=== PATIENT | female | born 1955 | race Caucasian/White ===

== ENCOUNTER 2016-05-13 16:03 | Inpatient (IN) | payer OTHER ==
[~2016-05-13] VITALS: Ht 160 cm; Wt 108.1 kg
[~2016-05-13 16:03] MED LIST: BUPR150CR PO; CARV25TA PO; CLIN1CAP6 PO; CYMB30CA PO; FURO1TAB62 PO; GETGO ROLLING W1 MI1; HUMALOG SQ; LACTCHW3 CHEW; LANTUS2P SQ; LEVO-154 PO; LIOT5TAB3 PO; LOSA100T PO; NAPR250T57 PO; OXYC1TAB63 PO
[2016-05-13 16:05] VITALS: BP 168/78; PULSE 75; RESP 20; TEMP 97.8; O2SAT 99
--- NOTE | 2016-05-13 16:17 | PD ---
HPI Chief Complaint: Skin Problem Time Seen by Provider: 16:17 Travel History International Travel<30 days: No Contact w/Intl Traveler<30days: No Traveled to known affect area: No History of Present Illness HPI 60-year-old female with history of hypothyroidism, hypertension, ejection fraction of 30-35% following a reaction to CT contrast, diabetes, PAD, chronic I lateral lower extremity wounds, presents to the emergency department today for evaluation of severe bilateral lower extremity pain, worsening wounds, and cellulitis. Patient states she cannot get her pain under control. She states she has been taking Lortab as prescribed as well as NSAIDs "by the handful." Patient saw her primary care provider today Dr. Murillo who sent her to the emergency department. Patient was recently hospitalized and discharged April 25 for similar complaint. Patient reports no fever or chills. States that the right lower extremity began having weeping and yellow crusting today. She states the erythema is worsening in the left lower extremity. Patient states her blood glucoses been controlled. She fell at her discharge instructions that she was supposed to. She denies any other symptoms at this time. PFSH Past Medical History Hx Anticoagulant Therapy: No Cancer: No Cardiovascular Problems: Yes (Low EF) Diabetes: Yes Genitourinary: No Hiatal Hernia: Yes Hypertension: Yes Musculoskeletal: No Neurologic: No Psychiatric: No Reproductive: No Respiratory: No Integumentary: Yes (Chronic wounds to LE's) Immunizations Current: Yes Thyroid Disease: Yes (Hypo-) Menopausal: Yes : 2 Para: 2 Past Surgical History Abdominal Surgery: Yes (Umb. hernia repair w/ mesh) Cholecystectomy: Yes Gynecologic Surgery: Yes ((L) oophorectomy ) Social History Alcohol Use: No Tobacco Use: No Substance Use: No Allergies-Medications (Allergen,Severity, Reaction): Coded Allergies: Contrast Media (Verified Allergy, Severe, Flash pulmonary edema , 05/13/16 ) PEANUTS (Verified Allergy, Severe, rash, 05/13/16) Reported Meds & Prescriptions Reported Meds & Active Scripts Active Naprosyn (Naproxen) 250 Mg Tab 250 Mg PO BID Lactinex (Lactobacillus Acidophilus) 1 Chew 1 Tab CHEW TID Clindamycin (Clindamycin HCl) 300 Mg Cap 450 Mg PO Q6H Oxycodone-Acetaminophen 5-325 mg Tab 1 Tab PO Q4H PRN Reported Levothyroxine (Levothyroxine Sodium) 175 Mcg Tab 175 Mcg PO DAILY Liothyronine (Liothyronine Sodium) 5 Mcg Tab 5 Mcg PO DAILY Lasix (Furosemide) 20 Mg Tab 20 Mg PO DAILY Losartan (Losartan Potassium) 100 Mg Tab 100 Mg PO DAILY Cymbalta DR (Duloxetine HCl) 30 Mg Capdr 30 Mg PO BID Wellbutrin SR 12 HR (Bupropion HCl) 150 Mg Tab 150 Mg PO Q12HR Carvedilol 25 Mg Tab 25 Mg PO BID Humalog Inj (Insulin Human Lispro) 1,000 Unit/10 Ml Vial 5-25 Units SQ DIRECTED Max dose at bedtime:( )units; sugars < 70,(0)units; sugars 150-199,(5)units; sugars 200-249,(10)units; sugars 250-299,(15)units; sugars 300-349,(20)units; sugars more than 349,(25)units. Lantus Inj (Insulin Glargine) 1,000 Unit/10 Ml Vial 22 Units SQ BID Review of Systems Except as stated in HPI: all other systems reviewed are Neg Physical Exam Narrative GENERAL: Well-nourished female patient, tearful, sitting up in bed, but in no acute distress SKIN: Warm and dry. Erythema bilateral lower extremity distal to the knee. There are multiple scattered/confluent ulcerative lesions bilateral lower extremities. There is some necrotic appearing tissue within the wounds, primarily in the left distal lower extremity. There is a wound on the distal left second toe this also appears to be necrotic in nature. Distal pulses are palpable. HEAD: Atraumatic. Normocephalic. EYES: Pupils equal and round. No scleral icterus. No injection or drainage. ENT: No nasal bleeding or discharge. Mucous membranes pink and moist. NECK: Trachea midline. No JVD. CARDIOVASCULAR: Regular rate and rhythm. No murmur appreciated. RESPIRATORY: No accessory muscle use. Clear to auscultation. Breath sounds equal bilaterally. GASTROINTESTINAL: Abdomen soft, non-tender, nondistended. Hepatic and splenic margins not palpable. MUSCULOSKELETAL: No obvious deformities. No clubbing. No cyanosis. No edema. NEUROLOGICAL: Awake and alert. No obvious cranial nerve deficits. Motor grossly within normal limits. Normal speech. PSYCHIATRIC: Appropriate mood and affect; insight and judgment normal. Data Data Last Documented VS Vital Signs Date Time Temp Pulse Resp B/P Pulse Ox O2 Delivery O2 Flow Rate FiO2 05/13/16 18:00 76 18 150/81 99 Room Air 05/13/16 16:05 97.8 Orders Hydromorphone Pf Inj (Dilaudid Pf Inj) (05/13/16 16:45) Electrocardiogram (05/13/16 16:32) Complete Blood Count With Diff (05/13/16 16:32) Comprehensive Metabolic Panel (05/13/16 16:32) Act Partial Throm Time (Ptt) (05/13/16 16:32) Lactic Acid Sepsis Protocol (05/13/16 16:32) Phosphorus (Po4) (05/13/16 16:32) Urinalysis - C+S If Indicated (05/13/16 16:32) Blood Culture (05/13/16 16:32) Chest, Single Ap (05/13/16 16:32) Blood Glucose (05/13/16 16:32) Ecg Monitoring (05/13/16 16:32) Iv Access Insert/Monitor (05/13/16 16:32) Oximetry (05/13/16 16:32) Oxygen Administration (05/13/16 16:32) Vancomycin Inj (Vancomycin Inj) (05/13/16 16:32) Piperacil-Tazo 3.375 Gm Premix (Zosyn 3. (05/13/16 16:45) Labs Laboratory Tests Test 05/13/16 16:41 White Blood Count 12.8 TH/MM3 Red Blood Count 4.06 MIL/MM3 Hemoglobin 11.0 GM/DL Hematocrit 32.8 % Mean Corpuscular Volume 80.7 FL Mean Corpuscular Hemoglobin 27.0 PG Mean Corpuscular Hemoglobin 33.5 % Concent Red Cell Distribution Width 13.9 % Platelet Count 390 TH/MM3 Mean Platelet Volume 7.3 FL Neutrophils (%) (Auto) 74.6 % Lymphocytes (%) (Auto) 14.6 % Monocytes (%) (Auto) 8.0 % Eosinophils (%) (Auto) 2.2 % Basophils (%) (Auto) 0.6 % Neutrophils # (Auto) 9.6 TH/MM3 Lymphocytes # (Auto) 1.9 TH/MM3 Monocytes # (Auto) 1.0 TH/MM3 Eosinophils # (Auto) 0.3 TH/MM3 Basophils # (Auto) 0.1 TH/MM3 CBC Comment DIFF FINAL Differential Comment Activated Partial 37.8 SEC Thromboplast Time Sodium Level 129 MEQ/L Potassium Level 4.2 MEQ/L Chloride Level 99 MEQ/L Carbon Dioxide Level 18.7 MEQ/L Anion Gap 11 MEQ/L Blood Urea Nitrogen 70 MG/DL Creatinine 4.50 MG/DL Estimat Glomerular Filtration 10 ML/MIN Rate Random Glucose 134 MG/DL Lactic Acid Level 1.0 mmol/L Calcium Level 8.7 MG/DL Phosphorus Level 5.7 MG/DL Total Bilirubin 0.5 MG/DL Aspartate Amino Transf 14 U/L (AST/SGOT) Alanine Aminotransferase 16 U/L (ALT/SGPT) Alkaline Phosphatase 122 U/L Total Protein 8.2 GM/DL Albumin 3.2 GM/DL [facility] Medical Decision Making Medical Screen Exam Complete: Yes Emergency Medical Condition: Yes Medical Record Reviewed: Yes Differential Diagnosis Recurrent cellulitis versus wounds versus failed outpatient treatment versus sepsis versus elective right abnormality versus PAD Narrative Course 60-year-old female presents to emergency department for evaluation. Patient does have bilateral lower extremity erythema, chronic ulcers distal to the knee. Pain is uncontrolled. CBC is with mild leukocytosis 12.8, mild anemia hemoglobin 11. CMP is a hyponatremia 129. BUN is 70 with a creatinine of 4.5 this is triple since the patient's most recent admission. Lactic acid is 1. Urine has not been collected. Vital signs remained stable. A call has been placed to the [facility] hospitalist for admission. Diagnosis Primary Impression: Cellulitis and abscess of lower extremity Additional Impressions: DM (diabetes mellitus), type 2, uncontrolled, periph vascular complic Diabetic foot ulcer Qualified Code: E11.621 - Diabetic ulcer of both feet associated with type 2 diabetes mellitus Acute kidney failure, unspecified Admitting Information Admitting Physician Requests: Admit Condition: Stable CristóbalLucrecia CAMPOVERDE May 13, 2016 16:17
[2016-05-13] MEDS ORDERED: VANCOMYCIN INJ 1,000 MG in SODIUM CHLOR 0.9% 250 ML INJ 250 ML IV STA (16:32)
[2016-05-13 16:40] VITALS: RESP 18; O2SAT 99
[2016-05-13] MEDS ORDERED: PIPERACIL-TAZO 3.375 GM PREMIX 50 ML IV ONE (16:45)
[2016-05-13] MEDS ORDERED: HYDROmorphone HCL PF 1 MG/ML VIAL IV PUSH ONE (16:45)
[2016-05-13 17:09] LABS: AUTOMATED NEUTROPHIL # 9.6 TH/MM3 (1.8-7.7); BASOPHIL # 0.1 TH/MM3 (0-0.2); BASOPHIL % 0.6 % (0.0-2.0); EOSINOPHIL # 0.3 TH/MM3 (0-0.4); EOSINOPHIL % 2.2 % (0.0-4.0); HEMATOCRIT 32.8 % (35.0-46.0); HEMO FLAGS DIFF FINAL; LYMPH % 14.6 % (9.0-44.0); LYMPHOCYTE # 1.9 TH/MM3 (1.0-4.8); MEAN CELL VOLUME 80.7 FL (80.0-100.0); MEAN CORPUSCULAR HGB CONC 33.5 % (32.0-36.0); NEUT % 74.6 % (16.0-70.0); PLATELET COUNT 390 TH/MM3 (150-450); RED BLOOD COUNT 4.06 MIL/MM3 (4.00-5.30); RED CELL DISTRIBUTION WIDTH 13.9 % (11.6-17.2); WHITE BLOOD COUNT 12.8 TH/MM3 (4.0-11.0)
[2016-05-13 17:19] LABS: APTT (PATIENT) 37.8 SEC (24.3-30.1)
[2016-05-13 17:25] LABS: ANION GAP 11 MEQ/L (5-15); AST (GOT) 14 U/L (15-37); BICARBONATE 18.7 MEQ/L (21.0-32.0); BLOOD UREA NITROGEN 70 MG/DL (7-18); CHLORIDE 99 MEQ/L (98-107); GLOMERULAR FILTRATION RATE 10 ML/MIN (>89); POTASSIUM 4.2 MEQ/L (3.5-5.1); SODIUM (NA) 129 MEQ/L (136-145)
[2016-05-13 17:29] LABS: ALKALINE PHOSPHATASE 122 U/L (45-117); ALT (GPT) 16 U/L (10-53); TOTAL BILIRUBIN ADULT 0.5 MG/DL (0.2-1.0)
[2016-05-13 18:00] VITALS: BP 150/81; PULSE 76; RESP 18; O2SAT 99
--- NOTE | 2016-05-13 18:01 | RADRPT ---
EXAM DATE/TIME: 05/13/2016 17:23 [facility] COMPARISON: CHEST SINGLE AP, November 15, 2014, 5:56. INDICATIONS : Fever and pain MEDICAL HISTORY : Hypothyroidism. Hypertension. Hernia. SURGICAL HISTORY : Cholecystectomy. Umbilical hernia repair. Left oophorectomy. ENCOUNTER: Initial ACUITY: 1 day PAIN SCORE: 10/10 LOCATION: Bilateral chest FINDINGS: A single view of the chest demonstrates the lungs to be symmetrically aerated without evidence of mas s, infiltrate or effusion. The cardiomediastinal contours are unremarkable. Osseous structures are intact. CONCLUSION: No acute disease. Shamar Banuelos MD on May 13, 2016 at 17:58 Board Certified Radiologist. This report was verified electronically.
[2016-05-13] MEDS ORDERED: MAGNESIUM HYDROXIDE SUSP 30 ML CUP PO PRN (18:45)
[2016-05-13] MEDS ORDERED: ONDANSETRON HCL 4 MG/2 ML VIAL IVP PRN (18:45)
[2016-05-13] MEDS ORDERED: NALOXONE HCL 0.4 MG/ML AMP IV PRN (18:45)
[2016-05-13] MEDS ORDERED: PIPERACIL-TAZO 3.375 GM PREMIX 50 ML IV SCH (18:45)
[2016-05-13] MEDS ORDERED: SENNOSIDES 8.6 MG TAB PO PRN (18:45)
[2016-05-13] MEDS ORDERED: BISACODYL 10 MG SUPP PR PRN (18:45)
[2016-05-13] MEDS ORDERED: Vancomycin Consult Pharmacy 1 EA OTHER SCH (18:45)
[2016-05-13] MEDS ORDERED: DEXTROSE 50% IN WATER 50 ML VIAL(D50) IV PUSH PRN (19:00)
[2016-05-13] MEDS ORDERED: GLUCAGON 1 MG/ML VIAL OTHER PRN (19:00)
[2016-05-13 19:05] VITALS: BP 130/71; PULSE 75; RESP 18; O2SAT 98
[2016-05-13] MEDS: HYDROmorphone HCL PF 1 MG/ML VIAL IV PUSH PRN ×2 (19:42→23:43)
[2016-05-13] MEDS ORDERED: VANCOMYCIN 1,000 MG/NS 250 ML IV ONE ×2 (20:00)
[2016-05-13] MEDS: SODIUM CHLORIDE 0.9% FLUSH 5 ML FLUSH FLUSH SCH (20:11)
[2016-05-13] MEDS: HEPARIN SODIUM - SQ 10,000 UNITS/ML VIAL SQ SCH (20:34)
[2016-05-13] MEDS: CARVEDILOL 12.5 MG TAB PO SCH (20:34)
[2016-05-13] MEDS: INSULIN ASPART SUPPLEMENTAL SCALE SQ SCH (20:34)
[2016-05-13] MEDS: buPROPion HCL 150 MG SUSTAINED RELEASE TAB PO SCH (20:52)
--- NOTE | 2016-05-13 22:38 | HHI.HP ---
[facility] Adan Murillo MD Admission Diagnosis BLE cellulitis; diabetic ulcers; ARF Diagnoses: Chief Complaint: Left lower leg swelling, pain Travel History International Travel<30 Days: No Contact w/Intl Traveler <30 Da: No Traveled to Known Affected Are: No History of Present Illness History from patient, ER notes, and review of medical records. Patient reported that she came to the hospital because her left lower extremity has been getting worse with swelling, weeping discharge with foul smelling discharge. She stated that she has had treatments as outpatient and nothing was really improving and therefore finally her doctor had suggested her to come to hospital as well. She states her symptoms started a week before Thanksgiving when she was bit by some insight in that left lower extremity. She initially tried to take care of the wound that resulted from this bite by putting some towels at home and doing self dressing. However this got worse and therefore about 10 days later, she presented to [facility] emergency room. She was admitted at that time to our hospital and was treated with IV antibiotics. She states that she was given vancomycin and Zosyn at that time. She was then discharged on clindamycin. She reports she was also seen by wound care nurse during that hospitalization and she has had Unna boots placed bilateral lower extremity. However the pain from this Unna boots was quite severe on the left side that it was actually removed within 24 hours. Her right Unna boot was there for a few days although there was minimal symptoms on the right at that time. She reports that after this 24 hours of treatment with Unna boot on her left lower extremity, she did not really receive any follow-up wound care. As an outpatient, she was also given Bactrim by her primary doctor. She reports that no matter which antibiotic she was on, the symptoms of the wounds were not really improving. Now that discharge has become more foul- smelling and she is worried that it might be staph infection. The pain from these ulcers are also quite excruciating that she is not eating or drinking well at home. She reports she has been dehydrated because of these. However denies nausea or vomiting. It's mainly sensation of burning and pain from the skin rather than joint pains. She states she was on Narco at home and this was not working at all. Therefore she took multiple doses of Advil/ibuprofen/aspirin on top of Narco to control her pain. She states she usually would be sitting up at night and rocking herself crying because of these severe pains. Her renal function is noted to be acutely worsens today. She denies recent contrast administrations. She states that her last contrast study was about a year ago and at that time she actually went into flash pulmonary edema because of contrast. Since then she never had any workup that required contrast studies. Patient reports she believes she has peripheral arterial disease. She has remote history of smoking. However quit about 15 years ago. She has not been seen by infectious disease doctor or vascular surgeon for these wounds. She was receiving home health care visit appointment in the past 2 weeks. However it was mainly wet-to-dry dressing. Review of Systems Constitutional: COMPLAINS OF: Fatigue, DENIES: Fever, Weight gain, Weight loss , Chills, Dizziness Respiratory: DENIES: Apneas, Cough, Snoring, Wheezing, Hemoptysis, Sputum production, Shortness of breath Cardiovascular: COMPLAINS OF: Lower Extremity Edema, DENIES: Chest pain, Palpitations, Syncope, PND Gastrointestinal: DENIES: Black stools, Bloody stools, Constipation, Diarrhea, Nausea, Vomiting, Difficulty Swallowing Genitourinary: DENIES: Urinary frequency, Urinary incontinence, Urgency, Hematuria, Dysuria, Nocturia Musculoskeletal: DENIES: Joint pain, Muscle aches, Stiffness Integumentary: COMPLAINS OF: Abnormal pigmentation Hematologic/lymphatic: COMPLAINS OF: Bruising Neurologic: DENIES: Abnormal gait Past Family Social History Past Medical History Hypertension Diabetes Cardiomyopathysustained after contrast-induced flash pulmonary edema- latest EF was 30% in March 2016. Obesity Hypothyroidism History of dermoid cyststatus post left oophorectomy 25 years ago Past Surgical History Left oophorectomy for dermoid cyst removal Cholecystectomy Hernia repair Reported Medications Patient's med list on EMRreviewed Allergies: Coded Allergies: Contrast Media (Verified Allergy, Severe, Flash pulmonary edema , 05/13/16 ) PEANUTS (Verified Allergy, Severe, rash, 05/13/16) Social History Denies smoking/alcohol abuse/drug abuse. Physical Exam Vital Signs Vital Signs Date Time Temp Pulse Resp B/P Pulse Ox O2 Delivery O2 Flow Rate FiO2 05/13/16 19:05 75 18 130/71 98 Room Air 05/13/16 18:00 76 18 150/81 99 Room Air 05/13/16 17:14 18 05/13/16 16:40 18 99 Room Air 05/13/16 16:40 99 Room Air 05/13/16 16:24 81 18 05/13/16 16:05 97.8 75 20 168/78 99 Room Air Physical Exam GENERAL: This is a well-nourished, well-developed patient, in no apparent distress. SKIN: Left lower extremity with venous stasis ulcers, weeping wound with foul- smelling discharge, some necrotic spots. HEAD: Atraumatic. Normocephalic. No temporal or scalp tenderness. EYES: No scleral icterus. No injection or drainage. ENT: Nose without bleeding, purulent drainage or septal hematoma. Airway patent. NECK: Trachea midline. No JVD CARDIOVASCULAR: Regular rate and rhythm without murmurs, gallops, or rubs. RESPIRATORY: Clear to auscultation. Breath sounds equal bilaterally. No wheezes , rales, or rhonchi. GASTROINTESTINAL: Abdomen soft, non-tender, nondistended No guarding. MUSCULOSKELETAL: Extremities without clubbing, cyanosis, or edema. . No calf tenderness. NEUROLOGICAL: Awake and alert. Motor and sensory grossly within normal limits. Normal speech. Laboratory Laboratory Tests Test 05/13/16 16:41 White Blood Count 12.8 Red Blood Count 4.06 Hemoglobin 11.0 Hematocrit 32.8 Mean Corpuscular Volume 80.7 Mean Corpuscular Hemoglobin 27.0 Mean Corpuscular Hemoglobin 33.5 Concent Red Cell Distribution Width 13.9 Platelet Count 390 Mean Platelet Volume 7.3 Neutrophils (%) (Auto) 74.6 Lymphocytes (%) (Auto) 14.6 Monocytes (%) (Auto) 8.0 Eosinophils (%) (Auto) 2.2 Basophils (%) (Auto) 0.6 Neutrophils # (Auto) 9.6 Lymphocytes # (Auto) 1.9 Monocytes # (Auto) 1.0 Eosinophils # (Auto) 0.3 Basophils # (Auto) 0.1 CBC Comment DIFF FINAL Differential Comment Activated Partial 37.8 Thromboplast Time Sodium Level 129 Potassium Level 4.2 Chloride Level 99 Carbon Dioxide Level 18.7 Anion Gap 11 Blood Urea Nitrogen 70 Creatinine 4.50 Estimat Glomerular Filtration 10 Rate Random Glucose 134 Lactic Acid Level 1.0 Calcium Level 8.7 Phosphorus Level 5.7 Total Bilirubin 0.5 Aspartate Amino Transf 14 (AST/SGOT) Alanine Aminotransferase 16 (ALT/SGPT) Alkaline Phosphatase 122 Total Protein 8.2 Albumin 3.2 Date/Time Procedure Status Source Growth 05/13/16 16:41 Aerobic Blood Culture Received Blood Peripheral Pending 05/13/16 16:41 Anaerobic Blood Culture Received Blood Peripheral Pending Result Diagram: 05/13/16 1641 05/13/16 1641 Imaging Last 24 hours Impressions Chest X-Ray 05/13/16 1632 Signed Impressions: Service Date/Time: Friday, May 13, 2016 17:23 - CONCLUSION: No acute disease. Shamar Banuelos MD Assessment and Plan Problem List: (1) Cellulitis and abscess of lower extremity ICD Code: L02.419 Status: Acute (2) Acute kidney failure, unspecified ICD Code: N17.9 Status: Acute Assessment and Plan Impression: LLE non healing venous stasis ulcers with cellulitis/ soft tissue infection Acute renal failure is likely due to dehydration. However possibility of NSAID- induced as well as patient was taking quite a bit of it to control her pain. Leukocytosis with left shift Mild hyponatremia Plan: Patient was given vancomycin, and Zosyn in ER. Was switched to linezolid 600 mg IV every 12 hours due to renal failure. Continue Zosyn per creatinine clearance. Will follow blood culture results. Infectious disease consult for guidance with antibiotic choice and duration. Podiatry/wound care consult. Likely this patient will need treatment with Unna boot for longer duration and as outpatient wound care therapy closely. Vascular surgery consult Pain control. Patient has history of significant cardiomyopathy. Therefore we'll be cautious with IV hydration. Hydrate patient orally for now for her renal failure. Nephrology has been consulted as well. Watch for fluid overload. Hold losartan/ lasix for now Resume rest of her home medications. DVT prophylaxis with heparin. GI prophylaxis on pantoprazole. Discussed Condition With Patient, her nurse. Physician Certification 2 Midnight Certification Type: Admission for Inpatient Services Order for Inpatient Services The services are ordered in accordance with Medicare regulations or non- Medicare payer requirements, as applicable. In the case of services not specified as inpatient-only, they are appropriately provided as inpatient services in accordance with the 2-midnight benchmark. Estimated LOS (days): 3 days is the estimated time the patient will need to remain in the hospital, assuming treatment plan goals are met and no additional complications. Post-Hospital Plan: Home Valery Ang MD May 13, 2016 22:38
[2016-05-13 23:00] VITALS: BP 128/58; PULSE 70; RESP 16; TEMP 98.7; O2SAT 97
[2016-05-14] MEDS: PIPERACIL-TAZO 2.25 GM PREMIX 50 ML IV SCH ×2 (00:41→10:03)
[2016-05-14] MEDS: oxyCODONE/ACETAMINOPHEN 10 MG/325 MG TAB PO PRN ×5 (01:43→22:29)
[2016-05-14 04:00] VITALS: BP_SYST 122; BP_SYST 123; BP_DIAS 57; BP_DIAS 65; PULSE 70; PULSE 79; RESP 16; RESP 20; TEMP 97.7; TEMP 98.8; O2SAT 96; O2SAT 99
[2016-05-14] MEDS: HYDROmorphone HCL PF 1 MG/ML VIAL IV PUSH PRN ×4 (04:00→18:09)
[2016-05-14] MEDS: LEVOTHYROXINE SODIUM 100 MCG TAB PO SCH (05:52)
[2016-05-14] MEDS: LEVOTHYROXINE SODIUM 75 MCG TAB PO SCH (05:52)
[2016-05-14] MEDS: INSULIN ASPART SUPPLEMENTAL SCALE SQ SCH ×4 (06:17→22:30)
[2016-05-14 08:00] VITALS: BP 120/58; PULSE 77; RESP 20; TEMP 97.9; O2SAT 96
[2016-05-14 08:16] LABS: AUTOMATED NEUTROPHIL # 6.9 TH/MM3 (1.8-7.7); BASOPHIL % 0.3 % (0.0-2.0); EOSINOPHIL # 0.3 TH/MM3 (0-0.4); EOSINOPHIL % 3.7 % (0.0-4.0); HEMATOCRIT 34.2 % (35.0-46.0); HEMO FLAGS DIFF FINAL; LYMPH % 11.2 % (9.0-44.0); MEAN CELL VOLUME 80.8 FL (80.0-100.0); MEAN CORPUSCULAR HEMOGLOBIN 26.9 PG (27.0-34.0); MEAN CORPUSCULAR HGB CONC 33.4 % (32.0-36.0); MONO % 6.3 % (0.0-8.0); NEUT % 78.5 % (16.0-70.0); PLATELET COUNT 366 TH/MM3 (150-450); RED BLOOD COUNT 4.23 MIL/MM3 (4.00-5.30); WHITE BLOOD COUNT 8.8 TH/MM3 (4.0-11.0)
[2016-05-14 08:17] LABS: ALT (GPT) 16 U/L (10-53); ANION GAP 11 MEQ/L (5-15); BICARBONATE 19.1 MEQ/L (21.0-32.0); BLOOD UREA NITROGEN 66 MG/DL (7-18); CHLORIDE 102 MEQ/L (98-107); GLOMERULAR FILTRATION RATE 12 ML/MIN (>89); POTASSIUM 4.5 MEQ/L (3.5-5.1); SODIUM (NA) 132 MEQ/L (136-145)
[2016-05-14 08:20] LABS: ALKALINE PHOSPHATASE 111 U/L (45-117); AST (GOT) 11 U/L (15-37); TOTAL BILIRUBIN ADULT 0.4 MG/DL (0.2-1.0); VANCOMYCIN TROUGH 22.4 MCG/ML (5.0-10.0)
[2016-05-14] MEDS ORDERED: NON-FORMULARY DRUG (Levothyroxine 175 MCG) PO SCH (09:00)
[2016-05-14] MEDS: LINEZOLID 600 MG PREMIX 300 ML IV SCH ×2 (10:02→22:29)
[2016-05-14] MEDS: HEPARIN SODIUM - SQ 10,000 UNITS/ML VIAL SQ SCH ×2 (10:03→22:30)
[2016-05-14] MEDS: CARVEDILOL 12.5 MG TAB PO SCH ×2 (10:03→22:29)
[2016-05-14] MEDS: LACTOBACILLUS ACIDOPHILUS TAB PO SCH ×3 (10:03→16:10)
[2016-05-14] MEDS: buPROPion HCL 150 MG SUSTAINED RELEASE TAB PO SCH ×2 (10:03→22:29)
[2016-05-14] MEDS: LIOTHYRONINE SODIUM 5 MCG TAB PO SCH (10:03)
[2016-05-14] MEDS: SODIUM CHLORIDE 0.9% FLUSH 5 ML FLUSH FLUSH SCH ×2 (10:04→22:30)
--- NOTE | 2016-05-14 11:04 | PD.CONS ---
History of Present Illness Service Infectious Disease Consult Requested By Dr Yunier Ang Reason for Consult Evaluate patient with BLE cellulitis, failed outpatient treatment Primary Care Physician Adan Murillo MD Diagnoses: History of Present Illness Patient seen and examined. Records reviewed. Patient is a 60-year-old female, admitted to the hospital for further evaluation of severe lower extremity swelling with extensive ulcers, with significant amount of drainage. Patient was recently hospitalized around [facility] with cellulitis and draining wounds in both legs. She was treated for cellulitis, and stasis ulcers. Apparently an Unna boot was tried but it was not tolerated so it was removed. She was discharge on April 25, and according to the patient there was no specific wound care orders done as an outpatient. She had home health nurses coming to her house but it was not regular. She continued to have the same problem with pain and swelling and draining wound, and about 4 days prior to admission she started noticing a smell from her care physician, and she was given Bactrim which offered some improvement but it started draining again profusely, and she was having significant amount of pain. She presented to the hospital for further evaluation and treatment. Patient denies any fever or chills or sweats. She has not had any respiratory complain as far as congestion cough or sore throat. Or any diarrhea or urinary complaints. Patient has been seeing a computer technical support specialist for an ulcer that she developed on her second and third toes on the left foot. Since admission she has not been febrile. Her initial WBC count was 12,000. She is complaining of severe pain in her lower extremity. Patient states that she does not tolerate leg elevation very well because of the severe pain. Patient also has known peripheral vascular disease, and she had an arteriogram done and this was in 2014 and she was found to have several lesions. However during that time she had a severe reaction to the contrast media and she went into pulmonary edema. An patient has been postponing any further evaluation or intervention done to treat her peripheral vascular disease. It was felt that she would be better off getting a surgical revascularization procedure rather than procedure done by an interventional radiologist. Infectious disease consultation has been requested on this admission for antibiotic recommendation on this patient with cellulitis and stasis ulcers. Review of Systems Constitutional: COMPLAINS OF: Chills, DENIES: Fever, Night Sweats Eyes: DENIES: Eye pain Ears, nose, mouth, throat: DENIES: Nasal discharge, Oral lesions, Throat pain, Ear Pain, Odynophagia Respiratory: COMPLAINS OF: Shortness of breath, DENIES: Cough Cardiovascular: COMPLAINS OF: Lower Extremity Edema, DENIES: Chest pain, Palpitations, Syncope Gastrointestinal: DENIES: Abdominal pain, Diarrhea, Nausea, Vomiting, Difficulty Swallowing Genitourinary: DENIES: Urinary frequency, Dysuria Musculoskeletal: COMPLAINS OF: Muscle aches, Joint Swelling Integumentary: COMPLAINS OF: Rash Immunologic/allergic: DENIES: Urticaria Neurologic: DENIES: Headache Psychiatric: COMPLAINS OF: Depression Past Family Social History Allergies: Coded Allergies: Contrast Media (Verified Allergy, Severe, Flash pulmonary edema , 05/13/16 ) PEANUTS (Verified Allergy, Severe, rash, 05/13/16) Past Medical History PVD - has CTA last year and has lesions that could be corrected Hypertension Diabetes Cardiomyopathysustained after contrast-induced flash pulmonary edema- latest EF was 30% in March 2016. Obesity Hypothyroidism History of dermoid cyststatus post left oophorectomy 25 years ago Past Surgical History Left oophorectomy for dermoid cyst removal Cholecystectomy Hernia repair Active Ordered Medications Dulcolax Wellbutrin Coreg Heparin Dilaudid Insulin Lactinex Synthroid Zyvox Cytomel MOM Zofran Percocet Zosyn Senokot Vanco IV x 1 dose 05/13 Social History Denies smoking Denies alcohol abuse Denies illicit drug use Physical Exam Vital Signs Vital Signs Date Time Temp Pulse Resp B/P Pulse Ox O2 Delivery O2 Flow Rate FiO2 05/14/16 08:00 97.9 77 20 120/58 96 05/14/16 04:00 97.7 70 16 123/57 99 05/13/16 23:00 98.7 70 16 128/58 97 05/13/16 19:05 75 18 130/71 98 Room Air 05/13/16 18:00 76 18 150/81 99 Room Air 05/13/16 17:14 18 05/13/16 16:40 18 99 Room Air 05/13/16 16:40 99 Room Air 05/13/16 16:24 81 18 05/13/16 16:05 97.8 75 20 168/78 99 Room Air Physical Exam GENERAL: This is a well-nourished, well-developed female, awake and alert, up in chair, very emotional, not in respiratory distress. SKIN: Cool and dry. No generalized rash or ecchymosis. HEAD: Atraumatic. Normocephalic. No temporal or scalp tenderness. EYES: Melstone conjunctivae, no petechia or hemorrhage. Pupils equal round and reactive. Extraocular motions intact. No scleral icterus. No injection or drainage. ENT: Nose without bleeding, or purulent drainage. Moist oral mucosa. No oral thrush. Throat without erythema, or exudate. Uvula midline. Airway patent. NECK: Trachea midline. No JVD or lymphadenopathy. Supple, nontender, no meningeal signs. CARDIOVASCULAR: Regular rate and rhythm. No rubs. Soft heart sounds, soft murmur at base of the heart RESPIRATORY: Clear to auscultation. Breath sounds equal bilaterally. No wheezes , rales, or rhonchi. GASTROINTESTINAL: Abdomen soft, non-tender, nondistended. No guarding. MUSCULOSKELETAL: Extremities without clubbing. Has some light ourplish color of toes on R foot. Has edema BLE. Has many small ulcers in her L leg with slough. In her LLE - has extensive stasis ulcers around whole leg in distal 2/3 of leg with necrotic tissue and yellow green slough cyanosis. Has significant clear serous drainage form all her wounds with smell. , No joint tenderness, effusion, or edema noted. No calf tenderness. Negative Homans sign bilaterally. Has ulcer in L foot 2nd and 3rd toes with necrotic tissue NEUROLOGICAL: Awake and alert. Cranial nerves II through XII intact. Motor and sensory grossly within normal limits. PSYCH: Very emotional, tearful, cooperative LINE: Peripheral IV with no evidence of infection Laboratory Laboratory Tests Test 05/13/16 05/14/16 16:41 07:20 White Blood Count 12.8 8.8 Red Blood Count 4.06 4.23 Hemoglobin 11.0 11.4 Hematocrit 32.8 34.2 Mean Corpuscular Volume 80.7 80.8 Mean Corpuscular Hemoglobin 27.0 26.9 Mean Corpuscular Hemoglobin 33.5 33.4 Concent Red Cell Distribution Width 13.9 14.0 Platelet Count 390 366 Mean Platelet Volume 7.3 7.2 Neutrophils (%) (Auto) 74.6 78.5 Lymphocytes (%) (Auto) 14.6 11.2 Monocytes (%) (Auto) 8.0 6.3 Eosinophils (%) (Auto) 2.2 3.7 Basophils (%) (Auto) 0.6 0.3 Neutrophils # (Auto) 9.6 6.9 Lymphocytes # (Auto) 1.9 1.0 Monocytes # (Auto) 1.0 0.6 Eosinophils # (Auto) 0.3 0.3 Basophils # (Auto) 0.1 0.0 CBC Comment DIFF FINAL DIFF FINAL Differential Comment Activated Partial 37.8 Thromboplast Time Sodium Level 129 132 Potassium Level 4.2 4.5 Chloride Level 99 102 Carbon Dioxide Level 18.7 19.1 Anion Gap 11 11 Blood Urea Nitrogen 70 66 Creatinine 4.50 3.75 Estimat Glomerular Filtration 10 12 Rate Random Glucose 134 190 Lactic Acid Level 1.0 Calcium Level 8.7 8.9 Phosphorus Level 5.7 Total Bilirubin 0.5 0.4 Aspartate Amino Transf 14 11 (AST/SGOT) Alanine Aminotransferase 16 16 (ALT/SGPT) Alkaline Phosphatase 122 111 Total Protein 8.2 7.9 Albumin 3.2 2.9 Vancomycin Level Trough 22.4 Date/Time Procedure Status Source Growth 05/13/16 16:41 Aerobic Blood Culture Received Blood Peripheral Pending 05/13/16 16:41 Anaerobic Blood Culture Received Blood Peripheral Pending Result Diagram: 05/14/16 0720 05/14/16 0720 Imaging RADIOLOGY STUDIES/FILMS REVIEWED Chest X-Ray 05/13/16 1632 Signed Impressions: Service Date/Time: Friday, May 13, 2016 17:23 - CONCLUSION: No acute disease. Shamar Banuelos MD Assessment and Plan Assessment and Plan IMPRESSION BLE cellulitis with stasis ulcers severe on the LLE - can have PSAE as offending pathiogen in addition to the usual GPC pathogens Has known PVD Cardiomyopathy Severe allergy to contrast media RECOMMENDATION Will use Cefepime Continue Zyvox for GPC coverage Add Flagyl Needs wound care consult to assist with her wounds and close follow-up whenn she gets D/C Needs debridement of the wound, the aggressive wound care Vascular surgery has been consulted for her known PVD that has not been treated Leg elevation and some form of edema control Monitor progress Will determine course of Abx depending on her progress and results or work-up as well as if any surgical intervention is done I will follow along with you Thank you for this consultation Discussed Condition With Explained plan to the patient Davida Quispe MD May 14, 2016 11:04
[2016-05-14 12:00] VITALS: BP 123/58; PULSE 73; RESP 20; TEMP 97.8; O2SAT 98
[2016-05-14] MEDS: SODIUM BICARBONATE 650 MG TAB PO SCH ×2 (12:02→22:30)
[2016-05-14] MEDS: CEFEPIME INJ 2,000 MG in SODIUM CHLORIDE 0.9% INJ 100 ML IV SCH (13:58)
--- NOTE | 2016-05-14 14:57 | HHI.PR ---
Subjective Remarks Patient seen today around noon. She reports that bilateral lower extremity pain continues very severe. She denies any chest pain, shortness of breath, lightheadedness dizziness. She did have some nausea previously when taking her medications on an empty stomach, however this has improved. Objective Vital Signs Date Time Temp Pulse Resp B/P Pulse Ox O2 Delivery O2 Flow Rate FiO2 05/14/16 12:00 97.8 73 20 123/58 98 05/14/16 08:00 97.9 77 20 120/58 96 05/14/16 04:00 97.7 70 16 123/57 99 05/13/16 23:00 98.7 70 16 128/58 97 05/13/16 19:05 75 18 130/71 98 Room Air 05/13/16 18:00 76 18 150/81 99 Room Air 05/13/16 17:14 18 05/13/16 16:40 18 99 Room Air 05/13/16 16:40 99 Room Air 05/13/16 16:24 81 18 05/13/16 16:05 97.8 75 20 168/78 99 Room Air I/O 05/13/16 05/13/16 05/13/16 05/14/16 05/14/16 05/14/16 06:59 14:59 22:59 06:59 14:59 22:59 Intake Total 720 ml 376 ml Balance 720 ml 376 ml Intake Oral 720 ml IV Total 376 ml # Voids 2 Result Diagram: 05/14/16 0720 05/14/16 0720 Objective Remarks GENERAL: Patient sitting up in recliner. Appears in pain. Alert and oriented 3. SKIN: Warm and dry. HEAD: Normocephalic. EYES: No scleral icterus. No injection or drainage. NECK: Supple, trachea midline. No JVD or lymphadenopathy. CARDIOVASCULAR: Regular rate and rhythm without murmurs, gallops, or rubs. RESPIRATORY: Breath sounds equal bilaterally. No accessory muscle use. GASTROINTESTINAL: Abdomen soft, non-tender, nondistended. MUSCULOSKELETAL: No cyanosis, or edema. BACK: Nontender without obvious deformity. No CVA tenderness. A/P Assessment and Plan //Bilateral nonhealing venous stasis ulcers. Left worse than right. //Bilateral lower extremity cellulitis. Acute on chronic. //Severe bilateral lower extremity pain. Acute on chronic. //Leukocytosis with left shift. Acute. Resolved . -Failure of outpatient treatment. -Podiatry, vascular surgery, infectious diseases consulted. -Continue pain control. -Increase Dilaudid. Continue antibiotics as per infectious disease. Appreciate assistance. //Acute kidney injury. Retina and 4.5 on admission. Most recent baseline 1.15 on April 24. -Likely secondary to NSAIDs in conjunction with losartan. Patient says she was taking "handfuls" of NSAIDs. -Continue to hold losartan, Lasix. Avoid nephrotoxins Nephrology following. Appreciate assistance. -Due to history of CHF with ejection fraction 30%, as well as bilateral lower extremity edema, hydrate orally -05/14. Creatinine appears to be improving. Urinalysis pending. Continue to monitor. //History of cardiomyopathy. Ejection fraction 30%. -Watch fluid status closely. -Continue Coreg -Hold Lasix due to kidney injury. //Diabetes. is on long-acting insulin at home. We will hold this due to kidney failure. -Glucose currently controlled on sliding scale alone. Continue to monitor. //Hyponatremia. 128 on admission. Improving. Continue sodium bicarbonate. Likely secondary to kidney failure. -Appreciate nephrology assistance. //Hypothyroidism. Continue Synthroid. //Prophylaxis. Subcutaneous heparin Discharge Planning Physical therapy consulted. Pending workup bypass surgery, infectious disease, podiatry. Appreciate case management assistance. Jeffrey Chappell MD May 14, 2016 14:57
--- NOTE | 2016-05-14 15:01 | PD.CONS ---
HPI Service Nephrology Consult Requested By Reason for Consult Acute renal failure Primary Care Physician Adan Murillo MD History of Present Illness This is a 60 y/o female who was previously admitted for cellulitis of lower extremities. She was discharged home with oral antibiotics and home health care. Apparently the wounds became worse, thus she sought medical care. PMH of obesity, DM II, hypothyroidism, PVD, and depression. She also has cardiomyopathy with an EF 30% due to allergic reaction with flash pulmonary edema related to IV contrast administration during last hospitalization. She was having CT angio of her legs to evaluate severity of vascular disease. While home, the pain was so severe it caused nausea with decreased oral intake for days. She was taking large doses of Motrin, Aleve, and new prescription of naproxen several times throughout the day. On exam she is awake and appears in pain. She has very severe ulcerated lesions with dry crusted malodorous areas over most of her lower legs, left worse than right. She also has her 2nd and 3rd toe on left side with ulcers. Apparently this started only a few weeks to one month ago, began with a "bug bite". Her creatinine was normal on 04/23 at 0.91. Measured 4.5 upon arrival, has improved to 3.75 with IVF. She is a full code. We were consulted for management. (Yulisa Vega) Review of Systems Constitutional: COMPLAINS OF: Fatigue, DENIES: Fever Cardiovascular: COMPLAINS OF: Dyspnea on Exertion, Lower Extremity Edema Gastrointestinal: COMPLAINS OF: Nausea Musculoskeletal: COMPLAINS OF: Muscle aches Integumentary: COMPLAINS OF: Abnormal pigmentation (Yulisa Vega) Past Family Social History Allergies: Coded Allergies: Contrast Media (Verified Allergy, Severe, Flash pulmonary edema , 05/13/16 ) PEANUTS (Verified Allergy, Severe, rash, 05/13/16) Past Medical History PVD - has CTA last year and has lesions that could be corrected Hypertension Diabetes Cardiomyopathysustained after contrast-induced flash pulmonary edema- latest EF was 30% in March 2016. Obesity Hypothyroidism History of dermoid cyststatus post left oophorectomy 25 years ago Past Surgical History Left oophorectomy for dermoid cyst removal Cholecystectomy Hernia repair Reported Medications Naprosyn (Naproxen) 250 Mg Tab 250 Mg PO BID Lactinex (Lactobacillus Acidophilus) 1 Chew 1 Tab CHEW TID Clindamycin (Clindamycin HCl) 300 Mg Cap 450 Mg PO Q6H Oxycodone-Acetaminophen 5-325 mg Tab 1 Tab PO Q4H PRN Levothyroxine (Levothyroxine Sodium) 175 Mcg Tab 175 Mcg PO DAILY Liothyronine (Liothyronine Sodium) 5 Mcg Tab 5 Mcg PO DAILY Lasix (Furosemide) 20 Mg Tab 20 Mg PO DAILY Losartan (Losartan Potassium) 100 Mg Tab 100 Mg PO DAILY Cymbalta DR (Duloxetine HCl) 30 Mg Capdr 30 Mg PO BID Wellbutrin SR 12 HR (Bupropion HCl) 150 Mg Tab 150 Mg PO Q12HR Carvedilol 25 Mg Tab 25 Mg PO BID Humalog Inj (Insulin Human Lispro) 1,000 Unit/10 Ml Vial 5-25 Units SQ DIRECTED Max dose at bedtime:( )units; sugars < 70,(0)units; sugars 150-199,(5)units; sugars 200-249,(10)units; sugars 250-299,(15)units; sugars 300-349,(20)units; sugars more than 349,(25)units. Lantus Inj (Insulin Glargine) 1,000 Unit/10 Ml Vial 22 Units SQ BID Active Ordered Medications Current Medications Medications (Trade) Dose Ordered Sig/Virgilio Route Start Time Stop Time Status Last Admin (NS Flush) 2 ml UNSCH PRN FLUSH 05/13/16 18:45 (NS Flush) 2 ml BID FLUSH 05/13/16 21:00 05/14/16 10:04 (Zofran Inj) 4 mg Q6H PRN IVP 05/13/16 18:45 (Dulcolax Supp) 10 mg DAILY PRN OR 05/13/16 18:45 (Milk Of Magnesia Liq) 30 ml Q12H PRN PO 05/13/16 18:45 (Senokot) 17.2 mg Q12H PRN PO 05/13/16 18:45 (Heparin Inj) 5,000 units Q12H SQ 05/13/16 20:00 05/14/16 10:03 (Narcan Inj) 0.4 mg UNSCH PRN IV 05/13/16 18:45 (Wellbutrin Sr) 150 mg Q12HR PO 05/13/16 21:00 05/14/16 10:03 (Coreg) 25 mg BID PO 05/13/16 21:00 05/14/16 10:03 (D50w (Vial) Inj) 25 ml UNSCH PRN IV PUSH 05/13/16 19:00 (Glucagon Inj) 1 mg UNSCH PRN OTHER 05/13/16 19:00 (Synthroid) 75 mcg DAILY@06 PO 05/14/16 06:00 05/14/16 05:52 (Synthroid) 100 mcg DAILY@06 PO 05/14/16 06:00 05/14/16 05:52 Hydromorphone HCl 1 mg 1 mg Q4H PRN IV PUSH 05/13/16 19:30 05/14/16 13:59 (Zyvox 600 Mg Premix) 300 ml @ 300 mls/hr Q12H IV 05/14/16 09:00 05/14/16 10:02 (Cytomel) 5 mcg DAILY PO 05/14/16 09:00 05/14/16 10:03 (Lactinex) 1 tab TID PO 05/14/16 09:00 05/14/16 12:02 (Percocet 10-325 Mg) 1 tab Q4H PRN PO 05/13/16 23:15 05/14/16 12:02 Sodium Bicarbonate 650 mg 650 mg Q12HR PO 05/14/16 10:30 05/16/16 23:15 05/14/16 12:02 (Maxipime Inj/NS Inj) 100 ml @ 200 mls/hr Q24H IV 05/14/16 12:00 05/14/16 13:58 Family History No hx of renal disorders Social History former smoker NO ETOH or drug use , lives with 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[place] [employer] Independent full code (Yulisa Vega) Physical Exam Vital Signs Vital Signs Date Time Temp Pulse Resp B/P Pulse Ox O2 Delivery O2 Flow Rate FiO2 05/14/16 12:00 97.8 73 20 123/58 98 05/14/16 08:00 97.9 77 20 120/58 96 05/14/16 04:00 97.7 70 16 123/57 99 05/13/16 23:00 98.7 70 16 128/58 97 05/13/16 19:05 75 18 130/71 98 Room Air 12/20/16 18:00 76 18 150/81 99 Room Air 05/13/16 17:14 18 05/13/16 16:40 18 99 Room Air 05/13/16 16:40 99 Room Air 05/13/16 16:24 81 18 05/13/16 16:05 97.8 75 20 168/78 99 Room Air Physical Exam Middle aged obese female, awake/alert but appears in pain CV: S1/S2, regular rate, II/ systolic murmur Lungs: clear in all ellis Abd: obese, soft, non tender Ext: trace edema non pitting Skin: ulcerated lesions over most of lower extremities, left worse than right; left 2nd and 3rd digit also edematous with draining lesions cap refill 2 sec Laboratory Laboratory Tests Test 05/13/16 05/14/16 16:41 07:20 White Blood Count 12.8 8.8 Red Blood Count 4.06 4.23 Hemoglobin 11.0 11.4 Hematocrit 32.8 34.2 Mean Corpuscular Volume 80.7 80.8 Mean Corpuscular Hemoglobin 27.0 26.9 Mean Corpuscular Hemoglobin 33.5 33.4 Concent Red Cell Distribution Width 13.9 14.0 Platelet Count 390 366 Mean Platelet Volume 7.3 7.2 Neutrophils (%) (Auto) 74.6 78.5 Lymphocytes (%) (Auto) 14.6 11.2 Monocytes (%) (Auto) 8.0 6.3 Eosinophils (%) (Auto) 2.2 3.7 Basophils (%) (Auto) 0.6 0.3 Neutrophils # (Auto) 9.6 6.9 Lymphocytes # (Auto) 1.9 1.0 Monocytes # (Auto) 1.0 0.6 Eosinophils # (Auto) 0.3 0.3 Basophils # (Auto) 0.1 0.0 CBC Comment DIFF FINAL DIFF FINAL Differential Comment Activated Partial 37.8 Thromboplast Time Sodium Level 129 132 Potassium Level 4.2 4.5 Chloride Level 99 102 Carbon Dioxide Level 18.7 19.1 Anion Gap 11 11 Blood Urea Nitrogen 70 66 Creatinine 4.50 3.75 Estimat Glomerular Filtration 10 12 Rate Random Glucose 134 190 Lactic Acid Level 1.0 Calcium Level 8.7 8.9 Phosphorus Level 5.7 Total Bilirubin 0.5 0.4 Aspartate Amino Transf 14 11 (AST/SGOT) Alanine Aminotransferase 16 16 (ALT/SGPT) Alkaline Phosphatase 122 111 Total Protein 8.2 7.9 Albumin 3.2 2.9 Vancomycin Level Trough 22.4 Date/Time Procedure Status Source Growth 05/13/16 16:41 Aerobic Blood Culture - Preliminary Resulted Blood Peripheral NO GROWTH IN 1 DAY 05/13/16 16:41 Anaerobic Blood Culture - Preliminary Resulted Blood Peripheral NO GROWTH IN 1 DAY (Yulisa Vega) Result Diagram: 05/14/16 0720 05/14/16 0720 Imaging Last 72 hours Impressions Chest X-Ray 05/13/16 1632 Signed Impressions: Service Date/Time: Friday, May 13, 2016 17:23 - CONCLUSION: No acute disease. Shamar Banuelos MD (Yulisa Vega) Assessment and Plan Problem List: (1) Acute kidney failure, unspecified Plan: In a patient with normal renal function at baseline by history, JAYLAN likely due to dehydration and overuse of NSAIDs she is off all NSAIDS at this time K acceptable slight metabolic acidosis, will begin oral bicarbonate she is on IVF, I will continue cautiously as hx of CHF, but renal function has improved some with the fluids follow labs daily I will obtain renal US obtain UA for analysis, monitor output obtain urine electrolytes maintain BP < 140/80 avoid nephrotoxins and renally dose medications when appropriate phosphorus elevated, I have started Renvela tid with meals (2) DM type 2, uncontrolled, with neuropathy Plan: She was taken off metformin last admission now on sliding scale insulin, titrate insulin therapy as needed obtain A1c (3) Cellulitis and abscess of lower extremity Plan: ID following and managing antibiotics was on Vancomycin and Zosyn, changed to cefepime and Linezolid monitor clinically wound care and vascular have been consulted to assist as well prn pain control, I will add Neurontin (4) PVD (peripheral vascular disease) Plan: severe per previous admission notes, multiple areas that are not able to be corrected (Yulisa Vega) Assessment and Plan patient was seen and examined. She has very extensive wounds on her lower extremities, worse on the left leg. She says that they started after bug bites. Record reviewed. JAYLAN could be due to use of NSAIDs along with intravascular volume depletion. Avoid NSAIDs. Avoid any other nephrotoxic agents. Cautious hydration. GFR appears to have improved slightly. (eBny Graves MD) Yulisa Vega [facility] May 14, 2016 15:01 Beny Graves MD May 14, 2016 17:46
--- NOTE | 2016-05-14 15:23 | RADRPT ---
EXAM DATE/TIME: 05/14/2016 14:30 [facility] COMPARISON: US KIDNEY/RENAL/BLADDER, April 19, 2016, 15:19. INDICATIONS : Left lower extremity swelling. MEDICAL HISTORY : Hypothyroidism. Hypertension. Hernia, hiatal. Diabetes. Rubella. Anxiety. SURGICAL HISTORY : Cholecystectomy. Umbilical hernia repair. Left oophorectomy. ENCOUNTER: Subsequent ACUITY: 2 months PAIN SCORE: 10/10 LOCATION: Left leg. TECHNIQUE: Venous ultrasound of the leg was performed from the inguinal ligament to the proximal calf. Real-mookie e, color Doppler and spectral tracing, compression and augmentation techniques were used. FINDINGS: There is normal compressibility of the deep venous system from the inguinal region to the proximal ca lf. No echogenic clot is seen in the lumen of the common femoral, femoral, popliteal, and posterior tibial veins. There is a normal response of the venous system to proximal and distal augmentation an d respiration. CONCLUSION: 1. No DVT identified. 2. No abscess seen in the subcutaneous soft tissues Jose Rogers MD on May 14, 2016 at 15:21 Board Certified Radiologist. This report was verified electronically.
[2016-05-14 16:00] VITALS: BP 117/65; PULSE 76; RESP 20; TEMP 98.2; O2SAT 97
[2016-05-14] MEDS ORDERED: oxyCODONE/ACETAMINOPHEN 7.5 MG/325 MG TAB PO PRN (16:15)
--- NOTE | 2016-05-14 16:22 | MB ---
cc: KENTRELL SOLORIO DO DATE OF CONSULTATION: 05/14/2016 TYPE OF CONSULTATION Vascular surgery. REASON FOR CONSULTATION Bilateral lower extremity ulcers. PRIMARY CARE PHYSICIAN Kentrell Murillo MD ADMITTING PHYSICIAN Jeffrey Chappell MD HISTORY OF PRESENT ILLNESS This is a 60-year-old female who had been complaining of lower extremity leg swelling of her bilateral lower extremities. She has had weeping wounds that have progressed since over the past 4-6 weeks. It should be noted that the patient had left greater than right lower extremity wounds that started after some insect bites that she also describes on her abdominal wall as well. The patient was sent to the emergency department in [place] and was started on IV antibiotics after she was admitted to the hospital. The patient has a history of having a CAT scan with contrast last year when she went to a flash pulmonary edema. She denies any shortness of breath or chest pain or weight loss. She denies any history of ID or stroke but she does note a history of diabetes mellitus. REVIEW OF SYSTEMS Her review of systems is otherwise negative except for what is noted in the HPI. PAST MEDICAL HISTORY 1. Hypertension. 2. Diabetes. 3. Cardiomyopathy sustained after contrast induced flash pulmonary edema. 4. Obesity. 5. Hypothyroidism. 6. History of dermoid cyst status post left oophorectomy 25 years ago. PAST SURGICAL HISTORY 1. Left oophorectomy. 2. Cholecystectomy. 3. Hernia repair. MEDICATION Reported medications noted in the EMR. ALLERGIES PEANUTS AND CONTRAST MEDIA. SOCIAL HISTORY Denies smoking, alcohol abuse or drug abuse. PHYSICAL EXAMINATION VITAL SIGNS: Her blood pressures is in the 120s over 50s. Heart rate is in the 70s and regular. Her T-max is 98.7 and she is saturating at 98% on room air. NEUROLOGIC: She is alert and oriented x3. CARDIOVASCULAR: She has no murmurs, rubs or gallop. She has palpable radial pulses bilaterally. She has triphasic left PT signals and biphasic right dorsalis pedis and posterior tibial artery signals. She has palpable femoral pulses bilaterally. PULMONARY: From a pulmonary standpoint, she is clear to auscultation bilaterally. She has no wheezing, rales or rhonchi. ABDOMEN: Her abdomen is soft, protuberant, nondistended. SKIN: Her bilateral lower extremities, she has second and third toe what appears to be bluish discoloration. She has stocking distribution wounds in her bilateral lower extremities that are weeping with denuded skin. It is not malodorous. She has 2+ edema in her bilateral lower extremities from the knees down. LABORATORY DATA White blood cell count 8.8. Her creatinine is 3.75 on admission, on 05/13 it was 4.5. ASSESSMENT This is a 60-year-old female with a history of bilateral lower extremity wounds. She also has a history of morbid obesity and diabetes mellitus with wounds that have been present for approximately 1 month. The patient noted that she had difficulty in having somebody to come out and do wound care over the past 7 to 10 days as the wounds on her legs appear neglected. The patient was started on Zosyn and given Linezolid from infectious disease for her wounds. I would continue IV antibiotics. We have ordered a venous duplex to rule out DVT, although she had one done in late March that was negative for this. She has had a history of contrast reaction that was severe in the past and has a creatinine at this point that is elevated that would preclude her from having any type of contrast study. It should be noted that I have ordered noninvasive arterial segmental pressures of her lower extremities to give us better indicator of what her arterial supply is. Will followup on her venous and arterial examinations and at this point she should just have her wound care continued. DO ADRIANNA Keller/MARY ANN /3:04 PM /3:30 PM
[2016-05-14 16:30] LABS: HEMOGLOBIN A1b 2.2 %; HEMOGLOBIN Ao 80.9 %; HEMOGLOBIN LA1C 2.9 %; HEMOGLOBIN P3 6.3 %
--- NOTE | 2016-05-14 16:47 | RADRPT ---
EXAM DATE/TIME: 05/14/2016 15:20 [facility] COMPARISON: US LEG LEFT VENOUS DOPPLER, May 14, 2016, 14:30. INDICATIONS : Increased BUN/Creatinine. MEDICAL HISTORY : Hypertension. Hypothyroidism. Dyspnea. Hiatal hernia. Diabetes. SURGICAL HISTORY : Cholecystectomy. Umbilical hernia repair. Left oophorectomy. ENCOUNTER: Subsequent ACUITY: 1 day PAIN SCORE: 0/10 LOCATION: Bilateral flank MEASUREMENTS: RIGHT KIDNEY: 10.7 x 4.7 x 5.0 cm LEFT KIDNEY: 10.3 x 6.5 x 4.6 cm FINDINGS: RIGHT KIDNEY: The echotexture of the renal cortex is heterogeneous. The echotexture is somewhat increased. There is no hydronephrosis. The cortex appears of adequate thickness. No masses seen. LEFT KIDNEY: There is heterogeneous, increased echotexture. No masses seen. There is no hydronephrosis. BLADDER: Within normal limits given the degree of distension. CONCLUSION: 1. Increased echogenicity of the kidneys suggesting underlying medical renal disease. No findings to indicate renal obstruction. Jose Rogers MD on May 14, 2016 at 16:44 Board Certified Radiologist. This report was verified electronically.
[2016-05-14 17:33] VITALS: PULSE 80
[2016-05-14] MEDS: SILVER SULFADIAZINE 1% CR 400 GM JAR TOPICAL SCH (19:38)
[2016-05-14 20:00] VITALS: BP 153/70; PULSE 73; PULSE 75; RESP 20; TEMP 97.2; O2SAT 99
--- NOTE | 2016-05-14 20:18 | MB ---
cc: TARI JACINTO DATE OF CONSULTATION: 05/14/2016 CHIEF COMPLAINT Bilateral lower extremity wounds and cellulitis. HISTORY OF PRESENT ILLNESS Ms. Lemos is a 60-year-old female patient who was admitted to the hospital for bilateral lower extremity extensive ulcerations and cellulitis. She was recently hospitalized in late March for a similar situation and discharged on outpatient antibiotics with home wound care. The patient followed up with Dr. Bridges but states most of the issue was that home health only came to see her once or twice during her three-week discharge. She states that the cellulitis worsened as did the pain and the wound. She states that originally the wounds were only on the left leg but are now bilateral. The patient states she saw her primary care physician who suggested she be readmitted to the hospital as her outpatient treatment has failed. On admission white count was 12 thousand. The patient complains of severe pain and states that she cannot tolerate leg elevation well due to pain but does not have pain to touch. The patient states she has an allergy to Santyl. She feels this created the lesions on the second and third digits of the left foot. She also states she has an adversion to unna boots. However, this may be due to the way they are applied and if they are left on for several days. PAST MEDICAL HISTORY 1. PVD. 2. Hypertension. 3. Diabetes. 4. Cardiomyopathy. 5. History of contrast-induced pulmonary edema. 6. Obesity. 7. Hypothyroidism. 8. History of a dermatoid cyst. PAST SURGICAL HISTORY 1. Left oophorectomy for a dermatoid cyst. 2. Cholecystectomy. 3. Hernia repair. MEDICATIONS Please see list. SOCIAL HISTORY Denies smoking, alcohol or drug abuse. She is retired and lives at home with family. ALLERGIES CONTRAST MEDIA, PEANUTS AND SANTYL. VITAL SIGNS Temperature is 97.8 with a T-max of 97.8, pulse is 73, respiratory rate is 20, blood pressure is 123/58, pulse ox 98% O2 on room air. LABORATORY DATA White count is 8.8, hemoglobin 11.4, hematocrit 34.2, platelets 366. PTT is 37.8. Sodium 132, carbon dioxide 19.1, BUN 66, creatinine 3.75. A1c pending. Blood cultures pending. IMAGING Left foot x-ray pending. Lower extremity ultrasound negative for DVT or abscess. PHYSICAL EXAMINATION On physical exam, the patient has bilateral palpable pedal pulses despite [id number] swelling of the feet and lower extremities. Cap fill time is less than 3 seconds. Gross sensation appears diminished but intact. The right lower extremity has multiple scattered fibrotic wounds less than 0.5 cm in circumference, but probably greater than 20 wounds circumferentially around the calf. The left lower extremity second and third digit on the most distal aspect shows signs of necrosis, no malodor and no deep probing. Extensive wounds on the left lower extremity the largest being on the lateral aspect approximately 12 cm x 8 cm with a necrotic fibrotic base however there are wounds circumferentially. There is periwound erythema on both lower extremities and serous drainage from both lower extremities. ASSESSMENT Mixed stage ulcerations of the lower extremity with cellulitis. PLAN 1. The patient was encouraged to elevate legs despite discomfort. Swelling in the feet appears to be impairing circulation to the digits. 2. Wound care orders placed for nursing but consult also placed for wound care nurse to help with any suggestions to diminish and maintain drainage given that the patient cannot tolerate Unna boots. We will start with Silvadene given her adversion to Santyl. 3. No surgical intervention at this time however if the patient does not seem to have a positive reaction to antibiotics she may need a wound debridement in order to decrease the bioburden. We will also await to see vascular input. We will follow daily. Thank you for this consultation. Tari PERSON/BJF /4:43 PM /7:50 PM JAY
--- NOTE | 2016-05-14 20:30 | RADRPT ---
EXAM DATE/TIME: 05/14/2016 19:35 [facility] COMPARISON: FOOT LEFT COMPLETE ([id number]), April 18, 2016, 17:15. INDICATIONS : Left foot ulcer. Swelling and sores. MEDICAL HISTORY : Hypertension. Hypothyroidism. Dyspnea. Hiatal hernia. Diabetes. SURGICAL HISTORY : Cholecystectomy. Umbilical hernia repair. Left oophorectomy. ENCOUNTER: Subsequent ACUITY: 2 days PAIN SCORE: 2/10 LOCATION: Left dorsal foot. FINDINGS: Three view examination of the left foot demonstrates no racture or dislocation. Extensive soft tissue swelling is noted over the dorsum of the foot. There is no destructive change. There is no new perio steal new bone formation. There are mild degenerative changes. The tarsal bones appear intact. The i nterphalangeal and metatarsophalangeal joints are intact. The calcaneus is intact. Bony mineralizat ion is normal. There is a small to moderate spur of the inferior calcaneus. CONCLUSION: 1. Extensive soft tissue swelling with no evidence to suggest osteomyelitis. 2. There are no radiopaque foreign bodies. Janes Danielson MD on May 14, 2016 at 20:27 Board Certified Radiologist. This report was verified electronically.
--- NOTE | 2016-05-14 21:54 | EKG ---
Date Performed: 05/13/2016 Time Performed: 17:44:16 PTAGE: 60 years EKG: Sinus rhythm OLD ANTEROSEPTAL MYOCARDIAL INFARCTION ABNORMAL ECG PREVIOUS TRACING : 11/14/2014 23.27 Since previous tracing, no significant change noted DOCTOR: Melanie Hagen Interpretating Date/Time 05/14/2016 21:53:16
[2016-05-14] MEDS: DULoxetine HCl DR 30 MG CAP PO SCH (22:29)
[2016-05-15] VITALS (8 sets, daily range): BP systolic 117–148; BP diastolic 53–65; PULSE 69–78; RESP 18–20; TEMP 97–98; O2SAT 95–100
[2016-05-15] MEDS: HYDROmorphone HCL PF 1 MG/ML VIAL IV PUSH PRN ×4 (01:30→09:38)
[2016-05-15] MEDS: oxyCODONE/ACETAMINOPHEN 10 MG/325 MG TAB PO PRN (02:55)
[2016-05-15] MEDS: LEVOTHYROXINE SODIUM 75 MCG TAB PO SCH (04:22)
[2016-05-15] MEDS: LEVOTHYROXINE SODIUM 100 MCG TAB PO SCH (04:22)
[2016-05-15] MEDS: INSULIN ASPART SUPPLEMENTAL SCALE SQ SCH ×4 (06:03→21:42)
[2016-05-15 07:31] LABS: BICARBONATE 21.9 MEQ/L (21.0-32.0); POTASSIUM 4.4 MEQ/L (3.5-5.1)
[2016-05-15] MEDS: HEPARIN SODIUM - SQ 10,000 UNITS/ML VIAL SQ SCH ×2 (08:00→21:43)
[2016-05-15] MEDS: SILVER SULFADIAZINE 1% CR 400 GM JAR TOPICAL SCH (09:00)
[2016-05-15] MEDS ORDERED: FAMOTIDINE 20 MG/2 ML VIAL ONE ×2 (09:02→11:01)
[2016-05-15] MEDS: LINEZOLID 600 MG PREMIX 300 ML IV SCH ×2 (09:27→21:41)
[2016-05-15] MEDS: SODIUM CHLORIDE 0.9% FLUSH 5 ML FLUSH FLUSH SCH ×2 (09:27→21:42)
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
[2016-05-15] MEDS ORDERED: BUPIVACAINE HCL PF 0.25% 30 ML VIAL ONE (10:42)
[2016-05-15] MEDS ORDERED: ACETAMINOPHEN 1000 MG/100 ML VIAL IV ONE (11:00)
[2016-05-15] MEDS ORDERED: DICLOFENAC SODIUM 37.5 MG/ML VIAL IV PUSH ONE (11:01)
[2016-05-15] MEDS ORDERED: DEXAMETHASONE SOD PHOS 4 MG/ML VIAL ONE (11:01)
[2016-05-15] MEDS ORDERED: MIDAZOLAM HCL 2 MG/2 ML VIAL ONE (11:01)
[2016-05-15] MEDS ORDERED: fentaNYL CITRATE 250 MCG/5 ML AMP ONE (11:01)
[2016-05-15] MEDS ORDERED: BACITRACIN TOP OINT 15 GM TUBE ONE (11:16)
[2016-05-15] MEDS ORDERED: PROPOFOL 200 MG/20 ML AMP IV ONE (12:00)
[2016-05-15] MEDS ORDERED: NEOSTIGMINE 3 MG/3 ML SYR IV ONE (12:00)
[2016-05-15] MEDS ORDERED: ONDANSETRON HCL 4 MG/2 ML VIAL IV PUSH ONE (12:00)
[2016-05-15] MEDS ORDERED: *morphine SULFATE 8 MG/ML PERIprocedure ONLY ONE (12:35)
[2016-05-15] MEDS: LACTOBACILLUS ACIDOPHILUS TAB PO SCH ×3 (13:00→18:25)
[2016-05-15] MEDS ORDERED: DO NOT ADM ANY ANTICOAGULANT DRUGS XX PRN (13:15)
[2016-05-15] MEDS: CEFEPIME INJ 2,000 MG in SODIUM CHLORIDE 0.9% INJ 100 ML IV SCH (13:59)
[2016-05-15] MEDS: SODIUM BICARBONATE 650 MG TAB PO SCH ×2 (14:00→21:42)
[2016-05-15] MEDS: buPROPion HCL 150 MG SUSTAINED RELEASE TAB PO SCH ×2 (14:00→21:42)
[2016-05-15] MEDS: LIOTHYRONINE SODIUM 5 MCG TAB PO SCH (14:00)
[2016-05-15] MEDS: CARVEDILOL 12.5 MG TAB PO SCH ×2 (14:00→21:41)
[2016-05-15] MEDS: DULoxetine HCl DR 30 MG CAP PO SCH ×2 (14:07→21:42)
[2016-05-15] MEDS: HYDROmorphone HCL PF 2 MG/ML VIAL IV PUSH PRN (21:42)
--- NOTE | 2016-05-15 22:52 | HHI.NPPN ---
Subjective Interval History patient underwent debridement today. Feels better. Pain is under better control. Review of Systems General Constitutional: Fatigue Objective Data Data 05/14/16 05/15/16 19:00 07:00 Intake Total 856 ml 780 ml Output Total 850 ml Balance 856 ml -70 ml Intake Oral 480 ml 480 ml IV Total 376 ml 300 ml Output Urine Total 850 ml # Voids 2 2 # Bowel Movements 1 0 Vital Signs Date Time Temp Pulse Resp B/P Pulse Ox O2 Delivery O2 Flow Rate FiO2 05/15/16 20:24 98.0 75 18 117/53 99 05/15/16 16:00 97.0 72 20 135/63 100 05/15/16 13:15 97.8 72 12 172/83 95 Room Air 05/15/16 13:00 75 14 176/85 97 Room Air 05/15/16 12:45 77 12 166/80 96 Room Air 05/15/16 12:45 12 05/15/16 12:30 76 18 160/83 95 Room Air 05/15/16 12:25 99 Nasal Cannula 2 05/15/16 12:15 75 16 155/76 99 Simple Mask 6 05/15/16 12:03 98.0 90 18 127/65 99 Simple Mask 6 05/15/16 08:00 98.0 74 20 148/65 98 05/15/16 08:00 72 05/15/16 00:00 97.8 69 20 136/63 100 -: 05/14/16 0720 05/15/16 0639 Physical Exam General Appearance: Well Developed Throat Throat Exam: Oral Mucosa [place] & Moist Neck Neck Exam: Neck Supple Pulmonary Resp Exam: Clear Bilaterally, Breath Sounds Equal Cardiology CV Exam: Regular, Normal Sinus Rhythm Gastrointestinal/Abdomen GI Exam: Soft, Non-Tender, Bowel Sounds Present Integumentary Skin Exam: Ulcer(s) Extremeties Extremeties Remarks legs and feet are wrapped Assessment/Plan Problem List: (1) Acute kidney failure, unspecified Plan: Renal function is slightly better today. JAYLAN likely due to use of NSAIDs. Continue supportive care. Avoid NSAIDs and other potential nephrotoxic agents. Monitor urine output and renal function. (2) DM type 2, uncontrolled, with neuropathy Plan: continue insulin coverage. Maintain blood glucose between 140 and 180. Avoid Metformin. (3) Cellulitis and abscess of lower extremity Plan: ID on the case. On Zyvox and Cefepime. The dose of Cefepime dose may have to be reduced. (4) PVD (peripheral vascular disease) Plan: patient has multiple areas of skin erosions and ulcers on her legs. Beny Graves MD May 15, 2016 22:52
--- NOTE | 2016-05-15 23:53 | HHI.PR ---
Subjective Remarks patient seen this afternoon around 6:30 PM. Underwent debridement today. Reports that pain has resolved. Denies any chest pain or shortness of breath. Objective Vital Signs Date Time Temp Pulse Resp B/P Pulse Ox O2 Delivery O2 Flow Rate FiO2 05/15/16 20:24 98.0 75 18 117/53 99 05/15/16 20:00 78 05/15/16 16:00 97.0 72 20 135/63 100 05/15/16 13:15 97.8 72 12 172/83 95 Room Air 05/15/16 13:00 75 14 176/85 97 Room Air 05/15/16 12:45 77 12 166/80 96 Room Air 05/15/16 12:45 12 05/15/16 12:30 76 18 160/83 95 Room Air 05/15/16 12:25 99 Nasal Cannula 2 05/15/16 12:15 75 16 155/76 99 Simple Mask 6 05/15/16 12:03 98.0 90 18 127/65 99 Simple Mask 6 05/15/16 08:00 98.0 74 20 148/65 98 05/15/16 08:00 72 05/15/16 00:00 97.8 69 20 136/63 100 I/O 05/14/16 05/14/16 05/14/16 05/15/16 05/15/16 05/15/16 07:00 15:00 23:00 07:00 15:00 23:00 Intake Total 480 ml 856 ml 540 ml 240 ml 980 ml 600 ml Output Total 850 ml 25 ml 200 ml Balance 480 ml 856 ml 540 ml -610 ml 955 ml 400 ml Intake Oral 480 ml 480 ml 240 ml 240 ml 480 ml 600 ml IV Total 376 ml 300 ml 0 ml 100 ml Other 400 ml Output Urine Total 850 ml 200 ml Estimated Blood Loss 25 ml # Voids 1 2 2 3 # Bowel Movements 1 0 0 0 Result Diagram: 05/14/16 0720 05/15/16 0639 Objective Remarks GENERAL: Patient sitting up in reclineras before. Appears in pain. Alert and oriented 3. SKIN: Warm and dry. HEAD: Normocephalic. EYES: No scleral icterus. No injection or drainage. NECK: Supple, trachea midline. No JVD or lymphadenopathy. CARDIOVASCULAR: Regular rate and rhythm without murmurs, gallops, or rubs. RESPIRATORY: Breath sounds equal bilaterally. No accessory muscle use. GASTROINTESTINAL: Abdomen soft, non-tender, nondistended. MUSCULOSKELETAL: No cyanosis. bilateral lower extremity venous stasis wounds are dressed, bandage. Dressing intact. BACK: Nontender without obvious deformity. No CVA tenderness. A/P Assessment and Plan //Bilateral nonhealing venous stasis ulcers. Left worse than right. //Bilateral lower extremity cellulitis. Acute on chronic. //Severe bilateral lower extremity pain. Acute on chronic. //Leukocytosis with left shift. Acute. Resolved . -Failure of outpatient treatment. -Podiatry, vascular surgery, infectious diseases consulted. -status post debridement by Dr. Colon on 05/15. -Continue pain control per surgical service. -Continue antibiotics as per infectious disease. Appreciate assistance. //Acute kidney injury. - creatinine 4.5 on admission. Most recent baseline 1.15 on April 24. -Likely secondary to NSAIDs in conjunction with losartan. Patient says she was taking "handfuls" of NSAIDs. -Continue to hold losartan, Lasix. Avoid nephrotoxins Nephrology following. Appreciate assistance. -Due to history of CHF with ejection fraction 30%, as well as bilateral lower extremity edema, hydrate orally -05/15 Creatinine continues improving. Urinalysis pending. Continue to monitor. //History of cardiomyopathy. Ejection fraction 30%. -Watch fluid status closely. -Continue Coreg -Hold Lasix due to kidney injury. //Diabetes. is on long-acting insulin at home. We will hold this due to kidney failure. -Glucose currently controlled on sliding scale alone. Continue to monitor. //Hyponatremia. 128 on admission. Stable. -Appreciate nephrology assistance. //Hypothyroidism. Continue Synthroid. //Prophylaxis. Subcutaneous heparin Discharge Planning Physical therapy consulted. Pending workup bypass surgery, infectious disease, podiatry. Appreciate case management assistance. Jeffrey Chappell MD May 15, 2016 23:53 Jeffrey Chappell MD May 15, 2016 23:53
[2016-05-16] VITALS (10 sets, daily range): BP systolic 117–145; BP diastolic 53–66; PULSE 61–75; RESP 18–22; TEMP 97.2–98.4; O2SAT 93–99
[2016-05-16] MEDS: LEVOTHYROXINE SODIUM 75 MCG TAB PO SCH (05:30)
[2016-05-16] MEDS: LEVOTHYROXINE SODIUM 100 MCG TAB PO SCH (05:30)
[2016-05-16] MEDS: INSULIN ASPART SUPPLEMENTAL SCALE SQ SCH ×4 (06:12→21:47)
[2016-05-16] MEDS: HYDROmorphone HCL PF 2 MG/ML VIAL IV PUSH PRN ×4 (06:30→21:45)
[2016-05-16 07:01] LABS: AUTOMATED NEUTROPHIL # 8.6 TH/MM3 (1.8-7.7); BASOPHIL # 0.1 TH/MM3 (0-0.2); BASOPHIL % 0.6 % (0.0-2.0); EOSINOPHIL % 0.2 % (0.0-4.0); HEMO FLAGS DIFF FINAL; LYMPH % 10.2 % (9.0-44.0); LYMPHOCYTE # 1.1 TH/MM3 (1.0-4.8); MEAN CELL VOLUME 81.7 FL (80.0-100.0); MEAN CORPUSCULAR HEMOGLOBIN 26.8 PG (27.0-34.0); MEAN CORPUSCULAR HGB CONC 32.8 % (32.0-36.0); PLATELET COUNT 365 TH/MM3 (150-450); RED BLOOD COUNT 4.04 MIL/MM3 (4.00-5.30); RED CELL DISTRIBUTION WIDTH 13.7 % (11.6-17.2); WHITE BLOOD COUNT 10.6 TH/MM3 (4.0-11.0)
[2016-05-16 07:21] LABS: POTASSIUM 4.7 MEQ/L (3.5-5.1)
[2016-05-16 07:25] LABS: BICARBONATE 19.9 MEQ/L (21.0-32.0)
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
--- NOTE | 2016-05-16 08:14 | HHI.PR ---
Addendum to Inpatient Note Addendum Reason: Additional Documentation Additional Information discussed with patient over the phone patient would like all her medical information to be released to her nephew, Rolando DAVIS, if he calls and asks. Her nephew has her PIN number as well. Nursing staff/ charge nurse informed. Valery Ang MD May 16, 2016 08:14
[2016-05-16] MEDS: oxyCODONE/ACETAMINOPHEN 7.5 MG/325 MG TAB PO PRN (08:43)
[2016-05-16] MEDS: LACTOBACILLUS ACIDOPHILUS TAB PO SCH ×3 (08:44→17:53)
[2016-05-16] MEDS: LIOTHYRONINE SODIUM 5 MCG TAB PO SCH (08:44)
[2016-05-16] MEDS: buPROPion HCL 150 MG SUSTAINED RELEASE TAB PO SCH ×2 (08:44→21:44)
[2016-05-16] MEDS: DULoxetine HCl DR 30 MG CAP PO SCH ×2 (08:44→21:44)
[2016-05-16] MEDS: CARVEDILOL 12.5 MG TAB PO SCH ×2 (08:44→21:47)
[2016-05-16] MEDS: HEPARIN SODIUM - SQ 10,000 UNITS/ML VIAL SQ SCH ×2 (08:45→21:43)
[2016-05-16] MEDS: LINEZOLID 600 MG PREMIX 300 ML IV SCH ×2 (08:50→21:43)
[2016-05-16] MEDS: SODIUM CHLORIDE 0.9% FLUSH 5 ML FLUSH FLUSH SCH ×2 (08:50→21:43)
[2016-05-16] MEDS: SILVER SULFADIAZINE 1% CR 400 GM JAR TOPICAL SCH (08:51)
[2016-05-16] MEDS: CEFEPIME INJ 2,000 MG in SODIUM CHLORIDE 0.9% INJ 100 ML IV SCH (12:25)
--- NOTE | 2016-05-16 13:51 | HHI.NPPN ---
Subjective Complaints: Obesity Renal Failure: Acute Interval History Sitting up eating lunch. Legs wrapped. Renal function better. (Yulisa Vega) Review of Systems General Constitutional: Fatigue (Yulisa Vega) Objective Data Data 05/15/16 05/16/16 18:59 06:59 Intake Total 980 ml 900 ml Output Total 25 ml 200 ml Balance 955 ml 700 ml Intake Oral 480 ml 600 ml IV Total 100 ml 300 ml Other 400 ml Output Urine Total 200 ml Estimated Blood Loss 25 ml # Voids 3 # Bowel Movements 0 0 Vital Signs Date Time Temp Pulse Resp B/P Pulse Ox O2 Delivery O2 Flow Rate FiO2 05/16/16 12:00 98.0 63 20 132/62 93 05/16/16 10:24 98 21 05/16/16 08:10 63 05/16/16 08:00 98.4 71 22 134/63 97 05/16/16 04:38 97.8 61 18 138/61 97 05/16/16 00:31 98.0 75 18 117/53 99 05/15/16 20:24 98.0 75 18 117/53 99 05/15/16 20:00 78 05/15/16 16:00 97.0 72 20 135/63 100 (Yulisa Vega) -: 05/16/16 0610 05/16/16 0610 Imaging Last 72 hours Impressions Renal Ultrasound 05/14/16 1457 Signed Impressions: Service Date/Time: Saturday, May 14, 2016 15:20 - CONCLUSION: 1. Increased echogenicity of the kidneys suggesting underlying medical renal disease. No findings to indicate renal obstruction. Jose Rogers MD Lower Extremity Ultrasound 05/14/16 0948 Signed Impressions: Service Date/Time: Saturday, May 14, 2016 14:30 - CONCLUSION: 1. No DVT identified. 2. No abscess seen in the subcutaneous soft tissues Jose Rogers MD Foot X-Ray 05/14/16 0000 Signed Impressions: Service Date/Time: Saturday, May 14, 2016 19:35 - CONCLUSION: 1. Extensive soft tissue swelling with no evidence to suggest osteomyelitis. 2. There are no radiopaque foreign bodies. Janes Danielson MD Chest X-Ray 05/13/16 1632 Signed Impressions: Service Date/Time: Friday, May 13, 2016 17:23 - CONCLUSION: No acute disease. Shamar Banuelos MD (Yulisa Vega) Physical Exam General Appearance: Well Developed, Well Nourished, Comfortable (Yulisa Vega [employer]) Eyes Eye Exam: Pupils Equal (Yulisa Vega [employer]) Throat Throat Exam: Oral Mucosa [place] & Moist (Yulisa Vega [employer]) Neck Neck Exam: Neck Supple (Yulisa Vega [employer]) Pulmonary Resp Exam: Clear Bilaterally, Breath Sounds Equal, No Distress (Yulisa Vega [employer]) Cardiology CV Exam: Regular, Normal Sinus Rhythm (Yulisa Vega [employer]) Gastrointestinal/Abdomen GI Exam: Soft, Non-Tender, Bowel Sounds Present (Yulisa Vega [employer]) Musculoskeletal MS Exam: Joints Intact, Good Strength (Yulisa Vega [employer]) Integumentary Skin Exam: Warm, Ulcer(s) Skin Remarks bilateral lower extremities wrapped (Yulisa Vega [employer]) Extremeties Extremities Exam: Trace Edema (Yulisa Vega [employer]) Neurologic Neuro Exam: Alert, Awake, Oriented, Speech Clear, Moving All Extremities ( Yulisa Vega BBailee LIP) Psychiatric Psych Exam: Appropriate Responses (Yulisa Vega) Assessment/Plan Discussed Condition With: Patient Problem List: (1) Acute kidney failure, unspecified Plan: Renal function continues to improve JAYLAN due to use of NSAIDs. potassium in normal range, acidosis should improve as renal function improves off IVF, encourage oral restriction. Continue supportive care. Avoid NSAIDs and other potential nephrotoxic agents. Monitor urine output and renal function daily (2) DM type 2, uncontrolled, with neuropathy Plan: continue insulin coverage. Maintain blood glucose between 140 and 180. Avoid Metformin. (3) Cellulitis and abscess of lower extremity Plan: ID following On Zyvox and Cefepime. monitor clinically, continue wound care (4) PVD (peripheral vascular disease) Plan: with multiple ulcers on lower extremities vascular following (Yulisa VegaP) Plan Patient was seen and examined. Her renal function continues to improve. She is feeling much better. Continue to avoid NSAIDs. (Beny Graves MD) Yulisa Vega [facility] May 16, 2016 13:51 Beny Graves MD May 16, 2016 14:28
--- NOTE | 2016-05-16 19:54 | HHI.PR ---
Subjective Remarks patient seen Today around noon. She reports that pain in bilateral legs became worse this morning after walking. Improved with Dilaudid. She denies any nausea, vomiting, chest pain, shortness of breath. Objective Vital Signs Date Time Temp Pulse Resp B/P Pulse Ox O2 Delivery O2 Flow Rate FiO2 05/16/16 17:48 98 21 05/16/16 16:00 97.6 66 22 145/66 98 05/16/16 12:00 98.0 63 20 132/62 93 05/16/16 10:24 98 21 05/16/16 08:10 63 05/16/16 08:00 98.4 71 22 134/63 97 05/16/16 04:38 97.8 61 18 138/61 97 05/16/16 00:31 98.0 75 18 117/53 99 05/15/16 20:24 98.0 75 18 117/53 99 05/15/16 20:00 78 I/O 05/15/16 05/15/16 05/15/16 05/16/16 05/16/16 05/16/16 06:59 14:59 22:59 06:59 14:59 22:59 Intake Total 240 ml 980 ml 900 ml 0 ml 1080 ml Output Total 850 ml 25 ml 200 ml 500 ml Balance -610 ml 955 ml 700 ml 0 ml 580 ml Intake Oral 240 ml 480 ml 600 ml 1080 ml IV Total 0 ml 100 ml 300 ml 0 ml Other 400 ml Output Urine Total 850 ml 200 ml 500 ml Estimated Blood Loss 25 ml # Voids 3 # Bowel Movements 0 0 0 0 Result Diagram: 05/16/1610 05/16/16 0610 Objective Remarks GENERAL: Patient sitting up in recliner. family at bedside. Appears in pain. Alert and oriented 3. SKIN: Warm and dry. HEAD: Normocephalic. EYES: No scleral icterus. No injection or drainage. NECK: Supple, trachea midline. No JVD or lymphadenopathy. CARDIOVASCULAR: Regular rate and rhythm without murmurs, gallops, or rubs. RESPIRATORY: Breath sounds equal bilaterally. No accessory muscle use. GASTROINTESTINAL: Abdomen soft, non-tender, nondistended. MUSCULOSKELETAL: No cyanosis. bilateral lower extremity venous stasis wounds are dressed, bandage. Dressing intact. BACK: Nontender without obvious deformity. No CVA tenderness. A/P Assessment and Plan //Bilateral nonhealing venous stasis ulcers. Left worse than right. //Bilateral lower extremity cellulitis. Acute on chronic. //Severe bilateral lower extremity pain. Acute on chronic. //Leukocytosis with left shift. Acute. Resolved . -Failure of outpatient treatment. - Vascular surgery evaluated. Not able to do contrast study secondary to acute kidney injury on admission -status post debridement by Dr. Colon on 05/15. -Continue pain control per surgical service. -Continue antibiotics as per infectious disease. Appreciate assistance. //Acute kidney injury. - creatinine 4.5 on admission. Most recent baseline 1.15 on April 24. -Likely secondary to NSAIDs in conjunction with losartan. Patient says she was taking "handfuls" of NSAIDs. -Continue to hold losartan, Lasix. Avoid nephrotoxins Nephrology following. Appreciate assistance. -Due to history of CHF with ejection fraction 30%, as well as bilateral lower extremity edema, hydrate orally -05/15 Creatinine continues improving. Urinalysis pending. Continue to monitor. //History of cardiomyopathy. Ejection fraction 30%. -Watch fluid status closely. -Continue Coreg -Hold Lasix due to kidney injury. //Diabetes. is on long-acting insulin at home. - Initially held this due to kidney failure. -Glucose currently controlled on sliding scale alone. Continue to monitor. - 05/16. Patient is on glargine 20 units twice daily at home. We'll start back on Levemir 15 units twice daily //Hyponatremia. 128 on admission. Stable. -Appreciate nephrology assistance. //Hypothyroidism. Continue Synthroid. //Prophylaxis. Subcutaneous heparin Discharge Planning status post debridement by podiatry on 05/15.Podiatry wants to change dressings on Thursday. - Can discharge home when cleared by podiatry, vascular surgery, infectious disease. Appreciate case management assistance. Jeffrey Chappell MD May 16, 2016 19:54
[2016-05-16] MEDS: INSULIN DETEMIR 100 UNITS/ML VIAL SQ SCH (21:47)
--- NOTE | 2016-05-16 22:06 | MP ---
cc: TARI JACINTO DATE OF SURGERY May 15, [address] Fredis Jacinto CHOKER HOOKER None PREOPERATIVE DIAGNOSIS Bilateral extensive lower extremity ulcerations. POSTOPERATIVE DIAGNOSES Bilateral extensive lower extremity ulcerations. PATHOLOGY SENT None PROCEDURES PERFORMED Bilateral lower extremity wound debridement ANESTHESIA General. HEMOSTASIS Anatomical dissection. ESTIMATED BLOOD LOSS Less than 20 mL MATERIALS USED Silvadene and Adaptic. INJECTABLES None COMPLICATIONS None INDICATIONS Ms. Lemos is a 50-year-old female patient with history of bilateral lower extremity extensive diabetic ulceration with cellulitis. She failed outpatient antibiotics on her last admission. She has not had any surgical intervention and at this time I felt that aggressive intervention was her best option of improving these wounds which were largely fibrotic and draining. The consent was signed. The procedure was explained. No guarantees were given. PROCEDURE IN DETAIL Under mild sedation, the patient was brought into the operating room placed on the operating table in a supine position. Following IV sedation, both legs were scrubbed, prepped and draped in usual aseptic manner. Attention was directed to the right lower extremity which has the lesser of the wounds encompassing only approximately 25% of the leg. There is also a lateral fifth metatarsal head wound and a plantar heel ulceration. None of the wounds probed to bone. They are all a fibrotic mix with malodor and string tissue. A 15 blade scalpel was used to remove the top layer of stringy fibrotic tissue and a versa jet was used to remove any remaining fibrotic tissue. Approximately 25-40% increasing granular tissue after debridement with the versa jet. The legs were then cleansed with sterile saline. A thin layer of Bactroban was applied to the wounds covered with sterile Adaptic, 4x4s, cast padding and a light Colby wrap. The leg was then wrapped in sterile wrapping and attention was directed to the left lower extremity which has the more severe of the wounds. This lower extremity had circumferential wounds around the entire calf and anterior tibia measuring as largest areas at 15 cm x 8 cm. Again this is all fibrotic base, stringy tissue. Scalpel was used to remove the stringy tissue and a versa jet was used to remove as much fibrotic tissue as I felt was tolerable without exposing any muscle or bone. The same___ dressings were applied as was applied to the right foot. Also of note to the left foot second and third digit with a dry necrotic tissue on the distal tips, no exposed bone. No debridement to this area at this time as they are stable and still in the process of demarcating. The patient tolerated the procedure and anesthesia well. She will recover in the PACU for a period time before being discharged back to her hospital room with written and oral postoperative instructions. Tari JARRELL /7:49 AM /9:49 PM MTDD
[2016-05-17] VITALS (7 sets, daily range): BP systolic 120–147; BP diastolic 57–92; PULSE 64–73; RESP 18–22; TEMP 97.2–98.2; O2SAT 93–98
[2016-05-17] MEDS: HYDROmorphone HCL PF 2 MG/ML VIAL IV PUSH PRN ×4 (03:23→22:50)
[2016-05-17] MEDS: LEVOTHYROXINE SODIUM 100 MCG TAB PO SCH (06:19)
[2016-05-17] MEDS: LEVOTHYROXINE SODIUM 75 MCG TAB PO SCH (06:19)
[2016-05-17] MEDS: INSULIN ASPART SUPPLEMENTAL SCALE SQ SCH ×4 (06:20→20:30)
[2016-05-17] MEDS: oxyCODONE/ACETAMINOPHEN 7.5 MG/325 MG TAB PO PRN (06:21)
[2016-05-17] MEDS: HEPARIN SODIUM - SQ 10,000 UNITS/ML VIAL SQ SCH ×2 (08:00→20:29)
[2016-05-17] MEDS: CARVEDILOL 12.5 MG TAB PO SCH ×2 (09:00→20:29)
[2016-05-17] MEDS: LACTOBACILLUS ACIDOPHILUS TAB PO SCH ×3 (09:00→18:00)
[2016-05-17] MEDS: LIOTHYRONINE SODIUM 5 MCG TAB PO SCH (09:00)
[2016-05-17] MEDS: SILVER SULFADIAZINE 1% CR 400 GM JAR TOPICAL SCH (09:00)
[2016-05-17] MEDS: DULoxetine HCl DR 30 MG CAP PO SCH ×2 (09:00→20:28)
[2016-05-17] MEDS: INSULIN DETEMIR 100 UNITS/ML VIAL SQ SCH ×2 (09:00→20:29)
[2016-05-17] MEDS: SODIUM CHLORIDE 0.9% FLUSH 5 ML FLUSH FLUSH SCH ×2 (09:00→20:44)
[2016-05-17] MEDS: buPROPion HCL 150 MG SUSTAINED RELEASE TAB PO SCH ×2 (09:00→20:29)
[2016-05-17] MEDS: LINEZOLID 600 MG PREMIX 300 ML IV SCH (09:20)
--- NOTE | 2016-05-17 09:34 | HHI.PR ---
Subjective Remarks The patient was concerned about her pain regimen. She said the Percocet did not work. Her family was at the bedside and their questions were answered. The patient that she has been sleeping well. She has been working with physical therapy. Objective Vitals Vital Signs Date Time Temp Pulse Resp B/P Pulse Ox O2 Delivery O2 Flow Rate FiO2 05/17/16 08:00 97.2 70 20 146/64 97 05/17/16 04:51 97.8 69 20 120/59 96 05/17/16 00:00 98.2 64 20 140/60 97 05/16/16 20:00 97.2 67 20 138/60 98 05/16/16 19:50 67 05/16/16 17:48 98 21 05/16/16 16:00 97.6 66 22 145/66 98 05/16/16 12:00 98.0 63 20 132/62 93 05/16/16 10:24 98 21 I/O 05/16/16 05/16/16 05/16/16 05/17/16 05/17/16 05/17/16 07:00 15:00 23:00 07:00 15:00 23:00 Intake Total 0 ml 1080 ml 242 ml Output Total 500 ml 800 ml Balance 0 ml 580 ml -558 ml Intake Oral 1080 ml 240 ml IV Total 0 ml 2 ml Output Urine Total 500 ml 800 ml # Bowel Movements 0 0 Result Diagram: 05/16/16 0610 05/16/16 0610 Imaging Last Impressions Renal Ultrasound 05/14/16 1457 Signed Impressions: Service Date/Time: Saturday, May 14, 2016 15:20 - CONCLUSION: 1. Increased echogenicity of the kidneys suggesting underlying medical renal disease. No findings to indicate renal obstruction. Jose Rogers MD Lower Extremity Ultrasound 05/14/16 0948 Signed Impressions: Service Date/Time: Saturday, May 14, 2016 14:30 - CONCLUSION: 1. No DVT identified. 2. No abscess seen in the subcutaneous soft tissues Jose Rogers MD Foot X-Ray 05/14/16 0000 Signed Impressions: Service Date/Time: Saturday, May 14, 2016 19:35 - CONCLUSION: 1. Extensive soft tissue swelling with no evidence to suggest osteomyelitis. 2. There are no radiopaque foreign bodies. Janes Danielson MD Chest X-Ray 05/13/16 5752 Signed Impressions: Service Date/Time: Friday, May 13, 2016 17:23 - CONCLUSION: No acute disease. Shamar Banuelos MD Objective Remarks GENERAL: No apparent distress, resting comfortably. SKIN: Warm and dry. HEAD: Normocephalic. EYES: No scleral icterus. No injection or drainage. NECK: Supple, trachea midline. No JVD or lymphadenopathy. CARDIOVASCULAR: Regular rate and rhythm without murmurs, gallops, or rubs. RESPIRATORY: Breath sounds equal bilaterally. No accessory muscle use. GASTROINTESTINAL: Abdomen soft, non-tender, nondistended. MUSCULOSKELETAL: No cyanosis. Bilateral lower extremity venous stasis wounds are dressed, bandaged. 1+ lower extremity edema. BACK: Nontender without obvious deformity. No CVA tenderness. NEURO: No gross deficits. PSYCH: Mood and affect appropriate. Medications and IVs Current Medications Medications (Trade) Dose Ordered Sig/Virgilio Route Start Time Stop Time Status Last Admin (NS Flush) 2 ml UNSCH PRN FLUSH 05/13/16 18:45 (NS Flush) 2 ml BID FLUSH 05/13/16 21:00 05/16/16 21:43 (Zofran Inj) 4 mg Q6H PRN IVP 05/13/16 18:45 05/15/16 08:07 (Dulcolax Supp) 10 mg DAILY PRN CO 05/13/16 18:45 (Milk Of Magnesia Liq) 30 ml Q12H PRN PO 05/13/16 18:45 (Senokot) 17.2 mg Q12H PRN PO 05/13/16 18:45 (Heparin Inj) 5,000 units Q12H SQ 05/13/16 20:00 05/17/16 08:00 (Narcan Inj) 0.4 mg UNSCH PRN IV 05/13/16 18:45 (Wellbutrin Sr) 150 mg Q12HR PO 05/13/16 21:00 05/17/16 09:00 (Coreg) 25 mg BID PO 05/13/16 21:00 05/17/16 09:00 (D50w (Vial) Inj) 25 ml UNSCH PRN IV PUSH 05/13/16 19:00 (Glucagon Inj) 1 mg UNSCH PRN OTHER 05/13/16 19:00 (Synthroid) 75 mcg DAILY@06 PO 05/14/16 06:00 05/17/16 06:19 Levothyroxine Sodium 100 mcg 100 mcg DAILY@06 PO 05/14/16 06:00 05/17/16 06:19 (Zyvox 600 Mg Premix) 300 ml @ 300 mls/hr Q12H IV 05/14/16 09:00 05/17/16 09:20 (Cytomel) 5 mcg DAILY PO 05/14/16 09:00 05/17/16 09:00 Lactobacillus Acidophilus 1 tab 1 tab TID PO 05/14/16 09:00 05/17/16 09:00 (Maxipime Inj/NS Inj) 100 ml @ 200 mls/hr Q24H IV 05/14/16 12:00 05/16/16 12:25 (Cymbalta Dr) 30 mg BID PO 05/14/16 21:00 05/17/16 09:00 (Silvadene 1% Cream (400 Gm)) 1 applic DAILY TOPICAL 05/14/16 18:00 (Dilaudid Pf Inj) 2 mg Q4H PRN IV PUSH 05/15/16 12:00 05/17/16 07:30 (Percocet 7.5-325 Mg) 2 tab Q6H PRN PO 05/15/16 12:00 05/17/16 06:21 (Levemir Inj) 15 units Q12HR SQ 05/16/16 21:00 05/17/16 09:00 A/P Problem List: (1) Cellulitis and abscess of lower extremity ICD Code: L02.419 Status: Acute (2) Acute kidney failure, unspecified ICD Code: N17.9 Status: Acute Assessment and Plan Bilateral nonhealing venous stasis ulcers/ Bilateral lower extremity cellulitis Failure of outpatient treatment. Vascular surgery evaluated. Not able to do contrast study secondary to acute kidney injury on admission. Status post debridement by Dr. Colon on 05/15. - Continue pain control with a bowel regimen. Adjusted 05/17. - Continue antibiotics as per infectious disease. - wound care per podiatry. Acute kidney injury. Creatinine 4.5 on admission. Most recent baseline 1.15 on April 24. Likely secondary to NSAIDs in conjunction with losartan. Patient says she was taking "handfuls" of NSAIDs. Appreciate nephrology consult. - Continue to hold losartan, Lasix. Avoid nephrotoxins. - follow up with nephrology. - follow BMP. Cardiomyopathy Ejection fraction 30%. Has lower extremity edema. - Watch fluid status closely. - Continue Coreg - Hold Lasix due to kidney injury. Diabetes Is on long-acting insulin at home. - Patient is on glargine 20 units twice daily at home. We'll start back on Levemir 15 units twice daily. Hyponatremia 128 on admission. Stable. - follow BMP. Prophylaxis. Subcutaneous heparin. Discharge Planning Awaiting clinical improvement. Janes Hopson DO May 17, 2016 09:34
[2016-05-17] MEDS: DOCUSATE SODIUM 100 MG CAP PO SCH ×2 (10:00→20:29)
--- NOTE | 2016-05-17 11:00 | HHI.IDPN ---
Subjective Subjective Remarks Notes reviewed No fever Had debridement of her wounds May 15 C/O severe pain BLE Podiatry notes reviewed D/W RN Not elevating BLE due to the pain Antibiotics Cefepime Zyvox Lines PIV Past Medical History PVD - has CTA last year and has lesions that could be corrected Hypertension Diabetes Cardiomyopathysustained after contrast-induced flash pulmonary edema- latest EF was 30% in March 2016. Obesity Hypothyroidism History of dermoid cyststatus post left oophorectomy 25 years ago Past Surgical History Left oophorectomy for dermoid cyst removal Cholecystectomy Hernia repair Allergies: Coded Allergies: Contrast Media (Verified Allergy, Severe, Flash pulmonary edema , 05/13/16 ) PEANUTS (Verified Allergy, Severe, rash, 05/13/16) Objective . Vital Signs Date Time Temp Pulse Resp B/P Pulse Ox O2 Delivery O2 Flow Rate FiO2 05/17/16 08:00 97.2 70 20 146/64 97 05/17/16 04:51 97.8 69 20 120/59 96 05/17/16 00:00 98.2 64 20 140/60 97 05/16/16 20:00 97.2 67 20 138/60 98 05/16/16 19:50 67 05/16/16 17:48 98 21 05/16/16 16:00 97.6 66 22 145/66 98 05/16/16 12:00 98.0 63 20 132/62 93 05/16/16 05/16/16 05/17/16 15:00 23:00 07:00 Intake Total 1080 ml 242 ml Output Total 500 ml 800 ml Balance 580 ml -558 ml Intake Oral 1080 ml 240 ml IV Total 2 ml Output Urine Total 500 ml 800 ml # Bowel Movements 0 0 . Laboratory Tests Test 05/16/16 06:10 White Blood Count 10.6 TH/MM3 Red Blood Count 4.04 MIL/MM3 Hemoglobin 10.8 GM/DL Hematocrit 33.0 % Mean Corpuscular Volume 81.7 FL Mean Corpuscular Hemoglobin 26.8 PG Mean Corpuscular Hemoglobin 32.8 % Concent Red Cell Distribution Width 13.7 % Platelet Count 365 TH/MM3 Mean Platelet Volume 7.1 FL Neutrophils (%) (Auto) 81.0 % Lymphocytes (%) (Auto) 10.2 % Monocytes (%) (Auto) 8.0 % Eosinophils (%) (Auto) 0.2 % Basophils (%) (Auto) 0.6 % Neutrophils # (Auto) 8.6 TH/MM3 Lymphocytes # (Auto) 1.1 TH/MM3 Monocytes # (Auto) 0.8 TH/MM3 Eosinophils # (Auto) 0.0 TH/MM3 Basophils # (Auto) 0.1 TH/MM3 CBC Comment DIFF FINAL Differential Comment Laboratory Tests Test 05/16/16 06:10 Sodium Level 131 MEQ/L Potassium Level 4.7 MEQ/L Chloride Level 101 MEQ/L Carbon Dioxide Level 19.9 MEQ/L Anion Gap 10 MEQ/L Blood Urea Nitrogen 52 MG/DL Creatinine 2.08 MG/DL Estimat Glomerular Filtration 24 ML/MIN Rate Random Glucose 260 MG/DL Calcium Level 9.3 MG/DL Imaging Renal Ultrasound 05/14/16 1457 Signed Impressions: Service Date/Time: Saturday, May 14, 2016 15:20 - CONCLUSION: 1. Increased echogenicity of the kidneys suggesting underlying medical renal disease. No findings to indicate renal obstruction. Jose Rogers MD Lower Extremity Ultrasound 05/14/16 0948 Signed Impressions: Service Date/Time: Saturday, May 14, 2016 14:30 - CONCLUSION: 1. No DVT identified. 2. No abscess seen in the subcutaneous soft tissues Jose Rogers MD Foot X-Ray 05/14/16 0000 Signed Impressions: Service Date/Time: Saturday, May 14, 2016 19:35 - CONCLUSION: 1. Extensive soft tissue swelling with no evidence to suggest osteomyelitis. 2. There are no radiopaque foreign bodies. Janes Danielson MD Chest X-Ray 05/13/16 1632 Signed Impressions: Service Date/Time: Friday, May 13, 2016 17:23 - CONCLUSION: No acute disease. Shamar Banuelos MD Physical Exam GENERAL: awake and alert, not in respiratory distress. SKIN: Cool and dry. No generalized rash or ecchymosis. HEENT: [place] conjunctivae, no petechia or hemorrhage. No scleral icterus. No injection or drainage. Moist oral mucosa. No oral thrush. T NECK: Supple, nontender, no meningeal signs. CARDIOVASCULAR: Regular rate and rhythm. No rubs. Soft heart sounds, soft murmur at base of the heart RESPIRATORY: Clear to auscultation. Breath sounds equal bilaterally. No wheezes , rales, or rhonchi. GASTROINTESTINAL: Abdomen soft, non-tender, nondistended. No guarding. MUSCULOSKELETAL: Extremities without clubbing. Has some light purplish color of toes on R foot. Has edema BLE. Multiple ulcers both legs with yellow green slough at the bases, the dressing removed was soaked with drainage. No redness in the R leg, has mild redness in her L leg. Has ulcers in L 2nd and 3rd toes, with green base. NEUROLOGICAL: Non-focal PSYCH: cooperative LINE: Peripheral IV with no evidence of infection Assessment & Plan Remarks IMPRESSION BLE cellulitis, much improved with stasis ulcers BLE, worse on L than R - S/P debridement Has known PVD Cardiomyopathy Severe allergy to contrast media RECOMMENDATION Will use Cefepime Stop Zyvox PO Clinda for GPC coverage Stop Flagyl Wound care per podiatry - needs follow-up in wound care center Main problem is pain control Patient not compliant with leg elevation Monitor progress Davida Quispe MD May 17, 2016 11:00
[2016-05-17 11:31] LABS: BICARBONATE 23.4 MEQ/L (21.0-32.0); POTASSIUM 5.1 MEQ/L (3.5-5.1)
[2016-05-17] MEDS: CEFEPIME INJ 2,000 MG in SODIUM CHLORIDE 0.9% INJ 100 ML IV SCH (12:00)
[2016-05-17] MEDS ORDERED: HYDROmorphone HCL PF 2 MG/ML VIAL IV PUSH PRN (12:00)
[2016-05-17] MEDS: HYDROmorphone HCL 2 MG TAB PO PRN (13:30)
--- NOTE | 2016-05-17 13:39 | HHI.NPPN ---
Subjective Complaints: Obesity Renal Failure: Acute History of Present Illness 60 y/o female who was previously admitted for cellulitis of lower extremities. She was discharged home with oral antibiotics and home health care. Apparently the wounds became worse, thus she sought medical care. PMH of obesity, DM II, hypothyroidism, PVD, and depression. She also has cardiomyopathy with an EF 30%. Additional Remarks Patient is alert, sitting on chair and complaining of pain in both the legs. Review of Systems General Constitutional: Fatigue Objective Data Data 05/16/16 05/17/16 18:59 06:59 Intake Total 1080 ml 242 ml Output Total 500 ml 800 ml Balance 580 ml -558 ml Intake Oral 1080 ml 240 ml IV Total 2 ml Output Urine Total 500 ml 800 ml # Bowel Movements 0 0 Vital Signs Date Time Temp Pulse Resp B/P Pulse Ox O2 Delivery O2 Flow Rate FiO2 05/17/16 12:00 97.6 73 20 126/57 93 05/17/16 09:00 21 05/17/16 08:00 97.2 70 20 146/64 97 05/17/16 04:51 97.8 69 20 120/59 96 05/17/16 00:00 98.2 64 20 140/60 97 05/16/16 20:00 97.2 67 20 138/60 98 05/16/16 19:50 67 05/16/16 17:48 98 21 05/16/16 16:00 97.6 66 22 145/66 98 -: 05/16/16 0610 05/17/16 1048 Physical Exam General Appearance: Comfortable Eyes Eye Exam: Pupils Equal Throat Throat Exam: Oral Mucosa [place] & Moist Neck Neck Exam: Neck Supple Pulmonary Resp Exam: Clear Bilaterally, Breath Sounds Equal, No Distress Cardiology CV Exam: Regular, Normal Sinus Rhythm Gastrointestinal/Abdomen GI Exam: Soft, Non-Tender, Bowel Sounds Present Musculoskeletal MS Exam: Joints Intact, Good Strength Integumentary Skin Exam: Warm, Ulcer(s) Extremeties Extremities Exam: Moderate Edema, Pitting Edema ([place] legs covered with dressing.) Neurologic Neuro Exam: Alert, Awake, Oriented, Speech Clear, Moving All Extremities Psychiatric Psych Exam: Appropriate Responses Assessment/Plan Discussed Condition With: Patient Problem List: (1) Acute kidney failure, unspecified Plan: Renal function continues to improve JAYLAN due to use of NSAIDs. potassium in normal range, acidosis improved. Continue supportive care. Avoid NSAIDs and other potential nephrotoxic agents. Monitor urine output and renal function daily. (2) DM type 2, uncontrolled, with neuropathy Plan: continue insulin coverage. Maintain blood glucose between 140 and 180. Avoid Metformin. (3) Cellulitis and abscess of lower extremity Plan: ID following On Zyvox and Cefepime. monitor clinically, continue wound care (4) PVD (peripheral vascular disease) Plan: with multiple ulcers on lower extremities vascular following Ellen Willingham MD May 17, 2016 13:39
[2016-05-17] MEDS: CLINDAMYCIN 150 MG CAP PO SCH ×3 (13:44→22:50)
[2016-05-17] MEDS: HYDROmorphone HCL 4 MG TAB PO PRN (20:44)
[2016-05-17] MEDS: SODIUM CHLORIDE 0.9% FLUSH 5 ML FLUSH FLUSH PRN (22:50)
[2016-05-18] VITALS (7 sets, daily range): BP systolic 122–160; BP diastolic 60–76; PULSE 70–81; RESP 16–28; TEMP 97.4–98.5; O2SAT 91–96
[2016-05-18] MEDS: HYDROmorphone HCL 4 MG TAB PO PRN ×5 (01:26→20:44)
[2016-05-18] MEDS: SODIUM CHLORIDE 0.9% FLUSH 5 ML FLUSH FLUSH PRN (02:50)
[2016-05-18] MEDS: HYDROmorphone HCL PF 2 MG/ML VIAL IV PUSH PRN ×3 (02:50→11:30)
[2016-05-18] MEDS: LEVOTHYROXINE SODIUM 100 MCG TAB PO SCH (05:26)
[2016-05-18] MEDS: LEVOTHYROXINE SODIUM 75 MCG TAB PO SCH (05:27)
[2016-05-18] MEDS: CLINDAMYCIN 150 MG CAP PO SCH ×4 (05:27→22:55)
[2016-05-18] MEDS: INSULIN ASPART SUPPLEMENTAL SCALE SQ SCH ×3 (05:54→22:44)
[2016-05-18 06:35] LABS: MAGNESIUM 2.3 MG/DL (1.5-2.5); POTASSIUM 5.2 MEQ/L (3.5-5.1)
[2016-05-18] MEDS: LACTOBACILLUS ACIDOPHILUS TAB PO SCH ×3 (08:10→17:11)
[2016-05-18] MEDS: buPROPion HCL 150 MG SUSTAINED RELEASE TAB PO SCH ×2 (08:10→22:45)
[2016-05-18] MEDS: CARVEDILOL 12.5 MG TAB PO SCH ×2 (08:10→22:46)
[2016-05-18] MEDS: LIOTHYRONINE SODIUM 5 MCG TAB PO SCH (08:10)
[2016-05-18] MEDS: DULoxetine HCl DR 30 MG CAP PO SCH ×2 (08:10→22:45)
[2016-05-18] MEDS: INSULIN DETEMIR 100 UNITS/ML VIAL SQ SCH ×2 (08:11→22:45)
[2016-05-18] MEDS: HEPARIN SODIUM - SQ 10,000 UNITS/ML VIAL SQ SCH ×2 (08:11→22:46)
[2016-05-18] MEDS: SILVER SULFADIAZINE 1% CR 400 GM JAR TOPICAL SCH (08:21)
[2016-05-18] MEDS: SODIUM CHLORIDE 0.9% FLUSH 5 ML FLUSH FLUSH SCH ×2 (08:21→22:45)
[2016-05-18] MEDS: DOCUSATE SODIUM 100 MG CAP PO SCH ×2 (08:21→21:00)
[2016-05-18] MEDS: HYDROmorphone HCL 2 MG TAB PO PRN (08:42)
[2016-05-18] MEDS: CEFEPIME INJ 2,000 MG in SODIUM CHLORIDE 0.9% INJ 100 ML IV SCH (10:48)
--- NOTE | 2016-05-18 11:53 | HHI.NPPN ---
Subjective Complaints: Obesity Renal Failure: Acute History of Present Illness 60 y/o female who was previously admitted for cellulitis of lower extremities. She was discharged home with oral antibiotics and home health care. Apparently the wounds became worse, thus she sought medical care. PMH of obesity, DM II, hypothyroidism, PVD, and depression. She also has cardiomyopathy with an EF 30%. Additional Remarks Patient is alert, sitting on chair, pain in both the legs slightly better. Review of Systems General Constitutional: Fatigue Objective Data Data 05/17/16 05/18/16 19:00 07:00 Intake Total 480 ml 600 ml Balance 480 ml 600 ml Intake Oral 480 ml 600 ml # Voids 4 2 # Bowel Movements 2 3 Vital Signs Date Time Temp Pulse Resp B/P Pulse Ox O2 Delivery O2 Flow Rate FiO2 05/18/16 08:20 14 05/18/16 08:19 14 05/18/16 08:00 97.4 71 20 144/65 92 05/18/16 04:00 98.3 70 16 134/60 93 05/18/16 00:01 98.3 70 16 139/63 95 05/17/16 22:20 97 05/17/16 20:00 98.2 68 18 147/67 97 05/17/16 20:00 68 05/17/16 16:00 98.0 67 22 139/92 98 05/17/16 12:00 97.6 73 20 126/57 93 -: 05/16/16 0610 05/18/16 0547 Physical Exam General Appearance: Comfortable Eyes Eye Exam: Pupils Equal Throat Throat Exam: Oral Mucosa [place] & Moist Neck Neck Exam: Neck Supple Pulmonary Resp Exam: Clear Bilaterally, Breath Sounds Equal, No Distress Cardiology CV Exam: Regular, Normal Sinus Rhythm Gastrointestinal/Abdomen GI Exam: Soft, Non-Tender, Bowel Sounds Present Musculoskeletal MS Exam: Joints Intact, Good Strength Integumentary Skin Exam: Warm, Ulcer(s) Extremeties Extremities Exam: Moderate Edema, Pitting Edema ([place] legs covered with dressing.) Neurologic Neuro Exam: Alert, Awake, Oriented, Speech Clear, Moving All Extremities Psychiatric Psych Exam: Appropriate Responses Assessment/Plan Discussed Condition With: Patient Problem List: (1) Acute kidney failure, unspecified Plan: Renal function continues to improve JAYLAN due to use of NSAIDs. potassium in normal range, acidosis improved. Continue supportive care. Avoid NSAIDs and other potential nephrotoxic agents. Monitor urine output and renal function daily. Check UA to see if has Proteinuria. Dr. Estrada will follow from AM. (2) DM type 2, uncontrolled, with neuropathy Plan: continue insulin coverage. Maintain blood glucose between 140 and 180. Avoid Metformin. (3) Cellulitis and abscess of lower extremity Plan: ID following On Zyvox and Cefepime. monitor clinically, continue wound care (4) PVD (peripheral vascular disease) Plan: with multiple ulcers on lower extremities vascular following Ellen Willingham MD May 18, 2016 11:53
--- NOTE | 2016-05-18 12:30 | HHI.PR ---
Subjective Remarks The pt was crying during her dressing changes. Family at the bedside and very concerned. Nursing at the bedside as well. The pt says her pain is better controlled when she's not getting dressing changes. She complains of a burning pain. Objective Vitals Vital Signs Date Time Temp Pulse Resp B/P Pulse Ox O2 Delivery O2 Flow Rate FiO2 05/18/16 08:20 14 05/18/16 08:19 14 05/18/16 08:00 97.4 71 20 144/65 92 05/18/16 04:00 98.3 70 16 134/60 93 05/18/16 00:01 98.3 70 16 139/63 95 05/17/16 22:20 97 05/17/16 20:00 98.2 68 18 147/67 97 05/17/16 20:00 68 05/17/16 16:00 98.0 67 22 139/92 98 I/O 05/17/16 05/17/16 05/17/16 05/18/16 05/18/16 05/18/16 07:00 15:00 23:00 07:00 15:00 23:00 Intake Total 480 ml 240 ml 360 ml Balance 480 ml 240 ml 360 ml Intake Oral 480 ml 240 ml 360 ml # Voids 4 2 # Bowel Movements 2 1 2 Result Diagram: 05/16/16 0610 05/18/16 0547 Imaging Last Impressions Renal Ultrasound 05/14/16 1457 Signed Impressions: Service Date/Time: Saturday, May 14, 2016 15:20 - CONCLUSION: 1. Increased echogenicity of the kidneys suggesting underlying medical renal disease. No findings to indicate renal obstruction. Jose Rogers MD Lower Extremity Ultrasound 05/14/16 0948 Signed Impressions: Service Date/Time: Saturday, May 14, 2016 14:30 - CONCLUSION: 1. No DVT identified. 2. No abscess seen in the subcutaneous soft tissues Jose Rogers MD Foot X-Ray 05/14/16 0000 Signed Impressions: Service Date/Time: Saturday, May 14, 2016 19:35 - CONCLUSION: 1. Extensive soft tissue swelling with no evidence to suggest osteomyelitis. 2. There are no radiopaque foreign bodies. Janes Danielson MD Chest X-Ray 05/13/16 1632 Signed Impressions: Service Date/Time: Friday, May 13, 2016 17:23 - CONCLUSION: No acute disease. Shamar Banuelos MD Objective Remarks GENERAL: In pain, uncomfortable. SKIN: Warm and dry. HEAD: Normocephalic. EYES: No scleral icterus. No injection or drainage. NECK: Supple, trachea midline. No JVD or lymphadenopathy. CARDIOVASCULAR: Regular rate and rhythm without murmurs, gallops, or rubs. RESPIRATORY: Breath sounds equal bilaterally. No accessory muscle use. GASTROINTESTINAL: Abdomen soft, non-tender, nondistended. MUSCULOSKELETAL: No cyanosis. Bilateral lower extremity venous stasis wounds noted. Eschar on the toes of left foot. 1+ lower extremity edema. BACK: Nontender without obvious deformity. No CVA tenderness. NEURO: No gross deficits. PSYCH: Anxious. Medications and IVs Current Medications Medications (Trade) Dose Ordered Sig/Virgilio Route Start Time Stop Time Status Last Admin (NS Flush) 2 ml UNSCH PRN FLUSH 05/13/16 18:45 05/18/16 02:50 (NS Flush) 2 ml BID FLUSH 05/13/16 21:00 05/18/16 08:21 (Zofran Inj) 4 mg Q6H PRN IVP 05/13/16 18:45 05/15/16 08:07 (Dulcolax Supp) 10 mg DAILY PRN ND 05/13/16 18:45 (Milk Of Magnesia Liq) 30 ml Q12H PRN PO 05/13/16 18:45 (Senokot) 17.2 mg Q12H PRN PO 05/13/16 18:45 (Heparin Inj) 5,000 units Q12H SQ 05/13/16 20:00 05/18/16 08:11 (Narcan Inj) 0.4 mg UNSCH PRN IV 05/13/16 18:45 (Wellbutrin Sr) 150 mg Q12HR PO 05/13/16 21:00 05/18/16 08:10 (Coreg) 25 mg BID PO 05/13/16 21:00 05/18/16 08:10 (D50w (Vial) Inj) 25 ml UNSCH PRN IV PUSH 05/13/16 19:00 (Glucagon Inj) 1 mg UNSCH PRN OTHER 05/13/16 19:00 (Synthroid) 75 mcg DAILY@06 PO 05/14/16 06:00 05/18/16 05:27 (Synthroid) 100 mcg DAILY@06 PO 05/14/16 06:00 05/18/16 05:26 (Cytomel) 5 mcg DAILY PO 05/14/16 09:00 05/18/16 08:10 Lactobacillus Acidophilus 1 tab 1 tab TID PO 05/14/16 09:00 05/18/16 08:10 (Maxipime Inj/NS Inj) 100 ml @ 200 mls/hr Q24H IV 05/14/16 12:00 05/18/16 10:48 (Cymbalta Dr) 30 mg BID PO 05/14/16 21:00 05/18/16 08:10 (Silvadene 1% Cream (400 Gm)) 1 applic DAILY TOPICAL 05/14/16 18:00 05/18/16 08:21 (Levemir Inj) 15 units Q12HR SQ 05/16/16 21:00 05/18/16 08:11 (Dilaudid) 2 mg Q4H PRN PO 05/17/16 10:00 05/18/16 08:42 (Dilaudid) 4 mg Q4H PRN PO 05/17/16 10:00 05/18/16 10:48 (Colace) 100 mg BID PO 05/17/16 10:00 05/17/16 10:00 (Cleocin) 300 mg Q6HR PO 05/17/16 12:00 05/18/16 10:47 (Dilaudid Pf Inj) 3 mg Q4H PRN IV PUSH 05/18/16 16:00 UNV (Neurontin) 300 mg TID PO 05/18/16 13:00 UNV (Dilaudid Pf Inj) 1 mg Q4H PRN IV PUSH 05/18/16 12:30 UNV A/P Problem List: (1) Cellulitis and abscess of lower extremity ICD Code: L02.419 Status: Acute (2) Acute kidney failure, unspecified ICD Code: N17.9 Status: Acute Assessment and Plan Bilateral nonhealing venous stasis ulcers/ Bilateral lower extremity cellulitis Failure of outpatient treatment. Vascular surgery evaluated. Not able to do contrast study secondary to acute kidney injury on admission. Status post debridement by Dr. Colon on 05/15. - Continue pain control with a bowel regimen. Adjusted 05/18. Neurontin added. - Continue antibiotics as per infectious disease. D/c Zyvox. - wound care per podiatry. - consult palliative care for pain control if no improvement with adjustments made 05/18. Acute kidney injury. Creatinine 4.5 on admission. Most recent baseline 1.15 on April 24. Likely secondary to NSAIDs in conjunction with losartan. Patient says she was taking "handfuls" of NSAIDs. Appreciate nephrology consult. Creatinine continues to improve. - Continue to hold losartan, Lasix. Avoid nephrotoxins. - follow up with nephrology. - follow BMP. - UA pending. Cardiomyopathy Ejection fraction 30%. Has lower extremity edema. - Watch fluid status closely. - Continue Coreg - Hold Lasix due to kidney injury. Diabetes Is on long-acting insulin at home. - Patient is on glargine 20 units twice daily at home. We'll start back on Levemir 15 units twice daily. Hyponatremia 128 on admission. Improved. - follow BMP. Prophylaxis. Subcutaneous heparin. Discharge Planning Awaiting clinical improvement. Janes Hopson DO May 18, 2016 12:30
[2016-05-18] MEDS: GABAPENTIN 300 MG CAP PO SCH ×2 (13:00→17:12)
[2016-05-18] MEDS: HYDROmorphone HCL PF 4 MG/ML VIAL IV PUSH PRN ×2 (17:00→22:49)
[2016-05-19] VITALS (9 sets, daily range): BP systolic 134–147; BP diastolic 57–72; PULSE 71–89; RESP 16–22; TEMP 98.3–99; O2SAT 92–97
[2016-05-19] MEDS: HYDROmorphone HCL 4 MG TAB PO PRN ×4 (02:12→15:17)
[2016-05-19 03:10] LABS: BACTERIA, URINE RARE /hpf; BLOOD, URINE SMALL (NEG); COMMENT (UR) CULTURE INDICATED; CULTURE IF INDICATED CULTURE INDICATED; GLUCOSE,URINE TRACE mg/dL (NEG); HYALINE CAST, URINE 6 /lpf (RARE); KETONE, URINE NEG (NEG); MUCUS URINE FEW /lpf (OCC); NITRITE,URINE NEG (NEG); PH, URINE 5.5 (5.0-8.5); SQUAMOUS EPITHELIAL CELL URINE 1 /hpf (0-5); TRANSITIONAL EPI CELLS, URINE <1 /hpf; URINE COLOR YELLOW (YELLW/STRAW)
[2016-05-19] MEDS: HYDROmorphone HCL PF 4 MG/ML VIAL IV PUSH PRN ×4 (03:54→22:01)
[2016-05-19] MEDS: LEVOTHYROXINE SODIUM 100 MCG TAB PO SCH (06:25)
[2016-05-19] MEDS: INSULIN ASPART SUPPLEMENTAL SCALE SQ SCH ×4 (06:25→20:36)
[2016-05-19] MEDS: LEVOTHYROXINE SODIUM 75 MCG TAB PO SCH (06:25)
[2016-05-19] MEDS: CLINDAMYCIN 150 MG CAP PO SCH ×4 (06:25→23:45)
[2016-05-19] MEDS: HYDROmorphone HCL PF 1 MG/ML VIAL IV PUSH PRN (08:16)
[2016-05-19] MEDS: SODIUM CHLORIDE 0.9% FLUSH 5 ML FLUSH FLUSH SCH ×2 (08:17→20:33)
[2016-05-19] MEDS: buPROPion HCL 150 MG SUSTAINED RELEASE TAB PO SCH ×2 (08:19→20:36)
[2016-05-19] MEDS: DULoxetine HCl DR 30 MG CAP PO SCH ×2 (08:19→20:34)
[2016-05-19] MEDS: CARVEDILOL 12.5 MG TAB PO SCH ×2 (08:19→20:34)
[2016-05-19] MEDS: GABAPENTIN 300 MG CAP PO SCH ×3 (08:20→17:28)
[2016-05-19] MEDS: HEPARIN SODIUM - SQ 10,000 UNITS/ML VIAL SQ SCH ×2 (08:20→20:33)
[2016-05-19] MEDS: LACTOBACILLUS ACIDOPHILUS TAB PO SCH ×3 (08:20→17:28)
[2016-05-19] MEDS: SILVER SULFADIAZINE 1% CR 400 GM JAR TOPICAL SCH (08:21)
[2016-05-19] MEDS: INSULIN DETEMIR 100 UNITS/ML VIAL SQ SCH ×2 (08:21→20:36)
[2016-05-19] MEDS: LIOTHYRONINE SODIUM 5 MCG TAB PO SCH (08:32)
[2016-05-19] MEDS: DOCUSATE SODIUM 100 MG CAP PO SCH ×2 (09:00→20:35)
[2016-05-19] MEDS: CEFEPIME INJ 2,000 MG in SODIUM CHLORIDE 0.9% INJ 100 ML IV SCH (11:08)
[2016-05-19 11:28] LABS: BICARBONATE 26.1 MEQ/L (21.0-32.0); MAGNESIUM 2.2 MG/DL (1.5-2.5); POTASSIUM 5.1 MEQ/L (3.5-5.1)
--- NOTE | 2016-05-19 15:28 | HHI.PR ---
Subjective Remarks The pt's family was at the bedside and their questions were answered. The pt said her pain was better. She said she got a little loopy on the pain medications but she said she feels a lot better. Nursing at the bedside. Objective Vitals Vital Signs Date Time Temp Pulse Resp B/P Pulse Ox O2 Delivery O2 Flow Rate FiO2 05/19/16 12:00 99.0 72 22 134/57 92 05/19/16 09:45 96 Nasal Cannula 21 05/19/16 08:24 76 05/19/16 08:00 98.5 71 20 136/64 97 05/19/16 04:00 98.5 75 16 135/72 92 05/19/16 00:00 98.5 78 18 147/65 92 05/18/16 20:00 98.3 79 28 160/76 96 05/18/16 19:51 81 05/18/16 16:00 98.3 77 20 140/71 91 I/O 05/18/16 05/18/16 05/18/16 05/19/16 05/19/16 05/19/16 06:59 14:59 22:59 06:59 14:59 22:59 Intake Total 360 ml 840 ml 362 ml 242 ml Output Total 800 ml Balance 360 ml 840 ml 362 ml -558 ml Intake Oral 360 ml 840 ml 360 ml 240 ml IV Total 2 ml 2 ml Output Urine Total 800 ml # Voids 2 3 3 # Bowel Movements 2 2 2 0 Result Diagram: 05/16/16 0610 05/19/16 0837 Imaging Last Impressions Renal Ultrasound 05/14/16 1457 Signed Impressions: Service Date/Time: Saturday, May 14, 2016 15:20 - CONCLUSION: 1. Increased echogenicity of the kidneys suggesting underlying medical renal disease. No findings to indicate renal obstruction. Jose Rogers MD Lower Extremity Ultrasound 05/14/16 0948 Signed Impressions: Service Date/Time: Saturday, May 14, 2016 14:30 - CONCLUSION: 1. No DVT identified. 2. No abscess seen in the subcutaneous soft tissues Jose Rogers MD Foot X-Ray 05/14/16 0000 Signed Impressions: Service Date/Time: Saturday, May 14, 2016 19:35 - CONCLUSION: 1. Extensive soft tissue swelling with no evidence to suggest osteomyelitis. 2. There are no radiopaque foreign bodies. Janes Danielson MD Chest X-Ray 05/13/16 4498 Signed Impressions: Service Date/Time: Friday, May 13, 2016 17:23 - CONCLUSION: No acute disease. Shamar Banuelos MD Objective Remarks GENERAL: Resting comfortably. SKIN: Warm and dry. HEAD: Normocephalic. EYES: No scleral icterus. No injection or drainage. NECK: Supple, trachea midline. No JVD or lymphadenopathy. CARDIOVASCULAR: Regular rate and rhythm without murmurs, gallops, or rubs. RESPIRATORY: Breath sounds equal bilaterally. No accessory muscle use. GASTROINTESTINAL: Abdomen soft, non-tender, nondistended. MUSCULOSKELETAL: No cyanosis. Bilateral lower extremity venous stasis wounds noted. Eschar on the toes of left foot. 1+ lower extremity edema. BACK: Nontender without obvious deformity. No CVA tenderness. NEURO: No gross deficits. PSYCH: Anxious. Medications and IVs Current Medications Medications (Trade) Dose Ordered Sig/Virgilio Route Start Time Stop Time Status Last Admin (NS Flush) 2 ml UNSCH PRN FLUSH 05/13/16 18:45 05/18/16 02:50 (NS Flush) 2 ml BID FLUSH 05/13/16 21:00 05/19/16 08:17 (Zofran Inj) 4 mg Q6H PRN IVP 05/13/16 18:45 05/15/16 08:07 (Dulcolax Supp) 10 mg DAILY PRN OR 05/13/16 18:45 (Milk Of Magnesia Liq) 30 ml Q12H PRN PO 05/13/16 18:45 (Senokot) 17.2 mg Q12H PRN PO 05/13/16 18:45 (Heparin Inj) 5,000 units Q12H SQ 05/13/16 20:00 05/19/16 08:20 (Narcan Inj) 0.4 mg UNSCH PRN IV 05/13/16 18:45 (Wellbutrin Sr) 150 mg Q12HR PO 05/13/16 21:00 05/19/16 08:19 (Coreg) 25 mg BID PO 05/13/16 21:00 05/19/16 08:19 (D50w (Vial) Inj) 25 ml UNSCH PRN IV PUSH 05/13/16 19:00 (Glucagon Inj) 1 mg UNSCH PRN OTHER 05/13/16 19:00 (Synthroid) 75 mcg DAILY@06 PO 05/14/16 06:00 05/19/16 06:25 (Synthroid) 100 mcg DAILY@06 PO 05/14/16 06:00 05/19/16 06:25 (Cytomel) 5 mcg DAILY PO 05/14/16 09:00 05/19/16 08:32 Lactobacillus Acidophilus 1 tab 1 tab TID PO 05/14/16 09:00 05/19/16 13:11 (Maxipime Inj/NS Inj) 100 ml @ 200 mls/hr Q24H IV 05/14/16 12:00 05/19/16 11:08 (Cymbalta Dr) 30 mg BID PO 05/14/16 21:00 05/19/16 08:19 (Silvadene 1% Cream (400 Gm)) 1 applic DAILY TOPICAL 05/14/16 18:00 05/19/16 08:21 (Levemir Inj) 15 units Q12HR SQ 05/16/16 21:00 05/19/16 08:21 (Dilaudid) 2 mg Q4H PRN PO 05/17/16 10:00 05/18/16 08:42 (Dilaudid) 4 mg Q4H PRN PO 05/17/16 10:00 05/19/16 15:17 (Colace) 100 mg BID PO 05/17/16 10:00 05/17/16 10:00 (Cleocin) 300 mg Q6HR PO 05/17/16 12:00 05/19/16 11:08 (Dilaudid Pf Inj) 3 mg Q4H PRN IV PUSH 05/18/16 16:00 05/19/16 13:09 (Neurontin) 300 mg TID PO 05/18/16 13:00 05/19/16 13:11 (Dilaudid Pf Inj) 1 mg Q4H PRN IV PUSH 05/18/16 12:30 05/19/16 08:16 A/P Problem List: (1) Cellulitis and abscess of lower extremity ICD Code: L02.419 Status: Acute (2) Acute kidney failure, unspecified ICD Code: N17.9 Status: Acute Assessment and Plan Bilateral nonhealing venous stasis ulcers/ Bilateral lower extremity cellulitis Failure of outpatient treatment. Vascular surgery evaluated. Not able to do contrast study secondary to acute kidney injury on admission. Status post debridement by Dr. Colon on 05/15. - Continue pain control with a bowel regimen. Adjusted 05/19. Will decrease IV Dilaudid and start MS Contin. - Continue antibiotics as per infectious disease. D/c Zyvox. - wound care per podiatry. - consult palliative care for pain control if no improvement with adjustments made 05/19. Acute kidney injury. Creatinine 4.5 on admission. Most recent baseline 1.15 on April 24. Likely secondary to NSAIDs in conjunction with losartan. Patient says she was taking "handfuls" of NSAIDs. Appreciate nephrology consult. Creatinine continues to improve. - Continue to hold losartan, Lasix. Avoid nephrotoxins. - follow up with nephrology. - follow BMP. - UA indicative on infection. On antibiotics. Cardiomyopathy Ejection fraction 30%. Has lower extremity edema. - Continue Coreg - Hold Lasix due to kidney injury. Diabetes Is on long-acting insulin at home. - Patient is on glargine 20 units twice daily at home. We'll start back on Levemir 15 units twice daily. Hyponatremia 128 on admission. Improved. - follow BMP. Prophylaxis. Subcutaneous heparin. Discharge Planning D/c to SNF when pain controlled and cleared by SUYAPA. Janes Hopson DO May 19, 2016 15:28
[2016-05-19] MEDS: MORPHINE SULFATE 15 MG CONTROLLED RELEASE TAB PO SCH (20:31)
[2016-05-20] VITALS (9 sets, daily range): BP systolic 109–158; BP diastolic 56–87; PULSE 78–104; RESP 18–20; TEMP 98–99.1; O2SAT 93–98
[2016-05-20] MEDS: HYDROmorphone HCL 4 MG TAB PO PRN ×3 (00:32→12:12)
[2016-05-20] MEDS: HYDROmorphone HCL PF 4 MG/ML VIAL IV PUSH PRN (02:04)
[2016-05-20] MEDS: LEVOTHYROXINE SODIUM 75 MCG TAB PO SCH (05:17)
[2016-05-20] MEDS: LEVOTHYROXINE SODIUM 100 MCG TAB PO SCH (05:17)
[2016-05-20] MEDS: CLINDAMYCIN 150 MG CAP PO SCH ×4 (05:17→22:36)
[2016-05-20] MEDS: INSULIN ASPART SUPPLEMENTAL SCALE SQ SCH ×4 (05:18→22:27)
[2016-05-20 06:29] LABS: HEMATOCRIT 32.6 % (35.0-46.0); MEAN CELL VOLUME 81.6 FL (80.0-100.0); MEAN CORPUSCULAR HEMOGLOBIN 26.2 PG (27.0-34.0); MEAN CORPUSCULAR HGB CONC 32.2 % (32.0-36.0); PLATELET COUNT 306 TH/MM3 (150-450); RED BLOOD COUNT 3.99 MIL/MM3 (4.00-5.30); RED CELL DISTRIBUTION WIDTH 13.8 % (11.6-17.2); REVIEW FLAG FINAL; WHITE BLOOD COUNT 15.6 TH/MM3 (4.0-11.0)
[2016-05-20 06:43] LABS: BICARBONATE 22.7 MEQ/L (21.0-32.0); MAGNESIUM 2.2 MG/DL (1.5-2.5); POTASSIUM 5.4 MEQ/L (3.5-5.1)
[2016-05-20] MEDS: DOCUSATE SODIUM 100 MG CAP PO SCH ×2 (07:28→22:28)
[2016-05-20] MEDS: DULoxetine HCl DR 30 MG CAP PO SCH ×2 (07:29→22:25)
[2016-05-20] MEDS: LACTOBACILLUS ACIDOPHILUS TAB PO SCH ×3 (07:29→17:39)
[2016-05-20] MEDS: CARVEDILOL 12.5 MG TAB PO SCH ×2 (07:29→22:23)
[2016-05-20] MEDS: MORPHINE SULFATE 15 MG CONTROLLED RELEASE TAB PO SCH (07:30)
[2016-05-20] MEDS: buPROPion HCL 150 MG SUSTAINED RELEASE TAB PO SCH ×2 (07:30→22:24)
[2016-05-20] MEDS: LIOTHYRONINE SODIUM 5 MCG TAB PO SCH (07:31)
[2016-05-20] MEDS: GABAPENTIN 300 MG CAP PO SCH ×3 (07:31→17:39)
[2016-05-20] MEDS: SODIUM CHLORIDE 0.9% FLUSH 5 ML FLUSH FLUSH SCH ×2 (07:31→22:26)
[2016-05-20] MEDS: HEPARIN SODIUM - SQ 10,000 UNITS/ML VIAL SQ SCH ×2 (07:31→22:26)
[2016-05-20] MEDS: INSULIN DETEMIR 100 UNITS/ML VIAL SQ SCH ×2 (07:32→22:24)
[2016-05-20] MEDS: SILVER SULFADIAZINE 1% CR 400 GM JAR TOPICAL SCH (07:32)
[2016-05-20] MEDS ORDERED: SODIUM POLYSTYRENE SULFONATE SUSP 15 GM/60 ML CUP PO ONE (08:15)
[2016-05-20] MEDS: HYDROmorphone HCL PF 1 MG/ML VIAL IV PUSH PRN (09:59)
[2016-05-20] MEDS: CEFEPIME INJ 2,000 MG in SODIUM CHLORIDE 0.9% INJ 100 ML IV SCH (12:13)
[2016-05-20] MEDS ORDERED: MORPHINE SULFATE 15 MG CONTROLLED RELEASE TAB PO ONE (12:15)
--- NOTE | 2016-05-20 12:23 | HHI.PR ---
Subjective Remarks The patient was working with physical therapy. She was crying a lot. She said her pain was not well-controlled all the time. She also mentioned that her right arm has limited range of motion after she injured it recently. She was requesting increased pain medication. Objective Vitals Vital Signs Date Time Temp Pulse Resp B/P Pulse Ox O2 Delivery O2 Flow Rate FiO2 05/20/16 12:00 98.3 88 20 125/87 98 05/20/16 08:12 78 05/20/16 08:00 99.1 82 18 134/69 96 05/20/16 06:57 96 21 05/20/16 05:40 98.2 80 20 140/64 94 05/20/16 00:38 98.0 104 20 114/72 93 05/19/16 20:52 98.3 77 21 138/68 96 05/19/16 20:23 89 05/19/16 16:00 98.4 80 20 141/65 97 I/O 05/19/16 05/19/16 05/19/16 05/20/16 05/20/16 05/20/16 07:00 15:00 23:00 07:00 15:00 23:00 Intake Total 242 ml 720 ml 2 ml 242 ml Output Total 800 ml 1250 ml Balance -558 ml -530 ml 2 ml 242 ml Intake Oral 240 ml 720 ml 240 ml IV Total 2 ml 2 ml 2 ml Output Urine Total 800 ml 1250 ml # Voids 2 # Bowel Movements 0 2 Result Diagram: 05/20/16 0516 05/20/16 0516 Imaging Last Impressions Renal Ultrasound 05/14/16 1457 Signed Impressions: Service Date/Time: Saturday, May 14, 2016 15:20 - CONCLUSION: 1. Increased echogenicity of the kidneys suggesting underlying medical renal disease. No findings to indicate renal obstruction. Jose Rogers MD Lower Extremity Ultrasound 05/14/16 0948 Signed Impressions: Service Date/Time: Saturday, May 14, 2016 14:30 - CONCLUSION: 1. No DVT identified. 2. No abscess seen in the subcutaneous soft tissues Jose Rogers MD Foot X-Ray 05/14/16 0000 Signed Impressions: Service Date/Time: Saturday, May 14, 2016 19:35 - CONCLUSION: 1. Extensive soft tissue swelling with no evidence to suggest osteomyelitis. 2. There are no radiopaque foreign bodies. Janes Danielson MD Chest X-Ray 05/13/16 1632 Signed Impressions: Service Date/Time: Friday, May 13, 2016 17:23 - CONCLUSION: No acute disease. Shamar Banuelos MD Objective Remarks GENERAL: Resting comfortably. SKIN: Warm and dry. HEAD: Normocephalic. EYES: No scleral icterus. No injection or drainage. NECK: Supple, trachea midline. No JVD or lymphadenopathy. CARDIOVASCULAR: Regular rate and rhythm without murmurs, gallops, or rubs. RESPIRATORY: Breath sounds equal bilaterally. No accessory muscle use. GASTROINTESTINAL: Abdomen soft, non-tender, nondistended. MUSCULOSKELETAL: Right arm with limited range of motion. No tenderness to palpation of shoulder. No cyanosis. Bilateral lower extremity venous stasis wounds noted. Eschar on the toes of left foot. 1+ lower extremity edema. BACK: Nontender without obvious deformity. No CVA tenderness. NEURO: No gross deficits. PSYCH: Anxious. Medications and IVs Current Medications Medications (Trade) Dose Ordered Sig/Virgilio Route Start Time Stop Time Status Last Admin (NS Flush) 2 ml UNSCH PRN FLUSH 05/13/16 18:45 05/18/16 02:50 (NS Flush) 2 ml BID FLUSH 05/13/16 21:00 05/20/16 07:31 (Zofran Inj) 4 mg Q6H PRN IVP 05/13/16 18:45 05/15/16 08:07 (Dulcolax Supp) 10 mg DAILY PRN [place] 05/13/16 18:45 (Milk Of Magnesia Liq) 30 ml Q12H PRN PO 05/13/16 18:45 (Senokot) 17.2 mg Q12H PRN PO 05/13/16 18:45 (Heparin Inj) 5,000 units Q12H SQ 05/13/16 20:00 05/20/16 07:31 (Narcan Inj) 0.4 mg UNSCH PRN IV 05/13/16 18:45 (Wellbutrin Sr) 150 mg Q12HR PO 05/13/16 21:00 05/20/16 07:30 (Coreg) 25 mg BID PO 05/13/16 21:00 05/20/16 07:29 (D50w (Vial) Inj) 25 ml UNSCH PRN IV PUSH 05/13/16 19:00 (Glucagon Inj) 1 mg UNSCH PRN OTHER 05/13/16 19:00 (Synthroid) 75 mcg DAILY@06 PO 05/14/16 06:00 05/20/16 05:17 (Synthroid) 100 mcg DAILY@06 PO 05/14/16 06:00 05/20/16 05:17 (Cytomel) 5 mcg DAILY PO 05/14/16 09:00 05/20/16 07:31 Lactobacillus Acidophilus 1 tab 1 tab TID PO 05/14/16 09:00 05/20/16 12:11 (Maxipime Inj/NS Inj) 100 ml @ 200 mls/hr Q24H IV 05/14/16 12:00 05/20/16 12:13 (Cymbalta Dr) 30 mg BID PO 05/14/16 21:00 05/20/16 07:29 (Silvadene 1% Cream (400 Gm)) 1 applic DAILY TOPICAL 05/14/16 18:00 05/20/16 07:32 (Levemir Inj) 15 units Q12HR SQ 05/16/16 21:00 05/20/16 07:32 (Dilaudid) 2 mg Q4H PRN PO 05/17/16 10:00 05/18/16 08:42 (Dilaudid) 4 mg Q4H PRN PO 05/17/16 10:00 05/20/16 12:12 (Colace) 100 mg BID PO 05/17/16 10:00 05/17/16 10:00 (Cleocin) 300 mg Q6HR PO 05/17/16 12:00 05/20/16 11:35 (Neurontin) 300 mg TID PO 05/18/16 13:00 05/20/16 12:11 (Dilaudid Pf Inj) 1 mg Q4H PRN IV PUSH 05/18/16 12:30 05/20/16 09:59 (Dilaudid Pf Inj) 2 mg Q4H PRN IV PUSH 05/19/16 16:00 05/20/16 02:04 (Oramorph Sr) 30 mg Q12HR PO 05/20/16 21:00 A/P Problem List: (1) Cellulitis and abscess of lower extremity ICD Code: L02.419 Status: Acute (2) Acute kidney failure, unspecified ICD Code: N17.9 Status: Acute Assessment and Plan Bilateral nonhealing venous stasis ulcers/ Bilateral lower extremity cellulitis Failure of outpatient treatment. Vascular surgery evaluated. Not able to do contrast study secondary to acute kidney injury on admission. Status post debridement by Dr. Colon on 05/15. The patient has continued severe pain . - Continue pain control with a bowel regimen. Adjusted 05/19. Will decrease IV Dilaudid and increase MS Contin. - Continue antibiotics as per infectious disease. - wound care per podiatry. - consult palliative care for pain control 05/20. Acute kidney injury. Creatinine 4.5 on admission. Most recent baseline 1.15 on April 24. Likely secondary to NSAIDs in conjunction with losartan. Patient says she was taking "handfuls" of NSAIDs. Appreciate nephrology consult. Creatinine continues to improve. - Continue to hold losartan, Lasix. Avoid nephrotoxins. - follow up with nephrology. - follow BMP. - UA indicative on infection. On antibiotics. Cardiomyopathy Ejection fraction 30%. Has lower extremity edema. - Continue Coreg - Hold Lasix due to kidney injury. Diabetes Is on long-acting insulin at home. - Patient is on glargine 20 units twice daily at home. We'll increase Levemir to 20 units twice daily 05/20. Hyponatremia 128 on admission. Improved. - follow BMP. Prophylaxis. Subcutaneous heparin. Discharge Planning D/c to SNF when pain controlled and cleared by ID. Janes Hopson DO May 20, 2016 12:23
--- NOTE | 2016-05-20 12:34 | HHI.IDPN ---
Subjective Subjective Remarks Notes reviewed Main issue with her is pain control No fever Had debridement of her wounds May 15 Not elevating BLE due to the pain Antibiotics Cefepime Clindamycin Lines PIV Past Medical History PVD - has CTA last year and has lesions that could be corrected Hypertension Diabetes Cardiomyopathysustained after contrast-induced flash pulmonary edema- latest EF was 30% in March 2016. Obesity Hypothyroidism History of dermoid cyststatus post left oophorectomy 25 years ago Past Surgical History Left oophorectomy for dermoid cyst removal Cholecystectomy Hernia repair Allergies: Coded Allergies: Contrast Media (Verified Allergy, Severe, Flash pulmonary edema , 05/13/16 ) PEANUTS (Verified Allergy, Severe, rash, 05/13/16) Objective . Vital Signs Date Time Temp Pulse Resp B/P Pulse Ox O2 Delivery O2 Flow Rate FiO2 05/20/16 12:00 98.3 88 20 125/87 98 05/20/16 08:12 78 05/20/16 08:00 99.1 82 18 134/69 96 05/20/16 06:57 96 21 05/20/16 05:40 98.2 80 20 140/64 94 05/20/16 00:38 98.0 104 20 114/72 93 05/19/16 20:52 98.3 77 21 138/68 96 05/19/16 20:23 89 05/19/16 16:00 98.4 80 20 141/65 97 05/19/16 05/19/16 05/20/16 15:00 23:00 07:00 Intake Total 720 ml 2 ml 242 ml Output Total 1250 ml Balance -530 ml 2 ml 242 ml Intake Oral 720 ml 240 ml IV Total 2 ml 2 ml Output Urine Total 1250 ml # Voids 2 # Bowel Movements 2 . Laboratory Tests Test 05/20/16 05:16 White Blood Count 15.6 TH/MM3 Red Blood Count 3.99 MIL/MM3 Hemoglobin 10.5 GM/DL Hematocrit 32.6 % Mean Corpuscular Volume 81.6 FL Mean Corpuscular Hemoglobin 26.2 PG Mean Corpuscular Hemoglobin 32.2 % Concent Red Cell Distribution Width 13.8 % Platelet Count 306 TH/MM3 Mean Platelet Volume 7.1 FL Laboratory Tests Test 05/19/16 05/20/16 08:37 05:16 Sodium Level 133 MEQ/L 134 MEQ/L Potassium Level 5.1 MEQ/L 5.4 MEQ/L Chloride Level 101 MEQ/L 103 MEQ/L Carbon Dioxide Level 26.1 MEQ/L 22.7 MEQ/L Anion Gap 6 MEQ/L 8 MEQ/L Blood Urea Nitrogen 43 MG/DL 44 MG/DL Creatinine 1.03 MG/DL 1.17 MG/DL Estimat Glomerular Filtration 54 ML/MIN 47 ML/MIN Rate Random Glucose 193 MG/DL 170 MG/DL Calcium Level 9.6 MG/DL 9.4 MG/DL Magnesium Level 2.2 MG/DL 2.2 MG/DL Microbiology Date/Time Procedure Status Source Growth 05/19/16 02:30 Urine Culture - Preliminary Resulted Urine Clean Catch Dian [facility] Renal Ultrasound 05/14/16 1457 Signed Impressions: Service Date/Time: Saturday, May 14, 2016 15:20 - CONCLUSION: 1. Increased echogenicity of the kidneys suggesting underlying medical renal disease. No findings to indicate renal obstruction. Jose Rogers MD Lower Extremity Ultrasound 05/14/16 0948 Signed Impressions: Service Date/Time: Saturday, May 14, 2016 14:30 - CONCLUSION: 1. No DVT identified. 2. No abscess seen in the subcutaneous soft tissues Jose Rogers MD Foot X-Ray 05/14/16 0000 Signed Impressions: Service Date/Time: Saturday, May 14, 2016 19:35 - CONCLUSION: 1. Extensive soft tissue swelling with no evidence to suggest osteomyelitis. 2. There are no radiopaque foreign bodies. Janes Danielson MD Chest X-Ray 05/13/16 1632 Signed Impressions: Service Date/Time: Friday, May 13, 2016 17:23 - CONCLUSION: No acute disease. Shamar Banuelos MD Physical Exam GENERAL: awake and alert, not in respiratory distress. SKIN: Cool and dry. No generalized rash or ecchymosis. HEENT: Ney conjunctivae. No scleral icterus. No injection or drainage. Moist oral mucosa. NECK: Supple, nontender, no meningeal signs. CARDIOVASCULAR: Regular rate and rhythm. No rubs. Soft heart sounds, soft murmur at base of the heart RESPIRATORY: Clear to auscultation. GASTROINTESTINAL: Abdomen soft, non-tender, nondistended. No guarding. MUSCULOSKELETAL: Extremities without clubbing. Has dressings BLE soaked with drainage. BLE edematous. NEUROLOGICAL: Non-focal PSYCH: cooperative LINE: Peripheral IV with no evidence of infection Assessment & Plan Remarks IMPRESSION BLE cellulitis, much improved with stasis ulcers BLE, worse on L than R - S/P debridement Has known PVD Cardiomyopathy Severe allergy to contrast media Low colony count Dian in urine Leukocytosis RECOMMENDATION Stop Cefepime Continue Clindamycin PO Cipro Wound care Follow CBC Main problem is pain control Patient not compliant with leg elevation Monitor progress Davida Quispe MD May 20, 2016 12:34
[2016-05-20] MEDS: CIPROFLOXACIN 500 MG TAB PO SCH ×2 (13:44→22:25)
[2016-05-20] MEDS ORDERED: LORazepam 1 MG TAB PO ONE (15:00)
[2016-05-20] MEDS: MORPHINE SULFATE 30 MG CONTROLLED RELEASE TAB PO SCH (22:29)
[2016-05-21] VITALS (7 sets, daily range): BP systolic 129–144; BP diastolic 60–72; PULSE 78–86; RESP 16–20; TEMP 97–98.4; O2SAT 92–96
[2016-05-21] MEDS: LEVOTHYROXINE SODIUM 75 MCG TAB PO SCH (05:45)
[2016-05-21] MEDS: LEVOTHYROXINE SODIUM 100 MCG TAB PO SCH (05:45)
[2016-05-21] MEDS: CLINDAMYCIN 150 MG CAP PO SCH ×4 (05:45→23:28)
[2016-05-21] MEDS: HYDROmorphone HCL 4 MG TAB PO PRN ×2 (06:18→18:40)
[2016-05-21] MEDS: INSULIN ASPART SUPPLEMENTAL SCALE SQ SCH ×4 (06:24→20:47)
[2016-05-21] MEDS: HYDROmorphone HCL PF 4 MG/ML VIAL IV PUSH PRN ×2 (07:26→15:25)
[2016-05-21 08:17] LABS: HEMATOCRIT 31.7 % (35.0-46.0); MEAN CELL VOLUME 82.2 FL (80.0-100.0); MEAN CORPUSCULAR HEMOGLOBIN 26.9 PG (27.0-34.0); MEAN CORPUSCULAR HGB CONC 32.7 % (32.0-36.0); PLATELET COUNT 293 TH/MM3 (150-450); RED BLOOD COUNT 3.86 MIL/MM3 (4.00-5.30); REVIEW FLAG FINAL
[2016-05-21] MEDS: GABAPENTIN 300 MG CAP PO SCH ×3 (08:47→18:40)
[2016-05-21] MEDS: buPROPion HCL 150 MG SUSTAINED RELEASE TAB PO SCH ×2 (08:47→20:46)
[2016-05-21] MEDS: LIOTHYRONINE SODIUM 5 MCG TAB PO SCH (08:47)
[2016-05-21] MEDS: LACTOBACILLUS ACIDOPHILUS TAB PO SCH ×3 (08:47→18:40)
[2016-05-21] MEDS: CIPROFLOXACIN 500 MG TAB PO SCH ×2 (08:48→20:46)
[2016-05-21] MEDS: HEPARIN SODIUM - SQ 10,000 UNITS/ML VIAL SQ SCH ×2 (08:48→20:46)
[2016-05-21] MEDS: SILVER SULFADIAZINE 1% CR 400 GM JAR TOPICAL SCH (08:48)
[2016-05-21] MEDS: INSULIN DETEMIR 100 UNITS/ML VIAL SQ SCH ×2 (08:48→20:46)
[2016-05-21] MEDS: CARVEDILOL 12.5 MG TAB PO SCH ×2 (08:48→20:46)
[2016-05-21] MEDS: DOCUSATE SODIUM 100 MG CAP PO SCH ×2 (08:48→20:46)
[2016-05-21] MEDS: DULoxetine HCl DR 30 MG CAP PO SCH ×2 (08:48→20:46)
[2016-05-21] MEDS: SODIUM CHLORIDE 0.9% FLUSH 5 ML FLUSH FLUSH SCH ×2 (08:48→20:46)
[2016-05-21] MEDS: MORPHINE SULFATE 30 MG CONTROLLED RELEASE TAB PO SCH (08:49)
[2016-05-21 08:51] LABS: BICARBONATE 22.1 MEQ/L (21.0-32.0); MAGNESIUM 2.1 MG/DL (1.5-2.5); POTASSIUM 4.5 MEQ/L (3.5-5.1)
--- NOTE | 2016-05-21 12:09 | PD.CONS ---
Consult Service Palliative Care Consult Requested By [facility] Primary Care Physician Adan Murillo MD Reason for Consultation a. To assist with evaluation and management of symptoms including:Pain b. To assist medical decision maker(s) with: better understanding of current medical conditions; weighing benefits/burdens of medical treatment options; making medical treatment decisions. HPI History of Present Illness 60-year-old with a past medical history of hypothyroidism, hypertension, EF of 30-35%, PAD, chronic bilateral lower extremity wounds presented to the ER on for severe bilateral lower extremity pain and worsening wounds. Per patient they all started with bug bites. Patient was recently hospitalized and discharged April 25 for similar circumstances. In the ER: * WBC is 12.8, hemoglobin is 11.0, hematocrit 32.8, platelet is 390 * Sodium is 129, potassium is 4.2, chloride 99, bicarbonate 16.7, BUN 70%, creatinine is 4.50 * AST is 14, ALT 16, alkaline phosphatase is 122, albumin 3.2 * PTT 37.8 * UA shows large amount of leukocyte esterase, negative nitrite, culture was indicated * Chest x-ray shows no acute disease * Patient was given vancomycin and Zosyn in the ER. Patient was admitted to the hospital for bilateral lower extremity erythema, chronic ulcers distal to the knees. Care was transferred to hospitalist service. 05/14/2016= patient was given IV hydration cautiously. Creatinine has gradually improved to 3.75. Nephrology was consulted due to acute renal failure. Ultram renal cell was ordered. Infectious disease was also consulted was been managing antibiotics.Vascular surgery was consulted. Venous duplex was ordered to rule out DVT. 05/14-== in the meantime patient has been complaining of pain. She stated that the Percocet has not been working. Creatinine has declined to 2.08 on . Vascular surgery evaluated. Not able to do contrast study secondary to acute kidney injury on admission. Status post debridement by Dr. Colon on 05/15. -== patient continued to have pain and palliative care was consulted to help with pain management. Prior to admission she has been taking handfuls of NSAIDs was have likely cause some renal insufficiency. Patient continued to be on antibiotics. 05/20/2016- Pt states pain not well controlled, working with physical therapy. Current pain regimen includes Oramorph 30 mg PO q12 hours in which pt refused. Pt currently also on Dilaudid 2-4 mg po q 4 hours prn pain. Dilaudid 1 iv q 4 hour prn dressing change. Dilaudid 2 mg IV q 4 hour prn breakthrough pain. Pt on Neurontin 300 mg PO TID. Pt endorses her pain is better today than the past few days. She endorses burning sensation the way down to her feet, and it hurts to even walk. Rate pain 7/10, but at other times to other physician endorses 10/10. Discussion at bedside with patient and pt's family at bedside. Her goals is to get these wound better and to get pain under control, not ready for just comfort only. Long discussion about her kidneys, her pvd, and the fine balance between pain control and side effects. Pt and family understand there is no "magic medicine. " to get pain well controll without side effects. She states if pain could be manage to level 5 or so she would be better. Explained the role of long acting pain meds. She is amenable to start Fentanyl patch, and titrate in the next few days base on need. Amenable to increase gabapentin tomorrow if pain persists. Function/Cognitive Trajectory Pt endorse pain to even walk and do some of her adls. Review of Systems Constitutional: COMPLAINS OF: Fatigue Musculoskeletal: COMPLAINS OF: Muscle aches, Decreased range of motion Neurologic: COMPLAINS OF: Poor Balance Psychiatric: COMPLAINS OF: Anxiety Past Family Social History Coded Allergies: Contrast Media (Verified Allergy, Severe, Flash pulmonary edema , 05/13/16 ) PEANUTS (Verified Allergy, Severe, rash, 05/13/16) Past Medical History Hypertension Diabetes Cardiomyopathysustained after contrast-induced flash pulmonary edema- latest EF was 30% in March 2016. Obesity Hypothyroidism History of dermoid cyststatus post left oophorectomy 25 years ago Past Surgical History Left oophorectomy for dermoid cyst removal Cholecystectomy Hernia repair Reported Medications Levothyroxine (Levothyroxine Sodium) 175 Mcg Tab 175 Mcg PO DAILY Liothyronine (Liothyronine Sodium) 5 Mcg Tab 5 Mcg PO DAILY Lasix (Furosemide) 20 Mg Tab 20 Mg PO DAILY Losartan (Losartan Potassium) 100 Mg Tab 100 Mg PO DAILY Cymbalta DR (Duloxetine HCl) 30 Mg Capdr 30 Mg PO BID Wellbutrin SR 12 HR (Bupropion HCl) 150 Mg Tab 150 Mg PO Q12HR Carvedilol 25 Mg Tab 25 Mg PO BID Humalog Inj (Insulin Human Lispro) 1,000 Unit/10 Ml Vial 5-25 Units SQ DIRECTED Max dose at bedtime:( )units; sugars < 70,(0)units; sugars 150-199,(5)units; sugars 200-249,(10)units; sugars 250-299,(15)units; sugars 300-349,(20)units; sugars more than 349,(25)units. Lantus Inj (Insulin Glargine) 1,000 Unit/10 Ml Vial 22 Units SQ BID Current Medications Medications (Trade) Dose Ordered Sig/Virgilio Route Start Time Stop Time Status Last Admin (NS Flush) 2 ml UNSCH PRN FLUSH 05/13/16 18:45 05/18/16 02:50 (NS Flush) 2 ml BID FLUSH 05/13/16 21:00 05/21/16 08:48 (Zofran Inj) 4 mg Q6H PRN IVP 05/13/16 18:45 05/15/16 08:07 (Dulcolax Supp) 10 mg DAILY PRN TN 05/13/16 18:45 (Milk Of Magnesia Liq) 30 ml Q12H PRN PO 05/13/16 18:45 (Senokot) 17.2 mg Q12H PRN PO 05/13/16 18:45 (Heparin Inj) 5,000 units Q12H SQ 05/13/16 20:00 05/21/16 08:48 (Narcan Inj) 0.4 mg UNSCH PRN IV 05/13/16 18:45 (Wellbutrin Sr) 150 mg Q12HR PO 05/13/16 21:00 05/21/16 08:47 (Coreg) 25 mg BID PO 05/13/16 21:00 05/21/16 08:48 (D50w (Vial) Inj) 25 ml UNSCH PRN IV PUSH 05/13/16 19:00 (Glucagon Inj) 1 mg UNSCH PRN OTHER 05/13/16 19:00 (Synthroid) 75 mcg DAILY@06 PO 05/14/16 06:00 05/21/16 05:45 (Synthroid) 100 mcg DAILY@06 PO 05/14/16 06:00 05/21/16 05:45 (Cytomel) 5 mcg DAILY PO 05/14/16 09:00 05/21/16 08:47 (Lactinex) 1 tab TID PO 05/14/16 09:00 05/21/16 08:47 (Cymbalta Dr) 30 mg BID PO 05/14/16 21:00 05/21/16 08:48 (Silvadene 1% Cream (400 Gm)) 1 applic DAILY TOPICAL 05/14/16 18:00 05/21/16 08:48 (Dilaudid) 2 mg Q4H PRN PO 05/17/16 10:00 05/18/16 08:42 (Dilaudid) 4 mg Q4H PRN PO 05/17/16 10:00 05/21/16 06:18 (Colace) 100 mg BID PO 05/17/16 10:00 05/21/16 08:48 (Cleocin) 300 mg Q6HR PO 05/17/16 12:00 05/21/16 05:45 (Neurontin) 300 mg TID PO 05/18/16 13:00 05/21/16 08:47 (Dilaudid Pf Inj) 1 mg Q4H PRN IV PUSH 05/18/16 12:30 05/20/16 09:59 (Dilaudid Pf Inj) 2 mg Q4H PRN IV PUSH 05/19/16 16:00 05/21/16 07:26 (Oramorph Sr) 30 mg Q12HR PO 05/20/16 21:00 (Levemir Inj) 20 units Q12HR SQ 05/20/16 21:00 05/21/16 08:48 (Cipro) 500 mg Q12HR PO 05/20/16 12:45 05/21/16 08:48 Family History Hx of DM father and mother Cancer Mother Astma Father Substance Use Tobacco:yes quit in the ' Alcohol:denies Prescription med abuse:she denies Illicits:denies Psychosocial History Spiritual/Cultural Factors Listed as Cheondoism Living Will: Never completed Health Care Surrogate: Never completed Durable Power of Internet Salesperson: Never completed Physical Exam Vital Signs Date Time Temp Pulse Resp B/P Pulse Ox O2 Delivery O2 Flow Rate FiO2 05/21/16 10:52 86 05/21/16 08:00 98.4 84 20 144/72 92 05/21/16 04:00 97.0 80 16 133/63 94 05/21/16 00:00 97.0 84 18 129/60 93 05/20/16 20:18 86 05/20/16 20:00 98.7 84 18 109/56 93 05/20/16 16:00 99.1 87 20 158/81 98 05/20/16 12:00 98.3 88 20 125/87 98 05/20/16 05/21/16 18:59 06:59 Intake Total 720 ml 680 ml Output Total 900 ml 400 ml Balance -180 ml 280 ml Intake Oral 720 ml 680 ml Output Urine Total 900 ml 400 ml # Voids 2 # Bowel Movements 1 Exam CONSTITUTIONAL/GENERAL: This is an adequately nourished patient, sitting in chair, was having lunch and did not appear too painful.. SKIN: No jaundice, rashes, or lesions. Ecchymoses on upper extremities. No wounds seen anteriorly. Skin temperature appropriate. Not diaphoretic. HEAD: Atraumatic. Normocephalic. EYES: Pupils equal and round and reactive. Extraocular motions intact. No scleral icterus. No injection or drainage. Fundi not examined. ENT: Hearing grossly normal. Nose without bleeding or purulent drainage. Throat without visible erythema, exudates, masses, or lesions. NECK: Trachea midline. Supple, nontender. No palpable thyroid enlargement or nodularity. CARDIOVASCULAR: Regular rate and rhythm without murmurs, gallops, or rubs. No JVD. Peripheral pulses symmetric. RESPIRATORY/CHEST: Symmetric, unlabored respirations. Clear to auscultation. Breath sounds equal bilaterally. No wheezes, rales, or rhonchi. GASTROINTESTINAL: Abdomen soft, non-tender, nondistended. No hepato-splenomegaly , or palpable masses. No guarding. Bowel sounds present. GENITOURINARY: Without palpable bladder distension. Mcintyre catheter in place. MUSCULOSKELETAL: Extremities dressing in place bilaterally, c/d/i. LYMPHATICS: No palpable cervical or supraclavicular adenopathy. NEUROLOGICAL: Awake and alert. Motor and sensory grossly within normal limits. Follows commands. Cognitively sharp. Moves all extremities. PSYCHIATRIC: No obvious anxiety/depression. no apparent hallucinations or other psychotic thought process. Diagnostic Tests Laboratory Laboratory Tests Test 1205/19/16 05/20/16 05/21/16 02:30 08:37 05:16 07:00 Urine Color YELLOW (YELLW/STRAW) Urine Turbidity HAZY (CLEAR) Urine pH 5.5 (5.0-8.5) Urine Specific [place] 1.015 (1.002-1.035) Urine Protein 30 mg/dL (NEG-TRACE) Urine Glucose (UA) TRACE mg/dL (NEG) Urine Ketones NEG mg/dL (NEG) Urine Occult Blood SMALL (NEG) Urine Nitrite NEG (NEG) Urine Bilirubin NEG (NEG) Urine Urobilinogen LESS THAN 2.0 MG/DL (LESS THAN 2.0) Urine Leukocyte Esterase LARGE (NEG) Urine RBC 3 /hpf (0-3) Urine WBC 32 /hpf (0-5) Urine Squamous Epithelial 1 /hpf (0-5) Cells Urine Transitional Epithelial <1 /hpf (NONE) Cells Urine Bacteria RARE /hpf (NONE) Urine Hyaline Casts 6 /lpf (RARE) Urine Mucus FEW /lpf (OCC) Urine Yeast (Budding) RARE (NONE) Microscopic Urinalysis Comment CULTURE INDICATED Sodium Level 133 MEQ/L 134 MEQ/L 133 MEQ/L (136-145) (136-145) (136-145) Potassium Level 5.1 MEQ/L 5.4 MEQ/L 4.5 MEQ/L (3.5-5.1) (3.5-5.1) (3.5-5.1) Chloride Level 101 MEQ/L 103 MEQ/L 102 MEQ/L (98-107) (98-107) (98-107) Carbon Dioxide Level 26.1 MEQ/L 22.7 MEQ/L 22.1 MEQ/L (21.0-32.0) (21.0-32.0) (21.0-32.0) Anion Gap 6 MEQ/L (5-15) 8 MEQ/L (5-15) 9 MEQ/L (5-15) Blood Urea Nitrogen 43 MG/DL (7-18) 44 MG/DL (7-18) 46 MG/DL (7-18) Creatinine 1.03 MG/DL 1.17 MG/DL 1.34 MG/DL (0.50-1.00) (0.50-1.00) (0.50-1.00) Estimat Glomerular Filtration 54 ML/MIN (>89) 47 ML/MIN (>89) 40 ML/MIN (>89) Rate Random Glucose 193 MG/DL 170 MG/DL 203 MG/DL (74-106) (74-106) (74-106) Calcium Level 9.6 MG/DL 9.4 MG/DL 8.9 MG/DL (8.5-10.1) (8.5-10.1) (8.5-10.1) Magnesium Level 2.2 MG/DL 2.2 MG/DL 2.1 MG/DL (1.5-2.5) (1.5-2.5) (1.5-2.5) White Blood Count 15.6 TH/MM3 14.0 TH/MM3 (4.0-11.0) (4.0-11.0) Red Blood Count 3.99 MIL/MM3 3.86 MIL/MM3 (4.00-5.30) (4.00-5.30) Hemoglobin 10.5 GM/DL 10.4 GM/DL (11.6-15.3) (11.6-15.3) Hematocrit 32.6 % 31.7 % (35.0-46.0) (35.0-46.0) Mean Corpuscular Volume 81.6 FL 82.2 FL (80.0-100.0) (80.0-100.0) Mean Corpuscular Hemoglobin 26.2 PG 26.9 PG (27.0-34.0) (27.0-34.0) Mean Corpuscular Hemoglobin 32.2 % 32.7 % Concent (32.0-36.0) (32.0-36.0) Red Cell Distribution Width 13.8 % 14.0 % (11.6-17.2) (11.6-17.2) Platelet Count 306 TH/MM3 293 TH/MM3 (150-450) (150-450) Mean Platelet Volume 7.1 FL 7.0 FL (7.0-11.0) (7.0-11.0) Result Diagram: 05/21/16 0700 05/21/16 0700 Microbiology Microbiology Date/Time Procedure Status Source Growth 05/19/16 02:30 Urine Culture - Final Complete Urine Clean Catch Dian Albicans Imaging Last Impressions Renal Ultrasound 05/14/16 1457 Signed Impressions: Service Date/Time: Saturday, May 14, 2016 15:20 - CONCLUSION: 1. Increased echogenicity of the kidneys suggesting underlying medical renal disease. No findings to indicate renal obstruction. Jose Rogers MD Lower Extremity Ultrasound 05/14/16 0948 Signed Impressions: Service Date/Time: Saturday, May 14, 2016 14:30 - CONCLUSION: 1. No DVT identified. 2. No abscess seen in the subcutaneous soft tissues Jose Rogers MD Foot X-Ray 05/14/16 0000 Signed Impressions: Service Date/Time: Saturday, May 14, 2016 19:35 - CONCLUSION: 1. Extensive soft tissue swelling with no evidence to suggest osteomyelitis. 2. There are no radiopaque foreign bodies. Janes Danielson MD Chest X-Ray 05/13/16 1632 Signed Impressions: Service Date/Time: Friday, May 13, 2016 17:23 - CONCLUSION: No acute disease. Shamar Banuelos MD Patient/Family Conference Present at Family Conference: pt's son and daughter Family Conference Time (mins): 45 Family Conference Location: Bedside Issues Discussed: * Palliative care role, purpose, approach * Additional medical, psychosocial, and spiritual history * Patients general health, functional status, and cognitive changes in the months leading up to the current hospitalization * Patient/family understanding of the current medical problems * Patient/family understanding of prognosis * Patients goals of care as best understood from advance directives and/or conversations and/or values * Current medical treatment options and benefits/burdens of those options * Likely scenarios comparing ongoing aggressive care with a transition to comfort measures only * Questions answered to the best of my ability * Palliative care contact information provided Assessment and Plan Disease Oriented Problem List: (1) Cellulitis and abscess of lower extremity Comment: Bilateraly non healing venous status ulcers. Failed outpatient treatment. Not able to do contrast study due to acute kindy injury. S/P debridement by podiatry. Severe pain (2) CHF (congestive heart failure) Comment: cardiomyopathy EF 30% (3) DM (diabetes mellitus), type 2, uncontrolled w/neurologic complication (4) PVD (peripheral vascular disease) (5) Allergic reaction to contrast dye Symptom Scale: (1) Pain 0-10 Scale: 7 Pertinent Non-Medical Issues Psychosocial: Spiritual: Legal: Ethical issues impacting care: Important Contacts Alfredo Lemos [phone] Prognosis 60 with cardiomyopathy and non healing ulcers 2nd to PVD. Prognosis is guarded to poor. At risk for sudden setback and decline. Likely will continue trend with multiple hospitalization. Code Status: Full Code Plan == Pain. from pvd, wounds, and neuropathy, mostly in the lower ext. Cont gabapentinm, will titrate up tomorrow. Cont dilaudid prn. given pt's renal status: fentanyl may be the better option, will start fentanyl patch 25 mcg ( explained to family will need a few days to titrate up ) Pt has been refusing Long acting Morphine (we will d/c). == anxiety- very anxious and anticipation of pain is a big part of her discomfort. Ativan 1 mg iv q 4 hour prn anxiety. == goals: aggressive. pt wants wound to get better and to continue to get treatment. They want to follow up with Dr. Garcias. Not ready to transition to comfort measures. want pain control to mostly 5-6/10 if possible == Proxy - would be the spouse == Palliative care will continue to follow. == d/w attending physician Time Spent Total Floor Time (mins): 45 Face to Face Time (mins): 68 >50% Counseling/Coord of Care: Yes Thank you for the opportunity to participate in the care of Ms. Lemos. Attestation To help prompt me to consider important information that might be impacting today's encounter and assessment, information from prior notes written by myself or my colleagues may have been "brought forward" into today's note. My signature on this note, however, is an attestation that I personally performed the exam, history, and/or decision-making noted today, and, unless otherwise indicated, the interactions with patient, family, and staff as well as the review of records all occurred today. I also attest that the listed assessment and stated plan reflect my best clinical judgment today based on the combination of historical information, prior notes, and today's exam/ interactions. When time spent is documented, it refers only to time spent today by the signer, or if indicated, combined time spent today by collaborating physician/nurse practitioner. Mariusz Reed MD May 21, 2016 12:09
[2016-05-21] MEDS: HYDROmorphone HCL 2 MG TAB PO PRN (12:46)
[2016-05-21] MEDS ORDERED: LORazepam 2 MG/ML VIAL IV PUSH PRN (15:30)
--- NOTE | 2016-05-21 15:39 | HHI.PR ---
Subjective Remarks The patient was seen along with family. Nursing was at the bedside. The patient said that her pain was an 11 out of 10 in severity. She did say she was having a better day than yesterday. She said that she was having some right shoulder pain and limited range of motion in that shoulder. Her son was worried that she was unable to text with her phone effectively. Objective Vitals Vital Signs Date Time Temp Pulse Resp B/P Pulse Ox O2 Delivery O2 Flow Rate FiO2 05/21/16 12:00 98.4 79 20 131/60 96 05/21/16 10:52 86 05/21/16 08:00 98.4 84 20 144/72 92 05/21/16 04:00 97.0 80 16 133/63 94 05/21/16 00:00 97.0 84 18 129/60 93 05/20/16 20:18 86 05/20/16 20:00 98.7 84 18 109/56 93 05/20/16 16:00 99.1 87 20 158/81 98 I/O 05/20/16 05/20/16 05/20/16 05/21/16 05/21/16 05/21/16 07:00 15:00 23:00 07:00 15:00 23:00 Intake Total 242 ml 720 ml 480 ml 200 ml Output Total 900 ml 400 ml Balance 242 ml -180 ml 480 ml -200 ml Intake Oral 240 ml 720 ml 480 ml 200 ml IV Total 2 ml Output Urine Total 900 ml 400 ml # Voids 2 # Bowel Movements 1 Result Diagram: 05/21/16 0700 05/21/16 0700 Imaging Last Impressions Renal Ultrasound 05/14/16 1457 Signed Impressions: Service Date/Time: Saturday, May 14, 2016 15:20 - CONCLUSION: 1. Increased echogenicity of the kidneys suggesting underlying medical renal disease. No findings to indicate renal obstruction. Jose Rogers MD Lower Extremity Ultrasound 05/14/16 0948 Signed Impressions: Service Date/Time: Saturday, May 14, 2016 14:30 - CONCLUSION: 1. No DVT identified. 2. No abscess seen in the subcutaneous soft tissues Jose Rogers MD Foot X-Ray 05/14/16 0000 Signed Impressions: Service Date/Time: Saturday, May 14, 2016 19:35 - CONCLUSION: 1. Extensive soft tissue swelling with no evidence to suggest osteomyelitis. 2. There are no radiopaque foreign bodies. Janes Danielson MD Chest X-Ray 05/13/16 1632 Signed Impressions: Service Date/Time: Friday, May 13, 2016 17:23 - CONCLUSION: No acute disease. Shamar Banuelos MD Objective Remarks GENERAL: Resting comfortably. SKIN: Warm and dry. HEAD: Normocephalic. EYES: No scleral icterus. No injection or drainage. NECK: Supple, trachea midline. No JVD or lymphadenopathy. CARDIOVASCULAR: Regular rate and rhythm without murmurs, gallops, or rubs. RESPIRATORY: Breath sounds equal bilaterally. No accessory muscle use. GASTROINTESTINAL: Abdomen soft, non-tender, nondistended. MUSCULOSKELETAL: Right arm with limited range of motion. No tenderness to palpation of shoulder. No cyanosis. Bilateral lower extremity venous stasis wounds noted. Eschar on the toes of left foot. 1+ lower extremity edema. BACK: Nontender without obvious deformity. No CVA tenderness. NEURO: No gross deficits. PSYCH: Anxious. Medications and IVs Current Medications Medications (Trade) Dose Ordered Sig/Virgilio Route Start Time Stop Time Status Last Admin (NS Flush) 2 ml UNSCH PRN FLUSH 05/13/16 18:45 05/18/16 02:50 (NS Flush) 2 ml BID FLUSH 05/13/16 21:00 05/21/16 08:48 (Zofran Inj) 4 mg Q6H PRN IVP 05/13/16 18:45 05/15/16 08:07 (Dulcolax Supp) 10 mg DAILY PRN [place] 05/13/16 18:45 (Milk Of Magnesia Liq) 30 ml Q12H PRN PO 05/13/16 18:45 (Senokot) 17.2 mg Q12H PRN PO 05/13/16 18:45 (Heparin Inj) 5,000 units Q12H SQ 05/13/16 20:00 05/21/16 08:48 (Narcan Inj) 0.4 mg UNSCH PRN IV 05/13/16 18:45 (Wellbutrin Sr) 150 mg Q12HR PO 05/13/16 21:00 05/21/16 08:47 (Coreg) 25 mg BID PO 05/13/16 21:00 05/21/16 08:48 (D50w (Vial) Inj) 25 ml UNSCH PRN IV PUSH 05/13/16 19:00 (Glucagon Inj) 1 mg UNSCH PRN OTHER 05/13/16 19:00 (Synthroid) 75 mcg DAILY@06 PO 05/14/16 06:00 05/21/16 05:45 (Synthroid) 100 mcg DAILY@06 PO 05/14/16 06:00 05/21/16 05:45 (Cytomel) 5 mcg DAILY PO 05/14/16 09:00 05/21/16 08:47 (Lactinex) 1 tab TID PO 05/14/16 09:00 05/21/16 12:42 (Cymbalta Dr) 30 mg BID PO 05/14/16 21:00 05/21/16 08:48 (Silvadene 1% Cream (400 Gm)) 1 applic DAILY TOPICAL 05/14/16 18:00 05/21/16 08:48 (Dilaudid) 2 mg Q4H PRN PO 05/17/16 10:00 05/21/16 12:46 (Dilaudid) 4 mg Q4H PRN PO 05/17/16 10:00 05/21/16 06:18 (Colace) 100 mg BID PO 05/17/16 10:00 05/21/16 08:48 (Cleocin) 300 mg Q6HR PO 05/17/16 12:00 05/21/16 12:42 (Neurontin) 300 mg TID PO 05/18/16 13:00 05/21/16 12:43 (Dilaudid Pf Inj) 1 mg Q4H PRN IV PUSH 05/18/16 12:30 05/20/16 09:59 (Dilaudid Pf Inj) 2 mg Q4H PRN IV PUSH 05/19/16 16:00 05/21/16 15:25 (Levemir Inj) 20 units Q12HR SQ 05/20/16 21:00 05/21/16 08:48 (Cipro) 500 mg Q12HR PO 05/20/16 12:45 05/21/16 08:48 (Duragesic 25 Mcg Patch.72 Hr) 1 patch Q3D TD 05/21/16 15:30 UNV Miscellaneous Information 1 Q3D TD 05/24/16 15:30 UNV (Ativan Inj) 1 mg Q4H PRN IV PUSH 05/21/16 15:30 UNV A/P Problem List: (1) Cellulitis and abscess of lower extremity ICD Code: L02.419 Status: Acute (2) Acute kidney failure, unspecified ICD Code: N17.9 Status: Acute Assessment and Plan Bilateral nonhealing venous stasis ulcers/ Bilateral lower extremity cellulitis Failure of outpatient treatment. Vascular surgery evaluated. Not able to do contrast study secondary to acute kidney injury on admission. Status post debridement by Dr. Colon on 05/15. Pain improved 05/21. Palliative care consult appreciated. - Continue pain control with a bowel regimen. Adjusted by palliative care 05/21. - Continue antibiotics as per infectious disease. - wound care per podiatry. Acute kidney injury. Creatinine 4.5 on admission. Most recent baseline 1.15 on April 24. Likely secondary to NSAIDs in conjunction with losartan. Patient says she was taking "handfuls" of NSAIDs. Appreciate nephrology consult. Creatinine continues to improve. - Continue to hold losartan, Lasix. Avoid nephrotoxins. - follow up with nephrology. - follow BMP. - UA indicative on infection. On antibiotics. Cardiomyopathy Ejection fraction 30%. Has lower extremity edema. - Continue Coreg - Hold Lasix due to kidney injury. Diabetes Is on long-acting insulin at home. - Patient is on glargine 20 units twice daily at home. We'll increase Levemir to 20 units twice daily. Improved glucose 05/21. Hyponatremia 128 on admission. Improved. - follow BMP. Right shoulder pain Exam unremarkable. Likely muscle strain. - continue pain control. - physical therapy. Prophylaxis. Subcutaneous heparin. Discharge Planning D/c to SNF when pain controlled and cleared by Janes Mora DO May 21, 2016 15:39
[2016-05-21] MEDS ORDERED: fentaNYL 25 MCG/HR PATCH TD SCH (16:00)
[2016-05-21] MEDS: HYDROmorphone HCL PF 1 MG/ML VIAL IV PUSH PRN (23:28)
[2016-05-22] VITALS (7 sets, daily range): BP systolic 119–164; BP diastolic 52–74; PULSE 71–84; RESP 16–20; TEMP 97.4–98.6; O2SAT 93–99
[2016-05-22] MEDS: HYDROmorphone HCL 4 MG TAB PO PRN ×3 (03:29→15:39)
[2016-05-22] MEDS: LEVOTHYROXINE SODIUM 100 MCG TAB PO SCH (05:15)
[2016-05-22] MEDS: CLINDAMYCIN 150 MG CAP PO SCH ×4 (05:15→23:13)
[2016-05-22] MEDS: HYDROmorphone HCL PF 4 MG/ML VIAL IV PUSH PRN ×2 (05:15→11:33)
[2016-05-22] MEDS: LEVOTHYROXINE SODIUM 75 MCG TAB PO SCH (05:15)
[2016-05-22] MEDS: INSULIN ASPART SUPPLEMENTAL SCALE SQ SCH ×4 (07:00→21:58)
[2016-05-22] MEDS: DULoxetine HCl DR 30 MG CAP PO SCH ×2 (08:24→21:57)
[2016-05-22] MEDS: CARVEDILOL 12.5 MG TAB PO SCH ×2 (08:24→21:57)
[2016-05-22] MEDS: LACTOBACILLUS ACIDOPHILUS TAB PO SCH ×3 (08:24→18:18)
[2016-05-22] MEDS: buPROPion HCL 150 MG SUSTAINED RELEASE TAB PO SCH ×2 (08:25→21:57)
[2016-05-22] MEDS: LIOTHYRONINE SODIUM 5 MCG TAB PO SCH (08:25)
[2016-05-22] MEDS: GABAPENTIN 300 MG CAP PO SCH (08:25)
[2016-05-22] MEDS: CIPROFLOXACIN 500 MG TAB PO SCH ×2 (08:25→21:57)
[2016-05-22] MEDS: SODIUM CHLORIDE 0.9% FLUSH 5 ML FLUSH FLUSH SCH ×2 (08:25→21:00)
[2016-05-22] MEDS: HEPARIN SODIUM - SQ 10,000 UNITS/ML VIAL SQ SCH ×2 (08:25→20:00)
[2016-05-22] MEDS: INSULIN DETEMIR 100 UNITS/ML VIAL SQ SCH ×2 (08:26→21:58)
[2016-05-22] MEDS: SILVER SULFADIAZINE 1% CR 400 GM JAR TOPICAL SCH (08:26)
[2016-05-22] MEDS: DOCUSATE SODIUM 100 MG CAP PO SCH ×2 (08:26→21:57)
[2016-05-22 09:14] LABS: HEMATOCRIT 31.8 % (35.0-46.0); MEAN CELL VOLUME 81.4 FL (80.0-100.0); MEAN CORPUSCULAR HEMOGLOBIN 26.1 PG (27.0-34.0); MEAN CORPUSCULAR HGB CONC 32.1 % (32.0-36.0); PLATELET COUNT 289 TH/MM3 (150-450); RED BLOOD COUNT 3.91 MIL/MM3 (4.00-5.30); RED CELL DISTRIBUTION WIDTH 14.1 % (11.6-17.2); REVIEW FLAG FINAL; WHITE BLOOD COUNT 13.8 TH/MM3 (4.0-11.0)
[2016-05-22 09:40] LABS: BICARBONATE 23.6 MEQ/L (21.0-32.0); MAGNESIUM 2.1 MG/DL (1.5-2.5); POTASSIUM 4.6 MEQ/L (3.5-5.1)
--- NOTE | 2016-05-22 10:56 | HHI.HCPN ---
Reason for visit a. To assist with evaluation and management of symptoms including:Pain b. To assist medical decision maker(s) with: better understanding of current medical conditions; weighing benefits/burdens of medical treatment options; making medical treatment decisions. Subjective/Interval History Pt endorses pain is well controlled, but with the prns. She stated she feels relatively good. I spoke with her about weaning off the IV dilaudid, as fentanyl build up. She states she slept well and currently not anxious. She continue endorse burning sensation of the feet, and legs. Amenable to increase Gabapentin today. Amenable to increase long acting if current rate of prn usage continues, will wait for Fentanyl to build up. Pt had bm. reviwed code status and living will , and pt state Full code, and she will think about Living will. 60-year-old with a past medical history of hypothyroidism, hypertension, EF of 30-35%, PAD, chronic bilateral lower extremity wounds presented to the ER on for severe bilateral lower extremity pain and worsening wounds. Per patient they all started with bug bites. Patient was recently hospitalized and discharged April 25 for similar circumstances. In the ER: * WBC is 12.8, hemoglobin is 11.0, hematocrit 32.8, platelet is 390 * Sodium is 129, potassium is 4.2, chloride 99, bicarbonate 16.7, BUN 70%, creatinine is 4.50 * AST is 14, ALT 16, alkaline phosphatase is 122, albumin 3.2 * PTT 37.8 * UA shows large amount of leukocyte esterase, negative nitrite, culture was indicated * Chest x-ray shows no acute disease * Patient was given vancomycin and Zosyn in the ER. Patient was admitted to the hospital for bilateral lower extremity erythema, chronic ulcers distal to the knees. Care was transferred to hospitalist service. 05/14/2016= patient was given IV hydration cautiously. Creatinine has gradually improved to 3.75. Nephrology was consulted due to acute renal failure. Ultram renal cell was ordered. Infectious disease was also consulted was been managing antibiotics.Vascular surgery was consulted. Venous duplex was ordered to rule out DVT. 05/14-== in the meantime patient has been complaining of pain. She stated that the Percocet has not been working. Creatinine has declined to 2.08 on . Vascular surgery evaluated. Not able to do contrast study secondary to acute kidney injury on admission. Status post debridement by Dr. Colon on 05/15. -== patient continued to have pain and palliative care was consulted to help with pain management. Prior to admission she has been taking handfuls of NSAIDs was have likely cause some renal insufficiency. Patient continued to be on antibiotics. 05/20/2016- Pt states pain not well controlled, working with physical therapy. Current pain regimen includes Oramorph 30 mg PO q12 hours in which pt refused. Pt currently also on Dilaudid 2-4 mg po q 4 hours prn pain. Dilaudid 1 iv q 4 hour prn dressing change. Dilaudid 2 mg IV q 4 hour prn breakthrough pain. Pt on Neurontin 300 mg PO TID. Pt endorses her pain is better today than the past few days. She endorses burning sensation the way down to her feet, and it hurts to even walk. Rate pain 7/10, but at other times to other physician endorses 10/10. Discussion at bedside with patient and pt's family at bedside. Her goals is to get these wound better and to get pain under control, not ready for just comfort only. Long discussion about her kidneys, her pvd, and the fine balance between pain control and side effects. Pt and family understand there is no "magic medicine. " to get pain well controll without side effects. She states if pain could be manage to level 5 or so she would be better. Explained the role of long acting pain meds. She is amenable to start Fentanyl patch, and titrate in the next few days base on need. Amenable to increase gabapentin tomorrow if pain persists. Family/friend interactions no family at bedside today. Advance Directives Living Will: Never completed Health Care Surrogate: Never completed Durable Power of Ski Topper: Never completed Objective Vital Signs Date Time Temp Pulse Resp B/P Pulse Ox O2 Delivery O2 Flow Rate FiO2 05/22/16 08:00 97.5 76 20 137/68 93 05/22/16 04:00 97.7 72 16 136/60 99 05/22/16 00:00 98.4 84 18 136/73 97 05/21/16 20:00 82 05/21/16 20:00 98.1 83 18 141/64 94 05/21/16 16:00 97.8 78 20 138/61 92 05/21/16 12:00 98.4 79 20 131/60 96 05/21/16 10:52 86 Intake & Output 05/22/16 05/22/16 06:59 18:59 Intake Total 720 ml Output Total 700 ml Balance 20 ml Intake Oral 720 ml Output Urine Total 700 ml Physical Exam CONSTITUTIONAL/GENERAL: This is an adequately nourished patient, sitting in chair. SKIN: No jaundice, rashes, or lesions. Ecchymoses on upper extremities. No wounds seen anteriorly. Skin temperature appropriate. Not diaphoretic. HEAD: Atraumatic. Normocephalic. EYES: Pupils equal and round and reactive. Extraocular motions intact. No scleral icterus. No injection or drainage. Fundi not examined. ENT: Hearing grossly normal. Nose without bleeding or purulent drainage. Throat without visible erythema, exudates, masses, or lesions. NECK: Trachea midline. Supple, nontender. No palpable thyroid enlargement or nodularity. CARDIOVASCULAR: Regular rate and rhythm without murmurs, gallops, or rubs. No JVD. Peripheral pulses symmetric. RESPIRATORY/CHEST: Symmetric, unlabored respirations. Clear to auscultation. Breath sounds equal bilaterally. No wheezes, rales, or rhonchi. GASTROINTESTINAL: Abdomen soft, non-tender, nondistended. No hepato-splenomegaly , or palpable masses. No guarding. Bowel sounds present. GENITOURINARY: Without palpable bladder distension. Mcintyre catheter in place. MUSCULOSKELETAL: Extremities dressing in place bilaterally, c/d/i. LYMPHATICS: No palpable cervical or supraclavicular adenopathy. NEUROLOGICAL: Awake and alert. Motor and sensory grossly within normal limits. Follows commands. Cognitively sharp. Moves all extremities. PSYCHIATRIC: No obvious anxiety/depression. no apparent hallucinations or other psychotic thought process. Diagnostic Tests Laboratory Laboratory Tests Test 05/20/16 05/21/16 05/22/16 05:16 07:00 08:40 White Blood Count 15.6 TH/MM3 14.0 TH/MM3 13.8 TH/MM3 (4.0-11.0) (4.0-11.0) (4.0-11.0) Red Blood Count 3.99 MIL/MM3 3.86 MIL/MM3 3.91 MIL/MM3 (4.00-5.30) (4.00-5.30) (4.00-5.30) Hemoglobin 10.5 GM/DL 10.4 GM/DL 10.2 GM/DL (11.6-15.3) (11.6-15.3) (11.6-15.3) Hematocrit 32.6 % 31.7 % 31.8 % (35.0-46.0) (35.0-46.0) (35.0-46.0) Mean Corpuscular Volume 81.6 FL 82.2 FL 81.4 FL (80.0-100.0) (80.0-100.0) (80.0-100.0) Mean Corpuscular Hemoglobin 26.2 PG 26.9 PG 26.1 PG (27.0-34.0) (27.0-34.0) (27.0-34.0) Mean Corpuscular Hemoglobin 32.2 % 32.7 % 32.1 % Concent (32.0-36.0) (32.0-36.0) (32.0-36.0) Red Cell Distribution Width 13.8 % 14.0 % 14.1 % (11.6-17.2) (11.6-17.2) (11.6-17.2) Platelet Count 306 TH/MM3 293 TH/MM3 289 TH/MM3 (150-450) (150-450) (150-450) Mean Platelet Volume 7.1 FL 7.0 FL 7.1 FL (7.0-11.0) (7.0-11.0) (7.0-11.0) Sodium Level 134 MEQ/L 133 MEQ/L 129 MEQ/L (136-145) (136-145) (136-145) Potassium Level 5.4 MEQ/L 4.5 MEQ/L 4.6 MEQ/L (3.5-5.1) (3.5-5.1) (3.5-5.1) Chloride Level 103 MEQ/L 102 MEQ/L 97 MEQ/L (98-107) (98-107) (98-107) Carbon Dioxide Level 22.7 MEQ/L 22.1 MEQ/L 23.6 MEQ/L (21.0-32.0) (21.0-32.0) (21.0-32.0) Anion Gap 8 MEQ/L (5-15) 9 MEQ/L (5-15) 8 MEQ/L (5-15) Blood Urea Nitrogen 44 MG/DL (7-18) 46 MG/DL (7-18) 49 MG/DL (7-18) Creatinine 1.17 MG/DL 1.34 MG/DL 1.23 MG/DL (0.50-1.00) (0.50-1.00) (0.50-1.00) Estimat Glomerular Filtration 47 ML/MIN (>89) 40 ML/MIN (>89) 44 ML/MIN (>89) Rate Random Glucose 170 MG/DL 203 MG/DL 178 MG/DL (74-106) (74-106) (74-106) Calcium Level 9.4 MG/DL 8.9 MG/DL 8.8 MG/DL (8.5-10.1) (8.5-10.1) (8.5-10.1) Magnesium Level 2.2 MG/DL 2.1 MG/DL 2.1 MG/DL (1.5-2.5) (1.5-2.5) (1.5-2.5) Result Diagram: 05/22/1640 05/22/16839 Assessment and Plan Disease Oriented Problem List: (1) Cellulitis and abscess of lower extremity Comment: Bilateraly non healing venous status ulcers. Failed outpatient treatment. Not able to do contrast study due to acute kindy injury. S/P debridement by podiatry. Severe pain (2) CHF (congestive heart failure) Comment: cardiomyopathy EF 30% (3) DM (diabetes mellitus), type 2, uncontrolled w/neurologic complication (4) PVD (peripheral vascular disease) (5) Allergic reaction to contrast dye Symptom Scale: (1) Pain 0-10 Scale: 7 Pertinent Non-Medical Issues Psychosocial: Spiritual: Legal: Ethical issues impacting care: Important Contacts Alfredo Lemos [phone] Prognosis 60 with cardiomyopathy and non healing ulcers 2nd to PVD. Prognosis is guarded to poor. At risk for sudden setback and decline. Likely will continue trend with multiple hospitalization. Code Status: Full Code Plan == Pain. from pvd, wounds, and neuropathy, mostly in the lower ext. Increase Gabapentin today. Cont dilaudid prn. If current rate of prn usage continue, will consider increase Fentanyl or scheduling oral Dilaudid. Spoke with patient, and plan is to get pt off using IV dilaudid. == anxiety- very anxious and anticipation of pain is a big part of her discomfort. Ativan 1 mg iv q 4 hour prn anxiety, Will change to PO form today. == goals: aggressive. pt wants wound to get better and to continue to get treatment. They want to follow up with Dr. Garcias. Not ready to transition to comfort measures. want pain control to mostly 5-6/10 if possible == Proxy would be her spouse. == Code: Full == Unsure about peg or Trach. She will discuss with children. == Palliative care will continue to follow. Time Spent Total Floor Time (mins): 35 Face to Face Time (mins): 20 Attestation To help prompt me to consider important information that might be impacting today's encounter and assessment, information from prior notes written by myself or my colleagues may have been "brought forward" into today's note. My signature on this note, however, is an attestation that I personally performed the exam, history, and/or decision-making noted today, and, unless otherwise indicated, the interactions with patient, family, and staff as well as the review of records all occurred today. I also attest that the listed assessment and stated plan reflect my best clinical judgment today based on the combination of historical information, prior notes, and today's exam/ interactions. When time spent is documented, it refers only to time spent today by the signer, or if indicated, combined time spent today by collaborating physician/nurse practitioner. Mariusz Reed MD May 22, 2016 10:56
[2016-05-22] MEDS: GABAPENTIN 400 MG CAP PO SCH ×2 (11:33→21:57)
--- NOTE | 2016-05-22 18:32 | HHI.PR ---
Subjective Remarks The patient said she felt a lot better. She said she had a bowel movement. She wanted to know if the certified professional midwife would be stopping by tonight. She wanted the cardiac telemetry removed. She said she almost dropped in the toilet. Her son was at the bedside and his questions were answered. Discussed with nursing. Objective Vitals Vital Signs Date Time Temp Pulse Resp B/P Pulse Ox O2 Delivery O2 Flow Rate FiO2 05/22/16 16:00 97.4 81 20 119/52 96 05/22/16 12:00 97.6 71 20 164/74 94 05/22/16 08:35 75 05/22/16 08:00 97.5 76 20 137/68 93 05/22/16 04:00 97.7 72 16 136/60 99 05/22/16 00:00 98.4 84 18 136/73 97 05/21/16 20:00 82 05/21/16 20:00 98.1 83 18 141/64 94 I/O 05/21/16 05/21/16 05/21/16 05/22/16 05/22/16 05/22/16 07:00 15:00 23:00 07:00 15:00 23:00 Intake Total 200 ml 480 ml 480 ml 240 ml Output Total 400 ml 400 ml 700 ml Balance -200 ml 80 ml 480 ml -460 ml Intake Oral 200 ml 480 ml 480 ml 240 ml Output Urine Total 400 ml 400 ml 700 ml # Bowel Movements 2 Result Diagram: 05/22/16 0840 05/22/16 0840 Imaging Last Impressions Renal Ultrasound 05/14/16 1457 Signed Impressions: Service Date/Time: Saturday, May 14, 2016 15:20 - CONCLUSION: 1. Increased echogenicity of the kidneys suggesting underlying medical renal disease. No findings to indicate renal obstruction. Jose Rogers MD Lower Extremity Ultrasound 05/14/16 0948 Signed Impressions: Service Date/Time: Saturday, May 14, 2016 14:30 - CONCLUSION: 1. No DVT identified. 2. No abscess seen in the subcutaneous soft tissues Jose Rogers MD Foot X-Ray 05/14/16 0000 Signed Impressions: Service Date/Time: Saturday, May 14, 2016 19:35 - CONCLUSION: 1. Extensive soft tissue swelling with no evidence to suggest osteomyelitis. 2. There are no radiopaque foreign bodies. Janes Danielson MD Chest X-Ray 05/13/16 1632 Signed Impressions: Service Date/Time: Friday, May 13, 2016 17:23 - CONCLUSION: No acute disease. Shamar Banuelos MD Objective Remarks GENERAL: Resting comfortably. SKIN: Warm and dry. HEAD: Normocephalic. EYES: No scleral icterus. No injection or drainage. NECK: Supple, trachea midline. No JVD or lymphadenopathy. CARDIOVASCULAR: Regular rate and rhythm without murmurs, gallops, or rubs. RESPIRATORY: Breath sounds equal bilaterally. No accessory muscle use. GASTROINTESTINAL: Abdomen soft, non-tender, nondistended. MUSCULOSKELETAL: Right arm with limited range of motion. No tenderness to palpation of shoulder. No cyanosis. Bilateral lower extremity venous stasis wounds noted. Eschar on the toes of left foot. 1+ lower extremity edema. BACK: Nontender without obvious deformity. No CVA tenderness. NEURO: No gross deficits. PSYCH: Mood and affect appropriate. Medications and IVs Current Medications Medications (Trade) Dose Ordered Sig/Virgilio Route Start Time Stop Time Status Last Admin (NS Flush) 2 ml UNSCH PRN FLUSH 05/13/16 18:45 05/18/16 02:50 (NS Flush) 2 ml BID FLUSH 05/13/16 21:00 05/22/16 08:25 (Zofran Inj) 4 mg Q6H PRN IVP 05/13/16 18:45 05/15/16 08:07 (Dulcolax Supp) 10 mg DAILY PRN [place] 05/13/16 18:45 (Milk Of Magnesia Liq) 30 ml Q12H PRN PO 05/13/16 18:45 (Senokot) 17.2 mg Q12H PRN PO 05/13/16 18:45 (Heparin Inj) 5,000 units Q12H SQ 05/13/16 20:00 05/22/16 08:25 (Narcan Inj) 0.4 mg UNSCH PRN IV 05/13/16 18:45 (Wellbutrin Sr) 150 mg Q12HR PO 05/13/16 21:00 05/22/16 08:25 (Coreg) 25 mg BID PO 05/13/16 21:00 05/22/16 08:24 (D50w (Vial) Inj) 25 ml UNSCH PRN IV PUSH 05/13/16 19:00 (Glucagon Inj) 1 mg UNSCH PRN OTHER 05/13/16 19:00 (Synthroid) 75 mcg DAILY@06 PO 05/14/16 06:00 05/22/16 05:15 (Synthroid) 100 mcg DAILY@06 PO 05/14/16 06:00 05/22/16 05:15 (Cytomel) 5 mcg DAILY PO 05/14/16 09:00 05/22/16 08:25 (Lactinex) 1 tab TID PO 05/14/16 09:00 05/22/16 18:18 (Cymbalta Dr) 30 mg BID PO 05/14/16 21:00 05/22/16 08:24 (Silvadene 1% Cream (400 Gm)) 1 applic DAILY TOPICAL 05/14/16 18:00 05/22/16 08:26 (Dilaudid) 2 mg Q4H PRN PO 05/17/16 10:00 05/21/16 12:46 (Dilaudid) 4 mg Q4H PRN PO 05/17/16 10:00 05/22/16 15:39 (Colace) 100 mg BID PO 05/17/16 10:00 05/21/16 20:46 (Cleocin) 300 mg Q6HR PO 05/17/16 12:00 05/22/16 18:18 (Dilaudid Pf Inj) 1 mg Q4H PRN IV PUSH 05/18/16 12:30 05/21/16 23:28 (Dilaudid Pf Inj) 2 mg Q4H PRN IV PUSH 05/19/16 16:00 05/22/16 11:33 (Levemir Inj) 20 units Q12HR SQ 05/20/16 21:00 05/22/16 08:26 (Cipro) 500 mg Q12HR PO 05/20/16 12:45 05/22/16 08:25 (Duragesic 25 Mcg Patch.72 Hr) 1 patch Q3D TD 05/21/16 16:00 05/21/16 18:40 Miscellaneous Information 1 Q3D TD 05/24/16 16:00 (Neurontin) 400 mg BID PO 05/22/16 11:15 05/22/16 11:33 (Ativan Inj) 1 mg Q4H PRN PO 05/22/16 11:30 A/P Problem List: (1) Cellulitis and abscess of lower extremity ICD Code: L02.419 Status: Acute (2) Acute kidney failure, unspecified ICD Code: N17.9 Status: Acute Assessment and Plan Bilateral nonhealing venous stasis ulcers/ Bilateral lower extremity cellulitis Failure of outpatient treatment. Vascular surgery evaluated. Not able to do contrast study secondary to acute kidney injury on admission. Status post debridement by Dr. Colon on 05/15. Pain improved 05/21. Palliative care consult appreciated. - Continue pain control with a bowel regimen. Adjusted by palliative care 05/22. - Continue antibiotics as per infectious disease. - wound care per podiatry. Acute kidney injury. Creatinine 4.5 on admission. Most recent baseline 1.15 on April 24. Likely secondary to NSAIDs in conjunction with losartan. Patient says she was taking "handfuls" of NSAIDs. Appreciate nephrology consult. Creatinine has stabilized. - Continue to hold losartan, Lasix. Avoid nephrotoxins. - follow up with nephrology. - follow BMP. Cardiomyopathy Ejection fraction 30%. Has lower extremity edema. - Continue Coreg - Hold Lasix due to kidney injury. Diabetes Is on long-acting insulin at home. - Patient is on glargine 20 units twice daily at home. We'll increase Levemir to 20 units twice daily. Improved glucose 05/22. Hyponatremia 128 on admission. Stable. - follow BMP. Right shoulder pain Exam unremarkable. Likely muscle strain. - continue pain control. - physical therapy. Prophylaxis. Subcutaneous heparin. Discharge Planning D/c to SNF when pain controlled and cleared by Janes Mora DO May 22, 2016 18:32
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
[2016-05-22] MEDS: HYDROmorphone HCL PF 1 MG/ML VIAL IV PUSH PRN (21:53)
[2016-05-23 00:29] VITALS: BP 156/69; PULSE 91; RESP 20; TEMP 98; O2SAT 96
[2016-05-23] MEDS: HYDROmorphone HCL PF 4 MG/ML VIAL IV PUSH PRN (02:33)
[2016-05-23 04:08] VITALS: BP 141/72; PULSE 86; RESP 20; TEMP 98.4; O2SAT 96
[2016-05-23 05:08] LABS: HEMATOCRIT 31.5 % (35.0-46.0); MEAN CELL VOLUME 81.3 FL (80.0-100.0); MEAN CORPUSCULAR HEMOGLOBIN 26.5 PG (27.0-34.0); MEAN CORPUSCULAR HGB CONC 32.6 % (32.0-36.0); PLATELET COUNT 288 TH/MM3 (150-450); RED BLOOD COUNT 3.87 MIL/MM3 (4.00-5.30); RED CELL DISTRIBUTION WIDTH 13.7 % (11.6-17.2); WHITE BLOOD COUNT 14.1 TH/MM3 (4.0-11.0)
[2016-05-23 05:10] LABS: REVIEW FLAG FINAL
[2016-05-23 05:20] LABS: BICARBONATE 22.8 MEQ/L (21.0-32.0); MAGNESIUM 2.2 MG/DL (1.5-2.5); POTASSIUM 5.2 MEQ/L (3.5-5.1)
[2016-05-23] MEDS: LEVOTHYROXINE SODIUM 100 MCG TAB PO SCH (05:32)
[2016-05-23] MEDS: LEVOTHYROXINE SODIUM 75 MCG TAB PO SCH (05:32)
[2016-05-23] MEDS: INSULIN ASPART SUPPLEMENTAL SCALE SQ SCH ×4 (05:32→20:57)
[2016-05-23] MEDS: CLINDAMYCIN 150 MG CAP PO SCH ×3 (05:32→16:46)
[2016-05-23 08:00] VITALS: BP 125/62; PULSE 81; RESP 20; TEMP 99; O2SAT 93
[2016-05-23] MEDS: HEPARIN SODIUM - SQ 10,000 UNITS/ML VIAL SQ SCH ×2 (08:55→20:57)
[2016-05-23] MEDS: CIPROFLOXACIN 500 MG TAB PO SCH ×2 (08:55→20:56)
[2016-05-23] MEDS: CARVEDILOL 12.5 MG TAB PO SCH ×2 (08:55→20:56)
[2016-05-23] MEDS: buPROPion HCL 150 MG SUSTAINED RELEASE TAB PO SCH ×2 (08:55→20:56)
[2016-05-23] MEDS: GABAPENTIN 400 MG CAP PO SCH ×2 (08:55→20:56)
[2016-05-23] MEDS: LACTOBACILLUS ACIDOPHILUS TAB PO SCH ×3 (08:55→16:46)
[2016-05-23] MEDS: LIOTHYRONINE SODIUM 5 MCG TAB PO SCH (08:55)
[2016-05-23] MEDS: INSULIN DETEMIR 100 UNITS/ML VIAL SQ SCH ×2 (08:56→20:57)
[2016-05-23] MEDS: SILVER SULFADIAZINE 1% CR 400 GM JAR TOPICAL SCH (08:56)
[2016-05-23] MEDS: DOCUSATE SODIUM 100 MG CAP PO SCH ×3 (08:56→21:00)
[2016-05-23] MEDS: HYDROmorphone HCL 4 MG TAB PO PRN ×3 (08:56→19:03)
[2016-05-23] MEDS: DULoxetine HCl DR 30 MG CAP PO SCH ×2 (08:56→20:56)
[2016-05-23] MEDS: SODIUM CHLORIDE 0.9% FLUSH 5 ML FLUSH FLUSH SCH ×2 (08:59→20:58)
--- NOTE | 2016-05-23 10:22 | HHI.HCPN ---
Reason for visit a. To assist with evaluation and management of symptoms including:Pain b. To assist medical decision maker(s) with: better understanding of current medical conditions; weighing benefits/burdens of medical treatment options; making medical treatment decisions. Subjective/Interval History Pt endorses pain was more severe tonight. Pt has had multiple doses of IV dilaudid the past 24 hours, and mutliple PO doses of dilaudid. Pt is alert today, endorse now pain is better controlled, but states that when she elevate legs, its more painful, although that is what Dr. Mejias wanted pt to do. Continue to endorse pain of the lower ext. Pt currently rate pain 3/10 but had taken a lot of prn. Pt white count more elevated. Afebrile. Pt amenable to increase fentanyl patch , and begin to wean of IV dilaudid. Increase po dilaudid. 60-year-old with a past medical history of hypothyroidism, hypertension, EF of 30-35%, PAD, chronic bilateral lower extremity wounds presented to the ER on for severe bilateral lower extremity pain and worsening wounds. Per patient they all started with bug bites. Patient was recently hospitalized and discharged April 25 for similar circumstances. In the ER: * WBC is 12.8, hemoglobin is 11.0, hematocrit 32.8, platelet is 390 * Sodium is 129, potassium is 4.2, chloride 99, bicarbonate 16.7, BUN 70%, creatinine is 4.50 * AST is 14, ALT 16, alkaline phosphatase is 122, albumin 3.2 * PTT 37.8 * UA shows large amount of leukocyte esterase, negative nitrite, culture was indicated * Chest x-ray shows no acute disease * Patient was given vancomycin and Zosyn in the ER. Patient was admitted to the hospital for bilateral lower extremity erythema, chronic ulcers distal to the knees. Care was transferred to hospitalist service. 05/14/2016= patient was given IV hydration cautiously. Creatinine has gradually improved to 3.75. Nephrology was consulted due to acute renal failure. Ultram renal cell was ordered. Infectious disease was also consulted was been managing antibiotics.Vascular surgery was consulted. Venous duplex was ordered to rule out DVT. 05/14-== in the meantime patient has been complaining of pain. She stated that the Percocet has not been working. Creatinine has declined to 2.08 on . Vascular surgery evaluated. Not able to do contrast study secondary to acute kidney injury on admission. Status post debridement by Dr. Colon on 05/15. -== patient continued to have pain and palliative care was consulted to help with pain management. Prior to admission she has been taking handfuls of NSAIDs was have likely cause some renal insufficiency. Patient continued to be on antibiotics. 05/20/2016- Pt states pain not well controlled, working with physical therapy. Current pain regimen includes Oramorph 30 mg PO q12 hours in which pt refused. Pt currently also on Dilaudid 2-4 mg po q 4 hours prn pain. Dilaudid 1 iv q 4 hour prn dressing change. Dilaudid 2 mg IV q 4 hour prn breakthrough pain. Pt on Neurontin 300 mg PO TID. Pt endorses her pain is better today than the past few days. She endorses burning sensation the way down to her feet, and it hurts to even walk. Rate pain 7/10, but at other times to other physician endorses 10/10. Discussion at bedside with patient and pt's family at bedside. Her goals is to get these wound better and to get pain under control, not ready for just comfort only. Long discussion about her kidneys, her pvd, and the fine balance between pain control and side effects. Pt and family understand there is no "magic medicine. " to get pain well controll without side effects. She states if pain could be manage to level 5 or so she would be better. Explained the role of long acting pain meds. She is amenable to start Fentanyl patch, and titrate in the next few days base on need. Amenable to increase gabapentin tomorrow if pain persists. Family/friend interactions son was at bedside. Advance Directives Living Will: Never completed Health Care Surrogate: Never completed Durable Power of Travel Registered Nurse Icu: Never completed Objective Vital Signs Date Time Temp Pulse Resp B/P Pulse Ox O2 Delivery O2 Flow Rate FiO2 05/23/16 08:00 99.0 81 20 125/62 93 05/23/16 04:08 98.4 86 20 141/72 96 05/23/16 01:00 16 05/23/16 00:29 98.0 91 20 156/69 96 05/22/16 20:48 98.6 82 18 141/65 96 05/22/16 16:00 97.4 81 20 119/52 96 05/22/16 12:00 97.6 71 20 164/74 94 Intake & Output 05/23/16 05/23/16 07:00 19:00 Intake Total 450 ml Output Total 640 ml Balance -190 ml Intake Oral 450 ml Output Urine Total 640 ml # Bowel Movements 2 Physical Exam CONSTITUTIONAL/GENERAL: This is an adequately nourished patient, sitting at bedside. SKIN: No jaundice, rashes, or lesions. Ecchymoses on upper extremities. Wounds in lower ext. Skin temperature appropriate. Not diaphoretic. HEAD: Atraumatic. Normocephalic. EYES: Pupils equal and round and reactive. Extraocular motions intact. No scleral icterus. No injection or drainage. Fundi not examined. ENT: Hearing grossly normal. Nose without bleeding or purulent drainage. Throat without visible erythema, exudates, masses, or lesions. NECK: Trachea midline. Supple, nontender. No palpable thyroid enlargement or nodularity. CARDIOVASCULAR: Regular rate and rhythm without murmurs, gallops, or rubs. No JVD. Peripheral pulses symmetric. RESPIRATORY/CHEST: Symmetric, unlabored respirations. Clear to auscultation. Breath sounds equal bilaterally. No wheezes, rales, or rhonchi. GASTROINTESTINAL: Abdomen soft, non-tender, nondistended. No hepato-splenomegaly , or palpable masses. No guarding. Bowel sounds present. GENITOURINARY: Without palpable bladder distension. Mcintyre catheter in place. MUSCULOSKELETAL: Extremities dressing in place bilaterally, c/d/i. LYMPHATICS: No palpable cervical or supraclavicular adenopathy. NEUROLOGICAL: Awake and alert. Motor and sensory grossly within normal limits. Follows commands. Cognitively sharp. Moves all extremities. PSYCHIATRIC: No obvious anxiety/depression. no apparent hallucinations or other psychotic thought process. Diagnostic Tests Laboratory Laboratory Tests Test 05/21/16 05/22/16 05/23/16 07:00 08:40 04:39 White Blood Count 14.0 TH/MM3 13.8 TH/MM3 14.1 TH/MM3 (4.0-11.0) (4.0-11.0) (4.0-11.0) Red Blood Count 3.86 MIL/MM3 3.91 MIL/MM3 3.87 MIL/MM3 (4.00-5.30) (4.00-5.30) (4.00-5.30) Hemoglobin 10.4 GM/DL 10.2 GM/DL 10.3 GM/DL (11.6-15.3) (11.6-15.3) (11.6-15.3) Hematocrit 31.7 % 31.8 % 31.5 % (35.0-46.0) (35.0-46.0) (35.0-46.0) Mean Corpuscular Volume 82.2 FL 81.4 FL 81.3 FL (80.0-100.0) (80.0-100.0) (80.0-100.0) Mean Corpuscular Hemoglobin 26.9 PG 26.1 PG 26.5 PG (27.0-34.0) (27.0-34.0) (27.0-34.0) Mean Corpuscular Hemoglobin 32.7 % 32.1 % 32.6 % Concent (32.0-36.0) (32.0-36.0) (32.0-36.0) Red Cell Distribution Width 14.0 % 14.1 % 13.7 % (11.6-17.2) (11.6-17.2) (11.6-17.2) Platelet Count 293 TH/MM3 289 TH/MM3 288 TH/MM3 (150-450) (150-450) (150-450) Mean Platelet Volume 7.0 FL 7.1 FL 6.9 FL (7.0-11.0) (7.0-11.0) (7.0-11.0) Sodium Level 133 MEQ/L 129 MEQ/L 133 MEQ/L (136-145) (136-145) (136-145) Potassium Level 4.5 MEQ/L 4.6 MEQ/L 5.2 MEQ/L (3.5-5.1) (3.5-5.1) (3.5-5.1) Chloride Level 102 MEQ/L 97 MEQ/L 101 MEQ/L (98-107) (98-107) (98-107) Carbon Dioxide Level 22.1 MEQ/L 23.6 MEQ/L 22.8 MEQ/L (21.0-32.0) (21.0-32.0) (21.0-32.0) Anion Gap 9 MEQ/L (5-15) 8 MEQ/L (5-15) 9 MEQ/L (5-15) Blood Urea Nitrogen 46 MG/DL (7-18) 49 MG/DL (7-18) 51 MG/DL (7-18) Creatinine 1.34 MG/DL 1.23 MG/DL 1.33 MG/DL (0.50-1.00) (0.50-1.00) (0.50-1.00) Estimat Glomerular Filtration 40 ML/MIN (>89) 44 ML/MIN (>89) 41 ML/MIN (>89) Rate Random Glucose 203 MG/DL 178 MG/DL 174 MG/DL (74-106) (74-106) (74-106) Calcium Level 8.9 MG/DL 8.8 MG/DL 9.5 MG/DL (8.5-10.1) (8.5-10.1) (8.5-10.1) Magnesium Level 2.1 MG/DL 2.1 MG/DL 2.2 MG/DL (1.5-2.5) (1.5-2.5) (1.5-2.5) Result Diagram: 05/23/16 0439 05/23/16 0439 Imaging Last Impressions Renal Ultrasound 05/14/16 6338 Signed Impressions: Service Date/Time: Saturday, May 14, 2016 15:20 - CONCLUSION: 1. Increased echogenicity of the kidneys suggesting underlying medical renal disease. No findings to indicate renal obstruction. Jose Rogers MD Lower Extremity Ultrasound 05/14/16 0948 Signed Impressions: Service Date/Time: Saturday, May 14, 2016 14:30 - CONCLUSION: 1. No DVT identified. 2. No abscess seen in the subcutaneous soft tissues Jose Rogers MD Foot X-Ray 05/14/16 0000 Signed Impressions: Service Date/Time: Saturday, May 14, 2016 19:35 - CONCLUSION: 1. Extensive soft tissue swelling with no evidence to suggest osteomyelitis. 2. There are no radiopaque foreign bodies. Janes Danielson MD Chest X-Ray 05/13/16 1632 Signed Impressions: Service Date/Time: Friday, May 13, 2016 17:23 - CONCLUSION: No acute disease. Shamar Banuelos MD Assessment and Plan Disease Oriented Problem List: (1) Cellulitis and abscess of lower extremity Comment: Bilateraly non healing venous status ulcers. Failed outpatient treatment. Not able to do contrast study due to acute kindy injury. S/P debridement by podiatry. Severe pain (2) CHF (congestive heart failure) Comment: cardiomyopathy EF 30% (3) DM (diabetes mellitus), type 2, uncontrolled w/neurologic complication (4) PVD (peripheral vascular disease) (5) Allergic reaction to contrast dye Symptom Scale: (1) Pain 0-10 Scale: 7 Pertinent Non-Medical Issues Psychosocial: Spiritual: Legal: Ethical issues impacting care: Important Contacts Alfredo Lemos [phone] Prognosis 60 with cardiomyopathy and non healing ulcers 2nd to PVD. Prognosis is guarded to poor. At risk for sudden setback and decline. Likely will continue trend with multiple hospitalization. Code Status: Full Code Plan == Pain. from pvd, wounds, and neuropathy, mostly in the lower ext. Mutliple prn po and dilaudid given eq to roughly 200 mg PO morphine eq. Long discussion with patient, about titration and less reliance on IV dilaudid. Amenable to increase fentanyl patch. Begin weaning of IV dilaudid. decrease IV dilaudid. Increase PO dilaudid. . == anxiety- very anxious and anticipation of pain is a big part of her discomfort. Ativan 1 mg iv q 4 hour prn anxiety. == goals: aggressive. pt wants wound to get better and to continue to get treatment. They want to follow up with Dr. Garcias. Not ready to transition to comfort measures. want pain control to mostly 5-6/10 if possible == Proxy - would be the spouse == Palliative care will continue to follow. Time Spent Total Floor Time (mins): 35 Face to Face Time (mins): 20 Attestation To help prompt me to consider important information that might be impacting today's encounter and assessment, information from prior notes written by myself or my colleagues may have been "brought forward" into today's note. My signature on this note, however, is an attestation that I personally performed the exam, history, and/or decision-making noted today, and, unless otherwise indicated, the interactions with patient, family, and staff as well as the review of records all occurred today. I also attest that the listed assessment and stated plan reflect my best clinical judgment today based on the combination of historical information, prior notes, and today's exam/ interactions. When time spent is documented, it refers only to time spent today by the signer, or if indicated, combined time spent today by collaborating physician/nurse practitioner. Mariusz Reed MD May 23, 2016 10:22
[2016-05-23] MEDS: LORazepam 2 MG/ML VIAL PO PRN ×2 (11:34→22:49)
[2016-05-23 12:00] VITALS: BP 121/60; PULSE 75; RESP 20; TEMP 97.3; O2SAT 95
[2016-05-23] MEDS ORDERED: HYDROmorphone HCL 4 MG TAB PO PRN (12:00)
--- NOTE | 2016-05-23 14:02 | PD.VS.PN ---
Subjective Subjective/Hospital Course Hx of nonhealing wounds bilateral lower extremities. Patient does not want dressings removed at this time and complains of low back pain. Legs hanging down with patient in recumbent position. Objective Vitals/I&O Date Time Temp Pulse Resp B/P Pulse Ox O2 Delivery O2 Flow Rate FiO2 05/23/16 08:00 99.0 81 20 125/62 93 05/23/16 04:08 98.4 86 20 141/72 96 05/23/16 01:00 16 05/23/16 00:29 98.0 91 20 156/69 96 05/22/16 20:48 98.6 82 18 141/65 96 05/22/16 16:00 97.4 81 20 119/52 96 Physical Exam dressings extending from the foot thru the calves. Laboratory Laboratory Tests Test 05/23/16 04:39 White Blood Count 14.1 Red Blood Count 3.87 Hemoglobin 10.3 Hematocrit 31.5 Mean Corpuscular Volume 81.3 Mean Corpuscular Hemoglobin 26.5 Mean Corpuscular Hemoglobin 32.6 Concent Red Cell Distribution Width 13.7 Platelet Count 288 Mean Platelet Volume 6.9 Sodium Level 133 Potassium Level 5.2 Chloride Level 101 Carbon Dioxide Level 22.8 Anion Gap 9 Blood Urea Nitrogen 51 Creatinine 1.33 Estimat Glomerular Filtration 41 Rate Random Glucose 174 Calcium Level 9.5 Magnesium Level 2.2 B-Type Natriuretic Peptide 131 Date/Time Procedure Status Source Growth 05/19/16 02:30 Urine Culture - Final Complete Urine Clean Catch Dian Albicans Assessment and Plan Plan 60 year old morbidly obese female hx of bilateral leg wounds. Difficult to assess based on inability to examine. Would recommend controlling leg swelling by leg elevation and possible diuresis. Patient non-compliant with leg elevation. Difficult to assess arterial status as patient has hx of flash pulmonary edema with previous exposure to contrast and was instructed never to have contrast administered again. In addition, patient with renal insufficiency. Patient could not tolerate non-invasive arterial studies as she would not be able to tolerate inflation of BP cuffs. Continue with hospice for pain management. No vascular intervention to offer at this time. Adan White DO May 23, 2016 14:02
[2016-05-23] MEDS: HYDROmorphone HCL PF 1 MG/ML VIAL IV PUSH PRN ×2 (14:47→22:20)
[2016-05-23 16:00] VITALS: BP 137/90; PULSE 89; RESP 20; TEMP 97.7; O2SAT 95
[2016-05-23] MEDS: fentaNYL 50 MCG/HR PATCH TD SCH (16:47)
[2016-05-23 20:00] VITALS: BP 133/60; PULSE 89; RESP 18; TEMP 98.1; O2SAT 92
--- NOTE | 2016-05-23 22:45 | HHI.PR ---
Subjective Remarks patient seen today around 1 PM. Sleeping, wakes up for exam. She reports she is unable to keep the leg elevated do to pain. She denies any chest pain or shortness of breath. Denies any nausea or vomiting. Objective Vital Signs Date Time Temp Pulse Resp B/P Pulse Ox O2 Delivery O2 Flow Rate FiO2 05/23/16 20:00 98.1 89 18 133/60 92 05/23/16 16:00 97.7 89 20 137/90 95 05/23/16 12:00 97.3 75 20 121/60 95 05/23/16 08:00 99.0 81 20 125/62 93 05/23/16 04:08 98.4 86 20 141/72 96 05/23/16 01:00 16 05/23/16 00:29 98.0 91 20 156/69 96 I/O 05/22/16 05/22/16 05/22/16 05/23/16 05/23/16 05/23/16 07:00 15:00 23:00 07:00 15:00 23:00 Intake Total 240 ml 960 ml 450 ml 480 ml 240 ml Output Total 700 ml 640 ml Balance -460 ml 960 ml -190 ml 480 ml 240 ml Intake Oral 240 ml 960 ml 450 ml 480 ml 240 ml Output Urine Total 700 ml 640 ml # Voids 2 2 0 # Bowel Movements 0 2 0 Result Diagram: 05/23/1643805/23/16438 Objective Remarks GENERAL: patient lying in bed with legs standing outside of bed. Sleeping, wakes up for exam.Appears in pain. Alert and oriented 3. SKIN: Warm and dry. HEAD: Normocephalic. EYES: No scleral icterus. No injection or drainage. NECK: Supple, trachea midline. No JVD or lymphadenopathy. CARDIOVASCULAR: Regular rate and rhythm without murmurs, gallops, or rubs. RESPIRATORY: Breath sounds equal bilaterally. No accessory muscle use. GASTROINTESTINAL: Abdomen soft, non-tender, nondistended. MUSCULOSKELETAL: No cyanosis. bilateral lower extremity venous stasis wounds are dressed. +2 peripheral edema. Capillary refill adequate. BACK: Nontender without obvious deformity. No CVA tenderness. A/P Assessment and Plan Bilateral nonhealing venous stasis ulcers/ Bilateral lower extremity cellulitis Failure of outpatient treatment. Vascular surgery evaluated. Not able to do contrast study secondary to acute kidney injury on admission. Status post debridement by Dr. Colon on 05/15. Pain improved 05/21. Palliative care consult appreciated. - Continue pain control with a bowel regimen. Adjusted by palliative care 05/22. - Continue antibiotics as per infectious disease. - wound care per podiatry. - 05/23. Discussed with podiatry. Main problem is bilateral lower extremity edema. BNP is not markedly elevated, however patient does have ejection fraction measured 35% earlier this year. Will order new echocardiogram. It would be helpful to order diuretics, however renal function is very poor at the moment. Continue to monitor. Followup echocardiogram. Acute kidney injury. Creatinine 4.5 on admission. Most recent baseline 1.15 on April 24. Likely secondary to NSAIDs in conjunction with losartan. Patient says she was taking "handfuls" of NSAIDs. Appreciate nephrology consult. Creatinine has stabilized. - Continue to hold losartan, Lasix. Avoid nephrotoxins. - follow up with nephrology. - Kidney function continues stable. follow BMP. Cardiomyopathy Ejection fraction 30%. Has lower extremity edema. - Continue Coreg - Hold Lasix due to kidney injury. - 05/23. Previous ejection fraction of 30-35% was following acute episode of flash pulmonary edema. Repeat echocardiogram ordered and pending. Consider cardiology consultation for assistance with management. Diabetes Is on long-acting insulin at home. - Patient is on glargine 20 units twice daily at home. - Continue Levemir 20 units twice daily. - Glucose level acceptable. Continue monitor. Hyponatremia 128 on admission. Stable. - follow BMP. Right shoulder pain Exam unremarkable. Likely muscle strain. - continue pain control. - physical therapy. Prophylaxis. Subcutaneous heparin. Discharge Planning can discharge to SNF when pain is controlled. Awaiting echocardiogram, to assess appropriateness of diuresis. - [facility] Jeffrey Chappell MD May 23, 2016 22:45
[2016-05-24] VITALS: BP 151/65; PULSE 95; RESP 17; TEMP 98.5; O2SAT 92
[2016-05-24 04:00] VITALS: BP 137/64; PULSE 90; RESP 18; TEMP 97.8; O2SAT 93
[2016-05-24] MEDS: LEVOTHYROXINE SODIUM 75 MCG TAB PO SCH (05:48)
[2016-05-24] MEDS: LEVOTHYROXINE SODIUM 100 MCG TAB PO SCH (05:48)
[2016-05-24] MEDS: CLINDAMYCIN 150 MG CAP PO SCH ×5 (05:48→23:27)
[2016-05-24] MEDS: LORazepam 2 MG/ML VIAL PO PRN (05:49)
[2016-05-24] MEDS: INSULIN ASPART SUPPLEMENTAL SCALE SQ SCH ×4 (06:06→21:00)
[2016-05-24 06:39] LABS: AUTOMATED NEUTROPHIL # 9.9 TH/MM3 (1.8-7.7); BASOPHIL # 0.1 TH/MM3 (0-0.2); BASOPHIL % 0.4 % (0.0-2.0); EOSINOPHIL # 0.2 TH/MM3 (0-0.4); EOSINOPHIL % 1.3 % (0.0-4.0); HEMATOCRIT 29.3 % (35.0-46.0); LYMPH % 9.9 % (9.0-44.0); LYMPHOCYTE # 1.3 TH/MM3 (1.0-4.8); MEAN CELL VOLUME 80.9 FL (80.0-100.0); MEAN CORPUSCULAR HEMOGLOBIN 26.8 PG (27.0-34.0); MEAN CORPUSCULAR HGB CONC 33.2 % (32.0-36.0); MONO % 9.2 % (0.0-8.0); NEUT % 79.2 % (16.0-70.0); PLATELET COUNT 256 TH/MM3 (150-450); RED BLOOD COUNT 3.62 MIL/MM3 (4.00-5.30); RED CELL DISTRIBUTION WIDTH 13.7 % (11.6-17.2); WHITE BLOOD COUNT 12.6 TH/MM3 (4.0-11.0)
[2016-05-24 07:07] LABS: BICARBONATE 22.2 MEQ/L (21.0-32.0); POTASSIUM 4.4 MEQ/L (3.5-5.1)
[2016-05-24 07:10] LABS: HEMO FLAGS AUTO DIFF
[2016-05-24] MEDS: SODIUM CHLORIDE 0.9% FLUSH 5 ML FLUSH FLUSH SCH ×2 (09:00→21:00)
[2016-05-24] MEDS: SILVER SULFADIAZINE 1% CR 400 GM JAR TOPICAL SCH (09:00)
[2016-05-24] MEDS: INSULIN DETEMIR 100 UNITS/ML VIAL SQ SCH ×2 (09:59→21:43)
[2016-05-24] MEDS: GABAPENTIN 400 MG CAP PO SCH ×2 (09:59→21:43)
[2016-05-24] MEDS: CIPROFLOXACIN 500 MG TAB PO SCH ×2 (09:59→21:43)
[2016-05-24] MEDS: HEPARIN SODIUM - SQ 10,000 UNITS/ML VIAL SQ SCH ×2 (09:59→21:44)
[2016-05-24] MEDS: LACTOBACILLUS ACIDOPHILUS TAB PO SCH ×3 (09:59→17:17)
[2016-05-24] MEDS: buPROPion HCL 150 MG SUSTAINED RELEASE TAB PO SCH ×2 (10:00→21:43)
[2016-05-24] MEDS: CARVEDILOL 12.5 MG TAB PO SCH ×2 (10:00→21:45)
[2016-05-24] MEDS: DULoxetine HCl DR 30 MG CAP PO SCH ×2 (10:00→21:42)
[2016-05-24] MEDS: LIOTHYRONINE SODIUM 5 MCG TAB PO SCH (10:00)
[2016-05-24] MEDS: DOCUSATE SODIUM 100 MG CAP PO SCH ×2 (10:00→21:00)
[2016-05-24 10:03] VITALS: BP 118/65; PULSE 89; RESP 20; TEMP 98.8; O2SAT 95
[2016-05-24 10:06] LABS: BANDS 8 % (0-6); BASOPHILS 1 % (0-2); MYELOCYTES 2 % (0-0); POLYS (SEG NEUTROPHILS) 69 % (16-70); WBC DIFF SAMPLE 100
[2016-05-24 10:07] LABS: PLATELET ESTIMATE SMEAR NORMAL (NORMAL); PLATELET MORPHOLOGY NORMAL (NORMAL); SCAN/DIFF FINAL DIFF MANUAL
[2016-05-24 12:32] VITALS: BP 107/61; PULSE 80; RESP 16; TEMP 98.5; O2SAT 96
[2016-05-24] MEDS: HYDROmorphone HCL 4 MG TAB PO PRN (13:18)
--- NOTE | 2016-05-24 15:29 | EC ---
Study Study Date:05/24/2016 STUDY CONCLUSIONS SUMMARY - Left ventricle: The cavity size was at the upper limits of normal. Wall thickness was normal. Systolic function was moderately to severely reduced by visual assessment. The estimated ejection fraction was in the range of 35% to 40%. Diffuse hypokinesis. - Mitral valve: Mild regurgitation. - Tricuspid valve: Mild regurgitation. If LV function is below 40, please consider prescribing an ACEI or ARB or document rationale for non-use. PROCEDURE DATA STUDY STATUS: Elective. Procedure: Transthoracic echocardiography. Image quality was poor. Scanning was performed from the parasternal, apical, and subcostal acoustic windows. Study completion: The patient tolerated the procedure well. Transthoracic echocardiography. M-mode, complete 2D, complete spectral Doppler, and color Doppler. Patient status: Inpatient. CARDIAC ANATOMY LEFT VENTRICLE: Not well visualized. The cavity size was at the upper limits of normal. Wall thickness was normal. Systolic function was moderately to severely reduced by visual assessment. The estimated ejection fraction was in the range of 35% to 40%. Diffuse hypokinesis. AORTIC VALVE: Trileaflet; normal thickness leaflets. Doppler: Transvalvular velocity was within the normal range. There was no stenosis. No regurgitation. AORTA: Aortic root: The aortic root was normal in size. MITRAL VALVE: Structurally normal valve. Doppler: Transvalvular velocity was within the normal range. There was no evidence for stenosis. Mild regurgitation. LEFT ATRIUM: The atrium was normal in size. RIGHT VENTRICLE: The cavity size was normal. Wall thickness was normal. PULMONIC VALVE: Doppler: Transvalvular velocity was within the normal range. There was no evidence for stenosis. No regurgitation. TRICUSPID VALVE: Structurally normal valve. Doppler: Transvalvular velocity was within the normal range. Mild regurgitation. PULMONARY ARTERY: The main pulmonary artery was normal-sized. Systolic pressure was within the normal range. RIGHT ATRIUM: The atrium was normal in size. PERICARDIUM: There was no pericardial effusion. SYSTEMIC VEINS: Inferior vena cava: The vessel was normal in size. BASIC MEASUREMENTS ADULT NORMAL Left ventricle LV internal dimension, ED, chordal level, *31.8 mm 43-52 PLAX LV internal dimension, ES, chordal level, 28.1 mm 23-38 PLAX Fractional shortening, chordal level, PLAX *12 % >29 LV posterior wall thickness, ED 11.8 mm IVS/LVPW ratio, ED 1.23 <1.3 Ventricular septum Septal thickness, ED 14.5 mm Aortic valve Leaflet separation 17 mm 15-26 Right ventricle RV internal dimension, ED, PLAX 36 mm 19-38 BASIC MEASUREMENTS ADULT NORMAL Aortic valve Leaflet separation 17 mm 15-26 Aorta Root diameter, ED 33 mm 20-37 Left atrium Anterior-posterior dimension, ES 38 mm 19-40 LA/aortic root ratio 1.15 LEGEND: Mean values are shown as u=mean value. Asterisk (*) bolanos values outside specified normal range. Prepared and signed by Jarret Oquendo [id number]
[2016-05-24] MEDS ORDERED: REMOVE OLD PATCH TD SCH (16:00)
[2016-05-24 17:13] VITALS: BP 146/66; PULSE 82; RESP 18; TEMP 99.7; O2SAT 96
[2016-05-24] MEDS: HYDROmorphone HCL PF 1 MG/ML VIAL IV PUSH PRN ×2 (17:18→23:28)
[2016-05-24] MEDS ORDERED: HYDROmorphone HCL 2 MG TAB PO PRN (17:30)
--- NOTE | 2016-05-24 18:16 | HHI.PR ---
Subjective Remarks patient seen today around noon, and again around 4 PM. Son in room. Long discussion with son regarding difficulty getting patient to be compliant with treatment. He is concerned that she sent home knowing that she should seek medical attention, but did not. He is concerned she has lack of motivation, and does not seem to listen to be on regarding health issues. He states that she sleeps in a recliner, keeps her feet down most the day at-home. Patient reports that pain continues. She is much more somnolent today, but does wake up for exam. Objective Vital Signs Date Time Temp Pulse Resp B/P Pulse Ox O2 Delivery O2 Flow Rate FiO2 05/24/16 17:13 99.7 82 18 146/66 96 05/24/16 12:32 98.5 80 16 107/61 96 05/24/16 10:03 98.8 89 20 118/65 95 05/24/16 04:00 97.8 90 18 137/64 93 05/24/16 00:00 98.5 95 17 151/65 92 05/23/16 20:00 98.1 89 18 133/60 92 I/O 05/23/16 05/23/16 05/23/16 05/24/16 05/24/16 05/24/16 06:59 14:59 22:59 06:59 14:59 22:59 Intake Total 480 ml 240 ml 100 ml 0 ml Output Total 450 ml Balance 480 ml 240 ml 100 ml -450 ml Intake Oral 480 ml 240 ml 100 ml IV Total 0 ml Output Urine Total 450 ml # Voids 2 0 1 3 # Bowel Movements 0 1 Result Diagram: 05/24/16 0502 05/24/16 0502 Imaging Last Impressions Renal Ultrasound 05/14/16 1457 Signed Impressions: Service Date/Time: Saturday, May 14, 2016 15:20 - CONCLUSION: 1. Increased echogenicity of the kidneys suggesting underlying medical renal disease. No findings to indicate renal obstruction. Jose Rogers MD Lower Extremity Ultrasound 05/14/16 0948 Signed Impressions: Service Date/Time: Saturday, May 14, 2016 14:30 - CONCLUSION: 1. No DVT identified. 2. No abscess seen in the subcutaneous soft tissues Jose Rogers MD Foot X-Ray 05/14/16 0000 Signed Impressions: Service Date/Time: Saturday, May 14, 2016 19:35 - CONCLUSION: 1. Extensive soft tissue swelling with no evidence to suggest osteomyelitis. 2. There are no radiopaque foreign bodies. Janes Danielson MD Chest X-Ray 05/13/16 1632 Signed Impressions: Service Date/Time: Friday, May 13, 2016 17:23 - CONCLUSION: No acute disease. Shamar Banuelos MD Objective Remarks GENERAL: patient lying in bed with legs on bed.Sleeping, wakes up for exam.Appears in pain. Alert and oriented 3. SKIN: Warm and dry. HEAD: Normocephalic. EYES: No scleral icterus. No injection or drainage. NECK: Supple, trachea midline. No JVD or lymphadenopathy. CARDIOVASCULAR: Regular rate and rhythm without murmurs, gallops, or rubs. RESPIRATORY: Breath sounds equal bilaterally. No accessory muscle use. GASTROINTESTINAL: Abdomen soft, non-tender, nondistended. MUSCULOSKELETAL: No cyanosis. bilateral lower extremity venous stasis wounds are dressed. +2 peripheral edema, however improved from yesterday. Right improved greater than left. Patient has been oriented such that she can dangle her left leg off. Capillary refill adequate. BACK: Nontender without obvious deformity. No CVA tenderness. A/P Assessment and Plan 05/24/16 Patient somnolent with increasing pain medications. Decreased Dilaudid by mouth dosing. Discontinue Ativan - Long discussion with son in room. Patient needs to elevate her legs she has been noncompliant with this in the past, however with her son present there is an improvement in bilateral lower extremity edema. -Echocardiogram with continued ejection fraction 30%. Consult cardiology. - Kidney function improved. Start Lasix //Bilateral nonhealing venous stasis ulcers/ Bilateral lower extremity cellulitis //Failure of outpatient treatment. Vascular surgery evaluated. Not able to do contrast study secondary to //acute kidney injury on admission. Status post debridement by Dr. Colon on 05/15. Pain improved 05/21. -Palliative care consult appreciated. - Continue pain control with a bowel regimen. Adjusted by palliative care 05/22. - Continue antibiotics as per infectious disease. - wound care per podiatry. - 05/23. Discussed with podiatry. Main problem is bilateral lower extremity edema. BNP is not markedly elevated, however patient does have ejection fraction measured 35% earlier this year. Will order new echocardiogram. It would be helpful to order diuretics, however renal function is very poor at the moment. Continue to monitor. 05/24-Echocardiogram with continued ejection fraction 30%. Consult cardiology. Start Lasix. //Pain control - Continue fentanyl patch as per palliative care. - 05/24. Someone on increased dose of narcotics. Will decrease Dilaudid by mouth. Continue monitor closely. Appreciate palliative care assistance. //Acute kidney injury. Creatinine 4.5 on admission. Most recent baseline 1.15 on April 24. Likely secondary to NSAIDs in conjunction with losartan. Patient says she was taking "handfuls" of NSAIDs. Appreciate nephrology consult. Creatinine has stabilized. - Continue to hold losartan, Lasix. Avoid nephrotoxins. - follow up with nephrology. - Kidney function continues stable. follow BMP. //Cardiomyopathy Ejection fraction 30%. Has lower extremity edema. - Continue Coreg - Hold Lasix due to kidney injury. - 05/23. Previous ejection fraction of 30-35% was following acute episode of flash pulmonary edema. Repeat echocardiogram ordered and pending. Consider cardiology consultation for assistance with management. 05/24 - Kidney function improved. Start Lasix Diabetes Is on long-acting insulin at home. - Patient is on glargine 20 units twice daily at home. - Continue Levemir 20 units twice daily. - Glucose level acceptable. Continue monitor. Hyponatremia 128 on admission. Improved. Stable. - follow BMP. Right shoulder pain Exam unremarkable. Likely muscle strain. - continue pain control. - physical therapy. Prophylaxis. Subcutaneous heparin. Discharge Planning can discharge to SNF when pain is controlled. Awaiting echocardiogram, to assess appropriateness of diuresis. - [facility] Jeffrey Chappell MD May 24, 2016 18:16
[2016-05-24 20:00] VITALS: BP 139/69; PULSE 94; RESP 18; TEMP 99; O2SAT 92
[2016-05-25 04:00] VITALS: BP 142/65; PULSE 86; RESP 18; TEMP 98.4; O2SAT 92
[2016-05-25] MEDS: LEVOTHYROXINE SODIUM 100 MCG TAB PO SCH (05:37)
[2016-05-25] MEDS: INSULIN ASPART SUPPLEMENTAL SCALE SQ SCH ×4 (05:37→21:01)
[2016-05-25] MEDS: CLINDAMYCIN 150 MG CAP PO SCH ×4 (05:37→23:50)
[2016-05-25] MEDS: LEVOTHYROXINE SODIUM 75 MCG TAB PO SCH (05:37)
[2016-05-25 07:07] LABS: BICARBONATE 23.8 MEQ/L (21.0-32.0); POTASSIUM 4.3 MEQ/L (3.5-5.1)
[2016-05-25 07:13] LABS: AUTOMATED NEUTROPHIL # 10.8 TH/MM3 (1.8-7.7); BASOPHIL # 0.1 TH/MM3 (0-0.2); BASOPHIL % 0.5 % (0.0-2.0); EOSINOPHIL # 0.1 TH/MM3 (0-0.4); EOSINOPHIL % 0.9 % (0.0-4.0); HEMATOCRIT 27.3 % (35.0-46.0); HEMO FLAGS DIFF FINAL; LYMPH % 8.1 % (9.0-44.0); LYMPHOCYTE # 1.1 TH/MM3 (1.0-4.8); MEAN CELL VOLUME 81.4 FL (80.0-100.0); MEAN CORPUSCULAR HEMOGLOBIN 26.8 PG (27.0-34.0); MEAN CORPUSCULAR HGB CONC 32.9 % (32.0-36.0); MONO % 10.4 % (0.0-8.0); NEUT % 80.1 % (16.0-70.0); PLATELET COUNT 255 TH/MM3 (150-450); RED BLOOD COUNT 3.36 MIL/MM3 (4.00-5.30); RED CELL DISTRIBUTION WIDTH 13.7 % (11.6-17.2); WHITE BLOOD COUNT 13.5 TH/MM3 (4.0-11.0)
[2016-05-25 08:00] VITALS: BP 138/63; PULSE 84; RESP 20; TEMP 99.9; O2SAT 93
[2016-05-25] MEDS ORDERED: FUROSEMIDE 40 MG TAB PO ONE (08:00)
[2016-05-25] MEDS: LIOTHYRONINE SODIUM 5 MCG TAB PO SCH (09:00)
[2016-05-25] MEDS: DOCUSATE SODIUM 100 MG CAP PO SCH ×2 (09:00→20:55)
[2016-05-25] MEDS: SODIUM CHLORIDE 0.9% FLUSH 5 ML FLUSH FLUSH SCH ×2 (09:00→20:53)
[2016-05-25] MEDS: CIPROFLOXACIN 500 MG TAB PO SCH ×2 (09:00→20:53)
[2016-05-25] MEDS: GABAPENTIN 400 MG CAP PO SCH ×2 (09:00→20:55)
[2016-05-25] MEDS: CARVEDILOL 12.5 MG TAB PO SCH ×2 (09:00→20:55)
[2016-05-25] MEDS: DULoxetine HCl DR 30 MG CAP PO SCH ×2 (09:01→20:56)
[2016-05-25] MEDS: LACTOBACILLUS ACIDOPHILUS TAB PO SCH ×3 (09:01→17:38)
[2016-05-25] MEDS: HEPARIN SODIUM - SQ 10,000 UNITS/ML VIAL SQ SCH ×2 (09:01→20:54)
[2016-05-25] MEDS: HYDROmorphone HCL PF 1 MG/ML VIAL IV PUSH PRN ×3 (09:02→18:17)
[2016-05-25] MEDS: INSULIN DETEMIR 100 UNITS/ML VIAL SQ SCH ×2 (09:02→21:01)
[2016-05-25] MEDS: buPROPion HCL 150 MG SUSTAINED RELEASE TAB PO SCH ×2 (09:02→20:57)
[2016-05-25] MEDS: SILVER SULFADIAZINE 1% CR 400 GM JAR TOPICAL SCH (09:19)
[2016-05-25 12:00] VITALS: BP 131/53; PULSE 78; RESP 22; TEMP 99.2; O2SAT 95
[2016-05-25] MEDS: HYDROmorphone HCL 4 MG TAB PO PRN ×2 (15:42→20:51)
--- NOTE | 2016-05-25 15:50 | HHI.PR ---
Subjective Remarks Patient seen this morning around 11:30 AM. More awake and alert than yesterday. Edema in bilateral lower extremities is improved. Patient reports that pain is worse. She denies any chest pain or shortness of breath. I discussed with patient, and son at bedside. She spent most of yesterday asleep. Explained that it is impossible to control her neuropathic pain with narcotics, that it will cause obtundation before she experiences a relief in pain. Patient has been able to get up to bedside commode today, which she was not able to do yesterday. Objective Vital Signs Date Time Temp Pulse Resp B/P Pulse Ox O2 Delivery O2 Flow Rate FiO2 05/25/16 12:00 99.2 78 22 131/53 95 05/25/16 08:00 99.9 84 20 138/63 93 05/25/16 04:00 98.4 86 18 142/65 92 05/24/16 20:00 99.0 94 18 139/69 92 05/24/16 17:13 99.7 82 18 146/66 96 I/O 05/24/16 05/24/16 05/24/16 05/25/16 05/25/16 05/25/16 07:00 15:00 23:00 07:00 15:00 23:00 Intake Total 100 ml 0 ml 220 ml Output Total 450 ml Balance 100 ml -450 ml 220 ml Intake Oral 100 ml 220 ml IV Total 0 ml Output Urine Total 450 ml # Voids 1 4 # Bowel Movements 1 1 Result Diagram: 05/25/16 0451 05/25/16 0451 Objective Remarks GENERAL: Patient awake, however still somnolent. More alert and talkative than yesterday. Continues to be oriented. SKIN: Warm and dry. HEAD: Normocephalic. EYES: No scleral icterus. No injection or drainage. NECK: Supple, trachea midline. No JVD or lymphadenopathy. CARDIOVASCULAR: Regular rate and rhythm without murmurs, gallops, or rubs. RESPIRATORY: Breath sounds equal bilaterally. No accessory muscle use. GASTROINTESTINAL: Abdomen soft, non-tender, nondistended. MUSCULOSKELETAL: No cyanosis. bilateral lower extremity venous stasis wounds are dressed. +2 peripheral edema, however improved from yesterday. Right improved greater than left. Patient has been oriented such that she can dangle her left leg off. Capillary refill adequate. 12/31. Wounds examined during dressing change. Edema improved. Still with ulcerations and faint erythema circumferentially around left ankle, as well as less so over right. Ischemic left second and third toes. BACK: Nontender without obvious deformity. No CVA tenderness. A/P Assessment and Plan 05/25/16 -Improved edema. Elevation seems to be working. Received Lasix this morning. Improved alertness on decreased pain medication, however patient reports worsening pain. We cannot increase narcotic pain medication anymore right now. -Appreciate cardiology assistance. Lasix and ARB ordered. //Bilateral nonhealing venous stasis ulcers/ Bilateral lower extremity cellulitis //Failure of outpatient treatment. Vascular surgery evaluated. Not able to do contrast study secondary to //acute kidney injury on admission. Status post debridement by Dr. Colon on 05/15. Pain improved 05/21. -Palliative care consult appreciated. - Continue pain control with a bowel regimen. Adjusted by palliative care 05/22. - Continue antibiotics as per infectious disease. - wound care per podiatry. - 05/23. Discussed with podiatry. Main problem is bilateral lower extremity edema. BNP is not markedly elevated, however patient does have ejection fraction measured 35% earlier this year. Will order new echocardiogram. It would be helpful to order diuretics, however renal function is very poor at the moment. Continue to monitor. 05/24-Echocardiogram with continued ejection fraction 30%. Consult cardiology. Start Lasix. 05/25- cardiology consult appreciated. Start Lasix and ARB. //Pain control - Continue fentanyl patch as per palliative care. - 05/24. Someone on increased dose of narcotics. Will decrease Dilaudid by mouth. Continue monitor closely. Appreciate palliative care assistance. -mproved alertness on decreased pain medication, however patient reports worsening pain. We cannot increase narcotic pain medication anymore right now. //Acute kidney injury. Creatinine 4.5 on admission. Most recent baseline 1.15 on April 24. Likely secondary to NSAIDs in conjunction with losartan. Patient says she was taking "handfuls" of NSAIDs. Appreciate nephrology consult. Creatinine has stabilized. - Continue to hold losartan, Lasix. Avoid nephrotoxins. - follow up with nephrology. - Kidney function continues stable. follow BMP. //Cardiomyopathy Ejection fraction 30%. Has lower extremity edema. - Continue Coreg - Hold Lasix due to kidney injury. - 05/23. Previous ejection fraction of 30-35% was following acute episode of flash pulmonary edema. Repeat echocardiogram ordered and pending. Consider cardiology consultation for assistance with management. 05/24 - Kidney function improved. Start Lasix //Diabetes -Is on long-acting insulin at home. - Patient is on glargine 20 units twice daily at home. - Continue Levemir 20 units twice daily. - Glucose level acceptable. Continue monitor. //Hyponatremia. Resolved. 128 on admission. Improved. Stable. - follow BMP. //Right shoulder pain.. Appears to have improved. Exam unremarkable. Likely muscle strain. - continue pain control. - physical therapy. Prophylaxis. Subcutaneous heparin. Discharge Planning -Still with uncontrolled pain. -Working on edema control. can discharge to SNF when pain is controlled. Jeffrey Chappell MD May 25, 2016 15:49
[2016-05-25 16:00] VITALS: BP 125/60; PULSE 82; RESP 22; TEMP 98.6; O2SAT 94
--- NOTE | 2016-05-25 18:58 | MB ---
cc: NANCY JOHNSON MD, KIM A. M.D. HORENSTEIN,REINIER Martinez MD DATE OF CONSULTATION: 05/25/2016. CHIEF COMPLAINT: History of cardiomyopathy. HISTORY OF PRESENT ILLNESS: The patient is a 60-year-old hypertensive, diabetic, hypothyroid, obese female with a history of a known cardiomyopathy. She is followed by Dr. Castellanos in our office and has declined nuclear testing to assess the etiology of her cardiomyopathy and she declines any consideration of ICD therapy. She was admitted to this institution basically because of cellulitis and infectious issues involving the lower extremities. She has actually been in the hospital about two weeks. For reasons not entirely clear, cardiology was consulted because of her cardiomyopathy, but this is a known chronic entity. When I see the patient, she is completely asymptomatic from a cardiac perspective. She denies any shortness of breath, orthopnea or paroxysmal nocturnal dyspnea. She denies any chest discomfort, tightness or pressure. She denies palpitation, syncope or pre-syncope. She states she has been compliant with her home medication. She continues to decline any consideration of invasive or noninvasive cardiovascular evaluation including cardiac catheterization and ICD therapy. She tells me that she feels perfectly well and is free of cardiovascular complaints. Her primary admission reason is because of edema and cellulitis from insect bites on the lower extremities. She does have dry gangrene of several toes of the left foot that started five weeks ago after she dropped a can of vegetables on her foot and that is being followed by wound management. Her legs are wrapped and I did not unwrap them but she states they are improving and there is a history of venous insufficiency. She however denies fever, chills, sweats or night sweats. PHYSICAL EXAMINATION: GENERAL: On general inspection, she is an alert pleasant lady lying in bed in no distress. VITAL SIGNS: Blood pressure of 130/53, pulse of 78, respirations of 22, the patient is afebrile. HEAD, EYES, EARS, NOSE, THROAT/NECK: Unremarkable for the patient's age. LUNGS: Clear. CARDIOVASCULAR: Regular rate and rhythm without murmurs, rubs, clicks or gallops. No neck vein distention. S1 and S2 are unremarkable. ABDOMEN: Abdomen obese without masses or tenderness. Bowel sounds within normal limits. GENITALIA/RECTAL: Deferred. EXTREMITIES: 2+ edema on the left and 1+ on the right. Dry gangrene of the middle toes of the left foot. Healing insect wounds bilaterally. Varicosities bilaterally. Pulses are not readily assessed because the legs are wrapped. NEUROLOGIC: Grossly intact without focal findings. LABORATORY DATA: Chest x-ray is normal. The BNP is essentially normal a5 131. Basic metabolic panel is normal. APTT is 37.8. CBC is showing a mild anemia with a hematocrit 27.3%, platelet count is normal, white blood cell count is mildly elevated. Urinalysis is showing leukocyte esterase. Urine culture shows Dian. Infectious disease is following. Blood cultures are negative x3. CARDIOLOGY STUDIES: EKG is from 05/13/2016 and is stable over the time. It is consistent with an old anteroseptal infarct. The echocardiogram however shows diffuse hypokinesis with a 35% to 40% ejection fraction and no definite cavitary dilatation. There is mild mitral regurgitation and mild tricuspid regurgitation. ASSESSMENT AND PLAN: Essentially the patient presents with a known chronic cardiomyopathy of uncertain etiology. The diffuse hypokinesis which suggests a primary cardiomyopathy but she may have peripheral vascular disease, which would make her more at risk to have coronary disease, and she is of course diabetic. Regardless, she is completely stable and her ejection fraction has improved from her previous ejection fraction in the office. She has been very stable from a cardiac perspective without evidence of any decompensation and certainly I would just continue her home medical regimen. Her son was present for the interview and she continues to refuse any consideration of further cardiac evaluation or ICD therapy and she understands the risks, benefits and alternatives. For reasons unclear to me, her losartan has been held and I really think that it should be continued along with her chronic Lasix therapy. I will reinstitute her home medication. As she not accepting of ICD therapy and her ejection fraction appears to be significantly improved with remodelling therapy, I would not hold this on a long-term basis. Dr. Johnson will be available to follow the patient up on an as-needed basis and I will have her regular sales and service agent, Dr. Castellanos, review all of the therapy on his return Thursday. As she will be seen p.r.n. on the holiday in light of her stability and the fact that her therapy is outlined please call if you have any questions, problems or issues. MD MARIOLA Hopkins/HAMILTON /2:42 PM /6:39 PM
[2016-05-25 20:00] VITALS: BP 129/61; PULSE 84; RESP 20; TEMP 99.3; O2SAT 94
[2016-05-25] MEDS: LOSARTAN 50 MG TAB PO SCH (20:56)
[2016-05-26] VITALS: BP 123/60; PULSE 76; RESP 20; TEMP 98.5; O2SAT 94
[2016-05-26] MEDS: HYDROmorphone HCL 4 MG TAB PO PRN ×5 (02:03→20:35)
[2016-05-26 04:00] VITALS: BP 123/60; PULSE 79; RESP 20; TEMP 98.3; O2SAT 97
[2016-05-26] MEDS: LEVOTHYROXINE SODIUM 75 MCG TAB PO SCH (06:04)
[2016-05-26] MEDS: INSULIN ASPART SUPPLEMENTAL SCALE SQ SCH ×4 (06:04→20:38)
[2016-05-26] MEDS: CLINDAMYCIN 150 MG CAP PO SCH ×3 (06:04→17:53)
[2016-05-26] MEDS: LEVOTHYROXINE SODIUM 100 MCG TAB PO SCH (06:04)
[2016-05-26 08:00] VITALS: BP 111/53; PULSE 69; RESP 20; TEMP 97.8; O2SAT 96
[2016-05-26 09:11] LABS: AUTOMATED NEUTROPHIL # 12.6 TH/MM3 (1.8-7.7); BASOPHIL # 0.1 TH/MM3 (0-0.2); BASOPHIL % 0.3 % (0.0-2.0); EOSINOPHIL # 0.3 TH/MM3 (0-0.4); HEMATOCRIT 26.6 % (35.0-46.0); HEMO FLAGS DIFF FINAL; LYMPH % 9.7 % (9.0-44.0); LYMPHOCYTE # 1.5 TH/MM3 (1.0-4.8); MEAN CORPUSCULAR HEMOGLOBIN 26.2 PG (27.0-34.0); MEAN CORPUSCULAR HGB CONC 32.3 % (32.0-36.0); MONO % 8.5 % (0.0-8.0); NEUT % 79.5 % (16.0-70.0); PLATELET COUNT 278 TH/MM3 (150-450); RED BLOOD COUNT 3.28 MIL/MM3 (4.00-5.30); RED CELL DISTRIBUTION WIDTH 13.8 % (11.6-17.2); WHITE BLOOD COUNT 15.8 TH/MM3 (4.0-11.0)
[2016-05-26 09:46] LABS: BICARBONATE 25.3 MEQ/L (21.0-32.0); POTASSIUM 4.5 MEQ/L (3.5-5.1)
[2016-05-26] MEDS: GABAPENTIN 400 MG CAP PO SCH (09:50)
[2016-05-26] MEDS: LOSARTAN 50 MG TAB PO SCH (09:50)
[2016-05-26] MEDS: CIPROFLOXACIN 500 MG TAB PO SCH ×2 (09:50→20:37)
[2016-05-26] MEDS: DOCUSATE SODIUM 100 MG CAP PO SCH ×2 (09:50→20:37)
[2016-05-26] MEDS: LIOTHYRONINE SODIUM 5 MCG TAB PO SCH (09:50)
[2016-05-26] MEDS: CARVEDILOL 12.5 MG TAB PO SCH ×2 (09:51→20:36)
[2016-05-26] MEDS: FUROSEMIDE 20 MG TAB PO SCH (09:52)
[2016-05-26] MEDS: DULoxetine HCl DR 30 MG CAP PO SCH ×2 (09:52→20:38)
[2016-05-26] MEDS: buPROPion HCL 150 MG SUSTAINED RELEASE TAB PO SCH ×2 (09:52→20:36)
[2016-05-26] MEDS: INSULIN DETEMIR 100 UNITS/ML VIAL SQ SCH ×2 (09:55→20:38)
[2016-05-26] MEDS: SILVER SULFADIAZINE 1% CR 400 GM JAR TOPICAL SCH (09:56)
[2016-05-26] MEDS: SODIUM CHLORIDE 0.9% FLUSH 5 ML FLUSH FLUSH SCH ×2 (09:58→20:39)
[2016-05-26] MEDS: HEPARIN SODIUM - SQ 10,000 UNITS/ML VIAL SQ SCH ×2 (09:58→20:39)
[2016-05-26] MEDS: LACTOBACILLUS ACIDOPHILUS TAB PO SCH ×3 (09:59→17:53)
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
[2016-05-26 12:00] VITALS: BP 111/54; PULSE 76; RESP 20; TEMP 98; O2SAT 96
[2016-05-26] MEDS: fentaNYL 50 MCG/HR PATCH TD SCH (13:50)
[2016-05-26] MEDS: REMOVE OLD PATCH TD SCH (13:51)
--- NOTE | 2016-05-26 15:04 | HHI.HCPN ---
Reason for visit a. To assist with evaluation and management of symptoms including:Pain b. To assist medical decision maker(s) with: better understanding of current medical conditions; weighing benefits/burdens of medical treatment options; making medical treatment decisions. Subjective/Interval History Pt currently endorses her pain is well controlled, and had just taken PO dilaudid an hour earlier. Rate pain 3/10 and buring, shooting pain down both legs. Continue to take multiple PRN dilaudid. I spoke with patient reiterated that the dilaudid is only as needed, and not scheduled. Pt stated that nurses have been giving it to her scheduled. I told pt you do not need to take it, and reiterated it is not scheduled. Pt had been too sleeping when PO dose of dilaudid was increased. Pt stated he is amenable to current regimen of pain meds. Spoke with pt, that for her that due to her reaction, we could not escalate dilaudid for btp for the time being. Likely need to rely more on gabapentin. She is amenable to that. Currently pt rate pain 3/10. She is at the at her chair. Walker is placed in front of her. 60-year-old with a past medical history of hypothyroidism, hypertension, EF of 30-35%, PAD, chronic bilateral lower extremity wounds presented to the ER on for severe bilateral lower extremity pain and worsening wounds. Per patient they all started with bug bites. Patient was recently hospitalized and discharged April 25 for similar circumstances. In the ER: * WBC is 12.8, hemoglobin is 11.0, hematocrit 32.8, platelet is 390 * Sodium is 129, potassium is 4.2, chloride 99, bicarbonate 16.7, BUN 70%, creatinine is 4.50 * AST is 14, ALT 16, alkaline phosphatase is 122, albumin 3.2 * PTT 37.8 * UA shows large amount of leukocyte esterase, negative nitrite, culture was indicated * Chest x-ray shows no acute disease * Patient was given vancomycin and Zosyn in the ER. Patient was admitted to the hospital for bilateral lower extremity erythema, chronic ulcers distal to the knees. Care was transferred to hospitalist service. 05/14/2016= patient was given IV hydration cautiously. Creatinine has gradually improved to 3.75. Nephrology was consulted due to acute renal failure. Ultram renal cell was ordered. Infectious disease was also consulted was been managing antibiotics.Vascular surgery was consulted. Venous duplex was ordered to rule out DVT. 05/14-== in the meantime patient has been complaining of pain. She stated that the Percocet has not been working. Creatinine has declined to 2.08 on . Vascular surgery evaluated. Not able to do contrast study secondary to acute kidney injury on admission. Status post debridement by Dr. Colon on 05/15. -== patient continued to have pain and palliative care was consulted to help with pain management. Prior to admission she has been taking handfuls of NSAIDs was have likely cause some renal insufficiency. Patient continued to be on antibiotics. 05/20/2016- Pt states pain not well controlled, working with physical therapy. Current pain regimen includes Oramorph 30 mg PO q12 hours in which pt refused. Pt currently also on Dilaudid 2-4 mg po q 4 hours prn pain. Dilaudid 1 iv q 4 hour prn dressing change. Dilaudid 2 mg IV q 4 hour prn breakthrough pain. Pt on Neurontin 300 mg PO TID. Pt endorses her pain is better today than the past few days. She endorses burning sensation the way down to her feet, and it hurts to even walk. Rate pain 7/10, but at other times to other physician endorses 10/10. Discussion at bedside with patient and pt's family at bedside. Her goals is to get these wound better and to get pain under control, not ready for just comfort only. Long discussion about her kidneys, her pvd, and the fine balance between pain control and side effects. Pt and family understand there is no "magic medicine. " to get pain well controll without side effects. She states if pain could be manage to level 5 or so she would be better. Explained the role of long acting pain meds. She is amenable to start Fentanyl patch, and titrate in the next few days base on need. Amenable to increase gabapentin tomorrow if pain persists. Family/friend interactions no family at bedside today. Advance Directives Living Will: Never completed Health Care Surrogate: Never completed Durable Power of Stock Crane Operator: Never completed Objective Vital Signs Date Time Temp Pulse Resp B/P Pulse Ox O2 Delivery O2 Flow Rate FiO2 05/26/16 12:00 98.0 76 20 111/54 96 05/26/16 08:15 Room Air 05/26/16 08:00 97.8 69 20 111/53 96 05/26/16 04:00 98.3 79 20 123/60 97 05/26/16 00:00 98.5 76 20 123/60 94 05/25/16 20:00 99.3 84 20 129/61 94 05/25/16 20:00 Room Air 05/25/16 16:00 98.6 82 22 125/60 94 Intake & Output 05/26/16 05/26/16 06:59 18:59 Intake Total 540 ml Balance 540 ml Intake Oral 540 ml # Voids 3 # Bowel Movements 1 Physical Exam CONSTITUTIONAL/GENERAL: This is an adequately nourished patient, sitting in chair. SKIN: No jaundice, rashes, or lesions. Ecchymoses on upper extremities. No wounds seen anteriorly. Skin temperature appropriate. Not diaphoretic. HEAD: Atraumatic. Normocephalic. EYES: Pupils equal and round and reactive. Extraocular motions intact. No scleral icterus. No injection or drainage. Fundi not examined. ENT: Hearing grossly normal. Nose without bleeding or purulent drainage. Throat without visible erythema, exudates, masses, or lesions. NECK: Trachea midline. Supple, nontender. No palpable thyroid enlargement or nodularity. CARDIOVASCULAR: Regular rate and rhythm without murmurs, gallops, or rubs. No JVD. Peripheral pulses symmetric. RESPIRATORY/CHEST: Symmetric, unlabored respirations. Clear to auscultation. Breath sounds equal bilaterally. No wheezes, rales, or rhonchi. GASTROINTESTINAL: Abdomen soft, non-tender, nondistended. No hepato-splenomegaly , or palpable masses. No guarding. Bowel sounds present. GENITOURINARY: Without palpable bladder distension. Mcintyre catheter in place. MUSCULOSKELETAL: Extremities dressing in place bilaterally, c/d/i. LYMPHATICS: No palpable cervical or supraclavicular adenopathy. NEUROLOGICAL: Awake and alert. Motor and sensory grossly within normal limits. Follows commands. Cognitively sharp. Moves all extremities. PSYCHIATRIC: No obvious anxiety/depression. no apparent hallucinations or other psychotic thought process. Diagnostic Tests Laboratory Laboratory Tests Test 05/24/16 05/25/16 05/26/16 05/26/16 05:02 04:51 08:27 08:34 White Blood Count 12.6 TH/MM3 13.5 TH/MM3 15.8 TH/MM3 (4.0-11.0) (4.0-11.0) (4.0-11.0) Red Blood Count 3.62 MIL/MM3 3.36 MIL/MM3 3.28 MIL/MM3 (4.00-5.30) (4.00-5.30) (4.00-5.30) Hemoglobin 9.7 GM/DL 9.0 GM/DL 8.6 GM/DL (11.6-15.3) (11.6-15.3) (11.6-15.3) Hematocrit 29.3 % 27.3 % 26.6 % (35.0-46.0) (35.0-46.0) (35.0-46.0) Mean Corpuscular Volume 80.9 FL 81.4 FL 81.0 FL (80.0-100.0) (80.0-100.0) (80.0-100.0) Mean Corpuscular Hemoglobin 26.8 PG 26.8 PG 26.2 PG (27.0-34.0) (27.0-34.0) (27.0-34.0) Mean Corpuscular Hemoglobin 33.2 % 32.9 % 32.3 % Concent (32.0-36.0) (32.0-36.0) (32.0-36.0) Red Cell Distribution Width 13.7 % 13.7 % 13.8 % (11.6-17.2) (11.6-17.2) (11.6-17.2) Platelet Count 256 TH/MM3 255 TH/MM3 278 TH/MM3 (150-450) (150-450) (150-450) Mean Platelet Volume 7.3 FL 7.6 FL 7.3 FL (7.0-11.0) (7.0-11.0) (7.0-11.0) Neutrophils (%) (Auto) 79.2 % 80.1 % 79.5 % (16.0-70.0) (16.0-70.0) (16.0-70.0) Lymphocytes (%) (Auto) 9.9 % 8.1 % 9.7 % (9.0-44.0) (9.0-44.0) (9.0-44.0) Monocytes (%) (Auto) 9.2 % (0.0-8.0) 10.4 % 8.5 % (0.0-8.0) (0.0-8.0) Eosinophils (%) (Auto) 1.3 % (0.0-4.0) 0.9 % (0.0-4.0) 2.0 % (0.0-4.0) Basophils (%) (Auto) 0.4 % (0.0-2.0) 0.5 % (0.0-2.0) 0.3 % (0.0-2.0) Neutrophils # (Auto) 9.9 TH/MM3 10.8 TH/MM3 12.6 TH/MM3 (1.8-7.7) (1.8-7.7) (1.8-7.7) Lymphocytes # (Auto) 1.3 TH/MM3 1.1 TH/MM3 1.5 TH/MM3 (1.0-4.8) (1.0-4.8) (1.0-4.8) Monocytes # (Auto) 1.2 TH/MM3 1.4 TH/MM3 1.4 TH/MM3 (0-0.9) (0-0.9) (0-0.9) Eosinophils # (Auto) 0.2 TH/MM3 0.1 TH/MM3 0.3 TH/MM3 (0-0.4) (0-0.4) (0-0.4) Basophils # (Auto) 0.1 TH/MM3 0.1 TH/MM3 0.1 TH/MM3 (0-0.2) (0-0.2) (0-0.2) CBC Comment AUTO DIFF DIFF FINAL DIFF FINAL Differential Total Cells 100 Counted Neutrophils % (Manual) 69 % (16-70) Band Neutrophils % 8 % (0-6) Lymphocytes % 13 % (9-44) Monocytes % 7 % (0-8) Basophils % 1 % (0-2) Neutrophils # (Manual) 10.0 TH/MM3 (1.8-7.7) Myelocytes 2 % (0-0) Differential Comment FINAL DIFF MANUAL Platelet Estimate NORMAL (NORMAL) Platelet Morphology Comment NORMAL (NORMAL) Sodium Level 133 MEQ/L 136 MEQ/L 128 MEQ/L (136-145) (136-145) (136-145) Potassium Level 4.4 MEQ/L 4.3 MEQ/L 4.5 MEQ/L (3.5-5.1) (3.5-5.1) (3.5-5.1) Chloride Level 100 MEQ/L 102 MEQ/L 94 MEQ/L (98-107) (98-107) (98-107) Carbon Dioxide Level 22.2 MEQ/L 23.8 MEQ/L 25.3 MEQ/L (21.0-32.0) (21.0-32.0) (21.0-32.0) Anion Gap 11 MEQ/L (5-15) 10 MEQ/L (5-15) 9 MEQ/L (5-15) Blood Urea Nitrogen 39 MG/DL (7-18) 25 MG/DL (7-18) 37 MG/DL (7-18) Creatinine 1.09 MG/DL 0.88 MG/DL 1.35 MG/DL (0.50-1.00) (0.50-1.00) (0.50-1.00) Estimat Glomerular Filtration 51 ML/MIN (>89) 65 ML/MIN (>89) 40 ML/MIN (>89) Rate Random Glucose 160 MG/DL 128 MG/DL 121 MG/DL (74-106) (74-106) (74-106) Calcium Level 8.9 MG/DL 8.7 MG/DL 8.5 MG/DL (8.5-10.1) (8.5-10.1) (8.5-10.1) Result Diagram: 05/26/1634 05/26/16826 Assessment and Plan Disease Oriented Problem List: (1) Cellulitis and abscess of lower extremity Comment: Bilateraly non healing venous status ulcers. Failed outpatient treatment. Not able to do contrast study due to acute kindy injury. S/P debridement by podiatry. Severe pain (2) CHF (congestive heart failure) Comment: cardiomyopathy EF 30% (3) DM (diabetes mellitus), type 2, uncontrolled w/neurologic complication (4) PVD (peripheral vascular disease) (5) Allergic reaction to contrast dye Symptom Scale: (1) Pain 0-10 Scale: 7 Pertinent Non-Medical Issues Psychosocial: Spiritual: Legal: Ethical issues impacting care: Important Contacts Alfredo Lemos [phone] Prognosis 60 with cardiomyopathy and non healing ulcers 2nd to PVD. Prognosis is guarded to poor. At risk for sudden setback and decline. Likely will continue trend with multiple hospitalization. Code Status: Full Code Plan == Pain. from pvd, wounds, and neuropathy, mostly in the lower ext. Cont gabapentin ( just increase last week thur) Pt became to lethargic, after increase in PO dilaudid. Explained to pt we cannot increase PO dilaudid anymore, and probably will have to rely more on gabapentin. Cont Fentanyl (pt have some renal insufficiency). == anxiety- very anxious and anticipation of pain is a big part of her discomfort. Ativan prn. == goals: aggressive. pt wants wound to get better and to continue to get treatment. They want to follow up with Dr. Garcias. == Proxy would be her spouse. == Code: Full == Unsure about peg or Trach. She will discuss with children. == Palliative care will continue to follow. Time Spent Total Floor Time (mins): 30 Face to Face Time (mins): 20 Attestation To help prompt me to consider important information that might be impacting today's encounter and assessment, information from prior notes written by myself or my colleagues may have been "brought forward" into today's note. My signature on this note, however, is an attestation that I personally performed the exam, history, and/or decision-making noted today, and, unless otherwise indicated, the interactions with patient, family, and staff as well as the review of records all occurred today. I also attest that the listed assessment and stated plan reflect my best clinical judgment today based on the combination of historical information, prior notes, and today's exam/ interactions. When time spent is documented, it refers only to time spent today by the signer, or if indicated, combined time spent today by collaborating physician/nurse practitioner. Mariusz Reed MD May 26, 2016 15:03
--- NOTE | 2016-05-26 15:21 | HHI.PR ---
Subjective Remarks Patient seen today around 1 PM. She says that when she woke up the pain in both legs was minimal. She denies any chest pain or shortness of breath. Denies any nausea or vomiting. She reports sharp shooting pains in her legs, initially upon elevating her legs, however this goes down eventually. She appears to have lost her fentanyl patch. Discussed with nursing. We'll replace , give when necessary meds. Discussed with patient and friend at bedside. We'll try Robaxin for cramping pain in legs Objective Vital Signs Date Time Temp Pulse Resp B/P Pulse Ox O2 Delivery O2 Flow Rate FiO2 05/26/16 12:00 98.0 76 20 111/54 96 05/26/16 08:15 Room Air 05/26/16 08:00 97.8 69 20 111/53 96 05/26/16 04:00 98.3 79 20 123/60 97 05/26/16 00:00 98.5 76 20 123/60 94 05/25/16 20:00 99.3 84 20 129/61 94 05/25/16 20:00 Room Air 05/25/16 16:00 98.6 82 22 125/60 94 I/O 05/25/16 05/25/16 05/25/16 05/26/16 05/26/16 05/26/16 07:00 15:00 23:00 07:00 15:00 23:00 Intake Total 320 ml 220 ml Balance 320 ml 220 ml Intake Oral 320 ml 220 ml # Voids 2 1 # Bowel Movements 1 0 Result Diagram: 05/26/16 0834 05/26/16 0827 Objective Remarks GENERAL: Patient awake, however still somnolent. Much more alert and talkative. Continues to be oriented. SKIN: Warm and dry. HEAD: Normocephalic. EYES: No scleral icterus. No injection or drainage. NECK: Supple, trachea midline. No JVD or lymphadenopathy. CARDIOVASCULAR: Regular rate and rhythm without murmurs, gallops, or rubs. RESPIRATORY: Breath sounds equal bilaterally. No accessory muscle use. GASTROINTESTINAL: Abdomen soft, non-tender, nondistended. MUSCULOSKELETAL: No cyanosis. bilateral lower extremity venous stasis wounds are dressed. Edema in feet appears to have worsened slightly since yesterday. Capillary refill adequate. 05/24. Wounds examined during dressing change. Still with ulcerations and faint erythema circumferentially around left ankle, as well as less so over right. Ischemic left second and third toes. BACK: Nontender without obvious deformity. No CVA tenderness. A/P Assessment and Plan ===== 05/26/16 Bilateral lower extremity edema a little worse, patient having been up today. Patient reporting cramps in her calves when she raises her legs. We'll start on Robaxin. Electrolytes appear stable. We will increase gabapentin for neuropathic pain. -Increase in creatinine 1.35 today. Also with hyponatremia. Possibly secondary to losartan. We'll recheck. Hold losartan for now. //Bilateral nonhealing venous stasis ulcers/ Bilateral lower extremity cellulitis //Failure of outpatient treatment. Vascular surgery evaluated. Not able to do contrast study secondary to //acute kidney injury on admission. Status post debridement by Dr. Colon on 05/15. Pain improved 05/21. -Palliative care consult appreciated. - Continue pain control with a bowel regimen. Adjusted by palliative care 05/22. - Continue antibiotics as per infectious disease. - wound care per podiatry. - 05/23. Discussed with podiatry. Main problem is bilateral lower extremity edema. BNP is not markedly elevated, however patient does have ejection fraction measured 35% earlier this year. Will order new echocardiogram. It would be helpful to order diuretics, however renal function is very poor at the moment. Continue to monitor. 05/24-Echocardiogram with continued ejection fraction 30%. Consult cardiology. Start Lasix. 05/25- cardiology consult appreciated. Start Lasix and ARB. //Pain control - Continue fentanyl patch as per palliative care. - 05/24. Someone on increased dose of narcotics. Will decrease Dilaudid by mouth. Continue monitor closely. Appreciate palliative care assistance. -mproved alertness on decreased pain medication, however patient reports worsening pain. We cannot increase narcotic pain medication anymore right now. //Acute kidney injury. Creatinine 4.5 on admission. Most recent baseline 1.15 on April 24. Likely secondary to NSAIDs in conjunction with losartan. Patient says she was taking "handfuls" of NSAIDs. Appreciate nephrology consult. Creatinine has stabilized. - Continue to hold losartan, Lasix. Avoid nephrotoxins. - follow up with nephrology. - Kidney function continues stable. follow BMP. 1/2-Increase in creatinine 1.35 today. Also with hyponatremia. Possibly secondary to losartan. We'll recheck. Hold losartan for now. //Cardiomyopathy Ejection fraction 30%. Has lower extremity edema. - Continue Coreg - Hold Lasix due to kidney injury. - 05/23. Previous ejection fraction of 30-35% was following acute episode of flash pulmonary edema. Repeat echocardiogram ordered and pending. Consider cardiology consultation for assistance with management. 05/24 - Kidney function improved. Start Lasix -/ -slight bump in creatinine on losartan. We'll hold losartan for now. Continue Lasix. //Diabetes -Is on long-acting insulin at home. - Patient is on glargine 20 units twice daily at home. - Continue Levemir 20 units twice daily. - Glucose level acceptable. Continue monitor. //Hyponatremia. Resolved. 128 on admission. Improved. Stable. - follow BMP. //Right shoulder pain.. Appears to have improved. Exam unremarkable. Likely muscle strain. - continue pain control. - physical therapy. Prophylaxis. Subcutaneous heparin. Discharge Planning -Still with uncontrolled pain. Continuing to adjust pain medications. Palliative care assistance appreciated. -Working on edema control. can discharge to SNF when pain is controlled. Jeffrey Chappell MD May 26, 2016 15:20
[2016-05-26 16:00] VITALS: BP 100/51; PULSE 71; RESP 12; TEMP 97.8; O2SAT 96
[2016-05-26] MEDS ORDERED: GABAPENTIN 300 MG CAP PO SCH (18:00)
[2016-05-26 18:39] LABS: BICARBONATE 25.8 MEQ/L (21.0-32.0)
[2016-05-26 20:17] VITALS: BP 106/51; PULSE 73; RESP 18; TEMP 97.6; O2SAT 93
[2016-05-26] MEDS: METHOCARBAMOL 500 MG TAB PO SCH (20:37)
[2016-05-27 00:42] VITALS: BP 102/65; PULSE 72; RESP 18; TEMP 97.9; O2SAT 96
[2016-05-27] MEDS: CLINDAMYCIN 150 MG CAP PO SCH ×5 (00:45→23:22)
[2016-05-27] MEDS: HYDROmorphone HCL 4 MG TAB PO PRN (00:46)
[2016-05-27 04:30] VITALS: BP 112/61; PULSE 69; RESP 18; TEMP 97.7; O2SAT 97
[2016-05-27] MEDS: LEVOTHYROXINE SODIUM 100 MCG TAB PO SCH (06:02)
[2016-05-27] MEDS: METHOCARBAMOL 500 MG TAB PO SCH ×3 (06:02→21:49)
[2016-05-27] MEDS: INSULIN ASPART SUPPLEMENTAL SCALE SQ SCH ×4 (06:02→21:00)
[2016-05-27] MEDS: LEVOTHYROXINE SODIUM 75 MCG TAB PO SCH (06:02)
[2016-05-27 08:00] VITALS: BP 114/53; PULSE 65; RESP 16; TEMP 97.9; O2SAT 97
[2016-05-27] MEDS: LACTOBACILLUS ACIDOPHILUS TAB PO SCH ×3 (08:35→17:17)
[2016-05-27] MEDS: HYDROmorphone HCL PF 1 MG/ML VIAL IV PUSH PRN ×2 (08:35→15:59)
[2016-05-27] MEDS: GABAPENTIN 300 MG CAP PO SCH ×2 (08:35→21:50)
[2016-05-27] MEDS: LIOTHYRONINE SODIUM 5 MCG TAB PO SCH (08:36)
[2016-05-27] MEDS: FUROSEMIDE 20 MG TAB PO SCH (08:36)
[2016-05-27] MEDS: CARVEDILOL 12.5 MG TAB PO SCH ×2 (08:36→21:49)
[2016-05-27] MEDS: INSULIN DETEMIR 100 UNITS/ML VIAL SQ SCH ×2 (08:36→21:48)
[2016-05-27] MEDS: HEPARIN SODIUM - SQ 10,000 UNITS/ML VIAL SQ SCH ×2 (08:36→21:48)
[2016-05-27] MEDS: buPROPion HCL 150 MG SUSTAINED RELEASE TAB PO SCH ×2 (08:36→21:49)
[2016-05-27] MEDS: CIPROFLOXACIN 500 MG TAB PO SCH ×2 (08:36→21:50)
[2016-05-27] MEDS: DULoxetine HCl DR 30 MG CAP PO SCH ×2 (08:36→21:50)
[2016-05-27] MEDS: DOCUSATE SODIUM 100 MG CAP PO SCH ×2 (08:36→21:00)
[2016-05-27] MEDS: SODIUM CHLORIDE 0.9% FLUSH 5 ML FLUSH FLUSH SCH ×2 (08:37→21:51)
[2016-05-27] MEDS: SILVER SULFADIAZINE 1% CR 400 GM JAR TOPICAL SCH (08:45)
[2016-05-27 08:59] LABS: BICARBONATE 24.9 MEQ/L (21.0-32.0); POTASSIUM 4.6 MEQ/L (3.5-5.1)
[2016-05-27 09:03] LABS: AUTOMATED NEUTROPHIL # 9.7 TH/MM3 (1.8-7.7); BASOPHIL # 0.1 TH/MM3 (0-0.2); BASOPHIL % 0.6 % (0.0-2.0); EOSINOPHIL # 0.3 TH/MM3 (0-0.4); EOSINOPHIL % 2.5 % (0.0-4.0); HEMATOCRIT 28.2 % (35.0-46.0); LYMPH % 11.6 % (9.0-44.0); LYMPHOCYTE # 1.5 TH/MM3 (1.0-4.8); MEAN CELL VOLUME 80.7 FL (80.0-100.0); MEAN CORPUSCULAR HEMOGLOBIN 26.5 PG (27.0-34.0); MEAN CORPUSCULAR HGB CONC 32.8 % (32.0-36.0); MONO % 8.8 % (0.0-8.0); NEUT % 76.5 % (16.0-70.0); PLATELET COUNT 352 TH/MM3 (150-450); RED BLOOD COUNT 3.49 MIL/MM3 (4.00-5.30); RED CELL DISTRIBUTION WIDTH 13.7 % (11.6-17.2); WHITE BLOOD COUNT 12.7 TH/MM3 (4.0-11.0)
[2016-05-27 09:16] LABS: HEMO FLAGS AUTO DIFF
--- NOTE | 2016-05-27 09:46 | PD.CARD.PN ---
Subjective Subjective Remarks no chest pain. No dyspnea Objective Medications Current Medications Medications (Trade) Dose Ordered Sig/Virgilio Route Start Time Stop Time Status Last Admin (NS Flush) 2 ml UNSCH PRN FLUSH 05/13/16 18:45 05/18/16 02:50 (NS Flush) 2 ml BID FLUSH 05/13/16 21:00 05/27/16 08:37 (Zofran Inj) 4 mg Q6H PRN IVP 05/13/16 18:45 05/15/16 08:07 (Dulcolax Supp) 10 mg DAILY PRN NV 05/13/16 18:45 (Milk Of Magnesia Liq) 30 ml Q12H PRN PO 05/13/16 18:45 (Senokot) 17.2 mg Q12H PRN PO 05/13/16 18:45 (Heparin Inj) 5,000 units Q12H SQ 05/13/16 20:00 05/27/16 08:36 (Narcan Inj) 0.4 mg UNSCH PRN IV 05/13/16 18:45 (Wellbutrin Sr) 150 mg Q12HR PO 05/13/16 21:00 05/27/16 08:36 (Coreg) 25 mg BID PO 05/13/16 21:00 05/27/16 08:36 (D50w (Vial) Inj) 25 ml UNSCH PRN IV PUSH 05/13/16 19:00 (Glucagon Inj) 1 mg UNSCH PRN OTHER 05/13/16 19:00 (Synthroid) 75 mcg DAILY@06 PO 05/14/16 06:00 05/27/16 06:02 (Synthroid) 100 mcg DAILY@06 PO 05/14/16 06:00 05/27/16 06:02 (Cytomel) 5 mcg DAILY PO 05/14/16 09:00 05/27/16 08:36 (Lactinex) 1 tab TID PO 05/14/16 09:00 05/27/16 08:35 (Cymbalta Dr) 30 mg BID PO 05/14/16 21:00 05/27/16 08:36 (Silvadene 1% Cream (400 Gm)) 1 applic DAILY TOPICAL 05/14/16 18:00 05/27/16 08:45 (Colace) 100 mg BID PO 05/17/16 10:00 05/27/16 08:36 (Cleocin) 300 mg Q6HR PO 05/17/16 12:00 05/27/16 06:02 (Levemir Inj) 20 units Q12HR SQ 05/20/16 21:00 05/27/16 08:36 (Cipro) 500 mg Q12HR PO 05/20/16 12:45 05/27/16 08:36 (Duragesic 50 Mcg Patch.72 Hr) 1 patch Q3D TD 05/23/16 14:00 05/26/16 13:50 Miscellaneous Information 1 Q3D TD 05/26/16 14:00 05/26/16 13:51 (Dilaudid Pf Inj) 0.2 mg Q4H PRN IV PUSH 05/24/16 16:30 05/25/16 18:17 (Dilaudid Pf Inj) 0.5 mg Q4H PRN IV PUSH 05/24/16 20:00 05/27/16 08:35 (Dilaudid) 2 mg Q4H PRN PO 05/24/16 17:30 (Dilaudid) 4 mg Q4H PRN PO 05/24/16 20:00 05/27/16 00:46 (Lasix) 20 mg DAILY PO 05/26/16 09:00 05/27/16 08:36 (Robaxin) 750 mg Q8HR PO 05/26/16 22:00 05/27/16 06:02 (Neurontin) 300 mg BID PO 05/27/16 09:00 05/27/16 08:35 Vital Signs / I&O Vital Signs Date Time Temp Pulse Resp B/P Pulse Ox O2 Delivery O2 Flow Rate FiO2 05/27/16 04:30 97.7 69 18 112/61 97 05/27/16 00:42 97.9 72 18 102/65 96 05/26/16 20:17 97.6 73 18 106/51 93 05/26/16 19:45 Room Air 05/26/16 16:00 97.8 71 12 100/51 96 05/26/16 12:00 98.0 76 20 111/54 96 I/O 05/26/16 05/26/16 05/26/16 05/27/16 05/27/16 05/27/16 06:59 14:59 22:59 06:59 14:59 22:59 Intake Total 220 ml 1050 ml 280 ml 0 ml Output Total 0 ml 0 ml Balance 220 ml 1050 ml 280 ml 0 ml Intake Oral 220 ml 1050 ml 280 ml 0 ml Output Urine Total 0 ml 0 ml # Voids 1 2 # Bowel Movements 0 1 1 0 Physical Exam Alert Morbidly obese Chest CTA CV S1S2 RRR Ext: legs edematous and wrapped in JOYCE bandages Laboratory Laboratory Tests Test 05/26/16 05/27/16 17:49 08:24 Sodium Level 131 MEQ/L 129 MEQ/L Potassium Level 5.0 MEQ/L 4.6 MEQ/L Chloride Level 96 MEQ/L 93 MEQ/L Carbon Dioxide Level 25.8 MEQ/L 24.9 MEQ/L Anion Gap 9 MEQ/L 11 MEQ/L Blood Urea Nitrogen 45 MG/DL 57 MG/DL Creatinine 2.41 MG/DL 2.68 MG/DL Estimat Glomerular Filtration 20 ML/MIN 18 ML/MIN Rate Random Glucose 139 MG/DL 133 MG/DL Calcium Level 8.4 MG/DL 8.5 MG/DL White Blood Count 12.7 TH/MM3 Red Blood Count 3.49 MIL/MM3 Hemoglobin 9.2 GM/DL Hematocrit 28.2 % Mean Corpuscular Volume 80.7 FL Mean Corpuscular Hemoglobin 26.5 PG Mean Corpuscular Hemoglobin 32.8 % Concent Red Cell Distribution Width 13.7 % Platelet Count 352 TH/MM3 Mean Platelet Volume 7.4 FL Neutrophils (%) (Auto) 76.5 % Lymphocytes (%) (Auto) 11.6 % Monocytes (%) (Auto) 8.8 % Eosinophils (%) (Auto) 2.5 % Basophils (%) (Auto) 0.6 % Neutrophils # (Auto) 9.7 TH/MM3 Lymphocytes # (Auto) 1.5 TH/MM3 Monocytes # (Auto) 1.1 TH/MM3 Eosinophils # (Auto) 0.3 TH/MM3 Basophils # (Auto) 0.1 TH/MM3 CBC Comment AUTO DIFF Assessment and Plan Problem List: (1) Cardiomyopathy Assessment and Plan: On carvedilol (2) CHF (congestive heart failure) Assessment and Plan: compensated. Lungs are clear (3) Acute kidney failure, unspecified Assessment and Plan: Looks like renal stopped following. Dr. Willingham said Dr. Estrada to F/u so reconsulted Zoltan Garcias MD May 27, 2016 09:46
[2016-05-27 10:17] LABS: BANDS 1 % (0-6); EOSINOPHILS 2 % (0-4); METAMYELOCYTES 1 % (0-1); MYELOCYTES 1 % (0-0); NEUTROPHIL # MANUAL DIFF 9.9 TH/MM3 (1.8-7.7); PLATELET ESTIMATE SMEAR NORMAL (NORMAL); PLATELET MORPHOLOGY NORMAL (NORMAL); POLYS (SEG NEUTROPHILS) 75 % (16-70); SCAN/DIFF FINAL DIFF MANUAL; WBC DIFF SAMPLE 100
[2016-05-27 12:00] VITALS: BP 122/62; PULSE 71; RESP 16; TEMP 97.6; O2SAT 96
[2016-05-27 16:00] VITALS: BP 119/60; PULSE 70; RESP 18; TEMP 97.9; O2SAT 97
--- NOTE | 2016-05-27 19:29 | HHI.PR ---
Subjective Remarks patient seen today around noon. Sitting up on edge of bed. Says that bilateral lower extremity pain is better than yesterday. She denies any chest pain or shortness of breath.denies any dysuria or difficulty urinating. She does report a several week history of right shoulder pain worse with movement, weakness of the right shoulder due to pain. Objective Vital Signs Date Time Temp Pulse Resp B/P Pulse Ox O2 Delivery O2 Flow Rate FiO2 05/27/16 16:00 97.9 70 18 119/60 97 05/27/16 12:00 97.6 71 16 122/62 96 05/27/16 11:33 Room Air 21 05/27/16 08:00 97.9 65 16 114/53 97 05/27/16 04:30 97.7 69 18 112/61 97 05/27/16 00:42 97.9 72 18 102/65 96 05/26/16 20:17 97.6 73 18 106/51 93 05/26/16 19:45 Room Air I/O 05/26/16 05/26/16 05/26/16 05/27/16 05/27/16 05/27/16 07:00 15:00 23:00 07:00 15:00 23:00 Intake Total 220 ml 1050 ml 280 ml 0 ml 240 ml Output Total 0 ml 0 ml Balance 220 ml 1050 ml 280 ml 0 ml 240 ml Intake Oral 220 ml 1050 ml 280 ml 0 ml 240 ml Output Urine Total 0 ml 0 ml # Voids 1 2 1 # Bowel Movements 0 1 1 0 0 Result Diagram: 05/27/16 0824 05/27/16 0824 Imaging Last Impressions Renal Ultrasound 05/14/16 1457 Signed Impressions: Service Date/Time: Saturday, May 14, 2016 15:20 - CONCLUSION: 1. Increased echogenicity of the kidneys suggesting underlying medical renal disease. No findings to indicate renal obstruction. Jose Rogers MD Lower Extremity Ultrasound 05/14/16 0948 Signed Impressions: Service Date/Time: Saturday, May 14, 2016 14:30 - CONCLUSION: 1. No DVT identified. 2. No abscess seen in the subcutaneous soft tissues Jose Rogers MD Foot X-Ray 05/14/16 0000 Signed Impressions: Service Date/Time: Saturday, May 14, 2016 19:35 - CONCLUSION: 1. Extensive soft tissue swelling with no evidence to suggest osteomyelitis. 2. There are no radiopaque foreign bodies. Janes Danielson MD Chest X-Ray 05/13/16 1632 Signed Impressions: Service Date/Time: Friday, May 13, 2016 17:23 - CONCLUSION: No acute disease. Shamar Banuelos MD Objective Remarks GENERAL: Patient awake,sitting up on edge of bed. alert, oriented x3.. SKIN: Warm and dry. HEAD: Normocephalic. EYES: No scleral icterus. No injection or drainage. NECK: Supple, trachea midline. No JVD or lymphadenopathy. CARDIOVASCULAR: Regular rate and rhythm without murmurs, gallops, or rubs. RESPIRATORY: Breath sounds equal bilaterally. No accessory muscle use. GASTROINTESTINAL: Abdomen soft, non-tender, nondistended. MUSCULOSKELETAL: No cyanosis. bilateral lower extremity venous stasis wounds are dressed. Edema in feet appears to have worsened slightly since yesterday. Capillary refill adequate. 05/24. Wounds examined during dressing change. Still with ulcerations and faint erythema circumferentially around left ankle, as well as less so over right. Ischemic left second and third toes. -patient with inability to lift right shoulder. No tenderness to palpation of the shoulder joint. 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 No CVA tenderness. A/P Assessment and Plan ===== 05/26/16 Bilateral lower extremity edema about the same. Stress compliance with taking legs elevated Pain improved, and if patient did not have recurrence of acute kidney injury at this time, would be considering discharge acute kidney injury. Nephrology consulted. Continue to hold ARB. Urinalysis and Labs for fractional excretion of sodium ordered. Decreased gabapentin. Right shoulder pain. Suspect rotator cuff pathology from injury prior to admission. Patient requests x-ray. X-ray pending. //Bilateral nonhealing venous stasis ulcers/ Bilateral lower extremity cellulitis //Failure of outpatient treatment. Vascular surgery evaluated. Not able to do contrast study secondary to //acute kidney injury on admission. Status post debridement by Dr. Colon on 05/15. Pain improved 05/21. -Palliative care consult appreciated. - Continue pain control with a bowel regimen. Adjusted by palliative care 05/22. - Continue antibiotics as per infectious disease. - wound care per podiatry. - 05/23. Discussed with podiatry. Main problem is bilateral lower extremity edema. BNP is not markedly elevated, however patient does have ejection fraction measured 35% earlier this year. Will order new echocardiogram. It would be helpful to order diuretics, however renal function is very poor at the moment. Continue to monitor. 05/24-Echocardiogram with continued ejection fraction 30%. Consult cardiology. Start Lasix. 05/25- cardiology consult appreciated. Start Lasix and ARB. 05/27 Holding Lasix and ARB due to acute kidney injury. //Pain control - Continue fentanyl patch as per palliative care. - 05/24. Someone on increased dose of narcotics. Will decrease Dilaudid by mouth. Continue monitor closely. Appreciate palliative care assistance. -mproved alertness on decreased pain medication, however patient reports worsening pain. We cannot increase narcotic pain medication anymore right now. = Pain continues stable. //Acute kidney injury. Creatinine 4.5 on admission. Most recent baseline 1.15 on April 24. Likely secondary to NSAIDs in conjunction with losartan. Patient says she was taking "handfuls" of NSAIDs. Appreciate nephrology consult. Creatinine has stabilized. - Continue to hold losartan, Lasix. Avoid nephrotoxins. - follow up with nephrology. - Kidney function continues stable. follow BMP. 05/26-Increase in creatinine 1.35 today. Also with hyponatremia. Possibly secondary to losartan. We'll recheck. Hold losartan. 05/27. Creatinine up to 2.68. Hold both losartan and Lasix. Urinalysis and urine electrolytes pending. Nephrology reconsult. //Cardiomyopathy Ejection fraction 30%. Has lower extremity edema. - Continue Coreg - Hold Lasix due to kidney injury. - 05/23. Previous ejection fraction of 30-35% was following acute episode of flash pulmonary edema. Repeat echocardiogram ordered and pending. Consider cardiology consultation for assistance with management. 05/24 - Kidney function improved. Start Lasix -05/26 -slight bump in creatinine on losartan. We'll hold losartan for now. Continue Lasix. 05/27. Hold both losartan and Lasix do to acute kidney injury //Diabetes -Is on long-acting insulin at home. - Patient is on glargine 20 units twice daily at home. - Continue Levemir 20 units twice daily. - Glucose level acceptable. Continue monitor. //Hyponatremia. Resolved. 128 on admission. 129 currently. Overall stable. Asymptomatic. - follow BMP. //Right shoulder pain.. Appears to have improved. Exam unremarkable. Likely muscle strain. - continue pain control. - physical therapy. - 05/27. Not improving significantly. X-ray as per patient request. Prophylaxis. Subcutaneous heparin. Discharge Planning -pain improved. Palliative care assistance appreciated. -edema control and compliance with elevation will continue to require constant reinforcement after discharge. -holding discharge secondary to acute kidney injury. -can discharge to SNF when acute kidney injury resolved Jeffrey Chappell MD May 27, 2016 19:29
[2016-05-27 20:37] VITALS: BP 107/74; PULSE 71; RESP 18; TEMP 97.7; O2SAT 96
--- NOTE | 2016-05-27 21:03 | RADRPT ---
EXAM DATE/TIME: 05/27/2016 20:33 [facility] COMPARISON: No previous studies available for comparison. INDICATIONS : Right shoulder pain after falling with limited range of motion. MEDICAL HISTORY : Hypertension. Diabetes mellitus type II. SURGICAL HISTORY : None. ENCOUNTER: Initial ACUITY: 4 - 6 days PAIN SCORE: 2/10 LOCATION: Right shoulder joint. FINDINGS: Two view examination of the right shoulder demonstrates no evidence of fracture or dislocation. The glenohumeral and acromioclavicular joints are maintained. Bony mineralization is normal. CONCLUSION: Unremarkable limited examination of the right shoulder. Alfredo Etienne MD on May 27, 2016 at 21:01 Board Certified Radiologist. This report was verified electronically.
[2016-05-28 00:31] VITALS: BP 118/70; PULSE 73; RESP 18; TEMP 98.6; O2SAT 97
[2016-05-28 04:00] VITALS: BP_SYST 58; PULSE 92; RESP 18; TEMP 98.4; O2SAT 98
[2016-05-28] MEDS: LEVOTHYROXINE SODIUM 75 MCG TAB PO SCH (06:39)
[2016-05-28] MEDS: LEVOTHYROXINE SODIUM 100 MCG TAB PO SCH (06:39)
[2016-05-28] MEDS: METHOCARBAMOL 500 MG TAB PO SCH ×3 (06:40→20:13)
[2016-05-28] MEDS: CLINDAMYCIN 150 MG CAP PO SCH ×3 (06:40→17:17)
[2016-05-28] MEDS: INSULIN ASPART SUPPLEMENTAL SCALE SQ SCH ×4 (06:41→20:44)
[2016-05-28 07:50] LABS: BACTERIA, URINE RARE /hpf; BLOOD, URINE NEG (NEG); COMMENT (UR) CULT NOT INDICATED; CULTURE IF INDICATED CULT NOT INDICATED; GLUCOSE,URINE NEG (NEG); HYALINE CAST, URINE 5 /lpf (RARE); KETONE, URINE NEG (NEG); MUCUS URINE FEW /lpf (OCC); NITRITE,URINE NEG (NEG); SQUAMOUS EPITHELIAL CELL URINE 1 /hpf (0-5); URINE COLOR YELLOW (YELLW/STRAW)
[2016-05-28] MEDS: DULoxetine HCl DR 30 MG CAP PO SCH ×2 (07:53→20:13)
[2016-05-28] MEDS: buPROPion HCL 150 MG SUSTAINED RELEASE TAB PO SCH ×2 (07:53→20:13)
[2016-05-28] MEDS: GABAPENTIN 300 MG CAP PO SCH ×2 (07:54→20:13)
[2016-05-28] MEDS: LACTOBACILLUS ACIDOPHILUS TAB PO SCH ×3 (07:54→17:18)
[2016-05-28] MEDS: CIPROFLOXACIN 500 MG TAB PO SCH ×2 (07:54→10:21)
[2016-05-28] MEDS: DOCUSATE SODIUM 100 MG CAP PO SCH ×2 (07:54→20:13)
[2016-05-28] MEDS: LIOTHYRONINE SODIUM 5 MCG TAB PO SCH (07:54)
[2016-05-28] MEDS: CARVEDILOL 12.5 MG TAB PO SCH ×2 (07:54→20:14)
[2016-05-28] MEDS: HEPARIN SODIUM - SQ 10,000 UNITS/ML VIAL SQ SCH ×2 (07:55→20:12)
[2016-05-28] MEDS: INSULIN DETEMIR 100 UNITS/ML VIAL SQ SCH ×2 (07:55→20:14)
[2016-05-28] MEDS: HYDROmorphone HCL PF 1 MG/ML VIAL IV PUSH PRN ×4 (07:55→20:06)
[2016-05-28] MEDS: SODIUM CHLORIDE 0.9% FLUSH 5 ML FLUSH FLUSH SCH ×2 (07:55→20:14)
[2016-05-28] MEDS: SILVER SULFADIAZINE 1% CR 400 GM JAR TOPICAL SCH (07:56)
[2016-05-28 08:00] VITALS: BP 111/57; PULSE 72; RESP 16; TEMP 97.9; O2SAT 96
--- NOTE | 2016-05-28 10:36 | PD.CARD.PN ---
Subjective Subjective Remarks no complaints. States she is urinating well Objective Medications Current Medications Medications (Trade) Dose Ordered Sig/Virgilio Route Start Time Stop Time Status Last Admin (NS Flush) 2 ml UNSCH PRN FLUSH 05/13/16 18:45 05/18/16 02:50 (NS Flush) 2 ml BID FLUSH 05/13/16 21:00 05/28/16 07:55 (Zofran Inj) 4 mg Q6H PRN IVP 05/13/16 18:45 05/15/16 08:07 (Dulcolax Supp) 10 mg DAILY PRN DE 05/13/16 18:45 (Milk Of Magnmandeep Liq) 30 ml Q12H PRN PO 05/13/16 18:45 (Senokot) 17.2 mg Q12H PRN PO 05/13/16 18:45 (Heparin Inj) 5,000 units Q12H SQ 05/13/16 20:00 05/28/16 07:55 (Narcan Inj) 0.4 mg UNSCH PRN IV 05/13/16 18:45 (Wellbutrin Sr) 150 mg Q12HR PO 05/13/16 21:00 05/28/16 07:53 (Coreg) 25 mg BID PO 05/13/16 21:00 05/28/16 07:54 (D50w (Vial) Inj) 25 ml UNSCH PRN IV PUSH 05/13/16 19:00 (Glucagon Inj) 1 mg UNSCH PRN OTHER 05/13/16 19:00 (Synthroid) 75 mcg DAILY@06 PO 05/14/16 06:00 05/28/16 06:39 (Synthroid) 100 mcg DAILY@06 PO 05/14/16 06:00 05/28/16 06:39 (Cytomel) 5 mcg DAILY PO 05/14/16 09:00 05/28/16 07:54 (Lactinex) 1 tab TID PO 05/14/16 09:00 05/28/16 07:54 (Cymbalta Dr) 30 mg BID PO 05/14/16 21:00 05/28/16 07:53 (Silvadene 1% Cream (400 Gm)) 1 applic DAILY TOPICAL 05/14/16 18:00 05/28/16 07:56 (Colace) 100 mg BID PO 05/17/16 10:00 1/4/17 07:54 (Cleocin) 300 mg Q6HR PO 05/17/16 12:00 05/28/16 06:40 (Levemir Inj) 20 units Q12HR SQ 05/20/16 21:00 05/28/16 07:55 (Duragesic 50 Mcg Patch.72 Hr) 1 patch Q3D TD 05/23/16 14:00 05/26/16 13:50 Miscellaneous Information 1 Q3D TD 05/26/16 14:00 05/26/16 13:51 (Dilaudid Pf Inj) 0.2 mg Q4H PRN IV PUSH 05/24/16 16:30 05/27/16 15:59 (Dilaudid Pf Inj) 0.5 mg Q4H PRN IV PUSH 05/24/16 20:00 05/28/16 07:55 (Dilaudid) 2 mg Q4H PRN PO 05/24/16 17:30 (Dilaudid) 4 mg Q4H PRN PO 05/24/16 20:00 05/27/16 00:46 (Lasix) 20 mg DAILY PO 05/26/16 09:00 Hold 05/27/16 08:36 (Robaxin) 750 mg Q8HR PO 05/26/16 22:00 05/28/16 06:40 (Neurontin) 300 mg BID PO 05/27/16 09:00 05/28/16 07:54 (Cipro) 500 mg Q18H PO 05/28/16 09:38 05/28/16 10:21 Vital Signs / I&O Vital Signs Date Time Temp Pulse Resp B/P Pulse Ox O2 Delivery O2 Flow Rate FiO2 05/28/16 09:02 Room Air 21 05/28/16 04:00 98.4 92 18 58/ 98 05/28/16 00:31 98.6 73 18 118/70 97 05/27/16 20:37 97.7 71 18 107/74 96 05/27/16 20:30 Room Air 05/27/16 16:00 97.9 70 18 119/60 97 05/27/16 12:00 97.6 71 16 122/62 96 05/27/16 11:33 Room Air 21 I/O 05/27/16 05/27/16 05/27/16 05/28/16 1/4/17 1/4/17 07:00 15:00 23:00 07:00 15:00 23:00 Intake Total 0 ml 240 ml 720 ml Output Total 0 ml Balance 0 ml 240 ml 720 ml Intake Oral 0 ml 240 ml 720 ml Output Urine Total 0 ml # Voids 1 2 # Bowel Movements 0 0 0 Physical Exam Alert Morbidly obese Chest CTA CV S1S2 RRR Ext: edema improved Laboratory Laboratory Tests Test 05/28/16 07:00 Urine Color YELLOW Urine Turbidity CLEAR Urine pH 5.0 Urine Specific [place] 1.015 Urine Protein TRACE mg/dL Urine Glucose (UA) NEG mg/dL Urine Ketones NEG mg/dL Urine Occult Blood NEG Urine Nitrite NEG Urine Bilirubin NEG Urine Urobilinogen LESS THAN 2.0 MG/DL Urine Leukocyte Esterase SMALL Urine RBC 2 /hpf Urine WBC 4 /hpf Urine Squamous Epithelial 1 /hpf Cells Urine Bacteria RARE /hpf Urine Hyaline Casts 5 /lpf Urine Mucus FEW /lpf Urine Yeast (Budding) RARE Microscopic Urinalysis Comment CULT NOT INDICATED Urine Random Creatinine 117.4 MG/DL Urine Random Sodium 13 MEQ/L Assessment and Plan Problem List: (1) Cardiomyopathy Assessment and Plan: Continue carvedilol. No plans to restart ACEI or ARB dute to ARF after losartan started (2) CHF (congestive heart failure) Assessment and Plan: lungs clear. edema improving (3) Acute kidney failure, unspecified Assessment and Plan: I'm suspicios of bilateral renal artery stenosis. Renal hasn't seen yet. Diuretic/losartan remain D/C'd Zoltan Garcias MD May 28, 2016 10:36
[2016-05-28 12:00] VITALS: BP 132/60; PULSE 73; RESP 16; TEMP 97.5; O2SAT 96
--- NOTE | 2016-05-28 12:06 | HHI.NPPN ---
Subjective Complaints: Obesity Renal Failure: Acute Interval History We were reconsulted as her creatinine has increased. She is complaining of pain to lower extremities. Review of Systems General Constitutional: Fatigue Objective Data Data 05/27/16 05/28/16 19:00 07:00 Intake Total 240 ml 720 ml Balance 240 ml 720 ml Intake Oral 240 ml 720 ml # Voids 1 2 # Bowel Movements 0 0 Vital Signs Date Time Temp Pulse Resp B/P Pulse Ox O2 Delivery O2 Flow Rate FiO2 05/28/16 09:02 Room Air 21 05/28/16 04:00 98.4 92 18 58/ 98 05/28/16 00:31 98.6 73 18 118/70 97 05/27/16 20:37 97.7 71 18 107/74 96 05/27/16 20:30 Room Air 05/27/16 16:00 97.9 70 18 119/60 97 -: 05/27/16 0824 05/27/16 0824 Physical Exam General Appearance: Comfortable Eyes Eye Exam: Pupils Equal Throat Throat Exam: Oral Mucosa [place] & Moist Neck Neck Exam: Neck Supple Pulmonary Resp Exam: Clear Bilaterally, Breath Sounds Equal, No Distress Cardiology CV Exam: Regular, Normal Sinus Rhythm Gastrointestinal/Abdomen GI Exam: Soft, Non-Tender, Bowel Sounds Present Musculoskeletal MS Exam: Joints Intact, Good Strength Integumentary Skin Exam: Warm, Ulcer(s) Skin Remarks bilateral lower extremities wrapped, necrotic toes left foot, 2nd and 3rd digits Extremeties Extremities Exam: Moderate Edema, Pitting Edema ([place] legs covered with dressing.) Neurologic Neuro Exam: Alert, Awake, Oriented, Speech Clear, Moving All Extremities Psychiatric Psych Exam: Appropriate Responses Assessment/Plan Discussed Condition With: Patient Problem List: (1) Acute kidney failure, unspecified Plan: Renal function is worse, previous JAYLAN due to NSAID use potassium in normal range, no evidence of acidosis unknown urine output, she states no changes no evidence of fluid overload Lasix and losartan have been held Avoid NSAIDs and other potential nephrotoxic agents; may consider changing antibiotic therapy as 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 encouraged oral fluid intake labs in am (2) DM type 2, uncontrolled, with neuropathy Plan: continue insulin coverage. Maintain blood glucose between 140 and 180. Avoid Metformin. (3) Cellulitis and abscess of lower extremity Plan: ID following On cipro and clindamycin monitor clinically, continue wound care, pain control (4) PVD (peripheral vascular disease) Plan: with multiple ulcers on lower extremities management per medical team Yulisa Vega May 28, 2016 12:06
[2016-05-28 14:39] LABS: AUTOMATED NEUTROPHIL # 7.5 TH/MM3 (1.8-7.7); BASOPHIL # 0.1 TH/MM3 (0-0.2); BASOPHIL % 0.6 % (0.0-2.0); EOSINOPHIL # 0.3 TH/MM3 (0-0.4); EOSINOPHIL % 2.6 % (0.0-4.0); HEMATOCRIT 28.7 % (35.0-46.0); LYMPH % 14.5 % (9.0-44.0); LYMPHOCYTE # 1.5 TH/MM3 (1.0-4.8); MEAN CELL VOLUME 80.4 FL (80.0-100.0); MEAN CORPUSCULAR HEMOGLOBIN 26.5 PG (27.0-34.0); MEAN CORPUSCULAR HGB CONC 32.9 % (32.0-36.0); MONO % 8.6 % (0.0-8.0); NEUT % 73.7 % (16.0-70.0); PLATELET COUNT 402 TH/MM3 (150-450); RED BLOOD COUNT 3.56 MIL/MM3 (4.00-5.30); RED CELL DISTRIBUTION WIDTH 13.8 % (11.6-17.2); WHITE BLOOD COUNT 10.2 TH/MM3 (4.0-11.0)
[2016-05-28 14:46] LABS: HEMO FLAGS AUTO DIFF
[2016-05-28 15:02] LABS: BICARBONATE 24.3 MEQ/L (21.0-32.0); POTASSIUM 4.6 MEQ/L (3.5-5.1)
[2016-05-28 16:00] VITALS: BP 119/57; PULSE 73; RESP 18; TEMP 97.8; O2SAT 94
[2016-05-28 16:45] LABS: BANDS 14 % (0-6); EOSINOPHILS 2 % (0-4); METAMYELOCYTES 1 % (0-1); MYELOCYTES 1 % (0-0); PLATELET ESTIMATE SMEAR NORMAL (NORMAL); PLATELET MORPHOLOGY NORMAL (NORMAL); POLYS (SEG NEUTROPHILS) 62 % (16-70); SCAN/DIFF FINAL DIFF MANUAL; TOXIC GRANULATION 1+ (NORMAL); WBC DIFF SAMPLE 100
[2016-05-28 20:00] VITALS: BP 141/72; PULSE 76; RESP 18; TEMP 97.2; O2SAT 96
--- NOTE | 2016-05-28 20:00 | HHI.NPPN ---
Subjective Complaints: Obesity Renal Failure: Acute Review of Systems General Constitutional: Fatigue Objective Data Data 05/27/16 05/28/16 18:59 06:59 Intake Total 240 ml 720 ml Balance 240 ml 720 ml Intake Oral 240 ml 720 ml # Voids 1 2 # Bowel Movements 0 0 Vital Signs Date Time Temp Pulse Resp B/P Pulse Ox O2 Delivery O2 Flow Rate FiO2 05/28/16 16:00 97.8 73 18 119/57 94 05/28/16 12:00 97.5 73 16 132/60 96 05/28/16 09:02 Room Air 21 05/28/16 08:00 97.9 72 16 111/57 96 05/28/16 04:00 98.4 92 18 58/ 98 05/28/16 00:31 98.6 73 18 118/70 97 05/27/16 20:37 97.7 71 18 107/74 96 05/27/16 20:30 Room Air -: 05/28/16 1340 05/28/16 1340 Physical Exam General Appearance: Comfortable Eyes Eye Exam: Pupils Equal Throat Throat Exam: Oral Mucosa [place] & Moist Neck Neck Exam: Neck Supple Pulmonary Resp Exam: Clear Bilaterally, Breath Sounds Equal, No Distress Cardiology CV Exam: Regular, Normal Sinus Rhythm Gastrointestinal/Abdomen GI Exam: Soft, Non-Tender, Bowel Sounds Present Musculoskeletal MS Exam: Joints Intact, Good Strength Integumentary Skin Exam: Warm, Ulcer(s) Extremeties Extremities Exam: Moderate Edema, Pitting Edema ([place] legs covered with dressing.) Extremeties Remarks legs and feet are wrapped Neurologic Neuro Exam: Alert, Awake, Oriented, Speech Clear, Moving All Extremities Psychiatric Psych Exam: Appropriate Responses Assessment/Plan Discussed Condition With: Patient Problem List: (1) Acute kidney failure, unspecified Plan: Renal function is worse, previous JAYLAN due to NSAID use potassium in normal range, no evidence of acidosis unknown urine output, she states no changes no evidence of fluid overload Lasix and losartan have been held Avoid NSAIDs and other potential nephrotoxic agents; may consider changing antibiotic therapy as 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 encouraged oral fluid intake labs in am (2) DM type 2, uncontrolled, with neuropathy Plan: continue insulin coverage. Maintain blood glucose between 140 and 180. Avoid Metformin. (3) Cellulitis and abscess of lower extremity Plan: ID following On cipro and clindamycin monitor clinically, continue wound care, pain control (4) PVD (peripheral vascular disease) Plan: with multiple ulcers on lower extremities management per medical team Plan patient was seen and examined. Renal function had previously improved. Creatinine increased on the 2nd, coinciding with initiation of Losartan 50 mg PO BID on the first along with Lasix. It is certainly possible that GFR declined due to reinitiation of ARB therapy aggressively. Renal artery stenosis is certainly possible given extensive PAD that she has. Other possible etiology is allergic interstitial nephritis. Agree with stopping ARB. Continue supportive care. Avoid nephrotoxic agents. We will continue to monitor. No immediate need for dialysis. Beny Graves MD May 28, 2016 20:00
--- NOTE | 2016-05-28 23:14 | HHI.PR ---
Subjective Remarks pt seen around noon, sitting up on edge of bed. gives several reasons why she hasn't elevated her legs today. reports pain under control. Objective Vital Signs Date Time Temp Pulse Resp B/P Pulse Ox O2 Delivery O2 Flow Rate FiO2 05/28/16 20:00 97.2 76 18 141/72 96 05/28/16 16:00 97.8 73 18 119/57 94 05/28/16 12:00 97.5 73 16 132/60 96 05/28/16 09:02 Room Air 21 05/28/16 08:00 97.9 72 16 111/57 96 05/28/16 04:00 98.4 92 18 58/ 98 05/28/16 00:31 98.6 73 18 118/70 97 I/O 05/27/16 05/27/16 05/27/16 05/28/16 05/28/16 05/28/16 07:00 15:00 23:00 07:00 15:00 23:00 Intake Total 0 ml 240 ml 720 ml 480 ml Output Total 0 ml 700 ml Balance 0 ml 240 ml 720 ml -220 ml Intake Oral 0 ml 240 ml 720 ml 480 ml Output Urine Total 0 ml 700 ml # Voids 1 2 # Bowel Movements 0 0 0 Result Diagram: 05/28/16 1340 05/28/16 1340 Objective Remarks GENERAL: Patient awake,sitting up on edge of bed. alert, oriented x3.. SKIN: Warm and dry. HEAD: Normocephalic. EYES: No scleral icterus. No injection or drainage. NECK: Supple, trachea midline. No JVD or lymphadenopathy. CARDIOVASCULAR: Regular rate and rhythm without murmurs, gallops, or rubs. RESPIRATORY: Breath sounds equal bilaterally. No accessory muscle use. GASTROINTESTINAL: Abdomen soft, non-tender, nondistended. MUSCULOSKELETAL: No cyanosis. bilateral lower extremity venous stasis wounds are dressed. Edema in feet appears to have worsened slightly since yesterday. Capillary refill adequate. wounds dressed. edema BL feet worse. -patient with inability to lift right shoulder. No tenderness to palpation of the shoulder joint. 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 No CVA tenderness. A/P Assessment and Plan ===== 05/28/16 Bilateral lower extremity edema worse. patient needs to elevate legs, but will not. encouraged to do so. JAYLAN improving. pre-renal from ARB probably. holdingARB, lasix. pain controled. edema worse Right shoulder pain. rotator cuff. xray neg. //Bilateral nonhealing venous stasis ulcers/ Bilateral lower extremity cellulitis //Failure of outpatient treatment. Vascular surgery evaluated. Not able to do contrast study secondary to //acute kidney injury on admission. Status post debridement by Dr. Colon on 05/15. Pain improved 05/21. -Palliative care consult appreciated. - Continue pain control with a bowel regimen. Adjusted by palliative care 05/22. - Continue antibiotics as per infectious disease. - wound care per podiatry. - 05/23. Discussed with podiatry. Main problem is bilateral lower extremity edema. BNP is not markedly elevated, however patient does have ejection fraction measured 35% earlier this year. Will order new echocardiogram. It would be helpful to order diuretics, however renal function is very poor at the moment. Continue to monitor. 05/24-Echocardiogram with continued ejection fraction 30%. Consult cardiology. Start Lasix. 05/25- cardiology consult appreciated. Start Lasix and ARB. 05/27 Holding Lasix and ARB due to acute kidney injury. //Pain control - Continue fentanyl patch as per palliative care. - 05/24. Someone on increased dose of narcotics. Will decrease Dilaudid by mouth. Continue monitor closely. Appreciate palliative care assistance. -mproved alertness on decreased pain medication, however patient reports worsening pain. We cannot increase narcotic pain medication anymore right now. = Pain continues stable. //Acute kidney injury. Creatinine 4.5 on admission. Most recent baseline 1.15 on April 24. Likely secondary to NSAIDs in conjunction with losartan. Patient says she was taking "handfuls" of NSAIDs. Appreciate nephrology consult. Creatinine has stabilized. - Continue to hold losartan, Lasix. Avoid nephrotoxins. - follow up with nephrology. - Kidney function continues stable. follow BMP. 05/26-Increase in creatinine 1.35 today. Also with hyponatremia. Possibly secondary to losartan. We'll recheck. Hold losartan. 05/27. Creatinine up to 2.68. Hold both losartan and Lasix. Urinalysis and urine electrolytes pending. Nephrology reconsult. //Cardiomyopathy Ejection fraction 30%. Has lower extremity edema. - Continue Coreg - Hold Lasix due to kidney injury. - 05/23. Previous ejection fraction of 30-35% was following acute episode of flash pulmonary edema. Repeat echocardiogram ordered and pending. Consider cardiology consultation for assistance with management. 05/24 - Kidney function improved. Start Lasix -/ -slight bump in creatinine on losartan. We'll hold losartan for now. Continue Lasix. 05/27. Hold both losartan and Lasix do to acute kidney injury //Diabetes -Is on long-acting insulin at home. - Patient is on glargine 20 units twice daily at home. - Continue Levemir 20 units twice daily. - Glucose level acceptable. Continue monitor. //Hyponatremia. Resolved. 128 on admission. 129 currently. Overall stable. Asymptomatic. - follow BMP. //Right shoulder pain.. Appears to have improved. Exam unremarkable. Likely muscle strain. - continue pain control. - physical therapy. - 05/27. Not improving significantly. X-ray as per patient request. Prophylaxis. Subcutaneous heparin. Discharge Planning -pain improved. Palliative care assistance appreciated. -edema control and compliance with elevation will continue to require constant reinforcement after discharge. -holding discharge secondary to acute kidney injury. -can discharge to SNF when acute kidney injury resolved Jeffrey Chappell MD May 28, 2016 23:14
[2016-05-29] VITALS: BP 133/61; PULSE 68; RESP 18; TEMP 98.1; O2SAT 95
[2016-05-29] MEDS: CIPROFLOXACIN 500 MG TAB PO SCH ×2 (00:59→04:58)
[2016-05-29] MEDS: CLINDAMYCIN 150 MG CAP PO SCH ×4 (00:59→17:01)
[2016-05-29] MEDS: HYDROmorphone HCL PF 1 MG/ML VIAL IV PUSH PRN ×4 (00:59→21:25)
[2016-05-29 04:00] VITALS: BP 130/60; PULSE 72; RESP 18; TEMP 97.7; O2SAT 97
[2016-05-29] MEDS: LEVOTHYROXINE SODIUM 100 MCG TAB PO SCH (04:58)
[2016-05-29] MEDS: METHOCARBAMOL 500 MG TAB PO SCH ×3 (04:59→21:21)
[2016-05-29] MEDS: LEVOTHYROXINE SODIUM 75 MCG TAB PO SCH (05:00)
[2016-05-29] MEDS: INSULIN ASPART SUPPLEMENTAL SCALE SQ SCH ×4 (06:12→21:00)
[2016-05-29 08:00] VITALS: BP 117/73; PULSE 75; RESP 18; TEMP 98.1; O2SAT 96
[2016-05-29] MEDS: LIOTHYRONINE SODIUM 5 MCG TAB PO SCH (08:28)
[2016-05-29] MEDS: SILVER SULFADIAZINE 1% CR 400 GM JAR TOPICAL SCH (08:29)
[2016-05-29] MEDS: INSULIN DETEMIR 100 UNITS/ML VIAL SQ SCH ×2 (08:29→21:24)
[2016-05-29] MEDS: DOCUSATE SODIUM 100 MG CAP PO SCH ×2 (08:29→21:00)
[2016-05-29] MEDS: HEPARIN SODIUM - SQ 10,000 UNITS/ML VIAL SQ SCH ×2 (08:29→21:24)
[2016-05-29] MEDS: GABAPENTIN 300 MG CAP PO SCH ×2 (08:29→21:22)
[2016-05-29] MEDS: CARVEDILOL 12.5 MG TAB PO SCH ×2 (08:29→21:20)
[2016-05-29] MEDS: SODIUM CHLORIDE 0.9% FLUSH 5 ML FLUSH FLUSH SCH ×2 (08:29→21:23)
[2016-05-29] MEDS: LACTOBACILLUS ACIDOPHILUS TAB PO SCH ×3 (08:29→17:01)
[2016-05-29] MEDS: buPROPion HCL 150 MG SUSTAINED RELEASE TAB PO SCH ×2 (08:29→21:22)
[2016-05-29] MEDS: DULoxetine HCl DR 30 MG CAP PO SCH ×2 (08:34→21:22)
[2016-05-29 08:37] LABS: AUTOMATED NEUTROPHIL # 7.3 TH/MM3 (1.8-7.7); BASOPHIL # 0.1 TH/MM3 (0-0.2); BASOPHIL % 0.5 % (0.0-2.0); EOSINOPHIL # 0.2 TH/MM3 (0-0.4); EOSINOPHIL % 2.1 % (0.0-4.0); HEMATOCRIT 27.2 % (35.0-46.0); LYMPH % 12.7 % (9.0-44.0); LYMPHOCYTE # 1.2 TH/MM3 (1.0-4.8); MEAN CELL VOLUME 79.7 FL (80.0-100.0); MEAN CORPUSCULAR HEMOGLOBIN 26.5 PG (27.0-34.0); MEAN CORPUSCULAR HGB CONC 33.2 % (32.0-36.0); MONO % 9.7 % (0.0-8.0); PLATELET COUNT 419 TH/MM3 (150-450); RED BLOOD COUNT 3.41 MIL/MM3 (4.00-5.30); RED CELL DISTRIBUTION WIDTH 14.1 % (11.6-17.2); WHITE BLOOD COUNT 9.8 TH/MM3 (4.0-11.0)
[2016-05-29 08:39] LABS: HEMO FLAGS AUTO DIFF
[2016-05-29 09:14] LABS: BICARBONATE 25.4 MEQ/L (21.0-32.0); POTASSIUM 4.6 MEQ/L (3.5-5.1)
--- NOTE | 2016-05-29 09:15 | PD.CARD.PN ---
Subjective Subjective Remarks No CP or SOB Objective Medications Current Medications Medications (Trade) Dose Ordered Sig/Virgilio Route Start Time Stop Time Status Last Admin (NS Flush) 2 ml UNSCH PRN FLUSH 05/13/16 18:45 05/18/16 02:50 (NS Flush) 2 ml BID FLUSH 05/13/16 21:00 05/29/16 08:29 (Zofran Inj) 4 mg Q6H PRN IVP 05/13/16 18:45 05/15/16 08:07 (Dulcolax Supp) 10 mg DAILY PRN FL 05/13/16 18:45 (Milk Of Magnesia Liq) 30 ml Q12H PRN PO 05/13/16 18:45 (Senokot) 17.2 mg Q12H PRN PO 05/13/16 18:45 (Heparin Inj) 5,000 units Q12H SQ 05/13/16 20:00 05/29/16 08:29 (Narcan Inj) 0.4 mg UNSCH PRN IV 05/13/16 18:45 (Wellbutrin Sr) 150 mg Q12HR PO 05/13/16 21:00 05/29/16 08:29 (Coreg) 25 mg BID PO 05/13/16 21:00 05/29/16 08:29 (D50w (Vial) Inj) 25 ml UNSCH PRN IV PUSH 05/13/16 19:00 (Glucagon Inj) 1 mg UNSCH PRN OTHER 05/13/16 19:00 (Synthroid) 75 mcg DAILY@06 PO 05/14/16 06:00 05/29/16 05:00 (Synthroid) 100 mcg DAILY@06 PO 05/14/16 06:00 05/29/16 04:58 (Cytomel) 5 mcg DAILY PO 05/14/16 09:00 05/29/16 08:28 (Lactinex) 1 tab TID PO 05/14/16 09:00 05/29/16 08:[address]) 30 mg BID PO 05/14/16 21:00 05/29/16 08:34 (Silvadene 1% Cream (400 Gm)) 1 applic DAILY TOPICAL 05/14/16 18:00 05/29/16 08:29 (Colace) 100 mg BID PO 05/17/16 10:00 05/29/16 08:29 (Cleocin) 300 mg Q6HR PO 05/17/16 12:00 05/29/16 04:58 (Levemir Inj) 20 units Q12HR SQ 05/20/16 21:00 05/29/16 08:29 (Duragesic 50 Mcg Patch.72 Hr) 1 patch Q3D TD 05/23/16 14:00 05/26/16 13:50 Miscellaneous Information 1 Q3D TD 05/26/16 14:00 05/26/16 13:51 (Dilaudid Pf Inj) 0.2 mg Q4H PRN IV PUSH 05/24/16 16:30 05/29/16 00:59 (Dilaudid Pf Inj) 0.5 mg Q4H PRN IV PUSH 05/24/16 20:00 05/29/16 08:44 (Dilaudid) 2 mg Q4H PRN PO 05/24/16 17:30 (Dilaudid) 4 mg Q4H PRN PO 05/24/16 20:00 05/27/16 00:46 (Lasix) 20 mg DAILY PO 05/26/16 09:00 Hold 05/27/16 08:36 (Robaxin) 750 mg Q8HR PO 05/26/16 22:00 05/29/16 04:59 (Neurontin) 300 mg BID PO 05/27/16 09:00 05/29/16 08:29 (Cipro) 500 mg Q18H PO 05/28/16 09:38 05/29/16 04:58 Vital Signs / I&O Vital Signs Date Time Temp Pulse Resp B/P Pulse Ox O2 Delivery O2 Flow Rate FiO2 05/29/16 08:00 98.1 75 18 117/73 96 05/29/16 04:00 97.7 72 18 130/60 97 05/29/16 00:00 98.1 68 18 133/61 95 05/28/16 20:00 97.2 76 18 141/72 96 05/28/16 20:00 Room Air 21 05/28/16 16:00 97.8 73 18 119/57 94 05/28/16 12:00 97.5 73 16 132/60 96 I/O 05/28/16 05/28/16 05/28/16 05/29/16 05/29/1605/29/17 07:00 15:00 23:00 07:00 15:00 23:00 Intake Total 480 ml 240 ml 480 ml Output Total 700 ml Balance -220 ml 240 ml 480 ml Intake Oral 480 ml 240 ml 480 ml Output Urine Total 700 ml # Voids 1 2 # Bowel Movements 1 0 Physical Exam Alert Morbidly obese Chest CTA CV S1S2 RRR Ext: LE edema/ JOYCE wrappded Laboratory Laboratory Tests Test 05/28/16 05/29/16 13:40 07:52 White Blood Count 10.2 TH/MM3 9.8 TH/MM3 Red Blood Count 3.56 MIL/MM3 3.41 MIL/MM3 Hemoglobin 9.4 GM/DL 9.0 GM/DL Hematocrit 28.7 % 27.2 % Mean Corpuscular Volume 80.4 FL 79.7 FL Mean Corpuscular Hemoglobin 26.5 PG 26.5 PG Mean Corpuscular Hemoglobin 32.9 % 33.2 % Concent Red Cell Distribution Width 13.8 % 14.1 % Platelet Count 402 TH/MM3 419 TH/MM3 Mean Platelet Volume 7.2 FL 7.0 FL Neutrophils (%) (Auto) 73.7 % 75.0 % Lymphocytes (%) (Auto) 14.5 % 12.7 % Monocytes (%) (Auto) 8.6 % 9.7 % Eosinophils (%) (Auto) 2.6 % 2.1 % Basophils (%) (Auto) 0.6 % 0.5 % Neutrophils # (Auto) 7.5 TH/MM3 7.3 TH/MM3 Lymphocytes # (Auto) 1.5 TH/MM3 1.2 TH/MM3 Monocytes # (Auto) 0.9 TH/MM3 1.0 TH/MM3 Eosinophils # (Auto) 0.3 TH/MM3 0.2 TH/MM3 Basophils # (Auto) 0.1 TH/MM3 0.1 TH/MM3 CBC Comment AUTO DIFF AUTO DIFF Differential Total Cells 100 Counted Neutrophils % (Manual) 62 % Band Neutrophils % 14 % Lymphocytes % 14 % Monocytes % 6 % Eosinophils % 2 % Neutrophils # (Manual) 8.0 TH/MM3 Metamyelocytes 1 % Myelocytes 1 % Differential Comment FINAL DIFF MANUAL Toxic Granulation 1+ Platelet Estimate NORMAL Platelet Morphology Comment NORMAL Red Cell Morphology Comment NORMAL Sodium Level 129 MEQ/L Potassium Level 4.6 MEQ/L Chloride Level 95 MEQ/L Carbon Dioxide Level 24.3 MEQ/L Anion Gap 10 MEQ/L Blood Urea Nitrogen 63 MG/DL Creatinine 1.97 MG/DL Estimat Glomerular Filtration 26 ML/MIN Rate Random Glucose 67 MG/DL Calcium Level 8.7 MG/DL Assessment and Plan Problem List: (1) Cardiomyopathy (2) CHF (congestive heart failure) Assessment and Plan: fairly stable (3) Acute kidney failure, unspecified Assessment and Plan: Off losartan. Possibly use hydralaxine/ isorbide instead Zoltan Garcias MD May 29, 2016 09:15
[2016-05-29 10:08] LABS: EOSINOPHILS 2 % (0-4); MYELOCYTES 2 % (0-0); NEUTROPHIL # MANUAL DIFF 7.9 TH/MM3 (1.8-7.7); PLATELET ESTIMATE SMEAR NORMAL (NORMAL); PLATELET MORPHOLOGY NORMAL (NORMAL); POLYS (SEG NEUTROPHILS) 79 % (16-70); SCAN/DIFF FINAL DIFF MANUAL; WBC DIFF SAMPLE 100
--- NOTE | 2016-05-29 11:52 | HHI.NPPN ---
Subjective Complaints: Obesity Renal Failure: Acute Interval History Renal function is better. She is developing dependent edema. (Yulisa Vega) Review of Systems General Constitutional: Fatigue (Yulisa Vega) Cardiovascular Cardiac: Edema (Yulisa Vega) Musculoskeletal MS: Pain/Stiffness (Yulisa Vega) Skin Skin: Skin Rash, Ulcers (Yulisa Vega) Objective Data Data 05/28/16 05/29/16 19:00 07:00 Intake Total 480 ml 720 ml Output Total 700 ml Balance -220 ml 720 ml Intake Oral 480 ml 720 ml Output Urine Total 700 ml # Voids 3 # Bowel Movements 1 Vital Signs Date Time Temp Pulse Resp B/P Pulse Ox O2 Delivery O2 Flow Rate FiO2 05/29/16 08:00 98.1 75 18 117/73 96 05/29/16 04:00 97.7 72 18 130/60 97 05/29/16 00:00 98.1 68 18 133/61 95 05/28/16 20:00 97.2 76 18 141/72 96 05/28/16 20:00 Room Air 21 05/28/16 16:00 97.8 73 18 119/57 94 05/28/16 12:00 97.5 73 16 132/60 96 (Yulisa Vega) -: 05/29/16 0752 05/29/16 0752 Imaging Last 72 hours Impressions Shoulder X-Ray 05/27/16 0000 Signed Impressions: Service Date/Time: Friday, May 27, 2016 20:33 - CONCLUSION: Unremarkable limited examination of the right shoulder. Alfredo Etienne MD (Yulisa Vega) Physical Exam General Appearance: Well Developed, Well Nourished, Comfortable (Yulisa Vega) Eyes Eye Exam: Pupils Equal (Yulisa Vega) Throat Throat Exam: Oral Mucosa [place] & Moist (Yulisa Vega) Neck Neck Exam: Neck Supple (Yulisa Vega) Pulmonary Resp Exam: Clear Bilaterally, Breath Sounds Equal, No Distress (Yulisa Vega) Cardiology CV Exam: Regular, Normal Sinus Rhythm (Yulisa Vega) Gastrointestinal/Abdomen GI Exam: Soft, Non-Tender, Bowel Sounds Present (Yulisa Vega) Musculoskeletal MS Exam: Joints Intact, Good Strength (Yulisa Vega) Integumentary Skin Exam: Warm, Ulcer(s) Skin Remarks bilateral lower extremities wrapped, necrotic toes left foot, 2nd and 3rd digits dependent rubor (Yulisa Vega) Extremeties Extremities Exam: Moderate Edema, Pitting Edema ([place] legs covered with dressing.) (Yulisa Vega) Neurologic Neuro Exam: Alert, Awake, Oriented, Speech Clear, Moving All Extremities ( Yulisa Vega) Psychiatric Psych Exam: Appropriate Responses (Yulisa Vega) Assessment/Plan Discussed Condition With: Patient Problem List: (1) Acute kidney failure, unspecified Plan: Renal function has improved JAYLAN that developed over past few days likely due to high dose ARB potassium in normal range, no evidence of acidosis adequate urine output edema returning, will resume low dose lasix, elevation encouraged Avoid NSAIDs and other potential nephrotoxic agents Monitor urine output and renal function daily. encouraged oral fluid intake , no IVF required labs in am (2) DM type 2, uncontrolled, with neuropathy Plan: continue insulin coverage. Maintain blood glucose between 140 and 180. Avoid Metformin. (3) Cellulitis and abscess of lower extremity Plan: ID following On cipro and clindamycin monitor clinically, continue wound care, pain control (4) PVD (peripheral vascular disease) Plan: with multiple ulcers on lower extremities management per medical team (Yulisa Vega) Plan patient was seen and examined. Renal function has improved. JAYLAN was likely due to high dose of Losartan. Lasix can be resumed. (Beny Graves MD) Yulisa Vega May 29, 2016 11:52 Beny Graves MD May 29, 2016 16:33
[2016-05-29 12:00] VITALS: BP 123/96; PULSE 74; RESP 18; TEMP 98; O2SAT 96
[2016-05-29] MEDS: fentaNYL 50 MCG/HR PATCH TD SCH (12:59)
[2016-05-29] MEDS: REMOVE OLD PATCH TD SCH (12:59)
--- NOTE | 2016-05-29 15:21 | HHI.PR ---
Subjective Remarks Complaining of bilateral lower leg pain and swelling. No complaint of chest pain or shortness of breath. At this point she is awaiting for her son to come in town tomorrow to discuss her discharge plans. She is unsure of the choice of her correction facility that she wants to go to but has now consented to going to a correction facility. Objective Vitals Vital Signs Date Time Temp Pulse Resp B/P Pulse Ox O2 Delivery O2 Flow Rate FiO2 05/29/16 08:00 98.1 75 18 117/73 96 05/29/16 04:00 97.7 72 18 130/60 97 05/29/16 00:00 98.1 68 18 133/61 95 05/28/16 20:00 97.2 76 18 141/72 96 05/28/16 20:00 Room Air 21 05/28/16 16:00 97.8 73 18 119/57 94 I/O 05/28/16 05/28/16 05/28/16 05/29/16 05/29/16 05/29/16 07:00 15:00 23:00 07:00 15:00 23:00 Intake Total 480 ml 240 ml 480 ml Output Total 700 ml Balance -220 ml 240 ml 480 ml Intake Oral 480 ml 240 ml 480 ml Output Urine Total 700 ml # Voids 1 2 # Bowel Movements 1 0 Result Diagram: 05/29/16 0752 05/29/16 0752 Objective Remarks GENERAL: This is a well-nourished, well-developed patient, in no apparent distress. CARDIOVASCULAR: Regular rate and rhythm RESPIRATORY: Clear to auscultation. Breath sounds equal bilaterally. No wheezes , rales, or rhonchi. GASTROINTESTINAL: Abdomen soft, non-tender, nondistended. Normal active bowel sounds MUSCULOSKELETAL: Extremities without clubbing, cyanosis, 2+ edema bilateral [place] bandage wrap lower extremity NEURO: Alert & Oriented x4 to person, place, time, situation. Moves all ext x4 A/P Problem List: (1) Cellulitis and abscess of lower extremity ICD Code: L02.419 Status: Acute (2) Acute kidney failure, unspecified ICD Code: N17.9 Status: Acute Assessment and Plan Bilateral nonhealing venous stasis ulcers/ Bilateral lower extremity cellulitis Failure of outpatient treatment. Vascular surgery evaluated. Not able to do contrast study secondary to acute kidney injury on admission. Follow-up as an outpatient and no intervention planned per vascular surgery. Status post debridement by Dr. Colon on 05/15. Pain improved 05/21. -Palliative care consult appreciated. Referral made to wound care to consider hyperbaric treatment per patient's request upon discharge. - Continue pain control with a bowel regimen. Adjusted by palliative care 05/22. - Continue antibiotics as per infectious disease. - wound care per podiatry. - 05/23. Discussed with podiatry by previous hospitalist. Main problem is bilateral lower extremity edema. BNP is not markedly elevated, however patient does have ejection fraction measured 35% earlier this year. It would be helpful to order diuretics, however renal function is very poor at the moment. Continue to monitor. 05/24-Echocardiogram with continued ejection fraction 30%. Consult cardiology, Dr. Garcias currently following and recommended consideration SSRI and hydralazine as patient cannot tolerate Lasix or ARB due to acute kidney injury. Acute kidney injurymuch better after holding diuretics and ARB Pain control - Continue fentanyl patch as per palliative care. Patient remained stable Acute kidney injury. Much improvedstopped NSAIDs. Appreciate nephrology consultation. . Creatinine has stabilized. - Continue to hold losartan, Lasix has been restarted. Avoid nephrotoxins. - follow up with nephrology. - Cardiomyopathy Ejection fraction 30%. Has lower extremity edema. - Continue Coreg, Dr. Garcias recommended isosorbide and hydralazine today Diabetes mellitus, insulin-dependent continue to monitor with sliding scale insulin coverage -Is on long-acting insulin at home. - Patient is on glargine 20 units twice daily at home. - Continue Levemir 20 units twice daily. - Glucose level acceptable. Continue monitor. //Hyponatremia. Resolved. 128 on admission. 130 currently. Overall stable. Asymptomatic. - follow BMP. //Right shoulder pain.. Appears to have improved. Exam unremarkable. Likely muscle strain. - continue pain control. - physical therapy. VTE Prophylaxis. Subcutaneous heparin. Discharge Planning Discharge planning for morning to correction facility. Patient encouraged to choose and take a correction facility after discussion with family tomorrow morning. Estefanía Salguero MD May 29, 2016 15:21
[2016-05-29 16:00] VITALS: BP 120/56; PULSE 68; RESP 18; TEMP 97.6; O2SAT 96
[2016-05-29] MEDS: ISOSORBIDE DINITRATE 5 MG TAB PO SCH (17:00)
[2016-05-29 20:00] VITALS: BP 144/65; PULSE 91; RESP 18; TEMP 98.6; O2SAT 96
[2016-05-30] VITALS: BP 136/63; PULSE 76; RESP 18; TEMP 98.2; O2SAT 95
[2016-05-30] MEDS: CLINDAMYCIN 150 MG CAP PO SCH ×4 (00:16→18:29)
[2016-05-30 04:00] VITALS: BP 135/69; PULSE 68; RESP 18; TEMP 97.4; O2SAT 98
[2016-05-30] MEDS: METHOCARBAMOL 500 MG TAB PO SCH ×3 (04:48→21:41)
[2016-05-30] MEDS: LEVOTHYROXINE SODIUM 100 MCG TAB PO SCH (04:50)
[2016-05-30] MEDS: LEVOTHYROXINE SODIUM 75 MCG TAB PO SCH (04:51)
[2016-05-30] MEDS: HYDROmorphone HCL PF 1 MG/ML VIAL IV PUSH PRN ×4 (04:51→21:44)
[2016-05-30] MEDS: INSULIN ASPART SUPPLEMENTAL SCALE SQ SCH ×4 (04:58→21:00)
[2016-05-30 07:15] LABS: BICARBONATE 25.3 MEQ/L (21.0-32.0); POTASSIUM 4.5 MEQ/L (3.5-5.1)
[2016-05-30 08:09] VITALS: BP 113/56; PULSE 67; RESP 20; TEMP 98.1; O2SAT 95
[2016-05-30] MEDS: CARVEDILOL 12.5 MG TAB PO SCH ×2 (09:04→21:39)
[2016-05-30] MEDS: ISOSORBIDE DINITRATE 5 MG TAB PO SCH ×3 (09:04→18:29)
[2016-05-30] MEDS: FUROSEMIDE 20 MG TAB PO SCH (09:04)
[2016-05-30] MEDS: DULoxetine HCl DR 30 MG CAP PO SCH ×2 (09:04→21:41)
[2016-05-30] MEDS: buPROPion HCL 150 MG SUSTAINED RELEASE TAB PO SCH ×2 (09:04→21:41)
[2016-05-30] MEDS: LIOTHYRONINE SODIUM 5 MCG TAB PO SCH (09:04)
[2016-05-30] MEDS: GABAPENTIN 300 MG CAP PO SCH ×2 (09:04→21:40)
[2016-05-30] MEDS: INSULIN DETEMIR 100 UNITS/ML VIAL SQ SCH ×2 (09:05→21:42)
[2016-05-30] MEDS: HEPARIN SODIUM - SQ 10,000 UNITS/ML VIAL SQ SCH ×2 (09:05→21:40)
[2016-05-30] MEDS: SODIUM CHLORIDE 0.9% FLUSH 5 ML FLUSH FLUSH SCH ×2 (09:05→21:43)
[2016-05-30] MEDS: SILVER SULFADIAZINE 1% CR 400 GM JAR TOPICAL SCH (09:06)
[2016-05-30] MEDS: DOCUSATE SODIUM 100 MG CAP PO SCH ×2 (09:12→21:00)
[2016-05-30] MEDS: LACTOBACILLUS ACIDOPHILUS TAB PO SCH ×3 (09:12→18:30)
--- NOTE | 2016-05-30 11:34 | HHI.NPPN ---
Subjective Complaints: Obesity Renal Failure: Acute History of Present Illness Renal function is better. Pain tolerable. Lower extremities with dependent rubor , wrapped, edematous. (Yulisa Vega) Review of Systems General Constitutional: Fatigue (Yulisa Vega) Cardiovascular Cardiac: Edema (Yulisa Vega) Musculoskeletal MS: Pain/Stiffness (Yulisa Vega) Skin Skin: Skin Rash, Ulcers (Yulisa Vega) Objective Data Data 05/29/16 05/30/16 19:00 07:00 Intake Total 480 ml 244 ml Balance 480 ml 244 ml Intake Oral 480 ml 240 ml IV Total 0 ml 4 ml # Voids 4 2 # Bowel Movements 1 Vital Signs Date Time Temp Pulse Resp B/P Pulse Ox O2 Delivery O2 Flow Rate FiO2 05/30/16 08:09 98.1 67 20 113/56 95 05/30/16 04:00 97.4 68 18 135/69 98 05/30/16 00:00 98.2 76 18 136/63 95 05/29/16 21:05 Room Air 05/29/16 20:00 98.6 91 18 144/65 96 05/29/16 16:00 97.6 68 18 120/56 96 05/29/16 12:00 98.0 74 18 123/96 96 (Yulisa Vega) -: 05/29/16 0752 05/30/16 0558 Physical Exam General Appearance: Well Developed, Well Nourished, No Acute Distress, Comfortable, Obese (Yulisa Vega) Eyes Eye Exam: Pupils Equal (Yulisa Vega) Throat Throat Exam: Oral Mucosa [place] & Moist (Yulisa Vega) Neck Neck Exam: Neck Supple (Yulisa Vega) Pulmonary Resp Exam: Clear Bilaterally, Breath Sounds Equal, No Distress (Yulisa Vega) Cardiology CV Exam: Regular, Normal Sinus Rhythm (Yulisa Vega) Gastrointestinal/Abdomen GI Exam: Soft, Non-Tender, Bowel Sounds Present (Yulisa Vega) Musculoskeletal MS Exam: Joints Intact, Good Strength (Yulisa Vega) Integumentary Skin Exam: Warm, Ulcer(s) Skin Remarks bilateral lower extremities wrapped, necrotic toes left foot, 2nd and 3rd digits dependent rubor (Yulisa Vega) Extremeties Extremities Exam: Moderate Edema, Pitting Edema ([place] legs covered with dressing.) (Yulisa Vega) Neurologic Neuro Exam: Alert, Awake, Oriented, Speech Clear, Moving All Extremities ( Yulisa Vega) Psychiatric Psych Exam: Appropriate Responses (Yulisa Vega) Assessment/Plan Discussed Condition With: Patient Assessment Summary: JAYLAN/Acute Renal Failure, Fluid/Volume Overload, Hypertension, Diabetes Mellitus Electrolyte Assessment: Hyponatremia Problem List: (1) Acute kidney failure, unspecified Plan: Renal function improved, non oliguric JAYLAN that developed over past few days likely due to Losartan, which has been stopped electrolytes unremarkable adequate urine output continue low dose lasix, elevation encouraged Avoid NSAIDs and other potential nephrotoxic agents Monitor urine output and renal function encouraged oral fluid intake , no IVF required (2) DM type 2, uncontrolled, with neuropathy Plan: monitor glucose continue insulin coverage. Maintain blood glucose between 140 and 180. Avoid Metformin. (3) Cellulitis and abscess of lower extremity Plan: ID following continues on cipro and clindamycin monitor clinically, continue wound care, pain control (4) PVD (peripheral vascular disease) Plan: with multiple ulcers on lower extremities management per medical team Plan We will sign off at this time, please reconsult us if necessary (Yulisa Vega) Plan patient was seen and examined. Renal function has improved. We will sign off at this time. (Beny Graves MD) Yulisa Vega May 30, 2016 11:34 Beny Graves MD May 30, 2016 14:36
[2016-05-30 12:35] VITALS: BP 115/56; PULSE 66; RESP 18; TEMP 97.9; O2SAT 98
[2016-05-30 16:07] VITALS: BP 142/63; PULSE 67; RESP 18; TEMP 98.1; O2SAT 95
--- NOTE | 2016-05-30 16:35 | HHI.PR ---
Subjective Remarks Doing okay. Wants to rehabilitation. Wants a referral to outpatient wound care clinic for consideration of future hyperbaric treatment. Objective Vitals Vital Signs Date Time Temp Pulse Resp B/P Pulse Ox O2 Delivery O2 Flow Rate FiO2 05/30/16 12:35 97.9 66 18 115/56 98 05/30/16 10:28 Room Air 05/30/16 08:09 98.1 67 20 113/56 95 05/30/16 04:00 97.4 68 18 135/69 98 05/30/16 00:00 98.2 76 18 136/63 95 05/29/16 21:05 Room Air 05/29/16 20:00 98.6 91 18 144/65 96 I/O 05/29/16 05/29/16 05/29/16 05/30/16 05/30/16 05/30/16 07:00 15:00 23:00 07:00 15:00 23:00 Intake Total 480 ml 480 ml 2 ml 242 ml Balance 480 ml 480 ml 2 ml 242 ml Intake Oral 480 ml 480 ml 240 ml IV Total 0 ml 2 ml 2 ml # Voids 2 4 2 # Bowel Movements 0 1 Result Diagram: 05/29/16 0752 05/30/16 0558 Objective Remarks GENERAL: This is a well-nourished, well-developed patient, in no apparent distress. CARDIOVASCULAR: Regular rate and rhythm RESPIRATORY: Clear to auscultation. Breath sounds equal bilaterally. No wheezes , rales, or rhonchi. GASTROINTESTINAL: Abdomen soft, non-tender, nondistended. Normal active bowel sounds MUSCULOSKELETAL: Extremities without clubbing, cyanosis, 2+ edema bilateral [place] bandage wrap lower extremity NEURO: Alert & Oriented x4 to person, place, time, situation. Moves all ext x4 A/P Problem List: (1) Cellulitis and abscess of lower extremity ICD Code: L02.419 Status: Acute (2) Acute kidney failure, unspecified ICD Code: N17.9 Status: Acute Assessment and Plan Bilateral nonhealing venous stasis ulcers/ Bilateral lower extremity cellulitis Failure of outpatient treatment. Vascular surgery evaluated. Not able to do contrast study secondary to acute kidney injury on admission. Follow-up as an outpatient and no intervention planned per vascular surgery. Status post debridement by Dr. Colon on 05/15. Pain improved 05/21. -Palliative care consult appreciated. Referral made to wound care to consider hyperbaric treatment per patient's request upon discharge today. - Continue pain control with a bowel regimen. Adjusted by palliative care 05/22. - Continue antibiotics as per infectious disease. - Continue wound care per podiatry. - 05/23. Discussed with podiatry by previous hospitalist. Main problem is bilateral lower extremity edema. BNP is not markedly elevated, however patient does have ejection fraction measured 35% earlier this year. It would be helpful to order diuretics, however renal function is very poor at the moment and patient didn't tolerate ARBs. Continue to monitor. 05/24-Echocardiogram with continued ejection fraction 30%. Consuledt cardiology , Dr. Garcias currently following and recommended consideration isosorbide and hydralazine as patient cannot tolerate Lasix or ARB due to acute kidney injury. Acute kidney injurymuch better after initially holding diuretics and ARB; patient renal function seems stable on low-dose diuretics after restarting. Pain control - Continue fentanyl patch as per palliative care. Patient remained stable Acute kidney injury. Much improvedstopped NSAIDs. Appreciate nephrology consultation. . Creatinine has stabilized. - Continue to hold losartan, Lasix has been restarted. Avoid nephrotoxins. - follow up with nephrology. - Cardiomyopathy Ejection fraction 30%. Has lower extremity edema. - Continue Coreg, Dr. Garcias recommended isosorbide and started low dose of this medication. Diabetes mellitus, insulin-dependent continue to monitor with sliding scale insulin coverage -Is on long-acting insulin at home. - Patient is on glargine 20 units twice daily at home. - Continue Levemir 20 units twice daily. - Glucose level acceptable. Continue monitor. Hyponatremia. Resolved. 128 on admission. 130 currently. Overall stable. Asymptomatic. - follow BMP. VTE Prophylaxis. Subcutaneous heparin. Discharge Planning Discharge planning to alf facility. Estefanía Salguero MD May 30, 2016 16:35
[2016-05-30] MEDS ORDERED: CIPR-9 PO (16:51)
[2016-05-30] MEDS ORDERED: FURO20TA PO (16:51)
[2016-05-30] MEDS ORDERED: ISOS1TAB PO (16:51)
[2016-05-30] MEDS ORDERED: LEVEMIR SQ (16:51)
[2016-05-30] MEDS ORDERED: NEUR300C PO (16:51)
[2016-05-30] MEDS ORDERED: CLIN150 PO (16:51)
[2016-05-30] MEDS ORDERED: FENT50T TD (16:54)
[2016-05-30] MEDS ORDERED: OXYC1TAB63 PO (16:54)
--- NOTE | 2016-05-30 17:05 | HHI.DS ---
Discharge Summary Admission Date May 13, 2016 at 18:35 Discharge Date: May 30, 2016 Admitting Diagnosis BLE cellulitis; diabetic ulcers; ARF (1) Cellulitis and abscess of lower extremity ICD Code: L02.419 (2) Acute kidney failure, unspecified ICD Code: N17.9 Procedures 05/15 bilateral lower extremity wound debridement Brief History - From Admission History from patient, ER notes, and review of medical records. Patient reported that she came to the hospital because her left lower extremity has been getting worse with swelling, weeping discharge with foul smelling discharge. She stated that she has had treatments as outpatient and nothing was really improving and therefore finally her doctor had suggested her to come to hospital as well. She states her symptoms started a week before Thanks when she was bit by some insight in that left lower extremity. She initially tried to take care of the wound that resulted from this bite by putting some towels at home and doing self dressing. However this got worse and therefore about 10 days later, she presented to [facility] emergency room. She was admitted at that time to our hospital and was treated with IV antibiotics. She states that she was given vancomycin and Zosyn at that time. She was then discharged on clindamycin. She reports she was also seen by wound care nurse during that hospitalization and she has had Unna boots placed bilateral lower extremity. However the pain from this Unna boots was quite severe on the left side that it was actually removed within 24 hours. Her right Unna boot was there for a few days although there was minimal symptoms on the right at that time. She reports that after this 24 hours of treatment with Unna boot on her left lower extremity, she did not really receive any follow-up wound care. As an outpatient, she was also given Bactrim by her primary doctor. She reports that no matter which antibiotic she was on, the symptoms of the wounds were not really improving. Now that discharge has become more foul- smelling and she is worried that it might be staph infection. The pain from these ulcers are also quite excruciating that she is not eating or drinking well at home. She reports she has been dehydrated because of these. However denies nausea or vomiting. It's mainly sensation of burning and pain from the skin rather than joint pains. She states she was on Narco at home and this was not working at all. Therefore she took multiple doses of Advil/ibuprofen/aspirin on top of Narco to control her pain. She states she usually would be sitting up at night and rocking herself crying because of these severe pains. Her renal function is noted to be acutely worsens today. She denies recent contrast administrations. She states that her last contrast study was about a year ago and at that time she actually went into flash pulmonary edema because of contrast. Since then she never had any workup that required contrast studies. Patient reports she believes she has peripheral arterial disease. She has remote history of smoking. However quit about 15 years ago. She has not been seen by infectious disease doctor or vascular surgeon for these wounds. She was receiving home health care visit appointment in the past 2 weeks. However it was mainly wet-to-dry dressing. CBC/BMP: 05/29/16 0752 05/30/16 0558 Significant Findings Laboratory Tests Test 05/28/16 05/28/16 05/29/16 05/30/16 07:00 13:40 07:52 05:58 Urine Leukocyte Esterase SMALL (NEG) Urine Bacteria RARE /hpf (NONE) Urine Mucus FEW /lpf (OCC) Urine Yeast (Budding) RARE (NONE) Red Blood Count 3.56 MIL/MM3 3.41 MIL/MM3 (4.00-5.30) (4.00-5.30) Hemoglobin 9.4 GM/DL 9.0 GM/DL (11.6-15.3) (11.6-15.3) Hematocrit 28.7 % 27.2 % (35.0-46.0) (35.0-46.0) Mean Corpuscular Hemoglobin 26.5 PG 26.5 PG (27.0-34.0) (27.0-34.0) Neutrophils (%) (Auto) 73.7 % 75.0 % (16.0-70.0) (16.0-70.0) Monocytes (%) (Auto) 8.6 % (0.0-8.0) 9.7 % (0.0-8.0) Band Neutrophils % 14 % (0-6) Neutrophils # (Manual) 8.0 TH/MM3 7.9 TH/MM3 (1.8-7.7) (1.8-7.7) Myelocytes 1 % (0-0) 2 % (0-0) Toxic Granulation 1+ (NORMAL) Sodium Level 129 MEQ/L 130 MEQ/L 131 MEQ/L (136-145) (136-145) (136-145) Chloride Level 95 MEQ/L 95 MEQ/L (98-107) (98-107) Blood Urea Nitrogen 63 MG/DL (7-18) 52 MG/DL (7-18) 40 MG/DL (7-18) Creatinine 1.97 MG/DL 1.22 MG/DL 1.08 MG/DL (0.50-1.00) (0.50-1.00) (0.50-1.00) Estimat Glomerular Filtration 26 ML/MIN (>89) 45 ML/MIN (>89) 51 ML/MIN (>89) Rate Random Glucose 67 MG/DL 134 MG/DL (74-106) (74-106) Mean Corpuscular Volume 79.7 FL (80.0-100.0) Monocytes # (Auto) 1.0 TH/MM3 (0-0.9) Neutrophils % (Manual) 79 % (16-70) Calcium Level 8.4 MG/DL (8.5-10.1) Albumin 2.2 GM/DL (3.4-5.0) Imaging Last Impressions Shoulder X-Ray 05/27/16 0000 Signed Impressions: Service Date/Time: Friday, May 27, 2016 20:33 - CONCLUSION: Unremarkable limited examination of the right shoulder. Alfredo Etienne MD Renal Ultrasound 05/14/16 1457 Signed Impressions: Service Date/Time: Saturday, May 14, 2016 15:20 - CONCLUSION: 1. Increased echogenicity of the kidneys suggesting underlying medical renal disease. No findings to indicate renal obstruction. Jose Rogers MD Lower Extremity Ultrasound 05/14/16 0948 Signed Impressions: Service Date/Time: Saturday, May 14, 2016 14:30 - CONCLUSION: 1. No DVT identified. 2. No abscess seen in the subcutaneous soft tissues Jose Rogers MD Foot X-Ray 05/14/16 0000 Signed Impressions: Service Date/Time: Saturday, May 14, 2016 19:35 - CONCLUSION: 1. Extensive soft tissue swelling with no evidence to suggest osteomyelitis. 2. There are no radiopaque foreign bodies. Janes Danielson MD Chest X-Ray 05/13/16 1632 Signed Impressions: Service Date/Time: Friday, May 13, 2016 17:23 - CONCLUSION: No acute disease. Shamar Banuelos MD PE at Discharge GENERAL: This is a well-nourished, well-developed patient, in no apparent distress. CARDIOVASCULAR: Regular rate and rhythm RESPIRATORY: Clear to auscultation. Breath sounds equal bilaterally. No wheezes , rales, or rhonchi. GASTROINTESTINAL: Abdomen soft, non-tender, nondistended. Normal active bowel sounds MUSCULOSKELETAL: Extremities without clubbing, cyanosis, 2+ edema bilateral Colby bandage wrap lower extremity NEURO: Alert & Oriented x4 to person, place, time, situation. Moves all ext x4 Hospital Course 61-year-old white female was admitted for bilateral lower extremity infected wounds. She was seen by the podiatry service performed a bilateral lower summary wound debridement on May 15. She was seen by infectious disease who recommended antibiotic treatment with Cipro and clindamycin. Local wound care was completed. Rehabilitation efforts with continued along with follow-up referral to wound care clinic and possible evaluation of hyperbaric treatment as an outpatient. She was seen by vascular surgery service and at this point recommend conservative treatment and no aggressive intervention due to her acute renal failure. Pain management was performed. Pt Condition on Discharge: Good Discharge Disposition: Discharge to SNF Discharge Time: <= 30 minutes Discharge Instructions DIET: Follow Instructions for: Heart Healthy Diet Activities you can perform: Regular-No Restrictions Follow up Referrals: PCP Follow-up Wound Care [facility] with [facility] New Medications: Fentanyl Patch 72 HR (Duragesic Patch 72 HR) 50 Mcg/Hr Patch 1 PATCH TD Q3D Pain Management #2 PATCH Gabapentin (Neurontin) 300 Mg Cap 300 MG PO BID neuropathy #60 CAP Oxycodone-Acetaminophen (Oxycodone-Acetaminophen) 10-325 mg Tab 1 TAB PO Q4HR PRN pain #15 Ref 0 TAB Continued Medications: Bupropion HCl ER 12 HR (Wellbutrin SR 12 HR) 150 Mg Tab 150 MG PO Q12HR Control Depression Ref 0 TAB Carvedilol (Carvedilol) 25 Mg Tab 25 MG PO BID #60 Ref [address] (Cymbalta DR) 30 Mg Capdr 30 MG PO Q12HR #30 Ref 0 CAP Furosemide (Lasix) 20 Mg Tab 20 MG PO DAILY #30 Ref 0 TAB Lactobacillus Acidophilus (Lactinex) 1 Chew 1 TAB CHEW TID Nutritional Supplement #90 Ref 0 TAB Levothyroxine (Levothyroxine) 175 Mcg Tab 175 MCG PO DAILY TAB Liothyronine (Liothyronine) 5 Mcg Tab 5 MCG PO DAILY Thyroid Supplement #30 Ref 0 TAB Oxycodone-Acetaminophen (Oxycodone-Acetaminophen) 5-325 mg Tab 1 TAB PO Q4H PRN PAIN 3-5 #10 TAB (This prescription has been renewed) Discontinued Medications: Insulin Glargine Inj (Lantus Inj) 1,000 Unit/10 Ml Vial 22 UNITS SQ BID Blood Sugar Management Ref 0 VIAL Naproxen (Naprosyn) 250 Mg Tab 250 MG PO BID Pain #60 Ref 0 TAB Estefanía Salguero MD May 30, 2016 17:05 Losartan (Losartan) 100 Mg Tab 100 MG PO DAILY Blood Pressure Management #30 Ref 0 TAB Oxycodone-Acetaminophen (Oxycodone-Acetaminophen) 5-325 mg Tab 1 TAB PO Q4H PRN PAIN 3-5 #10 TAB (This prescription has been renewed) Discontinued Medications: Clindamycin (Clindamycin) 300 Mg Cap 450 MG PO Q6H Infection #40 Ref 0 CAP Insulin Glargine Inj (Lantus Inj) 1,000 Unit/10 Ml Vial 22 UNITS SQ BID Blood Sugar Management Ref 0 VIAL Naproxen (Naprosyn) 250 Mg Tab 250 MG PO BID Pain #60 Ref 0 TAB Estefanía Salguero MD May 30, 2016 17:05
[2016-05-30] MEDS: CIPROFLOXACIN 500 MG TAB PO SCH (18:29)
[2016-05-30] MEDS ORDERED: oxyCODONE/ACETAMINOPHEN 5 MG/325 MG TAB PO PRN (18:45)
[2016-05-30] MEDS ORDERED: ACETAMINOPHEN 325 MG TAB PO PRN (19:00)
[2016-05-30 20:00] VITALS: BP 134/62; PULSE 88; RESP 20; TEMP 98; O2SAT 95
[2016-05-31] VITALS: BP 147/64; PULSE 72; RESP 19; TEMP 98; O2SAT 95
[2016-05-31] MEDS: CLINDAMYCIN 150 MG CAP PO SCH ×5 (00:13→23:42)
[2016-05-31] MEDS: HYDROmorphone HCL PF 1 MG/ML VIAL IV PUSH PRN ×5 (00:14→18:21)
[2016-05-31 04:00] VITALS: BP 127/61; PULSE 68; RESP 18; TEMP 97.8; O2SAT 98
[2016-05-31] MEDS: LEVOTHYROXINE SODIUM 75 MCG TAB PO SCH (05:00)
[2016-05-31] MEDS: METHOCARBAMOL 500 MG TAB PO SCH ×3 (05:00→20:41)
[2016-05-31] MEDS: INSULIN ASPART SUPPLEMENTAL SCALE SQ SCH ×4 (05:00→20:41)
[2016-05-31] MEDS: LEVOTHYROXINE SODIUM 100 MCG TAB PO SCH (05:00)
[2016-05-31 08:00] VITALS: BP 138/64; PULSE 71; RESP 18; TEMP 97.6; O2SAT 97
[2016-05-31] MEDS: DOCUSATE SODIUM 100 MG CAP PO SCH ×2 (09:00→20:40)
[2016-05-31] MEDS: LACTOBACILLUS ACIDOPHILUS TAB PO SCH ×3 (09:00→16:16)
[2016-05-31] MEDS: GABAPENTIN 300 MG CAP PO SCH ×2 (09:26→20:41)
[2016-05-31] MEDS: DULoxetine HCl DR 30 MG CAP PO SCH ×2 (09:26→20:41)
[2016-05-31] MEDS: buPROPion HCL 150 MG SUSTAINED RELEASE TAB PO SCH ×2 (09:26→20:41)
[2016-05-31] MEDS: SODIUM CHLORIDE 0.9% FLUSH 5 ML FLUSH FLUSH SCH ×2 (09:26→20:41)
[2016-05-31] MEDS: ISOSORBIDE DINITRATE 5 MG TAB PO SCH ×3 (09:26→16:25)
[2016-05-31] MEDS: LIOTHYRONINE SODIUM 5 MCG TAB PO SCH (09:26)
[2016-05-31] MEDS: CIPROFLOXACIN 500 MG TAB PO SCH (09:26)
[2016-05-31] MEDS: FUROSEMIDE 20 MG TAB PO SCH (09:26)
[2016-05-31] MEDS: HEPARIN SODIUM - SQ 10,000 UNITS/ML VIAL SQ SCH ×2 (09:26→20:40)
[2016-05-31] MEDS: CARVEDILOL 12.5 MG TAB PO SCH ×2 (09:26→20:41)
[2016-05-31] MEDS: SILVER SULFADIAZINE 1% CR 400 GM JAR TOPICAL SCH (09:27)
[2016-05-31] MEDS: INSULIN DETEMIR 100 UNITS/ML VIAL SQ SCH ×2 (09:27→20:42)
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
--- NOTE | 2016-05-31 11:19 | HHI.PR ---
Subjective Remarks complaining and crying of severe pain to both legs. no fever. family at the bedside. d/w the RN. Objective Vitals Vital Signs Date Time Temp Pulse Resp B/P Pulse Ox O2 Delivery O2 Flow Rate FiO2 05/31/16 08:00 97.6 71 18 138/64 97 05/31/16 04:00 97.8 68 18 127/61 98 05/31/16 00:00 98.0 72 19 147/64 95 05/30/16 21:20 Room Air 05/30/16 20:00 98.0 88 20 134/62 95 05/30/16 16:07 98.1 67 18 142/63 95 05/30/16 12:35 97.9 66 18 115/56 98 I/O 05/30/16 05/30/16 05/30/16 05/31/16 05/31/16 05/31/16 07:00 15:00 23:00 07:00 15:00 23:00 Intake Total 242 ml 360 ml 322 ml 124 ml Output Total 600 ml Balance 242 ml 360 ml 322 ml -476 ml Intake Oral 240 ml 360 ml 320 ml 120 ml IV Total 2 ml 2 ml 4 ml Output Urine Total 600 ml # Voids 2 2 1 # Bowel Movements 1 1 Result Diagram: 05/29/16 0752 05/30/16 0558 Imaging Last Impressions Shoulder X-Ray 05/27/16 0000 Signed Impressions: Service Date/Time: Friday, May 27, 2016 20:33 - CONCLUSION: Unremarkable limited examination of the right shoulder. Alfredo Etienne MD Renal Ultrasound 05/14/16 1457 Signed Impressions: Service Date/Time: Saturday, May 14, 2016 15:20 - CONCLUSION: 1. Increased echogenicity of the kidneys suggesting underlying medical renal disease. No findings to indicate renal obstruction. Jose Rogers MD Lower Extremity Ultrasound 05/14/16 0948 Signed Impressions: Service Date/Time: Saturday, May 14, 2016 14:30 - CONCLUSION: 1. No DVT identified. 2. No abscess seen in the subcutaneous soft tissues Jose Rogers MD Foot X-Ray 05/14/16 0000 Signed Impressions: Service Date/Time: Saturday, May 14, 2016 19:35 - CONCLUSION: 1. Extensive soft tissue swelling with no evidence to suggest osteomyelitis. 2. There are no radiopaque foreign bodies. Janes Danielson MD Chest X-Ray 05/13/16 1282 Signed Impressions: Service Date/Time: Friday, May 13, 2016 17:23 - CONCLUSION: No acute disease. Shamar Banuelos MD Objective Remarks GENERAL: This is a well-nourished, well-developed patient, in no apparent distress. CARDIOVASCULAR: Regular rate and regular rhythm without murmurs, gallops, or rubs. RESPIRATORY: Clear to auscultation. Breath sounds equal bilaterally. No wheezes , rales, or rhonchi. GASTROINTESTINAL: Abdomen soft, non-tender, nondistended. Normal, active bowel sounds MUSCULOSKELETAL: both legs covered with clean dressing. NEURO: Alert & Oriented x4 to person, place, time, situation. Moves all ext x4 Procedures 05/15 bilateral lower extremity wound debridement Medications and IVs Current Medications Hydromorphone HCl 1 mg 1 mg ONCE ONCE IV PUSH Last administered on 05/13/16at 16:44; Start 05/13/16 at 16:45; Stop 05/13/16 at 16:46; Status DC Vancomycin HCl 1000 mg/Sodium Chloride 250 ml @ 250 mls/hr ONCE STAT IV Last administered on 05/13/16 16:43; Start 05/13/16 at 16:32; Stop 05/13/16 at 17 :31; Status DC Piperacillin Sod/ Tazobactam Sod (Zosyn 3.375 Gm Premix) 50 ml @ 100 mls/hr ONCE ONCE IV Last administered on 05/13/16at 16:43; Start 05/13/16 at 16:45; Stop 05/13/16 at 17:14; Status DC IV Flush (NS Flush) 2 ml UNSCH PRN FLUSH FLUSH AFTER USING IV ACCESS Last administered on 05/18/16 02:50; Start 05/13/16 at 18:45 IV Flush (NS Flush) 2 ml BID FLUSH Last administered on 05/31/16 09:26; Start 05/13/16 at 21:00 Ondansetron HCl (Zofran Inj) 4 mg Q6H PRN IVP NAUSEA OR VOMITING Last administered on 05/15/16at 08:07; Start 05/13/16 at 18:45 Bisacodyl (Dulcolax Supp) 10 mg DAILY PRN NM CONSTIPATION; Start 05/13/16 at 18:45 Magnesium Hydroxide (Milk Of Magnmandeep Liq) 30 ml Q12H PRN PO CONSTIPATION; Start 05/13/16 at 18:45 Sennosides (Senokot) 17.2 mg Q12H PRN PO CONSTIPATION; Start 05/13/16 at 18:45 Heparin Sodium (Porcine) (Heparin Inj) 5,000 units Q12H SQ Last administered on 05/31/16 09:26; Start 05/13/16 at 20:00 Naloxone HCl 0.4 mg 0.4 mg UNSCH PRN IV SEE LABEL COMMENTS; Start 05/13/16 at 18:45 Piperacillin Sod/ Tazobactam Sod 50 ml @ 100 mls/hr Q8H IV ; Start 05/13/16 at 18:45; Status UNV Pharmacy Profile Note (Vancomycin Consult Pharmacy) 0 ml @ 0 mls/hr UNSCH OTHER ; Start 05/13/16 at 18:45; Stop 05/13/16 at 23:04; Status DC Bupropion HCl (Wellbutrin Sr) 150 mg Q12HR PO Last administered on 05/31/16 09: 26; Start 05/13/16 at 21:00 Carvedilol (Coreg) 25 mg BID PO Last administered on 05/31/16 09:26; Start at 21:00 Non-Formulary Medication 175 mcg DAILY PO ; Start 05/14/16 at 09:00; Status UNV Insulin Aspart (NovoLOG SUPPLEMENTAL SCALE) 1 ACHS SLIDING SCALE SQ Last administered on 05/30/16 21:00; Start 05/13/16 at 21:00 Dextrose (D50w (Vial) Inj) 25 ml UNSCH PRN IV PUSH HYPOGLYCEMIA - SEE COMMENTS ; Start 05/13/16 at 19:00 Glucagon (Glucagon Inj) 1 mg UNSCH PRN OTHER HYPOGLYCEMIA-SEE COMMENTS; Start 05/13/16 at 19:00 Levothyroxine Sodium (Synthroid) 75 mcg DAILY@06 PO Last administered on 05:00; Start 05/14/16 at 06:00 Levothyroxine Sodium 100 mcg 100 mcg DAILY@06 PO Last administered on 05/31/16 05:00; Start 05/14/16 at 06:00 Piperacillin Sod/ Tazobactam Sod 50 ml @ 100 mls/hr Q8H IV Last administered on 05/14/16at 10:03; Start 05/14/16 at 00:00; Stop 05/14/16 at 12:12; Status DC Vancomycin HCl/ Sodium Chloride (Vancomycin Inj/ NS 250 ml Inj) 250 ml @ 250 mls/hr ONCE ONCE IV Last administered on 05/13/16at 20:33; Start 05/13/16 at 20:00; Stop 05/13/16 at 20:59; Status DC Hydromorphone HCl 1 mg 1 mg Q4H PRN IV PUSH breakthrough pain Last administered on 05/14/16at 13:59; Start 05/13/16 at 19:30; Stop 05/14/16 at 14 :55; Status DC Linezolid (Zyvox 600 Mg Premix) 300 ml @ 300 mls/hr Q12H IV Last administered on 05/17/16at 09:20; Start 05/14/16 at 09:00; Stop 05/17/16 at 11:01; Status DC Liothyronine Sodium (Cytomel) 5 mcg DAILY PO Last administered on 05/31/16 09: 26; Start 05/14/16 at 09:00 Lactobacillus Acidophilus (Lactinex) 1 tab TID PO Last administered on 17:01; Start 05/14/16 at 09:00 Oxycodone/ Acetaminophen (Percocet 10-325 Mg) 1 tab Q4H PRN PO PAIN SCALE 4 TO 7 Last administered on 05/15/16at 02:55; Start 05/13/16 at 23:15; Stop at 12:03; Status DC Sodium Bicarbonate 650 mg 650 mg Q12HR PO Last administered on 05/15/16at 21:42 ; Start 05/14/16 at 10:30; Stop 05/15/16 at 22:51; Status DC Cefepime HCl/ Sodium Chloride (Maxipime Inj/NS Inj) 100 ml @ 200 mls/hr Q24H IV Last administered on 05/20/16at 12:13; Start 05/14/16 at 12:00; Stop 05/20 at 12:35; Status DC Duloxetine HCl (Cymbalta Dr) 30 mg BID PO Last administered on 05/31/16 09:26; Start 05/14/16 at 21:00 Hydromorphone HCl (Dilaudid Pf Inj) 1 mg Q2HR PRN IV PUSH breakthrough pain Last administered on 05/15/16at 09:38; Start 05/14/16 at 16:00; Stop 05/15/16 at 12:03; Status DC Oxycodone/ Acetaminophen (Percocet 7.5-325 Mg) 2 tab Q4H PRN PO PAIN SCALE 8 TO 10; Start 05/14/16 at 16:15; Stop 05/15/16 at 12:03; Status DC Silver Sulfadiazine (Silvadene 1% Cream (400 Gm)) 1 applic DAILY TOPICAL Last administered on 05/31/16 09:27; Start 05/14/16 at 18:00 Famotidine (Pepcid Inj) 20 mg STK-MED ONCE .ROUTE ; Start 05/15/16 at 09:02; Stop 05/15/16 at 09:03; Status DC Bupivacaine HCl (Marcaine Pf 0.25% Inj) 30 ml STK-MED ONCE .ROUTE ; Start 05/15 at 10:42; Stop 05/15/16 at 10:43; Status DC Acetaminophen (Ofirmev Inj) 1,000 mg STK-MED ONCE IV ; Start 05/15/16 at 11:00 ; Stop 05/15/16 at 11:01; Status DC Famotidine (Pepcid Inj) 20 mg STK-MED ONCE .ROUTE ; Start 05/15/16 at 11:01; Stop 05/15/16 at 11:02; Status DC Midazolam HCl (Versed Inj) 2 mg STK-MED ONCE .ROUTE ; Start 05/15/16 at 11:01; Stop 05/15/16 at 11:02; Status DC Fentanyl Citrate (fentaNYL INJ) 250 mcg STK-MED ONCE .ROUTE ; Start 05/15/16 at 11:01; Stop 05/15/16 at 11:02; Status DC Diclofenac Sodium (Dyloject Inj) 37.5 mg STK-MED ONCE IV PUSH ; Start 05/15/16 at 11:01; Stop 05/15/16 at 11:02; Status DC Dexamethasone Sodium Phosphate (Decadron Inj) 4 mg STK-MED ONCE .ROUTE ; Start 05/15/16 at 11:01; Stop 05/15/16 at 11:02; Status DC Bacitracin (Baciguent Oint) 15 applic STK-MED ONCE .ROUTE Last administered on 05/15/16at 11:41; Start 05/15/16 at 11:16; Stop 05/15/16 at 11:17; Status DC Hydromorphone HCl (Dilaudid Pf Inj) 2 mg Q4H PRN IV PUSH PAIN SCALE 6 TO 10 Last administered on 05/17/16at 07:30; Start 05/15/16 at 12:00; Stop 05/17/16 at 10:01; Status DC Oxycodone/ Acetaminophen (Percocet 7.5-325 Mg) 2 tab Q6H PRN PO PAIN SCALE 1 TO 5 Last administered on 05/17/16at 06:21; Start 05/15/16 at 12:00; Stop at 10:01; Status DC Morphine Sulfate (*morphine INJ PERIprocedure ONLY) 8 mg STK-MED ONCE .ROUTE Last administered on 05/15/16at 12:35; Start 05/15/16 at 12:35; Stop 05/15/16 at 12:36; Status DC Miscellaneous Information ALL NURSING DEPARTME... UNSCH PRN XX SEE LABEL COMMENTS; Start 05/15/16 at 13:15; Stop 05/16/16 at 13:14; Status DC Propofol (Diprivan 200 Mg/20 ml Inj) 200 mg STK-MED ONCE IV ; Start 05/15/16 at 12:00; Stop 05/16/16 at 08:14; Status DC Ondansetron HCl (Zofran Inj) 4 mg STK-MED ONCE IV PUSH ; Start 05/15/16 at 12: 00; Stop 05/16/16 at 08:14; Status DC Neostigmine Methylsulfate (Prostigmin Inj) 3 mg STK-MED ONCE IV ; Start at 12:00; Stop 05/16/16 at 08:14; Status DC Insulin Detemir (Levemir Inj) 15 units Q12HR SQ Last administered on at 07:32; Start 05/16/16 at 21:00; Stop 05/20/16 at 12:24; Status DC Hydromorphone HCl (Dilaudid Pf Inj) 1 mg Q4H PRN IV PUSH Breakthrough PAIN; Start 05/17/16 at 12:00; Stop 05/17/16 at 14:06; Status DC Hydromorphone HCl (Dilaudid) 2 mg Q4H PRN PO pain 1-5 Last administered on at 12:46; Start 05/17/16 at 10:00; Stop 05/23/16 at 11:48; Status DC Hydromorphone HCl (Dilaudid) 4 mg Q4H PRN PO pain 6-10 Last administered on at 08:56; Start 05/17/16 at 10:00; Stop 05/23/16 at 11:48; Status DC Docusate Sodium (Colace) 100 mg BID PO Last administered on 05/29/16 08:29; Start 05/17/16 at 10:00 Clindamycin HCl (Cleocin) 300 mg Q6HR PO Last administered on 05/31/16 05:00; Start 05/17/16 at 12:00 Hydromorphone HCl (Dilaudid Pf Inj) 2 mg Q4H PRN IV PUSH Breakthrough PAIN Last administered on 05/18/16at 11:30; Start 05/17/16 at 16:00; Stop 05/18/16 at 12:23; Status DC Hydromorphone HCl (Dilaudid Pf Inj) 3 mg Q4H PRN IV PUSH Breakthrough PAIN Last administered on 05/19/16at 13:09; Start 05/18/16 at 16:00; Stop 05/19/16 at 15:24; Status DC Gabapentin (Neurontin) 300 mg TID PO Last administered on 05/22/16at 08:25; Start 05/18/16 at 13:00; Stop 05/22/16 at 11:03; Status DC Hydromorphone HCl (Dilaudid Pf Inj) 1 mg Q4H PRN IV PUSH dressing changes Last administered on 05/22/16at 21:53; Start 05/18/16 at 12:30; Stop 05/24/16 at 16 :09; Status DC Hydromorphone HCl (Dilaudid Pf Inj) 2 mg Q4H PRN IV PUSH Breakthrough PAIN Last administered on 05/23/16at 02:33; Start 05/19/16 at 16:00; Stop 05/23/16 at 11:48; Status DC Morphine Sulfate (Oramorph Sr) 15 mg Q12HR PO Last administered on 05/20/16at 07:30; Start 05/19/16 at 21:00; Stop 05/20/16 at 12:12; Status DC Sodium Polystyrene Sulfonate (Kayexalate Liq) 15 gm ONCE ONCE PO Last administered on 05/20/16at 09:58; Start 05/20/16 at 08:15; Stop 05/20/16 at 08 :17; Status DC Morphine Sulfate (Oramorph Sr) 30 mg Q12HR PO ; Start 05/20/16 at 21:00; Stop 05/21/16 at 15:26; Status DC Morphine Sulfate (Oramorph Sr) 15 mg ONCE ONCE PO Last administered on at 13:43; Start 05/20/16 at 12:15; Stop 05/20/16 at 12:16; Status DC Insulin Detemir (Levemir Inj) 20 units Q12HR SQ Last administered on 05/31/16 09:27; Start 05/20/16 at 21:00 Ciprofloxacin (Cipro) 500 mg Q12HR PO Last administered on 05/28/16t 07:54; Start 05/20/16 at 12:45; Stop 05/28/16 at 09:39; Status DC Lorazepam (Ativan) 1 mg ONCE ONCE PO Last administered on 05/20/16at 15:06; Start 05/20/16 at 15:00; Stop 05/20/16 at 15:01; Status DC Fentanyl (Duragesic 25 Mcg Patch.72 Hr) 1 patch Q3D TD Last administered on 05/21/16at 18:40; Start 05/21/16 at 16:00; Stop 05/23/16 at 11:53; Status DC Miscellaneous Information 1 Q3D TD ; Start 05/24/16 at 16:00; Stop 05/24/16 at 16:00; Status DC Lorazepam (Ativan Inj) 1 mg Q4H PRN IV PUSH ANXIETY; Start 05/21/16 at 15:30; Stop 05/22/16 at 11:03; Status DC Gabapentin (Neurontin) 400 mg BID PO Last administered on 05/26/16 09:50; Start 05/22/16 at 11:15; Stop 05/26/16 at 15:14; Status DC Lorazepam (Ativan Inj) 1 mg Q4H PRN PO ANXIETY Last administered on 05/24/16at 05:49; Start 05/22/16 at 11:30; Stop 05/24/16 at 17:02; Status DC Fentanyl (Duragesic 50 Mcg Patch.72 Hr) 1 patch Q3D TD Last administered on 12:59; Start 05/23/16 at 14:00 Miscellaneous Information 1 Q3D TD Last administered on 05/29/16 12:59; Start 05/26/16 at 14:00 Hydromorphone HCl (Dilaudid) 4 mg Q4H PRN PO PAIN SCALE 1 TO 6; Start at 12:00; Stop 05/24/16 at 17:02; Status DC Hydromorphone HCl (Dilaudid) 6 mg Q4H PRN PO PAIN SCALE 6 TO 8 Last administered on 05/24/16at 13:18; Start 05/23/16 at 12:00; Stop 05/24/16 at 17 :02; Status DC Hydromorphone HCl (Dilaudid Pf Inj) 1 mg Q4H PRN IV PUSH PAIN SCALE 9 TO 10 Last administered on 05/23/16at 22:20; Start 05/23/16 at 12:00; Stop 05/24/16 at 16:09; Status DC Hydromorphone HCl (Dilaudid Pf Inj) 0.2 mg Q4H PRN IV PUSH dressing changes Last administered on 05/30/16 21:44; Start 05/24/16 at 16:30 Hydromorphone HCl (Dilaudid Pf Inj) 0.5 mg Q4H PRN IV PUSH PAIN SCALE 9 TO 10 Last administered on 05/31/16 09:27; Start 05/24/16 at 20:00 Hydromorphone HCl (Dilaudid) 2 mg Q4H PRN PO PAIN SCALE 1 TO 6; Start at 17:30; Stop 05/30/16 at 18:52; Status DC Hydromorphone HCl (Dilaudid) 4 mg Q4H PRN PO PAIN SCALE 7 TO 8 Last administered on 05/27/16 00:46; Start 05/24/16 at 20:00; Stop 05/30/16 at 18:52 ; Status DC Furosemide (Lasix) 40 mg ONCE ONCE PO Last administered on 05/25/16 09:00; Start 05/25/16 at 08:00; Stop 05/25/16 at 08:01; Status DC Losartan Potassium (Cozaar) 50 mg Q12HR PO Last administered on 05/26/16 09:50 ; Start 05/25/16 at 21:00; Stop 05/26/16 at 15:23; Status DC Furosemide (Lasix) 20 mg DAILY PO Last administered on 05/31/16 09:26; Start at 09:00 Gabapentin (Neurontin) 300 mg TID PO Last administered on 05/26/16 17:53; Start 05/26/16 at 18:00; Stop 05/27/16 at 08:30; Status DC Methocarbamol (Robaxin) 750 mg Q8HR PO Last administered on 05/31/16 05:00; Start 05/26/16 at 22:00 Gabapentin (Neurontin) 300 mg BID PO Last administered on 05/31/16 09:26; Start 05/27/16 at 09:00 Ciprofloxacin (Cipro) 500 mg Q18H PO Last administered on 05/31/16 09:26; Start 05/28/16 at 09:38 Isosorbide Dinitrate (Isordil) 5 mg TIDAC PO Last administered on 05/31/16 09: 26; Start 05/29/16 at 17:00 Acetaminophen (Tylenol) 650 mg Q6H PRN PO PAIN SCALE 1 TO 2; Start 05/30/16 at 19:00 Oxycodone/ Acetaminophen (Percocet 5-325 Mg) 1 tab Q6H PRN PO PAIN SCALE 3 TO 5; Start 05/30/16 at 18:45 Oxycodone/ Acetaminophen (Percocet 10-325 Mg) 1 tab Q6H PRN PO PAIN 6-8; Start 05/30/16 at 19:00 A/P Assessment and Plan A/P Bilateral nonhealing venous stasis ulcers/ Bilateral lower extremity cellulitis Failure of outpatient treatment. Vascular surgery evaluated. Not able to do contrast study secondary to acute kidney injury on admission. Follow-up as an outpatient and no intervention planned per vascular surgery. Status post debridement by Dr. Colon on 05/15. Palliative care consult appreciated. Referral made to wound care to consider hyperbaric treatment per patient's request upon discharge today. - Continue pain control with a bowel regimen. will change the dilaudid for breakthrough pain. - Continue antibiotics as per infectious disease. - Continue wound care per podiatry. - 05/23. Discussed with podiatry by previous hospitalist. Main problem is bilateral lower extremity edema. BNP is not markedly elevated, however patient does have ejection fraction measured 35% earlier this year. It would be helpful to order diuretics, however renal function is very poor at the moment and patient didn't tolerate ARBs. Continue to monitor. 05/24-Echocardiogram with continued ejection fraction 30%. Consulted cardiology , Dr. Garcias currently following and recommended consideration isosorbide and hydralazine as patient cannot tolerate Lasix or ARB due to acute kidney injury. Acute kidney injurymuch better after initially holding diuretics and ARB; patient renal function seems stable on low-dose diuretics after restarting. Pain control - continue with percocet- dilaudid for breakthrough pain. Acute kidney injury. Much improvedstopped NSAIDs. Appreciate nephrology consultation. . Creatinine has stabilized. - Continue to hold losartan, Lasix has been restarted. Avoid nephrotoxins. - follow up with nephrology. - Cardiomyopathy Ejection fraction 30%. Has lower extremity edema. - Continue Coreg, Dr. Garcias recommended isosorbide and started low dose of this medication. Diabetes mellitus, insulin-dependent continue to monitor with sliding scale insulin coverage -Is on long-acting insulin at home. - Patient is on glargine 20 units twice daily at home. - Continue Levemir 20 units twice daily. - Glucose level acceptable. Continue monitor. Hyponatremia. Resolved. Overall stable. Asymptomatic. VTE Prophylaxis. Subcutaneous heparin. Discharge Planning within the next one-two days when pain is better controlled. Conrad Clancy MD May 31, 2016 11:19
[2016-05-31 12:00] VITALS: BP 115/64; PULSE 73; RESP 18; TEMP 97.8; O2SAT 93
[2016-05-31 16:00] VITALS: BP 119/66; PULSE 72; RESP 18; TEMP 97.8; O2SAT 99
[2016-05-31] MEDS: oxyCODONE/ACETAMINOPHEN 10 MG/325 MG TAB PO PRN ×2 (16:25→23:44)
[2016-05-31 20:00] VITALS: BP 133/63; PULSE 71; RESP 17; TEMP 98.1; O2SAT 95
[2016-06-01] VITALS: BP 123/68; PULSE 67; RESP 18; TEMP 97.6; O2SAT 94
[2016-06-01 04:00] VITALS: BP 120/62; PULSE 71; RESP 18; TEMP 97.9; O2SAT 97
[2016-06-01] MEDS: LEVOTHYROXINE SODIUM 75 MCG TAB PO SCH (05:08)
[2016-06-01] MEDS: LEVOTHYROXINE SODIUM 100 MCG TAB PO SCH (05:08)
[2016-06-01] MEDS: CIPROFLOXACIN 500 MG TAB PO SCH ×2 (05:09→21:14)
[2016-06-01] MEDS: CLINDAMYCIN 150 MG CAP PO SCH ×3 (05:09→18:06)
[2016-06-01] MEDS: METHOCARBAMOL 500 MG TAB PO SCH ×3 (05:09→21:15)
[2016-06-01] MEDS: HYDROmorphone HCL PF 1 MG/ML VIAL IV PUSH PRN ×3 (05:10→23:10)
[2016-06-01] MEDS: INSULIN ASPART SUPPLEMENTAL SCALE SQ SCH ×4 (06:30→21:00)
[2016-06-01 08:00] VITALS: BP 151/65; PULSE 77; RESP 18; TEMP 97.8; O2SAT 98
[2016-06-01] MEDS: INSULIN DETEMIR 100 UNITS/ML VIAL SQ SCH ×2 (09:00→21:16)
[2016-06-01] MEDS: DULoxetine HCl DR 30 MG CAP PO SCH ×2 (09:19→21:00)
[2016-06-01] MEDS: CARVEDILOL 12.5 MG TAB PO SCH ×2 (09:19→21:14)
[2016-06-01] MEDS: LACTOBACILLUS ACIDOPHILUS TAB PO SCH ×3 (09:20→18:00)
[2016-06-01] MEDS: ISOSORBIDE DINITRATE 5 MG TAB PO SCH ×3 (09:20→18:06)
[2016-06-01] MEDS: buPROPion HCL 150 MG SUSTAINED RELEASE TAB PO SCH ×2 (09:20→21:14)
[2016-06-01] MEDS: GABAPENTIN 300 MG CAP PO SCH ×2 (09:20→21:14)
[2016-06-01] MEDS: DOCUSATE SODIUM 100 MG CAP PO SCH ×2 (09:20→21:14)
[2016-06-01] MEDS: FUROSEMIDE 20 MG TAB PO SCH (09:20)
[2016-06-01] MEDS: HEPARIN SODIUM - SQ 10,000 UNITS/ML VIAL SQ SCH ×2 (09:20→21:15)
[2016-06-01] MEDS: LIOTHYRONINE SODIUM 5 MCG TAB PO SCH (09:20)
[2016-06-01] MEDS: oxyCODONE/ACETAMINOPHEN 10 MG/325 MG TAB PO PRN ×3 (09:25→21:18)
[2016-06-01] MEDS: SODIUM CHLORIDE 0.9% FLUSH 5 ML FLUSH FLUSH SCH ×2 (09:26→21:15)
[2016-06-01 12:00] VITALS: BP 121/60; PULSE 68; RESP 18; TEMP 97.8; O2SAT 98
--- NOTE | 2016-06-01 12:44 | HHI.PR ---
Subjective Remarks looks and feels more comfortable today. pain to the legs has much improved. says that slept well last night. no other complaints. Objective Vitals Vital Signs Date Time Temp Pulse Resp B/P Pulse Ox O2 Delivery O2 Flow Rate FiO2 06/01/16 08:00 97.8 77 18 151/65 98 06/01/16 04:00 97.9 71 18 120/62 97 06/01/16 00:00 97.6 67 18 123/68 94 05/31/16 20:20 Room Air 05/31/16 20:00 98.1 71 17 133/63 95 05/31/16 16:00 97.8 72 18 119/66 99 I/O 05/31/16 05/31/16 05/31/16 06/01/16 06/01/16 06/01/16 06:59 14:59 22:59 06:59 14:59 22:59 Intake Total 124 ml 2160 ml 360 ml 240 ml Output Total 600 ml 900 ml Balance -476 ml 1260 ml 360 ml 240 ml Intake Oral 120 ml 2160 ml 360 ml 240 ml IV Total 4 ml Output Urine Total 600 ml 900 ml # Voids 0 2 # Bowel Movements 0 1 Result Diagram: 05/29/16 0752 05/30/16 0558 Imaging Last Impressions Shoulder X-Ray 05/27/16 0000 Signed Impressions: Service Date/Time: Friday, May 27, 2016 20:33 - CONCLUSION: Unremarkable limited examination of the right shoulder. Alfredo Etienne MD Renal Ultrasound 05/14/16 1457 Signed Impressions: Service Date/Time: Saturday, May 14, 2016 15:20 - CONCLUSION: 1. Increased echogenicity of the kidneys suggesting underlying medical renal disease. No findings to indicate renal obstruction. Jose Rogers MD Lower Extremity Ultrasound 05/14/16 0948 Signed Impressions: Service Date/Time: Saturday, May 14, 2016 14:30 - CONCLUSION: 1. No DVT identified. 2. No abscess seen in the subcutaneous soft tissues Jose Rogers MD Foot X-Ray 05/14/16 0000 Signed Impressions: Service Date/Time: Saturday, May 14, 2016 19:35 - CONCLUSION: 1. Extensive soft tissue swelling with no evidence to suggest osteomyelitis. 2. There are no radiopaque foreign bodies. Janes Danielson MD Chest X-Ray 05/13/16 1632 Signed Impressions: Service Date/Time: Friday, May 13, 2016 17:23 - CONCLUSION: No acute disease. Shamar Banuelos MD Objective Remarks GENERAL: This is a well-nourished, well-developed patient, in no apparent distress. CARDIOVASCULAR: Regular rate and regular rhythm without murmurs, gallops, or rubs. RESPIRATORY: Clear to auscultation. Breath sounds equal bilaterally. No wheezes , rales, or rhonchi. GASTROINTESTINAL: Abdomen soft, non-tender, nondistended. Normal, active bowel sounds MUSCULOSKELETAL: both legs covered with clean dressing. NEURO: Alert & Oriented x4 to person, place, time, situation. Moves all ext x4 Procedures 05/15 bilateral lower extremity wound debridement Medications and IVs Current Medications Hydromorphone HCl 1 mg 1 mg ONCE ONCE IV PUSH Last administered on 05/13/16 16:44; Start 05/13/16 at 16:45; Stop 05/13/16 at 16:46; Status DC Vancomycin HCl 1000 mg/Sodium Chloride 250 ml @ 250 mls/hr ONCE STAT IV Last administered on 05/13/16 16:43; Start 05/13/16 at 16:32; Stop 05/13/16 at 17 :31; Status DC Piperacillin Sod/ Tazobactam Sod (Zosyn 3.375 Gm Premix) 50 ml @ 100 mls/hr ONCE ONCE IV Last administered on 05/13/16at 16:43; Start 05/13/16 at 16:45; Stop 05/13/16 at 17:14; Status DC IV Flush (NS Flush) 2 ml UNSCH PRN FLUSH FLUSH AFTER USING IV ACCESS Last administered on 05/18/16 02:50; Start 05/13/16 at 18:45 IV Flush (NS Flush) 2 ml BID FLUSH Last administered on 06/01/16 09:26; Start 05/13/16 at 21:00 Ondansetron HCl (Zofran Inj) 4 mg Q6H PRN IVP NAUSEA OR VOMITING Last administered on 05/15/16 08:07; Start 05/13/16 at 18:45 Bisacodyl (Dulcolax Supp) 10 mg DAILY PRN NV CONSTIPATION; Start 05/13/16 at 18:45 Magnesium Hydroxide (Milk Of Magnmandeep Liq) 30 ml Q12H PRN PO CONSTIPATION; Start 05/13/16 at 18:45 Sennosides (Senokot) 17.2 mg Q12H PRN PO CONSTIPATION; Start 05/13/16 at 18:45 Heparin Sodium (Porcine) (Heparin Inj) 5,000 units Q12H SQ Last administered on 06/01/16 09:20; Start 05/13/16 at 20:00 Naloxone HCl 0.4 mg 0.4 mg UNSCH PRN IV SEE LABEL COMMENTS; Start 05/13/16 at 18:45 Piperacillin Sod/ Tazobactam Sod 50 ml @ 100 mls/hr Q8H IV ; Start 05/13/16 at 18:45; Status UNV Pharmacy Profile Note (Vancomycin Consult Pharmacy) 0 ml @ 0 mls/hr UNSCH OTHER ; Start 05/13/16 at 18:45; Stop 05/13/16 at 23:04; Status DC Bupropion HCl (Wellbutrin Sr) 150 mg Q12HR PO Last administered on 06/01/16 09: 20; Start 05/13/16 at 21:00 Carvedilol (Coreg) 25 mg BID PO Last administered on 06/01/16 09:19; Start at 21:00 Non-Formulary Medication 175 mcg DAILY PO ; Start 05/14/16 at 09:00; Status UNV Insulin Aspart (NovoLOG SUPPLEMENTAL SCALE) 1 ACHS SLIDING SCALE SQ Last administered on 05/31/16 12:27; Start 05/13/16 at 21:00 Dextrose (D50w (Vial) Inj) 25 ml UNSCH PRN IV PUSH HYPOGLYCEMIA - SEE COMMENTS ; Start 05/13/16 at 19:00 Glucagon (Glucagon Inj) 1 mg UNSCH PRN OTHER HYPOGLYCEMIA-SEE COMMENTS; Start 05/13/16 at 19:00 Levothyroxine Sodium (Synthroid) 75 mcg DAILY@06 PO Last administered on 05:08; Start 05/14/16 at 06:00 Levothyroxine Sodium 100 mcg 100 mcg DAILY@06 PO Last administered on 06/01/16 05:08; Start 05/14/16 at 06:00 Piperacillin Sod/ Tazobactam Sod 50 ml @ 100 mls/hr Q8H IV Last administered on 05/14/16at 10:03; Start 05/14/16 at 00:00; Stop 05/14/16 at 12:12; Status DC Vancomycin HCl/ Sodium Chloride (Vancomycin Inj/ NS 250 ml Inj) 250 ml @ 250 mls/hr ONCE ONCE IV Last administered on 05/13/16at 20:33; Start 05/13/16 at 20:00; Stop 05/13/16 at 20:59; Status DC Hydromorphone HCl 1 mg 1 mg Q4H PRN IV PUSH breakthrough pain Last administered on 05/14/16at 13:59; Start 05/13/16 at 19:30; Stop 05/14/16 at 14 :55; Status DC Linezolid (Zyvox 600 Mg Premix) 300 ml @ 300 mls/hr Q12H IV Last administered on 05/17/16at 09:20; Start 05/14/16 at 09:00; Stop 05/17/16 at 11:01; Status DC Liothyronine Sodium (Cytomel) 5 mcg DAILY PO Last administered on 06/01/16 09: 20; Start 05/14/16 at 09:00 Lactobacillus Acidophilus (Lactinex) 1 tab TID PO Last administered on 09:20; Start 05/14/16 at 09:00 Oxycodone/ Acetaminophen (Percocet 10-325 Mg) 1 tab Q4H PRN PO PAIN SCALE 4 TO 7 Last administered on 05/15/16at 02:55; Start 05/13/16 at 23:15; Stop at 12:03; Status DC Sodium Bicarbonate 650 mg 650 mg Q12HR PO Last administered on 05/15/16at 21:42 ; Start 05/14/16 at 10:30; Stop 05/15/16 at 22:51; Status DC Cefepime HCl/ Sodium Chloride (Maxipime Inj/NS Inj) 100 ml @ 200 mls/hr Q24H IV Last administered on 05/20/16at 12:13; Start 05/14/16 at 12:00; Stop 05/20 at 12:35; Status DC Duloxetine HCl (Cymbalta Dr) 30 mg BID PO Last administered on 06/01/16 09:19; Start 05/14/16 at 21:00 Hydromorphone HCl (Dilaudid Pf Inj) 1 mg Q2HR PRN IV PUSH breakthrough pain Last administered on 05/15/16at 09:38; Start 05/14/16 at 16:00; Stop 05/15/16 at 12:03; Status DC Oxycodone/ Acetaminophen (Percocet 7.5-325 Mg) 2 tab Q4H PRN PO PAIN SCALE 8 TO 10; Start 05/14/16 at 16:15; Stop 05/15/16 at 12:03; Status DC Silver Sulfadiazine (Silvadene 1% Cream (400 Gm)) 1 applic DAILY TOPICAL Last administered on 05/31/16 09:27; Start 05/14/16 at 18:00 Famotidine (Pepcid Inj) 20 mg STK-MED ONCE .ROUTE ; Start 05/15/16 at 09:02; Stop 05/15/16 at 09:03; Status DC Bupivacaine HCl (Marcaine Pf 0.25% Inj) 30 ml STK-MED ONCE .ROUTE ; Start 05/15 at 10:42; Stop 05/15/16 at 10:43; Status DC Acetaminophen (Ofirmev Inj) 1,000 mg STK-MED ONCE IV ; Start 05/15/16 at 11:00 ; Stop 05/15/16 at 11:01; Status DC Famotidine (Pepcid Inj) 20 mg STK-MED ONCE .ROUTE ; Start 05/15/16 at 11:01; Stop 05/15/16 at 11:02; Status DC Midazolam HCl (Versed Inj) 2 mg STK-MED ONCE .ROUTE ; Start 05/15/16 at 11:01; Stop 05/15/16 at 11:02; Status DC Fentanyl Citrate (fentaNYL INJ) 250 mcg STK-MED ONCE .ROUTE ; Start 05/15/16 at 11:01; Stop 05/15/16 at 11:02; Status DC Diclofenac Sodium (Dyloject Inj) 37.5 mg STK-MED ONCE IV PUSH ; Start 05/15/16 at 11:01; Stop 05/15/16 at 11:02; Status DC Dexamethasone Sodium Phosphate (Decadron Inj) 4 mg STK-MED ONCE .ROUTE ; Start 05/15/16 at 11:01; Stop 05/15/16 at 11:02; Status DC Bacitracin (Baciguent Oint) 15 applic STK-MED ONCE .ROUTE Last administered on 05/15/16at 11:41; Start 05/15/16 at 11:16; Stop 05/15/16 at 11:17; Status DC Hydromorphone HCl (Dilaudid Pf Inj) 2 mg Q4H PRN IV PUSH PAIN SCALE 6 TO 10 Last administered on 05/17/16at 07:30; Start 05/15/16 at 12:00; Stop 05/17/16 at 10:01; Status DC Oxycodone/ Acetaminophen (Percocet 7.5-325 Mg) 2 tab Q6H PRN PO PAIN SCALE 1 TO 5 Last administered on 05/17/16at 06:21; Start 05/15/16 at 12:00; Stop at 10:01; Status DC Morphine Sulfate (*morphine INJ PERIprocedure ONLY) 8 mg STK-MED ONCE .ROUTE Last administered on 05/15/16at 12:35; Start 05/15/16 at 12:35; Stop 05/15/16 at 12:36; Status DC Miscellaneous Information ALL NURSING DEPARTME... UNSCH PRN XX SEE LABEL COMMENTS; Start 05/15/16 at 13:15; Stop 05/16/16 at 13:14; Status DC Propofol (Diprivan 200 Mg/20 ml Inj) 200 mg STK-MED ONCE IV ; Start 05/15/16 at 12:00; Stop 05/16/16 at 08:14; Status DC Ondansetron HCl (Zofran Inj) 4 mg STK-MED ONCE IV PUSH ; Start 05/15/16 at 12: 00; Stop 05/16/16 at 08:14; Status DC Neostigmine Methylsulfate (Prostigmin Inj) 3 mg STK-MED ONCE IV ; Start at 12:00; Stop 05/16/16 at 08:14; Status DC Insulin Detemir (Levemir Inj) 15 units Q12HR SQ Last administered on at 07:32; Start 05/16/16 at 21:00; Stop 05/20/16 at 12:24; Status DC Hydromorphone HCl (Dilaudid Pf Inj) 1 mg Q4H PRN IV PUSH Breakthrough PAIN; Start 05/17/16 at 12:00; Stop 05/17/16 at 14:06; Status DC Hydromorphone HCl (Dilaudid) 2 mg Q4H PRN PO pain 1-5 Last administered on at 12:46; Start 05/17/16 at 10:00; Stop 05/23/16 at 11:48; Status DC Hydromorphone HCl (Dilaudid) 4 mg Q4H PRN PO pain 6-10 Last administered on at 08:56; Start 05/17/16 at 10:00; Stop 05/23/16 at 11:48; Status DC Docusate Sodium (Colace) 100 mg BID PO Last administered on 06/01/16 09:20; Start 05/17/16 at 10:00 Clindamycin HCl (Cleocin) 300 mg Q6HR PO Last administered on 06/01/16 05:09; Start 05/17/16 at 12:00 Hydromorphone HCl (Dilaudid Pf Inj) 2 mg Q4H PRN IV PUSH Breakthrough PAIN Last administered on 05/18/16at 11:30; Start 05/17/16 at 16:00; Stop 05/18/16 at 12:23; Status DC Hydromorphone HCl (Dilaudid Pf Inj) 3 mg Q4H PRN IV PUSH Breakthrough PAIN Last administered on 05/19/16at 13:09; Start 05/18/16 at 16:00; Stop 05/19/16 at 15:24; Status DC Gabapentin (Neurontin) 300 mg TID PO Last administered on 05/22/16at 08:25; Start 05/18/16 at 13:00; Stop 05/22/16 at 11:03; Status DC Hydromorphone HCl (Dilaudid Pf Inj) 1 mg Q4H PRN IV PUSH dressing changes Last administered on 05/22/16at 21:53; Start 05/18/16 at 12:30; Stop 05/24/16 at 16 :09; Status DC Hydromorphone HCl (Dilaudid Pf Inj) 2 mg Q4H PRN IV PUSH Breakthrough PAIN Last administered on 05/23/16at 02:33; Start 05/19/16 at 16:00; Stop 05/23/16 at 11:48; Status DC Morphine Sulfate (Oramorph Sr) 15 mg Q12HR PO Last administered on 05/20/16at 07:30; Start 05/19/16 at 21:00; Stop 05/20/16 at 12:12; Status DC Sodium Polystyrene Sulfonate (Kayexalate Liq) 15 gm ONCE ONCE PO Last administered on 05/20/16at 09:58; Start 05/20/16 at 08:15; Stop 05/20/16 at 08 :17; Status DC Morphine Sulfate (Oramorph Sr) 30 mg Q12HR PO ; Start 05/20/16 at 21:00; Stop 05/21/16 at 15:26; Status DC Morphine Sulfate (Oramorph Sr) 15 mg ONCE ONCE PO Last administered on at 13:43; Start 05/20/16 at 12:15; Stop 05/20/16 at 12:16; Status DC Insulin Detemir (Levemir Inj) 20 units Q12HR SQ Last administered on 06/01/16 09:00; Start 05/20/16 at 21:00 Ciprofloxacin (Cipro) 500 mg Q12HR PO Last administered on 05/28/16 07:54; Start 05/20/16 at 12:45; Stop 05/28/16 at 09:39; Status DC Lorazepam (Ativan) 1 mg ONCE ONCE PO Last administered on 05/20/16at 15:06; Start 05/20/16 at 15:00; Stop 05/20/16 at 15:01; Status DC Fentanyl (Duragesic 25 Mcg Patch.72 Hr) 1 patch Q3D TD Last administered on 05/21/16at 18:40; Start 05/21/16 at 16:00; Stop 05/23/16 at 11:53; Status DC Miscellaneous Information 1 Q3D TD ; Start 05/24/16 at 16:00; Stop 05/24/16 at 16:00; Status DC Lorazepam (Ativan Inj) 1 mg Q4H PRN IV PUSH ANXIETY; Start 05/21/16 at 15:30; Stop 05/22/16 at 11:03; Status DC Gabapentin (Neurontin) 400 mg BID PO Last administered on 05/26/16 09:50; Start 05/22/16 at 11:15; Stop 05/26/16 at 15:14; Status DC Lorazepam (Ativan Inj) 1 mg Q4H PRN PO ANXIETY Last administered on 05/24/16at 05:49; Start 05/22/16 at 11:30; Stop 05/24/16 at 17:02; Status DC Fentanyl (Duragesic 50 Mcg Patch.72 Hr) 1 patch Q3D TD Last administered on 12:59; Start 05/23/16 at 14:00 Miscellaneous Information 1 Q3D TD Last administered on 05/29/16 12:59; Start 05/26/16 at 14:00 Hydromorphone HCl (Dilaudid) 4 mg Q4H PRN PO PAIN SCALE 1 TO 6; Start at 12:00; Stop 05/24/16 at 17:02; Status DC Hydromorphone HCl (Dilaudid) 6 mg Q4H PRN PO PAIN SCALE 6 TO 8 Last administered on 05/24/16at 13:18; Start 05/23/16 at 12:00; Stop 05/24/16 at 17 :02; Status DC Hydromorphone HCl (Dilaudid Pf Inj) 1 mg Q4H PRN IV PUSH PAIN SCALE 9 TO 10 Last administered on 05/23/16at 22:20; Start 05/23/16 at 12:00; Stop 05/24/16 at 16:09; Status DC Hydromorphone HCl (Dilaudid Pf Inj) 0.2 mg Q4H PRN IV PUSH dressing changes Last administered on 05/30/16 21:44; Start 05/24/16 at 16:30 Hydromorphone HCl (Dilaudid Pf Inj) 0.5 mg Q4H PRN IV PUSH BREAKTHROUGH PAIN Last administered on 06/01/16 11:30; Start 05/24/16 at 20:00 Hydromorphone HCl (Dilaudid) 2 mg Q4H PRN PO PAIN SCALE 1 TO 6; Start at 17:30; Stop 05/30/16 at 18:52; Status DC Hydromorphone HCl (Dilaudid) 4 mg Q4H PRN PO PAIN SCALE 7 TO 8 Last administered on 05/27/16 00:46; Start 05/24/16 at 20:00; Stop 05/30/16 at 18:52 ; Status DC Furosemide (Lasix) 40 mg ONCE ONCE PO Last administered on 05/25/16 09:00; Start 05/25/16 at 08:00; Stop 05/25/16 at 08:01; Status DC Losartan Potassium (Cozaar) 50 mg Q12HR PO Last administered on 05/26/16 09:50 ; Start 05/25/16 at 21:00; Stop 05/26/16 at 15:23; Status DC Furosemide (Lasix) 20 mg DAILY PO Last administered on 06/01/16 09:20; Start at 09:00 Gabapentin (Neurontin) 300 mg TID PO Last administered on 05/26/16 17:53; Start 05/26/16 at 18:00; Stop 05/27/16 at 08:30; Status DC Methocarbamol (Robaxin) 750 mg Q8HR PO Last administered on 06/01/16 05:09; Start 05/26/16 at 22:00 Gabapentin (Neurontin) 300 mg BID PO Last administered on 06/01/16 09:20; Start 05/27/16 at 09:00 Ciprofloxacin (Cipro) 500 mg Q18H PO Last administered on 06/01/16 05:09; Start 05/28/16 at 09:38 Isosorbide Dinitrate (Isordil) 5 mg TIDAC PO Last administered on 06/01/16 09: 20; Start 05/29/16 at 17:00 Acetaminophen (Tylenol) 650 mg Q6H PRN PO PAIN SCALE 1 TO 2; Start 05/30/16 at 19:00 Oxycodone/ Acetaminophen (Percocet 5-325 Mg) 1 tab Q6H PRN PO PAIN SCALE 3 TO 5; Start 05/30/16 at 18:45 Oxycodone/ Acetaminophen (Percocet 10-325 Mg) 1 tab Q6H PRN PO PAIN 6-10 Last administered on 06/01/16 09:25; Start 05/30/16 at 19:00 A/P Assessment and Plan A/P Bilateral nonhealing venous stasis ulcers/ Bilateral lower extremity cellulitis Failure of outpatient treatment. Vascular surgery evaluated. Not able to do contrast study secondary to acute kidney injury on admission. Follow-up as an outpatient and no intervention planned per vascular surgery. Status post debridement by Dr. Colon on 05/15. Palliative care consult appreciated. Referral made to wound care to consider hyperbaric treatment per patient's request upon discharge today. - Continue pain control with a bowel regimen. will change the dilaudid for breakthrough pain. - Continue antibiotics as per infectious disease. - Continue wound care per podiatry. - 05/23. Discussed with podiatry by previous hospitalist. Main problem is bilateral lower extremity edema. BNP is not markedly elevated, however patient does have ejection fraction measured 35% earlier this year. It would be helpful to order diuretics, however renal function is very poor at the moment and patient didn't tolerate ARBs. Continue to monitor. 05/24-Echocardiogram with continued ejection fraction 30%. Consulted cardiology , Dr. Garcias currently following and recommended consideration isosorbide and hydralazine as patient cannot tolerate Lasix or ARB due to acute kidney injury. Acute kidney injurymuch better after initially holding diuretics and ARB; patient renal function seems stable on low-dose diuretics after restarting. Pain control - continue with percocet- dilaudid for breakthrough pain. Acute kidney injury. Much improvedstopped NSAIDs. Appreciate nephrology consultation. . Creatinine has stabilized. - Continue to hold losartan, Lasix has been restarted. Avoid nephrotoxins. - follow up with nephrology. - Cardiomyopathy Ejection fraction 30%. Has lower extremity edema. - Continue Coreg, Dr. Garcias recommended isosorbide and started low dose of this medication. Diabetes mellitus, insulin-dependent continue to monitor with sliding scale insulin coverage -Is on long-acting insulin at home. - Patient is on glargine 20 units twice daily at home. - Continue Levemir 20 units twice daily. - Glucose level acceptable. Continue monitor. Hyponatremia. Resolved. Overall stable. Asymptomatic. VTE Prophylaxis. Subcutaneous heparin. Discharge Planning possible discharge tomorrow if pain is controlled. Conrad Clancy MD Jun 01, 2016 12:43
[2016-06-01] MEDS: REMOVE OLD PATCH TD SCH (14:00)
[2016-06-01] MEDS: fentaNYL 50 MCG/HR PATCH TD SCH (14:47)
[2016-06-01 16:00] VITALS: BP 127/58; PULSE 77; RESP 18; TEMP 97.9; O2SAT 96
[2016-06-01 20:37] VITALS: BP 141/85; PULSE 76; RESP 18; TEMP 98.3; O2SAT 94
[2016-06-02 00:13] VITALS: BP 121/77; PULSE 76; RESP 16; TEMP 97.9; O2SAT 96
[2016-06-02] MEDS: oxyCODONE/ACETAMINOPHEN 10 MG/325 MG TAB PO PRN ×2 (03:34→13:00)
[2016-06-02] MEDS: LEVOTHYROXINE SODIUM 100 MCG TAB PO SCH (05:45)
[2016-06-02] MEDS: METHOCARBAMOL 500 MG TAB PO SCH ×2 (05:45→12:47)
[2016-06-02] MEDS: LEVOTHYROXINE SODIUM 75 MCG TAB PO SCH (05:46)
[2016-06-02] MEDS: INSULIN ASPART SUPPLEMENTAL SCALE SQ SCH ×2 (05:47→12:46)
[2016-06-02 05:49] VITALS: BP 152/68; PULSE 77; RESP 16; TEMP 95; O2SAT 97
[2016-06-02] MEDS: CLINDAMYCIN 150 MG CAP PO SCH ×3 (05:49→12:46)
[2016-06-02 08:07] VITALS: BP 136/60; PULSE 74; RESP 18; TEMP 97.8; O2SAT 96
[2016-06-02] MEDS: buPROPion HCL 150 MG SUSTAINED RELEASE TAB PO SCH (08:25)
[2016-06-02] MEDS: GABAPENTIN 300 MG CAP PO SCH (08:25)
[2016-06-02] MEDS: ISOSORBIDE DINITRATE 5 MG TAB PO SCH ×2 (08:25→12:47)
[2016-06-02] MEDS: LIOTHYRONINE SODIUM 5 MCG TAB PO SCH (08:25)
[2016-06-02] MEDS: FUROSEMIDE 20 MG TAB PO SCH (08:26)
[2016-06-02] MEDS: CARVEDILOL 12.5 MG TAB PO SCH (08:26)
[2016-06-02] MEDS: HEPARIN SODIUM - SQ 10,000 UNITS/ML VIAL SQ SCH (08:27)
[2016-06-02] MEDS: INSULIN DETEMIR 100 UNITS/ML VIAL SQ SCH (08:28)
[2016-06-02] MEDS: DULoxetine HCl DR 30 MG CAP PO SCH (08:38)
[2016-06-02] MEDS: SILVER SULFADIAZINE 1% CR 400 GM JAR TOPICAL SCH (08:39)
[2016-06-02] MEDS: HYDROmorphone HCL PF 1 MG/ML VIAL IV PUSH PRN (08:39)
[2016-06-02] MEDS: DOCUSATE SODIUM 100 MG CAP PO SCH (08:46)
[2016-06-02] MEDS: SODIUM CHLORIDE 0.9% FLUSH 5 ML FLUSH FLUSH SCH (08:46)
[2016-06-02] MEDS: LACTOBACILLUS ACIDOPHILUS TAB PO SCH ×2 (08:46→12:51)
--- NOTE | 2016-06-02 10:07 | HHI.PR ---
Subjective Remarks looks and feels more comfortable today. pain has much improved. no other complaints. Objective Vitals Vital Signs Date Time Temp Pulse Resp B/P Pulse Ox O2 Delivery O2 Flow Rate FiO2 06/02/16 08:07 97.8 74 18 136/60 96 06/02/16 05:49 95.0 77 16 152/68 97 06/02/16 00:13 97.9 76 16 121/77 96 06/01/16 21:10 Room Air 06/01/16 20:37 98.3 76 18 141/85 94 06/01/16 16:00 97.9 77 18 127/58 96 06/01/16 12:00 97.8 68 18 121/60 98 I/O 06/01/16 06/01/16 06/01/16 06/02/16 06/02/16 06/02/16 07:00 15:00 23:00 07:00 15:00 23:00 Intake Total 240 ml 1080 ml Output Total 1200 ml 0 ml Balance 240 ml -120 ml 0 ml Intake Oral 240 ml 1080 ml Output Urine Total 1200 ml 0 ml # Voids 2 1 1 # Bowel Movements 1 0 1 0 Result Diagram: 05/29/16 0752 05/30/16 0558 Imaging Last Impressions Shoulder X-Ray 05/27/16 0000 Signed Impressions: Service Date/Time: Friday, May 27, 2016 20:33 - CONCLUSION: Unremarkable limited examination of the right shoulder. Alfredo Etienne MD Renal Ultrasound 05/14/16 1457 Signed Impressions: Service Date/Time: Saturday, May 14, 2016 15:20 - CONCLUSION: 1. Increased echogenicity of the kidneys suggesting underlying medical renal disease. No findings to indicate renal obstruction. Jose Rogers MD Lower Extremity Ultrasound 05/14/16 0948 Signed Impressions: Service Date/Time: Saturday, May 14, 2016 14:30 - CONCLUSION: 1. No DVT identified. 2. No abscess seen in the subcutaneous soft tissues Jose Rogers MD Foot X-Ray 05/14/16 0000 Signed Impressions: Service Date/Time: Saturday, May 14, 2016 19:35 - CONCLUSION: 1. Extensive soft tissue swelling with no evidence to suggest osteomyelitis. 2. There are no radiopaque foreign bodies. Janes Danielson MD Chest X-Ray 05/13/16 0382 Signed Impressions: Service Date/Time: Friday, May 13, 2016 17:23 - CONCLUSION: No acute disease. Shamar Banuelos MD Objective Remarks GENERAL: This is a well-nourished, well-developed patient, in no apparent distress. CARDIOVASCULAR: Regular rate and regular rhythm without murmurs, gallops, or rubs. RESPIRATORY: Clear to auscultation. Breath sounds equal bilaterally. No wheezes , rales, or rhonchi. GASTROINTESTINAL: Abdomen soft, non-tender, nondistended. Normal, active bowel sounds MUSCULOSKELETAL: both legs covered with clean dressing. NEURO: Alert & Oriented x4 to person, place, time, situation. Moves all ext x4 Procedures 05/15 bilateral lower extremity wound debridement Medications and IVs Current Medications Hydromorphone HCl 1 mg 1 mg ONCE ONCE IV PUSH Last administered on 05/13/16 16:44; Start 05/13/16 at 16:45; Stop 05/13/16 at 16:46; Status DC Vancomycin HCl 1000 mg/Sodium Chloride 250 ml @ 250 mls/hr ONCE STAT IV Last administered on 05/13/16 16:43; Start 05/13/16 at 16:32; Stop 05/13/16 at 17 :31; Status DC Piperacillin Sod/ Tazobactam Sod (Zosyn 3.375 Gm Premix) 50 ml @ 100 mls/hr ONCE ONCE IV Last administered on 05/13/16 16:43; Start 05/13/16 at 16:45; Stop 05/13/16 at 17:14; Status DC IV Flush (NS Flush) 2 ml UNSCH PRN FLUSH FLUSH AFTER USING IV ACCESS Last administered on 05/18/16 02:50; Start 05/13/16 at 18:45 IV Flush (NS Flush) 2 ml BID FLUSH Last administered on 06/02/16 08:46; Start 05/13/16 at 21:00 Ondansetron HCl (Zofran Inj) 4 mg Q6H PRN IVP NAUSEA OR VOMITING Last administered on 05/15/16 08:07; Start 05/13/16 at 18:45 Bisacodyl (Dulcolax Supp) 10 mg DAILY PRN CO CONSTIPATION; Start 05/13/16 at 18:45 Magnesium Hydroxide (Milk Of Magnmandeep Liq) 30 ml Q12H PRN PO CONSTIPATION; Start 05/13/16 at 18:45 Sennosides (Senokot) 17.2 mg Q12H PRN PO CONSTIPATION; Start 05/13/16 at 18:45 Heparin Sodium (Porcine) (Heparin Inj) 5,000 units Q12H SQ Last administered on 06/02/16 08:27; Start 05/13/16 at 20:00 Naloxone HCl 0.4 mg 0.4 mg UNSCH PRN IV SEE LABEL COMMENTS; Start 05/13/16 at 18:45 Piperacillin Sod/ Tazobactam Sod 50 ml @ 100 mls/hr Q8H IV ; Start 05/13/16 at 18:45; Status UNV Pharmacy Profile Note (Vancomycin Consult Pharmacy) 0 ml @ 0 mls/hr UNSCH OTHER ; Start 05/13/16 at 18:45; Stop 05/13/16 at 23:04; Status DC Bupropion HCl (Wellbutrin Sr) 150 mg Q12HR PO Last administered on 06/02/16 08: 25; Start 05/13/16 at 21:00 Carvedilol (Coreg) 25 mg BID PO Last administered on 06/02/16 08:26; Start at 21:00 Non-Formulary Medication 175 mcg DAILY PO ; Start 05/14/16 at 09:00; Status UNV Insulin Aspart (NovoLOG SUPPLEMENTAL SCALE) 1 ACHS SLIDING SCALE SQ Last administered on 06/02/16 05:47; Start 05/13/16 at 21:00 Dextrose (D50w (Vial) Inj) 25 ml UNSCH PRN IV PUSH HYPOGLYCEMIA - SEE COMMENTS ; Start 05/13/16 at 19:00 Glucagon (Glucagon Inj) 1 mg UNSCH PRN OTHER HYPOGLYCEMIA-SEE COMMENTS; Start 05/13/16 at 19:00 Levothyroxine Sodium (Synthroid) 75 mcg DAILY@06 PO Last administered on 05:46; Start 05/14/16 at 06:00 Levothyroxine Sodium 100 mcg 100 mcg DAILY@06 PO Last administered on 06/02/16 05:45; Start 05/14/16 at 06:00 Piperacillin Sod/ Tazobactam Sod 50 ml @ 100 mls/hr Q8H IV Last administered on 05/14/16at 10:03; Start 05/14/16 at 00:00; Stop 05/14/16 at 12:12; Status DC Vancomycin HCl/ Sodium Chloride (Vancomycin Inj/ NS 250 ml Inj) 250 ml @ 250 mls/hr ONCE ONCE IV Last administered on 05/13/16at 20:33; Start 05/13/16 at 20:00; Stop 05/13/16 at 20:59; Status DC Hydromorphone HCl 1 mg 1 mg Q4H PRN IV PUSH breakthrough pain Last administered on 05/14/16at 13:59; Start 05/13/16 at 19:30; Stop 05/14/16 at 14 :55; Status DC Linezolid (Zyvox 600 Mg Premix) 300 ml @ 300 mls/hr Q12H IV Last administered on 05/17/16at 09:20; Start 05/14/16 at 09:00; Stop 05/17/16 at 11:01; Status DC Liothyronine Sodium (Cytomel) 5 mcg DAILY PO Last administered on 06/02/16 08: 25; Start 05/14/16 at 09:00 Lactobacillus Acidophilus (Lactinex) 1 tab TID PO Last administered on 09:20; Start 05/14/16 at 09:00 Oxycodone/ Acetaminophen (Percocet 10-325 Mg) 1 tab Q4H PRN PO PAIN SCALE 4 TO 7 Last administered on 05/15/16at 02:55; Start 05/13/16 at 23:15; Stop at 12:03; Status DC Sodium Bicarbonate 650 mg 650 mg Q12HR PO Last administered on 05/15/16at 21:42 ; Start 05/14/16 at 10:30; Stop 05/15/16 at 22:51; Status DC Cefepime HCl/ Sodium Chloride (Maxipime Inj/NS Inj) 100 ml @ 200 mls/hr Q24H IV Last administered on 05/20/16at 12:13; Start 05/14/16 at 12:00; Stop 05/20 at 12:35; Status DC Duloxetine HCl (Cymbalta Dr) 30 mg BID PO Last administered on 06/02/16 08:38; Start 05/14/16 at 21:00 Hydromorphone HCl (Dilaudid Pf Inj) 1 mg Q2HR PRN IV PUSH breakthrough pain Last administered on 05/15/16at 09:38; Start 05/14/16 at 16:00; Stop 05/15/16 at 12:03; Status DC Oxycodone/ Acetaminophen (Percocet 7.5-325 Mg) 2 tab Q4H PRN PO PAIN SCALE 8 TO 10; Start 05/14/16 at 16:15; Stop 05/15/16 at 12:03; Status DC Silver Sulfadiazine (Silvadene 1% Cream (400 Gm)) 1 applic DAILY TOPICAL Last administered on 06/02/16t 08:39; Start 05/14/16 at 18:00 Famotidine (Pepcid Inj) 20 mg STK-MED ONCE .ROUTE ; Start 05/15/16 at 09:02; Stop 05/15/16 at 09:03; Status DC Bupivacaine HCl (Marcaine Pf 0.25% Inj) 30 ml STK-MED ONCE .ROUTE ; Start 05/15 at 10:42; Stop 05/15/16 at 10:43; Status DC Acetaminophen (Ofirmev Inj) 1,000 mg STK-MED ONCE IV ; Start 05/15/16 at 11:00 ; Stop 05/15/16 at 11:01; Status DC Famotidine (Pepcid Inj) 20 mg STK-MED ONCE .ROUTE ; Start 05/15/16 at 11:01; Stop 05/15/16 at 11:02; Status DC Midazolam HCl (Versed Inj) 2 mg STK-MED ONCE .ROUTE ; Start 05/15/16 at 11:01; Stop 05/15/16 at 11:02; Status DC Fentanyl Citrate (fentaNYL INJ) 250 mcg STK-MED ONCE .ROUTE ; Start 05/15/16 at 11:01; Stop 05/15/16 at 11:02; Status DC Diclofenac Sodium (Dyloject Inj) 37.5 mg STK-MED ONCE IV PUSH ; Start 05/15/16 at 11:01; Stop 05/15/16 at 11:02; Status DC Dexamethasone Sodium Phosphate (Decadron Inj) 4 mg STK-MED ONCE .ROUTE ; Start 05/15/16 at 11:01; Stop 05/15/16 at 11:02; Status DC Bacitracin (Baciguent Oint) 15 applic STK-MED ONCE .ROUTE Last administered on 05/15/16at 11:41; Start 05/15/16 at 11:16; Stop 05/15/16 at 11:17; Status DC Hydromorphone HCl (Dilaudid Pf Inj) 2 mg Q4H PRN IV PUSH PAIN SCALE 6 TO 10 Last administered on 05/17/16at 07:30; Start 05/15/16 at 12:00; Stop 05/17/16 at 10:01; Status DC Oxycodone/ Acetaminophen (Percocet 7.5-325 Mg) 2 tab Q6H PRN PO PAIN SCALE 1 TO 5 Last administered on 05/17/16at 06:21; Start 05/15/16 at 12:00; Stop at 10:01; Status DC Morphine Sulfate (*morphine INJ PERIprocedure ONLY) 8 mg STK-MED ONCE .ROUTE Last administered on 05/15/16at 12:35; Start 05/15/16 at 12:35; Stop 05/15/16 at 12:36; Status DC Miscellaneous Information ALL NURSING DEPARTME... UNSCH PRN XX SEE LABEL COMMENTS; Start 05/15/16 at 13:15; Stop 05/16/16 at 13:14; Status DC Propofol (Diprivan 200 Mg/20 ml Inj) 200 mg STK-MED ONCE IV ; Start 05/15/16 at 12:00; Stop 05/16/16 at 08:14; Status DC Ondansetron HCl (Zofran Inj) 4 mg STK-MED ONCE IV PUSH ; Start 05/15/16 at 12: 00; Stop 05/16/16 at 08:14; Status DC Neostigmine Methylsulfate (Prostigmin Inj) 3 mg STK-MED ONCE IV ; Start at 12:00; Stop 05/16/16 at 08:14; Status DC Insulin Detemir (Levemir Inj) 15 units Q12HR SQ Last administered on at 07:32; Start 05/16/16 at 21:00; Stop 05/20/16 at 12:24; Status DC Hydromorphone HCl (Dilaudid Pf Inj) 1 mg Q4H PRN IV PUSH Breakthrough PAIN; Start 05/17/16 at 12:00; Stop 05/17/16 at 14:06; Status DC Hydromorphone HCl (Dilaudid) 2 mg Q4H PRN PO pain 1-5 Last administered on at 12:46; Start 05/17/16 at 10:00; Stop 05/23/16 at 11:48; Status DC Hydromorphone HCl (Dilaudid) 4 mg Q4H PRN PO pain 6-10 Last administered on at 08:56; Start 05/17/16 at 10:00; Stop 05/23/16 at 11:48; Status DC Docusate Sodium (Colace) 100 mg BID PO Last administered on 06/01/16 21:14; Start 05/17/16 at 10:00 Clindamycin HCl (Cleocin) 300 mg Q6HR PO Last administered on 06/02/16 05:49; Start 05/17/16 at 12:00 Hydromorphone HCl (Dilaudid Pf Inj) 2 mg Q4H PRN IV PUSH Breakthrough PAIN Last administered on 05/18/16at 11:30; Start 05/17/16 at 16:00; Stop 05/18/16 at 12:23; Status DC Hydromorphone HCl (Dilaudid Pf Inj) 3 mg Q4H PRN IV PUSH Breakthrough PAIN Last administered on 05/19/16at 13:09; Start 05/18/16 at 16:00; Stop 05/19/16 at 15:24; Status DC Gabapentin (Neurontin) 300 mg TID PO Last administered on 05/22/16at 08:25; Start 05/18/16 at 13:00; Stop 05/22/16 at 11:03; Status DC Hydromorphone HCl (Dilaudid Pf Inj) 1 mg Q4H PRN IV PUSH dressing changes Last administered on 05/22/16at 21:53; Start 05/18/16 at 12:30; Stop 05/24/16 at 16 :09; Status DC Hydromorphone HCl (Dilaudid Pf Inj) 2 mg Q4H PRN IV PUSH Breakthrough PAIN Last administered on 05/23/16at 02:33; Start 05/19/16 at 16:00; Stop 05/23/16 at 11:48; Status DC Morphine Sulfate (Oramorph Sr) 15 mg Q12HR PO Last administered on 05/20/16at 07:30; Start 05/19/16 at 21:00; Stop 05/20/16 at 12:12; Status DC Sodium Polystyrene Sulfonate (Kayexalate Liq) 15 gm ONCE ONCE PO Last administered on 05/20/16at 09:58; Start 05/20/16 at 08:15; Stop 05/20/16 at 08 :17; Status DC Morphine Sulfate (Oramorph Sr) 30 mg Q12HR PO ; Start 05/20/16 at 21:00; Stop 05/21/16 at 15:26; Status DC Morphine Sulfate (Oramorph Sr) 15 mg ONCE ONCE PO Last administered on at 13:43; Start 05/20/16 at 12:15; Stop 05/20/16 at 12:16; Status DC Insulin Detemir (Levemir Inj) 20 units Q12HR SQ Last administered on 06/02/16 08:28; Start 05/20/16 at 21:00 Ciprofloxacin (Cipro) 500 mg Q12HR PO Last administered on 05/28/16 07:54; Start 05/20/16 at 12:45; Stop 05/28/16 at 09:39; Status DC Lorazepam (Ativan) 1 mg ONCE ONCE PO Last administered on 05/20/16at 15:06; Start 05/20/16 at 15:00; Stop 05/20/16 at 15:01; Status DC Fentanyl (Duragesic 25 Mcg Patch.72 Hr) 1 patch Q3D TD Last administered on 05/21/16at 18:40; Start 05/21/16 at 16:00; Stop 05/23/16 at 11:53; Status DC Miscellaneous Information 1 Q3D TD ; Start 05/24/16 at 16:00; Stop 05/24/16 at 16:00; Status DC Lorazepam (Ativan Inj) 1 mg Q4H PRN IV PUSH ANXIETY; Start 05/21/16 at 15:30; Stop 05/22/16 at 11:03; Status DC Gabapentin (Neurontin) 400 mg BID PO Last administered on 05/26/16 09:50; Start 05/22/16 at 11:15; Stop 05/26/16 at 15:14; Status DC Lorazepam (Ativan Inj) 1 mg Q4H PRN PO ANXIETY Last administered on 05/24/16at 05:49; Start 05/22/16 at 11:30; Stop 05/24/16 at 17:02; Status DC Fentanyl (Duragesic 50 Mcg Patch.72 Hr) 1 patch Q3D TD Last administered on 14:47; Start 05/23/16 at 14:00 Miscellaneous Information 1 Q3D TD Last administered on 06/01/16 14:00; Start 05/26/16 at 14:00 Hydromorphone HCl (Dilaudid) 4 mg Q4H PRN PO PAIN SCALE 1 TO 6; Start at 12:00; Stop 05/24/16 at 17:02; Status DC Hydromorphone HCl (Dilaudid) 6 mg Q4H PRN PO PAIN SCALE 6 TO 8 Last administered on 05/24/16at 13:18; Start 05/23/16 at 12:00; Stop 05/24/16 at 17 :02; Status DC Hydromorphone HCl (Dilaudid Pf Inj) 1 mg Q4H PRN IV PUSH PAIN SCALE 9 TO 10 Last administered on 05/23/16at 22:20; Start 05/23/16 at 12:00; Stop 05/24/16 at 16:09; Status DC Hydromorphone HCl (Dilaudid Pf Inj) 0.2 mg Q4H PRN IV PUSH dressing changes Last administered on 05/30/16 21:44; Start 05/24/16 at 16:30 Hydromorphone HCl (Dilaudid Pf Inj) 0.5 mg Q4H PRN IV PUSH BREAKTHROUGH PAIN Last administered on 06/02/16 08:39; Start 05/24/16 at 20:00 Hydromorphone HCl (Dilaudid) 2 mg Q4H PRN PO PAIN SCALE 1 TO 6; Start at 17:30; Stop 05/30/16 at 18:52; Status DC Hydromorphone HCl (Dilaudid) 4 mg Q4H PRN PO PAIN SCALE 7 TO 8 Last administered on 05/27/16 00:46; Start 05/24/16 at 20:00; Stop 05/30/16 at 18:52 ; Status DC Furosemide (Lasix) 40 mg ONCE ONCE PO Last administered on 05/25/16 09:00; Start 05/25/16 at 08:00; Stop 05/25/16 at 08:01; Status DC Losartan Potassium (Cozaar) 50 mg Q12HR PO Last administered on 05/26/16 09:50 ; Start 05/25/16 at 21:00; Stop 05/26/16 at 15:23; Status DC Furosemide (Lasix) 20 mg DAILY PO Last administered on 06/02/16 08:26; Start at 09:00 Gabapentin (Neurontin) 300 mg TID PO Last administered on 05/26/16 17:53; Start 05/26/16 at 18:00; Stop 05/27/16 at 08:30; Status DC Methocarbamol (Robaxin) 750 mg Q8HR PO Last administered on 06/02/16 05:45; Start 05/26/16 at 22:00 Gabapentin (Neurontin) 300 mg BID PO Last administered on 06/02/16 08:25; Start 05/27/16 at 09:00 Ciprofloxacin (Cipro) 500 mg Q18H PO Last administered on 06/01/16 21:14; Start 05/28/16 at 09:38 Isosorbide Dinitrate (Isordil) 5 mg TIDAC PO Last administered on 06/02/16 08: 25; Start 05/29/16 at 17:00 Acetaminophen (Tylenol) 650 mg Q6H PRN PO PAIN SCALE 1 TO 2; Start 05/30/16 at 19:00 Oxycodone/ Acetaminophen (Percocet 5-325 Mg) 1 tab Q6H PRN PO PAIN SCALE 3 TO 5; Start 05/30/16 at 18:45 Oxycodone/ Acetaminophen (Percocet 10-325 Mg) 1 tab Q6H PRN PO PAIN 6-10 Last administered on 06/02/16 03:34; Start 05/30/16 at 19:00 A/P Assessment and Plan A/P Bilateral nonhealing venous stasis ulcers/ Bilateral lower extremity cellulitis Failure of outpatient treatment. Vascular surgery evaluated. Not able to do contrast study secondary to acute kidney injury on admission. Follow-up as an outpatient and no intervention planned per vascular surgery. Status post debridement by Dr. Colon on 05/15. Palliative care consult appreciated. Referral made to wound care to consider hyperbaric treatment per patient's request upon discharge today. - Continue pain control with a bowel regimen. will change the dilaudid for breakthrough pain. - completed the course of antibiotics- d/w . - Continue wound care per podiatry. - 05/23. Discussed with podiatry by previous hospitalist. Main problem is bilateral lower extremity edema. BNP is not markedly elevated, however patient does have ejection fraction measured 35% earlier this year. It would be helpful to order diuretics, however renal function is very poor at the moment and patient didn't tolerate ARBs. Continue to monitor. 05/24-Echocardiogram with continued ejection fraction 30%. Consulted cardiology , Dr. Garcias currently following and recommended consideration isosorbide and hydralazine as patient cannot tolerate Lasix or ARB due to acute kidney injury. Acute kidney injurymuch better after initially holding diuretics and ARB; patient renal function seems stable on low-dose diuretics after restarting. Pain control - continue with percocet- dilaudid for breakthrough pain. Acute kidney injury. Much improvedstopped NSAIDs. Appreciate nephrology consultation. . Creatinine has stabilized. - Continue to hold losartan, Lasix has been restarted. Avoid nephrotoxins. - follow up with nephrology. Cardiomyopathy Ejection fraction 30%. Has lower extremity edema. - Continue Coreg, Dr. Garcias recommended isosorbide and started low dose of this medication. Diabetes mellitus, insulin-dependent continue to monitor with sliding scale insulin coverage -Is on long-acting insulin at home. - Patient is on glargine 20 units twice daily at home. - Continue Levemir 20 units twice daily. - Glucose level acceptable. Continue monitor. Hyponatremia. Resolved. Overall stable. Asymptomatic. VTE Prophylaxis. Subcutaneous heparin. Discharge Planning dc to SNF today. f/u by pcp,vascular surgery,podiatry and cardiology. see med list. d/w the patient. time spent 35 min. Conrad Clancy MD Jun 02, 2016 10:06
--- NOTE | 2016-06-02 10:14 | HHI.DCPOC ---
Discharge Care Plan Diagnosis: (1) Ulcer of heel and midfoot Your Health Problems Are: Skin Breakdown Goals to Promote Your Health * To prevent worsening of your condition and complications * To maintain your health at the optimal level Directions to Meet Your Goals Take your medications as prescribed Follow your dietary instruction Follow activity as directed Keep your appointments as scheduled Take your immunizations and boosters as scheduled If your symptoms worsen call your PCP, if no PCP go to Urgent Care Center or Emergency Room Smoking is Dangerous to Your Health. Avoid second hand smoke Call the 24-hour hour crisis hotline for domestic abuse at Conrad Clancy MD Jun 02, 2016 10:14
--- NOTE | 2016-06-02 10:15 | HHI.DS ---
Discharge Summary Admission Date May 13, 2016 at 18:35 Discharge Date: Jun 02, 2016 Admitting Diagnosis BLE cellulitis; diabetic ulcers; ARF (1) Cellulitis and abscess of lower extremity ICD Code: L02.419 Diagnosis: Principal (2) Acute kidney failure, unspecified ICD Code: N17.9 Diagnosis: Principal Procedures 05/15 bilateral lower extremity wound debridement Brief History - From Admission History from patient, ER notes, and review of medical records. Patient reported that she came to the hospital because her left lower extremity has been getting worse with swelling, weeping discharge with foul smelling discharge. She stated that she has had treatments as outpatient and nothing was really improving and therefore finally her doctor had suggested her to come to hospital as well. She states her symptoms started a week before [place] when she was bit by some insight in that left lower extremity. She initially tried to take care of the wound that resulted from this bite by putting some towels at home and doing self dressing. However this got worse and therefore about 10 days later, she presented to [place] emergency room. She was admitted at that time to our hospital and was treated with IV antibiotics. She states that she was given vancomycin and Zosyn at that time. She was then discharged on clindamycin. She reports she was also seen by wound care nurse during that hospitalization and she has had Unna boots placed bilateral lower extremity. However the pain from this Unna boots was quite severe on the left side that it was actually removed within 24 hours. Her right Unna boot was there for a few days although there was minimal symptoms on the right at that time. She reports that after this 24 hours of treatment with Unna boot on her left lower extremity, she did not really receive any follow-up wound care. As an outpatient, she was also given Bactrim by her primary doctor. She reports that no matter which antibiotic she was on, the symptoms of the wounds were not really improving. Now that discharge has become more foul- smelling and she is worried that it might be staph infection. The pain from these ulcers are also quite excruciating that she is not eating or drinking well at home. She reports she has been dehydrated because of these. However denies nausea or vomiting. It's mainly sensation of burning and pain from the skin rather than joint pains. She states she was on Narco at home and this was not working at all. Therefore she took multiple doses of Advil/ibuprofen/aspirin on top of Narco to control her pain. She states she usually would be sitting up at night and rocking herself crying because of these severe pains. Her renal function is noted to be acutely worsens today. She denies recent contrast administrations. She states that her last contrast study was about a year ago and at that time she actually went into flash pulmonary edema because of contrast. Since then she never had any workup that required contrast studies. Patient reports she believes she has peripheral arterial disease. She has remote history of smoking. However quit about 15 years ago. She has not been seen by infectious disease doctor or vascular surgeon for these wounds. She was receiving home health care visit appointment in the past 2 weeks. However it was mainly wet-to-dry dressing. CBC/BMP: 05/29/16 0752 05/30/16 0558 Imaging Last Impressions Shoulder X-Ray 05/27/16 0000 Signed Impressions: Service Date/Time: Friday, May 27, 2016 20:33 - CONCLUSION: Unremarkable limited examination of the right shoulder. Alfredo Etienne MD Renal Ultrasound 05/14/16 1457 Signed Impressions: Service Date/Time: Saturday, May 14, 2016 15:20 - CONCLUSION: 1. Increased echogenicity of the kidneys suggesting underlying medical renal disease. No findings to indicate renal obstruction. Jose Rogers MD Lower Extremity Ultrasound 05/14/16 0948 Signed Impressions: Service Date/Time: Saturday, May 14, 2016 14:30 - CONCLUSION: 1. No DVT identified. 2. No abscess seen in the subcutaneous soft tissues Jose Rogers MD Foot X-Ray 05/14/16 0000 Signed Impressions: Service Date/Time: Saturday, May 14, 2016 19:35 - CONCLUSION: 1. Extensive soft tissue swelling with no evidence to suggest osteomyelitis. 2. There are no radiopaque foreign bodies. Janes Danielson MD Chest X-Ray 05/13/16 1632 Signed Impressions: Service Date/Time: Friday, May 13, 2016 17:23 - CONCLUSION: No acute disease. Shamar Banuelos MD PE at Discharge GENERAL: This is a well-nourished, well-developed patient, in no apparent distress. CARDIOVASCULAR: Regular rate and regular rhythm without murmurs, gallops, or rubs. RESPIRATORY: Clear to auscultation. Breath sounds equal bilaterally. No wheezes , rales, or rhonchi. GASTROINTESTINAL: Abdomen soft, non-tender, nondistended. Normal, active bowel sounds MUSCULOSKELETAL: both legs covered with clean dressing. NEURO: Alert & Oriented x4 to person, place, time, situation. Moves all ext x4 Hospital Course Bilateral nonhealing venous stasis ulcers/ Bilateral lower extremity cellulitis Failure of outpatient treatment. Vascular surgery evaluated. Not able to do contrast study secondary to acute kidney injury on admission. Follow-up as an outpatient and no intervention planned per vascular surgery. Status post debridement by Dr. Colon on 05/15. Palliative care consult appreciated. Referral made to wound care to consider hyperbaric treatment per patient's request upon discharge today. - Continue pain control with a bowel regimen. will change the dilaudid for breakthrough pain. - treated with Abx. - Continue wound care per podiatry. - 05/23. Discussed with podiatry by previous hospitalist. Main problem is bilateral lower extremity edema. BNP is not markedly elevated, however patient does have ejection fraction measured 35% earlier this year. It would be helpful to order diuretics, however renal function is very poor at the moment and patient didn't tolerate ARBs. Continue to monitor. 05/24-Echocardiogram with continued ejection fraction 30%. Consulted cardiology , Dr. Garcias currently following and recommended consideration isosorbide and hydralazine as patient cannot tolerate Lasix or ARB due to acute kidney injury. Acute kidney injurymuch better after initially holding diuretics and ARB; patient renal function seems stable on low-dose diuretics after restarting. Pain control - continue with percocet- dilaudid for breakthrough pain. Acute kidney injury. Much improvedstopped NSAIDs. Appreciate nephrology consultation. . Creatinine has stabilized. - Continue to hold losartan, Lasix has been restarted. Avoid nephrotoxins. - follow up with nephrology. Cardiomyopathy Ejection fraction 30%. Has lower extremity edema. - Continue Coreg, Dr. Garcias recommended isosorbide and started low dose of this medication. Diabetes mellitus, insulin-dependent continue to monitor with sliding scale insulin coverage -Is on long-acting insulin at home. - Patient is on glargine 20 units twice daily at home. - Continue Levemir 20 units twice daily. - Glucose level acceptable. Continue monitor. Hyponatremia. Resolved. Overall stable. Asymptomatic. VTE Prophylaxis. Subcutaneous heparin. Pt Condition on Discharge: Good Discharge Disposition: Discharge to SNF Discharge Time: > 30 minutes Discharge Instructions DIET: Follow Instructions for: Heart Healthy Diet, Diabetic Diet Activities you can perform: Regular-No Restrictions Follow up Referrals: Appointment for Follow Up with Adan White DO Cardiology PCP Follow-up Podiatry SNF/[facility]/ with [facility] New Medications: Ciprofloxacin (Cipro) 500 Mg Tab 500 MG PO Q18H Infection #5 TAB Clindamycin (Cleocin) 150 Mg Cap 300 MG PO Q6HR Infection #5 CAP Fentanyl Patch 72 HR (Duragesic Patch 72 HR) 50 Mcg/Hr Patch 1 PATCH TD Q3D Pain Management #2 PATCH Furosemide (Furosemide) 20 Mg Tab 20 MG PO DAILY decrease fluids #30 TAB Gabapentin (Neurontin) 300 Mg Cap 300 MG PO BID neuropathy #60 CAP Insulin Detemir Inj (Levemir Inj) 1,000 unit/ 10 ML Vial 20 UNITS SQ Q12HR Blood Sugar Management #1 INJECTION Isosorbide Dinitrate (Isordil Titradose) 5 Mg Tab 5 MG PO TIDAC manage CHF #30 TAB Continued Medications: Bupropion HCl ER 12 HR (Wellbutrin SR 12 HR) 150 Mg Tab 150 MG PO Q12HR Control Depression Ref 0 TAB Carvedilol (Carvedilol) 25 Mg Tab 25 MG PO BID #[address] (Cymbalta DR) 30 Mg Capdr 30 MG PO BID #30 Ref 0 CAP Furosemide (Lasix) 20 Mg Tab 20 MG PO DAILY #30 Ref 0 TAB Insulin Lispro (Human) Inj (Humalog Inj) 1,000 Unit/10 Ml Vial 5-25 UNITS SQ DIRECTED Max dose at bedtime:( )units; sugars < 70,(0)units; sugars 150-199,(5)units; sugars 200-249,(10)units; sugars 250-299,(15)units; sugars 300-349,(20)units; sugars more than 349,(25)units. Blood Sugar Management #1 Ref 0 VIAL Lactobacillus Acidophilus (Lactinex) 1 Chew 1 TAB CHEW TID Nutritional Supplement #90 Ref 0 TAB Levothyroxine (Levothyroxine) 175 Mcg Tab 175 MCG PO DAILY TAB Liothyronine (Liothyronine) 5 Mcg Tab 5 MCG PO DAILY Thyroid Supplement #30 Ref 0 TAB Oxycodone-Acetaminophen (Oxycodone-Acetaminophen) 5-325 mg Tab 1 TAB PO Q4H PRN PAIN 3-5 #10 TAB (This prescription has been renewed) Discontinued Medications: Clindamycin (Clindamycin) 300 Mg Cap 450 MG PO Q6H Infection #40 Ref 0 CAP Insulin Glargine Inj (Lantus Inj) 1,000 Unit/10 Ml Vial 22 UNITS SQ BID Blood Sugar Management Ref 0 VIAL Naproxen (Naprosyn) 250 Mg Tab 250 MG PO BID Pain #60 Ref 0 TAB Conrad Clancy MD Jun 02, 2016 10:15
[2016-06-02] MEDS ORDERED: OXYC1TAB36 PO (10:16)
[2016-06-02 12:10] VITALS: BP 139/65; PULSE 73; RESP 18; TEMP 97.9; O2SAT 94
--- NOTE | 2016-06-02 12:55 | PD.VS.PN ---
Subjective Subjective/Hospital Course Hx of nonhealing wounds bilateral lower extremities. Patient does not want dressings removed at this time. Legs hanging down, pt is sitting on the side of the bed Pt states she is going to rehab today and is unsure if she will follow-up Objective Vitals/I&O Date Time Temp Pulse Resp B/P Pulse Ox O2 Delivery O2 Flow Rate FiO2 06/02/16 12:10 97.9 73 18 139/65 94 06/02/16 11:46 Room Air 06/02/16 08:07 97.8 74 18 136/60 96 06/02/16 05:49 95.0 77 16 152/68 97 06/02/16 00:13 97.9 76 16 121/77 96 06/01/16 21:10 Room Air 06/01/16 20:37 98.3 76 18 141/85 94 06/01/16 16:00 97.9 77 18 127/58 96 06/02/16 06/02/16 06/02/16 07:00 15:00 23:00 Output Total 0 ml Balance 0 ml Physical Exam pt alert and oriented times 3 does not appear in any acute distress resp even, bilat lower extremity swelling and redness noted Assessment and Plan Plan 60 year old morbidly obese female hx of bilateral leg wounds. Difficult to assess based on inability to examine. Would recommend controlling leg swelling by leg elevation and possible diuresis. Patient non-compliant with leg elevation. Difficult to assess arterial status as patient has hx of flash pulmonary edema with previous exposure to contrast and was instructed never to have contrast administered again. In addition, patient with renal insufficiency. Patient could not tolerate non-invasive arterial studies as she would not be able to tolerate inflation of BP cuffs. Continue with hospice for pain management. No vascular intervention to offer at this time. Pt stated she is going to be D/C's today to a rehab center Pt has a follow-up appointment for outpatient clinic scheduled for JUN 27 ( Thursday) at 1045 with AMILCAR's, discussed with patient, daughter, and son. Pt appears reluctant to follow-up Nasrin Carl Jun 02, 2016 12:55
== END 2016-06-02 14:05 | DRG 300 ==
LOC: NEPA 16:03 → NEDA 18:35 → N04A 21:31 → N04B 05-24 19:44
PROVIDERS: ADMIT Internal Medicine; ATTEND Internal Medicine
PROC: 0HDMXZZ Extraction of Right Foot Skin, External Approach (ICD-10-PCS; 2016-05-15)
PROC: 0HDLXZZ Extraction of Left Lower Leg Skin, External Approach (ICD-10-PCS; principal; 2016-05-15 11:08)
DX: I87.2 Venous insufficiency (chronic) (peripheral) (principal); L97.819 Non-pressure chronic ulcer of other part of right lower leg with unspecified severity; N17.9 Acute kidney failure, unspecified; I96 Gangrene, not elsewhere classified; E87.2 Acidosis; I42.9 Cardiomyopathy, unspecified; E11.40 Type 2 diabetes mellitus with diabetic neuropathy, unspecified; L03.115 Cellulitis of right lower limb; L03.116 Cellulitis of left lower limb; L97.219 Non-pressure chronic ulcer of right calf with unspecified severity; E87.1 Hypo-osmolality and hyponatremia; L97.409 Non-pressure chronic ulcer of unspecified heel and midfoot with unspecified severity; L97.229 Non-pressure chronic ulcer of left calf with unspecified severity; E11.621 Type 2 diabetes mellitus with foot ulcer; E66.01 Morbid (severe) obesity due to excess calories; I50.9 Heart failure, unspecified; L97.529 Non-pressure chronic ulcer of other part of left foot with unspecified severity; I83.009 Varicose veins of unspecified lower extremity with ulcer of unspecified site; I08.1 Rheumatic disorders of both mitral and tricuspid valves; E11.65 Type 2 diabetes mellitus with hyperglycemia; Z79.4 Long term (current) use of insulin; E03.9 Hypothyroidism, unspecified; K44.9 Diaphragmatic hernia without obstruction or gangrene; I10 Essential (primary) hypertension; L97.519 Non-pressure chronic ulcer of other part of right foot with unspecified severity; F32.9 Major depressive disorder, single episode, unspecified; Z87.891 Personal history of nicotine dependence; E86.0 Dehydration; Z91.041 Radiographic dye allergy status; Z51.5 Encounter for palliative care; F41.9 Anxiety disorder, unspecified; E11.622 Type 2 diabetes mellitus with other skin ulcer; T39.395A Adverse effect of other nonsteroidal anti-inflammatory drugs [NSAID], initial encounter; Z86.19 Personal history of other infectious and parasitic diseases; M25.511 Pain in right shoulder
CPT/HCPCS: 71010; 73030; 73630; 76775; 76937; 80048; 80053; 80069; 80202; 81001; 82570; 82948; 83036; 83605; 83735; 83880; 84100; 84300; 85007; 85025; 85027; 85730; 87040; 87086; 93005; 93306; 93971; 96365; 96375; J0131; J0692; J1100; J1170; J1644; J1815; J2020; J2060; J2250; J2270; J2405; J2543; J2710; J3010; J3370; J7050

== ENCOUNTER 2016-06-16 13:00 | Inpatient (IN) | payer OTHER ==
[2016-06-16] VITALS (7 sets, daily range): BP systolic 127–164; BP diastolic 61–86; PULSE 72–81; RESP 15–20; TEMP 97.7–98.1; O2SAT 93–100
[~2016-06-16] VITALS: Ht 170.2 cm; Wt 110.2 kg
[~2016-06-16 13:00] MED LIST changes: -CLIN1CAP6 PO; +FENT50T TD; +FURO20TA PO; -GETGO ROLLING W1 MI1; +ISOS1TAB PO; -LANTUS2P SQ; +LEVEMIR SQ; -LOSA100T PO; -NAPR250T57 PO; +NEUR300C PO; +OXYC1TAB36 PO
[2016-06-16 13:39] LABS: AUTOMATED NEUTROPHIL # 11.2 TH/MM3 (1.8-7.7); BASOPHIL # 0.1 TH/MM3 (0-0.2); BASOPHIL % 0.8 % (0.0-2.0); EOSINOPHIL # 0.2 TH/MM3 (0-0.4); EOSINOPHIL % 1.1 % (0.0-4.0); HEMATOCRIT 25.8 % (35.0-46.0); HEMO FLAGS AUTO DIFF; LYMPH % 9.8 % (9.0-44.0); LYMPHOCYTE # 1.4 TH/MM3 (1.0-4.8); MEAN CELL VOLUME 76.8 FL (80.0-100.0); MEAN CORPUSCULAR HEMOGLOBIN 24.7 PG (27.0-34.0); MEAN CORPUSCULAR HGB CONC 32.1 % (32.0-36.0); MONO % 9.6 % (0.0-8.0); NEUT % 78.7 % (16.0-70.0); PLATELET COUNT 469 TH/MM3 (150-450); RED BLOOD COUNT 3.36 MIL/MM3 (4.00-5.30); RED CELL DISTRIBUTION WIDTH 15.5 % (11.6-17.2); WHITE BLOOD COUNT 14.2 TH/MM3 (4.0-11.0)
[2016-06-16 14:02] LABS: POTASSIUM 4.7 MEQ/L (3.5-5.1)
[2016-06-16 14:14] LABS: EOSINOPHILS 2 % (0-4); MYELOCYTES 1 % (0-0); NEUTROPHIL # MANUAL DIFF 11.4 TH/MM3 (1.8-7.7); PLATELET ESTIMATE SMEAR HIGH (NORMAL); PLATELET MORPHOLOGY NORMAL (NORMAL); POLYS (SEG NEUTROPHILS) 79 % (16-70); SCAN/DIFF FINAL DIFF MANUAL; WBC DIFF SAMPLE 100
[2016-06-16] MEDS ORDERED: VANCOMYCIN INJ 1,000 MG in SODIUM CHLOR 0.9% 250 ML INJ 250 ML IV STA (14:30)
[2016-06-16] MEDS ORDERED: PIPERACIL-TAZO 4.5 GM PREMIX 100 ML IV STA (14:30)
--- NOTE | 2016-06-16 14:41 | PD ---
HPI Chief Complaint: Altered Mental Status Time Seen by Provider: 14:29 Travel History International Travel<30 days: No Contact w/Intl Traveler<30days: No Traveled to known affect area: No History of Present Illness HPI 61-year-old female with history of diabetes, recent admission for cellulitis, currently in a residential facility, presents to the ER today sent in by facility because she has been more disoriented. In addition, it appears that she had a vascular study done showing occlusion of the arteries of her left leg. According to patient, they had talked to Dr. White about was going on. Patient is fairly agitated and confused. Modifying Factors: None Associated Signs & Symptoms: Increased disorientation, bilateral leg swelling, left leg arterial occlusion Risk Factors: Diabetic, recent leg cellulitis PFSH Past Medical History Hx Anticoagulant Therapy: No Anxiety: Yes Depression: No Heart Rhythm Problems: No Cancer: No Cardiovascular Problems: Yes (Low EF) High Cholesterol: No Chest Pain: No Congestive Heart Failure: No Diabetes: Yes Diminished Hearing: No Endocrine: Yes GERD: No Genitourinary: No Hiatal Hernia: Yes Hypertension: Yes Musculoskeletal: No Neurologic: No Psychiatric: Yes Reproductive: No Respiratory: No Integumentary: Yes (Chronic wounds to LE's) Immunizations Current: Yes Thyroid Disease: Yes (Hypo-) Ulcer: No Menopausal: Yes : 2 Para: 2 Past Surgical History Abdominal Surgery: Yes (Umb. hernia repair w/ mesh, cholicystectomy) Cholecystectomy: Yes Gynecologic Surgery: Yes ((L) oophorectomy ) Other Surgery: Yes Social History Alcohol Use: No Tobacco Use: No Substance Use: No Allergies-Medications (Allergen,Severity, Reaction): Coded Allergies: Contrast Media (Verified Allergy, Severe, Flash pulmonary edema , 06/16/16) PEANUTS (Verified Allergy, Severe, rash, 06/16/16) Reported Meds & Prescriptions Reported Meds & Active Scripts Active Oxycodone-Acetaminophen 10-325 mg Tab 1 Tab PO Q4HR PRN Duragesic Patch 72 HR (Fentanyl) 50 Mcg/Hr Patch 1 Patch TD Q3D Oxycodone-Acetaminophen 5-325 mg Tab 1 Tab PO Q4H PRN Isordil Titradose (Isosorbide Dinitrate) 5 Mg Tab 5 Mg PO TIDAC Levemir Inj (Insulin Detemir) 1,000 unit/ 10 ML Vial 20 Units SQ Q12HR Neurontin (Gabapentin) 300 Mg Cap 300 Mg PO BID Furosemide 20 Mg Tab 20 Mg PO DAILY Lactinex (Lactobacillus Acidophilus) 1 Chew 1 Tab CHEW TID Reported Levothyroxine (Levothyroxine Sodium) 175 Mcg Tab 175 Mcg PO DAILY Liothyronine (Liothyronine Sodium) 5 Mcg Tab 5 Mcg PO DAILY Lasix (Furosemide) 20 Mg Tab 20 Mg PO DAILY Cymbalta DR (Duloxetine HCl) 30 Mg Capdr 30 Mg PO BID Wellbutrin SR 12 HR (Bupropion HCl) 150 Mg Tab 150 Mg PO Q12HR Carvedilol 25 Mg Tab 25 Mg PO BID Humalog Inj (Insulin Human Lispro) 1,000 Unit/10 Ml Vial 5-25 Units SQ DIRECTED Max dose at bedtime:( )units; sugars < 70,(0)units; sugars 150-199,(5)units; sugars 200-249,(10)units; sugars 250-299,(15)units; sugars 300-349,(20)units; sugars more than 349,(25)units. Review of Systems ROS Limitations: Altered Mental Status Physical Exam Narrative GENERAL: Well-nourished, well-developed anxious elderly white female patient who is tearful and agitated on exam. SKIN: Warm and dry. HEAD: Normocephalic. EYES: No scleral icterus. No injection or drainage. NECK: Supple, trachea midline. CARDIOVASCULAR: Regular rate and rhythm without murmurs, gallops, or rubs. RESPIRATORY: Breath sounds equal bilaterally. No accessory muscle use. GASTROINTESTINAL: Abdomen soft, non-tender, nondistended. MUSCULOSKELETAL: No cyanosis. Bilateral pitting edema the legs. Notable shallow multiple small subcentimeter ulcerated regions on her left leg with dark eschar, surrounding erythema. BACK: Nontender without obvious deformity. No CVA tenderness. Data Data Last Documented VS Vital Signs Date Time Temp Pulse Resp B/P Pulse Ox O2 Delivery O2 Flow Rate FiO2 06/16/16 14:22 97 06/16/16 13:08 97.7 74 15 164/69 Orders Iv Access Insert/Monitor (06/16/16 13:14) Ecg Monitoring (06/16/16 13:14) Oxygen Administration (06/16/16 13:14) Complete Blood Count With Diff (06/16/16 13:14) Basic Metabolic Panel (Bmp) (06/16/16 13:14) Lactic Acid Sepsis Protocol (06/16/16 14:30) Urinalysis - C+S If Indicated (06/16/16 14:30) Blood Culture (06/16/16 14:30) Chest, Single Ap (06/16/16 14:30) Blood Glucose (06/16/16 14:30) Oximetry (06/16/16 14:30) Piperacil-Tazo 4.5 Gm Premix (Zosyn 4.5 (06/16/16 14:30) Vancomycin Inj (Vancomycin Inj) (06/16/16 14:30) Lorazepam Inj (Ativan Inj) (06/16/16 15:00) Sodium Chlor 0.9% 1000 Ml Inj (Ns 1000 M (06/16/16 15:00) Hydromorphone Pf Inj (Dilaudid Pf Inj) (06/16/16 15:15) Ondansetron Inj (Zofran Inj) (06/16/16 15:15) Consult Vascular Surgery (06/16/16 ) Labs Laboratory Tests Test 06/16/16 13:05 White Blood Count 14.2 TH/MM3 Red Blood Count 3.36 MIL/MM3 Hemoglobin 8.3 GM/DL Hematocrit 25.8 % Mean Corpuscular Volume 76.8 FL Mean Corpuscular Hemoglobin 24.7 PG Mean Corpuscular Hemoglobin 32.1 % Concent Red Cell Distribution Width 15.5 % Platelet Count 469 TH/MM3 Mean Platelet Volume 6.5 FL Neutrophils (%) (Auto) 78.7 % Lymphocytes (%) (Auto) 9.8 % Monocytes (%) (Auto) 9.6 % Eosinophils (%) (Auto) 1.1 % Basophils (%) (Auto) 0.8 % Neutrophils # (Auto) 11.2 TH/MM3 Lymphocytes # (Auto) 1.4 TH/MM3 Monocytes # (Auto) 1.4 TH/MM3 Eosinophils # (Auto) 0.2 TH/MM3 Basophils # (Auto) 0.1 TH/MM3 CBC Comment AUTO DIFF Differential Total Cells 100 Counted Neutrophils % (Manual) 79 % Lymphocytes % 10 % Monocytes % 8 % Eosinophils % 2 % Neutrophils # (Manual) 11.4 TH/MM3 Myelocytes 1 % Differential Comment FINAL DIFF MANUAL Platelet Estimate HIGH Platelet Morphology Comment NORMAL Sodium Level 127 MEQ/L Potassium Level 4.7 MEQ/L Chloride Level 91 MEQ/L Carbon Dioxide Level 27.0 MEQ/L Anion Gap 9 MEQ/L Blood Urea Nitrogen 36 MG/DL Creatinine 1.41 MG/DL Estimat Glomerular Filtration 38 ML/MIN Rate Random Glucose 177 MG/DL Calcium Level 8.4 MG/DL MDM Medical Decision Making Medical Screen Exam Complete: Yes Emergency Medical Condition: Yes Medical Record Reviewed: Yes Interpretation(s) Laboratory Tests Test 06/16/16 13:05 White Blood Count 14.2 TH/MM3 (4.0-11.0) Red Blood Count 3.36 MIL/MM3 (4.00-5.30) Hemoglobin 8.3 GM/DL (11.6-15.3) Hematocrit 25.8 % (35.0-46.0) Mean Corpuscular Volume 76.8 FL (80.0-100.0) Mean Corpuscular Hemoglobin 24.7 PG (27.0-34.0) Platelet Count 469 TH/MM3 (150-450) Mean Platelet Volume 6.5 FL (7.0-11.0) Neutrophils (%) (Auto) 78.7 % (16.0-70.0) Monocytes (%) (Auto) 9.6 % (0.0-8.0) Neutrophils # (Auto) 11.2 TH/MM3 (1.8-7.7) Monocytes # (Auto) 1.4 TH/MM3 (0-0.9) Neutrophils % (Manual) 79 % (16-70) Neutrophils # (Manual) 11.4 TH/MM3 (1.8-7.7) Myelocytes 1 % (0-0) Platelet Estimate HIGH (NORMAL) Sodium Level 127 MEQ/L (136-145) Chloride Level 91 MEQ/L (98-107) Blood Urea Nitrogen 36 MG/DL (7-18) Creatinine 1.41 MG/DL (0.50-1.00) Estimat Glomerular Filtration 38 ML/MIN (>89) Rate Random Glucose 177 MG/DL (74-106) Calcium Level 8.4 MG/DL (8.5-10.1) Differential Diagnosis Bilateral leg swelling, left arterial occlusion, disorientationmetabolic issues versus sepsis versus delirium Narrative Course Initial lab work shows significant leukocytosis and there is concern for worsening sepsis and left leg cellulitis. IV antibiotics were initiated in the ER. Patient has arterial ultrasounds done from residential from the that shows left leg arterial occlusions. Patient's family states that they had talked to Dr. White regarding this patient and at this point, the case was discussed with him and he states he would like the patient to be medically admitted and he will see the patient as a consultation. Case is then discussed with Dr. Larson for admission. Diagnosis Primary Impression: Cellulitis of left lower extremity Additional Impression: DM (diabetes mellitus), type 2, uncontrolled, periph vascular complic Admitting Information Admitting Physician Requests: Admit Cole Yadav MD Jun 16, 2016 14:41
[2016-06-16] MEDS ORDERED: SODIUM CHLOR 0.9% 1000 ML INJ 1,000 ML IV ONE (15:00)
[2016-06-16] MEDS ORDERED: LORazepam 2 MG/ML VIAL IV PUSH ONE (15:00)
[2016-06-16] MEDS ORDERED: HYDROmorphone HCL PF 1 MG/ML VIAL IV PUSH ONE (15:15)
[2016-06-16] MEDS ORDERED: ONDANSETRON HCL 4 MG/2 ML VIAL IV PUSH ONE (15:15)
--- NOTE | 2016-06-16 15:33 | RADRPT ---
EXAM DATE/TIME: 06/16/2016 14:53 [facility] COMPARISON: SHOULDER RIGHT LTD (2VWS), May 27, 2016, 20:33. INDICATIONS : Unhealing wounds bilateral lower extremities. MEDICAL HISTORY : Hypothyroidism. Hypertension. hernia SURGICAL HISTORY : oopherectomy hernia repain ENCOUNTER: Initial ACUITY: 1 day PAIN SCORE: 10/10 LOCATION: Bilateral lowwer extremities FINDINGS: There is mild cardiomegaly. The lungs are clear. The bony structures are grossly intact. CONCLUSION: 1. No acute cardiopulmonary findings. Jose Rogers MD on June 16, 2016 at 15:32 Board Certified Radiologist. This report was verified electronically.
[2016-06-16] MEDS ORDERED: ACETAMINOPHEN 325 MG TAB PO PRN (16:00)
[2016-06-16] MEDS ORDERED: GLUCAGON 1 MG/ML VIAL OTHER PRN (16:00)
[2016-06-16] MEDS: INSULIN ASPART SUPPLEMENTAL SCALE SQ SCH ×2 (16:00→21:35)
[2016-06-16] MEDS ORDERED: DEXTROSE 50% IN WATER 50 ML VIAL(D50) IV PUSH PRN (16:00)
[2016-06-16] MEDS ORDERED: Vancomycin Consult Pharmacy 1 EA OTHER SCH (16:00)
[2016-06-16] MEDS ORDERED: ONDANSETRON HCL 4 MG/2 ML VIAL IV PUSH PRN (16:00)
[2016-06-16] MEDS ORDERED: Custom Consult Pharmacy 1 EA OTHER SCH (16:00)
--- NOTE | 2016-06-16 16:01 | HHI.HP ---
[facility] Primary Care Physician Non-Staff Admission Diagnosis left leg cellulitis/sepsis/left leg arterial occlusion Diagnoses: (1) Cellulitis of left lower extremity Diagnosis: Principal (2) PVD (peripheral vascular disease) Diagnosis: Principal Chief Complaint: pain of both legs Travel History International Travel<30 Days: No Contact w/Intl Traveler <30 Da: No Traveled to Known Affected Are: No History of Present Illness patient is a 61 y/o female, known to me from previous admission, with history of cellulitis of legs, PVD, diabetes and cardiomyopathy presented to ER with worsening pain and erythema over both legs. she denies any fever, chills or night sweats. she says that she's supposed to see the vascular surgery as outpatient follow-up. she says that the pain got worse to the extent that she wasn't able to walk. Review of Systems Constitutional: DENIES: Fever, Weight loss, Chills, Night Sweats Eyes: DENIES: Blurred vision, Diplopia, Vision loss, Double Vision Ears, nose, mouth, throat: DENIES: Tinnitus, Vertigo, Throat pain, Epistaxis Respiratory: DENIES: Apneas, Cough, Snoring, Wheezing, Hemoptysis, Sputum production, Shortness of breath Cardiovascular: DENIES: Chest pain, Palpitations, Syncope, Dyspnea on Exertion , PND, Lower Extremity Edema, Orthopnea, Claudication Gastrointestinal: DENIES: Abdominal pain, Black stools, Bloody stools, Constipation, Diarrhea, Nausea, Vomiting, Difficulty Swallowing, Anorexia Genitourinary: DENIES: Urinary frequency, Urgency, Hematuria, Dysuria Musculoskeletal: COMPLAINS OF: Joint pain (both legs), DENIES: Muscle aches, Stiffness, Joint Swelling Integumentary: DENIES: Rash Neurologic: DENIES: Abnormal gait, Headache, Localized weakness, Paresthesias, Seizures, Speech Problems, Tremor, Poor Balance Psychiatric: DENIES: Anxiety, Confusion, Mood changes, Depression, Hallucinations, Agitation, Suicidal Ideation, Homicidal Ideation, Delusions Past Family Social History Past Medical History PVD diabetes hypertension cardiomyopathy Past Surgical History oophorectomy cholecystectomy Reported Medications Oxycodone-Acetaminophen 10-325 mg Tab 1 Tab PO Q4HR PRN Duragesic Patch 72 HR (Fentanyl) 50 Mcg/Hr Patch 1 Patch TD Q3D Oxycodone-Acetaminophen 5-325 mg Tab 1 Tab PO Q4H PRN Isordil Titradose (Isosorbide Dinitrate) 5 Mg Tab 5 Mg PO TIDAC Levemir Inj (Insulin Detemir) 1,000 unit/ 10 ML Vial 20 Units SQ Q12HR Neurontin (Gabapentin) 300 Mg Cap 300 Mg PO BID Furosemide 20 Mg Tab 20 Mg PO DAILY Lactinex (Lactobacillus Acidophilus) 1 Chew 1 Tab CHEW TID Levothyroxine (Levothyroxine Sodium) 175 Mcg Tab 175 Mcg PO DAILY Liothyronine (Liothyronine Sodium) 5 Mcg Tab 5 Mcg PO DAILY Lasix (Furosemide) 20 Mg Tab 20 Mg PO DAILY Cymbalta DR (Duloxetine HCl) 30 Mg Capdr 30 Mg PO BID Wellbutrin SR 12 HR (Bupropion HCl) 150 Mg Tab 150 Mg PO Q12HR Carvedilol 25 Mg Tab 25 Mg PO BID Humalog Inj (Insulin Human Lispro) 1,000 Unit/10 Ml Vial 5-25 Units SQ DIRECTED Max dose at bedtime:( )units; sugars < 70,(0)units; sugars 150-199,(5)units; sugars 200-249,(10)units; sugars 250-299,(15)units; sugars 300-349,(20)units; sugars more than 349,(25)units. Allergies: Coded Allergies: Contrast Media (Verified Allergy, Severe, Flash pulmonary edema , 06/16/16) PEANUTS (Verified Allergy, Severe, rash, 06/16/16) Active Ordered Medications Current Medications Piperacillin Sod/ Tazobactam Sod 100 ml @ 200 mls/hr ONCE STAT IV Last administered on 06/16/16t 14:55; Start 06/16/16 at 14:30; Stop 06/16/16 at 14:59 ; Status DC Vancomycin HCl/ Sodium Chloride (Vancomycin Inj/ NS 250 ml Inj) 250 ml @ 250 mls/hr ONCE STAT IV ; Start 06/16/16 at 14:30; Stop 06/16/16 at 15:29; Status DC Lorazepam 1 mg 1 mg ONCE ONCE IV PUSH ; Start 06/16/16 at 15:00; Stop 06/16/16 at 15:02; Status DC Sodium Chloride (NS 1000 ml Inj) 1,000 ml @ 999 mls/hr BOLUS ONCE IV Last administered on 06/16/16 15:30; Start 06/16/16 at 15:00; Stop 06/16/16 at 16:00 Hydromorphone HCl (Dilaudid Pf Inj) 1 mg ONCE ONCE IV PUSH Last administered on 06/16/16 15:31; Start 06/16/16 at 15:15; Stop 06/16/16 at 15:16; Status DC Ondansetron HCl (Zofran Inj) 4 mg ONCE ONCE IV PUSH Last administered on 15:31; Start 06/16/16 at 15:15; Stop 06/16/16 at 15:16; Status DC Dextrose (D50w (Vial) Inj) 25 ml UNSCH PRN IV PUSH HYPOGLYCEMIA-SEE COMMENTS; Start 06/16/16 at 16:00; Status UNV Glucagon (Glucagon Inj) 1 mg UNSCH PRN OTHER HYPOGLYCEMIA-SEE COMMENTS; Start 06/16/16 at 16:00; Status UNV Insulin Aspart 1 1 ACHS SLIDING SCALE SQ ; Start 06/16/16 at 16:00; Status UNV Pharmacy Profile Note 0 ml @ 0 mls/hr UNSCH OTHER ; Start 06/16/16 at 16:00; Status UNV Pharmacy Profile Note ([facility]) 0 ml @ 0 mls/hr UNSCH OTHER ; Start 06/16/16 at 16:00; Status UNV Bupropion HCl (Wellbutrin Sr) 150 mg Q12HR PO ; Start 06/16/16 at 21:00; Status UNV Carvedilol (Coreg) 25 mg BID PO ; Start 06/16/16 at 21:00; Status UNV Duloxetine HCl (Cymbalta Dr) 30 mg BID PO ; Start 06/16/16 at 21:00; Status UNV Insulin Detemir (Levemir Inj) 20 units Q12HR SQ ; Start 06/16/16 at 21:00; Status UNV Liothyronine Sodium (Cytomel) 5 mcg DAILY PO ; Start 06/17/16 at 09:00; Status UNV Non-Formulary Medication 1 tab TID CHEW NS; Start 06/16/16 at 18:00; Status UNV Non-Formulary Medication 175 mcg DAILY PO ; Start 06/17/16 at 09:00; Status UNV Miscellaneous Information 1 Q3D T-DERMAL ; Start 06/19/16 at 16:00; Status UNV Family History not relevant to this admission. Social History doesn't smoke or drink. Physical Exam Vital Signs Vital Signs Date Time Temp Pulse Resp B/P Pulse Ox O2 Delivery O2 Flow Rate FiO2 06/16/16 14:22 97 06/16/16 13:08 97.7 74 15 164/69 98 Physical Exam GENERAL: This is a well-nourished, well-developed patient, in no apparent distress. SKIN: bilateral lower extremity venous stasis ulcers along with erythema and swelling HEAD: Atraumatic. Normocephalic. No temporal or scalp tenderness. EYES: Pupils equal round and reactive. Extraocular motions intact. No scleral icterus. No injection or drainage. ENT: Nose without bleeding, purulent drainage or septal hematoma. Throat without erythema, tonsillar hypertrophy or exudate. Uvula midline. Airway patent. NECK: Trachea midline. No JVD or lymphadenopathy. Supple, nontender, no meningeal signs. CARDIOVASCULAR: Regular rate and rhythm without murmurs, gallops, or rubs. RESPIRATORY: Clear to auscultation. Breath sounds equal bilaterally. No wheezes , rales, or rhonchi. GASTROINTESTINAL: Abdomen soft, non-tender, nondistended. No hepato-splenomegaly , or palpable masses. No guarding. MUSCULOSKELETAL: edema of both legs NEUROLOGICAL: Awake and alert. Cranial nerves II through XII intact. Motor and sensory grossly within normal limits. Five out of 5 muscle strength in all muscle groups. Normal speech. Laboratory Laboratory Tests Test 06/16/16 13:05 White Blood Count 14.2 Red Blood Count 3.36 Hemoglobin 8.3 Hematocrit 25.8 Mean Corpuscular Volume 76.8 Mean Corpuscular Hemoglobin 24.7 Mean Corpuscular Hemoglobin 32.1 Concent Red Cell Distribution Width 15.5 Platelet Count 469 Mean Platelet Volume 6.5 Neutrophils (%) (Auto) 78.7 Lymphocytes (%) (Auto) 9.8 Monocytes (%) (Auto) 9.6 Eosinophils (%) (Auto) 1.1 Basophils (%) (Auto) 0.8 Neutrophils # (Auto) 11.2 Lymphocytes # (Auto) 1.4 Monocytes # (Auto) 1.4 Eosinophils # (Auto) 0.2 Basophils # (Auto) 0.1 CBC Comment AUTO DIFF Differential Total Cells 100 Counted Neutrophils % (Manual) 79 Lymphocytes % 10 Monocytes % 8 Eosinophils % 2 Neutrophils # (Manual) 11.4 Myelocytes 1 Differential Comment FINAL DIFF MANUAL Platelet Estimate HIGH Platelet Morphology Comment NORMAL Sodium Level 127 Potassium Level 4.7 Chloride Level 91 Carbon Dioxide Level 27.0 Anion Gap 9 Blood Urea Nitrogen 36 Creatinine 1.41 Estimat Glomerular Filtration 38 Rate Random Glucose 177 Calcium Level 8.4 Date/Time Procedure Status Source Growth 06/16/16 15:20 Aerobic Blood Culture Received Blood Peripheral Pending 06/16/16 15:20 Anaerobic Blood Culture Received Blood Peripheral Pending Result Diagram: 06/16/16 1305 06/16/16 1305 Imaging Last Impressions Chest X-Ray 06/16/16 1430 Signed Impressions: Service Date/Time: Thursday, June 16, 2016 14:53 - CONCLUSION: 1. No acute cardiopulmonary findings. Jose Rogers MD Assessment and Plan Assessment and Plan A/P - cellulitis of both legs with bilateral lower extremity wounds with history of PVD continue with IV antibiotics- continue pain control- will consult ID, vascular surgery and wound care -hyponatremia; seems to be chronic- asymptomatic- will monitor for now- BMP in am -anemia of chronic disease- will monitor -diabetes mellitus; resume long acting insulin- accu-check with SSI -cardiomyopathy; resume BB, nitrate and diuretic -chronic renal insufficiency; will monitor the renal function for now -hypothyroidism; resume home meds -DVT prophylaxis; pending vascular surgery evaluation Discussed Condition With ER physician and the patient. Physician Certification 2 Midnight Certification Type: Admission for Inpatient Services Order for Inpatient Services The services are ordered in accordance with Medicare regulations or non- Medicare payer requirements, as applicable. In the case of services not specified as inpatient-only, they are appropriately provided as inpatient services in accordance with the 2-midnight benchmark. Estimated LOS (days): 2 days is the estimated time the patient will need to remain in the hospital, assuming treatment plan goals are met and no additional complications. Post-Hospital Plan: Not yet determined Conrad Clancy MD Jun 16, 2016 16:01
[2016-06-16] MEDS: fentaNYL 50 MCG/HR PATCH TD SCH (17:00)
[2016-06-16] MEDS ORDERED: VIBR100C PO (17:08)
[2016-06-16] MEDS ORDERED: LOSA100T PO (17:08)
[2016-06-16] MEDS ORDERED: SODI1TAB PO (17:08)
[2016-06-16] MEDS ORDERED: LEVEMIR SQ (17:08)
[2016-06-16] MEDS ORDERED: THERTAB17 PO (17:08)
[2016-06-16] MEDS ORDERED: HUMALOG SQ ×2 (17:10→17:21)
[2016-06-16] MEDS ORDERED: ISOS5TAB PO (17:15)
[2016-06-16] MEDS ORDERED: CLON0.5T PO (17:21)
[2016-06-16] MEDS ORDERED: DAKI0.12 TOPICAL (17:26)
[2016-06-16] MEDS ORDERED: MILKSUS PO (17:30)
[2016-06-16] MEDS ORDERED: GLUCINJ IM (17:30)
[2016-06-16] MEDS ORDERED: FLEEENE3 RECTAL (17:34)
[2016-06-16] MEDS ORDERED: DULC10SU3 RECTAL (17:34)
[2016-06-16] MEDS ORDERED: CITRSOL4 PO (17:34)
--- NOTE | 2016-06-16 17:53 | PD.VS.CON ---
History of Present Illness Chief Complaint: B LE wounds Consult Requested by: ER History of Present Illness 61 yo lady with B LE wounds for months, previously admitted and treated as inpatient. No intervention other than wound care performed. Got to the point today that she was unable to walk and presented to the ER. Notes insomnia but no other systemic signs of infection. Past/Family/Social History Past Medical History DM Cardiomyopathy HTN PAD Past Surgical History oophorectomy ? 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[employer] [facility] Medications Active Scripts Oxycodone-Acetaminophen 10-325 mg Tab1 Tab PO Q4HR PRN (pain) #15 TAB Ref 0 Prov:Conrad Clancy MD 06/02/16 Fentanyl Patch 72 HR (Duragesic Patch 72 HR)50 Mcg/Hr Patch1 Patch TD Q3D #2 PATCH Prov:Estefanía Salguero MD 05/30/16 Oxycodone-Acetaminophen 5-325 mg Tab1 Tab PO Q4H PRN (PAIN 3-5) #10 TAB Prov:Estefanía Salguero MD 05/30/16 Gabapentin (Neurontin)300 Mg [id number] Mg PO BID #60 CAP Prov:Estefanía Salguero MD 05/30/16 Lactobacillus Acidophilus (Lactinex)1 Chew1 Tab CHEW TID #90 TAB Ref 0 Prov:Edouard Mckinley MD 04/23/16 Reported Medications Magnesium Citrate Liq (Citroma Liq)300 Ml Rjd391 Ml PO DAILY PRN (IF NO RESULT FROM FLEETS) #1 BOTTLE Ref 0 06/16/16 Sodium Phosphates Rectal (Fleet Enema Rectal)7-19 Gm/118 Ml Asrk825 Ml RECTAL DAILY PRN (IF NO RESULT 1 DAY AFTER SUPP) Ref 0 06/16/16 Bisacodyl Supp (Dulcolax Supp)10 Mg Supp10 Mg RECTAL DAILY PRN (IF NO BM 1 DAY AFTER MOM) #12 SUPP Ref 0 06/16/16 Glucagon (Rdna) Inj Kit (Glucagen Hypokit Inj Kit)1 Mg Kit1 Mg IM ONCE PRN (DM, IF BS <50) #1 KIT Ref 0 06/16/16 Magnesium Hydroxide Liq (Milk of Magnesia Liq)400 Mg/5 Ml Susp30 Ml PO Q24HR PRN (IF NO BM WITHIN 3 DAYS) #1 BOTTLE Ref 0 06/16/16 Sodium Hypochlorite Topical (Dakins Solution Quarter Strength Topical)0.125% Soln1 Applic TOPICAL DAILY Ref 0 06/16/16 Insulin Lispro (Human) Inj (Humalog Inj)1,000 Unit/10 Ml Vial2-10 Units SQ Q6HR PRN (ELEVATED BS) #1 VIAL Ref 0 Sugars 151-200,(2)units; sugars 201-250,(4)units; sugars 251-300,(6)units; sugars 301-350,(8)units; sugars 351-400,(10)units. Greater than 400 call MD 06/16/16 Clonazepam 0.5 Mg Tab0.5 Mg PO Q8HR PRN (ANXIETY) #90 TAB Ref 0 06/16/16 Isosorbide Dinitrate 5 Mg Tab5 Mg PO Q8HR 06/16/16 Insulin Lispro (Human) Inj (Humalog Inj)1,000 Unit/10 Ml Vial5-25 Units SQ HS # 1 VIAL Ref 0 Inject per sliding scale: sugars 0-70,(0)units; sugars 150-199,(5)units; sugars 200-249,(10)units; sugars 250-299,(15)units; sugars 300-349,(20)units; sugars more than 349,(25)units. 06/16/16 Doxycycline Hyclate (Vibramycin)100 Mg Cmm960 Mg PO BID Ref 0 06/16/16 Sodium Chloride 1 Gm Tab1 Gm PO DAILY Ref 0 06/16/16 Multiple Vitamins W/ Minerals (Thera-M)1 Tab1 Tab PO DAILY Ref 0 06/16/16 Losartan 100 Mg Zxu040 Mg PO DAILY #30 TAB Ref 0 06/16/16 Insulin Detemir Inj (Levemir Inj)1,000 unit/ 10 ML Vial20 Units SQ HS Ref 0 Do not mix with any other Insulin. 06/16/16 Levothyroxine 175 Mcg [id number] Mcg PO DAILY 04/18/16 Liothyronine 5 Mcg Tab5 Mcg PO DAILY #30 TAB Ref 0 04/18/16 Furosemide (Lasix)20 Mg Tab20 Mg PO DAILY #30 TAB Ref 0 04/18/[address] (Cymbalta DR)30 Mg Capdr30 Mg PO Q12HR #30 CAP Ref 0 04/18/16 Bupropion HCl ER 12 HR (Wellbutrin SR 12 HR)150 Mg Xmx097 Mg PO Q12HR Ref 0 04/18/16 Carvedilol 25 Mg Tab25 Mg PO BID #60 TAB Ref 0 04/18/16 Discontinued Reported Medications Insulin Lispro (Human) Inj (Humalog Inj)1,000 Unit/10 Ml Vial5-25 Units SQ DIRECTED #1 VIAL Ref 0 Max dose at bedtime:( )units; sugars < 70,(0)units; sugars 150-199,(5)units; sugars 200-249,(10)units; sugars 250-299,(15)units; sugars 300-349,(20)units; sugars more than 349,(25)units. 04/18/16 Discontinued Scripts Isosorbide Dinitrate (Isordil Titradose)5 Mg Tab5 Mg PO TIDAC #30 TAB Prov:Estefanía Salguero MD 05/30/16 Insulin Detemir Inj (Levemir Inj)1,000 unit/ 10 ML Vial20 Units SQ Q12HR #1 INJECTION Prov:Estefanía Salguero MD 05/30/16 Coded Allergies: Contrast Media (Verified Allergy, Severe, Flash pulmonary edema , 06/16/16) PEANUTS (Verified Allergy, Severe, rash, 06/16/16) Review of Systems Constitutional: DENIES: Fever, Chills, Change in appetite Respiratory: COMPLAINS OF: Shortness of breath Cardiovascular: COMPLAINS OF: Dyspnea on Exertion, Lower Extremity Edema, DENIES: Chest pain Musculoskeletal: COMPLAINS OF: Joint pain, Muscle aches, Joint Swelling Neurologic: COMPLAINS OF: Poor Balance Physical Exam Vitals/I&O Date Time Temp Pulse Resp B/P Pulse Ox O2 Delivery O2 Flow Rate FiO2 06/16/16 14:22 97 06/16/16 13:08 97.7 74 15 164/69 98 Neuro: alert, answers questions appropriately HEENT: NC/AT Neck: no JVD Heart: reg rate Lungs: unlabored Abdomen: obese, NT Vascular: limited exam due to body habitus / inability to lie flat and B LE wounds/ dressings Extremities: B LE desquamated wounds with exposed sub q tissue Laboratory Tests Test 06/16/16 06/16/16 13:05 15:10 White Blood Count 14.2 Red Blood Count 3.36 Hemoglobin 8.3 Hematocrit 25.8 Mean Corpuscular Volume 76.8 Mean Corpuscular Hemoglobin 24.7 Mean Corpuscular Hemoglobin 32.1 Concent Red Cell Distribution Width 15.5 Platelet Count 469 Mean Platelet Volume 6.5 Neutrophils (%) (Auto) 78.7 Lymphocytes (%) (Auto) 9.8 Monocytes (%) (Auto) 9.6 Eosinophils (%) (Auto) 1.1 Basophils (%) (Auto) 0.8 Neutrophils # (Auto) 11.2 Lymphocytes # (Auto) 1.4 Monocytes # (Auto) 1.4 Eosinophils # (Auto) 0.2 Basophils # (Auto) 0.1 CBC Comment AUTO DIFF Differential Total Cells 100 Counted Neutrophils % (Manual) 79 Lymphocytes % 10 Monocytes % 8 Eosinophils % 2 Neutrophils # (Manual) 11.4 Myelocytes 1 Differential Comment FINAL DIFF MANUAL Platelet Estimate HIGH Platelet Morphology Comment NORMAL Sodium Level 127 Potassium Level 4.7 Chloride Level 91 Carbon Dioxide Level 27.0 Anion Gap 9 Blood Urea Nitrogen 36 Creatinine 1.41 Estimat Glomerular Filtration 38 Rate Random Glucose 177 Calcium Level 8.4 Lactic Acid Level 0.8 Date/Time Procedure Status Source Growth 06/16/16 15:20 Aerobic Blood Culture Received Blood Peripheral Pending 06/16/16 15:20 Anaerobic Blood Culture Received Blood Peripheral Pending Last 48 hours Impressions Chest X-Ray 06/16/16 1430 Signed Impressions: Service Date/Time: Thursday, June 16, 2016 14:53 - CONCLUSION: 1. No acute cardiopulmonary findings. Jose Rogers MD Assessment and Plan Plan Multifactorial LE wounds, chronic in a patient who is minimally ambulatory. 1. Needs ABIs and then likely contrast angiography. She notes that she had flash pulmonary edema after previous angiogram and I would premedicate her as if this were an allergic reaction and perform this in the hybrid suite under anesthesia 2. Prior limited venous ultrasound showed no DVT 3. Aggressive wound care. I proposed to the patient and her that all involved physicians see the wounds simultaneously, and will be available tomorrow () morning. Shamar Taylor MD Jun 16, 2016 17:53
[2016-06-16] MEDS: ISOSORBIDE DINITRATE 5 MG TAB PO SCH (18:50)
[2016-06-16] MEDS: VANCOMYCIN INJ 1,400 MG in SODIUM CHLORID 0.9% 500 ML INJ 500 ML IV SCH (18:50)
[2016-06-16] MEDS: LACTOBACILLUS ACIDOPHILUS TAB PO SCH (18:50)
[2016-06-16] MEDS: ACETAMINOPHEN/HYDROcodone 325 MG/5 MG TAB PO PRN (20:19)
[2016-06-16] MEDS ORDERED: INSULIN DETEMIR 100 UNITS/ML VIAL SQ SCH (21:00)
[2016-06-16] MEDS: CARVEDILOL 12.5 MG TAB PO SCH (21:34)
[2016-06-16] MEDS: PIPERACIL-TAZO 3.375 GM PREMIX 50 ML IV SCH (21:34)
[2016-06-16] MEDS: GABAPENTIN 300 MG CAP PO SCH ×2 (21:34→23:00)
[2016-06-16] MEDS: INSULIN DETEMIR 100 UNITS/ML VIAL SQ SCH (21:35)
[2016-06-16] MEDS: buPROPion HCL 150 MG SUSTAINED RELEASE TAB PO SCH (23:00)
[2016-06-16] MEDS: DULoxetine HCl DR 30 MG CAP PO SCH (23:00)
[2016-06-17] VITALS (8 sets, daily range): BP systolic 104–134; BP diastolic 53–73; PULSE 66–78; RESP 16–20; TEMP 97.7–98.5; O2SAT 91–98
[2016-06-17] MEDS: ACETAMINOPHEN/HYDROcodone 325 MG/5 MG TAB PO PRN ×4 (00:40→23:39)
[2016-06-17] MEDS: PIPERACIL-TAZO 3.375 GM PREMIX 50 ML IV SCH ×4 (03:00→23:37)
[2016-06-17] MEDS: INSULIN ASPART SUPPLEMENTAL SCALE SQ SCH ×4 (05:29→23:38)
[2016-06-17] MEDS: LEVOTHYROXINE SODIUM 150 MCG TAB PO SCH (06:56)
[2016-06-17] MEDS: LEVOTHYROXINE SODIUM 25 MCG TAB PO SCH (06:56)
[2016-06-17 07:36] LABS: WHITE BLOOD COUNT 12.9 TH/MM3 (4.0-11.0)
[2016-06-17 07:37] LABS: AUTOMATED NEUTROPHIL # 10.4 TH/MM3 (1.8-7.7); BASOPHIL # 0.1 TH/MM3 (0-0.2); BASOPHIL % 0.5 % (0.0-2.0); EOSINOPHIL # 0.2 TH/MM3 (0-0.4); EOSINOPHIL % 1.7 % (0.0-4.0); HEMATOCRIT 24.6 % (35.0-46.0); LYMPH % 9.5 % (9.0-44.0); LYMPHOCYTE # 1.2 TH/MM3 (1.0-4.8); MEAN CELL VOLUME 76.8 FL (80.0-100.0); MEAN CORPUSCULAR HGB CONC 32.5 % (32.0-36.0); NEUT % 80.3 % (16.0-70.0); PLATELET COUNT 462 TH/MM3 (150-450); RED CELL DISTRIBUTION WIDTH 15.5 % (11.6-17.2)
[2016-06-17 07:39] LABS: HEMO FLAGS AUTO DIFF
[2016-06-17 07:58] LABS: BICARBONATE 27.3 MEQ/L (21.0-32.0); POTASSIUM 4.6 MEQ/L (3.5-5.1)
[2016-06-17 08:41] LABS: BANDS 9 % (0-6); EOSINOPHILS 1 % (0-4); NEUTROPHIL # MANUAL DIFF 11.1 TH/MM3 (1.8-7.7); POLYS (SEG NEUTROPHILS) 77 % (16-70); WBC DIFF SAMPLE 100
[2016-06-17 08:42] LABS: PLATELET ESTIMATE SMEAR HIGH (NORMAL); PLATELET MORPHOLOGY NORMAL (NORMAL); SCAN/DIFF FINAL DIFF MANUAL
[2016-06-17] MEDS: ISOSORBIDE DINITRATE 5 MG TAB PO SCH ×3 (09:01→16:45)
[2016-06-17] MEDS: DULoxetine HCl DR 30 MG CAP PO SCH ×2 (09:02→23:37)
[2016-06-17] MEDS: buPROPion HCL 150 MG SUSTAINED RELEASE TAB PO SCH ×2 (09:02→23:38)
[2016-06-17] MEDS: LOSARTAN 50 MG TAB PO SCH (09:02)
[2016-06-17] MEDS: GABAPENTIN 300 MG CAP PO SCH ×2 (09:02→23:37)
[2016-06-17] MEDS: LIOTHYRONINE SODIUM 5 MCG TAB PO SCH (09:02)
[2016-06-17] MEDS: LACTOBACILLUS ACIDOPHILUS TAB PO SCH ×3 (09:02→17:01)
[2016-06-17] MEDS: CARVEDILOL 12.5 MG TAB PO SCH ×2 (09:02→21:00)
[2016-06-17] MEDS: FUROSEMIDE 20 MG/2 ML VIAL IV PUSH SCH (09:03)
--- NOTE | 2016-06-17 11:11 | HHI.PR ---
Subjective Remarks in no acute distress. although is awake and oriented-reportedly had episodes of confusion. no fever. Objective Vitals Vital Signs Date Time Temp Pulse Resp B/P Pulse Ox O2 Delivery O2 Flow Rate FiO2 06/17/16 09:43 Room Air 06/17/16 08:00 97.7 73 20 134/73 91 06/17/16 07:53 74 06/17/16 04:00 97.8 76 18 120/57 94 06/17/16 00:07 77 06/17/16 00:00 98.2 74 18 108/54 95 06/16/16 22:10 97.8 81 20 138/61 93 06/16/16 22:10 Room Air 06/16/16 21:42 98.1 80 20 127/86 100 Room Air 06/16/16 21:35 18 06/16/16 20:26 18 06/16/16 18:00 78 18 146/71 99 Room Air 06/16/16 17:00 74 18 139/69 99 Room Air 06/16/16 16:00 72 18 139/76 99 Room Air 06/16/16 15:00 76 20 149/76 98 Room Air 06/16/16 14:22 97 06/16/16 13:08 97.7 74 15 164/69 98 I/O 06/16/16 06/16/16 06/16/16 06/17/16 06/17/16 06/17/16 07:00 15:00 23:00 07:00 15:00 23:00 Intake Total 240 ml 290 ml 40 ml Output Total 200 ml Balance 240 ml 90 ml 40 ml Intake Oral 240 ml 240 ml IV Total 50 ml 40 ml Output Urine Total 200 ml Result Diagram: 06/17/16 0635 06/17/16 0635 Imaging Last Impressions Chest X-Ray 06/16/16 1430 Signed Impressions: Service Date/Time: Thursday, June 16, 2016 14:53 - CONCLUSION: 1. No acute cardiopulmonary findings. Jose Rogers MD Objective Remarks GENERAL: This is a well-nourished, well-developed patient, in no apparent distress. CARDIOVASCULAR: Regular rate and regular rhythm without murmurs, gallops, or rubs. RESPIRATORY: Clear to auscultation. Breath sounds equal bilaterally. No wheezes , rales, or rhonchi. GASTROINTESTINAL: Abdomen soft, non-tender, nondistended. Normal, active bowel sounds MUSCULOSKELETAL: both legs covered with clean dressing. NEURO: Alert & Oriented x4 to person, place, time, situation. Moves all ext x4 Procedures none Medications and IVs Current Medications Piperacillin Sod/ Tazobactam Sod 100 ml @ 200 mls/hr ONCE STAT IV Last administered on 06/16/16 14:55; Start 06/16/16 at 14:30; Stop 06/16/16 at 14:59 ; Status DC Vancomycin HCl/ Sodium Chloride (Vancomycin Inj/ NS 250 ml Inj) 250 ml @ 250 mls/hr ONCE STAT IV ; Start 06/16/16 at 14:30; Stop 06/16/16 at 15:29; Status Cancel Lorazepam 1 mg 1 mg ONCE ONCE IV PUSH ; Start 06/16/16 at 15:00; Stop 06/16/16 at 15:02; Status DC Sodium Chloride (NS 1000 ml Inj) 1,000 ml @ 999 mls/hr BOLUS ONCE IV Last administered on 06/16/16 15:30; Start 06/16/16 at 15:00; Stop 06/16/16 at 16:00 ; Status DC Hydromorphone HCl (Dilaudid Pf Inj) 1 mg ONCE ONCE IV PUSH Last administered on 06/16/16 15:31; Start 06/16/16 at 15:15; Stop 06/16/16 at 15:16; Status DC Ondansetron HCl (Zofran Inj) 4 mg ONCE ONCE IV PUSH Last administered on 15:31; Start 06/16/16 at 15:15; Stop 06/16/16 at 15:16; Status DC Dextrose (D50w (Vial) Inj) 25 ml UNSCH PRN IV PUSH HYPOGLYCEMIA-SEE COMMENTS; Start 06/16/16 at 16:00 Glucagon (Glucagon Inj) 1 mg UNSCH PRN OTHER HYPOGLYCEMIA-SEE COMMENTS; Start 06/16/16 at 16:00 Insulin Aspart 1 1 ACHS SLIDING SCALE SQ Last administered on 06/16/16 21:35 ; Start 06/16/16 at 16:00 Pharmacy Profile Note 0 ml @ 0 mls/hr UNSCH OTHER ; Start 06/16/16 at 16:00 Pharmacy Profile Note ([facility]) 0 ml @ 0 mls/hr UNSCH OTHER ; Start 06/16/16 at 16:00 Bupropion HCl (Wellbutrin Sr) 150 mg Q12HR PO Last administered on 06/17/16 09 :02; Start 06/16/16 at 21:00 Carvedilol (Coreg) 25 mg BID PO Last administered on 06/17/16 09:02; Start at 21:00 Duloxetine HCl (Cymbalta Dr) 30 mg BID PO Last administered on 06/17/16 09:02 ; Start 06/16/16 at 21:00 Fentanyl (Duragesic 50 Mcg Patch.72 Hr) 1 patch Q3D TD ; Start 06/16/16 at 17: 00 Gabapentin (Neurontin) 300 mg BID PO Last administered on 06/17/16 09:02; Start 06/16/16 at 21:00 Insulin Detemir (Levemir Inj) 20 units Q12HR SQ ; Start 06/16/16 at 21:00; Stop 06/16/16 at 21:00; Status DC Isosorbide Dinitrate (Isordil) 5 mg TIDAC PO Last administered on 06/17/16 09: 01; Start 06/16/16 at 17:00 Liothyronine Sodium (Cytomel) 5 mcg DAILY PO Last administered on 06/17/16 09: 02; Start 06/17/16 at 09:00 Lactobacillus Acidophilus (Lactinex) 1 tab TID PO Last administered on 09:02; Start 06/16/16 at 18:00 Levothyroxine Sodium (Synthroid) 150 mcg DAILY@06 PO Last administered on 06:56; Start 06/17/16 at 06:00 Miscellaneous Information 1 Q3D T-DERMAL ; Start 06/19/16 at 17:00 Ondansetron HCl (Zofran Inj) 4 mg Q8HR PRN IV PUSH NAUSEA; Start 06/16/16 at 16 :00 Acetaminophen (Tylenol) 650 mg Q4H PRN PO FEVER; Start 06/16/16 at 16:00 Acetaminophen/ Hydrocodone Bitart ([place] 5-325 Mg) 1 tab Q4H PRN PO PAIN > 5 Last administered on 06/17/16 09:08; Start 06/16/16 at 16:00 Furosemide (Lasix Inj) 20 mg DAILY IV PUSH Last administered on 06/17/16 09:03 ; Start 06/17/16 at 09:00 Levothyroxine Sodium 25 mcg 25 mcg DAILY@06 PO Last administered on 06/17/16 06:56; Start 06/17/16 at 06:00 Vancomycin HCl/ Sodium Chloride (Vancomycin Inj/ NS 500 ml Inj) 514 ml @ 250 mls/hr Q24H IV Last administered on 06/16/16 18:50; Start 06/16/16 at 17:00 Miscellaneous Information SPECIFIC LAB TO BE [facility]... ONCE ONCE XX ; Start at 16:45; Stop 06/19/16 at 16:46 Piperacillin Sod/ Tazobactam Sod (Zosyn 3.375 Gm Premix) 50 ml @ 100 mls/hr Q6H IV Last administered on 06/17/16 09:34; Start 06/16/16 at 21:00 Insulin Detemir (Levemir Inj) 20 units HS SQ Last administered on 06/16/16 21: 35; Start 06/16/16 at 21:00 Losartan Potassium (Cozaar) 100 mg DAILY PO Last administered on 06/17/16 09: 02; Start 06/17/16 at 09:00 A/P Assessment and Plan - cellulitis of both legs with bilateral lower extremity wounds with history of PVD continue with IV antibiotics- continue pain control- vascular surgery following- consulted ID and wound care -hyponatremia; seems to be chronic- asymptomatic- improved. -questionable episodes of confusion??- will check UA -anemia of chronic disease- will monitor -diabetes mellitus; resumed long acting insulin- accu-check with SSI -cardiomyopathy; resumed BB, nitrate and diuretic -chronic renal insufficiency; will monitor the renal function for now -hypothyroidism; resumed home meds -DVT prophylaxis; pending vascular surgery evaluation Conrad Clancy MD Jun 17, 2016 11:11
--- NOTE | 2016-06-17 14:55 | PD.VS.PN ---
Subjective Subjective/Hospital Course Pt w B LE wounds, R>>>L worse Seen today with wound care team and her LEFT leg is excoriated, denuded and desquamated Also has severe B LE swelling Objective Vitals/I&O Date Time Temp Pulse Resp B/P Pulse Ox O2 Delivery O2 Flow Rate FiO2 06/17/16 12:00 97.9 66 20 104/53 92 06/17/16 09:43 Room Air 06/17/16 08:00 97.7 73 20 134/73 91 06/17/16 07:53 74 06/17/16 04:00 97.8 76 18 120/57 94 06/17/16 00:07 77 06/17/16 00:00 98.2 74 18 108/54 95 06/16/16 22:10 97.8 81 20 138/61 93 06/16/16 22:10 Room Air 06/16/16 21:42 98.1 80 20 127/86 100 Room Air 06/16/16 21:35 18 06/16/16 20:26 18 06/16/16 18:00 78 18 146/71 99 Room Air 06/16/16 17:00 74 18 139/69 99 Room Air 06/16/16 16:00 72 18 139/76 99 Room Air 06/16/16 15:00 76 20 149/76 98 Room Air 06/17/16 06/17/16 06/17/16 07:00 15:00 23:00 Intake Total 290 ml 40 ml Output Total 200 ml Balance 90 ml 40 ml Laboratory Laboratory Tests Test 06/16/16 06/17/16 15:10 06:35 Lactic Acid Level 0.8 White Blood Count 12.9 Red Blood Count 3.20 Hemoglobin 8.0 Hematocrit 24.6 Mean Corpuscular Volume 76.8 Mean Corpuscular Hemoglobin 25.0 Mean Corpuscular Hemoglobin 32.5 Concent Red Cell Distribution Width 15.5 Platelet Count 462 Mean Platelet Volume 6.4 Neutrophils (%) (Auto) 80.3 Lymphocytes (%) (Auto) 9.5 Monocytes (%) (Auto) 8.0 Eosinophils (%) (Auto) 1.7 Basophils (%) (Auto) 0.5 Neutrophils # (Auto) 10.4 Lymphocytes # (Auto) 1.2 Monocytes # (Auto) 1.0 Eosinophils # (Auto) 0.2 Basophils # (Auto) 0.1 CBC Comment AUTO DIFF Differential Total Cells 100 Counted Neutrophils % (Manual) 77 Band Neutrophils % 9 Lymphocytes % 10 Monocytes % 3 Eosinophils % 1 Neutrophils # (Manual) 11.1 Differential Comment FINAL DIFF MANUAL Platelet Estimate HIGH Platelet Morphology Comment NORMAL Red Cell Morphology Comment Sodium Level 131 Potassium Level 4.6 Chloride Level 96 Carbon Dioxide Level 27.3 Anion Gap 8 Blood Urea Nitrogen 31 Creatinine 1.18 Estimat Glomerular Filtration 46 Rate Random Glucose 131 Calcium Level 8.5 Date/Time Procedure Status Source Growth 06/16/16 15:20 Aerobic Blood Culture - Preliminary Resulted Blood Peripheral NO GROWTH IN 1 DAY 06/16/16 15:20 Anaerobic Blood Culture - Preliminary Resulted Blood Peripheral NO GROWTH IN 1 DAY Imaging Last 48 hours Impressions Chest X-Ray 06/16/16 1430 Signed Impressions: Service Date/Time: Thursday, June 16, 2016 14:53 - CONCLUSION: 1. No acute cardiopulmonary findings. Jose Rogers MD Assessment and Plan Plan Multifactorial LE wounds, chronic in a patient who is minimally ambulatory. 1. Wound care: calcium alginate Ag and compression toes to thighs 2. ABIs 3. Tentatively on for B LE angiogram/angioplasty/stent on Thursday under GETA and will prep for possible allergic reaction given prior flash pulmonary edema 4. Will debride B LE in the OR during angio Shamar Taylor MD Jun 17, 2016 14:55
[2016-06-17] MEDS: VANCOMYCIN INJ 1,400 MG in SODIUM CHLORID 0.9% 500 ML INJ 500 ML IV SCH (16:44)
[2016-06-17] MEDS: INSULIN DETEMIR 100 UNITS/ML VIAL SQ SCH (23:38)
[2016-06-18] VITALS: BP 120/57; PULSE 77; RESP 18; TEMP 98.6; O2SAT 95
[2016-06-18 04:00] VITALS: BP 136/64; PULSE 78; RESP 18; TEMP 98.1; O2SAT 95
[2016-06-18] MEDS: PIPERACIL-TAZO 3.375 GM PREMIX 50 ML IV SCH ×4 (04:05→22:42)
[2016-06-18] MEDS: LEVOTHYROXINE SODIUM 25 MCG TAB PO SCH (06:20)
[2016-06-18] MEDS: INSULIN ASPART SUPPLEMENTAL SCALE SQ SCH ×4 (06:20→21:00)
[2016-06-18] MEDS: LEVOTHYROXINE SODIUM 150 MCG TAB PO SCH (06:20)
[2016-06-18] MEDS: ACETAMINOPHEN/HYDROcodone 325 MG/5 MG TAB PO PRN (06:21)
[2016-06-18 08:00] VITALS: BP 171/77; PULSE 74; PULSE 88; RESP 22; TEMP 99; O2SAT 96
[2016-06-18] MEDS: LACTOBACILLUS ACIDOPHILUS TAB PO SCH ×3 (09:00→16:44)
[2016-06-18] MEDS: buPROPion HCL 150 MG SUSTAINED RELEASE TAB PO SCH ×2 (09:34→22:41)
[2016-06-18] MEDS: DULoxetine HCl DR 30 MG CAP PO SCH ×2 (09:35→22:42)
[2016-06-18] MEDS: LIOTHYRONINE SODIUM 5 MCG TAB PO SCH (09:35)
[2016-06-18] MEDS: LOSARTAN 50 MG TAB PO SCH (09:35)
[2016-06-18] MEDS: CARVEDILOL 12.5 MG TAB PO SCH ×2 (09:35→22:42)
[2016-06-18] MEDS: GABAPENTIN 300 MG CAP PO SCH ×2 (09:35→22:41)
[2016-06-18] MEDS: FUROSEMIDE 20 MG/2 ML VIAL IV PUSH SCH (09:36)
[2016-06-18] MEDS: ISOSORBIDE DINITRATE 5 MG TAB PO SCH ×3 (09:45→16:40)
--- NOTE | 2016-06-18 10:37 | HHI.PR ---
Subjective Remarks in no distress. no fever. pain to the legs is fairly controlled. Objective Vitals Vital Signs Date Time Temp Pulse Resp B/P Pulse Ox O2 Delivery O2 Flow Rate FiO2 06/18/16 08:00 99.0 88 22 171/77 96 06/18/16 04:00 98.1 78 18 136/64 95 06/18/16 00:00 98.6 77 18 120/57 95 06/17/16 21:00 Room Air 06/17/16 20:00 98.4 77 16 107/59 91 06/17/16 17:50 98.5 78 20 107/53 98 06/17/16 12:00 97.9 66 20 104/53 92 I/O 06/17/16 06/17/16 06/17/16 06/18/16 06/18/16 06/18/16 07:00 15:00 23:00 07:00 15:00 23:00 Intake Total 290 ml 40 ml 240 ml Output Total 200 ml Balance 90 ml 40 ml 240 ml Intake Oral 240 ml 240 ml IV Total 50 ml 40 ml Output Urine Total 200 ml # Voids 1 Result Diagram: 06/17/16 0635 06/17/16 0635 Imaging Last Impressions Chest X-Ray 06/16/16 1430 Signed Impressions: Service Date/Time: Thursday, June 16, 2016 14:53 - CONCLUSION: 1. No acute cardiopulmonary findings. Jose Rogers MD Objective Remarks GENERAL: This is a well-nourished, well-developed patient, in no apparent distress. CARDIOVASCULAR: Regular rate and regular rhythm without murmurs, gallops, or rubs. RESPIRATORY: Clear to auscultation. Breath sounds equal bilaterally. No wheezes , rales, or rhonchi. GASTROINTESTINAL: Abdomen soft, non-tender, nondistended. Normal, active bowel sounds MUSCULOSKELETAL: both legs covered with clean dressing. NEURO: Alert & Oriented x4 to person, place, time, situation. Moves all ext x4 Procedures none Medications and IVs Current Medications Piperacillin Sod/ Tazobactam Sod 100 ml @ 200 mls/hr ONCE STAT IV Last administered on 06/16/16t 14:55; Start 06/16/16 at 14:30; Stop 06/16/16 at 14:59 ; Status DC Vancomycin HCl/ Sodium Chloride (Vancomycin Inj/ NS 250 ml Inj) 250 ml @ 250 mls/hr ONCE STAT IV ; Start 06/16/16 at 14:30; Stop 06/16/16 at 15:29; Status Cancel Lorazepam 1 mg 1 mg ONCE ONCE IV PUSH ; Start 06/16/16 at 15:00; Stop 06/16/16 at 15:02; Status DC Sodium Chloride (NS 1000 ml Inj) 1,000 ml @ 999 mls/hr BOLUS ONCE IV Last administered on 06/16/16 15:30; Start 06/16/16 at 15:00; Stop 06/16/16 at 16:00 ; Status DC Hydromorphone HCl (Dilaudid Pf Inj) 1 mg ONCE ONCE IV PUSH Last administered on 06/16/16 15:31; Start 06/16/16 at 15:15; Stop 06/16/16 at 15:16; Status DC Ondansetron HCl (Zofran Inj) 4 mg ONCE ONCE IV PUSH Last administered on 15:31; Start 06/16/16 at 15:15; Stop 06/16/16 at 15:16; Status DC Dextrose (D50w (Vial) Inj) 25 ml UNSCH PRN IV PUSH HYPOGLYCEMIA-SEE COMMENTS; Start 06/16/16 at 16:00 Glucagon (Glucagon Inj) 1 mg UNSCH PRN OTHER HYPOGLYCEMIA-SEE COMMENTS; Start 06/16/16 at 16:00 Insulin Aspart 1 1 ACHS SLIDING SCALE SQ Last administered on 06/17/16 23:38 ; Start 06/16/16 at 16:00 Pharmacy Profile Note 0 ml @ 0 mls/hr UNSCH OTHER ; Start 06/16/16 at 16:00 Pharmacy Profile Note ([facility]) 0 ml @ 0 mls/hr UNSCH OTHER ; Start 06/16/16 at 16:00 Bupropion HCl (Wellbutrin Sr) 150 mg Q12HR PO Last administered on 06/18/16 09 :34; Start 06/16/16 at 21:00 Carvedilol (Coreg) 25 mg BID PO Last administered on 06/18/16 09:35; Start at 21:00 Duloxetine HCl (Cymbalta Dr) 30 mg BID PO Last administered on 06/18/16 09:35 ; Start 06/16/16 at 21:00 Fentanyl (Duragesic 50 Mcg Patch.72 Hr) 1 patch Q3D TD ; Start 06/16/16 at 17: 00 Gabapentin (Neurontin) 300 mg BID PO Last administered on 06/18/16 09:35; Start 06/16/16 at 21:00 Insulin Detemir (Levemir Inj) 20 units Q12HR SQ ; Start 06/16/16 at 21:00; Stop 06/16/16 at 21:00; Status DC Isosorbide Dinitrate (Isordil) 5 mg TIDAC PO Last administered on 06/18/16 09: 45; Start 06/16/16 at 17:00 Liothyronine Sodium (Cytomel) 5 mcg DAILY PO Last administered on 06/18/16 09: 35; Start 06/17/16 at 09:00 Lactobacillus Acidophilus (Lactinex) 1 tab TID PO Last administered on 09:00; Start 06/16/16 at 18:00 Levothyroxine Sodium (Synthroid) 150 mcg DAILY@06 PO Last administered on 06:20; Start 06/17/16 at 06:00 Miscellaneous Information 1 Q3D T-DERMAL ; Start 06/19/16 at 17:00 Ondansetron HCl (Zofran Inj) 4 mg Q8HR PRN IV PUSH NAUSEA; Start 06/16/16 at 16 :00 Acetaminophen (Tylenol) 650 mg Q4H PRN PO FEVER; Start 06/16/16 at 16:00 Acetaminophen/ Hydrocodone Bitart ([place] 5-325 Mg) 1 tab Q4H PRN PO PAIN > 5 Last administered on 06/18/16 06:21; Start 06/16/16 at 16:00 Furosemide (Lasix Inj) 20 mg DAILY IV PUSH Last administered on 06/18/16 09:36 ; Start 06/17/16 at 09:00 Levothyroxine Sodium 25 mcg 25 mcg DAILY@06 PO Last administered on 06/18/16 06:20; Start 06/17/16 at 06:00 Vancomycin HCl/ Sodium Chloride (Vancomycin Inj/ NS 500 ml Inj) 514 ml @ 250 mls/hr Q24H IV Last administered on 06/17/16 16:44; Start 06/16/16 at 17:00 Miscellaneous Information SPECIFIC LAB TO BE .. ONCE ONCE XX ; Start at 16:45; Stop 06/19/16 at 16:46 Piperacillin Sod/ Tazobactam Sod (Zosyn 3.375 Gm Premix) 50 ml @ 100 mls/hr Q6H IV Last administered on 06/18/16 09:40; Start 06/16/16 at 21:00 Insulin Detemir (Levemir Inj) 20 units HS SQ Last administered on 06/17/16 23: 38; Start 06/16/16 at 21:00 Losartan Potassium (Cozaar) 100 mg DAILY PO Last administered on 06/18/16 09: 35; Start 06/17/16 at 09:00 A/P Assessment and Plan - cellulitis of both legs with bilateral lower extremity wounds with history of PVD continue with IV antibiotics- continue pain control- vascular surgery following; plan for angiogram and wound debridement next week. consulted ID and wound care -hyponatremia; seems to be chronic- asymptomatic- improved. -questionable episodes of confusion??- will check UA -anemia of chronic disease- will monitor -diabetes mellitus; resumed long acting insulin- accu-check with SSI -cardiomyopathy; resumed BB, nitrate and diuretic -chronic renal insufficiency; will monitor the renal function for now -hypothyroidism; resumed home meds -DVT prophylaxis;Conrad Manuel MD Jun 18, 2016 10:37
[2016-06-18 12:00] VITALS: BP 128/55; PULSE 69; RESP 20; TEMP 98.1; O2SAT 94
--- NOTE | 2016-06-18 13:45 | PD.ID.CON ---
History of Present Illness Service ID Consult Requested By Reason for Consult Evaluation and Mment of bilateral LE non healing wounds. Primary Care Physician Non-Staff Diagnoses: History of Present Illness Patient is a 60-year-old female, admitted to the hospital for further evaluation of severe lower extremity swelling with extensive ulcers, with significant amount of drainage. Patient was recently hospitalized around [facility] with cellulitis and draining wounds in both legs. She was treated for cellulitis, and stasis ulcers. Apparently an Unna boot was tried but it was not tolerated so it was removed. She was discharge on April 25, and according to the patient there was no specific wound care orders done as an outpatient. She had home health nurses coming to her house but it was not regular. She continued to have the same problem with pain and swelling and draining wound, and about 4 days prior to admission she started noticing a smell from her care physician, and she was given Bactrim which offered some improvement but it started draining again profusely, and she was having significant amount of pain. She presented to the hospital for further evaluation and treatment. Patient denies any fever or chills or sweats. She has not had any respiratory complain as far as congestion cough or sore throat. Or any diarrhea or urinary complaints. Patient has been seeing a service center technician for an ulcer that she developed on her second and third toes on the left foot. Since admission she has not been febrile. Her initial WBC count was 12,000. She is complaining of severe pain in her lower extremity. Patient states that she does not tolerate leg elevation very well because of the severe pain. Patient also has known peripheral vascular disease, and she had an arteriogram done and this was in 2014 and she was found to have several lesions. However during that time she had a severe reaction to the contrast media and she went into pulmonary edema. An patient has been postponing any further evaluation or intervention done to treat her peripheral vascular disease. It was felt that she would be better off getting a surgical revascularization procedure rather than procedure done by an interventional radiologist. Infectious disease consultation has been requested on this admission for antibiotic recommendation on this patient with cellulitis and stasis ulcers. Review of Systems ROS Limitations: Other (unable to obtain due to excruciating pain even after premedicating.) Constitutional: COMPLAINS OF: Fever, DENIES: Diaphoretic episodes, Fatigue, Weight gain, Weight loss, Chills, Dizziness, Change in appetite, Night Sweats Endocrine: DENIES: Abnorml menstrual pattern, Heat/cold intolerance, Polydipsia , Polyuria, Polyphagia Eyes: DENIES: Blurred vision, Diplopia, Eye inflammation, Eye pain, Vision loss , Photosensitivity, Double Vision Ears, nose, mouth, throat: DENIES: Tinnitus, Hearing loss, Vertigo, Nasal discharge, Oral lesions, Throat pain, Hoarseness, Ear Pain, Running Nose, Epistaxis, Sinus Pain, Toothache, Odynophagia Respiratory: DENIES: Apneas, Cough, Snoring, Wheezing, Hemoptysis, Sputum production, Shortness of breath Cardiovascular: DENIES: Chest pain, Palpitations, Syncope, Dyspnea on Exertion , PND, Lower Extremity Edema, Orthopnea, Claudication Gastrointestinal: DENIES: Abdominal pain, Black stools, Bloody stools, Constipation, Diarrhea, Nausea, Vomiting, Difficulty Swallowing, Anorexia Genitourinary: DENIES: Abnormal vaginal bleeding, Dysmenorrhea, Dyspareunia, Sexual dysfunction, Urinary frequency, Urinary incontinence, Urgency, Hematuria , Dysuria, Nocturia, Vaginal discharge Musculoskeletal: COMPLAINS OF: Joint pain, Joint Swelling Integumentary: COMPLAINS OF: Abnormal pigmentation, DENIES: Pruritus, Rash, Nail changes, Breast masses, Breast skin changes, Nipple discharge Hematologic/lymphatic: DENIES: Bruising, Lymphadenopathy Immunologic/allergic: DENIES: Eczema, Urticaria Neurologic: COMPLAINS OF: Abnormal gait (unable to walk due to pain.), DENIES : Headache, Localized weakness, Paresthesias, Seizures, Speech Problems, Tremor , Poor Balance Psychiatric: DENIES: Anxiety, Confusion, Mood changes, Depression, Hallucinations, Agitation, Suicidal Ideation, Homicidal Ideation, Delusions Past Family Social History Allergies: Coded Allergies: Contrast Media (Verified Allergy, Severe, Flash pulmonary edema , 06/16/16) PEANUTS (Verified Allergy, Severe, rash, 06/16/16) Past Medical History PVD - has CTA last year and has lesions that could be corrected Hypertension Diabetes Cardiomyopathysustained after contrast-induced flash pulmonary edema- latest EF was 30% in March 2016. Obesity Hypothyroidism History of dermoid cyststatus post left oophorectomy 25 years ago Past Surgical History Left oophorectomy for dermoid cyst removal Cholecystectomy Hernia repair Reported Medications Reported Meds & Active Scripts Active Oxycodone-Acetaminophen 10-325 mg Tab 1 Tab PO Q4HR PRN Duragesic Patch 72 HR (Fentanyl) 50 Mcg/Hr Patch 1 Patch TD Q3D Oxycodone-Acetaminophen 5-325 mg Tab 1 Tab PO Q4H PRN Neurontin (Gabapentin) 300 Mg Cap 300 Mg PO BID Lactinex (Lactobacillus Acidophilus) 1 Chew 1 Tab CHEW TID Reported Citroma Liq (Magnesium Citrate) 300 Ml Liq 296 Ml PO DAILY PRN Fleet Enema Rectal (Sodium Phosphates Rectal) 7-19 Gm/118 Ml Enem 118 Ml RECTAL DAILY PRN Dulcolax Supp (Bisacodyl) 10 Mg Supp 10 Mg RECTAL DAILY PRN Glucagen Hypokit Inj Kit (Glucagon (Rdna) Inj Kit) 1 Mg Kit 1 Mg IM ONCE PRN Milk of Magnesia Liq (Magnesium Hydroxide) 400 Mg/5 Ml Susp 30 Ml PO Q24HR PRN Dakins Solution Quarter Strength Topical (Sodium Hypochlorite Topical) 0.125% Soln 1 Applic TOPICAL DAILY Humalog Inj (Insulin Human Lispro) 1,000 Unit/10 Ml Vial 2-10 Units SQ Q6HR PRN Sugars 151-200,(2)units; sugars 201-250,(4)units; sugars 251-300,(6)units; sugars 301-350,(8)units; sugars 351-400,(10)units. Greater than 400 call Clonazepam 0.5 Mg Tab 0.5 Mg PO Q8HR PRN Isosorbide Dinitrate 5 Mg Tab 5 Mg PO Q8HR Humalog Inj (Insulin Human Lispro) 1,000 Unit/10 Ml Vial 5-25 Units SQ HS Inject per sliding scale: sugars 0-70,(0)units; sugars 150-199,(5)units; sugars 200-249,(10)units; sugars 250-299,(15)units; sugars 300-349,(20)units; sugars more than 349,(25)units. Vibramycin (Doxycycline Hyclate) 100 Mg Cap 100 Mg PO BID Sodium Chloride 1 Gm Tab 1 Gm PO DAILY Thera-M (Multiple Vitamins W/ Minerals) 1 Tab 1 Tab PO DAILY Losartan (Losartan Potassium) 100 Mg Tab 100 Mg PO DAILY Levemir Inj (Insulin Detemir) 1,000 unit/ 10 ML Vial 20 Units SQ HS Do not mix with any other Insulin. Levothyroxine (Levothyroxine Sodium) 175 Mcg Tab 175 Mcg PO DAILY Liothyronine (Liothyronine Sodium) 5 Mcg Tab 5 Mcg PO DAILY Lasix (Furosemide) 20 Mg Tab 20 Mg PO DAILY Cymbalta DR (Duloxetine HCl) 30 Mg Capdr 30 Mg PO Q12HR Wellbutrin SR 12 HR (Bupropion HCl) 150 Mg Tab 150 Mg PO Q12HR Carvedilol 25 Mg Tab 25 Mg PO BID Active Ordered Medications Current Medications Medications (Trade) Dose Ordered Sig/Virgilio Route Start Time Stop Time Status Last Admin (D50w (Vial) Inj) 25 ml UNSCH PRN IV PUSH 06/16/16 16:00 Glucagon 1 mg 1 mg UNSCH PRN OTHER 06/16/16 16:00 Pharmacy Profile Note 0 ml @ 0 mls/hr UNSCH OTHER 06/16/16 16:00 ([facility]) 0 ml @ 0 mls/hr UNSCH OTHER 06/16/16 16:00 (Wellbutrin Sr) 150 mg Q12HR PO 06/16/16 21:00 06/18/16 09:34 (Coreg) 25 mg BID PO 06/16/16 21:00 06/18/16 09:35 (Cymbalta Dr) 30 mg BID PO 06/16/16 21:00 06/18/16 09:35 (Duragesic 50 Mcg Patch.72 Hr) 1 patch Q3D TD 06/16/16 17:00 (Neurontin) 300 mg BID PO 06/16/16 21:00 06/18/16 09:35 (Isordil) 5 mg TIDAC PO 06/16/16 17:00 06/18/16 16:40 (Cytomel) 5 mcg DAILY PO 06/17/16 09:00 06/18/16 09:35 (Lactinex) 1 tab TID PO 06/16/16 18:00 06/18/16 16:44 (Synthroid) 150 mcg DAILY@06 PO 06/17/16 06:00 06/18/16 06:20 Miscellaneous Information 1 Q3D T-DERMAL 06/19/16 17:00 (Zofran Inj) 4 mg Q8HR PRN IV PUSH 06/16/16 16:00 (Tylenol) 650 mg Q4H PRN PO 06/16/16 16:00 ([place] 5-325 Mg) 1 tab Q4H PRN PO 06/16/16 16:00 06/18/16 06:21 (Lasix Inj) 20 mg DAILY IV PUSH 06/17/16 09:00 06/18/16 09:36 Levothyroxine Sodium 25 mcg 25 mcg DAILY@06 PO 06/17/16 06:00 06/18/16 06:20 (Vancomycin Inj/ NS 500 ml Inj) 514 ml @ 250 mls/hr Q24H IV 06/16/16 17:00 06/18/16 16:40 Miscellaneous Information SPECIFIC LAB TO BE [facility]... ONCE ONCE XX 06/19/16 16:45 06/19/16 16:46 (Zosyn 3.375 Gm Premix) 50 ml @ 100 mls/hr Q6H IV 06/16/16 21:00 06/18/16 14:36 (Levemir Inj) 20 units HS SQ 06/16/16 21:00 06/17/16 23:38 (Cozaar) 100 mg DAILY PO 06/17/16 09:00 06/18/16 09:35 Family History reviewed and NC to current ID problems. Will review more details when patient more comfortable. She was screaming in pain and was uncomfortable and her provided most historical facts. Social History Denies smoking Denies alcohol abuse Denies illicit drug use Physical Exam Vital Signs Vital Signs Date Time Temp Pulse Resp B/P Pulse Ox O2 Delivery O2 Flow Rate FiO2 06/18/16 12:00 98.1 69 20 128/55 94 06/18/16 08:00 99.0 88 22 171/77 96 06/18/16 04:00 98.1 78 18 136/64 95 06/18/16 00:00 98.6 77 18 120/57 95 06/17/16 21:00 Room Air 06/17/16 20:00 98.4 77 16 107/59 91 06/17/16 17:50 98.5 78 20 107/53 98 Physical Exam GENERAL: This is a well-nourished, well-developed patient, in no apparent distress. SKIN: No rashes, ecchymoses or lesions. Cool and dry. HEAD: Atraumatic. Normocephalic. No temporal or scalp tenderness. EYES: Pupils equal round and reactive. Extraocular motions intact. No scleral icterus. No injection or drainage. ENT: Nose without bleeding, purulent drainage or septal hematoma. Throat without erythema, tonsillar hypertrophy or exudate. Uvula midline. Airway patent. NECK: Trachea midline. Supple, nontender, no meningeal signs. CARDIOVASCULAR: HS audible. RESPIRATORY: Clear to auscultation. Breath sounds equal bilaterally. No wheezes , rales, or rhonchi. GASTROINTESTINAL: Abdomen soft, non-tender, nondistended. MUSCULOSKELETAL: Bilateral LE ulcers with areas of eschar formation, some degree of maceration of tissues noted. On right heel plantar aspect a coin shaped area of black dry eschar noted. On RLE plantar aspect heel another area of eschar but larger on this side with erythema on plantar aspect noted. Very sensitive to touch and patient would scream in pain even after pain med used for premedication. NEUROLOGICAL: Awake and alert. Grossly nonfocal Psych cooperative IV line sites with no e/o infection. Laboratory Date/Time Procedure Status Source Growth 06/16/16 15:20 Aerobic Blood Culture - Preliminary Resulted Blood Peripheral NO GROWTH IN 2 DAYS 06/16/16 15:20 Anaerobic Blood Culture - Preliminary Resulted Blood Peripheral NO GROWTH IN 2 DAYS Result Diagram: 06/17/16 0635 06/17/16 0635 Imaging Last Impressions Chest X-Ray 06/16/16 1430 Signed Impressions: Service Date/Time: Thursday, June 16, 2016 14:53 - CONCLUSION: 1. No acute cardiopulmonary findings. Jose Rogers MD Assessment and Plan Assessment and Plan Cellulitis of both legs with bilateral lower extremity wounds with history of PVD Anemia of chronic disease DM2 uncontrolled Morbid Obesity Chronic renal insufficiency Hypothyroidism Recs: Continue Zosyn IV DC Vanco IV Continue wound care. Reviewed Vascular notes. Angiogram and debridement of wounds planned. Concern for gangrene of left side toes and heel. Will wait for further input from . d/w RN, pts spouse and Charisse Argueta MD Jun 18, 2016 13:45
[2016-06-18] MEDS ORDERED: HYDROmorphone HCL PF 1 MG/ML VIAL SQ ONE (14:00)
[2016-06-18] MEDS ORDERED: HYDROmorphone HCL PF 1 MG/ML VIAL IV ONE (14:45)
[2016-06-18 16:00] VITALS: BP 148/65; PULSE 76; RESP 20; TEMP 98.5; O2SAT 90
[2016-06-18] MEDS: VANCOMYCIN INJ 1,400 MG in SODIUM CHLORID 0.9% 500 ML INJ 500 ML IV SCH (16:40)
[2016-06-18 20:00] VITALS: BP 115/58; PULSE 75; RESP 16; TEMP 98.9; O2SAT 100
[2016-06-18] MEDS: INSULIN DETEMIR 100 UNITS/ML VIAL SQ SCH (22:43)
[2016-06-19] VITALS: BP 123/55; PULSE 70; RESP 18; TEMP 97.8; O2SAT 92
[2016-06-19] MEDS: PIPERACIL-TAZO 3.375 GM PREMIX 50 ML IV SCH ×4 (03:44→21:53)
[2016-06-19 04:00] VITALS: BP 117/57; PULSE 76; RESP 18; TEMP 98.4; O2SAT 94
[2016-06-19] MEDS: INSULIN ASPART SUPPLEMENTAL SCALE SQ SCH ×4 (05:44→21:00)
[2016-06-19] MEDS: LEVOTHYROXINE SODIUM 25 MCG TAB PO SCH (05:47)
[2016-06-19] MEDS: LEVOTHYROXINE SODIUM 150 MCG TAB PO SCH (05:48)
[2016-06-19 06:51] LABS: AUTOMATED NEUTROPHIL # 10.8 TH/MM3 (1.8-7.7); BASOPHIL # 0.1 TH/MM3 (0-0.2); BASOPHIL % 0.4 % (0.0-2.0); EOSINOPHIL # 0.2 TH/MM3 (0-0.4); EOSINOPHIL % 1.5 % (0.0-4.0); HEMATOCRIT 24.9 % (35.0-46.0); LYMPH % 10.5 % (9.0-44.0); LYMPHOCYTE # 1.4 TH/MM3 (1.0-4.8); MEAN CELL VOLUME 77.7 FL (80.0-100.0); MEAN CORPUSCULAR HEMOGLOBIN 24.4 PG (27.0-34.0); MEAN CORPUSCULAR HGB CONC 31.4 % (32.0-36.0); MONO % 8.4 % (0.0-8.0); NEUT % 79.2 % (16.0-70.0); PLATELET COUNT 518 TH/MM3 (150-450); RED CELL DISTRIBUTION WIDTH 15.3 % (11.6-17.2); WHITE BLOOD COUNT 13.6 TH/MM3 (4.0-11.0)
[2016-06-19 06:55] LABS: HEMO FLAGS AUTO DIFF
[2016-06-19 07:21] LABS: ALKALINE PHOSPHATASE 165 U/L (45-117); ALT (GPT) 30 U/L (10-53); ANION GAP 8 MEQ/L (5-15); AST (GOT) 31 U/L (15-37); BICARBONATE 27.9 MEQ/L (21.0-32.0); BLOOD UREA NITROGEN 20 MG/DL (7-18); CHLORIDE 97 MEQ/L (98-107); GLOMERULAR FILTRATION RATE 50 ML/MIN (>89); SODIUM (NA) 133 MEQ/L (136-145); TOTAL BILIRUBIN ADULT 0.5 MG/DL (0.2-1.0)
[2016-06-19 07:45] LABS: BANDS 4 % (0-6); METAMYELOCYTES 2 % (0-1); MYELOCYTES 1 % (0-0); NEUTROPHIL # MANUAL DIFF 12.1 TH/MM3 (1.8-7.7); PLATELET ESTIMATE SMEAR HIGH (NORMAL); PLATELET MORPHOLOGY NORMAL (NORMAL); POLYS (SEG NEUTROPHILS) 82 % (16-70); SCAN/DIFF FINAL DIFF MANUAL; WBC DIFF SAMPLE 100
[2016-06-19 08:00] VITALS: BP 159/64; PULSE 74; PULSE 75; RESP 18; TEMP 98; O2SAT 96
[2016-06-19] MEDS: DULoxetine HCl DR 30 MG CAP PO SCH ×2 (08:58→21:52)
[2016-06-19] MEDS: ISOSORBIDE DINITRATE 5 MG TAB PO SCH ×3 (08:58→17:39)
[2016-06-19] MEDS: buPROPion HCL 150 MG SUSTAINED RELEASE TAB PO SCH ×2 (08:58→21:52)
[2016-06-19] MEDS: GABAPENTIN 300 MG CAP PO SCH ×2 (08:58→21:52)
[2016-06-19] MEDS: CARVEDILOL 12.5 MG TAB PO SCH ×2 (08:58→21:52)
[2016-06-19] MEDS: LOSARTAN 50 MG TAB PO SCH (08:58)
[2016-06-19] MEDS: LIOTHYRONINE SODIUM 5 MCG TAB PO SCH (08:59)
[2016-06-19] MEDS: FUROSEMIDE 20 MG/2 ML VIAL IV PUSH SCH (08:59)
[2016-06-19] MEDS: LACTOBACILLUS ACIDOPHILUS TAB PO SCH ×3 (08:59→17:39)
[2016-06-19] MEDS: ACETAMINOPHEN/HYDROcodone 325 MG/5 MG TAB PO PRN ×2 (09:05→12:52)
--- NOTE | 2016-06-19 09:38 | PD.VS.PN ---
Subjective Subjective/Hospital Course Pt w B LE wounds, R>>>L worse Also has severe B LE swelling Able to bear weight she says Objective Vitals/I&O Date Time Temp Pulse Resp B/P Pulse Ox O2 Delivery O2 Flow Rate FiO2 06/19/16 04:00 98.4 76 18 117/57 94 06/19/16 00:00 97.8 70 18 123/55 92 06/18/16 21:00 Room Air 06/18/16 20:00 98.9 75 16 115/58 100 06/18/16 16:00 98.5 76 20 148/65 90 06/18/16 12:00 98.1 69 20 128/55 94 06/19/16 06/19/16 06/19/16 07:00 15:00 23:00 Intake Total 120 ml Balance 120 ml Physical Exam B LE edematous, dry gangrene toes legs wrapped Laboratory Laboratory Tests Test 06/19/16 05:35 White Blood Count 13.6 Red Blood Count 3.20 Hemoglobin 7.8 Hematocrit 24.9 Mean Corpuscular Volume 77.7 Mean Corpuscular Hemoglobin 24.4 Mean Corpuscular Hemoglobin 31.4 Concent Red Cell Distribution Width 15.3 Platelet Count 518 Mean Platelet Volume 6.3 Neutrophils (%) (Auto) 79.2 Lymphocytes (%) (Auto) 10.5 Monocytes (%) (Auto) 8.4 Eosinophils (%) (Auto) 1.5 Basophils (%) (Auto) 0.4 Neutrophils # (Auto) 10.8 Lymphocytes # (Auto) 1.4 Monocytes # (Auto) 1.1 Eosinophils # (Auto) 0.2 Basophils # (Auto) 0.1 CBC Comment AUTO DIFF Differential Total Cells 100 Counted Neutrophils % (Manual) 82 Band Neutrophils % 4 Lymphocytes % 10 Monocytes % 1 Neutrophils # (Manual) 12.1 Metamyelocytes 2 Myelocytes 1 Differential Comment FINAL DIFF MANUAL Platelet Estimate HIGH Platelet Morphology Comment NORMAL Sodium Level 133 Potassium Level 4.0 Chloride Level 97 Carbon Dioxide Level 27.9 Anion Gap 8 Blood Urea Nitrogen 20 Creatinine 1.10 Estimat Glomerular Filtration 50 Rate Random Glucose 86 Calcium Level 8.7 Total Bilirubin 0.5 Aspartate Amino Transf 31 (AST/SGOT) Alanine Aminotransferase 30 (ALT/SGPT) Alkaline Phosphatase 165 Total Protein 7.4 Albumin 2.0 Date/Time Procedure Status Source Growth 06/16/16 15:20 Aerobic Blood Culture - Preliminary Resulted Blood Peripheral NO GROWTH IN 2 DAYS 06/16/16 15:20 Anaerobic Blood Culture - Preliminary Resulted Blood Peripheral NO GROWTH IN 2 DAYS Assessment and Plan Plan Multifactorial LE wounds, chronic in a patient who is minimally ambulatory. 1. Wound care: calcium alginate Ag and compression toes to thighs 2. ABIs 3. Tentatively on for B LE angiogram/angioplasty/stent on Thursday under GETA and will prep for possible allergic reaction given prior flash pulmonary edema 4. Will debride B LE in the OR during angio Shamar Taylor MD Jun 19, 2016 09:38
--- NOTE | 2016-06-19 10:53 | HHI.PR ---
Subjective Remarks looks more comfortable today. pain is better. no fever. no new complaints. Objective Vitals Vital Signs Date Time Temp Pulse Resp B/P Pulse Ox O2 Delivery O2 Flow Rate FiO2 06/19/16 04:00 98.4 76 18 117/57 94 06/19/16 00:00 97.8 70 18 123/55 92 06/18/16 21:00 Room Air 06/18/16 20:00 98.9 75 16 115/58 100 06/18/16 16:00 98.5 76 20 148/65 90 06/18/16 12:00 98.1 69 20 128/55 94 I/O 06/18/16 06/18/16 06/18/16 06/19/16 06/19/16 06/19/16 07:00 15:00 23:00 07:00 15:00 23:00 Intake Total 240 ml 480 ml 360 ml 120 ml Output Total 500 ml 350 ml Balance 240 ml -20 ml 10 ml 120 ml Intake Oral 240 ml 480 ml 360 ml 120 ml Output Urine Total 500 ml 350 ml # Voids 1 2 1 # Bowel Movements 0 0 2 Result Diagram: 06/19/16 0535 06/19/16 0535 Imaging Last Impressions Chest X-Ray 06/16/16 1430 Signed Impressions: Service Date/Time: Thursday, June 16, 2016 14:53 - CONCLUSION: 1. No acute cardiopulmonary findings. Jose Rogers MD Objective Remarks GENERAL: This is a well-nourished, well-developed patient, in no apparent distress. CARDIOVASCULAR: Regular rate and regular rhythm without murmurs, gallops, or rubs. RESPIRATORY: Clear to auscultation. Breath sounds equal bilaterally. No wheezes , rales, or rhonchi. GASTROINTESTINAL: Abdomen soft, non-tender, nondistended. Normal, active bowel sounds MUSCULOSKELETAL: both legs covered with clean dressing. NEURO: Alert & Oriented x4 to person, place, time, situation. Moves all ext x4 Procedures none Medications and IVs Current Medications Piperacillin Sod/ Tazobactam Sod 100 ml @ 200 mls/hr ONCE STAT IV Last administered on 06/16/16t 14:55; Start 06/16/16 at 14:30; Stop 06/16/16 at 14:59 ; Status DC Vancomycin HCl/ Sodium Chloride (Vancomycin Inj/ NS 250 ml Inj) 250 ml @ 250 mls/hr ONCE STAT IV ; Start 06/16/16 at 14:30; Stop 06/16/16 at 15:29; Status Cancel Lorazepam 1 mg 1 mg ONCE ONCE IV PUSH ; Start 06/16/16 at 15:00; Stop 06/16/16 at 15:02; Status DC Sodium Chloride (NS 1000 ml Inj) 1,000 ml @ 999 mls/hr BOLUS ONCE IV Last administered on 06/16/16 15:30; Start 06/16/16 at 15:00; Stop 06/16/16 at 16:00 ; Status DC Hydromorphone HCl (Dilaudid Pf Inj) 1 mg ONCE ONCE IV PUSH Last administered on 06/16/16 15:31; Start 06/16/16 at 15:15; Stop 06/16/16 at 15:16; Status DC Ondansetron HCl (Zofran Inj) 4 mg ONCE ONCE IV PUSH Last administered on 15:31; Start 06/16/16 at 15:15; Stop 06/16/16 at 15:16; Status DC Dextrose (D50w (Vial) Inj) 25 ml UNSCH PRN IV PUSH HYPOGLYCEMIA-SEE COMMENTS; Start 06/16/16 at 16:00 Glucagon (Glucagon Inj) 1 mg UNSCH PRN OTHER HYPOGLYCEMIA-SEE COMMENTS; Start 06/16/16 at 16:00 Insulin Aspart 1 1 ACHS SLIDING SCALE SQ Last administered on 06/17/16 23:38 ; Start 06/16/16 at 16:00 Pharmacy Profile Note 0 ml @ 0 mls/hr UNSCH OTHER ; Start 06/16/16 at 16:00; Stop 06/18/16 at 19:34; Status DC Pharmacy Profile Note ([facility]) 0 ml @ 0 mls/hr UNSCH OTHER ; Start 06/16/16 at 16:00 Bupropion HCl (Wellbutrin Sr) 150 mg Q12HR PO Last administered on 06/19/16 08 :58; Start 06/16/16 at 21:00 Carvedilol (Coreg) 25 mg BID PO Last administered on 06/19/16 08:58; Start at 21:00 Duloxetine HCl (Cymbalta Dr) 30 mg BID PO Last administered on 06/19/16 08:58 ; Start 06/16/16 at 21:00 Fentanyl (Duragesic 50 Mcg Patch.72 Hr) 1 patch Q3D TD ; Start 06/16/16 at 17: 00 Gabapentin (Neurontin) 300 mg BID PO Last administered on 06/19/16 08:58; Start 06/16/16 at 21:00 Insulin Detemir (Levemir Inj) 20 units Q12HR SQ ; Start 06/16/16 at 21:00; Stop 06/16/16 at 21:00; Status DC Isosorbide Dinitrate (Isordil) 5 mg TIDAC PO Last administered on 06/19/16 08: 58; Start 06/16/16 at 17:00 Liothyronine Sodium (Cytomel) 5 mcg DAILY PO Last administered on 06/19/16 08: 59; Start 06/17/16 at 09:00 Lactobacillus Acidophilus (Lactinex) 1 tab TID PO Last administered on 08:59; Start 06/16/16 at 18:00 Levothyroxine Sodium (Synthroid) 150 mcg DAILY@06 PO Last administered on 05:48; Start 06/17/16 at 06:00 Miscellaneous Information 1 Q3D T-DERMAL ; Start 06/19/16 at 17:00 Ondansetron HCl (Zofran Inj) 4 mg Q8HR PRN IV PUSH NAUSEA; Start 06/16/16 at 16 :00 Acetaminophen (Tylenol) 650 mg Q4H PRN PO FEVER; Start 06/16/16 at 16:00 Acetaminophen/ Hydrocodone Bitart ([place] 5-325 Mg) 1 tab Q4H PRN PO PAIN > 5 Last administered on 06/19/16 09:05; Start 06/16/16 at 16:00 Furosemide (Lasix Inj) 20 mg DAILY IV PUSH Last administered on 06/19/16 08:59 ; Start 06/17/16 at 09:00 Levothyroxine Sodium 25 mcg 25 mcg DAILY@06 PO Last administered on 06/19/16 05:47; Start 06/17/16 at 06:00 Vancomycin HCl/ Sodium Chloride (Vancomycin Inj/ NS 500 ml Inj) 514 ml @ 250 mls/hr Q24H IV Last administered on 06/18/16 16:40; Start 06/16/16 at 17:00; Stop 06/18/16 at 19:35; Status DC Miscellaneous Information SPECIFIC LAB TO BE ... ONCE ONCE XX ; Start at 16:45; Stop 06/19/16 at 16:46; Status Cancel Piperacillin Sod/ Tazobactam Sod (Zosyn 3.375 Gm Premix) 50 ml @ 100 mls/hr Q6H IV Last administered on 06/19/16 08:59; Start 06/16/16 at 21:00 Insulin Detemir (Levemir Inj) 20 units HS SQ Last administered on 06/18/16 22: 43; Start 06/16/16 at 21:00 Losartan Potassium (Cozaar) 100 mg DAILY PO Last administered on 06/19/16 08: 58; Start 06/17/16 at 09:00 Hydromorphone HCl (Dilaudid Pf Inj) 0.5 mg ONCE ONCE SQ ; Start 06/18/16 at 14: 00; Stop 06/18/16 at 14:01; Status Cancel Hydromorphone HCl (Dilaudid Pf Inj) 0.5 mg NOW ONCE IV Last administered on 14:45; Start 06/18/16 at 14:45; Stop 06/18/16 at 14:46; Status DC A/P Assessment and Plan - cellulitis of both legs with bilateral lower extremity wounds with history of PVD continue with IV Zosyn per ID- continue pain control- vascular surgery following; plan for angiogram and wound debridement next week. wound care following. -hyponatremia; seems to be chronic- asymptomatic- improved. -questionable episodes of confusion??-no further episodes- -anemia of chronic disease- will monitor -diabetes mellitus; resumed long acting insulin- accu-check with SSI -cardiomyopathy; resumed BB, nitrate and diuretic -chronic renal insufficiency; will monitor the renal function for now -hypothyroidism; resumed home meds -DVT prophylaxis;lovenox talked to the son (Kalpesh) in detail@ [phone]. Conrad Clancy MD Jun 19, 2016 10:53
[2016-06-19 12:00] VITALS: BP 109/57; PULSE 81; RESP 18; TEMP 98.2; O2SAT 93
[2016-06-19 16:00] VITALS: BP 122/66; PULSE 70; RESP 18; TEMP 97.5; O2SAT 94
[2016-06-19] MEDS ORDERED: PHARMACY ORDERED LAB XX ONE (16:45)
[2016-06-19] MEDS: REMOVE OLD PATCH T-DERMAL SCH (17:00)
[2016-06-19] MEDS: fentaNYL 50 MCG/HR PATCH TD SCH (17:40)
[2016-06-19 20:00] VITALS: BP 140/65; PULSE 73; RESP 20; TEMP 98.2; O2SAT 92
[2016-06-19] MEDS: INSULIN DETEMIR 100 UNITS/ML VIAL SQ SCH (21:53)
[2016-06-20] VITALS (7 sets, daily range): BP systolic 126–167; BP diastolic 60–78; PULSE 67–77; RESP 18–20; TEMP 97.3–98.3; O2SAT 93–98
[2016-06-20] MEDS: ACETAMINOPHEN/HYDROcodone 325 MG/5 MG TAB PO PRN ×3 (03:56→17:28)
[2016-06-20] MEDS: PIPERACIL-TAZO 3.375 GM PREMIX 50 ML IV SCH ×4 (03:56→23:09)
[2016-06-20] MEDS: LEVOTHYROXINE SODIUM 25 MCG TAB PO SCH (05:16)
[2016-06-20] MEDS: LEVOTHYROXINE SODIUM 150 MCG TAB PO SCH (05:16)
[2016-06-20] MEDS: INSULIN ASPART SUPPLEMENTAL SCALE SQ SCH ×4 (06:07→21:00)
[2016-06-20 07:52] LABS: HEMATOCRIT 25.8 % (35.0-46.0)
[2016-06-20] MEDS: buPROPion HCL 150 MG SUSTAINED RELEASE TAB PO SCH ×2 (08:11→23:09)
[2016-06-20] MEDS: ISOSORBIDE DINITRATE 5 MG TAB PO SCH ×3 (08:12→17:23)
[2016-06-20] MEDS: GABAPENTIN 300 MG CAP PO SCH ×2 (08:12→23:09)
[2016-06-20] MEDS: LOSARTAN 50 MG TAB PO SCH (08:12)
[2016-06-20] MEDS: FUROSEMIDE 20 MG/2 ML VIAL IV PUSH SCH (08:12)
[2016-06-20] MEDS: CARVEDILOL 12.5 MG TAB PO SCH ×2 (08:12→23:09)
[2016-06-20] MEDS: DULoxetine HCl DR 30 MG CAP PO SCH ×2 (08:13→23:09)
[2016-06-20] MEDS: LIOTHYRONINE SODIUM 5 MCG TAB PO SCH (08:13)
[2016-06-20] MEDS: LACTOBACILLUS ACIDOPHILUS TAB PO SCH ×3 (08:14→17:23)
--- NOTE | 2016-06-20 12:22 | HHI.PR ---
Subjective Remarks in no acute distress and afebrile. however is confused and reportedly has on and off hallucinations. son st the bedside. d/w the RN. Objective Vitals Vital Signs Date Time Temp Pulse Resp B/P Pulse Ox O2 Delivery O2 Flow Rate FiO2 06/20/16 11:04 Room Air 06/20/16 08:05 97.8 76 20 149/65 98 06/20/16 04:00 98.0 75 18 138/63 93 06/20/16 00:00 98.3 74 18 132/60 93 06/19/16 21:00 Room Air 06/19/16 20:00 98.2 73 20 140/65 92 06/19/16 16:00 97.5 70 18 122/66 94 I/O 06/19/16 06/19/16 06/19/16 06/20/16 06/20/16 06/20/16 07:00 15:00 23:00 07:00 15:00 23:00 Intake Total 120 ml 360 ml 120 ml 240 ml Output Total 800 ml Balance 120 ml -440 ml 120 ml 240 ml Intake Oral 120 ml 360 ml 120 ml 240 ml Output Urine Total 800 ml # Voids 1 1 0 # Bowel Movements 2 1 1 0 Result Diagram: 06/20/16 0709 06/19/16 0535 Imaging Last Impressions Chest X-Ray 06/16/16 1430 Signed Impressions: Service Date/Time: Thursday, June 16, 2016 14:53 - CONCLUSION: 1. No acute cardiopulmonary findings. Jose Rogers MD Objective Remarks GENERAL: This is a well-nourished, well-developed patient, in no apparent distress. CARDIOVASCULAR: Regular rate and regular rhythm without murmurs, gallops, or rubs. RESPIRATORY: Clear to auscultation. Breath sounds equal bilaterally. No wheezes , rales, or rhonchi. GASTROINTESTINAL: Abdomen soft, non-tender, nondistended. Normal, active bowel sounds MUSCULOSKELETAL: both legs covered with clean dressing. NEURO: Alert & Oriented x4 to person, place, time, situation. Moves all ext x4 Procedures none Medications and IVs Current Medications Piperacillin Sod/ Tazobactam Sod 100 ml @ 200 mls/hr ONCE STAT IV Last administered on 06/16/16t 14:55; Start 06/16/16 at 14:30; Stop 06/16/16 at 14:59 ; Status DC Vancomycin HCl/ Sodium Chloride (Vancomycin Inj/ NS 250 ml Inj) 250 ml @ 250 mls/hr ONCE STAT IV ; Start 06/16/16 at 14:30; Stop 06/16/16 at 15:29; Status Cancel Lorazepam 1 mg 1 mg ONCE ONCE IV PUSH ; Start 06/16/16 at 15:00; Stop 06/16/16 at 15:02; Status DC Sodium Chloride (NS 1000 ml Inj) 1,000 ml @ 999 mls/hr BOLUS ONCE IV Last administered on 06/16/16 15:30; Start 06/16/16 at 15:00; Stop 06/16/16 at 16:00 ; Status DC Hydromorphone HCl (Dilaudid Pf Inj) 1 mg ONCE ONCE IV PUSH Last administered on 06/16/16 15:31; Start 06/16/16 at 15:15; Stop 06/16/16 at 15:16; Status DC Ondansetron HCl (Zofran Inj) 4 mg ONCE ONCE IV PUSH Last administered on 15:31; Start 06/16/16 at 15:15; Stop 06/16/16 at 15:16; Status DC Dextrose (D50w (Vial) Inj) 25 ml UNSCH PRN IV PUSH HYPOGLYCEMIA-SEE COMMENTS; Start 06/16/16 at 16:00 Glucagon (Glucagon Inj) 1 mg UNSCH PRN OTHER HYPOGLYCEMIA-SEE COMMENTS; Start 06/16/16 at 16:00 Insulin Aspart 1 1 ACHS SLIDING SCALE SQ Last administered on 06/17/16 23:38 ; Start 06/16/16 at 16:00 Pharmacy Profile Note 0 ml @ 0 mls/hr UNSCH OTHER ; Start 06/16/16 at 16:00; Stop 06/18/16 at 19:34; Status DC Pharmacy Profile Note ([facility]) 0 ml @ 0 mls/hr UNSCH OTHER ; Start 06/16/16 at 16:00 Bupropion HCl (Wellbutrin Sr) 150 mg Q12HR PO Last administered on 06/20/16 08 :11; Start 06/16/16 at 21:00 Carvedilol (Coreg) 25 mg BID PO Last administered on 06/20/16 08:12; Start at 21:00 Duloxetine HCl (Cymbalta Dr) 30 mg BID PO Last administered on 06/20/16 08:13 ; Start 06/16/16 at 21:00 Fentanyl (Duragesic 50 Mcg Patch.72 Hr) 1 patch Q3D TD Last administered on 17:40; Start 06/16/16 at 17:00 Gabapentin (Neurontin) 300 mg BID PO Last administered on 06/20/16 08:12; Start 06/16/16 at 21:00 Insulin Detemir (Levemir Inj) 20 units Q12HR SQ ; Start 06/16/16 at 21:00; Stop 06/16/16 at 21:00; Status DC Isosorbide Dinitrate (Isordil) 5 mg TIDAC PO Last administered on 06/20/16 12: 11; Start 06/16/16 at 17:00 Liothyronine Sodium (Cytomel) 5 mcg DAILY PO Last administered on 06/20/16 08: 13; Start 06/17/16 at 09:00 Lactobacillus Acidophilus (Lactinex) 1 tab TID PO Last administered on 12:13; Start 06/16/16 at 18:00 Levothyroxine Sodium (Synthroid) 150 mcg DAILY@06 PO Last administered on 05:16; Start 06/17/16 at 06:00 Miscellaneous Information 1 Q3D T-DERMAL ; Start 06/19/16 at 17:00 Ondansetron HCl (Zofran Inj) 4 mg Q8HR PRN IV PUSH NAUSEA; Start 06/16/16 at 16 :00 Acetaminophen (Tylenol) 650 mg Q4H PRN PO FEVER; Start 06/16/16 at 16:00 Acetaminophen/ Hydrocodone Bitart ([place] 5-325 Mg) 1 tab Q4H PRN PO PAIN > 5 Last administered on 06/20/16 08:13; Start 06/16/16 at 16:00 Furosemide (Lasix Inj) 20 mg DAILY IV PUSH Last administered on 06/20/16 08:12 ; Start 06/17/16 at 09:00 Levothyroxine Sodium 25 mcg 25 mcg DAILY@06 PO Last administered on 06/20/16 05:16; Start 06/17/16 at 06:00 Vancomycin HCl/ Sodium Chloride (Vancomycin Inj/ NS 500 ml Inj) 514 ml @ 250 mls/hr Q24H IV Last administered on 06/18/16 16:40; Start 06/16/16 at 17:00; Stop 06/18/16 at 19:35; Status DC Miscellaneous Information SPECIFIC LAB TO BE ... ONCE ONCE XX ; Start at 16:45; Stop 06/19/16 at 16:46; Status Cancel Piperacillin Sod/ Tazobactam Sod (Zosyn 3.375 Gm Premix) 50 ml @ 100 mls/hr Q6H IV Last administered on 06/20/16 08:13; Start 06/16/16 at 21:00 Insulin Detemir (Levemir Inj) 20 units HS SQ Last administered on 06/19/16 21: 53; Start 06/16/16 at 21:00 Losartan Potassium (Cozaar) 100 mg DAILY PO Last administered on 06/20/16 08: 12; Start 06/17/16 at 09:00 Hydromorphone HCl (Dilaudid Pf Inj) 0.5 mg ONCE ONCE SQ ; Start 06/18/16 at 14: 00; Stop 06/18/16 at 14:01; Status Cancel Hydromorphone HCl (Dilaudid Pf Inj) 0.5 mg NOW ONCE IV Last administered on 14:45; Start 06/18/16 at 14:45; Stop 06/18/16 at 14:46; Status DC A/P Assessment and Plan - cellulitis of both legs with bilateral lower extremity wounds with history of PVD continue with IV Zosyn per ID- continue pain control- vascular surgery following; plan for angiogram and wound debridement next week. wound care following. -confusional episode with reported hallucinations- continue neuro-checks- will consult neurology and psych. -hyponatremia; seems to be chronic- asymptomatic- improved. -questionable episodes of confusion??-no further episodes- -anemia of chronic disease- H/H fairly stable.will monitor -diabetes mellitus; resumed long acting insulin- accu-check with SSI -cardiomyopathy; resumed BB, nitrate and diuretic -chronic renal insufficiency; will monitor the renal function for now -hypothyroidism; resumed home meds -DVT prophylaxis;Conrad Manuel MD Jun 20, 2016 12:22
--- NOTE | 2016-06-20 18:34 | RADRPT ---
EXAM DATE/TIME: 06/20/2016 17:52 [facility] COMPARISON: No previous studies available for comparison. INDICATIONS : Altered mental status; possible sepsis. RADIATION DOSE: 56.35 CTDIvol (mGy) MEDICAL HISTORY : Hypertension. Cardiovascular disease Diabetes mellitus type 2. SURGICAL HISTORY : None. ENCOUNTER: Initial ACUITY: 1 day PAIN SCALE: 10/10 LOCATION: cranial TECHNIQUE: Multiple contiguous axial images were obtained of the head. Using automated exposure control and adj ustment of the mA and/or kV according to patient size, radiation dose was kept as low as reasonably a chievable to obtain optimal diagnostic quality images. FINDINGS: There is no evidence for intracranial hemorrhage, mass effect, mass lesions, or edema. The visualize d bony structures appear intact. Slight degree of brain atrophy is seen. Slight periventricular whit e matter changes are seen nonspecific mostly consistent with chronic small vessel ischemic changes. There are no signs of acute infarction for technique. CONCLUSION: Slight atrophic and small vessel ischemic changes without any evidence for acute hemorrhage or mass effect. Smith Boateng MD on June 20, 2016 at 18:32 Board Certified Radiologist. This report was verified electronically.
--- NOTE | 2016-06-20 21:52 | MB ---
cc: JOSE PASCUAL M.D. DATE OF CONSULTATION 06/20/16 HISTORY OF PRESENT ILLNESS She is seen in neurological consultation. She has been in the hospital since June 16 when she was admitted with cellulitis and general decline. This woman has a history of diabetes mellitus, cellulitis, peripheral vascular disease, history of cardiomyopathy. She has been on multiple medications including 1. Duragesic patch, 2. Oxycodone 3. Neurontin 4. Cymbalta 5. Wellbutrin She is noted to be hallucinating. She is talking about family members. She is speaking on things that are not there. Her son is at bedside. As per my discussion with the son, the living conditions seem to be limited as the patient's mobility is poor. The patient lives with her and apparently walks minimally. She was in the hospital a few months ago apparently with cellulitis. Current 1. Cytomel. 2. Cozaar. 3. Lasix 4. Levothyroxine 5. Bupropion 150 mg q. 12 6. Carvedilol 7. Cymbalta 30 mg twice a day. 8. Gabapentin 300 mg twice a day. 9. Piperacillin. 10. Fentanyl 50 mcg every 72 hours 11. Isosorbide 12. hydrocodone LABORATORY DATA Hemoglobin down to 8.4 yesterday. WBC 13.6 and on admission WBC was 14.2 and hemoglobin was 8.3. Sodium on admission 127 and yesterday 133, potassium normal. BUN 20, creatinine 1.1 and this is from yesterday but on admission they were 36 and 1.41 respectively. Glucose 86. PHYSICAL EXAMINATION The patient lying across the bed and apparently this has been her behavior. She was adjusted in bed and then wanted to get out, wanted to stand up and go to the bathroom but evidently unable to do so. She is either asleep or screaming and uncomfortable. When awakened, she was actually oriented, knows she is in the hospital and feels she needs to go home. She gazes to the right and left. She was able to count fingers bilaterally. There is no facial asymmetry. She moves the extremities grossly equally with fairly severe weakness in the lower extremities where she has extensive . She is obese with some edema/cellulitis in the lower extremities. Reflexes difficult to be obtained, probably absent, at the elbows and knees. ASSESSMENT Likely metabolic encephalopathy from underlying infectious process, electrolyte dysfunction/imbalance and multiple medications with a central nervous system effect. We will obtain a CT brain for completeness to be sure there is no subdural, etc. Continue the aggressive medical care and supportive care. As I discussed with the son, this patient will need extensive supportive care at home or in a nursing facility in the future. Her hallucinations are probably from the metabolic dysfunction discussed. We will try to reduce central nervous system meds such as pain medications and if possible even the antidepressant at this point until she is more medically stable. Thank you for asking us to assist in her care. MD SUE Cui/ /3:22 PM /9:17 PM
[2016-06-20] MEDS: INSULIN DETEMIR 100 UNITS/ML VIAL SQ SCH (23:10)
[2016-06-21] VITALS (7 sets, daily range): BP systolic 120–150; BP diastolic 55–76; PULSE 61–75; RESP 18–20; TEMP 97.1–98.8; O2SAT 94–98
[2016-06-21] MEDS: PIPERACIL-TAZO 3.375 GM PREMIX 50 ML IV SCH ×4 (04:30→21:00)
[2016-06-21] MEDS: LEVOTHYROXINE SODIUM 150 MCG TAB PO SCH (05:03)
[2016-06-21] MEDS: LEVOTHYROXINE SODIUM 25 MCG TAB PO SCH (05:03)
[2016-06-21] MEDS: INSULIN ASPART SUPPLEMENTAL SCALE SQ SCH ×4 (05:41→20:59)
[2016-06-21] MEDS: LACTOBACILLUS ACIDOPHILUS TAB PO SCH ×3 (08:52→17:08)
[2016-06-21] MEDS: buPROPion HCL 150 MG SUSTAINED RELEASE TAB PO SCH ×2 (08:52→21:00)
[2016-06-21] MEDS: DULoxetine HCl DR 30 MG CAP PO SCH ×2 (08:52→21:00)
[2016-06-21] MEDS: ISOSORBIDE DINITRATE 5 MG TAB PO SCH ×3 (08:53→17:08)
[2016-06-21] MEDS: LIOTHYRONINE SODIUM 5 MCG TAB PO SCH (08:53)
[2016-06-21] MEDS: GABAPENTIN 300 MG CAP PO SCH ×2 (08:53→21:00)
[2016-06-21] MEDS: LOSARTAN 50 MG TAB PO SCH (08:53)
[2016-06-21] MEDS: ACETAMINOPHEN/HYDROcodone 325 MG/5 MG TAB PO PRN ×2 (08:53→17:51)
[2016-06-21] MEDS: FUROSEMIDE 20 MG/2 ML VIAL IV PUSH SCH (08:54)
[2016-06-21] MEDS: CARVEDILOL 12.5 MG TAB PO SCH ×2 (08:54→21:00)
--- NOTE | 2016-06-21 09:32 | HHI.PR ---
Subjective Remarks looks much better today- more alert. pain is fairly controlled. son at the bedside. d/w the RN. Objective Vitals Vital Signs Date Time Temp Pulse Resp B/P Pulse Ox O2 Delivery O2 Flow Rate FiO2 06/21/16 08:05 97.7 61 19 134/60 97 06/21/16 04:00 97.1 70 20 150/67 94 06/21/16 04:00 Room Air 06/21/16 00:00 98.2 69 20 142/75 96 06/21/16 00:00 Room Air 06/20/16 20:00 Room Air 06/20/16 20:00 97.3 73 18 126/78 93 06/20/16 16:03 97.9 77 20 167/74 98 06/20/16 12:06 97.7 67 20 140/66 98 06/20/16 12:05 97.7 67 20 140/66 98 06/20/16 11:04 Room Air I/O 06/20/16 06/20/16 06/20/16 06/21/16 06/21/16 06/21/16 07:00 15:00 23:00 07:00 15:00 23:00 Intake Total 240 ml 480 ml 170 ml 170 ml Output Total 400 ml 800 ml 400 ml Balance 240 ml 80 ml -630 ml -230 ml Intake Oral 240 ml 480 ml 120 ml 120 ml IV Total 50 ml 50 ml Output Urine Total 400 ml 800 ml 400 ml Bladder Scan Volume Amount 763 ml # Voids 0 # Bowel Movements 0 0 0 1 Result Diagram: 06/20/16 0709 06/19/16 0535 Imaging Last Impressions Head CT 06/20/16 0000 Signed Impressions: Service Date/Time: Monday, June 20, 2016 17:52 - CONCLUSION: Slight atrophic and small vessel ischemic changes without any evidence for acute hemorrhage or mass effect. Smith Boateng MD Chest X-Ray 06/16/16 1430 Signed Impressions: Service Date/Time: Thursday, June 16, 2016 14:53 - CONCLUSION: 1. No acute cardiopulmonary findings. Jose Rogers MD Objective Remarks GENERAL: This is a well-nourished, well-developed patient, in no apparent distress. CARDIOVASCULAR: Regular rate and regular rhythm without murmurs, gallops, or rubs. RESPIRATORY: Clear to auscultation. Breath sounds equal bilaterally. No wheezes , rales, or rhonchi. GASTROINTESTINAL: Abdomen soft, non-tender, nondistended. Normal, active bowel sounds MUSCULOSKELETAL: both legs covered with clean dressing. NEURO: Alert & Oriented x4 to person, place, time, situation. Moves all ext x4 Procedures none Medications and IVs Current Medications Piperacillin Sod/ Tazobactam Sod 100 ml @ 200 mls/hr ONCE STAT IV Last administered on 06/16/16 14:55; Start 06/16/16 at 14:30; Stop 06/16/16 at 14:59 ; Status DC Vancomycin HCl/ Sodium Chloride (Vancomycin Inj/ NS 250 ml Inj) 250 ml @ 250 mls/hr ONCE STAT IV ; Start 06/16/16 at 14:30; Stop 06/16/16 at 15:29; Status Cancel Lorazepam 1 mg 1 mg ONCE ONCE IV PUSH ; Start 06/16/16 at 15:00; Stop 06/16/16 at 15:02; Status DC Sodium Chloride (NS 1000 ml Inj) 1,000 ml @ 999 mls/hr BOLUS ONCE IV Last administered on 06/16/16 15:30; Start 06/16/16 at 15:00; Stop 06/16/16 at 16:00 ; Status DC Hydromorphone HCl (Dilaudid Pf Inj) 1 mg ONCE ONCE IV PUSH Last administered on 06/16/16 15:31; Start 06/16/16 at 15:15; Stop 06/16/16 at 15:16; Status DC Ondansetron HCl (Zofran Inj) 4 mg ONCE ONCE IV PUSH Last administered on 15:31; Start 06/16/16 at 15:15; Stop 06/16/16 at 15:16; Status DC Dextrose (D50w (Vial) Inj) 25 ml UNSCH PRN IV PUSH HYPOGLYCEMIA-SEE COMMENTS; Start 06/16/16 at 16:00 Glucagon (Glucagon Inj) 1 mg UNSCH PRN OTHER HYPOGLYCEMIA-SEE COMMENTS; Start 06/16/16 at 16:00 Insulin Aspart 1 1 ACHS SLIDING SCALE SQ Last administered on 06/21/16 05:41 ; Start 06/16/16 at 16:00 Pharmacy Profile Note 0 ml @ 0 mls/hr UNSCH OTHER ; Start 06/16/16 at 16:00; Stop 06/18/16 at 19:34; Status DC Pharmacy Profile Note ([facility]) 0 ml @ 0 mls/hr UNSCH OTHER ; Start 06/16/16 at 16:00 Bupropion HCl (Wellbutrin Sr) 150 mg Q12HR PO Last administered on 06/21/16 08 :52; Start 06/16/16 at 21:00 Carvedilol (Coreg) 25 mg BID PO Last administered on 06/21/16 08:54; Start at 21:00 Duloxetine HCl (Cymbalta Dr) 30 mg BID PO Last administered on 06/21/16 08:52 ; Start 06/16/16 at 21:00 Fentanyl (Duragesic 50 Mcg Patch.72 Hr) 1 patch Q3D TD Last administered on 17:40; Start 06/16/16 at 17:00 Gabapentin (Neurontin) 300 mg BID PO Last administered on 06/21/16 08:53; Start 06/16/16 at 21:00 Insulin Detemir (Levemir Inj) 20 units Q12HR SQ ; Start 06/16/16 at 21:00; Stop 06/16/16 at 21:00; Status DC Isosorbide Dinitrate (Isordil) 5 mg TIDAC PO Last administered on 06/21/16 08: 53; Start 06/16/16 at 17:00 Liothyronine Sodium (Cytomel) 5 mcg DAILY PO Last administered on 06/21/16 08: 53; Start 06/17/16 at 09:00 Lactobacillus Acidophilus (Lactinex) 1 tab TID PO Last administered on 08:52; Start 06/16/16 at 18:00 Levothyroxine Sodium (Synthroid) 150 mcg DAILY@06 PO Last administered on 05:03; Start 06/17/16 at 06:00 Miscellaneous Information 1 Q3D T-DERMAL ; Start 06/19/16 at 17:00 Ondansetron HCl (Zofran Inj) 4 mg Q8HR PRN IV PUSH NAUSEA; Start 06/16/16 at 16 :00 Acetaminophen (Tylenol) 650 mg Q4H PRN PO FEVER; Start 06/16/16 at 16:00 Acetaminophen/ Hydrocodone Bitart ([place] 5-325 Mg) 1 tab Q4H PRN PO PAIN > 5 Last administered on 06/21/16 08:53; Start 06/16/16 at 16:00 Furosemide (Lasix Inj) 20 mg DAILY IV PUSH Last administered on 06/21/16 08:54 ; Start 06/17/16 at 09:00 Levothyroxine Sodium 25 mcg 25 mcg DAILY@06 PO Last administered on 06/21/16 05:03; Start 06/17/16 at 06:00 Vancomycin HCl/ Sodium Chloride (Vancomycin Inj/ NS 500 ml Inj) 514 ml @ 250 mls/hr Q24H IV Last administered on 06/18/16 16:40; Start 06/16/16 at 17:00; Stop 06/18/16 at 19:35; Status DC Miscellaneous Information SPECIFIC LAB TO BE [facility]... ONCE ONCE XX ; Start at 16:45; Stop 06/19/16 at 16:46; Status Cancel Piperacillin Sod/ Tazobactam Sod (Zosyn 3.375 Gm Premix) 50 ml @ 100 mls/hr Q6H IV Last administered on 06/21/16 08:54; Start 06/16/16 at 21:00 Insulin Detemir (Levemir Inj) 20 units HS SQ Last administered on 06/20/16 23: 10; Start 06/16/16 at 21:00 Losartan Potassium (Cozaar) 100 mg DAILY PO Last administered on 06/21/16 08: 53; Start 06/17/16 at 09:00 Hydromorphone HCl (Dilaudid Pf Inj) 0.5 mg ONCE ONCE SQ ; Start 06/18/16 at 14: 00; Stop 06/18/16 at 14:01; Status Cancel Hydromorphone HCl (Dilaudid Pf Inj) 0.5 mg NOW ONCE IV Last administered on 14:45; Start 06/18/16 at 14:45; Stop 06/18/16 at 14:46; Status DC A/P Assessment and Plan - cellulitis of both legs with bilateral lower extremity wounds with history of PVD continue with IV Zosyn per ID- continue pain control- vascular surgery following; plan for angiogram and wound debridement next week. wound care following. -confusional episode with reported hallucinations- neurology and psych consulted. will decrease the dose of Fentanyl patch and observe the response. -hyponatremia; seems to be chronic- asymptomatic- improved. -questionable episodes of confusion??-no further episodes- -anemia of chronic disease- H/H fairly stable.will monitor -diabetes mellitus; resumed long acting insulin- accu-check with SSI -cardiomyopathy; resumed BB, nitrate and diuretic -chronic renal insufficiency; will monitor the renal function for now -hypothyroidism; resumed home meds -DVT prophylaxis;Conrad Manuel MD Jun 21, 2016 09:32
--- NOTE | 2016-06-21 13:40 | PD.CONS ---
Provisional Diagnosis Admission Date Jun 16, 2016 at 15:39 [place]. Delirium due to underlying medical condition History of Present Illness Service Psychiatry Consult Requested By Primary Care Physician Non-Staff HPI The patient 62 years old woman, with psychiatric history of depression , no previous hospitalizations, no previous suicidal attempts, she is in Wellbutrin 150 mg twice a day and Cymbalta 30 mg prescribed by PCP, significant medical history of DM, lower extremity cellulitis, CHF, UTI, electrolyte imbalance, consulted to psychiatry due to new onset visual hallucinations and confusion. On psychiatric evaluation today the patient is calm and cooperative , she denies depressive symptoms, she denies anxiety, she denies magui, she denies perceptual disturbances at this moment. She denies visual and auditory hallucinations. Patient states, and family around confirmed, that in the last 2 -3 days she has been experiencing episodes of confusion, disorientation and visual hallucination of people and her home furniture is around her. Past Family Social History Coded Allergies: Contrast Media (Verified Allergy, Severe, Flash pulmonary edema , 06/16/16) PEANUTS (Verified Allergy, Severe, rash, 06/16/16) Active Scripts Oxycodone-Acetaminophen 10-325 mg Tab1 Tab PO Q4HR PRN (pain) #15 TAB Ref 0 Prov:Conrad Clancy MD 06/02/16 Fentanyl Patch 72 HR (Duragesic Patch 72 HR)50 Mcg/Hr Patch1 Patch TD Q3D #2 PATCH Prov:Estefanía Salguero MD 05/30/16 Oxycodone-Acetaminophen 5-325 mg Tab1 Tab PO Q4H PRN (PAIN 3-5) #10 TAB Prov:Estefanía Salguero MD 05/30/16 Gabapentin (Neurontin)300 Mg Cxt165 Mg PO BID #60 CAP Prov:Estefanía Salguero MD 05/30/16 Lactobacillus Acidophilus (Lactinex)1 Chew1 Tab CHEW TID #90 TAB Ref 0 Prov:Edouard Mckinley MD 04/23/16 Reported Medications Magnesium Citrate Liq (Citroma Liq)300 Ml Obe762 Ml PO DAILY PRN (IF NO RESULT FROM FLEETS) #1 BOTTLE Ref 0 06/16/16 Sodium Phosphates Rectal (Fleet Enema Rectal)7-19 Gm/118 Ml Bowx238 Ml RECTAL DAILY PRN (IF NO RESULT 1 DAY AFTER SUPP) Ref 0 06/16/16 Bisacodyl Supp (Dulcolax Supp)10 Mg Supp10 Mg RECTAL DAILY PRN (IF NO BM 1 DAY AFTER MOM) #12 SUPP Ref 0 06/16/16 Glucagon (Rdna) Inj Kit (Glucagen Hypokit Inj Kit)1 Mg Kit1 Mg IM ONCE PRN (DM, IF BS <50) #1 KIT Ref 0 06/16/16 Magnesium Hydroxide Liq (Milk of Magnmandeep Liq)400 Mg/5 Ml Susp30 Ml PO Q24HR PRN (IF NO BM WITHIN 3 DAYS) #1 BOTTLE Ref 0 06/16/16 Sodium Hypochlorite Topical (Dakins Solution Quarter Strength Topical)0.125% Soln1 Applic TOPICAL DAILY Ref 0 06/16/16 Insulin Lispro (Human) Inj (Humalog Inj)1,000 Unit/10 Ml Vial2-10 Units SQ Q6HR PRN (ELEVATED BS) #1 VIAL Ref 0 Sugars 151-200,(2)units; sugars 201-250,(4)units; sugars 251-300,(6)units; sugars 301-350,(8)units; sugars 351-400,(10)units. Greater than 400 call MD 06/16/16 Clonazepam 0.5 Mg Tab0.5 Mg PO Q8HR PRN (ANXIETY) #90 TAB Ref 0 06/16/16 Isosorbide Dinitrate 5 Mg Tab5 Mg PO Q8HR 06/16/16 Insulin Lispro (Human) Inj (Humalog Inj)1,000 Unit/10 Ml Vial5-25 Units SQ HS # 1 VIAL Ref 0 Inject per sliding scale: sugars 0-70,(0)units; sugars 150-199,(5)units; sugars 200-249,(10)units; sugars 250-299,(15)units; sugars 300-349,(20)units; sugars more than 349,(25)units. 06/16/16 Doxycycline Hyclate (Vibramycin)100 Mg Oqv919 Mg PO BID Ref 0 06/16/16 Sodium Chloride 1 Gm Tab1 Gm PO DAILY Ref 0 06/16/16 Multiple Vitamins W/ Minerals (Thera-M)1 Tab1 Tab PO DAILY Ref 0 06/16/16 Losartan 100 Mg Tqe233 Mg PO DAILY #30 TAB Ref 0 06/16/16 Insulin Detemir Inj (Levemir Inj)1,000 unit/ 10 ML Vial20 Units SQ HS Ref 0 Do not mix with any other Insulin. 06/16/16 Levothyroxine 175 Mcg Gll541 Mcg PO DAILY 04/18/16 Liothyronine 5 Mcg Tab5 Mcg PO DAILY #30 TAB Ref 0 04/18/16 Furosemide (Lasix)20 Mg Tab20 Mg PO DAILY #30 TAB Ref 0 04/18/[address] (Brittney LUGO)30 Mg Capdr30 Mg PO Q12HR #30 CAP Ref 0 04/18/16 Bupropion HCl ER 12 HR (Wellbutrin SR 12 HR)150 Mg Fup805 Mg PO Q12HR Ref 0 04/18/16 Carvedilol 25 Mg Tab25 Mg PO BID #60 TAB Ref 0 04/18/16 Discontinued Reported Medications Insulin Lispro (Human) Inj (Humalog Inj)1,000 Unit/10 Ml Vial5-25 Units SQ DIRECTED #1 VIAL Ref 0 Max dose at bedtime:( )units; sugars < 70,(0)units; sugars 150-199,(5)units; sugars 200-249,(10)units; sugars 250-299,(15)units; sugars 300-349,(20)units; sugars more than 349,(25)units. 04/18/16 Discontinued Scripts Isosorbide Dinitrate (Isordil Titradose)5 Mg Tab5 Mg PO TIDAC #30 TAB Prov:Estefanía Salguero MD 05/30/16 Insulin Detemir Inj (Levemir Inj)1,000 unit/ 10 ML Vial20 Units SQ Q12HR #1 INJECTION Prov:Estefanía Salguero MD 05/30/16 Current Medications Medications (Trade) Dose Ordered Sig/Virgilio Route Start Time Stop Time Status Last Admin (D50w (Vial) Inj) 25 ml UNSCH PRN IV PUSH 06/16/16 16:00 Glucagon 1 mg 1 mg UNSCH PRN OTHER 06/16/16 16:00 ([facility] Pharm[facility]) 0 ml @ 0 mls/hr UNSCH OTHER 06/16/16 16:00 (Wellbutrin Sr) 150 mg Q12HR PO 06/16/16 21:00 06/21/16 08:52 (Coreg) 25 mg BID PO 06/16/16 21:00 06/21/16 08:54 (Cymbalta Dr) 30 mg BID PO 06/16/16 21:00 06/21/16 08:52 (Duragesic 50 Mcg Patch.72 Hr) 1 patch Q3D TD 06/16/16 17:00 06/22/16 16:00 06/19/16 17:40 (Neurontin) 300 mg BID PO 06/16/16 21:00 06/21/16 08:53 (Isordil) 5 mg TIDAC PO 06/16/16 17:00 06/21/16 11:13 (Cytomel) 5 mcg DAILY PO 06/17/16 09:00 06/21/16 08:53 (Lactinex) 1 tab TID PO 06/16/16 18:00 06/21/16 12:27 (Synthroid) 150 mcg DAILY@06 PO 06/17/16 06:00 06/21/16 05:03 Miscellaneous Information 1 Q3D T-DERMAL 06/19/16 17:00 (Zofran Inj) 4 mg Q8HR PRN IV PUSH 06/16/16 16:00 (Tylenol) 650 mg Q4H PRN PO 06/16/16 16:00 ([place] 5-325 Mg) 1 tab Q4H PRN PO 06/16/16 16:00 06/21/16 08:53 (Lasix Inj) 20 mg DAILY IV PUSH 06/17/16 09:00 06/21/16 08:54 Levothyroxine Sodium 25 mcg 25 mcg DAILY@06 PO 06/17/16 06:00 06/21/16 05:03 (Zosyn 3.375 Gm Premix) 50 ml @ 100 mls/hr Q6H IV 06/16/16 21:00 06/21/16 08:54 (Levemir Inj) 20 units HS SQ 06/16/16 21:00 06/20/16 23:10 (Cozaar) 100 mg DAILY PO 06/17/16 09:00 06/21/16 08:53 (Duragesic 25 Mcg Patch.72 Hr) 1 patch Q3D TD 06/22/16 17:00 Miscellaneous Information 1 Q3D T-DERMAL 06/24/16 09:45 06/24/16 23:59 (Haldol) 2 mg HS PO 06/21/16 21:00 UNV Family History She denies Social History Patient was born and raised in [place], she lives with her in [place], she has 2 kids, 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 Physical Exam Vital Signs Vital Signs Date Time Temp Pulse Resp B/P Pulse Ox O2 Delivery O2 Flow Rate FiO2 06/21/16 12:06 98.1 64 19 122/76 94 06/21/16 08:00 Room Air I/O 06/20/16 06/20/16 06/21/16 08:00 16:00 00:00 Intake Total 240 ml 480 ml 170 ml Output Total 400 ml 800 ml Balance 240 ml 80 ml -630 ml Mental Status Examination Appearance Overweight woman, age appearing, calm and cooperative Speech: Unremarkable Orientation: x3 Memory: Unremarkable Thought Process: Logical Hallucination Type: None Suicidal Ideation: No Previous Suicide Attempts: No Homicidal Ideation: No Previous Homicide Attempts: No Insight: Good Affect: Good Affect if Inappropriate: Flat Mood: Euthymic Motor Activity: Normal gait Assessment & Plan Problem List: (1) Delirium due to another medical condition Assessment & Plan: The patient 62 years old woman, with psychiatric history of depression, no previous hospitalizations, no previous suicidal attempts, she is in Wellbutrin 150 mg twice a day and Cymbalta 30 mg prescribed by PCP, significant medical history of DM, lower extremity cellulitis, CHF, UTI , electrolyte imbalance, consulted to psychiatry due to new onset visual hallucinations and confusion. On psychiatric evaluation today the patient is calm and cooperative, she denies depressive symptoms, she denies anxiety, she denies magui, she denies perceptual disturbances at this moment. She denies visual and auditory hallucinations. Patient states, and family around confirmed , that in the last 2-3 days she has been experiencing episodes of confusion, disorientation and visual hallucination of people and her home furniture is around her. Those episodes have being anxiety provoking and very distressing for her. Given the nature, progression and presentation of current symptomatology is highly possible that these hallucinations are secondary to delirium related with underlying infection disease, electrolyte imbalance, polypharmacy and sleep deprivation. We will order Haldol 2 mg at bedtime to help the patient with sleep and with psychosis, extensive psychoeducation, supportive motivation provided. We'll continue follow-up. ICD Code: F05 Assessment & Plan Estimated LOS: days Robert,Rc B. MD Jun 21, 2016 13:40
[2016-06-21] MEDS: INSULIN DETEMIR 100 UNITS/ML VIAL SQ SCH (20:59)
[2016-06-21] MEDS: HALOPERIDOL 2 MG TAB PO SCH (21:00)
[2016-06-22] MEDS: PIPERACIL-TAZO 3.375 GM PREMIX 50 ML IV SCH ×4 (02:27→20:14)
[2016-06-22 04:00] VITALS: BP 130/59; PULSE 66; RESP 20; TEMP 97.4; O2SAT 96
[2016-06-22] MEDS: ACETAMINOPHEN/HYDROcodone 325 MG/5 MG TAB PO PRN ×4 (04:04→20:11)
[2016-06-22] MEDS: LEVOTHYROXINE SODIUM 150 MCG TAB PO SCH (06:37)
[2016-06-22] MEDS: LEVOTHYROXINE SODIUM 25 MCG TAB PO SCH (06:38)
[2016-06-22] MEDS: INSULIN ASPART SUPPLEMENTAL SCALE SQ SCH ×4 (06:39→20:15)
[2016-06-22] MEDS: LIOTHYRONINE SODIUM 5 MCG TAB PO SCH (08:12)
[2016-06-22] MEDS: DULoxetine HCl DR 30 MG CAP PO SCH ×2 (08:12→20:11)
[2016-06-22] MEDS: LACTOBACILLUS ACIDOPHILUS TAB PO SCH ×3 (08:12→15:26)
[2016-06-22] MEDS: buPROPion HCL 150 MG SUSTAINED RELEASE TAB PO SCH ×2 (08:12→20:11)
[2016-06-22] MEDS: GABAPENTIN 300 MG CAP PO SCH ×2 (08:12→20:11)
[2016-06-22] MEDS: CARVEDILOL 12.5 MG TAB PO SCH ×2 (08:12→20:11)
[2016-06-22] MEDS: FUROSEMIDE 20 MG/2 ML VIAL IV PUSH SCH (08:13)
[2016-06-22] MEDS: LOSARTAN 50 MG TAB PO SCH (08:13)
[2016-06-22] MEDS: ISOSORBIDE DINITRATE 5 MG TAB PO SCH ×3 (08:13→15:34)
[2016-06-22 08:35] VITALS: BP 160/67; PULSE 75; RESP 20; TEMP 97.8; O2SAT 97
--- NOTE | 2016-06-22 09:39 | HHI.PR ---
Subjective Remarks in no acute distress. has some pain to the legs. no fever. says that had a good sleep last night. son at the bedside. Objective Vitals Vital Signs Date Time Temp Pulse Resp B/P Pulse Ox O2 Delivery O2 Flow Rate FiO2 06/22/16 08:35 97.8 75 20 160/67 97 06/22/16 08:00 Room Air 06/22/16 04:00 97.4 66 20 130/59 96 06/21/16 23:54 97.7 63 19 120/55 97 06/21/16 20:00 Room Air 06/21/16 20:00 98.8 75 20 132/67 95 06/21/16 16:15 97.6 66 18 135/60 98 06/21/16 12:06 98.1 64 19 122/76 94 I/O 06/21/16 06/21/16 06/21/16 06/22/16 06/22/16 06/22/16 07:00 15:00 23:00 07:00 15:00 23:00 Intake Total 170 ml 480 ml 360 ml 240 ml Output Total 400 ml Balance -230 ml 480 ml 360 ml 240 ml Intake Oral 120 ml 480 ml 360 ml 240 ml IV Total 50 ml Output Urine Total 400 ml # Voids 1 1 # Bowel Movements 1 0 Result Diagram: 06/20/16 0709 06/19/16 0535 Imaging Last Impressions Head CT 06/20/16 0000 Signed Impressions: Service Date/Time: Monday, June 20, 2016 17:52 - CONCLUSION: Slight atrophic and small vessel ischemic changes without any evidence for acute hemorrhage or mass effect. Smith Boateng MD Chest X-Ray 06/16/16 1430 Signed Impressions: Service Date/Time: Thursday, June 16, 2016 14:53 - CONCLUSION: 1. No acute cardiopulmonary findings. Jose Rogers MD Objective Remarks GENERAL: This is a well-nourished, well-developed patient, in no apparent distress. CARDIOVASCULAR: Regular rate and regular rhythm without murmurs, gallops, or rubs. RESPIRATORY: Clear to auscultation. Breath sounds equal bilaterally. No wheezes , rales, or rhonchi. GASTROINTESTINAL: Abdomen soft, non-tender, nondistended. Normal, active bowel sounds MUSCULOSKELETAL: both legs covered with clean dressing. NEURO: Alert & Oriented x4 to person, place, time, situation. Moves all ext x4 Procedures none Medications and IVs Current Medications Piperacillin Sod/ Tazobactam Sod 100 ml @ 200 mls/hr ONCE STAT IV Last administered on 06/16/16 14:55; Start 06/16/16 at 14:30; Stop 06/16/16 at 14:59 ; Status DC Vancomycin HCl/ Sodium Chloride (Vancomycin Inj/ NS 250 ml Inj) 250 ml @ 250 mls/hr ONCE STAT IV ; Start 06/16/16 at 14:30; Stop 06/16/16 at 15:29; Status Cancel Lorazepam 1 mg 1 mg ONCE ONCE IV PUSH ; Start 06/16/16 at 15:00; Stop 06/16/16 at 15:02; Status DC Sodium Chloride (NS 1000 ml Inj) 1,000 ml @ 999 mls/hr BOLUS ONCE IV Last administered on 06/16/16 15:30; Start 06/16/16 at 15:00; Stop 06/16/16 at 16:00 ; Status DC Hydromorphone HCl (Dilaudid Pf Inj) 1 mg ONCE ONCE IV PUSH Last administered on 06/16/16 15:31; Start 06/16/16 at 15:15; Stop 06/16/16 at 15:16; Status DC Ondansetron HCl (Zofran Inj) 4 mg ONCE ONCE IV PUSH Last administered on 15:31; Start 06/16/16 at 15:15; Stop 06/16/16 at 15:16; Status DC Dextrose (D50w (Vial) Inj) 25 ml UNSCH PRN IV PUSH HYPOGLYCEMIA-SEE COMMENTS; Start 06/16/16 at 16:00 Glucagon (Glucagon Inj) 1 mg UNSCH PRN OTHER HYPOGLYCEMIA-SEE COMMENTS; Start 06/16/16 at 16:00 Insulin Aspart 1 1 ACHS SLIDING SCALE SQ Last administered on 06/21/16 20:59 ; Start 06/16/16 at 16:00 Pharmacy Profile Note 0 ml @ 0 mls/hr UNSCH OTHER ; Start 06/16/16 at 16:00; Stop 06/18/16 at 19:34; Status DC Pharmacy Profile Note ([facility]) 0 ml @ 0 mls/hr UNSCH OTHER ; Start 06/16/16 at 16:00 Bupropion HCl (Wellbutrin Sr) 150 mg Q12HR PO Last administered on 06/22/16 08 :12; Start 06/16/16 at 21:00 Carvedilol (Coreg) 25 mg BID PO Last administered on 06/22/16 08:12; Start at 21:00 Duloxetine HCl (Cymbalta Dr) 30 mg BID PO Last administered on 06/22/16 08:12 ; Start 06/16/16 at 21:00 Fentanyl (Duragesic 50 Mcg Patch.72 Hr) 1 patch Q3D TD Last administered on 17:40; Start 06/16/16 at 17:00; Stop 06/22/16 at 16:00 Gabapentin (Neurontin) 300 mg BID PO Last administered on 06/22/16 08:12; Start 06/16/16 at 21:00 Insulin Detemir (Levemir Inj) 20 units Q12HR SQ ; Start 06/16/16 at 21:00; Stop 06/16/16 at 21:00; Status DC Isosorbide Dinitrate (Isordil) 5 mg TIDAC PO Last administered on 06/22/16 08: 13; Start 06/16/16 at 17:00 Liothyronine Sodium (Cytomel) 5 mcg DAILY PO Last administered on 06/22/16 08: 12; Start 06/17/16 at 09:00 Lactobacillus Acidophilus (Lactinex) 1 tab TID PO Last administered on 17:08; Start 06/16/16 at 18:00 Levothyroxine Sodium (Synthroid) 150 mcg DAILY@06 PO Last administered on 06:37; Start 06/17/16 at 06:00 Miscellaneous Information 1 Q3D T-DERMAL ; Start 06/19/16 at 17:00 Ondansetron HCl (Zofran Inj) 4 mg Q8HR PRN IV PUSH NAUSEA; Start 06/16/16 at 16 :00 Acetaminophen (Tylenol) 650 mg Q4H PRN PO FEVER; Start 06/16/16 at 16:00 Acetaminophen/ Hydrocodone Bitart ([place] 5-325 Mg) 1 tab Q4H PRN PO PAIN > 5 Last administered on 06/22/16 08:13; Start 06/16/16 at 16:00 Furosemide (Lasix Inj) 20 mg DAILY IV PUSH Last administered on 06/22/16 08:13 ; Start 06/17/16 at 09:00 Levothyroxine Sodium 25 mcg 25 mcg DAILY@06 PO Last administered on 06/22/16 06:38; Start 06/17/16 at 06:00 Vancomycin HCl/ Sodium Chloride (Vancomycin Inj/ NS 500 ml Inj) 514 ml @ 250 mls/hr Q24H IV Last administered on 06/18/16 16:40; Start 06/16/16 at 17:00; Stop 06/18/16 at 19:35; Status DC Miscellaneous Information SPECIFIC LAB TO BE [facility]... ONCE ONCE XX ; Start at 16:45; Stop 06/19/16 at 16:46; Status Cancel Piperacillin Sod/ Tazobactam Sod (Zosyn 3.375 Gm Premix) 50 ml @ 100 mls/hr Q6H IV Last administered on 06/22/16 08:12; Start 06/16/16 at 21:00 Insulin Detemir (Levemir Inj) 20 units HS SQ Last administered on 06/21/16 20: 59; Start 06/16/16 at 21:00 Losartan Potassium (Cozaar) 100 mg DAILY PO Last administered on 06/22/16 08: 13; Start 06/17/16 at 09:00 Hydromorphone HCl (Dilaudid Pf Inj) 0.5 mg ONCE ONCE SQ ; Start 06/18/16 at 14: 00; Stop 06/18/16 at 14:01; Status Cancel Hydromorphone HCl (Dilaudid Pf Inj) 0.5 mg NOW ONCE IV Last administered on 14:45; Start 06/18/16 at 14:45; Stop 06/18/16 at 14:46; Status DC Fentanyl (Duragesic 25 Mcg Patch.72 Hr) 1 patch Q3D TD ; Start 06/22/16 at 17: 00 Miscellaneous Information 1 Q3D T-DERMAL ; Start 06/24/16 at 09:45; Stop at 23:59 Haloperidol (Haldol) 2 mg HS PO Last administered on 06/21/16 21:00; Start at 21:00 A/P Assessment and Plan - cellulitis of both legs with bilateral lower extremity wounds with history of PVD continue with IV Zosyn per ID- continue pain control- vascular surgery following; plan for angiogram and wound debridement this week. wound care following. -confusional episode with reported hallucinations- neurology and psych consulted. will decrease the dose of Fentanyl patch and observe the response. -hyponatremia; seems to be chronic- asymptomatic- improved. -questionable episodes of confusion??-no further episodes- -anemia of chronic disease- H/H fairly stable.will monitor -diabetes mellitus; resumed long acting insulin- accu-check with SSI -cardiomyopathy; resumed BB, nitrate and diuretic -chronic renal insufficiency; will monitor the renal function for now -hypothyroidism; resumed home meds -DVT prophylaxis;Conrad Manuel MD Jun 22, 2016 09:39
[2016-06-22 12:16] VITALS: BP 100/57; PULSE 66; RESP 19; TEMP 98.4; O2SAT 94
--- NOTE | 2016-06-22 13:45 | PD.VS.PN ---
Pre-operative Note Pre-operative diagnosis: B LE wounds, PAD Planned procedure: B LE angiogram, [employer]/stent/atherectomy B LE leg debridement Labs: Hct 26 plt 518 cr 1.1 INR pending Blood: T&C 2U Orders: NPO after MN Post-operative destination: PACU Operative site marked: No (bilateral procedure) Consent: I had a long discussion with Mrs. Lemos and her last week and then again today with Mrs. Arcos and her children. They all understand the nature of the procedure (B LE angiogram and potential intervention as well as B LE leg debridement) and agree to proceed. They all understand that the goal is wound healing to avoid amputation Shamar Taylor MD Jun 22, 2016 13:45
[2016-06-22] MEDS: fentaNYL 25 MCG/HR PATCH TD SCH (15:34)
[2016-06-22] MEDS: REMOVE OLD PATCH T-DERMAL SCH (15:34)
[2016-06-22 16:18] VITALS: BP 117/66; PULSE 69; RESP 19; TEMP 98.2; O2SAT 98
[2016-06-22 20:00] VITALS: BP 129/84; PULSE 76; RESP 18; TEMP 97.7; O2SAT 94
[2016-06-22] MEDS: INSULIN DETEMIR 100 UNITS/ML VIAL SQ SCH (20:11)
[2016-06-22] MEDS: HALOPERIDOL 2 MG TAB PO SCH (20:11)
[2016-06-23] VITALS (7 sets, daily range): BP systolic 78–177; BP diastolic 60–99; PULSE 64–81; RESP 16–22; TEMP 98–98.4; O2SAT 90–100
[2016-06-23] MEDS: NS + KCL 20 MEQ INJ 1,000 ML IV SCH ×3 (00:13→23:50)
[2016-06-23] MEDS ORDERED: predniSONE 50 MG TAB PO ONE ×3 (01:00→13:00)
[2016-06-23] MEDS: PIPERACIL-TAZO 3.375 GM PREMIX 50 ML IV SCH ×4 (02:22→20:37)
[2016-06-23] MEDS: LEVOTHYROXINE SODIUM 25 MCG TAB PO SCH (05:52)
[2016-06-23] MEDS: INSULIN ASPART SUPPLEMENTAL SCALE SQ SCH ×2 (05:52→10:02)
[2016-06-23] MEDS: LEVOTHYROXINE SODIUM 150 MCG TAB PO SCH (05:52)
[2016-06-23 06:33] LABS: PROTHROMBIN TIME - PATIENT 11.2 SEC (9.8-11.6)
[2016-06-23 06:38] LABS: AUTOMATED NEUTROPHIL # 12.2 TH/MM3 (1.8-7.7); BASOPHIL % 0.4 % (0.0-2.0); EOSINOPHIL % 0.4 % (0.0-4.0); HEMATOCRIT 27.3 % (35.0-46.0); LYMPHOCYTE # 0.7 TH/MM3 (1.0-4.8); MEAN CELL VOLUME 76.9 FL (80.0-100.0); MEAN CORPUSCULAR HEMOGLOBIN 24.7 PG (27.0-34.0); MEAN CORPUSCULAR HGB CONC 32.1 % (32.0-36.0); NEUT % 91.2 % (16.0-70.0); PLATELET COUNT 480 TH/MM3 (150-450); RED BLOOD COUNT 3.55 MIL/MM3 (4.00-5.30); RED CELL DISTRIBUTION WIDTH 16.1 % (11.6-17.2); WHITE BLOOD COUNT 13.3 TH/MM3 (4.0-11.0)
[2016-06-23 06:46] LABS: HEMO FLAGS AUTO DIFF
[2016-06-23 06:55] LABS: BICARBONATE 30.6 MEQ/L (21.0-32.0); POTASSIUM 4.2 MEQ/L (3.5-5.1)
--- NOTE | 2016-06-23 08:02 | HHI.PR ---
Subjective Remarks resting comfortably with no distress. pain is controlled. no new complaints. Objective Vitals Vital Signs Date Time Temp Pulse Resp B/P Pulse Ox O2 Delivery O2 Flow Rate FiO2 06/23/16 04:00 98.4 69 17 177/81 94 06/23/16 00:00 98.4 64 16 120/94 95 06/22/16 20:00 Room Air 06/22/16 20:00 97.7 76 18 129/84 94 06/22/16 16:18 98.2 69 19 117/66 98 06/22/16 12:16 98.4 66 19 100/57 94 06/22/16 08:35 97.8 75 20 160/67 97 I/O 06/22/16 06/22/16 06/22/16 06/23/16 06/23/16 06/23/16 07:00 15:00 23:00 07:00 15:00 23:00 Intake Total 240 ml 580 ml 320 ml 559 ml Output Total 0 ml Balance 240 ml 580 ml 320 ml 559 ml Intake Oral 240 ml 480 ml 320 ml 0 ml IV Total 100 ml 559 ml Output Urine Total 0 ml Bladder Scan Volume Amount 891 ml # Voids 0 2 # Bowel Movements 0 1 Result Diagram: 06/23/16 0539 06/23/16 0539 Imaging Last Impressions Head CT 06/20/16 0000 Signed Impressions: Service Date/Time: Monday, June 20, 2016 17:52 - CONCLUSION: Slight atrophic and small vessel ischemic changes without any evidence for acute hemorrhage or mass effect. Smith Boateng MD Chest X-Ray 06/16/16 1430 Signed Impressions: Service Date/Time: Thursday, June 16, 2016 14:53 - CONCLUSION: 1. No acute cardiopulmonary findings. Jose Rogers MD Objective Remarks GENERAL: This is a well-nourished, well-developed patient, in no apparent distress. CARDIOVASCULAR: Regular rate and regular rhythm without murmurs, gallops, or rubs. RESPIRATORY: Clear to auscultation. Breath sounds equal bilaterally. No wheezes , rales, or rhonchi. GASTROINTESTINAL: Abdomen soft, non-tender, nondistended. Normal, active bowel sounds MUSCULOSKELETAL: both legs covered with clean dressing. NEURO: Alert & Oriented x4 to person, place, time, situation. Moves all ext x4 Procedures none Medications and IVs Current Medications Piperacillin Sod/ Tazobactam Sod 100 ml @ 200 mls/hr ONCE STAT IV Last administered on 06/16/16 14:55; Start 06/16/16 at 14:30; Stop 06/16/16 at 14:59 ; Status DC Vancomycin HCl/ Sodium Chloride (Vancomycin Inj/ NS 250 ml Inj) 250 ml @ 250 mls/hr ONCE STAT IV ; Start 06/16/16 at 14:30; Stop 06/16/16 at 15:29; Status Cancel Lorazepam 1 mg 1 mg ONCE ONCE IV PUSH ; Start 06/16/16 at 15:00; Stop 06/16/16 at 15:02; Status DC Sodium Chloride (NS 1000 ml Inj) 1,000 ml @ 999 mls/hr BOLUS ONCE IV Last administered on 06/16/16 15:30; Start 06/16/16 at 15:00; Stop 06/16/16 at 16:00 ; Status DC Hydromorphone HCl (Dilaudid Pf Inj) 1 mg ONCE ONCE IV PUSH Last administered on 06/16/16 15:31; Start 06/16/16 at 15:15; Stop 06/16/16 at 15:16; Status DC Ondansetron HCl (Zofran Inj) 4 mg ONCE ONCE IV PUSH Last administered on 15:31; Start 06/16/16 at 15:15; Stop 06/16/16 at 15:16; Status DC Dextrose (D50w (Vial) Inj) 25 ml UNSCH PRN IV PUSH HYPOGLYCEMIA-SEE COMMENTS; Start 06/16/16 at 16:00 Glucagon (Glucagon Inj) 1 mg UNSCH PRN OTHER HYPOGLYCEMIA-SEE COMMENTS; Start 06/16/16 at 16:00 Insulin Aspart 1 1 ACHS SLIDING SCALE SQ Last administered on 06/23/16 05:52 ; Start 06/16/16 at 16:00 Pharmacy Profile Note 0 ml @ 0 mls/hr UNSCH OTHER ; Start 06/16/16 at 16:00; Stop 06/18/16 at 19:34; Status DC Pharmacy Profile Note ([facility]) 0 ml @ 0 mls/hr UNSCH OTHER ; Start 06/16/16 at 16:00 Bupropion HCl (Wellbutrin Sr) 150 mg Q12HR PO Last administered on 06/22/16 20 :11; Start 06/16/16 at 21:00 Carvedilol (Coreg) 25 mg BID PO Last administered on 06/22/16 20:11; Start at 21:00 Duloxetine HCl (Cymbalta Dr) 30 mg BID PO Last administered on 06/22/16 20:11 ; Start 06/16/16 at 21:00 Fentanyl (Duragesic 50 Mcg Patch.72 Hr) 1 patch Q3D TD Last administered on 17:40; Start 06/16/16 at 17:00; Stop 06/22/16 at 16:00; Status DC Gabapentin (Neurontin) 300 mg BID PO Last administered on 06/22/16 20:11; Start 06/16/16 at 21:00 Insulin Detemir (Levemir Inj) 20 units Q12HR SQ ; Start 06/16/16 at 21:00; Stop 06/16/16 at 21:00; Status DC Isosorbide Dinitrate (Isordil) 5 mg TIDAC PO Last administered on 06/22/16 15: 34; Start 06/16/16 at 17:00 Liothyronine Sodium (Cytomel) 5 mcg DAILY PO Last administered on 06/22/16 08: 12; Start 06/17/16 at 09:00 Lactobacillus Acidophilus (Lactinex) 1 tab TID PO Last administered on 17:08; Start 06/16/16 at 18:00 Levothyroxine Sodium (Synthroid) 150 mcg DAILY@06 PO Last administered on 05:52; Start 06/17/16 at 06:00 Miscellaneous Information 1 Q3D T-DERMAL Last administered on 06/22/16 15:34; Start 06/19/16 at 17:00 Ondansetron HCl (Zofran Inj) 4 mg Q8HR PRN IV PUSH NAUSEA; Start 06/16/16 at 16 :00 Acetaminophen (Tylenol) 650 mg Q4H PRN PO FEVER; Start 06/16/16 at 16:00 Acetaminophen/ Hydrocodone Bitart ([place] 5-325 Mg) 1 tab Q4H PRN PO PAIN > 5 Last administered on 06/22/16 20:11; Start 06/16/16 at 16:00 Furosemide (Lasix Inj) 20 mg DAILY IV PUSH Last administered on 06/22/16 08:13 ; Start 06/17/16 at 09:00 Levothyroxine Sodium 25 mcg 25 mcg DAILY@06 PO Last administered on 06/23/16 05:52; Start 06/17/16 at 06:00 Vancomycin HCl/ Sodium Chloride (Vancomycin Inj/ NS 500 ml Inj) 514 ml @ 250 mls/hr Q24H IV Last administered on 06/18/16 16:40; Start 06/16/16 at 17:00; Stop 06/18/16 at 19:35; Status DC Miscellaneous Information SPECIFIC LAB TO BE [facility]... ONCE ONCE XX ; Start at 16:45; Stop 06/19/16 at 16:46; Status Cancel Piperacillin Sod/ Tazobactam Sod (Zosyn 3.375 Gm Premix) 50 ml @ 100 mls/hr Q6H IV Last administered on 06/23/16 02:22; Start 06/16/16 at 21:00 Insulin Detemir (Levemir Inj) 20 units HS SQ Last administered on 06/22/16 20: 11; Start 06/16/16 at 21:00 Losartan Potassium (Cozaar) 100 mg DAILY PO Last administered on 06/22/16 08: 13; Start 06/17/16 at 09:00 Hydromorphone HCl (Dilaudid Pf Inj) 0.5 mg ONCE ONCE SQ ; Start 06/18/16 at 14: 00; Stop 06/18/16 at 14:01; Status Cancel Hydromorphone HCl (Dilaudid Pf Inj) 0.5 mg NOW ONCE IV Last administered on 14:45; Start 06/18/16 at 14:45; Stop 06/18/16 at 14:46; Status DC Fentanyl (Duragesic 25 Mcg Patch.72 Hr) 1 patch Q3D TD Last administered on 15:34; Start 06/22/16 at 17:00 Miscellaneous Information 1 Q3D T-DERMAL ; Start 06/24/16 at 09:45; Stop at 23:59 Haloperidol (Haldol) 2 mg HS PO Last administered on 06/22/16 20:11; Start at 21:00 Prednisone (Deltasone) 50 mg ONCE ONCE PO Last administered on 06/23/16 00:14 ; Start 06/23/16 at 01:00; Stop 06/23/16 at 01:01; Status DC Prednisone (Deltasone) 50 mg ONCE ONCE PO Last administered on 06/23/16 05:52 ; Start 06/23/16 at 07:00; Stop 06/23/16 at 07:01; Status DC Prednisone (Deltasone) 50 mg ONCE ONCE PO ; Start 06/23/16 at 13:00; Stop 06/23 at 13:01 Diphenhydramine HCl 50 mg 50 mg ONCE ONCE PO ; Start 06/23/16 at 13:00; Stop at 13:01 Potassium Chloride/Sodium Chloride (NS + KCl 20 Meq Inj) 1,000 ml @ 84 mls/hr [id number] IV Last administered on 06/23/16 00:13; Start 06/23/16 at 00:00 A/P Assessment and Plan - cellulitis of both legs with bilateral lower extremity wounds with history of PVD continue with IV Zosyn per ID- continue pain control- vascular surgery following; plan for angiogram and wound debridement today. wound care following. -confusional episode with reported hallucinations- improved- neurology and psych consulted. decreased the dose of Fentanyl patch and observe the response. -hyponatremia; seems to be chronic- asymptomatic- improved. -anemia of chronic disease- H/H fairly stable.will monitor -diabetes mellitus; resumed long acting insulin- accu-check with SSI -cardiomyopathy; resumed BB, nitrate and diuretic -chronic renal insufficiency; will monitor the renal function for now -hypothyroidism; resumed home meds -DVT prophylaxis;Conrad Manuel MD Jun 23, 2016 08:02
[2016-06-23 08:20] LABS: MYELOCYTES 2 % (0-0); NEUTROPHIL # MANUAL DIFF 12.4 TH/MM3 (1.8-7.7); POLYS (SEG NEUTROPHILS) 91 % (16-70); WBC DIFF SAMPLE 100
[2016-06-23 08:21] LABS: PLATELET ESTIMATE SMEAR NORMAL (NORMAL); PLATELET MORPHOLOGY NORMAL (NORMAL); SCAN/DIFF FINAL DIFF MANUAL
[2016-06-23] MEDS: ISOSORBIDE DINITRATE 5 MG TAB PO SCH ×3 (08:32→17:00)
[2016-06-23] MEDS: LOSARTAN 50 MG TAB PO SCH (08:32)
[2016-06-23] MEDS: LIOTHYRONINE SODIUM 5 MCG TAB PO SCH (08:32)
[2016-06-23] MEDS: buPROPion HCL 150 MG SUSTAINED RELEASE TAB PO SCH ×2 (08:32→20:35)
[2016-06-23] MEDS: DULoxetine HCl DR 30 MG CAP PO SCH ×2 (08:32→20:36)
[2016-06-23] MEDS: CARVEDILOL 12.5 MG TAB PO SCH ×2 (08:32→20:35)
[2016-06-23] MEDS: GABAPENTIN 300 MG CAP PO SCH ×2 (08:32→20:35)
[2016-06-23] MEDS: FUROSEMIDE 20 MG/2 ML VIAL IV PUSH SCH (08:33)
[2016-06-23] MEDS: ACETAMINOPHEN/HYDROcodone 325 MG/5 MG TAB PO PRN (08:33)
[2016-06-23] MEDS: LACTOBACILLUS ACIDOPHILUS TAB PO SCH ×3 (08:48→18:00)
[2016-06-23] MEDS ORDERED: NEOSTIGMINE 3 MG/3 ML SYR IV ONE (12:01)
[2016-06-23] MEDS ORDERED: PROPOFOL 200 MG/20 ML AMP IV ONE (12:01)
[2016-06-23] MEDS ORDERED: ONDANSETRON HCL 4 MG/2 ML VIAL IV PUSH ONE (12:01)
[2016-06-23] MEDS ORDERED: diphenhydrAMINE HCL 50 MG CAP PO ONE (13:00)
--- NOTE | 2016-06-23 13:58 | HHI.PR ---
Review/Management Daily Summary she is much improved, more alert and oriented now but staff reports intt confusion sitting in bed appropriately, conversing well aware of main ongoing issues going for procedure this pm will follow prn Subjective Subjective Comments No acute neuro events reported No headache Active Medications Current Medications Medications (Trade) Dose Ordered Sig/Virgilio Route Start Time Stop Time Status Last Admin (D50w (Vial) Inj) 25 ml UNSCH PRN IV PUSH 06/16/16 16:00 Glucagon 1 mg 1 mg UNSCH PRN OTHER 06/16/16 16:00 ([facility] Pharm[facility]) 0 ml @ 0 mls/hr UNSCH OTHER 06/16/16 16:00 (Wellbutrin Sr) 150 mg Q12HR PO 06/16/16 21:00 06/23/16 08:32 (Coreg) 25 mg BID PO 06/16/16 21:00 06/23/16 08:32 (Cymbalta Dr) 30 mg BID PO 06/16/16 21:00 06/23/16 08:32 (Neurontin) 300 mg BID PO 06/16/16 21:00 06/23/16 08:32 (Isordil) 5 mg TIDAC PO 06/16/16 17:00 06/23/16 11:57 (Cytomel) 5 mcg DAILY PO 06/17/16 09:00 06/23/16 08:32 (Lactinex) 1 tab TID PO 06/16/16 18:00 06/21/16 17:08 (Synthroid) 150 mcg DAILY@06 PO 06/17/16 06:00 06/23/16 05:52 Miscellaneous Information 1 Q3D T-DERMAL 06/19/16 17:00 06/22/16 15:34 (Zofran Inj) 4 mg Q8HR PRN IV PUSH 06/16/16 16:00 (Tylenol) 650 mg Q4H PRN PO 06/16/16 16:00 ([place] 5-325 Mg) 1 tab Q4H PRN PO 06/16/16 16:00 06/23/16 08:33 (Lasix Inj) 20 mg DAILY IV PUSH 06/17/16 09:00 06/23/16 08:33 Levothyroxine Sodium 25 mcg 25 mcg DAILY@06 PO 06/17/16 06:00 06/23/16 05:52 (Zosyn 3.375 Gm Premix) 50 ml @ 100 mls/hr Q6H IV 06/16/16 21:00 06/23/16 08:32 (Levemir Inj) 20 units HS SQ 06/16/16 21:00 06/22/16 20:11 (Cozaar) 100 mg DAILY PO 06/17/16 09:00 06/23/16 08:32 (Duragesic 25 Mcg Patch.72 Hr) 1 patch Q3D TD 06/22/16 17:00 06/22/16 15:34 Miscellaneous Information 1 Q3D T-DERMAL 06/24/16 09:45 06/24/16 23:59 Haloperidol 2 mg 2 mg HS PO 06/21/16 21:00 06/22/16 20:11 (NS + KCl 20 Meq Inj) 1,000 ml @ 84 mls/hr [id number] IV 06/23/16 00:00 06/23/16 11:57 Allergies Allergies Coded Allergies Contrast Media (Verified Allergy, Severe, Flash pulmonary edema , 06/16/16) PEANUTS (Verified Allergy, Severe, rash, 06/16/16) Exam I&O / VS 06/22/16 06/22/16 06/23/16 15:00 23:00 07:00 Intake Total 580 ml 320 ml 559 ml Output Total 0 ml Balance 580 ml 320 ml 559 ml Intake Oral 480 ml 320 ml 0 ml IV Total 100 ml 559 ml Output Urine Total 0 ml Bladder Scan Volume Amount 891 ml # Voids 0 2 # Bowel Movements 0 1 Vital Signs Date Time Temp Pulse Resp B/P Pulse Ox O2 Delivery O2 Flow Rate FiO2 06/23/16 08:05 98.0 76 22 137/66 90 06/23/16 08:00 Room Air 06/23/16 04:00 98.4 69 17 177/81 94 06/23/16 00:00 98.4 64 16 120/94 95 06/22/16 20:00 Room Air 06/22/16 20:00 97.7 76 18 129/84 94 06/22/16 16:18 98.2 69 19 117/66 98 Objective Micro and Labs Laboratory Tests Test 06/22/16 06/23/16 15:29 05:39 Blood Type A POSITIVE Antibody Screen NEGATIVE Blood Bank Comment White Blood Count 13.3 Red Blood Count 3.55 Hemoglobin 8.8 Hematocrit 27.3 Mean Corpuscular Volume 76.9 Mean Corpuscular Hemoglobin 24.7 Mean Corpuscular Hemoglobin 32.1 Concent Red Cell Distribution Width 16.1 Platelet Count 480 Mean Platelet Volume 6.4 Neutrophils (%) (Auto) 91.2 Lymphocytes (%) (Auto) 5.0 Monocytes (%) (Auto) 3.0 Eosinophils (%) (Auto) 0.4 Basophils (%) (Auto) 0.4 Neutrophils # (Auto) 12.2 Lymphocytes # (Auto) 0.7 Monocytes # (Auto) 0.4 Eosinophils # (Auto) 0.0 Basophils # (Auto) 0.0 CBC Comment AUTO DIFF Differential Total Cells 100 Counted Neutrophils % (Manual) 91 Lymphocytes % 5 Monocytes % 2 Neutrophils # (Manual) 12.4 Myelocytes 2 Differential Comment FINAL DIFF MANUAL Platelet Estimate NORMAL Platelet Morphology Comment NORMAL Red Cell Morphology Comment NORMAL Prothrombin Time 11.2 Prothromb Time International 1.0 Ratio Sodium Level 132 Potassium Level 4.2 Chloride Level 95 Carbon Dioxide Level 30.6 Anion Gap 6 Blood Urea Nitrogen 16 Creatinine 1.28 Estimat Glomerular Filtration 42 Rate Random Glucose 183 Calcium Level 8.4 Arturo Abdul MD Jun 23, 2016 13:58
[2016-06-23] MEDS ORDERED: HEPARIN SODIUM - SQ 10,000 UNITS/ML VIAL ONE (14:35)
[2016-06-23] MEDS ORDERED: HEPARIN SODIUM - IV 10,000 UNITS/10 ML VIAL ONE (14:40)
[2016-06-23] MEDS ORDERED: fentaNYL CITRATE 250 MCG/5 ML AMP ONE (14:47)
[2016-06-23] MEDS ORDERED: MORPHINE SULFATE 4 MG/ML INJ ONE (14:47)
[2016-06-23] MEDS ORDERED: FAMOTIDINE 20 MG/2 ML VIAL ONE (14:50)
[2016-06-23] MEDS ORDERED: diphenhydrAMINE HCL 50 MG/ML VIAL ONE (14:51)
[2016-06-23] MEDS ORDERED: methylPREDNISolone SOD SUCC 125 MG/2 ML VIAL ONE (14:56)
[2016-06-23] MEDS ORDERED: IOHEXOL 300 MG/ML 100 ML BTL (for Rad CT) OTHER ONE (15:43)
[2016-06-23] MEDS ORDERED: DO NOT ADM ANY ANTICOAGULANT DRUGS XX PRN (16:59)
--- NOTE | 2016-06-23 16:59 | HHI.PR ---
Immediate Post Op Note Procedure Date: Jun 23, 2016 Pre Op Diagnosis: B LE leg wounds, PAD Post Op Diagnosis: B LE leg wounds, PAD Surgeon: Shamar Taylor Sourcing Assistant(s): none Procedure: Aortogram w/ B LE angiogram L SFA CHANNEL LIP WETTER (5mm) R WELDING MACHINE OPERATOR GAS Angioseal Debridement of B LE wounds (LLE 200 sq cm) (R LE 40 sq cm) including skin, sub- q tissue, fat Findings: 1. Intact R LE vasculature to tibials (PT/peroneal occluded but AT in line to foot) 2. L SFA occluded, recanalized and CHANNEL LIP WETTER, in-line flow to L foot (AT-DP) 3. Reasonably bleeding tissue beneath eschar bilaterally Complications: none apparent Specimen(s) removed: none Estimated blood loss: 50 mL Anesthesia: General Drains: None Fluids: 400 mL IVF Patient to: PACU Patient Condition: Good Date/Time of Procedure: SEE SURGICAL CARE RECORD Shamar Taylor MD Jun 23, 2016 16:59
[2016-06-23] MEDS ORDERED: ACETAMINOPHEN 325 MG TAB PO PRN (17:00)
[2016-06-23] MEDS ORDERED: Post-op Orders (for Pharmacy) MISC OTHER ONE (17:00)
[2016-06-23] MEDS ORDERED: GLUCAGON 1 MG/ML VIAL OTHER PRN (17:00)
[2016-06-23] MEDS ORDERED: oxyCODONE/ACETAMINOPHEN 5 MG/325 MG TAB PO PRN (17:00)
[2016-06-23] MEDS ORDERED: MAGNESIUM HYDROXIDE SUSP 30 ML CUP PO PRN (17:00)
[2016-06-23] MEDS: INSULIN NovoLIN REGULAR SUPPLEMENTAL SCALE SQ SCH (17:58)
[2016-06-23] MEDS: MORPHINE SULFATE 4 MG/ML INJ IV PUSH PRN (18:31)
[2016-06-23] MEDS: HALOPERIDOL 2 MG TAB PO SCH (20:35)
[2016-06-23] MEDS: oxyCODONE/ACETAMINOPHEN 10 MG/325 MG TAB PO PRN (20:36)
[2016-06-23] MEDS: INSULIN DETEMIR 100 UNITS/ML VIAL SQ SCH (20:47)
[2016-06-24] MEDS: INSULIN NovoLIN REGULAR SUPPLEMENTAL SCALE SQ SCH ×4 (00:46→17:38)
[2016-06-24] MEDS: oxyCODONE/ACETAMINOPHEN 10 MG/325 MG TAB PO PRN ×4 (00:46→22:23)
[2016-06-24] MEDS: PIPERACIL-TAZO 3.375 GM PREMIX 50 ML IV SCH ×4 (02:25→22:21)
[2016-06-24 03:40] VITALS: BP 124/75; PULSE 78; RESP 16; TEMP 98; O2SAT 96
[2016-06-24] MEDS: LEVOTHYROXINE SODIUM 150 MCG TAB PO SCH (06:03)
[2016-06-24] MEDS: LEVOTHYROXINE SODIUM 25 MCG TAB PO SCH (06:04)
[2016-06-24 07:22] LABS: ALT (GPT) 23 U/L (10-53); ANION GAP 7 MEQ/L (5-15); AST (GOT) 18 U/L (15-37); BICARBONATE 29.6 MEQ/L (21.0-32.0); BLOOD UREA NITROGEN 17 MG/DL (7-18); CHLORIDE 95 MEQ/L (98-107); GLOMERULAR FILTRATION RATE 42 ML/MIN (>89); POTASSIUM 3.9 MEQ/L (3.5-5.1); SODIUM (NA) 132 MEQ/L (136-145)
[2016-06-24 07:25] LABS: ALKALINE PHOSPHATASE 115 U/L (45-117); TOTAL BILIRUBIN ADULT 0.4 MG/DL (0.2-1.0)
[2016-06-24 08:00] VITALS: BP 147/68; PULSE 76; RESP 18; TEMP 98.2; O2SAT 97
[2016-06-24] MEDS: ASPIRIN EC 325 MG TABEC PO SCH (08:21)
[2016-06-24] MEDS: CARVEDILOL 12.5 MG TAB PO SCH ×2 (08:21→22:22)
[2016-06-24] MEDS: buPROPion HCL 150 MG SUSTAINED RELEASE TAB PO SCH ×2 (08:21→22:21)
[2016-06-24] MEDS: ISOSORBIDE DINITRATE 5 MG TAB PO SCH ×3 (08:21→17:37)
[2016-06-24] MEDS: GABAPENTIN 300 MG CAP PO SCH ×2 (08:21→22:21)
[2016-06-24] MEDS: DULoxetine HCl DR 30 MG CAP PO SCH ×2 (08:21→22:21)
[2016-06-24] MEDS: LIOTHYRONINE SODIUM 5 MCG TAB PO SCH (08:21)
[2016-06-24] MEDS: FUROSEMIDE 20 MG/2 ML VIAL IV PUSH SCH (08:22)
[2016-06-24] MEDS: LOSARTAN 50 MG TAB PO SCH (08:22)
[2016-06-24] MEDS: LACTOBACILLUS ACIDOPHILUS TAB PO SCH ×3 (08:22→17:26)
[2016-06-24] MEDS: NS + KCL 20 MEQ INJ 1,000 ML IV SCH ×2 (09:12→23:40)
[2016-06-24] MEDS ORDERED: REMOVE OLD PATCH T-DERMAL SCH (09:45)
--- NOTE | 2016-06-24 10:27 | HHI.PR ---
Subjective Remarks overall feeling better. pain is fairly controlled. no new complaints. Objective Vitals Vital Signs Date Time Temp Pulse Resp B/P Pulse Ox O2 Delivery O2 Flow Rate FiO2 06/24/16 08:00 98.2 76 18 147/68 97 06/24/16 03:40 98.0 78 16 124/75 96 06/23/16 23:55 98.4 80 16 127/80 94 06/23/16 19:58 98.0 80 18 78/ 100 06/23/16 19:30 Room Air 06/23/16 17:30 73 15 145/102 99 Room Air 06/23/16 17:15 73 12 159/58 95 Room Air 06/23/16 17:00 66 14 147/84 100 Room Air 06/23/16 16:55 97.6 66 12 173/84 99 Nasal Cannula 2 06/23/16 16:01 98.0 81 20 163/99 97 06/23/16 12:01 98.2 78 22 136/60 94 I/O 06/23/16 06/23/16 06/23/16 06/24/16 06/24/16 06/24/16 07:00 15:00 23:00 07:00 15:00 23:00 Intake Total 559 ml 120 ml 560 ml 0 ml Output Total 0 ml 550 ml 0 ml Balance 559 ml 120 ml 10 ml 0 ml Intake Oral 0 ml 120 ml 60 ml 0 ml IV Total 559 ml Other 500 ml Output Urine Total 0 ml 500 ml 0 ml Estimated Blood Loss 50 ml Other 0 ml # Voids 3 # Bowel Movements 0 0 0 Result Diagram: 06/23/16 0539 06/24/16 0620 Imaging Last Impressions Head CT 06/20/16 0000 Signed Impressions: Service Date/Time: Monday, June 20, 2016 17:52 - CONCLUSION: Slight atrophic and small vessel ischemic changes without any evidence for acute hemorrhage or mass effect. Smith Boateng MD Chest X-Ray 06/16/16 1430 Signed Impressions: Service Date/Time: Thursday, June 16, 2016 14:53 - CONCLUSION: 1. No acute cardiopulmonary findings. Jose Rogers MD Objective Remarks GENERAL: This is a well-nourished, well-developed patient, in no apparent distress. CARDIOVASCULAR: Regular rate and regular rhythm without murmurs, gallops, or rubs. RESPIRATORY: Clear to auscultation. Breath sounds equal bilaterally. No wheezes , rales, or rhonchi. GASTROINTESTINAL: Abdomen soft, non-tender, nondistended. Normal, active bowel sounds MUSCULOSKELETAL: both legs covered with clean dressing. NEURO: Alert & Oriented x4 to person, place, time, situation. Moves all ext x4 Procedures Aortogram w/ B LE angiogram L SFA STATISTICS INTERN R TANK CAR MECHANIC Angioseal Debridement of B LE wounds Medications and IVs Current Medications Piperacillin Sod/ Tazobactam Sod 100 ml @ 200 mls/hr ONCE STAT IV Last administered on 06/16/16 14:55; Start 06/16/16 at 14:30; Stop 06/16/16 at 14:59 ; Status DC Vancomycin HCl/ Sodium Chloride (Vancomycin Inj/ NS 250 ml Inj) 250 ml @ 250 mls/hr ONCE STAT IV ; Start 06/16/16 at 14:30; Stop 06/16/16 at 15:29; Status Cancel Lorazepam 1 mg 1 mg ONCE ONCE IV PUSH ; Start 06/16/16 at 15:00; Stop 06/16/16 at 15:02; Status DC Sodium Chloride (NS 1000 ml Inj) 1,000 ml @ 999 mls/hr BOLUS ONCE IV Last administered on 06/16/16 15:30; Start 06/16/16 at 15:00; Stop 06/16/16 at 16:00 ; Status DC Hydromorphone HCl (Dilaudid Pf Inj) 1 mg ONCE ONCE IV PUSH Last administered on 06/16/16 15:31; Start 06/16/16 at 15:15; Stop 06/16/16 at 15:16; Status DC Ondansetron HCl (Zofran Inj) 4 mg ONCE ONCE IV PUSH Last administered on 15:31; Start 06/16/16 at 15:15; Stop 06/16/16 at 15:16; Status DC Dextrose (D50w (Vial) Inj) 25 ml UNSCH PRN IV PUSH HYPOGLYCEMIA-SEE COMMENTS; Start 06/16/16 at 16:00; Stop 06/23/16 at 17:06; Status DC Glucagon (Glucagon Inj) 1 mg UNSCH PRN OTHER HYPOGLYCEMIA-SEE COMMENTS; Start 06/16/16 at 16:00; Stop 06/23/16 at 17:06; Status DC Insulin Aspart 1 1 ACHS SLIDING SCALE SQ Last administered on 06/23/16 05:52 ; Start 06/16/16 at 16:00; Stop 06/23/16 at 17:06; Status DC Pharmacy Profile Note 0 ml @ 0 mls/hr UNSCH OTHER ; Start 06/16/16 at 16:00; Stop 06/18/16 at 19:34; Status DC Pharmacy Profile Note ([facility]) 0 ml @ 0 mls/hr UNSCH OTHER ; Start 06/16/16 at 16:00 Bupropion HCl (Wellbutrin Sr) 150 mg Q12HR PO Last administered on 06/24/16 08 :21; Start 06/16/16 at 21:00 Carvedilol (Coreg) 25 mg BID PO Last administered on 06/24/16 08:21; Start at 21:00 Duloxetine HCl (Cymbalta Dr) 30 mg BID PO Last administered on 06/24/16 08:21 ; Start 06/16/16 at 21:00 Fentanyl (Duragesic 50 Mcg Patch.72 Hr) 1 patch Q3D TD Last administered on 17:40; Start 06/16/16 at 17:00; Stop 06/22/16 at 16:00; Status DC Gabapentin (Neurontin) 300 mg BID PO Last administered on 06/24/16 08:21; Start 06/16/16 at 21:00 Insulin Detemir (Levemir Inj) 20 units Q12HR SQ ; Start 06/16/16 at 21:00; Stop 06/16/16 at 21:00; Status DC Isosorbide Dinitrate (Isordil) 5 mg TIDAC PO Last administered on 06/24/16 08: 21; Start 06/16/16 at 17:00 Liothyronine Sodium (Cytomel) 5 mcg DAILY PO Last administered on 06/24/16 08: 21; Start 06/17/16 at 09:00 Lactobacillus Acidophilus (Lactinex) 1 tab TID PO Last administered on 17:08; Start 06/16/16 at 18:00 Levothyroxine Sodium (Synthroid) 150 mcg DAILY@06 PO Last administered on 06:03; Start 06/17/16 at 06:00 Miscellaneous Information 1 Q3D T-DERMAL Last administered on 06/22/16 15:34; Start 06/19/16 at 17:00; Stop 06/23/16 at 21:04; Status DC Ondansetron HCl (Zofran Inj) 4 mg Q8HR PRN IV PUSH NAUSEA; Start 06/16/16 at 16 :00 Acetaminophen (Tylenol) 650 mg Q4H PRN PO FEVER; Start 06/16/16 at 16:00; Stop 06/23/16 at 17:05; Status DC Acetaminophen/ Hydrocodone Bitart ([place] 5-325 Mg) 1 tab Q4H PRN PO PAIN > 5 Last administered on 06/23/16 08:33; Start 06/16/16 at 16:00; Stop 06/23/16 at 17:07; Status DC Furosemide (Lasix Inj) 20 mg DAILY IV PUSH Last administered on 06/24/16 08:22 ; Start 06/17/16 at 09:00 Levothyroxine Sodium 25 mcg 25 mcg DAILY@06 PO Last administered on 06/24/16 06:04; Start 06/17/16 at 06:00 Vancomycin HCl/ Sodium Chloride (Vancomycin Inj/ NS 500 ml Inj) 514 ml @ 250 mls/hr Q24H IV Last administered on 06/18/16 16:40; Start 06/16/16 at 17:00; Stop 06/18/16 at 19:35; Status DC Miscellaneous Information SPECIFIC LAB TO BE [facility]... ONCE ONCE XX ; Start at 16:45; Stop 06/19/16 at 16:46; Status Cancel Piperacillin Sod/ Tazobactam Sod (Zosyn 3.375 Gm Premix) 50 ml @ 100 mls/hr Q6H IV Last administered on 06/24/16 08:21; Start 06/16/16 at 21:00 Insulin Detemir (Levemir Inj) 20 units HS SQ Last administered on 06/23/16 20: 47; Start 06/16/16 at 21:00 Losartan Potassium (Cozaar) 100 mg DAILY PO Last administered on 06/24/16 08: 22; Start 06/17/16 at 09:00 Hydromorphone HCl (Dilaudid Pf Inj) 0.5 mg ONCE ONCE SQ ; Start 06/18/16 at 14: 00; Stop 06/18/16 at 14:01; Status Cancel Hydromorphone HCl (Dilaudid Pf Inj) 0.5 mg NOW ONCE IV Last administered on 14:45; Start 06/18/16 at 14:45; Stop 06/18/16 at 14:46; Status DC Fentanyl (Duragesic 25 Mcg Patch.72 Hr) 1 patch Q3D TD Last administered on 15:34; Start 06/22/16 at 17:00 Miscellaneous Information 1 Q3D T-DERMAL ; Start 06/24/16 at 09:45; Stop at 09:45; Status DC Haloperidol (Haldol) 2 mg HS PO Last administered on 06/23/16 20:35; Start at 21:00 Prednisone (Deltasone) 50 mg ONCE ONCE PO Last administered on 06/23/16 00:14 ; Start 06/23/16 at 01:00; Stop 06/23/16 at 01:01; Status DC Prednisone (Deltasone) 50 mg ONCE ONCE PO Last administered on 06/23/16 05:52 ; Start 06/23/16 at 07:00; Stop 06/23/16 at 07:01; Status DC Prednisone (Deltasone) 50 mg ONCE ONCE PO Last administered on 06/23/16 12:54 ; Start 06/23/16 at 13:00; Stop 06/23/16 at 13:01; Status DC Diphenhydramine HCl 50 mg 50 mg ONCE ONCE PO Last administered on 06/23/16 12 :54; Start 06/23/16 at 13:00; Stop 06/23/16 at 13:01; Status DC Potassium Chloride/Sodium Chloride (NS + KCl 20 Meq Inj) 1,000 ml @ 84 mls/hr [id number] IV Last administered on 06/23/16 11:57; Start 06/23/16 at 00:00 Heparin Sodium (Porcine) (Heparin Inj) 10,000 units STK-MED ONCE .ROUTE Last administered on 06/23/16 15:43; Start 06/23/16 at 14:35; Stop 06/23/16 at 14:36 ; Status DC Heparin Sodium (Porcine) (Heparin Inj) 10,000 units STK-MED ONCE .ROUTE ; Start 06/23/16 at 14:40; Stop 06/23/16 at 14:41; Status DC Fentanyl Citrate (fentaNYL INJ) 250 mcg STK-MED ONCE .ROUTE ; Start 06/23/16 at 14:47; Stop 06/23/16 at 14:48; Status DC Morphine Sulfate (Morphine Inj) 4 mg STK-MED ONCE .ROUTE ; Start 06/23/16 at 14: 47; Stop 06/23/16 at 14:48; Status DC Famotidine (Pepcid Inj) 20 mg STK-MED ONCE .ROUTE ; Start 06/23/16 at 14:50; Stop 06/23/16 at 14:51; Status DC Diphenhydramine HCl (Benadryl Inj) 50 mg STK-MED ONCE .ROUTE ; Start 06/23/16 at 14:51; Stop 06/23/16 at 14:52; Status DC Methylprednisolone Sodium Succinate (SoluMEDROL INJ) 125 mg STK-MED ONCE .ROUTE ; Start 06/23/16 at 14:56; Stop 06/23/16 at 14:57; Status DC Iohexol (OMNIPAQUE 300 INJ (Rad CT)) 100 ml STK-MED ONCE OTHER Last administered on 06/23/16 15:43; Start 06/23/16 at 15:43; Stop 06/23/16 at 15:48 ; Status DC Aspirin (Ecotrin Ec) 325 mg DAILY PO Last administered on 06/24/16 08:21; Start 06/24/16 at 09:00 Acetaminophen (Tylenol) 650 mg Q4H PRN PO TEMPERATURE > 101 F; Start 06/23/16 at 17:00 Magnesium Hydroxide (Milk Of Magnesia Liq) 30 ml DAILY PRN PO CONSTIPATION; Start 06/23/16 at 17:00 Oxycodone/ Acetaminophen (Percocet 5-325 Mg) 1 tab Q4H PRN PO PAIN SCALE 1 TO 5; Start 06/23/16 at 17:00 Oxycodone/ Acetaminophen (Percocet 10-325 Mg) 1 tab Q4H PRN PO PAIN SCALE 6 TO 10 Last administered on 06/24/16 06:04; Start 06/23/16 at 17:00 Morphine Sulfate (Morphine Inj) 4 mg Q4H PRN IV PUSH BREAKTHROUGH PAIN Last administered on 06/23/16 18:31; Start 06/23/16 at 17:00 Miscellaneous Information (Post-op Orders (for Pharmacy)) STAT ONCE OTHER ; Start 06/23/16 at 17:00; Stop 06/23/16 at 17:03; Status DC Insulin Human Regular (NovoLIN R SUPPLEMENTAL SCALE) 1 Q6HR SQ Last administered on 06/24/16 06:05; Start 06/23/16 at 18:00 Dextrose (D50w (Vial) Inj) 25 ml UNSCH PRN IV PUSH HYPOGLYCEMIA-SEE COMMENTS; Start 06/23/16 at 17:00 Glucagon (Glucagon Inj) 1 mg UNSCH PRN OTHER HYPOGLYCEMIA-SEE COMMENTS; Start 06/23/16 at 17:00 Miscellaneous Information ALL NURSING DEPARTME... UNSCH PRN XX SEE LABEL COMMENTS; Start 06/23/16 at 16:59; Stop 06/24/16 at 16:58 Miscellaneous Information 1 Q3D T-DERMAL ; Start 06/25/16 at 17:00 A/P Assessment and Plan - cellulitis of both legs with bilateral lower extremity wounds with history of PVD s/p Aortogram w/ B LE angiogram/L SFA STATISTICS INTERN/R TANK CAR MECHANIC Angioseal and Debridement of B LE wounds continue with IV Zosyn per ID- continue pain control- ID, vascular surgery and wound care following. -confusional episode with reported hallucinations- improved- neurology and psych consulted. decreased the dose of Fentanyl patch . -hyponatremia; seems to be chronic- asymptomatic- improved. -anemia of chronic disease- H/H fairly stable.will monitor -diabetes mellitus; resumed long acting insulin- accu-check with SSI -cardiomyopathy; resumed BB, nitrate and diuretic -chronic renal insufficiency; stable- will monitor the renal function for now -hypothyroidism; resumed home meds -DVT prophylaxis;will start chemical prophylaxis when ok with vascular surgery Conrad Clancy MD Jun 24, 2016 10:27
[2016-06-24 12:00] VITALS: BP 122/56; PULSE 98; RESP 20; TEMP 97.9; O2SAT 95
[2016-06-24] MEDS: MORPHINE SULFATE 4 MG/ML INJ IV PUSH PRN (13:16)
[2016-06-24 16:00] VITALS: BP 137/66; PULSE 74; RESP 20; TEMP 98.4; O2SAT 96
[2016-06-24 19:52] VITALS: BP 139/67; PULSE 81; RESP 16; TEMP 97.5; O2SAT 94
[2016-06-24] MEDS: HALOPERIDOL 2 MG TAB PO SCH (22:22)
[2016-06-24] MEDS: INSULIN DETEMIR 100 UNITS/ML VIAL SQ SCH (22:22)
[2016-06-24 23:22] VITALS: BP 135/77; PULSE 77; RESP 16; TEMP 97.7; O2SAT 94
[2016-06-25] MEDS: INSULIN NovoLIN REGULAR SUPPLEMENTAL SCALE SQ SCH ×4 (00:18→18:00)
[2016-06-25] MEDS: PIPERACIL-TAZO 3.375 GM PREMIX 50 ML IV SCH ×4 (03:49→21:08)
[2016-06-25 04:13] VITALS: BP 147/66; PULSE 69; RESP 16; TEMP 97.4; O2SAT 96
[2016-06-25] MEDS: LEVOTHYROXINE SODIUM 150 MCG TAB PO SCH (05:35)
[2016-06-25] MEDS: LEVOTHYROXINE SODIUM 25 MCG TAB PO SCH (05:35)
[2016-06-25] MEDS: oxyCODONE/ACETAMINOPHEN 10 MG/325 MG TAB PO PRN ×2 (05:35→09:17)
[2016-06-25 07:56] VITALS: BP 168/83; PULSE 66; RESP 20; TEMP 97.3; O2SAT 94
[2016-06-25] MEDS: LIOTHYRONINE SODIUM 5 MCG TAB PO SCH (09:07)
[2016-06-25] MEDS: buPROPion HCL 150 MG SUSTAINED RELEASE TAB PO SCH ×2 (09:07→21:09)
[2016-06-25] MEDS: CARVEDILOL 12.5 MG TAB PO SCH ×2 (09:07→21:07)
[2016-06-25] MEDS: LACTOBACILLUS ACIDOPHILUS TAB PO SCH ×3 (09:07→18:46)
[2016-06-25] MEDS: LOSARTAN 50 MG TAB PO SCH (09:07)
[2016-06-25] MEDS: DULoxetine HCl DR 30 MG CAP PO SCH ×2 (09:07→21:08)
[2016-06-25] MEDS: ISOSORBIDE DINITRATE 5 MG TAB PO SCH ×3 (09:07→18:46)
[2016-06-25] MEDS: ASPIRIN EC 325 MG TABEC PO SCH (09:07)
[2016-06-25] MEDS: FUROSEMIDE 20 MG/2 ML VIAL IV PUSH SCH (09:07)
[2016-06-25] MEDS: GABAPENTIN 300 MG CAP PO SCH ×2 (09:07→21:07)
[2016-06-25 10:00] VITALS: BP 95/53; PULSE 65; RESP 20; TEMP 97.4; O2SAT 96
--- NOTE | 2016-06-25 10:10 | HHI.PR ---
Subjective Remarks looks comfortable. pain is controlled. no fever. no new complaints. Objective Vitals Vital Signs Date Time Temp Pulse Resp B/P Pulse Ox O2 Delivery O2 Flow Rate FiO2 06/25/16 07:56 97.3 66 20 168/83 94 06/25/16 04:13 97.4 69 16 147/66 96 06/24/16 23:22 97.7 77 16 135/77 94 06/24/16 20:30 Room Air 06/24/16 19:52 97.5 81 16 139/67 94 06/24/16 16:00 98.4 74 20 137/66 96 06/24/16 12:00 97.9 98 20 122/56 95 I/O 06/24/16 06/24/16 06/24/16 06/25/16 06/25/16 06/25/16 07:00 15:00 23:00 07:00 15:00 23:00 Intake Total 0 ml 480 ml 360 ml 0 ml Output Total 0 ml 100 ml 0 ml 800 ml Balance 0 ml 380 ml 360 ml -800 ml Intake Oral 0 ml 480 ml 360 ml 0 ml Output Urine Total 0 ml 100 ml 0 ml 800 ml # Bowel Movements 0 0 0 0 Result Diagram: 06/23/16 0539 06/24/16 0620 Imaging Last Impressions Head CT 06/20/16 0000 Signed Impressions: Service Date/Time: Monday, June 20, 2016 17:52 - CONCLUSION: Slight atrophic and small vessel ischemic changes without any evidence for acute hemorrhage or mass effect. Smith Boateng MD Chest X-Ray 06/16/16 1430 Signed Impressions: Service Date/Time: Thursday, June 16, 2016 14:53 - CONCLUSION: 1. No acute cardiopulmonary findings. Jose Rogers MD Objective Remarks GENERAL: This is a well-nourished, well-developed patient, in no apparent distress. CARDIOVASCULAR: Regular rate and regular rhythm without murmurs, gallops, or rubs. RESPIRATORY: Clear to auscultation. Breath sounds equal bilaterally. No wheezes , rales, or rhonchi. GASTROINTESTINAL: Abdomen soft, non-tender, nondistended. Normal, active bowel sounds MUSCULOSKELETAL: both legs covered with clean dressing. NEURO: Alert & Oriented x4 to person, place, time, situation. Moves all ext x4 Procedures Aortogram w/ B LE angiogram L SFA TOPSTITCHER LOCKSTITCH R BARBER SHOP OPERATOR Angioseal Debridement of B LE wounds Medications and IVs Current Medications Piperacillin Sod/ Tazobactam Sod 100 ml @ 200 mls/hr ONCE STAT IV Last administered on 06/16/16 14:55; Start 06/16/16 at 14:30; Stop 06/16/16 at 14:59 ; Status DC Vancomycin HCl/ Sodium Chloride (Vancomycin Inj/ NS 250 ml Inj) 250 ml @ 250 mls/hr ONCE STAT IV ; Start 06/16/16 at 14:30; Stop 06/16/16 at 15:29; Status Cancel Lorazepam 1 mg 1 mg ONCE ONCE IV PUSH ; Start 06/16/16 at 15:00; Stop 06/16/16 at 15:02; Status DC Sodium Chloride (NS 1000 ml Inj) 1,000 ml @ 999 mls/hr BOLUS ONCE IV Last administered on 06/16/16 15:30; Start 06/16/16 at 15:00; Stop 06/16/16 at 16:00 ; Status DC Hydromorphone HCl (Dilaudid Pf Inj) 1 mg ONCE ONCE IV PUSH Last administered on 06/16/16 15:31; Start 06/16/16 at 15:15; Stop 06/16/16 at 15:16; Status DC Ondansetron HCl (Zofran Inj) 4 mg ONCE ONCE IV PUSH Last administered on 15:31; Start 06/16/16 at 15:15; Stop 06/16/16 at 15:16; Status DC Dextrose (D50w (Vial) Inj) 25 ml UNSCH PRN IV PUSH HYPOGLYCEMIA-SEE COMMENTS; Start 06/16/16 at 16:00; Stop 06/23/16 at 17:06; Status DC Glucagon (Glucagon Inj) 1 mg UNSCH PRN OTHER HYPOGLYCEMIA-SEE COMMENTS; Start 06/16/16 at 16:00; Stop 06/23/16 at 17:06; Status DC Insulin Aspart 1 1 ACHS SLIDING SCALE SQ Last administered on 06/23/16 05:52 ; Start 06/16/16 at 16:00; Stop 06/23/16 at 17:06; Status DC Pharmacy Profile Note 0 ml @ 0 mls/hr UNSCH OTHER ; Start 06/16/16 at 16:00; Stop 06/18/16 at 19:34; Status DC Pharmacy Profile Note ([facility]) 0 ml @ 0 mls/hr UNSCH OTHER ; Start 06/16/16 at 16:00 Bupropion HCl (Wellbutrin Sr) 150 mg Q12HR PO Last administered on 06/25/16 09: 07; Start 06/16/16 at 21:00 Carvedilol (Coreg) 25 mg BID PO Last administered on 06/25/16 09:07; Start at 21:00 Duloxetine HCl (Cymbalta Dr) 30 mg BID PO Last administered on 06/25/16 09:07; Start 06/16/16 at 21:00 Fentanyl (Duragesic 50 Mcg Patch.72 Hr) 1 patch Q3D TD Last administered on 17:40; Start 06/16/16 at 17:00; Stop 06/22/16 at 16:00; Status DC Gabapentin (Neurontin) 300 mg BID PO Last administered on 06/25/16 09:07; Start 06/16/16 at 21:00 Insulin Detemir (Levemir Inj) 20 units Q12HR SQ ; Start 06/16/16 at 21:00; Stop 06/16/16 at 21:00; Status DC Isosorbide Dinitrate (Isordil) 5 mg TIDAC PO Last administered on 06/25/16 09: 07; Start 06/16/16 at 17:00 Liothyronine Sodium (Cytomel) 5 mcg DAILY PO Last administered on 06/25/16 09: 07; Start 06/17/16 at 09:00 Lactobacillus Acidophilus (Lactinex) 1 tab TID PO Last administered on 09:07; Start 06/16/16 at 18:00 Levothyroxine Sodium (Synthroid) 150 mcg DAILY@06 PO Last administered on 05:35; Start 06/17/16 at 06:00 Miscellaneous Information 1 Q3D T-DERMAL Last administered on 06/22/16 15:34; Start 06/19/16 at 17:00; Stop 06/23/16 at 21:04; Status DC Ondansetron HCl (Zofran Inj) 4 mg Q8HR PRN IV PUSH NAUSEA; Start 06/16/16 at 16 :00 Acetaminophen (Tylenol) 650 mg Q4H PRN PO FEVER; Start 06/16/16 at 16:00; Stop 06/23/16 at 17:05; Status DC Acetaminophen/ Hydrocodone Bitart ([place] 5-325 Mg) 1 tab Q4H PRN PO PAIN > 5 Last administered on 06/23/16 08:33; Start 06/16/16 at 16:00; Stop 06/23/16 at 17:07; Status DC Furosemide (Lasix Inj) 20 mg DAILY IV PUSH Last administered on 06/25/16 09:07 ; Start 06/17/16 at 09:00 Levothyroxine Sodium 25 mcg 25 mcg DAILY@06 PO Last administered on 06/25/16 05 :35; Start 06/17/16 at 06:00 Vancomycin HCl/ Sodium Chloride (Vancomycin Inj/ NS 500 ml Inj) 514 ml @ 250 mls/hr Q24H IV Last administered on 06/18/16 16:40; Start 06/16/16 at 17:00; Stop 06/18/16 at 19:35; Status DC Miscellaneous Information SPECIFIC LAB TO BE [facility]... ONCE ONCE XX ; Start at 16:45; Stop 06/19/16 at 16:46; Status Cancel Piperacillin Sod/ Tazobactam Sod (Zosyn 3.375 Gm Premix) 50 ml @ 100 mls/hr Q6H IV Last administered on 06/25/16 09:07; Start 06/16/16 at 21:00 Insulin Detemir (Levemir Inj) 20 units HS SQ Last administered on 06/24/16 22: 22; Start 06/16/16 at 21:00 Losartan Potassium (Cozaar) 100 mg DAILY PO Last administered on 06/25/16 09:07 ; Start 06/17/16 at 09:00 Hydromorphone HCl (Dilaudid Pf Inj) 0.5 mg ONCE ONCE SQ ; Start 06/18/16 at 14: 00; Stop 06/18/16 at 14:01; Status Cancel Hydromorphone HCl (Dilaudid Pf Inj) 0.5 mg NOW ONCE IV Last administered on 14:45; Start 06/18/16 at 14:45; Stop 06/18/16 at 14:46; Status DC Fentanyl (Duragesic 25 Mcg Patch.72 Hr) 1 patch Q3D TD Last administered on 15:34; Start 06/22/16 at 17:00 Miscellaneous Information 1 Q3D T-DERMAL ; Start 06/24/16 at 09:45; Stop at 09:45; Status DC Haloperidol (Haldol) 2 mg HS PO Last administered on 06/24/16 22:22; Start at 21:00 Prednisone (Deltasone) 50 mg ONCE ONCE PO Last administered on 06/23/16 00:14 ; Start 06/23/16 at 01:00; Stop 06/23/16 at 01:01; Status DC Prednisone (Deltasone) 50 mg ONCE ONCE PO Last administered on 06/23/16 05:52 ; Start 06/23/16 at 07:00; Stop 06/23/16 at 07:01; Status DC Prednisone (Deltasone) 50 mg ONCE ONCE PO Last administered on 06/23/16 12:54 ; Start 06/23/16 at 13:00; Stop 06/23/16 at 13:01; Status DC Diphenhydramine HCl 50 mg 50 mg ONCE ONCE PO Last administered on 06/23/16 12 :54; Start 06/23/16 at 13:00; Stop 06/23/16 at 13:01; Status DC Potassium Chloride/Sodium Chloride (NS + KCl 20 Meq Inj) 1,000 ml @ 84 mls/hr [id number] IV Last administered on 06/23/16 11:57; Start 06/23/16 at 00:00 Heparin Sodium (Porcine) (Heparin Inj) 10,000 units STK-MED ONCE .ROUTE Last administered on 06/23/16 15:43; Start 06/23/16 at 14:35; Stop 06/23/16 at 14:36 ; Status DC Heparin Sodium (Porcine) (Heparin Inj) 10,000 units STK-MED ONCE .ROUTE ; Start 06/23/16 at 14:40; Stop 06/23/16 at 14:41; Status DC Fentanyl Citrate (fentaNYL INJ) 250 mcg STK-MED ONCE .ROUTE ; Start 06/23/16 at 14:47; Stop 06/23/16 at 14:48; Status DC Morphine Sulfate (Morphine Inj) 4 mg STK-MED ONCE .ROUTE ; Start 06/23/16 at 14: 47; Stop 06/23/16 at 14:48; Status DC Famotidine (Pepcid Inj) 20 mg STK-MED ONCE .ROUTE ; Start 06/23/16 at 14:50; Stop 06/23/16 at 14:51; Status DC Diphenhydramine HCl (Benadryl Inj) 50 mg STK-MED ONCE .ROUTE ; Start 06/23/16 at 14:51; Stop 06/23/16 at 14:52; Status DC Methylprednisolone Sodium Succinate (SoluMEDROL INJ) 125 mg STK-MED ONCE .ROUTE ; Start 06/23/16 at 14:56; Stop 06/23/16 at 14:57; Status DC Iohexol (OMNIPAQUE 300 INJ (Rad CT)) 100 ml STK-MED ONCE OTHER Last administered on 06/23/16 15:43; Start 06/23/16 at 15:43; Stop 06/23/16 at 15:48 ; Status DC Aspirin (Ecotrin Ec) 325 mg DAILY PO Last administered on 06/25/16 09:07; Start 06/24/16 at 09:00 Acetaminophen (Tylenol) 650 mg Q4H PRN PO TEMPERATURE > 101 F; Start 06/23/16 at 17:00 Magnesium Hydroxide (Milk Of Magnesia Liq) 30 ml DAILY PRN PO CONSTIPATION; Start 06/23/16 at 17:00 Oxycodone/ Acetaminophen (Percocet 5-325 Mg) 1 tab Q4H PRN PO PAIN SCALE 1 TO 5; Start 06/23/16 at 17:00 Oxycodone/ Acetaminophen (Percocet 10-325 Mg) 1 tab Q4H PRN PO PAIN SCALE 6 TO 10 Last administered on 06/25/16 09:17; Start 06/23/16 at 17:00 Morphine Sulfate (Morphine Inj) 4 mg Q4H PRN IV PUSH BREAKTHROUGH PAIN Last administered on 06/24/16 13:16; Start 06/23/16 at 17:00 Miscellaneous Information (Post-op Orders (for Pharmacy)) STAT ONCE OTHER ; Start 06/23/16 at 17:00; Stop 06/23/16 at 17:03; Status DC Insulin Human Regular (NovoLIN R SUPPLEMENTAL SCALE) 1 Q6HR SQ Last administered on 06/25/16t 00:18; Start 06/23/16 at 18:00 Dextrose (D50w (Vial) Inj) 25 ml UNSCH PRN IV PUSH HYPOGLYCEMIA-SEE COMMENTS; Start 06/23/16 at 17:00 Glucagon (Glucagon Inj) 1 mg UNSCH PRN OTHER HYPOGLYCEMIA-SEE COMMENTS; Start 06/23/16 at 17:00 Miscellaneous Information ALL NURSING DEPARTME... UNSCH PRN XX SEE LABEL COMMENTS; Start 06/23/16 at 16:59; Stop 06/24/16 at 16:58; Status DC Miscellaneous Information 1 Q3D T-DERMAL ; Start 06/25/16 at 17:00 Propofol (Diprivan 200 Mg/20 ml Inj) 200 mg STK-MED ONCE IV ; Start 06/23/16 at 12:01; Stop 06/24/16 at 12:01; Status DC Neostigmine Methylsulfate (Prostigmin Inj) 3 mg STK-MED ONCE IV ; Start at 12:01; Stop 06/24/16 at 12:01; Status DC Ondansetron HCl (Zofran Inj) 4 mg STK-MED ONCE IV PUSH ; Start 06/23/16 at 12:01 ; Stop 06/24/16 at 12:01; Status DC A/P Assessment and Plan - cellulitis of both legs with bilateral lower extremity wounds with history of PVD s/p Aortogram w/ B LE angiogram/L SFA TOPSTITCHER LOCKSTITCH/R BARBER SHOP OPERATOR Angioseal and Debridement of B LE wounds continue with IV Zosyn per ID- continue pain control- ID, vascular surgery and wound care following. -confusional episode with reported hallucinations- improved- neurology and psych consulted. decreased the dose of Fentanyl patch . -hyponatremia; seems to be chronic- asymptomatic- improved. -anemia of chronic disease- H/H fairly stable.will monitor -diabetes mellitus; resumed long acting insulin- accu-check with SSI -cardiomyopathy; resumed BB, nitrate and diuretic -chronic renal insufficiency; stable- will monitor the renal function for now -hypothyroidism; resumed home meds -DVT prophylaxis;will start chemical prophylaxis when ok with vascular surgery Conrad Clancy MD Jun 25, 2016 10:10
[2016-06-25] MEDS ORDERED: FENT25T TD (10:12)
[2016-06-25] MEDS ORDERED: OXYC1TAB63 PO (10:12)
[2016-06-25] MEDS ORDERED: CLON0.5T PO (10:12)
[2016-06-25] MEDS: NS + KCL 20 MEQ INJ 1,000 ML IV SCH (11:09)
[2016-06-25 16:00] VITALS: BP 160/90; PULSE 69; RESP 16; TEMP 97.5; O2SAT 97
[2016-06-25] MEDS: REMOVE OLD PATCH T-DERMAL SCH (17:00)
[2016-06-25] MEDS: fentaNYL 25 MCG/HR PATCH TD SCH (17:00)
[2016-06-25 20:28] LABS: BASOPHIL % 0.3 % (0.0-2.0); EOSINOPHIL # 0.1 TH/MM3 (0-0.4); EOSINOPHIL % 1.3 % (0.0-4.0); HEMATOCRIT 29.9 % (35.0-46.0); LYMPH % 18.2 % (9.0-44.0); MEAN CELL VOLUME 77.6 FL (80.0-100.0); MEAN CORPUSCULAR HEMOGLOBIN 23.8 PG (27.0-34.0); MEAN CORPUSCULAR HGB CONC 30.7 % (32.0-36.0); MONO % 7.8 % (0.0-8.0); NEUT % 72.4 % (16.0-70.0); PLATELET COUNT 560 TH/MM3 (150-450); RED BLOOD COUNT 3.86 MIL/MM3 (4.00-5.30); RED CELL DISTRIBUTION WIDTH 16.2 % (11.6-17.2)
[2016-06-25 20:29] LABS: HEMO FLAGS AUTO DIFF
[2016-06-25 20:50] VITALS: BP 142/68; PULSE 80; RESP 18; TEMP 98; O2SAT 100
[2016-06-25 20:57] LABS: BANDS 1 % (0-6); EOSINOPHILS 3 % (0-4); NEUTROPHIL # MANUAL DIFF 7.6 TH/MM3 (1.8-7.7); POLYS (SEG NEUTROPHILS) 67 % (16-70); PROMYELOCYTES 1 % (0-0); WBC DIFF SAMPLE 100
[2016-06-25 20:58] LABS: PLATELET ESTIMATE SMEAR HIGH (NORMAL); PLATELET MORPHOLOGY NORMAL (NORMAL); SCAN/DIFF FINAL DIFF MANUAL
[2016-06-25] MEDS: HALOPERIDOL 2 MG TAB PO SCH ×2 (21:00→21:09)
[2016-06-25 21:02] LABS: BICARBONATE 31.4 MEQ/L (21.0-32.0); POTASSIUM 4.3 MEQ/L (3.5-5.1)
[2016-06-25] MEDS: INSULIN DETEMIR 100 UNITS/ML VIAL SQ SCH (21:09)
[2016-06-25 23:34] VITALS: BP 156/68; PULSE 70; RESP 18; TEMP 98.3; O2SAT 96
[2016-06-26] MEDS: INSULIN NovoLIN REGULAR SUPPLEMENTAL SCALE SQ SCH ×4 (01:07→18:49)
[2016-06-26] MEDS: NS + KCL 20 MEQ INJ 1,000 ML IV SCH ×3 (01:37→23:20)
[2016-06-26] MEDS: PIPERACIL-TAZO 3.375 GM PREMIX 50 ML IV SCH ×4 (02:25→21:00)
[2016-06-26 04:20] VITALS: BP 145/66; PULSE 74; RESP 18; TEMP 98.3; O2SAT 95
[2016-06-26] MEDS: LEVOTHYROXINE SODIUM 150 MCG TAB PO SCH (05:35)
[2016-06-26] MEDS: LEVOTHYROXINE SODIUM 25 MCG TAB PO SCH (05:35)
[2016-06-26] MEDS: ISOSORBIDE DINITRATE 5 MG TAB PO SCH ×3 (05:36→18:48)
[2016-06-26 08:00] VITALS: BP 172/73; PULSE 73; RESP 20; TEMP 98.5; O2SAT 99
--- NOTE | 2016-06-26 08:42 | HHI.PR ---
Subjective Remarks in no distress. afebrile. says that at times the ' pain pills' makes her confused. no other complaints. Objective Vitals Vital Signs Date Time Temp Pulse Resp B/P Pulse Ox O2 Delivery O2 Flow Rate FiO2 06/26/16 04:20 98.3 74 18 145/66 95 06/25/16 23:34 98.3 70 18 156/68 96 06/25/16 20:50 98.0 80 18 142/68 100 06/25/16 20:00 Room Air 2.00 06/25/16 16:00 97.5 69 16 160/90 97 Automatic Cuff 06/25/16 10:00 97.4 65 20 95/53 96 I/O 06/25/16 06/25/16 06/25/16 06/26/16 06/26/16 06/26/16 07:00 15:00 23:00 07:00 15:00 23:00 Intake Total 0 ml 780 ml 360 ml 200 ml Output Total 800 ml 0 ml Balance -800 ml 780 ml 360 ml 200 ml Intake Oral 0 ml 400 ml 360 ml 200 ml IV Total 380 ml Output Urine Total 800 ml Stool Total 0 ml # Voids 0 1 6 # Bowel Movements 0 0 0 Result Diagram: 06/25/16 1930 06/25/16 1930 Imaging Last Impressions Head CT 06/20/16 0000 Signed Impressions: Service Date/Time: Monday, June 20, 2016 17:52 - CONCLUSION: Slight atrophic and small vessel ischemic changes without any evidence for acute hemorrhage or mass effect. Smith Boateng MD Chest X-Ray 06/16/16 1430 Signed Impressions: Service Date/Time: Thursday, June 16, 2016 14:53 - CONCLUSION: 1. No acute cardiopulmonary findings. Jose Rogers MD Objective Remarks GENERAL: This is a well-nourished, well-developed patient, in no apparent distress. CARDIOVASCULAR: Regular rate and regular rhythm without murmurs, gallops, or rubs. RESPIRATORY: Clear to auscultation. Breath sounds equal bilaterally. No wheezes , rales, or rhonchi. GASTROINTESTINAL: Abdomen soft, non-tender, nondistended. Normal, active bowel sounds MUSCULOSKELETAL: both legs covered with clean dressing. NEURO: Alert & Oriented x4 to person, place, time, situation. 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 OFFICER Angioseal Debridement of B LE wounds Medications and IVs Current Medications Piperacillin Sod/ Tazobactam Sod 100 ml @ 200 mls/hr ONCE STAT IV Last administered on 06/16/16 14:55; Start 06/16/16 at 14:30; Stop 06/16/16 at 14:59 ; Status DC Vancomycin HCl/ Sodium Chloride (Vancomycin Inj/ NS 250 ml Inj) 250 ml @ 250 mls/hr ONCE STAT IV ; Start 06/16/16 at 14:30; Stop 06/16/16 at 15:29; Status Cancel Lorazepam 1 mg 1 mg ONCE ONCE IV PUSH ; Start 06/16/16 at 15:00; Stop 06/16/16 at 15:02; Status DC Sodium Chloride (NS 1000 ml Inj) 1,000 ml @ 999 mls/hr BOLUS ONCE IV Last administered on 06/16/16 15:30; Start 06/16/16 at 15:00; Stop 06/16/16 at 16:00 ; Status DC Hydromorphone HCl (Dilaudid Pf Inj) 1 mg ONCE ONCE IV PUSH Last administered on 06/16/16 15:31; Start 06/16/16 at 15:15; Stop 06/16/16 at 15:16; Status DC Ondansetron HCl (Zofran Inj) 4 mg ONCE ONCE IV PUSH Last administered on 15:31; Start 06/16/16 at 15:15; Stop 06/16/16 at 15:16; Status DC Dextrose (D50w (Vial) Inj) 25 ml UNSCH PRN IV PUSH HYPOGLYCEMIA-SEE COMMENTS; Start 06/16/16 at 16:00; Stop 06/23/16 at 17:06; Status DC Glucagon (Glucagon Inj) 1 mg UNSCH PRN OTHER HYPOGLYCEMIA-SEE COMMENTS; Start 06/16/16 at 16:00; Stop 06/23/16 at 17:06; Status DC Insulin Aspart 1 1 ACHS SLIDING SCALE SQ Last administered on 06/23/16 05:52 ; Start 06/16/16 at 16:00; Stop 06/23/16 at 17:06; Status DC Pharmacy Profile Note 0 ml @ 0 mls/hr UNSCH OTHER ; Start 06/16/16 at 16:00; Stop 06/18/16 at 19:34; Status DC Pharmacy Profile Note ([facility]) 0 ml @ 0 mls/hr UNSCH OTHER ; Start 06/16/16 at 16:00 Bupropion HCl (Wellbutrin Sr) 150 mg Q12HR PO Last administered on 06/25/16 21: 09; Start 06/16/16 at 21:00 Carvedilol (Coreg) 25 mg BID PO Last administered on 06/25/16 21:07; Start at 21:00 Duloxetine HCl (Cymbalta Dr) 30 mg BID PO Last administered on 06/25/16 21:08; Start 06/16/16 at 21:00 Fentanyl (Duragesic 50 Mcg Patch.72 Hr) 1 patch Q3D TD Last administered on 17:40; Start 06/16/16 at 17:00; Stop 06/22/16 at 16:00; Status DC Gabapentin (Neurontin) 300 mg BID PO Last administered on 06/25/16 21:07; Start 06/16/16 at 21:00 Insulin Detemir (Levemir Inj) 20 units Q12HR SQ ; Start 06/16/16 at 21:00; Stop 06/16/16 at 21:00; Status DC Isosorbide Dinitrate (Isordil) 5 mg TIDAC PO Last administered on 06/26/16 05: 36; Start 06/16/16 at 17:00 Liothyronine Sodium (Cytomel) 5 mcg DAILY PO Last administered on 06/25/16 09: 07; Start 06/17/16 at 09:00 Lactobacillus Acidophilus (Lactinex) 1 tab TID PO Last administered on 18:46; Start 06/16/16 at 18:00 Levothyroxine Sodium (Synthroid) 150 mcg DAILY@06 PO Last administered on 05:35; Start 06/17/16 at 06:00 Miscellaneous Information 1 Q3D T-DERMAL Last administered on 06/22/16 15:34; Start 06/19/16 at 17:00; Stop 06/23/16 at 21:04; Status DC Ondansetron HCl (Zofran Inj) 4 mg Q8HR PRN IV PUSH NAUSEA; Start 06/16/16 at 16 :00 Acetaminophen (Tylenol) 650 mg Q4H PRN PO FEVER; Start 06/16/16 at 16:00; Stop 06/23/16 at 17:05; Status DC Acetaminophen/ Hydrocodone Bitart ([place] 5-325 Mg) 1 tab Q4H PRN PO PAIN > 5 Last administered on 06/23/16 08:33; Start 06/16/16 at 16:00; Stop 06/23/16 at 17:07; Status DC Furosemide (Lasix Inj) 20 mg DAILY IV PUSH Last administered on 06/25/16 09:07 ; Start 06/17/16 at 09:00 Levothyroxine Sodium 25 mcg 25 mcg DAILY@06 PO Last administered on 06/26/16 05 :35; Start 06/17/16 at 06:00 Vancomycin HCl/ Sodium Chloride (Vancomycin Inj/ NS 500 ml Inj) 514 ml @ 250 mls/hr Q24H IV Last administered on 06/18/16 16:40; Start 06/16/16 at 17:00; Stop 06/18/16 at 19:35; Status DC Miscellaneous Information SPECIFIC LAB TO BE ... ONCE ONCE XX ; Start at 16:45; Stop 06/19/16 at 16:46; Status Cancel Piperacillin Sod/ Tazobactam Sod (Zosyn 3.375 Gm Premix) 50 ml @ 100 mls/hr Q6H IV Last administered on 06/26/16 02:25; Start 06/16/16 at 21:00 Insulin Detemir (Levemir Inj) 20 units HS SQ Last administered on 06/25/16 21: 09; Start 06/16/16 at 21:00 Losartan Potassium (Cozaar) 100 mg DAILY PO Last administered on 06/25/16 09:07 ; Start 06/17/16 at 09:00 Hydromorphone HCl (Dilaudid Pf Inj) 0.5 mg ONCE ONCE SQ ; Start 06/18/16 at 14: 00; Stop 06/18/16 at 14:01; Status Cancel Hydromorphone HCl (Dilaudid Pf Inj) 0.5 mg NOW ONCE IV Last administered on 14:45; Start 06/18/16 at 14:45; Stop 06/18/16 at 14:46; Status DC Fentanyl (Duragesic 25 Mcg Patch.72 Hr) 1 patch Q3D TD Last administered on 15:34; Start 06/22/16 at 17:00 Miscellaneous Information 1 Q3D T-DERMAL ; Start 06/24/16 at 09:45; Stop at 09:45; Status DC Haloperidol (Haldol) 2 mg HS PO Last administered on 06/24/16 22:22; Start at 21:00 Prednisone (Deltasone) 50 mg ONCE ONCE PO Last administered on 06/23/16 00:14 ; Start 06/23/16 at 01:00; Stop 06/23/16 at 01:01; Status DC Prednisone (Deltasone) 50 mg ONCE ONCE PO Last administered on 06/23/16 05:52 ; Start 06/23/16 at 07:00; Stop 06/23/16 at 07:01; Status DC Prednisone (Deltasone) 50 mg ONCE ONCE PO Last administered on 06/23/16 12:54 ; Start 06/23/16 at 13:00; Stop 06/23/16 at 13:01; Status DC Diphenhydramine HCl 50 mg 50 mg ONCE ONCE PO Last administered on 06/23/16 12 :54; Start 06/23/16 at 13:00; Stop 06/23/16 at 13:01; Status DC Potassium Chloride/Sodium Chloride (NS + KCl 20 Meq Inj) 1,000 ml @ 84 mls/hr [id number] IV Last administered on 06/26/16 01:37; Start 06/23/16 at 00:00 Heparin Sodium (Porcine) (Heparin Inj) 10,000 units STK-MED ONCE .ROUTE Last administered on 06/23/16 15:43; Start 06/23/16 at 14:35; Stop 06/23/16 at 14:36 ; Status DC Heparin Sodium (Porcine) (Heparin Inj) 10,000 units STK-MED ONCE .ROUTE ; Start 06/23/16 at 14:40; Stop 06/23/16 at 14:41; Status DC Fentanyl Citrate (fentaNYL INJ) 250 mcg STK-MED ONCE .ROUTE ; Start 06/23/16 at 14:47; Stop 06/23/16 at 14:48; Status DC Morphine Sulfate (Morphine Inj) 4 mg STK-MED ONCE .ROUTE ; Start 06/23/16 at 14: 47; Stop 06/23/16 at 14:48; Status DC Famotidine (Pepcid Inj) 20 mg STK-MED ONCE .ROUTE ; Start 06/23/16 at 14:50; Stop 06/23/16 at 14:51; Status DC Diphenhydramine HCl (Benadryl Inj) 50 mg STK-MED ONCE .ROUTE ; Start 06/23/16 at 14:51; Stop 06/23/16 at 14:52; Status DC Methylprednisolone Sodium Succinate (SoluMEDROL INJ) 125 mg STK-MED ONCE .ROUTE ; Start 06/23/16 at 14:56; Stop 06/23/16 at 14:57; Status DC Iohexol (OMNIPAQUE 300 INJ (Rad CT)) 100 ml STK-MED ONCE OTHER Last administered on 06/23/16 15:43; Start 06/23/16 at 15:43; Stop 06/23/16 at 15:48 ; Status DC Aspirin (Ecotrin Ec) 325 mg DAILY PO Last administered on 06/25/16 09:07; Start 06/24/16 at 09:00 Acetaminophen (Tylenol) 650 mg Q4H PRN PO TEMPERATURE > 101 F; Start 06/23/16 at 17:00 Magnesium Hydroxide (Milk Of Magnesia Liq) 30 ml DAILY PRN PO CONSTIPATION; Start 06/23/16 at 17:00 Oxycodone/ Acetaminophen (Percocet 5-325 Mg) 1 tab Q4H PRN PO PAIN SCALE 1 TO 5; Start 06/23/16 at 17:00 Oxycodone/ Acetaminophen (Percocet 10-325 Mg) 1 tab Q4H PRN PO PAIN SCALE 6 TO 10 Last administered on 06/25/16 09:17; Start 06/23/16 at 17:00 Morphine Sulfate (Morphine Inj) 4 mg Q4H PRN IV PUSH BREAKTHROUGH PAIN Last administered on 06/24/16 13:16; Start 06/23/16 at 17:00 Miscellaneous Information (Post-op Orders (for Pharmacy)) STAT ONCE OTHER ; Start 06/23/16 at 17:00; Stop 06/23/16 at 17:03; Status DC Insulin Human Regular (NovoLIN R SUPPLEMENTAL SCALE) 1 Q6HR SQ Last administered on 06/26/16 05:36; Start 06/23/16 at 18:00 Dextrose (D50w (Vial) Inj) 25 ml UNSCH PRN IV PUSH HYPOGLYCEMIA-SEE COMMENTS; Start 06/23/16 at 17:00 Glucagon (Glucagon Inj) 1 mg UNSCH PRN OTHER HYPOGLYCEMIA-SEE COMMENTS; Start 06/23/16 at 17:00 Miscellaneous Information ALL NURSING DEPARTME... UNSCH PRN XX SEE LABEL COMMENTS; Start 06/23/16 at 16:59; Stop 06/24/16 at 16:58; Status DC Miscellaneous Information 1 Q3D T-DERMAL Last administered on 06/25/16 17:00; Start 06/25/16 at 17:00 Propofol (Diprivan 200 Mg/20 ml Inj) 200 mg STK-MED ONCE IV ; Start 06/23/16 at 12:01; Stop 06/24/16 at 12:01; Status DC Neostigmine Methylsulfate (Prostigmin Inj) 3 mg STK-MED ONCE IV ; Start at 12:01; Stop 06/24/16 at 12:01; Status DC Ondansetron HCl (Zofran Inj) 4 mg STK-MED ONCE IV PUSH ; Start 06/23/16 at 12:01 ; Stop 06/24/16 at 12:01; Status DC A/P Assessment and Plan - cellulitis of both legs with bilateral lower extremity wounds with history of PVD s/p Aortogram w/ B LE angiogram/L SFA 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 -confusional episode with reported hallucinations-- neurology and psych consulted. decreased the dose of Fentanyl patch . will consider stopping percocet if confusional episodes recur. -hyponatremia; seems to be chronic- asymptomatic- improved. -anemia of chronic disease- H/H fairly stable.will monitor -diabetes mellitus; resumed long acting insulin- accu-check with SSI -cardiomyopathy; resumed BB, nitrate and diuretic -chronic renal insufficiency; stable- will monitor the renal function for now -hypothyroidism; resumed home meds -DVT prophylaxis;will start chemical prophylaxis when ok with vascular surgery Conrad Clancy MD Jun 26, 2016 08:42
[2016-06-26] MEDS: GABAPENTIN 300 MG CAP PO SCH ×2 (10:08→22:11)
[2016-06-26] MEDS: FUROSEMIDE 20 MG/2 ML VIAL IV PUSH SCH (10:08)
[2016-06-26] MEDS: LOSARTAN 50 MG TAB PO SCH (10:08)
[2016-06-26] MEDS: LIOTHYRONINE SODIUM 5 MCG TAB PO SCH (10:08)
[2016-06-26] MEDS: LACTOBACILLUS ACIDOPHILUS TAB PO SCH ×3 (10:08→18:48)
[2016-06-26] MEDS: DULoxetine HCl DR 30 MG CAP PO SCH ×2 (10:09→22:11)
[2016-06-26] MEDS: CARVEDILOL 12.5 MG TAB PO SCH ×2 (10:09→22:11)
[2016-06-26] MEDS: buPROPion HCL 150 MG SUSTAINED RELEASE TAB PO SCH ×2 (10:09→22:11)
[2016-06-26] MEDS: oxyCODONE/ACETAMINOPHEN 10 MG/325 MG TAB PO PRN ×4 (10:10→22:11)
[2016-06-26] MEDS: ASPIRIN EC 325 MG TABEC PO SCH (10:52)
[2016-06-26 12:00] VITALS: BP 155/71; PULSE 72; RESP 22; TEMP 98; O2SAT 98
--- NOTE | 2016-06-26 13:32 | PD.VS.PN ---
Subjective Subjective/Hospital Course Mrs. Lemos is a 61 y/o female, known to me from previous admission, with history of cellulitis of legs, PVD, diabetes and cardiomyopathy She has presented to ER with worsening pain and erythema over both legs Today Pt sitting in chair Alert in no acute distress Dressing changed at present time Pt has no complaints today Objective Vitals/I&O Date Time Temp Pulse Resp B/P Pulse Ox O2 Delivery O2 Flow Rate FiO2 06/26/16 04:20 98.3 74 18 145/66 95 06/25/16 23:34 98.3 70 18 156/68 96 06/25/16 20:50 98.0 80 18 142/68 100 06/25/16 20:00 Room Air 2.00 06/25/16 16:00 97.5 69 16 160/90 97 Automatic Cuff 06/26/16 06/26/16 06/26/16 07:00 15:00 23:00 Intake Total 200 ml Output Total 0 ml Balance 200 ml Physical Exam GENERAL: A&O X 3, Sitting in chair in NAD SKIN: Warm and dry. B LE desquamated wounds with exposed sub q tissue Laboratory Laboratory Tests Test 06/25/16 19:30 White Blood Count 11.0 Red Blood Count 3.86 Hemoglobin 9.2 Hematocrit 29.9 Mean Corpuscular Volume 77.6 Mean Corpuscular Hemoglobin 23.8 Mean Corpuscular Hemoglobin 30.7 Concent Red Cell Distribution Width 16.2 Platelet Count 560 Mean Platelet Volume 6.6 Neutrophils (%) (Auto) 72.4 Lymphocytes (%) (Auto) 18.2 Monocytes (%) (Auto) 7.8 Eosinophils (%) (Auto) 1.3 Basophils (%) (Auto) 0.3 Neutrophils # (Auto) 8.0 Lymphocytes # (Auto) 2.0 Monocytes # (Auto) 0.9 Eosinophils # (Auto) 0.1 Basophils # (Auto) 0.0 CBC Comment AUTO DIFF Differential Total Cells 100 Counted Neutrophils % (Manual) 67 Band Neutrophils % 1 Lymphocytes % 20 Monocytes % 8 Eosinophils % 3 Neutrophils # (Manual) 7.6 Promyelocytes 1 Differential Comment FINAL DIFF MANUAL Platelet Estimate HIGH Platelet Morphology Comment NORMAL Red Cell Morphology Comment NORMAL Sodium Level 135 Potassium Level 4.3 Chloride Level 96 Carbon Dioxide Level 31.4 Anion Gap 8 Blood Urea Nitrogen 20 Creatinine 1.16 Estimat Glomerular Filtration 47 Rate Random Glucose 209 Calcium Level 8.7 Assessment and Plan Plan Multifactorial LE wounds, chronic in a patient who is minimally ambulatory. 1. Wound care: Continue calcium alginate Ag and compression toes to thighs 2. Elevation of BLE Nasrin Carl Jun 26, 2016 13:32
[2016-06-26 16:00] VITALS: BP 150/65; PULSE 71; RESP 20; TEMP 98.5; O2SAT 98
[2016-06-26] MEDS: INSULIN DETEMIR 100 UNITS/ML VIAL SQ SCH (20:59)
[2016-06-26] MEDS: HALOPERIDOL 2 MG TAB PO SCH (21:00)
[2016-06-26 21:15] VITALS: BP 151/79; PULSE 88; RESP 18; TEMP 98.3; O2SAT 96
[2016-06-27 00:03] VITALS: BP 132/69; PULSE 70; RESP 18; TEMP 98; O2SAT 97
[2016-06-27] MEDS: INSULIN NovoLIN REGULAR SUPPLEMENTAL SCALE SQ SCH ×5 (00:29→23:51)
[2016-06-27] MEDS: oxyCODONE/ACETAMINOPHEN 10 MG/325 MG TAB PO PRN ×5 (02:15→18:33)
[2016-06-27] MEDS: PIPERACIL-TAZO 3.375 GM PREMIX 50 ML IV SCH ×4 (03:00→23:10)
[2016-06-27 05:19] VITALS: BP 156/77; PULSE 73; RESP 18; TEMP 97.3; O2SAT 98
[2016-06-27] MEDS: LEVOTHYROXINE SODIUM 25 MCG TAB PO SCH (06:56)
[2016-06-27] MEDS: LEVOTHYROXINE SODIUM 150 MCG TAB PO SCH (06:56)
[2016-06-27 08:18] VITALS: BP 130/79; PULSE 68; RESP 18; TEMP 97.2; O2SAT 99
[2016-06-27] MEDS: ASPIRIN EC 325 MG TABEC PO SCH (09:24)
[2016-06-27] MEDS: LIOTHYRONINE SODIUM 5 MCG TAB PO SCH (09:24)
[2016-06-27] MEDS: ISOSORBIDE DINITRATE 5 MG TAB PO SCH ×3 (09:24→16:44)
[2016-06-27] MEDS: DULoxetine HCl DR 30 MG CAP PO SCH ×2 (09:24→21:32)
[2016-06-27] MEDS: LOSARTAN 50 MG TAB PO SCH (09:24)
[2016-06-27] MEDS: buPROPion HCL 150 MG SUSTAINED RELEASE TAB PO SCH ×2 (09:24→21:32)
[2016-06-27] MEDS: GABAPENTIN 300 MG CAP PO SCH ×2 (09:24→21:32)
[2016-06-27] MEDS: CARVEDILOL 12.5 MG TAB PO SCH ×2 (09:24→21:32)
[2016-06-27] MEDS: LACTOBACILLUS ACIDOPHILUS TAB PO SCH ×3 (09:25→16:44)
[2016-06-27] MEDS: FUROSEMIDE 20 MG/2 ML VIAL IV PUSH SCH (09:25)
--- NOTE | 2016-06-27 10:10 | HHI.PR ---
Subjective Remarks in no distress. afebrile. pain is fairly controlled. no new complaints. Objective Vitals Vital Signs Date Time Temp Pulse Resp B/P Pulse Ox O2 Delivery O2 Flow Rate FiO2 06/27/16 08:18 97.2 68 18 130/79 99 06/27/16 05:19 97.3 73 18 156/77 98 06/27/16 00:03 98.0 70 18 132/69 97 06/26/16 21:15 98.3 88 18 151/79 96 06/26/16 21:02 Room Air 06/26/16 16:00 98.5 71 20 150/65 98 06/26/16 12:00 98.0 72 22 155/71 98 Manual Cuff/Auscultation I/O 06/26/16 06/26/16 06/26/16 06/27/16 06/27/16 06/27/16 07:00 15:00 23:00 07:00 15:00 23:00 Intake Total 200 ml 720 ml 300 ml 240 ml Output Total 0 ml 1200 ml 450 ml 0 ml Balance 200 ml -480 ml -150 ml 240 ml Intake Oral 200 ml 720 ml 300 ml 240 ml Output Urine Total 1200 ml 450 ml 0 ml Stool Total 0 ml # Voids 6 1 # Bowel Movements 1 1 0 Result Diagram: 06/25/16 1930 06/25/16 193 Imaging Last Impressions Head CT 06/20/16 0000 Signed Impressions: Service Date/Time: Monday, June 20, 2016 17:52 - CONCLUSION: Slight atrophic and small vessel ischemic changes without any evidence for acute hemorrhage or mass effect. Smith Boateng MD Chest X-Ray 06/16/16 1430 Signed Impressions: Service Date/Time: Thursday, June 16, 2016 14:53 - CONCLUSION: 1. No acute cardiopulmonary findings. Jose Rogers MD Objective Remarks GENERAL: This is a well-nourished, well-developed patient, in no apparent distress. CARDIOVASCULAR: Regular rate and regular rhythm without murmurs, gallops, or rubs. RESPIRATORY: Clear to auscultation. Breath sounds equal bilaterally. No wheezes , rales, or rhonchi. GASTROINTESTINAL: Abdomen soft, non-tender, nondistended. Normal, active bowel sounds MUSCULOSKELETAL: both legs covered with clean dressing. NEURO: Alert & Oriented x4 to person, place, time, situation. 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 Angioseal Debridement of B LE wounds Medications and IVs Current Medications Piperacillin Sod/ Tazobactam Sod 100 ml @ 200 mls/hr ONCE STAT IV Last administered on 06/16/16 14:55; Start 06/16/16 at 14:30; Stop 06/16/16 at 14:59 ; Status DC Vancomycin HCl/ Sodium Chloride (Vancomycin Inj/ NS 250 ml Inj) 250 ml @ 250 mls/hr ONCE STAT IV ; Start 06/16/16 at 14:30; Stop 06/16/16 at 15:29; Status Cancel Lorazepam 1 mg 1 mg ONCE ONCE IV PUSH ; Start 06/16/16 at 15:00; Stop 06/16/16 at 15:02; Status DC Sodium Chloride (NS 1000 ml Inj) 1,000 ml @ 999 mls/hr BOLUS ONCE IV Last administered on 06/16/16 15:30; Start 06/16/16 at 15:00; Stop 06/16/16 at 16:00 ; Status DC Hydromorphone HCl (Dilaudid Pf Inj) 1 mg ONCE ONCE IV PUSH Last administered on 06/16/16 15:31; Start 06/16/16 at 15:15; Stop 06/16/16 at 15:16; Status DC Ondansetron HCl (Zofran Inj) 4 mg ONCE ONCE IV PUSH Last administered on 15:31; Start 06/16/16 at 15:15; Stop 06/16/16 at 15:16; Status DC Dextrose (D50w (Vial) Inj) 25 ml UNSCH PRN IV PUSH HYPOGLYCEMIA-SEE COMMENTS; Start 06/16/16 at 16:00; Stop 06/23/16 at 17:06; Status DC Glucagon (Glucagon Inj) 1 mg UNSCH PRN OTHER HYPOGLYCEMIA-SEE COMMENTS; Start 06/16/16 at 16:00; Stop 06/23/16 at 17:06; Status DC Insulin Aspart 1 1 ACHS SLIDING SCALE SQ Last administered on 06/23/16 05:52 ; Start 06/16/16 at 16:00; Stop 06/23/16 at 17:06; Status DC Pharmacy Profile Note 0 ml @ 0 mls/hr UNSCH OTHER ; Start 06/16/16 at 16:00; Stop 06/18/16 at 19:34; Status DC Pharmacy Profile Note ([facility]) 0 ml @ 0 mls/hr UNSCH OTHER ; Start 06/16/16 at 16:00 Bupropion HCl (Wellbutrin Sr) 150 mg Q12HR PO Last administered on 06/27/16 09: 24; Start 06/16/16 at 21:00 Carvedilol (Coreg) 25 mg BID PO Last administered on 06/27/16 09:24; Start at 21:00 Duloxetine HCl (Cymbalta Dr) 30 mg BID PO Last administered on 06/27/16 09:24; Start 06/16/16 at 21:00 Fentanyl (Duragesic 50 Mcg Patch.72 Hr) 1 patch Q3D TD Last administered on 17:40; Start 06/16/16 at 17:00; Stop 06/22/16 at 16:00; Status DC Gabapentin (Neurontin) 300 mg BID PO Last administered on 06/27/16 09:24; Start 06/16/16 at 21:00 Insulin Detemir (Levemir Inj) 20 units Q12HR SQ ; Start 06/16/16 at 21:00; Stop 06/16/16 at 21:00; Status DC Isosorbide Dinitrate (Isordil) 5 mg TIDAC PO Last administered on 06/27/16 09: 24; Start 06/16/16 at 17:00 Liothyronine Sodium (Cytomel) 5 mcg DAILY PO Last administered on 06/27/16 09: 24; Start 06/17/16 at 09:00 Lactobacillus Acidophilus (Lactinex) 1 tab TID PO Last administered on 09:25; Start 06/16/16 at 18:00 Levothyroxine Sodium (Synthroid) 150 mcg DAILY@06 PO Last administered on 06:56; Start 06/17/16 at 06:00 Miscellaneous Information 1 Q3D T-DERMAL Last administered on 06/22/16 15:34; Start 06/19/16 at 17:00; Stop 06/23/16 at 21:04; Status DC Ondansetron HCl (Zofran Inj) 4 mg Q8HR PRN IV PUSH NAUSEA; Start 06/16/16 at 16 :00 Acetaminophen (Tylenol) 650 mg Q4H PRN PO FEVER; Start 06/16/16 at 16:00; Stop 06/23/16 at 17:05; Status DC Acetaminophen/ Hydrocodone Bitart ([place] 5-325 Mg) 1 tab Q4H PRN PO PAIN > 5 Last administered on 06/23/16 08:33; Start 06/16/16 at 16:00; Stop 06/23/16 at 17:07; Status DC Furosemide (Lasix Inj) 20 mg DAILY IV PUSH Last administered on 06/27/16 09:25 ; Start 06/17/16 at 09:00 Levothyroxine Sodium 25 mcg 25 mcg DAILY@06 PO Last administered on 06/27/16 06 :56; Start 06/17/16 at 06:00 Vancomycin HCl/ Sodium Chloride (Vancomycin Inj/ NS 500 ml Inj) 514 ml @ 250 mls/hr Q24H IV Last administered on 06/18/16 16:40; Start 06/16/16 at 17:00; Stop 06/18/16 at 19:35; Status DC Miscellaneous Information SPECIFIC LAB TO BE [facility]... ONCE ONCE XX ; Start at 16:45; Stop 06/19/16 at 16:46; Status Cancel Piperacillin Sod/ Tazobactam Sod (Zosyn 3.375 Gm Premix) 50 ml @ 100 mls/hr Q6H IV Last administered on 06/27/16 09:24; Start 06/16/16 at 21:00 Insulin Detemir (Levemir Inj) 20 units HS SQ Last administered on 06/26/16 20: 59; Start 06/16/16 at 21:00 Losartan Potassium (Cozaar) 100 mg DAILY PO Last administered on 06/27/16 09:24 ; Start 06/17/16 at 09:00 Hydromorphone HCl (Dilaudid Pf Inj) 0.5 mg ONCE ONCE SQ ; Start 06/18/16 at 14: 00; Stop 06/18/16 at 14:01; Status Cancel Hydromorphone HCl (Dilaudid Pf Inj) 0.5 mg NOW ONCE IV Last administered on 14:45; Start 06/18/16 at 14:45; Stop 06/18/16 at 14:46; Status DC Fentanyl (Duragesic 25 Mcg Patch.72 Hr) 1 patch Q3D TD Last administered on 15:34; Start 06/22/16 at 17:00 Miscellaneous Information 1 Q3D T-DERMAL ; Start 06/24/16 at 09:45; Stop at 09:45; Status DC Haloperidol (Haldol) 2 mg HS PO Last administered on 06/24/16 22:22; Start at 21:00 Prednisone (Deltasone) 50 mg ONCE ONCE PO Last administered on 06/23/16 00:14 ; Start 06/23/16 at 01:00; Stop 06/23/16 at 01:01; Status DC Prednisone (Deltasone) 50 mg ONCE ONCE PO Last administered on 06/23/16 05:52 ; Start 06/23/16 at 07:00; Stop 06/23/16 at 07:01; Status DC Prednisone (Deltasone) 50 mg ONCE ONCE PO Last administered on 06/23/16 12:54 ; Start 06/23/16 at 13:00; Stop 06/23/16 at 13:01; Status DC Diphenhydramine HCl 50 mg 50 mg ONCE ONCE PO Last administered on 06/23/16 12 :54; Start 06/23/16 at 13:00; Stop 06/23/16 at 13:01; Status DC Potassium Chloride/Sodium Chloride (NS + KCl 20 Meq Inj) 1,000 ml @ 84 mls/hr [id number] IV Last administered on 06/26/16 11:25; Start 06/23/16 at 00:00 Heparin Sodium (Porcine) (Heparin Inj) 10,000 units STK-MED ONCE .ROUTE Last administered on 06/23/16 15:43; Start 06/23/16 at 14:35; Stop 06/23/16 at 14:36 ; Status DC Heparin Sodium (Porcine) (Heparin Inj) 10,000 units STK-MED ONCE .ROUTE ; Start 06/23/16 at 14:40; Stop 06/23/16 at 14:41; Status DC Fentanyl Citrate (fentaNYL INJ) 250 mcg STK-MED ONCE .ROUTE ; Start 06/23/16 at 14:47; Stop 06/23/16 at 14:48; Status DC Morphine Sulfate (Morphine Inj) 4 mg STK-MED ONCE .ROUTE ; Start 06/23/16 at 14: 47; Stop 06/23/16 at 14:48; Status DC Famotidine (Pepcid Inj) 20 mg STK-MED ONCE .ROUTE ; Start 06/23/16 at 14:50; Stop 06/23/16 at 14:51; Status DC Diphenhydramine HCl (Benadryl Inj) 50 mg STK-MED ONCE .ROUTE ; Start 06/23/16 at 14:51; Stop 06/23/16 at 14:52; Status DC Methylprednisolone Sodium Succinate (SoluMEDROL INJ) 125 mg STK-MED ONCE .ROUTE ; Start 06/23/16 at 14:56; Stop 06/23/16 at 14:57; Status DC Iohexol (OMNIPAQUE 300 INJ (Rad CT)) 100 ml STK-MED ONCE OTHER Last administered on 06/23/16 15:43; Start 06/23/16 at 15:43; Stop 06/23/16 at 15:48 ; Status DC Aspirin (Ecotrin Ec) 325 mg DAILY PO Last administered on 06/27/16 09:24; Start 06/24/16 at 09:00 Acetaminophen (Tylenol) 650 mg Q4H PRN PO TEMPERATURE > 101 F; Start 06/23/16 at 17:00 Magnesium Hydroxide (Milk Of Magnesia Liq) 30 ml DAILY PRN PO CONSTIPATION; Start 06/23/16 at 17:00 Oxycodone/ Acetaminophen (Percocet 5-325 Mg) 1 tab Q4H PRN PO PAIN SCALE 1 TO 5; Start 06/23/16 at 17:00 Oxycodone/ Acetaminophen (Percocet 10-325 Mg) 1 tab Q4H PRN PO PAIN SCALE 6 TO 10 Last administered on 06/27/16 06:57; Start 06/23/16 at 17:00 Morphine Sulfate (Morphine Inj) 4 mg Q4H PRN IV PUSH BREAKTHROUGH PAIN Last administered on 06/24/16 13:16; Start 06/23/16 at 17:00 Miscellaneous Information (Post-op Orders (for Pharmacy)) STAT ONCE OTHER ; Start 06/23/16 at 17:00; Stop 06/23/16 at 17:03; Status DC Insulin Human Regular (NovoLIN R SUPPLEMENTAL SCALE) 1 Q6HR SQ Last administered on 06/27/16 00:29; Start 06/23/16 at 18:00 Dextrose (D50w (Vial) Inj) 25 ml UNSCH PRN IV PUSH HYPOGLYCEMIA-SEE COMMENTS; Start 06/23/16 at 17:00 Glucagon (Glucagon Inj) 1 mg UNSCH PRN OTHER HYPOGLYCEMIA-SEE COMMENTS; Start 06/23/16 at 17:00 Miscellaneous Information ALL NURSING DEPARTME... UNSCH PRN XX SEE LABEL COMMENTS; Start 06/23/16 at 16:59; Stop 06/24/16 at 16:58; Status DC Miscellaneous Information 1 Q3D T-DERMAL Last administered on 06/25/16 17:00; Start 06/25/16 at 17:00 Propofol (Diprivan 200 Mg/20 ml Inj) 200 mg STK-MED ONCE IV ; Start 06/23/16 at 12:01; Stop 06/24/16 at 12:01; Status DC Neostigmine Methylsulfate (Prostigmin Inj) 3 mg STK-MED ONCE IV ; Start at 12:01; Stop 06/24/16 at 12:01; Status DC Ondansetron HCl (Zofran Inj) 4 mg STK-MED ONCE IV PUSH ; Start 06/23/16 at 12:01 ; Stop 06/24/16 at 12:01; Status DC A/P Assessment and Plan - cellulitis of both legs with bilateral lower extremity wounds with history of PVD s/p Aortogram w/ B LE angiogram/L [employer]FA [employer]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 -confusional episode with reported hallucinations-- neurology and psych consulted. decreased the dose of Fentanyl patch . will consider stopping percocet if confusional episodes recur. -hyponatremia; seems to be chronic- asymptomatic- improved. -anemia of chronic disease- H/H fairly stable.will monitor -diabetes mellitus; resumed long acting insulin- accu-check with SSI -cardiomyopathy; resumed BB, nitrate and diuretic -chronic renal insufficiency; stable- will monitor the renal function for now -hypothyroidism; resumed home meds -DVT prophylaxis;will start chemical prophylaxis when ok with vascular surgery Conrad Clancy MD Jun 27, 2016 10:10
[2016-06-27] MEDS: NS + KCL 20 MEQ INJ 1,000 ML IV SCH ×2 (11:00→23:10)
[2016-06-27] MEDS: MORPHINE SULFATE 4 MG/ML INJ IV PUSH PRN ×3 (12:30→23:10)
[2016-06-27 16:06] VITALS: BP 150/66; PULSE 78; RESP 18; TEMP 97.5; O2SAT 98
[2016-06-27 20:00] VITALS: BP 138/63; PULSE 79; RESP 16; TEMP 97.7; O2SAT 97
[2016-06-27] MEDS: INSULIN DETEMIR 100 UNITS/ML VIAL SQ SCH (21:00)
[2016-06-27] MEDS: HALOPERIDOL 2 MG TAB PO SCH (21:00)
[2016-06-28] VITALS: BP 134/51; PULSE 74; RESP 16; TEMP 97.8; O2SAT 98
[2016-06-28] MEDS: oxyCODONE/ACETAMINOPHEN 10 MG/325 MG TAB PO PRN ×3 (02:12→20:49)
[2016-06-28] MEDS: PIPERACIL-TAZO 3.375 GM PREMIX 50 ML IV SCH ×4 (03:00→20:50)
[2016-06-28 04:00] VITALS: BP 135/67; PULSE 75; RESP 16; TEMP 97.7; O2SAT 96
[2016-06-28] MEDS: INSULIN NovoLIN REGULAR SUPPLEMENTAL SCALE SQ SCH ×4 (05:31→23:19)
[2016-06-28] MEDS: LEVOTHYROXINE SODIUM 25 MCG TAB PO SCH (05:31)
[2016-06-28] MEDS: LEVOTHYROXINE SODIUM 150 MCG TAB PO SCH (05:31)
[2016-06-28] MEDS: LOSARTAN 50 MG TAB PO SCH (07:46)
[2016-06-28] MEDS: ASPIRIN EC 325 MG TABEC PO SCH (07:46)
[2016-06-28] MEDS: LIOTHYRONINE SODIUM 5 MCG TAB PO SCH (07:46)
[2016-06-28] MEDS: ISOSORBIDE DINITRATE 5 MG TAB PO SCH ×3 (07:46→16:56)
[2016-06-28] MEDS: buPROPion HCL 150 MG SUSTAINED RELEASE TAB PO SCH ×2 (07:47→20:49)
[2016-06-28] MEDS: GABAPENTIN 300 MG CAP PO SCH ×2 (07:47→20:49)
[2016-06-28] MEDS: FUROSEMIDE 20 MG/2 ML VIAL IV PUSH SCH (07:47)
[2016-06-28] MEDS: DULoxetine HCl DR 30 MG CAP PO SCH ×2 (07:47→20:49)
[2016-06-28] MEDS: CARVEDILOL 12.5 MG TAB PO SCH ×2 (07:47→20:50)
[2016-06-28] MEDS: LACTOBACILLUS ACIDOPHILUS TAB PO SCH ×3 (07:47→16:56)
[2016-06-28] MEDS: NS + KCL 20 MEQ INJ 1,000 ML IV SCH ×2 (07:54→22:17)
[2016-06-28 08:26] VITALS: BP 151/92; PULSE 96; RESP 18; TEMP 97.9; O2SAT 99
[2016-06-28 12:04] VITALS: BP 152/62; PULSE 64; RESP 18; TEMP 97.8; O2SAT 99
--- NOTE | 2016-06-28 12:22 | HHI.PR ---
Subjective Remarks overall doing fine. pain is controlled. no fever. no new complaints. Objective Vitals Vital Signs Date Time Temp Pulse Resp B/P Pulse Ox O2 Delivery O2 Flow Rate FiO2 06/28/16 12:04 97.8 64 18 152/62 99 06/28/16 08:52 Room Air 06/28/16 08:26 97.9 96 18 151/92 99 06/28/16 04:00 97.7 75 16 135/67 96 06/28/16 00:00 97.8 74 16 134/51 98 06/27/16 21:36 Room Air 06/27/16 20:00 97.7 79 16 138/63 97 06/27/16 16:06 97.5 78 18 150/66 98 I/O 06/27/16 06/27/16 06/27/16 06/28/16 06/28/16 06/28/16 07:00 15:00 23:00 07:00 15:00 23:00 Intake Total 240 ml 720 ml 240 ml 360 ml Output Total 0 ml Balance 240 ml 720 ml 240 ml 360 ml Intake Oral 240 ml 720 ml 240 ml 360 ml Output Urine Total 0 ml # Voids 2 2 1 # Bowel Movements 0 1 Result Diagram: 06/25/16 1930 06/25/16 1930 Imaging Last Impressions Head CT 06/20/16 0000 Signed Impressions: Service Date/Time: Monday, June 20, 2016 17:52 - CONCLUSION: Slight atrophic and small vessel ischemic changes without any evidence for acute hemorrhage or mass effect. Smith Boateng MD Chest X-Ray 06/16/16 1430 Signed Impressions: Service Date/Time: Thursday, June 16, 2016 14:53 - CONCLUSION: 1. No acute cardiopulmonary findings. Jose Rogers MD Objective Remarks GENERAL: This is a well-nourished, well-developed patient, in no apparent distress. CARDIOVASCULAR: Regular rate and regular rhythm without murmurs, gallops, or rubs. RESPIRATORY: Clear to auscultation. Breath sounds equal bilaterally. No wheezes , rales, or rhonchi. GASTROINTESTINAL: Abdomen soft, non-tender, nondistended. Normal, active bowel sounds MUSCULOSKELETAL: both legs covered with clean dressing. NEURO: Alert & Oriented x4 to person, place, time, situation. 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 Angioseal Debridement of B LE wounds Medications and IVs Current Medications Piperacillin Sod/ Tazobactam Sod 100 ml @ 200 mls/hr ONCE STAT IV Last administered on 06/16/16 14:55; Start 06/16/16 at 14:30; Stop 06/16/16 at 14:59 ; Status DC Vancomycin HCl/ Sodium Chloride (Vancomycin Inj/ NS 250 ml Inj) 250 ml @ 250 mls/hr ONCE STAT IV ; Start 06/16/16 at 14:30; Stop 06/16/16 at 15:29; Status Cancel Lorazepam 1 mg 1 mg ONCE ONCE IV PUSH ; Start 06/16/16 at 15:00; Stop 06/16/16 at 15:02; Status DC Sodium Chloride (NS 1000 ml Inj) 1,000 ml @ 999 mls/hr BOLUS ONCE IV Last administered on 06/16/16 15:30; Start 06/16/16 at 15:00; Stop 06/16/16 at 16:00 ; Status DC Hydromorphone HCl (Dilaudid Pf Inj) 1 mg ONCE ONCE IV PUSH Last administered on 06/16/16 15:31; Start 06/16/16 at 15:15; Stop 06/16/16 at 15:16; Status DC Ondansetron HCl (Zofran Inj) 4 mg ONCE ONCE IV PUSH Last administered on 15:31; Start 06/16/16 at 15:15; Stop 06/16/16 at 15:16; Status DC Dextrose (D50w (Vial) Inj) 25 ml UNSCH PRN IV PUSH HYPOGLYCEMIA-SEE COMMENTS; Start 06/16/16 at 16:00; Stop 06/23/16 at 17:06; Status DC Glucagon (Glucagon Inj) 1 mg UNSCH PRN OTHER HYPOGLYCEMIA-SEE COMMENTS; Start 06/16/16 at 16:00; Stop 06/23/16 at 17:06; Status DC Insulin Aspart 1 1 ACHS SLIDING SCALE SQ Last administered on 06/23/16 05:52 ; Start 06/16/16 at 16:00; Stop 06/23/16 at 17:06; Status DC Pharmacy Profile Note 0 ml @ 0 mls/hr UNSCH OTHER ; Start 06/16/16 at 16:00; Stop 06/18/16 at 19:34; Status DC Pharmacy Profile Note ([facility]) 0 ml @ 0 mls/hr UNSCH OTHER ; Start 06/16/16 at 16:00 Bupropion HCl (Wellbutrin Sr) 150 mg Q12HR PO Last administered on 06/28/16 07: 47; Start 06/16/16 at 21:00 Carvedilol (Coreg) 25 mg BID PO Last administered on 06/28/16 07:47; Start at 21:00 Duloxetine HCl (Cymbalta Dr) 30 mg BID PO Last administered on 06/28/16 07:47; Start 06/16/16 at 21:00 Fentanyl (Duragesic 50 Mcg Patch.72 Hr) 1 patch Q3D TD Last administered on 17:40; Start 06/16/16 at 17:00; Stop 06/22/16 at 16:00; Status DC Gabapentin (Neurontin) 300 mg BID PO Last administered on 06/28/16 07:47; Start 06/16/16 at 21:00 Insulin Detemir (Levemir Inj) 20 units Q12HR SQ ; Start 06/16/16 at 21:00; Stop 06/16/16 at 21:00; Status DC Isosorbide Dinitrate (Isordil) 5 mg TIDAC PO Last administered on 06/28/16 11: 58; Start 06/16/16 at 17:00 Liothyronine Sodium (Cytomel) 5 mcg DAILY PO Last administered on 06/28/16 07: 46; Start 06/17/16 at 09:00 Lactobacillus Acidophilus (Lactinex) 1 tab TID PO Last administered on 11:58; Start 06/16/16 at 18:00 Levothyroxine Sodium (Synthroid) 150 mcg DAILY@06 PO Last administered on 05:31; Start 06/17/16 at 06:00 Miscellaneous Information 1 Q3D T-DERMAL Last administered on 06/22/16 15:34; Start 06/19/16 at 17:00; Stop 06/23/16 at 21:04; Status DC Ondansetron HCl (Zofran Inj) 4 mg Q8HR PRN IV PUSH NAUSEA; Start 06/16/16 at 16 :00 Acetaminophen (Tylenol) 650 mg Q4H PRN PO FEVER; Start 06/16/16 at 16:00; Stop 06/23/16 at 17:05; Status DC Acetaminophen/ Hydrocodone Bitart ([place] 5-325 Mg) 1 tab Q4H PRN PO PAIN > 5 Last administered on 06/23/16 08:33; Start 06/16/16 at 16:00; Stop 06/23/16 at 17:07; Status DC Furosemide (Lasix Inj) 20 mg DAILY IV PUSH Last administered on 06/28/16 07:47 ; Start 06/17/16 at 09:00 Levothyroxine Sodium 25 mcg 25 mcg DAILY@06 PO Last administered on 06/28/16 05 :31; Start 06/17/16 at 06:00 Vancomycin HCl/ Sodium Chloride (Vancomycin Inj/ NS 500 ml Inj) 514 ml @ 250 mls/hr Q24H IV Last administered on 06/18/16 16:40; Start 06/16/16 at 17:00; Stop 06/18/16 at 19:35; Status DC Miscellaneous Information SPECIFIC LAB TO BE [facility]... ONCE ONCE XX ; Start at 16:45; Stop 06/19/16 at 16:46; Status Cancel Piperacillin Sod/ Tazobactam Sod (Zosyn 3.375 Gm Premix) 50 ml @ 100 mls/hr Q6H IV Last administered on 06/28/16 07:46; Start 06/16/16 at 21:00 Insulin Detemir (Levemir Inj) 20 units HS SQ Last administered on 06/27/16 21: 00; Start 06/16/16 at 21:00 Losartan Potassium (Cozaar) 100 mg DAILY PO Last administered on 06/28/16 07:46 ; Start 06/17/16 at 09:00 Hydromorphone HCl (Dilaudid Pf Inj) 0.5 mg ONCE ONCE SQ ; Start 06/18/16 at 14: 00; Stop 06/18/16 at 14:01; Status Cancel Hydromorphone HCl (Dilaudid Pf Inj) 0.5 mg NOW ONCE IV Last administered on 14:45; Start 06/18/16 at 14:45; Stop 06/18/16 at 14:46; Status DC Fentanyl (Duragesic 25 Mcg Patch.72 Hr) 1 patch Q3D TD Last administered on 15:34; Start 06/22/16 at 17:00 Miscellaneous Information 1 Q3D T-DERMAL ; Start 06/24/16 at 09:45; Stop at 09:45; Status DC Haloperidol (Haldol) 2 mg HS PO Last administered on 06/24/16 22:22; Start at 21:00 Prednisone (Deltasone) 50 mg ONCE ONCE PO Last administered on 06/23/16 00:14 ; Start 06/23/16 at 01:00; Stop 06/23/16 at 01:01; Status DC Prednisone (Deltasone) 50 mg ONCE ONCE PO Last administered on 06/23/16 05:52 ; Start 06/23/16 at 07:00; Stop 06/23/16 at 07:01; Status DC Prednisone (Deltasone) 50 mg ONCE ONCE PO Last administered on 06/23/16 12:54 ; Start 06/23/16 at 13:00; Stop 06/23/16 at 13:01; Status DC Diphenhydramine HCl 50 mg 50 mg ONCE ONCE PO Last administered on 06/23/16 12 :54; Start 06/23/16 at 13:00; Stop 06/23/16 at 13:01; Status DC Potassium Chloride/Sodium Chloride (NS + KCl 20 Meq Inj) 1,000 ml @ 84 mls/hr [id number] IV Last administered on 06/28/16 07:54; Start 06/23/16 at 00:00 Heparin Sodium (Porcine) (Heparin Inj) 10,000 units STK-MED ONCE .ROUTE Last administered on 06/23/16 15:43; Start 06/23/16 at 14:35; Stop 06/23/16 at 14:36 ; Status DC Heparin Sodium (Porcine) (Heparin Inj) 10,000 units STK-MED ONCE .ROUTE ; Start 06/23/16 at 14:40; Stop 06/23/16 at 14:41; Status DC Fentanyl Citrate (fentaNYL INJ) 250 mcg STK-MED ONCE .ROUTE ; Start 06/23/16 at 14:47; Stop 06/23/16 at 14:48; Status DC Morphine Sulfate (Morphine Inj) 4 mg STK-MED ONCE .ROUTE ; Start 06/23/16 at 14: 47; Stop 06/23/16 at 14:48; Status DC Famotidine (Pepcid Inj) 20 mg STK-MED ONCE .ROUTE ; Start 06/23/16 at 14:50; Stop 06/23/16 at 14:51; Status DC Diphenhydramine HCl (Benadryl Inj) 50 mg STK-MED ONCE .ROUTE ; Start 06/23/16 at 14:51; Stop 06/23/16 at 14:52; Status DC Methylprednisolone Sodium Succinate (SoluMEDROL INJ) 125 mg STK-MED ONCE .ROUTE ; Start 06/23/16 at 14:56; Stop 06/23/16 at 14:57; Status DC Iohexol (OMNIPAQUE 300 INJ (Rad CT)) 100 ml STK-MED ONCE OTHER Last administered on 06/23/16 15:43; Start 06/23/16 at 15:43; Stop 06/23/16 at 15:48 ; Status DC Aspirin (Ecotrin Ec) 325 mg DAILY PO Last administered on 06/28/16 07:46; Start 06/24/16 at 09:00 Acetaminophen (Tylenol) 650 mg Q4H PRN PO TEMPERATURE > 101 F; Start 06/23/16 at 17:00 Magnesium Hydroxide (Milk Of Magnesia Liq) 30 ml DAILY PRN PO CONSTIPATION; Start 06/23/16 at 17:00 Oxycodone/ Acetaminophen (Percocet 5-325 Mg) 1 tab Q4H PRN PO PAIN SCALE 1 TO 5; Start 06/23/16 at 17:00 Oxycodone/ Acetaminophen (Percocet 10-325 Mg) 1 tab Q4H PRN PO PAIN SCALE 6 TO 10 Last administered on 06/28/16 02:12; Start 06/23/16 at 17:00 Morphine Sulfate (Morphine Inj) 4 mg Q4H PRN IV PUSH BREAKTHROUGH PAIN Last administered on 06/27/16 23:10; Start 06/23/16 at 17:00 Miscellaneous Information (Post-op Orders (for Pharmacy)) STAT ONCE OTHER ; Start 06/23/16 at 17:00; Stop 06/23/16 at 17:03; Status DC Insulin Human Regular (NovoLIN R SUPPLEMENTAL SCALE) 1 Q6HR SQ Last administered on 06/28/16 11:58; Start 06/23/16 at 18:00 Dextrose (D50w (Vial) Inj) 25 ml UNSCH PRN IV PUSH HYPOGLYCEMIA-SEE COMMENTS; Start 06/23/16 at 17:00 Glucagon (Glucagon Inj) 1 mg UNSCH PRN OTHER HYPOGLYCEMIA-SEE COMMENTS; Start 06/23/16 at 17:00 Miscellaneous Information ALL NURSING DEPARTME... UNSCH PRN XX SEE LABEL COMMENTS; Start 06/23/16 at 16:59; Stop 06/24/16 at 16:58; Status DC Miscellaneous Information 1 Q3D T-DERMAL Last administered on 06/25/16 17:00; Start 06/25/16 at 17:00 Propofol (Diprivan 200 Mg/20 ml Inj) 200 mg STK-MED ONCE IV ; Start 06/23/16 at 12:01; Stop 06/24/16 at 12:01; Status DC Neostigmine Methylsulfate (Prostigmin Inj) 3 mg STK-MED ONCE IV ; Start at 12:01; Stop 06/24/16 at 12:01; Status DC Ondansetron HCl (Zofran Inj) 4 mg STK-MED ONCE IV PUSH ; Start 06/23/16 at 12:01 ; Stop 06/24/16 at 12:01; Status DC A/P Assessment and Plan - cellulitis of both legs with bilateral lower extremity wounds with history of PVD s/p Aortogram w/ B LE angiogram/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 -confusional episode with reported hallucinations- -- now has resolved- neurology and psych consulted. decreased the dose of Fentanyl patch . -hyponatremia; seems to be chronic- asymptomatic- improved. -anemia of chronic disease- H/H fairly stable.will monitor -diabetes mellitus; resumed long acting insulin- accu-check with SSI -cardiomyopathy; resumed BB, nitrate and diuretic -chronic renal insufficiency; stable- will monitor the renal function for now -hypothyroidism; resumed home meds -DVT prophylaxis;will start chemical prophylaxis when ok with vascular surgery Conrad Clancy MD Jun 28, 2016 12:22
[2016-06-28 16:06] VITALS: BP 148/67; PULSE 78; RESP 19; TEMP 97.8; O2SAT 100
[2016-06-28] MEDS: REMOVE OLD PATCH T-DERMAL SCH ×2 (16:56→16:58)
[2016-06-28] MEDS: fentaNYL 25 MCG/HR PATCH TD SCH ×2 (16:56→16:58)
[2016-06-28] MEDS: MORPHINE SULFATE 4 MG/ML INJ IV PUSH PRN ×2 (17:28→23:18)
[2016-06-28 20:00] VITALS: BP 136/64; PULSE 86; RESP 16; TEMP 99.4; O2SAT 96
[2016-06-28] MEDS: HALOPERIDOL 2 MG TAB PO SCH ×2 (20:50→21:00)
[2016-06-28] MEDS: INSULIN DETEMIR 100 UNITS/ML VIAL SQ SCH (20:50)
[2016-06-29] VITALS: BP 113/56; PULSE 75; RESP 16; TEMP 98.1; O2SAT 99
[2016-06-29] MEDS: PIPERACIL-TAZO 3.375 GM PREMIX 50 ML IV SCH ×4 (02:07→20:39)
[2016-06-29] MEDS: oxyCODONE/ACETAMINOPHEN 10 MG/325 MG TAB PO PRN ×3 (02:07→20:38)
[2016-06-29 04:00] VITALS: BP 110/58; PULSE 74; RESP 16; TEMP 98.1; O2SAT 99
[2016-06-29] MEDS: INSULIN NovoLIN REGULAR SUPPLEMENTAL SCALE SQ SCH ×5 (05:25→23:23)
[2016-06-29] MEDS: LEVOTHYROXINE SODIUM 150 MCG TAB PO SCH (05:27)
[2016-06-29] MEDS: MORPHINE SULFATE 4 MG/ML INJ IV PUSH PRN ×3 (05:27→23:23)
[2016-06-29] MEDS: LEVOTHYROXINE SODIUM 25 MCG TAB PO SCH (05:27)
[2016-06-29 08:18] VITALS: BP 120/63; PULSE 77; RESP 18; TEMP 98; O2SAT 98
[2016-06-29] MEDS: ISOSORBIDE DINITRATE 5 MG TAB PO SCH ×3 (08:58→17:17)
[2016-06-29] MEDS: DULoxetine HCl DR 30 MG CAP PO SCH ×2 (08:59→20:38)
[2016-06-29] MEDS: LOSARTAN 50 MG TAB PO SCH (08:59)
[2016-06-29] MEDS: CARVEDILOL 12.5 MG TAB PO SCH ×2 (08:59→20:39)
[2016-06-29] MEDS: FUROSEMIDE 20 MG/2 ML VIAL IV PUSH SCH (08:59)
[2016-06-29] MEDS: ASPIRIN EC 325 MG TABEC PO SCH (09:00)
[2016-06-29] MEDS: buPROPion HCL 150 MG SUSTAINED RELEASE TAB PO SCH ×2 (09:00→20:38)
[2016-06-29] MEDS: LACTOBACILLUS ACIDOPHILUS TAB PO SCH ×3 (09:00→17:17)
[2016-06-29] MEDS: LIOTHYRONINE SODIUM 5 MCG TAB PO SCH (09:00)
[2016-06-29] MEDS: GABAPENTIN 300 MG CAP PO SCH ×2 (09:00→20:38)
--- NOTE | 2016-06-29 10:56 | HHI.PR ---
Subjective Remarks resting comfortably with no distress. pain is controlled. no fever. no new complaints. Objective Vitals Vital Signs Date Time Temp Pulse Resp B/P Pulse Ox O2 Delivery O2 Flow Rate FiO2 06/29/16 08:18 98.0 77 18 120/63 98 06/29/16 04:00 98.1 74 16 110/58 99 06/29/16 00:00 98.1 75 16 113/56 99 06/28/16 20:00 Room Air 06/28/16 20:00 99.4 86 16 136/64 96 06/28/16 16:06 97.8 78 19 148/67 100 06/28/16 12:04 97.8 64 18 152/62 99 I/O 06/28/16 06/28/16 06/28/16 06/29/16 06/29/16 06/29/16 07:00 15:00 23:00 07:00 15:00 23:00 Intake Total 360 ml 480 ml 1080 ml 720 ml Output Total 1 ml Balance 360 ml 479 ml 1080 ml 720 ml Intake Oral 360 ml 480 ml 1080 ml 720 ml Output Urine Total 1 ml # Voids 1 0 1 # Bowel Movements 0 1 Result Diagram: 06/25/16 1930 06/25/16 1930 Imaging Last Impressions Head CT 06/20/16 0000 Signed Impressions: Service Date/Time: Monday, June 20, 2016 17:52 - CONCLUSION: Slight atrophic and small vessel ischemic changes without any evidence for acute hemorrhage or mass effect. Smith Boateng MD Chest X-Ray 06/16/16 1430 Signed Impressions: Service Date/Time: Thursday, June 16, 2016 14:53 - CONCLUSION: 1. No acute cardiopulmonary findings. Jose Rogers MD Objective Remarks GENERAL: This is a well-nourished, well-developed patient, in no apparent distress. CARDIOVASCULAR: Regular rate and regular rhythm without murmurs, gallops, or rubs. RESPIRATORY: Clear to auscultation. Breath sounds equal bilaterally. No wheezes , rales, or rhonchi. GASTROINTESTINAL: Abdomen soft, non-tender, nondistended. Normal, active bowel sounds MUSCULOSKELETAL: both legs covered with clean dressing. NEURO: Alert & Oriented x4 to person, place, time, situation. 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 Angioseal Debridement of B LE wounds Medications and IVs Current Medications Piperacillin Sod/ Tazobactam Sod 100 ml @ 200 mls/hr ONCE STAT IV Last administered on 06/16/16 14:55; Start 06/16/16 at 14:30; Stop 06/16/16 at 14:59 ; Status DC Vancomycin HCl/ Sodium Chloride (Vancomycin Inj/ NS 250 ml Inj) 250 ml @ 250 mls/hr ONCE STAT IV ; Start 06/16/16 at 14:30; Stop 06/16/16 at 15:29; Status Cancel Lorazepam 1 mg 1 mg ONCE ONCE IV PUSH ; Start 06/16/16 at 15:00; Stop 06/16/16 at 15:02; Status DC Sodium Chloride (NS 1000 ml Inj) 1,000 ml @ 999 mls/hr BOLUS ONCE IV Last administered on 06/16/16 15:30; Start 06/16/16 at 15:00; Stop 06/16/16 at 16:00 ; Status DC Hydromorphone HCl (Dilaudid Pf Inj) 1 mg ONCE ONCE IV PUSH Last administered on 06/16/16 15:31; Start 06/16/16 at 15:15; Stop 06/16/16 at 15:16; Status DC Ondansetron HCl (Zofran Inj) 4 mg ONCE ONCE IV PUSH Last administered on 15:31; Start 06/16/16 at 15:15; Stop 06/16/16 at 15:16; Status DC Dextrose (D50w (Vial) Inj) 25 ml UNSCH PRN IV PUSH HYPOGLYCEMIA-SEE COMMENTS; Start 06/16/16 at 16:00; Stop 06/23/16 at 17:06; Status DC Glucagon (Glucagon Inj) 1 mg UNSCH PRN OTHER HYPOGLYCEMIA-SEE COMMENTS; Start 06/16/16 at 16:00; Stop 06/23/16 at 17:06; Status DC Insulin Aspart 1 1 ACHS SLIDING SCALE SQ Last administered on 06/23/16 05:52 ; Start 06/16/16 at 16:00; Stop 06/23/16 at 17:06; Status DC Pharmacy Profile Note 0 ml @ 0 mls/hr UNSCH OTHER ; Start 06/16/16 at 16:00; Stop 06/18/16 at 19:34; Status DC Pharmacy Profile Note ([facility]) 0 ml @ 0 mls/hr UNSCH OTHER ; Start 06/16/16 at 16:00 Bupropion HCl (Wellbutrin Sr) 150 mg Q12HR PO Last administered on 06/29/16 09: 00; Start 06/16/16 at 21:00 Carvedilol (Coreg) 25 mg BID PO Last administered on 06/29/16 08:59; Start at 21:00 Duloxetine HCl (Cymbalta Dr) 30 mg BID PO Last administered on 06/29/16 08:59; Start 06/16/16 at 21:00 Fentanyl (Duragesic 50 Mcg Patch.72 Hr) 1 patch Q3D TD Last administered on 17:40; Start 06/16/16 at 17:00; Stop 06/22/16 at 16:00; Status DC Gabapentin (Neurontin) 300 mg BID PO Last administered on 06/29/16 09:00; Start 06/16/16 at 21:00 Insulin Detemir (Levemir Inj) 20 units Q12HR SQ ; Start 06/16/16 at 21:00; Stop 06/16/16 at 21:00; Status DC Isosorbide Dinitrate (Isordil) 5 mg TIDAC PO Last administered on 06/29/16 08: 58; Start 06/16/16 at 17:00 Liothyronine Sodium (Cytomel) 5 mcg DAILY PO Last administered on 06/29/16 09: 00; Start 06/17/16 at 09:00 Lactobacillus Acidophilus (Lactinex) 1 tab TID PO Last administered on 09:00; Start 06/16/16 at 18:00 Levothyroxine Sodium (Synthroid) 150 mcg DAILY@06 PO Last administered on 05:27; Start 06/17/16 at 06:00 Miscellaneous Information 1 Q3D T-DERMAL Last administered on 06/22/16 15:34; Start 06/19/16 at 17:00; Stop 06/23/16 at 21:04; Status DC Ondansetron HCl (Zofran Inj) 4 mg Q8HR PRN IV PUSH NAUSEA; Start 06/16/16 at 16 :00 Acetaminophen (Tylenol) 650 mg Q4H PRN PO FEVER; Start 06/16/16 at 16:00; Stop 06/23/16 at 17:05; Status DC Acetaminophen/ Hydrocodone Bitart ([place] 5-325 Mg) 1 tab Q4H PRN PO PAIN > 5 Last administered on 06/23/16 08:33; Start 06/16/16 at 16:00; Stop 06/23/16 at 17:07; Status DC Furosemide (Lasix Inj) 20 mg DAILY IV PUSH Last administered on 06/29/16 08:59 ; Start 06/17/16 at 09:00 Levothyroxine Sodium 25 mcg 25 mcg DAILY@06 PO Last administered on 06/29/16 05 :27; Start 06/17/16 at 06:00 Vancomycin HCl/ Sodium Chloride (Vancomycin Inj/ NS 500 ml Inj) 514 ml @ 250 mls/hr Q24H IV Last administered on 06/18/16 16:40; Start 06/16/16 at 17:00; Stop 06/18/16 at 19:35; Status DC Miscellaneous Information SPECIFIC LAB TO BE [facility]... ONCE ONCE XX ; Start at 16:45; Stop 06/19/16 at 16:46; Status Cancel Piperacillin Sod/ Tazobactam Sod (Zosyn 3.375 Gm Premix) 50 ml @ 100 mls/hr Q6H IV Last administered on 06/29/16 08:58; Start 06/16/16 at 21:00 Insulin Detemir (Levemir Inj) 20 units HS SQ Last administered on 06/28/16 20: 50; Start 06/16/16 at 21:00 Losartan Potassium (Cozaar) 100 mg DAILY PO Last administered on 06/29/16 08:59 ; Start 06/17/16 at 09:00 Hydromorphone HCl (Dilaudid Pf Inj) 0.5 mg ONCE ONCE SQ ; Start 06/18/16 at 14: 00; Stop 06/18/16 at 14:01; Status Cancel Hydromorphone HCl (Dilaudid Pf Inj) 0.5 mg NOW ONCE IV Last administered on 14:45; Start 06/18/16 at 14:45; Stop 06/18/16 at 14:46; Status DC Fentanyl (Duragesic 25 Mcg Patch.72 Hr) 1 patch Q3D TD Last administered on 15:34; Start 06/22/16 at 17:00 Miscellaneous Information 1 Q3D T-DERMAL ; Start 06/24/16 at 09:45; Stop at 09:45; Status DC Haloperidol (Haldol) 2 mg HS PO Last administered on 06/24/16 22:22; Start at 21:00 Prednisone (Deltasone) 50 mg ONCE ONCE PO Last administered on 06/23/16 00:14 ; Start 06/23/16 at 01:00; Stop 06/23/16 at 01:01; Status DC Prednisone (Deltasone) 50 mg ONCE ONCE PO Last administered on 06/23/16 05:52 ; Start 06/23/16 at 07:00; Stop 06/23/16 at 07:01; Status DC Prednisone (Deltasone) 50 mg ONCE ONCE PO Last administered on 06/23/16 12:54 ; Start 06/23/16 at 13:00; Stop 06/23/16 at 13:01; Status DC Diphenhydramine HCl 50 mg 50 mg ONCE ONCE PO Last administered on 06/23/16 12 :54; Start 06/23/16 at 13:00; Stop 06/23/16 at 13:01; Status DC Potassium Chloride/Sodium Chloride (NS + KCl 20 Meq Inj) 1,000 ml @ 84 mls/hr [id number] IV Last administered on 06/28/16 22:17; Start 06/23/16 at 00:00 Heparin Sodium (Porcine) (Heparin Inj) 10,000 units STK-MED ONCE .ROUTE Last administered on 06/23/16 15:43; Start 06/23/16 at 14:35; Stop 06/23/16 at 14:36 ; Status DC Heparin Sodium (Porcine) (Heparin Inj) 10,000 units STK-MED ONCE .ROUTE ; Start 06/23/16 at 14:40; Stop 06/23/16 at 14:41; Status DC Fentanyl Citrate (fentaNYL INJ) 250 mcg STK-MED ONCE .ROUTE ; Start 06/23/16 at 14:47; Stop 06/23/16 at 14:48; Status DC Morphine Sulfate (Morphine Inj) 4 mg STK-MED ONCE .ROUTE ; Start 06/23/16 at 14: 47; Stop 06/23/16 at 14:48; Status DC Famotidine (Pepcid Inj) 20 mg STK-MED ONCE .ROUTE ; Start 06/23/16 at 14:50; Stop 06/23/16 at 14:51; Status DC Diphenhydramine HCl (Benadryl Inj) 50 mg STK-MED ONCE .ROUTE ; Start 06/23/16 at 14:51; Stop 06/23/16 at 14:52; Status DC Methylprednisolone Sodium Succinate (SoluMEDROL INJ) 125 mg STK-MED ONCE .ROUTE ; Start 06/23/16 at 14:56; Stop 06/23/16 at 14:57; Status DC Iohexol (OMNIPAQUE 300 INJ (Rad CT)) 100 ml STK-MED ONCE OTHER Last administered on 06/23/16 15:43; Start 06/23/16 at 15:43; Stop 06/23/16 at 15:48 ; Status DC Aspirin (Ecotrin Ec) 325 mg DAILY PO Last administered on 06/29/16 09:00; Start 06/24/16 at 09:00 Acetaminophen (Tylenol) 650 mg Q4H PRN PO TEMPERATURE > 101 F; Start 06/23/16 at 17:00 Magnesium Hydroxide (Milk Of Magnesia Liq) 30 ml DAILY PRN PO CONSTIPATION; Start 06/23/16 at 17:00 Oxycodone/ Acetaminophen (Percocet 5-325 Mg) 1 tab Q4H PRN PO PAIN SCALE 1 TO 5; Start 06/23/16 at 17:00 Oxycodone/ Acetaminophen (Percocet 10-325 Mg) 1 tab Q4H PRN PO PAIN SCALE 6 TO 10 Last administered on 06/29/16 02:07; Start 06/23/16 at 17:00 Morphine Sulfate (Morphine Inj) 4 mg Q4H PRN IV PUSH BREAKTHROUGH PAIN Last administered on 06/29/16 05:27; Start 06/23/16 at 17:00 Miscellaneous Information (Post-op Orders (for Pharmacy)) STAT ONCE OTHER ; Start 06/23/16 at 17:00; Stop 06/23/16 at 17:03; Status DC Insulin Human Regular (NovoLIN R SUPPLEMENTAL SCALE) 1 Q6HR SQ Last administered on 06/28/16 23:19; Start 06/23/16 at 18:00 Dextrose (D50w (Vial) Inj) 25 ml UNSCH PRN IV PUSH HYPOGLYCEMIA-SEE COMMENTS; Start 06/23/16 at 17:00 Glucagon (Glucagon Inj) 1 mg UNSCH PRN OTHER HYPOGLYCEMIA-SEE COMMENTS; Start 06/23/16 at 17:00 Miscellaneous Information ALL NURSING DEPARTME... UNSCH PRN XX SEE LABEL COMMENTS; Start 06/23/16 at 16:59; Stop 06/24/16 at 16:58; Status DC Miscellaneous Information 1 Q3D T-DERMAL Last administered on 06/28/16 16:56; Start 06/25/16 at 17:00 Propofol (Diprivan 200 Mg/20 ml Inj) 200 mg STK-MED ONCE IV ; Start 06/23/16 at 12:01; Stop 06/24/16 at 12:01; Status DC Neostigmine Methylsulfate (Prostigmin Inj) 3 mg STK-MED ONCE IV ; Start at 12:01; Stop 06/24/16 at 12:01; Status DC Ondansetron HCl (Zofran Inj) 4 mg STK-MED ONCE IV PUSH ; Start 06/23/16 at 12:01 ; Stop 06/24/16 at 12:01; Status DC A/P Assessment and Plan - cellulitis of both legs with bilateral lower extremity wounds with history of PVD s/p Aortogram w/ B LE angiogram/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 -confusional episode with reported hallucinations- -- now has resolved- neurology and psych consulted. decreased the dose of Fentanyl patch . -hyponatremia; seems to be chronic- asymptomatic- improved. -anemia of chronic disease- H/H fairly stable.will monitor -diabetes mellitus; resumed long acting insulin- accu-check with SSI -cardiomyopathy; resumed BB, nitrate and diuretic -chronic renal insufficiency; stable- will monitor the renal function for now -hypothyroidism; resumed home meds -DVT prophylaxis;will start chemical prophylaxis when ok with vascular surgery Discharge Planning possible discharge early this week. Conrad Clancy MD Jun 29, 2016 10:56
[2016-06-29] MEDS: NS + KCL 20 MEQ INJ 1,000 ML IV SCH ×2 (12:03→22:50)
[2016-06-29 12:15] VITALS: BP 111/66; PULSE 79; RESP 18; TEMP 98; O2SAT 96
[2016-06-29 16:04] VITALS: BP 129/59; PULSE 78; RESP 20; TEMP 97.8; O2SAT 95
[2016-06-29 20:08] VITALS: BP 142/63; PULSE 79; RESP 20; TEMP 97.5; O2SAT 100
[2016-06-29] MEDS: INSULIN DETEMIR 100 UNITS/ML VIAL SQ SCH (20:39)
[2016-06-29] MEDS: HALOPERIDOL 2 MG TAB PO SCH (20:43)
[2016-06-30 00:05] VITALS: BP 117/56; PULSE 75; RESP 16; TEMP 97.8; O2SAT 99
[2016-06-30] MEDS: oxyCODONE/ACETAMINOPHEN 10 MG/325 MG TAB PO PRN ×5 (02:47→22:10)
[2016-06-30] MEDS: PIPERACIL-TAZO 3.375 GM PREMIX 50 ML IV SCH ×2 (03:24→11:17)
[2016-06-30 04:37] VITALS: BP 134/57; PULSE 77; RESP 16; TEMP 97.8; O2SAT 94
[2016-06-30] MEDS: INSULIN NovoLIN REGULAR SUPPLEMENTAL SCALE SQ SCH ×4 (05:18→23:46)
[2016-06-30] MEDS: LEVOTHYROXINE SODIUM 150 MCG TAB PO SCH (05:24)
[2016-06-30] MEDS: LEVOTHYROXINE SODIUM 25 MCG TAB PO SCH (05:24)
[2016-06-30 08:00] VITALS: BP 169/60; PULSE 71; RESP 18; TEMP 97.7; O2SAT 95
[2016-06-30] MEDS: NS + KCL 20 MEQ INJ 1,000 ML IV SCH ×2 (10:45→22:40)
[2016-06-30] MEDS: MORPHINE SULFATE 4 MG/ML INJ IV PUSH PRN (11:15)
[2016-06-30] MEDS: LACTOBACILLUS ACIDOPHILUS TAB PO SCH ×3 (11:16→17:46)
[2016-06-30] MEDS: LOSARTAN 50 MG TAB PO SCH (11:16)
[2016-06-30] MEDS: ISOSORBIDE DINITRATE 5 MG TAB PO SCH ×3 (11:16→17:46)
[2016-06-30] MEDS: DULoxetine HCl DR 30 MG CAP PO SCH ×2 (11:16→22:10)
[2016-06-30] MEDS: LIOTHYRONINE SODIUM 5 MCG TAB PO SCH (11:16)
[2016-06-30] MEDS: GABAPENTIN 300 MG CAP PO SCH ×2 (11:16→22:10)
[2016-06-30] MEDS: ASPIRIN EC 325 MG TABEC PO SCH (11:17)
[2016-06-30] MEDS: CARVEDILOL 12.5 MG TAB PO SCH ×2 (11:17→22:11)
[2016-06-30] MEDS: buPROPion HCL 150 MG SUSTAINED RELEASE TAB PO SCH ×2 (11:17→22:11)
[2016-06-30] MEDS: FUROSEMIDE 20 MG/2 ML VIAL IV PUSH SCH (11:17)
--- NOTE | 2016-06-30 11:18 | HHI.PR ---
Subjective Remarks in no acute distress. pain to the legs fairly controlled. no fever. wounds examined with ID and vascular and RN at the bedside. Objective Vitals Vital Signs Date Time Temp Pulse Resp B/P Pulse Ox O2 Delivery O2 Flow Rate FiO2 06/30/16 08:00 Room Air 06/30/16 08:00 97.7 71 18 169/60 95 06/30/16 04:37 97.8 77 16 134/57 94 06/30/16 00:05 97.8 75 16 117/56 99 06/29/16 20:08 97.5 79 20 142/63 100 06/29/16 20:00 Room Air 06/29/16 16:38 18 06/29/16 16:20 95 Room Air 06/29/16 16:04 97.8 78 20 129/59 95 06/29/16 13:00 18 06/29/16 12:15 98.0 79 18 111/66 96 I/O 06/29/16 06/29/16 06/29/16 06/30/16 06/30/16 06/30/16 07:00 15:00 23:00 07:00 15:00 23:00 Intake Total 720 ml 360 ml 1287 ml Balance 720 ml 360 ml 1287 ml Intake Oral 720 ml 360 ml 240 ml IV Total 1047 ml # Voids 1 1 1 # Bowel Movements 1 1 Imaging Last Impressions Head CT 06/20/16 0000 Signed Impressions: Service Date/Time: Monday, June 20, 2016 17:52 - CONCLUSION: Slight atrophic and small vessel ischemic changes without any evidence for acute hemorrhage or mass effect. Smith Boateng MD Chest X-Ray 06/16/16 1430 Signed Impressions: Service Date/Time: Thursday, June 16, 2016 14:53 - CONCLUSION: 1. No acute cardiopulmonary findings. Jose Rogers MD Objective Remarks GENERAL: This is a well-nourished, well-developed patient, in no apparent distress. CARDIOVASCULAR: Regular rate and regular rhythm without murmurs, gallops, or rubs. RESPIRATORY: Clear to auscultation. Breath sounds equal bilaterally. No wheezes , rales, or rhonchi. GASTROINTESTINAL: Abdomen soft, non-tender, nondistended. Normal, active bowel sounds MUSCULOSKELETAL: wounds on both legs- seem to be improving. NEURO: Alert & Oriented x4 to person, place, time, situation. 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 MODELING SPECIALIST Angioseal Debridement of B LE wounds Medications and IVs Current Medications Piperacillin Sod/ Tazobactam Sod 100 ml @ 200 mls/hr ONCE STAT IV Last administered on 06/16/16 14:55; Start 06/16/16 at 14:30; Stop 06/16/16 at 14:59 ; Status DC Vancomycin HCl/ Sodium Chloride (Vancomycin Inj/ NS 250 ml Inj) 250 ml @ 250 mls/hr ONCE STAT IV ; Start 06/16/16 at 14:30; Stop 06/16/16 at 15:29; Status Cancel Lorazepam 1 mg 1 mg ONCE ONCE IV PUSH ; Start 06/16/16 at 15:00; Stop 06/16/16 at 15:02; Status DC Sodium Chloride (NS 1000 ml Inj) 1,000 ml @ 999 mls/hr BOLUS ONCE IV Last administered on 06/16/16 15:30; Start 06/16/16 at 15:00; Stop 06/16/16 at 16:00 ; Status DC Hydromorphone HCl (Dilaudid Pf Inj) 1 mg ONCE ONCE IV PUSH Last administered on 06/16/16 15:31; Start 06/16/16 at 15:15; Stop 06/16/16 at 15:16; Status DC Ondansetron HCl (Zofran Inj) 4 mg ONCE ONCE IV PUSH Last administered on 15:31; Start 06/16/16 at 15:15; Stop 06/16/16 at 15:16; Status DC Dextrose (D50w (Vial) Inj) 25 ml UNSCH PRN IV PUSH HYPOGLYCEMIA-SEE COMMENTS; Start 06/16/16 at 16:00; Stop 06/23/16 at 17:06; Status DC Glucagon (Glucagon Inj) 1 mg UNSCH PRN OTHER HYPOGLYCEMIA-SEE COMMENTS; Start 06/16/16 at 16:00; Stop 06/23/16 at 17:06; Status DC Insulin Aspart 1 1 ACHS SLIDING SCALE SQ Last administered on 06/23/16 05:52 ; Start 06/16/16 at 16:00; Stop 06/23/16 at 17:06; Status DC Pharmacy Profile Note 0 ml @ 0 mls/hr UNSCH OTHER ; Start 06/16/16 at 16:00; Stop 06/18/16 at 19:34; Status DC Pharmacy Profile Note ([facility]) 0 ml @ 0 mls/hr UNSCH OTHER ; Start 06/16/16 at 16:00 Bupropion HCl (Wellbutrin Sr) 150 mg Q12HR PO Last administered on 06/29/16 20: 38; Start 06/16/16 at 21:00 Carvedilol (Coreg) 25 mg BID PO Last administered on 06/29/16 20:39; Start at 21:00 Duloxetine HCl (Cymbalta Dr) 30 mg BID PO Last administered on 06/29/16 20:38; Start 06/16/16 at 21:00 Fentanyl (Duragesic 50 Mcg Patch.72 Hr) 1 patch Q3D TD Last administered on 17:40; Start 06/16/16 at 17:00; Stop 06/22/16 at 16:00; Status DC Gabapentin (Neurontin) 300 mg BID PO Last administered on 06/29/16 20:38; Start 06/16/16 at 21:00 Insulin Detemir (Levemir Inj) 20 units Q12HR SQ ; Start 06/16/16 at 21:00; Stop 06/16/16 at 21:00; Status DC Isosorbide Dinitrate (Isordil) 5 mg TIDAC PO Last administered on 06/29/16 17: 17; Start 06/16/16 at 17:00 Liothyronine Sodium (Cytomel) 5 mcg DAILY PO Last administered on 06/29/16 09: 00; Start 06/17/16 at 09:00 Lactobacillus Acidophilus (Lactinex) 1 tab TID PO Last administered on 17:17; Start 06/16/16 at 18:00 Levothyroxine Sodium (Synthroid) 150 mcg DAILY@06 PO Last administered on 05:24; Start 06/17/16 at 06:00 Miscellaneous Information 1 Q3D T-DERMAL Last administered on 06/22/16 15:34; Start 06/19/16 at 17:00; Stop 06/23/16 at 21:04; Status DC Ondansetron HCl (Zofran Inj) 4 mg Q8HR PRN IV PUSH NAUSEA; Start 06/16/16 at 16 :00 Acetaminophen (Tylenol) 650 mg Q4H PRN PO FEVER; Start 06/16/16 at 16:00; Stop 06/23/16 at 17:05; Status DC Acetaminophen/ Hydrocodone Bitart ([place] 5-325 Mg) 1 tab Q4H PRN PO PAIN > 5 Last administered on 06/23/16 08:33; Start 06/16/16 at 16:00; Stop 06/23/16 at 17:07; Status DC Furosemide (Lasix Inj) 20 mg DAILY IV PUSH Last administered on 06/29/16 08:59 ; Start 06/17/16 at 09:00 Levothyroxine Sodium 25 mcg 25 mcg DAILY@06 PO Last administered on 06/30/16 05 :24; Start 06/17/16 at 06:00 Vancomycin HCl/ Sodium Chloride (Vancomycin Inj/ NS 500 ml Inj) 514 ml @ 250 mls/hr Q24H IV Last administered on 06/18/16 16:40; Start 06/16/16 at 17:00; Stop 06/18/16 at 19:35; Status DC Miscellaneous Information SPECIFIC LAB TO BE [facility]... ONCE ONCE XX ; Start at 16:45; Stop 06/19/16 at 16:46; Status Cancel Piperacillin Sod/ Tazobactam Sod (Zosyn 3.375 Gm Premix) 50 ml @ 100 mls/hr Q6H IV Last administered on 06/30/16 03:24; Start 06/16/16 at 21:00 Insulin Detemir (Levemir Inj) 20 units HS SQ Last administered on 06/29/16 20: 39; Start 06/16/16 at 21:00 Losartan Potassium (Cozaar) 100 mg DAILY PO Last administered on 06/29/16 08:59 ; Start 06/17/16 at 09:00 Hydromorphone HCl (Dilaudid Pf Inj) 0.5 mg ONCE ONCE SQ ; Start 06/18/16 at 14: 00; Stop 06/18/16 at 14:01; Status Cancel Hydromorphone HCl (Dilaudid Pf Inj) 0.5 mg NOW ONCE IV Last administered on 14:45; Start 06/18/16 at 14:45; Stop 06/18/16 at 14:46; Status DC Fentanyl (Duragesic 25 Mcg Patch.72 Hr) 1 patch Q3D TD Last administered on 15:34; Start 06/22/16 at 17:00 Miscellaneous Information 1 Q3D T-DERMAL ; Start 06/24/16 at 09:45; Stop at 09:45; Status DC Haloperidol (Haldol) 2 mg HS PO Last administered on 06/24/16 22:22; Start at 21:00 Prednisone (Deltasone) 50 mg ONCE ONCE PO Last administered on 06/23/16 00:14 ; Start 06/23/16 at 01:00; Stop 06/23/16 at 01:01; Status DC Prednisone (Deltasone) 50 mg ONCE ONCE PO Last administered on 06/23/16 05:52 ; Start 06/23/16 at 07:00; Stop 06/23/16 at 07:01; Status DC Prednisone (Deltasone) 50 mg ONCE ONCE PO Last administered on 06/23/16 12:54 ; Start 06/23/16 at 13:00; Stop 06/23/16 at 13:01; Status DC Diphenhydramine HCl 50 mg 50 mg ONCE ONCE PO Last administered on 06/23/16 12 :54; Start 06/23/16 at 13:00; Stop 06/23/16 at 13:01; Status DC Potassium Chloride/Sodium Chloride (NS + KCl 20 Meq Inj) 1,000 ml @ 84 mls/hr [id number] IV Last administered on 06/29/16 12:03; Start 06/23/16 at 00:00 Heparin Sodium (Porcine) (Heparin Inj) 10,000 units STK-MED ONCE .ROUTE Last administered on 06/23/16 15:43; Start 06/23/16 at 14:35; Stop 06/23/16 at 14:36 ; Status DC Heparin Sodium (Porcine) (Heparin Inj) 10,000 units STK-MED ONCE .ROUTE ; Start 06/23/16 at 14:40; Stop 06/23/16 at 14:41; Status DC Fentanyl Citrate (fentaNYL INJ) 250 mcg STK-MED ONCE .ROUTE ; Start 06/23/16 at 14:47; Stop 06/23/16 at 14:48; Status DC Morphine Sulfate (Morphine Inj) 4 mg STK-MED ONCE .ROUTE ; Start 06/23/16 at 14: 47; Stop 06/23/16 at 14:48; Status DC Famotidine (Pepcid Inj) 20 mg STK-MED ONCE .ROUTE ; Start 06/23/16 at 14:50; Stop 06/23/16 at 14:51; Status DC Diphenhydramine HCl (Benadryl Inj) 50 mg STK-MED ONCE .ROUTE ; Start 06/23/16 at 14:51; Stop 06/23/16 at 14:52; Status DC Methylprednisolone Sodium Succinate (SoluMEDROL INJ) 125 mg STK-MED ONCE .ROUTE ; Start 06/23/16 at 14:56; Stop 06/23/16 at 14:57; Status DC Iohexol (OMNIPAQUE 300 INJ (Rad CT)) 100 ml STK-MED ONCE OTHER Last administered on 06/23/16 15:43; Start 06/23/16 at 15:43; Stop 06/23/16 at 15:48 ; Status DC Aspirin (Ecotrin Ec) 325 mg DAILY PO Last administered on 06/29/16 09:00; Start 06/24/16 at 09:00 Acetaminophen (Tylenol) 650 mg Q4H PRN PO TEMPERATURE > 101 F; Start 06/23/16 at 17:00 Magnesium Hydroxide (Milk Of Magnesia Liq) 30 ml DAILY PRN PO CONSTIPATION; Start 06/23/16 at 17:00 Oxycodone/ Acetaminophen (Percocet 5-325 Mg) 1 tab Q4H PRN PO PAIN SCALE 1 TO 5; Start 06/23/16 at 17:00 Oxycodone/ Acetaminophen (Percocet 10-325 Mg) 1 tab Q4H PRN PO PAIN SCALE 6 TO 10 Last administered on 06/30/16 06:48; Start 06/23/16 at 17:00 Morphine Sulfate (Morphine Inj) 4 mg Q4H PRN IV PUSH BREAKTHROUGH PAIN Last administered on 06/29/16 23:23; Start 06/23/16 at 17:00 Miscellaneous Information (Post-op Orders (for Pharmacy)) STAT ONCE OTHER ; Start 06/23/16 at 17:00; Stop 06/23/16 at 17:03; Status DC Insulin Human Regular (NovoLIN R SUPPLEMENTAL SCALE) 1 Q6HR SQ Last administered on 06/29/16 23:23; Start 06/23/16 at 18:00 Dextrose (D50w (Vial) Inj) 25 ml UNSCH PRN IV PUSH HYPOGLYCEMIA-SEE COMMENTS; Start 06/23/16 at 17:00 Glucagon (Glucagon Inj) 1 mg UNSCH PRN OTHER HYPOGLYCEMIA-SEE COMMENTS; Start 06/23/16 at 17:00 Miscellaneous Information ALL NURSING DEPARTME... UNSCH PRN XX SEE LABEL COMMENTS; Start 06/23/16 at 16:59; Stop 06/24/16 at 16:58; Status DC Miscellaneous Information 1 Q3D T-DERMAL Last administered on 06/28/16 16:56; Start 06/25/16 at 17:00 Propofol (Diprivan 200 Mg/20 ml Inj) 200 mg STK-MED ONCE IV ; Start 06/23/16 at 12:01; Stop 06/24/16 at 12:01; Status DC Neostigmine Methylsulfate (Prostigmin Inj) 3 mg STK-MED ONCE IV ; Start at 12:01; Stop 06/24/16 at 12:01; Status DC Ondansetron HCl (Zofran Inj) 4 mg STK-MED ONCE IV PUSH ; Start 06/23/16 at 12:01 ; Stop 06/24/16 at 12:01; Status DC A/P Assessment and Plan - cellulitis of both legs with bilateral lower extremity wounds with history of PVD s/p Aortogram w/ B LE angiogram/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 -confusional episode with reported hallucinations- -- now has resolved- neurology and psych consulted. decreased the dose of Fentanyl patch . -hyponatremia; seems to be chronic- asymptomatic- improved. -anemia of chronic disease- H/H fairly stable.will monitor -diabetes mellitus; resumed long acting insulin- accu-check with SSI -cardiomyopathy; resumed BB, nitrate and diuretic -chronic renal insufficiency; stable- will monitor the renal function for now -hypothyroidism; resumed home meds -DVT prophylaxis;will start chemical prophylaxis when ok with vascular surgery Discharge Planning dc planning in progress. d/w the case management. Conrad Clancy MD Jun 30, 2016 11:18
[2016-06-30 12:00] VITALS: BP 121/58; PULSE 81; RESP 18; TEMP 97.2; O2SAT 97
--- NOTE | 2016-06-30 13:02 | HHI.IDPN ---
Subjective Subjective Remarks Patient is a 60-year-old female, admitted to the hospital for further evaluation of severe lower extremity swelling with extensive ulcers, with significant amount of drainage. Patient has vascular insufficiency s/p intervention. Overnight events reviewed. No fever No rash No diarrhea. Antibiotics Zosyn IV Lines Line sites with no e/o infection Past Medical History reviewed Allergies: Coded Allergies: Contrast Media (Verified Allergy, Severe, Flash pulmonary edema , 06/16/16) PEANUTS (Verified Allergy, Severe, rash, 06/16/16) Objective . Vital Signs Date Time Temp Pulse Resp B/P Pulse Ox O2 Delivery O2 Flow Rate FiO2 06/30/16 08:00 Room Air 06/30/16 08:00 97.7 71 18 169/60 95 06/30/16 04:37 97.8 77 16 134/57 94 06/30/16 00:05 97.8 75 16 117/56 99 06/29/16 20:08 97.5 79 20 142/63 100 06/29/16 20:00 Room Air 06/29/16 16:38 18 06/29/16 16:20 95 Room Air 06/29/16 16:04 97.8 78 20 129/59 95 06/29/16 06/29/16 06/30/16 15:00 23:00 07:00 Intake Total 360 ml 1287 ml Balance 360 ml 1287 ml Intake Oral 360 ml 240 ml IV Total 1047 ml # Voids 1 1 # Bowel Movements 1 1 Imaging Last Impressions Head CT 06/20/16 0000 Signed Impressions: Service Date/Time: Monday, June 20, 2016 17:52 - CONCLUSION: Slight atrophic and small vessel ischemic changes without any evidence for acute hemorrhage or mass effect. Smith Boateng MD Chest X-Ray 06/16/16 1430 Signed Impressions: Service Date/Time: Thursday, June 16, 2016 14:53 - CONCLUSION: 1. No acute cardiopulmonary findings. Jose Rogres MD Physical Exam GENERAL: This is a well-nourished, well-developed patient, in no apparent distress. SKIN: No rashes, ecchymoses or lesions. Cool and dry. HEAD: Atraumatic. Normocephalic. No temporal or scalp tenderness. EYES: Pupils equal round and reactive. Extraocular motions intact. No scleral icterus. No injection or drainage. ENT: Nose without bleeding, purulent drainage or septal hematoma. Throat without erythema, tonsillar hypertrophy or exudate. Uvula midline. Airway patent. NECK: Trachea midline. Supple, nontender, no meningeal signs. CARDIOVASCULAR: HS audible. RESPIRATORY: Clear to auscultation. Breath sounds equal bilaterally. No wheezes , rales, or rhonchi. GASTROINTESTINAL: Abdomen soft, non-tender, nondistended. MUSCULOSKELETAL: Bilateral LE ulcers with areas of ulceration. Areas of eschar now debrided. On right heel plantar aspect an area of black dry eschar noted. Overall right leg much improved. Left leg on the posterior aspect of calf as well as the heel there were eschars noted. Several toes on right LE appear to be areas of dry gangrene. NEUROLOGICAL: Awake and alert. Grossly nonfocal Psych cooperative IV line sites with no e/o infection. Assessment & Plan Remarks Cellulitis of both legs with bilateral lower extremity wounds with history of PVD Anemia of chronic disease DM2 uncontrolled Morbid Obesity Chronic renal insufficiency Hypothyroidism Recs: DC Zosyn IV Continue wound care. Reviewed wounds of bilateral LE with vascular TRUCK DRIVER HELPER, . Description in exam. TRUCK DRIVER HELPER for Vascular d/w attending: ok to DC on no antibiotics. Continue wound care. May need surgical intervention further to be decided on follow up with Vascular. Will sign off please call back if any change in clinical condition or questions. Charisse Pedraza MD Jun 30, 2016 13:02
--- NOTE | 2016-06-30 13:13 | PD.VS.PN ---
Subjective Subjective/Hospital Course Mrs. Lemos is a 61/F post-op Aortogram w/ B LE angiogram, L SFA AQUATICS DIRECTOR, R HORSE RANCHER Angioseal and Debridement of B LE wounds Pt sitting in chair Alert in No Acute Distress Dressing changed at present time with nurse, Attending and Infectious Disease at the BS Pt c/o mild discomfort with dressing changes Objective Vitals/I&O Date Time Temp Pulse Resp B/P Pulse Ox O2 Delivery O2 Flow Rate FiO2 06/30/16 08:00 Room Air 06/30/16 08:00 97.7 71 18 169/60 95 06/30/16 04:37 97.8 77 16 134/57 94 06/30/16 00:05 97.8 75 16 117/56 99 06/29/16 20:08 97.5 79 20 142/63 100 06/29/16 20:00 Room Air 06/29/16 16:38 18 06/29/16 16:20 95 Room Air 06/29/16 16:04 97.8 78 20 129/59 95 06/29/16 13:00 18 Physical Exam GENERAL: Well appearing 61/F, A&OX3, NAD SKIN: Warm and dry. B LE desquamated wounds with exposed sub q tissue, Wounds showing signs of improvement since hospital admission, noted dry necrotic left heel and left 2,3 digit (toes) NECK: Supple, trachea midline. No JVD or lymphadenopathy. CARDIOVASCULAR: Regular rate and rhythm Laboratory Last Impressions Head CT 06/20/16 0000 Signed Impressions: Service Date/Time: Monday, June 20, 2016 17:52 - CONCLUSION: Slight atrophic and small vessel ischemic changes without any evidence for acute hemorrhage or mass effect. Smith Boateng MD Chest X-Ray 06/16/16 1430 Signed Impressions: Service Date/Time: Thursday, June 16, 2016 14:53 - CONCLUSION: 1. No acute cardiopulmonary findings. Jose Rogers MD Imaging Vital Signs Date Time Temp Pulse Resp B/P Pulse Ox O2 Delivery O2 Flow Rate FiO2 06/30/16 08:00 Room Air 06/30/16 08:00 97.7 71 18 169/60 95 06/30/16 04:37 97.8 77 16 134/57 94 06/30/16 00:05 97.8 75 16 117/56 99 06/29/16 20:08 97.5 79 20 142/63 100 06/29/16 20:00 Room Air 06/29/16 16:38 18 06/29/16 16:20 95 Room Air 06/29/16 16:04 97.8 78 20 129/59 95 Assessment and Plan Assessment: (1) PVD (peripheral vascular disease) Status: Chronic Plan Multifactorial LE wounds, chronic in a patient who is minimally ambulatory. 1. Wound care: Continue calcium alginate Ag and compression toes to thighs 2. Elevation of BLE 3. Will follow-up with Patient in out-patient clinic at scheduled appointment time 07/25/16 at 1045 [phone] Discharge Planning Pt ok for D/C with continued wound care management Will follow-up with Mrs. Lemos out-patient 07/25/16 at 1045 Nasrin Carl Jun 30, 2016 13:13
[2016-06-30 16:00] VITALS: BP 149/70; PULSE 83; RESP 20; TEMP 98.1; O2SAT 98
[2016-06-30 20:00] VITALS: BP 157/70; PULSE 88; RESP 18; TEMP 97.2; O2SAT 95
[2016-06-30] MEDS: INSULIN DETEMIR 100 UNITS/ML VIAL SQ SCH (21:00)
[2016-06-30] MEDS: HALOPERIDOL 2 MG TAB PO SCH (22:11)
[2016-07-01] VITALS: BP 122/66; PULSE 76; RESP 18; TEMP 98.2; O2SAT 98
[2016-07-01 04:00] VITALS: BP 157/63; PULSE 70; RESP 16; TEMP 97.2; O2SAT 99
[2016-07-01] MEDS: LEVOTHYROXINE SODIUM 25 MCG TAB PO SCH (05:37)
[2016-07-01] MEDS: oxyCODONE/ACETAMINOPHEN 10 MG/325 MG TAB PO PRN ×4 (05:38→23:33)
[2016-07-01] MEDS: LEVOTHYROXINE SODIUM 150 MCG TAB PO SCH (05:38)
[2016-07-01] MEDS: DEXTROSE 50% IN WATER 50 ML VIAL(D50) IV PUSH PRN ×2 (05:45→06:14)
[2016-07-01] MEDS: INSULIN NovoLIN REGULAR SUPPLEMENTAL SCALE SQ SCH ×4 (05:49→23:33)
[2016-07-01 06:27] LABS: AUTOMATED NEUTROPHIL # 7.1 TH/MM3 (1.8-7.7); BASOPHIL # 0.1 TH/MM3 (0-0.2); BASOPHIL % 0.7 % (0.0-2.0); EOSINOPHIL # 0.2 TH/MM3 (0-0.4); EOSINOPHIL % 2.1 % (0.0-4.0); HEMATOCRIT 27.4 % (35.0-46.0); LYMPHOCYTE # 1.7 TH/MM3 (1.0-4.8); MEAN CELL VOLUME 78.1 FL (80.0-100.0); MEAN CORPUSCULAR HEMOGLOBIN 24.5 PG (27.0-34.0); MEAN CORPUSCULAR HGB CONC 31.3 % (32.0-36.0); MONO % 9.7 % (0.0-8.0); NEUT % 70.5 % (16.0-70.0); PLATELET COUNT 412 TH/MM3 (150-450); RED CELL DISTRIBUTION WIDTH 17.3 % (11.6-17.2); WHITE BLOOD COUNT 10.1 TH/MM3 (4.0-11.0)
[2016-07-01 06:30] LABS: HEMO FLAGS AUTO DIFF
[2016-07-01 07:11] LABS: ALKALINE PHOSPHATASE 101 U/L (45-117); ALT (GPT) 20 U/L (10-53); ANION GAP 7 MEQ/L (5-15); AST (GOT) 20 U/L (15-37); BICARBONATE 30.5 MEQ/L (21.0-32.0); BLOOD UREA NITROGEN 20 MG/DL (7-18); CHLORIDE 100 MEQ/L (98-107); GLOMERULAR FILTRATION RATE 37 ML/MIN (>89); POTASSIUM 3.5 MEQ/L (3.5-5.1); SODIUM (NA) 137 MEQ/L (136-145); TOTAL BILIRUBIN ADULT 0.4 MG/DL (0.2-1.0)
[2016-07-01 07:44] LABS: SCAN/DIFF AUTO DIFF CONFIRMED
[2016-07-01] MEDS: GABAPENTIN 300 MG CAP PO SCH ×2 (07:53→21:17)
[2016-07-01] MEDS: LOSARTAN 50 MG TAB PO SCH (07:53)
[2016-07-01] MEDS: LACTOBACILLUS ACIDOPHILUS TAB PO SCH ×3 (07:53→17:38)
[2016-07-01] MEDS: DULoxetine HCl DR 30 MG CAP PO SCH ×2 (07:53→21:17)
[2016-07-01] MEDS: LIOTHYRONINE SODIUM 5 MCG TAB PO SCH (07:53)
[2016-07-01] MEDS: buPROPion HCL 150 MG SUSTAINED RELEASE TAB PO SCH ×2 (07:53→21:17)
[2016-07-01] MEDS: ASPIRIN EC 325 MG TABEC PO SCH (07:54)
[2016-07-01] MEDS: FUROSEMIDE 20 MG/2 ML VIAL IV PUSH SCH (07:54)
[2016-07-01] MEDS: ISOSORBIDE DINITRATE 5 MG TAB PO SCH ×3 (07:54→17:40)
[2016-07-01] MEDS: CARVEDILOL 12.5 MG TAB PO SCH ×2 (07:54→21:17)
[2016-07-01] MEDS: NS + KCL 20 MEQ INJ 1,000 ML IV SCH (07:55)
[2016-07-01 08:00] VITALS: BP 124/75; PULSE 69; RESP 18; TEMP 97.2; O2SAT 94
--- NOTE | 2016-07-01 11:37 | HHI.PR ---
Subjective Remarks sitting on the chair with no distress. afebrile. pain is fairly controlled. Objective Vitals Vital Signs Date Time Temp Pulse Resp B/P Pulse Ox O2 Delivery O2 Flow Rate FiO2 07/01/16 10:01 Room Air 07/01/16 04:00 97.2 70 16 157/63 99 07/01/16 00:00 98.2 76 18 122/66 98 06/30/16 20:30 Room Air 06/30/16 20:00 97.2 88 18 157/70 95 06/30/16 16:00 98.1 83 20 149/70 98 06/30/16 12:00 97.2 81 18 121/58 97 I/O 06/30/16 06/30/16 06/30/16 07/01/16 07/01/16 07/01/16 07:00 15:00 23:00 07:00 15:00 23:00 Intake Total 600 ml 652 ml 421 ml Output Total 0 ml Balance 600 ml 652 ml 421 ml Intake Oral 600 ml 240 ml 0 ml IV Total 412 ml 421 ml Output Urine Total 0 ml # Voids 1 2 1 # Bowel Movements 1 2 0 0 Result Diagram: 07/01/16 0528 07/01/16 0528 Imaging Last Impressions Head CT 06/20/16 0000 Signed Impressions: Service Date/Time: Monday, June 20, 2016 17:52 - CONCLUSION: Slight atrophic and small vessel ischemic changes without any evidence for acute hemorrhage or mass effect. Smith Boateng MD Chest X-Ray 06/16/16 1430 Signed Impressions: Service Date/Time: Thursday, June 16, 2016 14:53 - CONCLUSION: 1. No acute cardiopulmonary findings. Jose Rogers MD Objective Remarks GENERAL: This is a well-nourished, well-developed patient, in no apparent distress. CARDIOVASCULAR: Regular rate and regular rhythm without murmurs, gallops, or rubs. RESPIRATORY: Clear to auscultation. Breath sounds equal bilaterally. No wheezes , rales, or rhonchi. GASTROINTESTINAL: Abdomen soft, non-tender, nondistended. Normal, active bowel sounds MUSCULOSKELETAL: wounds on both legs- seem to be improving. NEURO: Alert & Oriented x4 to person, place, time, situation. Moves all ext x4 Procedures Aortogram w/ B LE angiogram L SFA DIRECTOR OF HOUSING AND ENERGY SERVICES R LEATHER SOFTENER Angioseal Debridement of B LE wounds Medications and IVs Current Medications Piperacillin Sod/ Tazobactam Sod 100 ml @ 200 mls/hr ONCE STAT IV Last administered on 06/16/16 14:55; Start 06/16/16 at 14:30; Stop 06/16/16 at 14:59 ; Status DC Vancomycin HCl/ Sodium Chloride (Vancomycin Inj/ NS 250 ml Inj) 250 ml @ 250 mls/hr ONCE STAT IV ; Start 06/16/16 at 14:30; Stop 06/16/16 at 15:29; Status Cancel Lorazepam 1 mg 1 mg ONCE ONCE IV PUSH ; Start 06/16/16 at 15:00; Stop 06/16/16 at 15:02; Status DC Sodium Chloride (NS 1000 ml Inj) 1,000 ml @ 999 mls/hr BOLUS ONCE IV Last administered on 06/16/16 15:30; Start 06/16/16 at 15:00; Stop 06/16/16 at 16:00 ; Status DC Hydromorphone HCl (Dilaudid Pf Inj) 1 mg ONCE ONCE IV PUSH Last administered on 06/16/16 15:31; Start 06/16/16 at 15:15; Stop 06/16/16 at 15:16; Status DC Ondansetron HCl (Zofran Inj) 4 mg ONCE ONCE IV PUSH Last administered on 15:31; Start 06/16/16 at 15:15; Stop 06/16/16 at 15:16; Status DC Dextrose (D50w (Vial) Inj) 25 ml UNSCH PRN IV PUSH HYPOGLYCEMIA-SEE COMMENTS; Start 06/16/16 at 16:00; Stop 06/23/16 at 17:06; Status DC Glucagon (Glucagon Inj) 1 mg UNSCH PRN OTHER HYPOGLYCEMIA-SEE COMMENTS; Start 06/16/16 at 16:00; Stop 06/23/16 at 17:06; Status DC Insulin Aspart 1 1 ACHS SLIDING SCALE SQ Last administered on 06/23/16 05:52 ; Start 06/16/16 at 16:00; Stop 06/23/16 at 17:06; Status DC Pharmacy Profile Note 0 ml @ 0 mls/hr UNSCH OTHER ; Start 06/16/16 at 16:00; Stop 06/18/16 at 19:34; Status DC Pharmacy Profile Note ([facility]) 0 ml @ 0 mls/hr UNSCH OTHER ; Start 06/16/16 at 16:00 Bupropion HCl (Wellbutrin Sr) 150 mg Q12HR PO Last administered on 07/01/16 07: 53; Start 06/16/16 at 21:00 Carvedilol (Coreg) 25 mg BID PO Last administered on 07/01/16 07:54; Start at 21:00 Duloxetine HCl (Cymbalta Dr) 30 mg BID PO Last administered on 07/01/16 07:53; Start 06/16/16 at 21:00 Fentanyl (Duragesic 50 Mcg Patch.72 Hr) 1 patch Q3D TD Last administered on 17:40; Start 06/16/16 at 17:00; Stop 06/22/16 at 16:00; Status DC Gabapentin (Neurontin) 300 mg BID PO Last administered on 07/01/16 07:53; Start 06/16/16 at 21:00 Insulin Detemir (Levemir Inj) 20 units Q12HR SQ ; Start 06/16/16 at 21:00; Stop 06/16/16 at 21:00; Status DC Isosorbide Dinitrate (Isordil) 5 mg TIDAC PO Last administered on 07/01/16 07: 54; Start 06/16/16 at 17:00 Liothyronine Sodium (Cytomel) 5 mcg DAILY PO Last administered on 07/01/16 07: 53; Start 06/17/16 at 09:00 Lactobacillus Acidophilus (Lactinex) 1 tab TID PO Last administered on 07:53; Start 06/16/16 at 18:00 Levothyroxine Sodium (Synthroid) 150 mcg DAILY@06 PO Last administered on 05:38; Start 06/17/16 at 06:00 Miscellaneous Information 1 Q3D T-DERMAL Last administered on 06/22/16 15:34; Start 06/19/16 at 17:00; Stop 06/23/16 at 21:04; Status DC Ondansetron HCl (Zofran Inj) 4 mg Q8HR PRN IV PUSH NAUSEA; Start 06/16/16 at 16 :00 Acetaminophen (Tylenol) 650 mg Q4H PRN PO FEVER; Start 06/16/16 at 16:00; Stop 06/23/16 at 17:05; Status DC Acetaminophen/ Hydrocodone Bitart (Blanchard 5-325 Mg) 1 tab Q4H PRN PO PAIN > 5 Last administered on 06/23/16 08:33; Start 06/16/16 at 16:00; Stop 06/23/16 at 17:07; Status DC Furosemide (Lasix Inj) 20 mg DAILY IV PUSH Last administered on 07/01/16 07:54 ; Start 06/17/16 at 09:00 Levothyroxine Sodium 25 mcg 25 mcg DAILY@06 PO Last administered on 07/01/16 05 :37; Start 06/17/16 at 06:00 Vancomycin HCl/ Sodium Chloride (Vancomycin Inj/ NS 500 ml Inj) 514 ml @ 250 mls/hr Q24H IV Last administered on 06/18/16 16:40; Start 06/16/16 at 17:00; Stop 06/18/16 at 19:35; Status DC Miscellaneous Information SPECIFIC LAB TO BE [facility]... ONCE ONCE XX ; Start at 16:45; Stop 06/19/16 at 16:46; Status Cancel Piperacillin Sod/ Tazobactam Sod (Zosyn 3.375 Gm Premix) 50 ml @ 100 mls/hr Q6H IV Last administered on 06/30/16 11:17; Start 06/16/16 at 21:00; Stop at 13:02; Status DC Insulin Detemir (Levemir Inj) 20 units HS SQ Last administered on 06/30/16 21: 00; Start 06/16/16 at 21:00 Losartan Potassium (Cozaar) 100 mg DAILY PO Last administered on 07/01/16 07:53 ; Start 06/17/16 at 09:00 Hydromorphone HCl (Dilaudid Pf Inj) 0.5 mg ONCE ONCE SQ ; Start 06/18/16 at 14: 00; Stop 06/18/16 at 14:01; Status Cancel Hydromorphone HCl (Dilaudid Pf Inj) 0.5 mg NOW ONCE IV Last administered on 14:45; Start 06/18/16 at 14:45; Stop 06/18/16 at 14:46; Status DC Fentanyl (Duragesic 25 Mcg Patch.72 Hr) 1 patch Q3D TD Last administered on 15:34; Start 06/22/16 at 17:00 Miscellaneous Information 1 Q3D T-DERMAL ; Start 06/24/16 at 09:45; Stop at 09:45; Status DC Haloperidol (Haldol) 2 mg HS PO Last administered on 06/30/16 22:11; Start at 21:00 Prednisone (Deltasone) 50 mg ONCE ONCE PO Last administered on 06/23/16 00:14 ; Start 06/23/16 at 01:00; Stop 06/23/16 at 01:01; Status DC Prednisone (Deltasone) 50 mg ONCE ONCE PO Last administered on 06/23/16 05:52 ; Start 06/23/16 at 07:00; Stop 06/23/16 at 07:01; Status DC Prednisone (Deltasone) 50 mg ONCE ONCE PO Last administered on 06/23/16 12:54 ; Start 06/23/16 at 13:00; Stop 06/23/16 at 13:01; Status DC Diphenhydramine HCl 50 mg 50 mg ONCE ONCE PO Last administered on 06/23/16 12 :54; Start 06/23/16 at 13:00; Stop 06/23/16 at 13:01; Status DC Potassium Chloride/Sodium Chloride (NS + KCl 20 Meq Inj) 1,000 ml @ 84 mls/hr [id number] IV Last administered on 07/01/16 07:55; Start 06/23/16 at 00:00 Heparin Sodium (Porcine) (Heparin Inj) 10,000 units STK-MED ONCE .ROUTE Last administered on 06/23/16 15:43; Start 06/23/16 at 14:35; Stop 06/23/16 at 14:36 ; Status DC Heparin Sodium (Porcine) (Heparin Inj) 10,000 units STK-MED ONCE .ROUTE ; Start 06/23/16 at 14:40; Stop 06/23/16 at 14:41; Status DC Fentanyl Citrate (fentaNYL INJ) 250 mcg STK-MED ONCE .ROUTE ; Start 06/23/16 at 14:47; Stop 06/23/16 at 14:48; Status DC Morphine Sulfate (Morphine Inj) 4 mg STK-MED ONCE .ROUTE ; Start 06/23/16 at 14: 47; Stop 06/23/16 at 14:48; Status DC Famotidine (Pepcid Inj) 20 mg STK-MED ONCE .ROUTE ; Start 06/23/16 at 14:50; Stop 06/23/16 at 14:51; Status DC Diphenhydramine HCl (Benadryl Inj) 50 mg STK-MED ONCE .ROUTE ; Start 06/23/16 at 14:51; Stop 06/23/16 at 14:52; Status DC Methylprednisolone Sodium Succinate (SoluMEDROL INJ) 125 mg STK-MED ONCE .ROUTE ; Start 06/23/16 at 14:56; Stop 06/23/16 at 14:57; Status DC Iohexol (OMNIPAQUE 300 INJ (Rad CT)) 100 ml STK-MED ONCE OTHER Last administered on 06/23/16 15:43; Start 06/23/16 at 15:43; Stop 06/23/16 at 15:48 ; Status DC Aspirin (Ecotrin Ec) 325 mg DAILY PO Last administered on 07/01/16 07:54; Start 06/24/16 at 09:00 Acetaminophen (Tylenol) 650 mg Q4H PRN PO TEMPERATURE > 101 F; Start 06/23/16 at 17:00 Magnesium Hydroxide (Milk Of Magnesia Liq) 30 ml DAILY PRN PO CONSTIPATION; Start 06/23/16 at 17:00 Oxycodone/ Acetaminophen (Percocet 5-325 Mg) 1 tab Q4H PRN PO PAIN SCALE 1 TO 5; Start 06/23/16 at 17:00 Oxycodone/ Acetaminophen (Percocet 10-325 Mg) 1 tab Q4H PRN PO PAIN SCALE 6 TO 10 Last administered on 07/01/16 05:38; Start 06/23/16 at 17:00 Morphine Sulfate (Morphine Inj) 4 mg Q4H PRN IV PUSH BREAKTHROUGH PAIN Last administered on 06/30/16 11:15; Start 06/23/16 at 17:00 Miscellaneous Information (Post-op Orders (for Pharmacy)) STAT ONCE OTHER ; Start 06/23/16 at 17:00; Stop 06/23/16 at 17:03; Status DC Insulin Human Regular (NovoLIN R SUPPLEMENTAL SCALE) 1 Q6HR SQ Last administered on 06/30/16 23:46; Start 06/23/16 at 18:00 Dextrose (D50w (Vial) Inj) 25 ml UNSCH PRN IV PUSH HYPOGLYCEMIA-SEE COMMENTS Last administered on 07/01/16 05:45; Start 06/23/16 at 17:00 Glucagon (Glucagon Inj) 1 mg UNSCH PRN OTHER HYPOGLYCEMIA-SEE COMMENTS; Start 06/23/16 at 17:00 Miscellaneous Information ALL NURSING DEPARTME... UNSCH PRN XX SEE LABEL COMMENTS; Start 06/23/16 at 16:59; Stop 06/24/16 at 16:58; Status DC Miscellaneous Information 1 Q3D T-DERMAL Last administered on 06/28/16 16:56; Start 06/25/16 at 17:00 Propofol (Diprivan 200 Mg/20 ml Inj) 200 mg STK-MED ONCE IV ; Start 06/23/16 at 12:01; Stop 06/24/16 at 12:01; Status DC Neostigmine Methylsulfate (Prostigmin Inj) 3 mg STK-MED ONCE IV ; Start at 12:01; Stop 06/24/16 at 12:01; Status DC Ondansetron HCl (Zofran Inj) 4 mg STK-MED ONCE IV PUSH ; Start 06/23/16 at 12:01 ; Stop 06/24/16 at 12:01; Status DC A/P Assessment and Plan - cellulitis of both legs with bilateral lower extremity wounds with history of PVD s/p Aortogram w/ B LE angiogram/L SFA DIRECTOR OF HOUSING AND ENERGY SERVICES/R LEATHER SOFTENER Angioseal and Debridement of B LE wounds ID, vascular surgery and wound care following. antibiotics were discontinued per ID and vascular surgery. -confusional episode with reported hallucinations- -- now has resolved- neurology and psych consulted. decreased the dose of Fentanyl patch . -hyponatremia; seems to be chronic- asymptomatic- improved. -anemia of chronic disease- H/H fairly stable.will monitor -diabetes mellitus with hypoglycemic episode- will decrease long acting insulin - accu-check with SSI -cardiomyopathy; resumed BB, nitrate and diuretic -chronic renal insufficiency; stable- will monitor the renal function for now -hypothyroidism; resumed home meds Discharge Planning dc planning in progress. d/w the case management. possible inpatient rehab? Conrad Clancy MD Jul 01, 2016 11:37
[2016-07-01 12:00] VITALS: BP 104/73; PULSE 85; RESP 18; TEMP 97.9; O2SAT 98
--- NOTE | 2016-07-01 14:42 | MP ---
cc: DANNY TAYLOR MD Corrected Copy: 07/02/16 DATE OF SURGERY: 06/23/2016 PREOPERATIVE DIAGNOSIS 1. Bilateral extremity extensive tissue loss. 2. Peripheral arterial occlusive disease. POSTOPERATIVE DIAGNOSIS 1. Bilateral extremity extensive tissue loss. 2. Peripheral arterial occlusive disease. PROCEDURE 1. Aortogram with bilateral lower extremity angiogram. 2. Left SFA angioplasty with 5 mm balloon. 3. Left leg debridement of skin and subcutaneous tissue totaling 200 square centimeters. 4. Right leg debridement including skin and subcutaneous tissue totaling 40 square centimeters. BILLING CHECKER SURGEON Danny Taylor RESIDENT SURGEON None. ANESTHESIA General. INDICATION Ms. Lemos is a lady with bilateral lower extremity extensive tissue loss and non-palpable pulses. She is taken to the operating room for angiographic evaluation and potential treatment. There was no prior catheterization imaging available for my review at the time of my angiogram. I offered her leg debridement. She accepted and then we proceeded. DESCRIPTION OF PROCEDURE Informed consent was obtained from the patient. She was taken to the operating room and placed supine on the operating table. An appropriate timeout was taken to ensure the patient's identity, operative site and planned procedure. She received no antibiotics. This is a clean procedure without planned implantation of any foreign object. Everyone on the room agreed with the timeout and we proceeded. Of note, she had received steroid prep for a presumed contrast allergy. Her bilateral groins and lower extremities were prepped and draped. A 21-gauge micropuncture needle was used to access the right common femoral artery. This was exchanged using a Seldinger technique for a micropuncture sheath through which a 0.035 Glidewire was introduced. The micropuncture sheath was exchanged for a 4-Argentine sheath and a VCF catheter was placed over the wire into the sheath and aortogram and pelvic arteriograms obtained. The Glidewire was reintroduced and navigated down to the left common femoral artery. The VCF catheter was advanced over this and a left lower extremity arteriogram was obtained. The patient was systemically heparinized with 5000 units of IV heparin. A Christnesen wire was then introduced and the VCF catheter was removed. The 5-Argentine sheath was removed and a 6-Argentine, 55 cm Seymour sheath was introduced. A CXI catheter was placed over the wire and the wire was exchanged for a GAS [employer] SPECIALIST wire. Using the [employer] SPECIALIST and CXI we were able to navigate past the SFA occlusion and indeed into the popliteal artery. Angiogram confirmed we were intraluminal. The Christensen was reintroduced. The CXI catheter was removed, and a 5 x 200 balloon was used to angioplasty the SFA. The completion angiogram showed excellent result and extravasation. The wire, catheter and sheath were removed. A short 6-Argentine sheath was introduced and a right lower extremity arteriogram was obtained through the sheath. The sheath was removed and the groin was closed with Angio-Seal. The interpretation of images showed that the patient had patent infrarenal aorta, common iliac arteries, hypogastric artery and external iliac artery arteries bilaterally. The left common femoral artery and profunda are patent. The SFA is occluded and reconstitutes at the mid to distal portion of it via profunda collaterals. There is a patent popliteal artery and single vessel with an anterior tibial artery dominant to the dorsalis pedis. After recanalizing the SFA there is in-line flow from the aorta all the way down to the foot. On the right hand side there is a patent but diseased right SFA as well as popliteal artery and single vessel runoff to the foot. We then turned our attention towards the skin debridement. The skin and subcutaneous tissue of both legs were debrided with a 10 blade and this was an excisional debridement of about 200 square centimeters on the left and 40 square centimeters on the right. Hemostasis was achieved with electrocautery. The legs were wrapped with Xeroform, Kerlix and Colby bandages. The patient was then awoken from anesthesia and taken to the recovery room in stable condition. I was present and scrubbed and performed the entire procedure. MD MIAN Mensah/AYLIN /7:31 PM /9:37 AM JAY
[2016-07-01] MEDS: MORPHINE SULFATE 4 MG/ML INJ IV PUSH PRN (15:41)
[2016-07-01 16:00] VITALS: BP 135/70; PULSE 74; RESP 18; TEMP 98.7; O2SAT 100
[2016-07-01] MEDS: REMOVE OLD PATCH T-DERMAL SCH (16:36)
[2016-07-01] MEDS: fentaNYL 25 MCG/HR PATCH TD SCH (16:36)
[2016-07-01 20:00] VITALS: BP 157/67; PULSE 85; RESP 18; TEMP 98.2; O2SAT 97
[2016-07-01] MEDS: HALOPERIDOL 2 MG TAB PO SCH ×2 (21:00→21:17)
[2016-07-01] MEDS: INSULIN DETEMIR 100 UNITS/ML VIAL SQ SCH (21:17)
[2016-07-02] VITALS: BP 121/60; PULSE 69; RESP 16; TEMP 98.1; O2SAT 96
[2016-07-02] MEDS: MORPHINE SULFATE 4 MG/ML INJ IV PUSH PRN ×2 (03:17→12:21)
[2016-07-02 04:00] VITALS: BP 136/87; PULSE 108; RESP 16; TEMP 97.3; O2SAT 96
[2016-07-02] MEDS: INSULIN NovoLIN REGULAR SUPPLEMENTAL SCALE SQ SCH ×4 (04:52→23:25)
[2016-07-02] MEDS: LEVOTHYROXINE SODIUM 25 MCG TAB PO SCH (04:54)
[2016-07-02] MEDS: LEVOTHYROXINE SODIUM 150 MCG TAB PO SCH (04:54)
[2016-07-02] MEDS: ASPIRIN EC 325 MG TABEC PO SCH (07:58)
[2016-07-02] MEDS: GABAPENTIN 300 MG CAP PO SCH ×2 (07:58→20:25)
[2016-07-02] MEDS: LIOTHYRONINE SODIUM 5 MCG TAB PO SCH (07:58)
[2016-07-02] MEDS: LOSARTAN 50 MG TAB PO SCH (07:58)
[2016-07-02] MEDS: CARVEDILOL 12.5 MG TAB PO SCH ×2 (07:58→20:23)
[2016-07-02] MEDS: DULoxetine HCl DR 30 MG CAP PO SCH ×2 (07:58→20:25)
[2016-07-02] MEDS: FUROSEMIDE 20 MG TAB PO SCH (07:58)
[2016-07-02] MEDS: buPROPion HCL 150 MG SUSTAINED RELEASE TAB PO SCH ×2 (07:58→20:28)
[2016-07-02] MEDS: ISOSORBIDE DINITRATE 5 MG TAB PO SCH ×3 (07:58→16:14)
[2016-07-02] MEDS: LACTOBACILLUS ACIDOPHILUS TAB PO SCH ×3 (07:59→16:15)
[2016-07-02 08:03] VITALS: BP 153/91; PULSE 77; RESP 19; TEMP 97.5; O2SAT 94
[2016-07-02] MEDS: oxyCODONE/ACETAMINOPHEN 10 MG/325 MG TAB PO PRN (10:08)
--- NOTE | 2016-07-02 11:56 | HHI.PR ---
Subjective Remarks resting comfortably with no distress. no fever. pain is fairly controlled. no new complaints. Objective Vitals Vital Signs Date Time Temp Pulse Resp B/P Pulse Ox O2 Delivery O2 Flow Rate FiO2 07/02/16 10:23 Room Air 07/02/16 08:03 97.5 77 19 153/91 94 07/02/16 04:00 97.3 108 16 136/87 96 07/02/16 00:00 98.1 69 16 121/60 96 07/01/16 20:00 98.2 85 18 157/67 97 07/01/16 20:00 Room Air 07/01/16 16:00 98.7 74 18 135/70 100 07/01/16 12:00 97.9 85 18 104/73 98 I/O 07/01/16 07/01/16 07/01/16 07/02/16 07/02/16 07/02/16 07:00 15:00 23:00 07:00 15:00 23:00 Intake Total 421 ml 360 ml 2 ml 120 ml Output Total 0 ml 0 ml Balance 421 ml 360 ml 2 ml 120 ml Intake Oral 0 ml 360 ml 120 ml IV Total 421 ml 2 ml Output Urine Total 0 ml 0 ml # Voids 2 # Bowel Movements 0 2 0 Result Diagram: 07/01/16 0528 07/01/16 0528 Imaging Last Impressions Head CT 06/20/16 0000 Signed Impressions: Service Date/Time: Monday, June 20, 2016 17:52 - CONCLUSION: Slight atrophic and small vessel ischemic changes without any evidence for acute hemorrhage or mass effect. KBailee Boateng MD Chest X-Ray 06/16/16 1430 Signed Impressions: Service Date/Time: Thursday, June 16, 2016 14:53 - CONCLUSION: 1. No acute cardiopulmonary findings. Jose Rogers MD Objective Remarks GENERAL: This is a well-nourished, well-developed patient, in no apparent distress. CARDIOVASCULAR: Regular rate and regular rhythm without murmurs, gallops, or rubs. RESPIRATORY: Clear to auscultation. Breath sounds equal bilaterally. No wheezes , rales, or rhonchi. GASTROINTESTINAL: Abdomen soft, non-tender, nondistended. Normal, active bowel sounds MUSCULOSKELETAL: wounds on both legs- seem to be improving. NEURO: Alert & Oriented x4 to person, place, time, situation. 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 Angioseal Debridement of B LE wounds Medications and IVs Current Medications Piperacillin Sod/ Tazobactam Sod 100 ml @ 200 mls/hr ONCE STAT IV Last administered on 06/16/16 14:55; Start 06/16/16 at 14:30; Stop 06/16/16 at 14:59 ; Status DC Vancomycin HCl/ Sodium Chloride (Vancomycin Inj/ NS 250 ml Inj) 250 ml @ 250 mls/hr ONCE STAT IV ; Start 06/16/16 at 14:30; Stop 06/16/16 at 15:29; Status Cancel Lorazepam 1 mg 1 mg ONCE ONCE IV PUSH ; Start 06/16/16 at 15:00; Stop 06/16/16 at 15:02; Status DC Sodium Chloride (NS 1000 ml Inj) 1,000 ml @ 999 mls/hr BOLUS ONCE IV Last administered on 06/16/16 15:30; Start 06/16/16 at 15:00; Stop 06/16/16 at 16:00 ; Status DC Hydromorphone HCl (Dilaudid Pf Inj) 1 mg ONCE ONCE IV PUSH Last administered on 06/16/16 15:31; Start 06/16/16 at 15:15; Stop 06/16/16 at 15:16; Status DC Ondansetron HCl (Zofran Inj) 4 mg ONCE ONCE IV PUSH Last administered on 15:31; Start 06/16/16 at 15:15; Stop 06/16/16 at 15:16; Status DC Dextrose (D50w (Vial) Inj) 25 ml UNSCH PRN IV PUSH HYPOGLYCEMIA-SEE COMMENTS; Start 06/16/16 at 16:00; Stop 06/23/16 at 17:06; Status DC Glucagon (Glucagon Inj) 1 mg UNSCH PRN OTHER HYPOGLYCEMIA-SEE COMMENTS; Start 06/16/16 at 16:00; Stop 06/23/16 at 17:06; Status DC Insulin Aspart 1 1 ACHS SLIDING SCALE SQ Last administered on 06/23/16 05:52 ; Start 06/16/16 at 16:00; Stop 06/23/16 at 17:06; Status DC Pharmacy Profile Note 0 ml @ 0 mls/hr UNSCH OTHER ; Start 06/16/16 at 16:00; Stop 06/18/16 at 19:34; Status DC Pharmacy Profile Note ([facility]) 0 ml @ 0 mls/hr UNSCH OTHER ; Start 06/16/16 at 16:00 Bupropion HCl (Wellbutrin Sr) 150 mg Q12HR PO Last administered on 07/02/16 07: 58; Start 06/16/16 at 21:00 Carvedilol (Coreg) 25 mg BID PO Last administered on 07/02/16 07:58; Start at 21:00 Duloxetine HCl (Cymbalta Dr) 30 mg BID PO Last administered on 07/02/16 07:58; Start 06/16/16 at 21:00 Fentanyl (Duragesic 50 Mcg Patch.72 Hr) 1 patch Q3D TD Last administered on 17:40; Start 06/16/16 at 17:00; Stop 06/22/16 at 16:00; Status DC Gabapentin (Neurontin) 300 mg BID PO Last administered on 07/02/16 07:58; Start 06/16/16 at 21:00 Insulin Detemir (Levemir Inj) 20 units Q12HR SQ ; Start 06/16/16 at 21:00; Stop 06/16/16 at 21:00; Status DC Isosorbide Dinitrate (Isordil) 5 mg TIDAC PO Last administered on 07/02/16 07: 58; Start 06/16/16 at 17:00 Liothyronine Sodium (Cytomel) 5 mcg DAILY PO Last administered on 07/02/16 07: 58; Start 06/17/16 at 09:00 Lactobacillus Acidophilus (Lactinex) 1 tab TID PO Last administered on 07:59; Start 06/16/16 at 18:00 Levothyroxine Sodium (Synthroid) 150 mcg DAILY@06 PO Last administered on 04:54; Start 06/17/16 at 06:00 Miscellaneous Information 1 Q3D T-DERMAL Last administered on 06/22/16 15:34; Start 06/19/16 at 17:00; Stop 06/23/16 at 21:04; Status DC Ondansetron HCl (Zofran Inj) 4 mg Q8HR PRN IV PUSH NAUSEA; Start 06/16/16 at 16 :00 Acetaminophen (Tylenol) 650 mg Q4H PRN PO FEVER; Start 06/16/16 at 16:00; Stop 06/23/16 at 17:05; Status DC Acetaminophen/ Hydrocodone Bitart ([place] 5-325 Mg) 1 tab Q4H PRN PO PAIN > 5 Last administered on 06/23/16 08:33; Start 06/16/16 at 16:00; Stop 06/23/16 at 17:07; Status DC Furosemide (Lasix Inj) 20 mg DAILY IV PUSH Last administered on 07/01/16 07:54 ; Start 06/17/16 at 09:00; Stop 07/01/16 at 11:39; Status DC Levothyroxine Sodium 25 mcg 25 mcg DAILY@06 PO Last administered on 07/02/16 04 :54; Start 06/17/16 at 06:00 Vancomycin HCl/ Sodium Chloride (Vancomycin Inj/ NS 500 ml Inj) 514 ml @ 250 mls/hr Q24H IV Last administered on 06/18/16 16:40; Start 06/16/16 at 17:00; Stop 06/18/16 at 19:35; Status DC Miscellaneous Information SPECIFIC LAB TO BE [facility]... ONCE ONCE XX ; Start at 16:45; Stop 06/19/16 at 16:46; Status Cancel Piperacillin Sod/ Tazobactam Sod (Zosyn 3.375 Gm Premix) 50 ml @ 100 mls/hr Q6H IV Last administered on 06/30/16 11:17; Start 06/16/16 at 21:00; Stop at 13:02; Status DC Insulin Detemir (Levemir Inj) 20 units HS SQ Last administered on 06/30/16 21: 00; Start 06/16/16 at 21:00; Stop 07/01/16 at 11:36; Status DC Losartan Potassium (Cozaar) 100 mg DAILY PO Last administered on 07/02/16 07:58 ; Start 06/17/16 at 09:00 Hydromorphone HCl (Dilaudid Pf Inj) 0.5 mg ONCE ONCE SQ ; Start 06/18/16 at 14: 00; Stop 06/18/16 at 14:01; Status Cancel Hydromorphone HCl (Dilaudid Pf Inj) 0.5 mg NOW ONCE IV Last administered on 14:45; Start 06/18/16 at 14:45; Stop 06/18/16 at 14:46; Status DC Fentanyl (Duragesic 25 Mcg Patch.72 Hr) 1 patch Q3D TD Last administered on 15:34; Start 06/22/16 at 17:00 Miscellaneous Information 1 Q3D T-DERMAL ; Start 06/24/16 at 09:45; Stop at 09:45; Status DC Haloperidol (Haldol) 2 mg HS PO Last administered on 06/30/16 22:11; Start at 21:00 Prednisone (Deltasone) 50 mg ONCE ONCE PO Last administered on 06/23/16 00:14 ; Start 06/23/16 at 01:00; Stop 06/23/16 at 01:01; Status DC Prednisone (Deltasone) 50 mg ONCE ONCE PO Last administered on 06/23/16 05:52 ; Start 06/23/16 at 07:00; Stop 06/23/16 at 07:01; Status DC Prednisone (Deltasone) 50 mg ONCE ONCE PO Last administered on 06/23/16 12:54 ; Start 06/23/16 at 13:00; Stop 06/23/16 at 13:01; Status DC Diphenhydramine HCl 50 mg 50 mg ONCE ONCE PO Last administered on 06/23/16 12 :54; Start 06/23/16 at 13:00; Stop 06/23/16 at 13:01; Status DC Potassium Chloride/Sodium Chloride (NS + KCl 20 Meq Inj) 1,000 ml @ 84 mls/hr [id number] IV Last administered on 07/01/16 07:55; Start 06/23/16 at 00:00; Stop 07/01/16 at 11:39; Status DC Heparin Sodium (Porcine) (Heparin Inj) 10,000 units STK-MED ONCE .ROUTE Last administered on 06/23/16 15:43; Start 06/23/16 at 14:35; Stop 06/23/16 at 14:36 ; Status DC Heparin Sodium (Porcine) (Heparin Inj) 10,000 units STK-MED ONCE .ROUTE ; Start 06/23/16 at 14:40; Stop 06/23/16 at 14:41; Status DC Fentanyl Citrate (fentaNYL INJ) 250 mcg STK-MED ONCE .ROUTE ; Start 06/23/16 at 14:47; Stop 06/23/16 at 14:48; Status DC Morphine Sulfate (Morphine Inj) 4 mg STK-MED ONCE .ROUTE ; Start 06/23/16 at 14: 47; Stop 06/23/16 at 14:48; Status DC Famotidine (Pepcid Inj) 20 mg STK-MED ONCE .ROUTE ; Start 06/23/16 at 14:50; Stop 06/23/16 at 14:51; Status DC Diphenhydramine HCl (Benadryl Inj) 50 mg STK-MED ONCE .ROUTE ; Start 06/23/16 at 14:51; Stop 06/23/16 at 14:52; Status DC Methylprednisolone Sodium Succinate (SoluMEDROL INJ) 125 mg STK-MED ONCE .ROUTE ; Start 06/23/16 at 14:56; Stop 06/23/16 at 14:57; Status DC Iohexol (OMNIPAQUE 300 INJ (Rad CT)) 100 ml STK-MED ONCE OTHER Last administered on 06/23/16 15:43; Start 06/23/16 at 15:43; Stop 06/23/16 at 15:48 ; Status DC Aspirin (Ecotrin Ec) 325 mg DAILY PO Last administered on 07/02/16 07:58; Start 06/24/16 at 09:00 Acetaminophen (Tylenol) 650 mg Q4H PRN PO TEMPERATURE > 101 F; Start 06/23/16 at 17:00 Magnesium Hydroxide (Milk Of Magnesia Liq) 30 ml DAILY PRN PO CONSTIPATION; Start 06/23/16 at 17:00 Oxycodone/ Acetaminophen (Percocet 5-325 Mg) 1 tab Q4H PRN PO PAIN SCALE 1 TO 5; Start 06/23/16 at 17:00 Oxycodone/ Acetaminophen (Percocet 10-325 Mg) 1 tab Q4H PRN PO PAIN SCALE 6 TO 10 Last administered on 07/02/16 10:08; Start 06/23/16 at 17:00 Morphine Sulfate (Morphine Inj) 4 mg Q4H PRN IV PUSH BREAKTHROUGH PAIN Last administered on 07/02/16 03:17; Start 06/23/16 at 17:00 Miscellaneous Information (Post-op Orders (for Pharmacy)) STAT ONCE OTHER ; Start 06/23/16 at 17:00; Stop 06/23/16 at 17:03; Status DC Insulin Human Regular (NovoLIN R SUPPLEMENTAL SCALE) 1 Q6HR SQ Last administered on 07/01/16 23:33; Start 06/23/16 at 18:00 Dextrose (D50w (Vial) Inj) 25 ml UNSCH PRN IV PUSH HYPOGLYCEMIA-SEE COMMENTS Last administered on 07/01/16 05:45; Start 06/23/16 at 17:00 Glucagon (Glucagon Inj) 1 mg UNSCH PRN OTHER HYPOGLYCEMIA-SEE COMMENTS; Start 06/23/16 at 17:00 Miscellaneous Information ALL NURSING DEPARTME... UNSCH PRN XX SEE LABEL COMMENTS; Start 06/23/16 at 16:59; Stop 06/24/16 at 16:58; Status DC Miscellaneous Information 1 Q3D T-DERMAL Last administered on 06/28/16 16:56; Start 06/25/16 at 17:00 Propofol (Diprivan 200 Mg/20 ml Inj) 200 mg STK-MED ONCE IV ; Start 06/23/16 at 12:01; Stop 06/24/16 at 12:01; Status DC Neostigmine Methylsulfate (Prostigmin Inj) 3 mg STK-MED ONCE IV ; Start at 12:01; Stop 06/24/16 at 12:01; Status DC Ondansetron HCl (Zofran Inj) 4 mg STK-MED ONCE IV PUSH ; Start 06/23/16 at 12:01 ; Stop 06/24/16 at 12:01; Status DC Insulin Detemir (Levemir Inj) 15 units HS SQ Last administered on 07/01/16 21: 17; Start 07/01/16 at 21:00 Furosemide (Lasix) 20 mg DAILY PO Last administered on 07/02/16 07:58; Start at 09:00 A/P Assessment and Plan - cellulitis of both legs with bilateral lower extremity wounds with history of PVD s/p Aortogram w/ B LE angiogram/L SFA RECREATION 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 antibiotics were discontinued per ID and vascular surgery. -confusional episode with reported hallucinations- -- now has resolved- neurology and psych consulted. decreased the dose of Fentanyl patch . -hyponatremia; seems to be chronic- asymptomatic- improved. -anemia of chronic disease- H/H fairly stable.will monitor -diabetes mellitus with no further hypoglycemic episodes- continue long acting insulin- accu-check with SSI -cardiomyopathy; resumed BB, nitrate and diuretic -chronic renal insufficiency; stable- will monitor the renal function for now -hypothyroidism; resumed home meds Discharge Planning d/w case management. possible dc to [facility] today. see med list. f/u; pcp, wound care and vascular surgery. time spent 35 min. Conrad Clancy MD Jul 02, 2016 11:56
[2016-07-02] MEDS ORDERED: Aspirin Ec PO (11:58)
[2016-07-02] MEDS ORDERED: LEVEMIR SQ (11:58)
--- NOTE | 2016-07-02 11:59 | HHI.DCPOC ---
Discharge Care Plan Diagnosis: (1) Cellulitis of left lower extremity (2) DM (diabetes mellitus) type II uncontrolled, periph vascular disorder Your Health Problems Are: Inflammation Swelling Chronic Pain Fluctuating Blood Sugars Goals to Promote Your Health * To prevent worsening of your condition and complications * To maintain your health at the optimal level Directions to Meet Your Goals Take your medications as prescribed Follow your dietary instruction Follow activity as directed Keep your appointments as scheduled Take your immunizations and boosters as scheduled If your symptoms worsen call your PCP, if no PCP go to Urgent Care Center or Emergency Room Smoking is Dangerous to Your Health. Avoid second hand smoke Call the 24-hour hour crisis hotline for domestic abuse at Conrad Clancy MD Jul 02, 2016 11:59
[2016-07-02 12:23] VITALS: BP 104/52; PULSE 76; RESP 19; TEMP 97.7; O2SAT 94
[2016-07-02] MEDS ORDERED: ACETAMINOPHEN/HYDROcodone 325 MG/7.5 MG TAB PO PRN (13:30)
[2016-07-02 16:03] VITALS: BP 105/51; PULSE 83; RESP 20; TEMP 98.5; O2SAT 95
--- NOTE | 2016-07-02 16:04 | HHI.DS ---
Discharge Summary Admission Date Jun 16, 2016 at 15:39 Discharge Date: Jul 02, 2016 Admitting Diagnosis left leg cellulitis/sepsis/left leg arterial occlusion (1) Cellulitis of left lower extremity ICD Code: L03.116 Diagnosis: Principal (2) PVD (peripheral vascular disease) ICD Code: I73.9 Diagnosis: Principal Procedures Aortogram w/ B LE angiogram L SFA GIS DEVELOPER R FLAKEBOARD LINE TENDER Angioseal Debridement of B LE wounds Brief History - From Admission patient is a 61 y/o female, known to me from previous admission, with history of cellulitis of legs, PVD, diabetes and cardiomyopathy presented to ER with worsening pain and erythema over both legs. she denies any fever, chills or night sweats. she says that she's supposed to see the vascular surgery as outpatient follow-up. she says that the pain got worse to the extent that she wasn't able to walk. CBC/BMP: 07/01/16 0528 07/01/16 0528 Significant Findings Laboratory Tests Test 07/01/16 05:28 Red Blood Count 3.50 MIL/MM3 (4.00-5.30) Hemoglobin 8.6 GM/DL (11.6-15.3) Hematocrit 27.4 % (35.0-46.0) Mean Corpuscular Volume 78.1 FL (80.0-100.0) Mean Corpuscular Hemoglobin 24.5 PG (27.0-34.0) Mean Corpuscular Hemoglobin 31.3 % Concent (32.0-36.0) Red Cell Distribution Width 17.3 % (11.6-17.2) Mean Platelet Volume 6.9 FL (7.0-11.0) Neutrophils (%) (Auto) 70.5 % (16.0-70.0) Monocytes (%) (Auto) 9.7 % (0.0-8.0) Monocytes # (Auto) 1.0 TH/MM3 (0-0.9) Blood Urea Nitrogen 20 MG/DL (7-18) Creatinine 1.42 MG/DL (0.50-1.00) Estimat Glomerular Filtration 37 ML/MIN (>89) Rate Random Glucose 43 MG/DL (74-106) Albumin 2.2 GM/DL (3.4-5.0) Imaging Last Impressions Head CT 06/20/16 0000 Signed Impressions: Service Date/Time: Monday, June 20, 2016 17:52 - CONCLUSION: Slight atrophic and small vessel ischemic changes without any evidence for acute hemorrhage or mass effect. Smith Boateng MD Chest X-Ray 06/16/16 1430 Signed Impressions: Service Date/Time: Thursday, June 16, 2016 14:53 - CONCLUSION: 1. No acute cardiopulmonary findings. Jose Rogers MD PE at Discharge GENERAL: This is a well-nourished, well-developed patient, in no apparent distress. CARDIOVASCULAR: Regular rate and regular rhythm without murmurs, gallops, or rubs. RESPIRATORY: Clear to auscultation. Breath sounds equal bilaterally. No wheezes , rales, or rhonchi. GASTROINTESTINAL: Abdomen soft, non-tender, nondistended. Normal, active bowel sounds MUSCULOSKELETAL: wounds on both legs- seem to be improving. NEURO: Alert & Oriented x4 to person, place, time, situation. Moves all ext x4 Hospital Course - cellulitis of both legs with bilateral lower extremity wounds with history of PVD s/p Aortogram w/ B LE angiogram/L SFA GIS DEVELOPER/R FLAKEBOARD LINE TENDER Angioseal and Debridement of B LE wounds ID, vascular surgery and wound care following. antibiotics were discontinued per ID and vascular surgery. -confusional episode with reported hallucinations- -- now has resolved- neurology and psych consulted. decreased the dose of Fentanyl patch . -hyponatremia; seems to be chronic- asymptomatic- improved. -anemia of chronic disease- H/H fairly stable.will monitor -diabetes mellitus with no further hypoglycemic episodes- continue long acting insulin- accu-check with SSI -cardiomyopathy; resumed BB, nitrate and diuretic -chronic renal insufficiency; stable- will monitor the renal function for now -hypothyroidism; resumed home meds Pt Condition on Discharge: Fair Discharge Disposition: Rehab Inpatient Discharge Time: > 30 minutes Discharge Instructions DIET: Follow Instructions for: Heart Healthy Diet, Diabetic Diet Activities you can perform: Regular-No Restrictions Follow up Referrals: PCP Follow-up Vascular Surgery [facility] New Medications: Fentanyl Patch 72 HR (Duragesic Patch 72 HR) 25 Mcg/Hr Patch 1 PATCH TD Q3D Pain Management #2 Ref 0 PATCH ([Aspirin Ec]) 325 MG TABEC 325 MG PO DAILY pvd Days 30 Ref 0 TAB.EC Changed Medications: Insulin Detemir Inj (Levemir Inj) 1,000 unit/ 10 ML Vial 15 UNITS SQ HS Do not mix with any other Insulin. Blood Sugar Management Days 30 Ref 0 VIAL (Changed from: 20 UNITS) Oxycodone-Acetaminophen (Oxycodone-Acetaminophen) 5-325 mg Tab 1 TAB PO Q4H PRN pain #15 Ref 0 TAB (Changed from: 10; Refills: ) Continued Medications: Bisacodyl Supp (Dulcolax Supp) 10 Mg Supp 10 MG RECTAL DAILY PRN IF NO BM 1 DAY AFTER MOM #12 Ref 0 SUPP Bupropion HCl ER 12 HR (Wellbutrin SR 12 HR) 150 Mg Tab 150 MG PO Q12HR Control Depression Ref 0 TAB Carvedilol (Carvedilol) 25 Mg Tab 25 MG PO BID #60 Ref 0 TAB Clonazepam (Clonazepam) 0.5 Mg Tab 0.5 MG PO Q8HR PRN ANXIETY #15 Ref 0 TAB (This prescription has been renewed) Duloxetine DR (Cymbalta DR) 30 Mg Capdr 30 MG PO Q12HR #30 Ref 0 CAP Furosemide (Lasix) 20 Mg Tab 20 MG PO DAILY #30 Ref 0 TAB Gabapentin (Neurontin) 300 Mg Cap 300 MG PO BID neuropathy #60 CAP Glucagon (Rdna) Inj Kit (Glucagen Hypokit Inj Kit) 1 Mg Kit 1 MG IM ONCE PRN DM, IF BS <50 #1 Ref 0 KIT Isosorbide Dinitrate (Isosorbide Dinitrate) 5 Mg Tab 5 MG PO Q8HR Lactobacillus Acidophilus (Lactinex) 1 Chew 1 TAB CHEW TID Nutritional Supplement #90 Ref 0 TAB Levothyroxine (Levothyroxine) 175 Mcg Tab 175 MCG PO DAILY TAB Liothyronine (Liothyronine) 5 Mcg Tab 5 MCG PO DAILY Thyroid Supplement #30 Ref 0 TAB Losartan (Losartan) 100 Mg Tab 100 MG PO DAILY Blood Pressure Management #30 Ref 0 TAB Multiple Vitamins W/ Minerals (Thera-M) 1 Tab 1 TAB PO DAILY Nutritional Supplement Ref 0 TAB Sodium Chloride (Sodium Chloride) 1 Gm Tab 1 GM PO DAILY Electrolyte Replacement Ref 0 TAB Discontinued Medications: Doxycycline Hyclate (Vibramycin) 100 Mg Cap 100 MG PO BID BLE INFECTION Ref 0 CAP Fentanyl Patch 72 HR (Duragesic Patch 72 HR) 50 Mcg/Hr Patch 1 PATCH TD Q3D Pain Management #2 PATCH Insulin Lispro (Human) Inj (Humalog Inj) 1,000 Unit/10 Ml Vial 5-25 UNITS SQ HS Inject per sliding scale: sugars 0-70,(0)units; sugars 150-199 ,(5)units; sugars 200-249,(10)units; sugars 250-299,(15)units; sugars 300-349,( 20)units; sugars more than 349,(25)units. Blood Sugar Management #1 Ref 0 VIAL Insulin Lispro (Human) Inj (Humalog Inj) 1,000 Unit/10 Ml Vial 2-10 UNITS SQ Q6HR Sugars 151-200,(2)units; sugars 201-250,(4)units; sugars 251- 300,(6)units; sugars 301-350,(8)units; sugars 351-400,(10)units. Greater than 400 call PRN ELEVATED BS #1 Ref 0 VIAL Magnesium Citrate Liq (Citroma Liq) 300 Ml Liq 296 ML PO DAILY PRN IF NO RESULT FROM FLEETS #1 Ref 0 BOTTLE Magnesium Hydroxide Liq (Milk of Magnesia Liq) 400 Mg/5 Ml Susp 30 ML PO Q24HR PRN IF NO BM WITHIN 3 DAYS #1 Ref 0 BOTTLE Oxycodone-Acetaminophen (Oxycodone-Acetaminophen) 10-325 mg Tab 1 TAB PO Q4HR PRN pain #15 Ref 0 TAB Sodium Hypochlorite Topical (Dakins Solution Quarter Strength Topical) 0.125% Soln 1 APPLIC TOPICAL DAILY LEG /FEET WOUNDS Ref 0 ML Sodium Phosphates Rectal (Fleet Enema Rectal) 7-19 Gm/118 Ml Enem 118 ML RECTAL DAILY PRN IF NO RESULT 1 DAY AFTER SUPP Ref 0 BOTTLE Conrad Clancy MD Jul 02, 2016 16:04
[2016-07-02] MEDS: ACETAMINOPHEN/HYDROcodone 325 MG/7.5 MG TAB PO PRN ×2 (16:19→20:24)
[2016-07-02 20:00] VITALS: BP 132/63; PULSE 76; RESP 15; TEMP 98.3; O2SAT 96
[2016-07-02] MEDS: HALOPERIDOL 2 MG TAB PO SCH (20:25)
[2016-07-02] MEDS: INSULIN DETEMIR 100 UNITS/ML VIAL SQ SCH (20:25)
[2016-07-03] VITALS: BP 118/56; PULSE 76; RESP 18; TEMP 97.8; O2SAT 96
[2016-07-03] MEDS: ACETAMINOPHEN/HYDROcodone 325 MG/7.5 MG TAB PO PRN ×3 (01:39→09:45)
[2016-07-03] MEDS: INSULIN NovoLIN REGULAR SUPPLEMENTAL SCALE SQ SCH (06:00)
[2016-07-03] MEDS: LEVOTHYROXINE SODIUM 25 MCG TAB PO SCH (06:03)
[2016-07-03] MEDS: LEVOTHYROXINE SODIUM 150 MCG TAB PO SCH (06:03)
[2016-07-03 08:00] VITALS: BP 130/58; PULSE 69; RESP 20; TEMP 97.7; O2SAT 95
[2016-07-03] MEDS: LIOTHYRONINE SODIUM 5 MCG TAB PO SCH (08:56)
[2016-07-03] MEDS: ISOSORBIDE DINITRATE 5 MG TAB PO SCH (08:56)
[2016-07-03] MEDS: DULoxetine HCl DR 30 MG CAP PO SCH (08:56)
[2016-07-03] MEDS: LOSARTAN 50 MG TAB PO SCH (08:56)
[2016-07-03] MEDS: LACTOBACILLUS ACIDOPHILUS TAB PO SCH (08:56)
[2016-07-03] MEDS: FUROSEMIDE 20 MG TAB PO SCH (08:56)
[2016-07-03] MEDS: buPROPion HCL 150 MG SUSTAINED RELEASE TAB PO SCH (08:56)
[2016-07-03] MEDS: CARVEDILOL 12.5 MG TAB PO SCH (08:57)
[2016-07-03] MEDS: ASPIRIN EC 325 MG TABEC PO SCH (08:57)
[2016-07-03] MEDS: GABAPENTIN 300 MG CAP PO SCH (08:57)
== END 2016-07-03 11:08 | DRG 252 ==
LOC: NEDAMB 13:00 → NEDA 15:39 → N04B 21:55
PROVIDERS: ADMIT Internal Medicine; ATTEND Internal Medicine
PROC: 0JBN0ZZ Excision of Right Lower Leg Subcutaneous Tissue and Fascia, Open Approach (ICD-10-PCS; 2016-06-23)
PROC: B41D1ZZ Fluoroscopy of Aorta and Bilateral Lower Extremity Arteries using Low Osmolar Contrast (ICD-10-PCS; 2016-06-23)
PROC: 0JBP0ZZ Excision of Left Lower Leg Subcutaneous Tissue and Fascia, Open Approach (ICD-10-PCS; principal; 2016-06-23 15:01)
PROC: 047L3ZZ Dilation of Left Femoral Artery, Percutaneous Approach (ICD-10-PCS; 2016-06-23 15:01)
DX: I73.9 Peripheral vascular disease, unspecified (principal); G93.41 Metabolic encephalopathy; I42.9 Cardiomyopathy, unspecified; E11.22 Type 2 diabetes mellitus with diabetic chronic kidney disease; L03.115 Cellulitis of right lower limb; E11.621 Type 2 diabetes mellitus with foot ulcer; L03.116 Cellulitis of left lower limb; E87.1 Hypo-osmolality and hyponatremia; L97.819 Non-pressure chronic ulcer of other part of right lower leg with unspecified severity; L97.829 Non-pressure chronic ulcer of other part of left lower leg with unspecified severity; E66.01 Morbid (severe) obesity due to excess calories; E11.65 Type 2 diabetes mellitus with hyperglycemia; I12.9 Hypertensive chronic kidney disease with stage 1 through stage 4 chronic kidney disease, or unspecified chronic kidney disease; N18.9 Chronic kidney disease, unspecified; E03.9 Hypothyroidism, unspecified; K44.9 Diaphragmatic hernia without obstruction or gangrene; F41.9 Anxiety disorder, unspecified; Z88.0 Allergy status to penicillin; Z91.010 Allergy to peanuts; Z79.4 Long term (current) use of insulin; D63.8 Anemia in other chronic diseases classified elsewhere; I83.008 Varicose veins of unspecified lower extremity with ulcer other part of lower leg; L97.529 Non-pressure chronic ulcer of other part of left foot with unspecified severity; F29 Unspecified psychosis not due to a substance or known physiological condition; Z88.8 Allergy status to other drugs, medicaments and biological substances
CPT/HCPCS: 70450; 71010; 75716; 76937; 80048; 80053; 82948; 83605; 85007; 85014; 85018; 85025; 85027; 85610; 86850; 86900; 86901; 87040; 94150; 96365; 96375; C1725; C1769; C1887; J1170; J1200; J1644; J1815; J1940; J2270; J2405; J2543; J2710; J2930; J3010; J3370; J3480; J7030; J7040; J7512; Q0163; Q9967

== ENCOUNTER 2016-07-15 15:32 | Inpatient (IN) | payer OTHER ==
[~2016-07-15] VITALS: Ht 160 cm; Wt 82.1 kg
[~2016-07-15 15:32] MED LIST changes: +Aspirin Ec PO; +CLON0.5T PO; +DULC10SU3 RECTAL; +FENT25T TD; -FENT50T TD; -FURO20TA PO; +GLUCINJ IM; -HUMALOG SQ; -ISOS1TAB PO; +ISOS5TAB PO; +LOSA100T PO; -OXYC1TAB36 PO; +SODI1TAB PO; +THERTAB17 PO
[2016-07-15] MEDS ORDERED: ISOS1TAB PO (17:37)
[2016-07-15] MEDS ORDERED: LEVO.15 PO (17:37)
[2016-07-15] MEDS ORDERED: THERM PO (17:37)
[2016-07-15] MEDS ORDERED: LEVA250T PO (17:37)
[2016-07-15] MEDS ORDERED: LEVEMIR SQ (17:37)
[2016-07-15] MEDS ORDERED: LEVO25TA4 PO (17:37)
[2016-07-15] MEDS ORDERED: CARV12.5 PO (17:37)
[2016-07-15] MEDS ORDERED: HYDR-3516 PO (17:37)
[2016-07-15] MEDS ORDERED: DIFL100T PO (17:37)
[2016-07-15] MEDS ORDERED: DOCU1CAP39 PO (17:37)
[2016-07-15] MEDS ORDERED: BUPR150CR PO (17:37)
[2016-07-15] MEDS ORDERED: Aspirin Ec PO (17:37)
[2016-07-15] MEDS ORDERED: LACT PO (17:37)
[2016-07-15] MEDS ORDERED: DULO1CAP2 PO (17:37)
[2016-07-15] MEDS ORDERED: HEPA10003 SQ (17:37)
[2016-07-15] MEDS ORDERED: CYTO5TAB PO (17:37)
[2016-07-15] MEDS ORDERED: QUET1TAB7 PO (17:37)
[2016-07-15 18:52] VITALS: BP 148/52; PULSE 98; RESP 35; TEMP 97.9; O2SAT 91
[2016-07-15 18:55] VITALS: PULSE 77
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
[2016-07-15] MEDS: SODIUM CHLOR 0.9% 1000 ML INJ 1,000 ML IV SCH (19:42)
[2016-07-15] MEDS ORDERED: MISCELLANEOUS NURSING INFORMATION XX SCH (19:45)
[2016-07-15] MEDS ORDERED: CHLORHEXIDINE GLUCONATE 2 % 1 PACK (2 CLOTHS) TOP PRN (19:45)
[2016-07-15] MEDS ORDERED: METOCLOPRAMIDE HCL 10 MG/2 ML VIAL IV PRN (19:45)
[2016-07-15] MEDS ORDERED: RESP: ALBUTEROL 2.5 MG/IPRATROPIUM 0.5 MG NEB (PRN) INH (19:45)
[2016-07-15 20:00] VITALS: BP 122/56; PULSE 79; PULSE 84; RESP 18; TEMP 97.9; O2SAT 92
[2016-07-15] MEDS ORDERED: ACETAMINOPHEN 1000 MG/100 ML VIAL IV PRN (20:00)
[2016-07-15] MEDS ORDERED: KETOROLAC TROMETHAMINE 60 MG/2 ML (IM) VIAL IM PRN (20:00)
[2016-07-15] MEDS ORDERED: KETOROLAC TROMETHAMINE 30 MG/ML (IVP) VIAL IV PUSH PRN (20:15)
[2016-07-15] MEDS: SODIUM CHLORIDE 0.9% FLUSH 5 ML FLUSH IV FLUSH SCH (20:20)
[2016-07-15] MEDS: HEPARIN SODIUM - SQ 10,000 UNITS/ML VIAL SQ SCH (20:20)
[2016-07-15] MEDS: DOCUSATE SODIUM 100 MG CAP PO SCH (20:20)
--- NOTE | 2016-07-15 20:20 | RADRPT ---
EXAM DATE/TIME: 07/15/2016 20:02 [facility] COMPARISON: CHEST SINGLE AP, July 15, 2016, 17:59. INDICATIONS : Short of breath. MEDICAL HISTORY : Hypertension. Hypercholesterolemia. Thyroid disease. Arthritis. Diabetes. SURGICAL HISTORY : Cholecystectomy. Left oophrectomy ENCOUNTER: Subsequent ACUITY: 1 week PAIN SCORE: 0/10 LOCATION: Bilateral chest FINDINGS: A single view of the chest demonstrates the lungs to be symmetrically aerated without evidence of mas s, infiltrate or effusion. The cardiomediastinal contours are unremarkable. Osseous structures are intact. CONCLUSION: No evidence of acute cardiopulmonary disease. Alfredo Sneed MD on July 15, 2016 at 20:18 Board Certified Radiologist. This report was verified electronically.
--- NOTE | 2016-07-15 20:47 | HHI.HP ---
HPI Service Critical Care Medicine Primary Care Physician Unknown Admission Diagnosis Diagnosis: (1) Cellulitis of left lower extremity (2) Delirium due to another medical condition Travel History International Travel<30 Days: No Contact w/Intl Traveler <30 Da: No History of Present Illness 61-year-old female, with multiple admissions, with history of cellulitis of legs , severe PVD, diabetes and cardiomyopathy EF of 30% was at the rehabilitation facility when she became more altered today lethargic and hypoxic. Rapid response team was called and transferred patient to ICU. During my evaluation in the ICU patient remains confused and lethargic responsive to pain with a stable blood pressure and saturation of 100% on 40% face mask. Review of Systems Review of Systems ROS Unable to obtain due to patient's altered mental status Past Family Social History Allergies: Coded Allergies: Contrast Media (Verified Allergy, Severe, Flash pulmonary edema , 06/16/16) PEANUTS (Verified Allergy, Severe, rash, 07/03/16) swelling of the tongue Santyl (Verified Allergy, Intermediate, Irritation, 07/09/16) Past Medical History PVD diabetes hypertension cardiomyopathy EF of 30% Past Surgical History oophorectomy cholecystectomy Reported Medications Reported Meds & Active Scripts Active Quetiapine (Quetiapine Fumarate) 25 Mg Tab 25 Mg PO BID Thera M Plus (Multivitamins/Minerals Therapeutic) 1 Tab 1 Tab PO DAILY Cytomel (Liothyronine Sodium) 5 Mcg Tab 5 Mcg PO DAILY Levothyroxine (Levothyroxine Sodium) 25 Mcg Tab 25 Mcg PO DAILY@06 Synthroid (Levothyroxine Sodium) 150 Mcg Tab 150 Mcg PO DAILY@06 Levaquin (Levofloxacin) 250 Mg Tab 250 Mg PO Q48H 1 Days Acidophilus/l-Sporogenes (Lactobacillus Acidophilus) 1 Tab Tab 1 Tab PO TID Isordil Titradose (Isosorbide Dinitrate) 5 Mg Tab 5 Mg PO Q8HR Levemir Inj (Insulin Detemir) 1,000 unit/ 10 ML Vial 25 Units SQ HS 30 Days Hydrocodone-Acetaminophen 5-325 mg Tab 1 Tab PO Q4H PRN Heparin Sodium (Heparin Sodium (Porcine)) 10,000 Unit/Ml Inj 5,000 Units SQ Q12HR 1 Days Diflucan (Fluconazole) 100 Mg Tab 75 Mg PO DAILY@17 1 Days Dok (Docusate Sodium) 100 Mg Cap 100 Mg PO BID Duloxetine DR (Duloxetine HCl) 30 Mg Capdr 30 Mg PO Q12HR Coreg (Carvedilol) 12.5 Mg Tab 25 Mg PO BID Wellbutrin SR 12 HR (Bupropion HCl) 150 Mg Tab 150 Mg PO Q12HR [Aspirin Ec] 325 MG Tabec 325 Mg PO DAILY Levemir Inj (Insulin Detemir) 1,000 unit/ 10 ML Vial 15 Units SQ HS 30 Days Do not mix with any other Insulin. Duragesic Patch 72 HR (Fentanyl) 25 Mcg/Hr Patch 1 Patch TD Q3D Clonazepam 0.5 Mg Tab 0.5 Mg PO Q8HR PRN Oxycodone-Acetaminophen 5-325 mg Tab 1 Tab PO Q4H PRN Neurontin (Gabapentin) 300 Mg Cap 300 Mg PO BID Reported Dulcolax Supp (Bisacodyl) 10 Mg Supp 10 Mg RECTAL DAILY PRN Glucagen Hypokit Inj Kit (Glucagon (Rdna) Inj Kit) 1 Mg Kit 1 Mg IM ONCE PRN Sodium Chloride 1 Gm Tab 1 Gm PO DAILY Losartan (Losartan Potassium) 100 Mg Tab 100 Mg PO DAILY Lasix (Furosemide) 20 Mg Tab 20 Mg PO DAILY Active Ordered Medications Current Medications Medications (Trade) Dose Ordered Sig/Virgilio Route PRN Reason Start Time Stop Time Status Last Admin Dose Admin Sodium Chloride (NS 1000 ml Inj) 1,000 ml @ 84 mls/hr [id number] IV 07/15/16 19:42 07/15/16 19:42 IV Flush (NS Flush) 2 ml UNSCH PRN IV FLUSH FLUSH AFTER USING IV ACCESS 07/15/16 19:45 IV Flush (NS Flush) 2 ml BID IV FLUSH 07/15/16 21:00 07/15/16 20:20 Fentanyl Citrate (fentaNYL INJ) 50 mcg Q3H PRN IV PUSH Pain scale 7-10 &/or sedation 07/15/16 19:45 07/15/16 21:44 Ondansetron HCl (Zofran Inj) 4 mg Q6H PRN IV NAUSEA OR VOMITING 07/15/16 19:45 Metoclopramide HCl (Reglan Inj) 5 mg Q6H PRN IV NAUSEA OR VOMITING 07/15/16 19:45 Docusate Sodium (Colace) 100 mg BID PO 07/15/16 21:00 Heparin Sodium (Porcine) (Heparin Inj) 5,000 units Q8HR SQ 07/15/16 22:00 07/15/16 20:20 Miscellaneous Information 1 [id number] XX 07/15/16 19:45 07/15/16 19:45 Chlorhexidine Gluconate (Chlorhexidine 2% Cloth) 3 pack Taper DAILY@04 TOP 07/16/16 04:00 07/12/17 03:59 Chlorhexidine Gluconate (Chlorhexidine 2% Cloth) 3 pack UNSCH PRN TOP HYGIENIC CARE 07/15/16 19:45 Acetaminophen (Ofirmev Inj) 1,000 mg Q6H PRN IV PAIN SCALE 1 TO 6 07/15/16 20:00 Ketorolac Tromethamine (Toradol Inj) 30 mg Q6H PRN IV PUSH PAIN 1-6 07/15/16 20:15 07/20/16 20:14 07/15/16 20:34 Carvedilol (Coreg) 25 mg BID PO 07/15/16 21:00 Fluconazole (Diflucan) 75 mg DAILY@17 PO 07/16/16 17:00 Isosorbide Dinitrate (Isordil) 5 mg Q8HR PO 07/15/16 22:00 Lactobacillus Acidophilus (Lactinex) 1 tab TID PO 07/16/16 09:00 Levofloxacin (Levaquin) 250 mg Q48H PO 07/15/16 22:00 Levothyroxine Sodium (Synthroid) 150 mcg DAILY@06 PO 07/16/16 06:00 Liothyronine Sodium (Cytomel) 5 mcg DAILY PO 07/16/16 09:00 Miscellaneous (Pill Splitter) 1 ea UNSCH PRN OTHER SEE LABEL COMMENTS 07/15/16 21:30 Famotidine (Pepcid Inj) 10 mg Q12HR IV PUSH 07/16/16 09:00 Aspirin (Ecotrin Ec) 325 mg DAILY PO 07/16/16 09:00 Family History Noncontributory Social History Negative Physical Exam Vital Signs Vital Signs Date Time Temp Pulse Resp B/P Pulse Ox O2 Delivery O2 Flow Rate FiO2 07/15/16 18:55 77 07/15/16 18:52 97.9 98 35 148/52 91 07/15/16 18:23 Simple Mask 15.00 Physical Exam GENERAL: Well-nourished, well-developed patient. SKIN: Warm and dry. HEAD: Normocephalic. EYES: No scleral icterus. No injection or drainage. NECK: Supple, trachea midline. No JVD or lymphadenopathy. CARDIOVASCULAR: Regular rate and rhythm without murmurs, gallops, or rubs. RESPIRATORY: Breath sounds equal bilaterally. No accessory muscle use. GASTROINTESTINAL: Abdomen soft, non-tender, nondistended. MUSCULOSKELETAL: No cyanosis, or edema. BACK: Nontender without obvious deformity. No CVA tenderness. EXTREMITIES: Multiple venous status ulcers nonhealing up to her knees Imaging Last 24 hours Impressions Chest X-Ray 07/15/16 0000 Signed Impressions: Service Date/Time: Friday, July 15, 2016 20:02 - CONCLUSION: No evidence of acute cardiopulmonary disease. Alfredo Sneed MD Assessment and Plan Problem List: (1) PVD (peripheral vascular disease) ICD Code: I73.9 Status: Chronic (2) Cardiomyopathy ICD Code: I42.9 Status: Chronic (3) Impaired mobility and activities of daily living ICD Code: Z74.09 Status: Acute (4) Cellulitis of left lower extremity ICD Code: L03.116 Status: Acute (5) Diabetes ICD Code: E11.9 Status: Chronic (6) Hypothyroidism ICD Code: E03.9 Status: Chronic Assessment and Plan Altered mental status - Metabolic toxic encephalopathy - Hold all medications that could contribute - We'll use fentanyl cautiously for pain control - We'll treat UTI with antibiotic Peripheral vascular disease - Supportive care - Patient control - Further vascular surgeon Diabetes - Hold Levemir due to hypoglycemia - Insulin sliding scale Cardiomyopathy - Coreg - Isosorbide Hypothyroidism - Check TSH - Synthroid Cellulitis - Fluconazole and Levaquin to continue - ID consult DVT GI prophylaxis - Heparin and Pepcid Critical Care: The total critical care time was 35 minutes. Time to perform other separately billable procedures was not included in the critical care time. Madhav Gomez MD Jul 15, 2016 20:47
[2016-07-15] MEDS: CARVEDILOL 12.5 MG TAB PO SCH (21:00)
[2016-07-15] MEDS ORDERED: FAMOTIDINE 20 MG/2 ML VIAL IV PUSH SCH (21:00)
[2016-07-15 21:03] VITALS: O2SAT 100
[2016-07-15] MEDS ORDERED: PILL SPLITTER OTHER PRN (21:30)
[2016-07-15] MEDS: ISOSORBIDE DINITRATE 5 MG TAB PO SCH (21:37)
[2016-07-15] MEDS: LEVOFLOXACIN 250 MG TAB PO SCH (21:38)
[2016-07-15 22:00] VITALS: PULSE 91
[2016-07-15 22:15] LABS: INDIRECT BILIRUBIN 0.3 MG/DL (0.0-0.8); TOTAL BILIRUBIN ADULT 0.4 MG/DL (0.2-1.0)
[2016-07-15 22:48] LABS: ALKALINE PHOSPHATASE 155 U/L (45-117); ALT (GPT) 52 U/L (10-53); ANION GAP 10 MEQ/L (5-15); AST (GOT) 51 U/L (15-37); BICARBONATE 21.9 MEQ/L (21.0-32.0); BLOOD UREA NITROGEN 46 MG/DL (7-18); CHLORIDE 97 MEQ/L (98-107); GLOMERULAR FILTRATION RATE 21 ML/MIN (>89); POTASSIUM 5.1 MEQ/L (3.5-5.1); SODIUM (NA) 129 MEQ/L (136-145); TOTAL BILIRUBIN ADULT 0.4 MG/DL (0.2-1.0)
[2016-07-15 22:49] LABS: BACTERIA, URINE FEW /hpf; BLOOD, URINE MOD (NEG); COMMENT (UR) CULTURE INDICATED; CULTURE IF INDICATED CULTURE INDICATED; GLUCOSE,URINE NEG (NEG); KETONE, URINE TRACE mg/dL (NEG); NITRITE,URINE NEG (NEG); SQUAMOUS EPITHELIAL CELL URINE 2 /hpf (0-5); URINE COLOR YELLOW (YELLW/STRAW)
[2016-07-16] VITALS (14 sets, daily range): BP systolic 123–149; BP diastolic 61–114; PULSE 75–87; RESP 20–32; TEMP 98.1–98.6; O2SAT 94–100
[2016-07-16] MEDS: CHLORHEXIDINE GLUCONATE 2 % 1 PACK (2 CLOTHS) TOP SCH (04:00)
[2016-07-16] MEDS: HEPARIN SODIUM - SQ 10,000 UNITS/ML VIAL SQ SCH ×3 (04:47→20:43)
[2016-07-16 04:51] LABS: AUTOMATED NEUTROPHIL # 13.7 TH/MM3 (1.8-7.7); BASOPHIL # 0.1 TH/MM3 (0-0.2); BASOPHIL % 0.4 % (0.0-2.0); EOSINOPHIL % 0.3 % (0.0-4.0); HEMATOCRIT 25.5 % (35.0-46.0); LYMPHOCYTE # 1.5 TH/MM3 (1.0-4.8); MEAN CELL VOLUME 74.5 FL (80.0-100.0); MEAN CORPUSCULAR HEMOGLOBIN 24.5 PG (27.0-34.0); MEAN CORPUSCULAR HGB CONC 32.9 % (32.0-36.0); MONO % 7.4 % (0.0-8.0); NEUT % 82.9 % (16.0-70.0); PLATELET COUNT 423 TH/MM3 (150-450); RED BLOOD COUNT 3.42 MIL/MM3 (4.00-5.30); RED CELL DISTRIBUTION WIDTH 17.8 % (11.6-17.2); WHITE BLOOD COUNT 16.5 TH/MM3 (4.0-11.0)
[2016-07-16 04:57] LABS: HEMO FLAGS AUTO DIFF
[2016-07-16 05:20] LABS: ALKALINE PHOSPHATASE 154 U/L (45-117); ALT (GPT) 46 U/L (10-53); ANION GAP 10 MEQ/L (5-15); AST (GOT) 45 U/L (15-37); BICARBONATE 24.5 MEQ/L (21.0-32.0); BLOOD UREA NITROGEN 42 MG/DL (7-18); CHLORIDE 99 MEQ/L (98-107); GLOMERULAR FILTRATION RATE 25 ML/MIN (>89); MAGNESIUM 2.9 MG/DL (1.5-2.5); POTASSIUM 4.7 MEQ/L (3.5-5.1); SODIUM (NA) 133 MEQ/L (136-145); TOTAL BILIRUBIN ADULT 0.4 MG/DL (0.2-1.0)
[2016-07-16] MEDS: ISOSORBIDE DINITRATE 5 MG TAB PO SCH ×3 (05:50→20:43)
[2016-07-16] MEDS: LEVOTHYROXINE SODIUM 150 MCG TAB PO SCH (05:50)
[2016-07-16 06:43] LABS: BANDS 1 % (0-6); MYELOCYTES 3 % (0-0); NEUTROPHIL # MANUAL DIFF 14.7 TH/MM3 (1.8-7.7); POLYS (SEG NEUTROPHILS) 85 % (16-70); WBC DIFF SAMPLE 100
[2016-07-16 06:44] LABS: PLATELET ESTIMATE SMEAR NORMAL (NORMAL); PLATELET MORPHOLOGY NORMAL (NORMAL); SCAN/DIFF FINAL DIFF MANUAL
--- NOTE | 2016-07-16 07:11 | RADRPT ---
EXAM DATE/TIME: 07/16/2016 06:54 [facility] COMPARISON: CHEST SINGLE AP, July 15, 2016, 20:02. INDICATIONS : Respiratory failure. MEDICAL HISTORY : Hypercholesterolemia. Diabetes mellitus type II. Hypertension. SURGICAL HISTORY : None. ENCOUNTER: Subsequent ACUITY: 2 weeks PAIN SCORE: Non-responsive. LOCATION: Bilateral chest FINDINGS: A single view of the chest demonstrates diminished lung volumes without evidence of mass, infiltrate or effusion. The cardiomediastinal contours are unremarkable. Osseous structures are intact. CONCLUSION: No acute disease. Jonathan Gibson MD on July 16, 2016 at 7:09 Board Certified Radiologist. This report was verified electronically.
[2016-07-16 07:48] LABS: CREATINE KINASE 401 U/L (26-192)
[2016-07-16 08:01] LABS: CKMB 4.6 NG/ML (0.5-3.6)
[2016-07-16] MEDS: FAMOTIDINE 20 MG/2 ML VIAL IV PUSH SCH ×2 (08:26→20:43)
[2016-07-16] MEDS: DOCUSATE SODIUM 100 MG CAP PO SCH ×2 (08:26→20:43)
[2016-07-16] MEDS: LACTOBACILLUS ACIDOPHILUS TAB PO SCH ×3 (08:26→17:03)
[2016-07-16] MEDS: LIOTHYRONINE SODIUM 5 MCG TAB PO SCH (08:26)
[2016-07-16] MEDS: CARVEDILOL 12.5 MG TAB PO SCH ×2 (08:26→20:43)
[2016-07-16] MEDS: SODIUM CHLORIDE 0.9% FLUSH 5 ML FLUSH IV FLUSH SCH ×2 (08:27→20:43)
[2016-07-16] MEDS: ASPIRIN EC 325 MG TABEC PO SCH (08:27)
[2016-07-16] MEDS: SODIUM CHLOR 0.9% 1000 ML INJ 1,000 ML IV SCH ×2 (08:27→17:03)
[2016-07-16] MEDS ORDERED: ASPIRIN 325 MG PO SCH (09:00)
--- NOTE | 2016-07-16 15:35 | HHI.CCPN ---
Subjective Remarks/Hospital Course 07/15: 61-year-old female, with multiple admissions, with history of cellulitis of legs, severe PVD, diabetes and cardiomyopathy EF of 30% was at the rehabilitation facility when she became more altered today lethargic and hypoxic. Rapid response team was called and transferred patient to ICU. During my evaluation in the ICU patient remains confused and lethargic responsive to pain with a stable blood pressure and saturation of 100% on 40% face mask. 07/16: Resting comfortably in bed. On nasal cannula. Once to go back to rehabilitation. Denies any shortness of breath. Objective Vital Signs Date Time Temp Pulse Resp B/P Pulse Ox O2 Delivery O2 Flow Rate FiO2 07/16/16 14:00 85 07/16/16 12:00 98.5 24 123/61 94 07/16/16 08:02 Nasal Cannula 2.00 Intake and Output 07/15/16 07/15/16 07/16/16 08:00 16:00 00:00 Output Total 1100 ml Balance -1100 ml Result Diagram: 07/16/16 0422 07/16/16 0422 Imaging Last 24 hours Impressions Chest X-Ray 07/15/16 0000 Signed Impressions: Service Date/Time: Friday, July 15, 2016 20:02 - CONCLUSION: No evidence of acute cardiopulmonary disease. Alfredo Sneed MD Objective Remarks GENERAL: Well-nourished, well-developed patient. SKIN: Warm and dry. HEAD: Normocephalic. EYES: No scleral icterus. No injection or drainage. NECK: Supple, trachea midline. No JVD or lymphadenopathy. CARDIOVASCULAR: Regular rate and rhythm without murmurs, gallops, or rubs. RESPIRATORY: Breath sounds equal bilaterally. No accessory muscle use. GASTROINTESTINAL: Abdomen soft, non-tender, nondistended. MUSCULOSKELETAL: No cyanosis, or edema. BACK: Nontender without obvious deformity. No CVA tenderness. EXTREMITIES: Multiple venous status ulcers nonhealing up to her knees A/P Problem List: (1) PVD (peripheral vascular disease) ICD Code: I73.9 Status: Chronic (2) Cardiomyopathy ICD Code: I42.9 Status: Chronic (3) Impaired mobility and activities of daily living ICD Code: Z74.09 Status: Acute (4) Cellulitis of left lower extremity ICD Code: L03.116 Status: Acute (5) Diabetes ICD Code: E11.9 Status: Chronic (6) Hypothyroidism ICD Code: E03.9 Status: Chronic Assessment and Plan Altered mental status - Metabolic toxic encephalopathy - Hold all medications that could contribute - We'll use fentanyl cautiously for pain control - We'll treat UTI with antibiotic Peripheral vascular disease - Supportive care - Patient control - F/U with vascular surgeon Diabetes - Hold Levemir due to hypoglycemia - Insulin sliding scale Cardiomyopathy - Coreg - Isosorbide Hypothyroidism - Check TSH - Synthroid Cellulitis - Fluconazole and Levaquin to continue - ID consult DVT GI prophylaxis - Heparin and Pepcid Patient will be transferred to hospitalist service for further medical management. She wishes to go back to rehabilitation. She denies any shortness of breath. We'll transfer out of ICU currently. Critical care will be signing off. Please reconsult if needed. Haseeb Pedraza MD Jul 16, 2016 15:35
[2016-07-16] MEDS ORDERED: FLUCONAZOLE 100 MG TAB PO SCH (17:00)
[2016-07-16] MEDS ORDERED: ETOMIDATE 20 MG/10 ML VIAL ONE (17:07)
--- NOTE | 2016-07-16 18:04 | RADRPT ---
EXAM DATE/TIME: 07/16/2016 17:34 [facility] COMPARISON: No previous studies available for comparison. INDICATIONS : Open sores, swelling on left foot. MEDICAL HISTORY : Hypertension. Hypothyroidism. Dyspnea. Hiatal hernia. Diabetes SURGICAL HISTORY : Cholecystectomy. Umbilical hernia repair. Left oophorectomy ENCOUNTER: Subsequent ACUITY: 3 months PAIN SCORE: Non-responsive. LOCATION: Left entire foot FINDINGS: No fracture or subluxation seen in the left foot. No evidence of bone destruction. There are mild rajiv onavicular and navicular/cuneiform degenerative changes. A moderate-sized heel spurs present. There s econd through fifth hammertoe. Fairly generalized soft tissue swelling noted. There are vascular calcifications. No radiopaque forei gn body demonstrated. CONCLUSION: 1. Nonspecific soft tissue swelling. No acute bone destruction demonstrated. 2. Mild talonavicular and navicular/cuneiform degenerative changes. 3. Second through fifth hammertoe. 4. Moderate-sized heel spur. Alfredo Sneed MD on July 16, 2016 at 18:01 Board Certified Radiologist. This report was verified electronically.
--- NOTE | 2016-07-16 18:25 | HHI.NPPN ---
Subjective General Problems: Anemia Renal Failure: Chronic, Acute, Stage III History of Present Illness 61-year-old female with past medical history of hypertension, diabetes mellitus, ischemic heart disease, cardiomyopathy, chronic kidney disease, hypothyroidism who was admitted to [facility] on June 16 for cellulitis of the lower extremities. I was called to see the patient for worsening renal function. The patient has chronic kidney disease. It seems like her baseline creatinine has been varying from 1.1-1.3 most of the time and she has intermittently acute kidney failure. Additional Remarks Patient is sleepy, wakes up on command, with nasal cannula, not in distress. Review of Systems General Constitutional: Fatigue Cardiovascular Cardiac: Edema, WALLACE Objective Data Data 07/15/16 07/16/16 18:59 06:59 Intake Total 350 ml Output Total 1500 ml Balance -1150 ml Intake IV Total 350 ml Output Urine Total 1500 ml Vital Signs Date Time Temp Pulse Resp B/P Pulse Ox O2 Delivery O2 Flow Rate FiO2 07/16/16 16:00 81 07/16/16 16:00 98.5 82 28 134/63 100 07/16/16 14:00 85 07/16/16 12:00 81 07/16/16 12:00 98.5 78 24 123/61 94 07/16/16 10:00 84 07/16/16 08:02 99 Nasal Cannula 2.00 07/16/16 08:00 98.5 84 32 144/114 100 07/16/16 08:00 82 07/16/16 07:00 98 Nasal Cannula 2.00 07/16/16 06:00 83 07/16/16 04:00 85 07/16/16 04:00 98.5 85 27 149/65 100 07/16/16 02:00 87 07/16/16 00:00 98.1 83 28 135/69 100 07/16/16 00:00 83 07/15/16 22:00 91 07/15/16 21:03 100 Simple Mask 15.00 07/15/16 20:00 97.9 84 18 122/56 92 07/15/16 20:00 79 07/15/16 19:00 Simple Mask 15.00 07/15/16 18:55 77 07/15/16 18:52 97.9 98 35 148/52 91 07/15/16 18:23 Simple Mask 15.00 -: 2/22/17 0422 07/16/16 0422 Microbiology 07/15/16 Aerobic Blood Culture - Preliminary, Resulted NO GROWTH IN 1 DAY 07/15/16 Anaerobic Blood Culture - Preliminary, Resulted NO GROWTH IN 1 DAY 07/15/16 Aerobic Blood Culture - Preliminary, Resulted NO GROWTH IN 1 DAY 07/15/16 Anaerobic Blood Culture - Preliminary, Resulted NO GROWTH IN 1 DAY 07/15/16 Urine Culture - Preliminary, Resulted NO GROWTH IN 24 HOURS. Physical Exam General Appearance: No Acute Distress, Comfortable, Anxious Eyes Eye Exam: Pupils Equal Throat Throat Exam: Oral Mucosa [place] & Moist Pulmonary Resp Exam: Breath Sounds Equal, Rhonchi, Decreased Bases Cardiology CV Exam: Regular, Normal Sinus Rhythm Gastrointestinal/Abdomen GI Exam: Soft, Non-Tender, Bowel Sounds Present Genitourinary Exam: Clear Urine Extremeties Extremities Exam: Trace Edema (lower leg covered with dressing.) Assessment/Plan Assessment Summary: JAYLAN/Acute Renal Failure, Dehydration, Hypertension, CKD Stage III Problem List: (1) Diabetes (2) Diabetic foot ulcer (3) Delirium due to another medical condition (4) Cardiomyopathy (5) Hypothyroidism (6) CHF (congestive heart failure) (7) Hypertension (8) Ulcer of heel and midfoot (9) Acute kidney failure, unspecified Plan Patient is non oliguric. Creatinine is better. BP is stable. Cultures negative so far. On Levaquin and Fluconazole. Continue IVF. Most likely has JAYLAN, due to pre renal and ATN. Follow urine out put and BMP. Avoid Nephrotoxins. D/W the and daughter at bed side. Problem Qualifiers (1) Diabetic foot ulcer: Ellen Willingham MD Jul 16, 2016 18:25
--- NOTE | 2016-07-16 19:06 | PD.ID.CON ---
History of Present Illness Service ID Consult Requested By Reason for Consult Evaluation and Mment of possible sepsis. Primary Care Physician Unknown Diagnoses: History of Present Illness is a 61 y/o CF with multiple admissions, with history of recurrent cellulitis of legs, severe PVD, diabetes and cardiomyopathy EF of 30%. Patient was recently admitted inpatient underwent evaluation by Vascular surgery. 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 It was determined with Vascular surgery that these were not actively infected and the areas of gangrene and eschar would be addressed when vascular supply better. Patient was discharged to rehab on no antibiotics. Unsure at this point, why she was on Levaquin at rehab. Patient was at the rehabilitation facility when she became more altered and progressively lethargic and hypoxic. Rapid response team was called and transferred patient to ICU. Patient was on pain meds, psych meds and renal function was worsening over last few days prior to transfer to ICU. No witnessed aspiration but pt was lethargic last few days. Infectious disease consultation has been requested on this admission for evaluation and Mment of possible sepsis. Review of Systems ROS Limitations: Clinical Condition, Altered Mental Status (lethargic) Past Family Social History Allergies: Coded Allergies: Contrast Media (Verified Allergy, Severe, Flash pulmonary edema , 06/16/16) PEANUTS (Verified Allergy, Severe, rash, 07/03/16) swelling of the tongue Santyl (Verified Allergy, Intermediate, Irritation, 07/09/16) Past Medical History PVD - has CTA last year and has lesions that could be corrected Hypertension Diabetes Cardiomyopathysustained after contrast-induced flash pulmonary edema- latest EF was 30% in March 2016. Obesity Hypothyroidism History of dermoid cyststatus post left oophorectomy 25 years ago Past Surgical History Left oophorectomy for dermoid cyst removal Cholecystectomy Hernia repair Reported Medications Reported Meds & Active Scripts Active Quetiapine (Quetiapine Fumarate) 25 Mg Tab 25 Mg PO BID Thera M Plus (Multivitamins/Minerals Therapeutic) 1 Tab 1 Tab PO DAILY Cytomel (Liothyronine Sodium) 5 Mcg Tab 5 Mcg PO DAILY Levothyroxine (Levothyroxine Sodium) 25 Mcg Tab 25 Mcg PO DAILY@06 Synthroid (Levothyroxine Sodium) 150 Mcg Tab 150 Mcg PO DAILY@06 Levaquin (Levofloxacin) 250 Mg Tab 250 Mg PO Q48H 1 Days Acidophilus/l-Sporogenes (Lactobacillus Acidophilus) 1 Tab Tab 1 Tab PO TID Isordil Titradose (Isosorbide Dinitrate) 5 Mg Tab 5 Mg PO Q8HR Levemir Inj (Insulin Detemir) 1,000 unit/ 10 ML Vial 25 Units SQ HS 30 Days Hydrocodone-Acetaminophen 5-325 mg Tab 1 Tab PO Q4H PRN Heparin Sodium (Heparin Sodium (Porcine)) 10,000 Unit/Ml Inj 5,000 Units SQ Q12HR 1 Days Diflucan (Fluconazole) 100 Mg Tab 75 Mg PO DAILY@17 1 Days Dok (Docusate Sodium) 100 Mg Cap 100 Mg PO BID Duloxetine DR (Duloxetine HCl) 30 Mg Capdr 30 Mg PO Q12HR Coreg (Carvedilol) 12.5 Mg Tab 25 Mg PO BID Wellbutrin SR 12 HR (Bupropion HCl) 150 Mg Tab 150 Mg PO Q12HR [Aspirin Ec] 325 MG Tabec 325 Mg PO DAILY Levemir Inj (Insulin Detemir) 1,000 unit/ 10 ML Vial 15 Units SQ HS 30 Days Do not mix with any other Insulin. Duragesic Patch 72 HR (Fentanyl) 25 Mcg/Hr Patch 1 Patch TD Q3D Clonazepam 0.5 Mg Tab 0.5 Mg PO Q8HR PRN Oxycodone-Acetaminophen 5-325 mg Tab 1 Tab PO Q4H PRN Neurontin (Gabapentin) 300 Mg Cap 300 Mg PO BID Reported Dulcolax Supp (Bisacodyl) 10 Mg Supp 10 Mg RECTAL DAILY PRN Glucagen Hypokit Inj Kit (Glucagon (Rdna) Inj Kit) 1 Mg Kit 1 Mg IM ONCE PRN Sodium Chloride 1 Gm Tab 1 Gm PO DAILY Losartan (Losartan Potassium) 100 Mg Tab 100 Mg PO DAILY Lasix (Furosemide) 20 Mg Tab 20 Mg PO DAILY Active Ordered Medications Current Medications Medications (Trade) Dose Ordered Sig/Virgilio Route Start Time Stop Time Status Last Admin (NS 1000 ml Inj) 1,000 ml @ 84 mls/hr [id number] IV 07/15/16 19:42 07/16/16 17:03 (NS Flush) 2 ml UNSCH PRN IV FLUSH 07/15/16 19:45 (NS Flush) 2 ml BID IV FLUSH 07/15/16 21:00 07/16/16 08:27 (fentaNYL INJ) 50 mcg Q3H PRN IV PUSH 07/15/16 19:45 07/15/16 21:44 (Zofran Inj) 4 mg Q6H PRN IV 07/15/16 19:45 (Reglan Inj) 5 mg Q6H PRN IV 07/15/16 19:45 (Colace) 100 mg BID PO 07/15/16 21:00 07/16/16 08:26 (Heparin Inj) 5,000 units Q8HR SQ 07/15/16 22:00 07/17/16 04:43 Miscellaneous Information 1 Q361D XX 07/15/16 19:45 07/15/16 19:45 (Chlorhexidine 2% Cloth) 3 pack Taper DAILY@04 TOP 07/16/16 04:00 07/12/17 03:59 07/17/16 03:11 (Chlorhexidine 2% Cloth) 3 pack UNSCH PRN TOP 07/15/16 19:45 (Ofirmev Inj) 1,000 mg Q6H PRN IV 07/15/16 20:00 (Toradol Inj) 30 mg Q6H PRN IV PUSH 07/15/16 20:15 07/20/16 20:14 07/15/16 20:34 (Coreg) 25 mg BID PO 07/15/16 21:00 07/16/16 20:43 (Diflucan) 75 mg DAILY@17 PO 07/16/16 17:00 07/16/16 17:03 (Isordil) 5 mg Q8HR PO 07/15/16 22:00 07/17/16 04:42 (Lactinex) 1 tab TID PO 07/16/16 09:00 07/16/16 17:03 (Levaquin) 250 mg Q48H PO 07/15/16 22:00 (Synthroid) 150 mcg DAILY@06 PO 07/16/16 06:00 07/17/16 04:42 (Cytomel) 5 mcg DAILY PO 07/16/16 09:00 07/16/16 08:26 (Pill Splitter) 1 ea UNSCH PRN OTHER 07/15/16 21:30 (Pepcid Inj) 10 mg Q12HR IV PUSH 07/16/16 09:00 07/16/16 20:43 (Ecotrin Ec) 325 mg DAILY PO 07/16/16 09:00 07/16/16 08:27 Family History reviewed and NC to current ID problems. Social History Denies smoking Denies alcohol abuse Denies illicit drug use Physical Exam Vital Signs Vital Signs Date Time Temp Pulse Resp B/P Pulse Ox O2 Delivery O2 Flow Rate FiO2 07/16/16 18:00 78 07/16/16 16:00 81 07/16/16 16:00 98.5 82 28 134/63 100 07/16/16 14:00 85 07/16/16 12:00 81 07/16/16 12:00 98.5 78 24 123/61 94 07/16/16 10:00 84 07/16/16 08:02 99 Nasal Cannula 2.00 07/16/16 08:00 98.5 84 32 144/114 100 07/16/16 08:00 82 07/16/16 07:00 98 Nasal Cannula 2.00 07/16/16 06:00 83 07/16/16 04:00 85 07/16/16 04:00 98.5 85 27 149/65 100 07/16/16 02:00 87 07/16/16 00:00 98.1 83 28 135/69 100 07/16/16 00:00 83 07/15/16 22:00 91 07/15/16 21:03 100 Simple Mask 15.00 07/15/16 20:00 97.9 84 18 122/56 92 07/15/16 20:00 79 Physical Exam GENERAL: Obese CF, Well developed, in no apparent distress. SKIN: No rashes. HEAD: Atraumatic. Normocephalic. No temporal or scalp tenderness. EYES: Pupils equal round and reactive. Extraocular motions intact. ENT: Nose without bleeding, purulent drainage or septal hematoma. Throat without erythema, tonsillar hypertrophy or exudate. Uvula midline. Airway patent. NECK: Trachea midline. Supple, nontender, no meningeal signs. CARDIOVASCULAR: HS audible. No murmur appreciated. RESPIRATORY: Clear to auscultation. Breath sounds equal bilaterally. GASTROINTESTINAL: Abdomen soft, non-tender, nondistended. Obese. MUSCULOSKELETAL: Bilateral extremities with ulcers, eschar of heel of left heel , 2nd and 3rd toes with gangrene. NEUROLOGICAL: lethargic, moves all extremities. Psych: could not be assessed. IV line sites with no e.o infection. Laboratory Laboratory Tests Test 07/15/16 07/15/16 07/16/16 07/16/16 21:35 22:00 04:22 04:42 Sodium Level 129 133 Potassium Level 5.1 4.7 Chloride Level 97 99 Carbon Dioxide Level 21.9 24.5 Anion Gap 10 10 Blood Urea Nitrogen 46 42 Creatinine 2.38 2.05 Estimat Glomerular Filtration 21 25 Rate Random Glucose 127 147 Calcium Level 8.2 8.3 Total Bilirubin 0.4 0.4 Direct Bilirubin 0.1 Indirect Bilirubin 0.3 Aspartate Amino Transf 51 45 (AST/SGOT) Alanine Aminotransferase 52 46 (ALT/SGPT) Alkaline Phosphatase 155 154 Ammonia LESS THAN 10 Total Creatine Kinase 387 401 Creatine Kinase MB 5.0 4.6 Creatine Kinase MB % 1.3 1.1 Total Protein 7.1 6.9 Albumin 1.8 1.7 Thyroid Stimulating Hormone 9.150 3rd Gen Urine Color YELLOW Urine Turbidity CLOUDY Urine pH 5.0 Urine Specific [place] 1.019 Urine Protein 30 Urine Glucose (UA) NEG Urine Ketones TRACE Urine Occult Blood MOD Urine Nitrite NEG Urine Bilirubin NEG Urine Urobilinogen LESS THAN 2.0 Urine Leukocyte Esterase LARGE Urine RBC Urine WBC Urine Squamous Epithelial 2 Cells Urine Bacteria FEW Microscopic Urinalysis Comment CULTURE INDICATED Nasal Screen MRSA (PCR) NEGATIVE White Blood Count 16.5 Red Blood Count 3.42 Hemoglobin 8.4 Hematocrit 25.5 Mean Corpuscular Volume 74.5 Mean Corpuscular Hemoglobin 24.5 Mean Corpuscular Hemoglobin 32.9 Concent Red Cell Distribution Width 17.8 Platelet Count 423 Mean Platelet Volume 6.5 Neutrophils (%) (Auto) 82.9 Lymphocytes (%) (Auto) 9.0 Monocytes (%) (Auto) 7.4 Eosinophils (%) (Auto) 0.3 Basophils (%) (Auto) 0.4 Neutrophils # (Auto) 13.7 Lymphocytes # (Auto) 1.5 Monocytes # (Auto) 1.2 Eosinophils # (Auto) 0.0 Basophils # (Auto) 0.1 CBC Comment AUTO DIFF Differential Total Cells 100 Counted Neutrophils % (Manual) 85 Band Neutrophils % 1 Lymphocytes % 7 Monocytes % 4 Neutrophils # (Manual) 14.7 Myelocytes 3 Differential Comment FINAL DIFF MANUAL Platelet Estimate NORMAL Platelet Morphology Comment NORMAL Phosphorus Level 3.9 Magnesium Level 2.9 Troponin I LESS THAN 0.02 B-Type Natriuretic Peptide 577 Date/Time Procedure Status Source Growth 07/15/16 22:00 Urine Culture - Preliminary Resulted Urine Catheterized Urine NO GROWTH IN 24 HOURS. 07/15/16 21:35 Aerobic Blood Culture - Preliminary Resulted Blood Peripheral NO GROWTH IN 1 DAY 07/15/16 21:35 Anaerobic Blood Culture - Preliminary Resulted Blood Peripheral NO GROWTH IN 1 DAY Result Diagram: 07/16/16 0422 07/16/16 0422 Imaging Last Impressions Foot X-Ray 07/16/16 0000 Signed Impressions: Service Date/Time: Saturday, July 16, 2016 17:34 - CONCLUSION: 1. Nonspecific soft tissue swelling. No acute bone destruction demonstrated. 2. Mild talonavicular and navicular/cuneiform degenerative changes. 3. Second through fifth hammertoe. 4. Moderate-sized heel spur. Alfredo Sneed MD Chest X-Ray 07/16/16 0000 Signed Impressions: Service Date/Time: Saturday, July 16, 2016 06:54 - CONCLUSION: No acute disease. Jonathan Gibson MD Assessment and Plan Assessment and Plan Possible mild cellulitis vs stress related leucocytosis. Leucocytosis: cellulitis, stress. ? micro aspiration. Encephalopathy: likely pain meds and resp issue related. PVD s/p revascularization Cardiomyopathy DM with neuropathy. Hypothyroidism Chronic narcotic use. Anxiety and Depression. Recs Check CBC CMP in am Resp ruggiero ok. ? erroneous reading. Continue Levaquin for now. If WBC ok will likely stop DC Diflucan oral. Follow cultures Follow clinically. If persistent leucocytosis or worsening sepsis will call Vascular surgery. Charisse Pedraza MD Jul 16, 2016 19:06
--- NOTE | 2016-07-16 21:24 | MB ---
cc: SHILPA REED DPM DATE OF CONSULTATION 07/16/2016 DATE OF 1955 REASON FOR CONSULTATION Bilateral lower extremity wounds. HISTORY OF PRESENT ILLNESS The patient is a 61-year-old female with multiple admissions with a history of cellulitis, severe PVD, diabetes mellitus, cardiomyopathy. She was seen in the ICU this morning with nursing staff at bedside. She was in restraints and sedated. REVIEW OF SYSTEMS Unable to ascertain due to AMS. PAST MEDICAL HISTORY 1. PVD. 2. Diabetes. 3. Hypertension. 4. Cardiomyopathy. PAST SURGICAL HISTORY 1. Oophorectomy. 2. Cholecystectomy. 3. Peripheral vascular intervention with endarectomy. 4. Bilateral leg wound debridement. ALLERGIES CONTRAST MEDIA, SANTYL. MEDICATIONS Active medications, see the EHR. PHYSICAL EXAMINATION EXTREMITIES: Bilateral lower extremity with significant wounds encompassing more than 50% of the legs bilaterally. The right without any active drainage, purulence, erythema. The lower extremity is warm to warm. Capillary refill is less than 5 seconds. Muscle strength deferred. Left lower extremity with left third and fourth digits gangrene dry and stable. Left heel with ischemic presentation encompassing the entire left heel. There is no open wound to the left heel. The left lower extremity macerated with ulceration throughout the left leg encompassing greater than 70% of the soft tissue. There is no exposed bone or tendon. There is no active purulence. Lower extremities warm to warm. Muscle strength deferred. ASSESSMENT/PLAN 1. PVD. 2. Chronic left lower extremity cellulitis. 3. Chronic bilateral lower extremity ulcerations. 4. DM with neuropathy. PLAN 1. With this patient is to order some baseline left foot x-rays. She will continue with lower extremity wound care bilaterally. 2. Currently she is on Optifoam AG bilaterally with daily changes. 3. The patient is at risk for lower extremity loss on the left side. Given the ischemic and gangrenous changes. I do not recommend any surgical wound debridement per podiatry. Given the patient's extensive medical history, she is not a candidate for hyperbarics. This can be evaluated in house. After review of the left foot x-rays we will make additional recommendations. We will continue to follow this patient until the x-rays are evaluated and make additional recommendations. Thank you for the kind consult. BIN Lopes /5:12 PM /9:02 PM JAY
--- NOTE | 2016-07-16 21:51 | EKG ---
Date Performed: 07/16/2016 Time Performed: 07:40:09 PTAGE: 61 years EKG: Sinus rhythm ANTEROSEPTAL MYOCARDIAL INFARCTION , OF INDETERMINATE AGE ABNORMAL ECG PREVIOUS TRACING : 05/13/2016 17.44 Compared to prior tracing no significant change DOCTOR: Melanie Hagen Interpretating Date/Time 07/16/2016 21:50:41
[2016-07-17] VITALS (9 sets, daily range): BP systolic 112–169; BP diastolic 60–82; PULSE 70–85; RESP 15–20; TEMP 98.1–98.9; O2SAT 94–100
[2016-07-17] MEDS: CHLORHEXIDINE GLUCONATE 2 % 1 PACK (2 CLOTHS) TOP SCH (03:11)
[2016-07-17] MEDS: ISOSORBIDE DINITRATE 5 MG TAB PO SCH ×3 (04:42→21:32)
[2016-07-17] MEDS: LEVOTHYROXINE SODIUM 150 MCG TAB PO SCH (04:42)
[2016-07-17] MEDS: HEPARIN SODIUM - SQ 10,000 UNITS/ML VIAL SQ SCH ×3 (04:43→21:33)
[2016-07-17] MEDS: LIOTHYRONINE SODIUM 5 MCG TAB PO SCH (07:28)
[2016-07-17] MEDS: CARVEDILOL 12.5 MG TAB PO SCH ×2 (07:29→21:32)
[2016-07-17] MEDS: DOCUSATE SODIUM 100 MG CAP PO SCH ×2 (07:29→21:32)
[2016-07-17] MEDS: LACTOBACILLUS ACIDOPHILUS TAB PO SCH ×3 (07:29→17:42)
[2016-07-17] MEDS: SODIUM CHLOR 0.9% 1000 ML INJ 1,000 ML IV SCH ×2 (07:29→13:59)
[2016-07-17] MEDS: SODIUM CHLORIDE 0.9% FLUSH 5 ML FLUSH IV FLUSH SCH ×2 (07:29→21:00)
[2016-07-17] MEDS: FAMOTIDINE 20 MG/2 ML VIAL IV PUSH SCH ×2 (07:29→21:00)
[2016-07-17] MEDS: ASPIRIN EC 325 MG TABEC PO SCH (07:29)
[2016-07-17] MEDS ORDERED: FAMO40SU PO (09:15)
--- NOTE | 2016-07-17 09:17 | HHI.DCPOC ---
Discharge Care Plan Your Health Problems Are: Skin Breakdown Leg Swelling Shortness of Breath Goals to Promote Your Health * To prevent worsening of your condition and complications * To maintain your health at the optimal level Directions to Meet Your Goals Take your medications as prescribed Follow your dietary instruction Follow activity as directed Keep your appointments as scheduled Take your immunizations and boosters as scheduled If your symptoms worsen call your PCP, if no PCP go to Urgent Care Center or Emergency Room Smoking is Dangerous to Your Health. Avoid second hand smoke Call the 24-hour hour crisis hotline for domestic abuse at Ella Arzola Jul 17, 2016 09:17 Mikala Johnson MD Jul 24, 2016 12:29
--- NOTE | 2016-07-17 09:32 | HHI.DS ---
Discharge Summary Admission Date Jul 15, 2016 at 15:32 Discharge Date: Jul 17, 2016 Admitting Diagnosis Resp Failure (1) Cellulitis of left lower extremity ICD Code: L03.116 (2) Delirium due to another medical condition ICD Code: F05 Procedures None Brief History - From Admission 61-year-old female, with multiple admissions, with history of cellulitis of legs , severe PVD, diabetes and cardiomyopathy EF of 30% was at the rehabilitation facility when she became more altered today lethargic and hypoxic. Rapid response team was called and transferred patient to ICU. During my evaluation in the ICU patient remains confused and lethargic responsive to pain with a stable blood pressure and saturation of 100% on 40% face mask. Review of Systems CBC/BMP: 07/16/16 0422 07/16/16 0422 Significant Findings Laboratory Tests Test 07/15/16 07/15/16 07/16/16 07/16/16 21:35 22:00 04:22 04:42 Sodium Level 129 MEQ/L 133 MEQ/L (136-145) (136-145) Chloride Level 97 MEQ/L (98-107) Blood Urea Nitrogen 46 MG/DL (7-18) 42 MG/DL (7-18) Creatinine 2.38 MG/DL 2.05 MG/DL (0.50-1.00) (0.50-1.00) Estimat Glomerular Filtration 21 ML/MIN (>89) 25 ML/MIN (>89) Rate Random Glucose 127 MG/DL 147 MG/DL (74-106) (74-106) Calcium Level 8.2 MG/DL 8.3 MG/DL (8.5-10.1) (8.5-10.1) Aspartate Amino Transf 51 U/L (15-37) 45 U/L (15-37) (AST/SGOT) Alkaline Phosphatase 155 U/L 154 U/L (45-117) (45-117) Ammonia LESS THAN 10 MCMOL/L (11-32) Total Creatine Kinase 387 U/L 401 U/L (26-192) (26-192) Creatine Kinase MB 5.0 NG/ML 4.6 NG/ML (0.5-3.6) (0.5-3.6) Albumin 1.8 GM/DL 1.7 GM/DL (3.4-5.0) (3.4-5.0) Thyroid Stimulating Hormone 9.150 uIU/ML 3rd Gen (0.358-3.740) Urine Turbidity CLOUDY (CLEAR) Urine Protein 30 mg/dL (NEG-TRACE) Urine Ketones TRACE mg/dL (NEG) Urine Occult Blood MOD (NEG) Urine Leukocyte Esterase LARGE (NEG) Urine Bacteria FEW /hpf (NONE) White Blood Count 16.5 TH/MM3 (4.0-11.0) Red Blood Count 3.42 MIL/MM3 (4.00-5.30) Hemoglobin 8.4 GM/DL (11.6-15.3) Hematocrit 25.5 % (35.0-46.0) Mean Corpuscular Volume 74.5 FL (80.0-100.0) Mean Corpuscular Hemoglobin 24.5 PG (27.0-34.0) Red Cell Distribution Width 17.8 % (11.6-17.2) Mean Platelet Volume 6.5 FL (7.0-11.0) Neutrophils (%) (Auto) 82.9 % (16.0-70.0) Neutrophils # (Auto) 13.7 TH/MM3 (1.8-7.7) Monocytes # (Auto) 1.2 TH/MM3 (0-0.9) Neutrophils % (Manual) 85 % (16-70) Lymphocytes % 7 % (9-44) Neutrophils # (Manual) 14.7 TH/MM3 (1.8-7.7) Myelocytes 3 % (0-0) Magnesium Level 2.9 MG/DL (1.5-2.5) Troponin I LESS THAN 0.02 NG/ML (0.02-0.05) B-Type Natriuretic Peptide 577 PG/ML (0-100) Imaging Last Impressions Foot X-Ray 07/16/16 0000 Signed Impressions: Service Date/Time: Saturday, July 16, 2016 17:34 - CONCLUSION: 1. Nonspecific soft tissue swelling. No acute bone destruction demonstrated. 2. Mild talonavicular and navicular/cuneiform degenerative changes. 3. Second through fifth hammertoe. 4. Moderate-sized heel spur. Alfredo Sneed MD Chest X-Ray 07/16/16 0000 Signed Impressions: Service Date/Time: Saturday, July 16, 2016 06:54 - CONCLUSION: No acute disease. Jonathan Gibson MD PE at Discharge GENERAL: Well-nourished, well-developed patient. Not in Distress. SKIN: Warm and dry. BLE necrotic wounds, cassy wrap dsg in place. HEAD: Normocephalic. EYES: No scleral icterus. No injection or drainage. NECK: Supple, trachea midline. No JVD or lymphadenopathy. CARDIOVASCULAR: Regular rate and rhythm without murmurs, gallops, or rubs. RESPIRATORY: Breath sounds equal bilaterally. No accessory muscle use. On 2L nc. GASTROINTESTINAL: Abdomen soft, non-tender, nondistended. MUSCULOSKELETAL: No cyanosis, or edema. BACK: Nontender without obvious deformity. No CVA tenderness. EXTREMITIES: Multiple venous status ulcers nonhealing up to her knees NEURO: Awake and alert. Oriented to place, time, and person. Normal speech. Able to carry out sentence conversation but forgets and goes off topic. Hospital Course Pt. is 61-year-old female, with multiple admissions, with history of cellulitis of legs, severe PVD, diabetes and cardiomyopathy EF of 30% was at the rehabilitation facility when she became more altered today lethargic and hypoxic. Rapid response team was called and transferred patient to ICU. In the ICU patient remains confused and lethargic responsive to pain with a stable blood pressure and saturation of 100% on 40% face mask. Today, patient has improved, awake and alert. On nasal cannula, denies SOB/ Dyspnea. requesting to go back to rehabilitation. Denies chest pain, headache, palpitations, dizziness, n/v/d. Respiratory Failure - possibly exacerbated with metabolic encephalopathy, placed on Face mask, improved now on 2L nc - Nebs scheduled, PRN - May need CPAP at night - Pulmonology Consult Altered mental status, Metabolic toxic encephalopathy - Hold all medications that could contribute. Hold anxiolytics and narcotics - Pain control with fentanyl push - We'll treat UTI with Diflucan Peripheral vascular disease - Supportive care. Wound Care. - Pain control - F/U with vascular surgeon Diabetes - Hold Levemir due to hypoglycemia - Insulin sliding scale for now, until eating better Cardiomyopathy - Coreg - Isosorbide - Monitor BP Trend Hypothyroidism - TSH 9.150 - Synthroid 150mcg daily, check freeT4, may also be related to recent acute illness. Recheck in 4 weeks. Cellulitis - Levaquin to continue. - ID consult. WBC elevated 16.5 Hyponatremia - IVF NS 84ml/hr previously on sodium tabs DVT GI prophylaxis - Heparin and Pepcid Pt Condition on Discharge: Stable Discharge Disposition: Rehab Inpatient Discharge Time: <= 30 minutes Discharge Instructions DIET: Follow Instructions for: Diabetic Diet Speech Therapy-Diet Recommends: Regular Activities you can perform: Regular-No Restrictions Additional Information Written by Ella Berger, acting as scribe for Dr. Johnson on 07/17/16 at 09:02. Ella Arzola Jul 17, 2016 09:32 Mikala Johnson MD Jul 24, 2016 12:30
--- NOTE | 2016-07-17 10:29 | HHI.PR ---
Subjective Remarks Follow-up visit metabolic encephalopathy, respiratory failure, bilateral lower extremities cellulitis. Patient seen today. Awake and alert. On 2 L nasal cannula. Denies shortness of breath/dyspnea. More conversant. Requesting to go back to rehabilitation. Denies chest pain, headache, palpitations, dizziness , fevers, chills, nausea/vomiting/diarrhea. Objective Vitals Vital Signs Date Time Temp Pulse Resp B/P Pulse Ox O2 Delivery O2 Flow Rate FiO2 07/17/16 10:00 85 07/17/16 08:00 76 07/17/16 08:00 98.9 76 20 168/73 100 07/17/16 07:00 99 Nasal Cannula 2.00 07/17/16 06:00 78 07/17/16 04:00 78 07/17/16 04:00 98.9 78 15 137/82 98 07/17/16 02:00 72 07/17/16 00:00 71 07/17/16 00:00 98.1 71 17 146/68 99 07/16/16 22:00 75 07/16/16 20:31 100 Nasal Cannula 1.50 07/16/16 20:00 84 07/16/16 20:00 98.6 82 20 130/66 99 07/16/16 19:00 99 Nasal Cannula 2.00 07/16/16 18:00 78 07/16/16 16:00 81 07/16/16 16:00 98.5 82 28 134/63 100 07/16/16 14:00 85 07/16/16 12:00 81 07/16/16 12:00 98.5 78 24 123/61 94 I/O 07/16/16 07/16/16 07/16/16 07/17/16 07/17/16 07/17/16 07:00 15:00 23:00 07:00 15:00 23:00 Intake Total 350 ml 518 ml 525 ml 650 ml 300 ml Output Total 400 ml 850 ml 450 ml 700 ml Balance -50 ml -332 ml 75 ml -50 ml 300 ml Intake Oral 300 ml IV Total 350 ml 518 ml 525 ml 650 ml Output Urine Total 400 ml 850 ml 450 ml 700 ml # Bowel Movements 2 0 0 Result Diagram: 07/16/16 04207/16/16 042 Imaging Last Impressions Foot X-Ray 07/16/16 0000 Signed Impressions: Service Date/Time: Saturday, July 16, 2016 17:34 - CONCLUSION: 1. Nonspecific soft tissue swelling. No acute bone destruction demonstrated. 2. Mild talonavicular and navicular/cuneiform degenerative changes. 3. Second through fifth hammertoe. 4. Moderate-sized heel spur. Alfredo Sneed MD Chest X-Ray 07/16/16 0000 Signed Impressions: Service Date/Time: Saturday, July 16, 2016 06:54 - CONCLUSION: No acute disease. Jonathan Gibson MD Objective Remarks GENERAL: Well-nourished, well-developed patient. Not in Distress. SKIN: Warm and dry. BLE necrotic wounds, cassy wrap dsg in place. HEAD: Normocephalic. EYES: No scleral icterus. No injection or drainage. NECK: Supple, trachea midline. No JVD or lymphadenopathy. CARDIOVASCULAR: Regular rate and rhythm without murmurs, gallops, or rubs. RESPIRATORY: Breath sounds equal bilaterally. No accessory muscle use. On 2L nc. GASTROINTESTINAL: Abdomen soft, non-tender, nondistended. MUSCULOSKELETAL: No cyanosis, or edema. BACK: Nontender without obvious deformity. No CVA tenderness. EXTREMITIES: Multiple venous status ulcers nonhealing up to her knees NEURO: Awake and alert. Oriented to place, time, and person. Normal speech. Able to carry out sentence conversation but forgets and goes off topic. Procedures None A/P Problem List: (1) Cellulitis of left lower extremity ICD Code: L03.116 Status: Acute (2) Delirium due to another medical condition ICD Code: F05 Status: Acute Assessment and Plan Pt. is 61-year-old female, with multiple admissions, with history of cellulitis of legs, severe PVD, diabetes and cardiomyopathy EF of 30% was at the rehabilitation facility when she became more altered today lethargic and hypoxic. Rapid response team was called and transferred patient to ICU. In the ICU patient remains confused and lethargic responsive to pain with a stable blood pressure and saturation of 100% on 40% face mask. Today, patient has improved, awake and alert. On nasal cannula, denies SOB/ Dyspnea. requesting to go back to rehabilitation. Denies chest pain, headache, palpitations, dizziness, n/v/d. Respiratory Failure - possibly exacerbated with metabolic encephalopathy, placed on Face mask, improved now on 2L nc - Nebs scheduled, PRN - May need CPAP at night - Pulmonology Consult Altered mental status, Metabolic toxic encephalopathy - Hold all medications that could contribute. Hold anxiolytics and narcotics - Pain control with fentanyl push - We'll treat UTI with Diflucan Peripheral vascular disease - Supportive care. Wound Care. - Pain control - F/U with vascular surgeon Diabetes - Hold Levemir due to hypoglycemia - Insulin sliding scale for now, until eating better Cardiomyopathy - Coreg - Isosorbide - Monitor BP Trend Hypothyroidism - TSH 9.150 - Synthroid 150mcg daily, check freeT4, may also be related to recent acute illness. Recheck in 4 weeks. Cellulitis - Levaquin to continue. - ID consult. WBC elevated 16.5 Hyponatremia - IVF NS 84ml/hr previously on sodium tabs - Monitor BMP. DC IV fluids with adequate fluid intake. DVT GI prophylaxis - Heparin and Pepcid Full code Discussed with patient, nursing Written by Ella Berger, acting as scribe for Dr. Johnson on 07/17/16 at 09:29. The documentation accurately reflects the work performed [id number] by me Dr. Johnson on 07/17/16 at 09:29. Discharge Planning Consulted case management for placement SNF. Ella Arzola Jul 17, 2016 10:29 Mikala Johnson MD Jul 17, 2016 10:42
[2016-07-17 12:15] LABS: AUTOMATED NEUTROPHIL # 13.3 TH/MM3 (1.8-7.7); BASOPHIL % 0.3 % (0.0-2.0); EOSINOPHIL # 0.1 TH/MM3 (0-0.4); EOSINOPHIL % 0.4 % (0.0-4.0); HEMATOCRIT 25.4 % (35.0-46.0); LYMPH % 8.1 % (9.0-44.0); LYMPHOCYTE # 1.3 TH/MM3 (1.0-4.8); MEAN CELL VOLUME 75.9 FL (80.0-100.0); MEAN CORPUSCULAR HEMOGLOBIN 23.9 PG (27.0-34.0); MEAN CORPUSCULAR HGB CONC 31.5 % (32.0-36.0); MONO % 5.8 % (0.0-8.0); NEUT % 85.4 % (16.0-70.0); PLATELET COUNT 428 TH/MM3 (150-450); RED BLOOD COUNT 3.34 MIL/MM3 (4.00-5.30); RED CELL DISTRIBUTION WIDTH 17.5 % (11.6-17.2); WHITE BLOOD COUNT 15.6 TH/MM3 (4.0-11.0)
[2016-07-17 12:17] LABS: HEMO FLAGS AUTO DIFF
[2016-07-17 12:27] LABS: ALT (GPT) 42 U/L (10-53); ANION GAP 7 MEQ/L (5-15); AST (GOT) 38 U/L (15-37); BICARBONATE 26.2 MEQ/L (21.0-32.0); BLOOD UREA NITROGEN 19 MG/DL (7-18); CHLORIDE 102 MEQ/L (98-107); GLOMERULAR FILTRATION RATE 59 ML/MIN (>89); POTASSIUM 4.3 MEQ/L (3.5-5.1); SODIUM (NA) 135 MEQ/L (136-145)
--- NOTE | 2016-07-17 12:43 | HHI.NPPN ---
Subjective General Problems: Anemia Renal Failure: Chronic, Acute, Stage III History of Present Illness 61-year-old female with past medical history of hypertension, diabetes mellitus, ischemic heart disease, cardiomyopathy, chronic kidney disease, hypothyroidism who was admitted to [facility] on June 16 for cellulitis of the lower extremities. I was called to see the patient for worsening renal function. The patient has chronic kidney disease. It seems like her baseline creatinine has been varying from 1.1-1.3 most of the time and she has intermittently acute kidney failure. Additional Remarks Patient is now alert, and awake, feeling better. Review of Systems General Constitutional: Fatigue Cardiovascular Cardiac: Edema, WALLACE Objective Data Data 07/16/16 07/17/16 19:00 07:00 Intake Total 518 ml 1175 ml Output Total 850 ml 1150 ml Balance -332 ml 25 ml IV Total 518 ml 1175 ml Output Urine Total 850 ml 1150 ml # Bowel Movements 2 0 Vital Signs Date Time Temp Pulse Resp B/P Pulse Ox O2 Delivery O2 Flow Rate FiO2 07/17/16 10:43 99 Nasal Cannula 2.00 07/17/16 10:00 85 07/17/16 08:00 76 07/17/16 08:00 98.9 76 20 168/73 100 07/17/16 07:00 99 Nasal Cannula 2.00 07/17/16 06:00 78 07/17/16 04:00 78 07/17/16 04:00 98.9 78 15 137/82 98 07/17/16 02:00 72 07/17/16 00:00 71 07/17/16 00:00 98.1 71 17 146/68 99 07/16/16 22:00 75 07/16/16 20:31 100 Nasal Cannula 1.50 07/16/16 20:00 84 07/16/16 20:00 98.6 82 20 130/66 99 07/16/16 19:00 99 Nasal Cannula 2.00 07/16/16 18:00 78 07/16/16 16:00 81 07/16/16 16:00 98.5 82 28 134/63 100 07/16/16 14:00 85 -: 07/17/16 1200 07/17/16 1200 Physical Exam General Appearance: No Acute Distress, Comfortable Eyes Eye Exam: Pupils Equal Throat Throat Exam: Oral Mucosa [place] & Moist Pulmonary Resp Exam: Breath Sounds Equal, Rhonchi, Decreased Bases Cardiology CV Exam: Regular, Normal Sinus Rhythm Gastrointestinal/Abdomen GI Exam: Soft, Non-Tender, Bowel Sounds Present Genitourinary Exam: Clear Urine Extremeties Extremities Exam: Trace Edema (lower leg covered with dressing.) Neurologic Neuro Exam: Alert, Awake Psychiatric Psych Exam: Appropriate Responses Assessment/Plan Assessment Summary: JAYLAN/Acute Renal Failure, Dehydration, Hypertension, CKD Stage III Problem List: (1) Diabetes (2) Diabetic foot ulcer (3) Delirium due to another medical condition (4) Cardiomyopathy (5) Hypothyroidism (6) CHF (congestive heart failure) (7) Hypertension (8) Ulcer of heel and midfoot (9) Acute kidney failure, unspecified Plan Patient is non oliguric. BP is stable. Cultures negative so far. On Levaquin only. Continue IVF. Most likely has JAYLAN, due to pre renal and ATN. Follow urine out put and BMP. Avoid Nephrotoxins. Check BMP in AM. Problem Qualifiers (1) Diabetic foot ulcer: Ellen Willingham MD Jul 17, 2016 12:43
[2016-07-17 12:52] LABS: BASOPHILS 1 % (0-2); METAMYELOCYTES 1 % (0-1); MYELOCYTES 1 % (0-0); NEUTROPHIL # MANUAL DIFF 13.4 TH/MM3 (1.8-7.7); PLATELET ESTIMATE SMEAR NORMAL (NORMAL); PLATELET MORPHOLOGY NORMAL (NORMAL); POLYS (SEG NEUTROPHILS) 84 % (16-70); SCAN/DIFF FINAL DIFF MANUAL; WBC DIFF SAMPLE 100
[2016-07-17 13:11] LABS: ALKALINE PHOSPHATASE 145 U/L (45-117); TOTAL BILIRUBIN ADULT 0.3 MG/DL (0.2-1.0)
[2016-07-17] MEDS: ONDANSETRON HCL 4 MG/2 ML VIAL IV PRN (17:45)
[2016-07-17 18:10] LABS: BLOOD GAS BASE EXCESS -0.4 mmol/L (-2-2); BLOOD GAS CARBOXYHEMOGLOBIN 1.6 % (0-4); BLOOD GAS HCO3 23 mmol/L (22-26); BLOOD GAS METHEMOGLOBIN 0.6 % (0-2); BLOOD GAS O2 HGB SATURATION 94 % (90-100); BLOOD GAS OXYGEN CONTENT 15.2 Vol % (12.0-20.0); BLOOD GAS PCO2 32 mmHg (38-42); BLOOD GAS PO2 79 mmHg (61-120); BLOOD GAS TOTAL HGB 11.4 G/DL (12.0-16.0); CRITICAL VALUE NO; FIO2 21 %; TEMP CORR TO 98.6
[2016-07-17 18:11] LABS: DRAW SITE RT RADIAL; NUMBER OF ARTERIAL PUNCTURES 1; STAT NO; ULNAR PULSE PRESENT
--- NOTE | 2016-07-17 19:02 | MB ---
cc: KEE SKELTON DATE OF CONSULTATION 07/17/[address] Johnson REASON FOR CONSULTATION Possible sleep apnea. HISTORY OF PRESENT ILLNESS Ms. Lemos is a 61-year-old female with history of cardiomyopathy, ejection fraction 30%, DVT and she has a leg ulcer. The patient was admitted in the hospital with a cellulitis. The patient is being followed by [employer]. She complains of nausea, feels short of breath, feels very anxious. Her noted that she does have a lot of snoring. PAST MEDICAL HISTORY 1. History of diabetes mellitus 2. Foot ulcer 3. Deep venous thrombosis 4. Cardiomyopathy, 5. Hypertension, 6. Cholecystectomy 7. Oophorectomy MEDICATIONS Currently taking 1. Lactinex 1 tablet three times a day 2. Liothyronine 5 mcg. 3. Prevacid mg q. 12-hour 4. Levothyroxine 150 mcg a day. 5. Heparin 5000 q.8 h. 6. Levaquin 250 mg q.48 h. 7. Coreg 3.25 mg twice a day. 8. Toradol 30 mg q. 6-hour p.r.n. ALLERGIES [employer]AN[employer]S [employer] MEDIA SOCIAL HISTORY She is for 25 years. She has history of smoking which she quit. No alcohol abuse. 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 FAMILY HISTORY She is . She has two children. REVIEW OF SYSTEMS She walks short distance . No headache or dizziness. No deep venous thrombosis or pulmonary embolus. PHYSICAL EXAMINATION GENERAL: Anxious obese female mildly short of breath. VITAL SIGNS: Blood pressure 169/72, heart rate 70, respiration 18, temperature 98, saturation 98% on room air. HEENT: Pupils are equal and react to light. Oral mucosa and nasal mucosa normal. NECK: Supple, JVD not raised. CHEST: Air entry equal bilaterally. No rhonchi. CARDIOVASCULAR: S1, S2 normal. ABDOMEN: Benign. EXTREMITIES: She has leg ulcer. IMPRESSION 1. Symptoms suggestive of sleep apnea 2. Obesity 3. Need to rule out underlying chronic obstructive pulmonary disease. 4. Diabetes mellitus 5. Cardiomyopathy 6. Leg ulcer 7. Deep venous thrombosis PLAN Discussed with the patient and her I will check a pulmonary function study and blood gas. She will need a sleep study as an outpatient. Continue present antibiotic. Monitor blood sugar. Further treatment will depend on the course in the hospital. Thank you for this consultation. MD EPHRAIM Gaitan /5:50 PM /6:48 PM MTDGabe
[2016-07-17] MEDS: LEVOFLOXACIN 250 MG TAB PO SCH (21:32)
[2016-07-18] MEDS: CHLORHEXIDINE GLUCONATE 2 % 1 PACK (2 CLOTHS) TOP SCH (03:35)
[2016-07-18] MEDS: LEVOTHYROXINE SODIUM 150 MCG TAB PO SCH (05:37)
[2016-07-18] MEDS: HEPARIN SODIUM - SQ 10,000 UNITS/ML VIAL SQ SCH ×3 (05:37→20:45)
[2016-07-18] MEDS: ISOSORBIDE DINITRATE 5 MG TAB PO SCH ×3 (05:37→20:45)
[2016-07-18 08:00] VITALS: BP 191/80; PULSE 81; RESP 18; TEMP 97.8; O2SAT 96
[2016-07-18 08:05] LABS: BICARBONATE 26.2 MEQ/L (21.0-32.0); POTASSIUM 4.1 MEQ/L (3.5-5.1)
[2016-07-18] MEDS: DOCUSATE SODIUM 100 MG CAP PO SCH ×2 (08:56→20:45)
[2016-07-18] MEDS: ASPIRIN EC 325 MG TABEC PO SCH (08:57)
[2016-07-18] MEDS: CARVEDILOL 12.5 MG TAB PO SCH ×2 (08:57→20:44)
[2016-07-18] MEDS: LIOTHYRONINE SODIUM 5 MCG TAB PO SCH (08:57)
[2016-07-18] MEDS: SODIUM CHLORIDE 0.9% FLUSH 5 ML FLUSH IV FLUSH SCH ×2 (08:58→20:43)
[2016-07-18] MEDS: LACTOBACILLUS ACIDOPHILUS TAB PO SCH ×3 (08:58→18:39)
[2016-07-18] MEDS ORDERED: FENT25T TD (11:43)
[2016-07-18] MEDS ORDERED: HYDR-3516 PO (11:43)
[2016-07-18] MEDS ORDERED: HYDROmorphone HCL PF 1 MG/ML VIAL IV PUSH ONE (11:45)
[2016-07-18 12:00] VITALS: BP 154/68; PULSE 82; RESP 18; TEMP 98.4; O2SAT 96
--- NOTE | 2016-07-18 12:05 | HHI.PR ---
Subjective Remarks Patient in bed. Nurses changing dressings. Patient reports pain in her legs. Will give pain meds. Says she is not sob, currently she is sattign well on room air. No sob, wheezing. No n/v/d/c. Has mcconnell in . If able to ambuklate to bedside commode and do PT will remove mcconnell otherwise to have mcconnell at the SNF and be removed when patient ambulates. No n/v/d/c. Objective Vitals Vital Signs Date Time Temp Pulse Resp B/P Pulse Ox O2 Delivery O2 Flow Rate FiO2 07/17/16 20:00 Room Air 07/17/16 16:00 98.1 84 18 147/60 94 07/17/16 14:39 Nasal Cannula 2.00 I/O 07/17/16 07/17/16 07/17/16 07/18/16 07/18/16 07/18/16 07:00 15:00 23:00 07:00 15:00 23:00 Intake Total 650 ml 1015 ml Output Total 700 ml 700 ml Balance -50 ml 315 ml Intake Oral 740 ml IV Total 650 ml 275 ml Output Urine Total 700 ml 700 ml # Bowel Movements 0 1 Result Diagram: 07/17/16 1200 07/18/16 0659 Imaging Last Impressions Foot X-Ray 07/16/16 0000 Signed Impressions: Service Date/Time: Saturday, July 16, 2016 17:34 - CONCLUSION: 1. Nonspecific soft tissue swelling. No acute bone destruction demonstrated. 2. Mild talonavicular and navicular/cuneiform degenerative changes. 3. Second through fifth hammertoe. 4. Moderate-sized heel spur. Alfredo Sneed MD Chest X-Ray 07/16/16 0000 Signed Impressions: Service Date/Time: Saturday, July 16, 2016 06:54 - CONCLUSION: No acute disease. Jonathan Gibson MD Objective Remarks GENERAL: Well-nourished, well-developed patient. Not in Distress. SKIN: Warm and dry. BLE necrotic wounds, cassy wrap dsg in place. HEAD: Normocephalic. EYES: No scleral icterus. No injection or drainage. NECK: Supple, trachea midline. No JVD or lymphadenopathy. CARDIOVASCULAR: Regular rate and rhythm without murmurs, gallops, or rubs. RESPIRATORY: Breath sounds equal bilaterally. No accessory muscle use. On 2L nc. GASTROINTESTINAL: Abdomen soft, non-tender, nondistended. MUSCULOSKELETAL: No cyanosis, or edema. BACK: Nontender without obvious deformity. No CVA tenderness. EXTREMITIES: Multiple venous status ulcers nonhealing up to her knees NEURO: Awake and alert. Oriented to place, time, and person. Normal speech. Able to carry out sentence conversation but forgets and goes off topic. Procedures None Procedures None A/P Problem List: (1) Cellulitis of left lower extremity ICD Code: L03.116 Status: Acute (2) Delirium due to another medical condition ICD Code: F05 Status: Acute Assessment and Plan Pt. is 61-year-old female, with multiple admissions, with history of cellulitis of legs, severe PVD, diabetes and cardiomyopathy EF of 30% was at the rehabilitation facility when she became more altered today lethargic and hypoxic. Rapid response team was called and transferred patient to ICU. In the ICU patient remains confused and lethargic responsive to pain with a stable blood pressure and saturation of 100% on 40% face mask. Today, patient has improved, awake and alert. On nasal cannula, denies SOB/ Dyspnea. requesting to go back to rehabilitation. Denies chest pain, headache, palpitations, dizziness, n/v/d. Respiratory Failure - possibly exacerbated with metabolic encephalopathy, placed on Face mask, improved now on 2L nc - Nebs scheduled, PRN - May need CPAP at night - Pulmonology Consult Altered mental status, Metabolic toxic encephalopathy - Hold all medications that could contribute. Hold anxiolytics and narcotics - Pain control with fentanyl push - We'll treat UTI with Diflucan Peripheral vascular disease - Supportive care. Wound Care. - Pain control - F/U with vascular surgeon Diabetes - Hold Levemir due to hypoglycemia - Insulin sliding scale for now, until eating better Cardiomyopathy - Coreg - Isosorbide - Monitor BP Trend Hypothyroidism - TSH 9.150 - Synthroid 150mcg daily, check freeT4, may also be related to recent acute illness. Recheck in 4 weeks. Cellulitis - Levaquin to continue. - ID consult. WBC elevated 16.5 Hyponatremia - IVF NS 84ml/hr previously on sodium tabs - Monitor BMP. DC IV fluids with adequate fluid intake. DVT GI prophylaxis - Heparin and Pepcid Full code Discussed with patient, nurses, family at bedside. Discussed with Dr Pedraza. Cleared the patient for DC May continue levaquin for 5 more days. Mikala Johnson MD Jul 18, 2016 12:05 Mikala Johnson MD Jul 18, 2016 12:05
--- NOTE | 2016-07-18 13:55 | HHI.PR ---
Addendum to Inpatient Note Addendum Reason: Additional Documentation Additional Information Recommend Levaquin for 5 more days for possible aspiration pneumonitis. LE ulcers are chronic and based on events not likely source of infection. [place]. Will sign off please call back if any change in clinical condition. Charisse Pedrzaa MD Jul 18, 2016 13:55
[2016-07-18 14:59] LABS: AUTOMATED NEUTROPHIL # 9.3 TH/MM3 (1.8-7.7); BASOPHIL # 0.1 TH/MM3 (0-0.2); BASOPHIL % 0.8 % (0.0-2.0); EOSINOPHIL # 0.2 TH/MM3 (0-0.4); EOSINOPHIL % 1.3 % (0.0-4.0); HEMATOCRIT 28.3 % (35.0-46.0); LYMPH % 16.8 % (9.0-44.0); LYMPHOCYTE # 2.1 TH/MM3 (1.0-4.8); MEAN CORPUSCULAR HEMOGLOBIN 24.1 PG (27.0-34.0); MEAN CORPUSCULAR HGB CONC 32.2 % (32.0-36.0); MONO % 6.6 % (0.0-8.0); NEUT % 74.5 % (16.0-70.0); PLATELET COUNT 546 TH/MM3 (150-450); RED BLOOD COUNT 3.77 MIL/MM3 (4.00-5.30); RED CELL DISTRIBUTION WIDTH 17.7 % (11.6-17.2); WHITE BLOOD COUNT 12.5 TH/MM3 (4.0-11.0)
[2016-07-18 15:05] LABS: HEMO FLAGS AUTO DIFF
[2016-07-18 15:23] LABS: BICARBONATE 27.9 MEQ/L (21.0-32.0); POTASSIUM 4.2 MEQ/L (3.5-5.1)
[2016-07-18 16:00] VITALS: BP_SYST 136; BP_SYST 171; BP_DIAS 101; BP_DIAS 64; PULSE 73; PULSE 86; RESP 18; RESP 20; TEMP 97.6; TEMP 97.8; O2SAT 96; O2SAT 98
[2016-07-18 16:13] LABS: EOSINOPHILS 3 % (0-4); METAMYELOCYTES 1 % (0-1); NEUTROPHIL # MANUAL DIFF 9.8 TH/MM3 (1.8-7.7); POLYS (SEG NEUTROPHILS) 77 % (16-70); WBC DIFF SAMPLE 100
[2016-07-18 16:16] LABS: PLATELET ESTIMATE SMEAR HIGH (NORMAL); PLATELET MORPHOLOGY NORMAL (NORMAL); SCAN/DIFF FINAL DIFF MANUAL
[2016-07-18] MEDS: HYDROmorphone HCL PF 1 MG/ML VIAL IV PUSH PRN ×2 (16:38→21:53)
--- NOTE | 2016-07-18 17:20 | HHI.NPPN ---
Subjective General Problems: Anemia Renal Failure: Chronic, Acute, Stage III History of Present Illness 61-year-old female with past medical history of hypertension, diabetes mellitus, ischemic heart disease, cardiomyopathy, chronic kidney disease, hypothyroidism who was admitted to [facility] on June 16 for cellulitis of the lower extremities. I was called to see the patient for worsening renal function. The patient has chronic kidney disease. It seems like her baseline creatinine has been varying from 1.1-1.3 most of the time and she has intermittently acute kidney failure. Additional Remarks Patient is alert, and awake, feeling better, no complain. Review of Systems General Constitutional: Fatigue Cardiovascular Cardiac: Edema, WALLACE Objective Data Data 07/17/16 07/18/16 19:00 07:00 Intake Total 1015 ml Output Total 700 ml Balance 315 ml Intake Oral 740 ml IV Total 275 ml Output Urine Total 700 ml # Bowel Movements 1 Vital Signs Date Time Temp Pulse Resp B/P Pulse Ox O2 Delivery O2 Flow Rate FiO2 07/17/16 20:00 Room Air -: 07/18/16 1428 07/18/16 1428 Physical Exam General Appearance: No Acute Distress, Comfortable Eyes Eye Exam: Pupils Equal Throat Throat Exam: Oral Mucosa [place] & Moist Pulmonary Resp Exam: Breath Sounds Equal, Rhonchi, Decreased Bases Cardiology CV Exam: Regular, Normal Sinus Rhythm Gastrointestinal/Abdomen GI Exam: Soft, Non-Tender, Bowel Sounds Present Genitourinary Exam: Clear Urine Extremeties Extremities Exam: Trace Edema (lower leg covered with dressing.) Neurologic Neuro Exam: Alert, Awake Psychiatric Psych Exam: Appropriate Responses Assessment/Plan Assessment Summary: JAYLAN/Acute Renal Failure, Dehydration, Hypertension, CKD Stage III Problem List: (1) Diabetes (2) Diabetic foot ulcer (3) Delirium due to another medical condition (4) Cardiomyopathy (5) Hypothyroidism (6) CHF (congestive heart failure) (7) Hypertension (8) Ulcer of heel and midfoot (9) Acute kidney failure, unspecified Plan Patient is non oliguric. BP is occ. elevated. Cultures negative so far. On Levaquin only. Most likely has JAYLAN, due to pre renal and ATN. Creatinine now normalized. I will sign off from Nephrology. Problem Qualifiers (1) Diabetic foot ulcer: Ellen Willingham MD Jul 18, 2016 17:20 Ellen Willingham MD Jul 18, 2016 17:20
[2016-07-18] MEDS: SODIUM CHLOR 0.9% 1000 ML INJ 1,000 ML IV SCH (19:12)
[2016-07-18] MEDS: ACETAMINOPHEN/HYDROcodone 325 MG/5 MG TAB PO PRN (19:20)
--- NOTE | 2016-07-18 19:24 | HHI.PR ---
Subjective Remarks 61 YO WF withDM,CMP,DVT,Leg ulcer Gets anxious and sob Weaned to RA No CP,fever or chills Objective Vital Signs Vital Signs Date Time Temp Pulse Resp B/P Pulse Ox O2 Delivery O2 Flow Rate FiO2 07/18/16 16:00 97.6 86 18 136/64 98 07/18/16 12:00 98.4 82 18 154/68 96 07/18/16 08:00 97.8 81 18 191/80 96 07/17/16 20:00 Room Air I/O 07/17/16 07/17/16 07/17/16 07/18/16 07/18/16 07/18/16 07:00 15:00 23:00 07:00 15:00 23:00 Intake Total 650 ml 1015 ml 480 ml Output Total 700 ml 700 ml 400 ml Balance -50 ml 315 ml 80 ml Intake Oral 740 ml 480 ml IV Total 650 ml 275 ml Output Urine Total 700 ml 700 ml 400 ml Stool Total 0 ml # Bowel Movements 0 1 Result Diagram: 07/18/16 1428 07/18/16 1428 Objective Remarks GENERAL: Obese WF, NAD SKIN: Warm and dry. HEAD: Normocephalic. EYES: No scleral icterus. No injection or drainage. NECK: Supple, trachea midline. No JVD or lymphadenopathy. CARDIOVASCULAR: Regular rate and rhythm without murmurs, gallops, or rubs. RESPIRATORY: Breath sounds equal bilaterally. No accessory muscle use. GASTROINTESTINAL: Abdomen soft, non-tender, nondistended. MUSCULOSKELETAL: No cyanosis, or edema. BACK: Nontender without obvious deformity. No CVA tenderness. A/P Assessment and Plan LIVE likly DM Leg ulcer DVT CMP PLAN: Will need sleep study as out pt Monitor BS Cont Abx Available prn over weekend. Lito Harris MD Jul 18, 2016 19:24
[2016-07-18 20:21] VITALS: BP 170/78; PULSE 92; RESP 18; TEMP 97.7; O2SAT 96
[2016-07-18] MEDS: FAMOTIDINE 20 MG/2 ML VIAL IV PUSH SCH (20:43)
[2016-07-18 23:55] VITALS: BP 156/70; PULSE 83; RESP 20; TEMP 98.9; O2SAT 98
[2016-07-19] VITALS (8 sets, daily range): BP systolic 145–166; BP diastolic 68–89; PULSE 80–104; RESP 18–24; TEMP 97.7–99.1; O2SAT 93–98
[2016-07-19] MEDS: CHLORHEXIDINE GLUCONATE 2 % 1 PACK (2 CLOTHS) TOP SCH (04:00)
[2016-07-19] MEDS: HEPARIN SODIUM - SQ 10,000 UNITS/ML VIAL SQ SCH ×3 (05:51→20:36)
[2016-07-19] MEDS: ISOSORBIDE DINITRATE 5 MG TAB PO SCH ×3 (05:51→20:34)
[2016-07-19] MEDS: LEVOTHYROXINE SODIUM 150 MCG TAB PO SCH (05:51)
[2016-07-19 07:02] LABS: AUTOMATED NEUTROPHIL # 7.9 TH/MM3 (1.8-7.7); BASOPHIL % 0.5 % (0.0-2.0); EOSINOPHIL # 0.1 TH/MM3 (0-0.4); EOSINOPHIL % 1.4 % (0.0-4.0); HEMATOCRIT 27.7 % (35.0-46.0); LYMPHOCYTE # 1.6 TH/MM3 (1.0-4.8); MEAN CELL VOLUME 75.7 FL (80.0-100.0); MEAN CORPUSCULAR HEMOGLOBIN 23.8 PG (27.0-34.0); MEAN CORPUSCULAR HGB CONC 31.4 % (32.0-36.0); MONO % 7.8 % (0.0-8.0); NEUT % 75.3 % (16.0-70.0); PLATELET COUNT 486 TH/MM3 (150-450); RED BLOOD COUNT 3.66 MIL/MM3 (4.00-5.30); RED CELL DISTRIBUTION WIDTH 17.8 % (11.6-17.2); WHITE BLOOD COUNT 10.5 TH/MM3 (4.0-11.0)
[2016-07-19 07:32] LABS: BICARBONATE 26.2 MEQ/L (21.0-32.0); POTASSIUM 4.2 MEQ/L (3.5-5.1)
[2016-07-19 07:42] LABS: HEMO FLAGS AUTO DIFF
[2016-07-19] MEDS: SODIUM CHLOR 0.9% 1000 ML INJ 1,000 ML IV SCH ×2 (08:50→15:14)
[2016-07-19] MEDS: LIOTHYRONINE SODIUM 5 MCG TAB PO SCH (08:52)
[2016-07-19] MEDS: ASPIRIN EC 325 MG TABEC PO SCH ×2 (08:52→09:34)
[2016-07-19] MEDS: CARVEDILOL 12.5 MG TAB PO SCH ×2 (08:52→20:34)
[2016-07-19] MEDS: DOCUSATE SODIUM 100 MG CAP PO SCH ×2 (08:52→20:35)
[2016-07-19] MEDS: SODIUM CHLORIDE 0.9% FLUSH 5 ML FLUSH IV FLUSH SCH ×2 (08:52→20:36)
[2016-07-19] MEDS: ACETAMINOPHEN/HYDROcodone 325 MG/5 MG TAB PO PRN ×2 (08:56→20:50)
[2016-07-19 09:34] LABS: BLOOD GAS BASE EXCESS 1.4 mmol/L (-2-2); BLOOD GAS CARBOXYHEMOGLOBIN 1.7 % (0-4); BLOOD GAS HCO3 25 mmol/L (22-26); BLOOD GAS METHEMOGLOBIN 0.5 % (0-2); BLOOD GAS O2 HGB SATURATION 94 % (90-100); BLOOD GAS OXYGEN CONTENT 12.1 Vol % (12.0-20.0); BLOOD GAS PCO2 35 mmHg (38-42); BLOOD GAS PO2 77 mmHg (61-120); CRITICAL VALUE NO; DRAW SITE RT RADIAL; FIO2 21 %; NUMBER OF ARTERIAL PUNCTURES 1; STAT YES; TEMP CORR TO 98.6; ULNAR PULSE PRESENT
--- NOTE | 2016-07-19 09:45 | HHI.PR ---
Subjective Remarks Herminia was called in this morning. Patient with history of prior altered mental status episode and having another episode. Patient is hemodynamically stable. Sitting up in bed, awake, follows commands in all 4 extremities. Very slow to answer questions and requires prompting, she is oriented to person, place, or time. CN 2 - 12 grossly intact. No focal deficits. BP and HR sable. O2 stable on room air. Family ( son at bedside) . Patient appears anxious. Patient denies having any chest pain , no sob, n/v/d/ c. Says she has pain in her legs, pain is controlled. Denies tremors. No siezure activity. Never has seizures. Discussed with Dr Red as well form ICU. Patient appear stable at this time and doesn't need ICU. Objective Vitals Vital Signs Date Time Temp Pulse Resp B/P Pulse Ox O2 Delivery O2 Flow Rate FiO2 07/19/16 08:00 97.7 80 22 166/79 98 07/19/16 06:00 98.6 84 18 166/77 95 07/18/16 23:55 98.9 83 20 156/70 98 07/18/16 20:21 97.7 92 18 170/78 96 07/18/16 20:00 Room Air 07/18/16 16:00 97.6 86 18 136/64 98 07/18/16 12:00 98.4 82 18 154/68 96 I/O 07/18/16 07/18/16 07/18/16 07/19/16 07/19/16 07/19/16 07:00 15:00 23:00 07:00 15:00 23:00 Intake Total 480 ml Output Total 400 ml 100 ml Balance 80 ml -100 ml Intake Oral 480 ml Output Urine Total 400 ml 100 ml Stool Total 0 ml # Voids 1 # Bowel Movements 0 Result Diagram: 07/19/16 0556 07/19/16 0556 Imaging Last Impressions Head CT 07/19/16 0000 Signed Impressions: Service Date/Time: Tuesday, July 19, 2016 09:58 - CONCLUSION: No acute intracranial findings. João Otoole MD Foot X-Ray 07/16/16 0000 Signed Impressions: Service Date/Time: Saturday, July 16, 2016 17:34 - CONCLUSION: 1. Nonspecific soft tissue swelling. No acute bone destruction demonstrated. 2. Mild talonavicular and navicular/cuneiform degenerative changes. 3. Second through fifth hammertoe. 4. Moderate-sized heel spur. Alfredo Sneed MD Chest X-Ray 07/16/16 0000 Signed Impressions: Service Date/Time: Saturday, July 16, 2016 06:54 - CONCLUSION: No acute disease. Jonathan Gibson MD Objective Remarks GENERAL: Patient is a 61 yo female, BMI of 38, appearing anxious. Well-nourished , well-developed patient. SKIN: Warm and dry. BLE necrotic wounds, cassy wrap dsg in place. HEAD: Normocephalic. EYES: No scleral icterus. No injection or drainage. NECK: Supple, trachea midline. No JVD or lymphadenopathy. CARDIOVASCULAR: Regular rate and rhythm without murmurs, gallops, or rubs. RESPIRATORY: Breath sounds equal bilaterally. No accessory muscle use. On 2L nc. GASTROINTESTINAL: Abdomen soft, non-tender, nondistended. MUSCULOSKELETAL: No cyanosis, or edema. BACK: Nontender without obvious deformity. No CVA tenderness. EXTREMITIES: Multiple venous status ulcers nonhealing up to her knees NEURO: Awake and alert. Disoriented to place, time, and person. Normal speech. Able to carry out sentence conversation but forgets and goes off topic, need redirection. Procedures None Procedures None A/P Problem List: (1) Cellulitis of left lower extremity ICD Code: L03.116 Status: Acute (2) Delirium due to another medical condition ICD Code: F05 Status: Acute Assessment and Plan Pt. is 61-year-old female, with multiple admissions, with history of cellulitis of legs, severe PVD, diabetes and cardiomyopathy EF of 30% was at the rehabilitation facility when she became more altered today lethargic and hypoxic. Rapid response team was called and transferred patient to ICU. In the ICU patient remains confused and lethargic responsive to pain with a stable blood pressure and saturation of 100% on 40% face mask. Today, patient has improved, awake and alert. On nasal cannula, denies SOB/ Dyspnea. requesting to go back to rehabilitation. Denies chest pain, headache, palpitations, dizziness, n/v/d. Respiratory Failure - possibly exacerbated with metabolic encephalopathy, placed on Face mask, improved now on 2L nc - Nebs scheduled, PRN - May need CPAP at night - Pulmonology Consult Altered mental status Poss Metabolic toxic encephalopathy. 2nd episode Possible seizure - Hold all medications that could contribute. Hold anxiolytics and narcotic Stat head CT Check ABG Ordered EEG to r/o seizure. Patient agitated and not cooperative for EEG, family at bedside. Give IV benadryl before EEG. Discussed with the nurse. EEG with poss seizure Give keppra IV 500 . Consult neurology. Psychosis. Consult psychiatry. Peripheral vascular disease - Supportive care. Wound Care. - Pain control - F/U with vascular surgeon Diabetes - Hold Levemir due to hypoglycemia - Insulin sliding scale for now, until eating better Cardiomyopathy - Coreg - Isosorbide - Monitor BP Trend Hypothyroidism - TSH 9.150 - Synthroid 150mcg daily, check freeT4, may also be related to recent acute illness. Recheck in 4 weeks. Cellulitis - Levaquin to continue. - ID consult. WBC elevated 16.5 Hyponatremia - IVF NS 84ml/hr previously on sodium tabs - Monitor BMP. DC IV fluids with adequate fluid intake. DVT GI prophylaxis - Heparin and Pepcid Full code Discussed with patient, nurses, family at bedside. Discussed with Dr Holcomb ICU, [facility] nurse. Discussed with Dr Pedraza. Cleared the patient for DC May continue levaquin for 5 more days. Mikala Johnson MD Jul 19, 2016 09:45
--- NOTE | 2016-07-19 10:33 | RADRPT ---
EXAM DATE/TIME: 07/19/2016 09:58 [facility] COMPARISON: CT BRAIN W/O CONTRAST, June 20, 2016, 17:52. INDICATIONS : Altered mental status. RADIATION DOSE: 42.62 CTDIvol (mGy) MEDICAL HISTORY : Diabetes mellitus type 2. Hypertension. SURGICAL HISTORY : None. ENCOUNTER: Initial ACUITY: 1 day PAIN SCALE: 0/10 LOCATION: cranial TECHNIQUE: Multiple contiguous axial images were obtained of the head. Using automated exposure control and adj ustment of the mA and/or kV according to patient size, radiation dose was kept as low as reasonably a chievable to obtain optimal diagnostic quality images. FINDINGS: CEREBRUM: The ventricles are normal for age. No evidence of midline shift, mass lesion, hemorrhage or acute in farction. No extra-axial fluid collections are seen. POSTERIOR FOSSA: The cerebellum and brainstem are intact. The 4th ventricle is midline. The cerebellopontine angle i s unremarkable. EXTRACRANIAL: The visualized portion of the orbits is intact. SKULL: The calvaria is intact. No evidence of skull fracture. CONCLUSION: No acute intracranial findings. João Otoole MD on July 19, 2016 at 10:30 Board Certified Radiologist. This report was verified electronically.
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
[2016-07-19] MEDS ORDERED: diphenhydrAMINE HCL 50 MG/ML VIAL ONE (11:20)
[2016-07-19] MEDS: FAMOTIDINE 20 MG/2 ML VIAL IV PUSH SCH ×2 (12:19→21:19)
[2016-07-19] MEDS: LACTOBACILLUS ACIDOPHILUS TAB PO SCH ×3 (12:19→17:49)
[2016-07-19] MEDS: levETIRAcetam INJ 500 MG in SODIUM CHLORIDE 0.9% INJ 100 ML IV SCH ×2 (13:04→20:36)
[2016-07-19 13:31] LABS: BANDS 8 % (0-6); METAMYELOCYTES 1 % (0-1); NEUTROPHIL # MANUAL DIFF 8.5 TH/MM3 (1.8-7.7); POLYS (SEG NEUTROPHILS) 72 % (16-70); WBC DIFF SAMPLE 100
[2016-07-19 13:32] LABS: PLATELET ESTIMATE SMEAR HIGH (NORMAL); PLATELET MORPHOLOGY NORMAL (NORMAL); SCAN/DIFF FINAL DIFF MANUAL
--- NOTE | 2016-07-19 15:08 | HHI.PR ---
Subjective Remarks I [facility] patient with history of prior altered mental status episode. currently having another episode. patient not hemodynamically stable. sitting up in bed on my exam. patient awake, follows commands in all 4 extremities. very slow to answer questions and requires prompting. not oriented to person, place, or time. CN 2 - 12 grossly intact. no focal deficits. BP and HR sable. o2 stable on room air. Assessment: 61yF with a recurrent episode of altered mental status. differential diagnosis could be seizure or metabolic problem, much less likely to be stroke given no focal deficits. Active Problems: Acute altered mental status Possible Metabolic encephalopathy Possible seizure Recommendations: -- stat head CT -- ABG -- could consider giving narcan, given this episode came after giving Corona, but given her o2 sat and respirations are normal, unlikely to be from the opiate. -- would recommend EEG -- I do not think the patient meets criteria for ICU transfer at this moment. I have conveyed these recommendations to Dr. Johnson, who agrees with the plan and feels comfortable keeping the patient on the floor. Terrance Maloney MD Jul 19, 2016 15:08
--- NOTE | 2016-07-19 16:48 | MB ---
cc: CAMMY SHERIFF M.D. DATE OF CONSULTATION 07/19/16 1954 REASON FOR CONSULTATION Change in mental status, possible seizure. HISTORY OF PRESENT ILLNESS The patient is a 61 year old woman who I am asked to evaluate for ongoing confusion. She was admitted multiple times with cellulitis of the legs, severe PVD, diabetes, cardiomegaly, EF of 30%, was in rehab facility at [place] when she became more altered on 07/15/2016, rapid response called. She was transferred to the ICU, placed on oxygen 40% face mask. Since then, she has been followed by the primary team for her current issues. She is now on two liters nasal cannula, possible need of C-PAP at night and pulmonary eval. Her anxiolytics and narcotics are on hold because of ongoing encephalopathy possible. She was started on Keppra for possible seizure prevention 500 mg twice a day. She is on p.r.n. Haldol, Ativan, famotidine, Dilaudid p.r.n., [place] p.r.n., Synthroid, subcu heparin, isosorbide dinitrate, Levaquin, carvedilol. PHYSICAL EXAMINATION On exam vitals temperature 99.1, pulse 80, respiratory rate 22, blood pressure 162/69, satting at 93% room air. She is awake and alert. Her son is at bedside. She calls him by his name and then she calls him something else. She is confused. She cannot tell me where she is at. She is able to tell me her date of but not her age. Her speech otherwise is fluent. Smiling. Pupils reactive. Face symmetrical. She seems to move everything equally, no lateralizing weakness. LABORATORY DATA Labs are reviewed. White count is 10.5, hemoglobin 8.7, hematocrit 27.7. Her platelets are 486,000 with band neutrophils of 8. Chemistries - GFR 70, glucose 303. Urine - no culture. Microbiology - no growth in 48 hours. In the urine, no growth in her blood cultures in four days. IMAGING STUDIES Head CT did not show anything acute. Last chest x-ray no acute process. Some questionable PLEDS on her EEG. I will go ahead and reach them, but a verbal with possible PLEDS right frontal parietal. IMPRESSION A 61-year-old woman with ongoing encephalopathy, questionably abnormal electroencephalogram, report pending. I will go ahead and continue her Keppra for now 500 mg twice a day. We will get an MRI of the brain to see if there is actual structural abnormality over that right side where there are reported to be PLEDS. Maintain seizure precautions. She may need some Ativan prior to her going to MRI and likely need a repeat EEG in 24 hours. MD TOBY Boss/ /2:45 PM /4:34 PM
--- NOTE | 2016-07-19 17:08 | MG ---
cc: LEO JOHNSON MD, DALIA M.D. Lab No: [id number] Date: 07/19/16 Age: 61 Sex: F Race: DATE OF : REFERRING Dr. Johnson ROOM [id number] Without hyperventilation or photic. Awake, agitated, confused. CT is negative. Came in from [facility]. A 61-year-old woman with altered mental status, hypoxia, history of thyroid disease, hyperlipidemia, chronic cellulitis of legs. On [place], Cytomel, Synthroid, heparin, Isordil, Coreg, Aspirin and antibiotics, and I believe Keppra was started after the EEG. DESCRIPTION OF RECORD The patient is crying and grunting during the recording. High amplitude waves noted more over the right hemisphere with a lot of eye movement artifact as well. Background is predominantly of slowing of 2 to 2-1/2 Hz sometimes 3 Hz consistent with delta waves with some questionable PLEDs. No hyperventilation nor any photic stimulation performed. Abnormal EEG due to moderate slowing and high amplitude waves bilaterally but some questionable PLEDs over the right hemisphere, certainly concerning for possible seizure focus in this patient but there is also moderate encephalopathy noted. Also note some spike waves and they are seen bilaterally. The patient will undergo an MRI, continue Keppra and likely repeat EEG in 24 hours. Clinical correlation. Althea Rodriguez MD DF/ABIODUN /3:18 PM /4:53 PM
[2016-07-19] MEDS: LORazepam 2 MG/ML VIAL IV PUSH PRN ×2 (17:46→23:10)
[2016-07-19] MEDS: HALOPERIDOL LACTATE 5 MG/ML AMP IM PRN (18:02)
[2016-07-19] MEDS: LEVOFLOXACIN 250 MG TAB PO SCH (20:35)
[2016-07-19] MEDS: SODIUM CHLORIDE 0.9% FLUSH 5 ML FLUSH IV FLUSH PRN ×2 (23:10→23:37)
[2016-07-19] MEDS: HYDROmorphone HCL PF 1 MG/ML VIAL IV PUSH PRN (23:37)
[2016-07-20] VITALS (10 sets, daily range): BP systolic 130–175; BP diastolic 62–83; PULSE 86–127; RESP 24–40; TEMP 98.3–99.9; O2SAT 93–99
[2016-07-20] MEDS: CHLORHEXIDINE GLUCONATE 2 % 1 PACK (2 CLOTHS) TOP SCH (04:00)
[2016-07-20 04:53] LABS: BLOOD GAS BASE EXCESS -0.3 mmol/L (-2-2); BLOOD GAS CARBOXYHEMOGLOBIN 1.7 % (0-4); BLOOD GAS HCO3 23 mmol/L (22-26); BLOOD GAS METHEMOGLOBIN 0.3 % (0-2); BLOOD GAS O2 HGB SATURATION 97 % (90-100); BLOOD GAS OXYGEN CONTENT 13.6 Vol % (12.0-20.0); BLOOD GAS PCO2 34 mmHg (38-42); BLOOD GAS PO2 122 mmHg (61-120); BLOOD GAS TOTAL HGB 9.8 G/DL (12.0-16.0); CRITICAL VALUE NO; DRAW SITE RT RADIAL; LITER FLOW 3 L/M; NUMBER OF ARTERIAL PUNCTURES 1; OXYGEN DEVICE NASAL CANNULA; STAT YES; TEMP CORR TO 98.6; ULNAR PULSE PRESENT
--- NOTE | 2016-07-20 06:05 | RADRPT ---
EXAM DATE/TIME: 07/20/2016 04:59 [facility] COMPARISON: CHEST SINGLE AP, July 16, 2016, 6:54. INDICATIONS : Short of Breath MEDICAL HISTORY : Hypercholesterolemia. Diabetes mellitus type II. Hypertension. SURGICAL HISTORY : None. ENCOUNTER: Subsequent ACUITY: 2 weeks PAIN SCORE: Non-responsive. LOCATION: Bilateral chest FINDINGS: A single view of the chest demonstrates the lungs to be symmetrically aerated without evidence of mas s, infiltrate or effusion. The cardiomediastinal contours are unremarkable. Osseous structures are intact. CONCLUSION: No acute disease. Addy Hillman MD on July 20, 2016 at 6:03 Board Certified Radiologist. This report was verified electronically.
[2016-07-20] MEDS: LEVOTHYROXINE SODIUM 150 MCG TAB PO SCH (06:30)
[2016-07-20] MEDS: HEPARIN SODIUM - SQ 10,000 UNITS/ML VIAL SQ SCH ×3 (06:30→21:00)
[2016-07-20] MEDS: ISOSORBIDE DINITRATE 5 MG TAB PO SCH ×3 (06:30→20:58)
[2016-07-20] MEDS: SODIUM CHLOR 0.9% 1000 ML INJ 1,000 ML IV SCH ×2 (07:09→18:13)
[2016-07-20] MEDS: levETIRAcetam INJ 500 MG in SODIUM CHLORIDE 0.9% INJ 100 ML IV SCH (08:19)
[2016-07-20] MEDS: FAMOTIDINE 20 MG/2 ML VIAL IV PUSH SCH ×2 (08:21→21:00)
[2016-07-20] MEDS: DOCUSATE SODIUM 100 MG CAP PO SCH ×2 (08:21→20:58)
[2016-07-20] MEDS: SODIUM CHLORIDE 0.9% FLUSH 5 ML FLUSH IV FLUSH SCH ×2 (08:21→21:02)
[2016-07-20] MEDS: LACTOBACILLUS ACIDOPHILUS TAB PO SCH ×3 (08:22→17:34)
[2016-07-20] MEDS: ASPIRIN EC 325 MG TABEC PO SCH (08:22)
[2016-07-20] MEDS: CARVEDILOL 12.5 MG TAB PO SCH ×2 (08:22→21:02)
[2016-07-20] MEDS: LIOTHYRONINE SODIUM 5 MCG TAB PO SCH (08:22)
[2016-07-20] MEDS: ACETAMINOPHEN/HYDROcodone 325 MG/5 MG TAB PO PRN (08:43)
--- NOTE | 2016-07-20 09:33 | RADRPT ---
EXAM DATE/TIME: 07/20/2016 09:15 [facility] COMPARISON: CT BRAIN W/O CONTRAST, July 19, 2016, 9:58. INDICATIONS : Altered mental status. MEDICAL HISTORY : Hypertension. Diabetes mellitus type 2. SURGICAL HISTORY : Cholecystectomy. Hysterectomy. ENCOUNTER: Initial ACUITY: 1 day PAIN SCORE: 0/10 LOCATION: cranial TECHNIQUE: Multiplanar, multisequence MRI of the brain was performed without contrast. FINDINGS: CEREBRUM: The ventricles are normal for age. No evidence of midline shift, mass lesion, hemorrhage or acute in farction. No extraaxial fluid collections are seen. The pituitary gland and suprasellar cistern are normal in configuration. WHITE MATTER: Scattered moderate severity flair signal abnormality seen in the deep and periventricular white matte r of both cerebral hemispheres. POSTERIOR FOSSA: The cerebellum and brainstem are intact. The 4th ventricle is midline. The cerebellopontine angle is unremarkable. The cerebellar tonsils are normal in position. DIFFUSION IMAGING: No focal areas of restricted diffusion are seen. No evidence of acute infarction. EXTRACRANIAL: The visualized portions of the orbits and paranasal sinuses are unremarkable. CONCLUSION: No acute intracranial abnormality. Moderately severe chronic white matter changes, nonspecific but mo st likely small vessel ischemia. Alfredo Sneed MD on July 20, 2016 at 9:30 Board Certified Radiologist. This report was verified electronically.
[2016-07-20 09:56] LABS: AUTOMATED NEUTROPHIL # 13.2 TH/MM3 (1.8-7.7); BASOPHIL # 0.1 TH/MM3 (0-0.2); BASOPHIL % 0.4 % (0.0-2.0); EOSINOPHIL # 0.1 TH/MM3 (0-0.4); EOSINOPHIL % 0.5 % (0.0-4.0); LYMPH % 12.2 % (9.0-44.0); MEAN CELL VOLUME 75.2 FL (80.0-100.0); MEAN CORPUSCULAR HEMOGLOBIN 23.4 PG (27.0-34.0); MEAN CORPUSCULAR HGB CONC 31.1 % (32.0-36.0); NEUT % 79.9 % (16.0-70.0); PLATELET COUNT 465 TH/MM3 (150-450); RED BLOOD COUNT 3.59 MIL/MM3 (4.00-5.30); RED CELL DISTRIBUTION WIDTH 17.8 % (11.6-17.2); WHITE BLOOD COUNT 16.5 TH/MM3 (4.0-11.0)
[2016-07-20 10:00] LABS: HEMO FLAGS AUTO DIFF
[2016-07-20 10:16] LABS: BICARBONATE 26.9 MEQ/L (21.0-32.0); MAGNESIUM 1.8 MG/DL (1.5-2.5); POTASSIUM 3.6 MEQ/L (3.5-5.1)
[2016-07-20 11:28] LABS: BANDS 12 % (0-6); NEUTROPHIL # MANUAL DIFF 13.7 TH/MM3 (1.8-7.7); POLYS (SEG NEUTROPHILS) 71 % (16-70); WBC DIFF SAMPLE 100
[2016-07-20 11:29] LABS: PLATELET ESTIMATE SMEAR HIGH (NORMAL); PLATELET MORPHOLOGY NORMAL (NORMAL); SCAN/DIFF FINAL DIFF MANUAL
--- NOTE | 2016-07-20 11:40 | RADRPT ---
EXAM DATE/TIME: 07/20/2016 11:29 [facility] COMPARISON: CHEST SINGLE AP, July 20, 2016, 4:59. INDICATIONS : Short of breath MEDICAL HISTORY : Hypercholesterolemia. Diabetes mellitus type II. Hypertension. SURGICAL HISTORY : None. ENCOUNTER: Subsequent ACUITY: 2 weeks PAIN SCORE: Non-responsive. LOCATION: Bilateral chest FINDINGS: A single view of the chest demonstrates the lungs to be symmetrically aerated without evidence of mas s, infiltrate or effusion. The cardiomediastinal contours are unremarkable. Osseous structures are intact. CONCLUSION: No evidence of acute cardiopulmonary disease. Alfredo Sneed MD on July 20, 2016 at 11:38 Board Certified Radiologist. This report was verified electronically.
[2016-07-20 11:51] LABS: BLOOD GAS BASE EXCESS 1.9 mmol/L (-2-2); BLOOD GAS CARBOXYHEMOGLOBIN 1.7 % (0-4); BLOOD GAS HCO3 25 mmol/L (22-26); BLOOD GAS METHEMOGLOBIN 0.6 % (0-2); BLOOD GAS O2 HGB SATURATION 92 % (90-100); BLOOD GAS OXYGEN CONTENT 11.5 Vol % (12.0-20.0); BLOOD GAS PCO2 35 mmHg (38-42); BLOOD GAS PO2 67 mmHg (61-120); BLOOD GAS TOTAL HGB 8.9 G/DL (12.0-16.0); CRITICAL VALUE NO; DRAW SITE RT RADIAL; FIO2 21 %; NUMBER OF ARTERIAL PUNCTURES 1; STAT YES; TEMP CORR TO 98.6; ULNAR PULSE PRESENT
--- NOTE | 2016-07-20 12:12 | HHI.PYPN ---
Subjective Remarks Patient was here for psychiatric evaluation today, she was seeing a bedside in the medical floor, her son was present during the interview, patient seems to be awake and alert, but very confused, no able to have a logical conversation or answer in a coherent manner most of our questions. She does have some short periods of lucidity in which she can recognize her son, but most of the time today she has been confounding her son with his grandfather. No agitation, no aggressive behavior, no behavioral dysregulation observed at this moment. Review of Systems ROS Limitations: Uncooperative Objective Alert: Yes [place]: Person Mood: Calm Affect: Labile Memory Intact: Comment (impaired) Hallucinations: Other (no reports) Delusions: No Delusion Type: Other (no observed) Suicidal: Ideation (she denies) Homicidal: Ideation (she denies) Insight/Judgement poor Labs Test 07/20/16 07/20/16 07/20/16 04:39 09:32 11:45 Blood Gas Puncture Site RT RADIAL RT RADIAL Blood Gas Patient Temperature 98.6 98.6 Blood Gas HCO3 23 mmol/L 25 mmol/L Blood Gas Base Excess -0.3 mmol/L 1.9 mmol/L Blood Gas Oxygen Saturation 97 % 92 % Arterial Blood pH 7.45 7.47 Arterial Blood Partial 34 mmHg 35 mmHg Pressure CO2 Arterial Blood Partial 122 mmHg 67 mmHg Pressure O2 Arterial Blood Oxygen Content 13.6 Vol % 11.5 Vol % Arterial Blood 1.7 % 1.7 % Carboxyhemoglobin Arterial Blood Methemoglobin 0.3 % 0.6 % Blood Gas Hemoglobin 9.8 G/DL 8.9 G/DL Oxygen Delivery Device NASAL CANNULA Blood Gas Liter Flow 3 L/M White Blood Count 16.5 TH/MM3 Red Blood Count 3.59 MIL/MM3 Hemoglobin 8.4 GM/DL Hematocrit 27.0 % Mean Corpuscular Volume 75.2 FL Mean Corpuscular Hemoglobin 23.4 PG Mean Corpuscular Hemoglobin 31.1 % Concent Red Cell Distribution Width 17.8 % Platelet Count 465 TH/MM3 Mean Platelet Volume 6.2 FL Neutrophils (%) (Auto) 79.9 % Lymphocytes (%) (Auto) 12.2 % Monocytes (%) (Auto) 7.0 % Eosinophils (%) (Auto) 0.5 % Basophils (%) (Auto) 0.4 % Neutrophils # (Auto) 13.2 TH/MM3 Lymphocytes # (Auto) 2.0 TH/MM3 Monocytes # (Auto) 1.2 TH/MM3 Eosinophils # (Auto) 0.1 TH/MM3 Basophils # (Auto) 0.1 TH/MM3 CBC Comment AUTO DIFF Differential Total Cells 100 Counted Neutrophils % (Manual) 71 % Band Neutrophils % 12 % Lymphocytes % 9 % Monocytes % 8 % Neutrophils # (Manual) 13.7 TH/MM3 Differential Comment FINAL DIFF MANUAL Platelet Estimate HIGH Platelet Morphology Comment NORMAL Sodium Level 137 MEQ/L Potassium Level 3.6 MEQ/L Chloride Level 99 MEQ/L Carbon Dioxide Level 26.9 MEQ/L Anion Gap 11 MEQ/L Blood Urea Nitrogen 12 MG/DL Creatinine 0.78 MG/DL Estimat Glomerular Filtration 75 ML/MIN Rate Random Glucose 289 MG/DL Calcium Level 8.1 MG/DL Magnesium Level 1.8 MG/DL Blood Gas Inspired Oxygen 21 % Date/Time Procedure Status Source Growth 07/15/16 22:00 Urine Culture - Final Complete Urine Catheterized Urine NO GROWTH IN 48 HOURS. 07/15/16 21:35 Aerobic Blood Culture - Final Complete Blood Peripheral NO GROWTH IN 5 DAYS 07/15/16 21:35 Anaerobic Blood Culture - Final Complete Blood Peripheral NO GROWTH IN 5 DAYS Vitals/IOs Vital Signs Date Time Temp Pulse Resp B/P Pulse Ox O2 Delivery O2 Flow Rate FiO2 07/20/16 08:46 94 07/20/16 08:46 Nasal Cannula 3.00 07/20/16 08:00 99.7 36 167/75 96 Intake and Output 07/19/16 07/19/16 07/20/16 08:00 16:00 00:00 Intake Total 240 ml 340 ml Output Total 1250 ml 400 ml Balance -1010 ml -60 ml Assessment & Plan Problem List: (1) Delirium due to another medical condition Assessment & Plan: Patient is confused, with very limited attention span, visible fluctuation of consciousness, acute memory impairment which is consistent with delirium due to underlying medical condition. Patient is far from baseline, she is not endorsing visual hallucination at this moment, she does not seems to be responding to internal stimuli. No agitation, no aggressive behavior, no behavioral dysregulation observer or reported. Agree with EEG to rule out epileptogenic activity accounting for confusion, but also to confirm underlying metabolic encephalopathy. Please avoid deliriogenic drugs such as benzodiazepines/anticholinergic/ narcotics as much as possible. No indication for psychotropics at this moment, unless patient becomes agitated and aggressive, in that case would prefer Haldol 2 mg IM/IV to control behavior than benzodiazepine. ICD Code: F05 Assessment & Plan Estimated LOS: days Justification for Cont. Inpt. Patient does not meet criteria for psychiatric admission at this moment Rc Jones MD Jul 20, 2016 12:12
--- NOTE | 2016-07-20 12:23 | HHI.PR ---
Subjective Remarks Patient went for MRI. Appear calm today. She was noted with agitation last night. No nausea, vomiting. Says she is not having seizures. Denies any chest pain or sob. N n/v/d/c. No fever or chills. Noted leukocytosis and was noted with tachypnea Patient is noted confused at times. Plan to repeat EEG today. Objective Vitals Vital Signs Date Time Temp Pulse Resp B/P Pulse Ox O2 Delivery O2 Flow Rate FiO2 07/20/16 12:00 99.0 87 32 130/62 97 07/20/16 08:46 94 07/20/16 08:46 Nasal Cannula 3.00 07/20/16 08:15 Nasal Cannula 3.00 07/20/16 08:00 99.7 104 36 167/75 96 07/20/16 04:32 99.3 94 36 175/83 99 07/20/16 04:32 Nasal Cannula 3.00 07/20/16 04:25 99 3.00 07/20/16 04:21 110 07/20/16 04:15 Room Air 07/20/16 04:15 98.3 107 40 158/77 94 07/20/16 03:16 99.1 101 24 159/83 95 07/20/16 03:16 Room Air 07/19/16 23:16 Room Air 07/19/16 23:16 98.1 95 24 165/81 96 07/19/16 20:02 104 07/19/16 20:00 Room Air 07/19/16 20:00 97.9 99 18 145/68 95 07/19/16 16:00 98.7 90 22 151/89 96 07/19/16 14:56 80 I/O 07/19/16 07/19/16 07/19/16 07/20/16 07/20/16 07/20/16 07:00 15:00 23:00 07:00 15:00 23:00 Intake Total 240 ml 340 ml 120 ml Output Total 1250 ml 400 ml 1100 ml Balance -1010 ml -60 ml -980 ml Intake Oral 240 ml 240 ml 120 ml IV Total 100 ml Output Urine Total 1250 ml 400 ml 1100 ml # Voids 1 # Bowel Movements 1 1 Result Diagram: 07/20/16 0932 07/20/16 0932 Imaging Last Impressions Chest X-Ray 07/20/16 0000 Signed Impressions: Service Date/Time: Wednesday, July 20, 2016 11:29 - CONCLUSION: No evidence of acute cardiopulmonary disease. Alfredo Sneed MD Brain MRI 07/20/16 0000 Signed Impressions: Service Date/Time: Wednesday, July 20, 2016 09:15 - CONCLUSION: No acute intracranial abnormality. Moderately severe chronic white matter changes, nonspecific but most likely small vessel ischemia. Alfredo Sneed MD Head CT 07/19/16 Signed Impressions: Service Date/Time: Tuesday, July 19, 2016 09:58 - CONCLUSION: No acute intracranial findings. João Otoole MD Foot X-Ray 07/16/16 0000 Signed Impressions: Service Date/Time: Saturday, July 16, 2016 17:34 - CONCLUSION: 1. Nonspecific soft tissue swelling. No acute bone destruction demonstrated. 2. Mild talonavicular and navicular/cuneiform degenerative changes. 3. Second through fifth hammertoe. 4. Moderate-sized heel spur. Alfredo Sneed MD Objective Remarks GENERAL: Patient is a 61 yo female, BMI of 38, appearing anxious. Well-nourished , well-developed patient. SKIN: Warm and dry. BLE necrotic wounds, cassy wrap dsg in place. HEAD: Normocephalic. EYES: No scleral icterus. No injection or drainage. NECK: Supple, trachea midline. No JVD or lymphadenopathy. CARDIOVASCULAR: Regular rate and rhythm without murmurs, gallops, or rubs. RESPIRATORY: Breath sounds equal bilaterally. No accessory muscle use. On 2L nc. GASTROINTESTINAL: Abdomen soft, non-tender, nondistended. MUSCULOSKELETAL: No cyanosis, or edema. BACK: Nontender without obvious deformity. No CVA tenderness. EXTREMITIES: Multiple venous status ulcers nonhealing up to her knees NEURO: Awake and alert. Disoriented to place, time, and person. Normal speech. Able to carry out sentence conversation but forgets and goes off topic, need redirection. Procedures None Procedures None A/P Problem List: (1) Cellulitis of left lower extremity ICD Code: L03.116 Status: Acute (2) Delirium due to another medical condition ICD Code: F05 Status: Acute Assessment and Plan Pt. is 61-year-old female, with multiple admissions, with history of cellulitis of legs, severe PVD, diabetes and cardiomyopathy EF of 30% was at the rehabilitation facility when she became more altered today lethargic and hypoxic. Rapid response team was called and transferred patient to ICU. In the ICU patient remains confused and lethargic responsive to pain with a stable blood pressure and saturation of 100% on 40% face mask. Today, patient has improved, awake and alert. On nasal cannula, denies SOB/ Dyspnea. requesting to go back to rehabilitation. Denies chest pain, headache, palpitations, dizziness, n/v/d. Respiratory Failure - possibly exacerbated with metabolic encephalopathy, placed on Face mask, improved now on 2L nc - Nebs scheduled, PRN - May need CPAP at night - Pulmonology Consult, need sleep study as OP Altered mental status Poss Metabolic toxic encephalopathy. 2nd episode Possible seizure. EEG with possible seizure - Hold all medications that could contribute. Hold anxiolytics and narcotic Head CT normal ABG reviewed Continue keppra IV 500 . Consult neurology, appreciate recommendations, seen by Dr Rodriguez following. MRI 07/20 reviewed no acute process. Psychosis. Consult psychiatry. Peripheral vascular disease - Supportive care. Wound Care. - Pain control - F/U with vascular surgeon Diabetes - Hold Levemir due to hypoglycemia - Insulin sliding scale for now, until eating better Cardiomyopathy - Coreg - Isosorbide - Monitor BP Trend Hypothyroidism - TSH 9.150 - Synthroid 150mcg daily, check freeT4, may also be related to recent acute illness. Recheck in 4 weeks. Bilteral LE Cellulitis Left LE with gangrenous 2nd and 3rd feet. Continue dressing changes per Dr Valdes podiatry recommendation. Reconsult vascular surgeon Dr Taylor ( known to patient) on 07/20. - Levaquin to continue. - ID consult. WBC elevated 16.5 Leucocytosis noted 07/20 . Also with tachypnea and bandemia. Repeat ABG reviewed. Will start sepsis protocol. Check Urine cultures, check blood cultures x2, check CXR, lactic acid. Patient currently on levaquin. Will notify Dr Pedraza Id specialist. Hyponatremia - IVF NS 84ml/hr previously on sodium tabs - Monitor BMP. DC IV fluids with adequate fluid intake. DVT GI prophylaxis - Heparin and Pepcid Full code Discussed with patient, nurses, family at bedside. Discussed with Dr Valdes from podiatry Discharge Planning DC pending improvement and clearance form consultants. Mikala Johnson MD Jul 20, 2016 12:23
--- NOTE | 2016-07-20 13:07 | RADRPT ---
EXAM DATE/TIME: 07/20/2016 12:38 [facility] COMPARISON: No previous studies available for comparison. INDICATIONS : Short of Breath, Sepsis Alert. MEDICAL HISTORY : Hypertension. Diabetes mellitus type 2. SURGICAL HISTORY : Cholecystectomy. Hysterectomy. ENCOUNTER: Initial ACUITY: 1 day PAIN SCORE: Non-responsive. LOCATION: Bilateral chest FINDINGS: Mild infiltrate developing left mid and lower lung. There could be a small posteriorly layering left pleural effusion as well. Right lung remains reasonably clear. There is no pneumothorax. Heart size is stable, upper limits of normal. CONCLUSION: Mild left base consolidation developing. Alfredo Sneed MD on July 20, 2016 at 13:05 Board Certified Radiologist. This report was verified electronically.
--- NOTE | 2016-07-20 16:41 | MG ---
cc: CAMMY SHERIFF M.D. 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 Johnson. ROOM 1431 With photic stimulation. Repeat study. Awake, drowsy, following some commands per location and measurement technician. The last EEG with some questionable PLEDs on the right hemisphere. CT and MRI were negative. Negative. Lethargic, confused, hypoxic. Change in mental status. Patient came in from [facility], 61 years old, with cellulitis of both legs. On Keppra now. DESCRIPTION OF RECORD There is diffuse slowing between 2.0-2.5 Hz consistent with delta frequency. EKG is artifactual. Looks like there may be spike waves bilateral but not continuous. Starts at epoch 23 and then there is during epoch 23, and possibly another one at epoch 28. It seems like she might have a couple of extra PLEDs but this is bilateral. IMPRESSION Abnormal EEG due to diffuse slowing consistent with moderate encephalopathic process, but she also has some paroxysmal spike waves bilaterally with an occasional PLED noted as well. RECOMMENDATION Recommend adjusting antiepileptic medication and repeat EEG. Clinical correlation. MD TOBY Boss/KONG /4:18 PM /4:34 PM
--- NOTE | 2016-07-20 17:24 | HHI.PR ---
Subjective Remarks more confused took clothes off. nonverbal Objective Vital Signs Date Time Temp Pulse Resp B/P Pulse Ox O2 Delivery O2 Flow Rate FiO2 07/20/16 16:00 99.9 86 32 163/68 99 07/20/16 12:00 99.0 87 32 130/62 97 07/20/16 08:46 94 07/20/16 08:46 Nasal Cannula 3.00 07/20/16 08:15 Nasal Cannula 3.00 07/20/16 08:00 99.7 104 36 167/75 96 07/20/16 04:32 99.3 94 36 175/83 99 07/20/16 04:32 Nasal Cannula 3.00 07/20/16 04:25 99 3.00 07/20/16 04:21 110 07/20/16 04:15 Room Air 07/20/16 04:15 98.3 107 40 158/77 94 07/20/16 03:16 99.1 101 24 159/83 95 07/20/16 03:16 Room Air 07/19/16 23:16 Room Air 07/19/16 23:16 98.1 95 24 165/81 96 07/19/16 20:02 104 07/19/16 20:00 Room Air 07/19/16 20:00 97.9 99 18 145/68 95 I/O 07/19/16 07/19/16 07/19/16 07/20/16 07/20/16 07/20/16 07:00 15:00 23:00 07:00 15:00 23:00 Intake Total 240 ml 340 ml 120 ml 220 ml Output Total 1250 ml 400 ml 1100 ml 600 ml Balance -1010 ml -60 ml -980 ml -380 ml Intake Oral 240 ml 240 ml 120 ml 220 ml IV Total 100 ml Output Urine Total 1250 ml 400 ml 1100 ml 600 ml # Voids 1 # Bowel Movements 1 1 0 Result Diagram: 07/20/16 0932 07/20/16 0932 Imaging mri brain neg acute process eeg today some sharps and occasional pleds with delta slowing. Objective Remarks awakens with sternal rub looks at me then falls asleep again open mouth breathing. not following any commands does not react to daughter calling her. moves all 4 extrem. gangrene right foot hallux ,2nd and 3rd toe visible. Assessment and Plan Assessment and Plan abnl eeg concerning for sz encephalopathic -chenge to iv depacon 500 mg q8 h vpa level in am eeg in am. Althea Rodriguez MD Jul 20, 2016 17:24
[2016-07-20] MEDS: VALPROATE INJ 500 MG in SODIUM CHLORIDE 0.9% INJ 100 ML IV SCH (18:13)
[2016-07-20] MEDS: HYDROmorphone HCL PF 1 MG/ML VIAL IV PUSH PRN (18:31)
--- NOTE | 2016-07-20 19:43 | PD.CAR.PN ---
CVT Progress Note Subjective/Hospital Course: Patient seen in situation discussed In the process of obtaining history I found out that the lady is established patient of . Please consult Dr. Taylor for any vascular issues Objective: Vital Signs Date Time Temp Pulse Resp B/P Pulse Ox O2 Delivery O2 Flow Rate FiO2 07/20/16 16:00 99.9 86 32 163/68 99 07/20/16 12:00 99.0 87 32 130/62 97 07/20/16 08:46 94 07/20/16 08:46 Nasal Cannula 3.00 07/20/16 08:15 Nasal Cannula 3.00 07/20/16 08:00 99.7 104 36 167/75 96 07/20/16 04:32 99.3 94 36 175/83 99 07/20/16 04:32 Nasal Cannula 3.00 07/20/16 04:25 99 3.00 07/20/16 04:21 110 07/20/16 04:15 Room Air 07/20/16 04:15 98.3 107 40 158/77 94 07/20/16 03:16 99.1 101 24 159/83 95 07/20/16 03:16 Room Air 07/19/16 23:16 Room Air 07/19/16 23:16 98.1 95 24 165/81 96 07/19/16 20:02 104 07/19/16 20:00 Room Air 07/19/16 20:00 97.9 99 18 145/68 95 Labs: Laboratory Tests Test 07/20/16 07/20/16 07/20/16 09:32 11:45 13:08 White Blood Count 16.5 TH/MM3 (4.0-11.0) Red Blood Count 3.59 MIL/MM3 (4.00-5.30) Hemoglobin 8.4 GM/DL (11.6-15.3) Hematocrit 27.0 % (35.0-46.0) Mean Corpuscular Volume 75.2 FL (80.0-100.0) Mean Corpuscular Hemoglobin 23.4 PG (27.0-34.0) Mean Corpuscular Hemoglobin 31.1 % Concent (32.0-36.0) Red Cell Distribution Width 17.8 % (11.6-17.2) Platelet Count 465 TH/MM3 (150-450) Mean Platelet Volume 6.2 FL (7.0-11.0) Neutrophils (%) (Auto) 79.9 % (16.0-70.0) Lymphocytes (%) (Auto) 12.2 % (9.0-44.0) Monocytes (%) (Auto) 7.0 % (0.0-8.0) Eosinophils (%) (Auto) 0.5 % (0.0-4.0) Basophils (%) (Auto) 0.4 % (0.0-2.0) Neutrophils # (Auto) 13.2 TH/MM3 (1.8-7.7) Lymphocytes # (Auto) 2.0 TH/MM3 (1.0-4.8) Monocytes # (Auto) 1.2 TH/MM3 (0-0.9) Eosinophils # (Auto) 0.1 TH/MM3 (0-0.4) Basophils # (Auto) 0.1 TH/MM3 (0-0.2) CBC Comment AUTO DIFF Differential Total Cells 100 Counted Neutrophils % (Manual) 71 % (16-70) Band Neutrophils % 12 % (0-6) Lymphocytes % 9 % (9-44) Monocytes % 8 % (0-8) Neutrophils # (Manual) 13.7 TH/MM3 (1.8-7.7) Differential Comment FINAL DIFF MANUAL Platelet Estimate HIGH (NORMAL) Platelet Morphology Comment NORMAL (NORMAL) Sodium Level 137 MEQ/L (136-145) Potassium Level 3.6 MEQ/L (3.5-5.1) Chloride Level 99 MEQ/L (98-107) Carbon Dioxide Level 26.9 MEQ/L (21.0-32.0) Anion Gap 11 MEQ/L (5-15) Blood Urea Nitrogen 12 MG/DL (7-18) Creatinine 0.78 MG/DL (0.50-1.00) Estimat Glomerular Filtration 75 ML/MIN (>89) Rate Random Glucose 289 MG/DL (74-106) Calcium Level 8.1 MG/DL (8.5-10.1) Magnesium Level 1.8 MG/DL (1.5-2.5) Blood Gas Puncture Site RT RADIAL Blood Gas Patient Temperature 98.6 Blood Gas HCO3 25 mmol/L (22-26) Blood Gas Base Excess 1.9 mmol/L (-2-2) Blood Gas Oxygen Saturation 92 % (90-100) Arterial Blood pH 7.47 (7.380-7.420) Arterial Blood Partial 35 mmHg (38-42) Pressure CO2 Arterial Blood Partial 67 mmHg Pressure O2 (61-120) Arterial Blood Oxygen Content 11.5 Vol % (12.0-20.0) Arterial Blood 1.7 % (0-4) Carboxyhemoglobin Arterial Blood Methemoglobin 0.6 % (0-2) Blood Gas Hemoglobin 8.9 G/DL (12.0-16.0) Blood Gas Inspired Oxygen 21 % Lactic Acid Level 0.9 mmol/L (0.4-2.0) Result Diagram: 07/20/16 0932 07/20/16 0932 Clinton Pastrana MD Jul 20, 2016 19:43
[2016-07-21] VITALS: BP 130/63; PULSE 117; RESP 28; TEMP 97.3; O2SAT 93
[2016-07-21] MEDS: VALPROATE INJ 500 MG in SODIUM CHLORIDE 0.9% INJ 100 ML IV SCH ×3 (01:34→16:52)
[2016-07-21 04:00] VITALS: BP 138/84; PULSE 114; RESP 22; TEMP 99.7; O2SAT 94
[2016-07-21] MEDS: CHLORHEXIDINE GLUCONATE 2 % 1 PACK (2 CLOTHS) TOP SCH (04:00)
[2016-07-21] MEDS: ISOSORBIDE DINITRATE 5 MG TAB PO SCH ×3 (05:12→21:05)
[2016-07-21] MEDS: LEVOTHYROXINE SODIUM 150 MCG TAB PO SCH (05:12)
[2016-07-21] MEDS: HEPARIN SODIUM - SQ 10,000 UNITS/ML VIAL SQ SCH ×3 (05:13→20:56)
[2016-07-21] MEDS: ACETAMINOPHEN/HYDROcodone 325 MG/5 MG TAB PO PRN (05:13)
[2016-07-21 07:39] LABS: AUTOMATED NEUTROPHIL # 15.2 TH/MM3 (1.8-7.7); BASOPHIL % 0.2 % (0.0-2.0); EOSINOPHIL # 0.2 TH/MM3 (0-0.4); EOSINOPHIL % 1.2 % (0.0-4.0); HEMATOCRIT 27.5 % (35.0-46.0); LYMPH % 12.1 % (9.0-44.0); LYMPHOCYTE # 2.3 TH/MM3 (1.0-4.8); MEAN CELL VOLUME 75.2 FL (80.0-100.0); MEAN CORPUSCULAR HEMOGLOBIN 23.3 PG (27.0-34.0); MONO % 5.7 % (0.0-8.0); NEUT % 80.8 % (16.0-70.0); PLATELET COUNT 444 TH/MM3 (150-450); RED BLOOD COUNT 3.66 MIL/MM3 (4.00-5.30); RED CELL DISTRIBUTION WIDTH 17.7 % (11.6-17.2); WHITE BLOOD COUNT 18.9 TH/MM3 (4.0-11.0)
[2016-07-21 07:46] LABS: HEMO FLAGS AUTO DIFF
[2016-07-21 07:54] LABS: BICARBONATE 26.8 MEQ/L (21.0-32.0); MAGNESIUM 1.9 MG/DL (1.5-2.5); POTASSIUM 3.7 MEQ/L (3.5-5.1)
[2016-07-21 08:00] VITALS: PULSE 86
[2016-07-21 08:17] VITALS: BP 136/63; PULSE 82; RESP 20; TEMP 98.5; O2SAT 96
[2016-07-21 09:04] LABS: PLATELET ESTIMATE SMEAR HIGH (NORMAL); PLATELET MORPHOLOGY NORMAL (NORMAL); SCAN/DIFF AUTO DIFF CONFIRMED
[2016-07-21] MEDS: DOCUSATE SODIUM 100 MG CAP PO SCH ×2 (09:46→20:56)
[2016-07-21] MEDS: ASPIRIN EC 325 MG TABEC PO SCH (09:46)
[2016-07-21] MEDS: LIOTHYRONINE SODIUM 5 MCG TAB PO SCH (09:46)
[2016-07-21] MEDS: CARVEDILOL 12.5 MG TAB PO SCH ×2 (09:46→20:56)
[2016-07-21] MEDS: SODIUM CHLORIDE 0.9% FLUSH 5 ML FLUSH IV FLUSH SCH ×2 (09:47→20:56)
[2016-07-21] MEDS: FAMOTIDINE 20 MG/2 ML VIAL IV PUSH SCH ×2 (09:47→20:56)
[2016-07-21] MEDS: LACTOBACILLUS ACIDOPHILUS TAB PO SCH ×4 (09:47→20:56)
--- NOTE | 2016-07-21 12:37 | RSPPFT ---
DATE OF PROCEDURE: 07/18/16 COMMENTS: Spirometry shows FVC of 1.6 at 57% of predicted, FEV1 of 1.3 at 57%, FEV1/FVC ratio is normal Flow is decreased at FEF 25-75. There is a mild response after bronchodilator treatment. Flow volume loop indicates a normal pattern. IMPRESSION: 1. Mild small airways obstructive lung disease. 2. Good response after bronchodilator treatment. 3. Underlying restrictive disease is suspected.
--- NOTE | 2016-07-21 13:26 | HHI.IDPN ---
Subjective Subjective Remarks Notes reviewed Asked to reevaluate patient for worsening leukocytosis D/W Dr Johnson Temps 99+ Currently lethargic, moans when stimulated Per Dr Johnson, she was very awake this morning UA (+), UC with GNR Has mcconnell in place Antibiotics Levaquin Past Medical History PVD - has CTA last year and has lesions that could be corrected Hypertension Diabetes Cardiomyopathysustained after contrast-induced flash pulmonary edema- latest EF was 30% in March 2016. Obesity Hypothyroidism History of dermoid cyststatus post left oophorectomy 25 years ago Past Surgical History Left oophorectomy for dermoid cyst removal Cholecystectomy Hernia repair Allergies: Coded Allergies: Contrast Media (Verified Allergy, Severe, Flash pulmonary edema , 06/16/16) PEANUTS (Verified Allergy, Severe, rash, 07/03/16) swelling of the tongue Santyl (Verified Allergy, Intermediate, Irritation, 07/09/16) Objective . Vital Signs Date Time Temp Pulse Resp B/P Pulse Ox O2 Delivery O2 Flow Rate FiO2 07/21/16 11:42 Room Air 07/21/16 08:17 98.5 82 20 136/63 96 07/21/16 04:00 99.7 114 22 138/84 94 07/21/16 00:00 97.3 117 28 130/63 93 07/20/16 20:00 Room Air 07/20/16 20:00 127 07/20/16 20:00 98.7 126 30 158/80 93 07/20/16 16:00 99.9 86 32 163/68 99 07/20/16 07/20/16 07/21/16 15:00 23:00 07:00 Intake Total 220 ml 240 ml 0 ml Output Total 600 ml 500 ml 300 ml Balance -380 ml -260 ml -300 ml Intake Oral 220 ml 240 ml 0 ml Output Urine Total 600 ml 500 ml 300 ml # Bowel Movements 0 0 0 . Laboratory Tests Test 07/20/16 07/21/16 09:32 07:05 White Blood Count 16.5 TH/MM3 18.9 TH/MM3 Red Blood Count 3.59 MIL/MM3 3.66 MIL/MM3 Hemoglobin 8.4 GM/DL 8.5 GM/DL Hematocrit 27.0 % 27.5 % Mean Corpuscular Volume 75.2 FL 75.2 FL Mean Corpuscular Hemoglobin 23.4 PG 23.3 PG Mean Corpuscular Hemoglobin 31.1 % 31.0 % Concent Red Cell Distribution Width 17.8 % 17.7 % Platelet Count 465 TH/MM3 444 TH/MM3 Mean Platelet Volume 6.2 FL 6.3 FL Neutrophils (%) (Auto) 79.9 % 80.8 % Lymphocytes (%) (Auto) 12.2 % 12.1 % Monocytes (%) (Auto) 7.0 % 5.7 % Eosinophils (%) (Auto) 0.5 % 1.2 % Basophils (%) (Auto) 0.4 % 0.2 % Neutrophils # (Auto) 13.2 TH/MM3 15.2 TH/MM3 Lymphocytes # (Auto) 2.0 TH/MM3 2.3 TH/MM3 Monocytes # (Auto) 1.2 TH/MM3 1.1 TH/MM3 Eosinophils # (Auto) 0.1 TH/MM3 0.2 TH/MM3 Basophils # (Auto) 0.1 TH/MM3 0.0 TH/MM3 CBC Comment AUTO DIFF AUTO DIFF Differential Total Cells 100 Counted Neutrophils % (Manual) 71 % Band Neutrophils % 12 % Lymphocytes % 9 % Monocytes % 8 % Neutrophils # (Manual) 13.7 TH/MM3 Differential Comment FINAL DIFF AUTO DIFF MANUAL CONFIRMED Platelet Estimate HIGH HIGH Platelet Morphology Comment NORMAL NORMAL Laboratory Tests Test 07/20/16 07/20/16 07/21/16 09:32 13:08 07:05 Sodium Level 137 MEQ/L 139 MEQ/L Potassium Level 3.6 MEQ/L 3.7 MEQ/L Chloride Level 99 MEQ/L 103 MEQ/L Carbon Dioxide Level 26.9 MEQ/L 26.8 MEQ/L Anion Gap 11 MEQ/L 9 MEQ/L Blood Urea Nitrogen 12 MG/DL 10 MG/DL Creatinine 0.78 MG/DL 0.74 MG/DL Estimat Glomerular Filtration 75 ML/MIN 80 ML/MIN Rate Random Glucose 289 MG/DL 254 MG/DL Calcium Level 8.1 MG/DL 8.3 MG/DL Magnesium Level 1.8 MG/DL 1.9 MG/DL Lactic Acid Level 0.9 mmol/L Procalcitonin 0.20 mg/mL Microbiology Date/Time Procedure Status Source Growth 07/20/16 12:26 Urine Culture - Preliminary Resulted Urine Clean Catch Gram Negative Klever 07/20/16 13:00 Aerobic Blood Culture - Preliminary Resulted Blood Peripheral NO GROWTH IN 1 DAY 07/20/16 13:00 Anaerobic Blood Culture - Preliminary Resulted Blood Peripheral NO GROWTH IN 1 DAY 07/20/16 13:08 Aerobic Blood Culture - Preliminary Resulted Blood Peripheral NO GROWTH IN 1 DAY 07/20/16 13:08 Anaerobic Blood Culture - Preliminary Resulted Blood Peripheral NO GROWTH IN 1 DAY Imaging Chest X-Ray 07/20/16 0000 Signed Impressions: Service Date/Time: Wednesday, July 20, 2016 12:38 - CONCLUSION: Mild left base consolidation developing. Alfredo Sneed MD Brain MRI 07/20/16 0000 Signed Impressions: Service Date/Time: Wednesday, July 20, 2016 09:15 - CONCLUSION: No acute intracranial abnormality. Moderately severe chronic white matter changes, nonspecific but most likely small vessel ischemia. Alfredo Sneed MD Head CT 07/19/16 0000 Signed Impressions: Service Date/Time: Tuesday, July 19, 2016 09:58 - CONCLUSION: No acute intracranial findings. João Otoole MD Foot X-Ray 07/16/16 0000 Signed Impressions: Service Date/Time: Saturday, July 16, 2016 17:34 - CONCLUSION: 1. Nonspecific soft tissue swelling. No acute bone destruction demonstrated. 2. Mild talonavicular and navicular/cuneiform degenerative changes. 3. Second through fifth hammertoe. 4. Moderate-sized heel spur. Alfredo Sneed MD Physical Exam GENERAL: Lethargic, not in distress SKIN: No rashes. Warm and dry HEENT: [place] conjunctivae. No icterus, moist mucosa NECK: Trachea midline. Supple, nontender, no meningeal signs. CARDIOVASCULAR: HS audible. No murmur appreciated. Decreased BS at bases RESPIRATORY: Clear to auscultation. Breath sounds equal bilaterally. GASTROINTESTINAL: Abdomen soft, non-tender, nondistended. Obese. MUSCULOSKELETAL: Bilateral extremities with ulcers, has slough,, edema better, has dry gangrene L 2nd and 3rd toes NEUROLOGICAL: lethargic, moves all extremities. Psych: could not be assessed. IV line sites with no e.o infection. Assessment & Plan Remarks Leukocytosis, prob due to UTI - also with L base consolidation, prob more of atelectasis due to poorrespiratory effort Possible mild cellulitis BLE, has chronic venous stasis ulcers with underlying PVD Dry gangrene 2 toes L foot PVD, S/P revascularization Encephalopathy, prob pain meds a big factor Cardiomyopathy DM with neuropathy. Hypothyroidism Chronic narcotic use. Anxiety and Depression. PLAN Add Cefepime Continue Levaquin Wound care Follow C/S Vascular surgery to reevaluate Monitor temps Monitor progress D/W Davida Chappell MD Jul 21, 2016 13:26
--- NOTE | 2016-07-21 13:55 | MG ---
cc: REYES SHEPPARD M.D. Lab No: [id number] Date: 07/21/2016 Age: Sex: F TECHNIQUE 17-channel EEG. DESCRIPTION The background rhythm reveals slowing in the delta frequency, roughly 3-4 Hz. Later in the tracing there is a theta rhythm present. No lateralizing features are identified. No epileptiform features are identified. INTERPRETATION Abnormal study on the basis of generalized slowing consistent with a moderate encephalopathy. MD SANCHO Batista/AYLIN /1:50 PM /1:54 PM
--- NOTE | 2016-07-21 14:21 | HHI.PR ---
Subjective Remarks Patient in nad. She is alert and oriented, appears in nad. No seizures. No chest pain, n/v/d/c. No fever or chills. Objective Vitals Vital Signs Date Time Temp Pulse Resp B/P Pulse Ox O2 Delivery O2 Flow Rate FiO2 07/21/16 11:42 Room Air 07/21/16 08:17 98.5 82 20 136/63 96 07/21/16 04:00 99.7 114 22 138/84 94 07/21/16 00:00 97.3 117 28 130/63 93 07/20/16 20:00 Room Air 07/20/16 20:00 127 07/20/16 20:00 98.7 126 30 158/80 93 07/20/16 16:00 99.9 86 32 163/68 99 I/O 07/20/16 07/20/16 07/20/16 07/21/16 07/21/16 07/21/16 07:00 15:00 23:00 07:00 15:00 23:00 Intake Total 120 ml 220 ml 240 ml 0 ml Output Total 1100 ml 600 ml 500 ml 300 ml Balance -980 ml -380 ml -260 ml -300 ml Intake Oral 120 ml 220 ml 240 ml 0 ml Output Urine Total 1100 ml 600 ml 500 ml 300 ml # Bowel Movements 1 0 0 0 Result Diagram: 07/21/1670407/21/16704 Objective Remarks GENERAL: Patient is a 61 yo female, BMI of 38, appearing anxious. Well-nourished , well-developed patient. SKIN: Warm and dry. BLE necrotic wounds, cassy wrap dsg in place. HEAD: Normocephalic. EYES: No scleral icterus. No injection or drainage. NECK: Supple, trachea midline. No JVD or lymphadenopathy. CARDIOVASCULAR: Regular rate and rhythm without murmurs, gallops, or rubs. RESPIRATORY: Breath sounds equal bilaterally. No accessory muscle use. On 2L nc. GASTROINTESTINAL: Abdomen soft, non-tender, nondistended. MUSCULOSKELETAL: No cyanosis, or edema. BACK: Nontender without obvious deformity. No CVA tenderness. EXTREMITIES: Multiple venous status ulcers nonhealing up to her knees NEURO: Awake and alert. Disoriented to place, time, and person. Normal speech. Able to carry out sentence conversation but forgets and goes off topic, need redirection. Procedures None Procedures None A/P Problem List: (1) Cellulitis of left lower extremity ICD Code: L03.116 Status: Acute (2) Delirium due to another medical condition ICD Code: F05 Status: Acute Assessment and Plan Pt. is 61-year-old female, with multiple admissions, with history of cellulitis of legs, severe PVD, diabetes and cardiomyopathy EF of 30% was at the rehabilitation facility when she became more altered today lethargic and hypoxic. Rapid response team was called and transferred patient to ICU. In the ICU patient remains confused and lethargic responsive to pain with a stable blood pressure and saturation of 100% on 40% face mask. Today, patient has improved, awake and alert. On nasal cannula, denies SOB/ Dyspnea. requesting to go back to rehabilitation. Denies chest pain, headache, palpitations, dizziness, n/v/d. Respiratory Failure - possibly exacerbated with metabolic encephalopathy, placed on Face mask, improved now on 2L nc - Nebs scheduled, PRN - May need CPAP at night - Pulmonology Consult, need sleep study as OP Altered mental status Poss Metabolic toxic encephalopathy. 2nd episode Possible seizure. EEG with possible seizure - Hold all medications that could contribute. Hold anxiolytics and narcotic Head CT normal ABG reviewed Continue keppra IV 500 . Consult neurology, appreciate recommendations, seen by Dr Rodriguez following. MRI 07/20 reviewed no acute process. Psychosis. Consult psychiatry. Peripheral vascular disease - Supportive care. Wound Care. - Pain control - F/U with vascular surgeon Diabetes - Hold Levemir due to hypoglycemia - Insulin sliding scale for now, until eating better Cardiomyopathy - Coreg - Isosorbide - Monitor BP Trend Hypothyroidism - TSH 9.150 - Synthroid 150mcg daily, check freeT4, may also be related to recent acute illness. Recheck in 4 weeks. Bilteral LE Cellulitis Left LE with gangrenous 2nd and 3rd feet. Continue dressing changes per Dr Valdes podiatry recommendation. Reconsult vascular surgeon Dr Taylor ( known to patient) on 07/20. Seen by Dr Pastrana 07/[address] Estrada. Patietn / family wants to wait for Dr Taylor for further assessment and recommendations. - Levaquin to continue. - ID consult. WBC elevated 16.5 Leucocytosis noted 07/20 . Also with tachypnea and bandemia. Repeat ABG reviewed. Will start sepsis protocol. Check Urine cultures, check blood cultures x2, check CXR, lactic acid. Patient currently on levaquin. Dr Quispe following. Hyponatremia - IVF NS 84ml/hr previously on sodium tabs - Monitor BMP. DC IV fluids with adequate fluid intake. DVT GI prophylaxis - Heparin and Pepcid Full code Discussed with patient, nurses Discussed with Dr Quispe from ID Discharge Planning DC pending improvement and clearance form consultants. Mikala Johnson MD Jul 21, 2016 14:21
[2016-07-21] MEDS: CEFEPIME INJ 2,000 MG in SODIUM CHLORIDE 0.9% INJ 100 ML IV SCH ×2 (14:47→15:56)
[2016-07-21 16:00] VITALS: BP 160/73; PULSE 81; RESP 24; TEMP 98.9; O2SAT 93
[2016-07-21] MEDS: SODIUM CHLOR 0.9% 1000 ML INJ 1,000 ML IV SCH (17:51)
--- NOTE | 2016-07-21 18:48 | HHI.PR ---
Subjective Remarks 61 YO WF withDM,CMP,DVT,Leg ulcer Weaned to RA No CP,fever or chills more lethargic MRI, EEG done Neuro following Objective Vital Signs Vital Signs Date Time Temp Pulse Resp B/P Pulse Ox O2 Delivery O2 Flow Rate FiO2 07/21/16 16:00 98.9 81 24 160/73 93 07/21/16 11:42 Room Air 07/21/16 08:17 98.5 82 20 136/63 96 07/21/16 08:00 86 07/21/16 04:00 99.7 114 22 138/84 94 07/21/16 00:00 97.3 117 28 130/63 93 07/20/16 20:00 Room Air 07/20/16 20:00 127 07/20/16 20:00 98.7 126 30 158/80 93 I/O 07/20/16 07/20/16 07/20/16 07/21/16 07/21/16 07/21/16 07:00 15:00 23:00 07:00 15:00 23:00 Intake Total 120 ml 220 ml 240 ml 0 ml 0 ml Output Total 1100 ml 600 ml 500 ml 300 ml 400 ml Balance -980 ml -380 ml -260 ml -300 ml -400 ml Intake Oral 120 ml 220 ml 240 ml 0 ml 0 ml Output Urine Total 1100 ml 600 ml 500 ml 300 ml 400 ml # Bowel Movements 1 0 0 0 0 Result Diagram: 07/21/1670407/21/16704 Objective Remarks GENERAL: Obese WF, NAD SKIN: Warm and dry. HEAD: Normocephalic. EYES: No scleral icterus. No injection or drainage. NECK: Supple, trachea midline. No JVD or lymphadenopathy. CARDIOVASCULAR: Regular rate and rhythm without murmurs, gallops, or rubs. RESPIRATORY: Breath sounds equal bilaterally. No accessory muscle use. GASTROINTESTINAL: Abdomen soft, non-tender, nondistended. MUSCULOSKELETAL: No cyanosis, or edema. BACK: Nontender without obvious deformity. No CVA tenderness. A/P Assessment and Plan LIVE likly DM Leg ulcer DVT CMP Encephalopathy PLAN: Will need sleep study as out pt Monitor BS Cont Abx DW at BS Neuro following Lito Harris MD Jul 21, 2016 18:48
[2016-07-21 20:00] VITALS: BP 132/63; PULSE 82; PULSE 84; RESP 22; TEMP 100; O2SAT 94
[2016-07-21] MEDS: LEVOFLOXACIN 250 MG TAB PO SCH (21:05)
[2016-07-22] VITALS: BP 155/66; PULSE 78; RESP 20; TEMP 99.1; O2SAT 93
[2016-07-22] MEDS: VALPROATE INJ 500 MG in SODIUM CHLORIDE 0.9% INJ 100 ML IV SCH ×3 (01:00→18:52)
[2016-07-22] MEDS: CEFEPIME INJ 2,000 MG in SODIUM CHLORIDE 0.9% INJ 100 ML IV SCH ×2 (02:58→13:51)
[2016-07-22] MEDS: CHLORHEXIDINE GLUCONATE 2 % 1 PACK (2 CLOTHS) TOP SCH (02:58)
[2016-07-22] MEDS: ISOSORBIDE DINITRATE 5 MG TAB PO SCH ×3 (04:55→22:15)
[2016-07-22] MEDS: LEVOTHYROXINE SODIUM 150 MCG TAB PO SCH (04:55)
[2016-07-22] MEDS: HEPARIN SODIUM - SQ 10,000 UNITS/ML VIAL SQ SCH ×3 (04:55→22:19)
[2016-07-22] MEDS: SODIUM CHLOR 0.9% 1000 ML INJ 1,000 ML IV SCH ×2 (04:56→18:32)
[2016-07-22 08:00] VITALS: BP 174/80; PULSE 78; RESP 22; TEMP 99.1; O2SAT 96
[2016-07-22] MEDS: CARVEDILOL 12.5 MG TAB PO SCH ×2 (08:27→22:13)
[2016-07-22] MEDS: FAMOTIDINE 20 MG/2 ML VIAL IV PUSH SCH ×2 (08:27→22:21)
[2016-07-22] MEDS: LIOTHYRONINE SODIUM 5 MCG TAB PO SCH (08:27)
[2016-07-22] MEDS: ASPIRIN EC 325 MG TABEC PO SCH (08:27)
[2016-07-22] MEDS: DOCUSATE SODIUM 100 MG CAP PO SCH ×2 (08:27→22:12)
[2016-07-22] MEDS: SODIUM CHLORIDE 0.9% FLUSH 5 ML FLUSH IV FLUSH SCH ×2 (08:27→21:00)
[2016-07-22 09:32] LABS: AUTOMATED NEUTROPHIL # 11.6 TH/MM3 (1.8-7.7); BASOPHIL # 0.1 TH/MM3 (0-0.2); BASOPHIL % 0.6 % (0.0-2.0); EOSINOPHIL # 0.2 TH/MM3 (0-0.4); EOSINOPHIL % 1.1 % (0.0-4.0); HEMATOCRIT 27.4 % (35.0-46.0); LYMPH % 13.4 % (9.0-44.0); MEAN CELL VOLUME 76.3 FL (80.0-100.0); MEAN CORPUSCULAR HEMOGLOBIN 23.5 PG (27.0-34.0); MEAN CORPUSCULAR HGB CONC 30.8 % (32.0-36.0); NEUT % 78.9 % (16.0-70.0); PLATELET COUNT 393 TH/MM3 (150-450); RED CELL DISTRIBUTION WIDTH 18.1 % (11.6-17.2); WHITE BLOOD COUNT 14.7 TH/MM3 (4.0-11.0)
[2016-07-22 09:37] LABS: HEMO FLAGS AUTO DIFF
[2016-07-22 09:52] LABS: BICARBONATE 30.1 MEQ/L (21.0-32.0); POTASSIUM 3.3 MEQ/L (3.5-5.1)
[2016-07-22 10:13] LABS: SCAN/DIFF AUTO DIFF CONFIRMED
--- NOTE | 2016-07-22 10:23 | PD.VS.PN ---
Subjective Subjective/Hospital Course Pt was somnolent this morning, no distress, but only made eye contact. Objective Vitals/I&O Date Time Temp Pulse Resp B/P Pulse Ox O2 Delivery O2 Flow Rate FiO2 07/22/16 08:51 Room Air 07/22/16 08:00 99.1 78 22 174/80 96 07/22/16 02:09 Room Air 07/22/16 00:00 99.1 78 20 155/66 93 07/21/16 20:55 Room Air 07/21/16 20:00 100.0 82 22 132/63 94 07/21/16 20:00 84 07/21/16 16:00 98.9 81 24 160/73 93 07/21/16 11:42 Room Air Physical Exam B LE wrapped. Laboratory Laboratory Tests Test 07/22/16 08:30 White Blood Count 14.7 Red Blood Count 3.60 Hemoglobin 8.4 Hematocrit 27.4 Mean Corpuscular Volume 76.3 Mean Corpuscular Hemoglobin 23.5 Mean Corpuscular Hemoglobin 30.8 Concent Red Cell Distribution Width 18.1 Platelet Count 393 Mean Platelet Volume 6.6 Neutrophils (%) (Auto) 78.9 Lymphocytes (%) (Auto) 13.4 Monocytes (%) (Auto) 6.0 Eosinophils (%) (Auto) 1.1 Basophils (%) (Auto) 0.6 Neutrophils # (Auto) 11.6 Lymphocytes # (Auto) 2.0 Monocytes # (Auto) 0.9 Eosinophils # (Auto) 0.2 Basophils # (Auto) 0.1 CBC Comment AUTO DIFF Differential Comment AUTO DIFF CONFIRMED Sodium Level 142 Potassium Level 3.3 Chloride Level 105 Carbon Dioxide Level 30.1 Anion Gap 7 Blood Urea Nitrogen 12 Creatinine 0.80 Estimat Glomerular Filtration 73 Rate Random Glucose 255 Calcium Level 7.8 Magnesium Level 2.0 Date/Time Procedure Status Source Growth 07/20/16 13:08 Aerobic Blood Culture - Preliminary Resulted Blood Peripheral NO GROWTH IN 1 DAY 07/20/16 13:08 Anaerobic Blood Culture - Preliminary Resulted Blood Peripheral NO GROWTH IN 1 DAY 07/20/16 12:26 Urine Culture - Final Complete Urine Clean Catch Escherichia Coli Assessment and Plan Plan Pt with mild PAD and chronic wounds, well known to me. 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 Based on radiographic images post-intervention, she has adequate blood flow to heal wounds However, as stated before, she needs ABIs or at least Doppler waveforms to confirm patency. Will re-order For wound care, I recommend consulting structures technician and plastic surgery. Debrided in OR during angioplasty but clearly needs more definitive wound care plan separate from completed revascularization Shamar Taylor MD Jul 22, 2016 10:23
[2016-07-22 12:00] VITALS: BP 128/60; PULSE 73; RESP 20; TEMP 99; O2SAT 97
[2016-07-22] MEDS: LACTOBACILLUS ACIDOPHILUS TAB PO SCH ×2 (12:25→18:52)
[2016-07-22] MEDS: ACETAMINOPHEN/HYDROcodone 325 MG/5 MG TAB PO PRN ×2 (12:29→22:18)
--- NOTE | 2016-07-22 13:51 | RADRPT ---
EXAM DATE/TIME: 07/22/2016 00:00 [facility] COMPARISON: [facility] ANKLE BRACHIAL INDEX, July 09, 2016, 0:00. INDICATIONS : Peripheral vascular disease TECHNIQUE: Four-cuff ankle and brachial pressures were obtained. Pulse cuff waveform tracings of the ankles were recorded, and ankle-brachial indices were calculated. PRESSURES (mmHg): Brachial (arm): Right 149 Left IV SITE Ankle: Right CNO >100 Left 132 AMILCAR: Right CNO Left 0.89 TBI: PULSED CUFF WAVEFORMS: There is blunting of the waveform at the level of the right ankle. CONCLUSION: Nondiagnostic examination on the right. CT angiography of the abdominal aorta and lower extremities i s recommended for further evaluation if clinically indicated. Dru Arango MD on July 22, 2016 at 13:49 Board Certified Radiologist. This report was verified electronically.
--- NOTE | 2016-07-22 14:08 | HHI.PR ---
Subjective Remarks The patient was seen c programmer. She was sleepy bit arousable. She denies any complaints at this time. No feevr or chills. no n/v/d/c. Denies pain. Objective Vitals Vital Signs Date Time Temp Pulse Resp B/P Pulse Ox O2 Delivery O2 Flow Rate FiO2 07/22/16 12:00 99.0 73 20 128/60 97 07/22/16 08:51 Room Air 07/22/16 08:00 99.1 78 22 174/80 96 07/22/16 02:09 Room Air 07/22/16 00:00 99.1 78 20 155/66 93 07/21/16 20:55 Room Air 07/21/16 20:00 100.0 82 22 132/63 94 07/21/16 20:00 84 07/21/16 16:00 98.9 81 24 160/73 93 I/O 07/21/16 07/21/16 07/21/16 07/22/16 07/22/16 07/22/16 07:00 15:00 23:00 07:00 15:00 23:00 Intake Total 0 ml 0 ml 1368 ml Output Total 300 ml 400 ml 280 ml Balance -300 ml -400 ml 1088 ml Intake Oral 0 ml 0 ml 462 ml IV Total 906 ml Output Urine Total 300 ml 400 ml 280 ml # Bowel Movements 0 0 0 Result Diagram: 07/22/16 0830 07/22/16 0830 Imaging Last Impressions Chest X-Ray 07/20/16 0000 Signed Impressions: Service Date/Time: Wednesday, July 20, 2016 12:38 - CONCLUSION: Mild left base consolidation developing. Alfredo Sneed MD Brain MRI 07/20/16 0000 Signed Impressions: Service Date/Time: Wednesday, July 20, 2016 09:15 - CONCLUSION: No acute intracranial abnormality. Moderately severe chronic white matter changes, nonspecific but most likely small vessel ischemia. Alfredo Sneed MD Head CT 07/19/16 0000 Signed Impressions: Service Date/Time: Tuesday, July 19, 2016 09:58 - CONCLUSION: No acute intracranial findings. João Otoole MD Foot X-Ray 07/16/16 0000 Signed Impressions: Service Date/Time: Saturday, July 16, 2016 17:34 - CONCLUSION: 1. Nonspecific soft tissue swelling. No acute bone destruction demonstrated. 2. Mild talonavicular and navicular/cuneiform degenerative changes. 3. Second through fifth hammertoe. 4. Moderate-sized heel spur. Alfredo Sneed MD Objective Remarks GENERAL: Patient is a 61 yo female, BMI of 38, appearing anxious. Well-nourished , well-developed patient. SKIN: Warm and dry. BLE necrotic wounds, cassy wrap dsg in place. HEAD: Normocephalic. EYES: No scleral icterus. No injection or drainage. NECK: Supple, trachea midline. No JVD or lymphadenopathy. CARDIOVASCULAR: Regular rate and rhythm without murmurs, gallops, or rubs. RESPIRATORY: Breath sounds equal bilaterally. No accessory muscle use. On 2L nc. GASTROINTESTINAL: Abdomen soft, non-tender, nondistended. MUSCULOSKELETAL: No cyanosis, or edema. BACK: Nontender without obvious deformity. No CVA tenderness. EXTREMITIES: Multiple venous status ulcers nonhealing up to her knees NEURO: Awake and alert. Disoriented to place, time, and person. Normal speech. Able to carry out sentence conversation but forgets and goes off topic, need redirection. Procedures None Procedures None A/P Problem List: (1) Cellulitis of left lower extremity ICD Code: L03.116 Status: Acute (2) Delirium due to another medical condition ICD Code: F05 Status: Acute Assessment and Plan Pt. is 61-year-old female, with multiple admissions, with history of cellulitis of legs, severe PVD, diabetes and cardiomyopathy EF of 30% was at the rehabilitation facility when she became more altered today lethargic and hypoxic. Rapid response team was called and transferred patient to ICU. In the ICU patient remains confused and lethargic responsive to pain with a stable blood pressure and saturation of 100% on 40% face mask. Today, patient has improved, awake and alert. On nasal cannula, denies SOB/ Dyspnea. requesting to go back to rehabilitation. Denies chest pain, headache, palpitations, dizziness, n/v/d. Respiratory Failure - possibly exacerbated with metabolic encephalopathy, placed on Face mask, improved now on 2L nc Nebs scheduled, PRN May need CPAP at night Pulmonology Consult, need sleep study as OP Altered mental status Poss Metabolic toxic encephalopathy. 2nd episode Possible seizure. EEG with possible seizure - Hold all medications that could contribute. Hold anxiolytics and narcotic Head CT normal ABG reviewed Continue keppra IV 500 . Consult neurology, appreciate recommendations, seen by Dr Rodriguez following. MRI 07/20 reviewed no acute process. Psychosis. Consult psychiatry. Peripheral vascular disease - Supportive care. Wound Care. - Pain control - F/U with vascular surgeon Diabetes - Hold Levemir due to hypoglycemia - Insulin sliding scale for now, until eating better Cardiomyopathy - Coreg - Isosorbide - Monitor BP Trend Hypothyroidism - TSH 9.150 - Synthroid 150mcg daily, check freeT4, may also be related to recent acute illness. Recheck in 4 weeks. Bilteral LE Cellulitis Left LE with gangrenous 2nd and 3rd feet. Continue dressing changes per Dr Valdes podiatry recommendation. Reconsult vascular surgeon Dr Taylor ( known to patient) on 07/20. Seen by Dr Pastrana 07/[address] Estrada. Patietn / family wants to wait for Dr Taylor for further assessment and recommendations. Seen by Dr Taylor vasc surg Mild PAD and chronic wounds, s/p L SFA MACHINE WHITENER and recanalization with good runoff. Based on radiographic images post-intervention, she has adequate blood flow to heal wounds She needs ABIs or at least Doppler waveforms to confirm patency, reordered per Dr Taylor. Appreciate vasc surg recommendations. For wound care, I recommend consulting developmental training counselor and plastic surgery. Debrided in OR during angioplasty but clearly needs more definitive wound care plan separate from completed revascularization - Levaquin to continue. - ID consult. WBC elevated 16.5 Leucocytosis noted 07/20 . Also with tachypnea and bandemia. Repeat ABG reviewed. Start sepsis protocol. Check Urine cultures, check blood cultures x2, check CXR, lactic acid normal. Patient currently on levaquin. ID following. Hyponatremia - IVF NS 84ml/hr previously on sodium tabs - Monitor BMP. DC IV fluids with adequate fluid intake. DVT GI prophylaxis - Heparin and Pepcid Full code Discussed with patient, nurse Discharge Planning DC pending improvement and clearance form consultants. Mikala Johnson MD Jul 22, 2016 14:08
[2016-07-22 16:00] VITALS: BP 143/62; PULSE 79; RESP 22; TEMP 99.2; O2SAT 96
[2016-07-22] MEDS: HYDROmorphone HCL PF 1 MG/ML VIAL IV PUSH PRN (17:55)
[2016-07-22 19:15] VITALS: BP 180/73; PULSE 75; RESP 18; TEMP 98.8; O2SAT 96
[2016-07-22 20:00] VITALS: PULSE 75
--- NOTE | 2016-07-22 20:04 | HHI.PR ---
Subjective Remarks 61 YO WF withDM,CMP,DVT,Leg ulcer Weaned to RA No CP,fever or chills MRI, EEG done Neuro following Much more awake had dressing change Objective Vital Signs Vital Signs Date Time Temp Pulse Resp B/P Pulse Ox O2 Delivery O2 Flow Rate FiO2 07/22/16 19:15 98.8 75 18 180/73 96 07/22/16 16:00 99.2 79 22 143/62 96 07/22/16 12:00 99.0 73 20 128/60 97 07/22/16 08:51 Room Air 07/22/16 08:00 99.1 78 22 174/80 96 07/22/16 02:09 Room Air 07/22/16 00:00 99.1 78 20 155/66 93 07/21/16 20:55 Room Air I/O 07/21/16 07/21/16 07/21/16 07/22/16 07/22/16 07/22/16 07:00 15:00 23:00 07:00 15:00 23:00 Intake Total 0 ml 0 ml 1368 ml 720 ml Output Total 300 ml 400 ml 280 ml 525 ml Balance -300 ml -400 ml 1088 ml 195 ml Intake Oral 0 ml 0 ml 462 ml 720 ml IV Total 906 ml Output Urine Total 300 ml 400 ml 280 ml 525 ml # Bowel Movements 0 0 0 1 Result Diagram: 07/22/1682907/22/1630 Objective Remarks GENERAL: Obese WF, NAD SKIN: Warm and dry. HEAD: Normocephalic. EYES: No scleral icterus. No injection or drainage. NECK: Supple, trachea midline. No JVD or lymphadenopathy. CARDIOVASCULAR: Regular rate and rhythm without murmurs, gallops, or rubs. RESPIRATORY: Breath sounds equal bilaterally. No accessory muscle use. GASTROINTESTINAL: Abdomen soft, non-tender, nondistended. MUSCULOSKELETAL: No cyanosis, or edema. BACK: Nontender without obvious deformity. No CVA tenderness. A/P Assessment and Plan LIVE likly DM Leg ulcer DVT CMP Encephalopathy PLAN: Will need sleep study as out pt Monitor BS Cont Abx DW and daughter at BS . Neuro following Lito Harris MD Jul 22, 2016 20:04
[2016-07-23] VITALS (9 sets, daily range): BP systolic 144–180; BP diastolic 65–80; PULSE 71–89; RESP 16–20; TEMP 97.3–98.6; O2SAT 95–98
[2016-07-23] MEDS: VALPROATE INJ 500 MG in SODIUM CHLORIDE 0.9% INJ 100 ML IV SCH ×3 (00:44→17:56)
[2016-07-23] MEDS: CEFEPIME INJ 2,000 MG in SODIUM CHLORIDE 0.9% INJ 100 ML IV SCH ×2 (03:00→16:12)
[2016-07-23] MEDS: CHLORHEXIDINE GLUCONATE 2 % 1 PACK (2 CLOTHS) TOP SCH (04:00)
[2016-07-23] MEDS: LEVOTHYROXINE SODIUM 150 MCG TAB PO SCH (04:22)
[2016-07-23] MEDS: ISOSORBIDE DINITRATE 5 MG TAB PO SCH ×3 (04:22→20:24)
[2016-07-23] MEDS: HEPARIN SODIUM - SQ 10,000 UNITS/ML VIAL SQ SCH ×3 (04:23→20:25)
[2016-07-23] MEDS: SODIUM CHLOR 0.9% 1000 ML INJ 1,000 ML IV SCH ×2 (04:23→18:22)
[2016-07-23] MEDS: ACETAMINOPHEN/HYDROcodone 325 MG/5 MG TAB PO PRN ×2 (05:32→20:24)
[2016-07-23] MEDS: ASPIRIN EC 325 MG TABEC PO SCH ×2 (09:00→09:56)
[2016-07-23] MEDS: CARVEDILOL 12.5 MG TAB PO SCH ×3 (09:00→20:23)
[2016-07-23] MEDS: SODIUM CHLORIDE 0.9% FLUSH 5 ML FLUSH IV FLUSH SCH ×2 (09:00→20:29)
[2016-07-23] MEDS: LIOTHYRONINE SODIUM 5 MCG TAB PO SCH ×2 (09:00→09:56)
[2016-07-23] MEDS: FAMOTIDINE 20 MG/2 ML VIAL IV PUSH SCH ×3 (09:00→20:24)
[2016-07-23] MEDS: DOCUSATE SODIUM 100 MG CAP PO SCH ×3 (09:00→20:24)
[2016-07-23] MEDS: LACTOBACILLUS ACIDOPHILUS TAB PO SCH ×3 (09:56→18:24)
[2016-07-23] MEDS ORDERED: DEXTROSE 50% IN WATER 50 ML VIAL(D50) IV PUSH PRN (11:00)
[2016-07-23] MEDS ORDERED: GLUCAGON 1 MG/ML VIAL OTHER PRN (11:00)
[2016-07-23] MEDS: INSULIN ASPART SUPPLEMENTAL SCALE SQ SCH ×3 (12:45→20:34)
--- NOTE | 2016-07-23 13:24 | HHI.PR ---
Subjective Remarks The patient is sleepy, however arousable. She is denying having any pain, sob. No seizures. Per nurse when the patient is not sleepy she is having aggressive behaviour. She is following some commands. No n/v/d/c. Doesn't eat much. Objective Vitals Vital Signs Date Time Temp Pulse Resp B/P Pulse Ox O2 Delivery O2 Flow Rate FiO2 07/23/16 04:00 98.2 73 18 166/74 96 07/23/16 00:00 97.3 89 18 144/65 95 07/22/16 20:00 75 07/22/16 20:00 Room Air 07/22/16 19:15 98.8 75 18 180/73 96 07/22/16 16:00 99.2 79 22 143/62 96 I/O 07/22/16 07/22/16 07/22/16 07/23/16 07/23/16 07/23/16 07:00 15:00 23:00 07:00 15:00 23:00 Intake Total 720 ml 240 ml 1135 ml Output Total 525 ml 0 ml 350 ml Balance 195 ml 240 ml 785 ml Intake Oral 720 ml 240 ml 240 ml IV Total 895 ml Output Urine Total 525 ml 0 ml 350 ml # Bowel Movements 1 0 0 Result Diagram: 07/22/16 0830 07/22/16 0830 Imaging Last Impressions Chest X-Ray 07/20/16 0000 Signed Impressions: Service Date/Time: Wednesday, July 20, 2016 12:38 - CONCLUSION: Mild left base consolidation developing. Alfredo Sneed MD Brain MRI 07/20/16 0000 Signed Impressions: Service Date/Time: Wednesday, July 20, 2016 09:15 - CONCLUSION: No acute intracranial abnormality. Moderately severe chronic white matter changes, nonspecific but most likely small vessel ischemia. Alfredo Sneed MD Head CT 07/19/16 0000 Signed Impressions: Service Date/Time: Tuesday, July 19, 2016 09:58 - CONCLUSION: No acute intracranial findings. João Otoole MD Foot X-Ray 07/16/16 0000 Signed Impressions: Service Date/Time: Saturday, July 16, 2016 17:34 - CONCLUSION: 1. Nonspecific soft tissue swelling. No acute bone destruction demonstrated. 2. Mild talonavicular and navicular/cuneiform degenerative changes. 3. Second through fifth hammertoe. 4. Moderate-sized heel spur. Alfredo Sneed MD Objective Remarks GENERAL: Patient is a 61 yo female, BMI of 38, appearing anxious. Well-nourished , well-developed patient. SKIN: Warm and dry. BLE necrotic wounds, cassy wrap dsg in place. HEAD: Normocephalic. EYES: No scleral icterus. No injection or drainage. NECK: Supple, trachea midline. No JVD or lymphadenopathy. CARDIOVASCULAR: Regular rate and rhythm without murmurs, gallops, or rubs. RESPIRATORY: Breath sounds equal bilaterally. No accessory muscle use. On 2L nc. GASTROINTESTINAL: Abdomen soft, non-tender, nondistended. MUSCULOSKELETAL: No cyanosis, or edema. BACK: Nontender without obvious deformity. No CVA tenderness. EXTREMITIES: Multiple venous status ulcers nonhealing up to her knees NEURO: Awake and alert. Disoriented to place, time, and person. Normal speech. Able to carry out sentence conversation but forgets and goes off topic, need redirection. Procedures None Procedures None A/P Problem List: (1) Cellulitis of left lower extremity ICD Code: L03.116 Status: Acute (2) Delirium due to another medical condition ICD Code: F05 Status: Acute Assessment and Plan Pt. is 61-year-old female, with multiple admissions, with history of cellulitis of legs, severe PVD, diabetes and cardiomyopathy EF of 30% was at the rehabilitation facility when she became more altered today lethargic and hypoxic. Rapid response team was called and transferred patient to ICU. In the ICU patient remains confused and lethargic responsive to pain with a stable blood pressure and saturation of 100% on 40% face mask. Today, patient has improved, awake and alert. On nasal cannula, denies SOB/ Dyspnea. requesting to go back to rehabilitation. Denies chest pain, headache, palpitations, dizziness, n/v/d. Respiratory Failure - possibly exacerbated with metabolic encephalopathy, placed on Face mask, improved now on 2L nc Nebs scheduled, PRN May need CPAP at night Pulmonology Consult, need sleep study as OP Altered mental status Poss Metabolic toxic encephalopathy. 2nd episode Possible seizure. EEG with possible seizure - Hold all medications that could contribute. Hold anxiolytics and narcotic Head CT normal ABG reviewed DC keppra IV 500 . Consult neurology, appreciate recommendations, seen by Dr Rodriguez following. Started depakote per neuro. MRI 07/20 reviewed no acute process. Psychosis. Consult psychiatry. Peripheral vascular disease - Supportive care. Wound Care. - Pain control - F/U with vascular surgeon Diabetes - Hold Levemir due to hypoglycemia - Insulin sliding scale for now, until eating better Cardiomyopathy - Coreg - Isosorbide - Monitor BP Trend Hypothyroidism - TSH 9.150 - Synthroid 150mcg daily, check freeT4, may also be related to recent acute illness. Recheck in 4 weeks. Bilteral LE Cellulitis Left LE with gangrenous 2nd and 3rd feet. Continue dressing changes per Dr Valdes podiatry recommendation. Reconsult vascular surgeon Dr Taylor ( known to patient) on 07/20. Seen by Dr Pastrana 07/[address] Estrada. Patietn / family wants to wait for Dr Taylor for further assessment and recommendations. 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 Based on radiographic images post-intervention, she has adequate blood flow to heal wounds She needs ABIs or at least Doppler waveforms to confirm patency, reordered per Dr Taylor. Appreciate vasc surg recommendations. For wound care, I recommend consulting coding clerks supervisor and plastic surgery. Debrided in OR during angioplasty but clearly needs more definitive wound care plan separate from completed revascularization - Levaquin to continue. - ID consult. WBC elevated 16.5 Leucocytosis noted 07/20 . Also with tachypnea and bandemia. Repeat ABG reviewed. Start sepsis protocol. Check Urine cultures, check blood cultures x2, check CXR, lactic acid normal. Patient currently on levaquin. ID following. Hyponatremia - IVF NS 84ml/hr previously on sodium tabs - Monitor BMP. DC IV fluids with adequate fluid intake. DVT GI prophylaxis - Heparin and Pepcid Full code Discussed with patient, nurse Discharge Planning DC pending improvement and clearance form consultants. Mikala Johnson MD Jul 23, 2016 13:24
--- NOTE | 2016-07-23 16:37 | HHI.IDPN ---
Subjective Subjective Remarks Asked to reevaluate and follow up patient for worsening leukocytosis Reviewed chart. Patient had persistent AMS with ? absence seizure like activity. Underwent an EEG and placed on AEDs. Afebrile. No rash No diarrhea " Send me home please, I want to go home" I calmed her down. Explained to her that she cannot go home as treatment is underway. I explained to her that if she interrupted treatment and go home we could consider that but she needs to consider palliative care as an option. If she wants treatment and goals are aggressive then we can make her comfortable here and continue with the medical and possibly surgical management. Her was in the room as well. Once I offered her ice cream she calmed down and was ok. Antibiotics Cefepime IV Lines Line sites with no e.o infection. Past Medical History PVD - has CTA last year and has lesions that could be corrected Hypertension Diabetes Cardiomyopathysustained after contrast-induced flash pulmonary edema- latest EF was 30% in March 2016. Obesity Hypothyroidism History of dermoid cyststatus post left oophorectomy 25 years ago Past Surgical History Left oophorectomy for dermoid cyst removal Cholecystectomy Hernia repair Allergies: Coded Allergies: Contrast Media (Verified Allergy, Severe, Flash pulmonary edema , 06/16/16) PEANUTS (Verified Allergy, Severe, rash, 07/03/16) swelling of the tongue Santyl (Verified Allergy, Intermediate, Irritation, 07/09/16) Objective . Vital Signs Date Time Temp Pulse Resp B/P Pulse Ox O2 Delivery O2 Flow Rate FiO2 07/23/16 12:00 98.1 71 18 165/75 98 07/23/16 08:00 98.1 72 18 150/65 98 07/23/16 04:00 98.2 73 18 166/74 96 07/23/16 00:00 97.3 89 18 144/65 95 07/22/16 20:00 75 07/22/16 20:00 Room Air 07/22/16 19:15 98.8 75 18 180/73 96 07/22/16 07/22/16 07/23/16 15:00 23:00 07:00 Intake Total 720 ml 240 ml 1135 ml Output Total 525 ml 0 ml 350 ml Balance 195 ml 240 ml 785 ml Intake Oral 720 ml 240 ml 240 ml IV Total 895 ml Output Urine Total 525 ml 0 ml 350 ml # Bowel Movements 1 0 0 . Laboratory Tests Test 07/22/16 08:30 White Blood Count 14.7 TH/MM3 Red Blood Count 3.60 MIL/MM3 Hemoglobin 8.4 GM/DL Hematocrit 27.4 % Mean Corpuscular Volume 76.3 FL Mean Corpuscular Hemoglobin 23.5 PG Mean Corpuscular Hemoglobin 30.8 % Concent Red Cell Distribution Width 18.1 % Platelet Count 393 TH/MM3 Mean Platelet Volume 6.6 FL Neutrophils (%) (Auto) 78.9 % Lymphocytes (%) (Auto) 13.4 % Monocytes (%) (Auto) 6.0 % Eosinophils (%) (Auto) 1.1 % Basophils (%) (Auto) 0.6 % Neutrophils # (Auto) 11.6 TH/MM3 Lymphocytes # (Auto) 2.0 TH/MM3 Monocytes # (Auto) 0.9 TH/MM3 Eosinophils # (Auto) 0.2 TH/MM3 Basophils # (Auto) 0.1 TH/MM3 CBC Comment AUTO DIFF Differential Comment AUTO DIFF CONFIRMED Laboratory Tests Test 07/22/16 08:30 Sodium Level 142 MEQ/L Potassium Level 3.3 MEQ/L Chloride Level 105 MEQ/L Carbon Dioxide Level 30.1 MEQ/L Anion Gap 7 MEQ/L Blood Urea Nitrogen 12 MG/DL Creatinine 0.80 MG/DL Estimat Glomerular Filtration 73 ML/MIN Rate Random Glucose 255 MG/DL Calcium Level 7.8 MG/DL Magnesium Level 2.0 MG/DL Imaging Chest X-Ray 07/20/16 0000 Signed Impressions: Service Date/Time: Wednesday, July 20, 2016 12:38 - CONCLUSION: Mild left base consolidation developing. Alfredo Sneed MD Brain MRI 07/20/16 0000 Signed Impressions: Service Date/Time: Wednesday, July 20, 2016 09:15 - CONCLUSION: No acute intracranial abnormality. Moderately severe chronic white matter changes, nonspecific but most likely small vessel ischemia. Aflredo Sneed MD Head CT 07/19/16 0000 Signed Impressions: Service Date/Time: Tuesday, July 19, 2016 09:58 - CONCLUSION: No acute intracranial findings. João Otoole MD Foot X-Ray 07/16/16 0000 Signed Impressions: Service Date/Time: Saturday, July 16, 2016 17:34 - CONCLUSION: 1. Nonspecific soft tissue swelling. No acute bone destruction demonstrated. 2. Mild talonavicular and navicular/cuneiform degenerative changes. 3. Second through fifth hammertoe. 4. Moderate-sized heel spur. Alfredo Sneed MD Physical Exam GENERAL: Obese, CF. SKIN: No rashes. Warm and dry HEENT: [place] conjunctivae. No icterus, moist mucosa NECK: Trachea midline. Supple, nontender, no meningeal signs. CARDIOVASCULAR: HS audible. No murmur appreciated. Decreased BS at bases RESPIRATORY: Clear to auscultation. Breath sounds equal bilaterally. GASTROINTESTINAL: Abdomen soft, non-tender, nondistended. Obese. MUSCULOSKELETAL: Bilateral extremities with ulcers, has slough,, edema better, has dry gangrene L 2nd and 3rd toes NEUROLOGICAL: lethargic, moves all extremities. Psych: could not be assessed. IV line sites with no e.o infection. Assessment & Plan Remarks Leukocytosis, prob due to UTI - also with L base consolidation. Possible mild cellulitis BLE, has chronic venous stasis ulcers with underlying PVD Dry gangrene 2 toes L foot PVD, S/P revascularization Encephalopathy, prob pain meds a big factor, ? seizure related Cardiomyopathy DM with neuropathy. Hypothyroidism Chronic narcotic use. Anxiety and Depression. PLAN Continue Cefepime IV (stop date: 07/27/2015) Wound care Follow C/S Vascular surgery to reevaluate Monitor temps Monitor progress d/w patient and as well as RN. Will sign off please call back if any change in clinical condition or questions. Charisse Pedraza MD Jul 23, 2016 16:37
[2016-07-23] MEDS: HYDROmorphone HCL PF 1 MG/ML VIAL IV PUSH PRN (18:25)
--- NOTE | 2016-07-23 19:28 | HHI.PR ---
Subjective Remarks 61 YO WF withDM,CMP,DVT,Leg ulcer Weaned to RA No CP,fever or chills MRI, EEG done Much more awake, c/o pain had dressing change at BS Objective Vital Signs Vital Signs Date Time Temp Pulse Resp B/P Pulse Ox O2 Delivery O2 Flow Rate FiO2 07/23/16 16:00 98.6 78 18 180/80 96 07/23/16 12:00 98.1 71 18 165/75 98 07/23/16 09:00 74 07/23/16 08:00 Room Air 07/23/16 08:00 98.1 72 18 150/65 98 07/23/16 04:00 98.2 73 18 166/74 96 07/23/16 00:00 97.3 89 18 144/65 95 07/22/16 20:00 75 07/22/16 20:00 Room Air I/O 07/22/16 07/22/16 07/22/16 07/23/16 07/23/16 07/23/16 07:00 15:00 23:00 07:00 15:00 23:00 Intake Total 720 ml 240 ml 1135 ml 120 ml Output Total 525 ml 0 ml 350 ml 300 ml Balance 195 ml 240 ml 785 ml -180 ml Intake Oral 720 ml 240 ml 240 ml 120 ml IV Total 895 ml Output Urine Total 525 ml 0 ml 350 ml 300 ml # Bowel Movements 1 0 0 0 Result Diagram: 07/22/1630 07/22/16 0830 Objective Remarks GENERAL: Obese WF, NAD SKIN: Warm and dry. HEAD: Normocephalic. EYES: No scleral icterus. No injection or drainage. NECK: Supple, trachea midline. No JVD or lymphadenopathy. CARDIOVASCULAR: Regular rate and rhythm without murmurs, gallops, or rubs. RESPIRATORY: Breath sounds equal bilaterally. No accessory muscle use. GASTROINTESTINAL: Abdomen soft, non-tender, nondistended. MUSCULOSKELETAL: No cyanosis, or edema. BACK: Nontender without obvious deformity. No CVA tenderness. A/P Assessment and Plan LIVE likly DM Leg ulcer DVT CMP Encephalopathy PLAN: Will need sleep study as out pt Monitor BS Cont Abx DW at Lito Harris MD Jul 23, 2016 19:28
[2016-07-24] VITALS (8 sets, daily range): BP systolic 138–174; BP diastolic 63–80; PULSE 68–77; RESP 16–20; TEMP 98.2–98.8; O2SAT 95–99
[2016-07-24] MEDS: VALPROATE INJ 500 MG in SODIUM CHLORIDE 0.9% INJ 100 ML IV SCH ×3 (00:23→18:45)
[2016-07-24] MEDS: CEFEPIME INJ 2,000 MG in SODIUM CHLORIDE 0.9% INJ 100 ML IV SCH ×2 (01:57→16:38)
[2016-07-24] MEDS: CHLORHEXIDINE GLUCONATE 2 % 1 PACK (2 CLOTHS) TOP SCH (04:00)
[2016-07-24] MEDS: SODIUM CHLORIDE 0.9% FLUSH 5 ML FLUSH IV FLUSH PRN (04:49)
[2016-07-24] MEDS: HYDROmorphone HCL PF 1 MG/ML VIAL IV PUSH PRN (04:49)
[2016-07-24] MEDS: LEVOTHYROXINE SODIUM 150 MCG TAB PO SCH (05:07)
[2016-07-24] MEDS: ISOSORBIDE DINITRATE 5 MG TAB PO SCH ×3 (05:07→21:00)
[2016-07-24] MEDS: SODIUM CHLOR 0.9% 1000 ML INJ 1,000 ML IV SCH ×2 (05:08→16:39)
[2016-07-24] MEDS: HEPARIN SODIUM - SQ 10,000 UNITS/ML VIAL SQ SCH ×3 (05:08→21:00)
[2016-07-24] MEDS: INSULIN ASPART SUPPLEMENTAL SCALE SQ SCH ×4 (05:14→21:00)
[2016-07-24 08:02] LABS: AUTOMATED NEUTROPHIL # 7.2 TH/MM3 (1.8-7.7); BASOPHIL % 0.3 % (0.0-2.0); EOSINOPHIL # 0.1 TH/MM3 (0-0.4); EOSINOPHIL % 1.2 % (0.0-4.0); HEMATOCRIT 25.5 % (35.0-46.0); LYMPH % 14.1 % (9.0-44.0); LYMPHOCYTE # 1.3 TH/MM3 (1.0-4.8); MEAN CELL VOLUME 75.7 FL (80.0-100.0); MEAN CORPUSCULAR HEMOGLOBIN 23.7 PG (27.0-34.0); MEAN CORPUSCULAR HGB CONC 31.3 % (32.0-36.0); MONO % 6.9 % (0.0-8.0); NEUT % 77.5 % (16.0-70.0); PLATELET COUNT 325 TH/MM3 (150-450); RED BLOOD COUNT 3.37 MIL/MM3 (4.00-5.30); RED CELL DISTRIBUTION WIDTH 17.8 % (11.6-17.2); WHITE BLOOD COUNT 9.3 TH/MM3 (4.0-11.0)
[2016-07-24 08:12] LABS: HEMO FLAGS AUTO DIFF
[2016-07-24 08:26] LABS: BICARBONATE 27.1 MEQ/L (21.0-32.0); POTASSIUM 3.2 MEQ/L (3.5-5.1)
[2016-07-24] MEDS: SODIUM CHLORIDE 0.9% FLUSH 5 ML FLUSH IV FLUSH SCH ×2 (09:00→20:58)
[2016-07-24 09:09] LABS: BANDS 28 % (0-6); EOSINOPHILS 1 % (0-4); METAMYELOCYTES 1 % (0-1); MYELOCYTES 1 % (0-0); NEUTROPHIL # MANUAL DIFF 8.6 TH/MM3 (1.8-7.7); PLATELET ESTIMATE SMEAR NORMAL (NORMAL); PLATELET MORPHOLOGY NORMAL (NORMAL); POLYS (SEG NEUTROPHILS) 63 % (16-70); WBC DIFF SAMPLE 100
[2016-07-24 09:10] LABS: SCAN/DIFF FINAL DIFF MANUAL
[2016-07-24] MEDS: CARVEDILOL 12.5 MG TAB PO SCH ×2 (09:12→20:59)
[2016-07-24] MEDS: LIOTHYRONINE SODIUM 5 MCG TAB PO SCH (09:12)
[2016-07-24] MEDS: ASPIRIN EC 325 MG TABEC PO SCH (09:12)
[2016-07-24] MEDS: LACTOBACILLUS ACIDOPHILUS TAB PO SCH ×3 (09:12→16:39)
[2016-07-24] MEDS: ACETAMINOPHEN/HYDROcodone 325 MG/5 MG TAB PO PRN (09:13)
[2016-07-24] MEDS: DOCUSATE SODIUM 100 MG CAP PO SCH ×2 (09:13→20:58)
[2016-07-24] MEDS: FAMOTIDINE 20 MG/2 ML VIAL IV PUSH SCH ×2 (09:13→20:59)
--- NOTE | 2016-07-24 12:35 | HHI.PR ---
Subjective Remarks resting comfortably with no distress. pain is fairly controlled. no fever. daughter at the bedside. Objective Vitals Vital Signs Date Time Temp Pulse Resp B/P Pulse Ox O2 Delivery O2 Flow Rate FiO2 07/24/16 09:00 70 07/24/16 08:00 Room Air 07/24/16 08:00 98.3 74 18 167/73 95 07/24/16 04:43 98.2 72 16 174/80 97 07/23/16 23:28 98.3 71 16 168/77 97 07/23/16 20:16 Room Air 07/23/16 20:10 97.5 78 20 169/70 96 07/23/16 20:00 82 07/23/16 16:00 98.6 78 18 180/80 96 I/O 07/23/16 07/23/16 07/23/16 07/24/16 07/24/16 07/24/16 07:00 15:00 23:00 07:00 15:00 23:00 Intake Total 1135 ml 120 ml 0 ml 2215 ml Output Total 350 ml 300 ml 200 ml 50 ml Balance 785 ml -180 ml -200 ml 2165 ml Intake Oral 240 ml 120 ml 0 ml 0 ml IV Total 895 ml 2215 ml Output Urine Total 350 ml 300 ml 200 ml 50 ml # Bowel Movements 0 0 0 1 Result Diagram: 07/24/1631 07/24/16 0631 Imaging Last Impressions Chest X-Ray 07/20/16 0000 Signed Impressions: Service Date/Time: Wednesday, July 20, 2016 12:38 - CONCLUSION: Mild left base consolidation developing. Alfredo Sneed MD Brain MRI 07/20/16 0000 Signed Impressions: Service Date/Time: Wednesday, July 20, 2016 09:15 - CONCLUSION: No acute intracranial abnormality. Moderately severe chronic white matter changes, nonspecific but most likely small vessel ischemia. Alfredo Sneed MD Head CT 07/19/16 0000 Signed Impressions: Service Date/Time: Tuesday, July 19, 2016 09:58 - CONCLUSION: No acute intracranial findings. João Otoole MD Foot X-Ray 07/16/16 0000 Signed Impressions: Service Date/Time: Saturday, July 16, 2016 17:34 - CONCLUSION: 1. Nonspecific soft tissue swelling. No acute bone destruction demonstrated. 2. Mild talonavicular and navicular/cuneiform degenerative changes. 3. Second through fifth hammertoe. 4. Moderate-sized heel spur. Alfredo Sneed MD Objective Remarks GENERAL: This is a well-nourished, well-developed patient, in no apparent distress. CARDIOVASCULAR: Regular rate and irregular rhythm without murmurs, gallops, or rubs. RESPIRATORY: Clear to auscultation. Breath sounds equal bilaterally. No wheezes , rales, or rhonchi. GASTROINTESTINAL: Abdomen soft, non-tender, nondistended. Normal, active bowel sounds MUSCULOSKELETAL: both legs covered with clean dressing. NEURO: Alert & Oriented x4 to person, place, time, situation. Moves all ext x4 Medications and IVs Current Medications Sodium Chloride (NS 1000 ml Inj) 1,000 ml @ 84 mls/hr [id number] IV Last administered on 07/24/16 05:08; Start 07/15/16 at 19:42 IV Flush (NS Flush) 2 ml UNSCH PRN IV FLUSH FLUSH AFTER USING IV ACCESS Last administered on 07/24/16 04:49; Start 07/15/16 at 19:45 IV Flush (NS Flush) 2 ml BID IV FLUSH Last administered on 07/23/16 20:29; Start 07/15/16 at 21:00 Fentanyl Citrate (fentaNYL INJ) 50 mcg Q3H PRN IV PUSH Pain scale 7-10 &/or sedation Last administered on 07/15/16 21:44; Start 07/15/16 at 19:45; Stop at 11:51; Status DC Famotidine (Pepcid Inj) 20 mg Q12HR IV PUSH Last administered on 07/15/16 20: 19; Start 07/15/16 at 21:00; Stop 07/15/16 at 21:24; Status DC Ondansetron HCl (Zofran Inj) 4 mg Q6H PRN IV NAUSEA OR VOMITING Last administered on 07/17/16 17:45; Start 07/15/16 at 19:45 Metoclopramide HCl (Reglan Inj) 5 mg Q6H PRN IV NAUSEA OR VOMITING; Start 07/15 at 19:45 Docusate Sodium (Colace) 100 mg BID PO Last administered on 07/24/16 09:13; Start 07/15/16 at 21:00 Albuterol/ Ipratropium (Duoneb Neb) 1 ampule Q2HR NEB PRN INH WHEEZING; Start 07/15/16 at 19:45 Heparin Sodium (Porcine) (Heparin Inj) 5,000 units Q8HR SQ Last administered on 07/24/16 05:08; Start 07/15/16 at 22:00 Miscellaneous Information 1 [id number] Last administered on 07/15/16 19:45; Start 07/15/16 at 19:45 Chlorhexidine Gluconate (Chlorhexidine 2% Cloth) Taper DAILY@04 TOP Last administered on 07/17/16 03:11; Start 07/16/16 at 04:00; Stop 07/12/17 at 03:59 Chlorhexidine Gluconate (Chlorhexidine 2% Cloth) 3 pack UNSCH PRN TOP HYGIENIC CARE; Start 07/15/16 at 19:45 Acetaminophen (Ofirmev Inj) 1,000 mg Q6H PRN IV PAIN SCALE 1 TO 6; Start at 20:00; Stop 07/18/16 at 11:51; Status DC Ketorolac Tromethamine (Toradol Inj) 30 mg Q6H PRN IM PAIN SCALE 1 TO 7; Start 07/15/16 at 20:00; Stop 07/15/16 at 20:10; Status DC Ketorolac Tromethamine (Toradol Inj) 30 mg Q6H PRN IV PUSH PAIN 1-6 Last administered on 07/15/16 20:34; Start 07/15/16 at 20:15; Stop 07/18/16 at 11:51 ; Status DC Carvedilol (Coreg) 25 mg BID PO Last administered on 07/24/16 09:12; Start at 21:00 Fluconazole (Diflucan) 75 mg DAILY@17 PO Last administered on 07/16/16 17:03; Start 07/16/16 at 17:00; Stop 07/17/16 at 08:09; Status DC Isosorbide Dinitrate (Isordil) 5 mg Q8HR PO Last administered on 07/24/16 05:07 ; Start 07/15/16 at 22:00 Lactobacillus Acidophilus (Lactinex) 1 tab TID PO Last administered on 09:12; Start 07/16/16 at 09:00 Levofloxacin (Levaquin) 250 mg Q48H PO Last administered on 07/21/16 21:05; Start 07/15/16 at 22:00; Stop 07/23/16 at 16:37; Status DC Levothyroxine Sodium (Synthroid) 150 mcg DAILY@06 PO Last administered on 05:07; Start 07/16/16 at 06:00 Liothyronine Sodium (Cytomel) 5 mcg DAILY PO Last administered on 07/24/16 09: 12; Start 07/16/16 at 09:00 Non-Formulary Medication 325 mg DAILY PO ; Start 07/16/16 at 09:00; Status UNV Miscellaneous (Pill Splitter) 1 ea UNSCH PRN OTHER SEE LABEL COMMENTS; Start at 21:30 Famotidine (Pepcid Inj) 10 mg Q12HR IV PUSH Last administered on 07/17/16 07: 29; Start 07/16/16 at 09:00; Stop 07/18/16 at 10:59; Status DC Aspirin (Ecotrin Ec) 325 mg DAILY PO Last administered on 07/24/16 09:12; Start 07/16/16 at 09:00 Etomidate (Amidate Inj) 20 mg STK-MED ONCE .ROUTE ; Start 07/16/16 at 17:07; Stop 07/16/16 at 17:08; Status DC Famotidine (Pepcid Inj) 20 mg Q12HR IV PUSH Last administered on 07/24/16 09:13 ; Start 07/18/16 at 21:00 Hydromorphone HCl (Dilaudid Pf Inj) 0.5 mg ONCE ONCE IV PUSH ; Start 07/18/16 at 11:45; Stop 07/18/16 at 11:46; Status DC Hydromorphone HCl (Dilaudid Pf Inj) 0.5 mg Q4H PRN IV PUSH breakthrough pain / dresing lori Last administered on 07/24/16 04:49; Start 07/18/16 at 11:45 Acetaminophen/ Hydrocodone Bitart ([place] 5-325 Mg) 1 tab Q6H PRN PO pain 2-10 Last administered on 07/24/16 09:13; Start 07/18/16 at 11:45 Diphenhydramine HCl 50 mg 50 mg STK-MED ONCE .ROUTE ; Start 07/19/16 at 11:20; Stop 07/19/16 at 11:21; Status DC Levetriacetam/ Sodium Chloride (Keppra Inj/NS Inj) 105 ml @ 420 mls/hr Q12HR IV Last administered on 07/20/16 08:19; Start 07/19/16 at 13:00; Stop at 16:25; Status DC Haloperidol Lactate (Haldol Inj) 2 mg Q6H PRN IM aggittation Last administered on 07/19/16 18:02; Start 07/19/16 at 12:30 Lorazepam 1 mg 1 mg Q6H PRN IV PUSH seizures/agiatation Last administered on 23:10; Start 07/19/16 at 12:30 Valproate Sodium 500 mg/Sodium Chloride 105 ml @ 105 mls/hr Q8H IV Last administered on 07/24/16 09:13; Start 07/20/16 at 18:00 Cefepime HCl/ Sodium Chloride (Maxipime Inj/NS Inj) 100 ml @ 200 mls/hr Q12H IV Last administered on 07/24/16 01:57; Start 07/21/16 at 15:00 Dextrose (D50w (Vial) Inj) 25 ml UNSCH PRN IV PUSH HYPOGLYCEMIA-SEE COMMENTS; Start 07/23/16 at 11:00 Glucagon (Glucagon Inj) 1 mg UNSCH PRN OTHER HYPOGLYCEMIA-SEE COMMENTS; Start 07/23/16 at 11:00 Insulin Aspart (NovoLOG SUPPLEMENTAL SCALE) 1 ACHS SLIDING SCALE SQ Last administered on 07/24/16 05:14; Start 07/23/16 at 11:00 A/P Assessment and Plan A/P Respiratory Failure - improved Nebs scheduled, PRN May need CPAP at night Pulmonology Consult, need sleep study as OP Altered mental status Poss Metabolic toxic encephalopathy. 2nd episode Possible seizure. EEG with possible seizure - Hold all medications that could contribute. Hold anxiolytics and narcotic Head CT normal DC keppra IV 500 . Consult neurology, appreciate recommendations, seen by Dr Rodriguez following. Started depakote per neuro. MRI 07/20 reviewed no acute process. Psychosis. Consulted psychiatry. Peripheral vascular disease - Supportive care. Wound Care. - Pain control - F/U with vascular surgeon Diabetes - Levemir on hold due to hypoglycemia - Insulin sliding scale for now, until eating better Cardiomyopathy - Coreg - Isosorbide - Monitor BP Trend Hypothyroidism - TSH 9.150 - Synthroid 150mcg daily, check freeT4, may also be related to recent acute illness. Recheck in 4 weeks. Bilteral LE Cellulitis Left LE with gangrenous 2nd and 3rd feet. Continue dressing changes per Dr Valdes podiatry recommendation. Reconsulted vascular surgeon Dr Taylor ( known to patient) on 07/20. Seen by Dr Taylor vasc surg; Mild PAD and chronic wounds, s/p L [employer] and recanalization with good runoff. Based on radiographic images post-intervention, she has adequate blood flow to heal wounds She needs ABIs or at least Doppler waveforms to confirm patency, reordered per Dr Taylor. Appreciate vasc surg recommendations. on Cefepime- till 07/26/16- ID has signed off. Hyponatremia - resolved- hypokalemia; will replace. DVT GI prophylaxis - Heparin and Pepcid Conrad Clancy MD Jul 24, 2016 12:35
[2016-07-24] MEDS ORDERED: POTASSIUM CHLORIDE 20 MEQ CONTROLLED RELEASE TAB PO ONE (13:00)
--- NOTE | 2016-07-24 18:32 | HHI.PR ---
Subjective Remarks 61 YO WF withDM,CMP,DVT,Leg ulcer Weaned to RA No CP,fever or chills MRI, EEG done Much more awake, c/o pain had dressing change No new complaint Objective Vital Signs Vital Signs Date Time Temp Pulse Resp B/P Pulse Ox O2 Delivery O2 Flow Rate FiO2 07/24/16 16:00 98.4 68 18 138/65 99 07/24/16 12:42 97 07/24/16 12:00 98.8 73 18 140/63 97 07/24/16 09:00 70 07/24/16 08:00 Room Air 07/24/16 08:00 98.3 74 18 167/73 95 07/24/16 04:43 98.2 72 16 174/80 97 07/23/16 23:28 98.3 71 16 168/77 97 07/23/16 20:16 Room Air 07/23/16 20:10 97.5 78 20 169/70 96 07/23/16 20:00 82 I/O 07/23/16 07/23/16 07/23/16 07/24/16 07/24/16 07/24/16 07:00 15:00 23:00 07:00 15:00 23:00 Intake Total 1135 ml 120 ml 0 ml 2215 ml 1228 ml Output Total 350 ml 300 ml 200 ml 50 ml 900 ml Balance 785 ml -180 ml -200 ml 2165 ml 328 ml Intake Oral 240 ml 120 ml 0 ml 0 ml 360 ml IV Total 895 ml 2215 ml 868 ml Output Urine Total 350 ml 300 ml 200 ml 50 ml 900 ml # Bowel Movements 0 0 0 1 0 Result Diagram: 07/24/1631 07/24/16630 Objective Remarks GENERAL: Obese WF, NAD SKIN: Warm and dry. HEAD: Normocephalic. EYES: No scleral icterus. No injection or drainage. NECK: Supple, trachea midline. No JVD or lymphadenopathy. CARDIOVASCULAR: Regular rate and rhythm without murmurs, gallops, or rubs. RESPIRATORY: Breath sounds equal bilaterally. No accessory muscle use. GASTROINTESTINAL: Abdomen soft, non-tender, nondistended. MUSCULOSKELETAL: No cyanosis, or edema. BACK: Nontender without obvious deformity. No CVA tenderness. A/P Assessment and Plan LIVE likly DM Leg ulcer DVT CMP Encephalopathy PLAN: Will need sleep study as out pt Monitor BS Cont Abx DW at BS pain controll Lito Harris MD Jul 24, 2016 18:32
[2016-07-25] VITALS (8 sets, daily range): BP systolic 114–176; BP diastolic 53–77; PULSE 70–80; RESP 18–20; TEMP 97.8–98.8; O2SAT 94–98
[2016-07-25] MEDS: VALPROATE INJ 500 MG in SODIUM CHLORIDE 0.9% INJ 100 ML IV SCH ×2 (01:30→09:26)
[2016-07-25] MEDS: CEFEPIME INJ 2,000 MG in SODIUM CHLORIDE 0.9% INJ 100 ML IV SCH ×2 (01:31→15:02)
[2016-07-25] MEDS: CHLORHEXIDINE GLUCONATE 2 % 1 PACK (2 CLOTHS) TOP SCH (03:49)
[2016-07-25] MEDS: SODIUM CHLOR 0.9% 1000 ML INJ 1,000 ML IV SCH ×2 (06:07→18:02)
[2016-07-25] MEDS: ISOSORBIDE DINITRATE 5 MG TAB PO SCH ×3 (06:26→21:08)
[2016-07-25] MEDS: HEPARIN SODIUM - SQ 10,000 UNITS/ML VIAL SQ SCH ×3 (06:26→21:11)
[2016-07-25] MEDS: LEVOTHYROXINE SODIUM 150 MCG TAB PO SCH (06:26)
[2016-07-25] MEDS: INSULIN ASPART SUPPLEMENTAL SCALE SQ SCH ×4 (06:27→21:12)
[2016-07-25 07:53] LABS: AUTOMATED NEUTROPHIL # 7.6 TH/MM3 (1.8-7.7); BASOPHIL % 0.3 % (0.0-2.0); EOSINOPHIL # 0.1 TH/MM3 (0-0.4); HEMATOCRIT 25.8 % (35.0-46.0); LYMPH % 15.5 % (9.0-44.0); LYMPHOCYTE # 1.5 TH/MM3 (1.0-4.8); MEAN CELL VOLUME 75.7 FL (80.0-100.0); MEAN CORPUSCULAR HEMOGLOBIN 23.8 PG (27.0-34.0); MEAN CORPUSCULAR HGB CONC 31.4 % (32.0-36.0); MONO % 7.2 % (0.0-8.0); PLATELET COUNT 325 TH/MM3 (150-450); RED CELL DISTRIBUTION WIDTH 18.1 % (11.6-17.2)
[2016-07-25 07:59] LABS: HEMO FLAGS AUTO DIFF
[2016-07-25 08:58] LABS: EOSINOPHILS 1 % (0-4); MYELOCYTES 1 % (0-0); NEUTROPHIL # MANUAL DIFF 8.5 TH/MM3 (1.8-7.7); PLATELET ESTIMATE SMEAR NORMAL (NORMAL); PLATELET MORPHOLOGY NORMAL (NORMAL); POLYS (SEG NEUTROPHILS) 84 % (16-70); SCAN/DIFF FINAL DIFF MANUAL; WBC DIFF SAMPLE 100
[2016-07-25] MEDS: SODIUM CHLORIDE 0.9% FLUSH 5 ML FLUSH IV FLUSH SCH ×2 (09:00→21:12)
[2016-07-25] MEDS: DOCUSATE SODIUM 100 MG CAP PO SCH ×2 (09:26→21:08)
[2016-07-25] MEDS: LACTOBACILLUS ACIDOPHILUS TAB PO SCH ×3 (09:26→17:19)
[2016-07-25] MEDS: LIOTHYRONINE SODIUM 5 MCG TAB PO SCH (09:26)
[2016-07-25] MEDS: ASPIRIN EC 325 MG TABEC PO SCH (09:26)
[2016-07-25] MEDS: CARVEDILOL 12.5 MG TAB PO SCH ×2 (09:26→21:07)
[2016-07-25] MEDS: FAMOTIDINE 20 MG/2 ML VIAL IV PUSH SCH ×2 (09:27→21:11)
--- NOTE | 2016-07-25 09:51 | HHI.PR ---
Subjective Remarks resting comfortably with no distress. denies pain. no fever. Objective Vitals Vital Signs Date Time Temp Pulse Resp B/P Pulse Ox O2 Delivery O2 Flow Rate FiO2 07/25/16 09:01 Room Air 07/25/16 04:00 98.3 70 20 167/56 96 07/25/16 00:00 98.0 73 20 155/75 95 07/24/16 20:04 76 07/24/16 20:00 98.3 77 20 157/72 97 07/24/16 19:45 Room Air 07/24/16 16:00 98.4 68 18 138/65 99 07/24/16 12:42 97 07/24/16 12:00 98.8 73 18 140/63 97 I/O 07/24/16 07/24/16 07/24/16 07/25/16 07/25/16 07/25/16 07:00 15:00 23:00 07:00 15:00 23:00 Intake Total 2215 ml 1228 ml 240 ml 120 ml Output Total 50 ml 900 ml 250 ml 600 ml Balance 2165 ml 328 ml -10 ml -480 ml Intake Oral 0 ml 360 ml 240 ml 120 ml IV Total 2215 ml 868 ml Output Urine Total 50 ml 900 ml 250 ml 600 ml # Bowel Movements 1 0 0 Result Diagram: 07/25/16 0710 07/24/16 0631 Imaging Last Impressions Chest X-Ray 07/20/16 0000 Signed Impressions: Service Date/Time: Wednesday, July 20, 2016 12:38 - CONCLUSION: Mild left base consolidation developing. Alfredo Sneed MD Brain MRI 07/20/16 0000 Signed Impressions: Service Date/Time: Wednesday, July 20, 2016 09:15 - CONCLUSION: No acute intracranial abnormality. Moderately severe chronic white matter changes, nonspecific but most likely small vessel ischemia. Alfredo Sneed MD Head CT 07/19/16 0000 Signed Impressions: Service Date/Time: Tuesday, July 19, 2016 09:58 - CONCLUSION: No acute intracranial findings. João Otoole MD Foot X-Ray 07/16/16 0000 Signed Impressions: Service Date/Time: Saturday, July 16, 2016 17:34 - CONCLUSION: 1. Nonspecific soft tissue swelling. No acute bone destruction demonstrated. 2. Mild talonavicular and navicular/cuneiform degenerative changes. 3. Second through fifth hammertoe. 4. Moderate-sized heel spur. Alfredo Sneed MD Objective Remarks GENERAL: This is a well-nourished, well-developed patient, in no apparent distress. CARDIOVASCULAR: Regular rate and irregular rhythm without murmurs, gallops, or rubs. RESPIRATORY: Clear to auscultation. Breath sounds equal bilaterally. No wheezes , rales, or rhonchi. GASTROINTESTINAL: Abdomen soft, non-tender, nondistended. Normal, active bowel sounds MUSCULOSKELETAL: both legs covered with clean dressing. NEURO: Alert & Oriented x4 to person, place, time, situation. Moves all ext x4 Medications and IVs Current Medications Sodium Chloride (NS 1000 ml Inj) 1,000 ml @ 84 mls/hr [id number] IV Last administered on 07/25/16 06:07; Start 07/15/16 at 19:42 IV Flush (NS Flush) 2 ml UNSCH PRN IV FLUSH FLUSH AFTER USING IV ACCESS Last administered on 07/24/16 04:49; Start 07/15/16 at 19:45 IV Flush (NS Flush) 2 ml BID IV FLUSH Last administered on 07/24/16 20:58; Start 07/15/16 at 21:00 Fentanyl Citrate (fentaNYL INJ) 50 mcg Q3H PRN IV PUSH Pain scale 7-10 &/or sedation Last administered on 07/15/16 21:44; Start 07/15/16 at 19:45; Stop at 11:51; Status DC Famotidine (Pepcid Inj) 20 mg Q12HR IV PUSH Last administered on 07/15/16 20: 19; Start 07/15/16 at 21:00; Stop 07/15/16 at 21:24; Status DC Ondansetron HCl (Zofran Inj) 4 mg Q6H PRN IV NAUSEA OR VOMITING Last administered on 07/17/16 17:45; Start 07/15/16 at 19:45 Metoclopramide HCl (Reglan Inj) 5 mg Q6H PRN IV NAUSEA OR VOMITING; Start 07/15 at 19:45 Docusate Sodium (Colace) 100 mg BID PO Last administered on 07/25/16 09:26; Start 07/15/16 at 21:00 Albuterol/ Ipratropium (Duoneb Neb) 1 ampule Q2HR NEB PRN INH WHEEZING; Start 07/15/16 at 19:45 Heparin Sodium (Porcine) (Heparin Inj) 5,000 units Q8HR SQ Last administered on 07/25/16 06:26; Start 07/15/16 at 22:00 Miscellaneous Information 1 Q361D XX Last administered on 07/15/16 19:45; Start 07/15/16 at 19:45 Chlorhexidine Gluconate (Chlorhexidine 2% Cloth) Taper DAILY@04 TOP Last administered on 07/17/16 03:11; Start 07/16/16 at 04:00; Stop 07/12/17 at 03:59 Chlorhexidine Gluconate (Chlorhexidine 2% Cloth) 3 pack UNSCH PRN TOP HYGIENIC CARE; Start 07/15/16 at 19:45 Acetaminophen (Ofirmev Inj) 1,000 mg Q6H PRN IV PAIN SCALE 1 TO 6; Start at 20:00; Stop 07/18/16 at 11:51; Status DC Ketorolac Tromethamine (Toradol Inj) 30 mg Q6H PRN IM PAIN SCALE 1 TO 7; Start 07/15/16 at 20:00; Stop 07/15/16 at 20:10; Status DC Ketorolac Tromethamine (Toradol Inj) 30 mg Q6H PRN IV PUSH PAIN 1-6 Last administered on 07/15/16 20:34; Start 07/15/16 at 20:15; Stop 07/18/16 at 11:51 ; Status DC Carvedilol (Coreg) 25 mg BID PO Last administered on 07/25/16 09:26; Start at 21:00 Fluconazole (Diflucan) 75 mg DAILY@17 PO Last administered on 07/16/16 17:03; Start 07/16/16 at 17:00; Stop 07/17/16 at 08:09; Status DC Isosorbide Dinitrate (Isordil) 5 mg Q8HR PO Last administered on 07/25/16 06:26 ; Start 07/15/16 at 22:00 Lactobacillus Acidophilus (Lactinex) 1 tab TID PO Last administered on 09:26; Start 07/16/16 at 09:00 Levofloxacin (Levaquin) 250 mg Q48H PO Last administered on 07/21/16 21:05; Start 07/15/16 at 22:00; Stop 07/23/16 at 16:37; Status DC Levothyroxine Sodium (Synthroid) 150 mcg DAILY@06 PO Last administered on 06:26; Start 07/16/16 at 06:00 Liothyronine Sodium (Cytomel) 5 mcg DAILY PO Last administered on 07/25/16 09: 26; Start 07/16/16 at 09:00 Non-Formulary Medication 325 mg DAILY PO ; Start 07/16/16 at 09:00; Status UNV Miscellaneous (Pill Splitter) 1 ea UNSCH PRN OTHER SEE LABEL COMMENTS; Start at 21:30 Famotidine (Pepcid Inj) 10 mg Q12HR IV PUSH Last administered on 07/17/16 07: 29; Start 07/16/16 at 09:00; Stop 07/18/16 at 10:59; Status DC Aspirin (Ecotrin Ec) 325 mg DAILY PO Last administered on 07/25/16 09:26; Start 07/16/16 at 09:00 Etomidate (Amidate Inj) 20 mg STK-MED ONCE .ROUTE ; Start 07/16/16 at 17:07; Stop 07/16/16 at 17:08; Status DC Famotidine (Pepcid Inj) 20 mg Q12HR IV PUSH Last administered on 07/25/16 09:27 ; Start 07/18/16 at 21:00 Hydromorphone HCl (Dilaudid Pf Inj) 0.5 mg ONCE ONCE IV PUSH ; Start 07/18/16 at 11:45; Stop 07/18/16 at 11:46; Status DC Hydromorphone HCl (Dilaudid Pf Inj) 0.5 mg Q4H PRN IV PUSH breakthrough pain / dresing lori Last administered on 07/24/16 04:49; Start 07/18/16 at 11:45 Acetaminophen/ Hydrocodone Bitart ([place] 5-325 Mg) 1 tab Q6H PRN PO pain 2-10 Last administered on 07/24/16 09:13; Start 07/18/16 at 11:45 Diphenhydramine HCl 50 mg 50 mg STK-MED ONCE .ROUTE ; Start 07/19/16 at 11:20; Stop 07/19/16 at 11:21; Status DC Levetriacetam/ Sodium Chloride (Keppra Inj/NS Inj) 105 ml @ 420 mls/hr Q12HR IV Last administered on 07/20/16 08:19; Start 07/19/16 at 13:00; Stop at 16:25; Status DC Haloperidol Lactate (Haldol Inj) 2 mg Q6H PRN IM aggittation Last administered on 07/19/16 18:02; Start 07/19/16 at 12:30 Lorazepam 1 mg 1 mg Q6H PRN IV PUSH seizures/agiatation Last administered on 23:10; Start 07/19/16 at 12:30 Valproate Sodium 500 mg/Sodium Chloride 105 ml @ 105 mls/hr Q8H IV Last administered on 07/25/16 09:26; Start 07/20/16 at 18:00 Cefepime HCl/ Sodium Chloride (Maxipime Inj/NS Inj) 100 ml @ 200 mls/hr Q12H IV Last administered on 07/25/16 01:31; Start 07/21/16 at 15:00 Dextrose (D50w (Vial) Inj) 25 ml UNSCH PRN IV PUSH HYPOGLYCEMIA-SEE COMMENTS; Start 07/23/16 at 11:00 Glucagon (Glucagon Inj) 1 mg UNSCH PRN OTHER HYPOGLYCEMIA-SEE COMMENTS; Start 07/23/16 at 11:00 Insulin Aspart (NovoLOG SUPPLEMENTAL SCALE) 1 ACHS SLIDING SCALE SQ Last administered on 07/25/16 06:27; Start 07/23/16 at 11:00 Potassium Chloride (KCl) 40 meq ONCE ONCE PO Last administered on 07/24/16 13: 00; Start 07/24/16 at 13:00; Stop 07/24/16 at 13:01; Status DC A/P Assessment and Plan A/P Respiratory Failure - improved Nebs scheduled, PRN May need CPAP at night Pulmonology Consult, need sleep study as OP Altered mental status Poss Metabolic toxic encephalopathy. Possible seizure. EEG with possible seizure - Hold all medications that could contribute. Hold anxiolytics and narcotic Head CT normal DC'ed keppra IV 500 . Consulted neurology, appreciate recommendations, seen by Dr Rodriguez following. Started depakote per neuro. MRI 07/20 reviewed no acute process. Psychosis. Consulted psychiatry. Peripheral vascular disease - Supportive care. Wound Care. - Pain control - F/U with vascular surgeon Diabetes - Levemir on hold due to hypoglycemia - Insulin sliding scale for now, until eating better Cardiomyopathy - Coreg - Isosorbide - Monitor BP Trend Hypothyroidism - TSH 9.150 - Synthroid 150mcg daily, check freeT4, may also be related to recent acute illness. Recheck in 4 weeks. Bilteral LE Cellulitis Left LE with gangrenous 2nd and 3rd feet. Continue dressing changes per Dr Valdes podiatry recommendation. Reconsulted vascular surgeon Dr Taylor ( known to patient) on 07/20. 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 Based on radiographic images post-intervention, she has adequate blood flow to heal wounds follow-up by Dr Taylor. Appreciate vasc surg recommendations. on Cefepime- till 07/26/16- ID has signed off. Hyponatremia - resolved- hypokalemia; replaced. DVT GI prophylaxis - Heparin and Pepcid Discharge Planning possible dc home within the next couple of days if stable. previously d/w the daughter and case management. Conrad Clancy MD Jul 25, 2016 09:51
[2016-07-25] MEDS: HYDROmorphone HCL PF 1 MG/ML VIAL IV PUSH PRN (17:20)
--- NOTE | 2016-07-25 17:34 | HHI.PR ---
Subjective Remarks 61 YO WF withDM,CMP,DVT,Leg ulcer Weaned to RA No CP,fever or chills MRI, EEG done Much more awake, c/o pain No new complaint Daughter at [facility], has lot of questions for neurologist Objective Vital Signs Vital Signs Date Time Temp Pulse Resp B/P Pulse Ox O2 Delivery O2 Flow Rate FiO2 07/25/16 16:00 98.8 72 20 169/75 94 07/25/16 12:00 98.5 75 20 161/67 95 07/25/16 10:20 94 21 07/25/16 09:01 Room Air 07/25/16 09:00 78 07/25/16 08:00 97.8 71 20 176/77 98 07/25/16 04:00 98.3 70 20 167/56 96 07/25/16 00:00 98.0 73 20 155/75 95 07/24/16 20:04 76 07/24/16 20:00 98.3 77 20 157/72 97 07/24/16 19:45 Room Air I/O 07/24/16 07/24/16 07/24/16 07/25/16 07/25/16 07/25/16 07:00 15:00 23:00 07:00 15:00 23:00 Intake Total 2215 ml 1228 ml 240 ml 120 ml 2263 ml Output Total 50 ml 900 ml 250 ml 600 ml 675 ml Balance 2165 ml 328 ml -10 ml -480 ml 1588 ml Intake Oral 0 ml 360 ml 240 ml 120 ml 480 ml IV Total 2215 ml 868 ml 1783 ml Output Urine Total 50 ml 900 ml 250 ml 600 ml 675 ml # Bowel Movements 1 0 0 1 Result Diagram: 07/25/16 0710 07/24/16 0631 Objective Remarks GENERAL: Obese WF, NAD SKIN: Warm and dry. HEAD: Normocephalic. EYES: No scleral icterus. No injection or drainage. NECK: Supple, trachea midline. No JVD or lymphadenopathy. CARDIOVASCULAR: Regular rate and rhythm without murmurs, gallops, or rubs. RESPIRATORY: Breath sounds equal bilaterally. No accessory muscle use. GASTROINTESTINAL: Abdomen soft, non-tender, nondistended. MUSCULOSKELETAL: No cyanosis, or edema. BACK: Nontender without obvious deformity. No CVA tenderness. A/P Assessment and Plan LIVE likly DM Leg ulcer DVT CMP Encephalopathy PLAN: Will need sleep study as out pt Monitor BS Cont Abx DW daughter at BS pain controll Available prn over weekend. Lito Harris MD Jul 25, 2016 17:34
[2016-07-25] MEDS: VALPROIC ACID 250 MG CAP PO SCH ×2 (18:33→21:08)
[2016-07-25] MEDS: ACETAMINOPHEN/HYDROcodone 325 MG/5 MG TAB PO PRN (21:08)
[2016-07-26] VITALS (7 sets, daily range): BP systolic 151–192; BP diastolic 65–92; PULSE 72–78; RESP 18–20; TEMP 97.5–98.9; O2SAT 94–97
[2016-07-26] MEDS: CEFEPIME INJ 2,000 MG in SODIUM CHLORIDE 0.9% INJ 100 ML IV SCH ×2 (02:30→14:55)
[2016-07-26] MEDS: CHLORHEXIDINE GLUCONATE 2 % 1 PACK (2 CLOTHS) TOP SCH (04:00)
[2016-07-26] MEDS: VALPROIC ACID 250 MG CAP PO SCH ×2 (05:26→14:52)
[2016-07-26] MEDS: ISOSORBIDE DINITRATE 5 MG TAB PO SCH ×3 (05:26→22:16)
[2016-07-26] MEDS: HEPARIN SODIUM - SQ 10,000 UNITS/ML VIAL SQ SCH ×3 (05:27→22:17)
[2016-07-26] MEDS: LEVOTHYROXINE SODIUM 150 MCG TAB PO SCH (05:27)
[2016-07-26] MEDS: SODIUM CHLOR 0.9% 1000 ML INJ 1,000 ML IV SCH ×2 (05:29→17:52)
[2016-07-26] MEDS: INSULIN ASPART SUPPLEMENTAL SCALE SQ SCH ×4 (06:07→22:18)
[2016-07-26] MEDS: LIOTHYRONINE SODIUM 5 MCG TAB PO SCH (08:41)
[2016-07-26] MEDS: CARVEDILOL 12.5 MG TAB PO SCH ×2 (08:41→22:16)
[2016-07-26] MEDS: LACTOBACILLUS ACIDOPHILUS TAB PO SCH ×3 (08:41→18:00)
[2016-07-26] MEDS: ASPIRIN EC 325 MG TABEC PO SCH (08:41)
[2016-07-26] MEDS: DOCUSATE SODIUM 100 MG CAP PO SCH ×2 (08:41→22:17)
[2016-07-26] MEDS: SODIUM CHLORIDE 0.9% FLUSH 5 ML FLUSH IV FLUSH SCH ×2 (08:42→22:19)
[2016-07-26] MEDS: FAMOTIDINE 20 MG/2 ML VIAL IV PUSH SCH ×2 (09:00→22:18)
--- NOTE | 2016-07-26 10:27 | HHI.PR ---
Subjective Remarks in no acute distress. afebrile. d/w the RN. Objective Vitals Vital Signs Date Time Temp Pulse Resp B/P Pulse Ox O2 Delivery O2 Flow Rate FiO2 07/26/16 08:00 98.6 76 20 192/92 97 07/26/16 04:00 97.5 72 18 167/76 96 07/26/16 00:00 98.5 77 18 156/68 96 07/25/16 20:30 Room Air 07/25/16 20:00 98.0 80 18 114/53 96 07/25/16 16:00 98.8 72 20 169/75 94 07/25/16 12:00 98.5 75 20 161/67 95 I/O 07/25/16 07/25/16 07/25/16 07/26/16 07/26/16 07/26/16 07:00 15:00 23:00 07:00 15:00 23:00 Intake Total 120 ml 2263 ml 240 ml 240 ml Output Total 600 ml 675 ml 0 ml 0 ml Balance -480 ml 1588 ml 240 ml 240 ml Intake Oral 120 ml 480 ml 240 ml 240 ml IV Total 1783 ml Output Urine Total 600 ml 675 ml 0 ml 0 ml # Voids 2 # Bowel Movements 0 1 0 1 Result Diagram: 07/25/16 0710 07/24/16 0631 Imaging Last Impressions Chest X-Ray 07/20/16 0000 Signed Impressions: Service Date/Time: Wednesday, July 20, 2016 12:38 - CONCLUSION: Mild left base consolidation developing. Alfredo Sneed MD Brain MRI 07/20/16 0000 Signed Impressions: Service Date/Time: Wednesday, July 20, 2016 09:15 - CONCLUSION: No acute intracranial abnormality. Moderately severe chronic white matter changes, nonspecific but most likely small vessel ischemia. Alfredo Sneed MD Head CT 07/19/16 0000 Signed Impressions: Service Date/Time: Tuesday, July 19, 2016 09:58 - CONCLUSION: No acute intracranial findings. João Otoole MD Foot X-Ray 07/16/16 0000 Signed Impressions: Service Date/Time: Saturday, July 16, 2016 17:34 - CONCLUSION: 1. Nonspecific soft tissue swelling. No acute bone destruction demonstrated. 2. Mild talonavicular and navicular/cuneiform degenerative changes. 3. Second through fifth hammertoe. 4. Moderate-sized heel spur. Alfredo Sneed MD Objective Remarks GENERAL: This is a well-nourished, well-developed patient, in no apparent distress. CARDIOVASCULAR: Regular rate and irregular rhythm without murmurs, gallops, or rubs. RESPIRATORY: Clear to auscultation. Breath sounds equal bilaterally. No wheezes , rales, or rhonchi. GASTROINTESTINAL: Abdomen soft, non-tender, nondistended. Normal, active bowel sounds MUSCULOSKELETAL: both legs covered with clean dressing. NEURO: Alert & Oriented x4 to person, place, time, situation. Moves all ext x4 Medications and IVs Current Medications Sodium Chloride (NS 1000 ml Inj) 1,000 ml @ 84 mls/hr [id number] IV Last administered on 07/26/16 05:29; Start 07/15/16 at 19:42 IV Flush (NS Flush) 2 ml UNSCH PRN IV FLUSH FLUSH AFTER USING IV ACCESS Last administered on 07/24/16 04:49; Start 07/15/16 at 19:45 IV Flush (NS Flush) 2 ml BID IV FLUSH Last administered on 07/26/16 08:42; Start 07/15/16 at 21:00 Fentanyl Citrate (fentaNYL INJ) 50 mcg Q3H PRN IV PUSH Pain scale 7-10 &/or sedation Last administered on 07/15/16 21:44; Start 07/15/16 at 19:45; Stop at 11:51; Status DC Famotidine (Pepcid Inj) 20 mg Q12HR IV PUSH Last administered on 07/15/16 20: 19; Start 07/15/16 at 21:00; Stop 07/15/16 at 21:24; Status DC Ondansetron HCl (Zofran Inj) 4 mg Q6H PRN IV NAUSEA OR VOMITING Last administered on 07/17/16 17:45; Start 07/15/16 at 19:45 Metoclopramide HCl (Reglan Inj) 5 mg Q6H PRN IV NAUSEA OR VOMITING; Start 07/15 at 19:45 Docusate Sodium (Colace) 100 mg BID PO Last administered on 07/26/16 08:41; Start 07/15/16 at 21:00 Albuterol/ Ipratropium (Duoneb Neb) 1 ampule Q2HR NEB PRN INH WHEEZING; Start 07/15/16 at 19:45 Heparin Sodium (Porcine) (Heparin Inj) 5,000 units Q8HR SQ Last administered on 07/26/16 05:27; Start 07/15/16 at 22:00 Miscellaneous Information 1 Q361D XX Last administered on 07/15/16 19:45; Start 07/15/16 at 19:45 Chlorhexidine Gluconate (Chlorhexidine 2% Cloth) Taper DAILY@04 TOP Last administered on 07/17/16 03:11; Start 07/16/16 at 04:00; Stop 07/12/17 at 03:59 Chlorhexidine Gluconate (Chlorhexidine 2% Cloth) 3 pack UNSCH PRN TOP HYGIENIC CARE; Start 07/15/16 at 19:45 Acetaminophen (Ofirmev Inj) 1,000 mg Q6H PRN IV PAIN SCALE 1 TO 6; Start at 20:00; Stop 07/18/16 at 11:51; Status DC Ketorolac Tromethamine (Toradol Inj) 30 mg Q6H PRN IM PAIN SCALE 1 TO 7; Start 07/15/16 at 20:00; Stop 07/15/16 at 20:10; Status DC Ketorolac Tromethamine (Toradol Inj) 30 mg Q6H PRN IV PUSH PAIN 1-6 Last administered on 07/15/16 20:34; Start 07/15/16 at 20:15; Stop 07/18/16 at 11:51 ; Status DC Carvedilol (Coreg) 25 mg BID PO Last administered on 07/26/16 08:41; Start at 21:00 Fluconazole (Diflucan) 75 mg DAILY@17 PO Last administered on 07/16/16 17:03; Start 07/16/16 at 17:00; Stop 07/17/16 at 08:09; Status DC Isosorbide Dinitrate (Isordil) 5 mg Q8HR PO Last administered on 07/26/16 05:26 ; Start 07/15/16 at 22:00 Lactobacillus Acidophilus (Lactinex) 1 tab TID PO Last administered on 08:41; Start 07/16/16 at 09:00 Levofloxacin (Levaquin) 250 mg Q48H PO Last administered on 07/21/16 21:05; Start 07/15/16 at 22:00; Stop 07/23/16 at 16:37; Status DC Levothyroxine Sodium (Synthroid) 150 mcg DAILY@06 PO Last administered on 05:27; Start 07/16/16 at 06:00 Liothyronine Sodium (Cytomel) 5 mcg DAILY PO Last administered on 07/26/16 08: 41; Start 07/16/16 at 09:00 Non-Formulary Medication 325 mg DAILY PO ; Start 07/16/16 at 09:00; Status UNV Miscellaneous (Pill Splitter) 1 ea UNSCH PRN OTHER SEE LABEL COMMENTS; Start at 21:30 Famotidine (Pepcid Inj) 10 mg Q12HR IV PUSH Last administered on 07/17/16 07: 29; Start 07/16/16 at 09:00; Stop 07/18/16 at 10:59; Status DC Aspirin (Ecotrin Ec) 325 mg DAILY PO Last administered on 07/26/16 08:41; Start 07/16/16 at 09:00 Etomidate (Amidate Inj) 20 mg STK-MED ONCE .ROUTE ; Start 07/16/16 at 17:07; Stop 07/16/16 at 17:08; Status DC Famotidine (Pepcid Inj) 20 mg Q12HR IV PUSH Last administered on 07/25/16 21:11 ; Start 07/18/16 at 21:00 Hydromorphone HCl (Dilaudid Pf Inj) 0.5 mg ONCE ONCE IV PUSH ; Start 07/18/16 at 11:45; Stop 07/18/16 at 11:46; Status DC Hydromorphone HCl (Dilaudid Pf Inj) 0.5 mg Q4H PRN IV PUSH breakthrough pain / dresing lori Last administered on 07/25/16 17:20; Start 07/18/16 at 11:45 Acetaminophen/ Hydrocodone Bitart ([place] 5-325 Mg) 1 tab Q6H PRN PO pain 2-10 Last administered on 07/25/16 21:08; Start 07/18/16 at 11:45 Diphenhydramine HCl 50 mg 50 mg STK-MED ONCE .ROUTE ; Start 07/19/16 at 11:20; Stop 07/19/16 at 11:21; Status DC Levetriacetam/ Sodium Chloride (Keppra Inj/NS Inj) 105 ml @ 420 mls/hr Q12HR IV Last administered on 07/20/16 08:19; Start 07/19/16 at 13:00; Stop at 16:25; Status DC Haloperidol Lactate (Haldol Inj) 2 mg Q6H PRN IM aggittation Last administered on 07/19/16 18:02; Start 07/19/16 at 12:30 Lorazepam 1 mg 1 mg Q6H PRN IV PUSH seizures/agiatation Last administered on 23:10; Start 07/19/16 at 12:30 Valproate Sodium 500 mg/Sodium Chloride 105 ml @ 105 mls/hr Q8H IV Last administered on 07/25/16 09:26; Start 07/20/16 at 18:00; Stop 07/25/16 at 09:54; Status DC Cefepime HCl/ Sodium Chloride (Maxipime Inj/NS Inj) 100 ml @ 200 mls/hr Q12H IV Last administered on 07/26/16 02:30; Start 07/21/16 at 15:00 Dextrose (D50w (Vial) Inj) 25 ml UNSCH PRN IV PUSH HYPOGLYCEMIA-SEE COMMENTS; Start 07/23/16 at 11:00 Glucagon (Glucagon Inj) 1 mg UNSCH PRN OTHER HYPOGLYCEMIA-SEE COMMENTS; Start 07/23/16 at 11:00 Insulin Aspart (NovoLOG SUPPLEMENTAL SCALE) 1 ACHS SLIDING SCALE SQ Last administered on 07/26/16 06:07; Start 07/23/16 at 11:00 Potassium Chloride (KCl) 40 meq ONCE ONCE PO Last administered on 07/24/16 13: 00; Start 07/24/16 at 13:00; Stop 07/24/16 at 13:01; Status DC Valproic Acid (Depakene) 500 mg Q8HR PO Last administered on 07/26/16 05:26; Start 07/25/16 at 15:00 A/P Assessment and Plan A/P Respiratory Failure - resolved Nebs scheduled, PRN May need CPAP at night Pulmonology Consult, need sleep study as OP Altered mental status Poss Metabolic toxic encephalopathy. Possible seizure. EEG with possible seizure - Hold all medications that could contribute. Hold anxiolytics and narcotic MRI brain with no acute abnormality. dc'ed Keppra and started on Depakote per neurology. Psychosis. Consulted psychiatry. Peripheral vascular disease - Supportive care. Wound Care. - Pain control - F/U with vascular surgeon Diabetes - Levemir on hold due to hypoglycemia - Insulin sliding scale for now, until eating better Cardiomyopathy - Coreg - Isosorbide - Monitor BP Trend Hypothyroidism - TSH 9.150 - Synthroid 150mcg daily, check freeT4, may also be related to recent acute illness. Recheck in 4 weeks. Bilteral LE Cellulitis Left LE with gangrenous 2nd and 3rd feet. Continue dressing changes per Dr Valdes podiatry recommendation. Reconsulted vascular surgeon Dr Taylor ( known to patient) on 07/20. Seen by Dr Taylor [facility] surgery; Mild PAD and chronic wounds, s/p L SFA INDUSTRIAL INSULATOR and recanalization with good runoff. Based on radiographic images post-intervention, she has adequate blood flow to heal wounds follow-up by Dr Taylor. on Cefepime; will finish the course of treatment today- ID has signed off. Hyponatremia - resolved- hypokalemia; replaced. DVT GI prophylaxis - Heparin and Pepcid Discharge Planning possible dc home within the next couple of days if stable. previously d/w the daughter and case management. Conrad Clancy MD Jul 26, 2016 10:27
[2016-07-26 13:20] LABS: POTASSIUM 3.2 MEQ/L (3.5-5.1)
[2016-07-26] MEDS ORDERED: POTASSIUM CHLORIDE 10 MEQ CONTROLLED RELEASE TAB PO ONE ×2 (16:30→20:00)
[2016-07-27] VITALS (8 sets, daily range): BP systolic 129–159; BP diastolic 60–74; PULSE 70–76; RESP 16–24; TEMP 97.9–99.3; O2SAT 94–97
[2016-07-27] MEDS: CEFEPIME INJ 2,000 MG in SODIUM CHLORIDE 0.9% INJ 100 ML IV SCH (02:43)
[2016-07-27] MEDS: CHLORHEXIDINE GLUCONATE 2 % 1 PACK (2 CLOTHS) TOP SCH (03:45)
[2016-07-27] MEDS: SODIUM CHLOR 0.9% 1000 ML INJ 1,000 ML IV SCH ×2 (05:14→17:42)
[2016-07-27] MEDS: LEVOTHYROXINE SODIUM 150 MCG TAB PO SCH (05:14)
[2016-07-27] MEDS: ISOSORBIDE DINITRATE 5 MG TAB PO SCH ×3 (05:14→21:19)
[2016-07-27] MEDS: HEPARIN SODIUM - SQ 10,000 UNITS/ML VIAL SQ SCH ×3 (05:14→21:18)
[2016-07-27] MEDS: INSULIN ASPART SUPPLEMENTAL SCALE SQ SCH ×4 (05:55→21:20)
[2016-07-27 09:28] LABS: BICARBONATE 27.2 MEQ/L (21.0-32.0); MAGNESIUM 2.1 MG/DL (1.5-2.5); POTASSIUM 3.7 MEQ/L (3.5-5.1)
[2016-07-27] MEDS: VALPROIC ACID 250 MG CAP PO SCH ×2 (09:31→21:19)
[2016-07-27] MEDS: LIOTHYRONINE SODIUM 5 MCG TAB PO SCH (09:31)
[2016-07-27] MEDS: DOCUSATE SODIUM 100 MG CAP PO SCH ×2 (09:31→21:19)
[2016-07-27] MEDS: LACTOBACILLUS ACIDOPHILUS TAB PO SCH ×3 (09:31→18:11)
[2016-07-27] MEDS: CARVEDILOL 12.5 MG TAB PO SCH ×2 (09:31→21:19)
[2016-07-27] MEDS: ASPIRIN EC 325 MG TABEC PO SCH (09:31)
[2016-07-27] MEDS: FAMOTIDINE 20 MG/2 ML VIAL IV PUSH SCH ×2 (09:31→21:19)
[2016-07-27] MEDS: HYDROmorphone HCL PF 1 MG/ML VIAL IV PUSH PRN (09:32)
[2016-07-27] MEDS: SODIUM CHLORIDE 0.9% FLUSH 5 ML FLUSH IV FLUSH SCH ×2 (09:56→21:20)
--- NOTE | 2016-07-27 10:39 | HHI.PR ---
Subjective Remarks more alert today. complaining of pain to both legs. no fever. noted that had a long-run of V-tach last evening. d/w the RN. Objective Vitals Vital Signs Date Time Temp Pulse Resp B/P Pulse Ox O2 Delivery O2 Flow Rate FiO2 07/27/16 08:00 98.0 70 16 159/68 97 07/27/16 04:00 99.3 73 19 158/74 94 07/27/16 00:00 98.8 71 19 129/60 96 07/26/16 20:45 Room Air 07/26/16 20:25 77 07/26/16 20:00 97.9 78 18 151/65 97 07/26/16 16:00 98.5 73 20 181/79 95 07/26/16 12:00 98.9 76 20 173/81 94 I/O 07/26/16 07/26/16 07/26/16 07/27/16 07/27/16 07/27/16 07:00 15:00 23:00 07:00 15:00 23:00 Intake Total 240 ml 240 ml 992 ml 792 ml Output Total 0 ml Balance 240 ml 240 ml 992 ml 792 ml Intake Oral 240 ml 240 ml 320 ml 120 ml IV Total 672 ml 672 ml Output Urine Total 0 ml # Voids 2 4 1 3 # Bowel Movements 1 1 1 0 Result Diagram: 07/25/16 0710 07/27/16 0821 Imaging Last Impressions Chest X-Ray 07/20/16 0000 Signed Impressions: Service Date/Time: Wednesday, July 20, 2016 12:38 - CONCLUSION: Mild left base consolidation developing. Alfredo Sneed MD Brain MRI 07/20/16 0000 Signed Impressions: Service Date/Time: Wednesday, July 20, 2016 09:15 - CONCLUSION: No acute intracranial abnormality. Moderately severe chronic white matter changes, nonspecific but most likely small vessel ischemia. Alfredo Sneed MD Head CT 07/19/16 0000 Signed Impressions: Service Date/Time: Tuesday, July 19, 2016 09:58 - CONCLUSION: No acute intracranial findings. João Otoole MD Foot X-Ray 07/16/16 0000 Signed Impressions: Service Date/Time: Saturday, July 16, 2016 17:34 - CONCLUSION: 1. Nonspecific soft tissue swelling. No acute bone destruction demonstrated. 2. Mild talonavicular and navicular/cuneiform degenerative changes. 3. Second through fifth hammertoe. 4. Moderate-sized heel spur. Alfredo Sneed MD Objective Remarks GENERAL: This is a well-nourished, well-developed patient, in no apparent distress. CARDIOVASCULAR: Regular rate and irregular rhythm without murmurs, gallops, or rubs. RESPIRATORY: Clear to auscultation. Breath sounds equal bilaterally. No wheezes , rales, or rhonchi. GASTROINTESTINAL: Abdomen soft, non-tender, nondistended. Normal, active bowel sounds MUSCULOSKELETAL: both legs covered with clean dressing. NEURO: Alert & Oriented x4 to person, place, time, situation. Moves all ext x4 Medications and IVs Current Medications Sodium Chloride (NS 1000 ml Inj) 1,000 ml @ 84 mls/hr [id number] IV Last administered on 07/27/16 05:14; Start 07/15/16 at 19:42 IV Flush (NS Flush) 2 ml UNSCH PRN IV FLUSH FLUSH AFTER USING IV ACCESS Last administered on 07/24/16 04:49; Start 07/15/16 at 19:45 IV Flush (NS Flush) 2 ml BID IV FLUSH Last administered on 07/27/16 09:56; Start 07/15/16 at 21:00 Fentanyl Citrate (fentaNYL INJ) 50 mcg Q3H PRN IV PUSH Pain scale 7-10 &/or sedation Last administered on 07/15/16 21:44; Start 07/15/16 at 19:45; Stop at 11:51; Status DC Famotidine (Pepcid Inj) 20 mg Q12HR IV PUSH Last administered on 07/15/16 20: 19; Start 07/15/16 at 21:00; Stop 07/15/16 at 21:24; Status DC Ondansetron HCl (Zofran Inj) 4 mg Q6H PRN IV NAUSEA OR VOMITING Last administered on 07/17/16 17:45; Start 07/15/16 at 19:45 Metoclopramide HCl (Reglan Inj) 5 mg Q6H PRN IV NAUSEA OR VOMITING; Start 07/15 at 19:45 Docusate Sodium (Colace) 100 mg BID PO Last administered on 07/27/16 09:31; Start 07/15/16 at 21:00 Albuterol/ Ipratropium (Duoneb Neb) 1 ampule Q2HR NEB PRN INH WHEEZING; Start 07/15/16 at 19:45 Heparin Sodium (Porcine) (Heparin Inj) 5,000 units Q8HR SQ Last administered on 07/27/16 05:14; Start 07/15/16 at 22:00 Miscellaneous Information 1 Q361D XX Last administered on 07/15/16 19:45; Start 07/15/16 at 19:45 Chlorhexidine Gluconate (Chlorhexidine 2% Cloth) Taper DAILY@04 TOP Last administered on 07/17/16 03:11; Start 07/16/16 at 04:00; Stop 07/12/17 at 03:59 Chlorhexidine Gluconate (Chlorhexidine 2% Cloth) 3 pack UNSCH PRN TOP HYGIENIC CARE; Start 07/15/16 at 19:45 Acetaminophen (Ofirmev Inj) 1,000 mg Q6H PRN IV PAIN SCALE 1 TO 6; Start at 20:00; Stop 07/18/16 at 11:51; Status DC Ketorolac Tromethamine (Toradol Inj) 30 mg Q6H PRN IM PAIN SCALE 1 TO 7; Start 07/15/16 at 20:00; Stop 07/15/16 at 20:10; Status DC Ketorolac Tromethamine (Toradol Inj) 30 mg Q6H PRN IV PUSH PAIN 1-6 Last administered on 07/15/16 20:34; Start 07/15/16 at 20:15; Stop 07/18/16 at 11:51 ; Status DC Carvedilol (Coreg) 25 mg BID PO Last administered on 07/27/16 09:31; Start at 21:00 Fluconazole (Diflucan) 75 mg DAILY@17 PO Last administered on 07/16/16 17:03; Start 07/16/16 at 17:00; Stop 07/17/16 at 08:09; Status DC Isosorbide Dinitrate (Isordil) 5 mg Q8HR PO Last administered on 07/27/16 05:14 ; Start 07/15/16 at 22:00 Lactobacillus Acidophilus (Lactinex) 1 tab TID PO Last administered on 09:31; Start 07/16/16 at 09:00 Levofloxacin (Levaquin) 250 mg Q48H PO Last administered on 07/21/16 21:05; Start 07/15/16 at 22:00; Stop 07/23/16 at 16:37; Status DC Levothyroxine Sodium (Synthroid) 150 mcg DAILY@06 PO Last administered on 05:14; Start 07/16/16 at 06:00 Liothyronine Sodium (Cytomel) 5 mcg DAILY PO Last administered on 07/27/16 09: 31; Start 07/16/16 at 09:00 Non-Formulary Medication 325 mg DAILY PO ; Start 07/16/16 at 09:00; Status UNV Miscellaneous (Pill Splitter) 1 ea UNSCH PRN OTHER SEE LABEL COMMENTS; Start at 21:30 Famotidine (Pepcid Inj) 10 mg Q12HR IV PUSH Last administered on 07/17/16 07: 29; Start 07/16/16 at 09:00; Stop 07/18/16 at 10:59; Status DC Aspirin (Ecotrin Ec) 325 mg DAILY PO Last administered on 07/27/16 09:31; Start 07/16/16 at 09:00 Etomidate (Amidate Inj) 20 mg STK-MED ONCE .ROUTE ; Start 07/16/16 at 17:07; Stop 07/16/16 at 17:08; Status DC Famotidine (Pepcid Inj) 20 mg Q12HR IV PUSH Last administered on 07/27/16 09:31 ; Start 07/18/16 at 21:00 Hydromorphone HCl (Dilaudid Pf Inj) 0.5 mg ONCE ONCE IV PUSH ; Start 07/18/16 at 11:45; Stop 07/18/16 at 11:46; Status DC Hydromorphone HCl (Dilaudid Pf Inj) 0.5 mg Q4H PRN IV PUSH breakthrough pain / dresing lori Last administered on 07/27/16 09:32; Start 07/18/16 at 11:45 Acetaminophen/ Hydrocodone Bitart ([place] 5-325 Mg) 1 tab Q6H PRN PO pain 2-10 Last administered on 07/25/16 21:08; Start 07/18/16 at 11:45 Diphenhydramine HCl 50 mg 50 mg STK-MED ONCE .ROUTE ; Start 07/19/16 at 11:20; Stop 07/19/16 at 11:21; Status DC Levetriacetam/ Sodium Chloride (Keppra Inj/NS Inj) 105 ml @ 420 mls/hr Q12HR IV Last administered on 07/20/16 08:19; Start 07/19/16 at 13:00; Stop at 16:25; Status DC Haloperidol Lactate (Haldol Inj) 2 mg Q6H PRN IM aggittation Last administered on 07/19/16 18:02; Start 07/19/16 at 12:30 Lorazepam 1 mg 1 mg Q6H PRN IV PUSH seizures/agiatation Last administered on 23:10; Start 07/19/16 at 12:30 Valproate Sodium 500 mg/Sodium Chloride 105 ml @ 105 mls/hr Q8H IV Last administered on 07/25/16 09:26; Start 07/20/16 at 18:00; Stop 07/25/16 at 09:54; Status DC Cefepime HCl/ Sodium Chloride (Maxipime Inj/NS Inj) 100 ml @ 200 mls/hr Q12H IV Last administered on 07/27/16 02:43; Start 07/21/16 at 15:00; Stop 07/27/16 at 09:00; Status DC Dextrose (D50w (Vial) Inj) 25 ml UNSCH PRN IV PUSH HYPOGLYCEMIA-SEE COMMENTS; Start 07/23/16 at 11:00 Glucagon (Glucagon Inj) 1 mg UNSCH PRN OTHER HYPOGLYCEMIA-SEE COMMENTS; Start 07/23/16 at 11:00 Insulin Aspart (NovoLOG SUPPLEMENTAL SCALE) 1 ACHS SLIDING SCALE SQ Last administered on 07/27/16 05:55; Start 07/23/16 at 11:00 Potassium Chloride (KCl) 40 meq ONCE ONCE PO Last administered on 07/24/16 13: 00; Start 07/24/16 at 13:00; Stop 07/24/16 at 13:01; Status DC Valproic Acid (Depakene) 500 mg Q8HR PO Last administered on 07/26/16 14:52; Start 07/25/16 at 15:00; Stop 07/26/16 at 17:39; Status DC Potassium Chloride (KCl) 30 meq ONCE ONCE PO Last administered on 07/26/16 19: 30; Start 07/26/16 at 16:30; Stop 07/26/16 at 16:36; Status DC Potassium Chloride (KCl) 30 meq ONCE ONCE PO Last administered on 07/26/16 22: 16; Start 07/26/16 at 20:00; Stop 07/26/16 at 20:01; Status DC Valproic Acid (Depakene) 250 mg Q12HR PO Last administered on 07/27/16 09:31; Start 07/27/16 at 09:00 A/P Assessment and Plan A/P Respiratory Failure - resolved Nebs scheduled, PRN May need CPAP at night Pulmonology Consulted, need sleep study as OP Altered mental status Poss Metabolic toxic encephalopathy. Possible seizure. EEG with possible seizure - Hold all medications that could contribute. Hold anxiolytics and narcotic MRI brain with no acute abnormality. dc'ed Keppra and started on Depakote per neurology; decreased the dose due to worsening confusion. Psychosis. Consulted psychiatry. Peripheral vascular disease - Supportive care. Wound Care. - Pain control - F/U with vascular surgeon Diabetes - Levemir on hold due to hypoglycemia - Insulin sliding scale for now, until eating better Cardiomyopathy - Coreg - Isosorbide - Monitor BP Trend Hypothyroidism - TSH 9.150 - Synthroid 150mcg daily, check freeT4, may also be related to recent acute illness. Recheck in 4 weeks. Bilteral LE Cellulitis Left LE with gangrenous 2nd and 3rd feet. Continue dressing changes per Dr Valdes podiatry recommendation. Reconsulted vascular surgeon Dr Taylor ( known to patient) on 07/20. Seen by Dr Taylor vas surgery; Mild PAD and chronic wounds, s/p L SFA RUG SHAMPOOER and recanalization with good runoff. Based on radiographic images post-intervention, she has adequate blood flow to heal wounds follow-up by Dr Taylor. finished the course of Cefepime- ID has signed off. V-tach with EF 35%- continue BB- will consult cardiology. Hyponatremia - resolved- hypokalemia; replaced. DVT GI prophylaxis - Heparin and Pepcid Discharge Planning dc planning early this week. Conrad Clancy MD Jul 27, 2016 10:39
[2016-07-27] MEDS ORDERED: HYDROmorphone HCL PF 1 MG/ML VIAL IV PUSH ONE (10:45)
[2016-07-27] MEDS: LORazepam 2 MG/ML VIAL IV PUSH PRN (13:23)
--- NOTE | 2016-07-27 14:38 | MB ---
cc: VEDA BURRIS M.D. DATE OF CONSULTATION: 07/27/2016. REASON FOR CONSULTATION/ CHIEF COMPLAINT: Asymptomatic nonsustained ventricular tachycardia on the monitor. HISTORY OF PRESENT ILLNESS: The patient is 61-year-old white female readmitted 07/15/2016 for hypoxia and reduced mental status. The etiology of that event is not clear from the chart but it does not appear to be neurologic. Congestive failure was not excluded in the setting of her cardiomyopathy but the chest x-ray was negative for congestive failure. That problem is resolved and now I believe felt to be possibly related to her pain regimen. As I see year presently she has just received pain medication and is somewhat euphoric but able to answer questions. Her is present for the interview and also provides additional information. The patient has a known history of a dilated cardiomyopathy with an ejection fraction reported to be 30%, although it was 20% on the last echocardiogram in the office of 01/08/2015. She has always refused evaluation for her cardiomyopathy and has refused ICD therapy. I asked her again about those issues and she became tearful and crying but continues to decline that approach. There is a history of congestive failure, hypothyroidism and diabetes. She has primarily been admitted recently because of her peripheral vascular disease and recurrent cellulitis with dry gangrene of the toes involving the left lower extremity. As I see her now she is completely asymptomatic from a cardiac perspective. She denies any chest discomfort, shortness of breath, palpitations, syncope or pre-syncope. Her confirms that she has not complained of any of these symptoms. She is unaware that she had a moderately long run of ventricular tachycardia on the telemetry strips from yesterday. PHYSICAL EXAMINATION: GENERAL: On physical exam on general inspection she is an alert pleasant lady lying in bed in no distress. VITAL SIGNS: Her vital signs reveal a blood pressure of 145/67, pulse 76, respirations of 16. The patient is afebrile. Saturations 97% on room air. HEAD, EYES, EARS, NOSE, THROAT/NECK: Unremarkable for the patient's age. LUNGS: . ABDOMEN: tenderness or organomegaly. The patient is moderately obese. GENITALIA/RECTAL: Deferred. EXTREMITIES: Reduced pulses in both feet with gangrene involving the toes on the left. The left lower extremity is wrapped and I did not wrap it to evaluate her cellulitis below the left knee. NEUROLOGIC: Grossly intact without focal findings. LABORATORY DATA: Today the basic metabolic panel and magnesium are normal. Yesterday the potassium however was low at 3.2. Fasting blood sugar this morning was 198. CBC shows a hyperchromic microcytic anemia with hematocrit of 25.8% that is stable. IMAGING STUDIES: Most recent chest x-ray is clear. EKGS: There is been no recent EKG. The most recent EKG is from 07/16/2016 and it is essentially unremarkable except for a possible septal infarct. There has been no recent echocardiogram. ASSESSMENT AND PLAN: Essentially this patient has a known dilated cardiomyopathy. She is not on an JOYCE inhibitor or ARB but is on adequate dose of metoprolol. Nevertheless, her blood pressure is excessive and I am going to add the second agent to help with remodelling. We will check an echocardiogram. At this juncture, she does not want consideration of an ICD but until her infection is cleared and stabilized, she probably cannot have an implant anyway. I did very candidly discuss with her and the the 5% per year risk of sudden at which point she became tearful but still declines the device. I would continue to monitor. There is a possibility that the tachycardia from yesterday was secondary to her electrolyte imbalance so please maintain potassium and magnesium in the normal range. Her primary rougher machine operator, Dr. Castellanos, should be available tomorrow. I will be available today for any changes in condition. MD MARIOLA Hopkins/HAMILTON /2:09 PM /2:28 PM
[2016-07-27] MEDS: VALSARTAN 80 MG TAB PO SCH (21:19)
[2016-07-28] VITALS (8 sets, daily range): BP systolic 154–184; BP diastolic 70–81; PULSE 63–77; RESP 16–20; TEMP 97.9–98.7; O2SAT 94–99
[2016-07-28] MEDS: CHLORHEXIDINE GLUCONATE 2 % 1 PACK (2 CLOTHS) TOP SCH (03:06)
[2016-07-28] MEDS: SODIUM CHLOR 0.9% 1000 ML INJ 1,000 ML IV SCH ×2 (05:37→16:19)
[2016-07-28] MEDS: LEVOTHYROXINE SODIUM 150 MCG TAB PO SCH (06:09)
[2016-07-28] MEDS: ISOSORBIDE DINITRATE 5 MG TAB PO SCH ×3 (06:09→21:57)
[2016-07-28] MEDS: LORazepam 2 MG/ML VIAL IV PUSH PRN (06:09)
[2016-07-28] MEDS: HEPARIN SODIUM - SQ 10,000 UNITS/ML VIAL SQ SCH ×3 (06:09→21:59)
[2016-07-28] MEDS: INSULIN ASPART SUPPLEMENTAL SCALE SQ SCH ×4 (06:10→22:00)
[2016-07-28 07:38] LABS: BICARBONATE 29.6 MEQ/L (21.0-32.0); POTASSIUM 3.9 MEQ/L (3.5-5.1)
[2016-07-28] MEDS: LACTOBACILLUS ACIDOPHILUS TAB PO SCH ×3 (08:20→17:40)
[2016-07-28] MEDS: LIOTHYRONINE SODIUM 5 MCG TAB PO SCH (08:20)
[2016-07-28] MEDS: CARVEDILOL 12.5 MG TAB PO SCH ×2 (08:20→21:57)
[2016-07-28] MEDS: VALPROIC ACID 250 MG CAP PO SCH ×2 (08:20→21:57)
[2016-07-28] MEDS: ASPIRIN EC 325 MG TABEC PO SCH (08:21)
[2016-07-28] MEDS: DOCUSATE SODIUM 100 MG CAP PO SCH ×2 (08:21→21:58)
[2016-07-28] MEDS: FAMOTIDINE 20 MG/2 ML VIAL IV PUSH SCH ×2 (08:22→21:59)
[2016-07-28] MEDS: SODIUM CHLORIDE 0.9% FLUSH 5 ML FLUSH IV FLUSH SCH ×2 (08:22→21:56)
--- NOTE | 2016-07-28 10:16 | EKG ---
Date Performed: 07/27/2016 Time Performed: 18:53:12 PTAGE: 61 years EKG: Sinus rhythm SEPTAL MYOCARDIAL INFARCTION , OF INDETERMINATE AGE MODERATE T-WAVE ABNORMALITY, CONSIDER LATERAL IS CHEMIA ABNORMAL ECG Compared to prior tracing no significant change PREVIOUS TRACING : 07.40 DOCTOR: Dru Us Interpretating Date/Time 07/28/2016 10:14:17
--- NOTE | 2016-07-28 11:13 | PD.CARD.PN ---
Subjective Subjective Remarks Lethargic, able to be woken but not a great historian, no chest pain/SOB Objective Medications Current Medications Medications (Trade) Dose Ordered Sig/Virgilio Route Start Time Stop Time Status Last Admin (NS 1000 ml Inj) 1,000 ml @ 84 mls/hr [id number] IV 07/15/16 19:42 07/28/16 05:37 (NS Flush) 2 ml UNSCH PRN IV FLUSH 07/15/16 19:45 07/24/16 04:49 (NS Flush) 2 ml BID IV FLUSH 07/15/16 21:00 07/28/16 08:22 (Zofran Inj) 4 mg Q6H PRN IV 07/15/16 19:45 07/17/16 17:45 (Reglan Inj) 5 mg Q6H PRN IV 07/15/16 19:45 (Colace) 100 mg BID PO 07/15/16 21:00 07/28/16 08:21 (Heparin Inj) 5,000 units Q8HR SQ 07/15/16 22:00 07/28/16 06:09 Miscellaneous Information 1 Q361D XX 07/15/16 19:45 07/15/16 19:45 (Chlorhexidine 2% Cloth) Taper DAILY@04 TOP 07/16/16 04:00 07/12/17 03:59 07/17/16 03:11 (Chlorhexidine 2% Cloth) 3 pack UNSCH PRN TOP 07/15/16 19:45 (Coreg) 25 mg BID PO 07/15/16 21:00 07/28/16 08:20 (Isordil) 5 mg Q8HR PO 07/15/16 22:00 07/28/16 06:09 (Lactinex) 1 tab TID PO 07/16/16 09:00 07/28/16 08:20 (Synthroid) 150 mcg DAILY@06 PO 07/16/16 06:00 07/28/16 06:09 (Cytomel) 5 mcg DAILY PO 07/16/16 09:00 07/28/16 08:20 (Pill Splitter) 1 ea UNSCH PRN OTHER 07/15/16 21:30 (Ecotrin Ec) 325 mg DAILY PO 07/16/16 09:00 07/28/16 08:21 (Pepcid Inj) 20 mg Q12HR IV PUSH 07/18/16 21:00 07/28/16 08:22 (Dilaudid Pf Inj) 0.5 mg Q4H PRN IV PUSH 07/18/16 11:45 07/27/16 09:32 (Page 5-325 Mg) 1 tab Q6H PRN PO 07/18/16 11:45 07/25/16 21:08 (Haldol Inj) 2 mg Q6H PRN IM 07/19/16 12:30 07/19/16 18:02 (Ativan Inj) 1 mg Q6H PRN IV PUSH 07/19/16 12:30 07/28/16 06:09 (D50w (Vial) Inj) 25 ml UNSCH PRN IV PUSH 07/23/16 11:00 (Glucagon Inj) 1 mg UNSCH PRN OTHER 07/23/16 11:00 (Depakene) 250 mg Q12HR PO 07/27/16 09:00 07/28/16 08:20 (Diovan) 80 mg HS PO 07/27/16 21:00 07/27/16 21:19 Vital Signs / I&O Vital Signs Date Time Temp Pulse Resp B/P Pulse Ox O2 Delivery O2 Flow Rate FiO2 07/28/16 08:00 Room Air 07/28/16 08:00 98.3 70 20 168/79 97 07/28/16 08:00 74 07/28/16 06:45 72 176/81 07/28/16 04:00 98.7 72 18 184/81 94 07/28/16 00:00 98.4 69 17 170/73 94 07/27/16 20:30 Room Air 07/27/16 20:23 76 07/27/16 20:00 98.2 75 18 149/71 94 07/27/16 16:00 98.6 74 24 154/69 96 07/27/16 13:43 71 07/27/16 12:00 97.9 76 16 145/67 96 I/O 07/27/16 07/27/16 07/27/16 07/28/16 07/28/16 07/28/16 07:00 15:00 23:00 07:00 15:00 23:00 Intake Total 792 ml 480 ml 320 ml 120 ml Balance 792 ml 480 ml 320 ml 120 ml Intake Oral 120 ml 480 ml 320 ml 120 ml IV Total 672 ml # Voids 3 2 1 2 # Bowel Movements 0 0 Physical Exam GENERAL: Lethargic SKIN: Warm and dry. HEAD: Atraumatic. Normocephalic. EYES: Pupils equal and round. No scleral icterus. No injection or drainage. ENT: No nasal bleeding or discharge. Mucous membranes pink and moist. NECK: Trachea midline. No JVD. CARDIOVASCULAR: Regular rate and rhythm. RESPIRATORY: No accessory muscle use. Decreased breath sounds bilaterally GASTROINTESTINAL: Abdomen soft, non-tender, nondistended. Hepatic and splenic margins not palpable. MUSCULOSKELETAL: Bilaterally cellulitis with gangrene NEUROLOGICAL: Lethargic, no obvious cranial nerve deficits. Motor grossly within normal limits. Five out of 5 muscle strength in the arms and legs. Normal speech. PSYCHIATRIC: Unable to obtain Laboratory Laboratory Tests Test 07/28/16 06:46 Sodium Level 143 MEQ/L Potassium Level 3.9 MEQ/L Chloride Level 106 MEQ/L Carbon Dioxide Level 29.6 MEQ/L Anion Gap 7 MEQ/L Blood Urea Nitrogen 9 MG/DL Creatinine 0.75 MG/DL Estimat Glomerular Filtration 78 ML/MIN Rate Random Glucose 211 MG/DL Calcium Level 7.7 MG/DL Magnesium Level 2.0 MG/DL Assessment and Plan Problem List: (1) Ulcer of heel and midfoot (2) DM (diabetes mellitus), type 2, uncontrolled w/neurologic complication (3) Hypertension (4) Peripheral vascular occlusive disease (5) Delirium due to another medical condition (6) Impaired mobility and activities of daily living (7) Cardiomyopathy (8) VT (ventricular tachycardia) Assessment and Plan 1) Episodes of VT, known cardiomyopathy... does not want further ischemic evaluation or consideration of ICD for sudden cardiac prevention 2) Continue with medical management as possible 3) Lethargy per primary team 4) Would keep electrolytes replaced as this may be the cause 5) For cardiomyopathy, on Coreg, restarted on Valsartan... will watch BUN/Cr as she had a drop in renal function last time ARB was started in May Luc Bernardo DO Jul 28, 2016 11:13
--- NOTE | 2016-07-28 12:25 | HHI.PR ---
Subjective Remarks in no acute distress. lethargic and opens the eyes briefly. no fever. daughter at the bedside. Objective Vitals Vital Signs Date Time Temp Pulse Resp B/P Pulse Ox O2 Delivery O2 Flow Rate FiO2 07/28/16 08:00 Room Air 07/28/16 08:00 98.3 70 20 168/79 97 07/28/16 08:00 74 07/28/16 06:45 72 176/81 07/28/16 04:00 98.7 72 18 184/81 94 07/28/16 00:00 98.4 69 17 170/73 94 07/27/16 20:30 Room Air 07/27/16 20:23 76 07/27/16 20:00 98.2 75 18 149/71 94 07/27/16 16:00 98.6 74 24 154/69 96 07/27/16 13:43 71 I/O 07/27/16 07/27/16 07/27/16 07/28/16 07/28/16 07/28/16 07:00 15:00 23:00 07:00 15:00 23:00 Intake Total 792 ml 480 ml 320 ml 120 ml Balance 792 ml 480 ml 320 ml 120 ml Intake Oral 120 ml 480 ml 320 ml 120 ml IV Total 672 ml # Voids 3 2 1 2 # Bowel Movements 0 0 Result Diagram: 07/25/16 0710 07/28/16 0646 Imaging Last Impressions Chest X-Ray 07/20/16 0000 Signed Impressions: Service Date/Time: Wednesday, July 20, 2016 12:38 - CONCLUSION: Mild left base consolidation developing. Alfredo Sneed MD Brain MRI 07/20/16 0000 Signed Impressions: Service Date/Time: Wednesday, July 20, 2016 09:15 - CONCLUSION: No acute intracranial abnormality. Moderately severe chronic white matter changes, nonspecific but most likely small vessel ischemia. Alfredo Sneed MD Head CT 07/19/16 0000 Signed Impressions: Service Date/Time: Tuesday, July 19, 2016 09:58 - CONCLUSION: No acute intracranial findings. João Otoole MD Foot X-Ray 07/16/16 0000 Signed Impressions: Service Date/Time: Saturday, July 16, 2016 17:34 - CONCLUSION: 1. Nonspecific soft tissue swelling. No acute bone destruction demonstrated. 2. Mild talonavicular and navicular/cuneiform degenerative changes. 3. Second through fifth hammertoe. 4. Moderate-sized heel spur. Alfredo Sneed MD Objective Remarks GENERAL: This is a well-nourished, well-developed patient, in no apparent distress. CARDIOVASCULAR: Regular rate and irregular rhythm without murmurs, gallops, or rubs. RESPIRATORY: Clear to auscultation. Breath sounds equal bilaterally. No wheezes , rales, or rhonchi. GASTROINTESTINAL: Abdomen soft, non-tender, nondistended. Normal, active bowel sounds MUSCULOSKELETAL: both legs covered with clean dressing. NEURO: Alert & Oriented x4 to person, place, time, situation. Moves all ext x4 Medications and IVs Current Medications Sodium Chloride (NS 1000 ml Inj) 1,000 ml @ 84 mls/hr [id number] IV Last administered on 07/28/16 05:37; Start 07/15/16 at 19:42 IV Flush (NS Flush) 2 ml UNSCH PRN IV FLUSH FLUSH AFTER USING IV ACCESS Last administered on 07/24/16 04:49; Start 07/15/16 at 19:45 IV Flush (NS Flush) 2 ml BID IV FLUSH Last administered on 07/28/16 08:22; Start 07/15/16 at 21:00 Fentanyl Citrate (fentaNYL INJ) 50 mcg Q3H PRN IV PUSH Pain scale 7-10 &/or sedation Last administered on 07/15/16 21:44; Start 07/15/16 at 19:45; Stop at 11:51; Status DC Famotidine (Pepcid Inj) 20 mg Q12HR IV PUSH Last administered on 07/15/16 20: 19; Start 07/15/16 at 21:00; Stop 07/15/16 at 21:24; Status DC Ondansetron HCl (Zofran Inj) 4 mg Q6H PRN IV NAUSEA OR VOMITING Last administered on 07/17/16 17:45; Start 07/15/16 at 19:45 Metoclopramide HCl (Reglan Inj) 5 mg Q6H PRN IV NAUSEA OR VOMITING; Start 07/15 at 19:45 Docusate Sodium (Colace) 100 mg BID PO Last administered on 07/28/16 08:21; Start 07/15/16 at 21:00 Albuterol/ Ipratropium (Duoneb Neb) 1 ampule Q2HR NEB PRN INH WHEEZING; Start 07/15/16 at 19:45 Heparin Sodium (Porcine) (Heparin Inj) 5,000 units Q8HR SQ Last administered on 07/28/16 06:09; Start 07/15/16 at 22:00 Miscellaneous Information 1 Q361D XX Last administered on 07/15/16 19:45; Start 07/15/16 at 19:45 Chlorhexidine Gluconate (Chlorhexidine 2% Cloth) Taper DAILY@04 TOP Last administered on 07/17/16 03:11; Start 07/16/16 at 04:00; Stop 07/12/17 at 03:59 Chlorhexidine Gluconate (Chlorhexidine 2% Cloth) 3 pack UNSCH PRN TOP HYGIENIC CARE; Start 07/15/16 at 19:45 Acetaminophen (Ofirmev Inj) 1,000 mg Q6H PRN IV PAIN SCALE 1 TO 6; Start at 20:00; Stop 07/18/16 at 11:51; Status DC Ketorolac Tromethamine (Toradol Inj) 30 mg Q6H PRN IM PAIN SCALE 1 TO 7; Start 07/15/16 at 20:00; Stop 07/15/16 at 20:10; Status DC Ketorolac Tromethamine (Toradol Inj) 30 mg Q6H PRN IV PUSH PAIN 1-6 Last administered on 07/15/16 20:34; Start 07/15/16 at 20:15; Stop 07/18/16 at 11:51 ; Status DC Carvedilol (Coreg) 25 mg BID PO Last administered on 07/28/16 08:20; Start at 21:00 Fluconazole (Diflucan) 75 mg DAILY@17 PO Last administered on 07/16/16 17:03; Start 07/16/16 at 17:00; Stop 07/17/16 at 08:09; Status DC Isosorbide Dinitrate (Isordil) 5 mg Q8HR PO Last administered on 07/28/16 06:09 ; Start 07/15/16 at 22:00 Lactobacillus Acidophilus (Lactinex) 1 tab TID PO Last administered on 08:20; Start 07/16/16 at 09:00 Levofloxacin (Levaquin) 250 mg Q48H PO Last administered on 07/21/16 21:05; Start 07/15/16 at 22:00; Stop 07/23/16 at 16:37; Status DC Levothyroxine Sodium (Synthroid) 150 mcg DAILY@06 PO Last administered on 06:09; Start 07/16/16 at 06:00 Liothyronine Sodium (Cytomel) 5 mcg DAILY PO Last administered on 07/28/16 08: 20; Start 07/16/16 at 09:00 Non-Formulary Medication 325 mg DAILY PO ; Start 07/16/16 at 09:00; Status UNV Miscellaneous (Pill Splitter) 1 ea UNSCH PRN OTHER SEE LABEL COMMENTS; Start at 21:30 Famotidine (Pepcid Inj) 10 mg Q12HR IV PUSH Last administered on 07/17/16 07: 29; Start 07/16/16 at 09:00; Stop 07/18/16 at 10:59; Status DC Aspirin (Ecotrin Ec) 325 mg DAILY PO Last administered on 07/28/16 08:21; Start 07/16/16 at 09:00 Etomidate (Amidate Inj) 20 mg STK-MED ONCE .ROUTE ; Start 07/16/16 at 17:07; Stop 07/16/16 at 17:08; Status DC Famotidine (Pepcid Inj) 20 mg Q12HR IV PUSH Last administered on 07/28/16 08:22 ; Start 07/18/16 at 21:00 Hydromorphone HCl (Dilaudid Pf Inj) 0.5 mg ONCE ONCE IV PUSH ; Start 07/18/16 at 11:45; Stop 07/18/16 at 11:46; Status DC Hydromorphone HCl (Dilaudid Pf Inj) 0.5 mg Q4H PRN IV PUSH breakthrough pain / dresing lori Last administered on 07/27/16 09:32; Start 07/18/16 at 11:45 Acetaminophen/ Hydrocodone Bitart ([place] 5-325 Mg) 1 tab Q6H PRN PO pain 2-10 Last administered on 07/25/16 21:08; Start 07/18/16 at 11:45 Diphenhydramine HCl 50 mg 50 mg STK-MED ONCE .ROUTE ; Start 07/19/16 at 11:20; Stop 07/19/16 at 11:21; Status DC Levetriacetam/ Sodium Chloride (Keppra Inj/NS Inj) 105 ml @ 420 mls/hr Q12HR IV Last administered on 07/20/16 08:19; Start 07/19/16 at 13:00; Stop at 16:25; Status DC Haloperidol Lactate (Haldol Inj) 2 mg Q6H PRN IM aggittation Last administered on 07/19/16 18:02; Start 07/19/16 at 12:30 Lorazepam 1 mg 1 mg Q6H PRN IV PUSH seizures/agiatation Last administered on 06:09; Start 07/19/16 at 12:30 Valproate Sodium 500 mg/Sodium Chloride 105 ml @ 105 mls/hr Q8H IV Last administered on 07/25/16 09:26; Start 07/20/16 at 18:00; Stop 07/25/16 at 09:54; Status DC Cefepime HCl/ Sodium Chloride (Maxipime Inj/NS Inj) 100 ml @ 200 mls/hr Q12H IV Last administered on 07/27/16 02:43; Start 07/21/16 at 15:00; Stop 07/27/16 at 09:00; Status DC Dextrose (D50w (Vial) Inj) 25 ml UNSCH PRN IV PUSH HYPOGLYCEMIA-SEE COMMENTS; Start 07/23/16 at 11:00 Glucagon (Glucagon Inj) 1 mg UNSCH PRN OTHER HYPOGLYCEMIA-SEE COMMENTS; Start 07/23/16 at 11:00 Insulin Aspart (NovoLOG SUPPLEMENTAL SCALE) 1 ACHS SLIDING SCALE SQ Last administered on 07/28/16 11:37; Start 07/23/16 at 11:00 Potassium Chloride (KCl) 40 meq ONCE ONCE PO Last administered on 07/24/16 13: 00; Start 07/24/16 at 13:00; Stop 07/24/16 at 13:01; Status DC Valproic Acid (Depakene) 500 mg Q8HR PO Last administered on 07/26/16 14:52; Start 07/25/16 at 15:00; Stop 07/26/16 at 17:39; Status DC Potassium Chloride (KCl) 30 meq ONCE ONCE PO Last administered on 07/26/16 19: 30; Start 07/26/16 at 16:30; Stop 07/26/16 at 16:36; Status DC Potassium Chloride (KCl) 30 meq ONCE ONCE PO Last administered on 07/26/16 22: 16; Start 07/26/16 at 20:00; Stop 07/26/16 at 20:01; Status DC Valproic Acid (Depakene) 250 mg Q12HR PO Last administered on 07/28/16 08:20; Start 07/27/16 at 09:00 Hydromorphone HCl (Dilaudid Pf Inj) 0.5 mg ONCE ONCE IV PUSH Last administered on 07/27/16 10:42; Start 07/27/16 at 10:45; Stop 07/27/16 at 10:46; Status DC Valsartan (Diovan) 80 mg HS PO Last administered on 07/27/16 21:19; Start at 21:00 A/P Assessment and Plan A/P Respiratory Failure - resolved Nebs scheduled, PRN May need CPAP at night Pulmonology Consulted, need sleep study as OP Altered mental status Poss Metabolic toxic encephalopathy. Possible seizure. EEG with possible seizure - Hold all medications that could contribute. Hold anxiolytics and narcotic MRI brain with no acute abnormality. dc'ed Keppra and started on Depakote per neurology; decreased the dose due to worsening confusion. will hold ativan for now and reconsult neurology. Psychosis. Consulted psychiatry. Peripheral vascular disease - Supportive care. Wound Care. - Pain control - F/U with vascular surgeon Diabetes - Levemir on hold for now - Insulin sliding scale for now, until eating better Cardiomyopathy - Coreg - Isosorbide - Monitor BP Trend Hypothyroidism - TSH 9.150 - Synthroid 150mcg daily, check freeT4, may also be related to recent acute illness. Recheck in 4 weeks. Bilteral LE Cellulitis Left LE with gangrenous 2nd and 3rd feet. Continue dressing changes per Dr Valdes podiatry recommendation. Reconsulted vascular surgeon Dr Taylor ( known to patient) on 07/20. Seen by Dr Taylor vasc surgery; Mild PAD and chronic wounds, s/p L SFA GUM PULLER and recanalization with good runoff. Based on radiographic images post-intervention, she has adequate blood flow to heal wounds follow-up by Dr Taylor. finished the course of Cefepime- ID has signed off. V-tach with EF 35%- continue BB- consulted cardiology; patient declined further work-up- continue medical management. Hyponatremia - resolved- hypokalemia; replaced. DVT GI prophylaxis - Heparin and Pepcid Discharge Planning not ready for discharge. d/w case management. Conrad Clancy MD Jul 28, 2016 12:25
[2016-07-28] MEDS: HYDROmorphone HCL PF 1 MG/ML VIAL IV PUSH PRN ×2 (12:41→23:09)
--- NOTE | 2016-07-28 15:37 | EC ---
Study Study Date:07/28/2016 STUDY CONCLUSIONS SUMMARY - Left ventricle: The cavity size was moderately to severely dilated. Wall thickness was normal. Systolic function was moderately reduced. The estimated ejection fraction was in the range of 35% to 40%. Akinesis of the distal anteroseptal and apical myocardium. - Aortic valve: Trace regurgitation. Valve area: 1.07cm^2(VTI). Valve area: 1.12cm^2 (Vmax). - Mitral valve: Mildly calcified annulus. - Pulmonary arteries: PA peak pressure: 31mm Hg (S). If LV function is below 40, please consider prescribing an ACEI or ARB or document rationale for non-use. PROCEDURE DATA STUDY STATUS: Elective. Procedure: Transthoracic echocardiography. Image quality was good. Scanning was performed from the parasternal, apical, and subcostal acoustic windows. Study completion: The patient tolerated the procedure well. Transthoracic echocardiography. M-mode, complete 2D, complete spectral Doppler, and color Doppler. Height: Height: 63in. Weight: Weight: 211.6lb. Body mass index: BMI: 37.6kg/m^2. Body surface area: BSA: 1.98m^2. Patient status: Inpatient. CARDIAC ANATOMY LEFT VENTRICLE: The cavity size was moderately to severely dilated. Wall thickness was normal. Systolic function was moderately reduced. The estimated ejection fraction was in the range of 35% to 40%. Regional wall motion abnormalities: Akinesis of the distal anteroseptal and apical myocardium. AORTIC VALVE: Trileaflet; normal thickness leaflets. Doppler: Transvalvular velocity was within the normal range. There was no stenosis. Trace regurgitation. Valve area: 1.07cm^2(VTI). Indexed valve area: 0.54cm^2/m^2 (VTI). Valve area: 1.12cm^2 (Vmax). Indexed valve area: 0.57cm^2/m^2 (Vmax). Mean gradient: 7mm Hg (S). Peak gradient: 13mm Hg (S). AORTA: Aortic root: The aortic root was normal in size. MITRAL VALVE: Mildly calcified annulus. Doppler: Transvalvular velocity was within the normal range. There was no evidence for stenosis. Trace regurgitation. LEFT ATRIUM: The atrium was normal in size. RIGHT VENTRICLE: The cavity size was normal. Wall thickness was normal. PULMONIC VALVE: Doppler: Transvalvular velocity was within the normal range. There was no evidence for stenosis. No regurgitation. TRICUSPID VALVE: Structurally normal valve. Doppler: Transvalvular velocity was within the normal range. Trace regurgitation. PULMONARY ARTERY: The main pulmonary artery was normal-sized. Systolic pressure was within the normal range. RIGHT ATRIUM: The atrium was normal in size. PERICARDIUM: There was no pericardial effusion. SYSTEMIC VEINS: Inferior vena cava: The vessel was mildly dilated. Patient weight: 211.6lb _Ejection fraction:_ 65-75% _Fractional shortening:_ 32% up to 5Kg 5-11.5Kg 11.6-22.9Kg 23-45Kg 45-57Kg Aortic Root 7-13 <17 13-22 17-27 17-27 LA diam 6-13 <23 24-38 33-47 37-40 RVID 10-17 7-15 7-15 7-18 8-17 LVIDd 12-22 <32 24-38 33-47 37-40 LVPW 2-4 3-6 5-7 6-8 7-8 IVS 2-4 3-6 5-7 6-8 7-8 BASIC MEASUREMENTS ADULT NORMAL Left ventricle LV internal dimension, ED, chordal *70.5 mm 43-52 level, PLAX LV internal dimension, ES, chordal *59.6 mm 23-38 level, PLAX Fractional shortening, chordal level, *15 % >29 PLAX LV posterior wall thickness, ED 9.52 mm IVS/LVPW ratio, ED 0.99 <1.3 Ventricular septum Septal thickness, ED 9.44 mm Aortic valve Leaflet separation 17 mm 15-26 Aorta Root diameter, ED 30 mm Left atrium Anterior-posterior dimension 33 mm Anterior-posterior dimension index 1.67 cm/m^2 <2.2 BASIC MEASUREMENTS ADULT NORMAL Aortic valve Leaflet separation 17 mm 15-26 DOPPLER MEASUREMENTS ADULT NORMAL Main pulmonary artery Pressure, S *31 mm Hg =30 Aortic valve Peak velocity, S 183 cm/s Mean velocity, S 119 cm/s VTI, S 40.8 cm Mean gradient, S 7 mm Hg Peak gradient, S 13 mm Hg Valve area, VTI 1.07 cm^2 Valve area index, VTI 0.54 cm^2/m^2 Valve area, Vmax 1.12 cm^2 Valve area index, Vmax 0.57 cm^2/m^2 Mitral valve Peak E-wave velocity 70.1 cm/s Peak A-wave velocity 127 cm/s Deceleration time *437 ms 150-230 Peak E/A ratio 0.6 Tricuspid valve Regurgitant peak velocity 266 cm/s Peak RV-RA gradient, S 28 mm Hg Maximal regurgitant velocity 266 cm/s Systemic veins Estimated CVP 5 mm Hg Right ventricle RV pressure, S *33 mm Hg <30 Pulmonic valve Peak velocity, S 78.5 cm/s LEGEND: Mean values are shown as u=mean value. Asterisk (*) bolanos values outside specified normal range. Prepared and signed by Zoltan Garcias [id number]
[2016-07-28] MEDS ORDERED: ENALAPRILAT 1.25 MG/ML VIAL IV PUSH PRN (16:00)
--- NOTE | 2016-07-28 16:51 | HHI.PR ---
Subjective Remarks 61 YO WF withDM,CMP,DVT,Leg ulcer Weaned to RA No CP,fever or chills MRI, EEG done Much more awake, c/o pain Seen by has CMP Objective Vital Signs Vital Signs Date Time Temp Pulse Resp B/P Pulse Ox O2 Delivery O2 Flow Rate FiO2 07/28/16 12:00 98.3 63 16 169/77 99 07/28/16 08:00 Room Air 07/28/16 08:00 98.3 70 20 168/79 97 07/28/16 08:00 74 07/28/16 06:45 72 176/81 07/28/16 04:00 98.7 72 18 184/81 94 07/28/16 00:00 98.4 69 17 170/73 94 07/27/16 20:30 Room Air 07/27/16 20:23 76 07/27/16 20:00 98.2 75 18 149/71 94 I/O 07/27/16 07/27/16 07/27/16 07/28/16 07/28/16 07/28/16 07:00 15:00 23:00 07:00 15:00 23:00 Intake Total 792 ml 480 ml 320 ml 120 ml 2663 ml Balance 792 ml 480 ml 320 ml 120 ml 2663 ml Intake Oral 120 ml 480 ml 320 ml 120 ml IV Total 672 ml 2663 ml # Voids 3 2 1 2 # Bowel Movements 0 0 Result Diagram: 07/25/16 0710 07/28/16 0646 Objective Remarks GENERAL: Obese WF, NAD SKIN: Warm and dry. HEAD: Normocephalic. EYES: No scleral icterus. No injection or drainage. NECK: Supple, trachea midline. No JVD or lymphadenopathy. CARDIOVASCULAR: Regular rate and rhythm without murmurs, gallops, or rubs. RESPIRATORY: Breath sounds equal bilaterally. No accessory muscle use. GASTROINTESTINAL: Abdomen soft, non-tender, nondistended. MUSCULOSKELETAL: No cyanosis, or edema. BACK: Nontender without obvious deformity. No CVA tenderness. A/P Assessment and Plan LIVE likly DM Leg ulcer DVT CMP Encephalopathy PLAN: Will need sleep study as out pt Monitor BS Cont Abx pain controll Lito Harris MD Jul 28, 2016 16:51
[2016-07-28] MEDS: ACETAMINOPHEN/HYDROcodone 325 MG/5 MG TAB PO PRN (17:41)
--- NOTE | 2016-07-28 17:58 | RADRPT ---
EXAM DATE/TIME: 07/28/2016 14:34 [facility] COMPARISON: No previous studies available for comparison. INDICATIONS : Right arm swelling. MEDICAL HISTORY : Hypercholesterolemia. Osteoporosis. Arthritis. Thyroid disease. HTN. Diabetes. Rubella. Depression. A nxiety. SURGICAL HISTORY : Cholecystectomy. Left oophorectomy. ENCOUNTER: Initial ACUITY: 1 day PAIN SCORE: 0/10 LOCATION: Right arm. FINDINGS: There is spontaneous flow documented in the brachial, basilic, cephalic, axillary, and subclavian vei ns. The vessels are compressible and augmentation response is documented. No filling defects are se en. The flow is phasic with respiration. Direction of flow in the jugular vein is caudal. CONCLUSION: No DVT is identified within the right upper extremity. Alfredo Eng MD on July 28, 2016 at 17:56 Board Certified Radiologist. This report was verified electronically.
[2016-07-28] MEDS: VALSARTAN 80 MG TAB PO SCH (21:57)
[2016-07-29] VITALS (8 sets, daily range): BP systolic 135–162; BP diastolic 66–84; PULSE 16–80; RESP 16–20; TEMP 97.8–100.2; O2SAT 93–98
[2016-07-29] MEDS: ACETAMINOPHEN/HYDROcodone 325 MG/5 MG TAB PO PRN ×3 (02:02→17:40)
[2016-07-29] MEDS: CHLORHEXIDINE GLUCONATE 2 % 1 PACK (2 CLOTHS) TOP SCH (04:00)
[2016-07-29] MEDS: HYDROmorphone HCL PF 1 MG/ML VIAL IV PUSH PRN ×2 (05:04→10:22)
[2016-07-29] MEDS: HEPARIN SODIUM - SQ 10,000 UNITS/ML VIAL SQ SCH ×3 (05:07→22:07)
[2016-07-29] MEDS: LEVOTHYROXINE SODIUM 150 MCG TAB PO SCH (05:08)
[2016-07-29] MEDS: ISOSORBIDE DINITRATE 5 MG TAB PO SCH ×3 (05:08→22:06)
[2016-07-29] MEDS: SODIUM CHLOR 0.9% 1000 ML INJ 1,000 ML IV SCH ×2 (05:10→17:22)
[2016-07-29] MEDS: INSULIN ASPART SUPPLEMENTAL SCALE SQ SCH ×4 (05:20→22:08)
[2016-07-29] MEDS: LIOTHYRONINE SODIUM 5 MCG TAB PO SCH (08:08)
[2016-07-29] MEDS: VALPROIC ACID 250 MG CAP PO SCH ×2 (08:08→22:06)
[2016-07-29] MEDS: LACTOBACILLUS ACIDOPHILUS TAB PO SCH ×3 (08:08→17:23)
[2016-07-29] MEDS: ASPIRIN EC 325 MG TABEC PO SCH (08:08)
[2016-07-29] MEDS: FAMOTIDINE 20 MG/2 ML VIAL IV PUSH SCH ×2 (08:09→22:07)
[2016-07-29] MEDS: SODIUM CHLORIDE 0.9% FLUSH 5 ML FLUSH IV FLUSH SCH ×2 (08:09→22:08)
[2016-07-29] MEDS: CARVEDILOL 12.5 MG TAB PO SCH ×2 (08:09→22:07)
[2016-07-29] MEDS: DOCUSATE SODIUM 100 MG CAP PO SCH ×2 (08:09→22:07)
--- NOTE | 2016-07-29 08:59 | PD.CARD.PN ---
Subjective Subjective Remarks More awake and appropriate today, no chest pain, no shortness of breath Objective Medications Current Medications Medications (Trade) Dose Ordered Sig/Virgilio Route Start Time Stop Time Status Last Admin (NS 1000 ml Inj) 1,000 ml @ 84 mls/hr [id number] IV 07/15/16 19:42 07/29/16 05:10 (NS Flush) 2 ml UNSCH PRN IV FLUSH 07/15/16 19:45 07/24/16 04:49 (NS Flush) 2 ml BID IV FLUSH 07/15/16 21:00 07/28/16 21:56 (Zofran Inj) 4 mg Q6H PRN IV 07/15/16 19:45 07/17/16 17:45 (Reglan Inj) 5 mg Q6H PRN IV 07/15/16 19:45 (Colace) 100 mg BID PO 07/15/16 21:00 07/29/16 08:09 (Heparin Inj) 5,000 units Q8HR SQ 07/15/16 22:00 07/29/16 05:07 Miscellaneous Information 1 Q361D XX 07/15/16 19:45 07/15/16 19:45 (Chlorhexidine 2% Cloth) Taper DAILY@04 TOP 07/16/16 04:00 07/12/17 03:59 07/17/16 03:11 (Chlorhexidine 2% Cloth) 3 pack UNSCH PRN TOP 07/15/16 19:45 (Coreg) 25 mg BID PO 07/15/16 21:00 07/29/16 08:09 (Isordil) 5 mg Q8HR PO 07/15/16 22:00 07/29/16 05:08 (Lactinex) 1 tab TID PO 07/16/16 09:00 07/29/16 08:08 (Synthroid) 150 mcg DAILY@06 PO 07/16/16 06:00 07/29/16 05:08 (Cytomel) 5 mcg DAILY PO 07/16/16 09:00 07/29/16 08:08 (Pill Splitter) 1 ea UNSCH PRN OTHER 07/15/16 21:30 (Ecotrin Ec) 325 mg DAILY PO 07/16/16 09:00 07/29/16 08:08 (Pepcid Inj) 20 mg Q12HR IV PUSH 07/18/16 21:00 07/29/16 08:09 (Dilaudid Pf Inj) 0.5 mg Q4H PRN IV PUSH 07/18/16 11:45 07/29/16 05:04 ([place] 5-325 Mg) 1 tab Q6H PRN PO 07/18/16 11:45 07/29/16 08:08 (Haldol Inj) 2 mg Q6H PRN IM 07/19/16 12:30 07/19/16 18:02 (Ativan Inj) 1 mg Q6H PRN IV PUSH 07/19/16 12:30 Hold 07/28/16 06:09 (D50w (Vial) Inj) 25 ml UNSCH PRN IV PUSH 07/23/16 11:00 (Glucagon Inj) 1 mg UNSCH PRN OTHER 07/23/16 11:00 (Depakene) 250 mg Q12HR PO 07/27/16 09:00 07/29/16 08:08 (Diovan) 80 mg HS PO 07/27/16 21:00 07/28/16 21:57 (Vasotec Inj) 1.25 mg Q8H PRN IV PUSH 07/28/16 16:00 Vital Signs / I&O Vital Signs Date Time Temp Pulse Resp B/P Pulse Ox O2 Delivery O2 Flow Rate FiO2 07/29/16 08:00 97.9 16 16 149/67 97 07/29/16 07:15 Room Air 07/29/16 04:00 98.7 72 18 135/66 95 07/29/16 00:00 100.2 73 20 162/72 96 07/28/16 20:12 96 21 07/28/16 20:00 77 07/28/16 20:00 97.9 74 18 154/70 97 07/28/16 20:00 Room Air 07/28/16 16:00 98.0 77 20 178/81 99 07/28/16 12:00 98.3 63 16 169/77 99 I/O 07/28/16 07/28/16 07/28/16 07/29/16 07/29/16 07/29/16 07:00 15:00 23:00 07:00 15:00 23:00 Intake Total 120 ml 2783 ml 360 ml 1278 ml Balance 120 ml 2783 ml 360 ml 1278 ml Intake Oral 120 ml 120 ml 360 ml 120 ml IV Total 2663 ml 1158 ml # Voids 2 2 1 2 # Bowel Movements 0 0 Physical Exam GENERAL: AAOx3 SKIN: Warm and dry. HEAD: Atraumatic. Normocephalic. EYES: Pupils equal and round. No scleral icterus. No injection or drainage. ENT: No nasal bleeding or discharge. Mucous membranes pink and moist. NECK: Trachea midline. No JVD. CARDIOVASCULAR: Regular rate and rhythm. RESPIRATORY: No accessory muscle use. Decreased breath sounds bilaterally GASTROINTESTINAL: Abdomen soft, non-tender, nondistended. Hepatic and splenic margins not palpable. MUSCULOSKELETAL: Bilaterally cellulitis with gangrene NEUROLOGICAL: No focal deficits. No obvious cranial nerve deficits. Motor grossly within normal limits. Five out of 5 muscle strength in the arms and legs. Normal speech. PSYCHIATRIC: Appropriate judgement Laboratory Laboratory Tests Test 07/26/16 07/27/16 07/28/16 12:18 08:21 06:46 Potassium Level 3.2 MEQ/L 3.7 MEQ/L 3.9 MEQ/L (3.5-5.1) (3.5-5.1) (3.5-5.1) Valproic Acid (Depakene) Level 53 MCG/ML (50-100) Sodium Level 143 MEQ/L 143 MEQ/L (136-145) (136-145) Chloride Level 107 MEQ/L 106 MEQ/L (98-107) (98-107) Carbon Dioxide Level 27.2 MEQ/L 29.6 MEQ/L (21.0-32.0) (21.0-32.0) Anion Gap 9 MEQ/L (5-15) 7 MEQ/L (5-15) Blood Urea Nitrogen 9 MG/DL (7-18) 9 MG/DL (7-18) Creatinine 0.72 MG/DL 0.75 MG/DL (0.50-1.00) (0.50-1.00) Estimat Glomerular Filtration 82 ML/MIN (>89) 78 ML/MIN (>89) Rate Random Glucose 198 MG/DL 211 MG/DL (74-106) (74-106) Calcium Level 7.8 MG/DL 7.7 MG/DL (8.5-10.1) (8.5-10.1) Magnesium Level 2.1 MG/DL 2.0 MG/DL (1.5-2.5) (1.5-2.5) Assessment and Plan Problem List: (1) Ulcer of heel and midfoot (2) DM (diabetes mellitus), type 2, uncontrolled w/neurologic complication (3) Hypertension (4) Peripheral vascular occlusive disease (5) Delirium due to another medical condition (6) Impaired mobility and activities of daily living (7) Cardiomyopathy (8) VT (ventricular tachycardia) Assessment and Plan 1) Episodes of VT, known cardiomyopathy... none noted over night... does not want further ischemic evaluation or consideration of ICD for sudden cardiac prevention, EF 35-40% 2) Continue with medical management as possible 3) Would keep electrolytes replaced as this may be the cause 4) For cardiomyopathy, on Coreg, restarted on Valsartan... will watch BUN/Cr as she had a drop in renal function last time ARB was started in May, but felt that it was multifactorial Luc Bernardo DO Jul 29, 2016 08:59
--- NOTE | 2016-07-29 10:49 | HHI.PR ---
Subjective Remarks Follow-up visit seizure, altered mental status encephalopathy, psychosis, cardiomyopathy. Patient seen today. Awake alert very confused. Unable to tell date of . Unable to tell where she is at. Disorganized thoughts. Intermittent crying. Requesting to go home and be with her . Pain and discomfort with leg movement or leg manipulation.. Denies SOB/ dyspnea. Denies chest pain, palpitations, headaches, dizziness. Denies fevers, chills, n/ v/d. Objective Vitals Vital Signs Date Time Temp Pulse Resp B/P Pulse Ox O2 Delivery O2 Flow Rate FiO2 07/29/16 08:45 74 07/29/16 08:00 97.9 16 16 149/67 97 07/29/16 07:15 Room Air 07/29/16 04:00 98.7 72 18 135/66 95 07/29/16 00:00 100.2 73 20 162/72 96 07/28/16 20:12 96 21 07/28/16 20:00 77 07/28/16 20:00 97.9 74 18 154/70 97 07/28/16 20:00 Room Air 07/28/16 16:00 98.0 77 20 178/81 99 07/28/16 12:00 98.3 63 16 169/77 99 I/O 07/28/16 07/28/16 07/28/16 07/29/16 07/29/16 07/29/16 07:00 15:00 23:00 07:00 15:00 23:00 Intake Total 120 ml 2783 ml 360 ml 1278 ml Balance 120 ml 2783 ml 360 ml 1278 ml Intake Oral 120 ml 120 ml 360 ml 120 ml IV Total 2663 ml 1158 ml # Voids 2 2 1 2 # Bowel Movements 0 0 Result Diagram: 07/25/16 0710 07/28/16 0646 Imaging Last Impressions Upper Extremity Ultrasound 07/28/16 0000 Signed Impressions: Service Date/Time: Thursday, July 28, 2016 14:34 - CONCLUSION: No DVT is identified within the right upper extremity. Alfredo Eng MD Chest X-Ray 07/20/16 0000 Signed Impressions: Service Date/Time: Wednesday, July 20, 2016 12:38 - CONCLUSION: Mild left base consolidation developing. Alfredo Sneed MD Brain MRI 07/20/16 0000 Signed Impressions: Service Date/Time: Wednesday, July 20, 2016 09:15 - CONCLUSION: No acute intracranial abnormality. Moderately severe chronic white matter changes, nonspecific but most likely small vessel ischemia. Alfredo Sneed MD Head CT 07/19/16 0000 Signed Impressions: Service Date/Time: Tuesday, July 19, 2016 09:58 - CONCLUSION: No acute intracranial findings. João Otoole MD Foot X-Ray 07/16/16 0000 Signed Impressions: Service Date/Time: Saturday, July 16, 2016 17:34 - CONCLUSION: 1. Nonspecific soft tissue swelling. No acute bone destruction demonstrated. 2. Mild talonavicular and navicular/cuneiform degenerative changes. 3. Second through fifth hammertoe. 4. Moderate-sized heel spur. Alfredo Sneed MD Objective Remarks GENERAL: Well-nourished, well-developed patient. Not in Distress. SKIN: Warm and dry. BLE necrotic wounds, cassy wrap dsg in place. Necrotic left toes- 2nd and 3rd HEAD: Normocephalic. EYES: No scleral icterus. No injection or drainage. NECK: Supple, trachea midline. No JVD or lymphadenopathy. CARDIOVASCULAR: Regular rate and rhythm without murmurs, gallops, or rubs. RESPIRATORY: Breath sounds equal bilaterally. No accessory muscle use. GASTROINTESTINAL: Abdomen soft, non-tender, nondistended. Bowel sounds active 4. MUSCULOSKELETAL: Generalized edema +1. Unable to move bilateral lower extremity without assist. Able to wiggle toes. BACK: Nontender without obvious deformity. No CVA tenderness. EXTREMITIES: Multiple venous status ulcers nonhealing up to her knees. NEURO: Awake and alert. Confuse. Intermittent crying. Normal speech. Able to carry out sentence conversation but forgets and goes off topic. A/P Problem List: (1) Cellulitis of left lower extremity ICD Code: L03.116 Status: Acute (2) Delirium due to another medical condition ICD Code: F05 Status: Acute Assessment and Plan Pt. is 61-year-old female, with multiple admissions, with history of cellulitis of legs, severe PVD, diabetes and cardiomyopathy EF of 30% was at the rehabilitation facility when she became more altered lethargic and hypoxic. Rapid response team was called and transferred patient to ICU. In the ICU patient remains confused and lethargic responsive to pain with a stable blood pressure and saturation of 100% on 40% face mask. Patient has improved and was transferred to regular medical/ surgical unit Respiratory Failure - resolved. - Nebs scheduled, PRN - May need CPAP at night - Pulmonology Consult, may need sleep study as outpatient. Altered mental status, Metabolic toxic encephalopathy - Hold all medications that could contribute. Hold anxiolytics and narcotics - Possible seizure. EEG with possible seizure. - MRI brain with no acute abnormality. - dc'ed Keppra and started on Depakote per neurology; decreased the dose due to worsening confusion. Depakote level 07/26/16 at 53. - will hold ativan for now and reconsult neurology. Input appreciated. Psychosis. Consulted psychiatry. - Recommends no benzodiazepine use. Haldol if patient gets agitated or combative. Peripheral vascular disease - Supportive care. Wound Care. - Pain control - F/U with vascular surgeon Diabetes - Hold Levemir due to hypoglycemia - Insulin sliding scale for now, until eating better Cardiomyopathy V-tach with EF 35%- continue BB- consulted cardiology; patient declined further work-up- continue medical management. - Coreg - Isosorbide - Monitor BP Trend. Occasional elevated BP possibly secondary to anxiety/ confusion. - Spoke with Dr. Bernardo- Cardiology, stable from their standpoint. Hypothyroidism - TSH 9.150 - Synthroid 150mcg daily, check freeT4, may also be related to recent acute illness. Recheck in 4 weeks - August 05 Cellulitis, left lower extremity with gangrenous second and third toe. Continue dressing changes per Dr. Valdes at the podiatry recommendation. - Reconsulted vascular surgeon Dr Taylor ( known to patient) on 07/20. 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 Based on radiographic images post- intervention, she has adequate blood flow to heal wounds - follow-up by Dr Taylor. - finished the course of Cefepime- ID has signed off. Hyponatremia - resolved. Hypokalemia - replacements done. DVT GI prophylaxis - Heparin and Pepcid Full code Discussed with patient, nursing Written by Ella Berger, on behalf of Dr. Wild on 07/29/16 at . Discharge Planning Not ready for discharge. Discussed with case management future placement. Attending Statement patient was seen today. is more alert today. pain seems to be fairly controlled. d/w who recommended plastic surgery evaluation. cardiology follow-up appreciated- and recommended medical treatment. otherwise will continue with current treatment plan. Ella Arzola Jul 29, 2016 10:49 Conrad Clancy MD Jul 29, 2016 12:08
[2016-07-29] MEDS: HALOPERIDOL LACTATE 5 MG/ML AMP IM PRN (12:05)
--- NOTE | 2016-07-29 18:47 | MG ---
cc: JOSE PASCUAL M.D. Lab No: Date: 07/29/2016 Age: Sex: F Race: REQUESTING PHYSICIAN Dr. Rodriguez. INTRODUCTION An EEG was obtained on this 61-year-old patient with a history of apparent emotional distress and lethargy. DESCRIPTION The EEG shows a lot of theta with delta rhythms and overall lack of alpha background activity. There are beta rhythms as well. Photic stimulation disclosed artifact only. There is limited alpha activity on this recording. INTERPRETATION Abnormal EEG because of generalized slowing suggestive of a [id number] diffuse disturbance of cerebral function. No epileptiform features present. MD SUE Cui/KK /6:21 PM /6:39 PM
[2016-07-29] MEDS: VALSARTAN 80 MG TAB PO SCH (22:06)
[2016-07-30] VITALS (7 sets, daily range): BP systolic 120–159; BP diastolic 59–72; PULSE 61–80; RESP 14–24; TEMP 98–100.1; O2SAT 93–97
[2016-07-30] MEDS: ACETAMINOPHEN/HYDROcodone 325 MG/5 MG TAB PO PRN ×2 (00:30→06:23)
[2016-07-30] MEDS: HALOPERIDOL LACTATE 5 MG/ML AMP IM PRN (01:29)
[2016-07-30] MEDS: CHLORHEXIDINE GLUCONATE 2 % 1 PACK (2 CLOTHS) TOP SCH (04:00)
[2016-07-30] MEDS: SODIUM CHLOR 0.9% 1000 ML INJ 1,000 ML IV SCH ×2 (05:17→15:59)
[2016-07-30] MEDS: HEPARIN SODIUM - SQ 10,000 UNITS/ML VIAL SQ SCH ×3 (05:45→22:41)
[2016-07-30] MEDS: LEVOTHYROXINE SODIUM 150 MCG TAB PO SCH (05:45)
[2016-07-30] MEDS: ISOSORBIDE DINITRATE 5 MG TAB PO SCH ×3 (05:46→22:40)
[2016-07-30] MEDS: INSULIN ASPART SUPPLEMENTAL SCALE SQ SCH ×4 (05:47→22:40)
[2016-07-30 06:59] LABS: BACTERIA, URINE OCC /hpf; BLOOD, URINE SMALL (NEG); GLUCOSE,URINE 300 mg/dL (NEG); KETONE, URINE NEG (NEG); MUCUS URINE FEW /lpf (OCC); NITRITE,URINE NEG (NEG); PH, URINE 5.5 (5.0-8.5); SQUAMOUS EPITHELIAL CELL URINE 5 /hpf (0-5); URINE COLOR YELLOW (YELLW/STRAW)
[2016-07-30 07:14] LABS: COMMENT (UR) CULTURE INDICATED; CULTURE IF INDICATED CULTURE INDICATED
[2016-07-30 07:58] LABS: BICARBONATE 30.3 MEQ/L (21.0-32.0); POTASSIUM 3.1 MEQ/L (3.5-5.1)
--- NOTE | 2016-07-30 08:27 | MB ---
cc: MELANY DUMONT M.D. DATE OF CONSULTATION 07/29/2016 REASON FOR CONSULTATION Bilateral lower extremity extensive necrotic wounds. HISTORY This is a 61-year-old white female with numerous medical problems, renal failure, diabetes, obesity and peripheral vascular disease who has undergone significant care since April. She was admitted with cellulitis of legs, severe peripheral vascular disease, also has a cardiomyopathy with ejection fraction of between 20 and 30%. Currently she has had a ballooning of the left femoral artery, has gangrene of the left second and third toes and also what looks like a gangrene of the heel and bilateral lower extremity necrotic ulcers. She has already been debrided one-time. There is a lot more necrotic tissue this time. The patient is in severe pain in both lower extremities and has been resisting change at dressing due to the pain in particular. OTHER MEDICAL HISTORY Well-documented. CONSULTATIONS There is Infectious Disease consultation going on, Vascular Surgery, General Surgery and medical care. ALLERGIES CONTRAST MEDIA. PEANUTS. SANTYL. She apparently had IV contrast-induced pulmonary edema and cardiac damage accompanying the same in the past. PAST SURGICAL HISTORY 1. Left oophorectomy. 2. Cholecystectomy 3. Hernia repair. 4. Vascular intervention. CURRENT MEDICATIONS There is a very long list of medication as per the chart. Of note she is on - 1. Insulin. 2. Heparin. 3. Coreg. 4. Aspirin. 5. Duragesic patch. PHYSICAL EXAMINATION The examination shows a 61-year-old white female in the surgical bed setting. She is able to move around in the bed. She is alert, cooperative, able to communicate well. The general examination is grossly within acceptable range. The local examination of the both lower extremities shows extensive necrotic tissue, mostly skin and soft tissue and fat involving the entire lower two-thirds of the both legs circumferentially. The left foot is very swollen. It feels slightly warm to touch compared to the right. Pulses are not possible to palpate due to the swelling. The left second and third toe have dry gangrene. The left heel has a 5-6 cm x 4-cm area of dry gangrene again. It does not seem to be a decubitus ulcer, rather a vascular necrosis. ASSESSMENT The patient was explained the overall situation with the wounds. Currently they are fairly dirty. The left lower leg actually has exposed tendons and most likely the tibia will be exposed pretty soon. All the areas need to be debrided and the dressing care continued until there is some degree of recovery of granulation tissue. Presently the skin graft is not an active option. In the future the left foot may be at risk of losing further vasculature and in that case an amputation might be an option to consider. The patient actually indicated that she would not mind an amputation of the left foot while I was talking to her. The decision will be left to the general or vascular surgery and the patient. RECOMMENDATIONS I will take the patient to the operating room for the debridement. I also spoke to her son over a video nila and he seems to understand the problems. Also a hyperbaric chamber may be beneficial. This will need to be referred to the wound care physician at [facility] who is in charge of the hyperbaric chamber. signed, not fully reviewed MD JOVAN Escalante/PRAFUL /7:25 AM /7:48 AM JAY
[2016-07-30] MEDS: DOCUSATE SODIUM 100 MG CAP PO SCH ×2 (08:41→22:40)
[2016-07-30] MEDS: VALPROIC ACID 250 MG CAP PO SCH ×2 (08:42→22:41)
[2016-07-30] MEDS: CARVEDILOL 12.5 MG TAB PO SCH ×2 (08:42→22:40)
[2016-07-30] MEDS: LIOTHYRONINE SODIUM 5 MCG TAB PO SCH (08:42)
[2016-07-30] MEDS: ASPIRIN EC 325 MG TABEC PO SCH (08:43)
[2016-07-30] MEDS: LACTOBACILLUS ACIDOPHILUS TAB PO SCH ×3 (08:43→17:04)
[2016-07-30] MEDS: SODIUM CHLORIDE 0.9% FLUSH 5 ML FLUSH IV FLUSH SCH ×2 (09:00→22:41)
[2016-07-30] MEDS: FAMOTIDINE 20 MG/2 ML VIAL IV PUSH SCH ×2 (09:00→22:41)
--- NOTE | 2016-07-30 09:39 | HHI.PR ---
Subjective Remarks low garde fever last night. awake, alert. pain is controlled. Objective Vitals Vital Signs Date Time Temp Pulse Resp B/P Pulse Ox O2 Delivery O2 Flow Rate FiO2 07/30/16 09:17 71 07/30/16 08:00 98.3 61 24 120/59 96 07/30/16 07:38 18 07/30/16 04:00 98.5 77 20 147/67 95 07/30/16 00:00 100.1 71 14 159/72 96 07/29/16 20:03 97.8 80 20 146/67 93 07/29/16 20:00 Room Air 07/29/16 19:38 95 21 07/29/16 16:00 98.7 79 20 154/72 98 07/29/16 12:00 97.8 77 18 150/84 98 I/O 07/29/16 07/29/16 07/29/16 07/30/16 07/30/16 07/30/16 07:00 15:00 23:00 07:00 15:00 23:00 Intake Total 1278 ml 730 ml 1234 ml Balance 1278 ml 730 ml 1234 ml Intake Oral 120 ml 120 ml IV Total 1158 ml 730 ml 1114 ml # Voids 2 1 # Bowel Movements 1 1 Result Diagram: 07/30/16 0658 Imaging Last Impressions Upper Extremity Ultrasound 07/28/16 0000 Signed Impressions: Service Date/Time: Thursday, July 28, 2016 14:34 - CONCLUSION: No DVT is identified within the right upper extremity. Alfredo Eng MD Chest X-Ray 07/20/16 0000 Signed Impressions: Service Date/Time: Wednesday, July 20, 2016 12:38 - CONCLUSION: Mild left base consolidation developing. Alfredo Sneed MD Brain MRI 07/20/16 0000 Signed Impressions: Service Date/Time: Wednesday, July 20, 2016 09:15 - CONCLUSION: No acute intracranial abnormality. Moderately severe chronic white matter changes, nonspecific but most likely small vessel ischemia. Alfredo Sneed MD Head CT 07/19/16 0000 Signed Impressions: Service Date/Time: Tuesday, July 19, 2016 09:58 - CONCLUSION: No acute intracranial findings. João Otoole MD Foot X-Ray 07/16/16 0000 Signed Impressions: Service Date/Time: Saturday, July 16, 2016 17:34 - CONCLUSION: 1. Nonspecific soft tissue swelling. No acute bone destruction demonstrated. 2. Mild talonavicular and navicular/cuneiform degenerative changes. 3. Second through fifth hammertoe. 4. Moderate-sized heel spur. Alfredo Sneed MD Objective Remarks GENERAL: This is a well-nourished, well-developed patient, in no apparent distress. CARDIOVASCULAR: Regular rate and irregular rhythm without murmurs, gallops, or rubs. RESPIRATORY: Clear to auscultation. Breath sounds equal bilaterally. No wheezes , rales, or rhonchi. GASTROINTESTINAL: Abdomen soft, non-tender, nondistended. Normal, active bowel sounds MUSCULOSKELETAL: both legs covered with clean dressing. NEURO: Alert & Oriented x4 to person, place, time, situation. Moves all ext x4 Medications and IVs Current Medications Sodium Chloride (NS 1000 ml Inj) 1,000 ml @ 84 mls/hr [id number] IV Last administered on 07/29/16 05:10; Start 07/15/16 at 19:42 IV Flush (NS Flush) 2 ml UNSCH PRN IV FLUSH FLUSH AFTER USING IV ACCESS Last administered on 07/24/16 04:49; Start 07/15/16 at 19:45 IV Flush (NS Flush) 2 ml BID IV FLUSH Last administered on 07/29/16 22:08; Start 07/15/16 at 21:00 Fentanyl Citrate (fentaNYL INJ) 50 mcg Q3H PRN IV PUSH Pain scale 7-10 &/or sedation Last administered on 07/15/16 21:44; Start 07/15/16 at 19:45; Stop at 11:51; Status DC Famotidine (Pepcid Inj) 20 mg Q12HR IV PUSH Last administered on 07/15/16 20: 19; Start 07/15/16 at 21:00; Stop 07/15/16 at 21:24; Status DC Ondansetron HCl (Zofran Inj) 4 mg Q6H PRN IV NAUSEA OR VOMITING Last administered on 07/17/16 17:45; Start 07/15/16 at 19:45 Metoclopramide HCl (Reglan Inj) 5 mg Q6H PRN IV NAUSEA OR VOMITING; Start 07/15 at 19:45 Docusate Sodium (Colace) 100 mg BID PO Last administered on 07/29/16 22:07; Start 07/15/16 at 21:00 Albuterol/ Ipratropium (Duoneb Neb) 1 ampule Q2HR NEB PRN INH WHEEZING; Start 07/15/16 at 19:45 Heparin Sodium (Porcine) (Heparin Inj) 5,000 units Q8HR SQ Last administered on 07/30/16 05:45; Start 07/15/16 at 22:00 Miscellaneous Information 1 [id number] Last administered on 07/15/16 19:45; Start 07/15/16 at 19:45 Chlorhexidine Gluconate (Chlorhexidine 2% Cloth) Taper DAILY@04 TOP Last administered on 07/17/16 03:11; Start 07/16/16 at 04:00; Stop 07/12/17 at 03:59 Chlorhexidine Gluconate (Chlorhexidine 2% Cloth) 3 pack UNSCH PRN TOP HYGIENIC CARE; Start 07/15/16 at 19:45 Acetaminophen (Ofirmev Inj) 1,000 mg Q6H PRN IV PAIN SCALE 1 TO 6; Start at 20:00; Stop 07/18/16 at 11:51; Status DC Ketorolac Tromethamine (Toradol Inj) 30 mg Q6H PRN IM PAIN SCALE 1 TO 7; Start 07/15/16 at 20:00; Stop 07/15/16 at 20:10; Status DC Ketorolac Tromethamine (Toradol Inj) 30 mg Q6H PRN IV PUSH PAIN 1-6 Last administered on 07/15/16 20:34; Start 07/15/16 at 20:15; Stop 07/18/16 at 11:51 ; Status DC Carvedilol (Coreg) 25 mg BID PO Last administered on 07/30/16 08:42; Start at 21:00 Fluconazole (Diflucan) 75 mg DAILY@17 PO Last administered on 07/16/16 17:03; Start 07/16/16 at 17:00; Stop 07/17/16 at 08:09; Status DC Isosorbide Dinitrate (Isordil) 5 mg Q8HR PO Last administered on 07/30/16 05:46 ; Start 07/15/16 at 22:00 Lactobacillus Acidophilus (Lactinex) 1 tab TID PO Last administered on 08:43; Start 07/16/16 at 09:00 Levofloxacin (Levaquin) 250 mg Q48H PO Last administered on 07/21/16 21:05; Start 07/15/16 at 22:00; Stop 07/23/16 at 16:37; Status DC Levothyroxine Sodium (Synthroid) 150 mcg DAILY@06 PO Last administered on 05:45; Start 07/16/16 at 06:00 Liothyronine Sodium (Cytomel) 5 mcg DAILY PO Last administered on 07/30/16 08: 42; Start 07/16/16 at 09:00 Non-Formulary Medication 325 mg DAILY PO ; Start 07/16/16 at 09:00; Status UNV Miscellaneous (Pill Splitter) 1 ea UNSCH PRN OTHER SEE LABEL COMMENTS; Start at 21:30 Famotidine (Pepcid Inj) 10 mg Q12HR IV PUSH Last administered on 07/17/16 07: 29; Start 07/16/16 at 09:00; Stop 07/18/16 at 10:59; Status DC Aspirin (Ecotrin Ec) 325 mg DAILY PO Last administered on 07/30/16 08:43; Start 07/16/16 at 09:00 Etomidate (Amidate Inj) 20 mg STK-MED ONCE .ROUTE ; Start 07/16/16 at 17:07; Stop 07/16/16 at 17:08; Status DC Famotidine (Pepcid Inj) 20 mg Q12HR IV PUSH Last administered on 07/29/16 22:07 ; Start 07/18/16 at 21:00 Hydromorphone HCl (Dilaudid Pf Inj) 0.5 mg ONCE ONCE IV PUSH ; Start 07/18/16 at 11:45; Stop 07/18/16 at 11:46; Status DC Hydromorphone HCl (Dilaudid Pf Inj) 0.5 mg Q4H PRN IV PUSH breakthrough pain / dresing lori Last administered on 07/29/16 10:22; Start 07/18/16 at 11:45 Acetaminophen/ Hydrocodone Bitart ([place] 5-325 Mg) 1 tab Q6H PRN PO pain 2-10 Last administered on 07/30/16 06:23; Start 07/18/16 at 11:45 Diphenhydramine HCl 50 mg 50 mg STK-MED ONCE .ROUTE ; Start 07/19/16 at 11:20; Stop 07/19/16 at 11:21; Status DC Levetriacetam/ Sodium Chloride (Keppra Inj/NS Inj) 105 ml @ 420 mls/hr Q12HR IV Last administered on 07/20/16 08:19; Start 07/19/16 at 13:00; Stop at 16:25; Status DC Haloperidol Lactate (Haldol Inj) 2 mg Q6H PRN IM aggittation Last administered on 07/30/16 01:29; Start 07/19/16 at 12:30 Lorazepam 1 mg 1 mg Q6H PRN IV PUSH seizures/agiatation Last administered on 06:09; Start 07/19/16 at 12:30; Status Hold Valproate Sodium 500 mg/Sodium Chloride 105 ml @ 105 mls/hr Q8H IV Last administered on 07/25/16 09:26; Start 07/20/16 at 18:00; Stop 07/25/16 at 09:54; Status DC Cefepime HCl/ Sodium Chloride (Maxipime Inj/NS Inj) 100 ml @ 200 mls/hr Q12H IV Last administered on 07/27/16 02:43; Start 07/21/16 at 15:00; Stop 07/27/16 at 09:00; Status DC Dextrose (D50w (Vial) Inj) 25 ml UNSCH PRN IV PUSH HYPOGLYCEMIA-SEE COMMENTS; Start 07/23/16 at 11:00 Glucagon (Glucagon Inj) 1 mg UNSCH PRN OTHER HYPOGLYCEMIA-SEE COMMENTS; Start 07/23/16 at 11:00 Insulin Aspart (NovoLOG SUPPLEMENTAL SCALE) 1 ACHS SLIDING SCALE SQ Last administered on 07/30/16 05:47; Start 07/23/16 at 11:00 Potassium Chloride (KCl) 40 meq ONCE ONCE PO Last administered on 07/24/16 13: 00; Start 07/24/16 at 13:00; Stop 07/24/16 at 13:01; Status DC Valproic Acid (Depakene) 500 mg Q8HR PO Last administered on 07/26/16 14:52; Start 07/25/16 at 15:00; Stop 07/26/16 at 17:39; Status DC Potassium Chloride (KCl) 30 meq ONCE ONCE PO Last administered on 07/26/16 19: 30; Start 07/26/16 at 16:30; Stop 07/26/16 at 16:36; Status DC Potassium Chloride (KCl) 30 meq ONCE ONCE PO Last administered on 07/26/16 22: 16; Start 07/26/16 at 20:00; Stop 07/26/16 at 20:01; Status DC Valproic Acid (Depakene) 250 mg Q12HR PO Last administered on 07/30/16 08:42; Start 07/27/16 at 09:00 Hydromorphone HCl (Dilaudid Pf Inj) 0.5 mg ONCE ONCE IV PUSH Last administered on 07/27/16 10:42; Start 07/27/16 at 10:45; Stop 07/27/16 at 10:46; Status DC Valsartan (Diovan) 80 mg HS PO Last administered on 07/29/16 22:06; Start at 21:00 Enalaprilat (Vasotec Inj) 1.25 mg Q8H PRN IV PUSH SBP >180 OR DBP >100; Start 07/28/16 at 16:00 A/P Assessment and Plan A/P Respiratory Failure - resolved Nebs scheduled, PRN May need CPAP at night Pulmonology Consulted, need sleep study as OP Altered mental status Poss Metabolic toxic encephalopathy- improved Possible seizure. EEG with possible seizure - Hold all medications that could contribute. Hold anxiolytics and narcotic MRI brain with no acute abnormality. dc'ed Keppra and started on Depakote per neurology; decreased the dose due to worsening confusion. will hold ativan for now and reconsult neurology. Psychosis. Consulted psychiatry. Peripheral vascular disease - Supportive care. Wound Care. - Pain control - F/U with vascular surgeon Diabetes - resume levemir. - Insulin sliding scale for now, until eating better Cardiomyopathy - Coreg - Isosorbide - Monitor BP Trend Hypothyroidism - TSH 9.150 - Synthroid 150mcg daily, check freeT4, may also be related to recent acute illness. Recheck in 4 weeks. Bilteral LE Cellulitis Left LE with gangrenous 2nd and 3rd feet. Continue dressing changes per Dr Valdes podiatry recommendation. Reconsulted vascular surgeon Dr Taylor ( known to patient) on 07/20. 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 Based on radiographic images post-intervention, she has adequate blood flow to heal wounds finished the course of Cefepime- ID has signed off. consulted plastic surgery per 's recommendation; plan for debridement in OR. V-tach with EF 35%- continue BB- consulted cardiology; patient declined further work-up- continue medical management. abnormal UA- possibel UTI- start Rocephin and follow the UC. Hyponatremia - resolved- hypokalemia; will replace. DVT GI prophylaxis - Heparin and Pepcid Discharge Planning not ready for discharge. d/w case management. Conrad Clancy MD Jul 30, 2016 09:38
--- NOTE | 2016-07-30 09:43 | PD.CARD.PN ---
Subjective Subjective Remarks No chest pain, no shortness of breath No ectopy over night Objective Medications Current Medications Medications (Trade) Dose Ordered Sig/Virgilio Route Start Time Stop Time Status Last Admin (NS 1000 ml Inj) 1,000 ml @ 84 mls/hr [id number] IV 07/15/16 19:42 07/29/16 05:10 (NS Flush) 2 ml UNSCH PRN IV FLUSH 07/15/16 19:45 07/24/16 04:49 (NS Flush) 2 ml BID IV FLUSH 07/15/16 21:00 07/29/16 22:08 (Zofran Inj) 4 mg Q6H PRN IV 07/15/16 19:45 07/17/16 17:45 (Reglan Inj) 5 mg Q6H PRN IV 07/15/16 19:45 (Colace) 100 mg BID PO 07/15/16 21:00 07/29/16 22:07 (Heparin Inj) 5,000 units Q8HR SQ 07/15/16 22:00 07/30/16 05:45 Miscellaneous Information 1 Q361D XX 07/15/16 19:45 07/15/16 19:45 (Chlorhexidine 2% Cloth) Taper DAILY@04 TOP 07/16/16 04:00 07/12/17 03:59 07/17/16 03:11 (Chlorhexidine 2% Cloth) 3 pack UNSCH PRN TOP 07/15/16 19:45 (Coreg) 25 mg BID PO 07/15/16 21:00 07/30/16 08:42 (Isordil) 5 mg Q8HR PO 07/15/16 22:00 07/30/16 05:46 (Lactinex) 1 tab TID PO 07/16/16 09:00 07/30/16 08:43 (Synthroid) 150 mcg DAILY@06 PO 07/16/16 06:00 07/30/16 05:45 (Cytomel) 5 mcg DAILY PO 07/16/16 09:00 07/30/16 08:42 (Pill Splitter) 1 ea UNSCH PRN OTHER 07/15/16 21:30 (Ecotrin Ec) 325 mg DAILY PO 07/16/16 09:00 07/30/16 08:43 (Pepcid Inj) 20 mg Q12HR IV PUSH 07/18/16 21:00 07/29/16 22:07 (Dilaudid Pf Inj) 0.5 mg Q4H PRN IV PUSH 07/18/16 11:45 07/29/16 10:22 ([place] 5-325 Mg) 1 tab Q6H PRN PO 07/18/16 11:45 07/30/16 06:23 (Haldol Inj) 2 mg Q6H PRN IM 07/19/16 12:30 07/30/16 01:29 (Ativan Inj) 1 mg Q6H PRN IV PUSH 07/19/16 12:30 Hold 07/28/16 06:09 (D50w (Vial) Inj) 25 ml UNSCH PRN IV PUSH 07/23/16 11:00 (Glucagon Inj) 1 mg UNSCH PRN OTHER 07/23/16 11:00 (Depakene) 250 mg Q12HR PO 07/27/16 09:00 07/30/16 08:42 (Diovan) 80 mg HS PO 07/27/16 21:00 07/29/16 22:06 (Vasotec Inj) 1.25 mg Q8H PRN IV PUSH 07/28/16 16:00 Vital Signs / I&O Vital Signs Date Time Temp Pulse Resp B/P Pulse Ox O2 Delivery O2 Flow Rate FiO2 07/30/16 09:17 71 07/30/16 08:00 98.3 61 24 120/59 96 07/30/16 07:38 18 07/30/16 04:00 98.5 77 20 147/67 95 07/30/16 00:00 100.1 71 14 159/72 96 07/29/16 20:03 97.8 80 20 146/67 93 07/29/16 20:00 Room Air 07/29/16 19:38 95 21 07/29/16 16:00 98.7 79 20 154/72 98 07/29/16 12:00 97.8 77 18 150/84 98 I/O 07/29/16 07/29/16 07/29/16 07/30/16 07/30/16 07/30/16 07:00 15:00 23:00 07:00 15:00 23:00 Intake Total 1278 ml 730 ml 1234 ml Balance 1278 ml 730 ml 1234 ml Intake Oral 120 ml 120 ml IV Total 1158 ml 730 ml 1114 ml # Voids 2 1 # Bowel Movements 1 1 Physical Exam GENERAL: AAOx3 SKIN: Warm and dry. HEAD: Atraumatic. Normocephalic. EYES: Pupils equal and round. No scleral icterus. No injection or drainage. ENT: No nasal bleeding or discharge. Mucous membranes pink and moist. NECK: Trachea midline. No JVD. CARDIOVASCULAR: Regular rate and rhythm. RESPIRATORY: No accessory muscle use. Decreased breath sounds bilaterally GASTROINTESTINAL: Abdomen soft, non-tender, nondistended. Hepatic and splenic margins not palpable. MUSCULOSKELETAL: Bilaterally cellulitis with gangrene NEUROLOGICAL: No focal deficits. No obvious cranial nerve deficits. Motor grossly within normal limits. Five out of 5 muscle strength in the arms and legs. Normal speech. PSYCHIATRIC: Appropriate judgement Laboratory Laboratory Tests Test 07/30/16 07/30/16 05:00 06:58 Urine Color YELLOW Urine Turbidity HAZY Urine pH 5.5 Urine Specific [place] 1.017 Urine Protein 30 mg/dL Urine Glucose (UA) 300 mg/dL Urine Ketones NEG mg/dL Urine Occult Blood SMALL Urine Nitrite NEG Urine Bilirubin NEG Urine Urobilinogen LESS THAN 2.0 MG/DL Urine Leukocyte Esterase MOD Urine RBC 4 /hpf Urine WBC 95 /hpf Urine Squamous Epithelial 5 /hpf Cells Urine Bacteria OCC /hpf Urine Mucus FEW /lpf Urine Yeast (Budding) MANY Microscopic Urinalysis Comment CULTURE INDICATED Sodium Level 144 MEQ/L Potassium Level 3.1 MEQ/L Chloride Level 107 MEQ/L Carbon Dioxide Level 30.3 MEQ/L Anion Gap 7 MEQ/L Blood Urea Nitrogen 7 MG/DL Creatinine 0.61 MG/DL Estimat Glomerular Filtration 99 ML/MIN Rate Random Glucose 179 MG/DL Calcium Level 7.7 MG/DL Assessment and Plan Problem List: (1) Ulcer of heel and midfoot (2) DM (diabetes mellitus), type 2, uncontrolled w/neurologic complication (3) Hypertension (4) Peripheral vascular occlusive disease (5) Delirium due to another medical condition (6) Impaired mobility and activities of daily living (7) Cardiomyopathy (8) VT (ventricular tachycardia) Assessment and Plan 1) Episodes of VT, known cardiomyopathy... none noted over night for 48 hours... does not want further ischemic evaluation or consideration of ICD for sudden cardiac prevention, EF 35-40% 2) Continue with medical management as possible 3) Would keep electrolytes replaced as this may be the cause 4) For cardiomyopathy, on Coreg, restarted on Valsartan 5) Cardiovascularly stable, will see PRN, call with questions Luc Bernardo DO Jul 30, 2016 09:43
[2016-07-30] MEDS ORDERED: POTASSIUM CHLORIDE 10 MEQ CONTROLLED RELEASE TAB PO ONE ×2 (09:45→14:00)
[2016-07-30] MEDS: cefTRIAXone INJ 1,000 MG in SODIUM CHLORIDE 0.9% INJ 100 ML IV SCH (10:00)
[2016-07-30] MEDS: FLUCONAZOLE 100 MG TAB PO SCH (12:11)
--- NOTE | 2016-07-30 14:02 | HHI.PR ---
Subjective Remarks sleeps all day off and on and looking at sleep chart from the other day she is up all night. Objective Vital Signs Date Time Temp Pulse Resp B/P Pulse Ox O2 Delivery O2 Flow Rate FiO2 07/30/16 12:00 98.5 66 20 139/65 93 07/30/16 09:17 71 07/30/16 08:40 Room Air 07/30/16 08:00 98.3 61 24 120/59 96 07/30/16 07:38 18 07/30/16 04:00 98.5 77 20 147/67 95 07/30/16 00:00 100.1 71 14 159/72 96 07/29/16 20:03 97.8 80 20 146/67 93 07/29/16 20:00 Room Air 07/29/16 19:38 95 21 07/29/16 16:00 98.7 79 20 154/72 98 I/O 07/29/16 07/29/16 07/29/16 07/30/16 07/30/16 07/30/16 07:00 15:00 23:00 07:00 15:00 23:00 Intake Total 1278 ml 730 ml 1234 ml Balance 1278 ml 730 ml 1234 ml Intake Oral 120 ml 120 ml IV Total 1158 ml 730 ml 1114 ml # Voids 2 1 # Bowel Movements 1 1 Result Diagram: 07/30/16 0658 Imaging mri brain no acute findings mod-severe white matter dz eeg mild/moderate slowing no sz's Objective Remarks opens eyes with sternal rub looks at me stated her first name then falls asleep again and willnot follow commands no facial droop ,no slurring of speech perrla oriented to self. motor moves all extremities Assessment and Plan Assessment and Plan encephalopathy ?yohana days and nights backwards -needs to stay awake during the day with stimulation vs giving a sleep aid at night so she will sleep -stay on low dose vpa 250 mg bid -cont medical care for legs Althea Rodriguez MD Jul 30, 2016 14:02
--- NOTE | 2016-07-30 18:07 | PD.PLAS.PN ---
Subjective Remarks Patient on schedule for debridement tomorrow. Explained the removal of all black tissue on both legs and debride the wound The left foot gangrene areas are dry and will be left alone - Vascular surgery to decide how to proceed on these areas Also she is developing another dry gangrene on the 2nd toe plantar aspect on the RIGHT foot - her daughter noted the new area today. Will try to get hyperbaric O2 treatments started after the debridement tomorrow - will be referred to the wound care hyperbaric chamber physician for that. Vital Signs Date Time Temp Pulse Resp B/P Pulse Ox O2 Delivery O2 Flow Rate FiO2 07/30/16 16:00 99.1 73 18 139/63 95 07/30/16 12:00 98.5 66 20 139/65 93 07/30/16 09:17 71 07/30/16 08:40 Room Air 07/30/16 08:00 98.3 61 24 120/59 96 07/30/16 07:38 18 07/30/16 04:00 98.5 77 20 147/67 95 07/30/16 00:00 100.1 71 14 159/72 96 07/29/16 20:03 97.8 80 20 146/67 93 07/29/16 20:00 Room Air 07/29/16 19:38 95 21 I/O 07/29/16 07/29/16 07/29/16 07/30/16 07/30/16 07/30/16 07:00 15:00 23:00 07:00 15:00 23:00 Intake Total 1278 ml 730 ml 1234 ml 1000 ml Balance 1278 ml 730 ml 1234 ml 1000 ml Intake Oral 120 ml 120 ml 1000 ml IV Total 1158 ml 730 ml 1114 ml # Voids 2 1 4 # Bowel Movements 1 1 2 Laboratory Tests Test 07/30/16 07/30/16 05:00 06:58 Urine Color YELLOW Urine Turbidity HAZY Urine pH 5.5 Urine Specific [place] 1.017 Urine Protein 30 Urine Glucose (UA) 300 Urine Ketones NEG Urine Occult Blood SMALL Urine Nitrite NEG Urine Bilirubin NEG Urine Urobilinogen LESS THAN 2.0 Urine Leukocyte Esterase MOD Urine RBC 4 Urine WBC 95 Urine Squamous Epithelial 5 Cells Urine Bacteria OCC Urine Mucus FEW Urine Yeast (Budding) MANY Microscopic Urinalysis Comment CULTURE INDICATED Sodium Level 144 Potassium Level 3.1 Chloride Level 107 Carbon Dioxide Level 30.3 Anion Gap 7 Blood Urea Nitrogen 7 Creatinine 0.61 Estimat Glomerular Filtration 99 Rate Random Glucose 179 Calcium Level 7.7 Date/Time Procedure Status Source Growth 07/30/16 05:00 Urine Culture Received Urine Clean Catch Pending Result Diagram: 07/30/16 0658 Bello Pepe MD Jul 30, 2016 18:07
--- NOTE | 2016-07-30 19:14 | HHI.PR ---
Subjective Remarks 61 YO WF withDM,CMP,DVT,Leg ulcer Weaned to RA No CP,fever or chills MRI, EEG done Much more awake, c/o pain Gets days and nights mixed up Plans for debribement in AM Daughter at Objective Vital Signs Vital Signs Date Time Temp Pulse Resp B/P Pulse Ox O2 Delivery O2 Flow Rate FiO2 07/30/16 16:00 99.1 73 18 139/63 95 07/30/16 12:00 98.5 66 20 139/65 93 07/30/16 09:17 71 07/30/16 08:40 Room Air 07/30/16 08:00 98.3 61 24 120/59 96 07/30/16 07:38 18 07/30/16 04:00 98.5 77 20 147/67 95 07/30/16 00:00 100.1 71 14 159/72 96 07/29/16 20:03 97.8 80 20 146/67 93 07/29/16 20:00 Room Air 07/29/16 19:38 95 21 I/O 07/29/16 07/29/16 07/29/16 07/30/16 07/30/16 07/30/16 07:00 15:00 23:00 07:00 15:00 23:00 Intake Total 1278 ml 730 ml 1234 ml 1000 ml Balance 1278 ml 730 ml 1234 ml 1000 ml Intake Oral 120 ml 120 ml 1000 ml IV Total 1158 ml 730 ml 1114 ml # Voids 2 1 4 # Bowel Movements 1 1 2 Result Diagram: 07/30/16 0658 Objective Remarks GENERAL: Obese WF, NAD SKIN: Warm and dry. HEAD: Normocephalic. EYES: No scleral icterus. No injection or drainage. NECK: Supple, trachea midline. No JVD or lymphadenopathy. CARDIOVASCULAR: Regular rate and rhythm without murmurs, gallops, or rubs. RESPIRATORY: Breath sounds equal bilaterally. No accessory muscle use. GASTROINTESTINAL: Abdomen soft, non-tender, nondistended. MUSCULOSKELETAL: No cyanosis, or edema. BACK: Nontender without obvious deformity. No CVA tenderness. A/P Assessment and Plan LIVE likly DM Leg ulcer DVT CMP Encephalopathy PLAN: Will need sleep study as out pt Monitor BS Cont Abx pain controll Will try Melatonin 5 mg at night DW pt and her daughter at BS Lito Harris MD 8, 2017 19:14
[2016-07-30] MEDS: INSULIN DETEMIR 100 UNITS/ML VIAL SQ SCH (22:39)
[2016-07-30] MEDS: VALSARTAN 80 MG TAB PO SCH (22:40)
[2016-07-30] MEDS: MELATONIN 5 MG TAB PO SCH (22:47)
[2016-07-31] VITALS (9 sets, daily range): BP systolic 150–173; BP diastolic 69–79; PULSE 67–76; RESP 16–20; TEMP 97.7–98.8; O2SAT 94–98
[2016-07-31] MEDS: ACETAMINOPHEN/HYDROcodone 325 MG/5 MG TAB PO PRN ×2 (01:09→21:43)
[2016-07-31] MEDS: CHLORHEXIDINE GLUCONATE 2 % 1 PACK (2 CLOTHS) TOP SCH (04:00)
[2016-07-31] MEDS: SODIUM CHLOR 0.9% 1000 ML INJ 1,000 ML IV SCH ×2 (04:54→17:02)
[2016-07-31] MEDS: LEVOTHYROXINE SODIUM 150 MCG TAB PO SCH (05:29)
[2016-07-31] MEDS: HEPARIN SODIUM - SQ 10,000 UNITS/ML VIAL SQ SCH ×3 (05:31→21:34)
[2016-07-31] MEDS: ISOSORBIDE DINITRATE 5 MG TAB PO SCH ×3 (05:32→21:33)
[2016-07-31] MEDS: INSULIN ASPART SUPPLEMENTAL SCALE SQ SCH ×4 (07:00→21:36)
--- NOTE | 2016-07-31 08:15 | HHI.PR ---
Subjective Remarks resting comfortably with no distress. pain is controlled. no fever. d/w the RN and no acute issues over night. Objective Vitals Vital Signs Date Time Temp Pulse Resp B/P Pulse Ox O2 Delivery O2 Flow Rate FiO2 07/31/16 04:00 97.7 67 18 150/73 95 07/31/16 00:00 98.8 76 18 154/69 95 07/30/16 20:45 Room Air 07/30/16 20:00 80 07/30/16 20:00 98.0 78 18 148/67 97 07/30/16 16:00 99.1 73 18 139/63 95 07/30/16 12:00 98.5 66 20 139/65 93 07/30/16 09:17 71 07/30/16 08:40 Room Air I/O 07/30/16 07/30/16 07/30/16 07/31/16 07/31/16 07/31/16 07:00 15:00 23:00 07:00 15:00 23:00 Intake Total 1000 ml 1152 ml 0 ml Balance 1000 ml 1152 ml 0 ml Intake Oral 1000 ml 480 ml 0 ml IV Total 672 ml # Voids 4 0 1 # Bowel Movements 1 2 0 0 Result Diagram: 07/31/16 0635 Imaging Last Impressions Upper Extremity Ultrasound 07/28/16 0000 Signed Impressions: Service Date/Time: Thursday, July 28, 2016 14:34 - CONCLUSION: No DVT is identified within the right upper extremity. Alfredo Eng MD Chest X-Ray 07/20/16 0000 Signed Impressions: Service Date/Time: Wednesday, July 20, 2016 12:38 - CONCLUSION: Mild left base consolidation developing. Alfredo Sneed MD Brain MRI 07/20/16 0000 Signed Impressions: Service Date/Time: Wednesday, July 20, 2016 09:15 - CONCLUSION: No acute intracranial abnormality. Moderately severe chronic white matter changes, nonspecific but most likely small vessel ischemia. Alfredo Sneed MD Head CT 07/19/16 0000 Signed Impressions: Service Date/Time: Tuesday, July 19, 2016 09:58 - CONCLUSION: No acute intracranial findings. João Otoole MD Foot X-Ray 07/16/16 0000 Signed Impressions: Service Date/Time: Wednesday, July 16, 2016 17:34 - CONCLUSION: 1. Nonspecific soft tissue swelling. No acute bone destruction demonstrated. 2. Mild talonavicular and navicular/cuneiform degenerative changes. 3. Second through fifth hammertoe. 4. Moderate-sized heel spur. Alfredo Sneed MD Objective Remarks GENERAL: This is a well-nourished, well-developed patient, in no apparent distress. CARDIOVASCULAR: Regular rate and irregular rhythm without murmurs, gallops, or rubs. RESPIRATORY: Clear to auscultation. Breath sounds equal bilaterally. No wheezes , rales, or rhonchi. GASTROINTESTINAL: Abdomen soft, non-tender, nondistended. Normal, active bowel sounds MUSCULOSKELETAL: both legs covered with clean dressing. NEURO: Alert & Oriented x4 to person, place, time, situation. Moves all ext x4 Medications and IVs Current Medications Sodium Chloride (NS 1000 ml Inj) 1,000 ml @ 84 mls/hr [id number] IV Last administered on 07/31/16 04:54; Start 07/15/16 at 19:42 IV Flush (NS Flush) 2 ml UNSCH PRN IV FLUSH FLUSH AFTER USING IV ACCESS Last administered on 07/24/16 04:49; Start 07/15/16 at 19:45 IV Flush (NS Flush) 2 ml BID IV FLUSH Last administered on 07/30/16 22:41; Start 07/15/16 at 21:00 Fentanyl Citrate (fentaNYL INJ) 50 mcg Q3H PRN IV PUSH Pain scale 7-10 &/or sedation Last administered on 07/15/16 21:44; Start 07/15/16 at 19:45; Stop at 11:51; Status DC Famotidine (Pepcid Inj) 20 mg Q12HR IV PUSH Last administered on 07/15/16 20: 19; Start 07/15/16 at 21:00; Stop 07/15/16 at 21:24; Status DC Ondansetron HCl (Zofran Inj) 4 mg Q6H PRN IV NAUSEA OR VOMITING Last administered on 07/17/16 17:45; Start 07/15/16 at 19:45 Metoclopramide HCl (Reglan Inj) 5 mg Q6H PRN IV NAUSEA OR VOMITING; Start 07/15 at 19:45 Docusate Sodium (Colace) 100 mg BID PO Last administered on 07/30/16 22:40; Start 07/15/16 at 21:00 Albuterol/ Ipratropium (Duoneb Neb) 1 ampule Q2HR NEB PRN INH WHEEZING; Start 07/15/16 at 19:45 Heparin Sodium (Porcine) (Heparin Inj) 5,000 units Q8HR SQ Last administered on 07/31/16 05:31; Start 07/15/16 at 22:00 Miscellaneous Information 1 Q361D XX Last administered on 07/15/16 19:45; Start 07/15/16 at 19:45 Chlorhexidine Gluconate (Chlorhexidine 2% Cloth) Taper DAILY@04 TOP Last administered on 07/17/16 03:11; Start 07/16/16 at 04:00; Stop 07/12/17 at 03:59 Chlorhexidine Gluconate (Chlorhexidine 2% Cloth) 3 pack UNSCH PRN TOP HYGIENIC CARE; Start 07/15/16 at 19:45 Acetaminophen (Ofirmev Inj) 1,000 mg Q6H PRN IV PAIN SCALE 1 TO 6; Start at 20:00; Stop 07/18/16 at 11:51; Status DC Ketorolac Tromethamine (Toradol Inj) 30 mg Q6H PRN IM PAIN SCALE 1 TO 7; Start 07/15/16 at 20:00; Stop 07/15/16 at 20:10; Status DC Ketorolac Tromethamine (Toradol Inj) 30 mg Q6H PRN IV PUSH PAIN 1-6 Last administered on 07/15/16 20:34; Start 07/15/16 at 20:15; Stop 07/18/16 at 11:51 ; Status DC Carvedilol (Coreg) 25 mg BID PO Last administered on 07/30/16 22:40; Start at 21:00 Fluconazole (Diflucan) 75 mg DAILY@17 PO Last administered on 07/16/16 17:03; Start 07/16/16 at 17:00; Stop 07/17/16 at 08:09; Status DC Isosorbide Dinitrate (Isordil) 5 mg Q8HR PO Last administered on 07/31/16 05:32 ; Start 07/15/16 at 22:00 Lactobacillus Acidophilus (Lactinex) 1 tab TID PO Last administered on 17:04; Start 07/16/16 at 09:00 Levofloxacin (Levaquin) 250 mg Q48H PO Last administered on 07/21/16 21:05; Start 07/15/16 at 22:00; Stop 07/23/16 at 16:37; Status DC Levothyroxine Sodium (Synthroid) 150 mcg DAILY@06 PO Last administered on 05:29; Start 07/16/16 at 06:00 Liothyronine Sodium (Cytomel) 5 mcg DAILY PO Last administered on 07/30/16 08: 42; Start 07/16/16 at 09:00 Non-Formulary Medication 325 mg DAILY PO ; Start 07/16/16 at 09:00; Status UNV Miscellaneous (Pill Splitter) 1 ea UNSCH PRN OTHER SEE LABEL COMMENTS; Start at 21:30 Famotidine (Pepcid Inj) 10 mg Q12HR IV PUSH Last administered on 07/17/16 07: 29; Start 07/16/16 at 09:00; Stop 07/18/16 at 10:59; Status DC Aspirin (Ecotrin Ec) 325 mg DAILY PO Last administered on 07/30/16 08:43; Start 07/16/16 at 09:00 Etomidate (Amidate Inj) 20 mg STK-MED ONCE .ROUTE ; Start 07/16/16 at 17:07; Stop 07/16/16 at 17:08; Status DC Famotidine (Pepcid Inj) 20 mg Q12HR IV PUSH Last administered on 07/30/16 22:41 ; Start 07/18/16 at 21:00 Hydromorphone HCl (Dilaudid Pf Inj) 0.5 mg ONCE ONCE IV PUSH ; Start 07/18/16 at 11:45; Stop 07/18/16 at 11:46; Status DC Hydromorphone HCl (Dilaudid Pf Inj) 0.5 mg Q4H PRN IV PUSH breakthrough pain / dresing lori Last administered on 07/29/16 10:22; Start 07/18/16 at 11:45 Acetaminophen/ Hydrocodone Bitart ([place] 5-325 Mg) 1 tab Q6H PRN PO pain 2-10 Last administered on 07/31/16 01:09; Start 07/18/16 at 11:45 Diphenhydramine HCl 50 mg 50 mg STK-MED ONCE .ROUTE ; Start 07/19/16 at 11:20; Stop 07/19/16 at 11:21; Status DC Levetriacetam/ Sodium Chloride (Keppra Inj/NS Inj) 105 ml @ 420 mls/hr Q12HR IV Last administered on 07/20/16 08:19; Start 07/19/16 at 13:00; Stop at 16:25; Status DC Haloperidol Lactate (Haldol Inj) 2 mg Q6H PRN IM aggittation Last administered on 07/30/16 01:29; Start 07/19/16 at 12:30; Status Hold Lorazepam 1 mg 1 mg Q6H PRN IV PUSH seizures/agiatation Last administered on 06:09; Start 07/19/16 at 12:30; Status Hold Valproate Sodium 500 mg/Sodium Chloride 105 ml @ 105 mls/hr Q8H IV Last administered on 07/25/16 09:26; Start 07/20/16 at 18:00; Stop 07/25/16 at 09:54; Status DC Cefepime HCl/ Sodium Chloride (Maxipime Inj/NS Inj) 100 ml @ 200 mls/hr Q12H IV Last administered on 07/27/16 02:43; Start 07/21/16 at 15:00; Stop 07/27/16 at 09:00; Status DC Dextrose (D50w (Vial) Inj) 25 ml UNSCH PRN IV PUSH HYPOGLYCEMIA-SEE COMMENTS; Start 07/23/16 at 11:00 Glucagon (Glucagon Inj) 1 mg UNSCH PRN OTHER HYPOGLYCEMIA-SEE COMMENTS; Start 07/23/16 at 11:00 Insulin Aspart (NovoLOG SUPPLEMENTAL SCALE) 1 ACHS SLIDING SCALE SQ Last administered on 07/30/16 22:40; Start 07/23/16 at 11:00 Potassium Chloride (KCl) 40 meq ONCE ONCE PO Last administered on 07/24/16 13: 00; Start 07/24/16 at 13:00; Stop 07/24/16 at 13:01; Status DC Valproic Acid (Depakene) 500 mg Q8HR PO Last administered on 07/26/16 14:52; Start 07/25/16 at 15:00; Stop 07/26/16 at 17:39; Status DC Potassium Chloride (KCl) 30 meq ONCE ONCE PO Last administered on 07/26/16 19: 30; Start 07/26/16 at 16:30; Stop 07/26/16 at 16:36; Status DC Potassium Chloride (KCl) 30 meq ONCE ONCE PO Last administered on 07/26/16 22: 16; Start 07/26/16 at 20:00; Stop 07/26/16 at 20:01; Status DC Valproic Acid (Depakene) 250 mg Q12HR PO Last administered on 07/30/16 22:41; Start 07/27/16 at 09:00 Hydromorphone HCl (Dilaudid Pf Inj) 0.5 mg ONCE ONCE IV PUSH Last administered on 07/27/16 10:42; Start 07/27/16 at 10:45; Stop 07/27/16 at 10:46; Status DC Valsartan (Diovan) 80 mg HS PO Last administered on 07/30/16 22:40; Start at 21:00 Enalaprilat (Vasotec Inj) 1.25 mg Q8H PRN IV PUSH SBP >180 OR DBP >100; Start 07/28/16 at 16:00 Fluconazole 100 mg 100 mg DAILY PO Last administered on 07/30/16 12:11; Start 07/30/16 at 09:45 Ceftriaxone Sodium/Sodium Chloride (Rocephin Inj/NS Inj) 100 ml @ 200 mls/hr Q24H IV Last administered on 07/30/16 10:00; Start 07/30/16 at 10:00 Potassium Chloride (KCl) 30 meq ONCE ONCE PO Last administered on 07/30/16 12: 12; Start 07/30/16 at 09:45; Stop 07/30/16 at 09:53; Status DC Potassium Chloride (KCl) 30 meq ONCE ONCE PO Last administered on 07/30/16 14: 00; Start 07/30/16 at 14:00; Stop 07/30/16 at 14:01; Status DC Insulin Detemir (Levemir Inj) 5 units HS SQ Last administered on 07/30/16 22:39 ; Start 07/30/16 at 21:00 Melatonin (Melatonin) 5 mg HS PO Last administered on 07/30/16 22:47; Start 07/30/16 at 21:00 A/P Assessment and Plan A/P Respiratory Failure - resolved Nebs scheduled, PRN May need CPAP at night Pulmonology Consulted, need sleep study as OP Altered mental status Poss Metabolic toxic encephalopathy- improved Possible seizure. EEG with possible seizure - Hold all medications that could contribute. Hold anxiolytics and narcotic MRI brain with no acute abnormality. dc'ed Keppra and started on Depakote per neurology; decreased the dose due to worsening confusion. neurology follow-up appreciated. Psychosis. Consulted psychiatry. Peripheral vascular disease - Supportive care. Wound Care. - Pain control - F/U with vascular surgeon Diabetes - resumed levemir. - Insulin sliding scale for now. Cardiomyopathy - Coreg - Isosorbide -Diovan - Monitor BP Trend Hypothyroidism - TSH 9.150 - Synthroid 150mcg daily, check freeT4, may also be related to recent acute illness. Recheck in 4 weeks. Bilteral LE Cellulitis/ wounds Continue dressing changes per Dr Valdes podiatry recommendation. evaluated by - no further procedures planned at this time. consulted plastic surgery per 's recommendation; plan for debridement in OR. V-tach with EF 35%- continue BB- consulted cardiology; patient declined further work-up- continue medical management.previosult d/w ; cardiology will see prn- abnormal UA- possibel UTI- started Rocephin and follow the UC. Hyponatremia - resolved- hypokalemia; replaced. anemia of chronic disease; will monitor periodically. DVT GI prophylaxis - Heparin and Pepcid Discharge Planning not ready for discharge. Conrad Clancy MD Jul 31, 2016 08:15
[2016-07-31] MEDS: SODIUM CHLORIDE 0.9% FLUSH 5 ML FLUSH IV FLUSH SCH ×2 (08:24→21:34)
[2016-07-31] MEDS: FAMOTIDINE 20 MG/2 ML VIAL IV PUSH SCH ×2 (08:25→21:34)
[2016-07-31] MEDS: CARVEDILOL 12.5 MG TAB PO SCH ×2 (08:25→21:33)
[2016-07-31] MEDS: VALPROIC ACID 250 MG CAP PO SCH ×2 (08:26→21:33)
[2016-07-31] MEDS: FLUCONAZOLE 100 MG TAB PO SCH (08:26)
[2016-07-31] MEDS: ASPIRIN EC 325 MG TABEC PO SCH (08:26)
[2016-07-31] MEDS: LIOTHYRONINE SODIUM 5 MCG TAB PO SCH (08:26)
[2016-07-31] MEDS: LACTOBACILLUS ACIDOPHILUS TAB PO SCH ×3 (08:26→17:24)
[2016-07-31] MEDS: DOCUSATE SODIUM 100 MG CAP PO SCH ×2 (08:26→21:33)
[2016-07-31] MEDS: cefTRIAXone INJ 1,000 MG in SODIUM CHLORIDE 0.9% INJ 100 ML IV SCH (08:37)
[2016-07-31] MEDS ORDERED: BUPIVACAINE/EPINEPHRINE 0.5% 50 ML VIAL ONE (10:12)
[2016-07-31] MEDS ORDERED: BACITRACIN TOP OINT 15 GM TUBE ONE (10:12)
[2016-07-31] MEDS ORDERED: BUPIVACAINE HCL PF 0.5% 30 ML VIAL ONE (10:12)
[2016-07-31] MEDS ORDERED: DEXAMETHASONE SOD PHOS 4 MG/ML VIAL ONE (10:22)
[2016-07-31] MEDS ORDERED: FAMOTIDINE 20 MG/2 ML VIAL IV PUSH ONE (10:23)
[2016-07-31] MEDS ORDERED: fentaNYL CITRATE 250 MCG/5 ML AMP ONE (12:13)
[2016-07-31] MEDS ORDERED: ePHEDrine/NS 25 MG/5 ML SYR IV ONE (12:42)
[2016-07-31] MEDS ORDERED: ONDANSETRON HCL 4 MG/2 ML VIAL IV PUSH ONE (12:42)
[2016-07-31] MEDS ORDERED: PHENYLEPH/NS 1000 MCG/10 ML SYR IV ONE (12:42)
[2016-07-31] MEDS ORDERED: PROPOFOL 200 MG/20 ML AMP IV ONE (12:42)
[2016-07-31] MEDS: ONDANSETRON HCL 4 MG/2 ML VIAL IV PRN (13:23)
[2016-07-31] MEDS ORDERED: DO NOT ADM ANY ANTICOAGULANT DRUGS XX PRN (13:30)
[2016-07-31] MEDS ORDERED: SODIUM CHLORIDE 0.9% IRRIGATION PRN (13:30)
[2016-07-31] MEDS ORDERED: IRR IRRIGATION PRN (13:30)
[2016-07-31] MEDS ORDERED: GENTAMICIN IRRIGATION PRN (13:30)
--- NOTE | 2016-07-31 17:23 | HHI.PR ---
Subjective Remarks 61 YO WF withDM,CMP,DVT,Leg ulcer Weaned to RA No CP,fever or chills MRI, EEG done Had Debribement done had Pain meds, sleeping at BS Objective Vital Signs Vital Signs Date Time Temp Pulse Resp B/P Pulse Ox O2 Delivery O2 Flow Rate FiO2 07/31/16 16:00 98.4 70 18 154/77 94 07/31/16 13:00 98.7 67 16 163/75 96 07/31/16 12:45 97.9 68 12 156/81 96 Room Air 07/31/16 12:30 63 12 160/81 96 Room Air 07/31/16 12:15 64 12 171/87 95 Room Air 07/31/16 12:00 67 12 178/88 100 Room Air 07/31/16 11:50 97.9 66 12 177/94 100 Nasal Cannula 4 07/31/16 08:20 Room Air 07/31/16 08:04 72 07/31/16 08:00 98.0 73 16 173/79 95 07/31/16 04:00 97.7 67 18 150/73 95 07/31/16 00:00 98.8 76 18 154/69 95 07/30/16 20:45 Room Air 07/30/16 20:00 80 07/30/16 20:00 98.0 78 18 148/67 97 I/O 07/30/16 07/30/16 07/30/16 07/31/16 07/31/16 07/31/16 07:00 15:00 23:00 07:00 15:00 23:00 Intake Total 1000 ml 1152 ml 0 ml 1793 ml Output Total 350 ml Balance 1000 ml 1152 ml 0 ml 1443 ml Intake Oral 1000 ml 480 ml 0 ml 0 ml IV Total 672 ml 1443 ml Other 350 ml Output Urine Total 300 ml Estimated Blood Loss 50 ml # Voids 4 0 1 # Bowel Movements 1 2 0 0 0 Result Diagram: 07/31/16 0635 Objective Remarks GENERAL: Obese WF, NAD SKIN: Warm and dry. HEAD: Normocephalic. EYES: No scleral icterus. No injection or drainage. NECK: Supple, trachea midline. No JVD or lymphadenopathy. CARDIOVASCULAR: Regular rate and rhythm without murmurs, gallops, or rubs. RESPIRATORY: Breath sounds equal bilaterally. No accessory muscle use. GASTROINTESTINAL: Abdomen soft, non-tender, nondistended. MUSCULOSKELETAL: No cyanosis, or edema. BACK: Nontender without obvious deformity. No CVA tenderness. A/P Assessment and Plan LIVE likly DM Leg ulcer DVT CMP Encephalopathy PLAN: Will need sleep study as out pt Monitor BS Cont Abx pain controll Will try Melatonin 5 mg at night Lito Harris MD Jul 31, 2016 17:23
[2016-07-31] MEDS: MELATONIN 5 MG TAB PO SCH (21:33)
[2016-07-31] MEDS: VALSARTAN 80 MG TAB PO SCH (21:33)
[2016-07-31] MEDS: INSULIN DETEMIR 100 UNITS/ML VIAL SQ SCH (21:36)
[2016-08-01] VITALS (8 sets, daily range): BP systolic 121–176; BP diastolic 50–75; PULSE 67–76; RESP 17–20; TEMP 98.1–99.5; O2SAT 93–97
[2016-08-01] MEDS: CHLORHEXIDINE GLUCONATE 2 % 1 PACK (2 CLOTHS) TOP SCH (03:01)
[2016-08-01] MEDS: ISOSORBIDE DINITRATE 5 MG TAB PO SCH ×3 (05:05→23:05)
[2016-08-01] MEDS: HEPARIN SODIUM - SQ 10,000 UNITS/ML VIAL SQ SCH ×3 (05:06→23:05)
[2016-08-01] MEDS: LEVOTHYROXINE SODIUM 150 MCG TAB PO SCH (05:06)
[2016-08-01] MEDS: ACETAMINOPHEN/HYDROcodone 325 MG/5 MG TAB PO PRN (05:06)
[2016-08-01] MEDS: SODIUM CHLOR 0.9% 1000 ML INJ 1,000 ML IV SCH ×2 (05:10→09:46)
[2016-08-01] MEDS: INSULIN ASPART SUPPLEMENTAL SCALE SQ SCH ×4 (06:13→23:03)
[2016-08-01] MEDS: DOCUSATE SODIUM 100 MG CAP PO SCH ×2 (09:00→23:05)
[2016-08-01] MEDS: cefTRIAXone INJ 1,000 MG in SODIUM CHLORIDE 0.9% INJ 100 ML IV SCH (09:45)
[2016-08-01] MEDS: ASPIRIN EC 325 MG TABEC PO SCH (09:46)
[2016-08-01] MEDS: LIOTHYRONINE SODIUM 5 MCG TAB PO SCH (09:47)
[2016-08-01] MEDS: FLUCONAZOLE 100 MG TAB PO SCH (09:47)
[2016-08-01] MEDS: VALPROIC ACID 250 MG CAP PO SCH ×2 (09:47→23:05)
[2016-08-01] MEDS: FAMOTIDINE 20 MG/2 ML VIAL IV PUSH SCH ×2 (09:48→23:05)
[2016-08-01] MEDS: CARVEDILOL 12.5 MG TAB PO SCH ×2 (09:48→23:06)
[2016-08-01] MEDS: SODIUM CHLORIDE 0.9% FLUSH 5 ML FLUSH IV FLUSH SCH ×2 (09:48→23:06)
[2016-08-01] MEDS: LACTOBACILLUS ACIDOPHILUS TAB PO SCH ×3 (09:48→17:30)
--- NOTE | 2016-08-01 11:26 | HHI.PR ---
Subjective Remarks 61 YO WF withDM,CMP,DVT,Leg ulcer Weaned to RA No CP,fever or chills MRI, EEG done Alert, awake, pain much better controlled at BS " Food here is unhealthy, i want to go home as soon as possible" Objective Vital Signs Vital Signs Date Time Temp Pulse Resp B/P Pulse Ox O2 Delivery O2 Flow Rate FiO2 08/01/16 08:11 99.5 68 20 121/50 97 08/01/16 07:55 93 08/01/16 07:15 Room Air 08/01/16 04:00 98.2 76 20 146/65 97 08/01/16 00:00 98.7 73 20 158/67 93 07/31/16 20:15 Room Air 07/31/16 20:02 74 07/31/16 20:01 98 21 07/31/16 20:00 98.7 75 20 164/72 96 07/31/16 16:00 98.4 70 18 154/77 94 07/31/16 13:00 98.7 67 16 163/75 96 07/31/16 12:45 97.9 68 12 156/81 96 Room Air 07/31/16 12:30 63 12 160/81 96 Room Air 07/31/16 12:15 64 12 171/87 95 Room Air 07/31/16 12:00 67 12 178/88 100 Room Air 07/31/16 11:50 97.9 66 12 177/94 100 Nasal Cannula 4 I/O 07/31/16 07/31/16 07/31/16 08/01/16 08/01/16 08/01/16 07:00 15:00 23:00 07:00 15:00 23:00 Intake Total 0 ml 1793 ml 240 ml 240 ml Output Total 350 ml 750 ml 450 ml Balance 0 ml 1443 ml -510 ml -210 ml Intake Oral 0 ml 0 ml 240 ml 240 ml IV Total 1443 ml Other 350 ml Output Urine Total 300 ml 750 ml 450 ml Estimated Blood Loss 50 ml # Voids 1 # Bowel Movements 0 0 0 Result Diagram: 07/31/16 0635 Objective Remarks GENERAL: Obese WF, NAD SKIN: Warm and dry. HEAD: Normocephalic. EYES: No scleral icterus. No injection or drainage. NECK: Supple, trachea midline. No JVD or lymphadenopathy. CARDIOVASCULAR: Regular rate and rhythm without murmurs, gallops, or rubs. RESPIRATORY: Breath sounds equal bilaterally. No accessory muscle use. GASTROINTESTINAL: Abdomen soft, non-tender, nondistended. MUSCULOSKELETAL: No cyanosis, or edema. BACK: Nontender without obvious deformity. No CVA tenderness. A/P Assessment and Plan LIVE likly DM Leg ulcer DVT CMP Encephalopathy PLAN: Will need sleep study as out pt Monitor BS Cont Abx pain controll Will try Melatonin 5 mg at night DW at BS, try to keep her awake during day time Lito Harris MD Aug 01, 2016 11:25
--- NOTE | 2016-08-01 11:58 | HHI.PR ---
Subjective Remarks in no acute distress. pain seems to be controlled. d/w the RN. Objective Vitals Vital Signs Date Time Temp Pulse Resp B/P Pulse Ox O2 Delivery O2 Flow Rate FiO2 08/01/16 08:11 99.5 68 20 121/50 97 08/01/16 07:55 93 08/01/16 07:15 Room Air 08/01/16 04:00 98.2 76 20 146/65 97 08/01/16 00:00 98.7 73 20 158/67 93 07/31/16 20:15 Room Air 07/31/16 20:02 74 07/31/16 20:01 98 21 07/31/16 20:00 98.7 75 20 164/72 96 07/31/16 16:00 98.4 70 18 154/77 94 07/31/16 13:00 98.7 67 16 163/75 96 07/31/16 12:45 97.9 68 12 156/81 96 Room Air 07/31/16 12:30 63 12 160/81 96 Room Air 07/31/16 12:15 64 12 171/87 95 Room Air 07/31/16 12:00 67 12 178/88 100 Room Air I/O 07/31/16 07/31/16 07/31/16 08/01/16 08/01/16 08/01/16 07:00 15:00 23:00 07:00 15:00 23:00 Intake Total 0 ml 1793 ml 240 ml 240 ml Output Total 350 ml 750 ml 450 ml Balance 0 ml 1443 ml -510 ml -210 ml Intake Oral 0 ml 0 ml 240 ml 240 ml IV Total 1443 ml Other 350 ml Output Urine Total 300 ml 750 ml 450 ml Estimated Blood Loss 50 ml # Voids 1 # Bowel Movements 0 0 0 Result Diagram: 07/31/16 0635 Imaging Last Impressions Upper Extremity Ultrasound 07/28/16 0000 Signed Impressions: Service Date/Time: Thursday, July 28, 2016 14:34 - CONCLUSION: No DVT is identified within the right upper extremity. Alfredo Eng MD Chest X-Ray 07/20/16 0000 Signed Impressions: Service Date/Time: Wednesday, July 20, 2016 12:38 - CONCLUSION: Mild left base consolidation developing. Alfredo Sneed MD Brain MRI 07/20/16 0000 Signed Impressions: Service Date/Time: Wednesday, July 20, 2016 09:15 - CONCLUSION: No acute intracranial abnormality. Moderately severe chronic white matter changes, nonspecific but most likely small vessel ischemia. Alfredo Sneed MD Head CT 07/19/16 0000 Signed Impressions: Service Date/Time: Tuesday, July 19, 2016 09:58 - CONCLUSION: No acute intracranial findings. João Otoole MD Foot X-Ray 07/16/16 0000 Signed Impressions: Service Date/Time: Saturday, July 16, 2016 17:34 - CONCLUSION: 1. Nonspecific soft tissue swelling. No acute bone destruction demonstrated. 2. Mild talonavicular and navicular/cuneiform degenerative changes. 3. Second through fifth hammertoe. 4. Moderate-sized heel spur. Alfredo Sneed MD Objective Remarks GENERAL: This is a well-nourished, well-developed patient, in no apparent distress. CARDIOVASCULAR: Regular rate and irregular rhythm without murmurs, gallops, or rubs. RESPIRATORY: Clear to auscultation. Breath sounds equal bilaterally. No wheezes , rales, or rhonchi. GASTROINTESTINAL: Abdomen soft, non-tender, nondistended. Normal, active bowel sounds MUSCULOSKELETAL: both legs covered with clean dressing. NEURO: Alert & Oriented x4 to person, place, time, situation. Moves all ext x4 Procedures debridement of both leg wounds Medications and IVs Current Medications Sodium Chloride (NS 1000 ml Inj) 1,000 ml @ 84 mls/hr [id number] IV Last administered on 08/01/16 09:46; Start 07/15/16 at 19:42 IV Flush (NS Flush) 2 ml UNSCH PRN IV FLUSH FLUSH AFTER USING IV ACCESS Last administered on 07/24/16 04:49; Start 07/15/16 at 19:45 IV Flush (NS Flush) 2 ml BID IV FLUSH Last administered on 08/01/16 09:48; Start 07/15/16 at 21:00 Fentanyl Citrate (fentaNYL INJ) 50 mcg Q3H PRN IV PUSH Pain scale 7-10 &/or sedation Last administered on 07/15/16 21:44; Start 07/15/16 at 19:45; Stop at 11:51; Status DC Famotidine (Pepcid Inj) 20 mg Q12HR IV PUSH Last administered on 07/15/16 20: 19; Start 07/15/16 at 21:00; Stop 07/15/16 at 21:24; Status DC Ondansetron HCl (Zofran Inj) 4 mg Q6H PRN IV NAUSEA OR VOMITING Last administered on 07/31/16 13:23; Start 07/15/16 at 19:45 Metoclopramide HCl (Reglan Inj) 5 mg Q6H PRN IV NAUSEA OR VOMITING; Start 07/15 at 19:45 Docusate Sodium (Colace) 100 mg BID PO Last administered on 08/01/16 09:00; Start 07/15/16 at 21:00 Albuterol/ Ipratropium (Duoneb Neb) 1 ampule Q2HR NEB PRN INH WHEEZING; Start 07/15/16 at 19:45 Heparin Sodium (Porcine) (Heparin Inj) 5,000 units Q8HR SQ Last administered on 08/01/16 05:06; Start 07/15/16 at 22:00 Miscellaneous Information 1 [id number] XX Last administered on 07/15/16 19:45; Start 07/15/16 at 19:45 Chlorhexidine Gluconate (Chlorhexidine 2% Cloth) Taper DAILY@04 TOP Last administered on 07/17/16 03:11; Start 07/16/16 at 04:00; Stop 07/12/17 at 03:59 Chlorhexidine Gluconate (Chlorhexidine 2% Cloth) 3 pack UNSCH PRN TOP HYGIENIC CARE; Start 07/15/16 at 19:45 Acetaminophen (Ofirmev Inj) 1,000 mg Q6H PRN IV PAIN SCALE 1 TO 6; Start at 20:00; Stop 07/18/16 at 11:51; Status DC Ketorolac Tromethamine (Toradol Inj) 30 mg Q6H PRN IM PAIN SCALE 1 TO 7; Start 07/15/16 at 20:00; Stop 07/15/16 at 20:10; Status DC Ketorolac Tromethamine (Toradol Inj) 30 mg Q6H PRN IV PUSH PAIN 1-6 Last administered on 07/15/16 20:34; Start 07/15/16 at 20:15; Stop 07/18/16 at 11:51 ; Status DC Carvedilol (Coreg) 25 mg BID PO Last administered on 08/01/16 09:48; Start at 21:00 Fluconazole (Diflucan) 75 mg DAILY@17 PO Last administered on 07/16/16 17:03; Start 07/16/16 at 17:00; Stop 07/17/16 at 08:09; Status DC Isosorbide Dinitrate (Isordil) 5 mg Q8HR PO Last administered on 08/01/16 05: 05; Start 07/15/16 at 22:00 Lactobacillus Acidophilus (Lactinex) 1 tab TID PO Last administered on 09:48; Start 07/16/16 at 09:00 Levofloxacin (Levaquin) 250 mg Q48H PO Last administered on 07/21/16 21:05; Start 07/15/16 at 22:00; Stop 07/23/16 at 16:37; Status DC Levothyroxine Sodium (Synthroid) 150 mcg DAILY@06 PO Last administered on 05:06; Start 07/16/16 at 06:00 Liothyronine Sodium (Cytomel) 5 mcg DAILY PO Last administered on 08/01/16 09: 47; Start 07/16/16 at 09:00 Non-Formulary Medication 325 mg DAILY PO ; Start 07/16/16 at 09:00; Status UNV Miscellaneous (Pill Splitter) 1 ea UNSCH PRN OTHER SEE LABEL COMMENTS; Start at 21:30 Famotidine (Pepcid Inj) 10 mg Q12HR IV PUSH Last administered on 07/17/16 07: 29; Start 07/16/16 at 09:00; Stop 07/18/16 at 10:59; Status DC Aspirin (Ecotrin Ec) 325 mg DAILY PO Last administered on 08/01/16 09:46; Start 07/16/16 at 09:00 Etomidate (Amidate Inj) 20 mg STK-MED ONCE .ROUTE ; Start 07/16/16 at 17:07; Stop 07/16/16 at 17:08; Status DC Famotidine (Pepcid Inj) 20 mg Q12HR IV PUSH Last administered on 08/01/16 09: 48; Start 07/18/16 at 21:00 Hydromorphone HCl (Dilaudid Pf Inj) 0.5 mg ONCE ONCE IV PUSH ; Start 07/18/16 at 11:45; Stop 07/18/16 at 11:46; Status DC Hydromorphone HCl (Dilaudid Pf Inj) 0.5 mg Q4H PRN IV PUSH breakthrough pain / dresing lori Last administered on 07/29/16 10:22; Start 07/18/16 at 11:45 Acetaminophen/ Hydrocodone Bitart ([place] 5-325 Mg) 1 tab Q6H PRN PO pain 2-10 Last administered on 08/01/16 05:06; Start 07/18/16 at 11:45 Diphenhydramine HCl 50 mg 50 mg STK-MED ONCE .ROUTE ; Start 07/19/16 at 11:20; Stop 07/19/16 at 11:21; Status DC Levetriacetam/ Sodium Chloride (Keppra Inj/NS Inj) 105 ml @ 420 mls/hr Q12HR IV Last administered on 07/20/16 08:19; Start 07/19/16 at 13:00; Stop at 16:25; Status DC Haloperidol Lactate (Haldol Inj) 2 mg Q6H PRN IM aggittation Last administered on 07/30/16 01:29; Start 07/19/16 at 12:30; Status Hold Lorazepam 1 mg 1 mg Q6H PRN IV PUSH seizures/agiatation Last administered on 06:09; Start 07/19/16 at 12:30; Status Hold Valproate Sodium 500 mg/Sodium Chloride 105 ml @ 105 mls/hr Q8H IV Last administered on 07/25/16 09:26; Start 07/20/16 at 18:00; Stop 07/25/16 at 09:54; Status DC Cefepime HCl/ Sodium Chloride (Maxipime Inj/NS Inj) 100 ml @ 200 mls/hr Q12H IV Last administered on 07/27/16 02:43; Start 07/21/16 at 15:00; Stop 07/27/16 at 09:00; Status DC Dextrose (D50w (Vial) Inj) 25 ml UNSCH PRN IV PUSH HYPOGLYCEMIA-SEE COMMENTS; Start 07/23/16 at 11:00 Glucagon (Glucagon Inj) 1 mg UNSCH PRN OTHER HYPOGLYCEMIA-SEE COMMENTS; Start 07/23/16 at 11:00 Insulin Aspart (NovoLOG SUPPLEMENTAL SCALE) 1 ACHS SLIDING SCALE SQ Last administered on 07/31/16 21:36; Start 07/23/16 at 11:00 Potassium Chloride (KCl) 40 meq ONCE ONCE PO Last administered on 07/24/16 13: 00; Start 07/24/16 at 13:00; Stop 07/24/16 at 13:01; Status DC Valproic Acid (Depakene) 500 mg Q8HR PO Last administered on 07/26/16 14:52; Start 07/25/16 at 15:00; Stop 07/26/16 at 17:39; Status DC Potassium Chloride (KCl) 30 meq ONCE ONCE PO Last administered on 07/26/16 19: 30; Start 07/26/16 at 16:30; Stop 07/26/16 at 16:36; Status DC Potassium Chloride (KCl) 30 meq ONCE ONCE PO Last administered on 07/26/16 22: 16; Start 07/26/16 at 20:00; Stop 07/26/16 at 20:01; Status DC Valproic Acid (Depakene) 250 mg Q12HR PO Last administered on 08/01/16 09:47; Start 07/27/16 at 09:00 Hydromorphone HCl (Dilaudid Pf Inj) 0.5 mg ONCE ONCE IV PUSH Last administered on 07/27/16 10:42; Start 07/27/16 at 10:45; Stop 07/27/16 at 10:46; Status DC Valsartan (Diovan) 80 mg HS PO Last administered on 07/31/16 21:33; Start at 21:00 Enalaprilat (Vasotec Inj) 1.25 mg Q8H PRN IV PUSH SBP >180 OR DBP >100; Start 07/28/16 at 16:00 Fluconazole 100 mg 100 mg DAILY PO Last administered on 08/01/16 09:47; Start 07/30/16 at 09:45 Ceftriaxone Sodium/Sodium Chloride (Rocephin Inj/NS Inj) 100 ml @ 200 mls/hr Q24H IV Last administered on 08/01/16 09:45; Start 07/30/16 at 10:00 Potassium Chloride (KCl) 30 meq ONCE ONCE PO Last administered on 07/30/16 12: 12; Start 07/30/16 at 09:45; Stop 07/30/16 at 09:53; Status DC Potassium Chloride (KCl) 30 meq ONCE ONCE PO Last administered on 07/30/16 14: 00; Start 07/30/16 at 14:00; Stop 07/30/16 at 14:01; Status DC Insulin Detemir (Levemir Inj) 5 units HS SQ Last administered on 07/31/16 21:36 ; Start 07/30/16 at 21:00 Melatonin (Melatonin) 5 mg HS PO Last administered on 07/31/16 21:33; Start 07/30/16 at 21:00 Bupivacaine HCl (Marcaine Pf 0.5% Inj) 30 ml STK-MED ONCE .ROUTE ; Start at 10:12; Stop 07/31/16 at 10:13; Status DC Bupivacaine HCl/ Epinephrine Bitart (Sensorcaine-Epi 0.5% 50 ml Inj) 50 ml STK- MED ONCE .ROUTE ; Start 07/31/16 at 10:12; Stop 07/31/16 at 10:13; Status DC Bacitracin (Baciguent Oint) 15 applic STK-MED ONCE .ROUTE ; Start 07/31/16 at 10: 12; Stop 07/31/16 at 10:13; Status DC Dexamethasone Sodium Phosphate (Decadron Inj) 4 mg STK-MED ONCE .ROUTE Last administered on 07/31/16 10:24; Start 07/31/16 at 10:22; Stop 07/31/16 at 10:23; Status DC Famotidine (Pepcid Inj) 20 mg STK-MED ONCE IV PUSH Last administered on 10:23; Start 07/31/16 at 10:23; Stop 07/31/16 at 10:27; Status DC Fentanyl Citrate 500 mcg 500 mcg STK-MED ONCE .ROUTE ; Start 07/31/16 at 12:13; Stop 07/31/16 at 12:14; Status DC Gentamicin Sulfate/Sodium Chloride (Gentamicin Inj/ NS Irr Btl) 1,005 ml @ 0 mls/hr UNSCH PRN IRRIGATION DRESSING CHANGES; Start 07/31/16 at 13:30 Miscellaneous Information ALL NURSING DEPARTME... UNSCH PRN XX SEE LABEL COMMENTS; Start 07/31/16 at 13:30; Stop 08/01/16 at 13:29 A/P Assessment and Plan A/P Respiratory Failure - resolved Nebs scheduled, PRN May need CPAP at night Pulmonology Consulted, need sleep study as OP Altered mental status Poss Metabolic toxic encephalopathy- improved Possible seizure. EEG with possible seizure - Hold all medications that could contribute. Hold anxiolytics and narcotic MRI brain with no acute abnormality. dc'ed Keppra and started on Depakote per neurology; decreased the dose due to worsening confusion. neurology follow-up appreciated. Psychosis. Consulted psychiatry. Peripheral vascular disease - Supportive care. Wound Care. - Pain control - F/U with vascular surgeon Diabetes - resumed levemir. - Insulin sliding scale for now. Cardiomyopathy - Coreg - Isosorbide -Diovan - Monitor BP Trend Hypothyroidism - TSH 9.150 - Synthroid 150mcg daily, check freeT4, may also be related to recent acute illness. Recheck in 4 weeks. Bilteral LE Cellulitis/ wounds Continue dressing changes per Dr Valdes podiatry recommendation. evaluated by - no further vascular procedures planned at this time. plastic surgery consulted- s/p debridement of bilateral leg wounds V-tach with EF 35%- continue BB- consulted cardiology; patient declined further work-up- continue medical management.previously d/w ; cardiology will see prn- abnormal UA- UC with gram positive aung- will dc Rocephin- continue diflucan for one week. Hyponatremia - resolved- hypokalemia; replaced. anemia of chronic disease; will monitor periodically. DVT GI prophylaxis - Heparin and Pepcid Discharge Planning d/w case management- possible dc to SNF next week and when ok with plastic surgery. Conrad Clancy MD Aug 01, 2016 11:58
[2016-08-01] MEDS: INSULIN DETEMIR 100 UNITS/ML VIAL SQ SCH (23:03)
[2016-08-01] MEDS: VALSARTAN 80 MG TAB PO SCH (23:05)
[2016-08-01] MEDS: MELATONIN 5 MG TAB PO SCH (23:06)
[2016-08-02] VITALS (8 sets, daily range): BP systolic 136–175; BP diastolic 63–89; PULSE 69–76; RESP 18–20; TEMP 98.4–99.3; O2SAT 91–96
[2016-08-02] MEDS: CHLORHEXIDINE GLUCONATE 2 % 1 PACK (2 CLOTHS) TOP SCH (04:00)
[2016-08-02] MEDS: INSULIN ASPART SUPPLEMENTAL SCALE SQ SCH ×4 (06:34→21:38)
[2016-08-02] MEDS: SODIUM CHLOR 0.9% 1000 ML INJ 1,000 ML IV SCH ×2 (06:35→16:29)
[2016-08-02] MEDS: ISOSORBIDE DINITRATE 5 MG TAB PO SCH ×3 (06:35→21:43)
[2016-08-02] MEDS: LEVOTHYROXINE SODIUM 150 MCG TAB PO SCH (06:35)
[2016-08-02] MEDS: HEPARIN SODIUM - SQ 10,000 UNITS/ML VIAL SQ SCH ×3 (06:36→21:43)
[2016-08-02] MEDS: SODIUM CHLORIDE 0.9% FLUSH 5 ML FLUSH IV FLUSH SCH ×2 (09:00→21:39)
[2016-08-02] MEDS: CARVEDILOL 12.5 MG TAB PO SCH ×2 (09:24→21:38)
[2016-08-02] MEDS: FAMOTIDINE 20 MG/2 ML VIAL IV PUSH SCH ×2 (09:24→21:39)
[2016-08-02] MEDS: DOCUSATE SODIUM 100 MG CAP PO SCH ×2 (09:24→21:00)
[2016-08-02] MEDS: LIOTHYRONINE SODIUM 5 MCG TAB PO SCH (09:24)
[2016-08-02] MEDS: LACTOBACILLUS ACIDOPHILUS TAB PO SCH ×3 (09:24→16:29)
[2016-08-02] MEDS: FLUCONAZOLE 100 MG TAB PO SCH (09:24)
[2016-08-02] MEDS: ASPIRIN EC 325 MG TABEC PO SCH (09:24)
[2016-08-02] MEDS: VALPROIC ACID 250 MG CAP PO SCH ×2 (09:24→21:38)
--- NOTE | 2016-08-02 09:49 | HHI.PR ---
Subjective Remarks somewhat lethargic today but easily arousable. pain is controlled. no fever. Objective Vitals Vital Signs Date Time Temp Pulse Resp B/P Pulse Ox O2 Delivery O2 Flow Rate FiO2 08/02/16 08:06 98.7 69 20 152/72 91 08/02/16 04:00 98.6 71 18 155/72 96 08/02/16 00:00 98.9 73 18 152/66 93 08/01/16 20:00 98.6 73 17 176/75 94 08/01/16 20:00 73 08/01/16 20:00 Room Air 08/01/16 16:05 98.3 69 20 139/65 96 08/01/16 12:15 98.1 67 20 153/70 95 I/O 08/01/16 08/01/16 08/01/16 08/02/16 08/02/16 08/02/16 07:00 15:00 23:00 07:00 15:00 23:00 Intake Total 240 ml 480 ml 320 ml 1538 ml Output Total 450 ml 3 ml Balance -210 ml 480 ml 317 ml 1538 ml Intake Oral 240 ml 480 ml 320 ml 240 ml IV Total 1298 ml Output Urine Total 450 ml 3 ml # Voids 1 1 # Bowel Movements 0 0 Result Diagram: 07/31/16 0635 Imaging Last Impressions Upper Extremity Ultrasound 07/28/16 0000 Signed Impressions: Service Date/Time: Thursday, July 28, 2016 14:34 - CONCLUSION: No DVT is identified within the right upper extremity. Alfredo Eng MD Chest X-Ray 07/20/16 0000 Signed Impressions: Service Date/Time: Wednesday, July 20, 2016 12:38 - CONCLUSION: Mild left base consolidation developing. Alfredo Sneed MD Brain MRI 07/20/16 0000 Signed Impressions: Service Date/Time: Wednesday, July 20, 2016 09:15 - CONCLUSION: No acute intracranial abnormality. Moderately severe chronic white matter changes, nonspecific but most likely small vessel ischemia. Alfredo Sneed MD Head CT 07/19/16 0000 Signed Impressions: Service Date/Time: Tuesday, July 19, 2016 09:58 - CONCLUSION: No acute intracranial findings. João Otoole MD Foot X-Ray 07/16/16 0000 Signed Impressions: Service Date/Time: Saturday, July 16, 2016 17:34 - CONCLUSION: 1. Nonspecific soft tissue swelling. No acute bone destruction demonstrated. 2. Mild talonavicular and navicular/cuneiform degenerative changes. 3. Second through fifth hammertoe. 4. Moderate-sized heel spur. Alfredo Sneed MD Objective Remarks GENERAL: This is a well-nourished, well-developed patient, in no apparent distress. CARDIOVASCULAR: Regular rate and irregular rhythm without murmurs, gallops, or rubs. RESPIRATORY: Clear to auscultation. Breath sounds equal bilaterally. No wheezes , rales, or rhonchi. GASTROINTESTINAL: Abdomen soft, non-tender, nondistended. Normal, active bowel sounds MUSCULOSKELETAL: both legs covered with clean dressing. NEURO: Alert & Oriented x4 to person, place, time, situation. Moves all ext x4 Procedures debridement of both leg wounds Medications and IVs Current Medications Sodium Chloride (NS 1000 ml Inj) 1,000 ml @ 84 mls/hr [id number] IV Last administered on 08/02/16 06:35; Start 07/15/16 at 19:42 IV Flush (NS Flush) 2 ml UNSCH PRN IV FLUSH FLUSH AFTER USING IV ACCESS Last administered on 07/24/16 04:49; Start 07/15/16 at 19:45 IV Flush (NS Flush) 2 ml BID IV FLUSH Last administered on 08/02/16 09:00; Start 07/15/16 at 21:00 Fentanyl Citrate (fentaNYL INJ) 50 mcg Q3H PRN IV PUSH Pain scale 7-10 &/or sedation Last administered on 07/15/16 21:44; Start 07/15/16 at 19:45; Stop at 11:51; Status DC Famotidine (Pepcid Inj) 20 mg Q12HR IV PUSH Last administered on 07/15/16 20: 19; Start 07/15/16 at 21:00; Stop 07/15/16 at 21:24; Status DC Ondansetron HCl (Zofran Inj) 4 mg Q6H PRN IV NAUSEA OR VOMITING Last administered on 07/31/16 13:23; Start 07/15/16 at 19:45 Metoclopramide HCl (Reglan Inj) 5 mg Q6H PRN IV NAUSEA OR VOMITING; Start 07/15 at 19:45 Docusate Sodium (Colace) 100 mg BID PO Last administered on 08/02/16 09:24; Start 07/15/16 at 21:00 Albuterol/ Ipratropium (Duoneb Neb) 1 ampule Q2HR NEB PRN INH WHEEZING; Start 07/15/16 at 19:45 Heparin Sodium (Porcine) (Heparin Inj) 5,000 units Q8HR SQ Last administered on 08/02/16 06:36; Start 07/15/16 at 22:00 Miscellaneous Information 1 [id number] XX Last administered on 07/15/16 19:45; Start 07/15/16 at 19:45 Chlorhexidine Gluconate (Chlorhexidine 2% Cloth) Taper DAILY@04 TOP Last administered on 07/17/16 03:11; Start 07/16/16 at 04:00; Stop 07/12/17 at 03:59 Chlorhexidine Gluconate (Chlorhexidine 2% Cloth) 3 pack UNSCH PRN TOP HYGIENIC CARE; Start 07/15/16 at 19:45 Acetaminophen (Ofirmev Inj) 1,000 mg Q6H PRN IV PAIN SCALE 1 TO 6; Start at 20:00; Stop 07/18/16 at 11:51; Status DC Ketorolac Tromethamine (Toradol Inj) 30 mg Q6H PRN IM PAIN SCALE 1 TO 7; Start 07/15/16 at 20:00; Stop 07/15/16 at 20:10; Status DC Ketorolac Tromethamine (Toradol Inj) 30 mg Q6H PRN IV PUSH PAIN 1-6 Last administered on 07/15/16 20:34; Start 07/15/16 at 20:15; Stop 07/18/16 at 11:51 ; Status DC Carvedilol (Coreg) 25 mg BID PO Last administered on 08/02/16 09:24; Start at 21:00 Fluconazole (Diflucan) 75 mg DAILY@17 PO Last administered on 07/16/16 17:03; Start 07/16/16 at 17:00; Stop 07/17/16 at 08:09; Status DC Isosorbide Dinitrate (Isordil) 5 mg Q8HR PO Last administered on 08/02/16 06: 35; Start 07/15/16 at 22:00 Lactobacillus Acidophilus (Lactinex) 1 tab TID PO Last administered on 09:24; Start 07/16/16 at 09:00 Levofloxacin (Levaquin) 250 mg Q48H PO Last administered on 07/21/16 21:05; Start 07/15/16 at 22:00; Stop 07/23/16 at 16:37; Status DC Levothyroxine Sodium (Synthroid) 150 mcg DAILY@06 PO Last administered on 06:35; Start 07/16/16 at 06:00 Liothyronine Sodium (Cytomel) 5 mcg DAILY PO Last administered on 08/02/16 09: 24; Start 07/16/16 at 09:00 Non-Formulary Medication 325 mg DAILY PO ; Start 07/16/16 at 09:00; Status UNV Miscellaneous (Pill Splitter) 1 ea UNSCH PRN OTHER SEE LABEL COMMENTS; Start at 21:30 Famotidine (Pepcid Inj) 10 mg Q12HR IV PUSH Last administered on 07/17/16 07: 29; Start 07/16/16 at 09:00; Stop 07/18/16 at 10:59; Status DC Aspirin (Ecotrin Ec) 325 mg DAILY PO Last administered on 08/02/16 09:24; Start 07/16/16 at 09:00 Etomidate (Amidate Inj) 20 mg STK-MED ONCE .ROUTE ; Start 07/16/16 at 17:07; Stop 07/16/16 at 17:08; Status DC Famotidine (Pepcid Inj) 20 mg Q12HR IV PUSH Last administered on 08/02/16 09: 24; Start 07/18/16 at 21:00 Hydromorphone HCl (Dilaudid Pf Inj) 0.5 mg ONCE ONCE IV PUSH ; Start 07/18/16 at 11:45; Stop 07/18/16 at 11:46; Status DC Hydromorphone HCl (Dilaudid Pf Inj) 0.5 mg Q4H PRN IV PUSH breakthrough pain / dresing lori Last administered on 07/29/16 10:22; Start 07/18/16 at 11:45 Acetaminophen/ Hydrocodone Bitart ([place] 5-325 Mg) 1 tab Q6H PRN PO pain 2-10 Last administered on 08/01/16 05:06; Start 07/18/16 at 11:45 Diphenhydramine HCl 50 mg 50 mg STK-MED ONCE .ROUTE ; Start 07/19/16 at 11:20; Stop 07/19/16 at 11:21; Status DC Levetriacetam/ Sodium Chloride (Keppra Inj/NS Inj) 105 ml @ 420 mls/hr Q12HR IV Last administered on 07/20/16 08:19; Start 07/19/16 at 13:00; Stop at 16:25; Status DC Haloperidol Lactate (Haldol Inj) 2 mg Q6H PRN IM aggittation Last administered on 07/30/16 01:29; Start 07/19/16 at 12:30; Status Hold Lorazepam 1 mg 1 mg Q6H PRN IV PUSH seizures/agiatation Last administered on 06:09; Start 07/19/16 at 12:30; Status Hold Valproate Sodium 500 mg/Sodium Chloride 105 ml @ 105 mls/hr Q8H IV Last administered on 07/25/16 09:26; Start 07/20/16 at 18:00; Stop 07/25/16 at 09:54; Status DC Cefepime HCl/ Sodium Chloride (Maxipime Inj/NS Inj) 100 ml @ 200 mls/hr Q12H IV Last administered on 07/27/16 02:43; Start 07/21/16 at 15:00; Stop 07/27/16 at 09:00; Status DC Dextrose (D50w (Vial) Inj) 25 ml UNSCH PRN IV PUSH HYPOGLYCEMIA-SEE COMMENTS; Start 07/23/16 at 11:00 Glucagon (Glucagon Inj) 1 mg UNSCH PRN OTHER HYPOGLYCEMIA-SEE COMMENTS; Start 07/23/16 at 11:00 Insulin Aspart (NovoLOG SUPPLEMENTAL SCALE) 1 ACHS SLIDING SCALE SQ Last administered on 08/01/16 23:03; Start 07/23/16 at 11:00 Potassium Chloride (KCl) 40 meq ONCE ONCE PO Last administered on 07/24/16 13: 00; Start 07/24/16 at 13:00; Stop 07/24/16 at 13:01; Status DC Valproic Acid (Depakene) 500 mg Q8HR PO Last administered on 07/26/16 14:52; Start 07/25/16 at 15:00; Stop 07/26/16 at 17:39; Status DC Potassium Chloride (KCl) 30 meq ONCE ONCE PO Last administered on 07/26/16 19: 30; Start 07/26/16 at 16:30; Stop 07/26/16 at 16:36; Status DC Potassium Chloride (KCl) 30 meq ONCE ONCE PO Last administered on 07/26/16 22: 16; Start 07/26/16 at 20:00; Stop 07/26/16 at 20:01; Status DC Valproic Acid (Depakene) 250 mg Q12HR PO Last administered on 08/02/16 09:24; Start 07/27/16 at 09:00 Hydromorphone HCl (Dilaudid Pf Inj) 0.5 mg ONCE ONCE IV PUSH Last administered on 07/27/16 10:42; Start 07/27/16 at 10:45; Stop 07/27/16 at 10:46; Status DC Valsartan (Diovan) 80 mg HS PO Last administered on 08/01/16 23:05; Start 07/27 at 21:00 Enalaprilat (Vasotec Inj) 1.25 mg Q8H PRN IV PUSH SBP >180 OR DBP >100; Start 07/28/16 at 16:00 Fluconazole 100 mg 100 mg DAILY PO Last administered on 08/02/16 09:24; Start 07/30/16 at 09:45; Stop 08/06/16 at 09:00 Ceftriaxone Sodium/Sodium Chloride (Rocephin Inj/NS Inj) 100 ml @ 200 mls/hr Q24H IV Last administered on 08/01/16 09:45; Start 07/30/16 at 10:00; Stop 03/10 at 11:59; Status DC Potassium Chloride (KCl) 30 meq ONCE ONCE PO Last administered on 07/30/16 12: 12; Start 07/30/16 at 09:45; Stop 07/30/16 at 09:53; Status DC Potassium Chloride (KCl) 30 meq ONCE ONCE PO Last administered on 07/30/16 14: 00; Start 07/30/16 at 14:00; Stop 07/30/16 at 14:01; Status DC Insulin Detemir (Levemir Inj) 5 units HS SQ Last administered on 08/01/16 23: 03; Start 07/30/16 at 21:00 Melatonin (Melatonin) 5 mg HS PO Last administered on 08/01/16 23:06; Start at 21:00 Bupivacaine HCl (Marcaine Pf 0.5% Inj) 30 ml STK-MED ONCE .ROUTE ; Start at 10:12; Stop 07/31/16 at 10:13; Status DC Bupivacaine HCl/ Epinephrine Bitart (Sensorcaine-Epi 0.5% 50 ml Inj) 50 ml STK- MED ONCE .ROUTE ; Start 07/31/16 at 10:12; Stop 07/31/16 at 10:13; Status DC Bacitracin (Baciguent Oint) 15 applic STK-MED ONCE .ROUTE ; Start 07/31/16 at 10: 12; Stop 07/31/16 at 10:13; Status DC Dexamethasone Sodium Phosphate (Decadron Inj) 4 mg STK-MED ONCE .ROUTE Last administered on 07/31/16 10:24; Start 07/31/16 at 10:22; Stop 07/31/16 at 10:23; Status DC Famotidine (Pepcid Inj) 20 mg STK-MED ONCE IV PUSH Last administered on 10:23; Start 07/31/16 at 10:23; Stop 07/31/16 at 10:27; Status DC Fentanyl Citrate 500 mcg 500 mcg STK-MED ONCE .ROUTE ; Start 07/31/16 at 12:13; Stop 07/31/16 at 12:14; Status DC Gentamicin Sulfate/Sodium Chloride (Gentamicin Inj/ NS Irr Btl) 1,005 ml @ 0 mls/hr UNSCH PRN IRRIGATION DRESSING CHANGES; Start 07/31/16 at 13:30 Miscellaneous Information ALL NURSING DEPARTME... UNSCH PRN XX SEE LABEL COMMENTS; Start 07/31/16 at 13:30; Stop 08/01/16 at 13:29; Status DC A/P Assessment and Plan A/P Respiratory Failure - resolved Nebs scheduled, PRN May need CPAP at night Pulmonology Consulted, need sleep study as OP Altered mental status Poss Metabolic toxic encephalopathy- improved Possible seizure. EEG with possible seizure - Hold all medications that could contribute. Hold anxiolytics and narcotic MRI brain with no acute abnormality. dc'ed [place] and started on Depakote per neurology; decreased the dose due to worsening confusion. neurology follow-up appreciated. Psychosis. evaluated by psych. Peripheral vascular disease - Supportive care. Wound Care. - Pain control - F/U with vascular surgeon Diabetes - resumed levemir. - Insulin sliding scale for now. Cardiomyopathy - Coreg - Isosorbide -Diovan - Monitor BP Trend Hypothyroidism - TSH 9.150 - Synthroid 150mcg daily, check freeT4, may also be related to recent acute illness. Recheck in 4 weeks. Bilteral LE Cellulitis/ wounds Continue dressing changes per Dr Valdes podiatry recommendation. evaluated by - no further vascular procedures planned at this time. plastic surgery consulted- s/p debridement of bilateral leg wounds- possible need for hyperbaric oxygen therapy. V-tach with EF 35%- continue BB- consulted cardiology; patient declined further work-up- continue medical management.previously d/w ; cardiology will see prn- abnormal UA- UC with gram positive aung- will dc Rocephin- continue diflucan for one week. Hyponatremia - resolved- hypokalemia; replaced. anemia of chronic disease; will monitor periodically. DVT GI prophylaxis - Heparin and Pepcid Discharge Planning d/w case management- possible dc to SNF next week and when ok with plastic surgery. Conrad Clancy MD Aug 02, 2016 09:49
--- NOTE | 2016-08-02 11:08 | PD.PLAS.PN ---
Subjective Remarks Patient sleeping - did not awaken her Dressings are dry and no smell on both legs. Will be changed later today. Consider referral to hyperbaric chamber either in house or outpatient for both the extensive wounds on the legs and also the patchy gangrene of toes, heels and both feet - Vascular surgery to address the gangrene issues. She will need to be referred to a wound care center or a provider on her insurance plan for custodial care when discharged. Vital Signs Date Time Temp Pulse Resp B/P Pulse Ox O2 Delivery O2 Flow Rate FiO2 08/02/16 10:03 93 21 08/02/16 09:00 72 08/02/16 08:06 98.7 69 20 152/72 91 08/02/16 08:00 Room Air 08/02/16 04:00 98.6 71 18 155/72 96 08/02/16 00:00 98.9 73 18 152/66 93 08/01/16 20:00 98.6 73 17 176/75 94 08/01/16 20:00 73 08/01/16 20:00 Room Air 08/01/16 16:05 98.3 69 20 139/65 96 08/01/16 12:15 98.1 67 20 153/70 95 I/O 08/01/16 08/01/16 08/01/16 08/02/16 08/02/16 08/02/16 07:00 15:00 23:00 07:00 15:00 23:00 Intake Total 240 ml 480 ml 320 ml 1538 ml Output Total 450 ml 3 ml Balance -210 ml 480 ml 317 ml 1538 ml Intake Oral 240 ml 480 ml 320 ml 240 ml IV Total 1298 ml Output Urine Total 450 ml 3 ml # Voids 1 1 # Bowel Movements 0 0 Date/Time Procedure Status Source Growth 07/31/16 10:53 Gram Stain - Final Resulted Wound Leg 07/31/16 10:53 Wound Culture - Preliminary Resulted S. Aureus Mrsa Gram Negative Klever 07/31/16 10:53 Fungal Smear - Final Resulted Wound Leg NO FUNGAL ELEMENTS SEEN. 07/31/16 10:53 Fungal Culture Resulted Wound Leg Pending 07/31/16 10:53 Acid Fast Stain - Final Resulted Wound Leg NO ACID FAST BACILLI SEEN 07/31/16 10:53 Mycobacterial Culture Resulted Wound Leg Pending 07/30/16 05:00 Urine Culture - Final Complete Urine Clean Catch 50-100,000 CFU/ML MIXED DC... Result Diagram: 07/31/16 0635 Bello Pepe MD Aug 02, 2016 11:08
--- NOTE | 2016-08-02 15:08 | HHI.PR ---
Subjective Remarks 61 YO WF withDM,CMP,DVT,Leg ulcer Weaned to RA No CP,fever or chills MRI, EEG done Alert, awake, pain much better controlled Objective Vital Signs Vital Signs Date Time Temp Pulse Resp B/P Pulse Ox O2 Delivery O2 Flow Rate FiO2 08/02/16 12:03 98.4 75 20 154/70 95 08/02/16 10:03 93 21 08/02/16 09:00 72 08/02/16 08:06 98.7 69 20 152/72 91 08/02/16 08:00 Room Air 08/02/16 04:00 98.6 71 18 155/72 96 08/02/16 00:00 98.9 73 18 152/66 93 08/01/16 20:00 98.6 73 17 176/75 94 08/01/16 20:00 73 08/01/16 20:00 Room Air 08/01/16 16:05 98.3 69 20 139/65 96 I/O 08/01/16 08/01/16 08/01/16 08/02/16 08/02/16 08/02/16 07:00 15:00 23:00 07:00 15:00 23:00 Intake Total 240 ml 480 ml 320 ml 1538 ml Output Total 450 ml 3 ml Balance -210 ml 480 ml 317 ml 1538 ml Intake Oral 240 ml 480 ml 320 ml 240 ml IV Total 1298 ml Output Urine Total 450 ml 3 ml # Voids 1 1 # Bowel Movements 0 0 Result Diagram: 07/31/16 0635 Objective Remarks GENERAL: Obese WF, NAD SKIN: Warm and dry. HEAD: Normocephalic. EYES: No scleral icterus. No injection or drainage. NECK: Supple, trachea midline. No JVD or lymphadenopathy. CARDIOVASCULAR: Regular rate and rhythm without murmurs, gallops, or rubs. RESPIRATORY: Breath sounds equal bilaterally. No accessory muscle use. GASTROINTESTINAL: Abdomen soft, non-tender, nondistended. MUSCULOSKELETAL: No cyanosis, or edema. BACK: Nontender without obvious deformity. No CVA tenderness. A/P Assessment and Plan LIVE likly DM Leg ulcer DVT CMP Encephalopathy PLAN: Will need sleep study as out pt Monitor BS Cont Abx pain controll Melatonin 5 mg at night Will Need Hyperbaric per Lito Caballero MD Aug 02, 2016 15:08
[2016-08-02] MEDS: INSULIN DETEMIR 100 UNITS/ML VIAL SQ SCH (21:38)
[2016-08-02] MEDS: VALSARTAN 80 MG TAB PO SCH (21:38)
[2016-08-02] MEDS: MELATONIN 5 MG TAB PO SCH (21:38)
[2016-08-03] VITALS (8 sets, daily range): BP systolic 149–172; BP diastolic 66–74; PULSE 67–75; RESP 18–20; TEMP 98.4–99.5; O2SAT 91–95
[2016-08-03] MEDS: CHLORHEXIDINE GLUCONATE 2 % 1 PACK (2 CLOTHS) TOP SCH (03:20)
[2016-08-03] MEDS: SODIUM CHLOR 0.9% 1000 ML INJ 1,000 ML IV SCH ×2 (03:20→15:51)
[2016-08-03] MEDS: ISOSORBIDE DINITRATE 5 MG TAB PO SCH ×3 (06:09→22:32)
[2016-08-03] MEDS: HEPARIN SODIUM - SQ 10,000 UNITS/ML VIAL SQ SCH ×3 (06:09→22:33)
[2016-08-03] MEDS: INSULIN ASPART SUPPLEMENTAL SCALE SQ SCH ×4 (06:09→22:33)
[2016-08-03] MEDS: LEVOTHYROXINE SODIUM 150 MCG TAB PO SCH (06:10)
[2016-08-03 08:30] LABS: BASOPHIL % 0.4 % (0.0-2.0); EOSINOPHIL # 0.1 TH/MM3 (0-0.4); EOSINOPHIL % 1.2 % (0.0-4.0); HEMATOCRIT 25.4 % (35.0-46.0); LYMPH % 17.9 % (9.0-44.0); LYMPHOCYTE # 1.8 TH/MM3 (1.0-4.8); MEAN CELL VOLUME 76.4 FL (80.0-100.0); MEAN CORPUSCULAR HEMOGLOBIN 23.9 PG (27.0-34.0); MEAN CORPUSCULAR HGB CONC 31.3 % (32.0-36.0); MONO % 11.3 % (0.0-8.0); NEUT % 69.2 % (16.0-70.0); PLATELET COUNT 314 TH/MM3 (150-450); RED BLOOD COUNT 3.33 MIL/MM3 (4.00-5.30)
[2016-08-03 08:44] LABS: BICARBONATE 31.9 MEQ/L (21.0-32.0); POTASSIUM 3.5 MEQ/L (3.5-5.1)
[2016-08-03 08:56] LABS: HEMO FLAGS AUTO DIFF
[2016-08-03] MEDS: SODIUM CHLORIDE 0.9% FLUSH 5 ML FLUSH IV FLUSH SCH ×2 (09:00→22:31)
[2016-08-03] MEDS: LACTOBACILLUS ACIDOPHILUS TAB PO SCH ×3 (09:12→15:51)
[2016-08-03] MEDS: ASPIRIN EC 325 MG TABEC PO SCH (09:12)
[2016-08-03] MEDS: FLUCONAZOLE 100 MG TAB PO SCH (09:12)
[2016-08-03] MEDS: LIOTHYRONINE SODIUM 5 MCG TAB PO SCH (09:12)
[2016-08-03] MEDS: DOCUSATE SODIUM 100 MG CAP PO SCH ×2 (09:12→22:32)
[2016-08-03] MEDS: CARVEDILOL 12.5 MG TAB PO SCH ×2 (09:12→22:33)
[2016-08-03] MEDS: VALPROIC ACID 250 MG CAP PO SCH ×2 (09:12→22:32)
[2016-08-03] MEDS: FAMOTIDINE 20 MG/2 ML VIAL IV PUSH SCH ×2 (09:13→22:32)
--- NOTE | 2016-08-03 10:00 | MP ---
cc: MELANY PEPE M.D. DATE OF SURGERY: 07/31/2016 PREOPERATIVE DIAGNOSIS: Bilateral leg extensive necrotic wounds circumferential involving lower 2/3 of both legs. POSTOPERATIVE DIAGNOSIS Bilateral leg extensive necrotic wounds circumferential involving lower 2/3 of both legs. OPERATION Excision and debridement of both legs, extensive necrotic wounds approximately 30 x 25 cm area on each side, total 1000 to 1100 cm square, down to the subcutaneous tissue and tendon on the left side. SURGEON Dr. Pepe. ANESTHESIA General INDICATIONS A 61-year-old diabetic white female with severe peripheral vascular disease, patchy gangrene involving both feet in multiple areas and very extensive necrotic wounds and ulcers involving from ankle to the upper third of the leg on both sides. Anteriorly the tendons are exposed on the left leg. The right side is still covered. PROCEDURE The patient was brought to the operating room was given supine position. Anesthesia was started. IV antibiotics are on schedule. Prep and drape was done. A time-out had been called and completed. The entire leg surfaces with the black necrotic eschars were excise sharply with a knife and scissors. The underlying coagulated tissues were curetted and also scraped with the knife as appropriate. A culture sample had been taken from the left leg prior to starting the procedure. The wounds were then excessively scrubbed with a Betadine scrub brush for 10 to 15-minute on each side applying heavy pressure to remove as much slime and loose tissue as possible, while preserving the viable tissue. The wounds were copiously irrigated clean. The hyperkeratotic skin on most of the leg, feet and ankle were removed. The actual vascular gangrene areas involving the left great toe, second and third toes, also most of the left heel, half of the sole and some patchy areas coming up on the dorsum of the foot as well. On the right side there is a patch on the dorsum of the foot, on the lateral aspect, one under the third toe and a small heel necrosis as well. These areas are dry and firmly adherent to the underlying tissues and they were left alone. The toes were cleaned in between with gauze to remove as much dirt as possible. All the areas were covered with Xeroform and saline wet-to-dry dressing was applied. The patient remained stable. Intraoperative blood loss less than 100 mL. No complications. signed, not fully reviewed MD JOVAN Escalante/ERIC /11:43 AM /8:53 AM JAY
[2016-08-03 10:44] LABS: BANDS 13 % (0-6); EOSINOPHILS 1 % (0-4); METAMYELOCYTES 1 % (0-1); MYELOCYTES 2 % (0-0); NEUTROPHIL # MANUAL DIFF 7.8 TH/MM3 (1.8-7.7); POLYS (SEG NEUTROPHILS) 62 % (16-70); WBC DIFF SAMPLE 100
[2016-08-03 10:45] LABS: PLATELET ESTIMATE SMEAR NORMAL (NORMAL); PLATELET MORPHOLOGY NORMAL (NORMAL); SCAN/DIFF FINAL DIFF MANUAL
--- NOTE | 2016-08-03 11:34 | HHI.PR ---
Subjective Remarks some what lethargic. however in no acute distress. no fever. Objective Vitals Vital Signs Date Time Temp Pulse Resp B/P Pulse Ox O2 Delivery O2 Flow Rate FiO2 08/03/16 09:25 94 21 08/03/16 09:00 73 08/03/16 08:00 Room Air 08/03/16 08:00 98.4 75 20 172/74 94 08/03/16 04:00 98.4 69 20 167/73 94 08/03/16 00:00 98.4 75 20 149/67 92 08/02/16 22:04 Room Air 08/02/16 20:00 98.6 76 20 175/89 96 08/02/16 20:00 75 08/02/16 16:02 99.3 72 20 136/63 96 08/02/16 12:03 98.4 75 20 154/70 95 I/O 08/02/16 08/02/16 08/02/16 08/03/16 08/03/16 08/03/16 07:00 15:00 23:00 07:00 15:00 23:00 Intake Total 1538 ml 360 ml 1328 ml 963 ml Balance 1538 ml 360 ml 1328 ml 963 ml Intake Oral 240 ml 360 ml 340 ml IV Total 1298 ml 1328 ml 623 ml # Voids 1 8 7 # Bowel Movements 1 3 Result Diagram: 08/03/16 0736 08/03/16 0736 Imaging Last Impressions Upper Extremity Ultrasound 07/28/16 0000 Signed Impressions: Service Date/Time: Thursday, July 28, 2016 14:34 - CONCLUSION: No DVT is identified within the right upper extremity. Alfredo Eng MD Chest X-Ray 07/20/16 0000 Signed Impressions: Service Date/Time: Wednesday, July 20, 2016 12:38 - CONCLUSION: Mild left base consolidation developing. Alfredo Sneed MD Brain MRI 07/20/16 0000 Signed Impressions: Service Date/Time: Wednesday, July 20, 2016 09:15 - CONCLUSION: No acute intracranial abnormality. Moderately severe chronic white matter changes, nonspecific but most likely small vessel ischemia. Alfredo Sneed MD Head CT 07/19/16 0000 Signed Impressions: Service Date/Time: Tuesday, July 19, 2016 09:58 - CONCLUSION: No acute intracranial findings. João Otoole MD Foot X-Ray 07/16/16 0000 Signed Impressions: Service Date/Time: Saturday, July 16, 2016 17:34 - CONCLUSION: 1. Nonspecific soft tissue swelling. No acute bone destruction demonstrated. 2. Mild talonavicular and navicular/cuneiform degenerative changes. 3. Second through fifth hammertoe. 4. Moderate-sized heel spur. Alfredo Sneed MD Objective Remarks GENERAL: This is a well-nourished, well-developed patient, in no apparent distress. CARDIOVASCULAR: Regular rate and irregular rhythm without murmurs, gallops, or rubs. RESPIRATORY: Clear to auscultation. Breath sounds equal bilaterally. No wheezes , rales, or rhonchi. GASTROINTESTINAL: Abdomen soft, non-tender, nondistended. Normal, active bowel sounds MUSCULOSKELETAL: both legs covered with clean dressing. NEURO: Alert & Oriented x4 to person, place, time, situation. Moves all ext x4 Procedures debridement of both leg wounds Medications and IVs Current Medications Sodium Chloride (NS 1000 ml Inj) 1,000 ml @ 84 mls/hr [id number] IV Last administered on 08/03/16 03:20; Start 07/15/16 at 19:42 IV Flush (NS Flush) 2 ml UNSCH PRN IV FLUSH FLUSH AFTER USING IV ACCESS Last administered on 07/24/16 04:49; Start 07/15/16 at 19:45 IV Flush (NS Flush) 2 ml BID IV FLUSH Last administered on 08/03/16 09:00; Start 07/15/16 at 21:00 Fentanyl Citrate (fentaNYL INJ) 50 mcg Q3H PRN IV PUSH Pain scale 7-10 &/or sedation Last administered on 07/15/16 21:44; Start 07/15/16 at 19:45; Stop at 11:51; Status DC Famotidine (Pepcid Inj) 20 mg Q12HR IV PUSH Last administered on 07/15/16 20: 19; Start 07/15/16 at 21:00; Stop 07/15/16 at 21:24; Status DC Ondansetron HCl (Zofran Inj) 4 mg Q6H PRN IV NAUSEA OR VOMITING Last administered on 07/31/16 13:23; Start 07/15/16 at 19:45 Metoclopramide HCl (Reglan Inj) 5 mg Q6H PRN IV NAUSEA OR VOMITING; Start 07/15 at 19:45 Docusate Sodium (Colace) 100 mg BID PO Last administered on 08/03/16 09:12; Start 07/15/16 at 21:00 Albuterol/ Ipratropium (Duoneb Neb) 1 ampule Q2HR NEB PRN INH WHEEZING; Start 07/15/16 at 19:45 Heparin Sodium (Porcine) (Heparin Inj) 5,000 units Q8HR SQ Last administered on 08/03/16 06:09; Start 07/15/16 at 22:00 Miscellaneous Information 1 Q361D XX Last administered on 07/15/16 19:45; Start 07/15/16 at 19:45 Chlorhexidine Gluconate (Chlorhexidine 2% Cloth) Taper DAILY@04 TOP Last administered on 07/17/16 03:11; Start 07/16/16 at 04:00; Stop 07/12/17 at 03:59 Chlorhexidine Gluconate (Chlorhexidine 2% Cloth) 3 pack UNSCH PRN TOP HYGIENIC CARE; Start 07/15/16 at 19:45 Acetaminophen (Ofirmev Inj) 1,000 mg Q6H PRN IV PAIN SCALE 1 TO 6; Start at 20:00; Stop 07/18/16 at 11:51; Status DC Ketorolac Tromethamine (Toradol Inj) 30 mg Q6H PRN IM PAIN SCALE 1 TO 7; Start 07/15/16 at 20:00; Stop 07/15/16 at 20:10; Status DC Ketorolac Tromethamine (Toradol Inj) 30 mg Q6H PRN IV PUSH PAIN 1-6 Last administered on 07/15/16 20:34; Start 07/15/16 at 20:15; Stop 07/18/16 at 11:51 ; Status DC Carvedilol (Coreg) 25 mg BID PO Last administered on 08/03/16 09:12; Start at 21:00 Fluconazole (Diflucan) 75 mg DAILY@17 PO Last administered on 07/16/16 17:03; Start 07/16/16 at 17:00; Stop 07/17/16 at 08:09; Status DC Isosorbide Dinitrate (Isordil) 5 mg Q8HR PO Last administered on 08/03/16 06: 09; Start 07/15/16 at 22:00 Lactobacillus Acidophilus (Lactinex) 1 tab TID PO Last administered on 09:12; Start 07/16/16 at 09:00 Levofloxacin (Levaquin) 250 mg Q48H PO Last administered on 07/21/16 21:05; Start 07/15/16 at 22:00; Stop 07/23/16 at 16:37; Status DC Levothyroxine Sodium (Synthroid) 150 mcg DAILY@06 PO Last administered on 06:10; Start 07/16/16 at 06:00 Liothyronine Sodium (Cytomel) 5 mcg DAILY PO Last administered on 08/03/16 09: 12; Start 07/16/16 at 09:00 Non-Formulary Medication 325 mg DAILY PO ; Start 07/16/16 at 09:00; Status UNV Miscellaneous (Pill Splitter) 1 ea UNSCH PRN OTHER SEE LABEL COMMENTS; Start at 21:30 Famotidine (Pepcid Inj) 10 mg Q12HR IV PUSH Last administered on 07/17/16 07: 29; Start 07/16/16 at 09:00; Stop 07/18/16 at 10:59; Status DC Aspirin (Ecotrin Ec) 325 mg DAILY PO Last administered on 08/03/16 09:12; Start 07/16/16 at 09:00 Etomidate (Amidate Inj) 20 mg STK-MED ONCE .ROUTE ; Start 07/16/16 at 17:07; Stop 07/16/16 at 17:08; Status DC Famotidine (Pepcid Inj) 20 mg Q12HR IV PUSH Last administered on 08/03/16 09: 13; Start 07/18/16 at 21:00 Hydromorphone HCl (Dilaudid Pf Inj) 0.5 mg ONCE ONCE IV PUSH ; Start 07/18/16 at 11:45; Stop 07/18/16 at 11:46; Status DC Hydromorphone HCl (Dilaudid Pf Inj) 0.5 mg Q4H PRN IV PUSH breakthrough pain / dresing lori Last administered on 07/29/16 10:22; Start 07/18/16 at 11:45 Acetaminophen/ Hydrocodone Bitart ([place] 5-325 Mg) 1 tab Q6H PRN PO pain 2-10 Last administered on 08/01/16 05:06; Start 07/18/16 at 11:45 Diphenhydramine HCl 50 mg 50 mg STK-MED ONCE .ROUTE ; Start 07/19/16 at 11:20; Stop 07/19/16 at 11:21; Status DC Levetriacetam/ Sodium Chloride (Keppra Inj/NS Inj) 105 ml @ 420 mls/hr Q12HR IV Last administered on 07/20/16 08:19; Start 07/19/16 at 13:00; Stop at 16:25; Status DC Haloperidol Lactate (Haldol Inj) 2 mg Q6H PRN IM aggittation Last administered on 07/30/16 01:29; Start 07/19/16 at 12:30; Status Hold Lorazepam 1 mg 1 mg Q6H PRN IV PUSH seizures/agiatation Last administered on 06:09; Start 07/19/16 at 12:30; Status Hold Valproate Sodium 500 mg/Sodium Chloride 105 ml @ 105 mls/hr Q8H IV Last administered on 07/25/16 09:26; Start 07/20/16 at 18:00; Stop 07/25/16 at 09:54; Status DC Cefepime HCl/ Sodium Chloride (Maxipime Inj/NS Inj) 100 ml @ 200 mls/hr Q12H IV Last administered on 07/27/16 02:43; Start 07/21/16 at 15:00; Stop 07/27/16 at 09:00; Status DC Dextrose (D50w (Vial) Inj) 25 ml UNSCH PRN IV PUSH HYPOGLYCEMIA-SEE COMMENTS; Start 07/23/16 at 11:00 Glucagon (Glucagon Inj) 1 mg UNSCH PRN OTHER HYPOGLYCEMIA-SEE COMMENTS; Start 07/23/16 at 11:00 Insulin Aspart (NovoLOG SUPPLEMENTAL SCALE) 1 ACHS SLIDING SCALE SQ Last administered on 08/02/16 21:38; Start 07/23/16 at 11:00 Potassium Chloride (KCl) 40 meq ONCE ONCE PO Last administered on 07/24/16 13: 00; Start 07/24/16 at 13:00; Stop 07/24/16 at 13:01; Status DC Valproic Acid (Depakene) 500 mg Q8HR PO Last administered on 07/26/16 14:52; Start 07/25/16 at 15:00; Stop 07/26/16 at 17:39; Status DC Potassium Chloride (KCl) 30 meq ONCE ONCE PO Last administered on 07/26/16 19: 30; Start 07/26/16 at 16:30; Stop 07/26/16 at 16:36; Status DC Potassium Chloride (KCl) 30 meq ONCE ONCE PO Last administered on 07/26/16 22: 16; Start 07/26/16 at 20:00; Stop 07/26/16 at 20:01; Status DC Valproic Acid (Depakene) 250 mg Q12HR PO Last administered on 08/03/16 09:12; Start 07/27/16 at 09:00 Hydromorphone HCl (Dilaudid Pf Inj) 0.5 mg ONCE ONCE IV PUSH Last administered on 07/27/16 10:42; Start 07/27/16 at 10:45; Stop 07/27/16 at 10:46; Status DC Valsartan (Diovan) 80 mg HS PO Last administered on 08/02/16 21:38; Start 07/27 at 21:00 Enalaprilat (Vasotec Inj) 1.25 mg Q8H PRN IV PUSH SBP >180 OR DBP >100; Start 07/28/16 at 16:00 Fluconazole 100 mg 100 mg DAILY PO Last administered on 08/03/16 09:12; Start 07/30/16 at 09:45; Stop 08/06/16 at 09:00 Ceftriaxone Sodium/Sodium Chloride (Rocephin Inj/NS Inj) 100 ml @ 200 mls/hr Q24H IV Last administered on 08/01/16 09:45; Start 07/30/16 at 10:00; Stop 03/10 at 11:59; Status DC Potassium Chloride (KCl) 30 meq ONCE ONCE PO Last administered on 07/30/16 12: 12; Start 07/30/16 at 09:45; Stop 07/30/16 at 09:53; Status DC Potassium Chloride (KCl) 30 meq ONCE ONCE PO Last administered on 07/30/16 14: 00; Start 07/30/16 at 14:00; Stop 07/30/16 at 14:01; Status DC Insulin Detemir (Levemir Inj) 5 units HS SQ Last administered on 08/02/16 21: 38; Start 07/30/16 at 21:00 Melatonin (Melatonin) 5 mg HS PO Last administered on 08/02/16 21:38; Start at 21:00 Bupivacaine HCl (Marcaine Pf 0.5% Inj) 30 ml STK-MED ONCE .ROUTE ; Start at 10:12; Stop 07/31/16 at 10:13; Status DC Bupivacaine HCl/ Epinephrine Bitart (Sensorcaine-Epi 0.5% 50 ml Inj) 50 ml STK- MED ONCE .ROUTE ; Start 07/31/16 at 10:12; Stop 07/31/16 at 10:13; Status DC Bacitracin (Baciguent Oint) 15 applic STK-MED ONCE .ROUTE ; Start 07/31/16 at 10: 12; Stop 07/31/16 at 10:13; Status DC Dexamethasone Sodium Phosphate (Decadron Inj) 4 mg STK-MED ONCE .ROUTE Last administered on 07/31/16 10:24; Start 07/31/16 at 10:22; Stop 07/31/16 at 10:23; Status DC Famotidine (Pepcid Inj) 20 mg STK-MED ONCE IV PUSH Last administered on 10:23; Start 07/31/16 at 10:23; Stop 07/31/16 at 10:27; Status DC Fentanyl Citrate 500 mcg 500 mcg STK-MED ONCE .ROUTE ; Start 07/31/16 at 12:13; Stop 07/31/16 at 12:14; Status DC Gentamicin Sulfate/Sodium Chloride (Gentamicin Inj/ NS Irr Btl) 1,005 ml @ 0 mls/hr UNSCH PRN IRRIGATION DRESSING CHANGES; Start 07/31/16 at 13:30 Miscellaneous Information ALL NURSING DEPARTME... UNSCH PRN XX SEE LABEL COMMENTS; Start 07/31/16 at 13:30; Stop 08/01/16 at 13:29; Status DC A/P Assessment and Plan A/P Respiratory Failure - resolved Nebs scheduled, PRN May need CPAP at night Pulmonology Consulted, need sleep study as OP Altered mental status Poss Metabolic toxic encephalopathy- Possible seizure. EEG with possible seizure - Hold all medications that could contribute. Hold anxiolytics and narcotic MRI brain with no acute abnormality. dc'ed Keppra and started on Depakote per neurology; decreased the dose due to worsening confusion. neurology follow-up appreciated. Psychosis. evaluated by psych. Peripheral vascular disease - Supportive care. Wound Care. - Pain control - F/U with vascular surgeon Diabetes - resumed levemir. - Insulin sliding scale for now. Cardiomyopathy - Coreg - Isosorbide -Diovan - Monitor BP Trend Hypothyroidism - TSH 9.150 - Synthroid 150mcg daily, check freeT4, may also be related to recent acute illness. Recheck in 4 weeks. Bilteral LE Cellulitis/ wounds Continue dressing changes per Dr Valdes podiatry recommendation. evaluated by - no further vascular procedures planned at this time. plastic surgery consulted- s/p debridement of bilateral leg wounds- possible need for hyperbaric oxygen therapy. V-tach with EF 35%- continue BB- consulted cardiology; patient declined further work-up- continue medical management.previously d/w ; cardiology will see prn- abnormal UA- UC with gram positive aung- will dc Rocephin- continue diflucan for one week. Hyponatremia - resolved- hypokalemia; replaced. anemia of chronic disease; will monitor periodically. DVT GI prophylaxis - Heparin and Pepcid Discharge Planning previously d/w case management- possible dc to SNF this week if ok with consultants. Conrad Clancy MD Aug 03, 2016 11:34
[2016-08-03] MEDS: HYDROmorphone HCL PF 1 MG/ML VIAL IV PUSH PRN (15:52)
[2016-08-03] MEDS: MELATONIN 5 MG TAB PO SCH (22:32)
[2016-08-03] MEDS: VALSARTAN 80 MG TAB PO SCH (22:32)
[2016-08-03] MEDS: INSULIN DETEMIR 100 UNITS/ML VIAL SQ SCH (22:33)
[2016-08-04] VITALS (10 sets, daily range): BP systolic 114–175; BP diastolic 56–92; PULSE 65–80; RESP 16–18; TEMP 97.8–98.9; O2SAT 92–96
[2016-08-04] MEDS: CHLORHEXIDINE GLUCONATE 2 % 1 PACK (2 CLOTHS) TOP SCH (02:52)
[2016-08-04] MEDS: ISOSORBIDE DINITRATE 5 MG TAB PO SCH ×3 (06:23→23:00)
[2016-08-04] MEDS: LEVOTHYROXINE SODIUM 150 MCG TAB PO SCH (06:23)
[2016-08-04] MEDS: HEPARIN SODIUM - SQ 10,000 UNITS/ML VIAL SQ SCH ×3 (06:24→23:04)
[2016-08-04] MEDS: INSULIN ASPART SUPPLEMENTAL SCALE SQ SCH ×4 (06:29→23:05)
[2016-08-04] MEDS: SODIUM CHLOR 0.9% 1000 ML INJ 1,000 ML IV SCH ×2 (06:30→23:01)
[2016-08-04] MEDS: DOCUSATE SODIUM 100 MG CAP PO SCH ×2 (09:00→21:00)
[2016-08-04] MEDS: SODIUM CHLORIDE 0.9% FLUSH 5 ML FLUSH IV FLUSH SCH ×2 (09:00→23:01)
[2016-08-04] MEDS: FAMOTIDINE 20 MG/2 ML VIAL IV PUSH SCH ×2 (09:00→23:01)
[2016-08-04] MEDS: FLUCONAZOLE 100 MG TAB PO SCH (09:37)
[2016-08-04] MEDS: LACTOBACILLUS ACIDOPHILUS TAB PO SCH ×3 (09:37→18:00)
[2016-08-04] MEDS: ASPIRIN EC 325 MG TABEC PO SCH (09:38)
[2016-08-04] MEDS: CARVEDILOL 12.5 MG TAB PO SCH ×2 (09:38→23:00)
[2016-08-04] MEDS: LIOTHYRONINE SODIUM 5 MCG TAB PO SCH (09:38)
[2016-08-04] MEDS: VALPROIC ACID 250 MG CAP PO SCH ×2 (09:38→23:00)
[2016-08-04] MEDS: ACETAMINOPHEN/HYDROcodone 325 MG/5 MG TAB PO PRN ×2 (09:52→15:14)
--- NOTE | 2016-08-04 10:56 | HHI.PR ---
Subjective Remarks resting comfortably with no distress. pain is controlled. no fever. d/w the RN. Objective Vitals Vital Signs Date Time Temp Pulse Resp B/P Pulse Ox O2 Delivery O2 Flow Rate FiO2 08/04/16 08:07 98.6 75 18 175/74 94 08/04/16 08:00 76 08/04/16 04:00 98.6 78 18 156/71 94 08/04/16 00:00 97.8 70 18 114/56 95 08/03/16 20:00 Room Air 08/03/16 20:00 99.5 72 18 150/66 93 08/03/16 20:00 72 08/03/16 16:00 98.5 71 20 158/68 95 08/03/16 12:00 98.5 67 20 159/69 91 I/O 08/03/16 08/03/16 08/03/16 08/04/16 08/04/16 08/04/16 07:00 15:00 23:00 07:00 15:00 23:00 Intake Total 963 ml 240 ml 0 ml 733 ml Balance 963 ml 240 ml 0 ml 733 ml Intake Oral 340 ml 240 ml 0 ml 100 ml IV Total 623 ml 633 ml # Voids 7 2 0 2 # Bowel Movements 3 2 0 0 Result Diagram: 08/03/1636 08/03/16735 Objective Remarks GENERAL: This is a well-nourished, well-developed patient, in no apparent distress. CARDIOVASCULAR: Regular rate and irregular rhythm without murmurs, gallops, or rubs. RESPIRATORY: Clear to auscultation. Breath sounds equal bilaterally. No wheezes , rales, or rhonchi. GASTROINTESTINAL: Abdomen soft, non-tender, nondistended. Normal, active bowel sounds MUSCULOSKELETAL: both legs covered with clean dressing. NEURO: Alert & Oriented x4 to person, place, time, situation. Moves all ext x4 Procedures debridement of both leg wounds Medications and IVs Current Medications Sodium Chloride (NS 1000 ml Inj) 1,000 ml @ 84 mls/hr [id number] IV Last administered on 08/04/16 06:30; Start 07/15/16 at 19:42 IV Flush (NS Flush) 2 ml UNSCH PRN IV FLUSH FLUSH AFTER USING IV ACCESS Last administered on 07/24/16 04:49; Start 07/15/16 at 19:45 IV Flush (NS Flush) 2 ml BID IV FLUSH Last administered on 08/03/16 22:31; Start 07/15/16 at 21:00 Fentanyl Citrate (fentaNYL INJ) 50 mcg Q3H PRN IV PUSH Pain scale 7-10 &/or sedation Last administered on 07/15/16 21:44; Start 07/15/16 at 19:45; Stop at 11:51; Status DC Famotidine (Pepcid Inj) 20 mg Q12HR IV PUSH Last administered on 07/15/16 20: 19; Start 07/15/16 at 21:00; Stop 07/15/16 at 21:24; Status DC Ondansetron HCl (Zofran Inj) 4 mg Q6H PRN IV NAUSEA OR VOMITING Last administered on 07/31/16 13:23; Start 07/15/16 at 19:45 Metoclopramide HCl (Reglan Inj) 5 mg Q6H PRN IV NAUSEA OR VOMITING; Start 07/15 at 19:45 Docusate Sodium (Colace) 100 mg BID PO Last administered on 08/03/16 22:32; Start 07/15/16 at 21:00 Albuterol/ Ipratropium (Duoneb Neb) 1 ampule Q2HR NEB PRN INH WHEEZING; Start 07/15/16 at 19:45 Heparin Sodium (Porcine) (Heparin Inj) 5,000 units Q8HR SQ Last administered on 08/04/16 06:24; Start 07/15/16 at 22:00 Miscellaneous Information 1 Q361D XX Last administered on 07/15/16 19:45; Start 07/15/16 at 19:45 Chlorhexidine Gluconate (Chlorhexidine 2% Cloth) 3 pack Taper DAILY@04 TOP Last administered on 07/17/16 03:11; Start 07/16/16 at 04:00; Stop 07/12/17 at 03:59 Chlorhexidine Gluconate (Chlorhexidine 2% Cloth) 3 pack UNSCH PRN TOP HYGIENIC CARE; Start 07/15/16 at 19:45 Acetaminophen (Ofirmev Inj) 1,000 mg Q6H PRN IV PAIN SCALE 1 TO 6; Start at 20:00; Stop 07/18/16 at 11:51; Status DC Ketorolac Tromethamine (Toradol Inj) 30 mg Q6H PRN IM PAIN SCALE 1 TO 7; Start 07/15/16 at 20:00; Stop 07/15/16 at 20:10; Status DC Ketorolac Tromethamine (Toradol Inj) 30 mg Q6H PRN IV PUSH PAIN 1-6 Last administered on 07/15/16 20:34; Start 07/15/16 at 20:15; Stop 07/18/16 at 11:51 ; Status DC Carvedilol (Coreg) 25 mg BID PO Last administered on 08/04/16 09:38; Start at 21:00 Fluconazole (Diflucan) 75 mg DAILY@17 PO Last administered on 07/16/16 17:03; Start 07/16/16 at 17:00; Stop 07/17/16 at 08:09; Status DC Isosorbide Dinitrate (Isordil) 5 mg Q8HR PO Last administered on 08/04/16 06: 23; Start 07/15/16 at 22:00 Lactobacillus Acidophilus (Lactinex) 1 tab TID PO Last administered on 09:37; Start 07/16/16 at 09:00 Levofloxacin (Levaquin) 250 mg Q48H PO Last administered on 07/21/16 21:05; Start 07/15/16 at 22:00; Stop 07/23/16 at 16:37; Status DC Levothyroxine Sodium (Synthroid) 150 mcg DAILY@06 PO Last administered on 06:23; Start 07/16/16 at 06:00 Liothyronine Sodium (Cytomel) 5 mcg DAILY PO Last administered on 08/04/16 09: 38; Start 07/16/16 at 09:00 Non-Formulary Medication 325 mg DAILY PO ; Start 07/16/16 at 09:00; Status UNV Miscellaneous (Pill Splitter) 1 ea UNSCH PRN OTHER SEE LABEL COMMENTS; Start at 21:30 Famotidine (Pepcid Inj) 10 mg Q12HR IV PUSH Last administered on 07/17/16 07: 29; Start 07/16/16 at 09:00; Stop 07/18/16 at 10:59; Status DC Aspirin (Ecotrin Ec) 325 mg DAILY PO Last administered on 08/04/16 09:38; Start 07/16/16 at 09:00 Etomidate (Amidate Inj) 20 mg STK-MED ONCE .ROUTE ; Start 07/16/16 at 17:07; Stop 07/16/16 at 17:08; Status DC Famotidine (Pepcid Inj) 20 mg Q12HR IV PUSH Last administered on 08/03/16 22: 32; Start 07/18/16 at 21:00 Hydromorphone HCl (Dilaudid Pf Inj) 0.5 mg ONCE ONCE IV PUSH ; Start 07/18/16 at 11:45; Stop 07/18/16 at 11:46; Status DC Hydromorphone HCl (Dilaudid Pf Inj) 0.5 mg Q4H PRN IV PUSH breakthrough pain / dresing lori Last administered on 08/03/16 15:52; Start 07/18/16 at 11:45 Acetaminophen/ Hydrocodone Bitart ([place] 5-325 Mg) 1 tab Q6H PRN PO pain 2-10 Last administered on 08/04/16 09:52; Start 07/18/16 at 11:45 Diphenhydramine HCl 50 mg 50 mg STK-MED ONCE .ROUTE ; Start 07/19/16 at 11:20; Stop 07/19/16 at 11:21; Status DC Levetriacetam/ Sodium Chloride (Keppra Inj/NS Inj) 105 ml @ 420 mls/hr Q12HR IV Last administered on 07/20/16 08:19; Start 07/19/16 at 13:00; Stop at 16:25; Status DC Haloperidol Lactate (Haldol Inj) 2 mg Q6H PRN IM aggittation Last administered on 07/30/16 01:29; Start 07/19/16 at 12:30; Status Hold Lorazepam 1 mg 1 mg Q6H PRN IV PUSH seizures/agiatation Last administered on 06:09; Start 07/19/16 at 12:30; Status Hold Valproate Sodium 500 mg/Sodium Chloride 105 ml @ 105 mls/hr Q8H IV Last administered on 07/25/16 09:26; Start 07/20/16 at 18:00; Stop 07/25/16 at 09:54; Status DC Cefepime HCl/ Sodium Chloride (Maxipime Inj/NS Inj) 100 ml @ 200 mls/hr Q12H IV Last administered on 07/27/16 02:43; Start 07/21/16 at 15:00; Stop 07/27/16 at 09:00; Status DC Dextrose (D50w (Vial) Inj) 25 ml UNSCH PRN IV PUSH HYPOGLYCEMIA-SEE COMMENTS; Start 07/23/16 at 11:00 Glucagon (Glucagon Inj) 1 mg UNSCH PRN OTHER HYPOGLYCEMIA-SEE COMMENTS; Start 07/23/16 at 11:00 Insulin Aspart (NovoLOG SUPPLEMENTAL SCALE) 1 ACHS SLIDING SCALE SQ Last administered on 08/03/16 22:33; Start 07/23/16 at 11:00 Potassium Chloride (KCl) 40 meq ONCE ONCE PO Last administered on 07/24/16 13: 00; Start 07/24/16 at 13:00; Stop 07/24/16 at 13:01; Status DC Valproic Acid (Depakene) 500 mg Q8HR PO Last administered on 07/26/16 14:52; Start 07/25/16 at 15:00; Stop 07/26/16 at 17:39; Status DC Potassium Chloride (KCl) 30 meq ONCE ONCE PO Last administered on 07/26/16 19: 30; Start 07/26/16 at 16:30; Stop 07/26/16 at 16:36; Status DC Potassium Chloride (KCl) 30 meq ONCE ONCE PO Last administered on 07/26/16 22: 16; Start 07/26/16 at 20:00; Stop 07/26/16 at 20:01; Status DC Valproic Acid (Depakene) 250 mg Q12HR PO Last administered on 08/04/16 09:38; Start 07/27/16 at 09:00 Hydromorphone HCl (Dilaudid Pf Inj) 0.5 mg ONCE ONCE IV PUSH Last administered on 07/27/16 10:42; Start 07/27/16 at 10:45; Stop 07/27/16 at 10:46; Status DC Valsartan (Diovan) 80 mg HS PO Last administered on 08/03/16 22:32; Start 07/27 at 21:00 Enalaprilat (Vasotec Inj) 1.25 mg Q8H PRN IV PUSH SBP >180 OR DBP >100; Start 07/28/16 at 16:00 Fluconazole 100 mg 100 mg DAILY PO Last administered on 08/04/16 09:37; Start 07/30/16 at 09:45; Stop 08/06/16 at 09:00 Ceftriaxone Sodium/Sodium Chloride (Rocephin Inj/NS Inj) 100 ml @ 200 mls/hr Q24H IV Last administered on 08/01/16 09:45; Start 07/30/16 at 10:00; Stop 03/10 at 11:59; Status DC Potassium Chloride (KCl) 30 meq ONCE ONCE PO Last administered on 07/30/16 12: 12; Start 07/30/16 at 09:45; Stop 07/30/16 at 09:53; Status DC Potassium Chloride (KCl) 30 meq ONCE ONCE PO Last administered on 07/30/16 14: 00; Start 07/30/16 at 14:00; Stop 07/30/16 at 14:01; Status DC Insulin Detemir (Levemir Inj) 5 units HS SQ Last administered on 08/03/16 22: 33; Start 07/30/16 at 21:00 Melatonin (Melatonin) 5 mg HS PO Last administered on 08/03/16 22:32; Start at 21:00 Bupivacaine HCl (Marcaine Pf 0.5% Inj) 30 ml STK-MED ONCE .ROUTE ; Start at 10:12; Stop 07/31/16 at 10:13; Status DC Bupivacaine HCl/ Epinephrine Bitart (Sensorcaine-Epi 0.5% 50 ml Inj) 50 ml STK- MED ONCE .ROUTE ; Start 07/31/16 at 10:12; Stop 07/31/16 at 10:13; Status DC Bacitracin (Baciguent Oint) 15 applic STK-MED ONCE .ROUTE ; Start 07/31/16 at 10: 12; Stop 07/31/16 at 10:13; Status DC Dexamethasone Sodium Phosphate (Decadron Inj) 4 mg STK-MED ONCE .ROUTE Last administered on 3/9/17at 10:24; Start 07/31/16 at 10:22; Stop 07/31/16 at 10:23; Status DC Famotidine (Pepcid Inj) 20 mg STK-MED ONCE IV PUSH Last administered on t 10:23; Start 07/31/16 at 10:23; Stop 07/31/16 at 10:27; Status DC Fentanyl Citrate 500 mcg 500 mcg STK-MED ONCE .ROUTE ; Start 07/31/16 at 12:13; Stop 07/31/16 at 12:14; Status DC Gentamicin Sulfate/Sodium Chloride (Gentamicin Inj/ NS Irr Btl) 1,005 ml @ 0 mls/hr UNSCH PRN IRRIGATION DRESSING CHANGES; Start 07/31/16 at 13:30 Miscellaneous Information ALL NURSING DEPARTME... UNSCH PRN XX SEE LABEL COMMENTS; Start 07/31/16 at 13:30; Stop 08/01/16 at 13:29; Status DC A/P Assessment and Plan A/P Respiratory Failure - resolved Nebs scheduled, PRN May need CPAP at night Pulmonology Consulted, need sleep study as OP Altered mental status Poss Metabolic toxic encephalopathy-improved. Possible seizure. EEG with possible seizure - Hold all medications that could contribute. Hold anxiolytics and narcotic MRI brain with no acute abnormality. dc'ed Keppra and started on Depakote per neurology; decreased the dose due to worsening confusion. neurology follow-up appreciated. Psychosis. evaluated by psych. Peripheral vascular disease - Supportive care. Wound Care. - Pain control - F/U with vascular surgeon Diabetes - resumed levemir. - Insulin sliding scale for now. Cardiomyopathy - Coreg - Isosorbide -Diovan - Monitor BP Trend Hypothyroidism - TSH 9.150 - Synthroid 150mcg daily, check freeT4, may also be related to recent acute illness. Recheck in 4 weeks. Bilteral LE Cellulitis/ wounds Continue dressing changes per Dr Valdes podiatry recommendation. evaluated by - no further vascular procedures planned at this time. plastic surgery consulted- s/p debridement of bilateral leg wounds- possible need for hyperbaric oxygen therapy. V-tach with EF 35%- continue BB- consulted cardiology; patient declined further work-up- continue medical management.previously d/w ; cardiology will see prn- abnormal UA- UC with gram positive aung- - continue diflucan for one week. Hyponatremia - resolved- hypokalemia; replaced. anemia of chronic disease; will monitor periodically. DVT GI prophylaxis - Heparin and Pepcid Discharge Planning d/w case management- possible dc to SNF this week if ok with consultants. Conrad Clancy MD Aug 04, 2016 10:56
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
[2016-08-04] MEDS: MELATONIN 5 MG TAB PO SCH (23:00)
[2016-08-04] MEDS: VALSARTAN 80 MG TAB PO SCH (23:01)
[2016-08-04] MEDS: INSULIN DETEMIR 100 UNITS/ML VIAL SQ SCH (23:05)
[2016-08-05] VITALS (7 sets, daily range): BP systolic 132–158; BP diastolic 58–74; PULSE 66–76; RESP 16–18; TEMP 97–98.8; O2SAT 92–98
[2016-08-05] MEDS: CHLORHEXIDINE GLUCONATE 2 % 1 PACK (2 CLOTHS) TOP SCH (04:00)
[2016-08-05] MEDS: SODIUM CHLOR 0.9% 1000 ML INJ 1,000 ML IV SCH ×2 (04:19→16:12)
[2016-08-05] MEDS: HEPARIN SODIUM - SQ 10,000 UNITS/ML VIAL SQ SCH ×3 (06:18→21:44)
[2016-08-05] MEDS: ISOSORBIDE DINITRATE 5 MG TAB PO SCH ×3 (06:18→21:44)
[2016-08-05] MEDS: LEVOTHYROXINE SODIUM 150 MCG TAB PO SCH (06:18)
[2016-08-05] MEDS: INSULIN ASPART SUPPLEMENTAL SCALE SQ SCH ×4 (06:18→21:00)
[2016-08-05] MEDS: FAMOTIDINE 20 MG/2 ML VIAL IV PUSH SCH ×2 (09:00→21:43)
[2016-08-05] MEDS: LACTOBACILLUS ACIDOPHILUS TAB PO SCH ×3 (09:00→18:00)
[2016-08-05] MEDS: SODIUM CHLORIDE 0.9% FLUSH 5 ML FLUSH IV FLUSH SCH ×2 (09:00→21:45)
[2016-08-05] MEDS: DOCUSATE SODIUM 100 MG CAP PO SCH ×2 (09:00→21:00)
--- NOTE | 2016-08-05 11:23 | HHI.PR ---
Subjective Remarks in no acute distress. pain seems to be fairly controlled. no fever. d/w . Objective Vitals Vital Signs Date Time Temp Pulse Resp B/P Pulse Ox O2 Delivery O2 Flow Rate FiO2 08/05/16 08:00 98.8 68 18 151/58 96 08/05/16 08:00 96 Nasal Cannula 2.00 08/05/16 04:30 98.5 69 16 158/67 94 08/04/16 23:18 98.9 80 16 149/65 96 08/04/16 20:00 Room Air 08/04/16 20:00 75 08/04/16 19:30 98.2 78 16 150/66 95 08/04/16 17:56 92 21 08/04/16 16:00 98.0 74 18 138/92 92 08/04/16 12:00 98.4 65 18 157/68 95 I/O 08/04/16 08/04/16 08/04/16 08/05/16 08/05/16 08/05/16 07:00 15:00 23:00 07:00 15:00 23:00 Intake Total 733 ml 480 ml 1287 ml 240 ml Output Total 250 ml Balance 733 ml 480 ml 1287 ml -10 ml Intake Oral 100 ml 480 ml 0 ml 240 ml IV Total 633 ml 1287 ml Output Urine Total 250 ml # Voids 2 4 1 # Bowel Movements 0 2 0 0 Result Diagram: 08/03/16 0736 08/03/16 0736 Imaging Last Impressions Upper Extremity Ultrasound 07/28/16 0000 Signed Impressions: Service Date/Time: Thursday, July 28, 2016 14:34 - CONCLUSION: No DVT is identified within the right upper extremity. Alfredo Eng MD Chest X-Ray 07/20/16 0000 Signed Impressions: Service Date/Time: Wednesday, July 20, 2016 12:38 - CONCLUSION: Mild left base consolidation developing. Alfredo Sneed MD Brain MRI 07/20/16 0000 Signed Impressions: Service Date/Time: Wednesday, July 20, 2016 09:15 - CONCLUSION: No acute intracranial abnormality. Moderately severe chronic white matter changes, nonspecific but most likely small vessel ischemia. Alfredo Sneed MD Head CT 07/19/16 0000 Signed Impressions: Service Date/Time: Tuesday, July 19, 2016 09:58 - CONCLUSION: No acute intracranial findings. João Otoole MD Foot X-Ray 07/16/16 0000 Signed Impressions: Service Date/Time: Saturday, July 16, 2016 17:34 - CONCLUSION: 1. Nonspecific soft tissue swelling. No acute bone destruction demonstrated. 2. Mild talonavicular and navicular/cuneiform degenerative changes. 3. Second through fifth hammertoe. 4. Moderate-sized heel spur. Alfredo Sneed MD Objective Remarks GENERAL: This is a well-nourished, well-developed patient, in no apparent distress. CARDIOVASCULAR: Regular rate and irregular rhythm without murmurs, gallops, or rubs. RESPIRATORY: Clear to auscultation. Breath sounds equal bilaterally. No wheezes , rales, or rhonchi. GASTROINTESTINAL: Abdomen soft, non-tender, nondistended. Normal, active bowel sounds MUSCULOSKELETAL: both legs covered with clean dressing. NEURO: Alert & Oriented x4 to person, place, time, situation. Moves all ext x4 Procedures debridement of both leg wounds Medications and IVs Current Medications Sodium Chloride (NS 1000 ml Inj) 1,000 ml @ 84 mls/hr [id number] IV Last administered on 08/05/16 04:19; Start 07/15/16 at 19:42 IV Flush (NS Flush) 2 ml UNSCH PRN IV FLUSH FLUSH AFTER USING IV ACCESS Last administered on 07/24/16 04:49; Start 07/15/16 at 19:45 IV Flush (NS Flush) 2 ml BID IV FLUSH Last administered on 08/04/16 23:01; Start 07/15/16 at 21:00 Fentanyl Citrate (fentaNYL INJ) 50 mcg Q3H PRN IV PUSH Pain scale 7-10 &/or sedation Last administered on 07/15/16 21:44; Start 07/15/16 at 19:45; Stop at 11:51; Status DC Famotidine (Pepcid Inj) 20 mg Q12HR IV PUSH Last administered on 07/15/16 20: 19; Start 07/15/16 at 21:00; Stop 07/15/16 at 21:24; Status DC Ondansetron HCl (Zofran Inj) 4 mg Q6H PRN IV NAUSEA OR VOMITING Last administered on 07/31/16 13:23; Start 07/15/16 at 19:45 Metoclopramide HCl (Reglan Inj) 5 mg Q6H PRN IV NAUSEA OR VOMITING; Start 07/15 at 19:45 Docusate Sodium (Colace) 100 mg BID PO Last administered on 08/03/16 22:32; Start 07/15/16 at 21:00 Albuterol/ Ipratropium (Duoneb Neb) 1 ampule Q2HR NEB PRN INH WHEEZING; Start 07/15/16 at 19:45 Heparin Sodium (Porcine) (Heparin Inj) 5,000 units Q8HR SQ Last administered on 08/05/16 06:18; Start 07/15/16 at 22:00 Miscellaneous Information 1 Q361D XX Last administered on 07/15/16 19:45; Start 07/15/16 at 19:45 Chlorhexidine Gluconate (Chlorhexidine 2% Cloth) 3 pack Taper DAILY@04 TOP Last administered on 07/17/16 03:11; Start 07/16/16 at 04:00; Stop 07/12/17 at 03:59 Chlorhexidine Gluconate (Chlorhexidine 2% Cloth) 3 pack UNSCH PRN TOP HYGIENIC CARE; Start 07/15/16 at 19:45 Acetaminophen (Ofirmev Inj) 1,000 mg Q6H PRN IV PAIN SCALE 1 TO 6; Start at 20:00; Stop 07/18/16 at 11:51; Status DC Ketorolac Tromethamine (Toradol Inj) 30 mg Q6H PRN IM PAIN SCALE 1 TO 7; Start 07/15/16 at 20:00; Stop 07/15/16 at 20:10; Status DC Ketorolac Tromethamine (Toradol Inj) 30 mg Q6H PRN IV PUSH PAIN 1-6 Last administered on 07/15/16 20:34; Start 07/15/16 at 20:15; Stop 07/18/16 at 11:51 ; Status DC Carvedilol (Coreg) 25 mg BID PO Last administered on 08/04/16 23:00; Start at 21:00 Fluconazole (Diflucan) 75 mg DAILY@17 PO Last administered on 07/16/16 17:03; Start 07/16/16 at 17:00; Stop 07/17/16 at 08:09; Status DC Isosorbide Dinitrate (Isordil) 5 mg Q8HR PO Last administered on 08/05/16 06: 18; Start 07/15/16 at 22:00 Lactobacillus Acidophilus (Lactinex) 1 tab TID PO Last administered on 18:00; Start 07/16/16 at 09:00 Levofloxacin (Levaquin) 250 mg Q48H PO Last administered on 07/21/16 21:05; Start 07/15/16 at 22:00; Stop 07/23/16 at 16:37; Status DC Levothyroxine Sodium (Synthroid) 150 mcg DAILY@06 PO Last administered on 06:18; Start 07/16/16 at 06:00 Liothyronine Sodium (Cytomel) 5 mcg DAILY PO Last administered on 08/04/16 09: 38; Start 07/16/16 at 09:00 Non-Formulary Medication 325 mg DAILY PO ; Start 07/16/16 at 09:00; Status UNV Miscellaneous (Pill Splitter) 1 ea UNSCH PRN OTHER SEE LABEL COMMENTS; Start at 21:30 Famotidine (Pepcid Inj) 10 mg Q12HR IV PUSH Last administered on 07/17/16 07: 29; Start 07/16/16 at 09:00; Stop 07/18/16 at 10:59; Status DC Aspirin (Ecotrin Ec) 325 mg DAILY PO Last administered on 08/04/16 09:38; Start 07/16/16 at 09:00 Etomidate (Amidate Inj) 20 mg STK-MED ONCE .ROUTE ; Start 07/16/16 at 17:07; Stop 07/16/16 at 17:08; Status DC Famotidine (Pepcid Inj) 20 mg Q12HR IV PUSH Last administered on 08/04/16 23: 01; Start 07/18/16 at 21:00 Hydromorphone HCl (Dilaudid Pf Inj) 0.5 mg ONCE ONCE IV PUSH Last administered on 08/04/16 18:00; Start 07/18/16 at 11:45; Stop 07/18/16 at 11:46 ; Status DC Hydromorphone HCl (Dilaudid Pf Inj) 0.5 mg Q4H PRN IV PUSH breakthrough pain / dresing lori Last administered on 08/03/16 15:52; Start 07/18/16 at 11:45 Acetaminophen/ Hydrocodone Bitart (Modena 5-325 Mg) 1 tab Q6H PRN PO pain 2-10 Last administered on 08/04/16 09:52; Start 07/18/16 at 11:45 Diphenhydramine HCl 50 mg 50 mg STK-MED ONCE .ROUTE ; Start 07/19/16 at 11:20; Stop 07/19/16 at 11:21; Status DC Levetriacetam/ Sodium Chloride (Keppra Inj/NS Inj) 105 ml @ 420 mls/hr Q12HR IV Last administered on 07/20/16 08:19; Start 07/19/16 at 13:00; Stop at 16:25; Status DC Haloperidol Lactate (Haldol Inj) 2 mg Q6H PRN IM aggittation Last administered on 07/30/16 01:29; Start 07/19/16 at 12:30; Status Hold Lorazepam 1 mg 1 mg Q6H PRN IV PUSH seizures/agiatation Last administered on 06:09; Start 07/19/16 at 12:30; Status Hold Valproate Sodium 500 mg/Sodium Chloride 105 ml @ 105 mls/hr Q8H IV Last administered on 07/25/16 09:26; Start 07/20/16 at 18:00; Stop 07/25/16 at 09:54; Status DC Cefepime HCl/ Sodium Chloride (Maxipime Inj/NS Inj) 100 ml @ 200 mls/hr Q12H IV Last administered on 07/27/16 02:43; Start 07/21/16 at 15:00; Stop 07/27/16 at 09:00; Status DC Dextrose (D50w (Vial) Inj) 25 ml UNSCH PRN IV PUSH HYPOGLYCEMIA-SEE COMMENTS; Start 07/23/16 at 11:00 Glucagon (Glucagon Inj) 1 mg UNSCH PRN OTHER HYPOGLYCEMIA-SEE COMMENTS; Start 07/23/16 at 11:00 Insulin Aspart (NovoLOG SUPPLEMENTAL SCALE) 1 ACHS SLIDING SCALE SQ Last administered on 08/04/16 23:05; Start 07/23/16 at 11:00 Potassium Chloride (KCl) 40 meq ONCE ONCE PO Last administered on 07/24/16 13: 00; Start 07/24/16 at 13:00; Stop 07/24/16 at 13:01; Status DC Valproic Acid (Depakene) 500 mg Q8HR PO Last administered on 07/26/16 14:52; Start 07/25/16 at 15:00; Stop 07/26/16 at 17:39; Status DC Potassium Chloride (KCl) 30 meq ONCE ONCE PO Last administered on 07/26/16 19: 30; Start 07/26/16 at 16:30; Stop 07/26/16 at 16:36; Status DC Potassium Chloride (KCl) 30 meq ONCE ONCE PO Last administered on 07/26/16 22: 16; Start 07/26/16 at 20:00; Stop 07/26/16 at 20:01; Status DC Valproic Acid (Depakene) 250 mg Q12HR PO Last administered on 08/04/16 23:00; Start 07/27/16 at 09:00 Hydromorphone HCl (Dilaudid Pf Inj) 0.5 mg ONCE ONCE IV PUSH Last administered on 07/27/16 10:42; Start 07/27/16 at 10:45; Stop 07/27/16 at 10:46; Status DC Valsartan (Diovan) 80 mg HS PO Last administered on 08/04/16 23:01; Start 07/27 at 21:00 Enalaprilat (Vasotec Inj) 1.25 mg Q8H PRN IV PUSH SBP >180 OR DBP >100; Start 07/28/16 at 16:00 Fluconazole 100 mg 100 mg DAILY PO Last administered on 08/04/16 09:37; Start 07/30/16 at 09:45; Stop 08/06/16 at 09:00 Ceftriaxone Sodium/Sodium Chloride (Rocephin Inj/NS Inj) 100 ml @ 200 mls/hr Q24H IV Last administered on 08/01/16 09:45; Start 07/30/16 at 10:00; Stop 03/10 at 11:59; Status DC Potassium Chloride (KCl) 30 meq ONCE ONCE PO Last administered on 07/30/16 12: 12; Start 07/30/16 at 09:45; Stop 07/30/16 at 09:53; Status DC Potassium Chloride (KCl) 30 meq ONCE ONCE PO Last administered on 07/30/16 14: 00; Start 07/30/16 at 14:00; Stop 07/30/16 at 14:01; Status DC Insulin Detemir (Levemir Inj) 5 units HS SQ Last administered on 08/04/16 23: 05; Start 07/30/16 at 21:00 Melatonin (Melatonin) 5 mg HS PO Last administered on 08/04/16 23:00; Start at 21:00 Bupivacaine HCl (Marcaine Pf 0.5% Inj) 30 ml STK-MED ONCE .ROUTE ; Start at 10:12; Stop 07/31/16 at 10:13; Status DC Bupivacaine HCl/ Epinephrine Bitart (Sensorcaine-Epi 0.5% 50 ml Inj) 50 ml STK- MED ONCE .ROUTE ; Start 07/31/16 at 10:12; Stop 07/31/16 at 10:13; Status DC Bacitracin (Baciguent Oint) 15 applic STK-MED ONCE .ROUTE ; Start 07/31/16 at 10: 12; Stop 07/31/16 at 10:13; Status DC Dexamethasone Sodium Phosphate (Decadron Inj) 4 mg STK-MED ONCE .ROUTE Last administered on 07/31/16 10:24; Start 07/31/16 at 10:22; Stop 07/31/16 at 10:23; Status DC Famotidine (Pepcid Inj) 20 mg STK-MED ONCE IV PUSH Last administered on 10:23; Start 07/31/16 at 10:23; Stop 07/31/16 at 10:27; Status DC Fentanyl Citrate 500 mcg 500 mcg STK-MED ONCE .ROUTE ; Start 07/31/16 at 12:13; Stop 07/31/16 at 12:14; Status DC Gentamicin Sulfate/Sodium Chloride (Gentamicin Inj/ NS Irr Btl) 1,005 ml @ 0 mls/hr UNSCH PRN IRRIGATION DRESSING CHANGES; Start 07/31/16 at 13:30 Miscellaneous Information ALL NURSING DEPARTME... UNSCH PRN XX SEE LABEL COMMENTS; Start 07/31/16 at 13:30; Stop 08/01/16 at 13:29; Status DC Propofol (Diprivan 200 Mg/20 ml Inj) 200 mg STK-MED ONCE IV ; Start 07/31/16 at 12:42; Stop 08/04/16 at 12:43; Status DC Ephedrine Sulfate (ePHEDrine/NS 25 MG/5 ML SYR) 25 mg STK-MED ONCE IV ; Start at 12:42; Stop 08/04/16 at 12:43; Status DC Phenylephrine HCl (Neosynephrine/ NS 1000 Mcg/10ml Syr) 1,000 mcg STK-MED ONCE IV ; Start 07/31/16 at 12:42; Stop 08/04/16 at 12:43; Status DC Ondansetron HCl (Zofran Inj) 4 mg STK-MED ONCE IV PUSH ; Start 07/31/16 at 12:42 ; Stop 08/04/16 at 12:43; Status DC A/P Assessment and Plan A/P Respiratory Failure - resolved Nebs scheduled, PRN May need CPAP at night Pulmonology Consulted, need sleep study as OP Bilteral LE Cellulitis/ wounds Continue dressing changes per podiatry recommendation. previously evaluated by - will reconsult vascular surgery for possible right foot ischemia plastic surgery consulted- s/p debridement of bilateral leg wounds- previously d/w and recommended hyperbaric oxygen therapy; wound care physician was consulted. Altered mental status Poss Metabolic toxic encephalopathy-improved. Possible seizure. EEG with possible seizure - Hold all medications that could contribute. Hold anxiolytics and narcotic MRI brain with no acute abnormality. dc'ed Kevon and started on Depakote per neurology; decreased the dose due to worsening confusion. neurology follow-up appreciated. Psychosis. evaluated by psych. Peripheral vascular disease - Supportive care. Wound Care. - Pain control - F/U with vascular surgeon Diabetes - resumed levemir. - Insulin sliding scale for now. Cardiomyopathy - Coreg - Isosorbide -Diovan - Monitor BP Trend Hypothyroidism - TSH 9.150 - Synthroid 150mcg daily, check freeT4, may also be related to recent acute illness. Recheck in 4 weeks. V-tach with EF 35%- with no recurrence; continue BB- consulted cardiology; patient declined further work-up- continue medical management. previously d/w ; cardiology will see prn- abnormal UA- UC with gram positive aung- - treated with Diflucan. Hyponatremia - resolved- hypokalemia; replaced. anemia of chronic disease; will monitor periodically. DVT GI prophylaxis - Heparin and Pepcid Discharge Planning d/w case management- possible dc to SNF this week if ok with consultants. Conrad Clancy MD Aug 05, 2016 11:23
[2016-08-05] MEDS: CARVEDILOL 12.5 MG TAB PO SCH ×2 (11:34→21:43)
[2016-08-05] MEDS: FLUCONAZOLE 100 MG TAB PO SCH (11:34)
[2016-08-05] MEDS: LIOTHYRONINE SODIUM 5 MCG TAB PO SCH (11:34)
[2016-08-05] MEDS: ASPIRIN EC 325 MG TABEC PO SCH (11:35)
[2016-08-05] MEDS: VALPROIC ACID 250 MG CAP PO SCH ×2 (11:35→21:44)
[2016-08-05] MEDS: ACETAMINOPHEN/HYDROcodone 325 MG/5 MG TAB PO PRN ×2 (11:35→21:44)
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
--- NOTE | 2016-08-05 16:48 | HHI.PR ---
Addendum to Inpatient Note Addendum Reason: Additional Documentation Additional Information D/w : extensive wound debridement done. Does not need any antibiotics for his part of surgery. Have D/w Vascular in past: no need for antibiotics from their standpoint. Gangrene is dry. d.w above. Will sign off please call back if any change in clinical condition or questions. Charisse Pedraza MD Aug 05, 2016 16:48
[2016-08-05] MEDS: MELATONIN 5 MG TAB PO SCH (21:00)
[2016-08-05] MEDS: VALSARTAN 80 MG TAB PO SCH (21:44)
[2016-08-05] MEDS: INSULIN DETEMIR 100 UNITS/ML VIAL SQ SCH (21:45)
[2016-08-06] VITALS (8 sets, daily range): BP systolic 121–181; BP diastolic 57–79; PULSE 67–82; RESP 16–20; TEMP 97.7–99; O2SAT 94–98
[2016-08-06] MEDS: CHLORHEXIDINE GLUCONATE 2 % 1 PACK (2 CLOTHS) TOP SCH (04:00)
[2016-08-06] MEDS: ACETAMINOPHEN/HYDROcodone 325 MG/5 MG TAB PO PRN ×3 (04:53→18:26)
[2016-08-06] MEDS: ISOSORBIDE DINITRATE 5 MG TAB PO SCH ×3 (04:53→22:30)
[2016-08-06] MEDS: LEVOTHYROXINE SODIUM 150 MCG TAB PO SCH (04:53)
[2016-08-06] MEDS: HEPARIN SODIUM - SQ 10,000 UNITS/ML VIAL SQ SCH ×3 (04:54→22:31)
[2016-08-06] MEDS: INSULIN ASPART SUPPLEMENTAL SCALE SQ SCH ×4 (06:07→22:32)
[2016-08-06] MEDS: LACTOBACILLUS ACIDOPHILUS TAB PO SCH ×3 (09:00→18:25)
[2016-08-06] MEDS: VALPROIC ACID 250 MG CAP PO SCH ×2 (09:00→22:30)
[2016-08-06] MEDS: CARVEDILOL 12.5 MG TAB PO SCH ×2 (09:00→22:30)
[2016-08-06] MEDS: DOCUSATE SODIUM 100 MG CAP PO SCH ×2 (09:00→21:00)
[2016-08-06] MEDS: LIOTHYRONINE SODIUM 5 MCG TAB PO SCH (09:00)
[2016-08-06] MEDS: FAMOTIDINE 20 MG/2 ML VIAL IV PUSH SCH ×2 (09:00→22:31)
[2016-08-06] MEDS: ASPIRIN EC 325 MG TABEC PO SCH (09:01)
[2016-08-06] MEDS: SODIUM CHLORIDE 0.9% FLUSH 5 ML FLUSH IV FLUSH SCH ×2 (09:01→22:34)
--- NOTE | 2016-08-06 11:12 | HHI.PR ---
Subjective Remarks f/u; wound on both legs resting comfortably with no distress. pain is controlled. no fever. no new complaints. Objective Vitals Vital Signs Date Time Temp Pulse Resp B/P Pulse Ox O2 Delivery O2 Flow Rate FiO2 08/06/16 09:42 71 08/06/16 08:00 99.0 72 16 181/79 96 08/06/16 04:00 98.3 67 18 179/77 95 08/06/16 00:00 98.9 75 16 122/60 94 08/05/16 20:24 76 08/05/16 20:15 Room Air 08/05/16 20:00 98.4 73 18 157/70 92 08/05/16 16:00 97.0 67 18 138/63 97 08/05/16 11:47 98.0 71 18 132/74 98 I/O 08/05/16 08/05/16 08/05/16 08/06/16 08/06/16 08/06/16 07:00 15:00 23:00 07:00 15:00 23:00 Intake Total 240 ml 960 ml 912 ml 912 ml Output Total 250 ml 150 ml Balance -10 ml 960 ml 762 ml 912 ml Intake Oral 240 ml 960 ml 240 ml 240 ml IV Total 672 ml 672 ml Output Urine Total 250 ml 150 ml # Voids 3 0 # Bowel Movements 0 0 0 1 Result Diagram: 08/03/16 0736 08/03/16 0736 Imaging Last Impressions Upper Extremity Ultrasound 07/28/16 0000 Signed Impressions: Service Date/Time: Thursday, July 28, 2016 14:34 - CONCLUSION: No DVT is identified within the right upper extremity. Alfredo Eng MD Chest X-Ray 07/20/16 0000 Signed Impressions: Service Date/Time: Wednesday, July 20, 2016 12:38 - CONCLUSION: Mild left base consolidation developing. Alfredo Sneed MD Brain MRI 07/20/16 0000 Signed Impressions: Service Date/Time: Wednesday, July 20, 2016 09:15 - CONCLUSION: No acute intracranial abnormality. Moderately severe chronic white matter changes, nonspecific but most likely small vessel ischemia. Alfredo Sneed MD Head CT 07/19/16 0000 Signed Impressions: Service Date/Time: Tuesday, July 19, 2016 09:58 - CONCLUSION: No acute intracranial findings. João R Otoole, MD Foot X-Ray 07/16/16 0000 Signed Impressions: Service Date/Time: Saturday, July 16, 2016 17:34 - CONCLUSION: 1. Nonspecific soft tissue swelling. No acute bone destruction demonstrated. 2. Mild talonavicular and navicular/cuneiform degenerative changes. 3. Second through fifth hammertoe. 4. Moderate-sized heel spur. Alfredo Sneed MD Objective Remarks GENERAL: This is a well-nourished, well-developed patient, in no apparent distress. CARDIOVASCULAR: Regular rate and irregular rhythm without murmurs, gallops, or rubs. RESPIRATORY: Clear to auscultation. Breath sounds equal bilaterally. No wheezes , rales, or rhonchi. GASTROINTESTINAL: Abdomen soft, non-tender, nondistended. Normal, active bowel sounds MUSCULOSKELETAL: both legs covered with clean dressing. NEURO: Alert & Oriented x4 to person, place, time, situation. Moves all ext x4 Procedures debridement of both leg wounds Medications and IVs Current Medications Sodium Chloride (NS 1000 ml Inj) 1,000 ml @ 84 mls/hr [id number] IV Last administered on 08/05/16 16:12; Start 07/15/16 at 19:42; Status Hold IV Flush (NS Flush) 2 ml UNSCH PRN IV FLUSH FLUSH AFTER USING IV ACCESS Last administered on 07/24/16 04:49; Start 07/15/16 at 19:45 IV Flush (NS Flush) 2 ml BID IV FLUSH Last administered on 08/06/16 09:01; Start 07/15/16 at 21:00 Fentanyl Citrate (fentaNYL INJ) 50 mcg Q3H PRN IV PUSH Pain scale 7-10 &/or sedation Last administered on 07/15/16 21:44; Start 07/15/16 at 19:45; Stop at 11:51; Status DC Famotidine (Pepcid Inj) 20 mg Q12HR IV PUSH Last administered on 07/15/16 20: 19; Start 07/15/16 at 21:00; Stop 07/15/16 at 21:24; Status DC Ondansetron HCl (Zofran Inj) 4 mg Q6H PRN IV NAUSEA OR VOMITING Last administered on 07/31/16 13:23; Start 07/15/16 at 19:45 Metoclopramide HCl (Reglan Inj) 5 mg Q6H PRN IV NAUSEA OR VOMITING; Start 07/15 at 19:45 Docusate Sodium (Colace) 100 mg BID PO Last administered on 08/06/16 09:00; Start 07/15/16 at 21:00 Albuterol/ Ipratropium (Duoneb Neb) 1 ampule Q2HR NEB PRN INH WHEEZING; Start 07/15/16 at 19:45 Heparin Sodium (Porcine) (Heparin Inj) 5,000 units Q8HR SQ Last administered on 08/06/16 04:54; Start 07/15/16 at 22:00 Miscellaneous Information 1 [id number] Last administered on 07/15/16 19:45; Start 07/15/16 at 19:45 Chlorhexidine Gluconate (Chlorhexidine 2% Cloth) 3 pack Taper DAILY@04 TOP Last administered on 07/17/16 03:11; Start 07/16/16 at 04:00; Stop 07/12/17 at 03:59 Chlorhexidine Gluconate (Chlorhexidine 2% Cloth) 3 pack UNSCH PRN TOP HYGIENIC CARE; Start 07/15/16 at 19:45 Acetaminophen (Ofirmev Inj) 1,000 mg Q6H PRN IV PAIN SCALE 1 TO 6; Start at 20:00; Stop 07/18/16 at 11:51; Status DC Ketorolac Tromethamine (Toradol Inj) 30 mg Q6H PRN IM PAIN SCALE 1 TO 7; Start 07/15/16 at 20:00; Stop 07/15/16 at 20:10; Status DC Ketorolac Tromethamine (Toradol Inj) 30 mg Q6H PRN IV PUSH PAIN 1-6 Last administered on 07/15/16 20:34; Start 07/15/16 at 20:15; Stop 07/18/16 at 11:51 ; Status DC Carvedilol (Coreg) 25 mg BID PO Last administered on 08/06/16 09:00; Start at 21:00 Fluconazole (Diflucan) 75 mg DAILY@17 PO Last administered on 07/16/16 17:03; Start 07/16/16 at 17:00; Stop 07/17/16 at 08:09; Status DC Isosorbide Dinitrate (Isordil) 5 mg Q8HR PO Last administered on 08/06/16 04: 53; Start 07/15/16 at 22:00 Lactobacillus Acidophilus (Lactinex) 1 tab TID PO Last administered on 09:00; Start 07/16/16 at 09:00 Levofloxacin (Levaquin) 250 mg Q48H PO Last administered on 07/21/16 21:05; Start 07/15/16 at 22:00; Stop 07/23/16 at 16:37; Status DC Levothyroxine Sodium (Synthroid) 150 mcg DAILY@06 PO Last administered on 04:53; Start 07/16/16 at 06:00 Liothyronine Sodium (Cytomel) 5 mcg DAILY PO Last administered on 08/06/16 09: 00; Start 07/16/16 at 09:00 Non-Formulary Medication 325 mg DAILY PO ; Start 07/16/16 at 09:00; Status UNV Miscellaneous (Pill Splitter) 1 ea UNSCH PRN OTHER SEE LABEL COMMENTS; Start at 21:30 Famotidine (Pepcid Inj) 10 mg Q12HR IV PUSH Last administered on 07/17/16 07: 29; Start 07/16/16 at 09:00; Stop 07/18/16 at 10:59; Status DC Aspirin (Ecotrin Ec) 325 mg DAILY PO Last administered on 08/06/16 09:01; Start 07/16/16 at 09:00 Etomidate (Amidate Inj) 20 mg STK-MED ONCE .ROUTE ; Start 07/16/16 at 17:07; Stop 07/16/16 at 17:08; Status DC Famotidine (Pepcid Inj) 20 mg Q12HR IV PUSH Last administered on 08/06/16 09: 00; Start 07/18/16 at 21:00 Hydromorphone HCl (Dilaudid Pf Inj) 0.5 mg ONCE ONCE IV PUSH Last administered on 08/04/16 18:00; Start 07/18/16 at 11:45; Stop 07/18/16 at 11:46 ; Status DC Hydromorphone HCl (Dilaudid Pf Inj) 0.5 mg Q4H PRN IV PUSH breakthrough pain / dresing lori Last administered on 08/03/16 15:52; Start 07/18/16 at 11:45 Acetaminophen/ Hydrocodone Bitart ([place] 5-325 Mg) 1 tab Q6H PRN PO pain 2-10 Last administered on 08/06/16 10:39; Start 07/18/16 at 11:45 Diphenhydramine HCl 50 mg 50 mg STK-MED ONCE .ROUTE ; Start 07/19/16 at 11:20; Stop 07/19/16 at 11:21; Status DC Levetriacetam/ Sodium Chloride (Keppra Inj/NS Inj) 105 ml @ 420 mls/hr Q12HR IV Last administered on 07/20/16 08:19; Start 07/19/16 at 13:00; Stop at 16:25; Status DC Haloperidol Lactate (Haldol Inj) 2 mg Q6H PRN IM aggittation Last administered on 07/30/16 01:29; Start 07/19/16 at 12:30; Status Hold Lorazepam 1 mg 1 mg Q6H PRN IV PUSH seizures/agiatation Last administered on 06:09; Start 07/19/16 at 12:30; Status Hold Valproate Sodium 500 mg/Sodium Chloride 105 ml @ 105 mls/hr Q8H IV Last administered on 07/25/16 09:26; Start 07/20/16 at 18:00; Stop 07/25/16 at 09:54; Status DC Cefepime HCl/ Sodium Chloride (Maxipime Inj/NS Inj) 100 ml @ 200 mls/hr Q12H IV Last administered on 07/27/16 02:43; Start 07/21/16 at 15:00; Stop 07/27/16 at 09:00; Status DC Dextrose (D50w (Vial) Inj) 25 ml UNSCH PRN IV PUSH HYPOGLYCEMIA-SEE COMMENTS; Start 07/23/16 at 11:00 Glucagon (Glucagon Inj) 1 mg UNSCH PRN OTHER HYPOGLYCEMIA-SEE COMMENTS; Start 07/23/16 at 11:00 Insulin Aspart (NovoLOG SUPPLEMENTAL SCALE) 1 ACHS SLIDING SCALE SQ Last administered on 08/04/16 23:05; Start 07/23/16 at 11:00 Potassium Chloride (KCl) 40 meq ONCE ONCE PO Last administered on 07/24/16 13: 00; Start 07/24/16 at 13:00; Stop 07/24/16 at 13:01; Status DC Valproic Acid (Depakene) 500 mg Q8HR PO Last administered on 07/26/16 14:52; Start 07/25/16 at 15:00; Stop 07/26/16 at 17:39; Status DC Potassium Chloride (KCl) 30 meq ONCE ONCE PO Last administered on 07/26/16 19: 30; Start 07/26/16 at 16:30; Stop 07/26/16 at 16:36; Status DC Potassium Chloride (KCl) 30 meq ONCE ONCE PO Last administered on 07/26/16 22: 16; Start 07/26/16 at 20:00; Stop 07/26/16 at 20:01; Status DC Valproic Acid (Depakene) 250 mg Q12HR PO Last administered on 08/06/16 09:00; Start 07/27/16 at 09:00 Hydromorphone HCl (Dilaudid Pf Inj) 0.5 mg ONCE ONCE IV PUSH Last administered on 07/27/16 10:42; Start 07/27/16 at 10:45; Stop 07/27/16 at 10:46; Status DC Valsartan (Diovan) 80 mg HS PO Last administered on 08/05/16 21:44; Start 07/27 at 21:00 Enalaprilat (Vasotec Inj) 1.25 mg Q8H PRN IV PUSH SBP >180 OR DBP >100; Start 07/28/16 at 16:00 Fluconazole 100 mg 100 mg DAILY PO Last administered on 08/05/16 11:34; Start 07/30/16 at 09:45; Stop 08/05/16 at 16:53; Status DC Ceftriaxone Sodium/Sodium Chloride (Rocephin Inj/NS Inj) 100 ml @ 200 mls/hr Q24H IV Last administered on 08/01/16 09:45; Start 07/30/16 at 10:00; Stop 03/10 at 11:59; Status DC Potassium Chloride (KCl) 30 meq ONCE ONCE PO Last administered on 07/30/16 12: 12; Start 07/30/16 at 09:45; Stop 07/30/16 at 09:53; Status DC Potassium Chloride (KCl) 30 meq ONCE ONCE PO Last administered on 07/30/16 14: 00; Start 07/30/16 at 14:00; Stop 07/30/16 at 14:01; Status DC Insulin Detemir (Levemir Inj) 5 units HS SQ Last administered on 08/05/16 21: 45; Start 07/30/16 at 21:00 Melatonin (Melatonin) 5 mg HS PO Last administered on 08/05/16 21:00; Start at 21:00 Bupivacaine HCl (Marcaine Pf 0.5% Inj) 30 ml STK-MED ONCE .ROUTE ; Start at 10:12; Stop 07/31/16 at 10:13; Status DC Bupivacaine HCl/ Epinephrine Bitart (Sensorcaine-Epi 0.5% 50 ml Inj) 50 ml STK- MED ONCE .ROUTE ; Start 07/31/16 at 10:12; Stop 07/31/16 at 10:13; Status DC Bacitracin (Baciguent Oint) 15 applic STK-MED ONCE .ROUTE ; Start 07/31/16 at 10: 12; Stop 07/31/16 at 10:13; Status DC Dexamethasone Sodium Phosphate (Decadron Inj) 4 mg STK-MED ONCE .ROUTE Last administered on 07/31/16 10:24; Start 07/31/16 at 10:22; Stop 07/31/16 at 10:23; Status DC Famotidine (Pepcid Inj) 20 mg STK-MED ONCE IV PUSH Last administered on 10:23; Start 07/31/16 at 10:23; Stop 07/31/16 at 10:27; Status DC Fentanyl Citrate 500 mcg 500 mcg STK-MED ONCE .ROUTE ; Start 07/31/16 at 12:13; Stop 07/31/16 at 12:14; Status DC Gentamicin Sulfate/Sodium Chloride (Gentamicin Inj/ NS Irr Btl) 1,005 ml @ 0 mls/hr UNSCH PRN IRRIGATION DRESSING CHANGES; Start 07/31/16 at 13:30 Miscellaneous Information ALL NURSING DEPARTME... UNSCH PRN XX SEE LABEL COMMENTS; Start 07/31/16 at 13:30; Stop 08/01/16 at 13:29; Status DC Propofol (Diprivan 200 Mg/20 ml Inj) 200 mg STK-MED ONCE IV ; Start 07/31/16 at 12:42; Stop 08/04/16 at 12:43; Status DC Ephedrine Sulfate (ePHEDrine/NS 25 MG/5 ML SYR) 25 mg STK-MED ONCE IV ; Start at 12:42; Stop 08/04/16 at 12:43; Status DC Phenylephrine HCl (Neosynephrine/ NS 1000 Mcg/10ml Syr) 1,000 mcg STK-MED ONCE IV ; Start 07/31/16 at 12:42; Stop 08/04/16 at 12:43; Status DC Ondansetron HCl (Zofran Inj) 4 mg STK-MED ONCE IV PUSH ; Start 07/31/16 at 12:42 ; Stop 08/04/16 at 12:43; Status DC A/P Assessment and Plan A/P Respiratory Failure - resolved Nebs scheduled, PRN May need CPAP at night Pulmonology Consulted, need sleep study as OP Bilateral LE Cellulitis/ wounds with PVD Continue dressing changes per podiatry recommendation. previously evaluated by for left leg ischemia- reconsulted vascular surgery ( 08/05) for possible right foot ischemia. plastic surgery consulted- s/p debridement of bilateral leg wounds- previously d/w and recommended hyperbaric oxygen therapy;evaluated by ; patient must go home before staring hyperbaric oxygen. also d/w Dr. Pedraza ( 08/06) who recommended no further antibiotic therapy at this time. Altered mental status Poss Metabolic toxic encephalopathy-improved. Possible seizure. EEG with possible seizure - Hold all medications that could contribute. MRI brain with no acute abnormality. dc'ed Keppra and started on Depakote per neurology. neurology follow-up appreciated. Psychosis. evaluated by psych. Diabetes - continue levemir. - Insulin sliding scale for now. Cardiomyopathy - Coreg - Isosorbide -Diovan - Monitor BP Trend Hypothyroidism - TSH 9.150 - Synthroid 150mcg daily, check freeT4, may also be related to recent acute illness. Recheck in 4 weeks. V-tach with EF 35%- with no recurrence; continue BB- consulted cardiology; patient declined further work-up- continue medical management. previously d/w ; cardiology will see prn- abnormal UA- UC with gram positive aung- - treated with Diflucan. Hyponatremia - resolved- hypokalemia; replaced. anemia of chronic disease; will monitor periodically. DVT GI prophylaxis - Heparin and Pepcid Discharge Planning d/w Dr. Aquino; patient needs to go home in order to get hyperbaric oxygen therapy- however the patient might need to be discharged to SNF at this time. d/w the daughter and gave her an update. dc planning in progress. Conrad Clancy MD Aug 06, 2016 11:11
[2016-08-06] MEDS: HYDROmorphone HCL PF 1 MG/ML VIAL IV PUSH PRN ×2 (15:40→22:53)
[2016-08-06] MEDS: VALSARTAN 80 MG TAB PO SCH (22:30)
[2016-08-06] MEDS: MELATONIN 5 MG TAB PO SCH (22:30)
[2016-08-06] MEDS: INSULIN DETEMIR 100 UNITS/ML VIAL SQ SCH (22:32)
[2016-08-07] VITALS (7 sets, daily range): BP systolic 132–151; BP diastolic 60–67; PULSE 62–77; RESP 18–20; TEMP 98.1–99.3; O2SAT 94–97
[2016-08-07] MEDS: CHLORHEXIDINE GLUCONATE 2 % 1 PACK (2 CLOTHS) TOP SCH (04:00)
[2016-08-07] MEDS: LEVOTHYROXINE SODIUM 150 MCG TAB PO SCH (05:37)
[2016-08-07] MEDS: HEPARIN SODIUM - SQ 10,000 UNITS/ML VIAL SQ SCH ×3 (05:37→22:26)
[2016-08-07] MEDS: ACETAMINOPHEN/HYDROcodone 325 MG/5 MG TAB PO PRN ×2 (05:37→17:13)
[2016-08-07] MEDS: ISOSORBIDE DINITRATE 5 MG TAB PO SCH ×3 (05:37→22:27)
[2016-08-07] MEDS: INSULIN ASPART SUPPLEMENTAL SCALE SQ SCH ×4 (07:00→21:00)
[2016-08-07] MEDS: SODIUM CHLORIDE 0.9% FLUSH 5 ML FLUSH IV FLUSH SCH ×2 (09:00→21:00)
[2016-08-07] MEDS: LACTOBACILLUS ACIDOPHILUS TAB PO SCH ×3 (09:46→17:12)
[2016-08-07] MEDS: FAMOTIDINE 20 MG/2 ML VIAL IV PUSH SCH ×2 (09:46→22:26)
[2016-08-07] MEDS: LIOTHYRONINE SODIUM 5 MCG TAB PO SCH (09:46)
[2016-08-07] MEDS: DOCUSATE SODIUM 100 MG CAP PO SCH ×2 (09:46→21:00)
[2016-08-07] MEDS: ASPIRIN EC 325 MG TABEC PO SCH (09:46)
[2016-08-07] MEDS: CARVEDILOL 12.5 MG TAB PO SCH ×2 (09:46→22:27)
[2016-08-07] MEDS: VALPROIC ACID 250 MG CAP PO SCH ×2 (11:23→22:32)
--- NOTE | 2016-08-07 15:12 | HHI.PR ---
Subjective Remarks pt tells me that she feels a little nauseous but doesn't want anything for it. Denies any CP/SOB/N/V Objective Vitals Vital Signs Date Time Temp Pulse Resp B/P Pulse Ox O2 Delivery O2 Flow Rate FiO2 08/07/16 11:54 97 21 08/07/16 09:00 Room Air 08/07/16 08:00 98.1 68 20 132/60 97 08/07/16 04:00 99.1 62 18 143/64 95 08/07/16 00:00 98.9 72 18 132/63 97 08/06/16 21:00 Room Air 08/06/16 20:41 82 08/06/16 20:00 98.5 79 20 154/72 96 08/06/16 16:10 20 08/06/16 16:00 98.4 77 18 121/57 98 I/O 08/06/16 08/06/16 08/06/16 08/07/16 08/07/16 08/07/16 07:00 15:00 23:00 07:00 15:00 23:00 Intake Total 912 ml 237 ml 120 ml 0 ml Balance 912 ml 237 ml 120 ml 0 ml Intake Oral 240 ml 237 ml 120 ml 0 ml IV Total 672 ml # Voids 0 2 1 1 # Bowel Movements 1 0 1 1 Result Diagram: 08/03/16 0736 08/03/16 0736 Imaging Last Impressions Upper Extremity Ultrasound 07/28/16 0000 Signed Impressions: Service Date/Time: Thursday, July 28, 2016 14:34 - CONCLUSION: No DVT is identified within the right upper extremity. Alfredo Eng MD Chest X-Ray 07/20/16 0000 Signed Impressions: Service Date/Time: Wednesday, July 20, 2016 12:38 - CONCLUSION: Mild left base consolidation developing. Alfredo Sneed MD Brain MRI 07/20/16 0000 Signed Impressions: Service Date/Time: Wednesday, July 20, 2016 09:15 - CONCLUSION: No acute intracranial abnormality. Moderately severe chronic white matter changes, nonspecific but most likely small vessel ischemia. Alfredo Sneed MD Head CT 07/19/16 0000 Signed Impressions: Service Date/Time: Tuesday, July 19, 2016 09:58 - CONCLUSION: No acute intracranial findings. João Otoole MD Foot X-Ray 07/16/16 0000 Signed Impressions: Service Date/Time: Saturday, July 16, 2016 17:34 - CONCLUSION: 1. Nonspecific soft tissue swelling. No acute bone destruction demonstrated. 2. Mild talonavicular and navicular/cuneiform degenerative changes. 3. Second through fifth hammertoe. 4. Moderate-sized heel spur. Alfredo Sneed MD Objective Remarks GENERAL: This is a well-nourished, well-developed patient, in no apparent distress. CARDIOVASCULAR: Regular rate and irregular rhythm without murmurs RESPIRATORY: Clear to auscultation. Breath sounds equal bilaterally. No wheezes GASTROINTESTINAL: Abdomen soft, non-tender, nondistended. Normal, active bowel sounds MUSCULOSKELETAL: both legs covered with clean dressing. necrotic toes on the left and some necrosis noted on the right. Per pt these have improved. NEURO: Alert & Oriented x4 to person, place, time, situation. Moves all ext x4 Procedures debridement of both leg wounds A/P Problem List: (1) Cellulitis of left lower extremity ICD Code: L03.116 Status: Acute (2) Delirium due to another medical condition ICD Code: F05 Status: Acute Assessment and Plan Respiratory Failure - resolved Nebs scheduled, PRN May need CPAP at night Pulmonology Consulted, need sleep study as OP Bilateral LE Cellulitis/ wounds with PVD Continue dressing changes per podiatry recommendation. previously evaluated by for left leg ischemia- reconsulted vascular surgery ( 08/05) for possible right foot ischemia. I did speak w Dr. White and he will perform an angiogram tomorrow. plastic surgery consulted- s/p debridement of bilateral leg wounds- previously d/w and recommended hyperbaric oxygen therapy;evaluated by ; patient must go home before staring hyperbaric oxygen. Case was discussed w Dr. Pedraza ( 08/06), from previous hospitalist, who recommended no further antibiotic therapy at this time. Altered mental status Poss Metabolic toxic encephalopathy-improved. Possible seizure. EEG with possible seizure - Hold all medications that could contribute. MRI brain with no acute abnormality. off Keppra and on Depakote per neurology. neurology follow-up appreciated. Psychosis. evaluated by psych. Diabetes - continue levemir. - Insulin sliding scale for now. Cardiomyopathy - Coreg - Isosorbide - Diovan - Monitor BP Trend Hypothyroidism - TSH 9.150 - Synthroid 150mcg daily, check freeT4, may also be related to recent acute illness. Recheck in 4 weeks. V-tach with EF 35%- with no recurrence; continue BB- consulted cardiology; patient declined further work-up- continue medical management. previously d/w ; cardiology will see prn- abnormal UA- UC with gram positive aung- - treated with Diflucan. Hyponatremia - resolved- hypokalemia; replaced. anemia of chronic disease; will monitor periodically. DVT GI prophylaxis - Heparin and Pepcid Discharge Planning patient needs to go home in order to get hyperbaric oxygen therapy- however the patient might need to be discharged to SNF at this time. pt going for angiogram tomorrow in AM dc planning discussed w CM, placement may be difficult. Nataliai Cruz MD Aug 07, 2016 15:12
[2016-08-07] MEDS ORDERED: diphenhydrAMINE HCL 50 MG/ML VIAL IV ONE (16:00)
[2016-08-07] MEDS: INSULIN DETEMIR 100 UNITS/ML VIAL SQ SCH (22:27)
[2016-08-07] MEDS: MELATONIN 5 MG TAB PO SCH (22:27)
[2016-08-07] MEDS: VALSARTAN 80 MG TAB PO SCH (22:28)
[2016-08-07] MEDS: predniSONE 50 MG TAB PO SCH (22:28)
[2016-08-08] VITALS (7 sets, daily range): BP systolic 99–156; BP diastolic 48–73; PULSE 69–82; RESP 18–22; TEMP 97.5–98.8; O2SAT 95–97
[2016-08-08] MEDS: predniSONE 50 MG TAB PO SCH (04:00)
[2016-08-08] MEDS: CHLORHEXIDINE GLUCONATE 2 % 1 PACK (2 CLOTHS) TOP SCH (04:00)
[2016-08-08] MEDS: ISOSORBIDE DINITRATE 5 MG TAB PO SCH ×3 (06:00→20:42)
[2016-08-08] MEDS: LEVOTHYROXINE SODIUM 150 MCG TAB PO SCH (06:00)
[2016-08-08] MEDS: HEPARIN SODIUM - SQ 10,000 UNITS/ML VIAL SQ SCH ×3 (06:00→20:43)
[2016-08-08] MEDS: INSULIN ASPART SUPPLEMENTAL SCALE SQ SCH ×4 (06:02→20:44)
[2016-08-08] MEDS ORDERED: diphenhydrAMINE HCL 50 MG/ML VIAL ONE (08:24)
[2016-08-08] MEDS ORDERED: MIDAZOLAM HCL 2 MG/2 ML VIAL ONE ×2 (08:24→11:01)
[2016-08-08] MEDS ORDERED: IOHEXOL 350 MG/ML 50 ML BTL (for EPS) OTHER ONE (08:50)
[2016-08-08] MEDS ORDERED: HYDROCORTISONE SOD SUCCINATE 100 MG VIAL ONE (08:50)
[2016-08-08] MEDS ORDERED: KETAMINE HCL 500 MG/5 ML VIAL ONE (08:59)
[2016-08-08] MEDS: SODIUM CHLORIDE 0.9% FLUSH 5 ML FLUSH IV FLUSH SCH ×2 (09:00→20:44)
[2016-08-08] MEDS: LIOTHYRONINE SODIUM 5 MCG TAB PO SCH (09:00)
[2016-08-08] MEDS: VALPROIC ACID 250 MG CAP PO SCH ×2 (09:00→20:42)
[2016-08-08] MEDS: ASPIRIN EC 325 MG TABEC PO SCH (09:00)
[2016-08-08] MEDS: CARVEDILOL 12.5 MG TAB PO SCH ×2 (09:00→20:42)
[2016-08-08] MEDS: FAMOTIDINE 20 MG/2 ML VIAL IV PUSH SCH ×2 (09:00→20:43)
[2016-08-08] MEDS: LACTOBACILLUS ACIDOPHILUS TAB PO SCH ×3 (09:00→17:39)
[2016-08-08] MEDS: DOCUSATE SODIUM 100 MG CAP PO SCH ×2 (09:00→20:42)
[2016-08-08] MEDS ORDERED: NITROGLYCERIN-DEXTROSE INJ 250 ML ONE (09:57)
[2016-08-08] MEDS ORDERED: IOHEXOL 300 MG/ML 50 ML BTL (for RAD DIAG) OTHER ONE (10:10)
[2016-08-08] MEDS ORDERED: fentaNYL CITRATE 250 MCG/5 ML AMP ONE (11:02)
[2016-08-08] MEDS ORDERED: MORPHINE SULFATE 4 MG/ML INJ ONE (11:03)
[2016-08-08] MEDS ORDERED: *morphine SULFATE 8 MG/ML PERIprocedure ONLY ONE (11:17)
--- NOTE | 2016-08-08 11:32 | HHI.PR ---
Immediate Post Op Note Procedure Date: Aug 08, 2016 Pre Op Diagnosis: (1) Cellulitis and abscess of lower extremity (2) Diabetic foot ulcer (3) Impaired mobility and activities of daily living (4) Cellulitis of left lower extremity Post Op Diagnosis: (1) Cellulitis of left lower extremity (2) DM type 2, uncontrolled, with neuropathy (3) Diabetic foot ulcer Surgeon: Adan White Instructor Modeling(s): Miranda Garcias Procedure: right SFA and pop balloon angioplasty. Findings: Patent right SFA and POP status post balloon angioplasty with single vessel AT runoff. Complications: none Specimen(s) removed: NA Estimated blood loss: Minimal Anesthesia: MAC Drains: None Fluids: 400 cc NS IVF Tourniquet time (min at mmHg) NA Patient to: PACU Patient Condition: Good Implant/Devices: Other Date/Time of Procedure: Other Adan White DO Aug 08, 2016 11:32
[2016-08-08] MEDS ORDERED: HEPARIN SODIUM - SQ 10,000 UNITS/ML VIAL OTHER ONE (12:00)
[2016-08-08] MEDS ORDERED: PROPOFOL 200 MG/20 ML AMP IV ONE (12:00)
[2016-08-08] MEDS: ACETAMINOPHEN/HYDROcodone 325 MG/5 MG TAB PO PRN ×3 (12:19→23:15)
[2016-08-08] MEDS ORDERED: DO NOT ADM ANY ANTICOAGULANT DRUGS XX PRN (12:30)
--- NOTE | 2016-08-08 15:00 | HHI.PR ---
Subjective Remarks Pt very tearful and emotional. States she has pain in her foot. Doesn't want to get accuchecks, and asks why it needs to be done so frequently. Spoke w daughter over the phone who was wondering if her mother had a UTI because of a discharge she noted when she cleaned her. Pt when asked if she had any dysuria, increase urinary frequency or if she had any chills, she denied any. She denies any itching as well. Objective Vitals Vital Signs Date Time Temp Pulse Resp B/P Pulse Ox O2 Delivery O2 Flow Rate FiO2 08/08/16 12:00 97.5 72 22 144/73 97 08/08/16 08:00 98.8 73 18 152/71 96 08/08/16 04:00 98.5 69 20 149/65 95 08/08/16 00:00 98.6 70 18 99/48 95 08/07/16 20:00 77 08/07/16 20:00 Room Air 08/07/16 20:00 99.3 76 20 147/67 94 08/07/16 16:00 98.3 74 18 151/67 97 I/O 08/07/16 08/07/16 08/07/16 08/08/16 08/08/16 08/08/16 07:00 15:00 23:00 07:00 15:00 23:00 Intake Total 0 ml 240 ml Output Total 240 ml Balance 0 ml 0 ml Intake Oral 0 ml 240 ml Output Urine Total 240 ml Stool Total 0 ml # Voids 1 1 0 # Bowel Movements 1 0 1 0 Imaging Last Impressions Upper Extremity Ultrasound 07/28/16 0000 Signed Impressions: Service Date/Time: Thursday, July 28, 2016 14:34 - CONCLUSION: No DVT is identified within the right upper extremity. Alfredo Eng MD Chest X-Ray 07/20/16 0000 Signed Impressions: Service Date/Time: Wednesday, July 20, 2016 12:38 - CONCLUSION: Mild left base consolidation developing. Alfredo Sneed MD Brain MRI 07/20/16 0000 Signed Impressions: Service Date/Time: Wednesday, July 20, 2016 09:15 - CONCLUSION: No acute intracranial abnormality. Moderately severe chronic white matter changes, nonspecific but most likely small vessel ischemia. Alfredo Sneed MD Head CT 07/19/16 0000 Signed Impressions: Service Date/Time: Tuesday, July 19, 2016 09:58 - CONCLUSION: No acute intracranial findings. João Otoole MD Foot X-Ray 07/16/16 0000 Signed Impressions: Service Date/Time: Saturday, July 16, 2016 17:34 - CONCLUSION: 1. Nonspecific soft tissue swelling. No acute bone destruction demonstrated. 2. Mild talonavicular and navicular/cuneiform degenerative changes. 3. Second through fifth hammertoe. 4. Moderate-sized heel spur. Alfredo Sneed MD Objective Remarks GENERAL: This is a well-nourished, well-developed patient, tearful CARDIOVASCULAR: RRR without murmurs RESPIRATORY: Clear to auscultation. Breath sounds equal bilaterally. No wheezes GASTROINTESTINAL: Abdomen soft, non-tender, nondistended. Normal, active bowel sounds MUSCULOSKELETAL: both legs covered with clean dressing. necrotic toes on the left and some necrosis noted on the right. NEURO: Alert & Oriented x4 to person, place, time, situation. Moves all ext x4 Procedures debridement of both leg wounds A/P Problem List: (1) Cellulitis of left lower extremity ICD Code: L03.116 Status: Acute (2) Delirium due to another medical condition ICD Code: F05 Status: Acute Assessment and Plan Respiratory Failure - resolved Nebs scheduled, PRN May need CPAP at night Pulmonology Consulted, need sleep study as OP Bilateral LE Cellulitis/ wounds with PVD Continue dressing changes per podiatry recommendation. previously evaluated by for left leg ischemia- reconsulted vascular surgery ( 08/05) for possible right foot ischemia. s/p angiogram by Dr. White 08/08/16 s/p SFA and pop balloon angioplasty plastic surgery consulted- s/p debridement of bilateral leg wounds- previously d/w and recommended hyperbaric oxygen therapy;evaluated by ; patient must go home before staring hyperbaric oxygen. Case was discussed w Dr. Pedraza ( 08/06), from previous hospitalist, who recommended no further antibiotic therapy at this time. Altered mental status Poss Metabolic toxic encephalopathy-improved. Possible seizure. EEG with possible seizure - Hold all medications that could contribute. MRI brain with no acute abnormality. off Keppra and on Depakote per neurology. neurology follow-up appreciated. Psychosis. evaluated by psych. Diabetes - continue levemir. - Insulin sliding scale for now. Cardiomyopathy - Coreg - Isosorbide - Diovan - Monitor BP Trend Hypothyroidism - TSH 9.150 - Synthroid 150mcg daily, check freeT4, may also be related to recent acute illness. Recheck in 4 weeks. V-tach with EF 35%- with no recurrence; continue BB- consulted cardiology; patient declined further work-up- continue medical management. previously d/w ; cardiology will see prn- abnormal UA- UC with gram positive aung- - treated with Diflucan. Hyponatremia - resolved- hypokalemia; replaced. anemia of chronic disease; will monitor periodically. DVT GI prophylaxis - Heparin and Pepcid Discharge Planning patient needs to go home in order to get hyperbaric oxygen therapy- however the patient might need to be discharged to SNF at this time. CM working on d/c planning. Nataliia Cruz MD Aug 08, 2016 15:00
[2016-08-08] MEDS: HYDROmorphone HCL PF 1 MG/ML VIAL IV PUSH PRN ×2 (15:09→20:43)
[2016-08-08] MEDS: VALSARTAN 80 MG TAB PO SCH (20:42)
[2016-08-08] MEDS: MELATONIN 5 MG TAB PO SCH (20:43)
[2016-08-08] MEDS: INSULIN DETEMIR 100 UNITS/ML VIAL SQ SCH (20:44)
[2016-08-09] VITALS (7 sets, daily range): BP systolic 107–133; BP diastolic 53–66; PULSE 67–80; RESP 12–20; TEMP 97.6–98.5; O2SAT 94–98
[2016-08-09] MEDS: SODIUM CHLORIDE 0.9% FLUSH 5 ML FLUSH IV FLUSH PRN ×2 (01:56→06:36)
[2016-08-09] MEDS: HYDROmorphone HCL PF 1 MG/ML VIAL IV PUSH PRN ×5 (01:56→22:18)
[2016-08-09] MEDS: CHLORHEXIDINE GLUCONATE 2 % 1 PACK (2 CLOTHS) TOP SCH (04:00)
[2016-08-09] MEDS: ISOSORBIDE DINITRATE 5 MG TAB PO SCH ×3 (05:40→22:16)
[2016-08-09] MEDS: HEPARIN SODIUM - SQ 10,000 UNITS/ML VIAL SQ SCH ×3 (05:40→22:17)
[2016-08-09] MEDS: ACETAMINOPHEN/HYDROcodone 325 MG/5 MG TAB PO PRN ×4 (05:41→17:45)
[2016-08-09] MEDS: LEVOTHYROXINE SODIUM 150 MCG TAB PO SCH (05:41)
[2016-08-09] MEDS: INSULIN ASPART SUPPLEMENTAL SCALE SQ SCH ×4 (05:41→21:00)
[2016-08-09] MEDS: VALPROIC ACID 250 MG CAP PO SCH ×2 (09:00→22:17)
[2016-08-09] MEDS: LACTOBACILLUS ACIDOPHILUS TAB PO SCH ×3 (09:00→17:44)
[2016-08-09] MEDS: LIOTHYRONINE SODIUM 5 MCG TAB PO SCH (09:00)
[2016-08-09] MEDS: ASPIRIN EC 325 MG TABEC PO SCH (09:00)
[2016-08-09] MEDS: FAMOTIDINE 20 MG/2 ML VIAL IV PUSH SCH ×2 (09:01→22:18)
[2016-08-09] MEDS: SODIUM CHLORIDE 0.9% FLUSH 5 ML FLUSH IV FLUSH SCH ×2 (09:01→22:24)
[2016-08-09] MEDS: CARVEDILOL 12.5 MG TAB PO SCH ×2 (09:02→22:17)
--- NOTE | 2016-08-09 12:00 | HHI.PR ---
Objective Vitals Vital Signs Date Time Temp Pulse Resp B/P Pulse Ox O2 Delivery O2 Flow Rate FiO2 08/09/16 09:00 Room Air 08/09/16 08:00 98.2 70 20 107/57 96 08/09/16 04:10 97.6 76 20 132/61 96 08/09/16 00:00 98.5 80 20 130/60 94 08/08/16 20:18 81 08/08/16 20:00 97.6 82 20 124/56 95 08/08/16 20:00 Room Air 08/08/16 16:00 98.1 79 20 156/68 96 08/08/16 12:00 97.5 72 22 144/73 97 I/O 08/08/16 08/08/16 08/08/16 08/09/16 08/09/16 08/09/16 07:00 15:00 23:00 07:00 15:00 23:00 Intake Total 590 ml 240 ml 240 ml Output Total 50 ml 100 ml 325 ml Balance 540 ml 140 ml -85 ml Intake Oral 240 ml 240 ml 240 ml IV Total 50 ml Other 300 ml Output Urine Total 0 ml 100 ml 325 ml Estimated Blood Loss 50 ml # Voids 0 1 # Bowel Movements 0 1 0 Imaging Last Impressions Upper Extremity Ultrasound 07/28/16 0000 Signed Impressions: Service Date/Time: Thursday, July 28, 2016 14:34 - CONCLUSION: No DVT is identified within the right upper extremity. Alfredo Eng MD Chest X-Ray 07/20/16 0000 Signed Impressions: Service Date/Time: Wednesday, July 20, 2016 12:38 - CONCLUSION: Mild left base consolidation developing. Alfredo Sneed MD Brain MRI 07/20/16 0000 Signed Impressions: Service Date/Time: Wednesday, July 20, 2016 09:15 - CONCLUSION: No acute intracranial abnormality. Moderately severe chronic white matter changes, nonspecific but most likely small vessel ischemia. Alfredo Sneed MD Head CT 07/19/16 0000 Signed Impressions: Service Date/Time: Tuesday, July 19, 2016 09:58 - CONCLUSION: No acute intracranial findings. João Otoole MD Foot X-Ray 07/16/16 0000 Signed Impressions: Service Date/Time: Saturday, July 16, 2016 17:34 - CONCLUSION: 1. Nonspecific soft tissue swelling. No acute bone destruction demonstrated. 2. Mild talonavicular and navicular/cuneiform degenerative changes. 3. Second through fifth hammertoe. 4. Moderate-sized heel spur. Alfredo Sneed MD Objective Remarks GENERAL: This is a well-nourished, well-developed patient, tearful CARDIOVASCULAR: RRR without murmurs RESPIRATORY: Clear to auscultation. Breath sounds equal bilaterally. No wheezes GASTROINTESTINAL: Abdomen soft, non-tender, nondistended. Normal, active bowel sounds MUSCULOSKELETAL: both legs covered with clean dressing. necrotic toes on the left and some necrosis noted on the right. NEURO: Alert & Oriented x4 to person, place, time, situation. Moves all ext x4 Procedures debridement of both leg wounds A/P Problem List: (1) Cellulitis of left lower extremity ICD Code: L03.116 Status: Acute (2) Delirium due to another medical condition ICD Code: F05 Status: Acute Assessment and Plan Respiratory Failure - resolved Nebs scheduled, PRN May need CPAP at night Pulmonology Consulted, need sleep study as OP Bilateral LE Cellulitis/ wounds with PVD Continue dressing changes per podiatry recommendation. previously evaluated by for left leg ischemia- reconsulted vascular surgery ( 08/05) for possible right foot ischemia. s/p angiogram by Dr. White 08/08/16 s/p SFA and pop balloon angioplasty plastic surgery consulted- s/p debridement of bilateral leg wounds- previously d/w and recommended hyperbaric oxygen therapy;evaluated by ; patient must go home before staring hyperbaric oxygen. Case was discussed w Dr. Pedraza ( 08/06), from previous hospitalist, who recommended no further antibiotic therapy at this time. Altered mental status Poss Metabolic toxic encephalopathy-improved. Possible seizure. EEG with possible seizure - Hold all medications that could contribute. MRI brain with no acute abnormality. off Keppra and on Depakote per neurology. neurology follow-up appreciated. Psychosis. evaluated by psych. Diabetes - continue levemir. - Insulin sliding scale for now. Cardiomyopathy - Coreg - Isosorbide - Diovan - Monitor BP Trend Hypothyroidism - TSH 9.150 - Synthroid 150mcg daily, check freeT4, may also be related to recent acute illness. Recheck in 4 weeks. V-tach with EF 35%- with no recurrence; continue BB- consulted cardiology; patient declined further work-up- continue medical management. previously d/w ; cardiology will see prn- abnormal UA- UC with gram positive aung- - treated with Diflucan. Hyponatremia - resolved- hypokalemia; replaced. anemia of chronic disease; will monitor periodically. DVT GI prophylaxis - Heparin and Pepcid Discharge Planning patient needs to go home in order to get hyperbaric oxygen therapy- however the patient might need to be discharged to SNF at this time. CM working on d/c planning. Nataliia Cruz MD Aug 09, 2016 12:00 - Heparin and Pepcid Discharge Planning patient needs to go home in order to get hyperbaric oxygen therapy- however the patient might need to be discharged to SNF at this time. CM working on d/c planning. Nataliia Cruz MD Aug 09, 2016 12:00
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
--- NOTE | 2016-08-09 13:48 | HHI.PR ---
Subjective Remarks Pt states that she wants to get better and wants to proceed w HBO and she believes that her feet will get better from it. She rather go home w home health instead of going to a SNF/Rehab because she cannot get the HBO at the rehab if she goes there. Her daughter is looking into getting FMLA from her job so she can care for her mother at home so her mom can go to her HBO treatments once she is discharged. Son at bedside and requests that I fill out FMLA paperwork for his sister. Pt states she still has pain, is emotional but refuses to have any anxiolytic however son insist that she have something available. She denies any CP/SOB/N/V She is tearful at times Objective Vitals Vital Signs Date Time Temp Pulse Resp B/P Pulse Ox O2 Delivery O2 Flow Rate FiO2 08/09/16 12:26 20 08/09/16 12:00 98.0 67 12 127/60 96 08/09/16 10:03 20 08/09/16 09:00 Room Air 08/09/16 08:00 98.2 70 20 107/57 96 08/09/16 04:10 97.6 76 20 132/61 96 08/09/16 00:00 98.5 80 20 130/60 94 08/08/16 20:18 81 08/08/16 20:00 97.6 82 20 124/56 95 08/08/16 20:00 Room Air 08/08/16 16:00 98.1 79 20 156/68 96 I/O 08/08/16 08/08/16 08/08/16 08/09/16 08/09/16 08/09/16 07:00 15:00 23:00 07:00 15:00 23:00 Intake Total 590 ml 240 ml 240 ml Output Total 50 ml 100 ml 325 ml Balance 540 ml 140 ml -85 ml Intake Oral 240 ml 240 ml 240 ml IV Total 50 ml Other 300 ml Output Urine Total 0 ml 100 ml 325 ml Estimated Blood Loss 50 ml # Voids 0 1 # Bowel Movements 0 1 0 Imaging Last Impressions Upper Extremity Ultrasound 07/28/16 0000 Signed Impressions: Service Date/Time: Thursday, July 28, 2016 14:34 - CONCLUSION: No DVT is identified within the right upper extremity. Alfredo Eng MD Chest X-Ray 07/20/16 0000 Signed Impressions: Service Date/Time: Wednesday, July 20, 2016 12:38 - CONCLUSION: Mild left base consolidation developing. Alfredo Sneed MD Brain MRI 07/20/16 0000 Signed Impressions: Service Date/Time: Wednesday, July 20, 2016 09:15 - CONCLUSION: No acute intracranial abnormality. Moderately severe chronic white matter changes, nonspecific but most likely small vessel ischemia. Alfredo Sneed MD Head CT 07/19/16 0000 Signed Impressions: Service Date/Time: Tuesday, July 19, 2016 09:58 - CONCLUSION: No acute intracranial findings. João Otoole MD Foot X-Ray 07/16/16 0000 Signed Impressions: Service Date/Time: Saturday, July 16, 2016 17:34 - CONCLUSION: 1. Nonspecific soft tissue swelling. No acute bone destruction demonstrated. 2. Mild talonavicular and navicular/cuneiform degenerative changes. 3. Second through fifth hammertoe. 4. Moderate-sized heel spur. Alrfedo Sneed MD Objective Remarks GENERAL: This is a well-nourished, well-developed patient, tearful CARDIOVASCULAR: RRR without murmurs RESPIRATORY: Clear to auscultation. Breath sounds equal bilaterally. No wheezes GASTROINTESTINAL: Abdomen soft, non-tender, nondistended. Normal, active bowel sounds MUSCULOSKELETAL: both legs covered with clean dressing. dry gangrene on toes on the left and some noted on the right. NEURO: alert and oriented. very emotional. Procedures debridement of both leg wounds A/P Problem List: (1) Cellulitis of left lower extremity ICD Code: L03.116 Status: Acute (2) Delirium due to another medical condition ICD Code: F05 Status: Acute Assessment and Plan Respiratory Failure - resolved Nebs scheduled, PRN May need CPAP at night Pulmonology Consulted, need sleep study as OP Bilateral LE Cellulitis/ wounds with PVD Continue dressing changes per podiatry recommendation. previously evaluated by for left leg ischemia- reconsulted vascular surgery ( 08/05) for possible right foot ischemia. s/p SFA and pop balloon angioplasty by Dr. White 08/08/16 plastic surgery consulted- s/p debridement of bilateral leg wounds- from plastic sx had evaluated the patient and recommended HBO; pt was later was evaluated by ; per his note, patient must go home before staring hyperbaric oxygen. Family is trying to make arrangements to go home w home health so she can get her treatments. FMLA paperwork filled out for daughter as she wants to care for her mother. I did discuss the case w podiatry and he has touched base w Dr. Aquino, pt has very high expectations of HBO and has many questions regarding this treatment. Per Dr. Wynne, Dr. Aquino will round on patient tomorrow and can provide more information to family regarding this. I think a conversation w vascular sx, podiatry and HBO physician would be very helpful for family and patient regarding decision making. Per ID no further antibiotic therapy at this time. Altered mental status Poss Metabolic toxic encephalopathy-improved. Possible seizure. EEG with possible seizure - Hold all medications that could contribute. MRI brain with no acute abnormality. off Keppra and on Depakote per neurology. neurology follow-up appreciated. Psychosis. resolved. evaluated by psych. Diabetes - continue levemir. - Insulin sliding scale for now. Cardiomyopathy - Coreg - Isosorbide - Diovan - Monitor BP Trend Hypothyroidism - TSH 9.150 - Synthroid 150mcg daily, check freeT4, may also be related to recent acute illness. Recheck in 4 weeks. V-tach with EF 35%- with no recurrence; continue BB- consulted cardiology; patient declined further work-up- continue medical management. previously d/w ; cardiology will see prn- abnormal UA- UC with gram positive aung- - treated with Diflucan. Hyponatremia - resolved- hypokalemia; replaced. anemia of chronic disease; will monitor periodically. DVT GI prophylaxis - Heparin and Pepcid Discharge Planning Patient and family would like pt to be discharged home w home health because they really hope HBO will work. They have many questions regarding the process and prognosis. Dr. Aquino will be rounding on pt tomorrow. They also want to speak w vascular sx regarding the procedure. FMLA paperwork for daughter has been filled out as she plans on staying w her mother to help her get to the HBO center and help at home. Appreciate assistance from all consultants. Nataliia Cruz MD Aug 09, 2016 13:48
[2016-08-09] MEDS ORDERED: LORazepam 0.5 MG TAB PO PRN (14:00)
--- NOTE | 2016-08-09 15:43 | PD.VS.PN ---
Subjective POD #: 1 Procedure(s): Right sfa/pop angioplasty. Subjective/Hospital Course Pt very pleasant today. Son at bedside. Objective Cardiac: right foot with DP phasic signals. left groin without swelling Assessment and Plan Plan Pt with PAD/swelling and chronic wounds bilateral lower extremity. Suspect multifactorial. POD1 status post right SFA/pop balloon angioplasty with single vessel runoff AT. Signals noted. Right heels on bed....Discussed with charge nurse heal protection a placed an order for this. Will continue to follow. For wound care, I recommend consulting art therapist and plastic surgery. For toe wounds Podiatry input appreciated. Son at bedside, discussed risk of limb loss without improvement in wounds. Adan White DO, FACS C Consultant of Vascular Surgery /Adan Metz DO Aug 09, 2016 15:43
[2016-08-09] MEDS: MELATONIN 5 MG TAB PO SCH (22:16)
[2016-08-09] MEDS: VALSARTAN 80 MG TAB PO SCH (22:17)
[2016-08-09] MEDS: INSULIN DETEMIR 100 UNITS/ML VIAL SQ SCH (22:23)
[2016-08-10] VITALS (7 sets, daily range): BP systolic 125–159; BP diastolic 57–69; PULSE 72–89; RESP 18–22; TEMP 97.3–98.9; O2SAT 93–99
[2016-08-10] MEDS: CHLORHEXIDINE GLUCONATE 2 % 1 PACK (2 CLOTHS) TOP SCH (04:00)
[2016-08-10] MEDS: HEPARIN SODIUM - SQ 10,000 UNITS/ML VIAL SQ SCH ×3 (05:13→21:17)
[2016-08-10] MEDS: ISOSORBIDE DINITRATE 5 MG TAB PO SCH ×3 (05:14→21:16)
[2016-08-10] MEDS: LEVOTHYROXINE SODIUM 150 MCG TAB PO SCH (05:14)
[2016-08-10] MEDS: HYDROmorphone HCL PF 1 MG/ML VIAL IV PUSH PRN ×4 (05:14→17:03)
[2016-08-10] MEDS: INSULIN ASPART SUPPLEMENTAL SCALE SQ SCH ×4 (05:17→21:00)
[2016-08-10] MEDS: LIOTHYRONINE SODIUM 5 MCG TAB PO SCH (09:08)
[2016-08-10] MEDS: LACTOBACILLUS ACIDOPHILUS TAB PO SCH ×3 (09:08→17:03)
[2016-08-10] MEDS: CARVEDILOL 12.5 MG TAB PO SCH ×2 (09:08→21:15)
[2016-08-10] MEDS: VALPROIC ACID 250 MG CAP PO SCH ×2 (09:08→21:16)
[2016-08-10] MEDS: FAMOTIDINE 20 MG/2 ML VIAL IV PUSH SCH ×2 (09:08→21:16)
[2016-08-10] MEDS: SODIUM CHLORIDE 0.9% FLUSH 5 ML FLUSH IV FLUSH SCH ×2 (09:09→21:00)
[2016-08-10] MEDS: ASPIRIN EC 325 MG TABEC PO SCH (09:09)
--- NOTE | 2016-08-10 11:05 | MP ---
cc: KENTRELL SOLORIO DATE OF SURGERY: 08/08/[address] Kentrell Solorio, DO PREOPERATIVE DIAGNOSIS Critical limb ischemia, right lower extremity. POSTOPERATIVE DIAGNOSIS Critical limb ischemia, right lower extremity. PROCEDURE 1. Selective right lower extremity arteriogram. 2. Balloon angioplasty with a 4 mm x 2200 mm and then a 5 x 200 mm Medtronic angioplasty balloon of the right superficial femoral and proximal popliteal artery. ETCH OPERATOR SEMICONDUCTOR WAFERS Miranda Garcias. IV FLUIDS 300 ccs. ESTIMATED BLOOD LOSS Minimal. URINE OUTPUT Not calculated. COMPLICATIONS None. DISPOSITION To PACU. PROCEDURE The patient was prepped and draped in the groins bilaterally. I got access to the left common femoral artery using Duplex ultrasound and palpation, got access just above the takeoff of the profunda and left SFA. I placed a 21-gauge needle and exchanged over a Mandrel wire for a 4-Bur[place]ian micropuncture catheter and exchanged over braided wire for a 5-[place]ian sheath. I advanced an Omni flush catheter and a stiff angle Glidewire into the contralateral external iliac artery. I then shot a selective right lower extremity arteriogram. My findings were that the left common femoral profunda and superficial femoral artery proximally was open. My sheath was above the takeoff of the left profunda and superficial femoral artery. When I shot the right lower extremity arteriogram the right external iliac artery and common femoral artery were widely patent. The right profunda femoral artery was widely patent. The right superficial femoral artery had multifocal disease along its length, some areas appeared to be at least moderate stenosis. This extended down into the proximal popliteal artery. The patient had single-vessel runoff through an anterior tibial artery. Just above the ankle there was eccentric lesion of the anterior tibial artery but it did not appear to be flow-limiting. The right dorsalis pedis artery appeared to be patent, although the pedal vessels were not patent. The patient was given 7000 units of heparin to an ACT of more than 200, before the balloon angioplasty. It should be noted I exchanged for a 6-Bur[place]ian 45 cm destination sheath that I extended into the right common femoral artery. Afterwards, I performed balloon angioplasty with a 4 x 200 and then a 5 x 200 balloon consecuatively. It should be noted that my inflation times were approximately 120 seconds. After the procedure was finished the patient had good flow through the right superficial femoral artery with no residual recoil or flow-limiting dissection. The patient still had single-vessel runoff through the anterior tibial artery and blood flow across the level of the ankle. Based on this, I removed my sheath out over a wire in the left groin and exchanged for a 6-[place] Angio-Seal. It should be noted that we applied gentle pressure on the left groin after the procedure. The patient tolerated the procedure well and was taken to PACU at the end of the case. DO ADRIANNA Keller/MARY ANN /10:30 AM /10:48 AM
[2016-08-10] MEDS: ACETAMINOPHEN/HYDROcodone 325 MG/5 MG TAB PO PRN ×3 (11:11→21:16)
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
--- NOTE | 2016-08-10 14:41 | HHI.PR ---
Subjective Remarks Pt initially turns her back at me, then when I speak w son she becomes tearful. when I ask her if she has any dysuria, increase urinary frequency, fevers or chills, she denies, then later starts complaining that she is cold. RN concerned that urine looks very cloudy. son is concerned because she seems more confused. pt told son this morning that she was in the parking lot and she didn' t feel safe. She gets upset that he tells me this then she tells me that it " was scary". Son also tells me that he spoke w Dr. Pepe and Dr. Aquino today. Dr. Pepe seemed more optimistic then Dr. Aquino. son is not sure what to do. He would like his mother to get better but if an amputation would make her pain go away, he wouldn't be opposed to it. However, he will support her decision. When asked if a palliative care consult would help the family and patient to figure out the goals of care, son is agreeable. Patient doesn't respond. She just mentions that she is cold. Objective Vitals Vital Signs Date Time Temp Pulse Resp B/P Pulse Ox O2 Delivery O2 Flow Rate FiO2 08/10/16 09:38 20 08/10/16 08:00 98.1 78 22 153/69 99 08/10/16 04:00 97.8 89 20 138/62 97 08/10/16 00:00 97.9 88 22 144/63 96 08/09/16 20:21 76 08/09/16 20:00 Room Air 08/09/16 20:00 98.0 79 18 133/66 98 08/09/16 18:51 18 08/09/16 16:00 98.2 73 20 111/53 97 I/O 08/09/16 08/09/16 08/09/16 08/10/16 08/10/16 08/10/16 07:00 15:00 23:00 07:00 15:00 23:00 Intake Total 240 ml 240 ml 120 ml 50 ml Output Total 325 ml Balance -85 ml 240 ml 120 ml 50 ml Intake Oral 240 ml 240 ml 120 ml 50 ml Output Urine Total 325 ml # Voids 1 1 2 # Bowel Movements 0 0 0 2 Imaging Last Impressions Upper Extremity Ultrasound 07/28/16 0000 Signed Impressions: Service Date/Time: Thursday, July 28, 2016 14:34 - CONCLUSION: No DVT is identified within the right upper extremity. Alfredo Eng MD Chest X-Ray 07/20/16 0000 Signed Impressions: Service Date/Time: Wednesday, July 20, 2016 12:38 - CONCLUSION: Mild left base consolidation developing. Alfredo Sneed MD Brain MRI 07/20/16 0000 Signed Impressions: Service Date/Time: Wednesday, July 20, 2016 09:15 - CONCLUSION: No acute intracranial abnormality. Moderately severe chronic white matter changes, nonspecific but most likely small vessel ischemia. Alfredo Sneed MD Head CT 07/19/16 0000 Signed Impressions: Service Date/Time: Tuesday, July 19, 2016 09:58 - CONCLUSION: No acute intracranial findings. João Otoole MD Foot X-Ray 07/16/16 0000 Signed Impressions: Service Date/Time: Saturday, July 16, 2016 17:34 - CONCLUSION: 1. Nonspecific soft tissue swelling. No acute bone destruction demonstrated. 2. Mild talonavicular and navicular/cuneiform degenerative changes. 3. Second through fifth hammertoe. 4. Moderate-sized heel spur. Alfredo Sneed MD Objective Remarks GENERAL: This is a well-nourished, well-developed patient, tearful CARDIOVASCULAR: RRR without murmurs RESPIRATORY: Clear to auscultation. Breath sounds equal bilaterally. No wheezes GASTROINTESTINAL: Abdomen soft, non-tender, nondistended. Normal, active bowel sounds MUSCULOSKELETAL: both legs covered with clean dressing. dry gangrene on toes on the left and some noted on the right. NEURO: alert and oriented. very emotional. Procedures debridement of both leg wounds A/P Problem List: (1) Cellulitis of left lower extremity ICD Code: L03.116 Status: Acute (2) Delirium due to another medical condition ICD Code: F05 Status: Acute Assessment and Plan Respiratory Failure - resolved Nebs scheduled, PRN May need CPAP at night Pulmonology Consulted, need sleep study as OP Bilateral LE Cellulitis/ wounds with PVD Continue dressing changes per podiatry recommendation. previously evaluated by for left leg ischemia- reconsulted vascular surgery ( 08/05) for possible right foot ischemia. s/p SFA and pop balloon angioplasty by Dr. White 08/08/16 Chronic leg wounds/toe gangrene: plastic surgery consulted- s/p debridement of bilateral leg wounds- from plastic sx had evaluated the patient and had recommended HBO; I did discuss the case w podiatry and he has touched base w Dr. Aquino. pt has very high expectations of HBO and has many questions regarding this treatment. Dr. Aquino did come today to speak w son and patient. Son at this time, is unsure how to proceed because both podiatry and Dr. Aquino are concerned that HBO may not heal the wound and pt may end up w an amputation since pt has tendon exposure. Son wants his mother to get better and understands the importance of rehab. He is considering her going to rehab for a few weeks and then proceeding w HBO if there is a chance for his mother to get better w this treatment, however, he is also aware that amputation may be the best option his mother has, however, he tells me that he will support her decisions. He does feel that his mother has been confused, this morning she didn't eat breakfast or lunch. I explained to patient that she must eat to heal. She tells me that she doesn't want to eat hospital food. I asked her what she wanted and perhaps her son or daughter could bring it, she didn't answer. At this time, if pt continues to refuse to eat, we will need to start a calorie count. I encouraged her to drink her glucernas. I will place a palliative care consult for both assistance w pain management and goals of care. son is traveling to [place] today but would be available via phone to participate in the the meeting. Son tells me that he would like to know what vascular sx thinks. Per ID no further antibiotic therapy at this time. Altered mental status Poss Metabolic toxic encephalopathy- pt seems to be getting more confused. I will check a U/A. Pt denies symptoms but because she is becoming confused, an infection could be causing this. Possible seizure. EEG with possible seizure, off Keppra and on Depakote per neurology. - Hold all medications that could contribute. MRI brain with no acute abnormality. Psychosis. resolved, however she had one episode today where she thought she was in a parking lot and "it was scary". Monitor closely. Pt has been evaluated by psych in the past, if worsening, will reconsult psych. Diabetes - continue levemir. - Insulin sliding scale for now. Cardiomyopathy - Coreg - Isosorbide - Diovan - Monitor BP Trend Hypothyroidism - TSH 9.150 - Synthroid 150mcg daily, check freeT4, may also be related to recent acute illness. Recheck in 4 weeks. V-tach with EF 35%- with no recurrence; continue BB- consulted cardiology; patient declined further work-up- continue medical management. previously d/w ; cardiology will see prn- abnormal UA- UC with gram positive aung- - treated with Diflucan. Hyponatremia - resolved- hypokalemia; replaced. anemia of chronic disease; will monitor periodically. DVT GI prophylaxis - Heparin and Pepcid Discharge Planning Family is still deciding on d/c plans. FMLA paperwork for daughter has been filled out as she plans on staying w her mother to help her get to the HBO center and help at home if she goes home w home health. a palliative care consult has been placed to assist w pain management and goals of care. appreciate assistance from all consultants Nataliia Cruz MD Aug 10, 2016 14:40
[2016-08-10 15:16] LABS: BACTERIA, URINE OCC /hpf; BLOOD, URINE TRACE (NEG); COMMENT (UR) CULTURE INDICATED; CULTURE IF INDICATED CULTURE INDICATED; GLUCOSE,URINE NEG (NEG); KETONE, URINE 10 mg/dL (NEG); MUCUS URINE MOD /lpf (OCC); NITRITE,URINE NEG (NEG); PH, URINE 5.5 (5.0-8.5); SQUAMOUS EPITHELIAL CELL URINE 22 /hpf (0-5); URINE COLOR YELLOW (YELLW/STRAW)
[2016-08-10] MEDS: MELATONIN 5 MG TAB PO SCH (21:15)
[2016-08-10] MEDS: VALSARTAN 80 MG TAB PO SCH (21:16)
[2016-08-10] MEDS: INSULIN DETEMIR 100 UNITS/ML VIAL SQ SCH (21:19)
[2016-08-11 00:02] VITALS: BP 112/56; PULSE 75; RESP 22; TEMP 98.4; O2SAT 95
[2016-08-11] MEDS: ACETAMINOPHEN/HYDROcodone 325 MG/5 MG TAB PO PRN ×3 (01:43→19:06)
[2016-08-11] MEDS: CHLORHEXIDINE GLUCONATE 2 % 1 PACK (2 CLOTHS) TOP SCH ×2 (04:00→22:29)
[2016-08-11 04:15] VITALS: BP 151/65; PULSE 75; RESP 20; TEMP 98.1; O2SAT 95
[2016-08-11] MEDS: ISOSORBIDE DINITRATE 5 MG TAB PO SCH ×3 (05:45→22:21)
[2016-08-11] MEDS: LEVOTHYROXINE SODIUM 150 MCG TAB PO SCH (05:45)
[2016-08-11] MEDS: HEPARIN SODIUM - SQ 10,000 UNITS/ML VIAL SQ SCH ×3 (05:46→22:23)
[2016-08-11] MEDS: INSULIN ASPART SUPPLEMENTAL SCALE SQ SCH ×4 (05:46→21:00)
[2016-08-11 07:13] LABS: BICARBONATE 30.2 MEQ/L (21.0-32.0); POTASSIUM 3.3 MEQ/L (3.5-5.1)
[2016-08-11 07:14] LABS: AUTOMATED NEUTROPHIL # 8.3 TH/MM3 (1.8-7.7); BASOPHIL % 0.2 % (0.0-2.0); EOSINOPHIL # 0.2 TH/MM3 (0-0.4); EOSINOPHIL % 1.8 % (0.0-4.0); HEMATOCRIT 26.1 % (35.0-46.0); LYMPH % 13.3 % (9.0-44.0); LYMPHOCYTE # 1.4 TH/MM3 (1.0-4.8); MEAN CELL VOLUME 76.1 FL (80.0-100.0); MEAN CORPUSCULAR HEMOGLOBIN 23.5 PG (27.0-34.0); MEAN CORPUSCULAR HGB CONC 30.8 % (32.0-36.0); MONO % 5.9 % (0.0-8.0); NEUT % 78.8 % (16.0-70.0); PLATELET COUNT 243 TH/MM3 (150-450); RED BLOOD COUNT 3.44 MIL/MM3 (4.00-5.30); RED CELL DISTRIBUTION WIDTH 18.6 % (11.6-17.2); WHITE BLOOD COUNT 10.5 TH/MM3 (4.0-11.0)
[2016-08-11 07:21] LABS: HEMO FLAGS AUTO DIFF
[2016-08-11 07:54] VITALS: PULSE 16
[2016-08-11 08:02] VITALS: BP 132/64; PULSE 76; RESP 20; TEMP 98.2; O2SAT 97
[2016-08-11 08:07] LABS: BANDS 17 % (0-6); NEUTROPHIL # MANUAL DIFF 9.1 TH/MM3 (1.8-7.7); PLATELET ESTIMATE SMEAR NORMAL (NORMAL); PLATELET MORPHOLOGY NORMAL (NORMAL); POLYS (SEG NEUTROPHILS) 70 % (16-70); SCAN/DIFF FINAL DIFF MANUAL; WBC DIFF SAMPLE 100
[2016-08-11] MEDS: LACTOBACILLUS ACIDOPHILUS TAB PO SCH ×3 (09:17→19:02)
[2016-08-11] MEDS: ASPIRIN EC 325 MG TABEC PO SCH (09:17)
[2016-08-11] MEDS: LIOTHYRONINE SODIUM 5 MCG TAB PO SCH (09:17)
[2016-08-11] MEDS: CARVEDILOL 12.5 MG TAB PO SCH ×2 (09:18→22:22)
[2016-08-11] MEDS: FAMOTIDINE 20 MG/2 ML VIAL IV PUSH SCH ×2 (09:19→22:23)
[2016-08-11] MEDS: SODIUM CHLORIDE 0.9% FLUSH 5 ML FLUSH IV FLUSH SCH ×2 (09:22→22:24)
[2016-08-11] MEDS: VALPROIC ACID 250 MG CAP PO SCH ×2 (10:07→22:23)
[2016-08-11 12:04] VITALS: BP 117/58; PULSE 73; RESP 20; TEMP 99.4; O2SAT 96
[2016-08-11] MEDS: POTASSIUM CHLORIDE 10 MEQ CONTROLLED RELEASE TAB PO SCH ×2 (13:51→22:22)
--- NOTE | 2016-08-11 14:33 | HHI.PR ---
Subjective Remarks Follow up for lower ext gangrene, PVD, wound. Patient reports significant pain from both of her legs. No fever, chills. Not eating great. Daughter at bedside. Daughter wants to take patient home and possibly give her a chance by arranging hyperbaric treatments. However, patient cannot transfer herself from bed to chair. Objective Vitals Vital Signs Date Time Temp Pulse Resp B/P Pulse Ox O2 Delivery O2 Flow Rate FiO2 08/11/16 12:04 99.4 73 20 117/58 96 08/11/16 08:10 Room Air 08/11/16 08:02 98.2 76 20 132/64 97 08/11/16 07:54 16 08/11/16 04:15 98.1 75 20 151/65 95 08/11/16 00:02 98.4 75 22 112/56 95 08/10/16 20:18 76 08/10/16 20:12 97.3 79 20 125/57 95 08/10/16 20:00 Room Air 08/10/16 17:40 20 08/10/16 16:00 98.9 74 18 125/58 97 08/10/16 15:51 18 I/O 08/10/16 08/10/16 08/10/16 08/11/16 08/11/16 08/11/16 07:00 15:00 23:00 07:00 15:00 23:00 Intake Total 50 ml 480 ml 100 ml Output Total 300 ml Balance 50 ml 180 ml 100 ml Intake Oral 50 ml 480 ml 100 ml Output Urine Total 300 ml # Voids 2 1 2 # Bowel Movements 2 5 1 Result Diagram: 08/11/16 0559 08/11/16 0559 Imaging Last Impressions Upper Extremity Ultrasound 07/28/16 0000 Signed Impressions: Service Date/Time: Thursday, July 28, 2016 14:34 - CONCLUSION: No DVT is identified within the right upper extremity. Alfredo Eng MD Chest X-Ray 07/20/16 0000 Signed Impressions: Service Date/Time: Wednesday, July 20, 2016 12:38 - CONCLUSION: Mild left base consolidation developing. Alfredo Sneed MD Brain MRI 07/20/16 0000 Signed Impressions: Service Date/Time: Wednesday, July 20, 2016 09:15 - CONCLUSION: No acute intracranial abnormality. Moderately severe chronic white matter changes, nonspecific but most likely small vessel ischemia. Alfredo Sneed MD Head CT 07/19/16 0000 Signed Impressions: Service Date/Time: Tuesday, July 19, 2016 09:58 - CONCLUSION: No acute intracranial findings. João Otoole MD Foot X-Ray 07/16/16 0000 Signed Impressions: Service Date/Time: Saturday, July 16, 2016 17:34 - CONCLUSION: 1. Nonspecific soft tissue swelling. No acute bone destruction demonstrated. 2. Mild talonavicular and navicular/cuneiform degenerative changes. 3. Second through fifth hammertoe. 4. Moderate-sized heel spur. Alfredo Sneed MD Objective Remarks GENERAL: Alert, Oriented x 3, NAD. SKIN: Warm and dry. HEAD: Normocephalic. EYES: No scleral icterus. No injection or drainage. NECK: Supple, trachea midline. No JVD or lymphadenopathy. CARDIOVASCULAR: Regular rate and rhythm without murmurs, gallops, or rubs. RESPIRATORY: Breath sounds equal bilaterally. No accessory muscle use. GASTROINTESTINAL: Abdomen soft, non-tender, nondistended. MUSCULOSKELETAL: Left foot has multiple toes with gangrenous changes. Right foot with digit 3 gangrenous changes. Both lower ext above ankle wrapped in dressing. BACK: Nontender without obvious deformity. No CVA tenderness. Procedures 08/08/2016 PROCEDURE 1. Selective right lower extremity arteriogram. 2. Balloon angioplasty with a 4 mm x 2200 mm and then a 5 x 200 mm [employer] angioplasty balloon of the right superficial femoral and proximal popliteal artery. 07/31/2016 Excision and debridement of both legs, extensive necrotic wounds approximately 30 x 25 cm area on each side, total 1000 to 1100 cm square, down to the subcutaneous tissue and tendon on the left side. A/P Problem List: (1) Cellulitis of left lower extremity ICD Code: L03.116 Status: Acute (2) Delirium due to another medical condition ICD Code: F05 Status: Acute Assessment and Plan Ms. Lemos is a 61 year old female, with multiple admissions, with history of cellulitis of legs, severe PVD, diabetes and cardiomyopathy EF of 30% was at the rehabilitation facility when she became more altered, lethargic and hypoxic. Patient has severe PVD and gangrenous changes in both lower ext. Vascular surgery, Podiatry and plastic surgery have evaluated patient. Patient underwent two procedures - one by Vascular surgery and one by plastic surgery. Plastic surgery recommended hyperbaric treatments for the skin wound. However, hyperbaric treatments cannot be done in-patient. - Chronic lower ext wound - Peripheral vascular disease - Discussed with Vascular surgery today. No further input from vascular surgery at this point. - Waiting to hear from plastic surgery regarding Dr. Pepe's plan for wound care/hyperbaric treatments. - Continue [place], Dilaudid PRN for pain. - Anxiety - d/c Ativan and start Clonazepam 0.5mg Q8hrs PRN. - Diabetes mellitus - Continue Levemir 5 units QHS and sliding scale insulin. - Hypothyroidism - continue levothyroxine 150 g daily. - Hypertension - continue Valsartan 80mg QHS. - Cardiomyopathy - Continue Carvedilol 25mg BID, Valsartan. - Hx of seizure activity - continue Valproic acid 250mg Q12hrs. Full code. Heparin SQ. Devi Alejo DO Aug 11, 2016 2:33 pm
[2016-08-11] MEDS ORDERED: diphenhydrAMINE HCL 25 MG CAP PO ONE (14:45)
--- NOTE | 2016-08-11 16:37 | PD.CONS ---
Consult Service Palliative Care . Consult Requested By Dr. Cruz ., Primary Care Physician Unknown . Reason for Consultation a. To assist with evaluation and management of symptoms including: Lower extremity pain; confusion b. To assist medical decision maker(s) with: better understanding of current medical conditions; weighing benefits/burdens of medical treatment options; making medical treatment decisions. . HPI History of Present Illness Ms. Lemos is a 61-year-old female known to the palliative care service with a complicated history of severe peripheral vascular disease; refractory lower extremity wounds; recurrent cellulitis; diabetes mellitus; dilated cardiomyopathy; possible seizure; hypertension; hypothyroidism; and anemia who developed her first wounds around March 2016 and has been in and out of the hospital and rehab since. The patient is confused at the time of my visit and is unable to provide a coherent history. History is provided by the patient's daughter, Blanche, at the bedside in addition to history coming from the medical record. Several reports that the initially suspected the first wounds were due to some sort of "bite." The first wound reportedly began on the patient's abdomen, then one appeared on the right buttock, and then the wounds appeared on the legs. Of note, the patient [place] large property with multiple animals including horses, guinea pigs, dogs, and cats. There is no particular recollection of the patient being scratched or bitten by one of these animals but there is close contact. The patient has had hospitalizations for wound related problems as follows: * 04/18/2016 through 04/25/2016 * 05/13/2016 through 06/02/2016 * 06/16/2016 through 07/03/2016 * 07/03/2016 through 07/15/2016 for rehabilitation at [facility] * And this current admission which was a transfer from [facility] starting on 2016 Complications during these hospitalizations have included sepsis and renal failure. The renal failure at one time required hemodialysis but the patient's kidneys were able to recover. The patient has a significant cardiac history also complicating her treatment. She was followed by Dr. Castellanos and his partners. She is known to have a dilated cardiomyopathy. Ejection fraction was most recently reported as 35-40% but has been noted on prior echocardiograms to be as low as 20% (01/08/2015). The patient has repeatedly refused evaluation for her cardiomyopathy and has refused AICD placement. She has had runs of ventricular tachycardia noted during hospitalizations. The current acute hospitalization began on 07/15/2016 when the patient was transferred from [facility] due to hypoxia and altered mental status. The specific etiology of the event was never known for sure. It did not appear secondary to congestive heart failure. All sedating medication was held and the patient seemed to improve significantly overnight. By the next morning she was resting comfortably with O2 sats in the normal range with oxygen via nasal cannula at 2 L a minute and vital signs stable. She wanted to go back to rehabilitation. The patient's mental status apparently has waxed and waned. Her children report that she was often quite confused while at [facility] and had difficulty dissipating and physical therapy. Her son tells me that the last truly normal conversation he had with her when she seemed to be at her normal cognitive baseline was on 05/13/16. The patient underwent neurology consultation on 07/19/16. CT of the head as well as MRI of the brain were unremarkable. The patient did have some PLEDs seen on EEG and was placed on seizure medications. Her altered mental status was felt most likely due to medical encephalopathy. The patient underwent cardiology consultation on 07/19/16. The paper twister tender noted a run of ventricular tachycardia the previous day. As blood pressure was high another antihypertensive agent was added. The paper twister tender did not feel the event force and the patient to leave rehabilitation was due to congestive heart failure. He thought the ventricular tachycardia might of been due to electrolyte abnormalities. The patient's wounds continued to be problematic and it did not appear she could be discharged to rehabilitation without further addressing these issues. The patient was seen by plastic surgery, podiatry, and vascular surgery. The patient underwent excision and debridement of both lower extremities on 2016. Extensive necrotic wounds measuring approximately 30 x 25 cm on each side were debrided down to the subcutaneous tissue and down to the tendon on the left side. On 08/08/16 the patient underwent right lower extremity arteriography with balloon angioplasty of the right superficial femoral and proximal popliteal artery. Wound cultures from 07/31/16 grew out a combination of MRSA; Achromobacter Species; and Pseudomonas. Pain continues to be an enormous problem for the patient. She has severe pain in both lower extremities. Because of her confusion it is hard to get a good pain history. She is unable to quantify the pain or qualify it. It seems to be a little less painful when she is sitting up but that also seems to cause more edema in the lower extremities. Movement seems to exacerbate the pain. Most of the pain appears to be from the knees down. She is unable to tell me if she is more painful on the right or left side. Given the patient's altered mental status, there have been concerns about overmedicating the patient and one of the theories regarding the events causing the transfer from [facility] back to the hospital was that she might of had too much sedating medicine on board. The patient's son feels she probably had her best pain relief when she was on some long-acting morphine. This was stopped at the time of her renal failure. She was transitioned to a fentanyl patch at that time. The son tells me that ultimately appeared to be some significant confusion and hallucinations on the fentanyl and he prefers not to go back to that. Methadone might be considered a reasonable option for this patient though her congestive heart failure and history of ventricular tachycardia makes one wary of anything that might prolong the QT interval. The patient's current pain regimen includes only when necessary opiates. She can have either nor cold 5-325 one by mouth every 6 hours when necessary or hydromorphone 0.5 mg intravenously every 4 hours when necessary. She uses the hydromorphone prior to dressing changes. The patient's children are very involved and are having difficulty making decisions regarding the next step. One proposal has been a 60 treatment course of hyperbaric oxygen therapy. The patient would need to be home for this and then to commute for the treatments for approximately 2 hours every weekday. If there is not good improvement status post angioplasty and wounds continue to be a problem with infections and pain, the other possibility might be bilateral below the knee amputations. The wound management consult notes that even with hyperbaric oxygen treatments the patient may not be able to walk because of the tendon involvement of her wounds. Given her age, other medical problems, it is not likely that she would be able to use bilateral prosthetics and ambulate should she have lower extremity BKA's. The daughter is considering bringing her mother home with the help of home health and pursuing the hyperbaric oxygen option. She has attempted to help with simple transfers of the patient and seems to understand the challenges this would present of just getting the patient transferred back and forth to the treatments. . Function/Cognitive Trajectory The patient reportedly had no limitations on her activities prior to March,, when the wounds first began. She was still working and was cognitively sharp. She was taking care of all of her activities of daily living, driving, and doing chores around her home and with the numerous animals on her property. . Review of Systems ROS Limitations: Clinical Condition (patient is confused and cannot provide her own detailed review of systems. Review of systems taken as well as possible from medical record and available family.) Constitutional: COMPLAINS OF: Fatigue, Pain, Generalized weakness, DENIES: Weight loss Eyes: COMPLAINS OF: Vision loss (normally uses reading glasses), DENIES: Diplopia Ears, nose, mouth, throat: DENIES: Tinnitus, Hearing loss, Running Nose, Epistaxis Respiratory: DENIES: Apneas, Cough, Wheezing, Hemoptysis, Shortness of breath Cardiovascular: DENIES: Chest pain, Palpitations, Syncope Gastrointestinal: DENIES: Bloody stools, Constipation, Diarrhea, Nausea, Vomiting, Dyspepsia or heartburn Musculoskeletal: COMPLAINS OF: Joint pain, Back pain, DENIES: Neck pain Neurologic: COMPLAINS OF: Abnormal gait, Seizures, DENIES: Localized weakness Psychiatric: COMPLAINS OF: Anxiety, Confusion, Depression, Agitation Other ROS: Chronic, refractory, skin wounds Past Family Social History 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 Past Medical History Peripheral vascular disease Chronic recurrent wounds Recurrent cellulitis Hypertension Diabetes Cardiomyopathysustained after contrast-induced flash pulmonary edema- latest EF was 30% in March 2016. Obesity Hypothyroidism History of dermoid cyststatus post left oophorectomy 25 years ago Seizures? . Past Surgical History Excision / debridement both lower extremities 07/31/16 RLE ateriogram and balloon angioplasty 08/08/16 Left oophorectomy for dermoid cyst removal about 25 years ago Cholecystectomy Hernia repair . Reported Medications Medications at [facility] prior to this hospital admission included the following: Active Medications Dextrose (D50w (Vial) Inj) 25 ml UNSCH PRN IV PUSH; Start 07/15/16 at 09:00; Status Cancel Dextrose/Sodium Chloride (D5W-NS 1000 ml Inj) 1,000 ml @ 42 mls/hr [id number] PRN IV; Start 07/15/16 at 08:45 Gabapentin 300 mg 300 mg Q12H PO Last administered on 07/15/16 05:09; Admin Dose 300 MG; Start 07/14/16 at 18:00 Heparin Sodium (Porcine) (Heparin Inj) 5,000 units Q12HR SQ Last administered on 07/15/16 07:57; Admin Dose 5,000 UNITS; Start 07/14/16 at 21:00 Insulin Detemir 25 units 25 units HS SQ; Start 07/15/16 at 21:00 Levofloxacin (Levaquin) 250 mg Q48H PO; Start 07/15/16 at 14:00 Nystatin (Mycostatin Powder) 1 applic Q12HR TOPICAL; Start 07/15/16 at 11:00 Sodium Chloride (NS 1000 ml Inj) 1,000 ml @ 42 mls/hr [id number] IV Last administered on 07/14/16 15:10; Admin Dose 42 MLS/HR; Start 07/14/16 at 15:00; Stop 07/15/16 at 14:48 . Current Medications Medications (Trade) Dose Ordered Sig/Virgilio Route Start Time Stop Time Status Last Admin (NS 1000 ml Inj) 1,000 ml @ 84 mls/hr [id number] IV 07/15/16 19:42 Hold 08/05/16 16:12 (NS Flush) 2 ml UNSCH PRN IV FLUSH 07/15/16 19:45 08/09/16 06:36 (NS Flush) 2 ml BID IV FLUSH 07/15/16 21:00 08/11/16 09:22 (Zofran Inj) 4 mg Q6H PRN IV 07/15/16 19:45 07/31/16 13:23 (Reglan Inj) 5 mg Q6H PRN IV 07/15/16 19:45 (Heparin Inj) 5,000 units Q8HR SQ 07/15/16 22:00 08/11/16 13:50 Miscellaneous Information 1 [id number] XX 07/15/16 19:45 07/15/16 19:45 (Chlorhexidine 2% Cloth) Taper DAILY@04 TOP 07/16/16 04:00 07/12/17 03:59 07/17/16 03:11 (Chlorhexidine 2% Cloth) 3 pack UNSCH PRN TOP 07/15/16 19:45 (Coreg) 25 mg BID PO 07/15/16 21:00 08/11/16 09:18 (Isordil) 5 mg Q8HR PO 07/15/16 22:00 08/11/16 13:50 (Lactinex) 1 tab TID PO 07/16/16 09:00 08/11/16 13:50 (Synthroid) 150 mcg DAILY@06 PO 07/16/16 06:00 08/11/16 05:45 (Cytomel) 5 mcg DAILY PO 07/16/16 09:00 08/11/16 09:17 (Pill Splitter) 1 ea UNSCH PRN OTHER 07/15/16 21:30 (Ecotrin Ec) 325 mg DAILY PO 07/16/16 09:00 08/11/16 09:17 (Pepcid Inj) 20 mg Q12HR IV PUSH 07/18/16 21:00 08/11/16 09:19 (Dilaudid Pf Inj) 0.5 mg Q4H PRN IV PUSH 07/18/16 11:45 08/10/16 17:03 ([place] 5-325 Mg) 1 tab Q6H PRN PO 07/18/16 11:45 08/11/16 10:08 (Haldol Inj) 2 mg Q6H PRN IM 07/19/16 12:30 Hold 07/30/16 01:29 (Ativan Inj) 1 mg Q6H PRN IV PUSH 07/19/16 12:30 Hold 07/28/16 06:09 (D50w (Vial) Inj) 25 ml UNSCH PRN IV PUSH 07/23/16 11:00 (Glucagon Inj) 1 mg UNSCH PRN OTHER 07/23/16 11:00 (Depakene) 250 mg Q12HR PO 07/27/16 09:00 08/11/16 10:07 (Diovan) 80 mg HS PO 07/27/16 21:00 08/10/16 21:16 (Vasotec Inj) 1.25 mg Q8H PRN IV PUSH 07/28/16 16:00 (Levemir Inj) 5 units HS SQ 07/30/16 21:00 08/10/16 21:19 Melatonin 5 mg 5 mg HS PO 07/30/16 21:00 08/10/16 21:15 (Gentamicin Inj/ NS Irr Btl) 1,005 ml @ 0 mls/hr UNSCH PRN IRRIGATION 07/31/16 13:30 (KCl) 10 meq Q8HR PO 08/11/16 14:00 08/16/16 13:59 08/11/16 13:51 (KlonoPIN) 0.5 mg Q8HR PO 08/11/16 14:45 . Family History * Mother of colon cancer * Father and sister of COPD * ? DM in father and mother . Substance Use Tobacco: Quit tobacco in the Alcohol: No history of abuse Prescription med abuse: No known prescription drug abuse Illicits: No known use of illicits . Psychosocial History The patient is originally from [facility]. She moved to [place] approximately in 1984 and lives in [place]. She is a college graduate with a degree in biology. 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 She worked many years here at [employer]. The patient is been twice. The first marriage lasted approximately 18 years. She has been with her current for approximately 14 years. The patient had 2 children with her first . Her daughter, Blanche, lives in [place] close to the patient. The patient's son, Kalpesh, lives in [place]. There are no grandchildren.. . Spiritual/Cultural Factors The patient is Jewish. She has not been involved with synagogue recently. She used to be a member of [employer]. . Living Will: Never completed Health Care Surrogate: Never completed Durable Power of Concession Stand Attendant: Completed, but not made available Date completed: Family reports there is a completed POA document -- not available to us at this time. Unknown date. . Health Care Surrogate(s): is reportedly the health care POA. Even if there is no documented designation of health care POA or surrogate, he would serve as proxy. . Documented care wishes: No documented wishes of patient's expressed health care goals/preferences. . Today's verbally stated goals: The patient is confused and unable to state her health care goals and preferences. It is hoped that she will regain capacity to do so. . Family/friends goals: I have not yet spoken to the patient's . The patient's children desire ongoing aggressive care but are uncertain whether or not to opt for bilateral lower extremity low the knee amputations or try the long course of hyperbaric oxygen therapy. . Ethical and Legal Issues The patient is currently confused and unable to make her own health care decisions. It is unclear when she might regain capacity to make those decisions. . Physical Exam Vital Signs Date Time Temp Pulse Resp B/P Pulse Ox O2 Delivery O2 Flow Rate FiO2 08/11/16 12:04 99.4 73 20 117/58 96 08/11/16 08:10 Room Air 08/11/16 08:02 98.2 76 20 132/64 97 08/11/16 07:54 16 08/11/16 04:15 98.1 75 20 151/65 95 08/11/16 00:02 98.4 75 22 112/56 95 08/10/16 20:18 76 08/10/16 20:12 97.3 79 20 125/57 95 08/10/16 20:00 Room Air 08/10/16 17:40 20 . 08/10/16 08/11/16 19:00 07:00 Intake Total 480 ml 100 ml Output Total 300 ml Balance 180 ml 100 ml Intake Oral 480 ml 100 ml Output Urine Total 300 ml # Voids 3 # Bowel Movements 5 1 . Exam CONSTITUTIONAL/GENERAL: This is an adequately nourished patient. She is conversant but quite confused. There is evidence of some visual hallucinations. Many answers are inappropriate. She frequently calls out in pain. TUBES/LINES/DRAINS: Peripheral IV; SKIN: No jaundice. Ecchymoses on upper extremities. I did not remove the patient's lower extremity dressings. Dry, gangrenous changes are noted on the digits of both feet. Skin temperature appropriate. Not diaphoretic. HEAD: Atraumatic. Normocephalic. EYES: Pupils equal and round and reactive. Extraocular motions intact. No scleral icterus. No injection or drainage. Fundi not examined. ENT: Hearing grossly normal. Nose without bleeding or purulent drainage. Throat without visible erythema, exudates, masses, or lesions. NECK: Trachea midline. Supple, nontender. No palpable thyroid enlargement or nodularity. CARDIOVASCULAR: Regular rate and rhythm without murmurs, gallops, or rubs. No JVD. Peripheral pulses symmetric. RESPIRATORY/CHEST: Symmetric, unlabored respirations. Clear to auscultation. Breath sounds equal bilaterally. No wheezes, rales, or rhonchi. GASTROINTESTINAL: Abdomen soft, non-tender, nondistended. No hepato-splenomegaly , or palpable masses. No guarding. Bowel sounds present. GENITOURINARY: Without palpable bladder distension. MUSCULOSKELETAL: Both lower extremities are edematous. Dressing was not removed from her wounds. Dry gangrenous changes to the digits of both feet. No calf tenderness. No mottling or clubbing. LYMPHATICS: No palpable cervical or supraclavicular adenopathy. NEUROLOGICAL: Awake and alert but confused. Follows basic commands. Moves all extremities. PSYCHIATRIC: Visual hallucinations noted. Intermittently disoriented to time and place. . Diagnostic Tests Laboratory Laboratory Tests Test 08/10/16 08/11/16 14:30 05:59 Urine Color YELLOW (YELLW/STRAW) Urine Turbidity HAZY (CLEAR) Urine pH 5.5 (5.0-8.5) Urine Specific [place] 1.025 (1.002-1.035) Urine Protein 30 mg/dL (NEG-TRACE) Urine Glucose (UA) NEG mg/dL (NEG) Urine Ketones 10 mg/dL (NEG) Urine Occult Blood TRACE (NEG) Urine Nitrite NEG (NEG) Urine Bilirubin NEG (NEG) Urine Urobilinogen LESS THAN 2.0 MG/DL (LESS THAN 2.0) Urine Leukocyte Esterase LARGE (NEG) Urine RBC 32 /hpf (0-3) Urine WBC 100 /hpf (0-5) Urine Squamous Epithelial 22 /hpf (0-5) Cells Urine Bacteria OCC /hpf (NONE) Urine Mucus MOD /lpf (OCC) Urine Yeast (Budding) MANY (NONE) Microscopic Urinalysis Comment CULTURE INDICATED White Blood Count 10.5 TH/MM3 (4.0-11.0) Red Blood Count 3.44 MIL/MM3 (4.00-5.30) Hemoglobin 8.1 GM/DL (11.6-15.3) Hematocrit 26.1 % (35.0-46.0) Mean Corpuscular Volume 76.1 FL (80.0-100.0) Mean Corpuscular Hemoglobin 23.5 PG (27.0-34.0) Mean Corpuscular Hemoglobin 30.8 % Concent (32.0-36.0) Red Cell Distribution Width 18.6 % (11.6-17.2) Platelet Count 243 TH/MM3 (150-450) Mean Platelet Volume 7.2 FL (7.0-11.0) Neutrophils (%) (Auto) 78.8 % (16.0-70.0) Lymphocytes (%) (Auto) 13.3 % (9.0-44.0) Monocytes (%) (Auto) 5.9 % (0.0-8.0) Eosinophils (%) (Auto) 1.8 % (0.0-4.0) Basophils (%) (Auto) 0.2 % (0.0-2.0) Neutrophils # (Auto) 8.3 TH/MM3 (1.8-7.7) Lymphocytes # (Auto) 1.4 TH/MM3 (1.0-4.8) Monocytes # (Auto) 0.6 TH/MM3 (0-0.9) Eosinophils # (Auto) 0.2 TH/MM3 (0-0.4) Basophils # (Auto) 0.0 TH/MM3 (0-0.2) CBC Comment AUTO DIFF Differential Total Cells 100 Counted Neutrophils % (Manual) 70 % (16-70) Band Neutrophils % 17 % (0-6) Lymphocytes % 10 % (9-44) Monocytes % 3 % (0-8) Neutrophils # (Manual) 9.1 TH/MM3 (1.8-7.7) Differential Comment FINAL DIFF MANUAL Platelet Estimate NORMAL (NORMAL) Platelet Morphology Comment NORMAL (NORMAL) Sodium Level 144 MEQ/L (136-145) Potassium Level 3.3 MEQ/L (3.5-5.1) Chloride Level 106 MEQ/L (98-107) Carbon Dioxide Level 30.2 MEQ/L (21.0-32.0) Anion Gap 8 MEQ/L (5-15) Blood Urea Nitrogen 11 MG/DL (7-18) Creatinine 0.53 MG/DL (0.50-1.00) Estimat Glomerular Filtration 117 ML/MIN Rate (>89) Random Glucose 84 MG/DL (74-106) Calcium Level 7.5 MG/DL (8.5-10.1) . Result Diagram: 08/11/16 0559 08/11/16 0559 Microbiology Microbiology Date/Time Procedure Status Source Growth 08/10/16 14:30 Urine Culture - Preliminary Resulted Urine Clean Catch Gram Negative [facility] Last Impressions Upper Extremity Ultrasound 07/28/16 0000 Signed Impressions: Service Date/Time: Thursday, July 28, 2016 14:34 - CONCLUSION: No DVT is identified within the right upper extremity. Alfredo Eng MD Chest X-Ray 07/20/16 0000 Signed Impressions: Service Date/Time: Wednesday, July 20, 2016 12:38 - CONCLUSION: Mild left base consolidation developing. Alfredo Sneed MD Brain MRI 07/20/16 0000 Signed Impressions: Service Date/Time: Wednesday, July 20, 2016 09:15 - CONCLUSION: No acute intracranial abnormality. Moderately severe chronic white matter changes, nonspecific but most likely small vessel ischemia. Alfredo Sneed MD Head CT 07/19/16 0000 Signed Impressions: Service Date/Time: Tuesday, July 19, 2016 09:58 - CONCLUSION: No acute intracranial findings. João Otoole MD Foot X-Ray 07/16/16 0000 Signed Impressions: Service Date/Time: Saturday, July 16, 2016 17:34 - CONCLUSION: 1. Nonspecific soft tissue swelling. No acute bone destruction demonstrated. 2. Mild talonavicular and navicular/cuneiform degenerative changes. 3. Second through fifth hammertoe. 4. Moderate-sized heel spur. Alfredo Sneed MD . Procedures 07/31/2016 Excision and debridement of both legs, extensive necrotic wounds approximately 30 x 25 cm area on each side, total 1000 to 1100 cm square, down to the subcutaneous tissue and tendon on the left side. 08/08/2016 1. Selective right lower extremity arteriogram. 2. Balloon angioplasty with a 4 mm x 2200 mm and then a 5 x 200 mm Medtronic angioplasty balloon of the right superficial femoral and proximal popliteal artery. . Patient/Family Conference Present at Family Conference: Patient and daughter Blanche in patient's room. Son--Kalpesh -- listening in by phone. . Family Conference Time (mins): 45 Family Conference Location: Bedside, Telephone Issues Discussed: * Palliative care role, purpose, approach * Additional medical, psychosocial, and spiritual history * Patients general health, functional status, and cognitive changes in the months leading up to the current hospitalization * Patient/family understanding of the current medical problems * Patient/family understanding of prognosis * Patients goals of care as best understood from conversations and/or values * Current medical treatment options and benefits/burdens of those options * Questions answered to the best of my ability * Palliative care contact information provided . Assessment and Plan Disease Oriented Problem List: (1) PVD (peripheral vascular disease) (2) DM (diabetes mellitus), type 2, uncontrolled, periph vascular complic (3) CHF (congestive heart failure) (4) Hypertension (5) Cellulitis of left lower extremity (6) Delirium due to another medical condition (7) VT (ventricular tachycardia) (8) Ulcer of heel and midfoot (9) Hypothyroidism Symptom Scale: (1) Pain 0-10 Scale: Unable to quantify Comment: Patient unable to quantify or qualify her own pain. There is frequent moaning and calling out suggesting the pain is quite severe. Pain most likely due to ischemia and the wounds themselves. May be a component of neuropathic pain from the diabetes. . (2) Confusion 0-10 Scale: Unable to quantify Comment: Confusion is probably multifactorial. Patient apparently was cognitively sharp up until about 05/13/2016. Has had intermittent confusion since including hallucinations and disorientation. . Pertinent Non-Medical Issues Psychosocial: Spiritual: Legal: Ethical issues impacting care: Important Contacts * Alfredo Lemos (spouse) [phone] * Kalpesh (son) [phone] * Blanche (daughter) [phone] . Prognosis The patient has severe peripheral vascular disease and accompanying refractory lower extremity wounds. Wounds have worsened in spite of aggressive care beginning in March 2016. Wounds now involve tendon structures in the feet. Patient might be able to benefit and achieve healing with hyperbaric oxygen. Otherwise she will likely need bilateral below the knee amputations. Prognosis greatly depends on success of managing these infections. While these infections continue, she remains at risk for sepsis. Based on the merchandising consultant's notes, it appears unlikely regardless of treatment course that she will be ambulating independently in the future. Her success in any type of rehabilitation will also depend on her ability to clear cognitively and have adequate pain relief without accompanying oversedation. . Code Status: Full Code Plan ==CODE STATUS: Full code ==Decision making: Patient is currently incapacitated to make her own health care decisions. She is confused and it is unclear if/when she will regain capacity. While in capacitated, her husbandJohnis technically her health care decision-maker. I am told he has both financial and health care power of workers compensation attorney but those documents are not on the chart. Children tell me that the is struggling in both these roles. He apparently is consulting both the patient's daughter and son who are heavily involved. == Goals of medical treatment: At this time goals were aggressive. There is no talk of transitioning to comfort measures only. Family feels the patient is not going to be able to endure this pain much longer and are trying to make decisions between hyperbaric oxygen therapy or perhaps bilateral [id number] amputations. == Confusion: Patient apparently has had some cognitive changes since around 05/13/16. Family reports these appear to be worse over the last few days. Urine is been cultured and is growing out a gram-negative klever. Patient most likely has a multifactorial delirium and that may be worsened by a urinary tract infection. Hopefully appropriate antibiotics will help to clear this. We'll leave antibiotic choice up to the hospitalist team. == Pain: Pain appears mostly secondary to ischemic pain and wound pain in the lower extremities. She may also have some lower extremity pain secondary to diabetic neuropathy. Patient is unable to quantify or qualify her pain adequately due to her cognitive challenges. Managing pain will remain quite difficult. Giving her amounts of opiate analgesics that appears to work on the pain also reportedly is enough that she becomes lethargic. She apparently had a negative reaction to fentanyl. She has a history of acute kidney injury so we may need to be careful of opiates requiring renal metabolism. She became too sedated on gabapentin. Methadone might normally be a good option for her but her heart failure and history of ventricular tachycardia makes one wary to use and opiate that might prolong QT interval. We are left with few choices. Probably hydromorphone remains the best option. I would probably recommend simplifying her regimen. I would use 2 mg of by mouth hydromorphone every 4 hours when necessary pain/shortness of breath number 1 through 7. For more severe pain and for pre-medicating for dressing changes I would recommend the parenteral hydromorphone at 0.5- 0.75 mg every 3 hours when necessary. == Assisting the family with options: * Family's first preference is to have the patient stay in the hospital and receive her initial hyperbaric treatments here while they're trying to get her strong enough to return home. My understanding is that that option will not be possible for insurance reasons. * Family also needs to know if vascular surgery believes the angioplasty was successful and likely to lead to healing of the right lower extremity. This will help them in making decisions. * Looking at the level of the patient's discomfort today, it is hard to imagine a discharge home with home health and then the family being responsible to transport the patient for hyperbaric oxygen every weekday. There is just not enough help at home. I am not sure the daughter fully realizes how challenging this might be. * If vascular surgery doubts the wounds are likely to heal at this point and given the challenges of trying to get the patient to undergo hyperbaric oxygen therapy (which may or may not succeed) family is considering bilateral below the knee amputations. One would not want to do this prematurely, but this might be the best way of relieving the patient's pain, enabling her to rehabilitation and get on with her life. It also does not seem like such a horrible option if, indeed, as are wound consult suggests, but even with hyperbaric oxygen treatments the patient will not be likely to ambulate on her own. == If/when patient becomes cognitively clear, the patient's children would like her to complete a living will and to reconsider who she would want to choose for her health care surrogate. Until such time, the patient's remains the legal health care decision-maker. == Palliative care contact information provided == Palliative care we'll continue to follow the patient to assist with symptom management and to further clarify goals of medical treatment as the clinical course evolves. . Thank you for the opportunity to participate in the care of Ms. Lemos. . Attestation To help prompt me to consider important information that might be impacting today's encounter and assessment, information from prior notes written by myself or my colleagues may have been "brought forward" into today's note. My signature on this note, however, is an attestation that I personally performed the exam, history, and/or decision-making noted today, and, unless otherwise indicated, the interactions with patient, family, and staff as well as the review of records all occurred today. I also attest that the listed assessment and stated plan reflect my best clinical judgment today based on the combination of historical information, prior notes, and today's exam/ interactions. When time spent is documented, it refers only to time spent today by the signer, or if indicated, combined time spent today by collaborating physician/nurse practitioner. . Alton Ohara MD Aug 11, 2016 16:36
--- NOTE | 2016-08-11 17:20 | PD.PLAS.PN ---
Subjective Remarks Patient seen yesterday - approx afternoon Both leg wounds are being dressed with occlusive dressings as per Dr. Aquino ? Approved for Hyperbaric O2 - outpatient Discussed terminal manager management of the leg wounds - to get good granulations and then skin graft. The tendon on the left leg may take a long time to get covered with granulations - also may be partly lost. She can see Dr. Aquino and also any surgeon / plastic surgeon on her [employer] policy once she is discharged. I will sign off. It is ok to discharge her from my side. Thank you for the consult. Vital Signs Date Time Temp Pulse Resp B/P Pulse Ox O2 Delivery O2 Flow Rate FiO2 08/11/16 12:04 99.4 73 20 117/58 96 08/11/16 08:10 Room Air 08/11/16 08:02 98.2 76 20 132/64 97 08/11/16 07:54 16 08/11/16 04:15 98.1 75 20 151/65 95 08/11/16 00:02 98.4 75 22 112/56 95 08/10/16 20:18 76 08/10/16 20:12 97.3 79 20 125/57 95 08/10/16 20:00 Room Air 08/10/16 17:40 20 I/O 08/10/16 08/10/16 08/10/16 08/11/16 08/11/16 08/11/16 07:00 15:00 23:00 07:00 15:00 23:00 Intake Total 50 ml 480 ml 100 ml Output Total 300 ml Balance 50 ml 180 ml 100 ml Intake Oral 50 ml 480 ml 100 ml Output Urine Total 300 ml # Voids 2 1 2 # Bowel Movements 2 5 1 Laboratory Tests Test 08/11/16 05:59 White Blood Count 10.5 Red Blood Count 3.44 Hemoglobin 8.1 Hematocrit 26.1 Mean Corpuscular Volume 76.1 Mean Corpuscular Hemoglobin 23.5 Mean Corpuscular Hemoglobin 30.8 Concent Red Cell Distribution Width 18.6 Platelet Count 243 Mean Platelet Volume 7.2 Neutrophils (%) (Auto) 78.8 Lymphocytes (%) (Auto) 13.3 Monocytes (%) (Auto) 5.9 Eosinophils (%) (Auto) 1.8 Basophils (%) (Auto) 0.2 Neutrophils # (Auto) 8.3 Lymphocytes # (Auto) 1.4 Monocytes # (Auto) 0.6 Eosinophils # (Auto) 0.2 Basophils # (Auto) 0.0 CBC Comment AUTO DIFF Differential Total Cells 100 Counted Neutrophils % (Manual) 70 Band Neutrophils % 17 Lymphocytes % 10 Monocytes % 3 Neutrophils # (Manual) 9.1 Differential Comment FINAL DIFF MANUAL Platelet Estimate NORMAL Platelet Morphology Comment NORMAL Sodium Level 144 Potassium Level 3.3 Chloride Level 106 Carbon Dioxide Level 30.2 Anion Gap 8 Blood Urea Nitrogen 11 Creatinine 0.53 Estimat Glomerular Filtration 117 Rate Random Glucose 84 Calcium Level 7.5 Date/Time Procedure Status Source Growth 08/10/16 14:30 Urine Culture - Preliminary Resulted Urine Clean Catch Gram Negative Klever Result Diagram: 08/11/16 0559 08/11/16 0559 Bello Pepe MD Aug 11, 2016 17:20
[2016-08-11] MEDS: clonazePAM 0.5 MG TAB PO SCH ×2 (17:50→22:22)
[2016-08-11 20:00] VITALS: BP 145/66; PULSE 78; PULSE 79; RESP 18; TEMP 99.8; O2SAT 95
[2016-08-11] MEDS: INSULIN DETEMIR 100 UNITS/ML VIAL SQ SCH (21:00)
[2016-08-11] MEDS: MELATONIN 5 MG TAB PO SCH (22:22)
[2016-08-11] MEDS: VALSARTAN 80 MG TAB PO SCH (22:23)
[2016-08-12] VITALS (8 sets, daily range): BP systolic 121–149; BP diastolic 60–67; PULSE 68–75; RESP 16–18; TEMP 97.1–99.9; O2SAT 92–97
[2016-08-12] MEDS: SODIUM CHLORIDE 0.9% FLUSH 5 ML FLUSH IV FLUSH PRN ×2 (00:31→05:30)
[2016-08-12] MEDS: HYDROmorphone HCL PF 1 MG/ML VIAL IV PUSH PRN ×3 (00:31→20:32)
[2016-08-12] MEDS: ACETAMINOPHEN/HYDROcodone 325 MG/5 MG TAB PO PRN ×2 (01:11→09:04)
[2016-08-12] MEDS: clonazePAM 0.5 MG TAB PO SCH (05:29)
[2016-08-12] MEDS: ISOSORBIDE DINITRATE 5 MG TAB PO SCH ×3 (05:29→20:33)
[2016-08-12] MEDS: POTASSIUM CHLORIDE 10 MEQ CONTROLLED RELEASE TAB PO SCH ×3 (05:29→20:34)
[2016-08-12] MEDS: HEPARIN SODIUM - SQ 10,000 UNITS/ML VIAL SQ SCH ×3 (05:29→20:31)
[2016-08-12] MEDS: LEVOTHYROXINE SODIUM 150 MCG TAB PO SCH (05:29)
[2016-08-12] MEDS: INSULIN ASPART SUPPLEMENTAL SCALE SQ SCH ×4 (07:00→20:36)
[2016-08-12] MEDS: VALPROIC ACID 250 MG CAP PO SCH ×2 (09:04→20:33)
[2016-08-12] MEDS: ASPIRIN EC 325 MG TABEC PO SCH (09:04)
[2016-08-12] MEDS: LIOTHYRONINE SODIUM 5 MCG TAB PO SCH (09:04)
[2016-08-12] MEDS: LACTOBACILLUS ACIDOPHILUS TAB PO SCH ×3 (09:05→18:20)
[2016-08-12] MEDS: SODIUM CHLORIDE 0.9% FLUSH 5 ML FLUSH IV FLUSH SCH ×2 (09:05→20:33)
[2016-08-12] MEDS: CARVEDILOL 12.5 MG TAB PO SCH ×2 (09:05→20:33)
[2016-08-12] MEDS: FAMOTIDINE 20 MG/2 ML VIAL IV PUSH SCH (09:05)
--- NOTE | 2016-08-12 11:50 | HHI.HCPN ---
Reason for visit a. To assist with evaluation and management of symptoms including: Lower extremity pain; confusion b. To assist medical decision maker(s) with: better understanding of current medical conditions; weighing benefits/burdens of medical treatment options; making medical treatment decisions. . Subjective/Interval History Ms. Lemos is lethargic at time of my visit. She arouses to loud voice and exam, but quickly drifts back to sleep. When awake she is delirious and yells out. She is unable to give me coherent answers regarding pain or other symptoms. Her breakfast tray is untouched at her bedside. She was completely disrobed in her bed. Patient is now on scheduled clonazepam and had her last 0.5 mg dose at 0529 ( about 5 hours prior to my visit.) Her last opiates included 0.5 mg hydromorphone IV at 0529 and Guion 5-325 at 0904. Use of prn's on 08/11 was as follows: * Hydromrophone 0.5 mg IV -- None * Guion 5-325 3 doses Tmax 99.9. Other VS stable. No new CBC /Chem. Urine Cx --> E coli ESBL Spoke with Dr. White via phone. He notes that the patient's wounds seem out of proportion to her vascular issues. Though blood flow has been established in both lower extremities, he notes that wounds are so extensive that healing will likely require plastic surgery intervention and/or extensive wound management. He notes that she is almost like a bad burn patient. Dr. White also raises the question is there is another underlying medical problem such as an autoimmune disease that is interfering with healing. I have left a message for Dr. Pepe to get his opinion on prognosis for these wounds. Goal is to be able to better guide family. . Family/friend interactions No friends/family at bedside. Family has asked me to call them this evening. . Advance Directives Living Will: Never completed Health Care Surrogate: Never completed Durable Power of Tanbark Laborer: Completed, but not made available Advance Directive Specifics Date completed: Family reports there is a completed POA document -- not available to us at this time. Unknown date. . Health Care Surrogate(s): is reportedly the health care POA. Even if there is no documented designation of health care POA or surrogate, he would serve as proxy. . Documented care wishes: No documented wishes of patient's expressed health care goals/preferences. . Objective Vital Signs Date Time Temp Pulse Resp B/P Pulse Ox O2 Delivery O2 Flow Rate FiO2 08/12/16 08:00 99.9 72 18 133/60 96 08/12/16 04:00 98.8 72 18 121/63 92 08/12/16 00:00 99.1 75 18 146/67 95 08/11/16 20:00 79 08/11/16 20:00 99.8 78 18 145/66 95 08/11/16 19:00 95 Room Air 08/11/16 12:04 99.4 73 20 117/58 96 Intake & Output 08/12/16 08/12/16 07:00 19:00 Intake Total 340 ml Balance 340 ml Intake Oral 340 ml # Voids 2 # Bowel Movements 3 . Physical Exam CONSTITUTIONAL/GENERAL: This is an adequately nourished patient. Lethargic. Arouses to voice/exam, but quickly drifts back to sleep. When awakened, she cries out and appears to be responding to imaginary stimuli. TUBES/LINES/DRAINS: Peripheral IV; SKIN: No jaundice. Ecchymoses on upper extremities. I did not remove the patient's lower extremity dressings. Dry, gangrenous changes are noted on the digits of both feet. Skin temperature appropriate. Not diaphoretic. HEAD: Atraumatic. Normocephalic. EYES: Pupils equal and round. Extraocular motions intact. No scleral icterus. No injection or drainage. Fundi not examined. ENT: Hearing grossly normal. Nose without bleeding or purulent drainage. NECK: Trachea midline. Supple. CARDIOVASCULAR: Regular rate and rhythm without murmurs, gallops, or rubs. No JVD. RESPIRATORY/CHEST: Symmetric, unlabored respirations. Clear to auscultation. Breath sounds equal bilaterally. No wheezes, rales, or rhonchi. GASTROINTESTINAL: Abdomen soft, non-tender, nondistended. No hepato-splenomegaly , or palpable masses. No guarding. Bowel sounds present. GENITOURINARY: Without palpable bladder distension. MUSCULOSKELETAL: Both lower extremities are edematous. Dressing was not removed from her wounds. Dry gangrenous changes to the digits of both feet. LYMPHATICS: Not examined NEUROLOGICAL: Lethargic. Hallucinating. Moves all extremities. PSYCHIATRIC: Visual hallucinations noted. . Diagnostic Tests Laboratory Laboratory Tests Test 08/10/16 08/11/16 14:30 05:59 Urine Color YELLOW (YELLW/STRAW) Urine Turbidity HAZY (CLEAR) Urine pH 5.5 (5.0-8.5) Urine Specific Franklin 1.025 (1.002-1.035) Urine Protein 30 mg/dL (NEG-TRACE) Urine Glucose (UA) NEG mg/dL (NEG) Urine Ketones 10 mg/dL (NEG) Urine Occult Blood TRACE (NEG) Urine Nitrite NEG (NEG) Urine Bilirubin NEG (NEG) Urine Urobilinogen LESS THAN 2.0 MG/DL (LESS THAN 2.0) Urine Leukocyte Esterase LARGE (NEG) Urine RBC 32 /hpf (0-3) Urine WBC 100 /hpf (0-5) Urine Squamous Epithelial 22 /hpf (0-5) Cells Urine Bacteria OCC /hpf (NONE) Urine Mucus MOD /lpf (OCC) Urine Yeast (Budding) MANY (NONE) Microscopic Urinalysis Comment CULTURE INDICATED White Blood Count 10.5 TH/MM3 (4.0-11.0) Red Blood Count 3.44 MIL/MM3 (4.00-5.30) Hemoglobin 8.1 GM/DL (11.6-15.3) Hematocrit 26.1 % (35.0-46.0) Mean Corpuscular Volume 76.1 FL (80.0-100.0) Mean Corpuscular Hemoglobin 23.5 PG (27.0-34.0) Mean Corpuscular Hemoglobin 30.8 % Concent (32.0-36.0) Red Cell Distribution Width 18.6 % (11.6-17.2) Platelet Count 243 TH/MM3 (150-450) Mean Platelet Volume 7.2 FL (7.0-11.0) Neutrophils (%) (Auto) 78.8 % (16.0-70.0) Lymphocytes (%) (Auto) 13.3 % (9.0-44.0) Monocytes (%) (Auto) 5.9 % (0.0-8.0) Eosinophils (%) (Auto) 1.8 % (0.0-4.0) Basophils (%) (Auto) 0.2 % (0.0-2.0) Neutrophils # (Auto) 8.3 TH/MM3 (1.8-7.7) Lymphocytes # (Auto) 1.4 TH/MM3 (1.0-4.8) Monocytes # (Auto) 0.6 TH/MM3 (0-0.9) Eosinophils # (Auto) 0.2 TH/MM3 (0-0.4) Basophils # (Auto) 0.0 TH/MM3 (0-0.2) CBC Comment AUTO DIFF Differential Total Cells 100 Counted Neutrophils % (Manual) 70 % (16-70) Band Neutrophils % 17 % (0-6) Lymphocytes % 10 % (9-44) Monocytes % 3 % (0-8) Neutrophils # (Manual) 9.1 TH/MM3 (1.8-7.7) Differential Comment FINAL DIFF MANUAL Platelet Estimate NORMAL (NORMAL) Platelet Morphology Comment NORMAL (NORMAL) Sodium Level 144 MEQ/L (136-145) Potassium Level 3.3 MEQ/L (3.5-5.1) Chloride Level 106 MEQ/L (98-107) Carbon Dioxide Level 30.2 MEQ/L (21.0-32.0) Anion Gap 8 MEQ/L (5-15) Blood Urea Nitrogen 11 MG/DL (7-18) Creatinine 0.53 MG/DL (0.50-1.00) Estimat Glomerular Filtration 117 ML/MIN Rate (>89) Random Glucose 84 MG/DL (74-106) Calcium Level 7.5 MG/DL (8.5-10.1) . Result Diagram: 08/11/16 0559 08/11/16 0559 Microbiology Microbiology Date/Time Procedure Status Source Growth 08/10/16 14:30 Urine Culture - Final Complete Urine Clean Catch Escherichia Coli Esbl Positive . Imaging Last Impressions Upper Extremity Ultrasound 07/28/16 0000 Signed Impressions: Service Date/Time: Thursday, July 28, 2016 14:34 - CONCLUSION: No DVT is identified within the right upper extremity. Alfredo Eng MD Chest X-Ray 07/20/16 0000 Signed Impressions: Service Date/Time: Wednesday, July 20, 2016 12:38 - CONCLUSION: Mild left base consolidation developing. Alfredo Sneed MD Brain MRI 07/20/16 0000 Signed Impressions: Service Date/Time: Wednesday, July 20, 2016 09:15 - CONCLUSION: No acute intracranial abnormality. Moderately severe chronic white matter changes, nonspecific but most likely small vessel ischemia. Alfredo Sneed MD Head CT 07/19/16 0000 Signed Impressions: Service Date/Time: Tuesday, July 19, 2016 09:58 - CONCLUSION: No acute intracranial findings. João Otoole MD Foot X-Ray 07/16/16 0000 Signed Impressions: Service Date/Time: Saturday, July 16, 2016 17:34 - CONCLUSION: 1. Nonspecific soft tissue swelling. No acute bone destruction demonstrated. 2. Mild talonavicular and navicular/cuneiform degenerative changes. 3. Second through fifth hammertoe. 4. Moderate-sized heel spur. Alfredo Sneed MD . Procedures 07/31/2016 Excision and debridement of both legs, extensive necrotic wounds approximately 30 x 25 cm area on each side, total 1000 to 1100 cm square, down to the subcutaneous tissue and tendon on the left side. 08/08/2016 1. Selective right lower extremity arteriogram. 2. Balloon angioplasty with a 4 mm x 2200 mm and then a 5 x 200 mm Medtronic angioplasty balloon of the right superficial femoral and proximal popliteal artery. Note that patient had these additional procedures on prior admissions: * Bilateral lower extremity wound debridements 05/15/16 * Bilateral LE Debridements and Left SFA angioplasty on 06/23/16 . Assessment and Plan Disease Oriented Problem List: (1) PVD (peripheral vascular disease) (2) DM (diabetes mellitus), type 2, uncontrolled, periph vascular complic (3) CHF (congestive heart failure) (4) Hypertension (5) Cellulitis of left lower extremity (6) Delirium due to another medical condition (7) VT (ventricular tachycardia) (8) Ulcer of heel and midfoot (9) Hypothyroidism (10) Anemia (11) Urinary tract infection Comment: Cx of 08/11/16 growing out E coli ESBL . Symptom Scale: (1) Pain 0-10 Scale: Unable to quantify Comment: Patient unable to quantify or qualify her own pain. There is frequent moaning and calling out suggesting the pain is quite severe. Pain most likely due to ischemia and the wounds themselves. May be a component of neuropathic pain from the diabetes. . (2) Confusion 0-10 Scale: Unable to quantify Comment: Confusion is probably multifactorial. Patient apparently was cognitively sharp up until about 05/13/2016. Has had intermittent confusion since including hallucinations and disorientation. Now with known UTI which may be contributing. . Pertinent Non-Medical Issues Psychosocial: Psychosocial support from and daughter (lives locally). Son in [place] is very involved. Spiritual: Yazidism. Had been a member of [email or web address]. Legal: Family reports there is a completed POA for finance and health care. Ethical issues impacting care: Patient is currently incapacitated due to delirium. . Important Contacts * Alfredo Lemos (spouse) [phone] * Kalpesh (son) [phone] * Blanche (daughter) [phone] . Prognosis The patient has severe peripheral vascular disease and accompanying refractory lower extremity wounds. Wounds have worsened in spite of aggressive care beginning in March 2016. Wounds now involve tendon structures in the feet. Patient might be able to benefit and achieve healing with hyperbaric oxygen. Otherwise she will likely need bilateral below the knee amputations. Prognosis greatly depends on success of managing these infections. While these infections continue, she remains at risk for sepsis. Based on the new vehicle sales consultant's notes, it appears unlikely regardless of treatment course that she will be ambulating independently in the future. Her success in any type of rehabilitation will also depend on her ability to clear cognitively and have adequate pain relief without accompanying oversedation. . Code Status: Full Code Plan ==CODE STATUS: Full code ==Decision making: Patient is currently incapacitated to make her own health care decisions. She is confused and it is unclear if/when she will regain capacity. While in capacitated, her husbandJohnis technically her health care decision-maker. I am told he has both financial and health care power of civil rights attorney but those documents are not on the chart. Children tell me that the is struggling in both these roles. He apparently is consulting both the patient's daughter and son who are heavily involved. == Goals of medical treatment: At this time goals were aggressive. There is no talk of transitioning to comfort measures only. Family feels the patient is not going to be able to endure this pain much longer and are trying to make decisions between hyperbaric oxygen therapy or perhaps bilateral [id number] amputations. == Confusion: Patient apparently has had some cognitive changes since around 05/13/16. Family reports these appear to be worse over the last few days. Urine is growing out E coli ESBL and UTI probably contributing to delirium. Hopefully appropriate antibiotics will help to clear this. We'll leave antibiotic choice up to the hospitalist team. == Lethargy: It has been hard to manage pain / anxiety without oversedating her. Currently on 0.5 mg q 8 hours of scheduled clonazepam. Would recommend using low dose neuroleptic until delirium is better controlled -- e.g. Quetiapine 25 mg q 12 hours. == Pain: Pain appears mostly secondary to ischemic pain and wound pain in the lower extremities. She may also have some lower extremity pain secondary to diabetic neuropathy. Patient is unable to quantify or qualify her pain adequately due to her cognitive challenges. Managing pain will remain quite difficult. Giving her amounts of opiate analgesics that appears to work on the pain also reportedly is enough that she becomes lethargic. She apparently had a negative reaction to fentanyl. She has a history of acute kidney injury so we may need to be careful of opiates requiring renal metabolism. She became too sedated on gabapentin. Methadone might normally be a good option for her but her heart failure and history of ventricular tachycardia makes one wary to use and opiate that might prolong QT interval. We are left with few choices. Probably hydromorphone remains the best option. I would probably recommend simplifying her regimen. I would use 2 mg of by mouth hydromorphone every 4 hours when necessary for pain/shortness of breath number 1 through 7. For more severe pain and for pre-medicating for dressing changes I would recommend the parenteral hydromorphone at 0.5- 0.75 mg every 3 hours when necessary. == Assisting the family with options: * Family's first preference is to have the patient stay in the hospital and receive her initial hyperbaric treatments here while they're trying to get her strong enough to return home. My understanding is that that option will not be possible for insurance reasons. * Looking at the level of the patient's discomfort and delirium over the last two days, it is hard to imagine a discharge home with home health and then the family being responsible to transport the patient for hyperbaric oxygen every weekday. There is just not enough help at home and we will probably need better control of pain/delirium before she can be managed there. I am not sure the daughter fully realizes how challenging this might be. == Wounds: The family has stated that the wounds began on the abdomen and buttock which make it less likely that these wounds began because of PVD. Also , vascular surgery feels that the wounds are out of proportion to the level of vascular disease. I see only one wound culture since the initial March admission. Given she is around animals all the time and looking at the antibiotic regimens she has been on, I wonder about the possibility of [place]. Dr. White is wondering about an underlying autoimmune disease. == Case discussed with Dr. Alejo. == If/when patient becomes cognitively clear, the patient's children would like her to complete a living will and to reconsider who she would want to choose for her health care surrogate. Until such time, the patient's remains the legal health care decision-maker. == Palliative care will continue to follow the patient to assist with symptom management and to further clarify goals of medical treatment as the clinical course evolves. . Time Spent Total Floor Time (mins): 40 (Total floor time includes chart review, patient exam, telephone conversation with Dr. White; floor conversation with Dr. Alejo.) Face to Face Time (mins): 10 >50% Counseling/Coord of Care: Yes Attestation To help prompt me to consider important information that might be impacting today's encounter and assessment, information from prior notes written by myself or my colleagues may have been "brought forward" into today's note. My signature on this note, however, is an attestation that I personally performed the exam, history, and/or decision-making noted today, and, unless otherwise indicated, the interactions with patient, family, and staff as well as the review of records all occurred today. I also attest that the listed assessment and stated plan reflect my best clinical judgment today based on the combination of historical information, prior notes, and today's exam/ interactions. When time spent is documented, it refers only to time spent today by the signer, or if indicated, combined time spent today by collaborating physician/nurse practitioner. . Alton Ohara MD Aug 12, 2016 11:50
--- NOTE | 2016-08-12 12:51 | HHI.PR ---
Subjective Remarks Follow up for lower ext gangrene, PVD, wound. Pt. seen today sleeping in bed. Easily arousable to tactile stimulation but goes back to sleeping. States "please leave me alone, let me be." As per RN, pt. was awake this am and was able to eat breakfast. She was given clonazepam at 5am today and was given her norco pain meds for c/o pain at around 10am. Patient went to sleep after and has been asleep. Noted to use abdominal muscles to breathe while sleeping, appears comfortable. Objective Vitals Vital Signs Date Time Temp Pulse Resp B/P Pulse Ox O2 Delivery O2 Flow Rate FiO2 08/12/16 12:00 97.1 68 18 139/64 97 08/12/16 08:20 Room Air 08/12/16 08:06 71 08/12/16 08:00 99.9 72 18 133/60 96 08/12/16 04:00 98.8 72 18 121/63 92 08/12/16 00:00 99.1 75 18 146/67 95 08/11/16 20:00 79 08/11/16 20:00 99.8 78 18 145/66 95 08/11/16 19:00 95 Room Air I/O 08/11/16 08/11/16 08/11/16 08/12/16 08/12/16 08/12/16 07:00 15:00 23:00 07:00 15:00 23:00 Intake Total 362 ml 240 ml 100 ml Balance 362 ml 240 ml 100 ml Intake Oral 360 ml 240 ml 100 ml IV Total 2 ml # Voids 2 4 1 1 # Bowel Movements 3 1 2 Result Diagram: 08/11/16 0559 08/11/16 0559 Imaging Last Impressions Upper Extremity Ultrasound 07/28/16 0000 Signed Impressions: Service Date/Time: Thursday, July 28, 2016 14:34 - CONCLUSION: No DVT is identified within the right upper extremity. Alfredo Eng MD Chest X-Ray 07/20/16 0000 Signed Impressions: Service Date/Time: Wednesday, July 20, 2016 12:38 - CONCLUSION: Mild left base consolidation developing. Alfredo Sneed MD Brain MRI 07/20/16 0000 Signed Impressions: Service Date/Time: Wednesday, July 20, 2016 09:15 - CONCLUSION: No acute intracranial abnormality. Moderately severe chronic white matter changes, nonspecific but most likely small vessel ischemia. Alfredo Sneed MD Head CT 07/19/16 0000 Signed Impressions: Service Date/Time: Tuesday, July 19, 2016 09:58 - CONCLUSION: No acute intracranial findings. João Otoole MD Foot X-Ray 07/16/16 0000 Signed Impressions: Service Date/Time: Saturday, July 16, 2016 17:34 - CONCLUSION: 1. Nonspecific soft tissue swelling. No acute bone destruction demonstrated. 2. Mild talonavicular and navicular/cuneiform degenerative changes. 3. Second through fifth hammertoe. 4. Moderate-sized heel spur. Alfredo Sneed MD Objective Remarks GENERAL: Well-nourished, well-developed patient. Not in Distress. SKIN: Warm and dry. BLE necrotic wounds, cassy wrap dsg in place. Necrotic left toes- 2nd and 3rd and great toe HEAD: Normocephalic. EYES: No scleral icterus. No injection or drainage. NECK: Supple, trachea midline. No JVD or lymphadenopathy. CARDIOVASCULAR: Regular rate and rhythm without murmurs, gallops, or rubs. RESPIRATORY: Breath sounds equal bilaterally. No accessory muscle use. GASTROINTESTINAL: Abdomen soft, non-tender, nondistended. Bowel sounds active 4. MUSCULOSKELETAL: Generalized edema +1. Unable to move bilateral lower extremity without assist. Able to wiggle toes. BACK: Nontender without obvious deformity. No CVA tenderness. EXTREMITIES: Multiple venous status ulcers nonhealing up to her knees, dsg in place CDI. NEURO: Asleep. Arousable to stimulation. Confuse. Intermittent crying. No meaningful conversation. Procedures 08/08/2016 PROCEDURE 1. Selective right lower extremity arteriogram. 2. Balloon angioplasty with a 4 mm x 2200 mm and then a 5 x 200 mm Medtronic angioplasty balloon of the right superficial femoral and proximal popliteal artery. 07/31/2016 Excision and debridement of both legs, extensive necrotic wounds approximately 30 x 25 cm area on each side, total 1000 to 1100 cm square, down to the subcutaneous tissue and tendon on the left side. A/P Problem List: (1) Cellulitis of left lower extremity ICD Code: L03.116 Status: Acute (2) Delirium due to another medical condition ICD Code: F05 Status: Acute Assessment and Plan Pt. is 61-year-old female, with multiple admissions, with history of cellulitis of legs, severe PVD, diabetes and cardiomyopathy EF of 30% was at the rehabilitation facility when she became more altered lethargic and hypoxic. Rapid response team was called and transferred patient to ICU. In the ICU patient remains confused and lethargic responsive to pain with a stable blood pressure and saturation of 100% on 40% face mask. Patient has improved and was transferred to regular medical/ surgical unit Chronic lower ext wound Peripheral vascular disease - Discussed with Vascular surgery. No further input from vascular surgery at this point. - Plastic surgery Dr. Pepe's plan for wound care/hyperbaric treatments.Input appreciated, halfway management of the leg wounds - to get good granulations and then skin graft. The tendon on the left leg may take a long time to get covered with granulations - also may be partly lost. May follow with plastics in outpatient. - Continue Byron, Dilaudid PRN for pain. - Gabapentin 200mg TID - neuropathic pain - Spoke with Dr. Ohara of palliative care. Pain management can be done using very low dose of methadone, risk increase QT interval. Consider ID consult for possible pasteurella infection, as pt. wounds have not improved and [place]. Initially, wound was considered coming from either a bug bite or irritation. - Will reconsult ID UTI - Microbiology growing ESBL, sensitive to macrobid and sulfa - Consult ID. Input appreciated. Anxiety - d/c Ativan and start Clonazepam 0.5mg Q8hrs PRN. Hold with increase sedation. Diabetes mellitus - Continue Levemir 5 units QHS and sliding scale insulin. Monitor for hypoglycemia. Hypothyroidism - continue levothyroxine 150 g daily. Hypertension - continue Valsartan 80mg QHS. Cardiomyopathy - Continue Carvedilol 25mg BID, Valsartan, Isosorbide. Hx of seizure activity - continue Valproic acid 250mg Q12hrs. Full code. Heparin SQ. Discussed with patient, nursing Written by Ella Berger, acting as scribe for Dr. Alejo on 08/12/16 at 13:38. All or portions of this note were transcribed by GILLES Ornelas. I, Dr. Gary Alejo personally performed the history, physical exam, and medical decision making; and confirmed the accuracy of the information in the transcribed note. Authenticated by Dr. Gary Alejo on 08/12/16 at 15:37. Discharge Planning Placement needed for wound care. If family member is able to take care of patient at home, will consider home care with wound care/ hyperbaric treatment. Ella Arzola Aug 12, 2016 12:51 pm Devi Alejo DO Aug 12, 2016 3:38 pm work-up- continue medical management. - Coreg - Isosorbide - Monitor BP Trend. Occasional elevated BP possibly secondary to anxiety/ confusion. - Spoke with Dr. Bernardo- Cardiology, stable from their standpoint. Hypothyroidism - TSH 9.150 - Synthroid 150mcg daily, check freeT4, may also be related to recent acute illness. Recheck in 4 weeks - August 05 Cellulitis, left lower extremity with gangrenous second and third toe. Continue dressing changes per Dr. Vlades at the podiatry recommendation. - Reconsulted vascular surgeon Dr Taylor ( known to patient) on 07/20. - Seen by Dr Taylor vas surgery; Mild PAD and chronic wounds, s/p L SFA ENVIRONMENTAL MONITORING TECHNICIAN and recanalization with good runoff. Based on radiographic images post- intervention, she has adequate blood flow to heal wounds - follow-up by Dr Taylor. - finished the course of Cefepime- ID has signed off. Hyponatremia - resolved. Hypokalemia - replacements done. DVT GI prophylaxis - Heparin and Pepcid Full code Discussed with patient, nursing Written by Ella Berger, acting as scribe for Dr. Alejo on 08/12/16 at 13:38. Discharge Planning Not ready for discharge. Discussed with case management future placement. Ella Arzola Aug 12, 2016 12:51
[2016-08-12] MEDS ORDERED: GABAPENTIN 100 MG CAP PO SCH (13:00)
[2016-08-12] MEDS: VALSARTAN 80 MG TAB PO SCH (20:34)
[2016-08-12] MEDS: MELATONIN 5 MG TAB PO SCH (20:34)
[2016-08-12] MEDS: INSULIN DETEMIR 100 UNITS/ML VIAL SQ SCH (20:36)
[2016-08-12] MEDS: METHADONE HCL 10 MG TAB PO SCH (21:47)
[2016-08-12] MEDS: DOXYCYCLINE HYCLATE 100 MG TAB PO SCH (23:18)
[2016-08-13] MEDS: CHLORHEXIDINE GLUCONATE 2 % 1 PACK (2 CLOTHS) TOP SCH (04:00)
[2016-08-13 04:55] VITALS: BP 102/52; PULSE 62; RESP 16; TEMP 98.3; O2SAT 92
[2016-08-13] MEDS: ISOSORBIDE DINITRATE 5 MG TAB PO SCH ×3 (05:52→20:33)
[2016-08-13] MEDS: LEVOTHYROXINE SODIUM 150 MCG TAB PO SCH (05:52)
[2016-08-13] MEDS: HEPARIN SODIUM - SQ 10,000 UNITS/ML VIAL SQ SCH ×3 (05:52→20:33)
[2016-08-13] MEDS: POTASSIUM CHLORIDE 10 MEQ CONTROLLED RELEASE TAB PO SCH ×3 (05:52→20:33)
[2016-08-13] MEDS: HYDROmorphone HCL PF 1 MG/ML VIAL IV PUSH PRN (05:53)
[2016-08-13] MEDS: INSULIN ASPART SUPPLEMENTAL SCALE SQ SCH ×4 (07:00→20:37)
[2016-08-13 08:00] VITALS: BP 136/63; PULSE 70; RESP 20; TEMP 98.3; O2SAT 96
[2016-08-13] MEDS: SODIUM CHLORIDE 0.9% FLUSH 5 ML FLUSH IV FLUSH SCH ×2 (08:54→20:38)
[2016-08-13] MEDS: CARVEDILOL 12.5 MG TAB PO SCH ×2 (08:55→20:32)
[2016-08-13] MEDS: VALPROIC ACID 250 MG CAP PO SCH ×2 (08:55→20:33)
[2016-08-13] MEDS: LIOTHYRONINE SODIUM 5 MCG TAB PO SCH (08:55)
[2016-08-13] MEDS: METHADONE HCL 10 MG TAB PO SCH ×2 (08:56→20:32)
[2016-08-13] MEDS: LACTOBACILLUS ACIDOPHILUS TAB PO SCH ×3 (08:56→18:00)
[2016-08-13] MEDS: ASPIRIN EC 325 MG TABEC PO SCH (08:56)
[2016-08-13] MEDS: DOXYCYCLINE HYCLATE 100 MG TAB PO SCH ×2 (08:57→20:32)
[2016-08-13] MEDS ORDERED: QUEtiapine FUMARATE 25 MG TAB PO ONE (10:45)
--- NOTE | 2016-08-13 10:45 | HHI.HCPN ---
Reason for visit a. To assist with evaluation and management of symptoms including: Lower extremity pain; confusion b. To assist medical decision maker(s) with: better understanding of current medical conditions; weighing benefits/burdens of medical treatment options; making medical treatment decisions. . Subjective/Interval History Ms Lemos is hollering and moaning loudly at time of my visit. When I enter and say hello, she is able to smile weakly and say , "How are you?." I ask her if her pain is any better and she says, "yes." I tell her I heard her hollering and asked her why. She says, "They won't help me. They won't help me. I just want to get out of this bed. I am done with this show." I ask her where she wants to go and she says, "I don't know , I don't know." She is confused. Between my questions, she seems to drift off. She is easily distracted. Between thelma and delia, I tell her I met her last night and she is able to say what I nice man she is. I tell her I have spoken with both of her children and that she sure seemed to have done a great job raising them . She smiles and says "thank you." As I am leaving, she says , "I'm cold , I'm cold, I'm so cold." I immediately go to help get her covered and she says, "No thank you I am fine." We are trying to get better control over pain and delirium. Low dose methadone was started after discussing risks/benefits with and son. We stopped the PRN hydrocodone. Scheduled clonazepam has been stopped. We stopped famotidine (which can cause agitation). Since the methadone was started and the hydrocodone was stopped , there was only one prn dose of IV hydromorphone (at 0533). As her UTI may be contributing to her delirium, doxycycline was started. Afebrile. Other VS stable. No new CBC /Chem/ imaging. Urine Cx --> E coli ESBL Voiding. Bowels moving. . Family/friend interactions Spoke with son via phone and in person yesterday evening. See addenda to 08/12/16 note. . Advance Directives Living Will: Never completed Health Care Surrogate: Never completed Durable Power of Sugar Trucker: Completed, but not made available Advance Directive Specifics Date completed: Family reports there is a completed POA document -- not available to us at this time. Unknown date. . Health Care Surrogate(s): is reportedly the health care POA. Even if there is no documented designation of health care POA or surrogate, he would serve as proxy. Spoke with in person on 08/12/16. He tells me how he knows nothing about health care and is fine if patient's daughter Blanche serves as proxy. If does not want to serve, it would fall to both son and daughter. Will speak to both of them. Son may want to yield as he travels so much. . Documented care wishes: No documented wishes of patient's expressed health care goals/preferences. . Objective Vital Signs Date Time Temp Pulse Resp B/P Pulse Ox O2 Delivery O2 Flow Rate FiO2 08/13/16 04:55 98.3 62 16 102/52 92 08/12/16 23:20 99.2 75 16 149/65 96 08/12/16 20:25 98.0 74 16 132/63 95 08/12/16 20:00 73 08/12/16 20:00 Room Air 08/12/16 12:00 97.1 68 18 139/64 97 Intake & Output 08/13/16 08/13/16 07:00 19:00 Intake Total 200 ml Balance 200 ml Intake Oral 200 ml # Voids 5 # Bowel Movements 4 . Physical Exam CONSTITUTIONAL/GENERAL: This is an adequately nourished patient. Frequently cries out and hollers but easily distracted. Confused. Alternating agitation and lethargy. TUBES/LINES/DRAINS: Peripheral IV; SKIN: No jaundice. Ecchymoses on upper extremities. I did not remove the patient's lower extremity dressings which are wet. Dry, gangrenous changes are noted on the digits of both feet. Skin temperature appropriate. Not diaphoretic. There is a faint urticarial type rash on the left side of the face and neck. HEAD: Atraumatic. Normocephalic. EYES: Pupils equal and round. Extraocular motions intact. No scleral icterus. No injection or drainage. Fundi not examined. ENT: Hearing grossly normal. Nose without bleeding or purulent drainage. NECK: Trachea midline. Supple. CARDIOVASCULAR: Regular rate and rhythm without murmurs, gallops, or rubs. No JVD. RESPIRATORY/CHEST: Symmetric, unlabored respirations. Clear to auscultation. Breath sounds equal bilaterally. No wheezes, rales, or rhonchi. GASTROINTESTINAL: Abdomen soft, non-tender, nondistended. No hepato-splenomegaly , or palpable masses. No guarding. Bowel sounds present. GENITOURINARY: Without palpable bladder distension. MUSCULOSKELETAL: Both lower extremities are edematous. Dressing was not removed from her wounds. Dry gangrenous changes to the digits of both feet. LYMPHATICS: Not examined NEUROLOGICAL: Moves all extremities. Confused. Agitation alternating with lethargy. Can follow simple commands. PSYCHIATRIC: Very confused. No obvious hallucinations. . Diagnostic Tests Laboratory Laboratory Tests Test 08/10/16 08/11/16 14:30 05:59 Urine Color YELLOW (YELLW/STRAW) Urine Turbidity HAZY (CLEAR) Urine pH 5.5 (5.0-8.5) Urine Specific [place] 1.025 (1.002-1.035) Urine Protein 30 mg/dL (NEG-TRACE) Urine Glucose (UA) NEG mg/dL (NEG) Urine Ketones 10 mg/dL (NEG) Urine Occult Blood TRACE (NEG) Urine Nitrite NEG (NEG) Urine Bilirubin NEG (NEG) Urine Urobilinogen LESS THAN 2.0 MG/DL (LESS THAN 2.0) Urine Leukocyte Esterase LARGE (NEG) Urine RBC 32 /hpf (0-3) Urine WBC 100 /hpf (0-5) Urine Squamous Epithelial 22 /hpf (0-5) Cells Urine Bacteria OCC /hpf (NONE) Urine Mucus MOD /lpf (OCC) Urine Yeast (Budding) MANY (NONE) Microscopic Urinalysis Comment CULTURE INDICATED White Blood Count 10.5 TH/MM3 (4.0-11.0) Red Blood Count 3.44 MIL/MM3 (4.00-5.30) Hemoglobin 8.1 GM/DL (11.6-15.3) Hematocrit 26.1 % (35.0-46.0) Mean Corpuscular Volume 76.1 FL (80.0-100.0) Mean Corpuscular Hemoglobin 23.5 PG (27.0-34.0) Mean Corpuscular Hemoglobin 30.8 % Concent (32.0-36.0) Red Cell Distribution Width 18.6 % (11.6-17.2) Platelet Count 243 TH/MM3 (150-450) Mean Platelet Volume 7.2 FL (7.0-11.0) Neutrophils (%) (Auto) 78.8 % (16.0-70.0) Lymphocytes (%) (Auto) 13.3 % (9.0-44.0) Monocytes (%) (Auto) 5.9 % (0.0-8.0) Eosinophils (%) (Auto) 1.8 % (0.0-4.0) Basophils (%) (Auto) 0.2 % (0.0-2.0) Neutrophils # (Auto) 8.3 TH/MM3 (1.8-7.7) Lymphocytes # (Auto) 1.4 TH/MM3 (1.0-4.8) Monocytes # (Auto) 0.6 TH/MM3 (0-0.9) Eosinophils # (Auto) 0.2 TH/MM3 (0-0.4) Basophils # (Auto) 0.0 TH/MM3 (0-0.2) CBC Comment AUTO DIFF Differential Total Cells 100 Counted Neutrophils % (Manual) 70 % (16-70) Band Neutrophils % 17 % (0-6) Lymphocytes % 10 % (9-44) Monocytes % 3 % (0-8) Neutrophils # (Manual) 9.1 TH/MM3 (1.8-7.7) Differential Comment FINAL DIFF MANUAL Platelet Estimate NORMAL (NORMAL) Platelet Morphology Comment NORMAL (NORMAL) Sodium Level 144 MEQ/L (136-145) Potassium Level 3.3 MEQ/L (3.5-5.1) Chloride Level 106 MEQ/L (98-107) Carbon Dioxide Level 30.2 MEQ/L (21.0-32.0) Anion Gap 8 MEQ/L (5-15) Blood Urea Nitrogen 11 MG/DL (7-18) Creatinine 0.53 MG/DL (0.50-1.00) Estimat Glomerular Filtration 117 ML/MIN Rate (>89) Random Glucose 84 MG/DL (74-106) Calcium Level 7.5 MG/DL (8.5-10.1) . Result Diagram: 08/11/16 0559 08/11/16 0559 Microbiology Microbiology Date/Time Procedure Status Source Growth 08/10/16 14:30 Urine Culture - Final Complete Urine Clean Catch Escherichia Coli Esbl Positive Imaging Last Impressions Upper Extremity Ultrasound 07/28/16 0000 Signed Impressions: Service Date/Time: Thursday, July 28, 2016 14:34 - CONCLUSION: No DVT is identified within the right upper extremity. Alfredo Eng MD Chest X-Ray 07/20/16 0000 Signed Impressions: Service Date/Time: Wednesday, July 20, 2016 12:38 - CONCLUSION: Mild left base consolidation developing. Alfredo Sneed MD Brain MRI 07/20/16 0000 Signed Impressions: Service Date/Time: Wednesday, July 20, 2016 09:15 - CONCLUSION: No acute intracranial abnormality. Moderately severe chronic white matter changes, nonspecific but most likely small vessel ischemia. Alfredo Sneed MD Head CT 07/19/16 0000 Signed Impressions: Service Date/Time: Tuesday, July 19, 2016 09:58 - CONCLUSION: No acute intracranial findings. João Otoole MD Foot X-Ray 07/16/16 0000 Signed Impressions: Service Date/Time: Saturday, July 16, 2016 17:34 - CONCLUSION: 1. Nonspecific soft tissue swelling. No acute bone destruction demonstrated. 2. Mild talonavicular and navicular/cuneiform degenerative changes. 3. Second through fifth hammertoe. 4. Moderate-sized heel spur. Alfredo nSeed MD . Procedures 07/31/2016 Excision and debridement of both legs, extensive necrotic wounds approximately 30 x 25 cm area on each side, total 1000 to 1100 cm square, down to the subcutaneous tissue and tendon on the left side. 08/08/2016 1. Selective right lower extremity arteriogram. 2. Balloon angioplasty with a 4 mm x 2200 mm and then a 5 x 200 mm Medtronic angioplasty balloon of the right superficial femoral and proximal popliteal artery. Note that patient had these additional procedures on prior admissions: * Bilateral lower extremity wound debridements 05/15/16 * Bilateral LE Debridements and Left SFA angioplasty on 06/23/16 . Assessment and Plan Disease Oriented Problem List: (1) PVD (peripheral vascular disease) (2) DM (diabetes mellitus), type 2, uncontrolled, periph vascular complic (3) CHF (congestive heart failure) (4) Hypertension (5) Cellulitis of left lower extremity (6) Delirium due to another medical condition (7) VT (ventricular tachycardia) (8) Ulcer of heel and midfoot (9) Hypothyroidism (10) Anemia (11) Urinary tract infection Comment: Cx of 08/11/16 growing out E coli ESBL . Symptom Scale: (1) Pain 0-10 Scale: Unable to quantify Comment: Patient unable to quantify or qualify her own pain. There is frequent moaning and calling out suggesting the pain is quite severe. Pain most likely due to ischemia and the wounds themselves. May be a component of neuropathic pain from the diabetes. . (2) Confusion 0-10 Scale: Unable to quantify Comment: Confusion is probably multifactorial. Patient apparently was cognitively sharp up until about 05/13/2016. Has had intermittent confusion since including hallucinations and disorientation. Now with known UTI which may be contributing. . Pertinent Non-Medical Issues Psychosocial: Psychosocial support from and daughter (lives locally). Son in [place] is very involved. Spiritual: Christianity. Had been a member of [employer]. Legal: Family reports there is a completed POA for finance and health care. Ethical issues impacting care: Patient is currently incapacitated due to delirium. . Important Contacts * Alfredo Lemos (spouse) [phone] * Kalpesh (son) [phone] * Blanche (daughter) [phone] . Prognosis The patient has severe peripheral vascular disease and accompanying refractory lower extremity wounds. Wounds have worsened in spite of aggressive care beginning in March 2016. She has undergone re-vascularization procedures on both lower extremities since May. Wounds now involve tendon structures in the feet. Patient might be able to benefit and achieve healing with hyperbaric oxygen. Otherwise she will likely need bilateral below the knee amputations. Prognosis greatly depends on success of managing these infections/wounds. While these infections/wounds continue, she remains at risk for sepsis. Based on the [facility] consultant's notes, it appears unlikely regardless of treatment course that she will be ambulating independently in the future. Her success in any type of rehabilitation will also depend on her ability to clear cognitively and have adequate pain relief without accompanying oversedation. . Code Status: Full Code Plan ==CODE STATUS: Full code ==Decision making: Patient is currently incapacitated to make her own health care decisions. She is confused and it is unclear if/when she will regain capacity. While in capacitated, her husbandJohnis technically her health care decision-maker. Dr Ohara spoke with -- Alfredo -- on 08/12/16. Alfredo said, "I know nothing about health care and medicine." He related his willingness to cede health care decision making to the patient's daugther -- Blanche. Technically, if Alfredo does not want to be proxy, it would pass to both children. I will call son--Kalepsh-- and see if he wants to yield to Blanche since Kalpesh is out of the country so much. == Goals of medical treatment: At this time goals are aggressive. There is no talk of transitioning to comfort measures only. Family feels the patient is not going to be able to endure this pain much longer and are trying to make decisions between hyperbaric oxygen therapy or perhaps bilateral [id number] amputations. For hyperbaric 02 treatments she would need to be home and to be able to tolerate those treatments both of which will require better pain control and delirium control. == Confusion: Patient apparently has had some cognitive changes since around 05/13/16. Family reports these appear to be worse over the last days. Urine is growing out E coli ESBL and UTI probably contributing to delirium. Patient has been started on doxycline. As patient is clearly suffering with her delirium, will attempt to treat. Patient has shown great sensitivity to meds. Will try quetiapine at 12.5 mg po q 12 hours (this is also a QT prolonger but dose is very low). == Lethargy: It has been hard to manage pain / anxiety without oversedating her. Scheduled clonazepam has been DCd which will hopefully help. == Pain: Pain appears mostly secondary to ischemic pain and wound pain in the lower extremities. She may also have some lower extremity pain secondary to diabetic neuropathy. Patient is unable to quantify or qualify her pain adequately due to her cognitive challenges. Managing pain will remain quite difficult. Giving her amounts of opiate analgesics that appears to work on the pain also reportedly is enough that she becomes lethargic. She apparently had a negative reaction to fentanyl. She has a history of acute kidney injury so we may need to be careful of opiates requiring renal metabolism. She became too sedated on higher dose gabapentin. Methadone has been started to see if she will benefit from NMDA receptor blockade but with her heart failure and history of ventricular tachycardia we must avoid other QT prolongers ( famotidine and ondansetron have been DCd). Hydrocodone has been stopped. Will leave prn hydromorphone in place for breakthrough. We will probably need to titrate the methadone every 2-3 days. When patient is screaming, it is understandably difficult for nursing staff to differentiate between pain and delirum. ==Rash: New faint urticarial rash seen on left side of neck and face 08/13/16. New meds include methadone and doxycycline. The latter would be a far more likely culprit. If rash progresses and we have to stop doxycyline might recommend Augmentin. == Wounds: The family has stated that the wounds began on the abdomen and buttock which make it less likely that these wounds began because of PVD. Also , vascular surgery feels that the wounds are out of proportion to the level of vascular disease. I see only one wound culture since the initial March admission. Given she is around animals all the time and looking at the antibiotic regimens she has been on, I wonder about the possibility of Pasturella or even some type of mycobacteria.. Dr. White is wondering about an underlying autoimmune disease to explain wounds that appear out of proportion to her vascular disease. Family is confused regarding optimal wound care. Dr. Pepe has recommended at least daily scrubbing (for debridement) with thoughts that the patient would be eligible for grafting within about [address] Aquino has recommended the dressing changes. == Disposition: Family would like to try further wound care and hyperbaric 02 before resigning to bilateral amputation. In order to get hyperbaric 02, the patient has to go home and be able to tolerate the enclosure in the hyperbaric chamber. The goals probably cannot be achieved without better control over pain and delirium. == Case discussed on floor with Dr. Alejo. == Palliative care will continue to follow the patient to assist with symptom management and to further clarify goals of medical treatment as the clinical course evolves. . Alton Ohara MD Aug 13, 2016 10:45
[2016-08-13] MEDS ORDERED: GABAPENTIN 300 MG CAP PO ONE (11:00)
--- NOTE | 2016-08-13 11:05 | HHI.PR ---
Subjective Remarks Follow up for lower ext gangrene, PVD, wound, severe neuropathic pain, intolerant to most opioids. Patient seen today. Screaming and tearful, stating she is in so "much pain all over, especially legs." Unable to describe pain but noted on exam that she would intermittently screaming and be calm, possible severe neuropathic pain that is episodic. Objective Vitals Vital Signs Date Time Temp Pulse Resp B/P Pulse Ox O2 Delivery O2 Flow Rate FiO2 08/13/16 10:00 18 08/13/16 08:00 98.3 70 20 136/63 96 08/13/16 04:55 98.3 62 16 102/52 92 08/12/16 23:20 99.2 75 16 149/65 96 08/12/16 20:25 98.0 74 16 132/63 95 08/12/16 20:00 73 08/12/16 20:00 Room Air 08/12/16 12:00 97.1 68 18 139/64 97 I/O 08/12/16 08/12/16 08/12/16 08/13/16 08/13/16 08/13/16 07:00 15:00 23:00 07:00 15:00 23:00 Intake Total 100 ml 122 ml 0 ml 200 ml Balance 100 ml 122 ml 0 ml 200 ml Intake Oral 100 ml 120 ml 0 ml 200 ml IV Total 2 ml # Voids 1 1 2 3 # Bowel Movements 2 0 1 3 Result Diagram: 08/11/16 0559 08/11/16 0559 Objective Remarks GENERAL: Well-nourished, well-developed patient. Not in Distress. SKIN: Warm and dry. BLE necrotic wounds, cassy wrap dsg in place. Necrotic left toes- 2nd and 3rd and great toe HEAD: Normocephalic. EYES: No scleral icterus. No injection or drainage. NECK: Supple, trachea midline. No JVD or lymphadenopathy. CARDIOVASCULAR: Regular rate and rhythm without murmurs, gallops, or rubs. RESPIRATORY: Breath sounds equal bilaterally. No accessory muscle use. GASTROINTESTINAL: Abdomen soft, non-tender, nondistended. Bowel sounds active 4. MUSCULOSKELETAL: Generalized edema +1. Unable to move bilateral lower extremity without assist. Able to wiggle toes. BACK: Nontender without obvious deformity. No CVA tenderness. EXTREMITIES: Multiple venous status ulcers nonhealing up to her knees, dsg in place CDI. NEURO: Asleep. Arousable to stimulation. Confuse. Intermittent crying. No meaningful conversation. Procedures 08/08/2016 PROCEDURE 1. Selective right lower extremity arteriogram. 2. Balloon angioplasty with a 4 mm x 2200 mm and then a 5 x 200 mm Medtronic angioplasty balloon of the right superficial femoral and proximal popliteal artery. 07/31/2016 Excision and debridement of both legs, extensive necrotic wounds approximately 30 x 25 cm area on each side, total 1000 to 1100 cm square, down to the subcutaneous tissue and tendon on the left side. A/P Problem List: (1) Cellulitis of left lower extremity ICD Code: L03.116 Status: Acute (2) Delirium due to another medical condition ICD Code: F05 Status: Acute (3) Neuropathic pain ICD Code: M79.2 Status: Acute Assessment and Plan Pt. is 61-year-old female, with multiple admissions, with history of cellulitis of legs, severe PVD, diabetes and cardiomyopathy EF of 30% was at the rehabilitation facility when she became more altered lethargic and hypoxic. Rapid response team was called and transferred patient to ICU. In the ICU patient remains confused and lethargic responsive to pain with a stable blood pressure and saturation of 100% on 40% face mask. Patient has improved and was transferred to regular medical/ surgical unit Chronic lower ext wound Peripheral vascular disease Severe neuropathic pain - Discussed with Vascular surgery. No further input from vascular surgery at this point. - Plastic surgery Dr. Pepe's plan for wound care/hyperbaric treatments.Input appreciated, FDC management of the leg wounds - to get good granulations and then skin graft. The tendon on the left leg may take a long time to get covered with granulations - also may be partly lost. May follow with plastics in outpatient. - Continue Bern, Dilaudid PRN for pain. - Gabapentin 200mg TID - neuropathic pain - Spoke with Dr. Ohara of palliative care. Pain management can be done using very low dose of methadone, risk increase QT interval. - Patient started on low-dose methadone. Will monitor efficacy. UTI - Microbiology growing ESBL, sensitive to macrobid and sulfa - Doxycycline started Anxiety - d/c Ativan and start Clonazepam 0.5mg Q8hrs PRN. Hold with increase sedation. Diabetes mellitus - Continue Levemir 5 units QHS and sliding scale insulin. Monitor for hypoglycemia. Hypothyroidism - continue levothyroxine 150 g daily. Hypertension - continue Valsartan 80mg QHS. Cardiomyopathy - Continue Carvedilol 25mg BID, Valsartan, Isosorbide. Hx of seizure activity - continue Valproic acid 250mg Q12hrs. Full code. Heparin SQ. Discussed with patient, nursing Written by Ella Berger, acting as scribe for Dr. Alejo on 08/13/16 at 13:27. All or portions of this note were transcribed by GILLES Ornelas. I, Dr. Gary Alejo personally performed the history, physical exam, and medical decision making; and confirmed the accuracy of the information in the transcribed note. Authenticated by Dr. Gary Alejo on 08/13/16 at 13:41. Discharge Planning Placement needed for wound care. If family member is able to take care of patient at home, will consider home care with wound care/ hyperbaric treatment. Ella Arzola Aug 13, 2016 11:05 am Devi Alejo DO Aug 13, 2016 1:41 pm
[2016-08-13 12:00] VITALS: BP 120/51; PULSE 72; RESP 22; TEMP 98.1; O2SAT 98
[2016-08-13 16:00] VITALS: BP 137/63; PULSE 80; RESP 20; TEMP 101.6; O2SAT 93
[2016-08-13 20:00] VITALS: BP 117/56; PULSE 81; RESP 18; TEMP 98.8; O2SAT 94
[2016-08-13] MEDS: VALSARTAN 80 MG TAB PO SCH (20:32)
[2016-08-13] MEDS: MELATONIN 5 MG TAB PO SCH (20:32)
[2016-08-13] MEDS: QUEtiapine FUMARATE 25 MG TAB PO SCH (20:32)
[2016-08-13] MEDS: INSULIN DETEMIR 100 UNITS/ML VIAL SQ SCH (20:37)
[2016-08-14] VITALS: BP 110/53; PULSE 73; RESP 18; TEMP 99; O2SAT 93
[2016-08-14 04:00] VITALS: BP 107/52; PULSE 75; RESP 18; TEMP 98.6; O2SAT 92
[2016-08-14] MEDS: CHLORHEXIDINE GLUCONATE 2 % 1 PACK (2 CLOTHS) TOP SCH (04:00)
[2016-08-14] MEDS: HEPARIN SODIUM - SQ 10,000 UNITS/ML VIAL SQ SCH ×3 (05:49→21:31)
[2016-08-14] MEDS: ISOSORBIDE DINITRATE 5 MG TAB PO SCH ×3 (05:49→21:29)
[2016-08-14] MEDS: INSULIN ASPART SUPPLEMENTAL SCALE SQ SCH ×4 (05:49→21:00)
[2016-08-14] MEDS: POTASSIUM CHLORIDE 10 MEQ CONTROLLED RELEASE TAB PO SCH ×3 (05:49→21:29)
[2016-08-14] MEDS: LEVOTHYROXINE SODIUM 150 MCG TAB PO SCH (05:49)
[2016-08-14 08:00] VITALS: BP 127/60; PULSE 75; RESP 18; TEMP 99.8; O2SAT 93
[2016-08-14] MEDS: VALPROIC ACID 250 MG CAP PO SCH ×2 (09:00→21:30)
[2016-08-14] MEDS: QUEtiapine FUMARATE 25 MG TAB PO SCH ×2 (09:00→21:29)
[2016-08-14] MEDS: METHADONE HCL 10 MG TAB PO SCH ×2 (09:00→21:29)
[2016-08-14] MEDS: ASPIRIN EC 325 MG TABEC PO SCH (09:00)
[2016-08-14] MEDS: LACTOBACILLUS ACIDOPHILUS TAB PO SCH ×3 (09:00→17:12)
[2016-08-14] MEDS: SODIUM CHLORIDE 0.9% FLUSH 5 ML FLUSH IV FLUSH SCH ×2 (09:00→21:00)
[2016-08-14] MEDS: LIOTHYRONINE SODIUM 5 MCG TAB PO SCH (09:00)
[2016-08-14] MEDS: CARVEDILOL 12.5 MG TAB PO SCH ×2 (09:00→21:29)
[2016-08-14] MEDS: DOXYCYCLINE HYCLATE 100 MG TAB PO SCH ×2 (09:00→21:29)
[2016-08-14 12:00] VITALS: BP 137/63; PULSE 74; RESP 18; TEMP 98; O2SAT 91
--- NOTE | 2016-08-14 12:38 | HHI.HCPN ---
Reason for visit a. To assist with evaluation and management of symptoms including: Lower extremity pain; confusion; lethargy b. To assist medical decision maker(s) with: better understanding of current medical conditions; weighing benefits/burdens of medical treatment options; making medical treatment decisions. . Subjective/Interval History Patient has been lethargic much of the AM. She did not eat any breakfast. She awakens with loud voice and smiles. I ask about pain and she is able to tell me she feels better. However, she quickly drifts back to sleep when not stimulated. Her primary nurse reports that the quetiapine appeared very effective at calming her down, stopping the screaming, and allowing her to sleep yesterday. She remained quite sleepy but arousable. She wonders if we can use even a smaller dose. Cause of excess lethargy might be due to other meds as well -- she was started on low dose methadone; given a single dose of 300 mg gabapentin; and also received a dose of iv hydromorphone prior to dressing change this AM. Patient denies SOB. She is unable to tell me anything more. Tmax 101.6 at 1600 yesterday. Other VSS. She refuses 02. No new lab/imaging. Voiding. Bowels moving. . Family/friend interactions No family/friends at bedside. . Advance Directives Living Will: Never completed Health Care Surrogate: Never completed Durable Power of Network Coordinator: Completed, but not made available Advance Directive Specifics Date completed: Family reports there is a completed POA document -- not available to us at this time. Unknown date. . Health Care Surrogate(s): is reportedly the health care POA. Even if there is no documented designation of health care POA or surrogate, he would serve as proxy. Spoke with in person on 08/12/16. He tells me how he knows nothing about health care and is fine if patient's daughter Blanche serves as proxy. If does not want to serve, it would fall to both son and daughter. Will speak to both of them. Son may want to yield as he travels so much. . Documented care wishes: No documented wishes of patient's expressed health care goals/preferences. . Objective Vital Signs Date Time Temp Pulse Resp B/P Pulse Ox O2 Delivery O2 Flow Rate FiO2 08/14/16 08:00 96 Nasal Cannula 2.00 3/23/17 08:00 99.8 75 18 127/60 93 08/14/16 04:00 98.6 75 18 107/52 92 08/14/16 00:00 99.0 73 18 110/53 93 08/13/16 20:00 98.8 81 18 117/56 94 08/13/16 20:00 93 Room Air 08/13/16 20:00 81 08/13/16 16:00 101.6 80 20 137/63 93 Intake & Output 08/14/16 08/14/16 07:00 19:00 Intake Total 240 ml Balance 240 ml Intake Oral 240 ml # Voids 2 # Bowel Movements 2 . Physical Exam CONSTITUTIONAL/GENERAL: This is an adequately nourished patient. Lethargic at time of my visit. Arouses to loud voice. Able to answer some simple questions but quickly drifts to sleep. No distress. TUBES/LINES/DRAINS: Peripheral IV; (refusing 02) SKIN: No jaundice. Ecchymoses on upper extremities. I did not remove the patient's lower extremity dressings which are wet. Dry, gangrenous changes are noted on the digits of both feet. Skin temperature appropriate. Not diaphoretic. There is a faint urticarial type rash on the left side of the face and neck which has improved since 08/13. HEAD: Atraumatic. Normocephalic. EYES: Pupils equal and round. Extraocular motions intact. No scleral icterus. No injection or drainage. Fundi not examined. ENT: Hearing grossly normal. Nose without bleeding or purulent drainage. NECK: Trachea midline. Supple. CARDIOVASCULAR: Regular rate and rhythm without gallops, or rubs. 2/6 systolic murmur heard. No JVD. RESPIRATORY/CHEST: Symmetric, unlabored respirations. Clear to auscultation. Breath sounds equal bilaterally. No wheezes, rales, or rhonchi. GASTROINTESTINAL: Abdomen soft, non-tender, nondistended. No hepato-splenomegaly , or palpable masses. No guarding. Bowel sounds present. GENITOURINARY: Without palpable bladder distension. MUSCULOSKELETAL: Both lower extremities are edematous. Dressing was not removed from her wounds. Dry gangrenous changes to the digits of both feet. LYMPHATICS: Not examined NEUROLOGICAL: Moves all extremities. Lethargic. Awakens to loud voice but quickly drifts back to sleep PSYCHIATRIC: Unable to assess due to level of lethargy. . Diagnostic Tests Laboratory Laboratory Tests Test 08/10/16 08/11/16 14:30 05:59 Urine Color YELLOW Urine Turbidity HAZY Urine pH 5.5 Urine Specific Tiline 1.025 Urine Protein 30 mg/dL Urine Glucose (UA) NEG mg/dL Urine Ketones 10 mg/dL Urine Occult Blood TRACE Urine Nitrite NEG Urine Bilirubin NEG Urine Urobilinogen LESS THAN 2.0 MG/DL Urine Leukocyte Esterase LARGE Urine RBC 32 /hpf Urine WBC 100 /hpf Urine Squamous Epithelial 22 /hpf Cells Urine Bacteria OCC /hpf Urine Mucus MOD /lpf Urine Yeast (Budding) MANY Microscopic Urinalysis Comment CULTURE INDICATED White Blood Count 10.5 TH/MM3 Red Blood Count 3.44 MIL/MM3 Hemoglobin 8.1 GM/DL Hematocrit 26.1 % Mean Corpuscular Volume 76.1 FL Mean Corpuscular Hemoglobin 23.5 PG Mean Corpuscular Hemoglobin 30.8 % Concent Red Cell Distribution Width 18.6 % Platelet Count 243 TH/MM3 Mean Platelet Volume 7.2 FL Neutrophils (%) (Auto) 78.8 % Lymphocytes (%) (Auto) 13.3 % Monocytes (%) (Auto) 5.9 % Eosinophils (%) (Auto) 1.8 % Basophils (%) (Auto) 0.2 % Neutrophils # (Auto) 8.3 TH/MM3 Lymphocytes # (Auto) 1.4 TH/MM3 Monocytes # (Auto) 0.6 TH/MM3 Eosinophils # (Auto) 0.2 TH/MM3 Basophils # (Auto) 0.0 TH/MM3 CBC Comment AUTO DIFF Differential Total Cells 100 Counted Neutrophils % (Manual) 70 % Band Neutrophils % 17 % Lymphocytes % 10 % Monocytes % 3 % Neutrophils # (Manual) 9.1 TH/MM3 Differential Comment FINAL DIFF MANUAL Platelet Estimate NORMAL Platelet Morphology Comment NORMAL Sodium Level 144 MEQ/L Potassium Level 3.3 MEQ/L Chloride Level 106 MEQ/L Carbon Dioxide Level 30.2 MEQ/L Anion Gap 8 MEQ/L Blood Urea Nitrogen 11 MG/DL Creatinine 0.53 MG/DL Estimat Glomerular Filtration 117 ML/MIN Rate Random Glucose 84 MG/DL Calcium Level 7.5 MG/DL . Result Diagram: 08/11/16 0559 08/11/16 0559 Microbiology Microbiology Date/Time Procedure Status Source Growth 08/10/16 14:30 Urine Culture - Final Complete Urine Clean Catch Escherichia Coli Esbl Positive . Imaging Last Impressions Upper Extremity Ultrasound 07/28/16 0000 Signed Impressions: Service Date/Time: Thursday, July 28, 2016 14:34 - CONCLUSION: No DVT is identified within the right upper extremity. Alfredo Eng MD Chest X-Ray 07/20/16 0000 Signed Impressions: Service Date/Time: Wednesday, July 20, 2016 12:38 - CONCLUSION: Mild left base consolidation developing. Alfredo Sneed MD Brain MRI 07/20/16 0000 Signed Impressions: Service Date/Time: Wednesday, July 20, 2016 09:15 - CONCLUSION: No acute intracranial abnormality. Moderately severe chronic white matter changes, nonspecific but most likely small vessel ischemia. Alfredo Sneed MD Head CT 07/19/16 0000 Signed Impressions: Service Date/Time: Tuesday, July 19, 2016 09:58 - CONCLUSION: No acute intracranial findings. João Otoole MD Foot X-Ray 07/16/16 0000 Signed Impressions: Service Date/Time: Saturday, July 16, 2016 17:34 - CONCLUSION: 1. Nonspecific soft tissue swelling. No acute bone destruction demonstrated. 2. Mild talonavicular and navicular/cuneiform degenerative changes. 3. Second through fifth hammertoe. 4. Moderate-sized heel spur. Alfredo Sneed MD . Procedures 07/31/2016 Excision and debridement of both legs, extensive necrotic wounds approximately 30 x 25 cm area on each side, total 1000 to 1100 cm square, down to the subcutaneous tissue and tendon on the left side. 08/08/2016 1. Selective right lower extremity arteriogram. 2. Balloon angioplasty with a 4 mm x 2200 mm and then a 5 x 200 mm Medtronic angioplasty balloon of the right superficial femoral and proximal popliteal artery. Note that patient had these additional procedures on prior admissions: * Bilateral lower extremity wound debridements 05/15/16 * Bilateral LE Debridements and Left SFA angioplasty on 06/23/16 . Assessment and Plan Disease Oriented Problem List: (1) PVD (peripheral vascular disease) (2) DM (diabetes mellitus), type 2, uncontrolled, periph vascular complic (3) CHF (congestive heart failure) (4) Hypertension (5) Cellulitis of left lower extremity (6) Delirium due to another medical condition (7) VT (ventricular tachycardia) (8) Ulcer of heel and midfoot (9) Hypothyroidism (10) Anemia (11) Urinary tract infection Comment: Cx of 08/11/16 growing out E coli ESBL . Symptom Scale: (1) Pain 0-10 Scale: Unable to quantify Comment: Patient unable to quantify or qualify her own pain. There is frequent moaning and calling out suggesting the pain is quite severe but at times hollering appears more due to delirium than to pain.. Pain most likely due to ischemia and the wounds themselves. May be a component of neuropathic pain from the diabetes. . (2) Confusion 0-10 Scale: Unable to quantify Comment: Confusion is probably multifactorial. Patient apparently was cognitively sharp up until about 05/13/2016. Has had intermittent confusion since including hallucinations and disorientation. Now with known UTI which may be contributing. . Pertinent Non-Medical Issues Psychosocial: Psychosocial support from and daughter (lives locally). Son in [place] is very involved. Spiritual: Alevism. Had been a member of [employer]. Legal: Family reports there is a completed POA for finance and health care. is OK yielding decision making to patient's daughter. Ethical issues impacting care: Patient is currently incapacitated due to delirium. . Important Contacts * Alfredo Lemos (spouse) [phone] * Kalpesh (son) [phone] * Blanche (daughter) [phone] . Prognosis The patient has severe peripheral vascular disease and accompanying refractory lower extremity wounds. Wounds have worsened in spite of aggressive care beginning in March 2016. She has undergone re-vascularization procedures on both lower extremities since May. Wounds now involve tendon structures in the feet. Patient might be able to benefit and achieve healing with hyperbaric oxygen. Otherwise she will likely need bilateral below the knee amputations. Prognosis greatly depends on success of managing these infections/wounds. While these infections/wounds continue, she remains at risk for sepsis. Based on the proposal consultant's notes, it appears unlikely regardless of treatment course that she will be ambulating independently in the future. Her success in any type of rehabilitation will also depend on her ability to clear cognitively and have adequate pain relief without accompanying oversedation. . Code Status: Full Code Plan ==CODE STATUS: Full code ==Decision making: Patient is currently incapacitated to make her own health care decisions. She is confused and it is unclear if/when she will regain capacity. While incapacitated, her husbandJohnis technically her health care decision-maker. Dr Ohara spoke with -- Alfredo -- on 08/12/16. Alfredo said, "I know nothing about health care and medicine." He related his willingness to cede health care decision making to the patient's daugther -- Blanche. Technically, if Alfredo does not want to be proxy, it would pass to both children. I will call son--Kalpesh-- and see if he wants to yield to Blanche since Kalpesh is out of the country so much. == Goals of medical treatment: At this time goals are aggressive. There is no talk of transitioning to comfort measures only. Family feels the patient is not going to be able to endure this pain much longer and are trying to make decisions between hyperbaric oxygen therapy or perhaps bilateral [id number] amputations. For hyperbaric 02 treatments she would need to be home and to be able to tolerate those treatments both of which will require better pain control and delirium control. == Confusion: Patient apparently has had some cognitive changes since around 05/13/16. Family reports these appear to be worse over the last days. Urine is growing out E coli ESBL and UTI probably contributing to delirium. Patient has been started on doxycline. As patient is clearly suffering with her delirium, will attempt to treat. Patient has shown great sensitivity to meds. Quetiapine at 12.5 mg twice daily appears to over-sedate her. Will try 6.25 mg q hs and 6.25 mg q d prn agitated delirium. Will need to watch quetipaine while on methadone as both are QT prolongers. == Lethargy: It has been hard to manage pain / anxiety without oversedating her. Scheduled clonazepam has been DCd which will hopefully help. Oversedation today probably secondary to quetiapine. Doubt the low dose methadone. Lethargy may also be from the single dose of gabapentin given 08/13/16. Recommend we reduce quetiapine as recommended above, stop gabapentin for now, and observe. == Pain: Pain appears mostly secondary to ischemic pain and wound pain in the lower extremities. She may also have some lower extremity pain secondary to diabetic neuropathy. Patient is unable to quantify or qualify her pain adequately due to her cognitive challenges. Managing pain will remain quite difficult. Giving her amounts of opiate analgesics that appears to work on the pain also reportedly is enough that she becomes lethargic. She apparently had a negative reaction to fentanyl. She has a history of acute kidney injury so we may need to be careful of opiates requiring renal metabolism. She became too sedated on higher dose gabapentin. Methadone has been started to see if she will benefit from NMDA receptor blockade but with her heart failure and history of ventricular tachycardia we must avoid other QT prolongers ( famotidine and ondansetron have been DCd). Hydrocodone has been stopped. Will leave prn hydromorphone in place for breakthrough. We will probably need to titrate the methadone every 2-3 days. When patient is screaming, it is understandably difficult for nursing staff to differentiate between pain and delirum. ==Rash: New faint urticarial rash seen on left side of neck and face 08/13/16. New meds include methadone and doxycycline. The latter would be a far more likely culprit. If rash progresses and we have to stop doxycyline might recommend Augmentin. Rash appears to be improving on 08/[address] Alejo indicated he had seen the rash even prior to staring doxycycline or methadone. == Wounds: The family has stated that the wounds began on the abdomen and buttock which make it less likely that these wounds began because of PVD. Also , vascular surgery feels that the wounds are out of proportion to the level of vascular disease. I see only one wound culture since the initial March admission. Given she is around animals all the time and looking at the antibiotic regimens she has been on, I wonder about the possibility of Pasturella or even some type of mycobacteria.. Dr. White is wondering about an underlying autoimmune disease to explain wounds that appear out of proportion to her vascular disease. Family is confused regarding optimal wound care. Dr. Pepe has recommended at least daily scrubbing (for debridement) with thoughts that the patient would be eligible for grafting within about [address] Aqiuno has recommended the dressing changes. == Disposition: Family would like to try further wound care and hyperbaric 02 before resigning to bilateral amputation. In order to get hyperbaric 02, the patient has to go home and be able to tolerate the enclosure in the hyperbaric chamber. The goals probably cannot be achieved without better control over pain and delirium. == Palliative care will continue to follow the patient to assist with symptom management and to further clarify goals of medical treatment as the clinical course evolves. . Attestation To help prompt me to consider important information that might be impacting today's encounter and assessment, information from prior notes written by myself or my colleagues may have been "brought forward" into today's note. My signature on this note, however, is an attestation that I personally performed the exam, history, and/or decision-making noted today, and, unless otherwise indicated, the interactions with patient, family, and staff as well as the review of records all occurred today. I also attest that the listed assessment and stated plan reflect my best clinical judgment today based on the combination of historical information, prior notes, and today's exam/ interactions. When time spent is documented, it refers only to time spent today by the signer, or if indicated, combined time spent today by collaborating physician/nurse practitioner. . Alton Ohara MD Aug 14, 2016 12:38
[2016-08-14 15:00] VITALS: BP 112/52; PULSE 81; RESP 20; TEMP 98.8; O2SAT 91
--- NOTE | 2016-08-14 16:14 | HHI.PR ---
Subjective Remarks Follow up for lower ext gangrene, PVD, wound, severe neuropathic pain, intolerant to most opioids. Patient screams episodically due to pain from her legs. However, when we go into her simón, she runs a normal conversation but she continues to have episodic pain. She reports severe shooting pain. No fever, chills. Objective Vitals Vital Signs Date Time Temp Pulse Resp B/P Pulse Ox O2 Delivery O2 Flow Rate FiO2 08/14/16 12:00 98.0 74 18 137/63 91 08/14/16 08:00 96 Nasal Cannula 2.00 08/14/16 08:00 99.8 75 18 127/60 93 08/14/16 04:00 98.6 75 18 107/52 92 08/14/16 00:00 99.0 73 18 110/53 93 08/13/16 20:00 98.8 81 18 117/56 94 08/13/16 20:00 93 Room Air 08/13/16 20:00 81 I/O 08/13/16 08/13/16 08/13/16 08/14/16 08/14/16 08/14/16 07:00 15:00 23:00 07:00 15:00 23:00 Intake Total 200 ml 480 ml 240 ml 0 ml Balance 200 ml 480 ml 240 ml 0 ml Intake Oral 200 ml 480 ml 240 ml 0 ml # Voids 3 0 2 0 # Bowel Movements 3 3 2 0 Result Diagram: 08/11/16 0559 08/11/16 0559 Imaging Last Impressions Upper Extremity Ultrasound 07/28/16 0000 Signed Impressions: Service Date/Time: Thursday, July 28, 2016 14:34 - CONCLUSION: No DVT is identified within the right upper extremity. Alfredo Eng MD Chest X-Ray 07/20/16 0000 Signed Impressions: Service Date/Time: Wednesday, July 20, 2016 12:38 - CONCLUSION: Mild left base consolidation developing. Alfredo Sneed MD Brain MRI 07/20/16 0000 Signed Impressions: Service Date/Time: Wednesday, July 20, 2016 09:15 - CONCLUSION: No acute intracranial abnormality. Moderately severe chronic white matter changes, nonspecific but most likely small vessel ischemia. Alfredo Sneed MD Head CT 07/19/16 0000 Signed Impressions: Service Date/Time: Tuesday, July 19, 2016 09:58 - CONCLUSION: No acute intracranial findings. João Otoole MD Foot X-Ray 07/16/16 0000 Signed Impressions: Service Date/Time: Saturday, July 16, 2016 17:34 - CONCLUSION: 1. Nonspecific soft tissue swelling. No acute bone destruction demonstrated. 2. Mild talonavicular and navicular/cuneiform degenerative changes. 3. Second through fifth hammertoe. 4. Moderate-sized heel spur. Alfredo Sneed MD Objective Remarks GENERAL: Alert, Oriented x 3, NAD. SKIN: Warm and dry. HEAD: Normocephalic. EYES: No scleral icterus. No injection or drainage. NECK: Supple, trachea midline. No JVD or lymphadenopathy. CARDIOVASCULAR: Regular rate and rhythm without murmurs, gallops, or rubs. RESPIRATORY: Breath sounds equal bilaterally. No accessory muscle use. GASTROINTESTINAL: Abdomen soft, non-tender, nondistended. MUSCULOSKELETAL: Left foot has multiple toes with gangrenous changes. Right foot with digit 3 gangrenous changes. Both lower ext above ankle wrapped in dressing. BACK: Nontender without obvious deformity. No CVA tenderness. Procedures 08/08/2016 PROCEDURE 1. Selective right lower extremity arteriogram. 2. Balloon angioplasty with a 4 mm x 2200 mm and then a 5 x 200 mm [place] and Stroptronic angioplasty balloon of the right superficial femoral and proximal popliteal artery. 07/31/2016 Excision and debridement of both legs, extensive necrotic wounds approximately 30 x 25 cm area on each side, total 1000 to 1100 cm square, down to the subcutaneous tissue and tendon on the left side. A/P Problem List: (1) Cellulitis of left lower extremity ICD Code: L03.116 Status: Acute (2) Delirium due to another medical condition ICD Code: F05 Status: Acute (3) Neuropathic pain ICD Code: M79.2 Status: Acute Assessment and Plan Pt. is 61-year-old female, with multiple admissions, with history of cellulitis of legs, severe PVD, diabetes and cardiomyopathy EF of 30% was at the rehabilitation facility when she became more altered lethargic and hypoxic. Rapid response team was called and transferred patient to ICU. In the ICU patient remains confused and lethargic responsive to pain with a stable blood pressure and saturation of 100% on 40% face mask. Patient has improved and was transferred to regular medical/ surgical unit Chronic lower ext wound Peripheral vascular disease Severe neuropathic pain - Discussed with Vascular surgery. No further input from vascular surgery at this point. - Plastic surgery Dr. Pepe's plan for wound care/hyperbaric treatments.Input appreciated, joint terminal attack controller management of the leg wounds - to get good granulations and then skin graft. The tendon on the left leg may take a long time to get covered with granulations - also may be partly lost. May follow with plastics in outpatient. Plastic surgery signed off. - Continue [place], Dilaudid PRN for pain. - Gabapentin 300mg TID - neuropathic pain. Will give one dose of 400mg now. - Spoke with Dr. Ohara of palliative care. Continue low dose Seroquel, Methadone. - Discussed with CM regarding transfer. Both [facility] and [facility] declined since hyperbaric treatment would be outpatient for them as well. UTI - Microbiology growing ESBL, sensitive to macrobid and sulfa - Continue doxycycline Anxiety - d/c Ativan and start Clonazepam 0.5mg Q8hrs PRN. Hold with increase sedation. Diabetes mellitus - Continue Levemir 5 units QHS and sliding scale insulin. Monitor for hypoglycemia. Hypothyroidism - continue levothyroxine 150 g daily. Hypertension - continue Valsartan 80mg QHS. Cardiomyopathy - Continue Carvedilol 25mg BID, Valsartan, Isosorbide. Hx of seizure activity - continue Valproic acid 250mg Q12hrs. Full code. Heparin SQ. Discussed with patient, patient's daughter, nursing Discharge Plan: Will discuss patient's daughter to see if family members are willing to take care of her and get her to Hyperbaric treatments. Devi Alejo DO Aug 14, 2016 4:14 pm
[2016-08-14] MEDS ORDERED: GABAPENTIN 400 MG CAP PO ONE (16:15)
[2016-08-14] MEDS ORDERED: GABAPENTIN 100 MG CAP PO ONE (16:30)
[2016-08-14] MEDS: clonazePAM 0.5 MG TAB PO PRN (18:00)
[2016-08-14] MEDS: HYDROmorphone HCL PF 1 MG/ML VIAL IV PUSH PRN (19:03)
[2016-08-14 20:00] VITALS: BP 126/58; PULSE 80; RESP 24; TEMP 99; O2SAT 95
[2016-08-14] MEDS: INSULIN DETEMIR 100 UNITS/ML VIAL SQ SCH (21:00)
[2016-08-14] MEDS: VALSARTAN 80 MG TAB PO SCH (21:30)
[2016-08-14] MEDS: MELATONIN 5 MG TAB PO SCH (21:30)
--- NOTE | 2016-08-15 00:15 | HHI.PR ---
Subjective Remarks Patient seen around 1 PM. Follow up for lower ext gangrene, PVD, wound, severe neuropathic pain, intolerant to most opioids. Patient appears to be much calmer today. She requests me not to touch her legs as I approach her. She reports her pain is better controlled. No fever or chills. She reports no pain on her left neck area where there is a mild erythematous lesion. Objective Vitals Vital Signs Date Time Temp Pulse Resp B/P Pulse Ox O2 Delivery O2 Flow Rate FiO2 08/14/16 20:00 99.0 80 24 126/58 95 08/14/16 15:00 98.8 81 20 112/52 91 08/14/16 12:00 98.0 74 18 137/63 91 08/14/16 08:00 96 Nasal Cannula 2.00 08/14/16 08:00 99.8 75 18 127/60 93 08/14/16 04:00 98.6 75 18 107/52 92 I/O 08/14/16 08/14/16 08/14/16 08/15/16 08/15/16 08/15/16 07:00 15:00 23:00 07:00 15:00 23:00 Intake Total 0 ml 360 ml Balance 0 ml 360 ml Intake Oral 0 ml 360 ml # Voids 0 2 # Bowel Movements 0 1 Result Diagram: 08/11/16 0559 08/11/16 0559 Imaging Last Impressions Upper Extremity Ultrasound 07/28/16 0000 Signed Impressions: Service Date/Time: Thursday, July 28, 2016 14:34 - CONCLUSION: No DVT is identified within the right upper extremity. Alfredo Eng MD Chest X-Ray 07/20/16 0000 Signed Impressions: Service Date/Time: Wednesday, July 20, 2016 12:38 - CONCLUSION: Mild left base consolidation developing. Alfredo Sneed MD Brain MRI 07/20/16 0000 Signed Impressions: Service Date/Time: Wednesday, July 20, 2016 09:15 - CONCLUSION: No acute intracranial abnormality. Moderately severe chronic white matter changes, nonspecific but most likely small vessel ischemia. Alfredo Sneed MD Head CT 07/19/16 0000 Signed Impressions: Service Date/Time: Tuesday, July 19, 2016 09:58 - CONCLUSION: No acute intracranial findings. João Otoole MD Foot X-Ray 07/16/16 0000 Signed Impressions: Service Date/Time: Saturday, July 16, 2016 17:34 - CONCLUSION: 1. Nonspecific soft tissue swelling. No acute bone destruction demonstrated. 2. Mild talonavicular and navicular/cuneiform degenerative changes. 3. Second through fifth hammertoe. 4. Moderate-sized heel spur. Alfredo Sneed MD Objective Remarks GENERAL: Alert, Oriented x 3, NAD. SKIN: Warm and dry. HEAD: Normocephalic. EYES: No scleral icterus. No injection or drainage. NECK: Supple, trachea midline. No JVD or lymphadenopathy. CARDIOVASCULAR: Regular rate and rhythm without murmurs, gallops, or rubs. RESPIRATORY: Breath sounds equal bilaterally. No accessory muscle use. GASTROINTESTINAL: Abdomen soft, non-tender, nondistended. MUSCULOSKELETAL: Left foot has multiple toes with gangrenous changes. Right foot with digit 3 gangrenous changes. Both lower ext above ankle wrapped in dressing. BACK: Nontender without obvious deformity. No CVA tenderness. Procedures 08/08/2016 PROCEDURE 1. Selective right lower extremity arteriogram. 2. Balloon angioplasty with a 4 mm x 2200 mm and then a 5 x 200 mm [employer] angioplasty balloon of the right superficial femoral and proximal popliteal artery. 07/31/2016 Excision and debridement of both legs, extensive necrotic wounds approximately 30 x 25 cm area on each side, total 1000 to 1100 cm square, down to the subcutaneous tissue and tendon on the left side. A/P Problem List: (1) Cellulitis of left lower extremity ICD Code: L03.116 Status: Acute (2) Delirium due to another medical condition ICD Code: F05 Status: Acute (3) Neuropathic pain ICD Code: M79.2 Status: Acute Assessment and Plan Pt. is 61-year-old female, with multiple admissions, with history of cellulitis of legs, severe PVD, diabetes and cardiomyopathy EF of 30% was at the rehabilitation facility when she became more altered lethargic and hypoxic. Rapid response team was called and transferred patient to ICU. In the ICU patient remains confused and lethargic responsive to pain with a stable blood pressure and saturation of 100% on 40% face mask. Patient has improved and was transferred to regular medical/ surgical unit Chronic lower ext wound Peripheral vascular disease Severe neuropathic pain - Plastic surgery Dr. Moradia recommended wound care/hyperbaric treatments.Input appreciated, terminal supervisor management of the leg wounds - to get good granulations and then skin graft. The tendon on the left leg may take a long time to get covered with granulations - also may be partly lost. May follow with plastics in outpatient. Plastic surgery signed off. - Continue [place], Dilaudid PRN for pain. - Gabapentin 300mg TID - neuropathic pain, will increase Gabapentin to 400mg TID. - Spoke with Dr. Ohara of palliative care. Continue low dose Seroquel, Methadone. - Discussed with CM regarding transfer. Both [facility] and [facility] declined since hyperbaric treatment would be outpatient for them as well. - Discussed with wound care clinic, Dr. Beavers, patient's daughter and CM. CM is going to find out if Wound care will offer Hyperbaric treatment if patient 's family pays out of pocket while patient is in the hospital. - Left neck cellulitis - Patient is already on doxycycline. We will add topical abx for the lesion as well. UTI - Microbiology growing ESBL, sensitive to macrobid and sulfa - Continue doxycycline Anxiety - d/c Ativan and start Clonazepam 0.5mg Q8hrs PRN. Hold with increase sedation. Diabetes mellitus - Continue Levemir 5 units QHS and sliding scale insulin. Monitor for hypoglycemia. Hypothyroidism - continue levothyroxine 150 g daily. Hypertension - continue Valsartan 80mg QHS. Cardiomyopathy - Continue Carvedilol 25mg BID, Valsartan, Isosorbide. Hx of seizure activity - continue Valproic acid 250mg Q12hrs. Full code. Heparin SQ. Discussed with Patient's daughter, CM, Wound care clinic, Dr. Mary Beavers. Devi Alejo DO Aug 15, 2016 12:15 am
[2016-08-15 00:28] VITALS: BP 156/70; PULSE 78; RESP 20; TEMP 99.7; O2SAT 94
[2016-08-15] MEDS: clonazePAM 0.5 MG TAB PO PRN ×2 (01:26→09:07)
[2016-08-15] MEDS: HYDROmorphone HCL PF 1 MG/ML VIAL IV PUSH PRN ×2 (02:26→16:52)
[2016-08-15 04:00] VITALS: BP 132/59; PULSE 88; RESP 20; TEMP 98.1; O2SAT 92
[2016-08-15] MEDS: CHLORHEXIDINE GLUCONATE 2 % 1 PACK (2 CLOTHS) TOP SCH (04:00)
[2016-08-15] MEDS: HEPARIN SODIUM - SQ 10,000 UNITS/ML VIAL SQ SCH ×3 (05:00→22:06)
[2016-08-15] MEDS: LEVOTHYROXINE SODIUM 150 MCG TAB PO SCH (05:00)
[2016-08-15] MEDS: ISOSORBIDE DINITRATE 5 MG TAB PO SCH ×3 (05:01→22:00)
[2016-08-15] MEDS: POTASSIUM CHLORIDE 10 MEQ CONTROLLED RELEASE TAB PO SCH ×3 (05:01→22:00)
[2016-08-15] MEDS: INSULIN ASPART SUPPLEMENTAL SCALE SQ SCH ×4 (06:00→21:00)
[2016-08-15 08:17] VITALS: BP 106/53; PULSE 75; RESP 20; TEMP 98.4; O2SAT 96
[2016-08-15] MEDS: SODIUM CHLORIDE 0.9% FLUSH 5 ML FLUSH IV FLUSH SCH ×2 (09:00→21:00)
[2016-08-15] MEDS: LACTOBACILLUS ACIDOPHILUS TAB PO SCH ×3 (09:03→16:54)
[2016-08-15] MEDS: ASPIRIN EC 325 MG TABEC PO SCH (09:03)
[2016-08-15] MEDS: DOXYCYCLINE HYCLATE 100 MG TAB PO SCH ×2 (09:03→21:00)
[2016-08-15] MEDS: VALPROIC ACID 250 MG CAP PO SCH ×2 (09:03→21:00)
[2016-08-15] MEDS: GABAPENTIN 300 MG CAP PO SCH ×2 (09:04→13:25)
[2016-08-15] MEDS: CARVEDILOL 12.5 MG TAB PO SCH ×2 (09:04→21:00)
[2016-08-15] MEDS: METHADONE HCL 10 MG TAB PO SCH ×2 (09:04→21:00)
[2016-08-15] MEDS: LIOTHYRONINE SODIUM 5 MCG TAB PO SCH (09:05)
[2016-08-15 12:28] VITALS: BP 120/55; PULSE 73; RESP 20; TEMP 99.7; O2SAT 95
--- NOTE | 2016-08-15 14:54 | HHI.HCPN ---
Reason for visit a. To assist with evaluation and management of symptoms including: Lower extremity pain; confusion; lethargy b. To assist medical decision maker(s) with: better understanding of current medical conditions; weighing benefits/burdens of medical treatment options; making medical treatment decisions. . Subjective/Interval History Patient is fairly lethargic at the time of my visit. She seems confused. Denies pain at this time. She remains on methadone low-dose scheduled, and on the low-dose quetiapine. In addition, she is getting PRN clonazepam two or 3 times per day and PRN hydromorphone 1 or 2 times per day. She had fever 101.62 days ago, and since then a few temperatures in the 99.8 area. . Family/friend interactions Unable to reach family today. No one at the bedside . Advance Directives Living Will: Never completed Health Care Surrogate: Never completed Durable Power of [place]: Completed, but not made available Advance Directive Specifics Date completed: Family reports there is a completed POA document -- not available to us at this time. Unknown date. . Health Care Surrogate(s): is reportedly the health care POA. Even if there is no documented designation of health care POA or surrogate, he would serve as proxy. Spoke with in person on 08/12/16. He tells me how he knows nothing about health care and is fine if patient's daughter Blanche serves as proxy. If does not want to serve, it would fall to both son and daughter. Will speak to both of them. Son may want to yield as he travels so much. . Documented care wishes: No documented wishes of patient's expressed health care goals/preferences. . Objective Vital Signs Date Time Temp Pulse Resp B/P Pulse Ox O2 Delivery O2 Flow Rate FiO2 08/15/16 12:28 99.7 73 20 120/55 95 08/15/16 08:17 98.4 75 20 106/53 96 08/15/16 04:00 98.1 88 20 132/59 92 08/15/16 00:28 99.7 78 20 156/70 94 08/14/16 21:00 Room Air 08/14/16 20:00 99.0 80 24 126/58 95 08/14/16 15:00 98.8 81 20 112/52 91 Intake & Output 08/15/16 08/15/16 07:00 19:00 Intake Total 480 ml Output Total 1 ml Balance 479 ml Intake Oral 480 ml Stool Total 1 ml # Voids 1 # Bowel Movements 0 Physical Exam CONSTITUTIONAL/GENERAL: This is an adequately nourished patient. Lethargic at time of my visit. No distress. SKIN: No jaundice. Ecchymoses on upper extremities. I did not remove the patient's lower extremity dressings which are wet. Dry, gangrenous changes are noted on the digits of both feet. Skin temperature appropriate. Not diaphoretic. There is a faint urticarial type rash on the left side of the face and neck which has improved since 08/13. ENT: Hearing grossly normal. Nose without bleeding or purulent drainage. NECK: Trachea midline. Supple. CARDIOVASCULAR: Regular rate and rhythm without gallops, or rubs. 2/6 systolic murmur heard. No JVD. RESPIRATORY/CHEST: Symmetric, unlabored respirations. Clear to auscultation. Breath sounds equal bilaterally. No wheezes, rales, or rhonchi. GASTROINTESTINAL: Abdomen soft, non-tender, nondistended. No hepato-splenomegaly , or palpable masses. No guarding. Bowel sounds present. GENITOURINARY: Without palpable bladder distension. MUSCULOSKELETAL: Both lower extremities are edematous. Dressing was not removed from her wounds. Dry gangrenous changes to the digits of both feet. NEUROLOGICAL: Moves all extremities. Lethargic. Awakens to loud voice but quickly drifts back to sleep PSYCHIATRIC: Unable to assess due to level of lethargy. . Diagnostic Tests Result Diagram: 08/11/16 0559 08/11/16 0559 Microbiology Microbiology Date/Time Procedure Status Source Growth 08/14/16 16:50 Gram Stain - Final Resulted Wound Leg 08/14/16 16:50 Wound Culture Resulted Wound Leg Pending Imaging Last Impressions Upper Extremity Ultrasound 07/28/16 0000 Signed Impressions: Service Date/Time: Thursday, July 28, 2016 14:34 - CONCLUSION: No DVT is identified within the right upper extremity. Alfredo Eng MD Chest X-Ray 07/20/16 0000 Signed Impressions: Service Date/Time: Wednesday, July 20, 2016 12:38 - CONCLUSION: Mild left base consolidation developing. Alfredo Sneed MD Brain MRI 07/20/16 0000 Signed Impressions: Service Date/Time: Wednesday, July 20, 2016 09:15 - CONCLUSION: No acute intracranial abnormality. Moderately severe chronic white matter changes, nonspecific but most likely small vessel ischemia. Alfredo Sneed MD Head CT 07/19/16 0000 Signed Impressions: Service Date/Time: Tuesday, July 19, 2016 09:58 - CONCLUSION: No acute intracranial findings. João Otoole MD Foot X-Ray 07/16/16 0000 Signed Impressions: Service Date/Time: Saturday, July 16, 2016 17:34 - CONCLUSION: 1. Nonspecific soft tissue swelling. No acute bone destruction demonstrated. 2. Mild talonavicular and navicular/cuneiform degenerative changes. 3. Second through fifth hammertoe. 4. Moderate-sized heel spur. Alfredo Sneed MD Procedures 07/31/2016 Excision and debridement of both legs, extensive necrotic wounds approximately 30 x 25 cm area on each side, total 1000 to 1100 cm square, down to the subcutaneous tissue and tendon on the left side. 08/08/2016 1. Selective right lower extremity arteriogram. 2. Balloon angioplasty with a 4 mm x 2200 mm and then a 5 x 200 mm Medtronic angioplasty balloon of the right superficial femoral and proximal popliteal artery. Note that patient had these additional procedures on prior admissions: * Bilateral lower extremity wound debridements 05/15/16 * Bilateral LE Debridements and Left SFA angioplasty on 06/23/16 . Assessment and Plan Disease Oriented Problem List: (1) PVD (peripheral vascular disease) (2) DM (diabetes mellitus), type 2, uncontrolled, periph vascular complic (3) CHF (congestive heart failure) (4) Hypertension (5) Cellulitis of left lower extremity (6) Delirium due to another medical condition (7) VT (ventricular tachycardia) (8) Ulcer of heel and midfoot (9) Hypothyroidism (10) Anemia (11) Urinary tract infection Comment: Cx of 08/11/16 growing out E coli ESBL . Symptom Scale: (1) Pain 0-10 Scale: Unable to quantify Comment: Patient unable to quantify or qualify her own pain. There is frequent moaning and calling out suggesting the pain is quite severe but at times hollering appears more due to delirium than to pain.. Pain most likely due to ischemia and the wounds themselves. May be a component of neuropathic pain from the diabetes. . (2) Confusion 0-10 Scale: Unable to quantify Comment: Confusion is probably multifactorial. Patient apparently was cognitively sharp up until about 05/13/2016. Has had intermittent confusion since including hallucinations and disorientation. Now with known UTI which may be contributing. . Pertinent Non-Medical Issues Psychosocial: Psychosocial support from and daughter (lives locally). Son in [place] is very involved. Spiritual: [employer]ism. Had been a member of [employer]. Legal: Family reports there is a completed POA for finance and health care. is OK yielding decision making to patient's daughter. Ethical issues impacting care: Patient is currently incapacitated due to delirium. . Important Contacts * Alfredo Lemos (spouse) [phone] * Kalpesh (son) [phone] * Blanche (daughter) [phone] . Prognosis The patient has severe peripheral vascular disease and accompanying refractory lower extremity wounds. Wounds have worsened in spite of aggressive care beginning in March 2016. She has undergone re-vascularization procedures on both lower extremities since May. Wounds now involve tendon structures in the feet. Patient might be able to benefit and achieve healing with hyperbaric oxygen. Otherwise she will likely need bilateral below the knee amputations. Prognosis greatly depends on success of managing these infections/wounds. While these infections/wounds continue, she remains at risk for sepsis. Based on the [facility] consultant's notes, it appears unlikely regardless of treatment course that she will be ambulating independently in the future. Her success in any type of rehabilitation will also depend on her ability to clear cognitively and have adequate pain relief without accompanying oversedation. . Code Status: Full Code Plan ==CODE STATUS: Full code ==Decision making: Patient is currently incapacitated to make her own health care decisions. She is confused and it is unclear if/when she will regain capacity. While incapacitated, her husbandJohnis technically her health care decision-maker. Dr Ohara spoke with -- Alfredo -- on 08/12/16. Alfredo said, "I know nothing about health care and medicine." He related his willingness to cede health care decision making to the patient's daugther -- Blanche. Technically, if Alfredo does not want to be proxy, it would pass to both children. I will call son--Kalpesh-- and see if he wants to yield to Blanche since Kalpesh is out of the country so much. == Goals of medical treatment: At this time goals are aggressive. There is no talk of transitioning to comfort measures only. Family feels the patient is not going to be able to endure this pain much longer and are trying to make decisions between hyperbaric oxygen therapy or perhaps bilateral [id number] amputations. For hyperbaric 02 treatments she would need to be home and to be able to tolerate those treatments both of which will require better pain control and delirium control. == Confusion: Patient apparently has had some cognitive changes since around 05/13/16. Family reports these appear to be worse over the last days. Urine is growing out E coli ESBL and UTI probably contributing to delirium. Patient has been started on doxycline. As patient is clearly suffering with her delirium, will attempt to treat. Patient has shown great sensitivity to meds. Quetiapine at 12.5 mg twice daily appears to over-sedate her. Will try 6.25 mg q hs and 6.25 mg q d prn agitated delirium. Will need to watch quetiapine while on methadone as both are QT prolongers. == Lethargy: It has been hard to manage pain / anxiety without oversedating her. Scheduled clonazepam has been DCd which will hopefully help. Oversedation today probably secondary to quetiapine. Doubt the low dose methadone. Lethargy may also be from the single dose of gabapentin given 08/13/16. Recommend (we reduced quetiapine as recommended above), stop gabapentin for now , and observe. == Pain: Pain appears mostly secondary to ischemic pain and wound pain in the lower extremities. She may also have some lower extremity pain secondary to diabetic neuropathy. Patient is unable to quantify or qualify her pain adequately due to her cognitive challenges. Managing pain will remain quite difficult. Giving her amounts of opiate analgesics that appears to work on the pain also reportedly is enough that she becomes lethargic. She apparently had a negative reaction to fentanyl. She has a history of acute kidney injury so we may need to be careful of opiates requiring renal metabolism. She became too sedated on higher dose gabapentin. Methadone has been started to see if she will benefit from NMDA receptor blockade but with her heart failure and history of ventricular tachycardia we must avoid other QT prolongers ( famotidine and ondansetron have been DCd). Hydrocodone has been stopped. Will leave prn hydromorphone in place for breakthrough. We will probably need to titrate the methadone every 2-3 days. When patient is screaming, it is understandably difficult for nursing staff to differentiate between pain and delirum. == Wounds: The family has stated that the wounds began on the abdomen and buttock which make it less likely that these wounds began because of PVD. Also , vascular surgery feels that the wounds are out of proportion to the level of vascular disease. I see only one wound culture since the initial March admission. Given she is around animals all the time and looking at the antibiotic regimens she has been on, I wonder about the possibility of Pasturella or even some type of mycobacteria.. Dr. White is wondering about an underlying autoimmune disease to explain wounds that appear out of proportion to her vascular disease. Family is confused regarding optimal wound care. Dr. Pepe has recommended at least daily scrubbing (for debridement) with thoughts that the patient would be eligible for grafting within about [address] Aquino has recommended the dressing changes. == Disposition: Family would like to try further wound care and hyperbaric 02 before resigning to bilateral amputation. In order to get hyperbaric 02, the patient has to go home and be able to tolerate the enclosure in the hyperbaric chamber. The goals probably cannot be achieved without better control over pain and delirium. == Palliative care will continue to follow the patient to assist with symptom management and to further clarify goals of medical treatment as the clinical course evolves. . Time Spent Total Floor Time (mins): 28 Face to Face Time (mins): 15 >50% Counseling/Coord of Care: Yes Attestation To help prompt me to consider important information that might be impacting today's encounter and assessment, information from prior notes written by myself or my colleagues may have been "brought forward" into today's note. My signature on this note, however, is an attestation that I personally performed the exam, history, and/or decision-making noted today, and, unless otherwise indicated, the interactions with patient, family, and staff as well as the review of records all occurred today. I also attest that the listed assessment and stated plan reflect my best clinical judgment today based on the combination of historical information, prior notes, and today's exam/ interactions. When time spent is documented, it refers only to time spent today by the signer, or if indicated, combined time spent today by collaborating physician/nurse practitioner. Amy Martinez MD Aug 15, 2016 14:54
[2016-08-15 16:42] VITALS: BP 113/54; PULSE 75; RESP 18; TEMP 99.9; O2SAT 94
[2016-08-15] MEDS: GABAPENTIN 400 MG CAP PO SCH (16:54)
[2016-08-15 20:00] VITALS: BP 99/55; PULSE 79; RESP 18; TEMP 101.8; O2SAT 94
[2016-08-15] MEDS: HYDROCORTISONE 1% CREAM 30 GM TOPICAL SCH (20:00)
[2016-08-15] MEDS: QUEtiapine FUMARATE 25 MG TAB PO SCH (21:00)
[2016-08-15] MEDS: VALSARTAN 80 MG TAB PO SCH (21:00)
[2016-08-15] MEDS: MUPIROCIN 2% OINT 22 GM TUBE TOPICAL SCH (21:00)
[2016-08-15] MEDS: MELATONIN 5 MG TAB PO SCH (21:00)
--- NOTE | 2016-08-15 21:08 | RADRPT ---
EXAM DATE/TIME: 08/15/2016 20:39 [facility] COMPARISON: CHEST SINGLE AP, July 20, 2016, 12:38. INDICATIONS : Short of breath with dyspnea. MEDICAL HISTORY : Diabetes mellitus type II. SURGICAL HISTORY : None. ENCOUNTER: Subsequent ACUITY: 2 days PAIN SCORE: Non-responsive. LOCATION: Bilateral chest FINDINGS: There are developing bilateral perihilar and basilar parenchymal opacities. Cardiac contours are radha sly stable. CONCLUSION: Developing bilateral infiltrates Alfredo Etienne MD on August 15, 2016 at 21:06 Board Certified Radiologist. This report was verified electronically.
[2016-08-15] MEDS: INSULIN DETEMIR 100 UNITS/ML VIAL SQ SCH (22:05)
[2016-08-16] VITALS: BP 103/58; PULSE 72; RESP 19; TEMP 102.2; O2SAT 94
[2016-08-16 04:00] VITALS: BP 101/50; PULSE 69; RESP 19; TEMP 98.7; O2SAT 100
[2016-08-16] MEDS: CHLORHEXIDINE GLUCONATE 2 % 1 PACK (2 CLOTHS) TOP SCH (04:00)
[2016-08-16] MEDS: HYDROCORTISONE 1% CREAM 30 GM TOPICAL SCH ×3 (04:00→22:47)
[2016-08-16] MEDS: LEVOTHYROXINE SODIUM 150 MCG TAB PO SCH (06:08)
[2016-08-16] MEDS: ISOSORBIDE DINITRATE 5 MG TAB PO SCH ×3 (06:08→22:40)
[2016-08-16] MEDS: POTASSIUM CHLORIDE 10 MEQ CONTROLLED RELEASE TAB PO SCH (06:08)
[2016-08-16] MEDS: HEPARIN SODIUM - SQ 10,000 UNITS/ML VIAL SQ SCH ×3 (06:09→22:50)
[2016-08-16] MEDS: INSULIN ASPART SUPPLEMENTAL SCALE SQ SCH ×3 (06:12→21:00)
[2016-08-16 08:00] VITALS: BP 103/51; PULSE 67; RESP 18; TEMP 98.1; O2SAT 96
[2016-08-16] MEDS ORDERED: LEVOFLOXACIN 750 MG PREMIX INJ 150 ML IV SCH (08:00)
[2016-08-16] MEDS: SODIUM CHLORIDE 0.9% FLUSH 5 ML FLUSH IV FLUSH SCH ×2 (09:00→22:47)
[2016-08-16] MEDS: MUPIROCIN 2% OINT 22 GM TUBE TOPICAL SCH ×2 (09:00→21:00)
[2016-08-16] MEDS: LACTOBACILLUS ACIDOPHILUS TAB PO SCH ×6 (09:00→18:21)
[2016-08-16] MEDS: CARVEDILOL 12.5 MG TAB PO SCH ×2 (09:41→22:40)
[2016-08-16] MEDS: GABAPENTIN 400 MG CAP PO SCH ×3 (09:41→18:21)
[2016-08-16] MEDS: ASPIRIN EC 325 MG TABEC PO SCH (09:42)
[2016-08-16] MEDS: VALPROIC ACID 250 MG CAP PO SCH ×2 (09:42→22:41)
[2016-08-16] MEDS: DOXYCYCLINE HYCLATE 100 MG TAB PO SCH ×2 (09:42→22:41)
[2016-08-16 11:39] VITALS: BP 98/49; PULSE 71; RESP 20; TEMP 97.9; O2SAT 94
[2016-08-16 12:27] LABS: AUTOMATED NEUTROPHIL # 12.5 TH/MM3 (1.8-7.7); BASOPHIL # 0.1 TH/MM3 (0-0.2); BASOPHIL % 0.5 % (0.0-2.0); EOSINOPHIL # 0.3 TH/MM3 (0-0.4); EOSINOPHIL % 1.8 % (0.0-4.0); HEMATOCRIT 27.8 % (35.0-46.0); LYMPH % 15.4 % (9.0-44.0); LYMPHOCYTE # 2.6 TH/MM3 (1.0-4.8); MEAN CELL VOLUME 74.3 FL (80.0-100.0); MEAN CORPUSCULAR HEMOGLOBIN 22.6 PG (27.0-34.0); MEAN CORPUSCULAR HGB CONC 30.5 % (32.0-36.0); MONO % 9.8 % (0.0-8.0); NEUT % 72.5 % (16.0-70.0); PLATELET COUNT 272 TH/MM3 (150-450); RED BLOOD COUNT 3.74 MIL/MM3 (4.00-5.30); RED CELL DISTRIBUTION WIDTH 18.3 % (11.6-17.2); WHITE BLOOD COUNT 17.2 TH/MM3 (4.0-11.0)
[2016-08-16] MEDS: METHADONE HCL 10 MG TAB PO SCH ×2 (12:30→22:42)
[2016-08-16] MEDS: LIOTHYRONINE SODIUM 5 MCG TAB PO SCH (12:31)
[2016-08-16 12:40] LABS: BICARBONATE 28.3 MEQ/L (21.0-32.0); POTASSIUM 4.8 MEQ/L (3.5-5.1)
[2016-08-16 12:46] LABS: HEMO FLAGS AUTO DIFF
[2016-08-16 12:48] LABS: BANDS 12 % (0-6); METAMYELOCYTES 1 % (0-1); NEUTROPHIL # MANUAL DIFF 12.2 TH/MM3 (1.8-7.7); POLYS (SEG NEUTROPHILS) 58 % (16-70); WBC DIFF SAMPLE 100
[2016-08-16 12:49] LABS: PLATELET ESTIMATE SMEAR NORMAL (NORMAL); PLATELET MORPHOLOGY NORMAL (NORMAL); SCAN/DIFF FINAL DIFF MANUAL
[2016-08-16] MEDS: HYDROmorphone HCL PF 1 MG/ML VIAL IV PUSH PRN (13:03)
--- NOTE | 2016-08-16 13:27 | HHI.PR ---
Subjective Remarks Follow up for lower ext gangrene, PVD, wound, severe neuropathic pain. Patient is almost constantly screaming. When asked, she says she has no pain. However, she is hallucinating about staff doing bad things to her. She denies any pain from the left sided neck rash. Objective Vitals Vital Signs Date Time Temp Pulse Resp B/P Pulse Ox O2 Delivery O2 Flow Rate FiO2 08/16/16 11:39 97.9 71 20 98/49 94 08/16/16 08:00 98.1 67 18 103/51 96 08/16/16 04:00 98.7 69 19 101/50 100 08/16/16 00:00 102.2 72 19 103/58 94 08/15/16 21:00 Nasal Cannula 2.00 08/15/16 20:00 101.8 79 18 99/55 94 08/15/16 16:42 99.9 75 18 113/54 94 08/15/16 15:24 Room Air 21 I/O 08/15/16 08/15/16 08/15/16 08/16/16 08/16/16 08/16/16 07:00 15:00 23:00 07:00 15:00 23:00 Intake Total 240 ml 100 ml 180 ml 80 ml Output Total 1 ml Balance 239 ml 100 ml 180 ml 80 ml Intake Oral 240 ml 100 ml 180 ml 80 ml Stool Total 1 ml # Voids 1 0 1 0 # Bowel Movements 0 Result Diagram: 08/16/16 1206 08/16/16 1206 Objective Remarks GENERAL: Alert, Oriented x 3, NAD. SKIN: Warm and dry. HEAD: Normocephalic. EYES: No scleral icterus. No injection or drainage. NECK: Supple, trachea midline. No JVD or lymphadenopathy. CARDIOVASCULAR: Regular rate and rhythm without murmurs, gallops, or rubs. RESPIRATORY: Breath sounds equal bilaterally. No accessory muscle use. GASTROINTESTINAL: Abdomen soft, non-tender, nondistended. MUSCULOSKELETAL: Left foot has multiple toes with gangrenous changes. Right foot with digit 3 gangrenous changes. Both lower ext above ankle wrapped in dressing. BACK: Nontender without obvious deformity. No CVA tenderness. Procedures 08/08/2016 PROCEDURE 1. Selective right lower extremity arteriogram. 2. Balloon angioplasty with a 4 mm x 2200 mm and then a 5 x 200 mm Medtronic angioplasty balloon of the right superficial femoral and proximal popliteal artery. 07/31/2016 Excision and debridement of both legs, extensive necrotic wounds approximately 30 x 25 cm area on each side, total 1000 to 1100 cm square, down to the subcutaneous tissue and tendon on the left side. A/P Problem List: (1) Cellulitis of left lower extremity ICD Code: L03.116 Status: Acute (2) Delirium due to another medical condition ICD Code: F05 Status: Acute (3) Neuropathic pain ICD Code: M79.2 Status: Acute Assessment and Plan Pt. is 61-year-old female, with multiple admissions, with history of cellulitis of legs, severe PVD, diabetes and cardiomyopathy EF of 30% was at the rehabilitation facility when she became more altered lethargic and hypoxic. Rapid response team was called and transferred patient to ICU. In the ICU patient remains confused and lethargic responsive to pain with a stable blood pressure and saturation of 100% on 40% face mask. Patient has improved and was transferred to regular medical/ surgical unit Chronic lower ext wound Peripheral vascular disease Severe neuropathic pain - Plastic surgery Dr. Pepe recommended wound care/hyperbaric treatments.Input appreciated, technician terminal and repeater management of the leg wounds - to get good granulations and then skin graft. The tendon on the left leg may take a long time to get covered with granulations - also may be partly lost. May follow with plastics in outpatient. Plastic surgery signed off. - Continue [place], Dilaudid PRN for pain. - Gabapentin 300mg TID - neuropathic pain, will increase Gabapentin to 400mg TID. - Spoke with Dr. Ohara of palliative care. Continue low dose Seroquel, Methadone. - Discussed with CM regarding transfer. Both [facility] and [facility] declined since hyperbaric treatment would be outpatient for them as well. - Discussed with wound care clinic, Dr. Beavers, patient's daughter and CM. CM is going to find out if Wound care will offer Hyperbaric treatment if patient 's family pays out of pocket while patient is in the hospital. - Will consult Dr. Dee for a second opinion regarding bilateral amputation. Patient's daughter is agreeable to this approach. - Left neck cellulitis - Patient is already on doxycycline. We will add topical abx for the lesion as well. UTI - Microbiology growing ESBL, sensitive to macrobid and sulfa - Continue doxycycline - Probable pneumonia - will add Levaquin IV. - Labs reviewed. Leukocytosis noted. We will consider an ID consult tomorrow. Anxiety - d/c Ativan and start Clonazepam 0.5mg Q8hrs PRN. Hold with increase sedation. Diabetes mellitus - Continue Levemir 5 units QHS and sliding scale insulin. Monitor for hypoglycemia. Hypothyroidism - continue levothyroxine 150 g daily. Hypertension - continue Valsartan 80mg QHS. Cardiomyopathy - Continue Carvedilol 25mg BID, Valsartan, Isosorbide. Hx of seizure activity - continue Valproic acid 250mg Q12hrs. Full code. Heparin SQ. Discussed with Patient's daughter, Dr. Aquino. Devi Alejo DO Aug 16, 2016 1:27 pm
[2016-08-16 16:00] VITALS: BP 100/50; PULSE 68; RESP 20; TEMP 98.8; O2SAT 92
[2016-08-16] MEDS: clonazePAM 0.5 MG TAB PO PRN (18:21)
[2016-08-16 20:00] VITALS: BP 99/55; PULSE 72; RESP 18; TEMP 99.7; O2SAT 90
[2016-08-16] MEDS: INSULIN DETEMIR 100 UNITS/ML VIAL SQ SCH (21:00)
[2016-08-16] MEDS: MELATONIN 5 MG TAB PO SCH (22:40)
[2016-08-16] MEDS: QUEtiapine FUMARATE 25 MG TAB PO SCH (22:40)
[2016-08-16] MEDS: VALSARTAN 80 MG TAB PO SCH (22:41)
[2016-08-17] VITALS: BP 125/56; PULSE 77; RESP 18; TEMP 98.7; O2SAT 95
[2016-08-17 04:00] VITALS: BP 96/58; PULSE 77; RESP 20; TEMP 97.9; O2SAT 95
[2016-08-17] MEDS: CHLORHEXIDINE GLUCONATE 2 % 1 PACK (2 CLOTHS) TOP SCH (04:00)
[2016-08-17] MEDS: ISOSORBIDE DINITRATE 5 MG TAB PO SCH ×3 (05:23→21:10)
[2016-08-17] MEDS: LEVOTHYROXINE SODIUM 150 MCG TAB PO SCH (05:23)
[2016-08-17] MEDS: HEPARIN SODIUM - SQ 10,000 UNITS/ML VIAL SQ SCH ×3 (05:24→21:12)
[2016-08-17] MEDS: INSULIN ASPART SUPPLEMENTAL SCALE SQ SCH ×4 (05:25→21:00)
[2016-08-17] MEDS: HYDROCORTISONE 1% CREAM 30 GM TOPICAL SCH ×3 (05:26→21:13)
[2016-08-17 07:41] LABS: BASOPHIL % 0.3 % (0.0-2.0); EOSINOPHIL # 0.3 TH/MM3 (0-0.4); EOSINOPHIL % 2.3 % (0.0-4.0); LYMPH % 22.8 % (9.0-44.0); LYMPHOCYTE # 2.5 TH/MM3 (1.0-4.8); MEAN CELL VOLUME 76.3 FL (80.0-100.0); MEAN CORPUSCULAR HEMOGLOBIN 22.9 PG (27.0-34.0); MONO % 11.8 % (0.0-8.0); NEUT % 62.8 % (16.0-70.0); PLATELET COUNT 241 TH/MM3 (150-450); RED BLOOD COUNT 3.41 MIL/MM3 (4.00-5.30); RED CELL DISTRIBUTION WIDTH 18.9 % (11.6-17.2); WHITE BLOOD COUNT 11.1 TH/MM3 (4.0-11.0)
[2016-08-17 08:00] VITALS: BP 99/50; PULSE 82; RESP 20; TEMP 99.3; O2SAT 94
[2016-08-17] MEDS ORDERED: Vancomycin Consult Pharmacy 1 EA OTHER SCH (08:15)
[2016-08-17] MEDS ORDERED: SODIUM CHLOR 0.9% 1000 ML INJ 1,000 ML IV ONE (08:30)
[2016-08-17 08:44] LABS: HEMO FLAGS AUTO DIFF
[2016-08-17] MEDS: MUPIROCIN 2% OINT 22 GM TUBE TOPICAL SCH (09:00)
[2016-08-17] MEDS: LACTOBACILLUS ACIDOPHILUS TAB PO SCH ×4 (09:00→18:38)
[2016-08-17] MEDS ORDERED: SODIUM CHLOR 0.9% 1000 ML INJ 1,000 ML IV SCH (09:00)
[2016-08-17 09:25] LABS: ANION GAP 7 MEQ/L (5-15); AST (GOT) 32 U/L (15-37); BICARBONATE 30.4 MEQ/L (21.0-32.0); BLOOD UREA NITROGEN 22 MG/DL (7-18); CHLORIDE 104 MEQ/L (98-107); GLOMERULAR FILTRATION RATE 58 ML/MIN (>89); POTASSIUM 4.3 MEQ/L (3.5-5.1); SODIUM (NA) 141 MEQ/L (136-145)
[2016-08-17 09:28] LABS: ALKALINE PHOSPHATASE 74 U/L (45-117); ALT (GPT) 17 U/L (10-53); TOTAL BILIRUBIN ADULT 0.4 MG/DL (0.2-1.0)
--- NOTE | 2016-08-17 09:38 | HHI.PR ---
Subjective Remarks Follow up for lower ext gangrene, PVD, wound, severe neuropathic pain. Patient continues to scream due to leg pain. Son is at bedside. Blood pressure below 100 systolic. Objective Vitals Vital Signs Date Time Temp Pulse Resp B/P Pulse Ox O2 Delivery O2 Flow Rate FiO2 08/17/16 08:00 99.3 82 20 99/50 94 08/17/16 04:00 97.9 77 20 96/58 95 08/17/16 00:00 98.7 77 18 125/56 95 08/16/16 22:45 Nasal Cannula 2.00 08/16/16 20:00 99.7 72 18 99/55 90 08/16/16 16:00 98.8 68 20 100/50 92 08/16/16 11:39 97.9 71 20 98/49 94 I/O 08/16/16 08/16/16 08/16/16 08/17/16 08/17/16 08/17/16 07:00 15:00 23:00 07:00 15:00 23:00 Intake Total 80 ml 480 ml 120 ml 120 ml Balance 80 ml 480 ml 120 ml 120 ml Intake Oral 80 ml 480 ml 120 ml 120 ml # Voids 0 1 1 0 # Bowel Movements 1 0 0 Result Diagram: 08/17/16 0511 08/17/16 0852 Imaging Last Impressions Chest X-Ray 08/15/16 0000 Signed Impressions: Service Date/Time: Monday, August 15, 2016 20:39 - CONCLUSION: Developing bilateral infiltrates Alfredo Etienne MD Upper Extremity Ultrasound 07/28/16 0000 Signed Impressions: Service Date/Time: Thursday, July 28, 2016 14:34 - CONCLUSION: No DVT is identified within the right upper extremity. Alfredo Eng MD Brain MRI 07/20/16 0000 Signed Impressions: Service Date/Time: Wednesday, July 20, 2016 09:15 - CONCLUSION: No acute intracranial abnormality. Moderately severe chronic white matter changes, nonspecific but most likely small vessel ischemia. Alfredo Sneed MD Head CT 07/19/16 0000 Signed Impressions: Service Date/Time: Tuesday, July 19, 2016 09:58 - CONCLUSION: No acute intracranial findings. João Otoole MD Foot X-Ray 07/16/16 0000 Signed Impressions: Service Date/Time: Saturday, July 16, 2016 17:34 - CONCLUSION: 1. Nonspecific soft tissue swelling. No acute bone destruction demonstrated. 2. Mild talonavicular and navicular/cuneiform degenerative changes. 3. Second through fifth hammertoe. 4. Moderate-sized heel spur. Alfredo Sneed MD Objective Remarks GENERAL: Alert, Screams in pain episodically. SKIN: Warm and dry. HEAD: Normocephalic. EYES: No scleral icterus. No injection or drainage. NECK: Supple, trachea midline. No JVD or lymphadenopathy. CARDIOVASCULAR: Regular rate and rhythm without murmurs, gallops, or rubs. RESPIRATORY: Breath sounds equal bilaterally. No accessory muscle use. GASTROINTESTINAL: Abdomen soft, non-tender, nondistended. MUSCULOSKELETAL: Left foot has multiple toes with gangrenous changes. Right foot with digit 3 gangrenous changes. Both lower ext above ankle wrapped in dressing. BACK: Nontender without obvious deformity. No CVA tenderness. Procedures 08/08/2016 PROCEDURE 1. Selective right lower extremity arteriogram. 2. Balloon angioplasty with a 4 mm x 2200 mm and then a 5 x 200 mm Ardelyxtronic angioplasty balloon of the right superficial femoral and proximal popliteal artery. 07/31/2016 Excision and debridement of both legs, extensive necrotic wounds approximately 30 x 25 cm area on each side, total 1000 to 1100 cm square, down to the subcutaneous tissue and tendon on the left side. A/P Problem List: (1) Cellulitis of left lower extremity ICD Code: L03.116 Status: Acute (2) Delirium due to another medical condition ICD Code: F05 Status: Acute (3) Neuropathic pain ICD Code: M79.2 Status: Acute Assessment and Plan Pt. is 61-year-old female, with multiple admissions, with history of cellulitis of legs, severe PVD, diabetes and cardiomyopathy EF of 30% was at the rehabilitation facility when she became more altered lethargic and hypoxic. Rapid response team was called and transferred patient to ICU. In the ICU patient remains confused and lethargic responsive to pain with a stable blood pressure and saturation of 100% on 40% face mask. Patient has improved and was transferred to regular medical/ surgical unit. 08/17/2016: Received a call from RN around 7AM on 08/17/2016 that patient's blood pressure is on the lower side (systolic below 100) and has not had any urine output in over 8-10 hours. Patient's WBC count on 08/16/2016 was 17.2K. CXR from 08/15/2016 showed developing pneumonia. Wound culture from the legs show MRSA. Given patient's clinical symptoms (low BP, low Urine output), we suspected development of sepsis. I evaluated patient at bedside and held long discussion with patient's son. We gave patient 1L of NS bolus as well as 2L of fluid @200cc /hour. We also discontinued Levaquin and Doxycycline and initiated Vancomycin and Zosyn. Additionally, we obtained an ID consult. Mcintyre catheter was placed to measure urine output. ID recommended to continue Vanc/Zosyn and Levaquin and thus Levaquin was re-started. I evaluated patient again in the afternoon. Blood pressure on the lower side but stable (MAP > 65). Total critical care time spent >45 minutes which included evaluation of patient for developing sepsis, initiating antibiotics, IV fluid as well as discussion with RN, family members. Additional time spent again in the afternoon to re- assess patient as well discuss plan with patient's and daughter. Chronic lower ext wound Peripheral vascular disease Severe neuropathic pain - Plastic surgery Dr. 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 The tendon on the left leg may take a long time to get covered with granulations - also may be partly lost. May follow with plastics in outpatient. Plastic surgery signed off. - Continue Barney, Dilaudid PRN for pain. - Gabapentin 300mg TID - neuropathic pain, will increase Gabapentin to 400mg TID. - Spoke with Dr. Ohara of palliative care. Continue low dose Seroquel, Methadone. - Discussed with CM regarding transfer. Both [facility] and [facility] declined since hyperbaric treatment would be outpatient for them as well. - Consulted Dr. Dee for a second opinion. - We will continue broad spectrum abx and monitor leg wounds. - Left neck rash - could be contact dermatitis. - Continue topic abx, steroid. UTI - Microbiology growing ESBL - Received Doxycycline. - Probable pneumonia - will add Levaquin IV. - Labs reviewed. Leukocytosis noted. We will consider an ID consult tomorrow. Anxiety, acute psychosis. - Will try Zyprexa IM to see if there is any benefit. Diabetes mellitus - Continue Levemir 5 units QHS and sliding scale insulin. Monitor for hypoglycemia. Hypothyroidism - continue levothyroxine 150 g daily. Hypertension - continue Valsartan 80mg QHS. Cardiomyopathy - Continue Carvedilol 25mg BID, Valsartan, Isosorbide. Hx of seizure activity - continue Valproic acid 250mg Q12hrs. Full code. Heparin SQ. Discussed with Patient's family members, RN, Dr. Pedraza (ID). Devi Alejo DO Aug 17, 2016 09:37
[2016-08-17] MEDS ORDERED: VANCOMYCIN INJ 1,750 MG in SODIUM CHLORID 0.9% 500 ML INJ 500 ML IV ONE (10:00)
[2016-08-17] MEDS: PIPERACIL-TAZO 3.375 GM PREMIX 50 ML IV SCH ×3 (10:20→21:12)
[2016-08-17 10:22] LABS: BANDS 22 % (0-6); BASOPHILS 1 % (0-2); EOSINOPHILS 3 % (0-4); METAMYELOCYTES 1 % (0-1); NEUTROPHIL # MANUAL DIFF 7.7 TH/MM3 (1.8-7.7); OVALOCYTES 1+ (NORMAL); PLASMA CELLS 1 % (0-0); PLATELET ESTIMATE SMEAR NORMAL (NORMAL); PLATELET MORPHOLOGY NORMAL (NORMAL); POLYS (SEG NEUTROPHILS) 46 % (16-70); SCAN/DIFF FINAL DIFF MANUAL; WBC DIFF SAMPLE 100
[2016-08-17] MEDS: LIOTHYRONINE SODIUM 5 MCG TAB PO SCH (10:24)
[2016-08-17] MEDS: CARVEDILOL 12.5 MG TAB PO SCH (10:24)
[2016-08-17] MEDS: GABAPENTIN 400 MG CAP PO SCH ×3 (10:24→18:38)
[2016-08-17] MEDS: VALPROIC ACID 250 MG CAP PO SCH ×2 (10:24→21:11)
[2016-08-17] MEDS: ASPIRIN EC 325 MG TABEC PO SCH (10:24)
[2016-08-17] MEDS: METHADONE HCL 10 MG TAB PO SCH ×2 (10:25→21:11)
[2016-08-17 12:00] VITALS: BP 96/54; PULSE 80; RESP 20; TEMP 98; O2SAT 91
--- NOTE | 2016-08-17 13:15 | PD.CAR.PN ---
CVT Progress Note Subjective/Hospital Course: Patient seen in situation discussed In the process of obtaining history I found out that the lady is established patient of . Please consult Dr. Taylor for any vascular issues 08/17/16 I was asked by Dr. Alejo to render second opinion on patient's vascular status and possibilities of salvage versus amputation Have evaluated the patient Full consult to follow Will discuss with Dr. Taylor in detail tomorrow Objective: Vital Signs Date Time Temp Pulse Resp B/P Pulse Ox O2 Delivery O2 Flow Rate FiO2 08/17/16 11:25 20 08/17/16 08:00 99.3 82 20 99/50 94 08/17/16 04:00 97.9 77 20 96/58 95 08/17/16 00:00 98.7 77 18 125/56 95 08/16/16 22:45 Nasal Cannula 2.00 08/16/16 20:00 99.7 72 18 99/55 90 08/16/16 16:00 98.8 68 20 100/50 92 Labs: Laboratory Tests Test 08/17/16 08/17/16 05:11 08:52 White Blood Count 11.1 TH/MM3 (4.0-11.0) Red Blood Count 3.41 MIL/MM3 (4.00-5.30) Hemoglobin 7.8 GM/DL (11.6-15.3) Hematocrit 26.0 % (35.0-46.0) Mean Corpuscular Volume 76.3 FL (80.0-100.0) Mean Corpuscular Hemoglobin 22.9 PG (27.0-34.0) Mean Corpuscular Hemoglobin 30.0 % Concent (32.0-36.0) Red Cell Distribution Width 18.9 % (11.6-17.2) Platelet Count 241 TH/MM3 (150-450) Mean Platelet Volume 7.1 FL (7.0-11.0) Neutrophils (%) (Auto) 62.8 % (16.0-70.0) Lymphocytes (%) (Auto) 22.8 % (9.0-44.0) Monocytes (%) (Auto) 11.8 % (0.0-8.0) Eosinophils (%) (Auto) 2.3 % (0.0-4.0) Basophils (%) (Auto) 0.3 % (0.0-2.0) Neutrophils # (Auto) 7.0 TH/MM3 (1.8-7.7) Lymphocytes # (Auto) 2.5 TH/MM3 (1.0-4.8) Monocytes # (Auto) 1.3 TH/MM3 (0-0.9) Eosinophils # (Auto) 0.3 TH/MM3 (0-0.4) Basophils # (Auto) 0.0 TH/MM3 (0-0.2) CBC Comment AUTO DIFF Differential Total Cells 100 Counted Neutrophils % (Manual) 46 % (16-70) Band Neutrophils % 22 % (0-6) Lymphocytes % 10 % (9-44) Monocytes % 16 % (0-8) Eosinophils % 3 % (0-4) Basophils % 1 % (0-2) Neutrophils # (Manual) 7.7 TH/MM3 (1.8-7.7) Metamyelocytes 1 % (0-1) Differential Comment FINAL DIFF MANUAL Plasma Cells 1 % (0-0) Platelet Estimate NORMAL (NORMAL) Platelet Morphology Comment NORMAL (NORMAL) Ovalocytes 1+ (NORMAL) Sodium Level 141 MEQ/L (136-145) Potassium Level 4.3 MEQ/L (3.5-5.1) Chloride Level 104 MEQ/L (98-107) Carbon Dioxide Level 30.4 MEQ/L (21.0-32.0) Anion Gap 7 MEQ/L (5-15) Blood Urea Nitrogen 22 MG/DL (7-18) Creatinine 0.97 MG/DL (0.50-1.00) Estimat Glomerular Filtration 58 ML/MIN (>89) Rate Random Glucose 106 MG/DL (74-106) Lactic Acid Level 0.8 mmol/L (0.4-2.0) Calcium Level 7.6 MG/DL (8.5-10.1) Total Bilirubin 0.4 MG/DL (0.2-1.0) Aspartate Amino Transf 32 U/L (15-37) (AST/SGOT) Alanine Aminotransferase 17 U/L (10-53) (ALT/SGPT) Alkaline Phosphatase 74 U/L (45-117) Total Protein 5.4 GM/DL (6.4-8.2) Albumin 1.3 GM/DL (3.4-5.0) Result Diagram: 08/17/16 0511 08/17/16 0852 (1) Ulcer of heel and midfoot (2) DM (diabetes mellitus), type 2, uncontrolled w/neurologic complication (3) Hypertension (4) Peripheral vascular occlusive disease (5) Delirium due to another medical condition (6) Impaired mobility and activities of daily living (7) Cardiomyopathy (8) VT (ventricular tachycardia) Clinton Pastrana MD Aug 17, 2016 13:15
[2016-08-17] MEDS: HYDROmorphone HCL PF 1 MG/ML VIAL IV PUSH PRN (15:22)
[2016-08-17 16:00] VITALS: BP 102/50; PULSE 83; RESP 20; TEMP 99.6; O2SAT 93
[2016-08-17] MEDS ORDERED: OLANZapine IM 10 MG VIAL IM PRN (16:15)
--- NOTE | 2016-08-17 18:13 | HHI.IDPN ---
Subjective Subjective Remarks Afebrile. Defervesced since addition of Zosyn IV and levaquin IV. Patient has had low BPs likely prerenal as lactic acid and procalcitonin normal. Sleepy and difficult to arouse and not following commands for me. Recd Dilaudid recently. Daughter feeding her some mostly liquids : concern for aspiration. Rash on her left side of neck, face (sparing the nose, mouth) but involving the ear pinna. Rash on the nape of neck. Rash not following dermatomal patterns. No diarrhea UO 1000 ml when [facility] replaced this am. 125 ml so far. Recd fluid bolus and IVF ongoing per hospitalist. Antibiotics Zosyn IV Vanco IV Levaquin Lines Line sites with no e.o infection. Past Medical History PVD - has CTA last year and has lesions that could be corrected Hypertension Diabetes Cardiomyopathysustained after contrast-induced flash pulmonary edema- latest EF was 30% in March 2016. Obesity Hypothyroidism History of dermoid cyststatus post left oophorectomy 25 years ago Past Surgical History Left oophorectomy for dermoid cyst removal Cholecystectomy Hernia repair Allergies: Coded Allergies: Contrast Media (Verified Allergy, Severe, Flash pulmonary edema , 06/16/16) PEANUTS (Verified Allergy, Severe, rash, 07/03/16) swelling of the tongue Santyl (Verified Allergy, Intermediate, Irritation, 07/09/16) *MDRO Multi-Drug Resistant Organism (Verified Adverse Reaction, Unknown, ) MRSA (leg wound) - 07/31/2016 & 08/14/16 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/2016 ESBL E. coli (urine) - 08/10/2016 Objective . Vital Signs Date Time Temp Pulse Resp B/P Pulse Ox O2 Delivery O2 Flow Rate FiO2 08/17/16 16:00 99.6 83 20 102/50 93 08/17/16 12:00 98.0 80 20 96/54 91 08/17/16 11:25 20 08/17/16 08:00 99.3 82 20 99/50 94 08/17/16 04:00 97.9 77 20 96/58 95 08/17/16 00:00 98.7 77 18 125/56 95 08/16/16 22:45 Nasal Cannula 2.00 08/16/16 20:00 99.7 72 18 99/55 90 08/16/16 08/16/16 08/17/16 15:00 23:00 07:00 Intake Total 480 ml 120 ml 120 ml Balance 480 ml 120 ml 120 ml Intake Oral 480 ml 120 ml 120 ml # Voids 1 1 0 # Bowel Movements 1 0 0 . Laboratory Tests Test 08/16/16 08/17/16 12:06 05:11 White Blood Count 17.2 TH/MM3 11.1 TH/MM3 Red Blood Count 3.74 MIL/MM3 3.41 MIL/MM3 Hemoglobin 8.5 GM/DL 7.8 GM/DL Hematocrit 27.8 % 26.0 % Mean Corpuscular Volume 74.3 FL 76.3 FL Mean Corpuscular Hemoglobin 22.6 PG 22.9 PG Mean Corpuscular Hemoglobin 30.5 % 30.0 % Concent Red Cell Distribution Width 18.3 % 18.9 % Platelet Count 272 TH/MM3 241 TH/MM3 Mean Platelet Volume 7.5 FL 7.1 FL Neutrophils (%) (Auto) 72.5 % 62.8 % Lymphocytes (%) (Auto) 15.4 % 22.8 % Monocytes (%) (Auto) 9.8 % 11.8 % Eosinophils (%) (Auto) 1.8 % 2.3 % Basophils (%) (Auto) 0.5 % 0.3 % Neutrophils # (Auto) 12.5 TH/MM3 7.0 TH/MM3 Lymphocytes # (Auto) 2.6 TH/MM3 2.5 TH/MM3 Monocytes # (Auto) 1.7 TH/MM3 1.3 TH/MM3 Eosinophils # (Auto) 0.3 TH/MM3 0.3 TH/MM3 Basophils # (Auto) 0.1 TH/MM3 0.0 TH/MM3 CBC Comment AUTO DIFF AUTO DIFF Differential Total Cells 100 100 Counted Neutrophils % (Manual) 58 % 46 % Band Neutrophils % 12 % 22 % Lymphocytes % 19 % 10 % Monocytes % 10 % 16 % Neutrophils # (Manual) 12.2 TH/MM3 7.7 TH/MM3 Metamyelocytes 1 % 1 % Differential Comment FINAL DIFF FINAL DIFF MANUAL MANUAL Platelet Estimate NORMAL NORMAL Platelet Morphology Comment NORMAL NORMAL Hematology Comments Eosinophils % 3 % Basophils % 1 % Plasma Cells 1 % Ovalocytes 1+ Laboratory Tests Test 08/16/16 08/17/16 12:06 08:52 Sodium Level 142 MEQ/L 141 MEQ/L Potassium Level 4.8 MEQ/L 4.3 MEQ/L Chloride Level 108 MEQ/L 104 MEQ/L Carbon Dioxide Level 28.3 MEQ/L 30.4 MEQ/L Anion Gap 6 MEQ/L 7 MEQ/L Blood Urea Nitrogen 17 MG/DL 22 MG/DL Creatinine 0.75 MG/DL 0.97 MG/DL Estimat Glomerular Filtration 78 ML/MIN 58 ML/MIN Rate Random Glucose 78 MG/DL 106 MG/DL Calcium Level 7.8 MG/DL 7.6 MG/DL Lactic Acid Level 0.8 mmol/L Total Bilirubin 0.4 MG/DL Aspartate Amino Transf 32 U/L (AST/SGOT) Alanine Aminotransferase 17 U/L (ALT/SGPT) Alkaline Phosphatase 74 U/L Total Protein 5.4 GM/DL Albumin 1.3 GM/DL Procalcitonin 0.10 ng/mL Imaging Chest X-Ray 07/20/16 0000 Signed Impressions: Service Date/Time: Wednesday, July 20, 2016 12:38 - CONCLUSION: Mild left base consolidation developing. Alfredo Sneed MD Brain MRI 07/20/16 0000 Signed Impressions: Service Date/Time: Wednesday, July 20, 2016 09:15 - CONCLUSION: No acute intracranial abnormality. Moderately severe chronic white matter changes, nonspecific but most likely small vessel ischemia. Alfredo Sneed MD Head CT 07/19/16 0000 Signed Impressions: Service Date/Time: Tuesday, July 19, 2016 09:58 - CONCLUSION: No acute intracranial findings. João Otoole MD Foot X-Ray 07/16/16 0000 Signed Impressions: Service Date/Time: Saturday, July 16, 2016 17:34 - CONCLUSION: 1. Nonspecific soft tissue swelling. No acute bone destruction demonstrated. 2. Mild talonavicular and navicular/cuneiform degenerative changes. 3. Second through fifth hammertoe. 4. Moderate-sized heel spur. Alfredo Sneed MD Physical Exam GENERAL: Obese, CF. SKIN: Rash on her left side of neck, face (sparing the nose, mouth) but involving the ear pinna. Rash on the nape of neck. Rash not following dermatomal patterns. HEENT: [place] conjunctivae. No icterus, moist mucosa NECK: Trachea midline. Supple, nontender, no meningeal signs. CARDIOVASCULAR: HS audible. No murmur appreciated. Decreased BS at bases RESPIRATORY: Clear to auscultation. Breath sounds equal bilaterally. GASTROINTESTINAL: Abdomen soft, non-tender, nondistended. Obese. MUSCULOSKELETAL: Bilateral extremities with ulcers, has slough,edema better, has dry gangrene L 2nd and 3rd toes NEUROLOGICAL: lethargic, moves all extremities. Psych: could not be assessed. IV line sites with no e.o infection. Assessment & Plan Remarks Penumonia: likely aspiration in health care setting. ESBL in urine likely colonization as clinically WBC down and temps down without it being treated. Will repeat UA from [facility]. Dry gangrene 2 toes L foot PVD, S/P revascularization Encephalopathy, prob pain meds a big factor, ? pain meds related. Cardiomyopathy DM with neuropathy. Hypothyroidism Chronic narcotic use. Anxiety and Depression. PLAN Continue Zosyn IV Continue Vanco IV (target 15-20 for Pneumonia) Continue Levaquin. repeat UA from [facility]. Follow C/S Vascular surgery to reevaluate Monitor temps Monitor progress d/w patient's daughter and d.w about skin rash, hypotension, IBF, Urine output. Also discussed clinical response to current regimen and plan for the day. Charisse Pedraza MD Aug 17, 2016 18:13 Charisse Pedraza MD Aug 17, 2016 18:13
[2016-08-17 20:00] VITALS: BP 100/52; PULSE 80; RESP 20; TEMP 99.2; O2SAT 93
[2016-08-17] MEDS: INSULIN DETEMIR 100 UNITS/ML VIAL SQ SCH (21:00)
[2016-08-17] MEDS: SODIUM CHLORIDE 0.9% FLUSH 5 ML FLUSH IV FLUSH SCH (21:00)
[2016-08-17] MEDS: QUEtiapine FUMARATE 25 MG TAB PO SCH (21:10)
[2016-08-17] MEDS: VALSARTAN 80 MG TAB PO SCH (21:10)
[2016-08-17] MEDS: MELATONIN 5 MG TAB PO SCH (21:11)
[2016-08-17] MEDS: VANCOMYCIN 1,000 MG/NS 250 ML IV SCH ×2 (21:12)
[2016-08-17 21:51] LABS: BACTERIA, URINE RARE /hpf; BLOOD, URINE TRACE (NEG); COMMENT (UR) CULTURE INDICATED; CULTURE IF INDICATED CULTURE INDICATED; GLUCOSE,URINE NEG (NEG); KETONE, URINE NEG (NEG); MUCUS URINE FEW /lpf (OCC); NITRITE,URINE NEG (NEG); SQUAMOUS EPITHELIAL CELL URINE 1 /hpf (0-5); URINE COLOR YELLOW (YELLW/STRAW)
[2016-08-18] VITALS (7 sets, daily range): BP systolic 88–113; BP diastolic 47–57; PULSE 69–77; RESP 18–22; TEMP 98–101.8; O2SAT 92–97
[2016-08-18] MEDS: CHLORHEXIDINE GLUCONATE 2 % 1 PACK (2 CLOTHS) TOP SCH (03:18)
[2016-08-18] MEDS: PIPERACIL-TAZO 3.375 GM PREMIX 50 ML IV SCH ×2 (03:28→09:15)
[2016-08-18] MEDS: HYDROCORTISONE 1% CREAM 30 GM TOPICAL SCH ×3 (03:29→20:53)
[2016-08-18] MEDS: INSULIN ASPART SUPPLEMENTAL SCALE SQ SCH ×4 (05:11→21:00)
[2016-08-18] MEDS: HEPARIN SODIUM - SQ 10,000 UNITS/ML VIAL SQ SCH ×3 (05:12→20:55)
[2016-08-18] MEDS: ISOSORBIDE DINITRATE 5 MG TAB PO SCH ×3 (05:14→20:55)
[2016-08-18] MEDS: LEVOTHYROXINE SODIUM 150 MCG TAB PO SCH (05:14)
[2016-08-18] MEDS: MUPIROCIN 2% OINT 22 GM TUBE TOPICAL SCH ×2 (09:00→21:00)
[2016-08-18] MEDS: LACTOBACILLUS ACIDOPHILUS TAB PO SCH ×6 (09:00→16:30)
[2016-08-18] MEDS ORDERED: LEVOFLOXACIN 750 MG PREMIX INJ 150 ML IV SCH ×2 (09:00)
[2016-08-18 09:02] LABS: AUTOMATED NEUTROPHIL # 10.9 TH/MM3 (1.8-7.7); BASOPHIL # 0.1 TH/MM3 (0-0.2); BASOPHIL % 0.4 % (0.0-2.0); EOSINOPHIL # 0.2 TH/MM3 (0-0.4); EOSINOPHIL % 1.6 % (0.0-4.0); HEMATOCRIT 23.1 % (35.0-46.0); LYMPH % 12.4 % (9.0-44.0); LYMPHOCYTE # 1.7 TH/MM3 (1.0-4.8); MEAN CELL VOLUME 76.2 FL (80.0-100.0); MEAN CORPUSCULAR HEMOGLOBIN 23.1 PG (27.0-34.0); MEAN CORPUSCULAR HGB CONC 30.3 % (32.0-36.0); NEUT % 77.6 % (16.0-70.0); PLATELET COUNT 236 TH/MM3 (150-450); RED BLOOD COUNT 3.03 MIL/MM3 (4.00-5.30); RED CELL DISTRIBUTION WIDTH 18.8 % (11.6-17.2)
[2016-08-18 09:06] LABS: HEMO FLAGS AUTO DIFF
[2016-08-18] MEDS: VALPROIC ACID 250 MG CAP PO SCH ×2 (09:15→20:54)
[2016-08-18] MEDS: ASPIRIN EC 325 MG TABEC PO SCH (09:16)
[2016-08-18] MEDS: METHADONE HCL 10 MG TAB PO SCH ×2 (09:16→21:00)
[2016-08-18] MEDS: LIOTHYRONINE SODIUM 5 MCG TAB PO SCH (09:16)
[2016-08-18] MEDS: SODIUM CHLORIDE 0.9% FLUSH 5 ML FLUSH IV FLUSH SCH ×2 (09:17→20:53)
[2016-08-18] MEDS: GABAPENTIN 400 MG CAP PO SCH ×2 (09:17→12:34)
[2016-08-18 09:24] LABS: BICARBONATE 28.8 MEQ/L (21.0-32.0); POTASSIUM 4.1 MEQ/L (3.5-5.1)
[2016-08-18 09:39] LABS: CALCIUM-PROTEIN CORRECTED 8.3 MG/DL (8.5-10.1)
[2016-08-18 09:46] LABS: BANDS 14 % (0-6); METAMYELOCYTES 1 % (0-1); NEUTROPHIL # MANUAL DIFF 12.5 TH/MM3 (1.8-7.7); POLYS (SEG NEUTROPHILS) 74 % (16-70); TOXIC GRANULATION 1+ (NORMAL); WBC DIFF SAMPLE 100
[2016-08-18 09:47] LABS: PLATELET ESTIMATE SMEAR NORMAL (NORMAL); PLATELET MORPHOLOGY NORMAL (NORMAL); SCAN/DIFF FINAL DIFF MANUAL
[2016-08-18] MEDS: VANCOMYCIN 1,000 MG/NS 250 ML IV SCH ×2 (12:33)
[2016-08-18] MEDS ORDERED: ASP: Documented ESBL, MDR A baumannii or P. aeruginosa XX PRN (13:00)
[2016-08-18] MEDS ORDERED: MISCELLANEOUS PHARMACY INFORMATION XX PRN (13:00)
--- NOTE | 2016-08-18 14:41 | HHI.IDPN ---
Subjective Subjective Remarks is a 61 y/o CF with PVD s/p revascularization. Afebrile. Patient has had low BPs likely prerenal as lactic acid and procalcitonin normal. Rash on her left side of neck, face (sparing the nose, mouth) but involving the ear pinna. Rash on the nape of neck. Rash not following dermatomal patterns. No diarrhea UO low despite IVF. Poor oral intake. Nutrition is a concern. d/w . Recd fluid bolus and IVF ongoing per hospitalist. Antibiotics Zosyn IV Vanco IV Levaquin Lines Line sites with no e.o infection. Past Medical History PVD - has CTA last year and has lesions that could be corrected Hypertension Diabetes Cardiomyopathysustained after contrast-induced flash pulmonary edema- latest EF was 30% in March 2016. Obesity Hypothyroidism History of dermoid cyststatus post left oophorectomy 25 years ago Past Surgical History Left oophorectomy for dermoid cyst removal Cholecystectomy Hernia repair Allergies: Coded Allergies: Contrast Media (Verified Allergy, Severe, Flash pulmonary edema , 06/16/16) PEANUTS (Verified Allergy, Severe, rash, 07/03/16) swelling of the tongue Santyl (Verified Allergy, Intermediate, Irritation, 07/09/16) *MDRO Multi-Drug Resistant Organism (Verified Adverse Reaction, Unknown, ) MRSA (leg wound) - 07/31/2016 & 08/14/16 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/2016 ESBL E. coli (urine) - 08/10/2016 Objective . Vital Signs Date Time Temp Pulse Resp B/P Pulse Ox O2 Delivery O2 Flow Rate FiO2 08/18/16 12:00 99.5 71 20 113/57 97 08/18/16 08:00 101.8 74 20 108/55 92 08/18/16 08:00 Nasal Cannula 2.00 08/18/16 04:00 98.0 77 22 94/52 95 08/18/16 00:00 99.6 76 22 96/49 93 08/17/16 21:15 Nasal Cannula 2.00 08/17/16 20:00 99.2 80 20 100/52 93 08/17/16 16:00 99.6 83 20 102/50 93 08/17/16 15:52 20 08/17/16 08/17/16 08/18/16 15:00 23:00 07:00 Intake Total 0 ml 2050 ml Output Total 875 ml 150 ml Balance -875 ml 1900 ml Intake Oral 0 ml 50 ml IV Total 2000 ml Output Urine Total 875 ml 150 ml # Bowel Movements 1 1 . Laboratory Tests Test 08/17/16 08/18/16 05:11 08:27 White Blood Count 11.1 TH/MM3 14.0 TH/MM3 Red Blood Count 3.41 MIL/MM3 3.03 MIL/MM3 Hemoglobin 7.8 GM/DL 7.0 GM/DL Hematocrit 26.0 % 23.1 % Mean Corpuscular Volume 76.3 FL 76.2 FL Mean Corpuscular Hemoglobin 22.9 PG 23.1 PG Mean Corpuscular Hemoglobin 30.0 % 30.3 % Concent Red Cell Distribution Width 18.9 % 18.8 % Platelet Count 241 TH/MM3 236 TH/MM3 Mean Platelet Volume 7.1 FL 6.8 FL Neutrophils (%) (Auto) 62.8 % 77.6 % Lymphocytes (%) (Auto) 22.8 % 12.4 % Monocytes (%) (Auto) 11.8 % 8.0 % Eosinophils (%) (Auto) 2.3 % 1.6 % Basophils (%) (Auto) 0.3 % 0.4 % Neutrophils # (Auto) 7.0 TH/MM3 10.9 TH/MM3 Lymphocytes # (Auto) 2.5 TH/MM3 1.7 TH/MM3 Monocytes # (Auto) 1.3 TH/MM3 1.1 TH/MM3 Eosinophils # (Auto) 0.3 TH/MM3 0.2 TH/MM3 Basophils # (Auto) 0.0 TH/MM3 0.1 TH/MM3 CBC Comment AUTO DIFF AUTO DIFF Differential Total Cells 100 100 Counted Neutrophils % (Manual) 46 % 74 % Band Neutrophils % 22 % 14 % Lymphocytes % 10 % 5 % Monocytes % 16 % 6 % Eosinophils % 3 % Basophils % 1 % Neutrophils # (Manual) 7.7 TH/MM3 12.5 TH/MM3 Metamyelocytes 1 % 1 % Differential Comment FINAL DIFF FINAL DIFF MANUAL MANUAL Plasma Cells 1 % Platelet Estimate NORMAL NORMAL Platelet Morphology Comment NORMAL NORMAL Ovalocytes 1+ Toxic Granulation 1+ Laboratory Tests Test 08/17/16 08/18/16 08:52 08:27 Sodium Level 141 MEQ/L 144 MEQ/L Potassium Level 4.3 MEQ/L 4.1 MEQ/L Chloride Level 104 MEQ/L 108 MEQ/L Carbon Dioxide Level 30.4 MEQ/L 28.8 MEQ/L Anion Gap 7 MEQ/L 7 MEQ/L Blood Urea Nitrogen 22 MG/DL 23 MG/DL Creatinine 0.97 MG/DL 1.02 MG/DL Estimat Glomerular Filtration 58 ML/MIN 55 ML/MIN Rate Random Glucose 106 MG/DL 103 MG/DL Lactic Acid Level 0.8 mmol/L Calcium Level 7.6 MG/DL 7.2 MG/DL Total Bilirubin 0.4 MG/DL Aspartate Amino Transf 32 U/L (AST/SGOT) Alanine Aminotransferase 17 U/L (ALT/SGPT) Alkaline Phosphatase 74 U/L Total Protein 5.4 GM/DL 5.1 GM/DL Albumin 1.3 GM/DL Procalcitonin 0.10 ng/mL Protein Corrected Calcium 8.3 MG/DL Microbiology Date/Time Procedure Status Source Growth 08/17/16 21:00 Urine Culture - Preliminary Resulted Urine Catheterized Urine NO GROWTH IN 24 HOURS. Imaging Chest X-Ray 07/20/16 0000 Signed Impressions: Service Date/Time: Wednesday, July 20, 2016 12:38 - CONCLUSION: Mild left base consolidation developing. Alfredo Sneed MD Brain MRI 07/20/16 0000 Signed Impressions: Service Date/Time: Wednesday, July 20, 2016 09:15 - CONCLUSION: No acute intracranial abnormality. Moderately severe chronic white matter changes, nonspecific but most likely small vessel ischemia. Alfredo Sneed MD Head CT 07/19/16 0000 Signed Impressions: Service Date/Time: Tuesday, July 19, 2016 09:58 - CONCLUSION: No acute intracranial findings. João Otoole MD Foot X-Ray 07/16/16 0000 Signed Impressions: Service Date/Time: Saturday, July 16, 2016 17:34 - CONCLUSION: 1. Nonspecific soft tissue swelling. No acute bone destruction demonstrated. 2. Mild talonavicular and navicular/cuneiform degenerative changes. 3. Second through fifth hammertoe. 4. Moderate-sized heel spur. Alfredo Sneed MD Physical Exam GENERAL: Obese, CF. SKIN: Rash on her left side of neck, face (sparing the nose, mouth) but involving the ear pinna. Rash on the nape of neck. Rash not following dermatomal patterns. HEENT: [place] conjunctivae. No icterus, moist mucosa NECK: Trachea midline. Supple, nontender, no meningeal signs. CARDIOVASCULAR: HS audible. No murmur appreciated. Decreased BS at bases RESPIRATORY: Clear to auscultation. Breath sounds equal bilaterally. GASTROINTESTINAL: Abdomen soft, non-tender, nondistended. Obese. MUSCULOSKELETAL: Bilateral extremities with ulcers, has slough,edema better, has dry gangrene L 2nd and 3rd toes NEUROLOGICAL: lethargic, moves all extremities. Psych: could not be assessed. IV line sites with no e.o infection. Assessment & Plan Remarks Penumonia: likely aspiration in health care setting. ESBL in urine ? infection. UA from cath reflexed to culture. Continues to be hypotensive. Dry gangrene 2 toes L foot PVD, S/P revascularization Encephalopathy, prob pain meds a big factor, ? pain meds related. Cardiomyopathy DM with neuropathy. Hypothyroidism Chronic narcotic use. Anxiety and Depression. PLAN DC Zosyn IV Start Meropenem IV (ASP: ESBL: ongoing concern for infection in urine or wounds) DC Vanco IV Continue Levaquin. Monitor temps Monitor progress dBaileew about hypotension, IVF, Urine output. Also discussed clinical response to current regimen and plan for the day. Charisse Pedraza MD Aug 18, 2016 14:41
[2016-08-18] MEDS: MEROPENEM INJ 500 MG in SODIUM CHLORIDE 0.9% INJ 100 ML IV SCH ×2 (14:43→20:56)
[2016-08-18] MEDS: SODIUM CHLOR 0.9% 1000 ML INJ 1,000 ML IV SCH ×2 (15:51→22:10)
--- NOTE | 2016-08-18 16:16 | HHI.PR ---
Subjective Remarks Follow up for lower ext gangrene, PVD, wound, severe neuropathic pain. Patient calm able to awake to voice. T max 101.8 Objective Vitals Vital Signs Date Time Temp Pulse Resp B/P Pulse Ox O2 Delivery O2 Flow Rate FiO2 08/18/16 12:00 99.5 71 20 113/57 97 08/18/16 08:00 101.8 74 20 108/55 92 08/18/16 08:00 Nasal Cannula 2.00 08/18/16 04:00 98.0 77 22 94/52 95 08/18/16 00:00 99.6 76 22 96/49 93 08/17/16 21:15 Nasal Cannula 2.00 08/17/16 20:00 99.2 80 20 100/52 93 08/17/16 16:00 99.6 83 20 102/50 93 08/17/16 15:52 20 I/O 08/17/16 08/17/16 08/17/16 08/18/16 08/18/16 08/18/16 07:00 15:00 23:00 07:00 15:00 23:00 Intake Total 120 ml 0 ml 2050 ml 494 ml Output Total 875 ml 150 ml Balance 120 ml -875 ml 1900 ml 494 ml Intake Oral 120 ml 0 ml 50 ml IV Total 2000 ml 494 ml Output Urine Total 875 ml 150 ml # Voids 0 # Bowel Movements 0 1 1 Result Diagram: 08/18/1682608/18/16826 Objective Remarks GENERAL: 61 year old female patient resting able to awake to voice, appears comfortable SKIN: Warm and dry, HEAD: Normocephalic. EYES: No scleral icterus. No injection or drainage. NECK: Supple, trachea midline. No JVD or lymphadenopathy. CARDIOVASCULAR: Regular rate and rhythm without murmurs, gallops, or rubs. RESPIRATORY: Breath sounds equal bilaterally. No accessory muscle use. GASTROINTESTINAL: Abdomen soft, non-tender, nondistended. MUSCULOSKELETAL: Left foot has multiple toes with gangrenous changes. Right foot with digit 3 gangrenous changes. Both lower ext above ankle wrapped in dressing. BACK: Nontender without obvious deformity. No CVA tenderness. Procedures 08/08/2016 PROCEDURE 1. Selective right lower extremity arteriogram. 2. Balloon angioplasty with a 4 mm x 2200 mm and then a 5 x 200 mm Medtronic angioplasty balloon of the right superficial femoral and proximal popliteal artery. 07/31/2016 Excision and debridement of both legs, extensive necrotic wounds approximately 30 x 25 cm area on each side, total 1000 to 1100 cm square, down to the subcutaneous tissue and tendon on the left side. A/P Problem List: (1) Cellulitis of left lower extremity ICD Code: L03.116 Status: Acute (2) Delirium due to another medical condition ICD Code: F05 Status: Acute (3) Neuropathic pain ICD Code: M79.2 Status: Acute Assessment and Plan Pt. is 61-year-old female, with multiple admissions, with history of cellulitis of legs, severe PVD, diabetes and cardiomyopathy EF of 30% was at the rehabilitation facility when she became more altered lethargic and hypoxic. Rapid response team was called and transferred patient to ICU. In the ICU patient remains confused and lethargic responsive to pain with a stable blood pressure and saturation of 100% on 40% face mask. Patient has improved and was transferred to regular medical/ surgical unit. Chronic lower ext wound Peripheral vascular disease Severe neuropathic pain - Plastic surgery Dr. Pepe recommended wound care/hyperbaric treatments.Input appreciated, USP management of the leg wounds - to get good granulations and then skin graft. The tendon on the left leg may take a long time to get covered with granulations - also may be partly lost. May follow with plastics in outpatient. Plastic surgery signed off. - Continue [place], Dilaudid PRN for pain. - Gabapentin to 400mg TID. - Continue low dose Seroquel, Methadone. - Discussed with CM regarding transfer. Both [facility] and [facility] declined since hyperbaric treatment would be outpatient for them as well. - Consulted Dr. Dee for a second opinion- Awaiting recommendation from Dr. Dee and Dr. Dr. Taylor - We will continue abx per ID recommending Meropenem 500mg Q8H and continue Levaquin. DC Zosyn and DC Vanco - Left neck rash - could be contact dermatitis- improving - Continue topic abx, steroid. UTI - Microbiology growing ESBL - Received Doxycycline - Probable pneumonia - in the healthcare setting. - ID following appreciate their assistance -Anxiety, acute psychosis. - Will try Zyprexa IM to see if there is any benefit. stop date 08/19/16 -Diabetes mellitus - Continue Levemir 5 units QHS and sliding scale insulin. Monitor for hypoglycemia. -Hypothyroidism - continue levothyroxine 150 g daily. -Hypertension - continue Valsartan 80mg QHS. -Cardiomyopathy - Continue Carvedilol 25mg BID, Valsartan, Isosorbide. -Hx of seizure activity - continue Valproic acid 250mg Q12hrs. -Anemia hgb 7.0 - recheck H&H --> 6.9. Will transfuse two units of PRBCs. - CBC in AM - MCV low will check iron panel - low urine output BUN 23 creatinine 1.02 possible dehydration - NS at 150 ml/hour - BMP in AM - poor PO intake - consult dietitian for calorie count, may require tube feeding Full code. Heparin SQ. Discussed with Patient's family members, RN, Dr. Pedraza (ID). Written by Tahira Loera, acting as scribe for Dr. Alejo on 08/18/16 at 16 :16. All or portions of this note were transcribed by SUSAN Baltazar. I, Dr. Gary Alejo personally performed the history, physical exam, and medical decision making; and confirmed the accuracy of the information in the transcribed note. Authenticated by Dr. Gary Alejo on 08/18/16 at 17:32. Tahira Loera Aug 18, 2016 4:16 pm Devi Alejo DO Aug 18, 2016 5:33 pm
[2016-08-18] MEDS: GABAPENTIN 300 MG CAP PO SCH (16:29)
[2016-08-18 16:36] LABS: HEMATOCRIT 23.1 % (35.0-46.0)
[2016-08-18] MEDS ORDERED: diphenhydrAMINE HCL 25 MG CAP PO PRN (16:45)
[2016-08-18] MEDS ORDERED: ACETAMINOPHEN 325 MG TAB PO PRN (16:45)
[2016-08-18] MEDS ORDERED: SODIUM CHLOR 0.9% 250 ML INJ 250 ML IV ONE (16:45)
--- NOTE | 2016-08-18 18:43 | PD.CAR.PN ---
CVT Progress Note Subjective/Hospital Course: Patient seen in situation discussed In the process of obtaining history I found out that the lady is established patient of . Please consult Dr. Taylor for any vascular issues 08/17/16 I was asked by Dr. Alejo to render second opinion on patient's vascular status and possibilities of salvage versus amputation Have evaluated the patient Full consult to follow Will discuss with Dr. Taylor in detail tomorrow 08/18/16 Patient with peripheral vascular disease and debridements taking care of by team of vascular surgery plastic surgery and internal medicine. I discussed the case with Dr. Taylor At this point it is quite appropriate to continue current care as long plastic surgery believes that coverage of these wounds is possible and the salvage is a goal Patient really doesn't want to lose her leg and therefore current course is appropriate Should be current conservative therapy with aggressive debridements and grafting fail left above-knee amputation is always an option and should be reserved for the future as the final option Agree with current approach Thanks J Objective: Vital Signs Date Time Temp Pulse Resp B/P Pulse Ox O2 Delivery O2 Flow Rate FiO2 08/18/16 16:00 98.4 69 20 93/50 97 08/18/16 12:00 99.5 71 20 113/57 97 08/18/16 08:00 101.8 74 20 108/55 92 08/18/16 08:00 Nasal Cannula 2.00 08/18/16 04:00 98.0 77 22 94/52 95 08/18/16 00:00 99.6 76 22 96/49 93 08/17/16 21:15 Nasal Cannula 2.00 08/17/16 20:00 99.2 80 20 100/52 93 Labs: Laboratory Tests Test 08/18/16 08/18/16 08:27 16:13 White Blood Count 14.0 TH/MM3 (4.0-11.0) Red Blood Count 3.03 MIL/MM3 (4.00-5.30) Hemoglobin 7.0 GM/DL 6.9 GM/DL (11.6-15.3) (11.6-15.3) Hematocrit 23.1 % 23.1 % (35.0-46.0) (35.0-46.0) Mean Corpuscular Volume 76.2 FL (80.0-100.0) Mean Corpuscular Hemoglobin 23.1 PG (27.0-34.0) Mean Corpuscular Hemoglobin 30.3 % Concent (32.0-36.0) Red Cell Distribution Width 18.8 % (11.6-17.2) Platelet Count 236 TH/MM3 (150-450) Mean Platelet Volume 6.8 FL (7.0-11.0) Neutrophils (%) (Auto) 77.6 % (16.0-70.0) Lymphocytes (%) (Auto) 12.4 % (9.0-44.0) Monocytes (%) (Auto) 8.0 % (0.0-8.0) Eosinophils (%) (Auto) 1.6 % (0.0-4.0) Basophils (%) (Auto) 0.4 % (0.0-2.0) Neutrophils # (Auto) 10.9 TH/MM3 (1.8-7.7) Lymphocytes # (Auto) 1.7 TH/MM3 (1.0-4.8) Monocytes # (Auto) 1.1 TH/MM3 (0-0.9) Eosinophils # (Auto) 0.2 TH/MM3 (0-0.4) Basophils # (Auto) 0.1 TH/MM3 (0-0.2) CBC Comment AUTO DIFF Differential Total Cells 100 Counted Neutrophils % (Manual) 74 % (16-70) Band Neutrophils % 14 % (0-6) Lymphocytes % 5 % (9-44) Monocytes % 6 % (0-8) Neutrophils # (Manual) 12.5 TH/MM3 (1.8-7.7) Metamyelocytes 1 % (0-1) Differential Comment FINAL DIFF MANUAL Toxic Granulation 1+ (NORMAL) Platelet Estimate NORMAL (NORMAL) Platelet Morphology Comment NORMAL (NORMAL) Sodium Level 144 MEQ/L (136-145) Potassium Level 4.1 MEQ/L (3.5-5.1) Chloride Level 108 MEQ/L (98-107) Carbon Dioxide Level 28.8 MEQ/L (21.0-32.0) Anion Gap 7 MEQ/L (5-15) Blood Urea Nitrogen 23 MG/DL (7-18) Creatinine 1.02 MG/DL (0.50-1.00) Estimat Glomerular Filtration 55 ML/MIN (>89) Rate Random Glucose 103 MG/DL (74-106) Calcium Level 7.2 MG/DL (8.5-10.1) Protein Corrected Calcium 8.3 MG/DL (8.5-10.1) Total Protein 5.1 GM/DL (6.4-8.2) Result Diagram: 08/18/16 1613 08/18/16 0827 (1) Ulcer of heel and midfoot (2) DM (diabetes mellitus), type 2, uncontrolled w/neurologic complication (3) Hypertension (4) Peripheral vascular occlusive disease (5) Delirium due to another medical condition (6) Impaired mobility and activities of daily living (7) Cardiomyopathy (8) VT (ventricular tachycardia) Clinton Pastrana MD Aug 18, 2016 18:43
[2016-08-18] MEDS: MELATONIN 5 MG TAB PO SCH (20:54)
[2016-08-18] MEDS: QUEtiapine FUMARATE 25 MG TAB PO SCH (20:59)
[2016-08-18] MEDS: VALSARTAN 80 MG TAB PO SCH (21:00)
[2016-08-18] MEDS: INSULIN DETEMIR 100 UNITS/ML VIAL SQ SCH (21:00)
[2016-08-18] MEDS ORDERED: PHARMACY ORDERED LAB XX ONE (21:45)
[2016-08-19] VITALS (11 sets, daily range): BP systolic 90–111; BP diastolic 51–56; PULSE 64–77; RESP 14–18; TEMP 98–99.9; O2SAT 96–98
[2016-08-19 01:34] LABS: TRANSFERRIN IRON PROFILE 49 MG/DL (200-360)
[2016-08-19] MEDS: HYDROCORTISONE 1% CREAM 30 GM TOPICAL SCH ×3 (04:00→21:59)
[2016-08-19] MEDS: CHLORHEXIDINE GLUCONATE 2 % 1 PACK (2 CLOTHS) TOP SCH (04:00)
[2016-08-19] MEDS: SODIUM CHLOR 0.9% 1000 ML INJ 1,000 ML IV SCH ×3 (04:50→17:44)
[2016-08-19] MEDS: HEPARIN SODIUM - SQ 10,000 UNITS/ML VIAL SQ SCH ×3 (06:22→21:58)
[2016-08-19] MEDS: LEVOTHYROXINE SODIUM 150 MCG TAB PO SCH (06:22)
[2016-08-19] MEDS: ISOSORBIDE DINITRATE 5 MG TAB PO SCH ×3 (06:22→21:57)
[2016-08-19] MEDS: INSULIN ASPART SUPPLEMENTAL SCALE SQ SCH ×4 (06:22→22:00)
[2016-08-19] MEDS: MEROPENEM INJ 500 MG in SODIUM CHLORIDE 0.9% INJ 100 ML IV SCH ×3 (06:25→23:14)
[2016-08-19] MEDS: ASPIRIN EC 325 MG TABEC PO SCH (08:48)
[2016-08-19] MEDS: GABAPENTIN 300 MG CAP PO SCH ×3 (08:48→17:35)
[2016-08-19] MEDS: LIOTHYRONINE SODIUM 5 MCG TAB PO SCH (08:49)
[2016-08-19] MEDS: METHADONE HCL 10 MG TAB PO SCH ×2 (08:49→21:58)
[2016-08-19] MEDS: SODIUM CHLORIDE 0.9% FLUSH 5 ML FLUSH IV FLUSH SCH ×2 (08:49→21:59)
[2016-08-19] MEDS: LACTOBACILLUS ACIDOPHILUS TAB PO SCH ×6 (08:49→17:35)
[2016-08-19] MEDS: VALPROIC ACID 250 MG CAP PO SCH ×2 (08:50→21:57)
[2016-08-19] MEDS: MUPIROCIN 2% OINT 22 GM TUBE TOPICAL SCH ×2 (09:00→21:00)
[2016-08-19] MEDS: LINEZOLID 600 MG PREMIX 300 ML IV SCH ×2 (09:18→21:57)
--- NOTE | 2016-08-19 10:58 | HHI.PR ---
Subjective Remarks Follow up for lower ext gangrene, PVD, wound, severe neuropathic pain. Patient is resting better today. She did complain of pain a few times. Daughter at bedside. No fever, chills. Patient has anasarca. Hgb was below 7 and patient received 2 units of PRBCs. Objective Vitals Vital Signs Date Time Temp Pulse Resp B/P Pulse Ox O2 Delivery O2 Flow Rate FiO2 08/19/16 09:27 98 Nasal Cannula 2.00 08/19/16 08:54 98.8 65 17 110/55 97 08/19/16 08:02 98.3 65 18 97/51 97 08/19/16 05:41 99.3 64 16 91/53 98 08/19/16 05:10 99.9 68 14 90/54 98 08/19/16 03:55 99.2 75 18 96/52 98 08/19/16 02:26 99.5 73 14 98/51 98 08/19/16 01:38 98.5 73 18 106/53 97 08/18/16 22:00 99.3 75 18 94/47 93 08/18/16 20:05 99.1 77 18 88/51 95 08/18/16 19:30 Nasal Cannula 2.00 08/18/16 16:00 98.4 69 20 93/50 97 08/18/16 12:00 99.5 71 20 113/57 97 I/O 08/18/16 08/18/16 08/18/16 08/19/16 08/19/16 08/19/16 06:59 14:59 22:59 06:59 14:59 22:59 Intake Total 494 ml 240 ml 100 ml Output Total 100 ml 450 ml 250 ml Balance 394 ml -210 ml -150 ml Intake Oral 0 ml 240 ml 100 ml IV Total 494 ml Output Urine Total 100 ml 450 ml 250 ml # Bowel Movements 0 0 0 Result Diagram: 08/18/16 1613 08/18/16 0827 Imaging Last Impressions Chest X-Ray 08/19/16 0000 Signed Impressions: Service Date/Time: Friday, August 19, 2016 18:46 - CONCLUSION: 1. Bibasilar streakiness consistent with atelectasis and/or infiltrates. 2. Cardiomegaly. 3. Poor inspiratory result. Shamar Banuelos MD Upper Extremity Ultrasound 07/28/16 0000 Signed Impressions: Service Date/Time: Thursday, July 28, 2016 14:34 - CONCLUSION: No DVT is identified within the right upper extremity. Alfredo Eng MD Brain MRI 07/20/16 0000 Signed Impressions: Service Date/Time: Wednesday, July 20, 2016 09:15 - CONCLUSION: No acute intracranial abnormality. Moderately severe chronic white matter changes, nonspecific but most likely small vessel ischemia. Alfredo Sneed MD Head CT 07/19/16 0000 Signed Impressions: Service Date/Time: Tuesday, July 19, 2016 09:58 - CONCLUSION: No acute intracranial findings. João Otoole MD Foot X-Ray 07/16/16 0000 Signed Impressions: Service Date/Time: Saturday, July 16, 2016 17:34 - CONCLUSION: 1. Nonspecific soft tissue swelling. No acute bone destruction demonstrated. 2. Mild talonavicular and navicular/cuneiform degenerative changes. 3. Second through fifth hammertoe. 4. Moderate-sized heel spur. Alfredo Sneed MD Objective Remarks GENERAL: Alert, Screams in pain episodically. SKIN: Warm and dry. HEAD: Normocephalic. EYES: No scleral icterus. No injection or drainage. NECK: Supple, trachea midline. No JVD or lymphadenopathy. CARDIOVASCULAR: Regular rate and rhythm without murmurs, gallops, or rubs. RESPIRATORY: Breath sounds equal bilaterally. No accessory muscle use. GASTROINTESTINAL: Abdomen soft, non-tender, nondistended. MUSCULOSKELETAL: Left foot has multiple toes with gangrenous changes. Right foot with digit 3 gangrenous changes. Both lower ext above ankle wrapped in dressing. BACK: Nontender without obvious deformity. No CVA tenderness. Procedures 08/08/2016 PROCEDURE 1. Selective right lower extremity arteriogram. 2. Balloon angioplasty with a 4 mm x 2200 mm and then a 5 x 200 mm Medtronic angioplasty balloon of the right superficial femoral and proximal popliteal artery. 07/31/2016 Excision and debridement of both legs, extensive necrotic wounds approximately 30 x 25 cm area on each side, total 1000 to 1100 cm square, down to the subcutaneous tissue and tendon on the left side. A/P Problem List: (1) Cellulitis of left lower extremity ICD Code: L03.116 Status: Acute (2) Delirium due to another medical condition ICD Code: F05 Status: Acute (3) Neuropathic pain ICD Code: M79.2 Status: Acute Assessment and Plan Pt. is 61-year-old female, with multiple admissions, with history of cellulitis of legs, severe PVD, diabetes and cardiomyopathy EF of 30% was at the rehabilitation facility when she became more altered lethargic and hypoxic. Rapid response team was called and transferred patient to ICU. In the ICU patient remains confused and lethargic responsive to pain with a stable blood pressure and saturation of 100% on 40% face mask. Patient has improved and was transferred to regular medical/ surgical unit. Chronic lower ext wound Peripheral vascular disease Severe neuropathic pain - Plastic surgery Dr. Pepe recommended wound care/hyperbaric treatments.Input appreciated, intermediate designer management of the leg wounds - to get good granulations and then skin graft. The tendon on the left leg may take a long time to get covered with granulations - also may be partly lost. May follow with plastics in outpatient. Plastic surgery signed off. - Continue [place], Dilaudid PRN for pain. - Gabapentin to 600mg TID. - Continue low dose Seroquel, Methadone. - Discussed with CM about possible transfer to [facility]. Waiting to do a peer to peer. - Consulted Dr. Dee for a second opinion- Awaiting recommendation from Dr. Dee and Dr. Dr. Taylor - We will continue abx. ID recommending Meropenem 500mg Q8H - Left neck rash - could be contact dermatitis- improving - Continue topic abx, steroid. UTI - Microbiology growing ESBL - Received Doxycycline - Probable pneumonia - in the healthcare setting. - ID following appreciate their assistance -Anxiety, acute psychosis. - Will try Zyprexa IM to see if there is any benefit. stop date 08/19/16 -Diabetes mellitus - Continue Levemir 5 units QHS and sliding scale insulin. Monitor for hypoglycemia. -Hypothyroidism - continue levothyroxine 150 g daily. -Hypertension - continue Valsartan 80mg QHS. -Cardiomyopathy - Continue Carvedilol 25mg BID, Valsartan, Isosorbide. -Hx of seizure activity - continue Valproic acid 250mg Q12hrs. -Anemia hgb 7.0 - recheck H&H --> 6.9. Transfused two units of PRBCs. - Probable JAYLAN - Anasarca - Urine output is very low. Patient's last Albumin 1.3 which is likely the reason for anasarca. - Will ask for a nephrology consult. - Patient may benefit from short term Albumin transfusion along with tube feed via NG or preferably PEG tube. - poor PO intake - consult dietitian for calorie count, may require tube feeding Full code. Heparin SQ. Discussed with Patient's family members, RN, Dr. Pedraza (ID). Devi Alejo DO Aug 19, 2016 10:58
[2016-08-19 11:32] LABS: AUTOMATED NEUTROPHIL # 9.7 TH/MM3 (1.8-7.7); BASOPHIL % 0.3 % (0.0-2.0); EOSINOPHIL # 0.4 TH/MM3 (0-0.4); EOSINOPHIL % 2.8 % (0.0-4.0); HEMATOCRIT 29.8 % (35.0-46.0); LYMPH % 15.9 % (9.0-44.0); LYMPHOCYTE # 2.1 TH/MM3 (1.0-4.8); MEAN CELL VOLUME 77.8 FL (80.0-100.0); MEAN CORPUSCULAR HEMOGLOBIN 23.4 PG (27.0-34.0); MEAN CORPUSCULAR HGB CONC 30.1 % (32.0-36.0); MONO % 8.1 % (0.0-8.0); NEUT % 72.9 % (16.0-70.0); PLATELET COUNT 262 TH/MM3 (150-450); RED BLOOD COUNT 3.83 MIL/MM3 (4.00-5.30); RED CELL DISTRIBUTION WIDTH 17.8 % (11.6-17.2); WHITE BLOOD COUNT 13.3 TH/MM3 (4.0-11.0)
[2016-08-19 11:34] LABS: HEMO FLAGS AUTO DIFF
[2016-08-19 11:56] LABS: BICARBONATE 29.6 MEQ/L (21.0-32.0)
[2016-08-19 12:15] LABS: CALCIUM-PROTEIN CORRECTED 8.3 MG/DL (8.5-10.1)
[2016-08-19 12:24] LABS: BANDS 9 % (0-6); EOSINOPHILS 2 % (0-4); METAMYELOCYTES 1 % (0-1); NEUTROPHIL # MANUAL DIFF 11.8 TH/MM3 (1.8-7.7); POLYS (SEG NEUTROPHILS) 79 % (16-70); WBC DIFF SAMPLE 100
[2016-08-19 12:26] LABS: PLATELET ESTIMATE SMEAR NORMAL (NORMAL); PLATELET MORPHOLOGY NORMAL (NORMAL); SCAN/DIFF FINAL DIFF MANUAL; TOXIC GRANULATION 1+ (NORMAL)
--- NOTE | 2016-08-19 15:38 | HHI.HCPN ---
Reason for visit a. To assist with evaluation and management of symptoms including: Lower extremity pain; confusion; lethargy b. To assist medical decision maker(s) with: better understanding of current medical conditions; weighing benefits/burdens of medical treatment options; making medical treatment decisions. . Subjective/Interval History Patient is awake, crying out at times, and intermittently confused at the time of my visit. Denies pain at this time. She remains on methadone low-dose scheduled, and on the low-dose quetiapine. She has not received PRN hydromorphone in the past couple days. Her temp today was 99.9, after being 101.8 yesterday. Her white count remains somewhat elevated at 13.3. She continues to have evidence of malnutrition, with total protein 5.1, and the most recent albumin (08/17/16) was 1.3. The last chest x-ray from 4 days ago indicated developing infiltrates. . Family/friend interactions Jay Mancia is at the bedside. She reports that she and her brother and her stepfather are all to a point where they are feeling that the patient may be better off having the amputations completed "to give her a chance at recovery," rather than to continue down this road where the patient seems to be getting weaker, more confused, and is eating minimal calories. . Advance Directives Living Will: Never completed Health Care Surrogate: Never completed Durable Power of Bobj Developer: Completed, but not made available Advance Directive Specifics Date completed: Family reports there is a completed POA document -- not available to us at this time. Unknown date. . Health Care Surrogate(s): is reportedly the health care POA. Even if there is no documented designation of health care POA or surrogate, he would serve as proxy. Spoke with in person on 08/12/16. He tells me how he knows nothing about health care and is fine if patient's daughter Blanche serves as proxy. If does not want to serve, it would fall to both son and daughter. Patient 's son also defers decision-making to patient's daughter Blanche, as he is often out of the country and unavailable. . Documented care wishes: No documented wishes of patient's expressed health care goals/preferences. . Significant change in goals: 08/19/16: Jay Mancia reports that she and her brother and her stepfather are all to a point where they are feeling that the patient may be better off having the amputations completed "to give her a chance at recovery," rather than to continue down this road where the patient seems to be getting weaker, more confused, and is eating minimal calories. Objective Vital Signs Date Time Temp Pulse Resp B/P Pulse Ox O2 Delivery O2 Flow Rate FiO2 08/19/16 12:02 98.0 71 18 91/55 97 08/19/16 09:27 98 Nasal Cannula 2.00 08/19/16 08:54 98.8 65 17 110/55 97 08/19/16 08:02 98.3 65 18 97/51 97 08/19/16 05:41 99.3 64 16 91/53 98 08/19/16 05:10 99.9 68 14 90/54 98 08/19/16 03:55 99.2 75 18 96/52 98 08/19/16 02:26 99.5 73 14 98/51 98 08/19/16 01:38 98.5 73 18 106/53 97 08/18/16 22:00 99.3 75 18 94/47 93 08/18/16 20:05 99.1 77 18 88/51 95 08/18/16 19:30 Nasal Cannula 2.00 08/18/16 16:00 98.4 69 20 93/50 97 Intake & Output 08/19/16 08/19/16 07:00 19:00 Intake Total 340 ml Output Total 700 ml Balance -360 ml Intake Oral 340 ml Output Urine Total 700 ml # Bowel Movements 0 Physical Exam CONSTITUTIONAL/GENERAL: This is an adequately nourished patient. Occasionally calls out, confused at times. No distress. SKIN: No jaundice. Ecchymoses on upper extremities. I did not remove the patient's lower extremity dressings which are wet. Dry, gangrenous changes are noted on the digits of both feet. Skin temperature appropriate. Not diaphoretic. There is a rash on the left side of the face and neck that seems to be healing. CARDIOVASCULAR: Regular rate and rhythm without gallops, or rubs. 2/6 systolic murmur heard. No JVD. RESPIRATORY/CHEST: Symmetric, unlabored respirations. Clear to auscultation. Breath sounds equal bilaterally. No wheezes, rales, or rhonchi. GASTROINTESTINAL: Abdomen soft, non-tender, nondistended. No hepato-splenomegaly , or palpable masses. No guarding. Bowel sounds present. MUSCULOSKELETAL: Both lower extremities are edematous. Dressing was not removed from her wounds. Dry gangrenous changes to the digits of both feet. NEUROLOGICAL: Moves all extremities. Lethargic. Awake for some period of time, then drifts off to sleep PSYCHIATRIC: Unable to assess due to level of lethargy. . Diagnostic Tests Laboratory Laboratory Tests Test 08/17/16 08/17/16 08/17/16 08/18/16 05:11 08:52 21:00 08:27 White Blood Count 11.1 TH/MM3 14.0 TH/MM3 (4.0-11.0) (4.0-11.0) Red Blood Count 3.41 MIL/MM3 3.03 MIL/MM3 (4.00-5.30) (4.00-5.30) Hemoglobin 7.8 GM/DL 7.0 GM/DL (11.6-15.3) (11.6-15.3) Hematocrit 26.0 % 23.1 % (35.0-46.0) (35.0-46.0) Mean Corpuscular Volume 76.3 FL 76.2 FL (80.0-100.0) (80.0-100.0) Mean Corpuscular Hemoglobin 22.9 PG 23.1 PG (27.0-34.0) (27.0-34.0) Mean Corpuscular Hemoglobin 30.0 % 30.3 % Concent (32.0-36.0) (32.0-36.0) Red Cell Distribution Width 18.9 % 18.8 % (11.6-17.2) (11.6-17.2) Platelet Count 241 TH/MM3 236 TH/MM3 (150-450) (150-450) Mean Platelet Volume 7.1 FL 6.8 FL (7.0-11.0) (7.0-11.0) Neutrophils (%) (Auto) 62.8 % 77.6 % (16.0-70.0) (16.0-70.0) Lymphocytes (%) (Auto) 22.8 % 12.4 % (9.0-44.0) (9.0-44.0) Monocytes (%) (Auto) 11.8 % 8.0 % (0.0-8.0) (0.0-8.0) Eosinophils (%) (Auto) 2.3 % (0.0-4.0) 1.6 % (0.0-4.0) Basophils (%) (Auto) 0.3 % (0.0-2.0) 0.4 % (0.0-2.0) Neutrophils # (Auto) 7.0 TH/MM3 10.9 TH/MM3 (1.8-7.7) (1.8-7.7) Lymphocytes # (Auto) 2.5 TH/MM3 1.7 TH/MM3 (1.0-4.8) (1.0-4.8) Monocytes # (Auto) 1.3 TH/MM3 1.1 TH/MM3 (0-0.9) (0-0.9) Eosinophils # (Auto) 0.3 TH/MM3 0.2 TH/MM3 (0-0.4) (0-0.4) Basophils # (Auto) 0.0 TH/MM3 0.1 TH/MM3 (0-0.2) (0-0.2) CBC Comment AUTO DIFF AUTO DIFF Differential Total Cells 100 100 Counted Neutrophils % (Manual) 46 % (16-70) 74 % (16-70) Band Neutrophils % 22 % (0-6) 14 % (0-6) Lymphocytes % 10 % (9-44) 5 % (9-44) Monocytes % 16 % (0-8) 6 % (0-8) Eosinophils % 3 % (0-4) Basophils % 1 % (0-2) Neutrophils # (Manual) 7.7 TH/MM3 12.5 TH/MM3 (1.8-7.7) (1.8-7.7) Metamyelocytes 1 % (0-1) 1 % (0-1) Differential Comment FINAL DIFF FINAL DIFF MANUAL MANUAL Plasma Cells 1 % (0-0) Platelet Estimate NORMAL NORMAL (NORMAL) (NORMAL) Platelet Morphology Comment NORMAL NORMAL (NORMAL) (NORMAL) Ovalocytes 1+ (NORMAL) Sodium Level 141 MEQ/L 144 MEQ/L (136-145) (136-145) Potassium Level 4.3 MEQ/L 4.1 MEQ/L (3.5-5.1) (3.5-5.1) Chloride Level 104 MEQ/L 108 MEQ/L (98-107) (98-107) Carbon Dioxide Level 30.4 MEQ/L 28.8 MEQ/L (21.0-32.0) (21.0-32.0) Anion Gap 7 MEQ/L (5-15) 7 MEQ/L (5-15) Blood Urea Nitrogen 22 MG/DL (7-18) 23 MG/DL (7-18) Creatinine 0.97 MG/DL 1.02 MG/DL (0.50-1.00) (0.50-1.00) Estimat Glomerular Filtration 58 ML/MIN (>89) 55 ML/MIN (>89) Rate Random Glucose 106 MG/DL 103 MG/DL (74-106) (74-106) Lactic Acid Level 0.8 mmol/L (0.4-2.0) Calcium Level 7.6 MG/DL 7.2 MG/DL (8.5-10.1) (8.5-10.1) Total Bilirubin 0.4 MG/DL (0.2-1.0) Aspartate Amino Transf 32 U/L (15-37) (AST/SGOT) Alanine Aminotransferase 17 U/L (10-53) (ALT/SGPT) Alkaline Phosphatase 74 U/L (45-117) Total Protein 5.4 GM/DL 5.1 GM/DL (6.4-8.2) (6.4-8.2) Albumin 1.3 GM/DL (3.4-5.0) Procalcitonin 0.10 ng/mL (0.00-0.50) Urine Color YELLOW (YELLW/STRAW) Urine Turbidity HAZY (CLEAR) Urine pH 5.0 (5.0-8.5) Urine Specific [place] 1.020 (1.002-1.035) Urine Protein 30 mg/dL (NEG-TRACE) Urine Glucose (UA) NEG mg/dL (NEG) Urine Ketones NEG mg/dL (NEG) Urine Occult Blood TRACE (NEG) Urine Nitrite NEG (NEG) Urine Bilirubin NEG (NEG) Urine Urobilinogen LESS THAN 2.0 MG/DL (LESS THAN 2.0) Urine Leukocyte Esterase LARGE (NEG) Urine RBC 6 /hpf (0-3) Urine WBC 53 /hpf (0-5) Urine Squamous Epithelial 1 /hpf (0-5) Cells Urine Bacteria RARE /hpf (NONE) Urine Mucus FEW /lpf (OCC) Microscopic Urinalysis Comment CULTURE INDICATED Toxic Granulation 1+ (NORMAL) Protein Corrected Calcium 8.3 MG/DL (8.5-10.1) Iron Level 12 MCG/DL (50-170) Total Iron Binding Capacity 69 MCG/DL (250-450) Percent Iron Saturation 17.5 % (20-50) Test 08/18/16 08/19/16 08/19/16 16:13 00:03 11:10 Hemoglobin 6.9 GM/DL 9.0 GM/DL (11.6-15.3) (11.6-15.3) Hematocrit 23.1 % 29.8 % (35.0-46.0) (35.0-46.0) Blood Type A POSITIVE Antibody Screen NEGATIVE Crossmatch Leukocyte-Reduced Red Blood Cells Blood Bank Comment White Blood Count 13.3 TH/MM3 (4.0-11.0) Red Blood Count 3.83 MIL/MM3 (4.00-5.30) Mean Corpuscular Volume 77.8 FL (80.0-100.0) Mean Corpuscular Hemoglobin 23.4 PG (27.0-34.0) Mean Corpuscular Hemoglobin 30.1 % Concent (32.0-36.0) Red Cell Distribution Width 17.8 % (11.6-17.2) Platelet Count 262 TH/MM3 (150-450) Mean Platelet Volume 6.9 FL (7.0-11.0) Neutrophils (%) (Auto) 72.9 % (16.0-70.0) Lymphocytes (%) (Auto) 15.9 % (9.0-44.0) Monocytes (%) (Auto) 8.1 % (0.0-8.0) Eosinophils (%) (Auto) 2.8 % (0.0-4.0) Basophils (%) (Auto) 0.3 % (0.0-2.0) Neutrophils # (Auto) 9.7 TH/MM3 (1.8-7.7) Lymphocytes # (Auto) 2.1 TH/MM3 (1.0-4.8) Monocytes # (Auto) 1.1 TH/MM3 (0-0.9) Eosinophils # (Auto) 0.4 TH/MM3 (0-0.4) Basophils # (Auto) 0.0 TH/MM3 (0-0.2) CBC Comment AUTO DIFF Differential Total Cells 100 Counted Neutrophils % (Manual) 79 % (16-70) Band Neutrophils % 9 % (0-6) Lymphocytes % 6 % (9-44) Monocytes % 3 % (0-8) Eosinophils % 2 % (0-4) Neutrophils # (Manual) 11.8 TH/MM3 (1.8-7.7) Metamyelocytes 1 % (0-1) Differential Comment FINAL DIFF MANUAL Toxic Granulation 1+ (NORMAL) Platelet Estimate NORMAL (NORMAL) Platelet Morphology Comment NORMAL (NORMAL) Sodium Level 145 MEQ/L (136-145) Potassium Level 4.0 MEQ/L (3.5-5.1) Chloride Level 110 MEQ/L (98-107) Carbon Dioxide Level 29.6 MEQ/L (21.0-32.0) Anion Gap 5 MEQ/L (5-15) Blood Urea Nitrogen 20 MG/DL (7-18) Creatinine 0.88 MG/DL (0.50-1.00) Estimat Glomerular Filtration 65 ML/MIN (>89) Rate Random Glucose 86 MG/DL (74-106) Calcium Level 7.2 MG/DL (8.5-10.1) Protein Corrected Calcium 8.3 MG/DL (8.5-10.1) Total Protein 5.1 GM/DL (6.4-8.2) Result Diagram: 08/19/16 1110 08/19/16 1110 Microbiology Microbiology Date/Time Procedure Status Source Growth 08/17/16 21:00 Urine Culture - Final Complete Urine Catheterized Urine NO GROWTH IN 48 HOURS. Imaging Last Impressions Chest X-Ray 08/15/16 0000 Signed Impressions: Service Date/Time: Monday, August 15, 2016 20:39 - CONCLUSION: Developing bilateral infiltrates Alfredo Etienne MD Upper Extremity Ultrasound 07/28/16 0000 Signed Impressions: Service Date/Time: Thursday, July 28, 2016 14:34 - CONCLUSION: No DVT is identified within the right upper extremity. Alfredo Eng MD Brain MRI 07/20/16 0000 Signed Impressions: Service Date/Time: Wednesday, July 20, 2016 09:15 - CONCLUSION: No acute intracranial abnormality. Moderately severe chronic white matter changes, nonspecific but most likely small vessel ischemia. Alfredo Sneed MD Head CT 07/19/16 0000 Signed Impressions: Service Date/Time: Tuesday, July 19, 2016 09:58 - CONCLUSION: No acute intracranial findings. João Otoole MD Foot X-Ray 07/16/16 0000 Signed Impressions: Service Date/Time: Saturday, July 16, 2016 17:34 - CONCLUSION: 1. Nonspecific soft tissue swelling. No acute bone destruction demonstrated. 2. Mild talonavicular and navicular/cuneiform degenerative changes. 3. Second through fifth hammertoe. 4. Moderate-sized heel spur. Alfredo Sneed MD Procedures 07/31/2016 Excision and debridement of both legs, extensive necrotic wounds approximately 30 x 25 cm area on each side, total 1000 to 1100 cm square, down to the subcutaneous tissue and tendon on the left side. 08/08/2016 1. Selective right lower extremity arteriogram. 2. Balloon angioplasty with a 4 mm x 2200 mm and then a 5 x 200 mm REAL SAMURAItronic angioplasty balloon of the right superficial femoral and proximal popliteal artery. Note that patient had these additional procedures on prior admissions: * Bilateral lower extremity wound debridements 05/15/16 * Bilateral LE Debridements and Left SFA angioplasty on 06/23/16 . Assessment and Plan Disease Oriented Problem List: (1) PVD (peripheral vascular disease) Comment: With infected/nonhealing wounds and gangrene (2) DM (diabetes mellitus), type 2, uncontrolled, periph vascular complic (3) CHF (congestive heart failure) (4) Hypertension (5) Cellulitis of left lower extremity (6) Delirium due to another medical condition (7) VT (ventricular tachycardia) (8) Ulcer of heel and midfoot (9) Hypothyroidism (10) Anemia (11) Urinary tract infection Comment: Cx of 08/11/16 growing out E coli ESBL . Symptom Scale: (1) Pain 0-10 Scale: Unable to quantify Comment: Patient unable to quantify or qualify her own pain. There is frequent moaning and calling out suggesting the pain is quite severe but at times hollering appears more due to delirium than to pain.. Pain most likely due to ischemia and the wounds themselves. May be a component of neuropathic pain from the diabetes. . (2) Confusion 0-10 Scale: Unable to quantify Comment: Confusion is probably multifactorial. Patient apparently was cognitively sharp up until about 05/13/2016. Has had intermittent confusion since including hallucinations and disorientation. Now with known UTI which may be contributing. . Pertinent Non-Medical Issues Psychosocial: Psychosocial support from and daughter (lives locally). Son in [place] is very involved, but is often working out of the country. Spiritual: Anglican. Had been a member of [employer]. Legal: Family reports there is a completed POA for finance and health care. and patient's son are OK yielding decision making to patient's daughter. Ethical issues impacting care: Patient is currently incapacitated due to delirium. . Important Contacts * Alfredo Lemos (spouse) [phone] * Kalpesh (son) [phone] * Blanche (daughter) [phone] . Prognosis The patient has severe peripheral vascular disease and accompanying refractory lower extremity wounds. Wounds have worsened in spite of aggressive care beginning in March 2016. She has undergone re-vascularization procedures on both lower extremities since May. Wounds now involve tendon structures in the feet. Patient might be able to benefit and achieve healing with hyperbaric oxygen. Otherwise she will likely need bilateral below the knee amputations. Prognosis greatly depends on success of managing these infections/wounds. While these infections/wounds continue, she remains at risk for sepsis. Based on the practice consultant's notes, it appears unlikely regardless of treatment course that she will be ambulating independently in the future. Her success in any type of rehabilitation will also depend on her ability to clear cognitively, improve her nutritional status, and have adequate pain relief without accompanying oversedation. . Code Status: Full Code Plan ==CODE STATUS: Full code ==Decision making: Patient is currently incapacitated to make her own health care decisions. She is confused and it is unclear if/when she will regain capacity. Although her husbandJohnis technically her health care decision- maker, he and the patient's son have both ceded decision-making to the patient' s daughter Blanche. == Goals of medical treatment: At this time goals are aggressive. 08/19/16: Daughter Blanche reports that she and her brother and her stepfather are all to a point where they are feeling that the patient may be better off having the amputations completed "to give her a chance at recovery," rather than to continue down this road where the patient seems to be getting weaker, more confused, and is eating minimal calories.. It is difficult to see the path forward that includes successful hyperbaric treatment and subsequent surgical treatment of these nonhealing/infected wounds. For hyperbaric 02 treatments she would need to be home and to be able to tolerate those treatments, which would require improvements in her nutritional status and strength, as well as a prolonged infection free time that allowed her to stay out of the hospital. She would also need better pain control and delirium control. It seems doubtful to me that all of this can fall into place; rather, she seems to be continuing to decline. == Confusion: Her confusion/delirium is likely multifactorial; we will continue the low-dose quetiapine for now. == Pain: Pain appears mostly secondary to ischemic pain and wound pain in the lower extremities. She may also have some lower extremity pain secondary to diabetic neuropathy. Patient is unable to quantify or qualify her pain adequately due to her cognitive challenges. Managing pain will remain quite difficult. Giving her amounts of opiate analgesics that appears to work on the pain also reportedly is enough that she becomes lethargic. She apparently had a negative reaction to fentanyl. She has a history of acute kidney injury so we may need to be careful of opiates requiring renal metabolism. She became too sedated on higher dose gabapentin. Methadone has been started to see if she will benefit from NMDA receptor blockade but with her heart failure and history of ventricular tachycardia we must avoid other QT prolongers ( famotidine and ondansetron have been DCd). Hydrocodone has been stopped. Will leave prn hydromorphone in place for breakthrough. We can consider titrating the methadone every few days. When patient is screaming, it is understandably difficult for nursing staff to differentiate between pain and delirium. == Wounds: The family has stated that the wounds began on the abdomen and buttock which make it less likely that these wounds began because of PVD. Also , vascular surgery feels that the wounds are out of proportion to the level of vascular disease. I see only one wound culture since the initial March admission. Dr. White is wondering about an underlying autoimmune disease to explain wounds that appear out of proportion to her vascular disease. == Disposition: Unclear at this time. If she does not improve enough to get out of the hospital, hyperbaric treatments will not proceed, and I suspect she will continue to decline.. == Palliative care will continue to follow the patient to assist with symptom management and to further clarify goals of medical treatment as the clinical course evolves. . Time Spent Total Floor Time (mins): 48 Face to Face Time (mins): 25 >50% Counseling/Coord of Care: Yes (d/w Dr. Alejo and Dr. Bird) Attestation To help prompt me to consider important information that might be impacting today's encounter and assessment, information from prior notes written by myself or my colleagues may have been "brought forward" into today's note. My signature on this note, however, is an attestation that I personally performed the exam, history, and/or decision-making noted today, and, unless otherwise indicated, the interactions with patient, family, and staff as well as the review of records all occurred today. I also attest that the listed assessment and stated plan reflect my best clinical judgment today based on the combination of historical information, prior notes, and today's exam/ interactions. When time spent is documented, it refers only to time spent today by the signer, or if indicated, combined time spent today by collaborating physician/nurse practitioner. Amy Martinez MD Aug 19, 2016 15:37
[2016-08-19] MEDS: HYDROmorphone HCL PF 1 MG/ML VIAL IV PUSH PRN (16:27)
--- NOTE | 2016-08-19 19:38 | RADRPT ---
EXAM DATE/TIME: 08/19/2016 18:46 [facility] COMPARISON: CHEST SINGLE AP, August 15, 2016, 20:39. INDICATIONS : Short of breath. MEDICAL HISTORY : Hypercholesterolemia. Osteoporosis. Arthritis. Thyroid disease. Hypertension. Diabetes. Rubella. Depr ession. Anxiety. SURGICAL HISTORY : Cholecystectomy. Left oophorectomy. ENCOUNTER: Subsequent ACUITY: 1 month PAIN SCORE: Non-responsive. LOCATION: Bilateral chest FINDINGS: The heart is enlarged. Bibasilar streakiness is noted consistent with atelectasis and/or infiltrates . There is a poor inspiratory result. CONCLUSION: 1. Bibasilar streakiness consistent with atelectasis and/or infiltrates. 2. Cardiomegaly. 3. Poor inspiratory result. Shamar Banuelos MD on August 19, 2016 at 19:27 Board Certified Radiologist. This report was verified electronically.
[2016-08-19] MEDS: QUEtiapine FUMARATE 25 MG TAB PO SCH (21:57)
[2016-08-19] MEDS: MELATONIN 5 MG TAB PO SCH (21:57)
[2016-08-19] MEDS: VALSARTAN 80 MG TAB PO SCH (21:58)
[2016-08-19] MEDS: INSULIN DETEMIR 100 UNITS/ML VIAL SQ SCH (22:01)
[2016-08-20] VITALS (7 sets, daily range): BP systolic 90–126; BP diastolic 51–61; PULSE 65–75; RESP 18–20; TEMP 97.4–99.2; O2SAT 91–95
[2016-08-20] MEDS: SODIUM CHLOR 0.9% 1000 ML INJ 1,000 ML IV SCH ×3 (00:50→14:10)
[2016-08-20] MEDS: CHLORHEXIDINE GLUCONATE 2 % 1 PACK (2 CLOTHS) TOP SCH (04:00)
[2016-08-20] MEDS: HYDROCORTISONE 1% CREAM 30 GM TOPICAL SCH ×3 (04:00→20:00)
[2016-08-20] MEDS: MEROPENEM INJ 500 MG in SODIUM CHLORIDE 0.9% INJ 100 ML IV SCH ×3 (05:36→22:58)
[2016-08-20] MEDS: HEPARIN SODIUM - SQ 10,000 UNITS/ML VIAL SQ SCH ×3 (05:42→23:00)
[2016-08-20] MEDS: LEVOTHYROXINE SODIUM 150 MCG TAB PO SCH (05:43)
[2016-08-20] MEDS: ISOSORBIDE DINITRATE 5 MG TAB PO SCH ×3 (05:43→22:58)
[2016-08-20] MEDS: INSULIN ASPART SUPPLEMENTAL SCALE SQ SCH ×4 (06:21→21:00)
[2016-08-20] MEDS: GABAPENTIN 300 MG CAP PO SCH ×3 (08:43→16:38)
[2016-08-20] MEDS: VALPROIC ACID 250 MG CAP PO SCH ×2 (08:43→22:59)
[2016-08-20] MEDS: ASPIRIN EC 325 MG TABEC PO SCH (08:43)
[2016-08-20] MEDS: SODIUM CHLORIDE 0.9% FLUSH 5 ML FLUSH IV FLUSH SCH ×2 (08:44→23:03)
[2016-08-20] MEDS: LACTOBACILLUS ACIDOPHILUS TAB PO SCH ×6 (08:44→16:38)
[2016-08-20] MEDS: LIOTHYRONINE SODIUM 5 MCG TAB PO SCH (08:44)
[2016-08-20] MEDS: MUPIROCIN 2% OINT 22 GM TUBE TOPICAL SCH ×2 (08:45→21:00)
[2016-08-20] MEDS: LINEZOLID 600 MG PREMIX 300 ML IV SCH ×2 (08:49→22:54)
[2016-08-20] MEDS: METHADONE HCL 10 MG TAB PO SCH ×2 (09:12→22:59)
--- NOTE | 2016-08-20 11:37 | HHI.IDPN ---
Subjective Subjective Remarks is a 61 y/o CF with PVD s/p revascularization. Afebrile. Rash on her left side of neck, face (sparing the nose, mouth) but involving the ear pinna. Rash on the nape of neck. Rash not following dermatomal patterns. No diarrhea UO low despite IVF. Poor oral intake. Nutrition is a concern. d/w in last few days. IVF ongoing per hospitalist. Antibiotics Zosyn IV Vanco IV Levaquin Lines Line sites with no e.o infection. Past Medical History PVD - has CTA last year and has lesions that could be corrected Hypertension Diabetes Cardiomyopathysustained after contrast-induced flash pulmonary edema- latest EF was 30% in March 2016. Obesity Hypothyroidism History of dermoid cyststatus post left oophorectomy 25 years ago Past Surgical History Left oophorectomy for dermoid cyst removal Cholecystectomy Hernia repair Allergies: Coded Allergies: Contrast Media (Verified Allergy, Severe, Flash pulmonary edema , 06/16/16) PEANUTS (Verified Allergy, Severe, rash, 07/03/16) swelling of the tongue Santyl (Verified Allergy, Intermediate, Irritation, 07/09/16) *MDRO Multi-Drug Resistant Organism (Verified Adverse Reaction, Unknown, ) MRSA (leg wound) - 07/31/2016 & 08/14/16 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/2016 ESBL E. coli (urine) - 08/10/2016 Objective . Vital Signs Date Time Temp Pulse Resp B/P Pulse Ox O2 Delivery O2 Flow Rate FiO2 08/20/16 08:00 98.6 66 20 90/54 93 08/20/16 04:00 98.4 69 18 98/51 92 08/20/16 00:00 99.2 74 18 105/52 94 08/19/16 20:30 Room Air 08/19/16 20:00 98.4 77 16 111/56 96 08/19/16 16:01 98.2 68 18 98/56 97 08/19/16 12:02 98.0 71 18 91/55 97 08/19/16 08/19/16 08/20/16 15:00 23:00 07:00 Intake Total 280 ml 420 ml 320 ml Output Total 300 ml 500 ml Balance 280 ml 120 ml -180 ml Intake Oral 280 ml 120 ml 120 ml IV Total 300 ml 200 ml Output Urine Total 300 ml 500 ml # Voids 3 # Bowel Movements 1 1 2 . Laboratory Tests Test 08/18/16 08/19/16 16:13 11:10 Hemoglobin 6.9 GM/DL 9.0 GM/DL Hematocrit 23.1 % 29.8 % White Blood Count 13.3 TH/MM3 Red Blood Count 3.83 MIL/MM3 Mean Corpuscular Volume 77.8 FL Mean Corpuscular Hemoglobin 23.4 PG Mean Corpuscular Hemoglobin 30.1 % Concent Red Cell Distribution Width 17.8 % Platelet Count 262 TH/MM3 Mean Platelet Volume 6.9 FL Neutrophils (%) (Auto) 72.9 % Lymphocytes (%) (Auto) 15.9 % Monocytes (%) (Auto) 8.1 % Eosinophils (%) (Auto) 2.8 % Basophils (%) (Auto) 0.3 % Neutrophils # (Auto) 9.7 TH/MM3 Lymphocytes # (Auto) 2.1 TH/MM3 Monocytes # (Auto) 1.1 TH/MM3 Eosinophils # (Auto) 0.4 TH/MM3 Basophils # (Auto) 0.0 TH/MM3 CBC Comment AUTO DIFF Differential Total Cells 100 Counted Neutrophils % (Manual) 79 % Band Neutrophils % 9 % Lymphocytes % 6 % Monocytes % 3 % Eosinophils % 2 % Neutrophils # (Manual) 11.8 TH/MM3 Metamyelocytes 1 % Differential Comment FINAL DIFF MANUAL Toxic Granulation 1+ Platelet Estimate NORMAL Platelet Morphology Comment NORMAL Laboratory Tests Test 08/19/16 11:10 Sodium Level 145 MEQ/L Potassium Level 4.0 MEQ/L Chloride Level 110 MEQ/L Carbon Dioxide Level 29.6 MEQ/L Anion Gap 5 MEQ/L Blood Urea Nitrogen 20 MG/DL Creatinine 0.88 MG/DL Estimat Glomerular Filtration 65 ML/MIN Rate Random Glucose 86 MG/DL Calcium Level 7.2 MG/DL Protein Corrected Calcium 8.3 MG/DL B-Type Natriuretic Peptide 301 PG/ML Total Protein 5.1 GM/DL Microbiology Date/Time Procedure Status Source Growth 08/17/16 21:00 Urine Culture - Final Complete Urine Catheterized Urine NO GROWTH IN 48 HOURS. Imaging Chest X-Ray 07/20/16 0000 Signed Impressions: Service Date/Time: Wednesday, July 20, 2016 12:38 - CONCLUSION: Mild left base consolidation developing. Alfredo Sneed MD Brain MRI 07/20/16 0000 Signed Impressions: Service Date/Time: Wednesday, July 20, 2016 09:15 - CONCLUSION: No acute intracranial abnormality. Moderately severe chronic white matter changes, nonspecific but most likely small vessel ischemia. Alfredo Sneed MD Head CT 07/19/16 0000 Signed Impressions: Service Date/Time: Tuesday, July 19, 2016 09:58 - CONCLUSION: No acute intracranial findings. João Otoole MD Foot X-Ray 07/16/16 0000 Signed Impressions: Service Date/Time: Saturday, July 16, 2016 17:34 - CONCLUSION: 1. Nonspecific soft tissue swelling. No acute bone destruction demonstrated. 2. Mild talonavicular and navicular/cuneiform degenerative changes. 3. Second through fifth hammertoe. 4. Moderate-sized heel spur. Alfredo Sneed MD Physical Exam GENERAL: Obese, CF. SKIN: Rash on her left side of neck, face (sparing the nose, mouth) but involving the ear pinna. Rash on the nape of neck. Rash not following dermatomal patterns. HEENT: [place] conjunctivae. No icterus, moist mucosa NECK: Trachea midline. Supple, nontender, no meningeal signs. CARDIOVASCULAR: HS audible. No murmur appreciated. Decreased BS at bases RESPIRATORY: Clear to auscultation. Breath sounds equal bilaterally. GASTROINTESTINAL: Abdomen soft, non-tender, nondistended. Obese. MUSCULOSKELETAL: Bilateral extremities with ulcers, has slough,edema better, has dry gangrene L 2nd and 3rd toes NEUROLOGICAL: confused but more alert today, moves all extremities. Psych: could not be assessed. IV line sites with no e.o infection. Assessment & Plan Remarks Penumonia: likely aspiration in health care setting. ESBL in urine ? likely colonization. Dry gangrene 2 toes L foot PVD, S/P revascularization Encephalopathy, prob pain meds a big factor, ? pain meds related. Cardiomyopathy DM with neuropathy. Hypothyroidism Chronic narcotic use. Anxiety and Depression. PLAN Continue Levaquin. continue Zyvox IV for possible MRSA pneumonia. Monitor temps Monitor progress edwardo Dacosta. Concern for rheum or other conditions causing delayed healing of ulcers. Will order rheum workup, cryoglobulinemia, hepatitis profile, HIV screen. Follow and address. If this is deemed to be of Rheum or other etiology other than vascular then bilateral amputations would not be a good idea as amputation sites would have delayed healing as well. I agree with . If Rheum workup negative consider derm biopsy involving the ulcer margin and an area of normal tissue as well to determine cause. When derm biopsy sent please sent tissue for micro and pathology in saline. 1. Micro : regular stains and culture, AFB stain and culture, Fungal stain and culture. 2. Pathology. Follow cultures Follow clinically. Charisse Pedraza MD Aug 20, 2016 11:37
--- NOTE | 2016-08-20 12:46 | HHI.HCPN ---
Reason for visit a. To assist with evaluation and management of symptoms including: Lower extremity pain; confusion; lethargy b. To assist medical decision maker(s) with: better understanding of current medical conditions; weighing benefits/burdens of medical treatment options; making medical treatment decisions. . Subjective/Interval History Patient is awake at times, lethargic at times, crying out intermittently, and intermittently confused. Again denies pain at this time. She remains on methadone low-dose scheduled, and on the low-dose quetiapine. She has not received PRN hydromorphone in the past couple days. I remain concerned with respect to the overall trajectory of her decline and the persistence of her delirium. She is taking little orally, is now malnourished, has anasarca, and is very unlikely to ever be ambulatory again. As it was felt that her foot/leg/skin necrosis and ulceration seems out of proportion to the severity of her vascular disease, further workup has been initiated by Dr. Lourdes Pedraza for autoimmune possibilities. . . Advance Directives Living Will: Never completed Health Care Surrogate: Never completed Durable Power of Law Firm Administrator: Completed, but not made available Advance Directive Specifics Date completed: Family reports there is a completed POA document -- not available to us at this time. Unknown date. . Health Care Surrogate(s): is reportedly the health care POA. Even if there is no documented designation of health care POA or surrogate, he would serve as proxy. Spoke with in person on 08/12/16. He tells me how he knows nothing about health care and is fine if patient's daughter Blanche serves as proxy. If does not want to serve, it would fall to both son and daughter. Patient 's son also defers decision-making to patient's daughter Blanche, as he is often out of the country and unavailable. . Documented care wishes: No documented wishes of patient's expressed health care goals/preferences. . Objective Vital Signs Date Time Temp Pulse Resp B/P Pulse Ox O2 Delivery O2 Flow Rate FiO2 08/20/16 11:42 97.9 65 20 96/54 91 08/20/16 08:00 98.6 66 20 90/54 93 08/20/16 04:00 98.4 69 18 98/51 92 08/20/16 00:00 99.2 74 18 105/52 94 3/28/17 20:30 Room Air 08/19/16 20:00 98.4 77 16 111/56 96 08/19/16 16:01 98.2 68 18 98/56 97 Intake & Output 08/20/16 08/20/16 07:00 19:00 Intake Total 740 ml Output Total 800 ml Balance -60 ml Intake Oral 240 ml IV Total 500 ml Output Urine Total 800 ml # Bowel Movements 3 Physical Exam CONSTITUTIONAL/GENERAL: This is an adequately nourished patient. Occasionally calls out, confused at times. No distress. SKIN: No jaundice. Ecchymoses on upper extremities. I did not remove the patient's lower extremity dressings which are wet. Dry, gangrenous changes are noted on the digits of both feet. Skin temperature appropriate. Not diaphoretic. There is a rash on the left side of the face and neck that seems to be healing. CARDIOVASCULAR: Regular rate and rhythm without gallops, or rubs. 2/6 systolic murmur heard. No JVD. RESPIRATORY/CHEST: Symmetric, unlabored respirations. Clear to auscultation. Breath sounds equal bilaterally. No wheezes, rales, or rhonchi. GASTROINTESTINAL: Abdomen soft, non-tender, nondistended. No hepato-splenomegaly , or palpable masses. No guarding. Bowel sounds present. MUSCULOSKELETAL: Both lower extremities are edematous. Dressing was not removed from her wounds. Dry gangrenous changes to the digits of both feet. Thick-appearing heel eschars. NEUROLOGICAL: Moves all extremities. Lethargic. Awake for some period of time, then drifts off to sleep PSYCHIATRIC: Unable to assess due to level of lethargy. . Diagnostic Tests Laboratory Laboratory Tests Test 08/17/16 08/18/16 08/18/16 08/19/16 21:00 08:27 16:13 00:03 Urine Color YELLOW (YELLW/STRAW) Urine Turbidity HAZY (CLEAR) Urine pH 5.0 (5.0-8.5) Urine Specific [place] 1.020 (1.002-1.035) Urine Protein 30 mg/dL (NEG-TRACE) Urine Glucose (UA) NEG mg/dL (NEG) Urine Ketones NEG mg/dL (NEG) Urine Occult Blood TRACE (NEG) Urine Nitrite NEG (NEG) Urine Bilirubin NEG (NEG) Urine Urobilinogen LESS THAN 2.0 MG/DL (LESS THAN 2.0) Urine Leukocyte Esterase LARGE (NEG) Urine RBC 6 /hpf (0-3) Urine WBC 53 /hpf (0-5) Urine Squamous Epithelial 1 /hpf (0-5) Cells Urine Bacteria RARE /hpf (NONE) Urine Mucus FEW /lpf (OCC) Microscopic Urinalysis Comment CULTURE INDICATED White Blood Count 14.0 TH/MM3 (4.0-11.0) Red Blood Count 3.03 MIL/MM3 (4.00-5.30) Hemoglobin 7.0 GM/DL 6.9 GM/DL (11.6-15.3) (11.6-15.3) Hematocrit 23.1 % 23.1 % (35.0-46.0) (35.0-46.0) Mean Corpuscular Volume 76.2 FL (80.0-100.0) Mean Corpuscular Hemoglobin 23.1 PG (27.0-34.0) Mean Corpuscular Hemoglobin 30.3 % Concent (32.0-36.0) Red Cell Distribution Width 18.8 % (11.6-17.2) Platelet Count 236 TH/MM3 (150-450) Mean Platelet Volume 6.8 FL (7.0-11.0) Neutrophils (%) (Auto) 77.6 % (16.0-70.0) Lymphocytes (%) (Auto) 12.4 % (9.0-44.0) Monocytes (%) (Auto) 8.0 % (0.0-8.0) Eosinophils (%) (Auto) 1.6 % (0.0-4.0) Basophils (%) (Auto) 0.4 % (0.0-2.0) Neutrophils # (Auto) 10.9 TH/MM3 (1.8-7.7) Lymphocytes # (Auto) 1.7 TH/MM3 (1.0-4.8) Monocytes # (Auto) 1.1 TH/MM3 (0-0.9) Eosinophils # (Auto) 0.2 TH/MM3 (0-0.4) Basophils # (Auto) 0.1 TH/MM3 (0-0.2) CBC Comment AUTO DIFF Differential Total Cells 100 Counted Neutrophils % (Manual) 74 % (16-70) Band Neutrophils % 14 % (0-6) Lymphocytes % 5 % (9-44) Monocytes % 6 % (0-8) Neutrophils # (Manual) 12.5 TH/MM3 (1.8-7.7) Metamyelocytes 1 % (0-1) Differential Comment FINAL DIFF MANUAL Toxic Granulation 1+ (NORMAL) Platelet Estimate NORMAL (NORMAL) Platelet Morphology Comment NORMAL (NORMAL) Sodium Level 144 MEQ/L (136-145) Potassium Level 4.1 MEQ/L (3.5-5.1) Chloride Level 108 MEQ/L (98-107) Carbon Dioxide Level 28.8 MEQ/L (21.0-32.0) Anion Gap 7 MEQ/L (5-15) Blood Urea Nitrogen 23 MG/DL (7-18) Creatinine 1.02 MG/DL (0.50-1.00) Estimat Glomerular Filtration 55 ML/MIN (>89) Rate Random Glucose 103 MG/DL (74-106) Calcium Level 7.2 MG/DL (8.5-10.1) Protein Corrected Calcium 8.3 MG/DL (8.5-10.1) Total Protein 5.1 GM/DL (6.4-8.2) Iron Level 12 MCG/DL (50-170) Total Iron Binding Capacity 69 MCG/DL (250-450) Percent Iron Saturation 17.5 % (20-50) Blood Type A POSITIVE Antibody Screen NEGATIVE Crossmatch Leukocyte-Reduced Red Blood Cells Blood Bank Comment Test 08/19/16 11:10 White Blood Count 13.3 TH/MM3 (4.0-11.0) Red Blood Count 3.83 MIL/MM3 (4.00-5.30) Hemoglobin 9.0 GM/DL (11.6-15.3) Hematocrit 29.8 % (35.0-46.0) Mean Corpuscular Volume 77.8 FL (80.0-100.0) Mean Corpuscular Hemoglobin 23.4 PG (27.0-34.0) Mean Corpuscular Hemoglobin 30.1 % Concent (32.0-36.0) Red Cell Distribution Width 17.8 % (11.6-17.2) Platelet Count 262 TH/MM3 (150-450) Mean Platelet Volume 6.9 FL (7.0-11.0) Neutrophils (%) (Auto) 72.9 % (16.0-70.0) Lymphocytes (%) (Auto) 15.9 % (9.0-44.0) Monocytes (%) (Auto) 8.1 % (0.0-8.0) Eosinophils (%) (Auto) 2.8 % (0.0-4.0) Basophils (%) (Auto) 0.3 % (0.0-2.0) Neutrophils # (Auto) 9.7 TH/MM3 (1.8-7.7) Lymphocytes # (Auto) 2.1 TH/MM3 (1.0-4.8) Monocytes # (Auto) 1.1 TH/MM3 (0-0.9) Eosinophils # (Auto) 0.4 TH/MM3 (0-0.4) Basophils # (Auto) 0.0 TH/MM3 (0-0.2) CBC Comment AUTO DIFF Differential Total Cells 100 Counted Neutrophils % (Manual) 79 % (16-70) Band Neutrophils % 9 % (0-6) Lymphocytes % 6 % (9-44) Monocytes % 3 % (0-8) Eosinophils % 2 % (0-4) Neutrophils # (Manual) 11.8 TH/MM3 (1.8-7.7) Metamyelocytes 1 % (0-1) Differential Comment FINAL DIFF MANUAL Toxic Granulation 1+ (NORMAL) Platelet Estimate NORMAL (NORMAL) Platelet Morphology Comment NORMAL (NORMAL) Sodium Level 145 MEQ/L (136-145) Potassium Level 4.0 MEQ/L (3.5-5.1) Chloride Level 110 MEQ/L (98-107) Carbon Dioxide Level 29.6 MEQ/L (21.0-32.0) Anion Gap 5 MEQ/L (5-15) Blood Urea Nitrogen 20 MG/DL (7-18) Creatinine 0.88 MG/DL (0.50-1.00) Estimat Glomerular Filtration 65 ML/MIN (>89) Rate Random Glucose 86 MG/DL (74-106) Calcium Level 7.2 MG/DL (8.5-10.1) Protein Corrected Calcium 8.3 MG/DL (8.5-10.1) B-Type Natriuretic Peptide 301 PG/ML (0-100) Total Protein 5.1 GM/DL (6.4-8.2) Result Diagram: 08/19/16 1110 08/19/16 1110 Microbiology Microbiology Date/Time Procedure Status Source Growth 3/26/17 21:00 Urine Culture - Final Complete Urine Catheterized Urine NO GROWTH IN 48 HOURS. Procedures 07/31/2016 Excision and debridement of both legs, extensive necrotic wounds approximately 30 x 25 cm area on each side, total 1000 to 1100 cm square, down to the subcutaneous tissue and tendon on the left side. 08/08/2016 1. Selective right lower extremity arteriogram. 2. Balloon angioplasty with a 4 mm x 2200 mm and then a 5 x 200 mm Medtronic angioplasty balloon of the right superficial femoral and proximal popliteal artery. Note that patient had these additional procedures on prior admissions: * Bilateral lower extremity wound debridements 05/15/16 * Bilateral LE Debridements and Left SFA angioplasty on 06/23/16 . Assessment and Plan Disease Oriented Problem List: (1) complicated/infected/necrotic foot and leg wounds (2) PVD (peripheral vascular disease) Comment: With infected/nonhealing wounds and gangrene (3) DM (diabetes mellitus), type 2, uncontrolled, periph vascular complic (4) CHF (congestive heart failure) (5) Hypertension (6) Cellulitis of left lower extremity (7) Delirium due to another medical condition (8) VT (ventricular tachycardia) (9) Ulcer of heel and midfoot (10) Hypothyroidism (11) Anemia (12) Urinary tract infection Comment: Cx of 08/11/16 growing out E coli ESBL . Symptom Scale: (1) Pain 0-10 Scale: Unable to quantify Comment: Patient unable to quantify or qualify her own pain. There is frequent moaning and calling out suggesting the pain is quite severe but at times hollering appears more due to delirium than to pain.. Pain most likely due to ischemia and the wounds themselves. May be a component of neuropathic pain from the diabetes. . (2) Confusion 0-10 Scale: Unable to quantify Comment: Confusion is probably multifactorial. Patient apparently was cognitively sharp up until about 05/13/2016. Has had intermittent confusion since including hallucinations and disorientation. Now with known UTI which may be contributing. . Pertinent Non-Medical Issues Psychosocial: Psychosocial support from and daughter (lives locally). Son in [place] is very involved, but is often working out of the country. Spiritual: Taoism. Had been a member of [employer]. Legal: Family reports there is a completed POA for finance and health care. and patient's son are OK yielding decision making to patient's daughter. Ethical issues impacting care: Patient is currently incapacitated due to delirium. . Important Contacts * Alfredo Lemos (spouse) [phone] * Kalpesh (son) [phone] * Blanche (daughter) [phone] . Prognosis The patient has severe peripheral vascular disease and accompanying refractory lower extremity wounds. Wounds have worsened in spite of aggressive care beginning in March 2016. She has undergone re-vascularization procedures on both lower extremities since May. Wounds now involve tendon structures in the feet. Patient might be able to benefit and achieve healing with hyperbaric oxygen. Otherwise she will likely need bilateral below the knee amputations. Prognosis greatly depends on success of managing these infections/wounds. While these infections/wounds continue, she remains at risk for sepsis. Based on the pre owned sales consultant's notes, it appears unlikely regardless of treatment course that she will be ambulating independently in the future. Her success in any type of rehabilitation will also depend on her ability to clear cognitively, improve her nutritional status, and have adequate pain relief without accompanying oversedation. . Code Status: Full Code Plan ==CODE STATUS: Full code ==Decision making: Patient is currently incapacitated to make her own health care decisions. She is confused and it is unclear if/when she will regain capacity. Although her husbandJohnis technically her health care decision- maker, he and the patient's son have both ceded decision-making to the patient' s daughter Blanche. == Goals of medical treatment: At this time goals are aggressive. 08/19/16: Daughter Blanche reported that she and her brother and her stepfather are all to a point where they are feeling that the patient may be better off having the amputations completed "to give her a chance at recovery," rather than to continue down this road where the patient seems to be getting weaker, more confused, and is eating minimal calories??? It is difficult to see the path forward that includes successful hyperbaric treatment and subsequent surgical treatment of these nonhealing/infected wounds. For hyperbaric 02 treatments she would need to be home and to be able to tolerate those treatments, which would require improvements in her nutritional status and strength, as well as a prolonged infection free time that allowed her to stay out of the hospital. She would also need better pain control and delirium control. It seems doubtful to me that all of this can fall into place; rather, she seems to be continuing to decline. Autoimmune work-up ordered 08/20/16. == Confusion: Her confusion/delirium is likely multifactorial; we will continue the low-dose quetiapine for now. == Pain: Pain appears mostly secondary to ischemic pain and wound pain in the lower extremities. She may also have some lower extremity pain secondary to diabetic neuropathy. Patient is unable to quantify or qualify her pain adequately due to her cognitive challenges. She apparently had a negative reaction to fentanyl. She became too sedated on higher dose gabapentin. Methadone is bieng continued low-dose.. Hydrocodone has been stopped. Will leave prn hydromorphone in place for breakthrough. When patient is screaming, it is understandably difficult for nursing staff to differentiate between pain and delirium. == Wounds: The family has stated that the wounds began on the abdomen and buttock which make it less likely that these wounds began because of PVD. Also , vascular surgery feels that the wounds are out of proportion to the level of vascular disease. Dr. White is wondering about an underlying autoimmune disease to explain wounds that appear out of proportion to her vascular disease.....work-up ordered 08/20/16. == Disposition: Unclear at this time. If she does not improve enough to get out of the hospital, hyperbaric treatments will not proceed, and I suspect she will continue to decline.. == Palliative care will continue to follow the patient to assist with symptom management and to further clarify goals of medical treatment as the clinical course evolves. . Time Spent Total Floor Time (mins): 41 Face to Face Time (mins): 33 >50% Counseling/Coord of Care: Yes (d/w Dr. Lourdes Pedraza, and Dr. Bernard) Attestation To help prompt me to consider important information that might be impacting today's encounter and assessment, information from prior notes written by myself or my colleagues may have been "brought forward" into today's note. My signature on this note, however, is an attestation that I personally performed the exam, history, and/or decision-making noted today, and, unless otherwise indicated, the interactions with patient, family, and staff as well as the review of records all occurred today. I also attest that the listed assessment and stated plan reflect my best clinical judgment today based on the combination of historical information, prior notes, and today's exam/ interactions. When time spent is documented, it refers only to time spent today by the signer, or if indicated, combined time spent today by collaborating physician/nurse practitioner. Amy Martinez MD Aug 20, 2016 12:45
[2016-08-20 13:36] LABS: RHEUMATOID FACTOR TRIGGER LESS THAN 10.0 IU/ML (0.0-14.9)
--- NOTE | 2016-08-20 17:19 | PD.CONS ---
HPI Service Nephrology Consult Requested By Dr. Alejo Reason for Consult Hypoalbuminemia, anasarca, oliguria Primary Care Physician Unknown History of Present Illness The patient is a 61 yo [place] female who has has multiple recent hospitalizations regarding BLE wounds. This admission has been since 07/15 when she was transferred from [facility] for worsening leg wounds. She has had extensive w /u and involvement with vascular surgery and wound care to try to salvage her extremities. She currently is medicated and not a very reliable historian, so much of history is obtained thru previous records. She has a significant PMHx of CKD, DM, cardiomyopathy from reported contrast- induced flash pulmonary edema with EF of 35% on echo from 07/29, hypothyroidism. She has had multiple issues with her renal functions in the past with fluctuating baseline. As per records, baseline SCr ~1.3. We have been consulted regarding her fluid retention and declining UOP. (Kaila Pickett) Review of Systems Cardiovascular: COMPLAINS OF: Lower Extremity Edema (Kaila Pickett) Past Family Social History Allergies: Coded Allergies: Contrast Media (Verified Allergy, Severe, Flash pulmonary edema , 06/16/16) PEANUTS (Verified Allergy, Severe, rash, 07/03/16) swelling of the tongue Santyl (Verified Allergy, Intermediate, Irritation, 07/09/16) *MDRO Multi-Drug Resistant Organism (Verified Adverse Reaction, Unknown, ) MRSA (leg wound) - 07/31/2016 & 08/14/16 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/2016 ESBL E. coli (urine) - 08/10/2016 Past Medical History CKD DM HTN PVD Hypothyroidism Cardiomyopathy with EF of 35% Past Surgical History Angioplasty RLE Multiple wound debridement to BLE L oophorectomy Cholecystectomy Hernia repair Reported Medications Reported Meds & Active Scripts Active Hydrocodone-Acetaminophen 5-325 mg Tab 1 Tab PO Q4H PRN Duragesic Patch 72 HR (Fentanyl) 25 Mcg/Hr Patch 1 Patch TD Q3D Quetiapine (Quetiapine Fumarate) 25 Mg Tab 25 Mg PO BID Thera M Plus (Multivitamins/Minerals Therapeutic) 1 Tab 1 Tab PO DAILY Cytomel (Liothyronine Sodium) 5 Mcg Tab 5 Mcg PO DAILY Levothyroxine (Levothyroxine Sodium) 25 Mcg Tab 25 Mcg PO DAILY@06 Synthroid (Levothyroxine Sodium) 150 Mcg Tab 150 Mcg PO DAILY@06 Levaquin (Levofloxacin) 250 Mg Tab 250 Mg PO Q48H 1 Days Acidophilus/l-Sporogenes (Lactobacillus Acidophilus) 1 Tab Tab 1 Tab PO TID Isordil Titradose (Isosorbide Dinitrate) 5 Mg Tab 5 Mg PO Q8HR Levemir Inj (Insulin Detemir) 1,000 unit/ 10 ML Vial 25 Units SQ HS 30 Days Heparin Sodium (Heparin Sodium (Porcine)) 10,000 Unit/Ml Inj 5,000 Units SQ Q12HR 1 Days Diflucan (Fluconazole) 100 Mg Tab 75 Mg PO DAILY@17 1 Days Dok (Docusate Sodium) 100 Mg Cap 100 Mg PO BID Duloxetine DR (Duloxetine HCl) 30 Mg Capdr 30 Mg PO Q12HR Coreg (Carvedilol) 12.5 Mg Tab 25 Mg PO BID Wellbutrin SR 12 HR (Bupropion HCl) 150 Mg Tab 150 Mg PO Q12HR [Aspirin Ec] 325 MG Tabec 325 Mg PO DAILY Levemir Inj (Insulin Detemir) 1,000 unit/ 10 ML Vial 15 Units SQ HS 30 Days Do not mix with any other Insulin. Clonazepam 0.5 Mg Tab 0.5 Mg PO Q8HR PRN Oxycodone-Acetaminophen 5-325 mg Tab 1 Tab PO Q4H PRN Neurontin (Gabapentin) 300 Mg Cap 300 Mg PO BID Reported Dulcolax Supp (Bisacodyl) 10 Mg Supp 10 Mg RECTAL DAILY PRN Glucagen Hypokit Inj Kit (Glucagon (Rdna) Inj Kit) 1 Mg Kit 1 Mg IM ONCE PRN Sodium Chloride 1 Gm Tab 1 Gm PO DAILY Losartan (Losartan Potassium) 100 Mg Tab 100 Mg PO DAILY Lasix (Furosemide) 20 Mg Tab 20 Mg PO DAILY Active Ordered Medications Current Medications Medications (Trade) Dose Ordered Sig/Virgilio Route Start Time Stop Time Status Last Admin (NS Flush) 2 ml UNSCH PRN IV FLUSH 07/15/16 19:45 08/12/16 05:30 (NS Flush) 2 ml BID IV FLUSH 07/15/16 21:00 08/20/16 08:44 (Reglan Inj) 5 mg Q6H PRN IV 07/15/16 19:45 (Heparin Inj) 5,000 units Q8HR SQ 07/15/16 22:00 08/20/16 12:32 Miscellaneous Information 1 Q361D XX 07/15/16 19:45 07/15/16 19:45 (Chlorhexidine 2% Cloth) Taper DAILY@04 TOP 07/16/16 04:00 07/12/17 03:59 07/17/16 03:11 (Chlorhexidine 2% Cloth) 3 pack UNSCH PRN TOP 07/15/16 19:45 (Isordil) 5 mg Q8HR PO 07/15/16 22:00 08/20/16 12:32 (Lactinex) 1 tab TID PO 07/16/16 09:00 08/20/16 16:38 (Synthroid) 150 mcg DAILY@06 PO 07/16/16 06:00 08/20/16 05:43 (Cytomel) 5 mcg DAILY PO 07/16/16 09:00 08/20/16 08:44 (Pill Splitter) 1 ea UNSCH PRN OTHER 07/15/16 21:30 (Ecotrin Ec) 325 mg DAILY PO 07/16/16 09:00 08/20/16 08:43 (Dilaudid Pf Inj) 0.5 mg Q4H PRN IV PUSH 07/18/16 11:45 08/19/16 16:27 (Haldol Inj) 2 mg Q6H PRN IM 07/19/16 12:30 Hold 07/30/16 01:29 (Ativan Inj) 1 mg Q6H PRN IV PUSH 07/19/16 12:30 Hold 07/28/16 06:09 (D50w (Vial) Inj) 25 ml UNSCH PRN IV PUSH 07/23/16 11:00 (Glucagon Inj) 1 mg UNSCH PRN OTHER 07/23/16 11:00 (Depakene) 250 mg Q12HR PO 07/27/16 09:00 08/20/16 08:43 (Diovan) 80 mg HS PO 07/27/16 21:00 08/19/16 21:58 (Vasotec Inj) 1.25 mg Q8H PRN IV PUSH 07/28/16 16:00 (Levemir Inj) 5 units HS SQ 07/30/16 21:00 08/19/16 22:01 Melatonin 5 mg 5 mg HS PO 07/30/16 21:00 08/19/16 21:57 (Gentamicin Inj/ NS Irr Btl) 1,005 ml @ 0 mls/hr UNSCH PRN IRRIGATION 07/31/16 13:30 (KlonoPIN) 0.5 mg Q8H PRN PO 08/12/16 12:45 08/16/16 18:21 (Dolophine) 2.5 mg Q12HR PO 08/12/16 21:00 08/20/16 09:12 (Tylenol) 500 mg Q6H PRN PO 08/13/16 17:15 (SEROquel) 6.25 mg HS PO 08/14/16 21:00 08/19/16 21:57 (SEROquel) 6.25 mg DAILY PRN PO 08/14/16 12:45 (Bactroban 2% Oint) 1 applic Q12HR TOPICAL 08/15/16 15:00 08/20/16 08:45 (Hydrocortisone 1% Cream) 1 applic Q8H TOPICAL 08/15/16 20:00 08/20/16 12:00 Lactobacillus Acidophilus 1 tab 1 tab TID PO 08/16/16 09:00 08/19/16 17:35 (Merrem Inj/NS Inj) 100 ml @ 200 mls/hr Q8H IV 08/18/16 14:00 08/20/16 16:37 Gabapentin 600 mg 600 mg TID PO 08/18/16 18:00 08/20/16 16:38 Sodium Chloride 1,000 ml @ 150 mls/hr Q6H40M IV 08/18/16 15:30 08/19/16 17:44 (Zyvox 600 Mg Premix) 300 ml @ 300 mls/hr Q12H IV 08/19/16 08:00 08/20/16 08:49 Family History Colon CA, COPD, DM Social History Former smoker, but quit many years ago No EtOH No illicits 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 SKIN: Warm and dry. HEAD: Atraumatic. Normocephalic. EYES: Pupils equal and round. No scleral icterus. No injection or drainage. ENT: No nasal bleeding or discharge. Mucous membranes pink and moist. NECK: Trachea midline. No JVD. CARDIOVASCULAR: Regular rate and rhythm. RESPIRATORY: No accessory muscle use. Clear to auscultation. Breath sounds equal bilaterally. GASTROINTESTINAL: Abdomen soft, non-tender, nondistended. Hepatic and splenic margins not palpable. MUSCULOSKELETAL: Extremities without clubbing, cyanosis, significant edema throughout--anasarca NEUROLOGICAL: Awake and alert. PSYCHIATRIC: Appropriate mood and affect; insight and judgment abnormal. Laboratory Laboratory Tests Test 08/20/16 12:52 C-Reactive Protein 15.70 Rheumatoid Factor Screen NEGATIVE Rheumatoid Factor Titer Hepatitis A IgM Antibody NEGATIVE Hepatitis B Surface Antigen NEGATIVE Hepatitis B Core IgM Antibody NEGATIVE Hepatitis C Antibody NEGATIVE HIV (1&2) Antibody NEGATIVE Date/Time Procedure Status Source Growth 08/20/16 16:10 Stool Occult Blood (LEONELA) Received Stool Stool Pending 08/17/16 21:00 Urine Culture - Final Complete Urine Catheterized Urine NO GROWTH IN 48 HOURS. (Kaila Pickett) Result Diagram: 08/19/16 1110 08/19/16 1110 Imaging Last Impressions Chest X-Ray 08/19/16 0000 Signed Impressions: Service Date/Time: Friday, August 19, 2016 18:46 - CONCLUSION: 1. Bibasilar streakiness consistent with atelectasis and/or infiltrates. 2. Cardiomegaly. 3. Poor inspiratory result. Shamar Banuelos MD Upper Extremity Ultrasound 07/28/16 0000 Signed Impressions: Service Date/Time: Thursday, July 28, 2016 14:34 - CONCLUSION: No DVT is identified within the right upper extremity. Alfredo Eng MD Brain MRI 07/20/16 0000 Signed Impressions: Service Date/Time: Wednesday, July 20, 2016 09:15 - CONCLUSION: No acute intracranial abnormality. Moderately severe chronic white matter changes, nonspecific but most likely small vessel ischemia. Alfredo Sneed MD Head CT 07/19/16 0000 Signed Impressions: Service Date/Time: Tuesday, July 19, 2016 09:58 - CONCLUSION: No acute intracranial findings. João Otoole MD Foot X-Ray 07/16/16 0000 Signed Impressions: Service Date/Time: Saturday, July 16, 2016 17:34 - CONCLUSION: 1. Nonspecific soft tissue swelling. No acute bone destruction demonstrated. 2. Mild talonavicular and navicular/cuneiform degenerative changes. 3. Second through fifth hammertoe. 4. Moderate-sized heel spur. Alfredo Sneed MD (Kaila Pickett) Assessment and Plan Problem List: (1) Chronic kidney disease (CKD) Plan: Although SCr is "normal", her renal US is consistently with medical renal disease. I suspect that her actual renal function is worse that what labs are showing given her massive fluid overload. Previous labs show potential baseline SCr of 1.3 ANCA and autoimmune work up has been ordered by Dr. Pedraza. Will also check SPEP, FRANCESCA, and K/L ratio given her CKD, hypoalbuminemia, and anemia (2) Cardiomyopathy Plan: She has a significant amount of edema. Likely related to poor myocardial perfusion and poor po intake. As above, screening tests have been ordered. D/C IVF Will start on IVF diuretics and utilize albumin to help with fluid shift and offer support for hypotension. Monitor I&O's (3) Uncontrolled diabetes mellitus Plan: Mgmt as per primary team (4) Hypertension Plan: As per hx, hypotensive as of late. Monitor. (5) complicated/infected/necrotic foot and leg wounds Plan: Mgmt as per WC & vacular teams (6) Anemia Plan: Repeat CBC with Fe panel & FOBT. (Kaila Pickett) Assessment and Plan As above. Discontinue IV fluids in view of generalized edema and cardiomyopathy. As mentioned above patient's current creatinine level probably not indicative of the patient's actual renal function in view of fluid overload. Will try albumin and bumetanide to try and improve anasarca. Nutritional support also important. I have discontinued the Diovan in view of the hypotension. The exam, history, and the medical decision-making described in the above note were completed with the assistance of the PA-Tanya. I reviewed and agree with the findings presented. I attest that I had a [id number] encounter with the patient on the same day, and personally performed and documented my assessment and findings in the medical record. (Marco Antonio Estrada MD) Kaila Pickett Aug 20, 2016 17:19 Marco Antonio Estrada MD Aug 20, 2016 18:59
--- NOTE | 2016-08-20 17:24 | HHI.PR ---
Subjective Remarks Follow up for lower ext gangrene, PVD, wound, severe neuropathic pain. Ms. Lemos is occasionally loud. When I talked to her she denies any pain. No fever or chills. Objective Vitals Vital Signs Date Time Temp Pulse Resp B/P Pulse Ox O2 Delivery O2 Flow Rate FiO2 08/20/16 11:42 97.9 65 20 96/54 91 08/20/16 08:00 Room Air 08/20/16 08:00 98.6 66 20 90/54 93 08/20/16 04:00 98.4 69 18 98/51 92 08/20/16 00:00 99.2 74 18 105/52 94 08/19/16 20:30 Room Air 08/19/16 20:00 98.4 77 16 111/56 96 I/O 08/19/16 08/19/16 08/19/16 08/20/16 08/20/16 08/20/16 07:00 15:00 23:00 07:00 15:00 23:00 Intake Total 100 ml 280 ml 420 ml 320 ml Output Total 250 ml 300 ml 500 ml Balance -150 ml 280 ml 120 ml -180 ml Intake Oral 100 ml 280 ml 120 ml 120 ml IV Total 300 ml 200 ml Output Urine Total 250 ml 300 ml 500 ml # Voids 3 # Bowel Movements 0 1 1 2 Result Diagram: 08/19/16 1110 08/19/16 1110 Imaging Last Impressions Chest X-Ray 08/19/16 0000 Signed Impressions: Service Date/Time: Friday, August 19, 2016 18:46 - CONCLUSION: 1. Bibasilar streakiness consistent with atelectasis and/or infiltrates. 2. Cardiomegaly. 3. Poor inspiratory result. Shamar Banuelos MD Upper Extremity Ultrasound 07/28/16 0000 Signed Impressions: Service Date/Time: Thursday, July 28, 2016 14:34 - CONCLUSION: No DVT is identified within the right upper extremity. Alfredo Eng MD Brain MRI 07/20/16 0000 Signed Impressions: Service Date/Time: Wednesday, July 20, 2016 09:15 - CONCLUSION: No acute intracranial abnormality. Moderately severe chronic white matter changes, nonspecific but most likely small vessel ischemia. Alfredo Sneed MD Head CT 07/19/16 0000 Signed Impressions: Service Date/Time: Tuesday, July 19, 2016 09:58 - CONCLUSION: No acute intracranial findings. João Otoole MD Foot X-Ray 07/16/16 0000 Signed Impressions: Service Date/Time: Saturday, July 16, 2016 17:34 - CONCLUSION: 1. Nonspecific soft tissue swelling. No acute bone destruction demonstrated. 2. Mild talonavicular and navicular/cuneiform degenerative changes. 3. Second through fifth hammertoe. 4. Moderate-sized heel spur. Alfredo Sneed MD Objective Remarks GENERAL: Alert, Screams in pain episodically. SKIN: Warm and dry. HEAD: Normocephalic. EYES: No scleral icterus. No injection or drainage. NECK: Supple, trachea midline. No JVD or lymphadenopathy. CARDIOVASCULAR: Regular rate and rhythm without murmurs, gallops, or rubs. RESPIRATORY: Breath sounds equal bilaterally. No accessory muscle use. GASTROINTESTINAL: Abdomen soft, non-tender, nondistended. MUSCULOSKELETAL: Left foot has multiple toes with gangrenous changes. Right foot with digit 3 gangrenous changes. Both lower ext above ankle wrapped in dressing. BACK: Nontender without obvious deformity. No CVA tenderness. Procedures 08/08/2016 PROCEDURE 1. Selective right lower extremity arteriogram. 2. Balloon angioplasty with a 4 mm x 2200 mm and then a 5 x 200 mm Medtronic angioplasty balloon of the right superficial femoral and proximal popliteal artery. 07/31/2016 Excision and debridement of both legs, extensive necrotic wounds approximately 30 x 25 cm area on each side, total 1000 to 1100 cm square, down to the subcutaneous tissue and tendon on the left side. A/P Problem List: (1) Cellulitis of left lower extremity ICD Code: L03.116 Status: Acute (2) Delirium due to another medical condition ICD Code: F05 Status: Acute (3) Neuropathic pain ICD Code: M79.2 Status: Acute Assessment and Plan Pt. is 61-year-old female, with multiple admissions, with history of cellulitis of legs, severe PVD, diabetes and cardiomyopathy EF of 30% was at the rehabilitation facility when she became more altered lethargic and hypoxic. Rapid response team was called and transferred patient to ICU. In the ICU patient remains confused and lethargic responsive to pain with a stable blood pressure and saturation of 100% on 40% face mask. Patient has improved and was transferred to regular medical/ surgical unit. Chronic lower ext wound Peripheral vascular disease Severe neuropathic pain - Plastic surgery Dr. Pepe recommended wound care/hyperbaric treatments.Input appreciated, skilled nursing management of the leg wounds - to get good granulations and then skin graft. The tendon on the left leg may take a long time to get covered with granulations - also may be partly lost. May follow with plastics in outpatient. Plastic surgery signed off. - Continue Larue, Dilaudid PRN for pain. - Gabapentin to 600mg TID. - Continue low dose Seroquel, Methadone. - Discussed with CM about possible transfer to [facility]. Waiting to do a peer to peer. - Consulted Dr. Dee for a second opinion. Current consensus from vascular surgical standpoint is to continue conservative therapy (Dr. White) . - We will continue abx. ID recommending Meropenem 500mg Q8H, Patient is also on Zyvox for possible MRSA pneumonia. - Left neck rash - could be contact dermatitis- improving - Continue topic abx, steroid. UTI - Microbiology growing ESBL - Received Doxycycline - Probable pneumonia - in the healthcare setting. - ID following appreciate their assistance -Anxiety, acute psychosis. - Received Zyprexa. If needed, we can use Zyprexa or Geodon. -Diabetes mellitus - Continue Levemir 5 units QHS and sliding scale insulin. Monitor for hypoglycemia. -Hypothyroidism - continue levothyroxine 150 g daily. -Hypertension - continue Valsartan 80mg QHS. -Cardiomyopathy - Continue Carvedilol 25mg BID, Valsartan, Isosorbide. -Hx of seizure activity - continue Valproic acid 250mg Q12hrs. -Anemia hgb 7.0 - recheck H&H --> 6.9. Transfused two units of PRBCs. - Probable JAYLAN - Anasarca - Urine output is very low. Patient's last Albumin 1.3 which is likely the reason for anasarca. - Will ask for a nephrology consult. - Patient may benefit from short term Albumin transfusion along with tube feed via NG or preferably PEG tube. - poor PO intake - consult dietitian for calorie count, may require tube feeding Full code. Heparin SQ. Discussed with Patient's family members, RN, Dr. Pedraza (ID). Devi Alejo DO Aug 20, 2016 5:24 pm
[2016-08-20 18:33] LABS: C. DIFF EPI 027 PRESUMPTIVE POSITIVE (NEGATIVE); C. DIFF TOXIN PCR POSITIVE (NEGATIVE)
[2016-08-20 21:59] LABS: FERRITIN 269 NG/ML (8-252); TOTAL PROTEIN SPE 5.1 GM/DL (6.0-7.6); TRANSFERRIN IRON PROFILE 46 MG/DL (200-360)
[2016-08-20 22:39] LABS: IMMUNOGLOBULIN A 448 MG/DL (85-468); IMMUNOGLOBULIN G 1280 MG/DL (650-1610); IMMUNOGLOBULIN M 71 MG/DL (45-276); KAPPA LAMBDA RATIO 1.79 (1.57-3.93); LAMBDA LIGHT CHAIN 205 MG/DL (90-210)
[2016-08-20] MEDS: ALBUMIN HUMAN 25% 12.5 GM/50 ML BAGP IV SCH (22:53)
[2016-08-20] MEDS: MELATONIN 5 MG TAB PO SCH (22:59)
[2016-08-20] MEDS: QUEtiapine FUMARATE 25 MG TAB PO SCH (22:59)
[2016-08-20] MEDS: INSULIN DETEMIR 100 UNITS/ML VIAL SQ SCH (23:02)
[2016-08-20] MEDS: BUMETANIDE INJ 1 MG/4 ML VIAL IV PUSH SCH (23:14)
[2016-08-21] VITALS: BP 125/58; PULSE 76; RESP 18; TEMP 99; O2SAT 93
[2016-08-21] MEDS: ALBUMIN HUMAN 25% 12.5 GM/50 ML BAGP IV SCH ×3 (03:59→21:08)
[2016-08-21 04:00] VITALS: BP 117/64; PULSE 69; RESP 20; TEMP 99; O2SAT 98
[2016-08-21] MEDS: HYDROCORTISONE 1% CREAM 30 GM TOPICAL SCH ×3 (04:00→20:00)
[2016-08-21] MEDS: CHLORHEXIDINE GLUCONATE 2 % 1 PACK (2 CLOTHS) TOP SCH (04:00)
[2016-08-21] MEDS: BUMETANIDE INJ 1 MG/4 ML VIAL IV PUSH SCH ×3 (04:32→21:06)
[2016-08-21] MEDS: ISOSORBIDE DINITRATE 5 MG TAB PO SCH ×3 (06:13→21:19)
[2016-08-21] MEDS: HEPARIN SODIUM - SQ 10,000 UNITS/ML VIAL SQ SCH ×3 (06:13→21:06)
[2016-08-21] MEDS: LEVOTHYROXINE SODIUM 150 MCG TAB PO SCH (06:13)
[2016-08-21] MEDS: MEROPENEM INJ 500 MG in SODIUM CHLORIDE 0.9% INJ 100 ML IV SCH (06:14)
[2016-08-21] MEDS: INSULIN ASPART SUPPLEMENTAL SCALE SQ SCH ×4 (06:20→21:00)
--- NOTE | 2016-08-21 07:38 | HHI.PR ---
Addendum to Inpatient Note Addendum Reason: Additional Documentation Additional Information CXR with streakiness. treated for aspiration pneumonia. Urine with no growth 48 hrs with new catheter. Cdiff positive diarrhea likely source of infection at this point. Recs DC Meropenem DC Zyvox IV Avoid systemic antibiotics in view of Cdiff diarrhea colitis Start Vanco oral. DC Flagyl (can worsen encephalopathy). d/w hospitalist. Charisse Pedraza MD Aug 21, 2016 07:38
[2016-08-21 08:00] VITALS: BP 123/60; PULSE 68; RESP 18; TEMP 98.8; O2SAT 94
[2016-08-21 08:11] LABS: HEMATOCRIT 27.2 % (35.0-46.0); MEAN CELL VOLUME 76.1 FL (80.0-100.0); MEAN CORPUSCULAR HEMOGLOBIN 24.2 PG (27.0-34.0); MEAN CORPUSCULAR HGB CONC 31.8 % (32.0-36.0); PLATELET COUNT 275 TH/MM3 (150-450); RED BLOOD COUNT 3.57 MIL/MM3 (4.00-5.30); RED CELL DISTRIBUTION WIDTH 18.2 % (11.6-17.2); WHITE BLOOD COUNT 10.3 TH/MM3 (4.0-11.0)
[2016-08-21 08:25] LABS: REVIEW FLAG FINAL
[2016-08-21] MEDS: VALPROIC ACID 250 MG CAP PO SCH ×2 (08:35→21:07)
[2016-08-21] MEDS: ASPIRIN EC 325 MG TABEC PO SCH (08:35)
[2016-08-21] MEDS: LACTOBACILLUS ACIDOPHILUS TAB PO SCH ×6 (08:35→17:34)
[2016-08-21] MEDS: LIOTHYRONINE SODIUM 5 MCG TAB PO SCH (08:35)
[2016-08-21] MEDS: METHADONE HCL 10 MG TAB PO SCH ×2 (08:36→21:07)
[2016-08-21] MEDS: GABAPENTIN 300 MG CAP PO SCH ×3 (08:36→17:22)
[2016-08-21] MEDS: SODIUM CHLORIDE 0.9% FLUSH 5 ML FLUSH IV FLUSH SCH ×2 (08:37→21:08)
[2016-08-21] MEDS: VANCOMYCIN 500 MG VIAL (FOR ORAL USE ONLY) PO SCH ×4 (08:45→21:05)
[2016-08-21 08:46] LABS: BICARBONATE 27.8 MEQ/L (21.0-32.0); POTASSIUM 3.9 MEQ/L (3.5-5.1)
[2016-08-21] MEDS ORDERED: metroNIDAZOLE 500 MG TAB PO SCH (09:00)
[2016-08-21] MEDS: MUPIROCIN 2% OINT 22 GM TUBE TOPICAL SCH ×2 (09:06→21:00)
--- NOTE | 2016-08-21 09:27 | HHI.NPPN ---
Subjective General Problems: Anemia Renal Failure: Chronic, Acute, Stage III History of Present Illness The patient is a 61 yo [place] female who has has multiple recent hospitalizations regarding BLE wounds. This admission has been since 07/15 when she was transferred from [facility] for worsening leg wounds. She has had extensive w /u and involvement with vascular surgery and wound care to try to salvage her extremities. She currently is medicated and not a very reliable historian, so much of history is obtained thru previous records. She has a significant PMHx of CKD, DM, cardiomyopathy from reported contrast- induced flash pulmonary edema with EF of 35% on echo from 07/29, hypothyroidism. She has had multiple issues with her renal functions in the past with fluctuating baseline. As per records, baseline SCr ~1.3. We have been consulted regarding her fluid retention and declining UOP. Interval History Pt very confused this AM. Visibly upset and crying. Able to be calmed but only temporarily. C diff positive (Kaila Pickett) Review of Systems General General Remarks Unable to obtain (Kaila Pickett) Objective Data Data 08/20/16 08/21/16 19:00 07:00 Intake Total 749 ml Output Total 200 ml 1975 ml Balance 549 ml -1975 ml Intake Oral 240 ml IV Total 509 ml Output Urine Total 200 ml 1975 ml Vital Signs Date Time Temp Pulse Resp B/P Pulse Ox O2 Delivery O2 Flow Rate FiO2 08/21/16 04:00 99.0 69 20 117/64 98 08/21/16 00:00 99.0 76 18 125/58 93 08/20/16 23:12 126/58 08/20/16 20:45 Nasal Cannula 2.00 08/20/16 20:00 98.6 75 18 126/61 95 08/20/16 16:00 97.4 73 20 114/57 92 08/20/16 11:42 97.9 65 20 96/54 91 (Kaila Pickett) -: 08/21/16 0630 08/21/16 0630 Microbiology 08/20/16 Stool Occult Blood (LEONELA) - Final, Complete HEMOCCULT NEGATIVE Medication Review Current Medications Medications (Trade) Dose Ordered Sig/Virgilio Route Start Time Stop Time Status Last Admin (NS Flush) 2 ml UNSCH PRN IV FLUSH 07/15/16 19:45 08/12/16 05:30 (NS Flush) 2 ml BID IV FLUSH 07/15/16 21:00 08/21/16 08:37 (Reglan Inj) 5 mg Q6H PRN IV 07/15/16 19:45 (Heparin Inj) 5,000 units Q8HR SQ 07/15/16 22:00 08/21/16 06:13 Miscellaneous Information 1 Q361D XX 07/15/16 19:45 07/15/16 19:45 (Chlorhexidine 2% Cloth) Taper DAILY@04 TOP 07/16/16 04:00 07/12/17 03:59 07/17/16 03:11 (Chlorhexidine 2% Cloth) 3 pack UNSCH PRN TOP 07/15/16 19:45 (Isordil) 5 mg Q8HR PO 07/15/16 22:00 08/21/16 06:13 (Lactinex) 1 tab TID PO 07/16/16 09:00 08/21/16 08:35 (Synthroid) 150 mcg DAILY@06 PO 07/16/16 06:00 08/21/16 06:13 (Cytomel) 5 mcg DAILY PO 07/16/16 09:00 08/21/16 08:35 (Pill Splitter) 1 ea UNSCH PRN OTHER 07/15/16 21:30 (Ecotrin Ec) 325 mg DAILY PO 07/16/16 09:00 08/21/16 08:35 (Dilaudid Pf Inj) 0.5 mg Q4H PRN IV PUSH 07/18/16 11:45 08/19/16 16:27 (Haldol Inj) 2 mg Q6H PRN IM 07/19/16 12:30 Hold 07/30/16 01:29 (Ativan Inj) 1 mg Q6H PRN IV PUSH 07/19/16 12:30 Hold 07/28/16 06:09 (D50w (Vial) Inj) 25 ml UNSCH PRN IV PUSH 07/23/16 11:00 (Glucagon Inj) 1 mg UNSCH PRN OTHER 07/23/16 11:00 (Depakene) 250 mg Q12HR PO 07/27/16 09:00 08/21/16 08:35 (Vasotec Inj) 1.25 mg Q8H PRN IV PUSH 07/28/16 16:00 (Levemir Inj) 5 units HS SQ 07/30/16 21:00 08/20/16 23:02 Melatonin 5 mg 5 mg HS PO 07/30/16 21:00 08/20/16 22:59 (Gentamicin Inj/ NS Irr Btl) 1,005 ml @ 0 mls/hr UNSCH PRN IRRIGATION 07/31/16 13:30 (KlonoPIN) 0.5 mg Q8H PRN PO 08/12/16 12:45 08/16/16 18:21 (Dolophine) 2.5 mg Q12HR PO 08/12/16 21:00 08/21/16 08:36 (Tylenol) 500 mg Q6H PRN PO 08/13/16 17:15 (SEROquel) 6.25 mg HS PO 08/14/16 21:00 08/20/16 22:59 (SEROquel) 6.25 mg DAILY PRN PO 08/14/16 12:45 (Bactroban 2% Oint) 1 applic Q12HR TOPICAL 08/15/16 15:00 08/21/16 09:06 (Hydrocortisone 1% Cream) 1 applic Q8H TOPICAL 08/15/16 20:00 08/21/16 04:00 (Lactinex) 1 tab TID PO 08/16/16 09:00 08/19/16 17:35 (Neurontin) 600 mg TID PO 08/18/16 18:00 08/21/16 08:36 (Albumin 25% Inj) 12.5 gm Q8H IV 08/20/16 20:00 08/21/16 03:59 (Bumex Inj) 1 mg Q8H IV PUSH 08/20/16 20:00 08/21/16 04:32 (VANCOMYCIN for oral use only) 500 mg QID PO 08/21/16 09:00 08/21/16 08:45 (Kaila Pickett) Physical Exam General Appearance: Anxious (Kaila Pickett) Eyes Eye Exam: Pupils Equal (Kaila Pickett) Throat Throat Exam: Oral Mucosa [place] & Moist (Kaila Pickett) Pulmonary Resp Exam: Breath Sounds Equal, Decreased Bases (Kaila Pickett) Cardiology CV Exam: Regular, Normal Sinus Rhythm (Kaila Pickett) Gastrointestinal/Abdomen GI Exam: Soft, Non-Tender, Bowel Sounds Present (Kaila Pickett) Genitourinary Exam: Clear Urine (Kaila Pickett) Extremeties Extremities Exam: Pitting Edema Extremeties Remarks significant generalized anasarca. Mild improvement form yesterday (Kaila Pickett) Neurologic Neuro Exam: Awake, Stuporous (Kaila Pickett) Assessment/Plan Assessment Summary: JAYLAN/Acute Renal Failure, Dehydration, Hypertension, CKD Stage III Problem List: (1) Chronic kidney disease (CKD) Plan: Although SCr is "normal", her renal US is consistently with medical renal disease. I suspect that her actual renal function is worse that what labs are showing given her massive fluid overload. Previous labs show potential baseline SCr of 1.3 ANCA and autoimmune work up has been ordered by Dr. Pedraza. Will also check SPEP, FRANCESCA, and K/L ratio given her CKD, hypoalbuminemia, and anemia (2) Cardiomyopathy Plan: Pt UOP picked up with IV Bumex and Albumin Continue. As BP holding, may be able to increase Bumex to 2mg if needed. (3) Uncontrolled diabetes mellitus Plan: Mgmt as per primary team (4) Hypertension Plan: As per hx, hypotensive as of late. Monitor. (5) complicated/infected/necrotic foot and leg wounds Plan: Mgmt as per WC & vacular teams (6) Anemia Plan: Fe stores low. Would defer Venofer in view of infection Consider po Fe if agreeable by primary Monitor (Kaila Pickett) Plan Continue bumetanide at current dosage for the present. 1 dose Diuril as ordered. The exam, history, and the medical decision-making described in the above note were completed with the assistance of the PALouisC. I reviewed and agree with the findings presented. (Marco Antonio Estrada MD) Kaila Pickett Aug 21, 2016 09:27 Marco Antonio Estrada MD Aug 21, 2016 18:53
[2016-08-21] MEDS: HYDROmorphone HCL PF 1 MG/ML VIAL IV PUSH PRN (10:11)
[2016-08-21 12:00] VITALS: BP 137/59; PULSE 72; RESP 18; TEMP 97.2; O2SAT 100
--- NOTE | 2016-08-21 15:00 | HHI.HCPN ---
Reason for visit a. To assist with evaluation and management of symptoms including: Lower extremity pain; confusion; lethargy b. To assist medical decision maker(s) with: better understanding of current medical conditions; weighing benefits/burdens of medical treatment options; making medical treatment decisions. . Subjective/Interval History Patient is alert this afternoon, crying out intermittently, and intermittently confused. The only discomfort she complains of now is "my ass hurts from sitting in this bed so much. She remains on methadone low-dose scheduled, and on the low-dose quetiapine. The patient's daughter reports she was present during the dressing changes of the legs this morning and that there was some new tissue growth and she thought that overall the left leg appeared better. C. difficile is now positive . . Family/friend interactions Patient's daughter Blanche is at the bedside. She is encouraged by the patient being more alert today, and eating a little better today. 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 . Advance Directives Living Will: Never completed Health Care Surrogate: Never completed Durable Power of Alarm Operator: Completed, but not made available Advance Directive Specifics Date completed: Family reports there is a completed POA document -- not available to us at this time. Unknown date. . Health Care Surrogate(s): is reportedly the health care POA. Even if there is no documented designation of health care POA or surrogate, he would serve as proxy. Spoke with in person on 08/12/16. He tells me how he knows nothing about health care and is fine if patient's daughter Blanche serves as proxy. If does not want to serve, it would fall to both son and daughter. Patient 's son also defers decision-making to patient's daughter Blanche, as he is often out of the country and unavailable. . Documented care wishes: No documented wishes of patient's expressed health care goals/preferences. . Objective Vital Signs Date Time Temp Pulse Resp B/P Pulse Ox O2 Delivery O2 Flow Rate FiO2 08/21/16 12:00 97.2 72 18 137/59 100 08/21/16 08:00 Nasal Cannula 2.00 08/21/16 08:00 98.8 68 18 123/60 94 08/21/16 04:00 99.0 69 20 117/64 98 08/21/16 00:00 99.0 76 18 125/58 93 08/20/16 23:12 126/58 08/20/16 20:45 Nasal Cannula 2.00 08/20/16 20:00 98.6 75 18 126/61 95 08/20/16 16:00 97.4 73 20 114/57 92 Intake & Output 08/21/16 08/21/16 07:00 19:00 Intake Total 500 ml Output Total 1975 ml 1150 ml Balance -1975 ml -650 ml Intake Oral 500 ml Output Urine Total 1975 ml 1150 ml # Bowel Movements 0 Physical Exam CONSTITUTIONAL/GENERAL: This is an adequately nourished patient. Occasionally calls out, confused at times. No distress. SKIN: No jaundice. Ecchymoses on upper extremities. I did not remove the patient's lower extremity dressings which are wet. Dry, gangrenous changes are noted on the digits of both feet. Skin temperature appropriate. Not diaphoretic. There is a rash on the left side of the face and neck that seems to be healing. CARDIOVASCULAR: Regular rate and rhythm without gallops, or rubs. 2/6 systolic murmur heard. No JVD. RESPIRATORY/CHEST: Symmetric, unlabored respirations. Clear to auscultation. Breath sounds equal bilaterally. No wheezes, rales, or rhonchi. GASTROINTESTINAL: Abdomen soft, non-tender, nondistended. No hepato-splenomegaly , or palpable masses. No guarding. Bowel sounds present. MUSCULOSKELETAL: Both lower extremities are edematous. Dressing was not removed from her wounds. Dry gangrenous changes to the digits of both feet. Thick-appearing heel eschars. NEUROLOGICAL: Moves all extremities. More alert PSYCHIATRIC: Occasional agitation. . Diagnostic Tests Laboratory Laboratory Tests Test 08/18/16 08/19/16 08/19/16 08/20/16 16:13 00:03 11:10 12:52 Hemoglobin 6.9 GM/DL 9.0 GM/DL (11.6-15.3) (11.6-15.3) Hematocrit 23.1 % 29.8 % (35.0-46.0) (35.0-46.0) Blood Type A POSITIVE Antibody Screen NEGATIVE Crossmatch Leukocyte-Reduced Red Blood Cells Blood Bank Comment White Blood Count 13.3 TH/MM3 (4.0-11.0) Red Blood Count 3.83 MIL/MM3 (4.00-5.30) Mean Corpuscular Volume 77.8 FL (80.0-100.0) Mean Corpuscular Hemoglobin 23.4 PG (27.0-34.0) Mean Corpuscular Hemoglobin 30.1 % Concent (32.0-36.0) Red Cell Distribution Width 17.8 % (11.6-17.2) Platelet Count 262 TH/MM3 (150-450) Mean Platelet Volume 6.9 FL (7.0-11.0) Neutrophils (%) (Auto) 72.9 % (16.0-70.0) Lymphocytes (%) (Auto) 15.9 % (9.0-44.0) Monocytes (%) (Auto) 8.1 % (0.0-8.0) Eosinophils (%) (Auto) 2.8 % (0.0-4.0) Basophils (%) (Auto) 0.3 % (0.0-2.0) Neutrophils # (Auto) 9.7 TH/MM3 (1.8-7.7) Lymphocytes # (Auto) 2.1 TH/MM3 (1.0-4.8) Monocytes # (Auto) 1.1 TH/MM3 (0-0.9) Eosinophils # (Auto) 0.4 TH/MM3 (0-0.4) Basophils # (Auto) 0.0 TH/MM3 (0-0.2) CBC Comment AUTO DIFF Differential Total Cells 100 Counted Neutrophils % (Manual) 79 % (16-70) Band Neutrophils % 9 % (0-6) Lymphocytes % 6 % (9-44) Monocytes % 3 % (0-8) Eosinophils % 2 % (0-4) Neutrophils # (Manual) 11.8 TH/MM3 (1.8-7.7) Metamyelocytes 1 % (0-1) Differential Comment FINAL DIFF MANUAL Toxic Granulation 1+ (NORMAL) Platelet Estimate NORMAL (NORMAL) Platelet Morphology Comment NORMAL (NORMAL) Sodium Level 145 MEQ/L (136-145) Potassium Level 4.0 MEQ/L (3.5-5.1) Chloride Level 110 MEQ/L (98-107) Carbon Dioxide Level 29.6 MEQ/L (21.0-32.0) Anion Gap 5 MEQ/L (5-15) Blood Urea Nitrogen 20 MG/DL (7-18) Creatinine 0.88 MG/DL (0.50-1.00) Estimat Glomerular Filtration 65 ML/MIN (>89) Rate Random Glucose 86 MG/DL (74-106) Calcium Level 7.2 MG/DL (8.5-10.1) Protein Corrected Calcium 8.3 MG/DL (8.5-10.1) B-Type Natriuretic Peptide 301 PG/ML (0-100) Total Protein 5.1 GM/DL (6.4-8.2) C-Reactive Protein 15.70 MG/DL (0.00-0.30) Rheumatoid Factor Screen NEGATIVE (NEGATIVE) Rheumatoid Factor Titer IU/ML (0.0-14.9) Hepatitis A IgM Antibody NEGATIVE (NEGATIVE) Hepatitis B Surface Antigen NEGATIVE (NEGATIVE) Hepatitis B Core IgM Antibody NEGATIVE (NEGATIVE) Hepatitis C Antibody NEGATIVE (NEGATIVE) HIV (1&2) Antibody NEGATIVE (NEGATIVE) Test 08/20/16 08/20/16 08/21/16 16:10 20:52 06:30 Stool C. difficile Toxin (PCR) POSITIVE (NEGATIVE) Stl C. difficile Toxin PRESUMPTIVE Epiderm 027 POSITIVE (NEGATIVE) Parathyroid Hormone (Intact) 37.4 PG/ML (12.4-76.8) Complement C3 92 MG/DL (90-180) Complement C4 46 MG/DL (10-40) Iron Level 13 MCG/DL (50-170) Total Iron Binding Capacity 64 MCG/DL (250-450) Percent Iron Saturation 20.2 % (20-50) Ferritin 269 NG/ML (8-252) Total Protein 5.1 GM/DL (6.0-7.6) 25-Hydroxy Vitamin D Total 31.4 ng/ML (30-100) Immunoglobulin G Total 1280 MG/DL (650-1610) Immunoglobulin A 448 MG/DL (85-468) Immunoglobulin M 71 MG/DL (45-276) Immunoglobulin Orient/Lambda 1.79 Ratio (1.57-3.93) Orient Light Chain Analysis 366 MG/DL (170-370) Lambda Light Chain Analysis 205 MG/DL (90-210) White Blood Count 10.3 TH/MM3 (4.0-11.0) Red Blood Count 3.57 MIL/MM3 (4.00-5.30) Hemoglobin 8.6 GM/DL (11.6-15.3) Hematocrit 27.2 % (35.0-46.0) Mean Corpuscular Volume 76.1 FL (80.0-100.0) Mean Corpuscular Hemoglobin 24.2 PG (27.0-34.0) Mean Corpuscular Hemoglobin 31.8 % Concent (32.0-36.0) Red Cell Distribution Width 18.2 % (11.6-17.2) Platelet Count 275 TH/MM3 (150-450) Mean Platelet Volume 7.1 FL (7.0-11.0) Sodium Level 142 MEQ/L (136-145) Potassium Level 3.9 MEQ/L (3.5-5.1) Chloride Level 107 MEQ/L (98-107) Carbon Dioxide Level 27.8 MEQ/L (21.0-32.0) Anion Gap 7 MEQ/L (5-15) Blood Urea Nitrogen 16 MG/DL (7-18) Creatinine 0.63 MG/DL (0.50-1.00) Estimat Glomerular Filtration 96 ML/MIN (>89) Rate Random Glucose 91 MG/DL (74-106) Calcium Level 7.4 MG/DL (8.5-10.1) Phosphorus Level 0.7 MG/DL (2.5-4.9) Albumin 1.4 GM/DL (3.4-5.0) Result Diagram: 08/21/16 0630 08/21/16 0630 Microbiology Microbiology Date/Time Procedure Status Source Growth 08/20/16 16:10 Stool Occult Blood (LEONELA) - Final Complete Stool Stool HEMOCCULT NEGATIVE 08/20/16 16:10 Cancelled Stool Stool Procedures 07/31/2016 Excision and debridement of both legs, extensive necrotic wounds approximately 30 x 25 cm area on each side, total 1000 to 1100 cm square, down to the subcutaneous tissue and tendon on the left side. 08/08/2016 1. Selective right lower extremity arteriogram. 2. Balloon angioplasty with a 4 mm x 2200 mm and then a 5 x 200 mm Medtronic angioplasty balloon of the right superficial femoral and proximal popliteal artery. Note that patient had these additional procedures on prior admissions: * Bilateral lower extremity wound debridements 05/15/16 * Bilateral LE Debridements and Left SFA angioplasty on 06/23/16 . Assessment and Plan Disease Oriented Problem List: (1) complicated/infected/necrotic foot and leg wounds (2) PVD (peripheral vascular disease) Comment: With infected/nonhealing wounds and gangrene (3) DM (diabetes mellitus), type 2, uncontrolled, periph vascular complic (4) CHF (congestive heart failure) (5) Hypertension (6) Cellulitis of left lower extremity (7) Delirium due to another medical condition (8) VT (ventricular tachycardia) (9) Ulcer of heel and midfoot (10) Hypothyroidism (11) Anemia (12) Urinary tract infection Comment: Cx of 08/11/16 growing out E coli ESBL . Symptom Scale: (1) Pain 0-10 Scale: Unable to quantify Comment: Patient unable to quantify or qualify her own pain. There is frequent moaning and calling out suggesting the pain is quite severe but at times hollering appears more due to delirium than to pain.. Pain most likely due to ischemia and the wounds themselves. May be a component of neuropathic pain from the diabetes. . (2) Confusion 0-10 Scale: Unable to quantify Comment: Confusion is probably multifactorial. Patient apparently was cognitively sharp up until about 05/13/2016. Has had intermittent confusion since including hallucinations and disorientation. Now with known UTI which may be contributing. . Pertinent Non-Medical Issues Psychosocial: Psychosocial support from and daughter (lives locally). Son in [place] is very involved, but is often working out of the country. Spiritual: [employer]. Had been a member of [employer]. Legal: Family reports there is a completed POA for finance and health care. and patient's son are OK yielding decision making to patient's daughter. Ethical issues impacting care: Patient is currently incapacitated due to delirium. . Important Contacts * Alfredo Lemos (spouse) [phone] * Kalpesh (son) [phone] * Blanche (daughter) [phone] . Prognosis The patient has severe peripheral vascular disease and accompanying refractory lower extremity wounds. Wounds have worsened in spite of aggressive care beginning in March 2016. She has undergone re-vascularization procedures on both lower extremities since May. Wounds now involve tendon structures in the feet. Patient might be able to benefit and achieve healing with hyperbaric oxygen. Otherwise she will likely need bilateral below the knee amputations. Prognosis greatly depends on success of managing these infections/wounds. While these infections/wounds continue, she remains at risk for sepsis. Based on the senior solutions consultant's notes, it appears unlikely regardless of treatment course that she will be ambulating independently in the future. Her success in any type of rehabilitation will also depend on her ability to clear cognitively, improve her nutritional status, and have adequate pain relief without accompanying oversedation. . Code Status: Full Code Plan ==CODE STATUS: Full code ==Decision making: Patient is currently incapacitated to make her own health care decisions. She is confused and it is unclear if/when she will regain capacity. Although her husbandJohnis technically her health care decision- maker, he and the patient's son have both ceded decision-making to the patient' s daughter Blanche. == Goals of medical treatment: At this time goals are aggressive. 08/19/16: Daughter Blanche reported that she and her brother and her stepfather are all to a point where they are feeling that the patient may be better off having the amputations completed "to give her a chance at recovery," rather than to continue down this road where the patient seems to be getting weaker, more confused, and is eating minimal calories??? It is difficult to see the path forward that includes successful hyperbaric treatment and subsequent surgical treatment of these nonhealing/infected wounds. For hyperbaric 02 treatments she would need to be home and to be able to tolerate those treatments, which would require improvements in her nutritional status and strength, as well as a prolonged infection free time that allowed her to stay out of the hospital. She would also need better pain control and delirium control. It seems doubtful to me that all of this can fall into place; rather, she seems to be continuing to decline. Autoimmune work-up ordered 08/20/16. == Confusion: Her confusion/delirium is likely multifactorial; we will continue the low-dose quetiapine for now. == Pain: Pain appears mostly secondary to ischemic pain and wound pain in the lower extremities. She may also have some lower extremity pain secondary to diabetic neuropathy. Patient is unable to quantify or qualify her pain adequately due to her cognitive challenges. She apparently had a negative reaction to fentanyl. She became too sedated on higher dose gabapentin. Methadone is bieng continued low-dose.. Hydrocodone has been stopped. Will leave prn hydromorphone in place for breakthrough. When patient is screaming, it is understandably difficult for nursing staff to differentiate between pain and delirium. == Wounds: The family has stated that the wounds began on the abdomen and buttock which make it less likely that these wounds began because of PVD. Also , vascular surgery feels that the wounds are out of proportion to the level of vascular disease. Dr. White is wondering about an underlying autoimmune disease to explain wounds that appear out of proportion to her vascular disease.....work-up ordered 08/20/16. == Disposition: Unclear at this time. If she does not improve enough to get out of the hospital, hyperbaric treatments will not proceed, and I suspect she will continue to decline.. == Palliative care will continue to follow the patient to assist with symptom management and to further clarify goals of medical treatment as the clinical course evolves. . Time Spent Total Floor Time (mins): 41 Face to Face Time (mins): 20 >50% Counseling/Coord of Care: Yes (d/w/ RN) Attestation To help prompt me to consider important information that might be impacting today's encounter and assessment, information from prior notes written by myself or my colleagues may have been "brought forward" into today's note. My signature on this note, however, is an attestation that I personally performed the exam, history, and/or decision-making noted today, and, unless otherwise indicated, the interactions with patient, family, and staff as well as the review of records all occurred today. I also attest that the listed assessment and stated plan reflect my best clinical judgment today based on the combination of historical information, prior notes, and today's exam/ interactions. When time spent is documented, it refers only to time spent today by the signer, or if indicated, combined time spent today by collaborating physician/nurse practitioner. Amy Martinez MD Aug 21, 2016 15:00
--- NOTE | 2016-08-21 18:57 | HHI.PR ---
Addendum to Inpatient Note Addendum Reason: Additional Documentation Additional Information Patient has hyperphosphatemia. Neutra-Phos ordered. Low phosphorus most likely related to poor nutritional intake. Marco Antonio Estrada MD Aug 21, 2016 18:57
[2016-08-21 20:00] VITALS: BP 119/55; PULSE 82; RESP 18; TEMP 99.2; O2SAT 98
[2016-08-21] MEDS ORDERED: CHLOROTHIAZIDE SOD 500 MG VIAL IV ONE (20:00)
--- NOTE | 2016-08-21 20:52 | HHI.PR ---
Subjective Remarks Follow up for lower ext gangrene, PVD, wound, severe neuropathic pain, C. Diff. Patient reports no pain. However, she still screams. When we talk to her, she appears to be calm and pleasant. No fever, chills. Objective Vitals Vital Signs Date Time Temp Pulse Resp B/P Pulse Ox O2 Delivery O2 Flow Rate FiO2 08/21/16 20:00 99.2 82 18 119/55 98 08/21/16 12:00 97.2 72 18 137/59 100 08/21/16 08:00 Nasal Cannula 2.00 08/21/16 08:00 98.8 68 18 123/60 94 08/21/16 04:00 99.0 69 20 117/64 98 08/21/16 00:00 99.0 76 18 125/58 93 08/20/16 23:12 126/58 I/O 08/20/16 08/20/16 08/20/16 08/21/16 08/21/16 08/21/16 07:00 15:00 23:00 07:00 15:00 23:00 Intake Total 320 ml 749 ml 500 ml Output Total 500 ml 200 ml 1975 ml 1150 ml Balance -180 ml 549 ml -1975 ml -650 ml Intake Oral 120 ml 240 ml 500 ml IV Total 200 ml 509 ml Output Urine Total 500 ml 200 ml 1975 ml 1150 ml # Bowel Movements 2 0 Result Diagram: 08/21/16 0630 08/21/16 0630 Imaging Last Impressions Chest X-Ray 08/19/16 0000 Signed Impressions: Service Date/Time: Friday, August 19, 2016 18:46 - CONCLUSION: 1. Bibasilar streakiness consistent with atelectasis and/or infiltrates. 2. Cardiomegaly. 3. Poor inspiratory result. Shamar Banuelos MD Upper Extremity Ultrasound 07/28/16 0000 Signed Impressions: Service Date/Time: Thursday, July 28, 2016 14:34 - CONCLUSION: No DVT is identified within the right upper extremity. Alfredo Eng MD Brain MRI 07/20/16 0000 Signed Impressions: Service Date/Time: Wednesday, July 20, 2016 09:15 - CONCLUSION: No acute intracranial abnormality. Moderately severe chronic white matter changes, nonspecific but most likely small vessel ischemia. Alfredo Sneed MD Head CT 07/19/16 0000 Signed Impressions: Service Date/Time: Tuesday, July 19, 2016 09:58 - CONCLUSION: No acute intracranial findings. João Otoole MD Foot X-Ray 07/16/16 0000 Signed Impressions: Service Date/Time: Saturday, July 16, 2016 17:34 - CONCLUSION: 1. Nonspecific soft tissue swelling. No acute bone destruction demonstrated. 2. Mild talonavicular and navicular/cuneiform degenerative changes. 3. Second through fifth hammertoe. 4. Moderate-sized heel spur. Alfredo Sneed MD Objective Remarks GENERAL: Alert, Screams in pain episodically. SKIN: Warm and dry. HEAD: Normocephalic. EYES: No scleral icterus. No injection or drainage. NECK: Supple, trachea midline. No JVD or lymphadenopathy. CARDIOVASCULAR: Regular rate and rhythm without murmurs, gallops, or rubs. RESPIRATORY: Breath sounds equal bilaterally. No accessory muscle use. GASTROINTESTINAL: Abdomen soft, non-tender, nondistended. MUSCULOSKELETAL: Left foot has multiple toes with gangrenous changes. Right foot with digit 3 gangrenous changes. Both lower ext above ankle wrapped in dressing. BACK: Nontender without obvious deformity. No CVA tenderness. Procedures 08/08/2016 PROCEDURE 1. Selective right lower extremity arteriogram. 2. Balloon angioplasty with a 4 mm x 2200 mm and then a 5 x 200 mm Medtronic angioplasty balloon of the right superficial femoral and proximal popliteal artery. 07/31/2016 Excision and debridement of both legs, extensive necrotic wounds approximately 30 x 25 cm area on each side, total 1000 to 1100 cm square, down to the subcutaneous tissue and tendon on the left side. A/P Problem List: (1) Cellulitis of left lower extremity ICD Code: L03.116 Status: Acute (2) Delirium due to another medical condition ICD Code: F05 Status: Acute (3) Neuropathic pain ICD Code: M79.2 Status: Acute Assessment and Plan Pt. is 61-year-old female, with multiple admissions, with history of cellulitis of legs, severe PVD, diabetes and cardiomyopathy EF of 30% was at the rehabilitation facility when she became more altered lethargic and hypoxic. Rapid response team was called and transferred patient to ICU. In the ICU patient remains confused and lethargic responsive to pain with a stable blood pressure and saturation of 100% on 40% face mask. Patient has improved and was transferred to regular medical/ surgical unit. During this hospitalization, plastic surgery, podiatry, vascular surgery followed this patient. Both podiatry and plastic surgery recommended hyperbaric treatments and future skin graft if wound beds are healed. Vascular surgery recommended against amputation and stated that her leg blood supply is adequate. Unfortunately, hyperbaric treatments can only be done in the outpatient setting if patient can go home. It cannot be done while in-patient or from SNF due to financial constraints. Our attempt to transfer patient to [facility] was not successful. - Chronic lower ext wound - Peripheral vascular disease - Severe neuropathic pain - Plastic surgery signed off. They recommended hyperbaric chamber and future skin graft. - Reconsulted Plastic surgery today - no service available today. May consult again when Dr. Pepe is available. - Continue Superior, Dilaudid PRN for pain. - Gabapentin 600mg TID. - Continue low dose Seroquel, Methadone per Palliative care. - Since hyperbaric tx is not a viable option and patient cannot be discharged home, we looked into alternatives. - I discussed with customs officer (Dr. Altman) regarding an FDA approved topical O2 therapy - Numobag. - Numobag was developed by [employer] and has been used in the and civilian cases successfully. - I discussed with patient's daughter (Tanisha) and also with the company ( [employer]). - We will initiate the process of obtaining numobag and starting topical O2 therapy while patient is in the hospital. - If Patient improves enough to be able to go home or SNF, we can continue Numobag. - Both Dr. Altman (METEOROLOGY FACULTY MEMBER) and Nurse jewelry manager on the floor agreed with our plan to initiate Numobag. - C. Diff colitis - ID following. All abx discontinued and patient is currently on Vancomycin PO. - Left neck rash - could be contact dermatitis- improving - Continue topic abx, steroid. - UTI - Microbiology growing ESBL - Received Doxycycline -Anxiety, acute psychosis. - Received Zyprexa. If needed, we can use Zyprexa or Geodon. -Diabetes mellitus - Continue Levemir 5 units QHS and sliding scale insulin. Monitor for hypoglycemia. -Hypothyroidism - continue levothyroxine 150 g daily. -Hypertension - continue Valsartan 80mg QHS. -Cardiomyopathy - Continue Carvedilol 25mg BID, Valsartan, Isosorbide. -Hx of seizure activity - continue Valproic acid 250mg Q12hrs. -Anemia hgb 7.0 - recheck H&H --> 6.9. S/P two units of PRBCs. Hgb 8.6 on 08/21/2016. - Probable JAYLAN - Anasarca - Urine output is very low. Patient's last Albumin 1.3 which is likely the reason for anasarca. - Nephrology following. Currently on Albumin infusion as well as bumex. - If oral intake does not improve, alternative nutrition should be addressed. Will discuss with patient's daughter. Full code. Heparin SQ. Discussed with RN, patient's family, [employer] insurance follow up representative. Devi Alejo DO Aug 21, 2016 20:51
[2016-08-21] MEDS: INSULIN DETEMIR 100 UNITS/ML VIAL SQ SCH (21:00)
[2016-08-21] MEDS: POTASSIUM PHOSPHATE/SODIUM PHOSPHATE 250 MG TAB PO SCH (21:06)
[2016-08-21] MEDS: MELATONIN 5 MG TAB PO SCH (21:07)
[2016-08-21] MEDS: QUEtiapine FUMARATE 25 MG TAB PO SCH (21:07)
[2016-08-22] VITALS: BP 113/54; PULSE 80; RESP 18; TEMP 98.7; O2SAT 98
[2016-08-22] MEDS: ALBUMIN HUMAN 25% 12.5 GM/50 ML BAGP IV SCH ×2 (03:55→11:31)
[2016-08-22] MEDS: BUMETANIDE INJ 1 MG/4 ML VIAL IV PUSH SCH ×2 (03:55→12:44)
[2016-08-22] MEDS: CHLORHEXIDINE GLUCONATE 2 % 1 PACK (2 CLOTHS) TOP SCH (03:59)
[2016-08-22] MEDS: HYDROCORTISONE 1% CREAM 30 GM TOPICAL SCH ×3 (03:59→20:00)
[2016-08-22 04:00] VITALS: BP 119/56; PULSE 79; RESP 18; TEMP 98.6; O2SAT 98
[2016-08-22 05:25] LABS: HEMATOCRIT 25.9 % (35.0-46.0); MEAN CELL VOLUME 75.5 FL (80.0-100.0); MEAN CORPUSCULAR HEMOGLOBIN 24.6 PG (27.0-34.0); MEAN CORPUSCULAR HGB CONC 32.6 % (32.0-36.0); PLATELET COUNT 241 TH/MM3 (150-450); RED BLOOD COUNT 3.43 MIL/MM3 (4.00-5.30); RED CELL DISTRIBUTION WIDTH 18.1 % (11.6-17.2); WHITE BLOOD COUNT 9.3 TH/MM3 (4.0-11.0)
[2016-08-22 05:30] LABS: REVIEW FLAG FINAL
[2016-08-22 05:50] LABS: BICARBONATE 32.5 MEQ/L (21.0-32.0); POTASSIUM 3.6 MEQ/L (3.5-5.1)
[2016-08-22] MEDS: HEPARIN SODIUM - SQ 10,000 UNITS/ML VIAL SQ SCH ×3 (06:06→21:24)
[2016-08-22] MEDS: LEVOTHYROXINE SODIUM 150 MCG TAB PO SCH (06:07)
[2016-08-22] MEDS: INSULIN ASPART SUPPLEMENTAL SCALE SQ SCH ×4 (06:07→21:00)
[2016-08-22] MEDS: ISOSORBIDE DINITRATE 5 MG TAB PO SCH ×3 (06:07→21:24)
[2016-08-22] MEDS: clonazePAM 0.5 MG TAB PO PRN (07:39)
[2016-08-22] MEDS: LACTOBACILLUS ACIDOPHILUS TAB PO SCH ×6 (07:39→18:00)
[2016-08-22] MEDS: POTASSIUM PHOSPHATE/SODIUM PHOSPHATE 250 MG TAB PO SCH (07:41)
[2016-08-22] MEDS: ASPIRIN EC 325 MG TABEC PO SCH (07:42)
[2016-08-22] MEDS: VALPROIC ACID 250 MG CAP PO SCH ×2 (07:42→21:25)
[2016-08-22] MEDS: GABAPENTIN 300 MG CAP PO SCH ×3 (07:42→17:07)
[2016-08-22] MEDS: LIOTHYRONINE SODIUM 5 MCG TAB PO SCH (07:43)
[2016-08-22] MEDS: SODIUM CHLORIDE 0.9% FLUSH 5 ML FLUSH IV FLUSH SCH ×2 (07:43→21:25)
[2016-08-22 08:00] VITALS: BP 161/85; PULSE 94; RESP 20; TEMP 98.9; O2SAT 92
[2016-08-22] MEDS: VANCOMYCIN 500 MG VIAL (FOR ORAL USE ONLY) PO SCH ×4 (08:52→21:24)
[2016-08-22] MEDS: METHADONE HCL 10 MG TAB PO SCH ×2 (08:52→21:25)
[2016-08-22] MEDS: MUPIROCIN 2% OINT 22 GM TUBE TOPICAL SCH ×2 (08:54→21:00)
[2016-08-22 12:00] VITALS: BP 150/65; PULSE 82; RESP 18; TEMP 97; O2SAT 93
--- NOTE | 2016-08-22 13:51 | HHI.PR ---
Subjective Remarks Follow up for lower ext gangrene, PVD, wound, severe neuropathic pain, C. Diff. Patient is sitting up, trying to eat her lunch. Mentation appears to be better. No fever, chills. Pain well controlled. Objective Vitals Vital Signs Date Time Temp Pulse Resp B/P Pulse Ox O2 Delivery O2 Flow Rate FiO2 08/22/16 12:00 97.0 82 18 150/65 93 08/22/16 08:00 98.9 94 20 161/85 92 08/22/16 04:00 98.6 79 18 119/56 98 08/22/16 00:00 98.7 80 18 113/54 98 08/21/16 20:00 99.2 82 18 119/55 98 08/21/16 20:00 Nasal Cannula 2.00 I/O 08/21/16 08/21/16 08/21/16 08/22/16 08/22/16 08/22/16 07:00 15:00 23:00 07:00 15:00 23:00 Intake Total 500 ml 290 ml 220 ml Output Total 1975 ml 1150 ml 1000 ml 4250 ml Balance -1975 ml -650 ml -710 ml -4030 ml Intake Oral 500 ml 290 ml 220 ml Output Urine Total 1975 ml 1150 ml 1000 ml 4250 ml # Bowel Movements 0 1 0 Result Diagram: 08/22/169 08/22/169 Imaging Last Impressions Chest X-Ray 08/19/16 0000 Signed Impressions: Service Date/Time: Friday, August 19, 2016 18:46 - CONCLUSION: 1. Bibasilar streakiness consistent with atelectasis and/or infiltrates. 2. Cardiomegaly. 3. Poor inspiratory result. Shamar Banuelos MD Upper Extremity Ultrasound 07/28/16 0000 Signed Impressions: Service Date/Time: Thursday, July 28, 2016 14:34 - CONCLUSION: No DVT is identified within the right upper extremity. Alfredo Eng MD Brain MRI 07/20/16 0000 Signed Impressions: Service Date/Time: Wednesday, July 20, 2016 09:15 - CONCLUSION: No acute intracranial abnormality. Moderately severe chronic white matter changes, nonspecific but most likely small vessel ischemia. Alfredo Sneed MD Head CT 07/19/16 0000 Signed Impressions: Service Date/Time: Tuesday, July 19, 2016 09:58 - CONCLUSION: No acute intracranial findings. João Otoole MD Foot X-Ray 07/16/16 0000 Signed Impressions: Service Date/Time: Saturday, July 16, 2016 17:34 - CONCLUSION: 1. Nonspecific soft tissue swelling. No acute bone destruction demonstrated. 2. Mild talonavicular and navicular/cuneiform degenerative changes. 3. Second through fifth hammertoe. 4. Moderate-sized heel spur. Alfredo Sneed MD Objective Remarks GENERAL: Alert, Screams in pain episodically. SKIN: Warm and dry. HEAD: Normocephalic. EYES: No scleral icterus. No injection or drainage. NECK: Supple, trachea midline. No JVD or lymphadenopathy. CARDIOVASCULAR: Regular rate and rhythm without murmurs, gallops, or rubs. RESPIRATORY: Breath sounds equal bilaterally. No accessory muscle use. GASTROINTESTINAL: Abdomen soft, non-tender, nondistended. MUSCULOSKELETAL: Left foot has multiple toes with gangrenous changes. Right foot with digit 3 gangrenous changes. Both lower ext above ankle wrapped in dressing. BACK: Nontender without obvious deformity. No CVA tenderness. Procedures 08/08/2016 PROCEDURE 1. Selective right lower extremity arteriogram. 2. Balloon angioplasty with a 4 mm x 2200 mm and then a 5 x 200 mm EverybodyCartronic angioplasty balloon of the right superficial femoral and proximal popliteal artery. 07/31/2016 Excision and debridement of both legs, extensive necrotic wounds approximately 30 x 25 cm area on each side, total 1000 to 1100 cm square, down to the subcutaneous tissue and tendon on the left side. A/P Problem List: (1) Cellulitis of left lower extremity ICD Code: L03.116 Status: Acute (2) Delirium due to another medical condition ICD Code: F05 Status: Acute (3) Neuropathic pain ICD Code: M79.2 Status: Acute Assessment and Plan Pt. is 61-year-old female, with multiple admissions, with history of cellulitis of legs, severe PVD, diabetes and cardiomyopathy EF of 30% was at the rehabilitation facility when she became more altered lethargic and hypoxic. Rapid response team was called and transferred patient to ICU. In the ICU patient remains confused and lethargic responsive to pain with a stable blood pressure and saturation of 100% on 40% face mask. Patient has improved and was transferred to regular medical/ surgical unit. During this hospitalization, plastic surgery, podiatry, vascular surgery followed this patient. Both podiatry and plastic surgery recommended hyperbaric treatments and future skin graft if wound beds are healed. Vascular surgery recommended against amputation and stated that her leg blood supply is adequate. Unfortunately, hyperbaric treatments can only be done in the outpatient setting if patient can go home. It cannot be done while in-patient or from SNF due to financial constraints. Our attempt to transfer patient to [facility] was not successful. - Chronic lower ext wound - Peripheral vascular disease - Severe neuropathic pain - Plastic surgery signed off. They recommended hyperbaric chamber and future skin graft. - May consult again when Dr. Pepe is available. - Continue [place], Dilaudid PRN for pain. - Gabapentin 600mg TID. - Continue low dose Seroquel, Methadone per Palliative care. - Since hyperbaric tx is not a viable option and patient cannot be discharged home, we looked into alternatives. 08/21/2016 - I discussed with commanding officer homicide squad (Dr. Altman) regarding an FDA approved topical O2 therapy - Numobag. - Numobag was developed by [employer] and has been used in the and civilian cases successfully. - I discussed with patient's daughter (Tanisha) and also with the company ( [employer]). - We will initiate the process of obtaining numobag and starting topical O2 therapy while patient is in the hospital. - If Patient improves enough to be able to go home or SNF, we can continue Numobag. - Both Dr. Altman (ADVICE NURSE) and Nurse redevelopment manager on the floor agreed with our plan to initiate Numobag. - C. Diff colitis - ID following. All abx discontinued and patient is currently on Vancomycin PO. - Left neck rash - could be contact dermatitis- improving - Continue topic abx, steroid. - UTI - Microbiology growing ESBL - Received Doxycycline -Anxiety, acute psychosis. - Received Zyprexa. If needed, we can use Zyprexa or Geodon. -Diabetes mellitus - Continue Levemir 5 units QHS and sliding scale insulin. Monitor for hypoglycemia. -Hypothyroidism - continue levothyroxine 150 g daily. -Hypertension - continue Valsartan 80mg QHS. -Cardiomyopathy - Continue Carvedilol 25mg BID, Valsartan, Isosorbide. -Hx of seizure activity - continue Valproic acid 250mg Q12hrs. -Anemia hgb 7.0 - recheck H&H --> 6.9. S/P two units of PRBCs. Hgb 8.6 on 08/21/2016. - Probable JAYLAN - Anasarca - Urine output is very low. Patient's last Albumin 1.3 which is likely the reason for anasarca. - Nephrology following. Currently on Albumin infusion as well as bumex. - If oral intake does not improve, alternative nutrition should be addressed. Full code. Heparin SQ. Discussed with RN, patient's family, [employer] access services representative. Devi Alejo DO Aug 22, 2016 1:51 pm
[2016-08-22 13:52] LABS: BETA2 GLYCOPROTEIN I AB IGA LESS THAN 9.0 SAU (< OR = 20)
[2016-08-22] MEDS ORDERED: POTASSIUM CHLORIDE 10 MEQ CONTROLLED RELEASE TAB PO ONE (14:00)
--- NOTE | 2016-08-22 14:00 | HHI.NPPN ---
Subjective General Problems: Anemia Renal Failure: Chronic, Acute, Stage III History of Present Illness The patient is a 61 yo [place] female who has has multiple recent hospitalizations regarding BLE wounds. This admission has been since 07/15 when she was transferred from [facility] for worsening leg wounds. She has had extensive w /u and involvement with vascular surgery and wound care to try to salvage her extremities. She currently is medicated and not a very reliable historian, so much of history is obtained thru previous records. She has a significant PMHx of CKD, DM, cardiomyopathy from reported contrast- induced flash pulmonary edema with EF of 35% on echo from 07/29, hypothyroidism. She has had multiple issues with her renal functions in the past with fluctuating baseline. As per records, baseline SCr ~1.3. We have been consulted regarding her fluid retention and declining UOP. Interval History Patient is verbal but confused. Review of Systems General General Remarks Unable to obtain Objective Data Data 08/21/16 08/22/16 19:00 07:00 Intake Total 500 ml 510 ml Output Total 1150 ml 5250 ml Balance -650 ml -4740 ml Intake Oral 500 ml 510 ml Output Urine Total 1150 ml 5250 ml # Bowel Movements 0 1 Vital Signs Date Time Temp Pulse Resp B/P Pulse Ox O2 Delivery O2 Flow Rate FiO2 08/22/16 12:00 97.0 82 18 150/65 93 08/22/16 08:00 98.9 94 20 161/85 92 08/22/16 04:00 98.6 79 18 119/56 98 08/22/16 00:00 98.7 80 18 113/54 98 08/21/16 20:00 99.2 82 18 119/55 98 08/21/16 20:00 Nasal Cannula 2.00 -: 08/22/16 0429 08/22/16 0429 Physical Exam General Appearance: Comfortable Eyes Eye Exam: Pupils Equal Throat Throat Exam: Oral Mucosa [place] & Moist Pulmonary Resp Exam: Breath Sounds Equal, Decreased Bases Cardiology CV Exam: Regular, Normal Sinus Rhythm Gastrointestinal/Abdomen GI Exam: Soft, Non-Tender, Bowel Sounds Present Genitourinary Exam: Clear Urine Extremeties Extremities Exam: Pitting Edema Neurologic Neuro Exam: Awake, Stuporous Assessment/Plan Assessment Summary: JAYLAN/Acute Renal Failure, Dehydration, Hypertension, CKD Stage III Problem List: (1) Chronic kidney disease (CKD) Plan: Large diuresis overnight and volume status has improved significantly since initial consultation. At this point in time discontinue albumin as well as parenteral bumetanide. . Bumetanide by mouth 1 mg daily initially. May increase to 2 mg daily if required. I believe primary focus should be on maintaining patient's nutritional status. We'll defer this to primary care physician. In view of improvement in edema I will be signing off at this point in time. Patient's renal function is stable. Call for any additional advice if needed. Thanks. (2) Cardiomyopathy Plan: Blood pressure has improved and today actually somewhat elevated. Valsartan will be resumed at 40 mg daily but would hold if hypotension recurs. (3) Uncontrolled diabetes mellitus Plan: Mgmt as per primary team (4) Hypertension (5) complicated/infected/necrotic foot and leg wounds Plan: Mgmt as per WC & vacular teams (6) Anemia Plan: Fe stores low. Would defer Venofer in view of infection Consider po Fe if agreeable by primary Monitor Plan Continue bumetanide at current dosage for the present. 1 dose Diuril as ordered. The exam, history, and the medical decision-making described in the above note were completed with the assistance of the HERNANDO. I reviewed and agree with the findings presented. Marco Antonio Estrada MD Aug 22, 2016 14:00
[2016-08-22 15:53] LABS: MYELOPEROXIDASE LESS THAN 1.0 AI (<1.0); PROTEINASE-3 LESS THAN 1.0 AI (<1.0)
[2016-08-22 16:00] VITALS: BP 128/61; PULSE 81; RESP 18; TEMP 97; O2SAT 97
[2016-08-22 16:32] LABS: ANA SCREEN NEG (NEG)
[2016-08-22 20:00] VITALS: BP 134/58; PULSE 90; RESP 20; TEMP 99.1; O2SAT 92
[2016-08-22 20:59] LABS: ALPHA 2 GLOBULIN 0.94 GM/DL (0.22-1.00)
[2016-08-22 21:00] LABS: BETA GLOBULINS (SPE) 0.74 GM/DL (0.53-1.03)
[2016-08-22] MEDS: INSULIN DETEMIR 100 UNITS/ML VIAL SQ SCH (21:00)
[2016-08-22] MEDS: QUEtiapine FUMARATE 25 MG TAB PO SCH (21:25)
[2016-08-22] MEDS: MELATONIN 5 MG TAB PO SCH (21:25)
[2016-08-23 00:06] VITALS: BP 105/52; PULSE 77; RESP 20; TEMP 98.3; O2SAT 93
[2016-08-23 03:53] LABS: KAPPA/LAMBDA FREE 1.87 (0.26-1.65)
[2016-08-23 04:00] VITALS: BP 95/55; PULSE 88; RESP 16; TEMP 98; O2SAT 95
[2016-08-23] MEDS: HYDROCORTISONE 1% CREAM 30 GM TOPICAL SCH ×3 (04:00→20:00)
[2016-08-23] MEDS: CHLORHEXIDINE GLUCONATE 2 % 1 PACK (2 CLOTHS) TOP SCH (04:00)
[2016-08-23] MEDS: ISOSORBIDE DINITRATE 5 MG TAB PO SCH ×3 (05:46→21:30)
[2016-08-23] MEDS: LEVOTHYROXINE SODIUM 150 MCG TAB PO SCH (05:46)
[2016-08-23] MEDS: HEPARIN SODIUM - SQ 10,000 UNITS/ML VIAL SQ SCH ×3 (05:47→21:31)
[2016-08-23] MEDS: INSULIN ASPART SUPPLEMENTAL SCALE SQ SCH ×4 (05:48→21:00)
[2016-08-23 08:00] VITALS: BP 129/73; PULSE 95; RESP 16; TEMP 98; O2SAT 95
[2016-08-23] MEDS: clonazePAM 0.5 MG TAB PO PRN (08:32)
[2016-08-23] MEDS: BUMETANIDE 1 MG TAB PO SCH (08:35)
[2016-08-23] MEDS: VALPROIC ACID 250 MG CAP PO SCH ×2 (08:35→21:30)
[2016-08-23] MEDS: VALSARTAN 40 MG TAB PO SCH (08:35)
[2016-08-23] MEDS: LIOTHYRONINE SODIUM 5 MCG TAB PO SCH (08:35)
[2016-08-23] MEDS: GABAPENTIN 300 MG CAP PO SCH ×3 (08:36→17:27)
[2016-08-23] MEDS: LACTOBACILLUS ACIDOPHILUS TAB PO SCH ×7 (08:41→17:32)
[2016-08-23] MEDS: METHADONE HCL 10 MG TAB PO SCH ×2 (08:42→21:30)
[2016-08-23] MEDS: ASPIRIN EC 325 MG TABEC PO SCH (08:43)
[2016-08-23] MEDS: VANCOMYCIN 500 MG VIAL (FOR ORAL USE ONLY) PO SCH ×4 (08:44→21:30)
[2016-08-23] MEDS: MUPIROCIN 2% OINT 22 GM TUBE TOPICAL SCH ×2 (09:00→21:00)
--- NOTE | 2016-08-23 09:46 | HHI.PR ---
Subjective Remarks in no acute distress. afebrile. says that her pain is controlled. d/w the RN. Objective Vitals Vital Signs Date Time Temp Pulse Resp B/P Pulse Ox O2 Delivery O2 Flow Rate FiO2 08/23/16 08:00 98.0 95 16 129/73 95 08/23/16 04:00 98.0 88 16 95/55 95 08/23/16 00:06 98.3 77 20 105/52 93 08/22/16 20:00 Room Air 08/22/16 20:00 99.1 90 20 134/58 92 08/22/16 16:00 97.0 81 18 128/61 97 08/22/16 14:28 Room Air 08/22/16 12:00 97.0 82 18 150/65 93 I/O 08/22/16 08/22/16 08/22/16 08/23/16 08/23/16 08/23/16 07:00 15:00 23:00 07:00 15:00 23:00 Intake Total 220 ml 480 ml 240 ml 120 ml Output Total 4250 ml 2300 ml 400 ml 600 ml Balance -4030 ml -1820 ml -160 ml -480 ml Intake Oral 220 ml 480 ml 240 ml 120 ml Output Urine Total 4250 ml 2300 ml 400 ml 600 ml # Bowel Movements 0 0 1 Result Diagram: 08/22/1642808/22/16428 Imaging Last Impressions Chest X-Ray 08/19/16 0000 Signed Impressions: Service Date/Time: Friday, August 19, 2016 18:46 - CONCLUSION: 1. Bibasilar streakiness consistent with atelectasis and/or infiltrates. 2. Cardiomegaly. 3. Poor inspiratory result. Shamar Banuelos MD Upper Extremity Ultrasound 07/28/16 0000 Signed Impressions: Service Date/Time: Thursday, July 28, 2016 14:34 - CONCLUSION: No DVT is identified within the right upper extremity. Alfredo Eng MD Brain MRI 07/20/16 0000 Signed Impressions: Service Date/Time: Wednesday, July 20, 2016 09:15 - CONCLUSION: No acute intracranial abnormality. Moderately severe chronic white matter changes, nonspecific but most likely small vessel ischemia. Alfredo Sneed MD Head CT 07/19/16 0000 Signed Impressions: Service Date/Time: Tuesday, July 19, 2016 09:58 - CONCLUSION: No acute intracranial findings. João Otoole MD Foot X-Ray 07/16/16 0000 Signed Impressions: Service Date/Time: Saturday, July 16, 2016 17:34 - CONCLUSION: 1. Nonspecific soft tissue swelling. No acute bone destruction demonstrated. 2. Mild talonavicular and navicular/cuneiform degenerative changes. 3. Second through fifth hammertoe. 4. Moderate-sized heel spur. Alfredo Sneed MD Objective Remarks GENERAL: in no apparent distress. CARDIOVASCULAR: Regular rate and irregular rhythm without murmurs, gallops, or rubs. RESPIRATORY: Clear to auscultation. Breath sounds equal bilaterally. No wheezes , rales, or rhonchi. GASTROINTESTINAL: Abdomen soft, non-tender, nondistended. Normal, active bowel sounds MUSCULOSKELETAL: both legs covered with clean dressing. NEURO: awake and alert Procedures 08/08/2016 PROCEDURE 1. Selective right lower extremity arteriogram. 2. Balloon angioplasty with a 4 mm x 2200 mm and then a 5 x 200 mm [employer] angioplasty balloon of the right superficial femoral and proximal popliteal artery. 07/31/2016 Excision and debridement of both legs, extensive necrotic wounds approximately 30 x 25 cm area on each side, total 1000 to 1100 cm square, down to the subcutaneous tissue and tendon on the left side. Medications and IVs Current Medications Sodium Chloride (NS 1000 ml Inj) 1,000 ml @ 84 mls/hr [id number] IV Last administered on 08/05/16 16:12; Start 07/15/16 at 19:42; Stop 08/18/16 at 15:34 ; Status DC IV Flush (NS Flush) 2 ml UNSCH PRN IV FLUSH FLUSH AFTER USING IV ACCESS Last administered on 08/12/16 05:30; Start 07/15/16 at 19:45 IV Flush (NS Flush) 2 ml BID IV FLUSH Last administered on 08/22/16 21:25; Start 07/15/16 at 21:00 Fentanyl Citrate (fentaNYL INJ) 50 mcg Q3H PRN IV PUSH Pain scale 7-10 &/or sedation Last administered on 07/15/16 21:44; Start 07/15/16 at 19:45; Stop at 11:51; Status DC Famotidine (Pepcid Inj) 20 mg Q12HR IV PUSH Last administered on 07/15/16 20: 19; Start 07/15/16 at 21:00; Stop 07/15/16 at 21:24; Status DC Ondansetron HCl (Zofran Inj) 4 mg Q6H PRN IV NAUSEA OR VOMITING Last administered on 07/31/16 13:23; Start 07/15/16 at 19:45; Stop 08/12/16 at 20:17 ; Status DC Metoclopramide HCl (Reglan Inj) 5 mg Q6H PRN IV NAUSEA OR VOMITING; Start 07/15 at 19:45 Docusate Sodium (Colace) 100 mg BID PO Last administered on 08/07/16 21:00; Start 07/15/16 at 21:00; Stop 08/08/16 at 22:08; Status DC Albuterol/ Ipratropium (Duoneb Neb) 1 ampule Q2HR NEB PRN INH WHEEZING; Start 07/15/16 at 19:45 Heparin Sodium (Porcine) (Heparin Inj) 5,000 units Q8HR SQ Last administered on 08/23/16 05:47; Start 07/15/16 at 22:00 Miscellaneous Information 1 [id number] XX Last administered on 07/15/16 19:45; Start 07/15/16 at 19:45 Chlorhexidine Gluconate (Chlorhexidine 2% Cloth) 3 pack Taper DAILY@04 TOP Last administered on 07/17/16 03:11; Start 07/16/16 at 04:00; Stop 07/12/17 at 03:59 Chlorhexidine Gluconate (Chlorhexidine 2% Cloth) 3 pack UNSCH PRN TOP HYGIENIC CARE; Start 07/15/16 at 19:45 Acetaminophen (Ofirmev Inj) 1,000 mg Q6H PRN IV PAIN SCALE 1 TO 6; Start at 20:00; Stop 07/18/16 at 11:51; Status DC Ketorolac Tromethamine (Toradol Inj) 30 mg Q6H PRN IM PAIN SCALE 1 TO 7; Start 07/15/16 at 20:00; Stop 07/15/16 at 20:10; Status DC Ketorolac Tromethamine (Toradol Inj) 30 mg Q6H PRN IV PUSH PAIN 1-6 Last administered on 07/15/16 20:34; Start 07/15/16 at 20:15; Stop 07/18/16 at 11:51 ; Status DC Carvedilol (Coreg) 25 mg BID PO Last administered on 08/17/16 10:24; Start at 21:00; Stop 08/17/16 at 16:06; Status DC Fluconazole (Diflucan) 75 mg DAILY@17 PO Last administered on 07/16/16 17:03; Start 07/16/16 at 17:00; Stop 07/17/16 at 08:09; Status DC Isosorbide Dinitrate (Isordil) 5 mg Q8HR PO Last administered on 08/23/16 05:46 ; Start 07/15/16 at 22:00 Lactobacillus Acidophilus (Lactinex) 1 tab TID PO Last administered on 17:07; Start 07/16/16 at 09:00 Levofloxacin (Levaquin) 250 mg Q48H PO Last administered on 07/21/16 21:05; Start 07/15/16 at 22:00; Stop 07/23/16 at 16:37; Status DC Levothyroxine Sodium (Synthroid) 150 mcg DAILY@06 PO Last administered on 05:46; Start 07/16/16 at 06:00 Liothyronine Sodium (Cytomel) 5 mcg DAILY PO Last administered on 08/23/16 08: 35; Start 07/16/16 at 09:00 Non-Formulary Medication 325 mg DAILY PO ; Start 07/16/16 at 09:00; Status UNV Miscellaneous (Pill Splitter) 1 ea UNSCH PRN OTHER SEE LABEL COMMENTS; Start at 21:30 Famotidine (Pepcid Inj) 10 mg Q12HR IV PUSH Last administered on 07/17/16 07: 29; Start 07/16/16 at 09:00; Stop 07/18/16 at 10:59; Status DC Aspirin (Ecotrin Ec) 325 mg DAILY PO Last administered on 08/23/16 08:43; Start 07/16/16 at 09:00 Etomidate (Amidate Inj) 20 mg STK-MED ONCE .ROUTE ; Start 07/16/16 at 17:07; Stop 07/16/16 at 17:08; Status DC Famotidine (Pepcid Inj) 20 mg Q12HR IV PUSH Last administered on 08/12/16 09: 05; Start 07/18/16 at 21:00; Stop 08/12/16 at 20:17; Status DC Hydromorphone HCl (Dilaudid Pf Inj) 0.5 mg ONCE ONCE IV PUSH Last administered on 08/04/16 18:00; Start 07/18/16 at 11:45; Stop 07/18/16 at 11:46 ; Status DC Hydromorphone HCl (Dilaudid Pf Inj) 0.5 mg Q4H PRN IV PUSH breakthrough pain / dresing lori Last administered on 08/21/16 10:11; Start 07/18/16 at 11:45 Acetaminophen/ Hydrocodone Bitart ([place] 5-325 Mg) 1 tab Q6H PRN PO pain 2-10 Last administered on 08/12/16 09:04; Start 07/18/16 at 11:45; Stop 08/12/16 at 20:17; Status DC Diphenhydramine HCl 50 mg 50 mg STK-MED ONCE .ROUTE ; Start 07/19/16 at 11:20; Stop 07/19/16 at 11:21; Status DC Levetriacetam/ Sodium Chloride (Keppra Inj/NS Inj) 105 ml @ 420 mls/hr Q12HR IV Last administered on 07/20/16 08:19; Start 07/19/16 at 13:00; Stop at 16:25; Status DC Haloperidol Lactate (Haldol Inj) 2 mg Q6H PRN IM aggittation Last administered on 07/30/16 01:29; Start 07/19/16 at 12:30; Status Hold Lorazepam 1 mg 1 mg Q6H PRN IV PUSH seizures/agiatation Last administered on 06:09; Start 07/19/16 at 12:30; Status Hold Valproate Sodium 500 mg/Sodium Chloride 105 ml @ 105 mls/hr Q8H IV Last administered on 07/25/16 09:26; Start 07/20/16 at 18:00; Stop 07/25/16 at 09:54; Status DC Cefepime HCl/ Sodium Chloride (Maxipime Inj/NS Inj) 100 ml @ 200 mls/hr Q12H IV Last administered on 07/27/16 02:43; Start 07/21/16 at 15:00; Stop 07/27/16 at 09:00; Status DC Dextrose (D50w (Vial) Inj) 25 ml UNSCH PRN IV PUSH HYPOGLYCEMIA-SEE COMMENTS; Start 07/23/16 at 11:00 Glucagon (Glucagon Inj) 1 mg UNSCH PRN OTHER HYPOGLYCEMIA-SEE COMMENTS; Start 07/23/16 at 11:00 Insulin Aspart (NovoLOG SUPPLEMENTAL SCALE) 1 ACHS SLIDING SCALE SQ Last administered on 08/22/16 11:29; Start 07/23/16 at 11:00 Potassium Chloride (KCl) 40 meq ONCE ONCE PO Last administered on 07/24/16 13: 00; Start 07/24/16 at 13:00; Stop 07/24/16 at 13:01; Status DC Valproic Acid (Depakene) 500 mg Q8HR PO Last administered on 07/26/16 14:52; Start 07/25/16 at 15:00; Stop 07/26/16 at 17:39; Status DC Potassium Chloride (KCl) 30 meq ONCE ONCE PO Last administered on 07/26/16 19: 30; Start 07/26/16 at 16:30; Stop 07/26/16 at 16:36; Status DC Potassium Chloride (KCl) 30 meq ONCE ONCE PO Last administered on 07/26/16 22: 16; Start 07/26/16 at 20:00; Stop 07/26/16 at 20:01; Status DC Valproic Acid (Depakene) 250 mg Q12HR PO Last administered on 08/23/16 08:35; Start 07/27/16 at 09:00 Hydromorphone HCl (Dilaudid Pf Inj) 0.5 mg ONCE ONCE IV PUSH Last administered on 07/27/16 10:42; Start 07/27/16 at 10:45; Stop 07/27/16 at 10:46; Status DC Valsartan (Diovan) 80 mg HS PO Last administered on 08/19/16 21:58; Start 07/27 at 21:00; Stop 08/20/16 at 18:58; Status DC Enalaprilat (Vasotec Inj) 1.25 mg Q8H PRN IV PUSH SBP >180 OR DBP >100; Start 07/28/16 at 16:00 Fluconazole 100 mg 100 mg DAILY PO Last administered on 08/05/16 11:34; Start 07/30/16 at 09:45; Stop 08/05/16 at 16:53; Status DC Ceftriaxone Sodium/Sodium Chloride (Rocephin Inj/NS Inj) 100 ml @ 200 mls/hr Q24H IV Last administered on 08/01/16 09:45; Start 07/30/16 at 10:00; Stop 03/10 at 11:59; Status DC Potassium Chloride (KCl) 30 meq ONCE ONCE PO Last administered on 07/30/16 12: 12; Start 07/30/16 at 09:45; Stop 07/30/16 at 09:53; Status DC Potassium Chloride (KCl) 30 meq ONCE ONCE PO Last administered on 07/30/16 14: 00; Start 07/30/16 at 14:00; Stop 07/30/16 at 14:01; Status DC Insulin Detemir (Levemir Inj) 5 units HS SQ Last administered on 08/20/16 23: 02; Start 07/30/16 at 21:00 Melatonin (Melatonin) 5 mg HS PO Last administered on 08/22/16 21:25; Start at 21:00 Bupivacaine HCl (Marcaine Pf 0.5% Inj) 30 ml STK-MED ONCE .ROUTE ; Start at 10:12; Stop 07/31/16 at 10:13; Status DC Bupivacaine HCl/ Epinephrine Bitart (Sensorcaine-Epi 0.5% 50 ml Inj) 50 ml STK- MED ONCE .ROUTE ; Start 07/31/16 at 10:12; Stop 07/31/16 at 10:13; Status DC Bacitracin (Baciguent Oint) 15 applic STK-MED ONCE .ROUTE ; Start 07/31/16 at 10: 12; Stop 07/31/16 at 10:13; Status DC Dexamethasone Sodium Phosphate (Decadron Inj) 4 mg STK-MED ONCE .ROUTE Last administered on 07/31/16 10:24; Start 07/31/16 at 10:22; Stop 07/31/16 at 10:23; Status DC Famotidine (Pepcid Inj) 20 mg STK-MED ONCE IV PUSH Last administered on t 10:23; Start 07/31/16 at 10:23; Stop 07/31/16 at 10:27; Status DC Fentanyl Citrate 500 mcg 500 mcg STK-MED ONCE .ROUTE ; Start 07/31/16 at 12:13; Stop 07/31/16 at 12:14; Status DC Gentamicin Sulfate/Sodium Chloride (Gentamicin Inj/ NS Irr Btl) 1,005 ml @ 0 mls/hr UNSCH PRN IRRIGATION DRESSING CHANGES; Start 07/31/16 at 13:30 Miscellaneous Information ALL NURSING DEPARTME... UNSCH PRN XX SEE LABEL COMMENTS; Start 07/31/16 at 13:30; Stop 08/01/16 at 13:29; Status DC Propofol (Diprivan 200 Mg/20 ml Inj) 200 mg STK-MED ONCE IV ; Start 07/31/16 at 12:42; Stop 08/04/16 at 12:43; Status DC Ephedrine Sulfate (ePHEDrine/NS 25 MG/5 ML SYR) 25 mg STK-MED ONCE IV ; Start at 12:42; Stop 08/04/16 at 12:43; Status DC Phenylephrine HCl (Neosynephrine/ NS 1000 Mcg/10ml Syr) 1,000 mcg STK-MED ONCE IV ; Start 07/31/16 at 12:42; Stop 08/04/16 at 12:43; Status DC Ondansetron HCl (Zofran Inj) 4 mg STK-MED ONCE IV PUSH ; Start 07/31/16 at 12:42 ; Stop 08/04/16 at 12:43; Status DC Prednisone (Deltasone) 50 mg Q6H PO Last administered on 08/08/16 04:00; Start 08/07/16 at 16:00; Stop 08/08/16 at 04:01; Status DC Diphenhydramine HCl (Benadryl Inj) 50 mg ONCE ONCE IV ; Start 08/07/16 at 16:00 ; Stop 08/07/16 at 16:01; Status DC Midazolam HCl (Versed Inj) 2 mg STK-MED ONCE .ROUTE ; Start 08/08/16 at 08:24; Stop 08/08/16 at 08:25; Status DC Diphenhydramine HCl (Benadryl Inj) 50 mg STK-MED ONCE .ROUTE ; Start 08/08/16 at 08:24; Stop 08/08/16 at 08:25; Status DC Hydrocortisone Sodium Succinate (SoluCORTEF INJ) 100 mg STK-MED ONCE .ROUTE Last administered on 08/08/16t 08:52; Start 08/08/16 at 08:50; Stop 08/08/16 at 08:51; Status DC Ketamine HCl (Ketalar Inj) 500 mg STK-MED ONCE .ROUTE ; Start 08/08/16 at 08:59 ; Stop 08/08/16 at 09:00; Status DC Iohexol 100 ml 100 ml STK-MED ONCE OTHER Last administered on 08/08/16t 08:50; Start 08/08/16 at 08:50; Stop 08/08/16 at 09:45; Status DC Nitroglycerin/ Dextrose (Nitroglycerin-Dextrose Inj) 250 ml @ As Directed STK- MED ONCE .ROUTE ; Start 08/08/16 at 09:57; Stop 08/08/16 at 09:58; Status DC Iohexol (Omnipaque 300 Inj) 50 ml STK-MED ONCE OTHER Last administered on t 10:10; Start 08/08/16 at 10:10; Stop 08/08/16 at 10:31; Status DC Midazolam HCl (Versed Inj) 2 mg STK-MED ONCE .ROUTE ; Start 08/08/16 at 11:01; Stop 08/08/16 at 11:02; Status DC Fentanyl Citrate (fentaNYL INJ) 250 mcg STK-MED ONCE .ROUTE ; Start 08/08/16 at 11:02; Stop 08/08/16 at 11:03; Status DC Fentanyl Citrate (fentaNYL INJ) 100 mcg STK-MED ONCE .ROUTE ; Start 08/08/16 at 11:02; Stop 08/08/16 at 11:03; Status DC Morphine Sulfate (Morphine Inj) 4 mg STK-MED ONCE .ROUTE ; Start 08/08/16 at 11: 03; Stop 08/08/16 at 11:04; Status DC Morphine Sulfate (*morphine INJ PERIprocedure ONLY) 8 mg STK-MED ONCE .ROUTE Last administered on 08/08/16 11:17; Start 08/08/16 at 11:17; Stop 08/08/16 at 11:18; Status DC Miscellaneous Information ALL NURSING DEPARTME... UNSCH PRN XX SEE LABEL COMMENTS; Start 08/08/16 at 12:30; Stop 08/09/16 at 12:29; Status DC Lorazepam (Ativan) 0.25 mg Q12H PRN PO ANXIETY; Start 08/09/16 at 14:00; Stop 08/11/16 at 14:33; Status DC Propofol (Diprivan 200 Mg/20 ml Inj) 800 mg STK-MED ONCE IV ; Start 08/08/16 at 12:00; Stop 08/11/16 at 12:57; Status DC Heparin Sodium (Porcine) (Heparin Inj) 5,000 units STK-MED ONCE OTHER ; Start at 12:00; Stop 08/11/16 at 13:02; Status DC Potassium Chloride (KCl) 10 meq Q8HR PO Last administered on 08/16/16 06:08; Start 08/11/16 at 14:00; Stop 08/16/16 at 13:59; Status DC Clonazepam (KlonoPIN) 0.5 mg Q8HR PO Last administered on 08/12/16 05:29; Start 08/11/16 at 14:45; Stop 08/12/16 at 12:49; Status DC Diphenhydramine HCl (Benadryl) 25 mg ONCE ONCE PO Last administered on 17:50; Start 08/11/16 at 14:45; Stop 08/11/16 at 15:05; Status DC Clonazepam (KlonoPIN) 0.5 mg Q8H PRN PO ANXIETY Last administered on 08/23/16 08:32; Start 08/12/16 at 12:45 Gabapentin (Neurontin) 200 mg TID PO Last administered on 08/12/16 14:59; Start 08/12/16 at 13:00; Stop 08/14/16 at 16:07; Status DC Methadone HCl (Dolophine) 2.5 mg Q12HR PO Last administered on 08/23/16 08:42; Start 08/12/16 at 21:00 Doxycycline Hyclate (Vibratab) 100 mg Q12HR PO Last administered on 08/16/16 22:41; Start 08/12/16 at 22:45; Stop 08/17/16 at 08:21; Status DC Quetiapine Fumarate (SEROquel) 12.5 mg ONCE ONCE PO Last administered on 10:45; Start 08/13/16 at 10:45; Stop 08/13/16 at 10:50; Status DC Quetiapine Fumarate (SEROquel) 12.5 mg BID PO Last administered on 08/13/16 20 :32; Start 08/13/16 at 21:00; Stop 08/14/16 at 12:41; Status DC Gabapentin (Neurontin) 300 mg ONCE ONCE PO Last administered on 08/13/16 11: 00; Start 08/13/16 at 11:00; Stop 08/13/16 at 11:09; Status DC Acetaminophen (Tylenol) 500 mg Q6H PRN PO FEVER >100.4; Start 08/13/16 at 17:15 Quetiapine Fumarate (SEROquel) 6.25 mg HS PO Last administered on 08/22/16 21: 25; Start 08/14/16 at 21:00 Quetiapine Fumarate (SEROquel) 6.25 mg DAILY PRN PO agitated delirium; Start at 12:45 Gabapentin (Neurontin) 300 mg TID PO Last administered on 08/15/16 13:25; Start 08/15/16 at 09:00; Stop 08/15/16 at 14:20; Status DC Gabapentin (Neurontin) 400 mg ONCE ONCE PO ; Start 08/14/16 at 16:15; Stop at 16:15; Status DC Gabapentin (Neurontin) 200 mg ONCE ONCE PO Last administered on 08/14/16 17: 00; Start 08/14/16 at 16:30; Stop 08/14/16 at 16:33; Status DC Gabapentin (Neurontin) 400 mg TID PO Last administered on 08/18/16 12:34; Start 08/15/16 at 18:00; Stop 08/18/16 at 13:52; Status DC Mupirocin (Bactroban 2% Oint) 1 applic Q12HR TOPICAL Last administered on 21:00; Start 08/15/16 at 15:00 Hydrocortisone 1 applic 1 applic Q8H TOPICAL Last administered on 08/23/16 04: 00; Start 08/15/16 at 20:00 Levofloxacin/ Dextrose (Levaquin 750 Mg Premix Inj) 150 ml @ 100 mls/hr Q24H IV Last administered on 08/16/16 09:41; Start 08/16/16 at 08:00; Stop at 08:21; Status DC Lactobacillus Acidophilus 1 tab 1 tab TID PO Last administered on 08/23/16 08: 41; Start 08/16/16 at 09:00 Vancomycin HCl 1750 mg/Sodium Chloride 517.5 ml @ 258.75 mls/ hr ONCE ONCE IV Last administered on 08/17/16 10:21; Start 08/17/16 at 10:00; Stop 08/17/16 at 11:59; Status DC Pharmacy Profile Note 0 ml @ 0 mls/hr UNSCH OTHER ; Start 08/17/16 at 08:15; Stop 08/18/16 at 16:18; Status DC Piperacillin Sod/ Tazobactam Sod 50 ml @ 100 mls/hr Q6H IV Last administered on 08/18/16 09:15; Start 08/17/16 at 09:00; Stop 08/18/16 at 13:02; Status DC Sodium Chloride 1,000 ml @ 999 mls/hr BOLUS ONCE IV Last administered on 08/17 08:30; Start 08/17/16 at 08:30; Stop 08/17/16 at 09:30; Status DC Sodium Chloride 1,000 ml @ 200 mls/hr Q5H IV ; Start 08/17/16 at 09:00; Stop at 18:59; Status DC Vancomycin HCl/ Sodium Chloride (Vancomycin Inj/ NS 250 ml Inj) 250 ml @ 250 mls/hr Q12H IV Last administered on 08/18/16 12:33; Start 08/17/16 at 22:00; Stop 08/18/16 at 16:31; Status DC Miscellaneous Information SPECIFIC LAB TO BE [facility]... ONCE ONCE XX ; Start at 21:45; Stop 08/18/16 at 21:45; Status DC Olanzapine 10 mg 10 mg Q12H PRN IM acute agitation; Start 08/17/16 at 16:15; Stop 08/19/16 at 16:14; Status DC Levofloxacin/ Dextrose 150 ml @ 100 mls/hr Q24H IV ; Start 08/18/16 at 09:00; Stop 08/18/16 at 09:00; Status DC Levofloxacin/ Dextrose (Levaquin 750 Mg Premix Inj) 150 ml @ 100 mls/hr Q48H IV Last administered on 08/18/16 09:54; Start 08/18/16 at 09:00; Stop at 13:02; Status DC Miscellaneous Medication (ASP Crit: Doc ESBL, MDR A baumannii or P aer) 1 UNSCH X1 PRN XX PHARMACY DOCUMENTATION; Start 08/18/16 at 13:00; Stop 08/19/16 at 12: 59; Status DC Miscellaneous Medication 1 1 UNSCH X1 PRN XX PHARMACY DOCUMENTATION; Start at 13:00; Stop 08/19/16 at 12:59; Status DC Meropenem/Sodium Chloride (Merrem Inj/NS Inj) 100 ml @ 200 mls/hr Q8H IV Last administered on 08/21/16 06:14; Start 08/18/16 at 14:00; Stop 08/21/16 at 07:36 ; Status DC Gabapentin 600 mg 600 mg TID PO Last administered on 08/23/16 08:36; Start at 18:00 Sodium Chloride 1,000 ml @ 150 mls/hr Q6H40M IV Last administered on 17:44; Start 08/18/16 at 15:30; Stop 08/20/16 at 17:43; Status DC Sodium Chloride (NS 250 ml Inj) 250 ml @ 15 mls/hr ONCE ONCE IV Last administered on 08/19/16 06:34; Start 08/18/16 at 16:45; Stop 08/19/16 at 09:24 ; Status DC Acetaminophen (Tylenol) 650 mg Q4H PRN PO SEE LABEL COMMENTS; Start 08/18/16 at 16:45; Stop 08/18/16 at 20:46; Status DC Diphenhydramine HCl 25 mg 25 mg Q4H PRN PO SEE LABEL COMMENTS; Start 08/18/16 at 16:45; Stop 08/18/16 at 20:46; Status DC Linezolid (Zyvox 600 Mg Premix) 300 ml @ 300 mls/hr Q12H IV Last administered on 08/20/16 22:54; Start 08/19/16 at 08:00; Stop 08/21/16 at 07:36; Status DC Albumin Human (Albumin 25% Inj) 12.5 gm Q8H IV Last administered on 08/22/16 11:31; Start 08/20/16 at 20:00; Stop 08/22/16 at 13:51; Status DC Bumetanide (Bumex Inj) 1 mg Q8H IV PUSH Last administered on 08/22/16 12:44; Start 08/20/16 at 20:00; Stop 08/22/16 at 13:51; Status DC Metronidazole (Flagyl) 500 mg Q6HR PO ; Start 08/21/16 at 09:00; Stop 08/21/16 at 09:00; Status DC Vancomycin HCl (VANCOMYCIN for oral use only) 500 mg QID PO Last administered on 08/23/16 08:44; Start 08/21/16 at 09:00 Chlorothiazide Sodium (Diuril Inj) 250 mg ONCE ONCE IV Last administered on 21:03; Start 08/21/16 at 20:00; Stop 08/21/16 at 20:01; Status DC Potassium Phos/ Sodium Phos (K-Phos Neutral) 250 mg BID PO Last administered on 08/22/16 07:41; Start 08/21/16 at 21:00; Stop 08/22/16 at 20:59; Status DC Bumetanide (Bumetanide) 1 mg DAILY PO Last administered on 08/23/16 08:35; Start 08/23/16 at 09:00 Potassium Chloride (KCl) 20 meq ONCE ONCE PO Last administered on 08/22/16 14 :23; Start 08/22/16 at 14:00; Stop 08/22/16 at 14:01; Status DC Valsartan (Diovan) 40 mg DAILY PO Last administered on 08/23/16 08:35; Start at 09:00 A/P Assessment and Plan A/P - Chronic lower ext wound - Peripheral vascular disease - Severe neuropathic pain - Plastic surgery signed off. They recommended hyperbaric chamber and future skin graft. - Continue [place], Dilaudid PRN for pain. - Gabapentin 600mg TID. - Continue low dose Seroquel, Methadone per Palliative care. - hyperbaric tx is not a viable option and patient cannot be discharged home. -previously the option of topical oxygen therapy has been discussed. - C. Diff colitis - ID following. All abx discontinued and patient is currently on Vancomycin PO. - Left neck rash - could be contact dermatitis- improving - Continue topic abx, steroid. - UTI - Microbiology growing ESBL - Received Doxycycline -Anxiety, acute psychosis. - Received Zyprexa. If needed, we can use Zyprexa or Geodon. -Diabetes mellitus - Continue Levemir 5 units QHS and sliding scale insulin. Monitor for hypoglycemia. -Hypothyroidism - continue levothyroxine 150 g daily. -Hypertension - continue Valsartan 80mg QHS. -Cardiomyopathy - Continue Carvedilol 25mg BID, Valsartan, Isosorbide. -Hx of seizure activity - continue Valproic acid 250mg Q12hrs. -Anemia - s/p PRBC transfusion- H/H fairly stable. - Anasarca - Patient's last Albumin 1.3 which is likely the reason for anasarca. - receive albumin- evaluated by nephrology. - If oral intake does not improve, alternative nutrition should be addressed. -signal repairer following. Full code. Heparin SQ. palliative care following. Conrad Clancy MD Aug 23, 2016 09:46 d/w the daughter and gave her an update. dc planning in progress. Conrad Clancy MD Aug 23, 2016 09:46
[2016-08-23 11:38] LABS: BICARBONATE 31.1 MEQ/L (21.0-32.0)
[2016-08-23 11:43] LABS: POTASSIUM 4.3 MEQ/L (3.5-5.1)
[2016-08-23 12:00] VITALS: BP 123/75; PULSE 95; RESP 16; TEMP 98; O2SAT 98
[2016-08-23] MEDS: HYDROmorphone HCL PF 1 MG/ML VIAL IV PUSH PRN (12:44)
[2016-08-23 16:00] VITALS: BP 131/80; PULSE 115; RESP 24; TEMP 97.7; O2SAT 97
[2016-08-23 20:00] VITALS: BP 134/76; PULSE 97; RESP 28; O2SAT 97
[2016-08-23] MEDS: INSULIN DETEMIR 100 UNITS/ML VIAL SQ SCH (21:00)
[2016-08-23] MEDS: SODIUM CHLORIDE 0.9% FLUSH 5 ML FLUSH IV FLUSH SCH (21:00)
[2016-08-23] MEDS: MELATONIN 5 MG TAB PO SCH (21:30)
[2016-08-23] MEDS: QUEtiapine FUMARATE 25 MG TAB PO SCH (21:30)
[2016-08-24] VITALS: BP 125/57; PULSE 91; RESP 24; TEMP 98.9; O2SAT 97
[2016-08-24] MEDS: CHLORHEXIDINE GLUCONATE 2 % 1 PACK (2 CLOTHS) TOP SCH (03:28)
[2016-08-24 04:00] VITALS: BP 128/58; PULSE 92; RESP 22; TEMP 98.6; O2SAT 97
[2016-08-24] MEDS: HYDROCORTISONE 1% CREAM 30 GM TOPICAL SCH ×3 (04:00→22:12)
[2016-08-24] MEDS: ISOSORBIDE DINITRATE 5 MG TAB PO SCH ×3 (05:55→22:24)
[2016-08-24] MEDS: LEVOTHYROXINE SODIUM 150 MCG TAB PO SCH (05:55)
[2016-08-24] MEDS: HEPARIN SODIUM - SQ 10,000 UNITS/ML VIAL SQ SCH ×3 (05:56→22:24)
[2016-08-24] MEDS: INSULIN ASPART SUPPLEMENTAL SCALE SQ SCH ×4 (06:23→21:00)
[2016-08-24] MEDS: QUEtiapine FUMARATE 25 MG TAB PO PRN (07:57)
[2016-08-24] MEDS: LACTOBACILLUS ACIDOPHILUS TAB PO SCH ×6 (07:57→17:03)
[2016-08-24] MEDS: VALSARTAN 40 MG TAB PO SCH (07:57)
[2016-08-24] MEDS: GABAPENTIN 300 MG CAP PO SCH ×3 (07:57→16:52)
[2016-08-24] MEDS: METHADONE HCL 10 MG TAB PO SCH ×2 (07:58→22:22)
[2016-08-24] MEDS: VALPROIC ACID 250 MG CAP PO SCH ×2 (07:58→22:22)
[2016-08-24] MEDS: clonazePAM 0.5 MG TAB PO PRN ×2 (07:58→16:51)
[2016-08-24] MEDS: BUMETANIDE 1 MG TAB PO SCH (07:58)
[2016-08-24] MEDS: LIOTHYRONINE SODIUM 5 MCG TAB PO SCH (07:59)
[2016-08-24 08:00] VITALS: BP 128/101; PULSE 101; RESP 20; TEMP 98.3
[2016-08-24] MEDS: VANCOMYCIN 500 MG VIAL (FOR ORAL USE ONLY) PO SCH ×4 (08:15→22:29)
[2016-08-24] MEDS: ASPIRIN EC 325 MG TABEC PO SCH (08:15)
[2016-08-24] MEDS: MUPIROCIN 2% OINT 22 GM TUBE TOPICAL SCH ×2 (08:15→21:00)
--- NOTE | 2016-08-24 09:50 | HHI.PR ---
Subjective Remarks still with some confusion. afebrile. has on and off pain to the left leg. son at the bedside. Objective Vitals Vital Signs Date Time Temp Pulse Resp B/P Pulse Ox O2 Delivery O2 Flow Rate FiO2 08/24/16 04:00 98.6 92 22 128/58 97 08/24/16 00:00 98.9 91 24 125/57 97 08/23/16 21:00 Room Air 08/23/16 20:00 97 28 134/76 97 08/23/16 16:00 97.7 115 24 131/80 97 08/23/16 12:00 98.0 95 16 123/75 98 I/O 08/23/16 08/23/16 08/23/16 08/24/16 08/24/16 08/24/16 07:00 15:00 23:00 07:00 15:00 23:00 Intake Total 120 ml 0 ml 120 ml Output Total 600 ml 1800 ml 525 ml 150 ml Balance -480 ml -1800 ml -405 ml -150 ml Intake Oral 120 ml 0 ml 120 ml Output Urine Total 600 ml 1800 ml 525 ml 150 ml # Bowel Movements 1 2 Result Diagram: 08/22/16 0429 08/23/16 1025 Imaging Last Impressions Chest X-Ray 08/19/16 0000 Signed Impressions: Service Date/Time: Friday, August 19, 2016 18:46 - CONCLUSION: 1. Bibasilar streakiness consistent with atelectasis and/or infiltrates. 2. Cardiomegaly. 3. Poor inspiratory result. Shamar Banuelos MD Upper Extremity Ultrasound 07/28/16 0000 Signed Impressions: Service Date/Time: Thursday, July 28, 2016 14:34 - CONCLUSION: No DVT is identified within the right upper extremity. Alfredo Eng MD Brain MRI 07/20/16 0000 Signed Impressions: Service Date/Time: Wednesday, July 20, 2016 09:15 - CONCLUSION: No acute intracranial abnormality. Moderately severe chronic white matter changes, nonspecific but most likely small vessel ischemia. Alfredo Sneed MD Head CT 07/19/16 0000 Signed Impressions: Service Date/Time: Tuesday, July 19, 2016 09:58 - CONCLUSION: No acute intracranial findings. João Otoole MD Foot X-Ray 07/16/16 0000 Signed Impressions: Service Date/Time: Saturday, July 16, 2016 17:34 - CONCLUSION: 1. Nonspecific soft tissue swelling. No acute bone destruction demonstrated. 2. Mild talonavicular and navicular/cuneiform degenerative changes. 3. Second through fifth hammertoe. 4. Moderate-sized heel spur. Alfredo Sneed MD Objective Remarks GENERAL: in no apparent distress. CARDIOVASCULAR: Regular rate and irregular rhythm without murmurs, gallops, or rubs. RESPIRATORY: Clear to auscultation. Breath sounds equal bilaterally. No wheezes , rales, or rhonchi. GASTROINTESTINAL: Abdomen soft, non-tender, nondistended. Normal, active bowel sounds MUSCULOSKELETAL: both legs covered with clean dressing. NEURO: awake and alert Procedures 08/08/2016 PROCEDURE 1. Selective right lower extremity arteriogram. 2. Balloon angioplasty with a 4 mm x 2200 mm and then a 5 x 200 mm [employer] angioplasty balloon of the right superficial femoral and proximal popliteal artery. 07/31/2016 Excision and debridement of both legs, extensive necrotic wounds approximately 30 x 25 cm area on each side, total 1000 to 1100 cm square, down to the subcutaneous tissue and tendon on the left side. Medications and IVs Current Medications Sodium Chloride (NS 1000 ml Inj) 1,000 ml @ 84 mls/hr [id number] IV Last administered on 08/05/16 16:12; Start 07/15/16 at 19:42; Stop 08/18/16 at 15:34 ; Status DC IV Flush (NS Flush) 2 ml UNSCH PRN IV FLUSH FLUSH AFTER USING IV ACCESS Last administered on 08/12/16 05:30; Start 07/15/16 at 19:45 IV Flush (NS Flush) 2 ml BID IV FLUSH Last administered on 08/23/16 21:00; Start 07/15/16 at 21:00 Fentanyl Citrate (fentaNYL INJ) 50 mcg Q3H PRN IV PUSH Pain scale 7-10 &/or sedation Last administered on 07/15/16 21:44; Start 07/15/16 at 19:45; Stop at 11:51; Status DC Famotidine (Pepcid Inj) 20 mg Q12HR IV PUSH Last administered on 07/15/16 20: 19; Start 07/15/16 at 21:00; Stop 07/15/16 at 21:24; Status DC Ondansetron HCl (Zofran Inj) 4 mg Q6H PRN IV NAUSEA OR VOMITING Last administered on 07/31/16 13:23; Start 07/15/16 at 19:45; Stop 08/12/16 at 20:17 ; Status DC Metoclopramide HCl (Reglan Inj) 5 mg Q6H PRN IV NAUSEA OR VOMITING; Start 07/15 at 19:45 Docusate Sodium (Colace) 100 mg BID PO Last administered on 08/07/16 21:00; Start 07/15/16 at 21:00; Stop 08/08/16 at 22:08; Status DC Albuterol/ Ipratropium (Duoneb Neb) 1 ampule Q2HR NEB PRN INH WHEEZING; Start 07/15/16 at 19:45 Heparin Sodium (Porcine) (Heparin Inj) 5,000 units Q8HR SQ Last administered on 08/24/16 05:56; Start 07/15/16 at 22:00 Miscellaneous Information 1 [id number] XX Last administered on 07/15/16 19:45; Start 07/15/16 at 19:45 Chlorhexidine Gluconate (Chlorhexidine 2% Cloth) 3 pack Taper DAILY@04 TOP Last administered on 07/17/16 03:11; Start 07/16/16 at 04:00; Stop 07/12/17 at 03:59 Chlorhexidine Gluconate (Chlorhexidine 2% Cloth) 3 pack UNSCH PRN TOP HYGIENIC CARE; Start 07/15/16 at 19:45 Acetaminophen (Ofirmev Inj) 1,000 mg Q6H PRN IV PAIN SCALE 1 TO 6; Start at 20:00; Stop 07/18/16 at 11:51; Status DC Ketorolac Tromethamine (Toradol Inj) 30 mg Q6H PRN IM PAIN SCALE 1 TO 7; Start 07/15/16 at 20:00; Stop 07/15/16 at 20:10; Status DC Ketorolac Tromethamine (Toradol Inj) 30 mg Q6H PRN IV PUSH PAIN 1-6 Last administered on 07/15/16 20:34; Start 07/15/16 at 20:15; Stop 07/18/16 at 11:51 ; Status DC Carvedilol (Coreg) 25 mg BID PO Last administered on 08/17/16 10:24; Start at 21:00; Stop 08/17/16 at 16:06; Status DC Fluconazole (Diflucan) 75 mg DAILY@17 PO Last administered on 07/16/16 17:03; Start 07/16/16 at 17:00; Stop 07/17/16 at 08:09; Status DC Isosorbide Dinitrate (Isordil) 5 mg Q8HR PO Last administered on 08/24/16 05:55 ; Start 07/15/16 at 22:00 Lactobacillus Acidophilus (Lactinex) 1 tab TID PO Last administered on 17:07; Start 07/16/16 at 09:00 Levofloxacin (Levaquin) 250 mg Q48H PO Last administered on 07/21/16 21:05; Start 07/15/16 at 22:00; Stop 07/23/16 at 16:37; Status DC Levothyroxine Sodium (Synthroid) 150 mcg DAILY@06 PO Last administered on 05:55; Start 07/16/16 at 06:00 Liothyronine Sodium (Cytomel) 5 mcg DAILY PO Last administered on 08/24/16 07: 59; Start 07/16/16 at 09:00 Non-Formulary Medication 325 mg DAILY PO ; Start 07/16/16 at 09:00; Status UNV Miscellaneous (Pill Splitter) 1 ea UNSCH PRN OTHER SEE LABEL COMMENTS; Start at 21:30 Famotidine (Pepcid Inj) 10 mg Q12HR IV PUSH Last administered on 07/17/16 07: 29; Start 07/16/16 at 09:00; Stop 07/18/16 at 10:59; Status DC Aspirin (Ecotrin Ec) 325 mg DAILY PO Last administered on 08/24/16 08:15; Start 07/16/16 at 09:00 Etomidate (Amidate Inj) 20 mg STK-MED ONCE .ROUTE ; Start 07/16/16 at 17:07; Stop 07/16/16 at 17:08; Status DC Famotidine (Pepcid Inj) 20 mg Q12HR IV PUSH Last administered on 08/12/16 09: 05; Start 07/18/16 at 21:00; Stop 08/12/16 at 20:17; Status DC Hydromorphone HCl (Dilaudid Pf Inj) 0.5 mg ONCE ONCE IV PUSH Last administered on 08/04/16 18:00; Start 07/18/16 at 11:45; Stop 07/18/16 at 11:46 ; Status DC Hydromorphone HCl (Dilaudid Pf Inj) 0.5 mg Q4H PRN IV PUSH breakthrough pain / dresing lori Last administered on 08/21/16 10:11; Start 07/18/16 at 11:45 Acetaminophen/ Hydrocodone Bitart (Jarales 5-325 Mg) 1 tab Q6H PRN PO pain 2-10 Last administered on 08/12/16 09:04; Start 07/18/16 at 11:45; Stop 08/12/16 at 20:17; Status DC Diphenhydramine HCl 50 mg 50 mg STK-MED ONCE .ROUTE ; Start 07/19/16 at 11:20; Stop 07/19/16 at 11:21; Status DC Levetriacetam/ Sodium Chloride (Keppra Inj/NS Inj) 105 ml @ 420 mls/hr Q12HR IV Last administered on 07/20/16 08:19; Start 07/19/16 at 13:00; Stop at 16:25; Status DC Haloperidol Lactate (Haldol Inj) 2 mg Q6H PRN IM aggittation Last administered on 07/30/16 01:29; Start 07/19/16 at 12:30; Status Hold Lorazepam 1 mg 1 mg Q6H PRN IV PUSH seizures/agiatation Last administered on 06:09; Start 07/19/16 at 12:30; Status Hold Valproate Sodium 500 mg/Sodium Chloride 105 ml @ 105 mls/hr Q8H IV Last administered on 07/25/16 09:26; Start 07/20/16 at 18:00; Stop 07/25/16 at 09:54; Status DC Cefepime HCl/ Sodium Chloride (Maxipime Inj/NS Inj) 100 ml @ 200 mls/hr Q12H IV Last administered on 07/27/16 02:43; Start 07/21/16 at 15:00; Stop 07/27/16 at 09:00; Status DC Dextrose (D50w (Vial) Inj) 25 ml UNSCH PRN IV PUSH HYPOGLYCEMIA-SEE COMMENTS; Start 07/23/16 at 11:00 Glucagon (Glucagon Inj) 1 mg UNSCH PRN OTHER HYPOGLYCEMIA-SEE COMMENTS; Start 07/23/16 at 11:00 Insulin Aspart (NovoLOG SUPPLEMENTAL SCALE) 1 ACHS SLIDING SCALE SQ Last administered on 08/22/16 11:29; Start 07/23/16 at 11:00 Potassium Chloride (KCl) 40 meq ONCE ONCE PO Last administered on 07/24/16 13: 00; Start 07/24/16 at 13:00; Stop 07/24/16 at 13:01; Status DC Valproic Acid (Depakene) 500 mg Q8HR PO Last administered on 07/26/16 14:52; Start 07/25/16 at 15:00; Stop 07/26/16 at 17:39; Status DC Potassium Chloride (KCl) 30 meq ONCE ONCE PO Last administered on 07/26/16 19: 30; Start 07/26/16 at 16:30; Stop 07/26/16 at 16:36; Status DC Potassium Chloride (KCl) 30 meq ONCE ONCE PO Last administered on 07/26/16 22: 16; Start 07/26/16 at 20:00; Stop 07/26/16 at 20:01; Status DC Valproic Acid (Depakene) 250 mg Q12HR PO Last administered on 08/24/16 07:58; Start 07/27/16 at 09:00 Hydromorphone HCl (Dilaudid Pf Inj) 0.5 mg ONCE ONCE IV PUSH Last administered on 07/27/16 10:42; Start 07/27/16 at 10:45; Stop 07/27/16 at 10:46; Status DC Valsartan (Diovan) 80 mg HS PO Last administered on 08/19/16 21:58; Start 07/27 at 21:00; Stop 08/20/16 at 18:58; Status DC Enalaprilat (Vasotec Inj) 1.25 mg Q8H PRN IV PUSH SBP >180 OR DBP >100; Start 07/28/16 at 16:00 Fluconazole 100 mg 100 mg DAILY PO Last administered on 08/05/16 11:34; Start 07/30/16 at 09:45; Stop 08/05/16 at 16:53; Status DC Ceftriaxone Sodium/Sodium Chloride (Rocephin Inj/NS Inj) 100 ml @ 200 mls/hr Q24H IV Last administered on 08/01/16 09:45; Start 07/30/16 at 10:00; Stop 03/10 at 11:59; Status DC Potassium Chloride (KCl) 30 meq ONCE ONCE PO Last administered on 07/30/16 12: 12; Start 07/30/16 at 09:45; Stop 07/30/16 at 09:53; Status DC Potassium Chloride (KCl) 30 meq ONCE ONCE PO Last administered on 07/30/16 14: 00; Start 07/30/16 at 14:00; Stop 07/30/16 at 14:01; Status DC Insulin Detemir (Levemir Inj) 5 units HS SQ Last administered on 08/20/16 23: 02; Start 07/30/16 at 21:00 Melatonin (Melatonin) 5 mg HS PO Last administered on 08/23/16 21:30; Start 07/30/16 at 21:00 Bupivacaine HCl (Marcaine Pf 0.5% Inj) 30 ml STK-MED ONCE .ROUTE ; Start at 10:12; Stop 07/31/16 at 10:13; Status DC Bupivacaine HCl/ Epinephrine Bitart (Sensorcaine-Epi 0.5% 50 ml Inj) 50 ml STK- MED ONCE .ROUTE ; Start 07/31/16 at 10:12; Stop 07/31/16 at 10:13; Status DC Bacitracin (Baciguent Oint) 15 applic STK-MED ONCE .ROUTE ; Start 07/31/16 at 10: 12; Stop 07/31/16 at 10:13; Status DC Dexamethasone Sodium Phosphate (Decadron Inj) 4 mg STK-MED ONCE .ROUTE Last administered on 07/31/16 10:24; Start 07/31/16 at 10:22; Stop 07/31/16 at 10:23; Status DC Famotidine (Pepcid Inj) 20 mg STK-MED ONCE IV PUSH Last administered on 3/9/ 17at 10:23; Start 07/31/16 at 10:23; Stop 07/31/16 at 10:27; Status DC Fentanyl Citrate 500 mcg 500 mcg STK-MED ONCE .ROUTE ; Start 07/31/16 at 12:13; Stop 07/31/16 at 12:14; Status DC Gentamicin Sulfate/Sodium Chloride (Gentamicin Inj/ NS Irr Btl) 1,005 ml @ 0 mls/hr UNSCH PRN IRRIGATION DRESSING CHANGES; Start 07/31/16 at 13:30 Miscellaneous Information ALL NURSING DEPARTME... UNSCH PRN XX SEE LABEL COMMENTS; Start 07/31/16 at 13:30; Stop 08/01/16 at 13:29; Status DC Propofol (Diprivan 200 Mg/20 ml Inj) 200 mg STK-MED ONCE IV ; Start 07/31/16 at 12:42; Stop 08/04/16 at 12:43; Status DC Ephedrine Sulfate (ePHEDrine/NS 25 MG/5 ML SYR) 25 mg STK-MED ONCE IV ; Start at 12:42; Stop 08/04/16 at 12:43; Status DC Phenylephrine HCl (Neosynephrine/ NS 1000 Mcg/10ml Syr) 1,000 mcg STK-MED ONCE IV ; Start 07/31/16 at 12:42; Stop 08/04/16 at 12:43; Status DC Ondansetron HCl (Zofran Inj) 4 mg STK-MED ONCE IV PUSH ; Start 07/31/16 at 12:42 ; Stop 08/04/16 at 12:43; Status DC Prednisone (Deltasone) 50 mg Q6H PO Last administered on 08/08/16 04:00; Start 08/07/16 at 16:00; Stop 08/08/16 at 04:01; Status DC Diphenhydramine HCl (Benadryl Inj) 50 mg ONCE ONCE IV ; Start 08/07/16 at 16:00 ; Stop 08/07/16 at 16:01; Status DC Midazolam HCl (Versed Inj) 2 mg STK-MED ONCE .ROUTE ; Start 08/08/16 at 08:24; Stop 08/08/16 at 08:25; Status DC Diphenhydramine HCl (Benadryl Inj) 50 mg STK-MED ONCE .ROUTE ; Start 08/08/16 at 08:24; Stop 08/08/16 at 08:25; Status DC Hydrocortisone Sodium Succinate (SoluCORTEF INJ) 100 mg STK-MED ONCE .ROUTE Last administered on 08/08/16 08:52; Start 08/08/16 at 08:50; Stop 08/08/16 at 08:51; Status DC Ketamine HCl (Ketalar Inj) 500 mg STK-MED ONCE .ROUTE ; Start 08/08/16 at 08:59 ; Stop 08/08/16 at 09:00; Status DC Iohexol 100 ml 100 ml STK-MED ONCE OTHER Last administered on 08/08/16 08:50; Start 08/08/16 at 08:50; Stop 08/08/16 at 09:45; Status DC Nitroglycerin/ Dextrose (Nitroglycerin-Dextrose Inj) 250 ml @ As Directed STK- MED ONCE .ROUTE ; Start 08/08/16 at 09:57; Stop 08/08/16 at 09:58; Status DC Iohexol (Omnipaque 300 Inj) 50 ml STK-MED ONCE OTHER Last administered on t 10:10; Start 08/08/16 at 10:10; Stop 08/08/16 at 10:31; Status DC Midazolam HCl (Versed Inj) 2 mg STK-MED ONCE .ROUTE ; Start 08/08/16 at 11:01; Stop 08/08/16 at 11:02; Status DC Fentanyl Citrate (fentaNYL INJ) 250 mcg STK-MED ONCE .ROUTE ; Start 08/08/16 at 11:02; Stop 08/08/16 at 11:03; Status DC Fentanyl Citrate (fentaNYL INJ) 100 mcg STK-MED ONCE .ROUTE ; Start 08/08/16 at 11:02; Stop 08/08/16 at 11:03; Status DC Morphine Sulfate (Morphine Inj) 4 mg STK-MED ONCE .ROUTE ; Start 08/08/16 at 11: 03; Stop 08/08/16 at 11:04; Status DC Morphine Sulfate (*morphine INJ PERIprocedure ONLY) 8 mg STK-MED ONCE .ROUTE Last administered on 08/08/16 11:17; Start 08/08/16 at 11:17; Stop 08/08/16 at 11:18; Status DC Miscellaneous Information ALL NURSING DEPARTME... UNSCH PRN XX SEE LABEL COMMENTS; Start 08/08/16 at 12:30; Stop 08/09/16 at 12:29; Status DC Lorazepam (Ativan) 0.25 mg Q12H PRN PO ANXIETY; Start 08/09/16 at 14:00; Stop 08/11/16 at 14:33; Status DC Propofol (Diprivan 200 Mg/20 ml Inj) 800 mg STK-MED ONCE IV ; Start 08/08/16 at 12:00; Stop 08/11/16 at 12:57; Status DC Heparin Sodium (Porcine) (Heparin Inj) 5,000 units STK-MED ONCE OTHER ; Start at 12:00; Stop 08/11/16 at 13:02; Status DC Potassium Chloride (KCl) 10 meq Q8HR PO Last administered on 08/16/16 06:08; Start 08/11/16 at 14:00; Stop 08/16/16 at 13:59; Status DC Clonazepam (KlonoPIN) 0.5 mg Q8HR PO Last administered on 08/12/16 05:29; Start 08/11/16 at 14:45; Stop 08/12/16 at 12:49; Status DC Diphenhydramine HCl (Benadryl) 25 mg ONCE ONCE PO Last administered on 17:50; Start 08/11/16 at 14:45; Stop 08/11/16 at 15:05; Status DC Clonazepam (KlonoPIN) 0.5 mg Q8H PRN PO ANXIETY Last administered on 08/24/16 07:58; Start 08/12/16 at 12:45 Gabapentin (Neurontin) 200 mg TID PO Last administered on 08/12/16 14:59; Start 08/12/16 at 13:00; Stop 08/14/16 at 16:07; Status DC Methadone HCl (Dolophine) 2.5 mg Q12HR PO Last administered on 08/24/16 07:58; Start 08/12/16 at 21:00 Doxycycline Hyclate (Vibratab) 100 mg Q12HR PO Last administered on 08/16/16 22:41; Start 08/12/16 at 22:45; Stop 08/17/16 at 08:21; Status DC Quetiapine Fumarate (SEROquel) 12.5 mg ONCE ONCE PO Last administered on 10:45; Start 08/13/16 at 10:45; Stop 08/13/16 at 10:50; Status DC Quetiapine Fumarate (SEROquel) 12.5 mg BID PO Last administered on 08/13/16 20 :32; Start 08/13/16 at 21:00; Stop 08/14/16 at 12:41; Status DC Gabapentin (Neurontin) 300 mg ONCE ONCE PO Last administered on 08/13/16 11: 00; Start 08/13/16 at 11:00; Stop 08/13/16 at 11:09; Status DC Acetaminophen (Tylenol) 500 mg Q6H PRN PO FEVER >100.4; Start 08/13/16 at 17:15 Quetiapine Fumarate (SEROquel) 6.25 mg HS PO Last administered on 08/23/16 21: 30; Start 08/14/16 at 21:00 Quetiapine Fumarate (SEROquel) 6.25 mg DAILY PRN PO agitated delirium Last administered on 08/24/16 07:57; Start 08/14/16 at 12:45 Gabapentin (Neurontin) 300 mg TID PO Last administered on 08/15/16 13:25; Start 08/15/16 at 09:00; Stop 08/15/16 at 14:20; Status DC Gabapentin (Neurontin) 400 mg ONCE ONCE PO ; Start 08/14/16 at 16:15; Stop at 16:15; Status DC Gabapentin (Neurontin) 200 mg ONCE ONCE PO Last administered on 08/14/16 17: 00; Start 08/14/16 at 16:30; Stop 08/14/16 at 16:33; Status DC Gabapentin (Neurontin) 400 mg TID PO Last administered on 08/18/16 12:34; Start 08/15/16 at 18:00; Stop 08/18/16 at 13:52; Status DC Mupirocin (Bactroban 2% Oint) 1 applic Q12HR TOPICAL Last administered on 08:15; Start 08/15/16 at 15:00 Hydrocortisone 1 applic 1 applic Q8H TOPICAL Last administered on 08/24/16 04: 00; Start 08/15/16 at 20:00 Levofloxacin/ Dextrose (Levaquin 750 Mg Premix Inj) 150 ml @ 100 mls/hr Q24H IV Last administered on 08/16/16 09:41; Start 08/16/16 at 08:00; Stop at 08:21; Status DC Lactobacillus Acidophilus 1 tab 1 tab TID PO Last administered on 08/24/16 07: 57; Start 08/16/16 at 09:00 Vancomycin HCl 1750 mg/Sodium Chloride 517.5 ml @ 258.75 mls/ hr ONCE ONCE IV Last administered on 08/17/16 10:21; Start 08/17/16 at 10:00; Stop 08/17/16 at 11:59; Status DC Pharmacy Profile Note 0 ml @ 0 mls/hr UNSCH OTHER ; Start 08/17/16 at 08:15; Stop 08/18/16 at 16:18; Status DC Piperacillin Sod/ Tazobactam Sod 50 ml @ 100 mls/hr Q6H IV Last administered on 08/18/16 09:15; Start 08/17/16 at 09:00; Stop 08/18/16 at 13:02; Status DC Sodium Chloride 1,000 ml @ 999 mls/hr BOLUS ONCE IV Last administered on 08/17 08:30; Start 08/17/16 at 08:30; Stop 08/17/16 at 09:30; Status DC Sodium Chloride 1,000 ml @ 200 mls/hr Q5H IV ; Start 08/17/16 at 09:00; Stop at 18:59; Status DC Vancomycin HCl/ Sodium Chloride (Vancomycin Inj/ NS 250 ml Inj) 250 ml @ 250 mls/hr Q12H IV Last administered on 08/18/16 12:33; Start 08/17/16 at 22:00; Stop 08/18/16 at 16:31; Status DC Miscellaneous Information SPECIFIC LAB TO BE [facility]... ONCE ONCE XX ; Start at 21:45; Stop 08/18/16 at 21:45; Status DC Olanzapine 10 mg 10 mg Q12H PRN IM acute agitation; Start 08/17/16 at 16:15; Stop 08/19/16 at 16:14; Status DC Levofloxacin/ Dextrose 150 ml @ 100 mls/hr Q24H IV ; Start 08/18/16 at 09:00; Stop 08/18/16 at 09:00; Status DC Levofloxacin/ Dextrose (Levaquin 750 Mg Premix Inj) 150 ml @ 100 mls/hr Q48H IV Last administered on 08/18/16 09:54; Start 08/18/16 at 09:00; Stop at 13:02; Status DC Miscellaneous Medication (ASP Crit: Doc ESBL, MDR A baumannii or P aer) 1 UNSCH X1 PRN XX PHARMACY DOCUMENTATION; Start 08/18/16 at 13:00; Stop 08/19/16 at 12: 59; Status DC Miscellaneous Medication 1 1 UNSCH X1 PRN XX PHARMACY DOCUMENTATION; Start at 13:00; Stop 08/19/16 at 12:59; Status DC Meropenem/Sodium Chloride (Merrem Inj/NS Inj) 100 ml @ 200 mls/hr Q8H IV Last administered on 08/21/16 06:14; Start 08/18/16 at 14:00; Stop 08/21/16 at 07:36 ; Status DC Gabapentin 600 mg 600 mg TID PO Last administered on 08/24/16 07:57; Start at 18:00 Sodium Chloride 1,000 ml @ 150 mls/hr Q6H40M IV Last administered on 17:44; Start 08/18/16 at 15:30; Stop 08/20/16 at 17:43; Status DC Sodium Chloride (NS 250 ml Inj) 250 ml @ 15 mls/hr ONCE ONCE IV Last administered on 08/19/16 06:34; Start 08/18/16 at 16:45; Stop 08/19/16 at 09:24 ; Status DC Acetaminophen (Tylenol) 650 mg Q4H PRN PO SEE LABEL COMMENTS; Start 08/18/16 at 16:45; Stop 08/18/16 at 20:46; Status DC Diphenhydramine HCl 25 mg 25 mg Q4H PRN PO SEE LABEL COMMENTS; Start 08/18/16 at 16:45; Stop 08/18/16 at 20:46; Status DC Linezolid (Zyvox 600 Mg Premix) 300 ml @ 300 mls/hr Q12H IV Last administered on 08/20/16 22:54; Start 08/19/16 at 08:00; Stop 08/21/16 at 07:36; Status DC Albumin Human (Albumin 25% Inj) 12.5 gm Q8H IV Last administered on 08/22/16 11:31; Start 08/20/16 at 20:00; Stop 08/22/16 at 13:51; Status DC Bumetanide (Bumex Inj) 1 mg Q8H IV PUSH Last administered on 08/22/16 12:44; Start 08/20/16 at 20:00; Stop 08/22/16 at 13:51; Status DC Metronidazole (Flagyl) 500 mg Q6HR PO ; Start 08/21/16 at 09:00; Stop 08/21/16 at 09:00; Status DC Vancomycin HCl (VANCOMYCIN for oral use only) 500 mg QID PO Last administered on 08/24/16 08:15; Start 08/21/16 at 09:00 Chlorothiazide Sodium (Diuril Inj) 250 mg ONCE ONCE IV Last administered on 21:03; Start 08/21/16 at 20:00; Stop 08/21/16 at 20:01; Status DC Potassium Phos/ Sodium Phos (K-Phos Neutral) 250 mg BID PO Last administered on 08/22/16 07:41; Start 08/21/16 at 21:00; Stop 08/22/16 at 20:59; Status DC Bumetanide (Bumetanide) 1 mg DAILY PO Last administered on 08/24/16 07:58; Start 08/23/16 at 09:00 Potassium Chloride (KCl) 20 meq ONCE ONCE PO Last administered on 08/22/16 14 :23; Start 08/22/16 at 14:00; Stop 08/22/16 at 14:01; Status DC Valsartan (Diovan) 40 mg DAILY PO Last administered on 08/24/16 07:57; Start at 09:00 A/P Assessment and Plan A/P - Chronic lower ext wound - Peripheral vascular disease - Severe neuropathic pain - Plastic surgery signed off. They recommended hyperbaric chamber and future skin graft. - Dilaudid PRN for pain. - Gabapentin 600mg TID. - Continue low dose Seroquel, Methadone per Palliative care. - hyperbaric tx is not a viable option and patient cannot be discharged home. -previously the option of topical oxygen therapy has been discussed. - C. Diff colitis - ID following. All abx discontinued and patient is currently on Vancomycin PO. - Left neck rash - could be contact dermatitis- improving - Continue topic abx, steroid. - UTI - Microbiology growing ESBL - Received Doxycycline -Anxiety, acute psychosis. - Received Zyprexa. If needed, we can use Zyprexa or Geodon. -on Seroquel at night. -Diabetes mellitus - Continue Levemir 5 units QHS and sliding scale insulin. Monitor for hypoglycemia. -Hypothyroidism - continue levothyroxine 150 g daily. -Hypertension - continue Valsartan 80mg QHS. -Cardiomyopathy - Continue Carvedilol 25mg BID, Valsartan, Isosorbide. -Hx of seizure activity - continue Valproic acid 250mg Q12hrs. -Anemia - s/p PRBC transfusion- H/H fairly stable. - Anasarca - Patient's last Albumin 1.3 which is likely the reason for anasarca. - receive albumin- evaluated by nephrology. - If oral intake does not improve, alternative nutrition should be addressed and this was d/w the son. -community health nurse staff following. Full code. Heparin SQ. palliative care following. Conrad Clancy MD Aug 24, 2016 09:50
[2016-08-24 12:00] VITALS: BP 117/55; PULSE 86; RESP 18; TEMP 99.8; O2SAT 91
[2016-08-24 16:00] VITALS: BP 120/54; PULSE 96; RESP 20; TEMP 98.7; O2SAT 94
[2016-08-24 20:00] VITALS: BP 125/57; PULSE 87; RESP 18; TEMP 97.6; O2SAT 94
[2016-08-24] MEDS: QUEtiapine FUMARATE 25 MG TAB PO SCH (21:00)
[2016-08-24] MEDS: MELATONIN 5 MG TAB PO SCH (21:00)
[2016-08-24] MEDS: INSULIN DETEMIR 100 UNITS/ML VIAL SQ SCH (21:00)
[2016-08-24] MEDS: SODIUM CHLORIDE 0.9% FLUSH 5 ML FLUSH IV FLUSH SCH (22:16)
[2016-08-25] VITALS: BP 105/63; PULSE 93; RESP 16; TEMP 97.4; O2SAT 95
[2016-08-25] MEDS: clonazePAM 0.5 MG TAB PO PRN (00:25)
[2016-08-25] MEDS: HYDROmorphone HCL PF 1 MG/ML VIAL IV PUSH PRN ×2 (00:27→11:56)
[2016-08-25 04:00] VITALS: BP 116/59; PULSE 96; RESP 18; TEMP 97.5; O2SAT 96
[2016-08-25] MEDS: CHLORHEXIDINE GLUCONATE 2 % 1 PACK (2 CLOTHS) TOP SCH (04:00)
[2016-08-25 08:00] VITALS: BP 114/53; PULSE 88; RESP 20; TEMP 97.6; O2SAT 92
[2016-08-25] MEDS: VALPROIC ACID 250 MG CAP PO SCH ×2 (08:30→21:09)
[2016-08-25] MEDS: ASPIRIN EC 325 MG TABEC PO SCH (08:30)
[2016-08-25] MEDS: VANCOMYCIN 500 MG VIAL (FOR ORAL USE ONLY) PO SCH ×4 (08:30→21:10)
[2016-08-25] MEDS: METHADONE HCL 10 MG TAB PO SCH ×2 (08:31→21:08)
[2016-08-25] MEDS: BUMETANIDE 1 MG TAB PO SCH (08:31)
[2016-08-25] MEDS: GABAPENTIN 300 MG CAP PO SCH ×3 (08:32→17:21)
[2016-08-25] MEDS: LIOTHYRONINE SODIUM 5 MCG TAB PO SCH (08:32)
[2016-08-25] MEDS: SODIUM CHLORIDE 0.9% FLUSH 5 ML FLUSH IV FLUSH SCH ×2 (08:32→21:09)
[2016-08-25] MEDS: LACTOBACILLUS ACIDOPHILUS TAB PO SCH ×4 (08:32→17:21)
[2016-08-25] MEDS: VALSARTAN 40 MG TAB PO SCH (08:44)
[2016-08-25] MEDS: MUPIROCIN 2% OINT 22 GM TUBE TOPICAL SCH ×2 (09:00→21:13)
--- NOTE | 2016-08-25 09:05 | HHI.PR ---
Subjective Remarks is more alert today. denies pain. no fever. d/w the RN and no acute issues over night. Objective Vitals Vital Signs Date Time Temp Pulse Resp B/P Pulse Ox O2 Delivery O2 Flow Rate FiO2 08/25/16 08:00 97.6 88 20 114/53 92 08/25/16 04:00 97.5 96 18 116/59 96 08/25/16 00:00 97.4 93 16 105/63 95 08/24/16 23:03 Room Air 08/24/16 20:00 97.6 87 18 125/57 94 08/24/16 16:00 98.7 96 20 120/54 94 08/24/16 12:00 99.8 86 18 117/55 91 I/O 08/24/16 08/24/16 08/24/16 08/25/16 08/25/16 08/25/16 07:00 15:00 23:00 07:00 15:00 23:00 Intake Total 550 ml 240 ml 50 ml Output Total 150 ml 1350 ml 400 ml 550 ml Balance -150 ml -800 ml -160 ml -500 ml Intake Oral 550 ml 240 ml 50 ml Output Urine Total 150 ml 1350 ml 400 ml 550 ml # Bowel Movements 3 2 1 Result Diagram: 08/22/16 0429 08/23/16 1025 Imaging Last Impressions Chest X-Ray 08/19/16 0000 Signed Impressions: Service Date/Time: Friday, August 19, 2016 18:46 - CONCLUSION: 1. Bibasilar streakiness consistent with atelectasis and/or infiltrates. 2. Cardiomegaly. 3. Poor inspiratory result. Shamar Banuelos MD Upper Extremity Ultrasound 07/28/16 0000 Signed Impressions: Service Date/Time: Thursday, July 28, 2016 14:34 - CONCLUSION: No DVT is identified within the right upper extremity. Alfredo Eng MD Brain MRI 07/20/16 0000 Signed Impressions: Service Date/Time: Wednesday, July 20, 2016 09:15 - CONCLUSION: No acute intracranial abnormality. Moderately severe chronic white matter changes, nonspecific but most likely small vessel ischemia. Alfredo Sneed MD Head CT 07/19/16 0000 Signed Impressions: Service Date/Time: Tuesday, July 19, 2016 09:58 - CONCLUSION: No acute intracranial findings. João Otoole MD Foot X-Ray 07/16/16 0000 Signed Impressions: Service Date/Time: Saturday, July 16, 2016 17:34 - CONCLUSION: 1. Nonspecific soft tissue swelling. No acute bone destruction demonstrated. 2. Mild talonavicular and navicular/cuneiform degenerative changes. 3. Second through fifth hammertoe. 4. Moderate-sized heel spur. Alfredo Sneed MD Objective Remarks GENERAL: in no apparent distress. CARDIOVASCULAR: Regular rate and irregular rhythm without murmurs, gallops, or rubs. RESPIRATORY: Clear to auscultation. Breath sounds equal bilaterally. No wheezes , rales, or rhonchi. GASTROINTESTINAL: Abdomen soft, non-tender, nondistended. Normal, active bowel sounds MUSCULOSKELETAL: both legs covered with clean dressing. NEURO: awake and alert Procedures 08/08/2016 PROCEDURE 1. Selective right lower extremity arteriogram. 2. Balloon angioplasty with a 4 mm x 2200 mm and then a 5 x 200 mm Luxury Retreatstronic angioplasty balloon of the right superficial femoral and proximal popliteal artery. 07/31/2016 Excision and debridement of both legs, extensive necrotic wounds approximately 30 x 25 cm area on each side, total 1000 to 1100 cm square, down to the subcutaneous tissue and tendon on the left side. Medications and IVs Current Medications Sodium Chloride (NS 1000 ml Inj) 1,000 ml @ 84 mls/hr [id number] IV Last administered on 08/05/16 16:12; Start 07/15/16 at 19:42; Stop 08/18/16 at 15:34 ; Status DC IV Flush (NS Flush) 2 ml UNSCH PRN IV FLUSH FLUSH AFTER USING IV ACCESS Last administered on 08/12/16 05:30; Start 07/15/16 at 19:45 IV Flush (NS Flush) 2 ml BID IV FLUSH Last administered on 08/25/16 08:32; Start 07/15/16 at 21:00 Fentanyl Citrate (fentaNYL INJ) 50 mcg Q3H PRN IV PUSH Pain scale 7-10 &/or sedation Last administered on 07/15/16 21:44; Start 07/15/16 at 19:45; Stop at 11:51; Status DC Famotidine (Pepcid Inj) 20 mg Q12HR IV PUSH Last administered on 07/15/16 20: 19; Start 07/15/16 at 21:00; Stop 07/15/16 at 21:24; Status DC Ondansetron HCl (Zofran Inj) 4 mg Q6H PRN IV NAUSEA OR VOMITING Last administered on 07/31/16 13:23; Start 07/15/16 at 19:45; Stop 08/12/16 at 20:17 ; Status DC Metoclopramide HCl (Reglan Inj) 5 mg Q6H PRN IV NAUSEA OR VOMITING; Start 07/15 at 19:45 Docusate Sodium (Colace) 100 mg BID PO Last administered on 08/07/16 21:00; Start 07/15/16 at 21:00; Stop 08/08/16 at 22:08; Status DC Albuterol/ Ipratropium (Duoneb Neb) 1 ampule Q2HR NEB PRN INH WHEEZING; Start 07/15/16 at 19:45 Heparin Sodium (Porcine) (Heparin Inj) 5,000 units Q8HR SQ Last administered on 08/24/16 22:24; Start 07/15/16 at 22:00 Miscellaneous Information 1 [id number] XX Last administered on 07/15/16 19:45; Start 07/15/16 at 19:45 Chlorhexidine Gluconate (Chlorhexidine 2% Cloth) 3 pack Taper DAILY@04 TOP Last administered on 07/17/16 03:11; Start 07/16/16 at 04:00; Stop 07/12/17 at 03:59 Chlorhexidine Gluconate (Chlorhexidine 2% Cloth) 3 pack UNSCH PRN TOP HYGIENIC CARE; Start 07/15/16 at 19:45 Acetaminophen (Ofirmev Inj) 1,000 mg Q6H PRN IV PAIN SCALE 1 TO 6; Start at 20:00; Stop 07/18/16 at 11:51; Status DC Ketorolac Tromethamine (Toradol Inj) 30 mg Q6H PRN IM PAIN SCALE 1 TO 7; Start 07/15/16 at 20:00; Stop 07/15/16 at 20:10; Status DC Ketorolac Tromethamine (Toradol Inj) 30 mg Q6H PRN IV PUSH PAIN 1-6 Last administered on 07/15/16 20:34; Start 07/15/16 at 20:15; Stop 07/18/16 at 11:51 ; Status DC Carvedilol (Coreg) 25 mg BID PO Last administered on 08/17/16 10:24; Start at 21:00; Stop 08/17/16 at 16:06; Status DC Fluconazole (Diflucan) 75 mg DAILY@17 PO Last administered on 07/16/16 17:03; Start 07/16/16 at 17:00; Stop 07/17/16 at 08:09; Status DC Isosorbide Dinitrate (Isordil) 5 mg Q8HR PO Last administered on 08/24/16 22:24 ; Start 07/15/16 at 22:00 Lactobacillus Acidophilus (Lactinex) 1 tab TID PO Last administered on 08:32; Start 07/16/16 at 09:00 Levofloxacin (Levaquin) 250 mg Q48H PO Last administered on 07/21/16 21:05; Start 07/15/16 at 22:00; Stop 07/23/16 at 16:37; Status DC Levothyroxine Sodium (Synthroid) 150 mcg DAILY@06 PO Last administered on 05:55; Start 07/16/16 at 06:00 Liothyronine Sodium (Cytomel) 5 mcg DAILY PO Last administered on 08/25/16 08: 32; Start 07/16/16 at 09:00 Non-Formulary Medication 325 mg DAILY PO ; Start 07/16/16 at 09:00; Status UNV Miscellaneous (Pill Splitter) 1 ea UNSCH PRN OTHER SEE LABEL COMMENTS; Start at 21:30 Famotidine (Pepcid Inj) 10 mg Q12HR IV PUSH Last administered on 07/17/16 07: 29; Start 07/16/16 at 09:00; Stop 07/18/16 at 10:59; Status DC Aspirin (Ecotrin Ec) 325 mg DAILY PO Last administered on 08/25/16 08:30; Start 07/16/16 at 09:00 Etomidate (Amidate Inj) 20 mg STK-MED ONCE .ROUTE ; Start 07/16/16 at 17:07; Stop 07/16/16 at 17:08; Status DC Famotidine (Pepcid Inj) 20 mg Q12HR IV PUSH Last administered on 08/12/16 09: 05; Start 07/18/16 at 21:00; Stop 08/12/16 at 20:17; Status DC Hydromorphone HCl (Dilaudid Pf Inj) 0.5 mg ONCE ONCE IV PUSH Last administered on 08/04/16 18:00; Start 07/18/16 at 11:45; Stop 07/18/16 at 11:46 ; Status DC Hydromorphone HCl (Dilaudid Pf Inj) 0.5 mg Q4H PRN IV PUSH breakthrough pain / dresing lori Last administered on 08/25/16 00:27; Start 07/18/16 at 11:45 Acetaminophen/ Hydrocodone Bitart ([place] 5-325 Mg) 1 tab Q6H PRN PO pain 2-10 Last administered on 08/12/16 09:04; Start 07/18/16 at 11:45; Stop 08/12/16 at 20:17; Status DC Diphenhydramine HCl 50 mg 50 mg STK-MED ONCE .ROUTE ; Start 07/19/16 at 11:20; Stop 07/19/16 at 11:21; Status DC Levetriacetam/ Sodium Chloride (Keppra Inj/NS Inj) 105 ml @ 420 mls/hr Q12HR IV Last administered on 07/20/16 08:19; Start 07/19/16 at 13:00; Stop at 16:25; Status DC Haloperidol Lactate (Haldol Inj) 2 mg Q6H PRN IM aggittation Last administered on 07/30/16 01:29; Start 07/19/16 at 12:30; Status Hold Lorazepam 1 mg 1 mg Q6H PRN IV PUSH seizures/agiatation Last administered on 06:09; Start 07/19/16 at 12:30; Status Hold Valproate Sodium 500 mg/Sodium Chloride 105 ml @ 105 mls/hr Q8H IV Last administered on 07/25/16 09:26; Start 07/20/16 at 18:00; Stop 07/25/16 at 09:54; Status DC Cefepime HCl/ Sodium Chloride (Maxipime Inj/NS Inj) 100 ml @ 200 mls/hr Q12H IV Last administered on 07/27/16 02:43; Start 07/21/16 at 15:00; Stop 07/27/16 at 09:00; Status DC Dextrose (D50w (Vial) Inj) 25 ml UNSCH PRN IV PUSH HYPOGLYCEMIA-SEE COMMENTS; Start 07/23/16 at 11:00 Glucagon (Glucagon Inj) 1 mg UNSCH PRN OTHER HYPOGLYCEMIA-SEE COMMENTS; Start 07/23/16 at 11:00 Insulin Aspart (NovoLOG SUPPLEMENTAL SCALE) 1 ACHS SLIDING SCALE SQ Last administered on 08/22/16 11:29; Start 07/23/16 at 11:00 Potassium Chloride (KCl) 40 meq ONCE ONCE PO Last administered on 07/24/16 13: 00; Start 07/24/16 at 13:00; Stop 07/24/16 at 13:01; Status DC Valproic Acid (Depakene) 500 mg Q8HR PO Last administered on 07/26/16 14:52; Start 07/25/16 at 15:00; Stop 07/26/16 at 17:39; Status DC Potassium Chloride (KCl) 30 meq ONCE ONCE PO Last administered on 07/26/16 19: 30; Start 07/26/16 at 16:30; Stop 07/26/16 at 16:36; Status DC Potassium Chloride (KCl) 30 meq ONCE ONCE PO Last administered on 07/26/16 22: 16; Start 07/26/16 at 20:00; Stop 07/26/16 at 20:01; Status DC Valproic Acid (Depakene) 250 mg Q12HR PO Last administered on 08/25/16 08:30; Start 07/27/16 at 09:00 Hydromorphone HCl (Dilaudid Pf Inj) 0.5 mg ONCE ONCE IV PUSH Last administered on 07/27/16 10:42; Start 07/27/16 at 10:45; Stop 07/27/16 at 10:46; Status DC Valsartan (Diovan) 80 mg HS PO Last administered on 08/19/16 21:58; Start 07/27 at 21:00; Stop 08/20/16 at 18:58; Status DC Enalaprilat (Vasotec Inj) 1.25 mg Q8H PRN IV PUSH SBP >180 OR DBP >100; Start 07/28/16 at 16:00 Fluconazole 100 mg 100 mg DAILY PO Last administered on 08/05/16 11:34; Start 07/30/16 at 09:45; Stop 08/05/16 at 16:53; Status DC Ceftriaxone Sodium/Sodium Chloride (Rocephin Inj/NS Inj) 100 ml @ 200 mls/hr Q24H IV Last administered on 08/01/16 09:45; Start 07/30/16 at 10:00; Stop 03/10 at 11:59; Status DC Potassium Chloride (KCl) 30 meq ONCE ONCE PO Last administered on 07/30/16 12: 12; Start 07/30/16 at 09:45; Stop 07/30/16 at 09:53; Status DC Potassium Chloride (KCl) 30 meq ONCE ONCE PO Last administered on 07/30/16 14: 00; Start 07/30/16 at 14:00; Stop 07/30/16 at 14:01; Status DC Insulin Detemir (Levemir Inj) 5 units HS SQ Last administered on 08/24/16 21:00 ; Start 07/30/16 at 21:00 Melatonin (Melatonin) 5 mg HS PO Last administered on 08/24/16 21:00; Start 07/30/16 at 21:00 Bupivacaine HCl (Marcaine Pf 0.5% Inj) 30 ml STK-MED ONCE .ROUTE ; Start at 10:12; Stop 07/31/16 at 10:13; Status DC Bupivacaine HCl/ Epinephrine Bitart (Sensorcaine-Epi 0.5% 50 ml Inj) 50 ml STK- MED ONCE .ROUTE ; Start 07/31/16 at 10:12; Stop 07/31/16 at 10:13; Status DC Bacitracin (Baciguent Oint) 15 applic STK-MED ONCE .ROUTE ; Start 07/31/16 at 10: 12; Stop 07/31/16 at 10:13; Status DC Dexamethasone Sodium Phosphate (Decadron Inj) 4 mg STK-MED ONCE .ROUTE Last administered on 07/31/16 10:24; Start 07/31/16 at 10:22; Stop 07/31/16 at 10:23; Status DC Famotidine (Pepcid Inj) 20 mg STK-MED ONCE IV PUSH Last administered on t 10:23; Start 07/31/16 at 10:23; Stop 07/31/16 at 10:27; Status DC Fentanyl Citrate 500 mcg 500 mcg STK-MED ONCE .ROUTE ; Start 07/31/16 at 12:13; Stop 07/31/16 at 12:14; Status DC Gentamicin Sulfate/Sodium Chloride (Gentamicin Inj/ NS Irr Btl) 1,005 ml @ 0 mls/hr UNSCH PRN IRRIGATION DRESSING CHANGES; Start 07/31/16 at 13:30 Miscellaneous Information ALL NURSING DEPARTME... UNSCH PRN XX SEE LABEL COMMENTS; Start 07/31/16 at 13:30; Stop 08/01/16 at 13:29; Status DC Propofol (Diprivan 200 Mg/20 ml Inj) 200 mg STK-MED ONCE IV ; Start 07/31/16 at 12:42; Stop 08/04/16 at 12:43; Status DC Ephedrine Sulfate (ePHEDrine/NS 25 MG/5 ML SYR) 25 mg STK-MED ONCE IV ; Start at 12:42; Stop 08/04/16 at 12:43; Status DC Phenylephrine HCl (Neosynephrine/ NS 1000 Mcg/10ml Syr) 1,000 mcg STK-MED ONCE IV ; Start 07/31/16 at 12:42; Stop 08/04/16 at 12:43; Status DC Ondansetron HCl (Zofran Inj) 4 mg STK-MED ONCE IV PUSH ; Start 07/31/16 at 12:42 ; Stop 08/04/16 at 12:43; Status DC Prednisone (Deltasone) 50 mg Q6H PO Last administered on 08/08/16 04:00; Start 08/07/16 at 16:00; Stop 08/08/16 at 04:01; Status DC Diphenhydramine HCl (Benadryl Inj) 50 mg ONCE ONCE IV ; Start 08/07/16 at 16:00 ; Stop 08/07/16 at 16:01; Status DC Midazolam HCl (Versed Inj) 2 mg STK-MED ONCE .ROUTE ; Start 08/08/16 at 08:24; Stop 08/08/16 at 08:25; Status DC Diphenhydramine HCl (Benadryl Inj) 50 mg STK-MED ONCE .ROUTE ; Start 08/08/16 at 08:24; Stop 08/08/16 at 08:25; Status DC Hydrocortisone Sodium Succinate (SoluCORTEF INJ) 100 mg STK-MED ONCE .ROUTE Last administered on 08/08/16 08:52; Start 08/08/16 at 08:50; Stop 08/08/16 at 08:51; Status DC Ketamine HCl (Ketalar Inj) 500 mg STK-MED ONCE .ROUTE ; Start 08/08/16 at 08:59 ; Stop 08/08/16 at 09:00; Status DC Iohexol 100 ml 100 ml STK-MED ONCE OTHER Last administered on 08/08/16 08:50; Start 08/08/16 at 08:50; Stop 08/08/16 at 09:45; Status DC Nitroglycerin/ Dextrose (Nitroglycerin-Dextrose Inj) 250 ml @ As Directed STK- MED ONCE .ROUTE ; Start 08/08/16 at 09:57; Stop 08/08/16 at 09:58; Status DC Iohexol (Omnipaque 300 Inj) 50 ml STK-MED ONCE OTHER Last administered on 10:10; Start 08/08/16 at 10:10; Stop 08/08/16 at 10:31; Status DC Midazolam HCl (Versed Inj) 2 mg STK-MED ONCE .ROUTE ; Start 08/08/16 at 11:01; Stop 08/08/16 at 11:02; Status DC Fentanyl Citrate (fentaNYL INJ) 250 mcg STK-MED ONCE .ROUTE ; Start 08/08/16 at 11:02; Stop 08/08/16 at 11:03; Status DC Fentanyl Citrate (fentaNYL INJ) 100 mcg STK-MED ONCE .ROUTE ; Start 08/08/16 at 11:02; Stop 08/08/16 at 11:03; Status DC Morphine Sulfate (Morphine Inj) 4 mg STK-MED ONCE .ROUTE ; Start 08/08/16 at 11: 03; Stop 08/08/16 at 11:04; Status DC Morphine Sulfate (*morphine INJ PERIprocedure ONLY) 8 mg STK-MED ONCE .ROUTE Last administered on 08/08/16 11:17; Start 08/08/16 at 11:17; Stop 08/08/16 at 11:18; Status DC Miscellaneous Information ALL NURSING DEPARTME... UNSCH PRN XX SEE LABEL COMMENTS; Start 08/08/16 at 12:30; Stop 08/09/16 at 12:29; Status DC Lorazepam (Ativan) 0.25 mg Q12H PRN PO ANXIETY; Start 08/09/16 at 14:00; Stop 08/11/16 at 14:33; Status DC Propofol (Diprivan 200 Mg/20 ml Inj) 800 mg STK-MED ONCE IV ; Start 08/08/16 at 12:00; Stop 08/11/16 at 12:57; Status DC Heparin Sodium (Porcine) (Heparin Inj) 5,000 units STK-MED ONCE OTHER ; Start at 12:00; Stop 08/11/16 at 13:02; Status DC Potassium Chloride (KCl) 10 meq Q8HR PO Last administered on 08/16/16 06:08; Start 08/11/16 at 14:00; Stop 08/16/16 at 13:59; Status DC Clonazepam (KlonoPIN) 0.5 mg Q8HR PO Last administered on 08/12/16 05:29; Start 08/11/16 at 14:45; Stop 08/12/16 at 12:49; Status DC Diphenhydramine HCl (Benadryl) 25 mg ONCE ONCE PO Last administered on 17:50; Start 08/11/16 at 14:45; Stop 08/11/16 at 15:05; Status DC Clonazepam (KlonoPIN) 0.5 mg Q8H PRN PO ANXIETY Last administered on 08/25/16 00:25; Start 08/12/16 at 12:45 Gabapentin (Neurontin) 200 mg TID PO Last administered on 08/12/16 14:59; Start 08/12/16 at 13:00; Stop 08/14/16 at 16:07; Status DC Methadone HCl (Dolophine) 2.5 mg Q12HR PO Last administered on 08/25/16 08:31; Start 08/12/16 at 21:00 Doxycycline Hyclate (Vibratab) 100 mg Q12HR PO Last administered on 08/16/16 22:41; Start 08/12/16 at 22:45; Stop 08/17/16 at 08:21; Status DC Quetiapine Fumarate (SEROquel) 12.5 mg ONCE ONCE PO Last administered on 10:45; Start 08/13/16 at 10:45; Stop 08/13/16 at 10:50; Status DC Quetiapine Fumarate (SEROquel) 12.5 mg BID PO Last administered on 08/13/16 20 :32; Start 08/13/16 at 21:00; Stop 08/14/16 at 12:41; Status DC Gabapentin (Neurontin) 300 mg ONCE ONCE PO Last administered on 08/13/16 11: 00; Start 08/13/16 at 11:00; Stop 08/13/16 at 11:09; Status DC Acetaminophen (Tylenol) 500 mg Q6H PRN PO FEVER >100.4; Start 08/13/16 at 17:15 Quetiapine Fumarate (SEROquel) 6.25 mg HS PO Last administered on 08/24/16 21: 00; Start 08/14/16 at 21:00 Quetiapine Fumarate (SEROquel) 6.25 mg DAILY PRN PO agitated delirium Last administered on 08/24/16 07:57; Start 08/14/16 at 12:45 Gabapentin (Neurontin) 300 mg TID PO Last administered on 08/15/16 13:25; Start 08/15/16 at 09:00; Stop 08/15/16 at 14:20; Status DC Gabapentin (Neurontin) 400 mg ONCE ONCE PO ; Start 08/14/16 at 16:15; Stop at 16:15; Status DC Gabapentin (Neurontin) 200 mg ONCE ONCE PO Last administered on 08/14/16 17: 00; Start 08/14/16 at 16:30; Stop 08/14/16 at 16:33; Status DC Gabapentin (Neurontin) 400 mg TID PO Last administered on 08/18/16 12:34; Start 08/15/16 at 18:00; Stop 08/18/16 at 13:52; Status DC Mupirocin (Bactroban 2% Oint) 1 applic Q12HR TOPICAL Last administered on 21:00; Start 08/15/16 at 15:00 Hydrocortisone 1 applic 1 applic Q8H TOPICAL Last administered on 08/24/16 22: 12; Start 08/15/16 at 20:00 Levofloxacin/ Dextrose (Levaquin 750 Mg Premix Inj) 150 ml @ 100 mls/hr Q24H IV Last administered on 08/16/16 09:41; Start 08/16/16 at 08:00; Stop at 08:21; Status DC Lactobacillus Acidophilus 1 tab 1 tab TID PO Last administered on 08/24/16 17: 03; Start 08/16/16 at 09:00 Vancomycin HCl 1750 mg/Sodium Chloride 517.5 ml @ 258.75 mls/ hr ONCE ONCE IV Last administered on 08/17/16 10:21; Start 08/17/16 at 10:00; Stop 08/17/16 at 11:59; Status DC Pharmacy Profile Note 0 ml @ 0 mls/hr UNSCH OTHER ; Start 08/17/16 at 08:15; Stop 08/18/16 at 16:18; Status DC Piperacillin Sod/ Tazobactam Sod 50 ml @ 100 mls/hr Q6H IV Last administered on 08/18/16 09:15; Start 08/17/16 at 09:00; Stop 08/18/16 at 13:02; Status DC Sodium Chloride 1,000 ml @ 999 mls/hr BOLUS ONCE IV Last administered on 08/17 08:30; Start 08/17/16 at 08:30; Stop 08/17/16 at 09:30; Status DC Sodium Chloride 1,000 ml @ 200 mls/hr Q5H IV ; Start 08/17/16 at 09:00; Stop at 18:59; Status DC Vancomycin HCl/ Sodium Chloride (Vancomycin Inj/ NS 250 ml Inj) 250 ml @ 250 mls/hr Q12H IV Last administered on 08/18/16 12:33; Start 08/17/16 at 22:00; Stop 08/18/16 at 16:31; Status DC Miscellaneous Information SPECIFIC LAB TO BE [facility]... ONCE ONCE XX ; Start at 21:45; Stop 08/18/16 at 21:45; Status DC Olanzapine 10 mg 10 mg Q12H PRN IM acute agitation; Start 08/17/16 at 16:15; Stop 08/19/16 at 16:14; Status DC Levofloxacin/ Dextrose 150 ml @ 100 mls/hr Q24H IV ; Start 08/18/16 at 09:00; Stop 08/18/16 at 09:00; Status DC Levofloxacin/ Dextrose (Levaquin 750 Mg Premix Inj) 150 ml @ 100 mls/hr Q48H IV Last administered on 08/18/16 09:54; Start 08/18/16 at 09:00; Stop at 13:02; Status DC Miscellaneous Medication (ASP Crit: Doc ESBL, MDR A baumannii or P aer) 1 UNSCH X1 PRN XX PHARMACY DOCUMENTATION; Start 08/18/16 at 13:00; Stop 08/19/16 at 12: 59; Status DC Miscellaneous Medication 1 1 UNSCH X1 PRN XX PHARMACY DOCUMENTATION; Start at 13:00; Stop 08/19/16 at 12:59; Status DC Meropenem/Sodium Chloride (Merrem Inj/NS Inj) 100 ml @ 200 mls/hr Q8H IV Last administered on 08/21/16 06:14; Start 08/18/16 at 14:00; Stop 08/21/16 at 07:36 ; Status DC Gabapentin 600 mg 600 mg TID PO Last administered on 08/25/16 08:32; Start at 18:00 Sodium Chloride 1,000 ml @ 150 mls/hr Q6H40M IV Last administered on 17:44; Start 08/18/16 at 15:30; Stop 08/20/16 at 17:43; Status DC Sodium Chloride (NS 250 ml Inj) 250 ml @ 15 mls/hr ONCE ONCE IV Last administered on 08/19/16 06:34; Start 08/18/16 at 16:45; Stop 08/19/16 at 09:24 ; Status DC Acetaminophen (Tylenol) 650 mg Q4H PRN PO SEE LABEL COMMENTS; Start 08/18/16 at 16:45; Stop 08/18/16 at 20:46; Status DC Diphenhydramine HCl 25 mg 25 mg Q4H PRN PO SEE LABEL COMMENTS; Start 08/18/16 at 16:45; Stop 08/18/16 at 20:46; Status DC Linezolid (Zyvox 600 Mg Premix) 300 ml @ 300 mls/hr Q12H IV Last administered on 08/20/16 22:54; Start 08/19/16 at 08:00; Stop 08/21/16 at 07:36; Status DC Albumin Human (Albumin 25% Inj) 12.5 gm Q8H IV Last administered on 08/22/16 11:31; Start 08/20/16 at 20:00; Stop 08/22/16 at 13:51; Status DC Bumetanide (Bumex Inj) 1 mg Q8H IV PUSH Last administered on 08/22/16 12:44; Start 08/20/16 at 20:00; Stop 08/22/16 at 13:51; Status DC Metronidazole (Flagyl) 500 mg Q6HR PO ; Start 08/21/16 at 09:00; Stop 08/21/16 at 09:00; Status DC Vancomycin HCl (VANCOMYCIN for oral use only) 500 mg QID PO Last administered on 08/25/16 08:30; Start 08/21/16 at 09:00 Chlorothiazide Sodium (Diuril Inj) 250 mg ONCE ONCE IV Last administered on 21:03; Start 08/21/16 at 20:00; Stop 08/21/16 at 20:01; Status DC Potassium Phos/ Sodium Phos (K-Phos Neutral) 250 mg BID PO Last administered on 08/22/16 07:41; Start 08/21/16 at 21:00; Stop 08/22/16 at 20:59; Status DC Bumetanide (Bumetanide) 1 mg DAILY PO Last administered on 08/25/16 08:31; Start 08/23/16 at 09:00 Potassium Chloride (KCl) 20 meq ONCE ONCE PO Last administered on 08/22/16 14 :23; Start 08/22/16 at 14:00; Stop 08/22/16 at 14:01; Status DC Valsartan (Diovan) 40 mg DAILY PO Last administered on 08/25/16 08:44; Start at 09:00 A/P Assessment and Plan A/P - Chronic lower ext wound - Peripheral vascular disease - Severe neuropathic pain - Plastic surgery signed off. They recommended hyperbaric chamber and future skin graft. - Dilaudid PRN for pain. - Gabapentin 600mg TID. - Continue low dose Seroquel, Methadone per Palliative care. - hyperbaric tx is not a viable option and patient cannot be discharged home. -previously the option of topical oxygen therapy has been discussed. - C. Diff colitis - evaluated by ID- All abx discontinued and patient is currently on Vancomycin PO. -acute encephalopathy with Hx of seizure activity - continue Valproic acid 250mg Q12hrs/ reconsulted neurology - Left neck rash - could be contact dermatitis- improving - Continue topic abx, steroid. - UTI - Microbiology growing ESBL - Received Doxycycline -Anxiety, acute psychosis. - Received Zyprexa. If needed, we can use Zyprexa or Geodon. -on Seroquel at night. -Diabetes mellitus - Continue Levemir 5 units QHS and sliding scale insulin. Monitor for hypoglycemia. -Hypothyroidism - continue levothyroxine 150 g daily. -Hypertension - continue Valsartan . -Cardiomyopathy - Continue Valsartan, Isosorbide. -Anemia - s/p PRBC transfusion- H/H fairly stable. - Anasarca/ hypoalbuminemia - receive albumin- evaluated by nephrology. - If oral intake does not improve, alternative nutrition should be addressed and this was previously d/w the son. -philosophy and religion instructor following. Full code. Heparin SQ. palliative care following. Discharge Planning d/w the case management today; patient can be discharged home and there's no accepting facility. of note the patient will not be able to receive hyperbaric oxygen therapy at SNF. Conrad Clancy MD Aug 25, 2016 09:04
[2016-08-25] MEDS: INSULIN ASPART SUPPLEMENTAL SCALE SQ SCH ×3 (10:56→21:10)
[2016-08-25 12:00] VITALS: BP 130/60; PULSE 87; RESP 18; TEMP 98.8; O2SAT 94
[2016-08-25] MEDS: HYDROCORTISONE 1% CREAM 30 GM TOPICAL SCH ×2 (12:00→21:12)
--- NOTE | 2016-08-25 13:52 | HHI.IDPN ---
Subjective Subjective Remarks is a 61 y/o CF with PVD s/p revascularization. ESBL in her wounds likely colonization. Cdiff positive diarrhea. Afebrile. Rash on her left side of neck, face (sparing the nose, mouth) but involving the ear pinna. Rash on the nape of neck. Rash not following dermatomal patterns. No diarrhea Antibiotics Zosyn IV Vanco IV Levaquin Lines Line sites with no e.o infection. Past Medical History PVD - has CTA last year and has lesions that could be corrected Hypertension Diabetes Cardiomyopathysustained after contrast-induced flash pulmonary edema- latest EF was 30% in March 2016. Obesity Hypothyroidism History of dermoid cyststatus post left oophorectomy 25 years ago Past Surgical History Left oophorectomy for dermoid cyst removal Cholecystectomy Hernia repair Allergies: Coded Allergies: Contrast Media (Verified Allergy, Severe, Flash pulmonary edema , 06/16/16) PEANUTS (Verified Allergy, Severe, rash, 07/03/16) swelling of the tongue Santyl (Verified Allergy, Intermediate, Irritation, 07/09/16) *MDRO Multi-Drug Resistant Organism (Verified Adverse Reaction, Unknown, ) MRSA (leg wound) - 07/31/2016 & 08/14/16 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/2016 ESBL E. coli (urine) - 08/10/2016 Objective . Vital Signs Date Time Temp Pulse Resp B/P Pulse Ox O2 Delivery O2 Flow Rate FiO2 08/25/16 12:00 98.8 87 18 130/60 94 08/25/16 09:00 Nasal Cannula 2.00 08/25/16 08:00 97.6 88 20 114/53 92 08/25/16 04:00 97.5 96 18 116/59 96 08/25/16 00:00 97.4 93 16 105/63 95 08/24/16 23:03 Room Air 08/24/16 20:00 97.6 87 18 125/57 94 08/24/16 16:00 98.7 96 20 120/54 94 08/24/16 08/24/16 08/25/16 14:59 22:59 06:59 Intake Total 550 ml 240 ml 50 ml Output Total 1350 ml 400 ml 550 ml Balance -800 ml -160 ml -500 ml Intake Oral 550 ml 240 ml 50 ml Output Urine Total 1350 ml 400 ml 550 ml # Bowel Movements 3 2 1 Imaging Chest X-Ray 07/20/16 0000 Signed Impressions: Service Date/Time: Wednesday, July 20, 2016 12:38 - CONCLUSION: Mild left base consolidation developing. Alfredo Sneed MD Brain MRI 07/20/16 0000 Signed Impressions: Service Date/Time: Wednesday, July 20, 2016 09:15 - CONCLUSION: No acute intracranial abnormality. Moderately severe chronic white matter changes, nonspecific but most likely small vessel ischemia. Alfredo Sneed MD Head CT 07/19/16 0000 Signed Impressions: Service Date/Time: Tuesday, July 19, 2016 09:58 - CONCLUSION: No acute intracranial findings. João Otoole MD Foot X-Ray 07/16/16 0000 Signed Impressions: Service Date/Time: Saturday, July 16, 2016 17:34 - CONCLUSION: 1. Nonspecific soft tissue swelling. No acute bone destruction demonstrated. 2. Mild talonavicular and navicular/cuneiform degenerative changes. 3. Second through fifth hammertoe. 4. Moderate-sized heel spur. Alfredo Sneed MD Physical Exam GENERAL: Obese, CF. SKIN: Rash on her left side of neck, face (sparing the nose, mouth) but involving the ear pinna. Rash on the nape of neck. Rash not following dermatomal patterns. HEENT: [place] conjunctivae. No icterus, moist mucosa NECK: Trachea midline. Supple, nontender, no meningeal signs. CARDIOVASCULAR: HS audible. No murmur appreciated. Decreased BS at bases RESPIRATORY: Clear to auscultation. Breath sounds equal bilaterally. GASTROINTESTINAL: Abdomen soft, non-tender, nondistended. Obese. MUSCULOSKELETAL: Bilateral extremities with ulcers, has slough,edema better, has dry gangrene L 2nd and 3rd toes NEUROLOGICAL: confused but more alert today, moves all extremities. Psych: could not be assessed. IV line sites with no e.o infection. Assessment & Plan Remarks Penumonia: likely aspiration in health care setting treated. ESBL in urine ? likely colonization. Diarrhea: cdiff positive. Dry gangrene 2 toes L foot PVD, S/P revascularization Encephalopathy, prob pain meds a big factor, ? pain meds related. Cardiomyopathy DM with neuropathy. Hypothyroidism Chronic narcotic use. Anxiety and Depression. PLAN No systemic antibiotics in view of Cdiff unless change in clinical condition. reconsult ID in that case. Continue oral vanco 125 mg po q6hrs for 14 days. Follow clinically. edwardo Elizalde. Will sign off please call back if any change in clinical condition or questions. Charisse Pedraza MD Aug 25, 2016 13:52 area of normal tissue as well to determine cause. When derm biopsy sent please sent tissue for micro and pathology in saline. 1. Micro : regular stains and culture, AFB stain and culture, Fungal stain and culture. 2. Pathology. Follow cultures Follow clinically. Charisse Pedraza MD Aug 25, 2016 13:52
[2016-08-25] MEDS: HEPARIN SODIUM - SQ 10,000 UNITS/ML VIAL SQ SCH ×2 (14:56→21:07)
[2016-08-25] MEDS: ISOSORBIDE DINITRATE 5 MG TAB PO SCH ×2 (14:57→21:08)
--- NOTE | 2016-08-25 15:59 | HHI.PR ---
Subjective Remarks Very confused waxes and wanes but never at baseline from before.On low dose pain meds. Objective Vital Signs Date Time Temp Pulse Resp B/P Pulse Ox O2 Delivery O2 Flow Rate FiO2 08/25/16 12:00 98.8 87 18 130/60 94 08/25/16 09:00 Nasal Cannula 2.00 08/25/16 08:00 97.6 88 20 114/53 92 08/25/16 04:00 97.5 96 18 116/59 96 08/25/16 00:00 97.4 93 16 105/63 95 08/24/16 23:03 Room Air 08/24/16 20:00 97.6 87 18 125/57 94 08/24/16 16:00 98.7 96 20 120/54 94 I/O 08/24/16 08/24/16 08/24/16 08/25/16 08/25/16 08/25/16 07:00 15:00 23:00 07:00 15:00 23:00 Intake Total 550 ml 240 ml 50 ml Output Total 150 ml 1350 ml 400 ml 550 ml Balance -150 ml -800 ml -160 ml -500 ml Intake Oral 550 ml 240 ml 50 ml Output Urine Total 150 ml 1350 ml 400 ml 550 ml # Bowel Movements 3 2 1 sleepy arouses looks around unable to state daughters name gave me her name perrla no nystagmus speech not slurred. motor moves arms does not follow commands legs with dressing and gangrene of toes noted. gait unable to assess Result Diagram: 08/22/16 0429 08/23/16 1025 Objective Remarks opens eyes with sternal rub looks at me stated her first name then falls asleep again and willnot follow commands no facial droop ,no slurring of speech perrla oriented to self. motor moves all extremities Assessment and Plan Assessment and Plan encephalopathy not improving r/o other causes -check eeg and vpa level -check mri to r/o stroke -check LP r/o other causes. Althea Rodriguez MD Aug 25, 2016 15:59
[2016-08-25 16:00] VITALS: BP 130/58; PULSE 100; RESP 18; TEMP 100.3; O2SAT 99
--- NOTE | 2016-08-25 16:41 | HHI.HCPN ---
Reason for visit a. To assist with evaluation and management of symptoms including: delirium , pain, lethargy. b. To assist medical decision maker(s) with: better understanding of current medical conditions; weighing benefits/burdens of medical treatment options; making medical treatment decisions. . Subjective/Interval History Patient seen and examined in room. Tanisha Juárez at bedside. Patient is awake upon entering, yelling out then falling asleep quickly. Not tracking consistently. She is speaking jibberish most of the time, appears to be hallucinating intermittently, talking to her "daddy." She remains on methadone low-dose scheduled (2.5mg every 12 hours ATC) and on the low-dose quetiapine (6.25mg q HS). When asked if she has pain she says no. Dr. Rodriguez present during a portion of my visit. Patient is unable to tell us her daughters name (Tanisha) or relationship. She calls her Elzbieta (no family with that name per daughter). Daughter feels he mother continues to decline. She is concerned about her nutritional status and worsening mental status. I briefly talked about CODE Status, she feels NO CODE would be most appropriate but does not want to make this decision without speaking to her brother, offered a family meeting to discuss, she will let me know a time. She is appropriately tearful continues to state, I keep going back to them just amputating her legs, as she will never walk again and I can't believe it will hurt. Remains on Vancomycin for C. difficile, ID has signed off for now. Afebrile. Vital signs stable for now. Screams when attempting to float heals, but again denies pain. No new labs or imaging. . Family/friend interactions Lengthy conversation with Tanisha juárez at bedside. See interval note. . Advance Directives Living Will: Never completed Health Care Surrogate: Never completed Durable Power of Kettle Firer: Completed, but not made available Advance Directive Specifics Date completed: Family reports there is a completed POA document -- not available to us at this time. Unknown date. . Health Care Surrogate(s): is reportedly the health care POA. Even if there is no documented designation of health care POA or surrogate, he would serve as proxy. Spoke with in person on 08/12/16. He tells me how he knows nothing about health care and is fine if patient's daughter Blanche serves as proxy. If does not want to serve, it would fall to both son and daughter. Patient 's son also defers decision-making to patient's daughter Blanche, as he is often out of the country and unavailable. . Documented care wishes: No documented wishes of patient's expressed health care goals/preferences. . Significant change in goals: FULL CODE. Continue aggressive care. Daughter and son continue to question need for amputation. Daughter is waiting for invoice for [employer] (topical hyperbaric oxygen therapy) to pay and then they will deliver. . Objective Vital Signs Date Time Temp Pulse Resp B/P Pulse Ox O2 Delivery O2 Flow Rate FiO2 08/25/16 12:00 98.8 87 18 130/60 94 08/25/16 09:00 Nasal Cannula 2.00 08/25/16 08:00 97.6 88 20 114/53 92 08/25/16 04:00 97.5 96 18 116/59 96 08/25/16 00:00 97.4 93 16 105/63 95 08/24/16 23:03 Room Air 08/24/16 20:00 97.6 87 18 125/57 94 Intake & Output 08/25/16 08/25/16 07:00 19:00 Intake Total 290 ml Output Total 950 ml Balance -660 ml Intake Oral 290 ml Output Urine Total 950 ml # Bowel Movements 3 Physical Exam CONSTITUTIONAL/GENERAL: This is an adequately nourished patient. Yelling out, confused, most speech not making sense. SKIN: No jaundice. Ecchymoses on upper extremities. I did not remove the patient's lower extremity dressings which are wet. Dry, gangrenous changes are noted on the digits of both feet. Skin temperature appropriate. Not diaphoretic. There is a rash on the left side of the face and neck that seems to be healing. CARDIOVASCULAR: Regular rate and rhythm without gallops, or rubs. 2/6 systolic murmur heard. RESPIRATORY/CHEST: Symmetric, unlabored respirations. Clear to auscultation. Breath sounds equal bilaterally. No wheezes, rales, or rhonchi. GASTROINTESTINAL: Abdomen soft, non-tender, nondistended. No hepato-splenomegaly , or palpable masses. No guarding. Bowel sounds present. MUSCULOSKELETAL: Both lower extremities are edematous. Dressing was not removed from her wounds. Dry gangrenous changes to the digits of both feet. Thick-appearing heel eschars. NEUROLOGICAL: Moves all extremities. Yelling out, more confused, lethargic. Speech not making sense most of the time. She does not know her daughters name or relationship. Not consistently tracking. PSYCHIATRIC: Confused, lethargic, delirious. . Diagnostic Tests Laboratory Laboratory Tests Test 08/23/16 10:25 Sodium Level 138 MEQ/L (136-145) Potassium Level 4.3 MEQ/L (3.5-5.1) Chloride Level 100 MEQ/L (98-107) Carbon Dioxide Level 31.1 MEQ/L (21.0-32.0) Anion Gap 7 MEQ/L (5-15) Blood Urea Nitrogen 9 MG/DL (7-18) Creatinine 0.59 MG/DL (0.50-1.00) Estimat Glomerular Filtration 103 ML/MIN Rate (>89) Random Glucose 125 MG/DL (74-106) Calcium Level 7.9 MG/DL (8.5-10.1) Result Diagram: 08/22/16 0429 08/23/16 1025 Imaging Last Impressions Chest X-Ray 08/19/16 0000 Signed Impressions: Service Date/Time: Friday, August 19, 2016 18:46 - CONCLUSION: 1. Bibasilar streakiness consistent with atelectasis and/or infiltrates. 2. Cardiomegaly. 3. Poor inspiratory result. Shamar Banuelos MD Upper Extremity Ultrasound 07/28/16 0000 Signed Impressions: Service Date/Time: Thursday, July 28, 2016 14:34 - CONCLUSION: No DVT is identified within the right upper extremity. Alfredo Eng MD Brain MRI 07/20/16 0000 Signed Impressions: Service Date/Time: Wednesday, July 20, 2016 09:15 - CONCLUSION: No acute intracranial abnormality. Moderately severe chronic white matter changes, nonspecific but most likely small vessel ischemia. Alfredo Sneed MD Head CT 07/19/16 0000 Signed Impressions: Service Date/Time: Tuesday, July 19, 2016 09:58 - CONCLUSION: No acute intracranial findings. João Otoole MD Foot X-Ray 07/16/16 0000 Signed Impressions: Service Date/Time: Saturday, July 16, 2016 17:34 - CONCLUSION: 1. Nonspecific soft tissue swelling. No acute bone destruction demonstrated. 2. Mild talonavicular and navicular/cuneiform degenerative changes. 3. Second through fifth hammertoe. 4. Moderate-sized heel spur. Alfredo Sneed MD . Procedures 07/31/2016 Excision and debridement of both legs, extensive necrotic wounds approximately 30 x 25 cm area on each side, total 1000 to 1100 cm square, down to the subcutaneous tissue and tendon on the left side. 08/08/2016 1. Selective right lower extremity arteriogram. 2. Balloon angioplasty with a 4 mm x 2200 mm and then a 5 x 200 mm [employer] angioplasty balloon of the right superficial femoral and proximal popliteal artery. Note that patient had these additional procedures on prior admissions: * Bilateral lower extremity wound debridements 05/15/16 * Bilateral LE Debridements and Left SFA angioplasty on 06/23/16 . Assessment and Plan Disease Oriented Problem List: (1) complicated/infected/necrotic foot and leg wounds (2) PVD (peripheral vascular disease) Comment: With infected/nonhealing wounds and gangrene (3) DM (diabetes mellitus), type 2, uncontrolled, periph vascular complic (4) CHF (congestive heart failure) (5) Hypertension (6) Cellulitis of left lower extremity (7) Delirium due to another medical condition (8) VT (ventricular tachycardia) (9) Ulcer of heel and midfoot (10) Hypothyroidism (11) Anemia (12) Urinary tract infection Comment: Cx of 08/11/16 growing out E coli ESBL . Symptom Scale: (1) Pain 0-10 Scale: 0 Comment: Denies pain when asked today, appears painful or at least uncomfortable when awake. There is frequent moaning and calling out suggesting the pain is quite severe but at times hollering appears more due to delirium than to pain.. Pain most likely due to ischemia and the wounds themselves. May be a component of neuropathic pain from the diabetes - on low dose and Seroquel. Also on gabapentin. . (2) Confusion 0-10 Scale: Unable to quantify Comment: Confusion is probably multifactorial. Patient apparently was cognitively sharp up until about 05/13/2016. Has had intermittent confusion since including hallucinations and disorientation. Now with known UTI which may be contributing. . (3) Lethargy 0-10 Scale: Unable to quantify (4) Delirium 0-10 Scale: Unable to quantify Comment: probably multifactorial, daughter feels this is worsening in the past 5 days. Pertinent Non-Medical Issues Psychosocial: Psychosocial support from and daughter (lives locally). Son in [place] is very involved, but is often working out of the country. Spiritual: Islam. Had been a member of [employer]. Legal: Family reports there is a completed POA for finance and health care. and patient's son are OK yielding decision making to patient's daughter. Ethical issues impacting care: Patient is currently incapacitated due to delirium. . Important Contacts * Alfredo Lemos (spouse) [phone] * Kalpesh (son) [phone] * Blanche (daughter) [phone] . Prognosis The patient has severe peripheral vascular disease and accompanying refractory lower extremity wounds. Wounds have worsened in spite of aggressive care beginning in March 2016. She has undergone re-vascularization procedures on both lower extremities since May. Wounds now involve tendon structures in the feet. Patient might be able to benefit and achieve healing with hyperbaric oxygen. Otherwise she will likely need bilateral below the knee amputations. Prognosis greatly depends on success of managing these infections/wounds. While these infections/wounds continue, she remains at risk for sepsis. Based on the document management consultant's notes, it appears unlikely regardless of treatment course that she will be ambulating independently in the future. Her success in any type of rehabilitation will also depend on her ability to clear cognitively, improve her nutritional status, and have adequate pain relief without accompanying oversedation. . Code Status: Full Code Plan * Decision making: Patient is currently incapacitated to make her own health care decisions. She is confused and it is unclear if/when she will regain capacity. Although her husbandJohnis technically her health care decision- maker, he and the patient's son have both ceded decision-making to the patient' s daughter Blanche. * CODE STATUS: Full code discussed with daughter 08/25/16 - considering a family meeting to discuss with step-father and brother. She is considering NO CODE, not sure her brother will agree (stating he is not medical). * Goals of medical treatment: At this time goals are aggressive. 08/25/16: Daughter Blanche reported that she and her brother and her stepfather are all to a point where they are feeling that the patient may be better off having the amputations completed "to give her a chance at recovery," rather than to continue down this road where the patient seems to be getting weaker, more confused, and is eating minimal calories? Understands she may require PEG tube. Wants to proceed with hyperbaric treatment ([employer] payment will be made once invoice received and then to be delivered). Considering CODE status. Offered family meeting. * Confusion: Her confusion/delirium is likely multifactorial; we will continue the low-dose quetiapine for now. Discussed with Dr. Rodriguez she is considering repeat EEG, MRI and spinal tap. * Pain: Pain appears mostly secondary to ischemic pain and wound pain in the lower extremities. She may also have some lower extremity pain secondary to diabetic neuropathy (on Gabapentin). Patient is unable to quantify or qualify her pain adequately due to her cognitive challenges. She apparently had a negative reaction to fentanyl. She became too sedated on higher dose gabapentin. Remains on low dose Methadone 2.5mg PO every 12 hours ATC. . Will leave prn hydromorphone in place for breakthrough (has only had 2 doses in the past 24 hours). When patient is screaming, it is understandably difficult for nursing staff to differentiate between pain and delirium. * Wounds: The family has stated that the wounds began on the abdomen and buttock which make it less likely that these wounds began because of PVD. Also , vascular surgery feels that the wounds are out of proportion to the level of vascular disease. Dr. White is wondering about an underlying autoimmune disease to explain wounds that appear out of proportion to her vascular disease.....work-up ordered 08/20/16. * Disposition: Unclear at this time. Concern for continued decline. May need PEG tube as patient is now only eating bites and sips. * Palliative care will continue to follow the patient to assist with symptom management and to further clarify goals of medical treatment as the clinical course evolves. . Time Spent Total Floor Time (mins): 60 Face to Face Time (mins): 45 >50% Counseling/Coord of Care: Yes Attestation To help prompt me to consider important information that might be impacting today's encounter and assessment, information from prior notes written by myself or my colleagues may have been "brought forward" into today's note. My signature on this note, however, is an attestation that I personally performed the exam, history, and/or decision-making noted today, and, unless otherwise indicated, the interactions with patient, family, and staff as well as the review of records all occurred today. I also attest that the listed assessment and stated plan reflect my best clinical judgment today based on the combination of historical information, prior notes, and today's exam/ interactions. When time spent is documented, it refers only to time spent today by the signer, or if indicated, combined time spent today by collaborating physician/nurse practitioner. CORTNEY ARCEO Aug 25, 2016 16:41
[2016-08-25] MEDS ORDERED: LORazepam 2 MG/ML VIAL IV SCH (17:00)
[2016-08-25 17:54] LABS: CRYOCRIT NONE DETECTED (NONE DETECTED)
[2016-08-25 17:56] LABS: APTT (PATIENT) 26.7 SEC (24.3-30.1); PROTHROMBIN TIME - PATIENT 11.6 SEC (9.8-11.6)
[2016-08-25 20:00] VITALS: BP 135/61; PULSE 97; RESP 20; TEMP 101; O2SAT 96
--- NOTE | 2016-08-25 20:09 | RADRPT ---
EXAM DATE/TIME: 08/25/2016 19:01 [facility] COMPARISON: CT BRAIN W/O CONTRAST, July 19, 2016, 9:58. INDICATIONS : Encephalitis. MEDICAL HISTORY : Diabetes mellitus type 2. Hypertension. SURGICAL HISTORY : Cholecystectomy. Hysterectomy. ENCOUNTER: Subsequent ACUITY: 2 months PAIN SCORE: 10/10 LOCATION: Bilateral cranial TECHNIQUE: Multiplanar, multisequence MRI of the brain was performed without contrast. FINDINGS: There is no evidence for intracranial hemorrhage, mass effect, mass lesions, edema, or extra-axial fl uid collections. There are no signs of acute infarction for technique. The diffusion portion is unre markable. Slight degree of brain atrophy is seen. Slight periventricular white matter changes are see n nonspecific mostly consistent with chronic small vessel ischemic changes. The examination is slight ly limited due to motion artifact. CONCLUSION: Chronic atrophic and small vessel ischemic changes without any evidence for acute hem orrhage or mass effect. Smith Boateng MD on August 25, 2016 at 20:03 Board Certified Radiologist. This report was verified electronically.
[2016-08-25] MEDS: MELATONIN 5 MG TAB PO SCH (21:07)
[2016-08-25] MEDS: QUEtiapine FUMARATE 25 MG TAB PO SCH (21:07)
[2016-08-25] MEDS: INSULIN DETEMIR 100 UNITS/ML VIAL SQ SCH (21:11)
[2016-08-25] MEDS: ACETAMINOPHEN 500 MG CPLT PO PRN (21:15)
[2016-08-26] VITALS (7 sets, daily range): BP systolic 93–128; BP diastolic 54–81; PULSE 81–92; RESP 18–20; TEMP 98.4–100; O2SAT 92–94
[2016-08-26] MEDS: CHLORHEXIDINE GLUCONATE 2 % 1 PACK (2 CLOTHS) TOP SCH (04:00)
[2016-08-26] MEDS: HYDROCORTISONE 1% CREAM 30 GM TOPICAL SCH ×3 (04:36→22:18)
[2016-08-26] MEDS: LEVOTHYROXINE SODIUM 150 MCG TAB PO SCH ×2 (05:48→05:50)
[2016-08-26] MEDS: HEPARIN SODIUM - SQ 10,000 UNITS/ML VIAL SQ SCH ×3 (05:48→22:17)
[2016-08-26] MEDS: ISOSORBIDE DINITRATE 5 MG TAB PO SCH ×3 (05:49→22:13)
[2016-08-26] MEDS: INSULIN ASPART SUPPLEMENTAL SCALE SQ SCH ×4 (05:49→22:20)
[2016-08-26] MEDS: SODIUM CHLORIDE 0.9% FLUSH 5 ML FLUSH IV FLUSH SCH ×2 (08:22→22:19)
[2016-08-26] MEDS: METHADONE HCL 10 MG TAB PO SCH ×2 (08:23→22:17)
[2016-08-26] MEDS: LIOTHYRONINE SODIUM 5 MCG TAB PO SCH (08:23)
[2016-08-26] MEDS: LACTOBACILLUS ACIDOPHILUS TAB PO SCH ×3 (08:23→17:11)
[2016-08-26] MEDS: GABAPENTIN 300 MG CAP PO SCH ×3 (08:23→17:11)
[2016-08-26] MEDS: BUMETANIDE 1 MG TAB PO SCH (08:23)
[2016-08-26] MEDS: VALSARTAN 40 MG TAB PO SCH (08:23)
[2016-08-26] MEDS: VALPROIC ACID 250 MG CAP PO SCH ×2 (08:24→22:16)
[2016-08-26] MEDS: MUPIROCIN 2% OINT 22 GM TUBE TOPICAL SCH ×2 (08:24→22:18)
[2016-08-26] MEDS: VANCOMYCIN 500 MG VIAL (FOR ORAL USE ONLY) PO SCH ×4 (08:24→22:17)
[2016-08-26] MEDS: clonazePAM 0.5 MG TAB PO PRN (12:16)
--- NOTE | 2016-08-26 14:19 | HHI.HCPN ---
Reason for visit a. To assist with evaluation and management of symptoms including: delirium , pain, lethargy. b. To assist medical decision maker(s) with: better understanding of current medical conditions; weighing benefits/burdens of medical treatment options; making medical treatment decisions. . Subjective/Interval History Patient seen and examined in room. No family at bedside. Patient is asleep upon my entering, she awakens intermittently, does not track or answer questions for me. She moans when awake. She remains on methadone low-dose scheduled (2.5mg every 12 hours ATC) and on the low-dose quetiapine (6.25mg q HS). When asked if she has pain she says no. Tmax 101. Vital signs stable. Bowel and bladder function adequate. Minimal oral intake. MRI brain revealed chronic atrophic and small vessel ischemic changes without any evidence of acute hemorrhage or mass effect. . Family/friend interactions Daughter is working this week, won't be visiting until after work. I previously provided my cell number should she have any questions or concerns. . Advance Directives Living Will: Never completed Health Care Surrogate: Never completed Durable Power of Secondary History Teacher: Completed, but not made available Advance Directive Specifics Date completed: Family reports there is a completed POA document -- not available to us at this time. Unknown date. . Health Care Surrogate(s): is reportedly the health care POA. Even if there is no documented designation of health care POA or surrogate, he would serve as proxy. Spoke with in person on 08/12/16. He tells me how he knows nothing about health care and is fine if patient's daughter Blanche serves as proxy. If does not want to serve, it would fall to both son and daughter. Patient 's son also defers decision-making to patient's daughter Blanche, as he is often out of the country and unavailable. . Documented care wishes: No documented wishes of patient's expressed health care goals/preferences. . Significant change in goals: FULL CODE. Continue aggressive care. . Objective Vital Signs Date Time Temp Pulse Resp B/P Pulse Ox O2 Delivery O2 Flow Rate FiO2 08/26/16 10:15 Room Air 08/26/16 08:02 98.7 81 20 113/81 92 08/26/16 04:00 98.4 84 20 109/57 93 08/26/16 00:00 100.0 91 18 106/62 94 08/25/16 20:00 Nasal Cannula 2.00 08/25/16 20:00 101.0 97 20 135/61 96 08/25/16 16:00 100.3 100 18 130/58 99 Intake & Output 08/26/16 08/26/16 07:00 19:00 Intake Total 120 ml Output Total 550 ml Balance -430 ml Intake Oral 120 ml Output Urine Total 550 ml # Bowel Movements 1 Physical Exam CONSTITUTIONAL/GENERAL: This is an adequately nourished patient. SKIN: No jaundice. Ecchymoses on upper extremities. Bilateral LE wound dressings in plcae, wounds not visualized by me today. Dry, gangrenous changes are noted on the digits of both feet. There is a rash on the left side of the face and neck that seems to be healing. CARDIOVASCULAR: Regular rate and rhythm without gallops, or rubs. 2/6 systolic murmur heard. RESPIRATORY/CHEST: Symmetric, unlabored respirations. Clear to auscultation. Breath sounds equal bilaterally. No wheezes, rales, or rhonchi. GASTROINTESTINAL: Abdomen soft, non-tender, nondistended. No hepato-splenomegaly , or palpable masses. No guarding. Bowel sounds present. MUSCULOSKELETAL: Both lower extremities are edematous. Dressing was not removed from her wounds. Dry gangrenous changes to the digits of both feet. Thick-appearing heel eschars. NEUROLOGICAL: Moves all extremities. Lethargic, confused. Awakens, does not track or speak to me today. PSYCHIATRIC: Confused, lethargic, delirious. . Diagnostic Tests Laboratory Laboratory Tests Test 08/25/16 17:10 Prothrombin Time 11.6 SEC (9.8-11.6) Prothromb Time International 1.0 RATIO Ratio Activated Partial 26.7 SEC Thromboplast Time (24.3-30.1) Valproic Acid (Depakene) Level 20 MCG/ML (50-100) Result Diagram: 08/22/16 0429 08/23/16 1025 Imaging Last Impressions Brain MRI 08/25/16 0000 Signed Impressions: Service Date/Time: Thursday, August 25, 2016 19:01 - CONCLUSION: Chronic atrophic and small vessel ischemic changes without any evidence for acute hemorrhage or mass effect. Smith Boateng MD Chest X-Ray 3/28/17 0000 Signed Impressions: Service Date/Time: Friday, August 19, 2016 18:46 - CONCLUSION: 1. Bibasilar streakiness consistent with atelectasis and/or infiltrates. 2. Cardiomegaly. 3. Poor inspiratory result. Shamar Banuelos MD Upper Extremity Ultrasound 07/28/16 0000 Signed Impressions: Service Date/Time: Thursday, July 28, 2016 14:34 - CONCLUSION: No DVT is identified within the right upper extremity. Alfredo Eng MD Head CT 07/19/16 0000 Signed Impressions: Service Date/Time: Tuesday, July 19, 2016 09:58 - CONCLUSION: No acute intracranial findings. João Otoole MD Foot X-Ray 07/16/16 0000 Signed Impressions: Service Date/Time: Saturday, July 16, 2016 17:34 - CONCLUSION: 1. Nonspecific soft tissue swelling. No acute bone destruction demonstrated. 2. Mild talonavicular and navicular/cuneiform degenerative changes. 3. Second through fifth hammertoe. 4. Moderate-sized heel spur. Alfredo Sneed MD . Procedures 07/31/2016 Excision and debridement of both legs, extensive necrotic wounds approximately 30 x 25 cm area on each side, total 1000 to 1100 cm square, down to the subcutaneous tissue and tendon on the left side. 08/08/2016 1. Selective right lower extremity arteriogram. 2. Balloon angioplasty with a 4 mm x 2200 mm and then a 5 x 200 mm Medtronic angioplasty balloon of the right superficial femoral and proximal popliteal artery. Note that patient had these additional procedures on prior admissions: * Bilateral lower extremity wound debridements 05/15/16 * Bilateral LE Debridements and Left SFA angioplasty on 06/23/16 . Assessment and Plan Disease Oriented Problem List: (1) complicated/infected/necrotic foot and leg wounds (2) PVD (peripheral vascular disease) Comment: With infected/nonhealing wounds and gangrene (3) DM (diabetes mellitus), type 2, uncontrolled, periph vascular complic (4) CHF (congestive heart failure) (5) Hypertension (6) Cellulitis of left lower extremity (7) Delirium due to another medical condition (8) VT (ventricular tachycardia) (9) Ulcer of heel and midfoot (10) Hypothyroidism (11) Anemia (12) Urinary tract infection Comment: Cx of 08/11/16 growing out E coli ESBL . Symptom Scale: (1) Pain 0-10 Scale: 0 Comment: Denies pain when asked today, appears painful or at least uncomfortable when awake. There is frequent moaning and calling out suggesting the pain is quite severe but at times hollering appears more due to delirium than to pain.. Pain most likely due to ischemia and the wounds themselves. May be a component of neuropathic pain from the diabetes - on low dose and Seroquel. Also on gabapentin. . (2) Confusion 0-10 Scale: Unable to quantify Comment: Confusion is probably multifactorial. Patient apparently was cognitively sharp up until about 05/13/2016. Has had intermittent confusion since including hallucinations and disorientation. Now with known UTI which may be contributing. . (3) Lethargy 0-10 Scale: Unable to quantify (4) Delirium 0-10 Scale: Unable to quantify Comment: probably multifactorial, daughter feels this is worsening in the past 5 days. Pertinent Non-Medical Issues Psychosocial: Psychosocial support from and daughter (lives locally). Son in [place] is very involved, but is often working out of the country. Spiritual: Nondenominational. Had been a member of [employer]. Legal: Family reports there is a completed POA for finance and health care. and patient's son are OK yielding decision making to patient's daughter. Ethical issues impacting care: Patient is currently incapacitated due to delirium. . Important Contacts * Alfredo Lemos (spouse) [phone] * Kalpesh (son) [phone] * Blanche (daughter) [phone] . Prognosis The patient has severe peripheral vascular disease and accompanying refractory lower extremity wounds. Wounds have worsened in spite of aggressive care beginning in March 2016. She has undergone re-vascularization procedures on both lower extremities since May. Wounds now involve tendon structures in the feet. Patient might be able to benefit and achieve healing with hyperbaric oxygen. Otherwise she will likely need bilateral below the knee amputations. Prognosis greatly depends on success of managing these infections/wounds. While these infections/wounds continue, she remains at risk for sepsis. Based on the is consultant's notes, it appears unlikely regardless of treatment course that she will be ambulating independently in the future. Her success in any type of rehabilitation will also depend on her ability to clear cognitively, improve her nutritional status, and have adequate pain relief without accompanying oversedation. . Code Status: Full Code Plan * Decision making: Patient is currently incapacitated to make her own health care decisions. She is confused and it is unclear if/when she will regain capacity. Although her husbandJohnis technically her health care decision- maker, he and the patient's son have both ceded decision-making to the patient' s daughter Blanche. * CODE STATUS: Full code discussed with daughter 08/25/16 - considering a family meeting to discuss with step-father and brother. She is considering NO CODE, not sure her brother will agree (stating he is not medical). * Goals of medical treatment: At this time goals are aggressive. 08/25/16: Daughter Blanche reported that she and her brother and her stepfather are all to a point where they are feeling that the patient may be better off having the amputations completed "to give her a chance at recovery," rather than to continue down this road where the patient seems to be getting weaker, more confused, and is eating minimal calories? Understands she may require PEG tube. Wants to proceed with hyperbaric treatment (Numobag payment will be made once invoice received and then to be delivered). Considering CODE status. Offered family meeting. * Confusion: Her confusion/delirium is likely multifactorial; we will continue the low-dose quetiapine for now. Discussed with Dr. Rodriguez she is considering repeat EEG, MRI and spinal tap. 08/26 - MRI negative. * Pain: Pain appears mostly secondary to ischemic pain and wound pain in the lower extremities. She may also have some lower extremity pain secondary to diabetic neuropathy (on Gabapentin). Patient is unable to quantify or qualify her pain adequately due to her cognitive challenges. She apparently had a negative reaction to fentanyl. She became too sedated on higher dose gabapentin. Remains on low dose Methadone 2.5mg PO every 12 hours ATC. . Will leave prn hydromorphone in place for breakthrough (has only had 2 doses in the past 24 hours). When patient is screaming, it is understandably difficult for nursing staff to differentiate between pain and delirium. * Wounds: The family has stated that the wounds began on the abdomen and buttock which make it less likely that these wounds began because of PVD. Also , vascular surgery feels that the wounds are out of proportion to the level of vascular disease. Dr. White is wondering about an underlying autoimmune disease to explain wounds that appear out of proportion to her vascular disease.....work-up ordered 08/20/16. * Disposition: Unclear at this time. Concern for continued decline. May need PEG tube as patient is now only eating bites and sips. * Palliative care will continue to follow the patient to assist with symptom management and to further clarify goals of medical treatment as the clinical course evolves. . Attestation To help prompt me to consider important information that might be impacting today's encounter and assessment, information from prior notes written by myself or my colleagues may have been "brought forward" into today's note. My signature on this note, however, is an attestation that I personally performed the exam, history, and/or decision-making noted today, and, unless otherwise indicated, the interactions with patient, family, and staff as well as the review of records all occurred today. I also attest that the listed assessment and stated plan reflect my best clinical judgment today based on the combination of historical information, prior notes, and today's exam/ interactions. When time spent is documented, it refers only to time spent today by the signer, or if indicated, combined time spent today by collaborating physician/nurse practitioner. CORTNEY ARCEO Aug 26, 2016 14:19
--- NOTE | 2016-08-26 17:09 | HHI.PR ---
Subjective Remarks Follow up for lower ext gangrene, PVD, wound, severe neuropathic pain, C. Diff. patient remains somewhat confused and screams episodically. No fever, chills. Friend is at bedside. Objective Vitals Vital Signs Date Time Temp Pulse Resp B/P Pulse Ox O2 Delivery O2 Flow Rate FiO2 08/26/16 12:02 98.7 84 20 128/64 92 08/26/16 10:15 Room Air 08/26/16 08:02 98.7 81 20 113/81 92 08/26/16 04:00 98.4 84 20 109/57 93 08/26/16 00:00 100.0 91 18 106/62 94 08/25/16 20:00 Nasal Cannula 2.00 08/25/16 20:00 101.0 97 20 135/61 96 I/O 08/25/16 08/25/16 08/25/16 08/26/16 08/26/16 08/26/16 07:00 15:00 23:00 07:00 15:00 23:00 Intake Total 50 ml 120 ml 120 ml Output Total 550 ml 1000 ml 400 ml 150 ml Balance -500 ml -880 ml -400 ml -30 ml Intake Oral 50 ml 120 ml 120 ml Output Urine Total 550 ml 1000 ml 400 ml 150 ml # Bowel Movements 1 3 0 1 Result Diagram: 08/22/16 0429 08/23/16 1025 Imaging Last Impressions Brain MRI 08/25/16 0000 Signed Impressions: Service Date/Time: Thursday, August 25, 2016 19:01 - CONCLUSION: Chronic atrophic and small vessel ischemic changes without any evidence for acute hemorrhage or mass effect. Smith Boateng MD Chest X-Ray 08/19/16 0000 Signed Impressions: Service Date/Time: Friday, August 19, 2016 18:46 - CONCLUSION: 1. Bibasilar streakiness consistent with atelectasis and/or infiltrates. 2. Cardiomegaly. 3. Poor inspiratory result. Shamar Banuelos MD Upper Extremity Ultrasound 07/28/16 0000 Signed Impressions: Service Date/Time: Thursday, July 28, 2016 14:34 - CONCLUSION: No DVT is identified within the right upper extremity. Alfredo Eng MD Head CT 07/19/16 0000 Signed Impressions: Service Date/Time: Tuesday, July 19, 2016 09:58 - CONCLUSION: No acute intracranial findings. João Otoole MD Foot X-Ray 07/16/16 0000 Signed Impressions: Service Date/Time: Saturday, July 16, 2016 17:34 - CONCLUSION: 1. Nonspecific soft tissue swelling. No acute bone destruction demonstrated. 2. Mild talonavicular and navicular/cuneiform degenerative changes. 3. Second through fifth hammertoe. 4. Moderate-sized heel spur. Alfredo Sneed MD Objective Remarks GENERAL: Alert, Screams in pain episodically. SKIN: Warm and dry. HEAD: Normocephalic. EYES: No scleral icterus. No injection or drainage. NECK: Supple, trachea midline. No JVD or lymphadenopathy. CARDIOVASCULAR: Regular rate and rhythm without murmurs, gallops, or rubs. RESPIRATORY: Breath sounds equal bilaterally. No accessory muscle use. GASTROINTESTINAL: Abdomen soft, non-tender, nondistended. MUSCULOSKELETAL: Left foot has multiple toes with gangrenous changes. Right foot with digit 3 gangrenous changes. Both lower ext above ankle wrapped in dressing. BACK: Nontender without obvious deformity. No CVA tenderness. Procedures 08/08/2016 PROCEDURE 1. Selective right lower extremity arteriogram. 2. Balloon angioplasty with a 4 mm x 2200 mm and then a 5 x 200 mm Serstechtronic angioplasty balloon of the right superficial femoral and proximal popliteal artery. 07/31/2016 Excision and debridement of both legs, extensive necrotic wounds approximately 30 x 25 cm area on each side, total 1000 to 1100 cm square, down to the subcutaneous tissue and tendon on the left side. A/P Problem List: (1) Cellulitis of left lower extremity ICD Code: L03.116 Status: Acute (2) Delirium due to another medical condition ICD Code: F05 Status: Acute (3) Neuropathic pain ICD Code: M79.2 Status: Acute Assessment and Plan Pt. is 61-year-old female, with multiple admissions, with history of cellulitis of legs, severe PVD, diabetes and cardiomyopathy EF of 30% was at the rehabilitation facility when she became more altered lethargic and hypoxic. Rapid response team was called and transferred patient to ICU. In the ICU patient remains confused and lethargic responsive to pain with a stable blood pressure and saturation of 100% on 40% face mask. Patient has improved and was transferred to regular medical/ surgical unit. During this hospitalization, plastic surgery, podiatry, vascular surgery followed this patient. Both podiatry and plastic surgery recommended hyperbaric treatments and future skin graft if wound beds are healed. Vascular surgery recommended against amputation and stated that her leg blood supply is adequate. Unfortunately, hyperbaric treatments can only be done in the outpatient setting if patient can go home. It cannot be done while in-patient or from SNF due to financial constraints. Our attempt to transfer patient to [facility] was not successful. - Chronic lower ext wound - Peripheral vascular disease - Severe neuropathic pain - Plastic surgery signed off. They recommended hyperbaric chamber and future skin graft. - May consult again when Dr. Pepe is available. - Continue [place], Dilaudid PRN for pain. - Gabapentin 600mg TID. - Continue low dose Seroquel, Methadone per Palliative care. - Since hyperbaric tx is not a viable option and patient cannot be discharged home, we looked into alternatives. 08/21/2016 - I discussed with chief creative officer (Dr. Altman) regarding an FDA approved topical O2 therapy - Numobag. - Numobag was developed by [employer] and has been used in the and civilian cases successfully. - I discussed with patient's daughter (Tanisha) and also with the company ( [employer]). - We will initiate the process of obtaining numobag and starting topical O2 therapy while patient is in the hospital. - If Patient improves enough to be able to go home or SNF, we can continue Numobag. - Both Dr. Altman (CAPTAIN ASSISTANT) and Nurse curriculum development manager on the floor agreed with our plan to initiate Numobag. - C. Diff colitis - ID following. All abx discontinued and patient is currently on Vancomycin PO. - acute encephalopathy with Hx of seizure activity - continue Valproic acid 250mg Q12hrs. Neurology reconsulted. MRI brain negative for any acute findings. - Left neck rash - could be contact dermatitis- improving - Continue topic abx, steroid. - UTI - Microbiology growing ESBL - Received Doxycycline -Anxiety, acute psychosis. - Received Zyprexa. If needed, we can use Zyprexa or Geodon. -Diabetes mellitus - Continue Levemir 5 units QHS and sliding scale insulin. Monitor for hypoglycemia. -Hypothyroidism - continue levothyroxine 150 g daily. -Hypertension - continue Valsartan 80mg QHS. -Cardiomyopathy - Continue Carvedilol 25mg BID, Valsartan, Isosorbide. -Hx of seizure activity - continue Valproic acid 250mg Q12hrs. -Anemia hgb 7.0 on 08/18/2016. - recheck H&H --> 6.9. S/P two units of PRBCs. Hgb 8.4 on 08/22/2016. - Probable JAYLAN - Anasarca - Urine output is very low. Patient's last Albumin 1.3 which is likely the reason for anasarca. - Nephrology following. Received albumin infusion as well as bumex. Currently on Bumex 1mg Qday. - If oral intake does not improve, alternative nutrition should be addressed. Full code. Heparin SQ. Patient was seen again this afternoon around 6PM and discussed with patient's daughter, Tanisha at length. Rx for numobag was sent on 08/25/2016 and patient's family paid for the bags. [employer] will ship the bags soon. I will discuss with Dr. Aquino to possibly do debridement prior to starting numobag treatments. If we see evidence of improvement, patient could potentially go home and continue numobag treatments. Devi Alejo DO Aug 26, 2016 17:09
[2016-08-26] MEDS ORDERED: diphenhydrAMINE HCL 25 MG CAP PO ONE (22:00)
[2016-08-26] MEDS: ACETAMINOPHEN 500 MG CPLT PO PRN (22:13)
[2016-08-26] MEDS: MELATONIN 5 MG TAB PO SCH (22:15)
[2016-08-26] MEDS: QUEtiapine FUMARATE 25 MG TAB PO SCH (22:15)
[2016-08-26] MEDS: INSULIN DETEMIR 100 UNITS/ML VIAL SQ SCH (22:19)
[2016-08-27] MEDS: CHLORHEXIDINE GLUCONATE 2 % 1 PACK (2 CLOTHS) TOP SCH (04:00)
[2016-08-27] MEDS: HYDROCORTISONE 1% CREAM 30 GM TOPICAL SCH ×3 (04:01→23:22)
[2016-08-27 04:15] VITALS: BP 105/55; PULSE 81; RESP 18; TEMP 99.2; O2SAT 93
[2016-08-27] MEDS: ISOSORBIDE DINITRATE 5 MG TAB PO SCH ×3 (06:33→23:26)
[2016-08-27] MEDS: LEVOTHYROXINE SODIUM 150 MCG TAB PO SCH (06:33)
[2016-08-27] MEDS: INSULIN ASPART SUPPLEMENTAL SCALE SQ SCH ×4 (06:34→21:00)
[2016-08-27] MEDS: HEPARIN SODIUM - SQ 10,000 UNITS/ML VIAL SQ SCH ×3 (06:34→23:26)
[2016-08-27 08:10] VITALS: BP 91/48; PULSE 76; RESP 17; TEMP 99.8; O2SAT 98
[2016-08-27] MEDS: VALSARTAN 40 MG TAB PO SCH (09:00)
[2016-08-27] MEDS: SODIUM CHLORIDE 0.9% FLUSH 5 ML FLUSH IV FLUSH SCH ×2 (11:54→23:23)
[2016-08-27] MEDS: LIOTHYRONINE SODIUM 5 MCG TAB PO SCH (11:55)
[2016-08-27] MEDS: VALPROIC ACID 250 MG CAP PO SCH ×2 (11:55→23:23)
[2016-08-27] MEDS: BUMETANIDE 1 MG TAB PO SCH (11:55)
[2016-08-27] MEDS: METHADONE HCL 10 MG TAB PO SCH ×2 (11:57→23:24)
[2016-08-27] MEDS: LACTOBACILLUS ACIDOPHILUS TAB PO SCH ×3 (11:57→18:38)
[2016-08-27] MEDS: GABAPENTIN 300 MG CAP PO SCH ×3 (11:57→18:39)
[2016-08-27] MEDS: VANCOMYCIN 500 MG VIAL (FOR ORAL USE ONLY) PO SCH ×4 (11:58→23:24)
[2016-08-27] MEDS: MUPIROCIN 2% OINT 22 GM TUBE TOPICAL SCH ×2 (11:58→23:26)
[2016-08-27 12:08] VITALS: BP 101/55; PULSE 75; RESP 16; TEMP 98.9; O2SAT 97
--- NOTE | 2016-08-27 12:34 | PD.WOU.PN ---
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 has severe necrotic gangrenous changes of the right lower extremity and Achilles tendon that will not respond to either hyperbaric or topical oxygen. Patient also has gangrenous changes of the toes bilaterally. Patient has a necrotic anterior tibialis tendon on the left. Patient is to start topical oxygen therapy in the next day or so. However I feel that she would most benefit from bilateral amputations. She has severe ischemic pain. Patient seen with Dr. Alejo. Problem Qualifiers (1) Diabetic foot ulcer: Qualified Code: E11.621 - Diabetic ulcer of left midfoot associated with type 2 diabetes mellitus, with necrosis of muscle (2) Diabetes mellitus with peripheral angiopathy with gangrene: Qualified Code: E11.52 - Type 2 diabetes mellitus with diabetic peripheral angiopathy and gangrene, with long-term current use of insulin Jonathan qAuino DPM Aug 27, 2016 12:34
[2016-08-27 16:10] VITALS: BP 111/57; PULSE 86; RESP 18; TEMP 99; O2SAT 96
--- NOTE | 2016-08-27 17:36 | HHI.PR ---
Subjective Remarks Follow up for lower ext gangrene, PVD, wound, severe neuropathic pain, C. Diff. Ms. Lemos is somewhat calmer today than yesterday. Scow Hand Dr. Aquino and I saw patient today that. No fever or chills. Objective Vitals Vital Signs Date Time Temp Pulse Resp B/P Pulse Ox O2 Delivery O2 Flow Rate FiO2 08/27/16 16:10 99.0 86 18 111/57 96 08/27/16 13:00 20 08/27/16 12:08 98.9 75 16 101/55 97 08/27/16 08:10 99.8 76 17 91/48 98 08/27/16 04:15 99.2 81 18 105/55 93 08/26/16 23:22 99.9 90 18 93/55 93 08/26/16 20:00 Nasal Cannula 2.00 08/26/16 19:50 99.5 92 18 113/57 93 I/O 08/26/16 08/26/16 08/26/16 08/27/16 08/27/16 08/27/16 07:00 15:00 23:00 07:00 15:00 23:00 Intake Total 120 ml 200 ml 200 ml 120 ml Output Total 150 ml 100 ml 100 ml 450 ml Balance -30 ml 100 ml 100 ml -330 ml Intake Oral 120 ml 200 ml 200 ml 120 ml Output Urine Total 150 ml 100 ml 100 ml 450 ml # Bowel Movements 1 0 0 1 Result Diagram: 08/23/16 1025 Imaging Last Impressions Brain MRI 08/25/16 0000 Signed Impressions: Service Date/Time: Thursday, August 25, 2016 19:01 - CONCLUSION: Chronic atrophic and small vessel ischemic changes without any evidence for acute hemorrhage or mass effect. Smith Boateng MD Chest X-Ray 08/19/16 0000 Signed Impressions: Service Date/Time: Friday, August 19, 2016 18:46 - CONCLUSION: 1. Bibasilar streakiness consistent with atelectasis and/or infiltrates. 2. Cardiomegaly. 3. Poor inspiratory result. Shamar Banuelos MD Upper Extremity Ultrasound 07/28/16 0000 Signed Impressions: Service Date/Time: Thursday, July 28, 2016 14:34 - CONCLUSION: No DVT is identified within the right upper extremity. Alfredo Eng MD Head CT 07/19/16 0000 Signed Impressions: Service Date/Time: Tuesday, July 19, 2016 09:58 - CONCLUSION: No acute intracranial findings. João Otoole MD Foot X-Ray 07/16/16 0000 Signed Impressions: Service Date/Time: Saturday, July 16, 2016 17:34 - CONCLUSION: 1. Nonspecific soft tissue swelling. No acute bone destruction demonstrated. 2. Mild talonavicular and navicular/cuneiform degenerative changes. 3. Second through fifth hammertoe. 4. Moderate-sized heel spur. Alfredo Sneed MD Objective Remarks GENERAL: Alert, Screams in pain episodically. SKIN: Warm and dry. HEAD: Normocephalic. EYES: No scleral icterus. No injection or drainage. NECK: Supple, trachea midline. No JVD or lymphadenopathy. CARDIOVASCULAR: Regular rate and rhythm without murmurs, gallops, or rubs. RESPIRATORY: Breath sounds equal bilaterally. No accessory muscle use. GASTROINTESTINAL: Abdomen soft, non-tender, nondistended. MUSCULOSKELETAL: Left foot has multiple toes with gangrenous changes. Right foot with digit 3 gangrenous changes. Both lower ext above ankle wrapped in dressing. BACK: Nontender without obvious deformity. No CVA tenderness. Procedures 08/08/2016 PROCEDURE 1. Selective right lower extremity arteriogram. 2. Balloon angioplasty with a 4 mm x 2200 mm and then a 5 x 200 mm Medtronic angioplasty balloon of the right superficial femoral and proximal popliteal artery. 07/31/2016 Excision and debridement of both legs, extensive necrotic wounds approximately 30 x 25 cm area on each side, total 1000 to 1100 cm square, down to the subcutaneous tissue and tendon on the left side. A/P Problem List: (1) Cellulitis of left lower extremity ICD Code: L03.116 Status: Acute (2) Delirium due to another medical condition ICD Code: F05 Status: Acute (3) Neuropathic pain ICD Code: M79.2 Status: Acute Assessment and Plan Pt. is 61-year-old female, with multiple admissions, with history of cellulitis of legs, severe PVD, diabetes and cardiomyopathy EF of 30% was at the rehabilitation facility when she became more altered lethargic and hypoxic. Rapid response team was called and transferred patient to ICU. In the ICU patient remains confused and lethargic responsive to pain with a stable blood pressure and saturation of 100% on 40% face mask. Patient has improved and was transferred to regular medical/ surgical unit. During this hospitalization, plastic surgery, podiatry, vascular surgery followed this patient. Both podiatry and plastic surgery recommended hyperbaric treatments and future skin graft if wound beds are healed. Vascular surgery recommended against amputation and stated that her leg blood supply is adequate. Unfortunately, hyperbaric treatments can only be done in the outpatient setting if patient can go home. It cannot be done while in-patient or from SNF due to financial constraints. Our attempt to transfer patient to [facility] was not successful. - Chronic lower ext wound - Peripheral vascular disease - Severe neuropathic pain - Plastic surgery signed off. They recommended hyperbaric chamber and future skin graft. - Along with Dr. Aquino (Podiatry, wound care), I examined patient's lower extremities today. Left lower ext appears to be in better condition. RLE has necrotic tissues. - I have discussed with Vascular surgeon Dr. White today again. We will consult protection consultant plastic surgery to see if any additional debridement can be done. - Any additional debridement, if indicated, would be beneficial before we start Topical oxygen therapy for lower ext wounds. - Continue [place], Dilaudid PRN for pain. - Gabapentin 600mg TID. - Continue low dose Seroquel, Methadone per Palliative care. - Discussed with [facility] physician on 08/27/2016. I agree that we should start looking at a LTAC placement option. - Since hyperbaric tx is not a viable option and patient cannot be discharged home, we looked into alternatives. 08/21/2016 - I discussed with chief sales officer (Dr. Altman) regarding an FDA approved topical O2 therapy - Numobag. - Numobag was developed by [employer] and has been used in the and civilian cases successfully. - I discussed with patient's daughter (Tanisha) and also with the company ( [employer]). - We will initiate the process of obtaining numobag and starting topical O2 therapy while patient is in the hospital. - If Patient improves enough to be able to go home or SNF, we can continue Numobag. - Both Dr. Altman ([employer]) and Nurse sow manager on the floor agreed with our plan to initiate Numobag. - C. Diff colitis - ID following. All abx discontinued and patient is currently on Vancomycin PO. - acute encephalopathy with Hx of seizure activity - continue Valproic acid 250mg Q12hrs. Neurology reconsulted. MRI brain negative for any acute findings. - Left neck rash - could be contact dermatitis- improving - Continue topic abx, steroid. - UTI - Microbiology growing ESBL - Received Doxycycline -Anxiety, acute psychosis. - Received Zyprexa. If needed, we can use Zyprexa or Geodon. -Diabetes mellitus - Continue Levemir 5 units QHS and sliding scale insulin. Monitor for hypoglycemia. -Hypothyroidism - continue levothyroxine 150 g daily. -Hypertension - continue Valsartan 80mg QHS. -Cardiomyopathy - Continue Carvedilol 25mg BID, Valsartan, Isosorbide. -Hx of seizure activity - continue Valproic acid 250mg Q12hrs. -Anemia hgb 7.0 on 08/18/2016. - recheck H&H --> 6.9. S/P two units of PRBCs. Hgb 8.4 on 08/22/2016. - Probable JAYLAN - Anasarca - Urine output is very low. Patient's last Albumin 1.3 which is likely the reason for anasarca. - Nephrology following. Received albumin infusion as well as bumex. Currently on Bumex 1mg Qday. - If oral intake does not improve, alternative nutrition should be addressed. Full code. Heparin SQ. I saw patient again and discussed with patient's daughter this PM. Devi Alejo DO Aug 27, 2016 17:36
[2016-08-27] MEDS: clonazePAM 0.5 MG TAB PO PRN (18:39)
[2016-08-27 20:00] VITALS: BP 133/90; PULSE 90; RESP 20; TEMP 99; O2SAT 95
[2016-08-27] MEDS: MELATONIN 5 MG TAB PO SCH (23:24)
[2016-08-27] MEDS: QUEtiapine FUMARATE 25 MG TAB PO SCH (23:24)
[2016-08-27] MEDS: INSULIN DETEMIR 100 UNITS/ML VIAL SQ SCH (23:25)
[2016-08-28] VITALS (7 sets, daily range): BP systolic 104–130; BP diastolic 54–87; PULSE 78–93; RESP 18–22; TEMP 98.7–100; O2SAT 92–100
[2016-08-28] MEDS: CHLORHEXIDINE GLUCONATE 2 % 1 PACK (2 CLOTHS) TOP SCH (04:00)
[2016-08-28] MEDS: HYDROCORTISONE 1% CREAM 30 GM TOPICAL SCH ×3 (04:45→20:00)
[2016-08-28] MEDS: LEVOTHYROXINE SODIUM 150 MCG TAB PO SCH (06:16)
[2016-08-28] MEDS: ISOSORBIDE DINITRATE 5 MG TAB PO SCH ×3 (06:16→21:26)
[2016-08-28] MEDS: INSULIN ASPART SUPPLEMENTAL SCALE SQ SCH ×4 (06:17→21:00)
[2016-08-28] MEDS: HEPARIN SODIUM - SQ 10,000 UNITS/ML VIAL SQ SCH ×2 (06:17→12:46)
--- NOTE | 2016-08-28 08:55 | MG ---
cc: CAMMY SHERIFF M.D. Lab No: [id number] Date: 08/28/2016 Age: 61 Sex: F Race: 1955 Room 1417. Follow-up EEG without hyperventilation and photic, she is too agitated, very confused but awake. Last EEG on 07/29 showed generalized slowing, showed encephalopathy. Repeat MRI shows chronic atrophy, small vessel disease, no acute findings. This is a 61-year-old woman with peripheral arterial disease, gangrene of the lower extremities, having confusion waxing and waning. MEDICATIONS Iron, Bumex, Diovan, Lactinex, Synthroid, heparin and some Depakote. DESCRIPTION OF RECORD Overall background slowing predominately of 3-4 Hz again seen. EKG does look sinus. Talking and moving about there is a lot of artifact but overall just some mild to moderate slowing seen. Hyperventilation and photic stimulation could not be performed. No evidence of any epileptiform features. IMPRESSION Moderate background slowing still consistent with encephalopathic process without any epileptiform features. Clinical correlation. MD TOBY Boss/MARY ANN /8:38 AM 8:48 AM
[2016-08-28] MEDS: LACTOBACILLUS ACIDOPHILUS TAB PO SCH ×3 (09:14→18:31)
[2016-08-28] MEDS: VALSARTAN 40 MG TAB PO SCH (09:16)
[2016-08-28] MEDS: GABAPENTIN 300 MG CAP PO SCH ×3 (09:16→18:32)
[2016-08-28] MEDS: LIOTHYRONINE SODIUM 5 MCG TAB PO SCH (09:16)
[2016-08-28] MEDS: BUMETANIDE 1 MG TAB PO SCH (09:16)
[2016-08-28] MEDS: VALPROIC ACID 250 MG CAP PO SCH ×2 (09:16→21:27)
[2016-08-28] MEDS: MUPIROCIN 2% OINT 22 GM TUBE TOPICAL SCH ×2 (09:16→21:00)
[2016-08-28] MEDS: METHADONE HCL 10 MG TAB PO SCH ×2 (09:16→21:26)
[2016-08-28] MEDS: VANCOMYCIN 500 MG VIAL (FOR ORAL USE ONLY) PO SCH ×4 (09:16→21:27)
[2016-08-28] MEDS: SODIUM CHLORIDE 0.9% FLUSH 5 ML FLUSH IV FLUSH SCH ×2 (09:23→21:00)
--- NOTE | 2016-08-28 16:49 | PD.PLAS.PN ---
Subjective Remarks Patient noncommunicative. Vital Signs Date Time Temp Pulse Resp B/P Pulse Ox O2 Delivery O2 Flow Rate FiO2 08/28/16 16:00 99.8 89 20 124/59 92 08/28/16 12:00 99.6 91 22 124/87 96 08/28/16 08:00 99.1 86 18 130/63 94 08/28/16 04:00 99.1 86 20 119/58 96 08/28/16 00:00 98.7 93 22 117/54 92 08/27/16 20:00 Nasal Cannula 2.00 08/27/16 20:00 99.0 90 20 133/90 95 I/O 08/27/16 08/27/16 08/27/16 08/28/16 08/28/16 08/28/16 07:00 15:00 23:00 07:00 15:00 23:00 Intake Total 200 ml 120 ml 0 ml 0 ml 240 ml Output Total 100 ml 450 ml 350 ml 225 ml 2000 ml Balance 100 ml -330 ml -350 ml -225 ml -1760 ml Intake Oral 200 ml 120 ml 0 ml 0 ml 240 ml Output Urine Total 100 ml 450 ml 350 ml 225 ml 2000 ml # Bowel Movements 0 1 0 1 1 Exam Findings The patient is examined with Dr. Pepe. Examination of the right lower extremity reveals progressive ischemia to the forefoot. There is also progressive necrosis to the posterior aspect of the leg. Examination of the left lower extremity reveals adequate perfusion. There is good granulation except for the postero-lateral aspect which does show some additional necrosis. The distal, nonnecrotic areas show adequate perfusion. Plan Impression: Dr. Pepe and I agree that the right leg is not salvageable. In addition, the chances of survival to the left leg are minimal, but with the good granulation tissue, attempt could be made to debride the necrotic areas and apply a wound VAC. This might help to prevent the need for amputation. Plan: Our recommendation is amputation of the right leg. In addition, we agree that limited debridement and attempt at wound VAC therapy might save the left leg. Grace Alfaro MD Aug 28, 2016 16:48
[2016-08-28] MEDS: INSULIN DETEMIR 100 UNITS/ML VIAL SQ SCH (21:00)
[2016-08-28] MEDS: MELATONIN 5 MG TAB PO SCH (21:26)
[2016-08-28] MEDS: QUEtiapine FUMARATE 25 MG TAB PO SCH (21:27)
--- NOTE | 2016-08-28 23:22 | HHI.PR ---
Subjective Remarks Follow up for lower ext gangrene, PVD, wound, severe neuropathic pain, C. Diff. Patient continues to have some confusion. Daughter is at bedside. Earlier I discussed with Dr. Alfaro and Dr. Pepe. Objective Vitals Vital Signs Date Time Temp Pulse Resp B/P Pulse Ox O2 Delivery O2 Flow Rate FiO2 08/28/16 20:00 100.0 93 20 104/57 100 08/28/16 16:00 99.8 89 20 124/59 92 08/28/16 12:00 99.6 91 22 124/87 96 08/28/16 08:00 99.1 86 18 130/63 94 08/28/16 08:00 Nasal Cannula 2.00 08/28/16 04:00 99.1 86 20 119/58 96 08/28/16 00:00 98.7 93 22 117/54 92 I/O 08/27/16 08/27/16 08/27/16 08/28/16 08/28/16 08/28/16 07:00 15:00 23:00 07:00 15:00 23:00 Intake Total 200 ml 120 ml 0 ml 0 ml 240 ml 120 ml Output Total 100 ml 450 ml 350 ml 225 ml 2000 ml 350 ml Balance 100 ml -330 ml -350 ml -225 ml -1760 ml -230 ml Intake Oral 200 ml 120 ml 0 ml 0 ml 240 ml 120 ml Output Urine Total 100 ml 450 ml 350 ml 225 ml 2000 ml 350 ml # Bowel Movements 0 1 0 1 1 Imaging Last Impressions Brain MRI 08/25/16 0000 Signed Impressions: Service Date/Time: Thursday, August 25, 2016 19:01 - CONCLUSION: Chronic atrophic and small vessel ischemic changes without any evidence for acute hemorrhage or mass effect. Smith Boateng MD Chest X-Ray 08/19/16 0000 Signed Impressions: Service Date/Time: Friday, August 19, 2016 18:46 - CONCLUSION: 1. Bibasilar streakiness consistent with atelectasis and/or infiltrates. 2. Cardiomegaly. 3. Poor inspiratory result. Shamar Banuelos MD Upper Extremity Ultrasound 07/28/16 0000 Signed Impressions: Service Date/Time: Thursday, July 28, 2016 14:34 - CONCLUSION: No DVT is identified within the right upper extremity. Alfredo Eng MD Head CT 2/25/17 0000 Signed Impressions: Service Date/Time: Tuesday, July 19, 2016 09:58 - CONCLUSION: No acute intracranial findings. João Otoole MD Foot X-Ray 07/16/16 0000 Signed Impressions: Service Date/Time: Saturday, July 16, 2016 17:34 - CONCLUSION: 1. Nonspecific soft tissue swelling. No acute bone destruction demonstrated. 2. Mild talonavicular and navicular/cuneiform degenerative changes. 3. Second through fifth hammertoe. 4. Moderate-sized heel spur. Alfredo Sneed MD Objective Remarks GENERAL: Alert, Screams in pain episodically. SKIN: Warm and dry. HEAD: Normocephalic. EYES: No scleral icterus. No injection or drainage. NECK: Supple, trachea midline. No JVD or lymphadenopathy. CARDIOVASCULAR: Regular rate and rhythm without murmurs, gallops, or rubs. RESPIRATORY: Breath sounds equal bilaterally. No accessory muscle use. GASTROINTESTINAL: Abdomen soft, non-tender, nondistended. MUSCULOSKELETAL: Left foot has multiple toes with gangrenous changes. Right foot with digit 3 gangrenous changes. Both lower ext above ankle wrapped in dressing. BACK: Nontender without obvious deformity. No CVA tenderness. Procedures 08/08/2016 PROCEDURE 1. Selective right lower extremity arteriogram. 2. Balloon angioplasty with a 4 mm x 2200 mm and then a 5 x 200 mm Medtronic angioplasty balloon of the right superficial femoral and proximal popliteal artery. 07/31/2016 Excision and debridement of both legs, extensive necrotic wounds approximately 30 x 25 cm area on each side, total 1000 to 1100 cm square, down to the subcutaneous tissue and tendon on the left side. A/P Problem List: (1) Cellulitis of left lower extremity ICD Code: L03.116 Status: Acute (2) Delirium due to another medical condition ICD Code: F05 Status: Acute (3) Neuropathic pain ICD Code: M79.2 Status: Acute Assessment and Plan Pt. is 61-year-old female, with multiple admissions, with history of cellulitis of legs, severe PVD, diabetes and cardiomyopathy EF of 30% was at the rehabilitation facility when she became more altered lethargic and hypoxic. Rapid response team was called and transferred patient to ICU. In the ICU patient remains confused and lethargic responsive to pain with a stable blood pressure and saturation of 100% on 40% face mask. Patient has improved and was transferred to regular medical/ surgical unit. During this hospitalization, plastic surgery, podiatry, vascular surgery followed this patient. Both podiatry and plastic surgery recommended hyperbaric treatments and future skin graft if wound beds are healed. Vascular surgery recommended against amputation and stated that her leg blood supply is adequate. Unfortunately, hyperbaric treatments can only be done in the outpatient setting if patient can go home. It cannot be done while in-patient or from SNF due to financial constraints. Our attempt to transfer patient to [facility] was not successful. - Chronic lower ext wound - Peripheral vascular disease - Severe neuropathic pain - Discussed with Plastic surgery again today (Dr. Alfaro and Dr. Peep). - Plastic surgery recommends right lower ext amputation. Will discuss with Dr. Bird. - Along with Dr. Aquino (Podiatry, wound care), I examined patient's lower extremities today. Left lower ext appears to be in better condition. RLE has necrotic tissues. - I have discussed with Vascular surgeon Dr. White today again. We will consult transfer station attendant plastic surgery to see if any additional debridement can be done. - Any additional debridement, if indicated, would be beneficial before we start Topical oxygen therapy for lower ext wounds. - Continue [place], Dilaudid PRN for pain. - Gabapentin 600mg TID. - Continue low dose Seroquel, Methadone per Palliative care. - Discussed with [facility] physician on 08/27/2016. I agree that we should start looking at a LTAC placement option. - Since hyperbaric tx is not a viable option and patient cannot be discharged home, we looked into alternatives. 08/21/2016 - I discussed with loan workout officer (Dr. Altman) regarding an FDA approved topical O2 therapy - Numobag. - Numobag was developed by [employer] and has been used in the and civilian cases successfully. - I discussed with patient's daughter (Tanisha) and also with the company ( [employer]). - We will initiate the process of obtaining numobag and starting topical O2 therapy while patient is in the hospital. - If Patient improves enough to be able to go home or SNF, we can continue Numobag. - Both Dr. Altman ([facility]) and Nurse design manager on the floor agreed with our plan to initiate Numobag. - C. Diff colitis - All abx discontinued and patient is currently on Vancomycin PO. - acute encephalopathy with Hx of seizure activity - continue Valproic acid 250mg Q12hrs. Neurology reconsulted. MRI brain negative for any acute findings. - Left neck rash - could be contact dermatitis- improving - Continue topical abx, steroid. - UTI - Microbiology growing ESBL - Received Doxycycline -Anxiety, acute psychosis. - Received Zyprexa. If needed, we can use Zyprexa or Geodon. -Diabetes mellitus - Continue Levemir 5 units QHS and sliding scale insulin. Monitor for hypoglycemia. -Hypothyroidism - continue levothyroxine 150 g daily. -Hypertension - continue Valsartan 80mg QHS. -Cardiomyopathy - Continue Carvedilol 25mg BID, Valsartan, Isosorbide. -Hx of seizure activity - continue Valproic acid 250mg Q12hrs. -Anemia hgb 7.0 on 08/18/2016. - recheck H&H --> 6.9. S/P two units of PRBCs. Hgb 8.4 on 08/22/2016. - Probable JAYLAN - Anasarca - Urine output is very low. Patient's last Albumin 1.3 which is likely the reason for anasarca. - Nephrology following. Received albumin infusion as well as bumex. Currently on Bumex 1mg Qday. - If oral intake does not improve, alternative nutrition should be addressed. Full code. Heparin SQ. Devi Alejo DO Aug 28, 2016 23:22
[2016-08-29] VITALS (8 sets, daily range): BP systolic 108–144; BP diastolic 53–63; PULSE 80–92; RESP 16–20; TEMP 98.3–100.8; O2SAT 94–99
[2016-08-29] MEDS: ACETAMINOPHEN 500 MG CPLT PO PRN (00:12)
[2016-08-29] MEDS: clonazePAM 0.5 MG TAB PO PRN (01:20)
[2016-08-29] MEDS: CHLORHEXIDINE GLUCONATE 2 % 1 PACK (2 CLOTHS) TOP SCH (04:00)
[2016-08-29] MEDS: ISOSORBIDE DINITRATE 5 MG TAB PO SCH ×3 (06:40→21:42)
[2016-08-29] MEDS: INSULIN ASPART SUPPLEMENTAL SCALE SQ SCH ×4 (06:43→21:00)
[2016-08-29] MEDS: LEVOTHYROXINE SODIUM 150 MCG TAB PO SCH (06:45)
[2016-08-29] MEDS: HYDROCORTISONE 1% CREAM 30 GM TOPICAL SCH ×3 (06:45→20:00)
[2016-08-29] MEDS: BUMETANIDE 1 MG TAB PO SCH (08:16)
[2016-08-29] MEDS: LIOTHYRONINE SODIUM 5 MCG TAB PO SCH (08:16)
[2016-08-29] MEDS: VALSARTAN 40 MG TAB PO SCH (08:16)
[2016-08-29] MEDS: VANCOMYCIN 500 MG VIAL (FOR ORAL USE ONLY) PO SCH ×4 (08:17→21:45)
[2016-08-29] MEDS: METHADONE HCL 10 MG TAB PO SCH ×2 (08:17→21:42)
[2016-08-29] MEDS: VALPROIC ACID 250 MG CAP PO SCH ×2 (08:17→21:42)
[2016-08-29] MEDS: LACTOBACILLUS ACIDOPHILUS TAB PO SCH ×3 (08:17→17:11)
[2016-08-29] MEDS: GABAPENTIN 300 MG CAP PO SCH ×3 (08:17→17:11)
[2016-08-29] MEDS: SODIUM CHLORIDE 0.9% FLUSH 5 ML FLUSH IV FLUSH SCH ×2 (08:23→21:00)
[2016-08-29] MEDS: MUPIROCIN 2% OINT 22 GM TUBE TOPICAL SCH ×2 (08:24→21:00)
--- NOTE | 2016-08-29 16:33 | HHI.PR ---
Subjective Remarks Follow up for lower ext gangrene, PVD, wound, severe neuropathic pain, C. Diff. patient continues to scream loudly. When asked she denies any acute concerns. However she does report pain from her f feet. No fever or chills. Discussed with patient's daughter. Objective Vitals Vital Signs Date Time Temp Pulse Resp B/P Pulse Ox O2 Delivery O2 Flow Rate FiO2 08/29/16 12:00 98.3 86 18 144/63 95 08/29/16 08:50 Nasal Cannula 2.00 08/29/16 08:50 80 08/29/16 08:00 98.7 84 18 108/55 95 08/29/16 04:05 99.4 84 20 126/60 94 08/29/16 00:13 100.8 81 20 109/53 94 08/28/16 21:31 78 08/28/16 20:00 100.0 93 20 104/57 100 08/28/16 20:00 Nasal Cannula 2.00 I/O 08/28/16 08/28/16 08/28/16 08/29/16 08/29/16 08/29/16 07:00 15:00 23:00 07:00 15:00 23:00 Intake Total 0 ml 240 ml 120 ml 240 ml Output Total 225 ml 2000 ml 350 ml 125 ml Balance -225 ml -1760 ml -230 ml 115 ml Intake Oral 0 ml 240 ml 120 ml 240 ml Output Urine Total 225 ml 2000 ml 350 ml 125 ml # Bowel Movements 1 1 2 Imaging Last Impressions Brain MRI 08/25/16 0000 Signed Impressions: Service Date/Time: Thursday, August 25, 2016 19:01 - CONCLUSION: Chronic atrophic and small vessel ischemic changes without any evidence for acute hemorrhage or mass effect. Smith Boateng MD Chest X-Ray 08/19/16 0000 Signed Impressions: Service Date/Time: Friday, August 19, 2016 18:46 - CONCLUSION: 1. Bibasilar streakiness consistent with atelectasis and/or infiltrates. 2. Cardiomegaly. 3. Poor inspiratory result. Shamar Banuelos MD Upper Extremity Ultrasound 07/28/16 0000 Signed Impressions: Service Date/Time: Thursday, July 28, 2016 14:34 - CONCLUSION: No DVT is identified within the right upper extremity. Alfredo Eng MD Head CT 07/19/16 0000 Signed Impressions: Service Date/Time: Tuesday, July 19, 2016 09:58 - CONCLUSION: No acute intracranial findings. João Otoole MD Foot X-Ray 07/16/16 0000 Signed Impressions: Service Date/Time: Saturday, July 16, 2016 17:34 - CONCLUSION: 1. Nonspecific soft tissue swelling. No acute bone destruction demonstrated. 2. Mild talonavicular and navicular/cuneiform degenerative changes. 3. Second through fifth hammertoe. 4. Moderate-sized heel spur. Alfredo Sneed MD Objective Remarks GENERAL: Alert, Screams in pain episodically. SKIN: Warm and dry. HEAD: Normocephalic. EYES: No scleral icterus. No injection or drainage. NECK: Supple, trachea midline. No JVD or lymphadenopathy. CARDIOVASCULAR: Regular rate and rhythm without murmurs, gallops, or rubs. RESPIRATORY: Breath sounds equal bilaterally. No accessory muscle use. GASTROINTESTINAL: Abdomen soft, non-tender, nondistended. MUSCULOSKELETAL: Left foot has multiple toes with gangrenous changes. Right foot with digit 3 gangrenous changes. Both lower ext above ankle wrapped in dressing. BACK: Nontender without obvious deformity. No CVA tenderness. Procedures 08/08/2016 PROCEDURE 1. Selective right lower extremity arteriogram. 2. Balloon angioplasty with a 4 mm x 2200 mm and then a 5 x 200 mm Medtronic angioplasty balloon of the right superficial femoral and proximal popliteal artery. 07/31/2016 Excision and debridement of both legs, extensive necrotic wounds approximately 30 x 25 cm area on each side, total 1000 to 1100 cm square, down to the subcutaneous tissue and tendon on the left side. A/P Problem List: (1) Cellulitis of left lower extremity ICD Code: L03.116 Status: Acute (2) Delirium due to another medical condition ICD Code: F05 Status: Acute (3) Neuropathic pain ICD Code: M79.2 Status: Acute Assessment and Plan Pt. is 61-year-old female, with multiple admissions, with history of cellulitis of legs, severe PVD, diabetes and cardiomyopathy EF of 30% was at the rehabilitation facility when she became more altered lethargic and hypoxic. Rapid response team was called and transferred patient to ICU. In the ICU patient remains confused and lethargic responsive to pain with a stable blood pressure and saturation of 100% on 40% face mask. Patient has improved and was transferred to regular medical/ surgical unit. During this hospitalization, plastic surgery, podiatry, vascular surgery followed this patient. Both podiatry and plastic surgery recommended hyperbaric treatments and future skin graft if wound beds are healed. Vascular surgery recommended against amputation and stated that her leg blood supply is adequate. Unfortunately, hyperbaric treatments can only be done in the outpatient setting if patient can go home. It cannot be done while in-patient or from SNF due to financial constraints. Our attempt to transfer patient to [facility] was not successful. - Chronic lower ext wound - Peripheral vascular disease - Severe neuropathic pain - Discussed with Plastic surgery again on 08/28/2016 (Dr. Alfaro and Dr. Pepe). - Plastic surgery recommends right lower ext amputation. Discussed with Dr. Dee who will evaluate patient for right leg amputation. - Per discussion with Dr. Pepe, we will start daily wound care with soft soap or shampoo rinsing followed bout normal saline wet gauge. - Prior to wound care, will provide Ativan 1mg IV, Dilaudid 0.5mg IV. - Continue [place], Dilaudid PRN for pain. - Gabapentin 600mg TID. - Continue low dose Seroquel, Methadone per Palliative care. - Discussed with [facility] physician on 08/27/2016. I agree that we should start looking at a LTAC placement option. - Since hyperbaric tx is not a viable option and patient cannot be discharged home, we looked into alternatives. 08/21/2016 - I discussed with control systems drafting officer (Dr. Altman) regarding an FDA approved topical O2 therapy - Numobag. - Numobag was developed by [employer] and has been used in the and civilian cases successfully. - I discussed with patient's daughter (Tanisha) and also with the company ( [employer]). - We will initiate the process of obtaining numobag and starting topical O2 therapy while patient is in the hospital. - If Patient improves enough to be able to go home or SNF, we can continue Numobag. - Both Dr. Altman (HEATER INSTALLER) and Nurse food manager on the floor agreed with our plan to initiate Numobag. - C. Diff colitis - All abx discontinued and patient is currently on Vancomycin PO. - acute encephalopathy with Hx of seizure activity - continue Valproic acid 250mg Q12hrs. Neurology reconsulted. MRI brain negative for any acute findings. - Left neck rash - could be contact dermatitis- improving - Continue topical abx, steroid. - UTI - Microbiology growing ESBL - Received Doxycycline -Anxiety, acute psychosis. - Received Zyprexa. If needed, we can use Zyprexa or Geodon. -Diabetes mellitus - Continue Levemir 5 units QHS and sliding scale insulin. Monitor for hypoglycemia. -Hypothyroidism - continue levothyroxine 150 g daily. -Hypertension - continue Valsartan 80mg QHS. -Cardiomyopathy - Continue Carvedilol 25mg BID, Valsartan, Isosorbide. -Hx of seizure activity - continue Valproic acid 250mg Q12hrs. -Anemia hgb 7.0 on 08/18/2016. - recheck H&H --> 6.9. S/P two units of PRBCs. Hgb 8.4 on 08/22/2016. - Probable JAYLAN - Anasarca - Urine output is very low. Patient's last Albumin 1.3 which is likely the reason for anasarca. - Nephrology following. Received albumin infusion as well as bumex. Currently on Bumex 1mg Qday. - If oral intake does not improve, alternative nutrition should be addressed. Full code. Heparin SQ. Devi Alejo DO Aug 29, 2016 4:33 pm
[2016-08-29] MEDS ORDERED: LORazepam 2 MG/ML VIAL IV PUSH ONE (17:00)
[2016-08-29] MEDS ORDERED: HYDROmorphone HCL PF 1 MG/ML VIAL IV PUSH ONE (17:00)
--- NOTE | 2016-08-29 17:24 | RADRPT ---
EXAM DATE/TIME: 08/29/2016 16:39 [place] COMPARISON: No previous studies available for comparison. INDICATIONS : Patient with altered mental status in need of lumbar puncture. MEDICAL HISTORY : Bilateral lower extremity cellulitis, Severe PVD, Diabetes, Cardiomyopathy, HTN, Hypothyroidism, Seiz ures SURGICAL HISTORY : Cholecystectomy, Oophorectomy, Right lower extremity angioplasty, Excision and debridement of both le gs ENCOUNTER: Initial ACUITY: 1 month PAIN SCORE: Non-responsive LUMBAR PUNCTURE TIME: 1638 hours FLUORO TIME: 1.5 minutes IMAGE SERIES: 0 ACCESS LEVEL: L3-4 OPENING PRESSURE: 17 cm of water CLOSING PRESSURE: Not requested. FLUID: 12 cc of clear CSF was collected and sent to the laboratory for analysis. PROCEDURE : 1. Fluoroscopic guided lumbar puncture. 2. Recording of opening pressure. The risks, benefits and alternatives to the procedure were explained and verbal and written consent w as obtained. The site was prepped in sterile fashion. Full sterile technique was used, including ca p, mask, sterile gloves and gown and a large sterile sheet. Hand hygiene and 2% chlorhexidine and/or betadine/alcohol prep was utilized per protocol for cutaneous antisepsis. The skin and subcutaneous tissues were infiltrated with local anesthetic solution. With fluoroscopic guidance the lumbar thecal sac was punctured at the above level described above and the opening pressure was recorded. The above described fluid was removed without difficulty. The patient tolerated the procedure well and there were no complications. CONCLUSION: Uncomplicated fluoroscopically guided lumbar puncture with pressures as above. Alfredo Etienne MD on August 29, 2016 at 17:22 Board Certified Radiologist. This report was verified electronically.
--- NOTE | 2016-08-29 17:36 | PD.RAD ---
Post Procedure Progress Note Pre Procedure Diagnosis: (1) Impaired cognition (2) Delirium Post Procedure Diagnosis: (1) Impaired cognition (2) Delirium Procedure Date: Aug 29, 2016 Supervising Radiologist: Alfredo Etienne Proceduralist/Assist: Angela Adams, RT(R)(CV), Ju Gonzalez RT(R) Anesthesia: Local Plan of Activity Patient to Unit: Nursing Unit Patient Condition: Poor See PACS Report for procedural detail/treatment Spinal Procedure Lumbar Puncture L3-L4 Fluid Removal (CCs): 12 Fluid Description: Clear Puncture Time: 16:40 Alfredo Etienne MD Aug 29, 2016 17:35
[2016-08-29 18:08] LABS: LACTIC ACID,CSF 1.4 MMOL/L (0.0-3.0)
[2016-08-29 18:39] LABS: GROSS BLOOD TUBE #1 0 (0); GROSS BLOOD TUBE #2 0 (0); GROSS BLOOD TUBE #3 0 (0); GROSS BLOOD TUBE #4 0 (0); SUPERNATE COLOR TUBE #1 CLEAR (CLEAR); SUPERNATE COLOR TUBE #2 CLEAR (CLEAR); SUPERNATE COLOR TUBE #3 CLEAR (CLEAR); SUPERNATE COLOR TUBE #4 CLEAR (CLEAR); VOLUME TUBE # 4 4.5 ML
[2016-08-29 18:40] LABS: CSF LYMPHOCYTES 100 %; CSF NEUTROPHILS 0 %; WBC TUBE #4 14 /MM3 (0-10)
[2016-08-29] MEDS: INSULIN DETEMIR 100 UNITS/ML VIAL SQ SCH (21:00)
[2016-08-29] MEDS: MELATONIN 5 MG TAB PO SCH (21:41)
[2016-08-29] MEDS: QUEtiapine FUMARATE 25 MG TAB PO SCH (21:42)
[2016-08-30] MEDS: HYDROCORTISONE 1% CREAM 30 GM TOPICAL SCH ×3 (04:00→22:51)
[2016-08-30] MEDS: CHLORHEXIDINE GLUCONATE 2 % 1 PACK (2 CLOTHS) TOP SCH (04:00)
[2016-08-30 04:25] VITALS: BP 98/54; PULSE 76; RESP 16; TEMP 98.5; O2SAT 96
[2016-08-30] MEDS: INSULIN ASPART SUPPLEMENTAL SCALE SQ SCH ×4 (05:42→21:00)
[2016-08-30 08:00] VITALS: BP 101/54; PULSE 86; RESP 18; TEMP 98.7; O2SAT 94
[2016-08-30] MEDS: SODIUM CHLORIDE 0.9% FLUSH 5 ML FLUSH IV FLUSH SCH ×2 (09:00→21:00)
[2016-08-30] MEDS: LACTOBACILLUS ACIDOPHILUS TAB PO SCH ×3 (09:00→18:33)
[2016-08-30] MEDS: MUPIROCIN 2% OINT 22 GM TUBE TOPICAL SCH ×2 (09:00→21:00)
[2016-08-30] MEDS: GABAPENTIN 300 MG CAP PO SCH ×4 (09:27→18:33)
[2016-08-30] MEDS: VANCOMYCIN 500 MG VIAL (FOR ORAL USE ONLY) PO SCH ×4 (09:27→21:11)
[2016-08-30] MEDS: METHADONE HCL 10 MG TAB PO SCH ×3 (09:27→21:11)
[2016-08-30] MEDS: HYDROmorphone HCL PF 1 MG/ML VIAL IV PUSH PRN ×3 (09:27→21:16)
[2016-08-30] MEDS: LIOTHYRONINE SODIUM 5 MCG TAB PO SCH (09:27)
[2016-08-30] MEDS: VALPROIC ACID 250 MG CAP PO SCH ×3 (09:27→21:11)
[2016-08-30] MEDS: VALSARTAN 40 MG TAB PO SCH (09:28)
[2016-08-30] MEDS: clonazePAM 0.5 MG TAB PO PRN ×3 (09:28→22:50)
[2016-08-30] MEDS: ISOSORBIDE DINITRATE 5 MG TAB PO SCH ×4 (09:32→21:11)
[2016-08-30] MEDS: BUMETANIDE 1 MG TAB PO SCH (09:32)
[2016-08-30] MEDS: LEVOTHYROXINE SODIUM 150 MCG TAB PO SCH (09:32)
--- NOTE | 2016-08-30 11:34 | PD.CAR.PN ---
CVT Progress Note Subjective/Hospital Course: Patient seen in situation discussed In the process of obtaining history I found out that the lady is established patient of . Please consult Dr. Taylor for any vascular issues 08/17/16 I was asked by Dr. Alejo to render second opinion on patient's vascular status and possibilities of salvage versus amputation Have evaluated the patient Full consult to follow Will discuss with Dr. Taylor in detail tomorrow 08/18/16 Patient with peripheral vascular disease and debridements taking care of by team of vascular surgery plastic surgery and internal medicine. I discussed the case with Dr. Taylor At this point it is quite appropriate to continue current care as long plastic surgery believes that coverage of these wounds is possible and the salvage is a goal Patient really doesn't want to lose her leg and therefore current course is appropriate Should be current conservative therapy with aggressive debridements and grafting fail left above-knee amputation is always an option and should be reserved for the future as the final option Agree with current approach Thanks Pelon 08/30/2016 As above noted that there are several options for management of this patient and give the salvage is the goal and patient can be managed as per plastic surgery and with hyperbaric therapy but I don't believe this is going to be successful. With this degree of necrosis and tissue loss patient will never walk again on these legs and currently is suffering with pain and repeated dressing changes and conservative therapy Dr. Dejan lira has indicated that skin grafting is not an option anymore and I agree with his assessment. Patient has exposed tendons and the legs and not essentially salvageable anymore. Lady is an established patient of Dr. Taylor and Cindy I'll discuss this with them tomorrow I do not believe there are other options at this point other than above-knee amputations Objective: Vital Signs Date Time Temp Pulse Resp B/P Pulse Ox O2 Delivery O2 Flow Rate FiO2 08/30/16 08:00 98.7 86 18 101/54 94 08/30/16 08:00 Nasal Cannula 2.00 08/30/16 04:25 98.5 76 16 98/54 96 08/29/16 23:37 98.8 90 16 122/56 96 08/29/16 20:00 Nasal Cannula 2.00 08/29/16 19:55 99.6 91 16 119/58 95 08/29/16 16:00 100.0 92 18 120/56 99 08/29/16 12:00 98.3 86 18 144/63 95 (1) Ulcer of heel and midfoot (2) DM (diabetes mellitus), type 2, uncontrolled w/neurologic complication (3) Hypertension (4) Peripheral vascular occlusive disease (5) Delirium due to another medical condition (6) Impaired mobility and activities of daily living (7) Cardiomyopathy (8) VT (ventricular tachycardia) Clinton Pastrana MD Aug 30, 2016 11:34
[2016-08-30 12:00] VITALS: BP 134/58; PULSE 79; RESP 18; TEMP 97; O2SAT 97
[2016-08-30 16:00] VITALS: BP 113/54; PULSE 94; RESP 18; TEMP 97; O2SAT 97
[2016-08-30 20:00] VITALS: BP 97/46; PULSE 84; RESP 18; TEMP 98.1; O2SAT 100
[2016-08-30] MEDS: QUEtiapine FUMARATE 25 MG TAB PO SCH (21:11)
[2016-08-30] MEDS: MELATONIN 5 MG TAB PO SCH (21:11)
[2016-08-30] MEDS: INSULIN DETEMIR 100 UNITS/ML VIAL SQ SCH (21:12)
--- NOTE | 2016-08-30 21:14 | HHI.PR ---
Subjective Remarks Follow up for lower ext gangrene, PVD, wound, severe neuropathic pain, C. Diff. Patient continues to have incoherent speech, confused and screams. No fever, chills. Diarrhea much improved. Objective Vitals Vital Signs Date Time Temp Pulse Resp B/P Pulse Ox O2 Delivery O2 Flow Rate FiO2 08/30/16 20:00 98.1 84 18 97/46 100 08/30/16 16:00 97.0 94 18 113/54 97 08/30/16 15:00 22 08/30/16 15:00 22 08/30/16 12:00 97.0 79 18 134/58 97 08/30/16 08:00 98.7 86 18 101/54 94 08/30/16 08:00 Nasal Cannula 2.00 08/30/16 04:25 98.5 76 16 98/54 96 08/29/16 23:37 98.8 90 16 122/56 96 I/O 08/29/16 08/29/16 08/29/16 08/30/16 08/30/16 08/30/16 07:00 15:00 23:00 07:00 15:00 23:00 Intake Total 240 ml 0 ml 120 ml 300 ml 120 ml Output Total 125 ml 300 ml 200 ml 150 ml 1000 ml Balance 115 ml -300 ml -80 ml 150 ml -880 ml Intake Oral 240 ml 0 ml 120 ml 300 ml 120 ml Output Urine Total 125 ml 300 ml 200 ml 150 ml 1000 ml # Bowel Movements 2 0 0 0 1 Imaging Last Impressions Lumbar Puncture Fluoroscopy 08/29/16 0000 Signed Impressions: Service Date/Time: Monday, August 29, 2016 16:39 - CONCLUSION: Uncomplicated fluoroscopically guided lumbar puncture with pressures as above. Alfredo Etienne MD Brain MRI 08/25/16 0000 Signed Impressions: Service Date/Time: Thursday, August 25, 2016 19:01 - CONCLUSION: Chronic atrophic and small vessel ischemic changes without any evidence for acute hemorrhage or mass effect. Smith Boateng MD Chest X-Ray 08/19/16 0000 Signed Impressions: Service Date/Time: Friday, August 19, 2016 18:46 - CONCLUSION: 1. Bibasilar streakiness consistent with atelectasis and/or infiltrates. 2. Cardiomegaly. 3. Poor inspiratory result. Shamar Banuelos MD Upper Extremity Ultrasound 07/28/16 0000 Signed Impressions: Service Date/Time: Thursday, July 28, 2016 14:34 - CONCLUSION: No DVT is identified within the right upper extremity. Alfredo Eng MD Head CT 07/19/16 0000 Signed Impressions: Service Date/Time: Tuesday, July 19, 2016 09:58 - CONCLUSION: No acute intracranial findings. João Otoole MD Foot X-Ray 07/16/16 Signed Impressions: Service Date/Time: Saturday, July 16, 2016 17:34 - CONCLUSION: 1. Nonspecific soft tissue swelling. No acute bone destruction demonstrated. 2. Mild talonavicular and navicular/cuneiform degenerative changes. 3. Second through fifth hammertoe. 4. Moderate-sized heel spur. Alfredo Sneed MD Objective Remarks GENERAL: Alert, Screams in pain episodically. SKIN: Warm and dry. HEAD: Normocephalic. EYES: No scleral icterus. No injection or drainage. NECK: Supple, trachea midline. No JVD or lymphadenopathy. CARDIOVASCULAR: Regular rate and rhythm without murmurs, gallops, or rubs. RESPIRATORY: Breath sounds equal bilaterally. No accessory muscle use. GASTROINTESTINAL: Abdomen soft, non-tender, nondistended. MUSCULOSKELETAL: Left foot has multiple toes with gangrenous changes. Right foot with digit 3 gangrenous changes. Both lower ext above ankle wrapped in dressing. BACK: Nontender without obvious deformity. No CVA tenderness. Procedures 08/08/2016 PROCEDURE 1. Selective right lower extremity arteriogram. 2. Balloon angioplasty with a 4 mm x 2200 mm and then a 5 x 200 mm Medtronic angioplasty balloon of the right superficial femoral and proximal popliteal artery. 07/31/2016 Excision and debridement of both legs, extensive necrotic wounds approximately 30 x 25 cm area on each side, total 1000 to 1100 cm square, down to the subcutaneous tissue and tendon on the left side. A/P Problem List: (1) Cellulitis of left lower extremity ICD Code: L03.116 Status: Acute (2) Delirium due to another medical condition ICD Code: F05 Status: Acute (3) Neuropathic pain ICD Code: M79.2 Status: Acute Assessment and Plan Pt. is 61-year-old female, with multiple admissions, with history of cellulitis of legs, severe PVD, diabetes and cardiomyopathy EF of 30% was at the rehabilitation facility when she became more altered lethargic and hypoxic. Rapid response team was called and transferred patient to ICU. In the ICU patient remains confused and lethargic responsive to pain with a stable blood pressure and saturation of 100% on 40% face mask. Patient has improved and was transferred to regular medical/ surgical unit. During this hospitalization, plastic surgery, podiatry, vascular surgery followed this patient. Both podiatry and plastic surgery recommended hyperbaric treatments and future skin graft if wound beds are healed. Vascular surgery recommended against amputation and stated that her leg blood supply is adequate. Unfortunately, hyperbaric treatments can only be done in the outpatient setting if patient can go home. It cannot be done while in-patient or from SNF due to financial constraints. Our attempt to transfer patient to [facility] was not successful. - Chronic lower ext wound - Peripheral vascular disease - Severe neuropathic pain - Discussed with Plastic surgery again on 08/28/2016 (Dr. Alfaro and Dr. Pepe). - Plastic surgery recommends right lower ext amputation. Discussed with Dr. Dee who will evaluate patient for right leg amputation. - Per discussion with Dr. Pepe, we will start daily wound care with soft soap or shampoo rinsing followed bout normal saline wet gauge. - Prior to wound care, will provide Ativan 1mg IV, Dilaudid 0.5mg IV. - Continue [place], Dilaudid PRN for pain. - Gabapentin 600mg TID. - Continue low dose Seroquel, Methadone per Palliative care. - Discussed with [facility] physician on 08/27/2016. I agree that we should start looking at a LTAC placement option. - Since hyperbaric tx is not a viable option and patient cannot be discharged home, we looked into alternatives. 08/21/2016 - I discussed with electronic intelligence officer (Dr. Altman) regarding an FDA approved topical O2 therapy - Numobag. - Numobag was developed by [employer] and has been used in the and civilian cases successfully. - I discussed with patient's daughter (Tanisha) and also with the company ( [employer]). - We will initiate the process of obtaining numobag and starting topical O2 therapy while patient is in the hospital. - If Patient improves enough to be able to go home or SNF, we can continue Numobag. - Both Dr. Altman ([facility]) and Nurse craps manager on the floor agreed with our plan to initiate Numobag. - C. Diff colitis - All abx discontinued and patient is currently on Vancomycin PO. - acute encephalopathy with Hx of seizure activity - continue Valproic acid 250mg Q12hrs. Neurology reconsulted. MRI brain negative for any acute findings. - Patient underwent LP today. Will follow results. - Will start low dose Zyprexa (5mg) at bedtime. - Left neck rash - could be contact dermatitis- improving - Continue topical abx, steroid. - UTI - Microbiology growing ESBL - Received Doxycycline -Anxiety, acute psychosis. - Received Zyprexa. If needed, we can use Zyprexa or Geodon. -Diabetes mellitus - Continue Levemir 5 units QHS and sliding scale insulin. Monitor for hypoglycemia. -Hypothyroidism - continue levothyroxine 150 g daily. -Hypertension - continue Valsartan 80mg QHS. -Cardiomyopathy - Continue Carvedilol 25mg BID, Valsartan, Isosorbide. -Hx of seizure activity - continue Valproic acid 250mg Q12hrs. -Anemia hgb 7.0 on 08/18/2016. - recheck H&H --> 6.9. S/P two units of PRBCs. Hgb 8.4 on 08/22/2016. - Probable JAYLAN - Anasarca - Urine output is very low. Patient's last Albumin 1.3 which is likely the reason for anasarca. - Nephrology following. Received albumin infusion as well as bumex. Currently on Bumex 1mg Qday. - If oral intake does not improve, alternative nutrition should be addressed. Full code. Heparin SQ. Devi Alejo DO Aug 30, 2016 21:14
[2016-08-30] MEDS: OLANZapine 5 MG TAB PO SCH (22:50)
[2016-08-31] VITALS (7 sets, daily range): BP systolic 89–109; BP diastolic 52–68; PULSE 85–91; RESP 18–22; TEMP 97.5–99.6; O2SAT 91–99
[2016-08-31] MEDS: HYDROCORTISONE 1% CREAM 30 GM TOPICAL SCH ×3 (03:36→21:24)
[2016-08-31] MEDS: CHLORHEXIDINE GLUCONATE 2 % 1 PACK (2 CLOTHS) TOP SCH (03:36)
[2016-08-31] MEDS: ISOSORBIDE DINITRATE 5 MG TAB PO SCH ×3 (05:31→21:21)
[2016-08-31] MEDS: LEVOTHYROXINE SODIUM 150 MCG TAB PO SCH (05:31)
[2016-08-31] MEDS: HYDROmorphone HCL PF 1 MG/ML VIAL IV PUSH PRN (05:32)
[2016-08-31] MEDS: INSULIN ASPART SUPPLEMENTAL SCALE SQ SCH ×4 (06:09→21:00)
[2016-08-31] MEDS: SODIUM CHLORIDE 0.9% FLUSH 5 ML FLUSH IV FLUSH SCH ×2 (09:00→21:00)
[2016-08-31] MEDS: MUPIROCIN 2% OINT 22 GM TUBE TOPICAL SCH ×2 (09:00→21:00)
[2016-08-31] MEDS: VALSARTAN 40 MG TAB PO SCH (09:00)
[2016-08-31] MEDS: VANCOMYCIN 500 MG VIAL (FOR ORAL USE ONLY) PO SCH ×4 (09:44→21:20)
[2016-08-31] MEDS: LACTOBACILLUS ACIDOPHILUS TAB PO SCH ×3 (09:45→17:45)
[2016-08-31] MEDS: LIOTHYRONINE SODIUM 5 MCG TAB PO SCH (09:45)
[2016-08-31] MEDS: GABAPENTIN 300 MG CAP PO SCH ×3 (09:46→17:45)
[2016-08-31] MEDS: VALPROIC ACID 250 MG CAP PO SCH ×2 (09:46→21:20)
[2016-08-31] MEDS: METHADONE HCL 10 MG TAB PO SCH ×2 (09:46→21:21)
[2016-08-31] MEDS: BUMETANIDE 1 MG TAB PO SCH (09:47)
--- NOTE | 2016-08-31 11:17 | HHI.PR ---
Subjective Remarks Follow up for lower ext gangrene, PVD, wound, severe neuropathic pain, C. Diff. Ms. Lemos is somewhat lethargic today. However, she opens her eyes and answers questions appropriately. Remains afebrile. Objective Vitals Vital Signs Date Time Temp Pulse Resp B/P Pulse Ox O2 Delivery O2 Flow Rate FiO2 08/31/16 08:03 97.5 88 22 90/53 99 08/31/16 07:20 Nasal Cannula 2.00 08/31/16 04:00 99.6 91 18 109/54 93 08/31/16 00:00 98.4 91 18 90/68 91 08/30/16 21:11 Nasal Cannula 2.00 08/30/16 20:00 98.1 84 18 97/46 100 08/30/16 16:00 97.0 94 18 113/54 97 08/30/16 15:00 22 08/30/16 15:00 22 08/30/16 12:00 97.0 79 18 134/58 97 I/O 08/30/16 08/30/16 08/30/16 08/31/16 08/31/16 08/31/16 07:00 15:00 23:00 07:00 15:00 23:00 Intake Total 300 ml 120 ml 240 ml Output Total 150 ml 1000 ml 350 ml Balance 150 ml -880 ml -110 ml Intake Oral 300 ml 120 ml 240 ml Output Urine Total 150 ml 1000 ml 350 ml # Bowel Movements 0 1 0 Imaging Last Impressions Lumbar Puncture Fluoroscopy 08/29/16 0000 Signed Impressions: Service Date/Time: Monday, August 29, 2016 16:39 - CONCLUSION: Uncomplicated fluoroscopically guided lumbar puncture with pressures as above. Alfredo Etienne MD Brain MRI 08/25/16 0000 Signed Impressions: Service Date/Time: Thursday, August 25, 2016 19:01 - CONCLUSION: Chronic atrophic and small vessel ischemic changes without any evidence for acute hemorrhage or mass effect. Smith Boateng MD Chest X-Ray 08/19/16 0000 Signed Impressions: Service Date/Time: Friday, August 19, 2016 18:46 - CONCLUSION: 1. Bibasilar streakiness consistent with atelectasis and/or infiltrates. 2. Cardiomegaly. 3. Poor inspiratory result. Shamar Banuelos MD Upper Extremity Ultrasound 07/28/16 0000 Signed Impressions: Service Date/Time: Thursday, July 28, 2016 14:34 - CONCLUSION: No DVT is identified within the right upper extremity. Alfredo Eng MD Head CT 07/19/16 0000 Signed Impressions: Service Date/Time: Tuesday, July 19, 2016 09:58 - CONCLUSION: No acute intracranial findings. João Otoole MD Foot X-Ray 07/16/16 0000 Signed Impressions: Service Date/Time: Saturday, July 16, 2016 17:34 - CONCLUSION: 1. Nonspecific soft tissue swelling. No acute bone destruction demonstrated. 2. Mild talonavicular and navicular/cuneiform degenerative changes. 3. Second through fifth hammertoe. 4. Moderate-sized heel spur. Alfredo Sneed MD Objective Remarks GENERAL: Alert, Screams in pain episodically. SKIN: Warm and dry. HEAD: Normocephalic. EYES: No scleral icterus. No injection or drainage. NECK: Supple, trachea midline. No JVD or lymphadenopathy. CARDIOVASCULAR: Regular rate and rhythm without murmurs, gallops, or rubs. RESPIRATORY: Breath sounds equal bilaterally. No accessory muscle use. GASTROINTESTINAL: Abdomen soft, non-tender, nondistended. MUSCULOSKELETAL: Left foot has multiple toes with gangrenous changes. Right foot with digit 3 gangrenous changes. Both lower ext above ankle wrapped in dressing. BACK: Nontender without obvious deformity. No CVA tenderness. Procedures 08/08/2016 PROCEDURE 1. Selective right lower extremity arteriogram. 2. Balloon angioplasty with a 4 mm x 2200 mm and then a 5 x 200 mm Medtronic angioplasty balloon of the right superficial femoral and proximal popliteal artery. 07/31/2016 Excision and debridement of both legs, extensive necrotic wounds approximately 30 x 25 cm area on each side, total 1000 to 1100 cm square, down to the subcutaneous tissue and tendon on the left side. A/P Problem List: (1) Cellulitis of left lower extremity ICD Code: L03.116 Status: Acute (2) Delirium due to another medical condition ICD Code: F05 Status: Acute (3) Neuropathic pain ICD Code: M79.2 Status: Acute Assessment and Plan Pt. is 61-year-old female, with multiple admissions, with history of cellulitis of legs, severe PVD, diabetes and cardiomyopathy EF of 30% was at the rehabilitation facility when she became more altered lethargic and hypoxic. Rapid response team was called and transferred patient to ICU. In the ICU patient remains confused and lethargic responsive to pain with a stable blood pressure and saturation of 100% on 40% face mask. Patient has improved and was transferred to regular medical/ surgical unit. During this hospitalization, plastic surgery, podiatry, vascular surgery followed this patient. Both podiatry and plastic surgery recommended hyperbaric treatments and future skin graft if wound beds are healed. Vascular surgery recommended against amputation and stated that her leg blood supply is adequate. Unfortunately, hyperbaric treatments can only be done in the outpatient setting if patient can go home. It cannot be done while in-patient or from SNF due to financial constraints. Our attempt to transfer patient to [facility] was not successful. - Chronic lower ext wound - Peripheral vascular disease - Severe neuropathic pain - Discussed with Plastic surgery again on 08/28/2016 (Dr. Alfaro and Dr. Pepe). - Plastic surgery recommends right lower ext amputation. Discussed with Dr. Dee who will evaluate patient for right leg amputation. - Per discussion with Dr. Pepe, we will start daily wound care with soft soap or shampoo rinsing followed bout normal saline wet gauge. - Discussed with Dr. Pastrana who recommends bilateral amputation. Patient' s family wants Dr. Taylor's group to do amputation. Dr. Pastrana has discussed with Dr. White on 08/30/2016. I will contact Dr. White/Dr. Taylor's office on 09/01/2016 to get a plan. - Continue [place], Dilaudid PRN for pain. - Gabapentin 600mg TID. - Continue low dose Seroquel, Methadone per Palliative care. - [facility] on 08/27/2016. I agree that we should start looking at a LTAC placement option. - Since hyperbaric tx is not a viable option and patient cannot be discharged home, we looked into alternatives. 08/21/2016 - I discussed with aviation ordnance officer (Dr. Altman) regarding an FDA approved topical O2 therapy - Numobag. - Numobag was developed by [employer] and has been used in the and civilian cases successfully. - I discussed with patient's daughter (Tanisha) and also with the company ( [employer]). - We will initiate the process of obtaining numobag and starting topical O2 therapy while patient is in the hospital. - If Patient improves enough to be able to go home or SNF, we can continue Numobag. - Both Dr. Altman ([facility]) and Nurse asset protection manager on the floor agreed with our plan to initiate Numobag. - C. Diff colitis - All abx discontinued and patient is currently on Vancomycin PO. - acute encephalopathy with Hx of seizure activity - continue Valproic acid 250mg Q12hrs. Neurology reconsulted. MRI brain negative for any acute findings. - Patient underwent LP today. Will follow results. - Will start low dose Zyprexa (5mg) at bedtime. - Left neck rash - could be contact dermatitis- improving - Continue topical abx, steroid. - UTI - Microbiology growing ESBL - Received Doxycycline -Anxiety, acute psychosis. - Continue low dose Zyprexa 5mg QHS. -Diabetes mellitus - Continue Levemir 5 units QHS and sliding scale insulin. Monitor for hypoglycemia. -Hypothyroidism - continue levothyroxine 150 g daily. -Hypertension - continue Valsartan 80mg QHS. -Cardiomyopathy - Continue Carvedilol 25mg BID, Valsartan, Isosorbide. -Hx of seizure activity - continue Valproic acid 250mg Q12hrs. -Anemia hgb 7.0 on 08/18/2016. - recheck H&H --> 6.9. S/P two units of PRBCs. Hgb 8.4 on 08/22/2016. - Probable JAYLAN - Anasarca - Urine output is very low. Patient's last Albumin 1.3 which is likely the reason for anasarca. - Nephrology following. Received albumin infusion as well as bumex. Currently on Bumex 1mg Qday. - If oral intake does not improve, alternative nutrition should be addressed. Full code. Heparin SQ. Devi Alejo DO Aug 31, 2016 11:17
--- NOTE | 2016-08-31 11:44 | PD.CAR.PN ---
CVT Progress Note Subjective/Hospital Course: Patient seen in situation discussed In the process of obtaining history I found out that the lady is established patient of . Please consult Dr. Taylor for any vascular issues 08/17/16 I was asked by Dr. Alejo to render second opinion on patient's vascular status and possibilities of salvage versus amputation Have evaluated the patient Full consult to follow Will discuss with Dr. Taylor in detail tomorrow 08/18/16 Patient with peripheral vascular disease and debridements taking care of by team of vascular surgery plastic surgery and internal medicine. I discussed the case with Dr. Taylor At this point it is quite appropriate to continue current care as long plastic surgery believes that coverage of these wounds is possible and the salvage is a goal Patient really doesn't want to lose her leg and therefore current course is appropriate Should be current conservative therapy with aggressive debridements and grafting fail left above-knee amputation is always an option and should be reserved for the future as the final option Agree with current approach Juana Bird 08/30/2016 As above noted that there are several options for management of this patient and give the salvage is the goal and patient can be managed as per plastic surgery and with hyperbaric therapy but I don't believe this is going to be successful. With this degree of necrosis and tissue loss patient will never walk again on these legs and currently is suffering with pain and repeated dressing changes and conservative therapy Dr. Dejan lira has indicated that skin grafting is not an option anymore and I agree with his assessment. Patient has exposed tendons and the legs and not essentially salvageable anymore. Lady is an established patient of Dr. Taylor and Cindy I'll discuss this with them tomorrow I do not believe there are other options at this point other than above-knee amputations 08/31/2016 I discussed the patient with Dr. Brand yesterday afternoon. We are both in agreement that patient will need bilateral above-knee amputations for all the other means of therapy at this point have failed I also believe the patient will eventually develop sepsis and renal failure and from this. It is not quite clear as to the underlying problem but that this point patient has necrotic legs and no other options available other than amputations Dr. Brand was going to discuss this with Dr. Taylor tomorrow to make a decision went to proceed with amputations for this is an established patient of Dr. Taylor Objective: Vital Signs Date Time Temp Pulse Resp B/P Pulse Ox O2 Delivery O2 Flow Rate FiO2 08/31/16 08:03 97.5 88 22 90/53 99 08/31/16 07:20 Nasal Cannula 2.00 08/31/16 04:00 99.6 91 18 109/54 93 08/31/16 00:00 98.4 91 18 90/68 91 08/30/16 21:11 Nasal Cannula 2.00 08/30/16 20:00 98.1 84 18 97/46 100 08/30/16 16:00 97.0 94 18 113/54 97 08/30/16 15:00 22 08/30/16 15:00 22 08/30/16 12:00 97.0 79 18 134/58 97 (1) Ulcer of heel and midfoot (2) DM (diabetes mellitus), type 2, uncontrolled w/neurologic complication (3) Hypertension (4) Peripheral vascular occlusive disease (5) Delirium due to another medical condition (6) Impaired mobility and activities of daily living (7) Cardiomyopathy (8) VT (ventricular tachycardia) Clinton Pastrana MD Aug 31, 2016 11:44
[2016-08-31] MEDS: MELATONIN 5 MG TAB PO SCH (21:20)
[2016-08-31] MEDS: OLANZapine 5 MG TAB PO SCH (21:20)
[2016-08-31] MEDS: QUEtiapine FUMARATE 25 MG TAB PO SCH (21:21)
[2016-08-31] MEDS: INSULIN DETEMIR 100 UNITS/ML VIAL SQ SCH (21:22)
[2016-09-01] VITALS (9 sets, daily range): BP systolic 98–129; BP diastolic 52–70; PULSE 88–133; RESP 12–20; TEMP 98.9–100; O2SAT 87–100
[2016-09-01] MEDS: CHLORHEXIDINE GLUCONATE 2 % 1 PACK (2 CLOTHS) TOP SCH (04:00)
[2016-09-01] MEDS: LEVOTHYROXINE SODIUM 150 MCG TAB PO SCH (05:54)
[2016-09-01] MEDS: INSULIN ASPART SUPPLEMENTAL SCALE SQ SCH ×4 (05:55→21:48)
[2016-09-01] MEDS: ISOSORBIDE DINITRATE 5 MG TAB PO SCH ×3 (05:55→21:48)
[2016-09-01] MEDS: HYDROCORTISONE 1% CREAM 30 GM TOPICAL SCH ×3 (05:55→21:50)
[2016-09-01] MEDS: GABAPENTIN 300 MG CAP PO SCH ×3 (08:18→18:44)
[2016-09-01] MEDS: VALPROIC ACID 250 MG CAP PO SCH ×2 (08:18→21:49)
[2016-09-01] MEDS: VALSARTAN 40 MG TAB PO SCH (08:18)
[2016-09-01] MEDS: BUMETANIDE 1 MG TAB PO SCH (08:18)
[2016-09-01] MEDS: VANCOMYCIN 500 MG VIAL (FOR ORAL USE ONLY) PO SCH ×4 (08:18→21:48)
[2016-09-01] MEDS: LIOTHYRONINE SODIUM 5 MCG TAB PO SCH (08:18)
[2016-09-01] MEDS: SODIUM CHLORIDE 0.9% FLUSH 5 ML FLUSH IV FLUSH SCH ×2 (08:19→21:00)
[2016-09-01] MEDS: METHADONE HCL 10 MG TAB PO SCH ×2 (08:19→21:49)
[2016-09-01] MEDS: LACTOBACILLUS ACIDOPHILUS TAB PO SCH ×3 (08:19→18:44)
[2016-09-01] MEDS: MUPIROCIN 2% OINT 22 GM TUBE TOPICAL SCH ×2 (08:20→21:00)
[2016-09-01] MEDS: QUEtiapine FUMARATE 25 MG TAB PO PRN (12:37)
--- NOTE | 2016-09-01 18:11 | PD.VS.PN ---
Subjective Subjective/Hospital Course Pt well known and has progressive LE wounds that do not appear primarily atherosclerotic, now s/p B LE revascularizations but with persistent progression of wounds. Additionally, she has altered mental status of unclear etiology. Objective Vitals/I&O Date Time Temp Pulse Resp B/P Pulse Ox O2 Delivery O2 Flow Rate FiO2 09/01/16 16:00 99.4 110 16 129/70 97 09/01/16 12:15 132 100 09/01/16 12:00 100.0 133 12 122/58 09/01/16 08:50 88 Nasal Cannula 4.00 09/01/16 08:16 96 Nasal Cannula 2.00 09/01/16 08:00 99.8 88 16 118/52 87 09/01/16 04:00 98.9 89 16 126/54 96 09/01/16 00:00 99.3 92 18 105/55 91 08/31/16 21:24 Nasal Cannula 2.00 08/31/16 20:42 92 Nasal Cannula 2.50 08/31/16 20:00 99.4 85 18 97/54 95 09/01/16 09/01/16 09/01/16 07:00 15:00 23:00 Intake Total 0 ml 100 ml Output Total 100 ml 200 ml Balance -100 ml -100 ml Physical Exam RIGHT LEG; profound pedal ischemia with severe tissue loss in calf, no erythema proximal to proximal calf; serous drainage LEFT LEG: excellent granulation tissue and calcified, dried tissue over calcaneus. Calf granulation tissue looks quite healthy Laboratory Date/Time Procedure Status Source Growth 08/29/16 16:41 Gram Stain - Final Complete Cerebral Spinal Fluid Lumbar Puncture 08/29/16 16:41 CSF Culture - Final Complete Cerebral Spinal Fluid Lumbar Puncture NO GROWTH IN 72 HOURS Assessment and Plan Plan We have attempted to maximize wound care, which seems to be working for the bulk of her LEFT sided wounds. Of great concern is the calcaneus which may or may not ever heal. However, there is no evidence to suggest that this is anything more than just dry gangrene at present: no odor or other sign of infection. On the RIGHT, I think the leg is unsalvageable, and clearly not primarily vascular-deficiency leading to the tissue loss, although a component. I talked with the daughter, primary physician, and about the options and I think the best course of action is a RIGHT ABOVE KNEE AMPUTATION. I think this will help her overall course but may not improve her mental status. She needs to use her LEFT leg even for partial weight bearing after the amputation on the RIGHT. Tentatively on the schedule for a RIGHT AKA tomorrow (Thursday). The daughter, who is medical POA, is in agreement with the plan. Shamar Taylor MD Sep 01, 2016 18:11
[2016-09-01] MEDS: QUEtiapine FUMARATE 25 MG TAB PO SCH (21:00)
[2016-09-01] MEDS: INSULIN DETEMIR 100 UNITS/ML VIAL SQ SCH (21:47)
[2016-09-01] MEDS: OLANZapine 5 MG TAB PO SCH (21:49)
[2016-09-01] MEDS: MELATONIN 5 MG TAB PO SCH (21:49)
--- NOTE | 2016-09-01 23:36 | HHI.PR ---
Subjective Remarks Follow up for lower ext gangrene, PVD, wound, severe neuropathic pain, C. Diff. Patient continues to be confused, screams frequently. No fever, chills. Diarrhea improved. Objective Vitals Vital Signs Date Time Temp Pulse Resp B/P Pulse Ox O2 Delivery O2 Flow Rate FiO2 09/01/16 21:32 90 Nasal Cannula 4.00 09/01/16 21:32 90 09/01/16 20:00 99.2 96 20 98/57 94 09/01/16 16:00 99.4 110 16 129/70 97 09/01/16 12:15 132 100 09/01/16 12:00 100.0 133 12 122/58 09/01/16 08:50 88 Nasal Cannula 4.00 09/01/16 08:16 96 Nasal Cannula 2.00 09/01/16 08:00 99.8 88 16 118/52 87 09/01/16 04:00 98.9 89 16 126/54 96 09/01/16 00:00 99.3 92 18 105/55 91 I/O 08/31/16 08/31/16 08/31/16 09/01/16 09/01/16 09/01/16 07:00 15:00 23:00 07:00 15:00 23:00 Intake Total 120 ml 0 ml 100 ml Output Total 300 ml 100 ml 200 ml 150 ml Balance -180 ml -100 ml -100 ml -150 ml Intake Oral 120 ml 0 ml 100 ml Output Urine Total 300 ml 100 ml 200 ml 150 ml Stool Total 0 ml # Bowel Movements 0 0 0 Objective Remarks GENERAL: Alert, Screams in pain episodically. SKIN: Warm and dry. HEAD: Normocephalic. EYES: No scleral icterus. No injection or drainage. NECK: Supple, trachea midline. No JVD or lymphadenopathy. CARDIOVASCULAR: Regular rate and rhythm without murmurs, gallops, or rubs. RESPIRATORY: Breath sounds equal bilaterally. No accessory muscle use. GASTROINTESTINAL: Abdomen soft, non-tender, nondistended. MUSCULOSKELETAL: Left foot has multiple toes with gangrenous changes. Right foot with digit 3 gangrenous changes. Both lower ext above ankle wrapped in dressing. BACK: Nontender without obvious deformity. No CVA tenderness. Procedures 08/08/2016 PROCEDURE 1. Selective right lower extremity arteriogram. 2. Balloon angioplasty with a 4 mm x 2200 mm and then a 5 x 200 mm Medtronic angioplasty balloon of the right superficial femoral and proximal popliteal artery. 07/31/2016 Excision and debridement of both legs, extensive necrotic wounds approximately 30 x 25 cm area on each side, total 1000 to 1100 cm square, down to the subcutaneous tissue and tendon on the left side. A/P Problem List: (1) Cellulitis of left lower extremity ICD Code: L03.116 Status: Acute (2) Delirium due to another medical condition ICD Code: F05 Status: Acute (3) Neuropathic pain ICD Code: M79.2 Status: Acute Assessment and Plan Pt. is 61-year-old female, with multiple admissions, with history of cellulitis of legs, severe PVD, diabetes and cardiomyopathy EF of 30% was at the rehabilitation facility when she became more altered lethargic and hypoxic. Rapid response team was called and transferred patient to ICU. In the ICU patient remains confused and lethargic responsive to pain with a stable blood pressure and saturation of 100% on 40% face mask. Patient has improved and was transferred to regular medical/ surgical unit. During this hospitalization, plastic surgery, podiatry, vascular surgery followed this patient. Both podiatry and plastic surgery recommended hyperbaric treatments and future skin graft if wound beds are healed. Vascular surgery recommended against amputation and stated that her leg blood supply is adequate. Unfortunately, hyperbaric treatments can only be done in the outpatient setting if patient can go home. It cannot be done while in-patient or from SNF due to financial constraints. Our attempt to transfer patient to [facility] was not successful. - Chronic lower ext wound - Peripheral vascular disease - Severe neuropathic pain - Visited patient again in the afternoon along with Dr. White, Dr. Taylor and Vascular surgery WAREHOUSE LABORER. - After a long discussion, decision was to perform AKA on the right side. - Continue [place], Dilaudid PRN for pain. - Gabapentin 600mg TID. - Continue low dose Seroquel, Methadone per Palliative care. - Discussed with [facility] physician on 08/27/2016. I agree that we should start looking at a LTAC placement option. - Since hyperbaric tx is not a viable option and patient cannot be discharged home, we looked into alternatives. 08/21/2016 - I discussed with aoc plans intelligence officer chief (Dr. Altman) regarding an FDA approved topical O2 therapy - Numobag. - Numobag was developed by [employer] and has been used in the and civilian cases successfully. - I discussed with patient's daughter (Tanisha) and also with the company ( [employer]). - We will initiate the process of obtaining numobag and starting topical O2 therapy while patient is in the hospital. - If Patient improves enough to be able to go home or SNF, we can continue Numobag. - Both Dr. Altman ([facility]) and Nurse lead project manager on the floor agreed with our plan to initiate Numobag. - C. Diff colitis - All abx discontinued and patient is currently on Vancomycin PO. - acute encephalopathy with Hx of seizure activity - continue Valproic acid 250mg Q12hrs. Neurology reconsulted. MRI brain negative for any acute findings. - Patient underwent LP today. Will follow results. - Continue low dose Zyprexa (5mg) at bedtime. - Left neck rash - could be contact dermatitis- improving - Continue topical abx, steroid. - UTI - Microbiology growing ESBL - Received Doxycycline -Anxiety, acute psychosis. - Continue low dose Zyprexa 5mg QHS. -Diabetes mellitus - Continue Levemir 5 units QHS and sliding scale insulin. Monitor for hypoglycemia. -Hypothyroidism - continue levothyroxine 150 g daily. -Hypertension - continue Valsartan 80mg QHS. -Cardiomyopathy - Continue Carvedilol 25mg BID, Valsartan, Isosorbide. -Hx of seizure activity - continue Valproic acid 250mg Q12hrs. -Anemia hgb 7.0 on 08/18/2016. - recheck H&H --> 6.9. S/P two units of PRBCs. Hgb 8.4 on 08/22/2016. - Probable JAYLAN - Anasarca - Urine output is very low. Patient's last Albumin 1.3 which is likely the reason for anasarca. - Nephrology following. Received albumin infusion as well as bumex. Currently on Bumex 1mg Qday. - If oral intake does not improve, alternative nutrition should be addressed. Full code. Heparin SQ. Devi Alejo DO Sep 01, 2016 23:35
[2016-09-02] VITALS (9 sets, daily range): BP systolic 92–107; BP diastolic 48–59; PULSE 74–92; RESP 16–20; TEMP 97.6–99.7; O2SAT 94–100
[2016-09-02] MEDS: POTASSIUM CHLORIDE INJ 20 MEQ in LACTATED RINGER'S 1000 ML INJ 1,000 ML IV SCH (00:39)
[2016-09-02] MEDS: CHLORHEXIDINE GLUCONATE 2 % 1 PACK (2 CLOTHS) TOP SCH (04:00)
[2016-09-02] MEDS: HYDROCORTISONE 1% CREAM 30 GM TOPICAL SCH ×3 (04:04→20:00)
[2016-09-02] MEDS: LEVOTHYROXINE SODIUM 150 MCG TAB PO SCH (05:38)
[2016-09-02] MEDS: ISOSORBIDE DINITRATE 5 MG TAB PO SCH ×2 (05:38→14:00)
[2016-09-02] MEDS: INSULIN ASPART SUPPLEMENTAL SCALE SQ SCH ×4 (05:42→21:00)
[2016-09-02 08:43] LABS: AUTOMATED NEUTROPHIL # 11.2 TH/MM3 (1.8-7.7); BASOPHIL % 0.3 % (0.0-2.0); EOSINOPHIL # 0.3 TH/MM3 (0-0.4); EOSINOPHIL % 2.2 % (0.0-4.0); HEMATOCRIT 25.4 % (35.0-46.0); LYMPHOCYTE # 1.5 TH/MM3 (1.0-4.8); MEAN CELL VOLUME 77.4 FL (80.0-100.0); MEAN CORPUSCULAR HEMOGLOBIN 23.8 PG (27.0-34.0); MEAN CORPUSCULAR HGB CONC 30.7 % (32.0-36.0); NEUT % 80.5 % (16.0-70.0); PLATELET COUNT 440 TH/MM3 (150-450); RED BLOOD COUNT 3.28 MIL/MM3 (4.00-5.30); RED CELL DISTRIBUTION WIDTH 17.6 % (11.6-17.2); WHITE BLOOD COUNT 13.9 TH/MM3 (4.0-11.0)
[2016-09-02 08:45] LABS: HEMO FLAGS AUTO DIFF
[2016-09-02] MEDS: LIOTHYRONINE SODIUM 5 MCG TAB PO SCH (09:00)
[2016-09-02] MEDS: LACTOBACILLUS ACIDOPHILUS TAB PO SCH ×3 (09:00→17:51)
[2016-09-02] MEDS: GABAPENTIN 300 MG CAP PO SCH ×3 (09:00→17:51)
[2016-09-02] MEDS: VANCOMYCIN 500 MG VIAL (FOR ORAL USE ONLY) PO SCH ×4 (09:00→22:28)
[2016-09-02] MEDS: VALPROIC ACID 250 MG CAP PO SCH ×2 (09:00→21:00)
[2016-09-02] MEDS: METHADONE HCL 10 MG TAB PO SCH (09:00)
[2016-09-02] MEDS: BUMETANIDE 1 MG TAB PO SCH (09:00)
[2016-09-02] MEDS: VALSARTAN 40 MG TAB PO SCH (09:00)
[2016-09-02] MEDS: SODIUM CHLORIDE 0.9% FLUSH 5 ML FLUSH IV FLUSH SCH ×2 (09:00→21:00)
[2016-09-02] MEDS: MUPIROCIN 2% OINT 22 GM TUBE TOPICAL SCH ×2 (09:00→22:29)
[2016-09-02 09:01] LABS: BICARBONATE 41.2 MEQ/L (21.0-32.0); POTASSIUM 3.5 MEQ/L (3.5-5.1)
[2016-09-02 09:03] LABS: BLOOD GAS CARBOXYHEMOGLOBIN 1.5 % (0-4); BLOOD GAS HCO3 39 mmol/L (22-26); BLOOD GAS METHEMOGLOBIN 0.7 % (0-2); BLOOD GAS O2 HGB SATURATION 91 % (90-100); BLOOD GAS PCO2 62 mmHg (38-42); BLOOD GAS PO2 67 mmHg (61-120); BLOOD GAS TOTAL HGB 7.8 G/DL (12.0-16.0); TEMP CORR TO 98.6
[2016-09-02 09:04] LABS: CRITICAL VALUE YES; DRAW SITE LT RADIAL; FIO2 5 %; NUMBER OF ARTERIAL PUNCTURES 1; OXYGEN DEVICE NASAL CANNULA; STAT YES
[2016-09-02 09:14] LABS: PLATELET ESTIMATE SMEAR HIGH (NORMAL)
[2016-09-02 09:20] LABS: PLATELET MORPHOLOGY NORMAL (NORMAL); SCAN/DIFF AUTO DIFF CONFIRMED
--- NOTE | 2016-09-02 09:53 | HHI.PR ---
Subjective Remarks Follow up for lower ext gangrene, PVD, wound, severe neuropathic pain, C. Diff. Ms. Lemos was less responsive today. Clintt was called due to non- responsiveness. I immediately went to evaluate patient. By the time of my arrival, patient was again somewhat responsive. Per RN, she did not receive any pain meds or sedatives this morning. No fever, chills. Later in the morning, I evaluated patient again along with Vascular surgery. Patient is scheduled for right AKA today. Objective Vitals Vital Signs Date Time Temp Pulse Resp B/P Pulse Ox O2 Delivery O2 Flow Rate FiO2 09/02/16 08:00 99.0 74 16 104/59 97 09/02/16 04:00 97.6 86 20 107/59 94 09/02/16 00:00 99.7 92 20 102/48 97 09/01/16 21:50 Nasal Cannula 5.00 09/01/16 21:32 90 Nasal Cannula 4.00 09/01/16 21:32 90 09/01/16 20:00 99.2 96 20 98/57 94 09/01/16 16:00 99.4 110 16 129/70 97 09/01/16 12:15 132 100 09/01/16 12:00 100.0 133 12 122/58 I/O 09/01/16 09/01/16 09/01/16 09/02/16 09/02/16 09/02/16 07:00 15:00 23:00 07:00 15:00 23:00 Intake Total 0 ml 100 ml 211 ml Output Total 100 ml 200 ml 150 ml Balance -100 ml -100 ml -150 ml 211 ml Intake Oral 0 ml 100 ml IV Total 211 ml Output Urine Total 100 ml 200 ml 150 ml Stool Total 0 ml # Bowel Movements 0 0 Result Diagram: 09/02/16 0759 09/02/16 0759 Imaging Last Impressions Lumbar Puncture Fluoroscopy 08/29/16 0000 Signed Impressions: Service Date/Time: Monday, August 29, 2016 16:39 - CONCLUSION: Uncomplicated fluoroscopically guided lumbar puncture with pressures as above. Alfredo Etienne MD Brain MRI 08/25/16 0000 Signed Impressions: Service Date/Time: Thursday, August 25, 2016 19:01 - CONCLUSION: Chronic atrophic and small vessel ischemic changes without any evidence for acute hemorrhage or mass effect. Smith Boateng MD Chest X-Ray 08/19/16 0000 Signed Impressions: Service Date/Time: Friday, August 19, 2016 18:46 - CONCLUSION: 1. Bibasilar streakiness consistent with atelectasis and/or infiltrates. 2. Cardiomegaly. 3. Poor inspiratory result. Shamar Banuelos MD Upper Extremity Ultrasound 07/28/16 0000 Signed Impressions: Service Date/Time: Thursday, July 28, 2016 14:34 - CONCLUSION: No DVT is identified within the right upper extremity. Alfredo Eng MD Head CT 07/19/16 0000 Signed Impressions: Service Date/Time: Tuesday, July 19, 2016 09:58 - CONCLUSION: No acute intracranial findings. João Otoole MD Foot X-Ray 07/16/16 0000 Signed Impressions: Service Date/Time: Saturday, July 16, 2016 17:34 - CONCLUSION: 1. Nonspecific soft tissue swelling. No acute bone destruction demonstrated. 2. Mild talonavicular and navicular/cuneiform degenerative changes. 3. Second through fifth hammertoe. 4. Moderate-sized heel spur. Alfredo Sneed MD Objective Remarks GENERAL: Lethargic, wakes up on verbal and light physical touch, Mumbles. Does not have any coherent thought process. SKIN: Warm and dry. HEAD: Normocephalic. EYES: No scleral icterus. No injection or drainage. NECK: Supple, trachea midline. No JVD or lymphadenopathy. CARDIOVASCULAR: Regular rate and rhythm without murmurs, gallops, or rubs. RESPIRATORY: Breath sounds equal bilaterally. No accessory muscle use. GASTROINTESTINAL: Abdomen soft, non-tender, nondistended. MUSCULOSKELETAL: Left foot has multiple toes with gangrenous changes. Right foot with digit 3 gangrenous changes. Both lower ext above ankle wrapped in dressing. BACK: Nontender without obvious deformity. No CVA tenderness. Procedures 08/08/2016 PROCEDURE 1. Selective right lower extremity arteriogram. 2. Balloon angioplasty with a 4 mm x 2200 mm and then a 5 x 200 mm Medtronic angioplasty balloon of the right superficial femoral and proximal popliteal artery. 07/31/2016 Excision and debridement of both legs, extensive necrotic wounds approximately 30 x 25 cm area on each side, total 1000 to 1100 cm square, down to the subcutaneous tissue and tendon on the left side. A/P Problem List: (1) Cellulitis of left lower extremity ICD Code: L03.116 Status: Acute (2) Delirium due to another medical condition ICD Code: F05 Status: Acute (3) Neuropathic pain ICD Code: M79.2 Status: Acute Assessment and Plan Pt. is 61-year-old female, with multiple admissions, with history of cellulitis of legs, severe PVD, diabetes and cardiomyopathy EF of 30% was at the rehabilitation facility when she became more altered lethargic and hypoxic. Rapid response team was called and transferred patient to ICU. In the ICU patient remains confused and lethargic responsive to pain with a stable blood pressure and saturation of 100% on 40% face mask. Patient has improved and was transferred to regular medical/ surgical unit. During this hospitalization, plastic surgery, podiatry, vascular surgery followed this patient. Both podiatry and plastic surgery recommended hyperbaric treatments and future skin graft if wound beds are healed. Vascular surgery recommended against amputation and stated that her leg blood supply is adequate. Unfortunately, hyperbaric treatments can only be done in the outpatient setting if patient can go home. It cannot be done while in-patient or from SNF due to financial constraints. Our attempt to transfer patient to [facility] was not successful. - Chronic lower ext wound - Peripheral vascular disease - Severe neuropathic pain - Patient is scheduled for right sided AKA today. - Discontinue Gabapentin. Hold Seroquel, Methadone and Zyprexa. - In acute agitation, Haldol can be given. - Continue low dose Seroquel, Methadone per Palliative care. - Dilaudid for breakthrough pain. - Discussed with LAURA physician on 08/27/2016. I agree that we should start looking at a LTAC placement option. - Since hyperbaric tx is not a viable option and patient cannot be discharged home, we looked into alternatives. 08/21/2016 - I discussed with student officer (Dr. Altman) regarding an FDA approved topical O2 therapy - Numobag. - Numobag was developed by [employer] and has been used in the and civilian cases successfully. - I discussed with patient's daughter (Tanisha) and also with the company ( [employer]). - We will initiate the process of obtaining numobag and starting topical O2 therapy while patient is in the hospital. - If Patient improves enough to be able to go home or SNF, we can continue Numobag. - Both Dr. Altman ([facility]) and Nurse sales enablement manager on the floor agreed with our plan to initiate Numobag. - C. Diff colitis - All abx discontinued and patient is currently on Vancomycin PO. - acute encephalopathy - Hx of seizure activity - continue Valproic acid 250mg Q12hrs. Neurology reconsulted. MRI brain negative for any acute findings. - Patient underwent LP and MRI study - no significant findings. - Hold low dose Zyprexa (5mg) at bedtime. - Will consult neuropsychology for an evaluation. - UTI - Microbiology grew ESBL - Received Doxycycline -Diabetes mellitus - Continue Levemir 5 units QHS and sliding scale insulin. Monitor for hypoglycemia. -Hypothyroidism - continue levothyroxine 150 g daily. - Hypertension - Cardiomyopathy - Hold anti-hypertensives for now. -Hx of seizure activity - continue Valproic acid 250mg Q12hrs. Full code. Heparin SQ. Devi Alejo DO Sep 02, 2016 09:53
[2016-09-02 10:25] LABS: HSV 1,PCR Negative (Negative)
[2016-09-02] MEDS ORDERED: NORMOSOL R INJ 1,000 ML IV ONE (12:00)
[2016-09-02] MEDS ORDERED: SODIUM CHLOR 0.9% 250 ML INJ 250 ML IV ONE (12:00)
[2016-09-02] MEDS ORDERED: ONDANSETRON HCL 4 MG/2 ML VIAL IV PUSH ONE (12:00)
[2016-09-02] MEDS ORDERED: fentaNYL CITRATE 250 MCG/5 ML AMP IV ONE (12:00)
[2016-09-02] MEDS ORDERED: ePHEDrine/NS 25 MG/5 ML SYR IV ONE (12:00)
[2016-09-02] MEDS ORDERED: PROPOFOL 200 MG/20 ML AMP IV ONE (12:00)
[2016-09-02] MEDS ORDERED: PHENYLEPH/NS 1000 MCG/10 ML SYR IV ONE (12:00)
--- NOTE | 2016-09-02 13:26 | PD.VS.PN ---
Pre-operative Note Pre-operative diagnosis: R LE tissue loss, unsalvageable leg Planned procedure: R AKA Interval History: Altered mental status but HD stable. Discussed at length with the patient's family who all agree that a R AKA is best next step. Two consulting services are in agreement as well as documented in EMR Labs: Laboratory Results Test 09/02/16 07:59 White Blood Count 13.9 TH/MM3 (4.0-11.0) Red Blood Count 3.28 MIL/MM3 (4.00-5.30) Hemoglobin 7.8 GM/DL (11.6-15.3) Hematocrit 25.4 % (35.0-46.0) Mean Corpuscular Volume 77.4 FL (80.0-100.0) Mean Corpuscular Hemoglobin 23.8 PG (27.0-34.0) Mean Corpuscular Hemoglobin 30.7 % Concent (32.0-36.0) Red Cell Distribution Width 17.6 % (11.6-17.2) Platelet Count 440 TH/MM3 (150-450) Mean Platelet Volume 6.6 FL (7.0-11.0) Sodium Level 144 MEQ/L (136-145) Potassium Level 3.5 MEQ/L (3.5-5.1) Chloride Level 98 MEQ/L (98-107) Carbon Dioxide Level 41.2 MEQ/L (21.0-32.0) Anion Gap 5 MEQ/L (5-15) Blood Urea Nitrogen 19 MG/DL (7-18) Random Glucose 78 MG/DL (74-106) Calcium Level 7.9 MG/DL (8.5-10.1) Blood: T&S Imaging: Last Impressions Lumbar Puncture Fluoroscopy 08/29/16 0000 Signed Impressions: Service Date/Time: Monday, August 29, 2016 16:39 - CONCLUSION: Uncomplicated fluoroscopically guided lumbar puncture with pressures as above. Alfredo Etienne MD Brain MRI 08/25/16 0000 Signed Impressions: Service Date/Time: Thursday, August 25, 2016 19:01 - CONCLUSION: Chronic atrophic and small vessel ischemic changes without any evidence for acute hemorrhage or mass effect. Smith Boateng MD Chest X-Ray 08/19/16 0000 Signed Impressions: Service Date/Time: Friday, August 19, 2016 18:46 - CONCLUSION: 1. Bibasilar streakiness consistent with atelectasis and/or infiltrates. 2. Cardiomegaly. 3. Poor inspiratory result. Shamar Banuelos MD Upper Extremity Ultrasound 07/28/16 0000 Signed Impressions: Service Date/Time: Thursday, July 28, 2016 14:34 - CONCLUSION: No DVT is identified within the right upper extremity. Alfredo Eng MD Head CT 07/19/16 0000 Signed Impressions: Service Date/Time: Tuesday, July 19, 2016 09:58 - CONCLUSION: No acute intracranial findings. João Otoole MD Foot X-Ray 07/16/16 0000 Signed Impressions: Service Date/Time: Saturday, July 16, 2016 17:34 - CONCLUSION: 1. Nonspecific soft tissue swelling. No acute bone destruction demonstrated. 2. Mild talonavicular and navicular/cuneiform degenerative changes. 3. Second through fifth hammertoe. 4. Moderate-sized heel spur. Alfredo Sneed MD Orders: NPO Post-operative destination: PACU Operative site marked: Yes Consent: Informed consent has been obtained from Joi Lemos's family. I have explained the procedure in detail and discussed the risks, benefits, and potential complications. All questions have been answered. Patient contact information: Daughter Louis Mancia - [phone] Shamar Taylor MD Sep 02, 2016 13:25
[2016-09-02] MEDS ORDERED: VANCOMYCIN HCL 1000 MG VIAL OTHER ONE (16:51)
--- NOTE | 2016-09-02 17:42 | HHI.PR ---
Immediate Post Op Note Procedure Date: Sep 02, 2016 Pre Op Diagnosis: non-salvageable R LE, PAD Post Op Diagnosis: non-salvageable R LE, PAD Surgeon: Shamar Taylor Tank Worker(s): Arthur Guaman Procedure: R AKA Findings: edematous but viable tissue no infection Complications: none Specimen(s) removed: R leg Estimated blood loss: 200mL Anesthesia: General Drains: None Fluids: 1100mL IVF Patient to: PACU Patient Condition: Fair Date/Time of Procedure: SEE SURGICAL CARE RECORD Shamar Taylor MD Sep 02, 2016 17:42
[2016-09-02] MEDS: MELATONIN 5 MG TAB PO SCH (22:28)
[2016-09-02] MEDS: INSULIN DETEMIR 100 UNITS/ML VIAL SQ SCH (22:30)
[2016-09-03] VITALS (8 sets, daily range): BP systolic 95–169; BP diastolic 48–81; PULSE 77–97; RESP 16–18; TEMP 97.7–100.9; O2SAT 92–100
[2016-09-03] MEDS: CHLORHEXIDINE GLUCONATE 2 % 1 PACK (2 CLOTHS) TOP SCH (04:00)
[2016-09-03] MEDS: POTASSIUM CHLORIDE INJ 20 MEQ in LACTATED RINGER'S 1000 ML INJ 1,000 ML IV SCH ×2 (04:17→23:03)
[2016-09-03] MEDS: LEVOTHYROXINE SODIUM 150 MCG TAB PO SCH (05:09)
[2016-09-03] MEDS: INSULIN ASPART SUPPLEMENTAL SCALE SQ SCH ×4 (05:11→20:17)
[2016-09-03] MEDS: HYDROCORTISONE 1% CREAM 30 GM TOPICAL SCH ×3 (05:37→20:18)
--- NOTE | 2016-09-03 07:34 | MP ---
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 PROCEDURE Right [id number] amputation ATTENDING SURGEON Danny Taylor MD COTTON AGENT SURGEON Arthur Guaman ANESTHESIA General INDICATIONS Ms. Lemos is a 61 year-old lady with extensive tissue loss and no revascularization or salvage options after multiple consultations and thorough discussion with the patient and her and both children. She was offered above knee amputation and consult was obtained from the children because of the patient has altered mental status. DESCRIPTION OF PROCEDURE Informed consent was obtained from the patient's daughter who is the legal next of kin and health care power of corporate associate. She was taken to the operating room, placed supine on the operating room table and an appropriate time out was taken to ensure the patient's identify, operative site and planned procedure. A gram of Vancomycin was initiated prior to the skin incision and will be discontinued after a single preoperative dose. Vancomycin was chosen because of the patient's preoperative length of stay exceeding 48 hours. Everyone in the room agreed and we proceeded. Her right leg was prepped and draped. An incision made above the knee, carried down through the subcutaneous tissue with electrocautery. The muscle was divided anteriorly and posterior and we divided down to the femur. The femur was divided with an oscillating saw the posterior muscle was divided. The major blood vessels were clamped and divided between clamps. The posterior muscle was divided and the leg was passed off the table as specimen. The specimen obtained was shortened. The superficial femoral artery and femoral vein were suture ligated and the wound was then irrigated, made hemostatic and closed with 2-0 Polysorb, 3-0 Polysorb and skin che. Sponge and needle counts were correct at the end of the case. I was present and scrubbed for the entire procedure. MD MIAN Mensah/TORREY /11:06 PM /7:24 AM
[2016-09-03] MEDS: MUPIROCIN 2% OINT 22 GM TUBE TOPICAL SCH ×2 (09:00→20:49)
[2016-09-03] MEDS: SODIUM CHLORIDE 0.9% FLUSH 5 ML FLUSH IV FLUSH SCH ×2 (09:00→20:17)
[2016-09-03] MEDS: LACTOBACILLUS ACIDOPHILUS TAB PO SCH ×3 (09:00→17:00)
[2016-09-03] MEDS: LIOTHYRONINE SODIUM 5 MCG TAB PO SCH (09:47)
[2016-09-03] MEDS: VALPROIC ACID 250 MG CAP PO SCH ×2 (09:47→20:16)
[2016-09-03] MEDS: VANCOMYCIN 500 MG VIAL (FOR ORAL USE ONLY) PO SCH ×4 (09:47→20:16)
[2016-09-03 10:11] LABS: HEMATOCRIT 22.9 % (35.0-46.0); MEAN CELL VOLUME 76.5 FL (80.0-100.0); MEAN CORPUSCULAR HEMOGLOBIN 24.9 PG (27.0-34.0); MEAN CORPUSCULAR HGB CONC 32.6 % (32.0-36.0); PLATELET COUNT 482 TH/MM3 (150-450); RED BLOOD COUNT 2.99 MIL/MM3 (4.00-5.30); RED CELL DISTRIBUTION WIDTH 18.1 % (11.6-17.2)
[2016-09-03 10:17] LABS: REVIEW FLAG FINAL
[2016-09-03 10:36] LABS: BICARBONATE 41.2 MEQ/L (21.0-32.0); POTASSIUM 3.7 MEQ/L (3.5-5.1)
--- NOTE | 2016-09-03 13:08 | PD.HHIRCNE ---
Patient History Record/History Review Medical Information Review: Hx of present illness Reason for Referral: The patient is a 61 year old unknown handed female with a history of multiple admissions most recently on 07/15/2016, where she was admitted to [facility] with altered mental status. Once stable, she was transferred to [facility] but was Halicatted back for unresponsiveness prior to undergoing a right AKA. This patient has a history of cellulitis, severe PVD, DM, cardiomyopathy and more recently acute encephalopathy. She was on numerous medications for sedation or delirium control, but the majority were stopped to ensure that the medications were not a contributing factor. She is still prescribed Valproic Acid 250 BID, although nursing reports that the patient has not taken the medications due to questionable swallowing difficulties. Her laboratory results show several abnormalities that may be contributing to her delirium state, specifically ABG PCO2, which were not elevated in June of this year. Because of her neurocognitively compromised state, this patient is referred for baseline neurobehavioral status examination to assess cognitive, behavioral and emotional aspects of her presentation and to provide treatment recommendations. Neuropsych Precautions: Neurocognitively compromised state. Past Surgical/Medical History Past Surgery: Yes Major surgery in last 100 days: Yes Hx Anesthesia Reactions: No Hx Orthopedic Surgery: No Hx Cardiac Surgery: No Hx Chest Surgery: No Hx Abdominal Surgery: No Hx Genitourinary Surgery: No Hx Gynecologic Surgery: No Hx Endocrine Surgery: No Hx Eye Surgery: No Hx Ear Surgery: No Hx Oral Surgery: No History of Transplant: No Hx of Neuro Prob: No Hx of Musculoskeletal Pro: Yes Hx Arthritis: Yes Hx Osteoporosis: Yes Hx Neck Problems: No Hx Back Problem: Yes Hx of Cardiovascular Prob: Yes Hypertension (High Blood Press: Yes Hx Clotting Problems: Yes Hx Chest Pain: No Hx Lightheadedness: No Hx Congestive Heart Failure: No Syncope (Fainting): No Hx of Respiratory Problem: No Hx of GI Problems: No Hx Heartburn: No Hx Gastroesophageal Reflux: No Hx Hiatal Hernia: No Hx Ulcer: No Hx Liver Disease: No Hx Gallbladder Disease: No Hx Inflammatory Bowel Disease: No Hx of Problems: No Hx Renal Disease: No Hx Renal Failure: No Hx Kidney Transplant: No Hx Kidney Stones: No Hx Nephrectomy: No Hx Infection: No Hx Pelvic Problems: No Hx Genital Problems: No ?: Not Hx of Immuno Disor: No Hx Autoimmune Disease: No Hx of Endocrine Problems: Yes Hx Thyroid Disease: Yes Hx Diabetes: Yes Does Patient Currently Take Gl: No Hx of Eye Probl: Yes (reading glasses) Hx of Hearing or Ear Problems: No Hx Dental Problems: No Hx Psychiatric Problems: Yes Hx Anxiety: Yes Hx Depression: Yes Hx Blood Dyscrasias: No Hx Sickle Cell Disease: No Hx Thrombocytopenia: No Hx Hemophilia: No Hx of Heparin Induced Thr: No Hx of MDRO: No Hx of MRSA: No Hx of VRE: No Hx of CDIFF: No Hx of Tuberculosis: No Hx Chicken Pox: No Hx Measles: No Hx of Body/Medical Devices: No Hx Pacemaker: No Hx Internal Defibrillator: No Hx Joint Replacement: No Insulin Pump: No Hx Arteriovenous Shunt: No Hx Dental Implants: No Hx Eye Prosthesis: No Genitourinary Device: No Genitourinary Ostomy: No Gastrointestinal Ostomy: No Blood Transfusion History Will receive Blood /Blood prod: Yes Hx Blood Transfusions: No Medication Active Medications Vancomycin HCl (Vancomycin Inj) 1,000 mg STK-MED ONCE OTHER Last administered on 09/02/16t 16:51; Admin Dose 1,000 MG; Start 09/02/16 at 16:51; Stop 09/02/16 at 16:59; Status DC Mental Status Assessment Orientation: oriented to Self, disoriented to Place, disoriented to Time, disoriented to Situation Mental Status: Impaired: Thought processing, Language/Interactions, Attention, Learning/Memory, Problem-Solving, Visuospatial/Construction, Self-regulation, Other Observation The patient is alert but oriented only to person. She was unable to participate in any manner with the neurobehavioral examination. She agitated, restless and was unable to follow even simple commands, and redirection did not facilitate her compliance. Impression Severe neurocognitive compromise Adjustment/Coping Assessment Adjustment/Coping: Not Assessed: Depression, Anxiety, Pain, Apathy, Awareness, Insight Observation The patients thought content was unable to be determined, and the patients thought processes were illogical and perseverative. The patients mood was agitated, and the affect was restless. LTG Status: Deferred STG Status: Deferred Team Members: Neuropsychologist Behavior Assessment Agitation: Severe Treatment Engagement: No effort Observation Behaviorally, the patient demonstrated signs of agitation, impulsivity and disinhibition. There was ample evidence of a formal thought disorder and psychosis. LTG - Status: Deferred STG Status: Deferred Team Members: Neuropsychologist Diagnosis/Discharge Plan Impression Neurobehavioral status observations in combination with what is known about her clinical history certainly point to current diagnosis of delirium, likely attributable to metabolic issues, in this case likely CO2 retention issues. As she presents today, published guidelines preclude making the diagnosis of dementia (now referred to as major neurocognitive disorder) in the setting of delirium. However, preexisting cognitive deficits (either classified as major or minor neurocognitive disorder) are the strongest risk factor for delirium, indicating that her baseline neurocognitively compromised state made her more susceptible to delirium development in the presence of the right metabolic aberration. 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 Diagnosis: (1) Delirium due to another medical condition Status: Acute (2) Minor neurocognitive disorder Status: Acute Maximizing acute care outcome Obviously, management of her delirium is the most pressing neurobehavioral concern, and medical staff has been diligent towards this goal by eliminating any and all medications that may be contributing to this condition. The use of antiseizure medications such as Valproic Acid and/or carbamazepine could be beneficial, unless medically contraindicated, in providing sedating side- effects (with dosages adjusted on the basis of clinical response and not therapeutic level) that may not secondarily contribute to her delirium, although there are contraindications of hepatic dysfunction which need to be monitored. Also investigation of underlying metabolic contributions are needed. Going forward, it is recommended that the patient be monitored for ongoing behavioral impulsivity as the medical condition evolves. This patient s neuropathological challenges may limit their recovery potential going forward , and these challenges will require specialized therapeutic skills to maximize outcome. Discharge Planning Anticipated Problems Ongoing areas of concern will include behavioral impulsivity, lack of insight and judgment, which may or may not improve with time and treatment. Presently , the patient is not following commands. Treatment Plan This clinician will continue to follow with you throughout the course of this patients rehabilitation treatment, and I will be available to meet with the patients family/support system to facilitate their understanding and the ongoing care of their family member. The goals of neuropsychological intervention shall be both educational and supportive to the family/support system as is deemed clinically appropriate. Discharge Needs To be determined. Thank you Thank you for the opportunity to assist in this patients care. Nasim Paul, Ph.D., ABPP Board Certified in Clinical Neuropsychology [place] [employer] [place] Licensed Psychologist #[id number] Nasim Paul PhD Sep 03, 2016 1:08 pm
[2016-09-03 15:52] LABS: LYME IGG IMMUNOBLOT CSF None Detected bands (None Detected); LYME IGM IMMUNOBLOT CSF None Detected bands (None Detected)
[2016-09-03] MEDS: MORPHINE SULFATE 4 MG/ML INJ IM PRN ×2 (17:02→22:34)
[2016-09-03 17:53] LABS: VDRL CSF NON-REACTIVE (())
--- NOTE | 2016-09-03 19:15 | HHI.PR ---
Subjective Remarks Follow up for lower ext gangrene, PVD, wound, severe neuropathic pain, C. Diff. Ms. Lemos's mentation continues to decline, unfortunately. She continues to scream. When asked a question, she would repeat some of the words. Once in a while she gives short answers. Other times she only makes gibberish sound. Family members at bedside. Objective Vitals Vital Signs Date Time Temp Pulse Resp B/P Pulse Ox O2 Delivery O2 Flow Rate FiO2 09/03/16 16:00 100.9 89 18 114/81 95 09/03/16 12:00 99.0 96 18 125/53 98 09/03/16 10:35 100 Nasal Cannula 5.00 09/03/16 08:00 Nasal Cannula 2.00 09/03/16 08:00 99.2 77 18 117/56 100 09/03/16 04:00 97.7 78 18 108/54 98 09/03/16 00:00 98.0 79 16 95/48 95 09/02/16 20:00 97.6 87 18 92/54 100 09/02/16 20:00 Nasal Cannula 2.00 I/O 09/02/16 09/02/16 09/02/16 09/03/16 09/03/16 09/03/16 07:00 15:00 23:00 07:00 15:00 23:00 Intake Total 211 ml 0 ml 1706 ml 100 ml 0 ml Output Total 250 ml 650 ml 550 ml 475 ml Balance 211 ml -250 ml 1056 ml -450 ml -475 ml Intake Oral 0 ml 120 ml 100 ml 0 ml IV Total 211 ml 0 ml 486 ml Other 1100 ml Output Urine Total 250 ml 450 ml 550 ml 475 ml Estimated Blood Loss 200 ml # Bowel Movements 0 0 0 1 Result Diagram: 09/03/1612 09/03/16 0912 Imaging Last Impressions Lumbar Puncture Fluoroscopy 08/29/16 0000 Signed Impressions: Service Date/Time: Monday, August 29, 2016 16:39 - CONCLUSION: Uncomplicated fluoroscopically guided lumbar puncture with pressures as above. Alfredo Etienne MD Brain MRI 08/25/16 0000 Signed Impressions: Service Date/Time: Thursday, August 25, 2016 19:01 - CONCLUSION: Chronic atrophic and small vessel ischemic changes without any evidence for acute hemorrhage or mass effect. Smith Boateng MD Chest X-Ray 08/19/16 0000 Signed Impressions: Service Date/Time: Friday, August 19, 2016 18:46 - CONCLUSION: 1. Bibasilar streakiness consistent with atelectasis and/or infiltrates. 2. Cardiomegaly. 3. Poor inspiratory result. Shamar Banuelos MD Upper Extremity Ultrasound 07/28/16 0000 Signed Impressions: Service Date/Time: Thursday, July 28, 2016 14:34 - CONCLUSION: No DVT is identified within the right upper extremity. Alfredo Eng MD Head CT 07/19/16 0000 Signed Impressions: Service Date/Time: Tuesday, July 19, 2016 09:58 - CONCLUSION: No acute intracranial findings. João Otoole MD Foot X-Ray 07/16/16 0000 Signed Impressions: Service Date/Time: Saturday, July 16, 2016 17:34 - CONCLUSION: 1. Nonspecific soft tissue swelling. No acute bone destruction demonstrated. 2. Mild talonavicular and navicular/cuneiform degenerative changes. 3. Second through fifth hammertoe. 4. Moderate-sized heel spur. Alfredo Sneed MD Objective Remarks GENERAL: Lethargic, wakes up on verbal and light physical touch, Mumbles. Does not have any coherent thought process. SKIN: Warm and dry. HEAD: Normocephalic. EYES: No scleral icterus. No injection or drainage. NECK: Supple, trachea midline. No JVD or lymphadenopathy. CARDIOVASCULAR: Regular rate and rhythm without murmurs, gallops, or rubs. RESPIRATORY: Breath sounds equal bilaterally. No accessory muscle use. GASTROINTESTINAL: Abdomen soft, non-tender, nondistended. MUSCULOSKELETAL: Left foot has multiple toes with gangrenous changes. Right foot with digit 3 gangrenous changes. Both lower ext above ankle wrapped in dressing. BACK: Nontender without obvious deformity. No CVA tenderness. Procedures 08/08/2016 PROCEDURE 1. Selective right lower extremity arteriogram. 2. Balloon angioplasty with a 4 mm x 2200 mm and then a 5 x 200 mm Medtronic angioplasty balloon of the right superficial femoral and proximal popliteal artery. 07/31/2016 Excision and debridement of both legs, extensive necrotic wounds approximately 30 x 25 cm area on each side, total 1000 to 1100 cm square, down to the subcutaneous tissue and tendon on the left side. A/P Problem List: (1) Cellulitis of left lower extremity ICD Code: L03.116 Status: Acute (2) Delirium due to another medical condition ICD Code: F05 Status: Acute (3) Neuropathic pain ICD Code: M79.2 Status: Acute Assessment and Plan Pt. is 61-year-old female, with multiple admissions, with history of cellulitis of legs, severe PVD, diabetes and cardiomyopathy EF of 30% was at the rehabilitation facility when she became more altered lethargic and hypoxic. Rapid response team was called and transferred patient to ICU. In the ICU patient remains confused and lethargic responsive to pain with a stable blood pressure and saturation of 100% on 40% face mask. Patient has improved and was transferred to regular medical/ surgical unit. During this hospitalization, plastic surgery, podiatry, vascular surgery followed this patient. Both podiatry and plastic surgery recommended hyperbaric treatments and future skin graft if wound beds are healed. Vascular surgery recommended against amputation and stated that her leg blood supply is adequate. Unfortunately, hyperbaric treatments can only be done in the outpatient setting if patient can go home. It cannot be done while in-patient or from SNF due to financial constraints. Our attempt to transfer patient to [facility] was not successful. - Chronic lower ext wound - s/p right AKA. - Peripheral vascular disease - Severe neuropathic pain - Severe acute Delirium - Does not have an IV access. - Will give 2mg of Morphine [id number] PRN and Haldol 1mg Q6hrs PRN. - Discussed at length with Palliative care physician. - [facility]. I agree that we should start looking at a LTAC placement option. - Since hyperbaric tx is not a viable option and patient cannot be discharged home, we looked into alternatives. 08/21/2016 - I discussed with bank compliance officer (Dr. Altman) regarding an FDA approved topical O2 therapy - Numobag. - Numobag was developed by [employer] and has been used in the and civilian cases successfully. - I discussed with patient's daughter (Tanisha) and also with the company ( [employer]). - We will initiate the process of obtaining numobag and starting topical O2 therapy while patient is in the hospital. - If Patient improves enough to be able to go home or SNF, we can continue Numobag. - Both Dr. Altman ([facility]) and Nurse intermediate manager on the floor agreed with our plan to initiate Numobag. - C. Diff colitis - All abx discontinued and patient is currently on Vancomycin PO. - acute encephalopathy - Hx of seizure activity - continue Valproic acid 250mg Q12hrs. Neurology reconsulted. MRI brain negative for any acute findings. - Patient underwent LP and MRI study - no significant findings. - UTI - Microbiology grew ESBL - Received Doxycycline -Diabetes mellitus - Continue Levemir 5 units QHS and sliding scale insulin. Monitor for hypoglycemia. -Hypothyroidism - continue levothyroxine 150 g daily. - Hypertension - Cardiomyopathy - Hold anti-hypertensives for now. -Hx of seizure activity - continue Valproic acid 250mg Q12hrs. Full code. Restart Heparin SQ on 09/04/2016. Devi Alejo DO Sep 03, 2016 19:15
[2016-09-03] MEDS: MELATONIN 5 MG TAB PO SCH (20:15)
[2016-09-03] MEDS: HALOPERIDOL LACTATE 5 MG/ML AMP IM PRN (20:16)
[2016-09-03] MEDS: INSULIN DETEMIR 100 UNITS/ML VIAL SQ SCH (20:17)
--- NOTE | 2016-09-03 21:25 | HHI.HCPN ---
Reason for visit a. To assist with evaluation and management of symptoms including: delirium , pain, lethargy. b. To assist medical decision maker(s) with: better understanding of current medical conditions; weighing benefits/burdens of medical treatment options; making medical treatment decisions. . Subjective/Interval History Ms. Lemos underwent Right AKA on 09/02/16. She had a period of unresponsiveness and a Halicat was called. Dr. Alejo discontinued possible sedating meds including olanzapine; gabapnetin; quetipaine; methadone; and clonazepam. At time of my visit today, patient is severely agitated and delirious. Most of her words are gibberish. When she does say understandable words, there is no coherent thought process. I don't sense hallucinations, but she she can be angry at family. She is unable to let us know if she is painful. She does not appear to be guarding her right stump. Patient is unable to answer questions regarding pain; sob; nausea; confusion. . Family/friend interactions Son (Kalpesh), first , and first 's current are at bedside. Kalpesh is very distraught -- both angry and tearful-- seeing his mother so agitated. I bring Kalpesh out of the room. We discuss the course of events again. I bring him to a computer and we review her diagnostic test results, medication changes , etc. I answer all questions as best I can. . Advance Directives Living Will: Never completed Health Care Surrogate: Never completed Durable Power of Machine Repairer Maintenance: Completed, but not made available Advance Directive Specifics Date completed: Family reports there is a completed POA document -- not available to us at this time. Unknown date. . Health Care Surrogate(s): is reportedly the health care POA. Even if there is no documented designation of health care POA or surrogate, he would serve as proxy. Spoke with in person on 08/12/16. He tells me how he knows nothing about health care and is fine if patient's daughter Blanche serves as proxy. As does not want to serve, it would fall to both son and daughter. Patient 's son also opts out (as he is out of town often) therefore leaving decision- making to patient's daughter Blanche. . Documented care wishes: No documented wishes of patient's expressed health care goals/preferences. . Objective Vital Signs Date Time Temp Pulse Resp B/P Pulse Ox O2 Delivery O2 Flow Rate FiO2 09/03/16 20:00 98.6 97 18 169/79 95 09/03/16 16:00 100.9 89 18 114/81 95 09/03/16 12:00 99.0 96 18 125/53 98 09/03/16 10:35 100 Nasal Cannula 5.00 09/03/16 08:00 Nasal Cannula 2.00 09/03/16 08:00 99.2 77 18 117/56 100 09/03/16 04:00 97.7 78 18 108/54 98 09/03/16 00:00 98.0 79 16 95/48 95 Intake & Output 09/03/16 09/03/16 07:00 19:00 Intake Total 220 ml 0 ml Output Total 900 ml 475 ml Balance -680 ml -475 ml Intake Oral 220 ml 0 ml Output Urine Total 900 ml 475 ml # Bowel Movements 0 1 . Physical Exam CONSTITUTIONAL/GENERAL: This is an adequately nourished patient. Extremely agitated, calling out, speaking gibberish most of the time, unable to follow most commands. SKIN: No jaundice. Ecchymoses on upper extremities. Right AKA stump dressing clean and dry. Dry, gangrenous changes are noted on the digits of the left foot. CARDIOVASCULAR: Regular rate and rhythm without gallops, or rubs. 2/6 systolic murmur heard. RESPIRATORY/CHEST: Symmetric, unlabored respirations. Clear to auscultation. Breath sounds equal bilaterally. No wheezes, rales, or rhonchi. GASTROINTESTINAL: Abdomen obese, soft, non-tender, nondistended. No hepato- splenomegaly, or palpable masses. No guarding. Bowel sounds present. MUSCULOSKELETAL: Edematous left lower extremity. Dry gangrenous changes to the digits of left foot. Thick-appearing heel eschar. NEUROLOGICAL: Moves all extremities. Extemely agitated , delirious, not making sense. PSYCHIATRIC: Delirious. . Diagnostic Tests Laboratory Laboratory Tests Test 09/01/16 09/02/16 09/02/16 09/03/16 20:23 07:59 08:54 09:12 Blood Type A POSITIVE Antibody Screen POSITIVE Antibody Identification Anti-Madeleine Direct Antiglobulin Test NEGATIVE (Nickolas) (NEGATIVE) Crossmatch Leukocyte-Reduced Red Blood Cells Blood Bank Comment White Blood Count 13.9 TH/MM3 10.0 TH/MM3 (4.0-11.0) (4.0-11.0) Red Blood Count 3.28 MIL/MM3 2.99 MIL/MM3 (4.00-5.30) (4.00-5.30) Hemoglobin 7.8 GM/DL 7.5 GM/DL (11.6-15.3) (11.6-15.3) Hematocrit 25.4 % 22.9 % (35.0-46.0) (35.0-46.0) Mean Corpuscular Volume 77.4 FL 76.5 FL (80.0-100.0) (80.0-100.0) Mean Corpuscular Hemoglobin 23.8 PG 24.9 PG (27.0-34.0) (27.0-34.0) Mean Corpuscular Hemoglobin 30.7 % 32.6 % Concent (32.0-36.0) (32.0-36.0) Red Cell Distribution Width 17.6 % 18.1 % (11.6-17.2) (11.6-17.2) Platelet Count 440 TH/MM3 482 TH/MM3 (150-450) (150-450) Mean Platelet Volume 6.6 FL 6.5 FL (7.0-11.0) (7.0-11.0) Neutrophils (%) (Auto) 80.5 % (16.0-70.0) Lymphocytes (%) (Auto) 11.0 % (9.0-44.0) Monocytes (%) (Auto) 6.0 % (0.0-8.0) Eosinophils (%) (Auto) 2.2 % (0.0-4.0) Basophils (%) (Auto) 0.3 % (0.0-2.0) Neutrophils # (Auto) 11.2 TH/MM3 (1.8-7.7) Lymphocytes # (Auto) 1.5 TH/MM3 (1.0-4.8) Monocytes # (Auto) 0.8 TH/MM3 (0-0.9) Eosinophils # (Auto) 0.3 TH/MM3 (0-0.4) Basophils # (Auto) 0.0 TH/MM3 (0-0.2) CBC Comment AUTO DIFF Differential Comment AUTO DIFF CONFIRMED Platelet Estimate HIGH (NORMAL) Platelet Morphology Comment NORMAL (NORMAL) Sodium Level 144 MEQ/L 144 MEQ/L (136-145) (136-145) Potassium Level 3.5 MEQ/L 3.7 MEQ/L (3.5-5.1) (3.5-5.1) Chloride Level 98 MEQ/L 101 MEQ/L (98-107) (98-107) Carbon Dioxide Level 41.2 MEQ/L 41.2 MEQ/L (21.0-32.0) (21.0-32.0) Anion Gap 5 MEQ/L (5-15) 2 MEQ/L (5-15) Blood Urea Nitrogen 19 MG/DL (7-18) 17 MG/DL (7-18) Creatinine 1.13 MG/DL 0.85 MG/DL (0.50-1.00) (0.50-1.00) Estimat Glomerular Filtration 49 ML/MIN (>89) 68 ML/MIN (>89) Rate Random Glucose 78 MG/DL 62 MG/DL (74-106) (74-106) Calcium Level 7.9 MG/DL 8.1 MG/DL (8.5-10.1) (8.5-10.1) Blood Gas Puncture Site LT RADIAL Blood Gas Patient Temperature 98.6 Blood Gas HCO3 39 mmol/L (22-26) Blood Gas Base Excess 14.0 mmol/L (-2-2) Blood Gas Oxygen Saturation 91 % (90-100) Arterial Blood pH 7.42 (7.380-7.420) Arterial Blood Partial 62 mmHg (38-42) Pressure CO2 Arterial Blood Partial 67 mmHg Pressure O2 (61-120) Arterial Blood Oxygen Content 10.0 Vol % (12.0-20.0) Arterial Blood 1.5 % (0-4) Carboxyhemoglobin Arterial Blood Methemoglobin 0.7 % (0-2) Blood Gas Hemoglobin 7.8 G/DL (12.0-16.0) Oxygen Delivery Device NASAL CANNULA Blood Gas Inspired Oxygen 5 % . Result Diagram: 09/03/1691109/03/16911 Imaging Last Impressions Lumbar Puncture Fluoroscopy 08/29/16 0000 Signed Impressions: Service Date/Time: Monday, August 29, 2016 16:39 - CONCLUSION: Uncomplicated fluoroscopically guided lumbar puncture with pressures as above. Alfredo Etienne MD Brain MRI 08/25/16 0000 Signed Impressions: Service Date/Time: Thursday, August 25, 2016 19:01 - CONCLUSION: Chronic atrophic and small vessel ischemic changes without any evidence for acute hemorrhage or mass effect. Smith Boateng MD Chest X-Ray 08/19/16 0000 Signed Impressions: Service Date/Time: Friday, August 19, 2016 18:46 - CONCLUSION: 1. Bibasilar streakiness consistent with atelectasis and/or infiltrates. 2. Cardiomegaly. 3. Poor inspiratory result. Shamar Banuelos MD Upper Extremity Ultrasound 07/28/16 0000 Signed Impressions: Service Date/Time: Thursday, July 28, 2016 14:34 - CONCLUSION: No DVT is identified within the right upper extremity. Alfredo Eng MD Head CT 07/19/16 0000 Signed Impressions: Service Date/Time: Tuesday, July 19, 2016 09:58 - CONCLUSION: No acute intracranial findings. João Otoole MD Foot X-Ray 07/16/16 0000 Signed Impressions: Service Date/Time: Saturday, July 16, 2016 17:34 - CONCLUSION: 1. Nonspecific soft tissue swelling. No acute bone destruction demonstrated. 2. Mild talonavicular and navicular/cuneiform degenerative changes. 3. Second through fifth hammertoe. 4. Moderate-sized heel spur. Alfredo Sneed MD . Procedures 07/31/2016 Excision and debridement of both legs, extensive necrotic wounds approximately 30 x 25 cm area on each side, total 1000 to 1100 cm square, down to the subcutaneous tissue and tendon on the left side. 08/08/2016 1. Selective right lower extremity arteriogram. 2. Balloon angioplasty with a 4 mm x 2200 mm and then a 5 x 200 mm Medtronic angioplasty balloon of the right superficial femoral and proximal popliteal artery. Note that patient had these additional procedures on prior admissions: * Bilateral lower extremity wound debridements 05/15/16 * Bilateral LE Debridements and Left SFA angioplasty on 06/23/16 Right AKA 09/02/16 . Assessment and Plan Disease Oriented Problem List: (1) complicated/infected/necrotic foot and leg wounds (2) PVD (peripheral vascular disease) Comment: With infected/nonhealing wounds and gangrene (3) DM (diabetes mellitus), type 2, uncontrolled, periph vascular complic (4) CHF (congestive heart failure) (5) Hypertension (6) Cellulitis of left lower extremity (7) Delirium due to another medical condition (8) VT (ventricular tachycardia) (9) Ulcer of heel and midfoot (10) Hypothyroidism (11) Anemia (12) Urinary tract infection Comment: Cx of 08/11/16 growing out E coli ESBL . 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 Had AKA on 09/02/16 so likely has post-op pain. . . (2) Confusion 0-10 Scale: Unable to quantify Comment: Confusion is probably multifactorial. Patient apparently was cognitively sharp up until about 05/13/2016. Has had intermittent confusion since including hallucinations and disorientation. Now with severe agitated delirium. . . (3) Lethargy 0-10 Scale: Unable to quantify Comment: Was lethargic 09/02/16 and multiple sedating meds were stopped. Now extremely agitated. . (4) Delirium 0-10 Scale: Unable to quantify Comment: probably multifactorial, daughter feels this is worsening in the past 5 days. Pertinent Non-Medical Issues Psychosocial: Psychosocial support from and daughter (lives locally). Son in [place] is very involved, but is often working out of the country. Spiritual: Worship. Had been a member of [employer]. Legal: Family reports there is a completed POA for finance and health care. and patient's son are OK yielding decision making to patient's daughter. Ethical issues impacting care: Patient is currently incapacitated due to delirium. . Important Contacts * Alfreod Lemos (spouse) [phone] * Kalpesh (son) [phone] * Blanche (daughter) [phone] . Prognosis The patient has severe peripheral vascular disease and accompanying refractory lower extremity wounds. Wounds have worsened in spite of aggressive care beginning in March 2016. She has undergone re-vascularization procedures on both lower extremities since May. Wounds went on to involve tendon structures in the feet. She went to right sided AKA on 09/02/16. We have not been able to control her delirium which is having a profound effect on prognosis. She is either extremely agitated / confused or on a very small amount of medication becomes overly lethargic. Prognosis will depend also on whether or not she can heal well at the stump and whether or not the LLE wounds can be controlled. . . Code Status: Full Code Plan * Decision making: Patient is currently incapacitated to make her own health care decisions. She is confused and it is unclear if/when she will regain capacity. Although her husbandJohnis technically her health care decision- maker, he and the patient's son have both opted out leaving decision-making to the patient's daughter Blanche. * * CODE STATUS: FULL CODE * * Goals of medical treatment: Currently desire ongoing aggressive care. * * Confusion: Her confusion/delirium is severe with terrible agitation. We are unable to find a cause. Efforts to control agitation with even small amounts of sedating medication appear to lead to oversedation. Given her elevated Fosston light chains, I have ordered a viscosity study. I am wondering if high viscosity could explain combination of poor wound healing AND mental status changes. Recommend considering heme/onc input to see if Fosston light chain elevation is just due to infection or if amyloidosis, Waldenstrom's ; Myeloma, etc, might be playing a role here. * * Pain: Pain appears mostly secondary to ischemic pain and wound pain in the lower extremities and now post-op pain from amputation of 09/02/16. She may also have some lower extremity pain secondary to diabetic neuropathy (now off her gabapentin) . Patient is unable to quantify or qualify her pain adequately due to her cognitive challenges. She apparently had a negative reaction to fentanyl. She became too sedated on higher dose gabapentin. Very low dose methadone was stopped on 09/02/16 due to oversedation. . PRN IV morphine order now in palce. . when she is agitated, it is difficult to differentiate delirium from pain. * * Palliative care has felt like a failure in regards to helping to manage symptoms in this very challenging and sad case. We either have the patient agitated/confused/miserable, OR, on relatively low doses of medications, have her lethargic. Our team cannot explain why her symptoms are so refractory. From a palliative care team perspective, we would encourage transfer to a tertiary care center. Dr. Alejo tells me he has tried multiple times and is unable to find an accepting physician. We are uncertain what to try next. * * Spoke with Dr. Alejo. Discussed my reasons for checking viscosity level and recommended heme/onc input. He provided an update on failed attempts to arrange for transfer to a tertiary care center. * * Palliative care will continue to follow the patient to assist with symptom management and to further clarify goals of medical treatment as the clinical course evolves. . Time Spent Total Floor Time (mins): 40 (Total time included chart review, patient exam, bedside discussion with family, review of diagnostic test results with family, telephone discussion/collaboration with Dr. Alejo. ) Face to Face Time (mins): 10 >50% Counseling/Coord of Care: Yes Attestation To help prompt me to consider important information that might be impacting today's encounter and assessment, information from prior notes written by myself or my colleagues may have been "brought forward" into today's note. My signature on this note, however, is an attestation that I personally performed the exam, history, and/or decision-making noted today, and, unless otherwise indicated, the interactions with patient, family, and staff as well as the review of records all occurred today. I also attest that the listed assessment and stated plan reflect my best clinical judgment today based on the combination of historical information, prior notes, and today's exam/ interactions. When time spent is documented, it refers only to time spent today by the signer, or if indicated, combined time spent today by collaborating physician/nurse practitioner. . Alton Ohara MD Sep 03, 2016 21:25
[2016-09-04] VITALS: BP 128/62; PULSE 97; RESP 18; TEMP 98.4; O2SAT 94
[2016-09-04] MEDS: HALOPERIDOL LACTATE 5 MG/ML AMP IM PRN ×2 (03:12→09:17)
[2016-09-04] MEDS: MORPHINE SULFATE 4 MG/ML INJ IM PRN ×4 (03:55→21:49)
[2016-09-04 04:00] VITALS: BP 112/55; PULSE 91; RESP 18; TEMP 98.7; O2SAT 100
[2016-09-04] MEDS: HYDROCORTISONE 1% CREAM 30 GM TOPICAL SCH ×3 (04:00→21:51)
[2016-09-04] MEDS: LEVOTHYROXINE SODIUM 150 MCG TAB PO SCH (06:00)
[2016-09-04] MEDS: INSULIN ASPART SUPPLEMENTAL SCALE SQ SCH ×4 (06:43→21:00)
[2016-09-04 08:00] VITALS: BP 130/58; PULSE 97; RESP 18; TEMP 97.3; O2SAT 90
[2016-09-04] MEDS: SODIUM CHLORIDE 0.9% FLUSH 5 ML FLUSH IV FLUSH SCH ×2 (09:00→21:00)
[2016-09-04] MEDS: MUPIROCIN 2% OINT 22 GM TUBE TOPICAL SCH ×2 (09:00→21:00)
[2016-09-04] MEDS: LIOTHYRONINE SODIUM 5 MCG TAB PO SCH (09:06)
[2016-09-04] MEDS: LACTOBACILLUS ACIDOPHILUS TAB PO SCH ×3 (09:06→18:00)
[2016-09-04] MEDS: VANCOMYCIN 500 MG VIAL (FOR ORAL USE ONLY) PO SCH ×4 (09:07→21:49)
[2016-09-04] MEDS: VALPROIC ACID 250 MG CAP PO SCH (09:07)
[2016-09-04] MEDS: HEPARIN SODIUM - SQ 10,000 UNITS/ML VIAL SQ SCH ×2 (09:22→21:50)
[2016-09-04 12:00] VITALS: BP 165/85; PULSE 109; RESP 18; TEMP 98.1; O2SAT 93
--- NOTE | 2016-09-04 14:57 | PD.VS.PN ---
Subjective POD #: 2 Procedure(s): R PALMER Subjective/Hospital Course Pt responded to my verbal questions but was unable to communicate if she was in pain. HD stable. Objective Vitals/I&O Date Time Temp Pulse Resp B/P Pulse Ox O2 Delivery O2 Flow Rate FiO2 09/04/16 12:00 98.1 109 18 165/85 93 09/04/16 11:12 20 09/04/16 08:00 97.3 97 18 130/58 90 09/04/16 04:00 98.7 91 18 112/55 100 09/04/16 04:00 Room Air 09/04/16 00:00 98.4 97 18 128/62 94 09/04/16 00:00 Room Air 09/03/16 21:48 92 Nasal Cannula 2.00 09/03/16 20:00 98.6 97 18 169/79 95 09/03/16 20:00 Room Air 09/03/16 16:00 100.9 89 18 114/81 95 09/04/16 09/04/16 09/04/16 07:00 15:00 23:00 Intake Total 100 ml Output Total 250 ml Balance -150 ml Exam: R PALMER dressing removed and che intact Minimal drainage on medial aspect Assessment and Plan Plan Healing well after R PALMER Ok to use compression (JOYCE, stump paint trimmer pipe bowls) . Shamar Taylor MD Sep 04, 2016 14:57
--- NOTE | 2016-09-04 15:02 | HHI.PR ---
Subjective Remarks Follow up for lower ext gangrene, PVD, wound, severe neuropathic pain, C. Diff. Patient continues to scream, incoherent thoughts and speech. Mild improvement compared to yesterday, however. She is able to identify her son by name. However , she is not able to communicate in any meaningful way. Objective Vitals Vital Signs Date Time Temp Pulse Resp B/P Pulse Ox O2 Delivery O2 Flow Rate FiO2 09/04/16 12:00 98.1 109 18 165/85 93 09/04/16 11:12 20 09/04/16 08:00 97.3 97 18 130/58 90 09/04/16 04:00 98.7 91 18 112/55 100 09/04/16 04:00 Room Air 09/04/16 00:00 98.4 97 18 128/62 94 09/04/16 00:00 Room Air 09/03/16 21:48 92 Nasal Cannula 2.00 09/03/16 20:00 98.6 97 18 169/79 95 09/03/16 20:00 Room Air 09/03/16 16:00 100.9 89 18 114/81 95 I/O 09/03/16 09/03/16 09/03/16 09/04/16 09/04/16 09/04/16 07:00 15:00 23:00 07:00 15:00 23:00 Intake Total 100 ml 0 ml 240 ml 100 ml Output Total 550 ml 475 ml 0 ml 250 ml Balance -450 ml -475 ml 240 ml -150 ml Intake Oral 100 ml 0 ml 240 ml 100 ml Output Urine Total 550 ml 475 ml 0 ml 250 ml # Bowel Movements 0 1 0 1 Result Diagram: 09/03/1612 09/03/1612 Imaging Last Impressions Lumbar Puncture Fluoroscopy 08/29/16 0000 Signed Impressions: Service Date/Time: Monday, August 29, 2016 16:39 - CONCLUSION: Uncomplicated fluoroscopically guided lumbar puncture with pressures as above. Alfredo Etienne MD Brain MRI 08/25/16 0000 Signed Impressions: Service Date/Time: Thursday, August 25, 2016 19:01 - CONCLUSION: Chronic atrophic and small vessel ischemic changes without any evidence for acute hemorrhage or mass effect. Smith Boateng MD Chest X-Ray 08/19/16 0000 Signed Impressions: Service Date/Time: Friday, August 19, 2016 18:46 - CONCLUSION: 1. Bibasilar streakiness consistent with atelectasis and/or infiltrates. 2. Cardiomegaly. 3. Poor inspiratory result. Shamar Banuelos MD Upper Extremity Ultrasound 07/28/16 0000 Signed Impressions: Service Date/Time: Thursday, July 28, 2016 14:34 - CONCLUSION: No DVT is identified within the right upper extremity. Alfredo Eng MD Head CT 07/19/16 0000 Signed Impressions: Service Date/Time: Tuesday, July 19, 2016 09:58 - CONCLUSION: No acute intracranial findings. João Otoole MD Foot X-Ray 07/16/16 0000 Signed Impressions: Service Date/Time: Saturday, July 16, 2016 17:34 - CONCLUSION: 1. Nonspecific soft tissue swelling. No acute bone destruction demonstrated. 2. Mild talonavicular and navicular/cuneiform degenerative changes. 3. Second through fifth hammertoe. 4. Moderate-sized heel spur. Alfredo Sneed MD Objective Remarks GENERAL: Alert, screaming, incoherent thought patter/speech. SKIN: Warm and dry. HEAD: Normocephalic. EYES: No scleral icterus. No injection or drainage. NECK: Supple, trachea midline. No JVD or lymphadenopathy. CARDIOVASCULAR: Regular rate and rhythm without murmurs, gallops, or rubs. RESPIRATORY: Breath sounds equal bilaterally. No accessory muscle use. GASTROINTESTINAL: Abdomen soft, non-tender, nondistended. MUSCULOSKELETAL: s/p right sided AKA. Left foot multiple toes dry necrosis, lower ext wound wrapped. BACK: Nontender without obvious deformity. No CVA tenderness. Procedures 08/08/2016 PROCEDURE 1. Selective right lower extremity arteriogram. 2. Balloon angioplasty with a 4 mm x 2200 mm and then a 5 x 200 mm Medtronic angioplasty balloon of the right superficial femoral and proximal popliteal artery. 07/31/2016 Excision and debridement of both legs, extensive necrotic wounds approximately 30 x 25 cm area on each side, total 1000 to 1100 cm square, down to the subcutaneous tissue and tendon on the left side. 09/03/2016 Right [id number]-isp-dspi amputation A/P Problem List: (1) Cellulitis of left lower extremity ICD Code: L03.116 Status: Acute (2) Neuropathic pain ICD Code: M79.2 Status: Acute Assessment and Plan Pt. is 61-year-old female, with multiple admissions, with history of cellulitis of legs, severe PVD, diabetes and cardiomyopathy EF of 30% was at the rehabilitation facility when she became more altered lethargic and hypoxic. Rapid response team was called and transferred patient to ICU. In the ICU patient remains confused and lethargic responsive to pain with a stable blood pressure and saturation of 100% on 40% face mask. Patient has improved and was transferred to regular medical/ surgical unit. During this hospitalization, plastic surgery, podiatry, vascular surgery followed this patient. Both podiatry and plastic surgery recommended hyperbaric treatments and future skin graft if wound beds are healed. Vascular surgery recommended against amputation and stated that her leg blood supply is adequate. Unfortunately, hyperbaric treatments can only be done in the outpatient setting if patient can go home. It cannot be done while in-patient or from SNF due to financial constraints. Our attempt to transfer patient to [facility] was not successful. - Chronic lower ext wound - s/p right AKA. - Peripheral vascular disease - Severe neuropathic pain - Severe acute Delirium - Continue 2mg of Morphine [id number] PRN and Haldol 1mg Q6hrs PRN. - Discussed at length with Palliative care physician on 09/03/2016. - Discussed with Neurology, ID and Vascular surgery again on 09/04/2016. Collectively, we are unable to provide any reasonable explanation for this patient's declining severe delirium. I have discussed this case with hematology/Oncology attending Dr. Cee on 09/04/2016 as well due to concern over any paraneoplastic encephalopathy. At this point, suspicion for paraneoplastic process is low. 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 Based on my discussion with neurology on 09/04/2016, I believe high dose pulse steroid therapy for 3 days would be reasonable. We could consider Solu-medrol IV 500mg BID X 3 days. - After an input from Hematology/Oncology, if no reasonable explanation can be found, we could also initiate transfer to [facility] or [facility] for a rheumatology evaluation as we do not have access to a rheumatology consult. - Will request CM to request a transfer to [facility] or [facility]. - [facility]. I agree that we should start looking at a LTAC placement option. - Since hyperbaric tx is not a viable option and patient cannot be discharged home, we looked into alternatives. - Numobag therapy is currently on hold since left leg wound looks better per vascular surgery. Also, with this degree of acute delirium, it would be difficult to do any topical O2 therapy. 08/21/2016 - I discussed with airplane first officer (Dr. Altman) regarding an FDA approved topical O2 therapy - Numobag. - Numobag was developed by [employer] and has been used in the and civilian cases successfully. - I discussed with patient's daughter (Tanisha) and also with the company ( [employer]). - We will initiate the process of obtaining numobag and starting topical O2 therapy while patient is in the hospital. - If Patient improves enough to be able to go home or SNF, we can continue Numobag. - Both Dr. Altman ([facility]) and Nurse florist manager on the floor agreed with our plan to initiate Numobag. - C. Diff colitis - All abx discontinued and patient is currently on Vancomycin PO. - UTI - Microbiology grew ESBL - Received Doxycycline -Diabetes mellitus - Continue Levemir 5 units QHS and sliding scale insulin. Monitor for hypoglycemia. -Hypothyroidism - continue levothyroxine 150 g daily. - Hypertension - Cardiomyopathy - Hold anti-hypertensives for now. - Nutrition - Consult GI for PEG tube. Start Marinol to stimulate appetite. Full code. Heparin SQ. Devi Alejo DO Sep 04, 2016 15:02
--- NOTE | 2016-09-04 15:12 | HHI.PYPN ---
Subjective Remarks Patient was seen today for psychiatric reevaluation, patient was not cooperative , disorganized, confused, completely incoherent. The few times she tried to express herself noncoherent noises came of her mouth. As per nurse patient hasn 't been so agitated today, this morning she was able to say good morning, but after that she has been trying to articulate words but nothing understandable comes from her mouth. Review of Systems ROS Limitations: Unresponsive, Uncooperative Objective Alert: Yes [place]: Person Mood: Calm, Other (unable to be assessed) Affect: Restricted Memory Intact: Comment (impaired) Hallucinations: Other (no reports) Delusions: No (unable to be assessed) Delusion Type: Other (unable to be assessed) Suicidal: Ideation (unable to be assessed) Homicidal: Ideation (unable to be assessed) Insight/Judgment unable to be assessed Vitals/IOs Vital Signs Date Time Temp Pulse Resp B/P Pulse Ox O2 Delivery O2 Flow Rate FiO2 09/04/16 12:00 98.1 109 18 165/85 93 09/04/16 04:00 Room Air 09/03/16 21:48 2.00 09/02/16 18:13 55 Intake and Output 09/03/16 09/03/16 09/04/16 08:00 16:00 00:00 Intake Total 100 ml 0 ml 240 ml Output Total 550 ml 475 ml 0 ml Balance -450 ml -475 ml 240 ml Assessment & Plan Problem List: (1) Delirium due to another medical condition Assessment & Plan: On reevaluation patient seems to be incoherent, with aphasia , unable to provide any meaningful information for the psychiatric assessment at this moment. I suggest the patient is seen by neurology. I would not suggest any standing psychotropic at this moment, but can continue when necessary IM Haldol for aggressive behavior and agitation. ICD Code: F05 Assessment & Plan Estimated LOS: days Justification for Cont. Inpt. Patient does not meet criteria for psychiatric admission at this moment Rc Joens MD Sep 04, 2016 15:12
[2016-09-04 16:00] VITALS: BP 148/70; PULSE 90; RESP 18; TEMP 97.5; O2SAT 93
--- NOTE | 2016-09-04 16:15 | HHI.PR ---
Subjective Remarks s/p right aka very agitated and confused goes from speaking and answering to yelling and being incoherent. Objective Vital Signs Date Time Temp Pulse Resp B/P Pulse Ox O2 Delivery O2 Flow Rate FiO2 09/04/16 15:50 18 09/04/16 12:00 98.1 109 18 165/85 93 09/04/16 08:00 97.3 97 18 130/58 90 09/04/16 04:00 98.7 91 18 112/55 100 09/04/16 04:00 Room Air 09/04/16 00:00 98.4 97 18 128/62 94 09/04/16 00:00 Room Air 09/03/16 21:48 92 Nasal Cannula 2.00 09/03/16 20:00 98.6 97 18 169/79 95 09/03/16 20:00 Room Air I/O 09/03/16 09/03/16 09/03/16 09/04/16 09/04/16 09/04/16 07:00 15:00 23:00 07:00 15:00 23:00 Intake Total 100 ml 0 ml 240 ml 100 ml Output Total 550 ml 475 ml 0 ml 250 ml Balance -450 ml -475 ml 240 ml -150 ml Intake Oral 100 ml 0 ml 240 ml 100 ml Output Urine Total 550 ml 475 ml 0 ml 250 ml # Bowel Movements 0 1 0 1 awake alert sits up in bed yelling then quiets down able to state her name , sons and daughters was able to tell me what career she had. calls her then goes into a yelling spree unable to understand her words then are gibberish. perrla no nystagmus face not drooping motor arms uses both and very strong paint sprayer sandblaster b/l right aka she keeps flexed inward left leg is outward and limits her movement wrapped in a dressing. Result Diagram: 09/03/1691109/03/16911 Objective Remarks opens eyes with sternal rub looks at me stated her first name then falls asleep again and willnot follow commands no facial droop ,no slurring of speech perrla oriented to self. motor moves all extremities Assessment and Plan Assessment and Plan encephalopathy no improvement possible anoxic event while in rehab s/p helicat was found low sats for unknown length of time -reeval via eeg stop vpa check mri brain w w/o jasmin and mra cow can try some steroids and d/w hospitalist who will check some labs for rheum d/ o. heme/onc to see if they want repeat L/P can be done. d/w family Althea Rodriguez MD Sep 04, 2016 16:15
[2016-09-04] MEDS ORDERED: DRONABINOL 2.5 MG CAP PO ONE (17:15)
--- NOTE | 2016-09-04 19:45 | HHI.HCPN ---
Reason for visit a. To assist with evaluation and management of symptoms including: delirium , pain, lethargy. b. To assist medical decision maker(s) with: better understanding of current medical conditions; weighing benefits/burdens of medical treatment options; making medical treatment decisions. . Subjective/Interval History Ms. Lemos remains agitated and confused today with frequent yelling out and inability to speak to me. Son, daughter, and are at bedside. They say she was actually a little better today with slightly less agitation, and an intermittent ability to answer a few simple questions with understandable speech. The patient is unable to provide information on symptoms. I spoke to the family at length going over my conversation with Dr. Alejo yesterday evening and the plan that was put in place. Psychiatry, Neurology, ID , GI, and Heme/onc have been consulted. Psych, neuro had already visited. ID arrived while I was in the room. We discussed the possible additional testing that they will ask for. We discussed feeding tubes and efforts to get the patient transferred to a tertiary care center. We discussed the patient's suffering and what time it might be appropriate to transition to "comfort measures only." This evening, I collaborated with the patient's nurse, spoke in person with Candy Soto, and Coleman regarding the case. . . Family/friend interactions See above. Spoke with son, daughter, and at bedside. . Advance Directives Living Will: Never completed Health Care Surrogate: Never completed Durable Power of Pie Icer Machine: Completed, but not made available Advance Directive Specifics Date completed: Family reports there is a completed POA document -- not available to us at this time. Unknown date. . Health Care Surrogate(s): is reportedly the health care POA. Even if there is no documented designation of health care POA or surrogate, he would serve as proxy. Spoke with in person on 08/12/16. He tells me how he knows nothing about health care and is fine if patient's daughter Blanche serves as proxy. As does not want to serve, it would fall to both son and daughter. Patient 's son also opts out (as he is out of town often) therefore leaving decision- making to patient's daughter Blanche. . Documented care wishes: No documented wishes of patient's expressed health care goals/preferences. . Objective Vital Signs Date Time Temp Pulse Resp B/P Pulse Ox O2 Delivery O2 Flow Rate FiO2 09/04/16 16:00 97.5 90 18 148/70 93 09/04/16 15:50 18 09/04/16 12:00 98.1 109 18 165/85 93 09/04/16 08:00 97.3 97 18 130/58 90 09/04/16 04:00 98.7 91 18 112/55 100 09/04/16 04:00 Room Air 09/04/16 00:00 98.4 97 18 128/62 94 09/04/16 00:00 Room Air 09/03/16 21:48 92 Nasal Cannula 2.00 09/03/16 20:00 98.6 97 18 169/79 95 09/03/16 20:00 Room Air Intake & Output 09/04/16 09/04/16 07:00 19:00 Intake Total 340 ml 360 ml Output Total 250 ml 350 ml Balance 90 ml 10 ml Intake Oral 340 ml 360 ml IV Total 0 ml Output Urine Total 250 ml 350 ml # Bowel Movements 1 1 . Physical Exam CONSTITUTIONAL/GENERAL: This is an adequately nourished patient. Extremely agitated, calling out, not able to answer questions or follow commands. . Diagnostic Tests Laboratory Laboratory Tests Test 09/01/16 09/02/16 09/02/16 09/03/16 20:23 07:59 08:54 09:12 Antibody Identification Anti-Madeleine Blood Type A POSITIVE Antibody Screen POSITIVE Direct Antiglobulin Test NEGATIVE (Nickolas) (NEGATIVE) Crossmatch Leukocyte-Reduced Red Blood Cells Blood Bank Comment White Blood Count 13.9 TH/MM3 10.0 TH/MM3 (4.0-11.0) (4.0-11.0) Red Blood Count 3.28 MIL/MM3 2.99 MIL/MM3 (4.00-5.30) (4.00-5.30) Hemoglobin 7.8 GM/DL 7.5 GM/DL (11.6-15.3) (11.6-15.3) Hematocrit 25.4 % 22.9 % (35.0-46.0) (35.0-46.0) Mean Corpuscular Volume 77.4 FL 76.5 FL (80.0-100.0) (80.0-100.0) Mean Corpuscular Hemoglobin 23.8 PG 24.9 PG (27.0-34.0) (27.0-34.0) Mean Corpuscular Hemoglobin 30.7 % 32.6 % Concent (32.0-36.0) (32.0-36.0) Red Cell Distribution Width 17.6 % 18.1 % (11.6-17.2) (11.6-17.2) Platelet Count 440 TH/MM3 482 TH/MM3 (150-450) (150-450) Mean Platelet Volume 6.6 FL 6.5 FL (7.0-11.0) (7.0-11.0) Neutrophils (%) (Auto) 80.5 % (16.0-70.0) Lymphocytes (%) (Auto) 11.0 % (9.0-44.0) Monocytes (%) (Auto) 6.0 % (0.0-8.0) Eosinophils (%) (Auto) 2.2 % (0.0-4.0) Basophils (%) (Auto) 0.3 % (0.0-2.0) Neutrophils # (Auto) 11.2 TH/MM3 (1.8-7.7) Lymphocytes # (Auto) 1.5 TH/MM3 (1.0-4.8) Monocytes # (Auto) 0.8 TH/MM3 (0-0.9) Eosinophils # (Auto) 0.3 TH/MM3 (0-0.4) Basophils # (Auto) 0.0 TH/MM3 (0-0.2) CBC Comment AUTO DIFF Differential Comment AUTO DIFF CONFIRMED Platelet Estimate HIGH (NORMAL) Platelet Morphology Comment NORMAL (NORMAL) Sodium Level 144 MEQ/L 144 MEQ/L (136-145) (136-145) Potassium Level 3.5 MEQ/L 3.7 MEQ/L (3.5-5.1) (3.5-5.1) Chloride Level 98 MEQ/L 101 MEQ/L (98-107) (98-107) Carbon Dioxide Level 41.2 MEQ/L 41.2 MEQ/L (21.0-32.0) (21.0-32.0) Anion Gap 5 MEQ/L (5-15) 2 MEQ/L (5-15) Blood Urea Nitrogen 19 MG/DL (7-18) 17 MG/DL (7-18) Creatinine 1.13 MG/DL 0.85 MG/DL (0.50-1.00) (0.50-1.00) Estimat Glomerular Filtration 49 ML/MIN (>89) 68 ML/MIN (>89) Rate Random Glucose 78 MG/DL 62 MG/DL (74-106) (74-106) Calcium Level 7.9 MG/DL 8.1 MG/DL (8.5-10.1) (8.5-10.1) Blood Gas Puncture Site LT RADIAL Blood Gas Patient Temperature 98.6 Blood Gas HCO3 39 mmol/L (22-26) Blood Gas Base Excess 14.0 mmol/L (-2-2) Blood Gas Oxygen Saturation 91 % (90-100) Arterial Blood pH 7.42 (7.380-7.420) Arterial Blood Partial 62 mmHg (38-42) Pressure CO2 Arterial Blood Partial 67 mmHg Pressure O2 (61-120) Arterial Blood Oxygen Content 10.0 Vol % (12.0-20.0) Arterial Blood 1.5 % (0-4) Carboxyhemoglobin Arterial Blood Methemoglobin 0.7 % (0-2) Blood Gas Hemoglobin 7.8 G/DL (12.0-16.0) Oxygen Delivery Device NASAL CANNULA Blood Gas Inspired Oxygen 5 % . Result Diagram: 09/03/1691109/03/16911 Imaging Last Impressions Lumbar Puncture Fluoroscopy 08/29/16 0000 Signed Impressions: Service Date/Time: Monday, August 29, 2016 16:39 - CONCLUSION: Uncomplicated fluoroscopically guided lumbar puncture with pressures as above. Alfredo Etienne MD Brain MRI 08/25/16 0000 Signed Impressions: Service Date/Time: Thursday, August 25, 2016 19:01 - CONCLUSION: Chronic atrophic and small vessel ischemic changes without any evidence for acute hemorrhage or mass effect. Smith Boateng MD Chest X-Ray 08/19/16 0000 Signed Impressions: Service Date/Time: Friday, August 19, 2016 18:46 - CONCLUSION: 1. Bibasilar streakiness consistent with atelectasis and/or infiltrates. 2. Cardiomegaly. 3. Poor inspiratory result. Shamar Banuelos MD Upper Extremity Ultrasound 07/28/16 0000 Signed Impressions: Service Date/Time: Thursday, July 28, 2016 14:34 - CONCLUSION: No DVT is identified within the right upper extremity. Alfredo Eng MD Head CT 07/19/16 0000 Signed Impressions: Service Date/Time: Tuesday, July 19, 2016 09:58 - CONCLUSION: No acute intracranial findings. João Otoole MD Foot X-Ray 07/16/16 0000 Signed Impressions: Service Date/Time: Saturday, July 16, 2016 17:34 - CONCLUSION: 1. Nonspecific soft tissue swelling. No acute bone destruction demonstrated. 2. Mild talonavicular and navicular/cuneiform degenerative changes. 3. Second through fifth hammertoe. 4. Moderate-sized heel spur. Alfredo Sneed MD . Procedures 07/31/2016 Excision and debridement of both legs, extensive necrotic wounds approximately 30 x 25 cm area on each side, total 1000 to 1100 cm square, down to the subcutaneous tissue and tendon on the left side. 08/08/2016 1. Selective right lower extremity arteriogram. 2. Balloon angioplasty with a 4 mm x 2200 mm and then a 5 x 200 mm Meal Mantratronic angioplasty balloon of the right superficial femoral and proximal popliteal artery. Note that patient had these additional procedures on prior admissions: * Bilateral lower extremity wound debridements 05/15/16 * Bilateral LE Debridements and Left SFA angioplasty on 06/23/16 Right AKA 09/02/16 . Assessment and Plan Disease Oriented Problem List: (1) complicated/infected/necrotic foot and leg wounds (2) PVD (peripheral vascular disease) Comment: With infected/nonhealing wounds and gangrene (3) DM (diabetes mellitus), type 2, uncontrolled, periph vascular complic (4) CHF (congestive heart failure) (5) Hypertension (6) Cellulitis of left lower extremity (7) Delirium due to another medical condition (8) VT (ventricular tachycardia) (9) Ulcer of heel and midfoot (10) Hypothyroidism (11) Anemia (12) Urinary tract infection Comment: Cx of 08/11/16 growing out E coli ESBL . (13) [place] light chain disease (14) Hypoalbuminemia Symptom Scale: (1) Pain 0-10 Scale: 0 Comment: Unable to quantify/qualify pain -- too delirious agitated. Had AKA on 09/02/16 so likely has post-op pain. . . (2) Confusion 0-10 Scale: Unable to quantify Comment: Confusion is probably multifactorial. Patient apparently was cognitively sharp up until about 05/13/2016. Has had intermittent confusion since including hallucinations and disorientation. Now with severe agitated delirium. . . (3) Lethargy 0-10 Scale: Unable to quantify Comment: Was lethargic 09/02/16 and multiple sedating meds were stopped. Now extremely agitated. . (4) Delirium 0-10 Scale: Unable to quantify Comment: probably multifactorial Pertinent Non-Medical Issues Psychosocial: Psychosocial support from and daughter (lives locally). Son in [place] is very involved, but is often working out of the country. Spiritual: Orthodoxy. Had been a member of [employer]. Legal: Family reports there is a completed POA for finance and health care. and patient's son are OK yielding decision making to patient's daughter. Ethical issues impacting care: Patient is currently incapacitated due to delirium. . Important Contacts * Alfredo Canelo (spouse) [phone] * Kalpesh (son) [phone] * Blanche (daughter) [phone] . Prognosis The patient has severe peripheral vascular disease and accompanying refractory lower extremity wounds. Wounds have worsened in spite of aggressive care beginning in March 2016. She has undergone re-vascularization procedures on both lower extremities since May. Wounds went on to involve tendon structures in the feet. She went to right sided AKA on 09/02/16. We have not been able to control her delirium which is having a profound effect on prognosis. She is either extremely agitated / confused or on a very small amount of medication becomes overly lethargic. Prognosis will depend also on whether or not she can heal well at the stump and whether or not the LLE wounds can be controlled. . . Code Status: Full Code Plan * Decision making: Patient is currently incapacitated to make her own health care decisions. She is confused and it is unclear if/when she will regain capacity. The patient's son and have opted out of decision making have both opted out of decision making leaving daughter -- Blanche -- as the proxy. Family is communicating well with each other. * CODE STATUS: FULL CODE * * Goals of medical treatment: Currently desire ongoing aggressive care. * * Confusion: Her confusion/delirium is severe with terrible agitation. We are unable to find a cause. Efforts to control agitation with even small amounts of sedating medication appear to lead to oversedation. Given her elevated [place] light chains, I have ordered a viscosity study. I am wondering if high viscosity could explain combination of poor wound healing AND mental status changes. Recommend considering heme/onc input to see if [place] light chain elevation is just due to infection or if amyloidosis, Waldenstrom's ; Myeloma, etc, might be playing a role here. * * Pain: Pain appears mostly secondary to ischemic pain and wound pain in the lower extremities and now post-op pain from amputation of 09/02/16. She may also have some lower extremity pain secondary to diabetic neuropathy (now off her gabapentin) . Patient is unable to quantify or qualify her pain adequately due to her cognitive challenges. She apparently had a negative reaction to fentanyl. She became too sedated on higher dose gabapentin. Very low dose methadone was stopped on 09/02/16 due to oversedation. . PRN IV morphine order now in place. . when she is agitated, it is difficult to differentiate delirium from pain. * * Palliative care has felt like a failure in regards to helping to manage symptoms in this very challenging and sad case. We either have the patient agitated/confused/miserable, OR, on relatively low doses of medications, have her lethargic. Our team cannot explain why her symptoms are so refractory. From a palliative care team perspective, we would encourage transfer to a tertiary care center. Dr. Alejo tells me he has tried multiple times and is unable to find an accepting physician. We are uncertain what to try next. * * As noted above, case discussed at length today with Coleman Soto, Candy. * * Palliative care will continue to follow the patient to assist with symptom management and to further clarify goals of medical treatment as the clinical course evolves. . Time Spent Total Floor Time (mins): 55 (Total time included chart review; above referenced family discussion; and discussions with doctors Milo Cee, and Candy. ) Face to Face Time (mins): 25 >50% Counseling/Coord of Care: Yes Attestation To help prompt me to consider important information that might be impacting today's encounter and assessment, information from prior notes written by myself or my colleagues may have been "brought forward" into today's note. My signature on this note, however, is an attestation that I personally performed the exam, history, and/or decision-making noted today, and, unless otherwise indicated, the interactions with patient, family, and staff as well as the review of records all occurred today. I also attest that the listed assessment and stated plan reflect my best clinical judgment today based on the combination of historical information, prior notes, and today's exam/ interactions. When time spent is documented, it refers only to time spent today by the signer, or if indicated, combined time spent today by collaborating physician/nurse practitioner. . Alton Ohara MD Sep 04, 2016 19:45
--- NOTE | 2016-09-04 19:54 | HHI.IDPN ---
Subjective Subjective Remarks is a 61 y/o CF with PVD s/p revascularization. ESBL in her wounds likely colonization. Cdiff positive diarrhea. ID reconsulted for abnormal LP and need for antibiotics given Cdiff. Edwardo Pierson. Afebrile. Moaning and crying. visiting with patient and family. Antibiotics Vanco oral. Lines Line sites with no e.o infection. Past Medical History PVD - has CTA last year and has lesions that could be corrected Hypertension Diabetes Cardiomyopathysustained after contrast-induced flash pulmonary edema- latest EF was 30% in March 2016. Obesity Hypothyroidism History of dermoid cyststatus post left oophorectomy 25 years ago Past Surgical History Left oophorectomy for dermoid cyst removal Cholecystectomy Hernia repair Allergies: Coded Allergies: Contrast Media (Verified Allergy, Severe, Flash pulmonary edema , 06/16/16) PEANUTS (Verified Allergy, Severe, rash, 07/03/16) swelling of the tongue Santyl (Verified Allergy, Intermediate, Irritation, 07/09/16) *MDRO Multi-Drug Resistant Organism (Verified Adverse Reaction, Unknown, ) MRSA (leg wound) - 07/31/2016 & 08/14/16 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/2016 ESBL E. coli (urine) - 08/10/2016 Objective . Vital Signs Date Time Temp Pulse Resp B/P Pulse Ox O2 Delivery O2 Flow Rate FiO2 09/04/16 16:00 97.5 90 18 148/70 93 09/04/16 15:50 18 09/04/16 12:00 98.1 109 18 165/85 93 09/04/16 08:00 97.3 97 18 130/58 90 09/04/16 04:00 98.7 91 18 112/55 100 09/04/16 04:00 Room Air 09/04/16 00:00 98.4 97 18 128/62 94 09/04/16 00:00 Room Air 09/03/16 21:48 92 Nasal Cannula 2.00 09/03/16 20:00 98.6 97 18 169/79 95 09/03/16 20:00 Room Air 09/03/16 09/03/16 09/04/16 15:00 23:00 07:00 Intake Total 0 ml 240 ml 100 ml Output Total 475 ml 0 ml 250 ml Balance -475 ml 240 ml -150 ml Intake Oral 0 ml 240 ml 100 ml Output Urine Total 475 ml 0 ml 250 ml # Bowel Movements 1 0 1 . Laboratory Tests Test 09/03/16 09:12 White Blood Count 10.0 TH/MM3 Red Blood Count 2.99 MIL/MM3 Hemoglobin 7.5 GM/DL Hematocrit 22.9 % Mean Corpuscular Volume 76.5 FL Mean Corpuscular Hemoglobin 24.9 PG Mean Corpuscular Hemoglobin 32.6 % Concent Red Cell Distribution Width 18.1 % Platelet Count 482 TH/MM3 Mean Platelet Volume 6.5 FL Laboratory Tests Test 09/03/16 09:12 Sodium Level 144 MEQ/L Potassium Level 3.7 MEQ/L Chloride Level 101 MEQ/L Carbon Dioxide Level 41.2 MEQ/L Anion Gap 2 MEQ/L Blood Urea Nitrogen 17 MG/DL Creatinine 0.85 MG/DL Estimat Glomerular Filtration 68 ML/MIN Rate Random Glucose 62 MG/DL Calcium Level 8.1 MG/DL Imaging Chest X-Ray 07/20/16 0000 Signed Impressions: Service Date/Time: Wednesday, July 20, 2016 12:38 - CONCLUSION: Mild left base consolidation developing. Alfredo Sneed MD Brain MRI 07/20/16 0000 Signed Impressions: Service Date/Time: Wednesday, July 20, 2016 09:15 - CONCLUSION: No acute intracranial abnormality. Moderately severe chronic white matter changes, nonspecific but most likely small vessel ischemia. Alfredo Sneed MD Head CT 07/19/16 0000 Signed Impressions: Service Date/Time: Tuesday, July 19, 2016 09:58 - CONCLUSION: No acute intracranial findings. João Otoole MD Foot X-Ray 07/16/16 0000 Signed Impressions: Service Date/Time: Saturday, July 16, 2016 17:34 - CONCLUSION: 1. Nonspecific soft tissue swelling. No acute bone destruction demonstrated. 2. Mild talonavicular and navicular/cuneiform degenerative changes. 3. Second through fifth hammertoe. 4. Moderate-sized heel spur. Alfredo Sneed MD Physical Exam GENERAL: Obese, CF. SKIN: Rash on her left side of neck improved. HEENT: [place] conjunctivae. No icterus, moist mucosa NECK: Trachea midline. Supple, nontender, no meningeal signs. CARDIOVASCULAR: HS audible. No murmur appreciated. Decreased BS at bases RESPIRATORY: Clear to auscultation. Breath sounds equal bilaterally. GASTROINTESTINAL: Abdomen soft, non-tender, nondistended. Obese. MUSCULOSKELETAL: LLE with gangrenous changes. NEUROLOGICAL: moaning and crying, moves all extremities. Psych: could not be assessed. IV line sites with no e.o infection. Assessment & Plan Remarks ESBL in urine ? likely colonization. Diarrhea: cdiff positive. Dry gangrene 2 toes L foot PVD, S/P revascularization Encephalopathy, prob pain meds a big factor, ? pain meds related. Cardiomyopathy DM with neuropathy. Hypothyroidism Chronic narcotic use. Anxiety and Depression. PLAN No systemic antibiotics in view of Cdiff unless change in clinical condition. reconsult ID in that case. Continue oral vanco 125 mg po q6hrs for 14 days(stop date in EMR. Reviewed CSF studies: not suggestive of infection. Cultures negative. Suspect metabolic and medication induced mental status changes. Follow clinically. edwardo Elizalde. Will sign off please call back if any change in clinical condition or questions. Charisse Pedraza MD Sep 04, 2016 19:54
[2016-09-04 20:00] VITALS: BP 126/68; PULSE 90; PULSE 91; RESP 20; TEMP 98.8; O2SAT 93
[2016-09-04] MEDS: INSULIN DETEMIR 100 UNITS/ML VIAL SQ SCH (21:00)
[2016-09-04] MEDS: MELATONIN 5 MG TAB PO SCH (21:50)
[2016-09-04] MEDS: POTASSIUM CHLORIDE INJ 20 MEQ in LACTATED RINGER'S 1000 ML INJ 1,000 ML IV SCH (23:50)
[2016-09-05] VITALS: BP 125/59; PULSE 96; RESP 22; TEMP 97.8; O2SAT 95
[2016-09-05 04:00] VITALS: BP 145/65; PULSE 96; RESP 20; TEMP 98; O2SAT 95
[2016-09-05] MEDS: HYDROCORTISONE 1% CREAM 30 GM TOPICAL SCH ×3 (04:50→20:00)
[2016-09-05] MEDS: MORPHINE SULFATE 4 MG/ML INJ IM PRN ×3 (04:53→23:28)
[2016-09-05] MEDS: LEVOTHYROXINE SODIUM 150 MCG TAB PO SCH (05:02)
[2016-09-05] MEDS: INSULIN ASPART SUPPLEMENTAL SCALE SQ SCH ×4 (05:14→21:00)
--- NOTE | 2016-09-05 07:10 | MB ---
cc: THOMAS HANEY DATE OF CONSULTATION 09/04/2016 REASON FOR CONSULTATION Concerns that the patient might have an underlying malignancy in a patient with rapidly progressive ischemia of the extremities and multiple wounds lower extremities. PATIENT PROFILE The patient is a 61-year-old female who is . She has two biologic children. 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 She has a history of diabetes and it is my understanding that control has been a difficult issue for her. She currently does not smoke. She had smoked for approximately 20 years in the past. HISTORY OF PRESENT ILLNESS The patient is a 61-year-old female who was relatively stable until three or four months ago, when she began to develop ischemic changes involving the lower extremities due to what was felt to be vascular disease. She also was found to have a dilated cardiomyopathy with an ejection fraction between 20 and 30% dating back to 2014. She has required an amputation of the right leg above the knee. She has severe ischemia of the left lower extremity and several toes have dry gangrene. She has wounds involving both legs from the knees downward, presently involving the left leg below the knee as she has had a right [id number] amputation. She has had problems with confusion and generalized pain. I have spoken with Dr. Ohara from the palliative care service and the patient is in severe pain and agitated much of the time and then becomes somnolent and confused when given low doses of narcotics. She has become completely bedridden. She had a spinal tap on 08/29/2016 which was not entirely normal. She had no gross blood. CSF contained 14 white cells and 34 red cells. The cytology report reads numerous small lymphocytes present, see comment. The specimen consist of numerous small round lymphocytes. While this finding can be seen in the setting of viral meningeal encephalitis, involvement by hematolymphoid process cannot be entirely excluded. If this is a clinical consideration flow cytometry can performed on a fresh specimen and may be helpful for further characterization. Her CBC and platelet count has not suggested evidence of a leukemia. On 09/02/2016, hemoglobin 7.8, white count 13,000, platelets 440,000, 80% neutrophils, 11% lymphocytes. There has been no time that she has had an elevated lymphocyte count and she has had multiple CBCs. She has had many studies. One of the studies which resulted in the consult was a free kappa light chain of 105 and a free lambda light chain of 56. The free kappa lambda ratio was only slightly elevated, with the normal value being 0.26-1.65. There was nothing else to suggest myeloma. A seruml electrophoresis revealed no abnormal band. Immunoglobulins were for normal. IgG total 1280, IgA 448, IgM 71. Cryoglobulins were negative. The patient had tests for autoimmune disorders. TIA screen was negative. Rheumatoid screen is negative. There was no evidence of a lupus anticoagulant. Anticardiolipin antibodies, IgG, IgM and IgA were negative. Anti-beta-2 glycoproteins were likewise negative. Tests for hepatitis A, B and C are negative. Herpes simplex virus DNA testing is negative. HIV antibodies are negative. Lytes, BUN and creatinine unremarkable with a BUN of 17, creatinine 0.8, albumin is low at 1.5. Serum protein electrophoresis shows marked markedly low albumin and polyclonal increase in gammaglobulin consistent with chronic inflammation. There was no monoclonal protein identified. Most recent MRI of the brain was 08/25/2016 showing chronic atrophic and small vessel ischemic changes. A chest x-ray on August 19 shows bibasilar streaking consistent with atelectasis and cardiomegaly. She has had multiple vascular studies done. She has had no studies of the abdomen and pelvis that I can find and her son who is present, does not remember any such studies ever being done. PAST SURGICAL HISTORY Includes: 1. Multiple vascular procedures resulting in an amputation of the right leg above the knee. 2. She has also had multiple procedures for wound care. Other surgeries consist of: 1. Left oophorectomy 2. Cholecystectomy 3. Hernia repair PAST MEDICAL HISTORY 1. Cardiomyopathy 2. Hypothyroidism 3. Peripheral vascular disease 4. Hypertension 5. Diabetes. MEDICATIONS Current medications: 1. Vancomycin 2. Morphine 3. Cytomel 4. Levothyroxine 5. Levemir 6. Melatonin 7. Insulin ALLERGIES SANTYL FAMILY HISTORY The family history is unknown to me. REVIEW OF SYSTEMS Review of systems is not obtainable. When I try to talk to the patient she moans. Her son and a much of the history. PHYSICAL EXAM Physical exam reveals a both acute and chronically ill appearing female. She has had an amputation above the right knee. The left leg shows several black dry digits and the leg is bandaged with open wounds underneath. HEAD: Normocephalic. EYES, EARS, NOSE AND THROAT: Sclerae are unremarkable. Oropharynx, she would not allow examination. NECK: There is no adenopathy. BREASTS: She would not allow me to examine her breasts, she starts moaning and puts her hands over her chest. HEART: Regular rhythm. LUNGS: Decreased sounds at the bases. ABDOMEN: Obese. No hepatosplenomegaly. EXTREMITIES: She has a right leg amputation above the knee. Left leg is bandaged and as mentioned above, she has ischemic dry digits. ASSESSMENT 1. There was a concern about myeloma because of the elevated free kappa light chain. There is nothing to suggest myeloma. The lambda light chain is likewise elevated and the ratio is almost normal. I believe the elevation is due to a chronic inflammatory process. In addition, the IgG, IgA and IgM are normal. The serum immunoelectrophoresis reveals no evidence of a monoclonal protein. 2. This is a woman who has had a rapid deterioration, unexplained. She is having profound arterial ischemia. She does not appear to have any evidence of DIC. Her most recent PT and PTT on 08/25/2016 has been normal. I will order a fibrinogen. It is hard to see what is driving this process. Her CSF is not normal with the increased lymphocytes. PLAN I have ordered a CT of the thorax, abdomen, pelvis without contrast. The patient has an allergy to contrast. I am trying to determine if there is any underlying driving illness which makes hier so ill. One could consider a bone marrow aspirate and biopsy following this. I suspect that the yield will be very small. I have also ordered a CEA. In looking at her medications, I do not see any aspirin or Plavix. I will discuss this with Dr. Ohara as there may be something that I am unaware of. I do not think this will help solve her problem, but it may make the risks of further ischemia less. The above was discussed with the patient's son, and daughter. MD CACHORRO Garnett/TORREY /8:19 PM /6:29 AM JAY
[2016-09-05 08:00] VITALS: BP 144/68; PULSE 96; RESP 18; TEMP 98.1; O2SAT 93
[2016-09-05] MEDS: MUPIROCIN 2% OINT 22 GM TUBE TOPICAL SCH ×2 (09:00→21:00)
[2016-09-05] MEDS: SODIUM CHLORIDE 0.9% FLUSH 5 ML FLUSH IV FLUSH SCH ×2 (09:00→21:00)
[2016-09-05] MEDS: LIOTHYRONINE SODIUM 5 MCG TAB PO SCH (09:29)
[2016-09-05] MEDS: HEPARIN SODIUM - SQ 10,000 UNITS/ML VIAL SQ SCH ×2 (09:29→21:07)
[2016-09-05] MEDS: LACTOBACILLUS ACIDOPHILUS TAB PO SCH ×3 (09:29→16:42)
[2016-09-05] MEDS: VANCOMYCIN 500 MG VIAL (FOR ORAL USE ONLY) PO SCH ×4 (09:29→21:02)
[2016-09-05] MEDS: ASPIRIN EC 81 MG TABEC PO SCH (09:34)
[2016-09-05] MEDS: CARVEDILOL 3.125 MG TAB PO SCH ×2 (09:34→21:01)
--- NOTE | 2016-09-05 10:15 | RADRPT ---
EXAM DATE/TIME: 09/05/2016 08:47 [facility] COMPARISON: No previous studies available for comparison. INDICATIONS : Rule out occult malignancy. RADIATION DOSE: 21.83 CTDIvol (mGy) ; Combined studies - Thorax/Abdomen/Pelvis MEDICAL HISTORY : Hypertension. Diabetes. SURGICAL HISTORY : Cholecystectomy. Left oophorectomy. ENCOUNTER: Subsequent ACUITY: 2 months PAIN SCALE: 0/10 LOCATION: Bilateral chest TECHNIQUE: Volumetric scanning of the chest was performed. Using automated exposure control and adjustment of t he mA and/or kV according to patient size, radiation dose was kept as low as reasonably achievable to obtain optimal diagnostic quality images. FINDINGS: There is patchy airspace disease and atelectasis at the lung bases. No worrisome masses are seen in the chest. There is atherosclerotic calcification of the aorta, and coronary arteries as well as calcification of the mitral anulus. Trace pericardial effusion. No adenopathy. Mild dilatation of the ascending aorta measuring 4.0 x 4.3 cm in AP and transverse dimension. Degenerative changes of the s pine are noted. CONCLUSION: 1. No worrisome masses. Please see above. 2. Dilatation of the aorta 4.3 cm. 3. Atherosclerosis. Addy Hillman MD on September 05, 2016 at 10:09 Board Certified Radiologist. This report was verified electronically.
--- NOTE | 2016-09-05 10:19 | RADRPT ---
EXAM DATE/TIME: 09/05/2016 08:47 [facility] COMPARISON: CT THORAX W/O CONTRAST, September 05, 2016, 8:47. INDICATIONS : Rule out occult malignancy. ORAL CONTRAST: No oral contrast ingested. RADIATION DOSE: 21.83 CTDIvol (mGy) ; Combined studies - Thorax/Abdomen/Pelvis MEDICAL HISTORY : Hypertension. Diabetes. SURGICAL HISTORY : Cholecystectomy. Left oophorectomy. ENCOUNTER: Subsequent ACUITY: 2 months PAIN SCALE: 0/10 LOCATION: All quadrants. TECHNIQUE: Volumetric scanning of the abdomen and pelvis was performed. Using automated exposure control and ad justment of the mA and/or kV according to patient size, radiation dose was kept as low as reasonably achievable to obtain optimal diagnostic quality images. FINDINGS: The patient is status post cholecystectomy and left oophorectomy. Trace pericardial effusion. Calcifi cation of the mitral anulus. Basilar atelectasis and consolidation noted. Pancreas, adrenal glands, k idneys are unremarkable. In the right lobe of the liver on axial image 28 a hypodense mass is noted m easuring 1.7 cm, incompletely characterized on this study. Extensive atherosclerotic calcifications o f the aorta, iliac vessels and branches noted. Mcintyre catheter within the urinary bladder. The uterus is abnormal. It is enlarged and lobular in appearance with intermediate to increased attenuation seen . On axial image 73 measures 11 x 7 cm in AP and transverse dimension. A pelvic ultrasound will be he lpful for further evaluation. It is difficult to exclude a large hyperdense pleural-based mass versus fibroids. There are no signs of bowel obstruction. There are 2 fat containing umbilical hernia is id entified. There is no lymphadenopathy or aneurysm. Severe degenerative disc disease of the lumbar spi ne. CONCLUSION: 1. Fat containing umbilical hernias. 2. Extensive atherosclerosis. 3. Indeterminate low-density lesion in the liver, incompletely characterized without contrast. 4. Basilar air space disease and atelectasis with small pericardial effusion. 5. Abnormal appearance of the uterus as described above. A pelvic ultrasound will be helpful for furt her assessment on a nonemergent outpatient basis. Addy Hillman MD on September 05, 2016 at 10:14 Board Certified Radiologist. This report was verified electronically.
--- NOTE | 2016-09-05 10:43 | PD.CONS ---
HPI History of Present Illness This is a 61 year old white female with complicated lengthy hospital stay, with history of cellulitis of legs, severe PVD, diabetes and cardiomyopathy EF of 30% who was admitted on here on (07/15/16) for AMS, lethargy and hypoxemia. Neurology, hematology, ID, plastic surgery, vascular surgery, palliative care on the case. No found etiology of patient's declining sever delirium. She is s/ p right AKA on 09/03/16. She has C-diff, UTI as well. Her son at bed side who states she has slow progression but rapid decline in the past 2 weeks. Patient has very poor appetite and hasn't been eating very well. She denies nausea, vomiting, abdomen pain, hematochezia or melena. She does have diarrhea. GI consulted for PEG tube placement, however, she was started on Marinol recently and her children would like to wait and see how she does over the weekend before they decide. She is currently in the chair, asking for food, yelling and screaming. PFSH Past Medical History Peripheral vascular disease Chronic recurrent wounds Recurrent cellulitis Hypertension Diabetes Cardiomyopathysustained after contrast-induced flash pulmonary edema- latest EF was 30% in March 2016. Obesity Hypothyroidism History of dermoid cyststatus post left oophorectomy 25 years ago Seizures? . Past Surgical History Excision / debridement both lower extremities 07/31/16 RLE arteriogram and balloon angioplasty 08/08/16 Right [id number] amputation 08/24/16 Left oophorectomy for dermoid cyst removal about 25 years ago Cholecystectomy Hernia repair . 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 coli (urine) - 08/10/2016 Medications Current Medications Medications (Trade) Dose Ordered Sig/Virgilio Route Start Time Stop Time Status Last Admin (NS Flush) 2 ml UNSCH PRN IV FLUSH 07/15/16 19:45 3/21/17 05:30 (NS Flush) 2 ml BID IV FLUSH 07/15/16 21:00 09/05/16 09:00 (Reglan Inj) 5 mg Q6H PRN IV 07/15/16 19:45 (Synthroid) 150 mcg DAILY@06 PO 07/16/16 06:00 09/05/16 05:02 (Cytomel) 5 mcg DAILY PO 07/16/16 09:00 09/05/16 09:29 (Pill Splitter) 1 ea UNSCH PRN OTHER 07/15/16 21:30 (D50w (Vial) Inj) 25 ml UNSCH PRN IV PUSH 07/23/16 11:00 (Glucagon Inj) 1 mg UNSCH PRN OTHER 07/23/16 11:00 (Vasotec Inj) 1.25 mg Q8H PRN IV PUSH 07/28/16 16:00 (Levemir Inj) 5 units HS SQ 07/30/16 21:00 Hold 09/03/16 20:17 Melatonin 5 mg 5 mg HS PO 07/30/16 21:00 09/04/16 21:50 (Gentamicin Inj/ NS Irr Btl) 1,005 ml @ 0 mls/hr UNSCH PRN IRRIGATION 07/31/16 13:30 (Tylenol) 500 mg Q6H PRN PO 08/13/16 17:15 08/29/16 00:12 (Bactroban 2% Oint) 1 applic Q12HR TOPICAL 08/15/16 15:00 09/05/16 09:00 (Hydrocortisone 1% Cream) 1 applic Q8H TOPICAL 08/15/16 20:00 09/05/16 04:50 (Lactinex) 1 tab TID PO 08/16/16 09:00 09/05/16 09:29 Vancomycin HCl 125 mg 125 mg QID PO 08/25/16 18:00 09/09/16 17:59 09/05/16 09:29 (KCl Inj/Lr 1000 ml Inj) 1,010 ml @ 42 mls/hr Q24H IV 09/02/16 00:00 09/03/16 04:17 (Morphine Inj) 2 mg Q4HR PRN IM 09/03/16 16:15 09/05/16 09:35 (Haldol Inj) 1 mg Q6H PRN IM 09/03/16 16:15 Hold 09/04/16 09:17 (Heparin Inj) 5,000 units Q12HR SQ 09/04/16 09:00 09/05/16 09:29 (Marinol) 2.5 mg BID@11,16 PO 09/05/16 11:00 (Ecotrin Ec) 81 mg DAILY PO 09/05/16 09:00 09/05/16 09:34 (Coreg) 3.125 mg Q12HR PO 09/05/16 09:00 09/05/16 09:34 Family History * Mother of colon cancer * Father and sister of COPD * . Social History No alcohol No illicit drug use Quit smoking in the Review of Systems Constitutional: COMPLAINS OF: Fatigue Endocrine: DENIES: Polyuria Eyes: DENIES: Double Vision Ears, nose, mouth, throat: DENIES: Hoarseness Respiratory: DENIES: Shortness of breath Cardiovascular: DENIES: Chest pain Gastrointestinal: COMPLAINS OF: Diarrhea, Anorexia, DENIES: Abdominal pain, Black stools, Bloody stools, Constipation, Nausea, Vomiting, Difficulty Swallowing, Odynophagia, Swelling of Abdomen, Heartburn, Hematemesis Genitourinary: DENIES: Hematuria Musculoskeletal: DENIES: Neck pain Integumentary: COMPLAINS OF: Abnormal pigmentation, DENIES: Jaundice Hematologic/lymphatic: DENIES: Bruising Immunologic/allergic: DENIES: Eczema Neurologic: DENIES: Abnormal gait Psychiatric: COMPLAINS OF: Confusion, Mood changes, Depression, Agitation GI Exam Vitals I&O Vital Signs Date Time Temp Pulse Resp B/P Pulse Ox O2 Delivery O2 Flow Rate FiO2 09/05/16 10:03 Room Air 50 09/05/16 08:00 98.1 96 18 144/68 93 09/05/16 04:00 Room Air 09/05/16 04:00 98.0 96 20 145/65 95 09/05/16 00:00 97.8 96 22 125/59 95 09/05/16 00:00 Room Air 09/04/16 20:00 98.8 91 20 126/68 93 09/04/16 20:00 90 09/04/16 20:00 Room Air 09/04/16 16:00 97.5 90 18 148/70 93 09/04/16 15:50 18 09/04/16 12:00 98.1 109 18 165/85 93 I/O 09/04/16 09/04/16 09/04/16 09/05/16 09/05/16 09/05/16 07:00 15:00 23:00 07:00 15:00 23:00 Intake Total 100 ml 360 ml 240 ml 100 ml Output Total 250 ml 350 ml 500 ml 250 ml Balance -150 ml 10 ml -260 ml -150 ml Intake Oral 100 ml 360 ml 240 ml 100 ml IV Total 0 ml Output Urine Total 250 ml 350 ml 500 ml 250 ml # Bowel Movements 1 1 0 1 Imaging Last Impressions Lumbar Puncture Fluoroscopy 08/29/16 0000 Signed Impressions: Service Date/Time: Monday, August 29, 2016 16:39 - CONCLUSION: Uncomplicated fluoroscopically guided lumbar puncture with pressures as above. Alfredo Etienne MD Brain MRI 08/25/16 0000 Signed Impressions: Service Date/Time: Thursday, August 25, 2016 19:01 - CONCLUSION: Chronic atrophic and small vessel ischemic changes without any evidence for acute hemorrhage or mass effect. Smith Boateng MD Chest X-Ray 08/19/16 0000 Signed Impressions: Service Date/Time: Friday, August 19, 2016 18:46 - CONCLUSION: 1. Bibasilar streakiness consistent with atelectasis and/or infiltrates. 2. Cardiomegaly. 3. Poor inspiratory result. Shamar Banuelos MD Upper Extremity Ultrasound 07/28/16 0000 Signed Impressions: Service Date/Time: Thursday, July 28, 2016 14:34 - CONCLUSION: No DVT is identified within the right upper extremity. Alfredo Eng MD Head CT 07/19/16 0000 Signed Impressions: Service Date/Time: Tuesday, July 19, 2016 09:58 - CONCLUSION: No acute intracranial findings. João Otoole MD Foot X-Ray 07/16/16 0000 Signed Impressions: Service Date/Time: Saturday, July 16, 2016 17:34 - CONCLUSION: 1. Nonspecific soft tissue swelling. No acute bone destruction demonstrated. 2. Mild talonavicular and navicular/cuneiform degenerative changes. 3. Second through fifth hammertoe. 4. Moderate-sized heel spur. Alfredo Sneed MD Laboratory Test 09/05/16 07:25 Fibrinogen 389 mg/dL Carcinoembryonic Antigen 1.7 NG/ML Physical Examination HEENT: normocephalic; atraumatic; no jaundice. Throat is clear. NECK: Neck is supple, no JVD, no lymphadenopathy. CHEST: Chest is clear to auscultation and percussion. CARDIAC: Regular rate and rhythm with no murmur gallop or rubs. ABDOMEN: Soft, nondistended, nontender; no hepatosplenomegaly; bowel sounds are present in all four quadrants. EXTREMITIES:gangrene left toes, R AKA SKIN: Normal; no rash; no jaundice. 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 we have been consulted for PEG tube, however, she was started on Marinol recently and her children would like to wait and see how she does over the weekend before they decide. She is currently in the chair, asking for food, yelling and screaming. - C-diff on Vanco - Anemia hgb 7.5- No bleeding reported, not clear when was the last time she has had colonoscopy, cea 1.7, Ct is pending - history of cellulitis of legs, severe PVD, She is s/p right AKA on 09/03/16. - diabetes and cardiomyopathy EF of 30% per attending - severe delirium.Neurology, hematology, ID, plastic surgery, vascular surgery, palliative care on the case. No etiology found for patient's declining status Plan: - Diabetic diet - Will reassess on Thursday - Cont. current measures - Cont. Marinol - Supportive care - Patient seen and examined by Dr. Gupta and myself and this note is written on his behalf Sharon Lemons Sep 05, 2016 10:43
--- NOTE | 2016-09-05 11:06 | PD.VS.PN ---
Subjective POD #: 3 Procedure(s): R AKA Subjective/Hospital Course Pt sitting in a chair with son at the BS Pt responds to commands using repetitive speech patterns Pt does not appear to be in any acute distress She appears more alert and calm this am Objective Vitals/I&O Date Time Temp Pulse Resp B/P Pulse Ox O2 Delivery O2 Flow Rate FiO2 09/05/16 10:03 Room Air 50 09/05/16 09:43 Nasal Cannula 09/05/16 08:00 98.1 96 18 144/68 93 09/05/16 04:00 Room Air 09/05/16 04:00 98.0 96 20 145/65 95 09/05/16 00:00 97.8 96 22 125/59 95 09/05/16 00:00 Room Air 09/04/16 20:00 98.8 91 20 126/68 93 09/04/16 20:00 90 09/04/16 20:00 Room Air 09/04/16 16:00 97.5 90 18 148/70 93 09/04/16 15:50 18 09/04/16 12:00 98.1 109 18 165/85 93 09/05/16 09/05/16 09/05/16 07:00 15:00 23:00 Intake Total 100 ml Output Total 250 ml Balance -150 ml Exam: GENERAL: Alert, NAD SKIN: Warm and dry. R AKA incision intact with che present, Minimal serosanguineous drainage noted to medial aspect of incision. HEAD: Normocephalic. EYES: No scleral icterus. No injection or drainage. NECK: Supple, trachea midline. No JVD or lymphadenopathy. CARDIOVASCULAR: RRR,+S1,S2 without murmurs, gallops, or rubs. RESPIRATORY: Breath sounds equal and clear bilaterally. No accessory muscle use. GASTROINTESTINAL: Abdomen soft, non-tender, nondistended. 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
--- NOTE | 2016-09-05 11:24 | PD.ONC.PN ---
Subjective Subjective Remarks Afebrile overnight. Patient not able to provide any subjective information. She moans and yells incoherently. Sister is at bedside. Objective Data Date Time Temp Pulse Resp B/P Pulse Ox O2 Delivery O2 Flow Rate FiO2 09/05/16 10:03 Room Air 50 09/05/16 09:43 Nasal Cannula 09/05/16 08:00 98.1 96 18 144/68 93 09/05/16 04:00 Room Air 09/05/16 04:00 98.0 96 20 145/65 95 09/05/16 00:00 97.8 96 22 125/59 95 09/05/16 00:00 Room Air 09/04/16 20:00 98.8 91 20 126/68 93 09/04/16 20:00 90 09/04/16 20:00 Room Air 09/04/16 16:00 97.5 90 18 148/70 93 09/04/16 15:50 18 09/04/16 12:00 98.1 109 18 165/85 93 09/05/16 09/05/16 09/05/16 07:00 15:00 23:00 Intake Total 100 ml Output Total 250 ml Balance -150 ml Result Diagram: 09/03/1691109/03/16911 Laboratory Results Laboratory Tests Test 09/05/16 07:25 Fibrinogen 389 mg/dL Carcinoembryonic Antigen 1.7 NG/ML Imaging Studies Last [address] 09/05/16 0000 Signed Impressions: Service Date/Time: Monday, September 05, 2016 08:47 - CONCLUSION: 1. No worrisome masses. Please see above. 2. Dilatation of the aorta 4.3 cm. 3. Atherosclerosis. Addy Hillman MD Abdomen/Pelvis CT 09/05/16 0000 Signed Impressions: Service Date/Time: Monday, September 05, 2016 08:47 - CONCLUSION: 1. Fat containing umbilical hernias. 2. Extensive atherosclerosis. 3. Indeterminate low-density lesion in the liver, incompletely characterized without contrast. 4. Basilar air space disease and atelectasis with small pericardial effusion. 5. Abnormal appearance of the uterus as described above. A pelvic ultrasound will be helpful for further assessment on a nonemergent outpatient basis. Addy Hillman MD Administered Medications Medications (Trade) Dose Ordered Sig/Virgilio Route PRN Reason Start Time Stop Time Status Last Admin Dose Admin IV Flush (NS Flush) 2 ml UNSCH PRN IV FLUSH FLUSH AFTER USING IV ACCESS 07/15/16 19:45 08/12/16 05:30 IV Flush (NS Flush) 2 ml BID IV FLUSH 07/15/16 21:00 09/05/16 09:00 Levothyroxine Sodium (Synthroid) 150 mcg DAILY@06 PO 07/16/16 06:00 09/05/16 05:02 Liothyronine Sodium (Cytomel) 5 mcg DAILY PO 07/16/16 09:00 09/05/16 09:29 Insulin Detemir (Levemir Inj) 5 units HS SQ 07/30/16 21:00 Hold 09/03/16 20:17 Melatonin (Melatonin) 5 mg HS PO 07/30/16 21:00 09/04/16 21:50 Acetaminophen (Tylenol) 500 mg Q6H PRN PO FEVER >100.4 08/13/16 17:15 08/29/16 00:12 Mupirocin (Bactroban 2% Oint) 1 applic Q12HR TOPICAL 08/15/16 15:00 09/05/16 09:00 Hydrocortisone (Hydrocortisone 1% Cream) 1 applic Q8H TOPICAL 08/15/16 20:00 09/05/16 04:50 Lactobacillus Acidophilus (Lactinex) 1 tab TID PO 08/16/16 09:00 09/05/16 09:29 Vancomycin HCl 125 mg 125 mg QID PO 08/25/16 18:00 09/09/16 17:59 09/05/16 09:29 Potassium Chloride/Lactated Ringer's (KCl Inj/Lr 1000 ml Inj) 1,010 ml @ 42 mls/hr Q24H IV 09/02/16 00:00 09/03/16 04:17 Morphine Sulfate (Morphine Inj) 2 mg Q4HR PRN IM Pain 1-10 09/03/16 16:15 09/05/16 09:35 Haloperidol Lactate (Haldol Inj) 1 mg Q6H PRN IM Psychosis, delirium 09/03/16 16:15 Hold 09/04/16 09:17 Heparin Sodium (Porcine) (Heparin Inj) 5,000 units Q12HR SQ 09/04/16 09:00 09/05/16 09:29 Aspirin (Ecotrin Ec) 81 mg DAILY PO 09/05/16 09:00 09/05/16 09:34 Carvedilol (Coreg) 3.125 mg Q12HR PO 09/05/16 09:00 09/05/16 09:34 Objective Remarks GENERAL: Incoherent middle aged female, sitting up in chair in nad. SKIN: Warm and dry. HEAD: Normocephalic. EYES: No injection or drainage. NECK: Supple, trachea midline. CARDIOVASCULAR: Regular rate and rhythm RESPIRATORY: Breath sounds equal bilaterally. No accessory muscle use. GASTROINTESTINAL: Abdomen soft, non-tender, nondistended. EXTREMITIES: No cyanosis. right BKA, left lower extremity with dry gangrenous changes of the toes. NEUROLOGICAL: awake. does not follow commands, does not answer questions. Assessment/Plan Assessment 61y/o with rapidly progressive ischemia of the extremities and multiple wounds of the lower extremities. --dilated cardiomyopathy EF 20-30% dating back to 2014. --s/p right leg AKA --severe ischemia of LLE, several toes with dry gangrene --h/o left oophorectomy --Cholecystectomy --Hernia repair --Cardiomyopathy --Hypothyroidism --Hypertension --Diabetes. Plan 1. CT ab/pelvis and CT chest reviewed. CT ab/pelvis shows abnormal uterus, possible mass, will obtain pelvic ultrasound for further evaluation as well as CA-125. Attending Statement The exam, history, and the medical decision-making described in the above note were completed with the assistance of the mid-level provider. I reviewed and agree with the findings presented. I attest that I had a [id number] encounter with the patient on the same day, and personally performed and documented my assessment and findings in the medical record. Francesca Peterson Sep 05, 2016 11:24 Jose Wagoner MD Sep 06, 2016 00:07
[2016-09-05] MEDS: DRONABINOL 2.5 MG CAP PO SCH ×2 (12:26→16:42)
[2016-09-05 13:55] LABS: HDL CHOLESTEROL 25.2 MG/DL (40.0-60.0)
[2016-09-05 14:06] LABS: HEMATOCRIT 28.7 % (35.0-46.0); MEAN CELL VOLUME 76.7 FL (80.0-100.0); MEAN CORPUSCULAR HEMOGLOBIN 23.4 PG (27.0-34.0); MEAN CORPUSCULAR HGB CONC 30.6 % (32.0-36.0); PLATELET COUNT 693 TH/MM3 (150-450); RED BLOOD COUNT 3.75 MIL/MM3 (4.00-5.30); RED CELL DISTRIBUTION WIDTH 17.7 % (11.6-17.2)
[2016-09-05 14:09] LABS: REVIEW FLAG FINAL
[2016-09-05] MEDS: POTASSIUM CHLORIDE INJ 20 MEQ in LACTATED RINGER'S 1000 ML INJ 1,000 ML IV SCH (15:19)
[2016-09-05 16:00] VITALS: BP 109/78; PULSE 86; RESP 18; TEMP 97; O2SAT 97
--- NOTE | 2016-09-05 16:28 | HHI.PR ---
Subjective Remarks Follow-up for encephalopathy and chronic lower showing many wounds. The patient is sitting up on the bedside with family. Family reports her mentation seems much more clear today. She does note that she is in the hospital. She is not sure who the president is. She is able to speak normal words, but rambles incoherently. Family is inquiring about topical oxygen therapy and transfer to tertiary care. Reportedly she was complaining of buttocks pain earlier. Objective Vitals Vital Signs Date Time Temp Pulse Resp B/P Pulse Ox O2 Delivery O2 Flow Rate FiO2 09/05/16 10:03 Room Air 50 09/05/16 09:43 Nasal Cannula 09/05/16 08:00 98.1 96 18 144/68 93 09/05/16 04:00 Room Air 09/05/16 04:00 98.0 96 20 145/65 95 09/05/16 00:00 97.8 96 22 125/59 95 09/05/16 00:00 Room Air 09/04/16 20:00 98.8 91 20 126/68 93 09/04/16 20:00 90 09/04/16 20:00 Room Air I/O 09/04/16 09/04/16 09/04/16 09/05/16 09/05/16 09/05/16 07:00 15:00 23:00 07:00 15:00 23:00 Intake Total 100 ml 360 ml 240 ml 100 ml Output Total 250 ml 350 ml 500 ml 250 ml Balance -150 ml 10 ml -260 ml -150 ml Intake Oral 100 ml 360 ml 240 ml 100 ml IV Total 0 ml Output Urine Total 250 ml 350 ml 500 ml 250 ml # Bowel Movements 1 1 0 1 Result Diagram: 09/05/16 1320 09/03/16 0912 Imaging Last Impressions Chest CT 09/05/16 0000 Signed Impressions: Service Date/Time: Monday, September 05, 2016 08:47 - CONCLUSION: 1. No worrisome masses. Please see above. 2. Dilatation of the aorta 4.3 cm. 3. Atherosclerosis. Addy Hillman MD Abdomen/Pelvis CT 09/05/16 0000 Signed Impressions: Service Date/Time: Monday, September 05, 2016 08:47 - CONCLUSION: 1. Fat containing umbilical hernias. 2. Extensive atherosclerosis. 3. Indeterminate low-density lesion in the liver, incompletely characterized without contrast. 4. Basilar air space disease and atelectasis with small pericardial effusion. 5. Abnormal appearance of the uterus as described above. A pelvic ultrasound will be helpful for further assessment on a nonemergent outpatient basis. Addy Hillman MD Lumbar Puncture Fluoroscopy 08/29/16 0000 Signed Impressions: Service Date/Time: Monday, August 29, 2016 16:39 - CONCLUSION: Uncomplicated fluoroscopically guided lumbar puncture with pressures as above. Alfredo Etienne MD Brain MRI 08/25/16 0000 Signed Impressions: Service Date/Time: Thursday, August 25, 2016 19:01 - CONCLUSION: Chronic atrophic and small vessel ischemic changes without any evidence for acute hemorrhage or mass effect. Smith Boateng MD Chest X-Ray 08/19/16 0000 Signed Impressions: Service Date/Time: Friday, August 19, 2016 18:46 - CONCLUSION: 1. Bibasilar streakiness consistent with atelectasis and/or infiltrates. 2. Cardiomegaly. 3. Poor inspiratory result. Shamar Banuelos MD Upper Extremity Ultrasound 07/28/16 0000 Signed Impressions: Service Date/Time: Thursday, July 28, 2016 14:34 - CONCLUSION: No DVT is identified within the right upper extremity. Alfredo Eng MD Head CT 07/19/16 0000 Signed Impressions: Service Date/Time: Tuesday, July 19, 2016 09:58 - CONCLUSION: No acute intracranial findings. João Otoole MD Foot X-Ray 07/16/16 0000 Signed Impressions: Service Date/Time: Saturday, July 16, 2016 17:34 - CONCLUSION: 1. Nonspecific soft tissue swelling. No acute bone destruction demonstrated. 2. Mild talonavicular and navicular/cuneiform degenerative changes. 3. Second through fifth hammertoe. 4. Moderate-sized heel spur. Alfredo Sneed MD Objective Remarks GENERAL: Well-developed well-nourished. In no acute distress. SKIN: Warm and dry. Left foot with gangrenous toes and left ankle with dressing , CDI. HEENT: Normocephalic. Pupils equal and round. Mucous membranes pink and moist. CARDIOVASCULAR: Regular rate and rhythm. No murmur appreciated. RESPIRATORY: No accessory muscle use. Clear to auscultation. Breath sounds equal bilaterally. GASTROINTESTINAL: Abdomen soft, non-tender, nondistended. Bowel sounds x4. MUSCULOSKELETAL: Right postoperative AKA, wound appears clean. LLE ischemic changes. NEUROLOGICAL: Awake and alert. Moves upper and lower extremities spontaneously. Speaks with normal words, but incoherent thoughts. Procedures 08/08/2016 PROCEDURE 1. Selective right lower extremity arteriogram. 2. Balloon angioplasty with a 4 mm x 2200 mm and then a 5 x 200 mm Medtronic angioplasty balloon of the right superficial femoral and proximal popliteal artery. 07/31/2016 Excision and debridement of both legs, extensive necrotic wounds approximately 30 x 25 cm area on each side, total 1000 to 1100 cm square, down to the subcutaneous tissue and tendon on the left side. 09/03/2016 Right [id number] amputation A/P Problem List: (1) Cellulitis of left lower extremity ICD Code: L03.116 Status: Resolved (2) Neuropathic pain ICD Code: M79.2 Status: Chronic (3) Delirium ICD Code: R41.0 Status: Acute (4) Chronic kidney disease (CKD) ICD Code: N18.9 Status: Chronic (5) Peripheral vascular occlusive disease ICD Code: I73.9 Status: Chronic (6) Delirium due to another medical condition ICD Code: F05 Status: Acute (7) Anemia ICD Code: D64.9 Status: Chronic (8) Pain ICD Code: R52 Status: Acute (9) PVD (peripheral vascular disease) ICD Code: I73.9 Status: Chronic (10) Cardiomyopathy ICD Code: I42.9 Status: Chronic (11) Diabetes mellitus with peripheral angiopathy with gangrene ICD Code: E11.52 Status: Acute (12) Hypoalbuminemia ICD Code: E88.09 Status: Acute (13) Ischemic ulcer of right ankle ICD Code: L97.319 Status: Acute (14) Anoxic encephalopathy ICD Code: G93.1 Status: Acute (15) DM type 2, uncontrolled, with neuropathy ICD Code: E11.40 Status: Chronic (16) CHF (congestive heart failure) ICD Code: I50.9 Status: Chronic Assessment and Plan Assessment and Plan Pt. is 61-year-old female, with multiple admissions, with history of cellulitis of legs, severe PVD, diabetes and cardiomyopathy EF of 30% [facility] when she became more altered lethargic and hypoxic. Rapid response team was called and transferred patient to ICU. In the ICU patient remained confused and lethargic responsive to pain with a stable blood pressure and saturation of 100% on 40% face mask. Patient then improved and was transferred to regular medical/ surgical unit. During this hospitalization, plastic surgery, podiatry, vascular surgery followed this patient. Both podiatry and plastic surgery recommended hyperbaric treatments and future skin graft if wound beds are healed. Vascular surgery recommended against amputation and stated that her leg blood supply is adequate. Unfortunately, hyperbaric treatments can only be done in the outpatient setting if patient can go home. It cannot be done while in-patient or from SNF due to financial constraints. Our attempt to transfer patient to [facility] was not successful. - Chronic lower ext wound - s/p right AKA. - Peripheral vascular disease - Severe neuropathic pain - Start aspirin - Check lipid profile - start statin if LFTs not elevated - Vascular surgery on board - Since hyperbaric tx is not a viable option and patient cannot be discharged home, alternatives were explained for topical oxygen therapy, Numobag - Delirium improving some, trial Numobag when available - consult wound care physician for management - Severe acute Delirium - likely combination of anoxic encephalopathy and delirium -exhaustive workup has been performed, see previous notes - 09/05, EMR reviewed. - Could consider transfer to tertiary care for rheumatology evaluation - Appreciate input from neurology, hematology, palliative care - EEG 09/04 pending -brain MRI (repeat) canaceled due to patient becoming agitated - d/w Dr. Rodriguez - C. Diff colitis - All other abx discontinued and patient is currently on Vancomycin PO. - UTI - Microbiology grew ESBL - Received Doxycycline -Diabetes mellitus - Coverage with SSI. Monitor Accu-Cheks. Monitor for hypoglycemia. -Hypothyroidism - continue levothyroxine 150 g daily. - Hypertension - Cardiomyopathy - EF 3540% -Start carvedilol low dose - Moderate malnutrition - Consulted GI for eval for possible PEG tube. Started Marinol to stimulate appetite. - Abnormal uterine appearance - seen on abdominal and pelvis CT - probable fibroid - Pelvic ultrasound ordered Full code. Heparin SQ. Written by Jamel Castellano, acting as scribe for Dr. Elliott on 09/05/16 at 16:28. Attending Statement This note was transcribed by mukul Castellano. I, Dr. Maeve Elliott personally performed the history, physical exam, and medical decision making; and confirmed the accuracy of the information in the transcribed note. Additionally - I discussed with CM - she is awaiting word from [facility] about possible transfer. Discussed with Dr. Cee as well, no evidence of underlying malignancy at this time. Discussed with Dr. Rodriguez - patient's mentation has improved greatly today with holding sedation. She became very agitated with attempted MRI, Dr. Rodriguez recommended to hold MRI and avoid sedation at this time. Patient likely has combination of hypoxic encepahlopathy and delirium from pain and sedating medications, which have all been discontinued. I communicated this with one of the patient's sisters who came out to inquire about this. Pt's son rerequesting we start numo bag LOREN - I am not familiar with this treatment. Previously the patient was too agitated for this. Discussed with patient's nurse she is not aware if we have the equipment. Will likely need to consult wound care physician for appropriate use of this modality. Discussed also with patient's son to try to control pain with nonsedating medications and a transfer to tertiary care center may make the patient more disoriented. At this time he is pushing for transfer to tertiary care center so we will continue to try to help with this request. Pt's daughter Blanche apparently serves as HCS, however she was not present at time of my visit. Authenticated by Dr. Maeve Elliott on 09/05/16 at 21:44. Problem Qualifiers (1) Diabetes mellitus with peripheral angiopathy with gangrene: Qualified Code: E11.52 - Type 2 diabetes mellitus with diabetic peripheral angiopathy and gangrene, with long-term current use of insulin (2) CHF (congestive heart failure): Jamel Castellano Sep 05, 2016 16:28 Maeve Elliott MD Sep 05, 2016 21:56
[2016-09-05 20:00] VITALS: BP 105/55; PULSE 80; PULSE 86; RESP 20; TEMP 98.1; O2SAT 92
[2016-09-05] MEDS: MELATONIN 5 MG TAB PO SCH (21:01)
--- NOTE | 2016-09-05 21:27 | HHI.HCPN ---
Reason for visit a. To assist with evaluation and management of symptoms including: delirium , pain, lethargy. b. To assist medical decision maker(s) with: better understanding of current medical conditions; weighing benefits/burdens of medical treatment options; making medical treatment decisions. . Subjective/Interval History Patient has had a better day. Speech has improved. She is speaking in words, not unintelligible gibberish and there are meaningful phrases. She is eating small amounts, though her sisters , who are visiting , noted her pocketing food. Son believes pain is fairly well controlled. There is still episodic calling out and it remains uncertain to what extent this is pain, delirium, or angst. Patient cannot quantify or otherwise describe symptoms. . . Family/friend interactions Spoke for approximately 20 minutes with daughter and son. We reviewed new test results -- CT chest, CT abdomen/pelvis, tumor markers, We discussed that abnormality in uterus might be a fibroid and daughter indicated that her mother had been diagnosed in the past with fibroids. A pelvis sonogram has been ordered -- apparently it could not be done today due to inadequate urine in the bladder when attempted. MRI with contrast was canceled due to apparent concern for agitation and understandable reluctance to sedate her given she is feeling better and previous attempts at sedation with even small amounts of medication had left her quite obtunded. Daughter and son, however, continue to feel this is important based on their conversation with Dr. Rodriguez. I let them know that if the patient's cognitive status continues to improve, the MRI becomes less important. Daughter and son are still wanting to find a way to get the patient to a tertiary care center. Dr. Alejo had told me he had tried several times to accomplish this and could not find an accepting physician. I believe the children are now looking at [place]. . Advance Directives Living Will: Never completed Health Care Surrogate: Never completed Durable Power of Flanging Operator: Completed, but not made available Advance Directive Specifics Date completed: Family reports there is a completed POA document -- not available to us at this time. Unknown date. . Health Care Surrogate(s): is reportedly the health care POA. Even if there is no documented designation of health care POA or surrogate, he would serve as proxy. Spoke with in person on 08/12/16. He tells me how he knows nothing about health care and is fine if patient's daughter Blanche serves as proxy. As does not want to serve, it would fall to both son and daughter. Patient 's son also opts out (as he is out of town often) therefore leaving decision- making to patient's daughter Blanche. . Documented care wishes: No documented wishes of patient's expressed health care goals/preferences. . Objective Vital Signs Date Time Temp Pulse Resp B/P Pulse Ox O2 Delivery O2 Flow Rate FiO2 09/05/16 16:00 97.0 86 18 109/78 97 09/05/16 10:03 Room Air 50 09/05/16 09:43 Nasal Cannula 09/05/16 08:00 98.1 96 18 144/68 93 09/05/16 04:00 Room Air 09/05/16 04:00 98.0 96 20 145/65 95 09/05/16 00:00 97.8 96 22 125/59 95 09/05/16 00:00 Room Air Intake & Output 09/05/16 09/05/16 07:00 19:00 Intake Total 340 ml 240 ml Output Total 750 ml 300 ml Balance -410 ml -60 ml Intake Oral 340 ml 240 ml Output Urine Total 750 ml 300 ml # Bowel Movements 1 0 . Physical Exam CONSTITUTIONAL/GENERAL: Less agitated today. Has some meaningful words but still repeats words. . . Diagnostic Tests Laboratory Laboratory Tests Test 09/03/16 09/05/16 09/05/16 09:12 07:25 13:20 White Blood Count 10.0 TH/MM3 11.0 TH/MM3 (4.0-11.0) (4.0-11.0) Red Blood Count 2.99 MIL/MM3 3.75 MIL/MM3 (4.00-5.30) (4.00-5.30) Hemoglobin 7.5 GM/DL 8.8 GM/DL (11.6-15.3) (11.6-15.3) Hematocrit 22.9 % 28.7 % (35.0-46.0) (35.0-46.0) Mean Corpuscular Volume 76.5 FL 76.7 FL (80.0-100.0) (80.0-100.0) Mean Corpuscular Hemoglobin 24.9 PG 23.4 PG (27.0-34.0) (27.0-34.0) Mean Corpuscular Hemoglobin 32.6 % 30.6 % Concent (32.0-36.0) (32.0-36.0) Red Cell Distribution Width 18.1 % 17.7 % (11.6-17.2) (11.6-17.2) Platelet Count 482 TH/MM3 693 TH/MM3 (150-450) (150-450) Mean Platelet Volume 6.5 FL 6.7 FL (7.0-11.0) (7.0-11.0) Sodium Level 144 MEQ/L (136-145) Potassium Level 3.7 MEQ/L (3.5-5.1) Chloride Level 101 MEQ/L (98-107) Carbon Dioxide Level 41.2 MEQ/L (21.0-32.0) Anion Gap 2 MEQ/L (5-15) Blood Urea Nitrogen 17 MG/DL (7-18) Creatinine 0.85 MG/DL (0.50-1.00) Estimat Glomerular Filtration 68 ML/MIN (>89) Rate Random Glucose 62 MG/DL (74-106) Calcium Level 8.1 MG/DL (8.5-10.1) Fibrinogen 389 mg/dL (227-377) Triglycerides Level 217 MG/DL (42-150) Cholesterol Level 146 MG/DL (120-200) LDL Cholesterol 77 MG/DL (0-99) HDL Cholesterol 25.2 MG/DL (40.0-60.0) Cholesterol/HDL Ratio 5.79 RATIO Carcinoembryonic Antigen 1.7 NG/ML (0.2-5.0) CA 125 Antigen 22.2 U/ML (0.0-30.2) . Result Diagram: 09/05/16 1320 09/03/16 0912 Imaging Last Impressions Chest CT 09/05/16 0000 Signed Impressions: Service Date/Time: Monday, September 05, 2016 08:47 - CONCLUSION: 1. No worrisome masses. Please see above. 2. Dilatation of the aorta 4.3 cm. 3. Atherosclerosis. Addy Hillman MD Abdomen/Pelvis CT 09/05/16 0000 Signed Impressions: Service Date/Time: Monday, September 05, 2016 08:47 - CONCLUSION: 1. Fat containing umbilical hernias. 2. Extensive atherosclerosis. 3. Indeterminate low-density lesion in the liver, incompletely characterized without contrast. 4. Basilar air space disease and atelectasis with small pericardial effusion. 5. Abnormal appearance of the uterus as described above. A pelvic ultrasound will be helpful for further assessment on a nonemergent outpatient basis. Addy Hillman MD Lumbar Puncture Fluoroscopy 08/29/16 0000 Signed Impressions: Service Date/Time: Monday, August 29, 2016 16:39 - CONCLUSION: Uncomplicated fluoroscopically guided lumbar puncture with pressures as above. Alfredo Etienne MD Brain MRI 08/25/16 0000 Signed Impressions: Service Date/Time: Thursday, August 25, 2016 19:01 - CONCLUSION: Chronic atrophic and small vessel ischemic changes without any evidence for acute hemorrhage or mass effect. Smith Boateng MD Chest X-Ray 08/19/16 0000 Signed Impressions: Service Date/Time: Friday, August 19, 2016 18:46 - CONCLUSION: 1. Bibasilar streakiness consistent with atelectasis and/or infiltrates. 2. Cardiomegaly. 3. Poor inspiratory result. Shamar Banuelos MD Upper Extremity Ultrasound 07/28/16 0000 Signed Impressions: Service Date/Time: Thursday, July 28, 2016 14:34 - CONCLUSION: No DVT is identified within the right upper extremity. Alfredo Eng MD Head CT 07/19/16 0000 Signed Impressions: Service Date/Time: Tuesday, July 19, 2016 09:58 - CONCLUSION: No acute intracranial findings. João Otoole MD Foot X-Ray 07/16/16 0000 Signed Impressions: Service Date/Time: Saturday, July 16, 2016 17:34 - CONCLUSION: 1. Nonspecific soft tissue swelling. No acute bone destruction demonstrated. 2. Mild talonavicular and navicular/cuneiform degenerative changes. 3. Second through fifth hammertoe. 4. Moderate-sized heel spur. Alfredo Sneed MD . Procedures 07/31/2016 Excision and debridement of both legs, extensive necrotic wounds approximately 30 x 25 cm area on each side, total 1000 to 1100 cm square, down to the subcutaneous tissue and tendon on the left side. 08/08/2016 1. Selective right lower extremity arteriogram. 2. Balloon angioplasty with a 4 mm x 2200 mm and then a 5 x 200 mm Medtronic angioplasty balloon of the right superficial femoral and proximal popliteal artery. Note that patient had these additional procedures on prior admissions: * Bilateral lower extremity wound debridements 05/15/16 * Bilateral LE Debridements and Left SFA angioplasty on 06/23/16 Right AKA 09/02/16 . Assessment and Plan Disease Oriented Problem List: (1) complicated/infected/necrotic foot and leg wounds (2) PVD (peripheral vascular disease) Comment: With infected/nonhealing wounds and gangrene (3) DM (diabetes mellitus), type 2, uncontrolled, periph vascular complic (4) CHF (congestive heart failure) (5) Hypertension (6) Cellulitis of left lower extremity (7) Delirium due to another medical condition (8) VT (ventricular tachycardia) (9) Ulcer of heel and midfoot (10) Hypothyroidism (11) Anemia (12) Urinary tract infection Comment: Cx of 08/11/16 growing out E coli ESBL . (13) [place] light chain disease (14) Hypoalbuminemia (15) Uterine mass Comment: Abnormality of uncertain significance seen on CT of 09/05/16 . Symptom Scale: (1) Pain 0-10 Scale: 0 Comment: Unable to quantify/qualify pain -- too delirious agitated. Had AKA on 09/02/16 so likely has post-op pain. . . (2) Confusion 0-10 Scale: Unable to quantify Comment: Confusion is probably multifactorial. Patient apparently was cognitively sharp up until about 05/13/2016. Has had intermittent confusion since including hallucinations and disorientation. Now with severe agitated delirium. . . (3) Lethargy 0-10 Scale: Unable to quantify Comment: Was lethargic 09/02/16 and multiple sedating meds were stopped. Seems to cycle between extreme agitation and over-sedation. . (4) Delirium 0-10 Scale: Unable to quantify Comment: probably multifactorial Pertinent Non-Medical Issues Psychosocial: Psychosocial support from and daughter (lives locally). Son in [place] is very involved, but is often working out of the country. Spiritual: Sikhism. Had been a member of [employer]. Legal: Family reports there is a completed POA for finance and health care. and patient's son are OK yielding decision making to patient's daughter. Ethical issues impacting care: Patient is currently incapacitated due to delirium. . Important Contacts * Alfredo Lemos (spouse) [phone] * Kalpesh (son) [phone] * Blanche (daughter) [phone] . Prognosis The patient has severe peripheral vascular disease and accompanying refractory lower extremity wounds. Wounds have worsened in spite of aggressive care beginning in March 2016. She has undergone re-vascularization procedures on both lower extremities since May. Wounds went on to involve tendon structures in the feet. She went to right sided AKA on 09/02/16. We have not been able to control her delirium which is having a profound effect on prognosis. She is either extremely agitated / confused or on a very small amount of medication becomes overly lethargic. Prognosis will depend also on whether or not she can heal well at the stump and whether or not the LLE wounds can be controlled. . . Code Status: Full Code Plan * Decision making: Patient is currently incapacitated to make her own health care decisions. She is confused and it is unclear if/when she will regain capacity. The patient's son and have opted out of decision making have both opted out of decision making leaving daughter -- Blanche -- as the proxy. Family is communicating well with each other. * CODE STATUS: FULL CODE * * Goals of medical treatment: Currently desire ongoing aggressive care. * * Confusion: Her confusion/delirium is severe with terrible agitation at times. We are unable to find a cause. Efforts to control agitation with even small amounts of sedating medication appear to lead to oversedation. Given her elevated [place] light chains, I have ordered a viscosity study. I am wondering if high viscosity could explain combination of poor wound healing AND mental status changes. Recommend considering heme/onc input to see if [place] light chain elevation is just due to infection or if amyloidosis, Waldenstrom's ; Myeloma, etc, might be playing a role here. * * Pain: Pain appears mostly secondary to ischemic pain and wound pain in the lower extremities and now post-op pain from amputation of 09/02/16. She may also have some lower extremity pain secondary to diabetic neuropathy (now off her gabapentin) . Patient is unable to quantify or qualify her pain adequately due to her cognitive challenges. She apparently had a negative reaction to fentanyl. She became too sedated on higher dose gabapentin. Very low dose methadone was stopped on 09/02/16 due to oversedation. . PRN IV morphine order now in place. . when she is agitated, it is difficult to differentiate delirium from pain. * * Palliative care has felt like a failure in regards to helping to manage symptoms in this very challenging and sad case. We either have the patient agitated/confused/miserable, OR, on relatively low doses of medications, have her lethargic. Our team cannot explain why her symptoms are so refractory. From a palliative care team perspective, we would support family's desire of transfer to a tertiary care center if possible. Dr. Alejo tells me he has tried multiple times and is unable to find an accepting physician. Palliative care is uncertain what to try next. We could certainly get her more comfortable if goals were "comfort measures only," but freedom from pain and agitated delirium appears like it would require an amount of sedation where she would not be eating/drinking. * * Palliative care will continue to follow the patient to assist with symptom management and to further clarify goals of medical treatment as the clinical course evolves. . Time Spent Total Floor Time (mins): 30 (Total floor time included chart review, above referenced discussion with daughter and son, and documentation. ) Face to Face Time (mins): 10 >50% Counseling/Coord of Care: Yes Attestation To help prompt me to consider important information that might be impacting today's encounter and assessment, information from prior notes written by myself or my colleagues may have been "brought forward" into today's note. My signature on this note, however, is an attestation that I personally performed the exam, history, and/or decision-making noted today, and, unless otherwise indicated, the interactions with patient, family, and staff as well as the review of records all occurred today. I also attest that the listed assessment and stated plan reflect my best clinical judgment today based on the combination of historical information, prior notes, and today's exam/ interactions. When time spent is documented, it refers only to time spent today by the signer, or if indicated, combined time spent today by collaborating physician/nurse practitioner. . Alton Ohara MD Sep 05, 2016 21:27
--- NOTE | 2016-09-05 22:34 | MG ---
cc: BOB BRANDT MD Lab No: [id number] Date: 09/05/16 Age: 61 Sex: F Race: 1955 A 61-year-old, confusion. 2-3 Hz activity with admixed 4-5 Hz theta activity 20-50 microvolts occurring in a generalized fashion. Limited driving with photic stimulation. Moderate right greater than left frontotemporal myogenic high-frequency artifact. Single lead EKG showing sinus rhythm with premature contractions and artifact. INTERPRETATION Moderate encephalopathy. Clinical correlation. Bob Brandt MD MG/ /9:45 PM /10:21 PM
--- NOTE | 2016-09-05 23:15 | RADRPT ---
EXAM DATE/TIME: 09/05/2016 19:53 [facility] COMPARISON: CT ABDOMEN & PELVIS W/O CONTRAST, September 05, 2016, 8:47. INDICATIONS : Abnormal pelvic on CT. MEDICAL HISTORY : Hypercholesterolemia. Hypertension. Thyroid disease. Seizures. Peripheral vascular disease. Arthrit is. Osteoporsis. Back pain. Diabetes. MRSA SURGICAL HISTORY : Cholecystectomy. Angioplasty. Left oophorectomy. ENCOUNTER: Initial ACUITY: 1 day PAIN SCORE: 0/10 LOCATION: Bilateral pelvis MEASUREMENTS: UTERUS: 10.0 x 6.0 x 6.9 cm ENDOMETRIAL STRIPE: 11 mm RIGHT OVARY: Non visualized LEFT OVARY: Surgically absent FINDINGS: UTERUS: Enlarged. Endometrium appears prominent. RIGHT OVARY: Nonvisualized LEFT OVARY: Reportedly absent MISCELLANEOUS: No free fluid. CONCLUSION: Enlarged uterus with prominence of the endometrium. Alfredo Etienne MD on September 05, 2016 at 23:11 Board Certified Radiologist. This report was verified electronically.
[2016-09-06] VITALS (7 sets, daily range): BP systolic 124–149; BP diastolic 58–71; PULSE 83–97; RESP 17–20; TEMP 97.5–99.1; O2SAT 92–97
[2016-09-06] MEDS: HYDROCORTISONE 1% CREAM 30 GM TOPICAL SCH ×3 (04:00→20:00)
[2016-09-06] MEDS: MORPHINE SULFATE 4 MG/ML INJ IM PRN ×4 (05:34→23:28)
[2016-09-06] MEDS: LEVOTHYROXINE SODIUM 150 MCG TAB PO SCH (05:35)
[2016-09-06] MEDS: INSULIN ASPART SUPPLEMENTAL SCALE SQ SCH ×4 (05:36→21:00)
[2016-09-06] MEDS: SODIUM CHLORIDE 0.9% FLUSH 5 ML FLUSH IV FLUSH SCH ×2 (09:00→21:00)
[2016-09-06] MEDS: MUPIROCIN 2% OINT 22 GM TUBE TOPICAL SCH ×2 (09:00→21:00)
[2016-09-06] MEDS: VANCOMYCIN 500 MG VIAL (FOR ORAL USE ONLY) PO SCH ×4 (09:22→21:32)
[2016-09-06] MEDS: HEPARIN SODIUM - SQ 10,000 UNITS/ML VIAL SQ SCH ×2 (09:22→21:31)
[2016-09-06] MEDS: LACTOBACILLUS ACIDOPHILUS TAB PO SCH ×3 (09:22→17:33)
[2016-09-06] MEDS: CARVEDILOL 3.125 MG TAB PO SCH ×2 (09:23→21:29)
[2016-09-06] MEDS: LIOTHYRONINE SODIUM 5 MCG TAB PO SCH (09:23)
[2016-09-06] MEDS: ASPIRIN EC 81 MG TABEC PO SCH (09:23)
[2016-09-06 10:57] LABS: AUTOMATED NEUTROPHIL # 10.5 TH/MM3 (1.8-7.7); BASOPHIL # 0.2 TH/MM3 (0-0.2); BASOPHIL % 1.3 % (0.0-2.0); EOSINOPHIL # 0.2 TH/MM3 (0-0.4); EOSINOPHIL % 1.8 % (0.0-4.0); HEMATOCRIT 30.7 % (35.0-46.0); LYMPH % 13.8 % (9.0-44.0); LYMPHOCYTE # 1.9 TH/MM3 (1.0-4.8); MEAN CORPUSCULAR HEMOGLOBIN 23.1 PG (27.0-34.0); MEAN CORPUSCULAR HGB CONC 30.1 % (32.0-36.0); MONO % 5.3 % (0.0-8.0); NEUT % 77.8 % (16.0-70.0); PLATELET COUNT 753 TH/MM3 (150-450); RED BLOOD COUNT 3.99 MIL/MM3 (4.00-5.30); RED CELL DISTRIBUTION WIDTH 17.9 % (11.6-17.2); WHITE BLOOD COUNT 13.5 TH/MM3 (4.0-11.0)
[2016-09-06 11:05] LABS: HEMO FLAGS AUTO DIFF
[2016-09-06 11:37] LABS: BANDS 4 % (0-6); METAMYELOCYTES 2 % (0-1); MYELOCYTES 3 % (0-0); NEUTROPHIL # MANUAL DIFF 11.3 TH/MM3 (1.8-7.7); POLYS (SEG NEUTROPHILS) 75 % (16-70); WBC DIFF SAMPLE 100
[2016-09-06 11:38] LABS: PLATELET ESTIMATE SMEAR HIGH (NORMAL); PLATELET MORPHOLOGY NORMAL (NORMAL); SCAN/DIFF FINAL DIFF MANUAL
[2016-09-06 11:39] LABS: ALKALINE PHOSPHATASE 152 U/L (45-117); ALT (GPT) 40 U/L (10-53); ANION GAP 11 MEQ/L (5-15); AST (GOT) 99 U/L (15-37); BICARBONATE 28.9 MEQ/L (21.0-32.0); BLOOD UREA NITROGEN 9 MG/DL (7-18); CHLORIDE 97 MEQ/L (98-107); GLOMERULAR FILTRATION RATE 77 ML/MIN (>89); POTASSIUM 4.1 MEQ/L (3.5-5.1); SODIUM (NA) 137 MEQ/L (136-145); TOTAL BILIRUBIN ADULT 0.5 MG/DL (0.2-1.0)
--- NOTE | 2016-09-06 12:25 | PD.ONC.PN ---
Subjective Subjective Remarks Afebrile overnight. patient remains confused. son at bedside. No overnight events. Objective Data Date Time Temp Pulse Resp B/P Pulse Ox O2 Delivery O2 Flow Rate FiO2 09/06/16 08:53 Room Air 50 09/06/16 08:16 98.2 91 18 142/71 92 09/06/16 04:00 97.9 97 20 149/68 97 09/06/16 00:17 97.8 87 20 124/58 93 09/05/16 20:00 98.1 80 20 105/55 92 09/05/16 20:00 86 09/05/16 20:00 Room Air 50 09/05/16 16:00 97.0 86 18 109/78 97 09/06/16 09/06/16 09/06/16 07:00 15:00 23:00 Intake Total 578 ml Output Total 75 ml Balance 503 ml Result Diagram: 09/06/16 1028 09/06/16 1028 Laboratory Results Laboratory Tests Test 09/05/16 09/06/16 13:20 10:28 White Blood Count 11.0 TH/MM3 13.5 TH/MM3 Red Blood Count 3.75 MIL/MM3 3.99 MIL/MM3 Hemoglobin 8.8 GM/DL 9.2 GM/DL Hematocrit 28.7 % 30.7 % Mean Corpuscular Volume 76.7 FL 77.0 FL Mean Corpuscular Hemoglobin 23.4 PG 23.1 PG Mean Corpuscular Hemoglobin 30.6 % 30.1 % Concent Red Cell Distribution Width 17.7 % 17.9 % Platelet Count 693 TH/MM3 753 TH/MM3 Mean Platelet Volume 6.7 FL 6.4 FL Neutrophils (%) (Auto) 77.8 % Lymphocytes (%) (Auto) 13.8 % Monocytes (%) (Auto) 5.3 % Eosinophils (%) (Auto) 1.8 % Basophils (%) (Auto) 1.3 % Neutrophils # (Auto) 10.5 TH/MM3 Lymphocytes # (Auto) 1.9 TH/MM3 Monocytes # (Auto) 0.7 TH/MM3 Eosinophils # (Auto) 0.2 TH/MM3 Basophils # (Auto) 0.2 TH/MM3 CBC Comment AUTO DIFF Differential Total Cells 100 Counted Neutrophils % (Manual) 75 % Band Neutrophils % 4 % Lymphocytes % 12 % Monocytes % 4 % Neutrophils # (Manual) 11.3 TH/MM3 Metamyelocytes 2 % Myelocytes 3 % Differential Comment FINAL DIFF MANUAL Platelet Estimate HIGH Platelet Morphology Comment NORMAL Sodium Level 137 MEQ/L Potassium Level 4.1 MEQ/L Chloride Level 97 MEQ/L Carbon Dioxide Level 28.9 MEQ/L Anion Gap 11 MEQ/L Blood Urea Nitrogen 9 MG/DL Creatinine 0.76 MG/DL Estimat Glomerular Filtration 77 ML/MIN Rate Random Glucose 186 MG/DL Calcium Level 8.3 MG/DL Total Bilirubin 0.5 MG/DL Aspartate Amino Transf 99 U/L (AST/SGOT) Alanine Aminotransferase 40 U/L (ALT/SGPT) Alkaline Phosphatase 152 U/L Total Protein 6.8 GM/DL Albumin 1.6 GM/DL Administered Medications Medications (Trade) Dose Ordered Sig/Virgilio Route PRN Reason Start Time Stop Time Status Last Admin Dose Admin IV Flush (NS Flush) 2 ml UNSCH PRN IV FLUSH FLUSH AFTER USING IV ACCESS 07/15/16 19:45 08/12/16 05:30 IV Flush (NS Flush) 2 ml BID IV FLUSH 07/15/16 21:00 09/06/16 09:00 Levothyroxine Sodium (Synthroid) 150 mcg DAILY@06 PO 07/16/16 06:00 09/06/16 05:35 Liothyronine Sodium (Cytomel) 5 mcg DAILY PO 07/16/16 09:00 09/06/16 09:23 Insulin Detemir (Levemir Inj) 5 units HS SQ 07/30/16 21:00 Hold 09/03/16 20:17 Melatonin (Melatonin) 5 mg HS PO 07/30/16 21:00 09/05/16 21:01 Acetaminophen (Tylenol) 500 mg Q6H PRN PO FEVER >100.4 08/13/16 17:15 08/29/16 00:12 Mupirocin (Bactroban 2% Oint) 1 applic Q12HR TOPICAL 08/15/16 15:00 09/06/16 09:00 Hydrocortisone (Hydrocortisone 1% Cream) 1 applic Q8H TOPICAL 08/15/16 20:00 09/06/16 04:00 Lactobacillus Acidophilus (Lactinex) 1 tab TID PO 08/16/16 09:00 09/06/16 09:22 Vancomycin HCl 125 mg 125 mg QID PO 08/25/16 18:00 09/09/16 17:59 09/06/16 09:22 Potassium Chloride/Lactated Ringer's (KCl Inj/Lr 1000 ml Inj) 1,010 ml @ 42 mls/hr Q24H IV 09/02/16 00:00 09/05/16 15:19 Morphine Sulfate (Morphine Inj) 2 mg Q4HR PRN IM Pain 1-10 09/03/16 16:15 09/06/16 09:22 Haloperidol Lactate (Haldol Inj) 1 mg Q6H PRN IM Psychosis, delirium 09/03/16 16:15 Hold 09/04/16 09:17 Heparin Sodium (Porcine) (Heparin Inj) 5,000 units Q12HR SQ 09/04/16 09:00 09/06/16 09:22 Dronabinol (Marinol) 2.5 mg BID@11,16 PO 09/05/16 11:00 09/05/16 16:42 Aspirin (Ecotrin Ec) 81 mg DAILY PO 09/05/16 09:00 09/06/16 09:23 Carvedilol (Coreg) 3.125 mg Q12HR PO 09/05/16 09:00 09/06/16 09:23 Objective Remarks GENERAL: confused female, sitting up on side of bed SKIN: Warm and dry. HEAD: Normocephalic. EYES: No injection or drainage. NECK: Supple, trachea midline. CARDIOVASCULAR: Regular rate and rhythm RESPIRATORY: Breath sounds equal bilaterally. No accessory muscle use. GASTROINTESTINAL: Abdomen soft, non-tender, nondistended. EXTREMITIES: No cyanosis. right BKA, LLE w/ dry gangrene of toes NEUROLOGICAL: awake, confused. answers some questions. tracks with eyes. Assessment/Plan Assessment 61y/o with rapidly progressive ischemia of the extremities and multiple wounds of the lower extremities. --dilated cardiomyopathy EF 20-30% dating back to 2015. --s/p right leg AKA --severe ischemia of LLE, several toes with dry gangrene --h/o left oophorectomy --Cholecystectomy --Hernia repair --Cardiomyopathy --Hypothyroidism --Hypertension --Diabetes. Plan 1. Pelvic u/s shows thickened endometrium. CA-125 WNL. discussed these results with son and patient. Patient's son asked me to order an MRI of the abdomen, but to wait until tomorrow when the sister will be here to accompany the patient down to MRI. 2. will consult [facility] oncology Thursday to see if they can offer any further insight Attending Statement The exam, history, and the medical decision-making described in the above note were completed with the assistance of the mid-level provider. I reviewed and agree with the findings presented. I attest that I had a [id number] encounter with the patient on the same day, and personally performed and documented my assessment and findings in the medical record. No underlying malignancy identified thus far is frustrated. continue supportive care. palliative care on board Francesca Peterson Sep 06, 2016 12:25 Jose Wagoner MD Sep 07, 2016 00:08
[2016-09-06] MEDS: DRONABINOL 2.5 MG CAP PO SCH ×2 (12:37→16:43)
--- NOTE | 2016-09-06 15:46 | HHI.PR ---
Subjective Remarks Per nursing, patient remains confused, but has been calm, not yelling out. Patient denies any pain. Objective Vitals Vital Signs Date Time Temp Pulse Resp B/P Pulse Ox O2 Delivery O2 Flow Rate FiO2 09/06/16 14:52 95 Nasal Cannula 21 09/06/16 12:03 97.5 92 18 138/69 95 09/06/16 08:53 Room Air 50 09/06/16 08:16 98.2 91 18 142/71 92 09/06/16 04:00 97.9 97 20 149/68 97 09/06/16 00:17 97.8 87 20 124/58 93 09/05/16 20:00 98.1 80 20 105/55 92 09/05/16 20:00 86 09/05/16 20:00 Room Air 50 09/05/16 16:00 97.0 86 18 109/78 97 I/O 09/05/16 09/05/16 09/05/16 09/06/16 09/06/16 09/06/16 07:00 15:00 23:00 07:00 15:00 23:00 Intake Total 100 ml 240 ml 120 ml 578 ml Output Total 250 ml 300 ml 50 ml 75 ml Balance -150 ml -60 ml 70 ml 503 ml Intake Oral 100 ml 240 ml 120 ml 120 ml IV Total 458 ml Output Urine Total 250 ml 300 ml 50 ml 75 ml # Bowel Movements 1 0 0 Result Diagram: 09/06/16 1028 09/06/16 1028 Objective Remarks GENERAL: Well-nourished, well-developed pleasant female patient. SKIN: Warm and dry. HEAD: Normocephalic. EYES: No scleral icterus. No injection or drainage. NECK: Supple, trachea midline. No JVD or lymphadenopathy. CARDIOVASCULAR: Regular rate and rhythm without murmurs, gallops, or rubs. RESPIRATORY: Breath sounds equal and clear to auscultation bilaterally. No accessory muscle use. GASTROINTESTINAL: Bowel sounds present. Abdomen soft, non-tender, nondistended. EXTREMITIES: Left lower extremity with large ischemic ulceration 20 cm, entire circumference of lower leg with necrotic tendon, depth 0.3 cm, several necrotic toes. right LE s/p AKA incision c/d/i well healing. Neuro: Alert and calm, oriented to self only. Repetitive speech pattern. Some confabulation. Procedures 08/08/2016 PROCEDURE 1. Selective right lower extremity arteriogram. 2. Balloon angioplasty with a 4 mm x 2200 mm and then a 5 x 200 mm Medtronic angioplasty balloon of the right superficial femoral and proximal popliteal artery. 07/31/2016 Excision and debridement of both legs, extensive necrotic wounds approximately 30 x 25 cm area on each side, total 1000 to 1100 cm square, down to the subcutaneous tissue and tendon on the left side. 09/03/2016 Right [id number] amputation A/P Problem List: (1) Ischemic ulcer of right ankle ICD Code: L97.319 Status: Acute (2) Neuropathic pain ICD Code: M79.2 Status: Chronic (3) Delirium ICD Code: R41.0 Status: Acute (4) Chronic kidney disease (CKD) ICD Code: N18.9 Status: Chronic (5) Peripheral vascular occlusive disease ICD Code: I73.9 Status: Chronic (6) Anemia ICD Code: D64.9 Status: Chronic (7) Pain ICD Code: R52 Status: Chronic (8) PVD (peripheral vascular disease) ICD Code: I73.9 Status: Chronic (9) Cardiomyopathy ICD Code: I42.9 Status: Chronic (10) Diabetes mellitus with peripheral angiopathy with gangrene ICD Code: E11.52 Status: Acute (11) Hypoalbuminemia ICD Code: E88.09 Status: Acute (12) Anoxic encephalopathy ICD Code: G93.1 Status: Acute (13) DM type 2, uncontrolled, with neuropathy ICD Code: E11.40 Status: Chronic (14) CHF (congestive heart failure) ICD Code: I50.9 Status: Chronic (15) JAYLAN (acute kidney injury) ICD Code: N17.9 Status: Resolved (16) Severe protein-calorie malnutrition ICD Code: E43 Status: Acute (17) Hypertension ICD Code: I10 Status: Chronic (18) Anemia in chronic illness ICD Code: D63.8 Status: Acute Assessment and Plan Assessment and Plan Pt. is 61-year-old female, with multiple admissions, with history of cellulitis of legs, severe PVD, diabetes and cardiomyopathy EF of 30% was at the [facility] for inpatient rehabilitation facility when she became more altered lethargic and hypoxic. Rapid response team was called and transferred patient to ICU. In the ICU patient remained confused and lethargic responsive to pain with a stable blood pressure and saturation of 100% on 40% face mask. Patient then improved and was transferred to regular medical/ surgical unit. During this hospitalization, plastic surgery, podiatry, vascular surgery followed this patient. Both podiatry and plastic surgery recommended hyperbaric treatments and future skin graft if wound beds are healed. Vascular surgery recommended against amputation and stated that her leg blood supply is adequate. Unfortunately, hyperbaric treatments can only be done in the outpatient setting if patient can go home. It cannot be done while in-patient or from SNF due to financial constraints. Our attempt to transfer patient to [facility] was not successful. Patient's daughter Blanche who is acting healthcare surrogate requests transfer to [facility] for evaluation of the patient's encephalopathy. If transfer unsuccessful she would like [facility]. -s/p right AKA for nonhealing ischemic wound. well healing. management per Dr. Taylor. - Peripheral vascular disease with nonhealing left lower extremity wound with necrotic tendon, several necrotic toes-status post consultation with 3 vascular surgeons, plastic surgery, to force dispatcher. Multiple opinions that the leg is not salvageable, at this time family declining amputation. Cont asa, start Lipitor 80 mg at bedtime, ALT is elevated however not above 3 times limit of upper normal. Will repeat LFTs to ensure stability. Family requesting to pursue topical hyperbaric oxygen therapy. I discussed yesterday with Dr. Aquino, our hyperbaric oxygen specialist, he does not perform this service. We'll attempt to start topical hyperbaric oxygen therapy on Thursday after contacting the [employer] so our nurses can have an in-service on this. Patient's daughter Blanche is requesting wound therapy which is in disagreement with the wound care nurses recommendations. She declined a reconsult podiatry or plastic surgery. I recommended she talk with wound care nurse and she is agreeable to this. - Severe neuropathic pain - continue Neurontin. Morphine 2 mg intramuscular when necessary - she appears to be tolerating this. Today patient denies pain. -Encephalopathy - Severe acute Delirium - likely combination of anoxic and metabolic encephalopathy and delirium - improving after pain medications decreased and Haldol DC'd. -exhaustive workup has been performed including negative LP, see previous notes -Daughter and healthcare surrogate Blanche is requesting that we proceed with MRI of brain with and without contrast, patient has a previous negative MRI brain. MRI brain was put on hold yesterday as the patient had improved and could not tolerate MRI without sedation, I had discussed this with the neurologist Dr. Rodriguez and since the patient was improving we did not want to sedate her and possibly worsen the delirium, diagnostic yield of the MRI and therapeutic yield is likely to be very low. Patient's daughter Blanche as well as her son are very insistent to proceed despite risk of worsening delirium with giving ativan with procedure. Will order MRI brain with 0.5 mg IV ativan before, see if family can accompany her down to keep her calm. - Could consider transfer to tertiary care for neurology evaluation, consider high dose steroid trial, however rheumatologic workup here has not indicated autoimmune encephalitis. I counseled about side effects of steroids, Blanche wants to hold off on this for now. - Appreciate input from neurology, hematology, palliative care - EEG 09/04 -moderate encephalopathy. -family wants transfer to tertiary care center for evaluation of encephalopathy. [facility] has declined transfer. Currently awaiting word from [place] [facility] on transfer. I counseled patient's daughter Blanche that outpatient workup can also be pursued if transfer is not successful. Also counseled that delirium may be worsened by a change in scene. Currently the patient is improving and I'm hopeful that she will continue to improve. Patient's family essentially feels unsatisfied with the diagnosis and wants an answer as to her mental status changes, even if it may not improve her outcome. - C. Diff colitis - All other abx discontinued and patient is currently on Vancomycin PO. - UTI - Microbiology grew ESBL -now treated. -Diabetes mellitus type II, uncontrolled - Coverage with SSI. Monitor Accu- Cheks. Monitor for hypoglycemia. -Hypothyroidism - continue levothyroxine 150 g daily. Will repeat TSH. - Hypertension - Cardiomyopathy - EF 3540% -Continue carvedilol low dose. Start JOYCE inhibitor if blood pressure will tolerate and renal function remained stable. S/p cardiology eval. -Acute kidney injury, resolved. -Chronic kidney disease stage III. Improved, creatinine stable around 1 today. -Severe malnutrition - dietary consult noted. Hopefully patient's by mouth intake will improve as she improves mental status. Consulted GI for eval for possible PEG tube. Started Marinol to stimulate appetite. Daughter Blanche wants to give the patient several days for improvement prior to considering PEG tube. Continue ensure, add multivitamin. - Abnormal uterine appearance - seen on abdominal and pelvis CT -pelvic ultrasound showing prominent endometrium, tumor markers negative, no history of vaginal bleeding -Heme on consult was requested per oncology service. Consider endometrial biopsy as outpatient. Anemia of chronic illness - stable, monitor transfuse prn Hb<7. Full code. Heparin SQ. Spent 30 minutes via phone updating the patient's daughter Blanche. Discharge Planning Attempt transfer to [place] per family request for evaluation of encephalopathy. If declined [facility] with topical hyperbaric oxygen therapy via [employer]. Problem Qualifiers (1) Ischemic ulcer of right ankle: Qualified Code: L97.313 - Ischemic ulcer of right ankle, with necrosis of muscle (2) Diabetes mellitus with peripheral angiopathy with gangrene: Qualified Code: E11.52 - Type 2 diabetes mellitus with diabetic peripheral angiopathy and gangrene, with long-term current use of insulin (3) CHF (congestive heart failure): Maeve Elliott MD Sep 06, 2016 15:46
[2016-09-06] MEDS ORDERED: LORazepam 2 MG/ML VIAL IV PUSH ONE (18:15)
[2016-09-06] MEDS: ATORVASTATIN 80 MG TAB PO SCH (21:30)
[2016-09-06] MEDS: MELATONIN 5 MG TAB PO SCH (21:30)
[2016-09-07] VITALS (8 sets, daily range): BP systolic 111–158; BP diastolic 56–79; PULSE 71–99; RESP 16–20; TEMP 97.6–98.5; O2SAT 93–100
[2016-09-07] MEDS: HYDROCORTISONE 1% CREAM 30 GM TOPICAL SCH ×3 (04:00→20:00)
[2016-09-07] MEDS: LEVOTHYROXINE SODIUM 150 MCG TAB PO SCH (04:40)
[2016-09-07] MEDS: MORPHINE SULFATE 4 MG/ML INJ IM PRN (04:40)
[2016-09-07] MEDS: INSULIN ASPART SUPPLEMENTAL SCALE SQ SCH ×4 (06:03→21:00)
[2016-09-07 07:13] LABS: AUTOMATED NEUTROPHIL # 7.5 TH/MM3 (1.8-7.7); BASOPHIL % 0.4 % (0.0-2.0); EOSINOPHIL # 0.2 TH/MM3 (0-0.4); EOSINOPHIL % 2.3 % (0.0-4.0); HEMATOCRIT 25.5 % (35.0-46.0); LYMPH % 19.4 % (9.0-44.0); MEAN CELL VOLUME 75.6 FL (80.0-100.0); MEAN CORPUSCULAR HEMOGLOBIN 24.4 PG (27.0-34.0); MEAN CORPUSCULAR HGB CONC 32.2 % (32.0-36.0); MONO % 6.8 % (0.0-8.0); NEUT % 71.1 % (16.0-70.0); PLATELET COUNT 580 TH/MM3 (150-450); RED BLOOD COUNT 3.38 MIL/MM3 (4.00-5.30); WHITE BLOOD COUNT 10.5 TH/MM3 (4.0-11.0)
[2016-09-07 07:19] LABS: HEMO FLAGS AUTO DIFF
[2016-09-07 07:30] LABS: ALT (GPT) 44 U/L (10-53); ANION GAP 10 MEQ/L (5-15); AST (GOT) 96 U/L (15-37); BICARBONATE 28.4 MEQ/L (21.0-32.0); BLOOD UREA NITROGEN 7 MG/DL (7-18); CHLORIDE 100 MEQ/L (98-107); GLOMERULAR FILTRATION RATE 107 ML/MIN (>89); POTASSIUM 3.7 MEQ/L (3.5-5.1); SODIUM (NA) 138 MEQ/L (136-145)
[2016-09-07 07:32] LABS: ALKALINE PHOSPHATASE 127 U/L (45-117); TOTAL BILIRUBIN ADULT 0.4 MG/DL (0.2-1.0)
[2016-09-07] MEDS: LACTOBACILLUS ACIDOPHILUS TAB PO SCH ×3 (09:00→18:35)
[2016-09-07] MEDS: MUPIROCIN 2% OINT 22 GM TUBE TOPICAL SCH ×2 (09:00→21:00)
[2016-09-07] MEDS: CARVEDILOL 3.125 MG TAB PO SCH ×2 (09:00→21:37)
[2016-09-07] MEDS: SODIUM CHLORIDE 0.9% FLUSH 5 ML FLUSH IV FLUSH SCH ×2 (09:00→21:00)
[2016-09-07] MEDS: HEPARIN SODIUM - SQ 10,000 UNITS/ML VIAL SQ SCH ×2 (09:00→21:37)
[2016-09-07 09:18] LABS: EOSINOPHILS 3 % (0-4); METAMYELOCYTES 2 % (0-1); MYELOCYTES 2 % (0-0); NEUTROPHIL # MANUAL DIFF 8.6 TH/MM3 (1.8-7.7); POLYS (SEG NEUTROPHILS) 77 % (16-70); PROMYELOCYTES 1 % (0-0); WBC DIFF SAMPLE 100
[2016-09-07 09:24] LABS: PLATELET ESTIMATE SMEAR HIGH (NORMAL); PLATELET MORPHOLOGY NORMAL (NORMAL); SCAN/DIFF FINAL DIFF MANUAL
[2016-09-07] MEDS: ASPIRIN EC 81 MG TABEC PO SCH (10:43)
[2016-09-07] MEDS: LIOTHYRONINE SODIUM 5 MCG TAB PO SCH (10:43)
[2016-09-07] MEDS: VANCOMYCIN 500 MG VIAL (FOR ORAL USE ONLY) PO SCH ×4 (10:45→21:38)
[2016-09-07] MEDS: DRONABINOL 2.5 MG CAP PO SCH ×2 (11:55→17:15)
--- NOTE | 2016-09-07 15:38 | HHI.GIFU ---
Subjective Remarks Patient is sleeping in bed, difficult to arouse, hasn't been eating much, at bed side. I have discussed possible PEG tube with him, but would like to wait on step daughter Tanisha as she handles all decisions. Patient was declined by [facility]. Objective Vitals I&O Vital Signs Date Time Temp Pulse Resp B/P Pulse Ox O2 Delivery O2 Flow Rate FiO2 09/07/16 09:30 98.5 83 18 158/72 93 09/07/16 04:00 98.1 84 20 119/79 94 09/07/16 00:00 97.6 81 20 111/56 95 09/06/16 20:00 85 09/06/16 20:00 98.1 83 20 148/70 95 09/06/16 20:00 Room Air 09/06/16 16:15 99.1 87 17 130/62 95 I/O 09/06/16 09/06/16 09/06/16 09/07/16 09/07/16 09/07/16 07:00 15:00 23:00 07:00 15:00 23:00 Intake Total 578 ml 50 ml 790 ml 292 ml Output Total 75 ml 150 ml Balance 503 ml -100 ml 790 ml 292 ml Intake Oral 120 ml 50 ml 120 ml IV Total 458 ml 670 ml 292 ml Output Urine Total 75 ml 150 ml # Bowel Movements 0 0 Laboratory Laboratory Tests Test 09/07/16 06:05 White Blood Count 10.5 Red Blood Count 3.38 Hemoglobin 8.2 Hematocrit 25.5 Mean Corpuscular Volume 75.6 Mean Corpuscular Hemoglobin 24.4 Mean Corpuscular Hemoglobin 32.2 Concent Red Cell Distribution Width 18.0 Platelet Count 580 Mean Platelet Volume 6.4 Neutrophils (%) (Auto) 71.1 Lymphocytes (%) (Auto) 19.4 Monocytes (%) (Auto) 6.8 Eosinophils (%) (Auto) 2.3 Basophils (%) (Auto) 0.4 Neutrophils # (Auto) 7.5 Lymphocytes # (Auto) 2.0 Monocytes # (Auto) 0.7 Eosinophils # (Auto) 0.2 Basophils # (Auto) 0.0 CBC Comment AUTO DIFF Differential Total Cells 100 Counted Neutrophils % (Manual) 77 Lymphocytes % 11 Monocytes % 4 Eosinophils % 3 Neutrophils # (Manual) 8.6 Metamyelocytes 2 Myelocytes 2 Promyelocytes 1 Differential Comment FINAL DIFF MANUAL Platelet Estimate HIGH Platelet Morphology Comment NORMAL Sodium Level 138 Potassium Level 3.7 Chloride Level 100 Carbon Dioxide Level 28.4 Anion Gap 10 Blood Urea Nitrogen 7 Creatinine 0.57 Estimat Glomerular Filtration 107 Rate Random Glucose 145 Calcium Level 8.0 Total Bilirubin 0.4 Aspartate Amino Transf 96 (AST/SGOT) Alanine Aminotransferase 44 (ALT/SGPT) Alkaline Phosphatase 127 Total Protein 5.8 Albumin 1.4 Imaging Last Impressions Pelvis Ultrasound 09/05/16 0000 Signed Impressions: Service Date/Time: Monday, September 05, 2016 19:53 - CONCLUSION: Enlarged uterus with prominence of the endometrium. Alfredo Etienne MD Chest CT 09/05/16 0000 Signed Impressions: Service Date/Time: Monday, September 05, 2016 08:47 - CONCLUSION: 1. No worrisome masses. Please see above. 2. Dilatation of the aorta 4.3 cm. 3. Atherosclerosis. Addy Hillman MD Abdomen/Pelvis CT 09/05/16 0000 Signed Impressions: Service Date/Time: Monday, September 05, 2016 08:47 - CONCLUSION: 1. Fat containing umbilical hernias. 2. Extensive atherosclerosis. 3. Indeterminate low-density lesion in the liver, incompletely characterized without contrast. 4. Basilar air space disease and atelectasis with small pericardial effusion. 5. Abnormal appearance of the uterus as described above. A pelvic ultrasound will be helpful for further assessment on a nonemergent outpatient basis. Addy Hillman MD Lumbar Puncture Fluoroscopy 08/29/16 0000 Signed Impressions: Service Date/Time: Monday, August 29, 2016 16:39 - CONCLUSION: Uncomplicated fluoroscopically guided lumbar puncture with pressures as above. Alfredo Etienne MD Brain MRI 08/25/16 0000 Signed Impressions: Service Date/Time: Thursday, August 25, 2016 19:01 - CONCLUSION: Chronic atrophic and small vessel ischemic changes without any evidence for acute hemorrhage or mass effect. Smith Boateng MD Chest X-Ray 08/19/16 0000 Signed Impressions: Service Date/Time: Friday, August 19, 2016 18:46 - CONCLUSION: 1. Bibasilar streakiness consistent with atelectasis and/or infiltrates. 2. Cardiomegaly. 3. Poor inspiratory result. Shamar Banuelos MD Upper Extremity Ultrasound 07/28/16 0000 Signed Impressions: Service Date/Time: Thursday, July 28, 2016 14:34 - CONCLUSION: No DVT is identified within the right upper extremity. Alfredo Eng MD Head CT 07/19/16 0000 Signed Impressions: Service Date/Time: Tuesday, July 19, 2016 09:58 - CONCLUSION: No acute intracranial findings. João Otoole MD Foot X-Ray 07/16/16 0000 Signed Impressions: Service Date/Time: Saturday, July 16, 2016 17:34 - CONCLUSION: 1. Nonspecific soft tissue swelling. No acute bone destruction demonstrated. 2. Mild talonavicular and navicular/cuneiform degenerative changes. 3. Second through fifth hammertoe. 4. Moderate-sized heel spur. Alfredo Sneed MD Physical Exam Physical Examination HEENT: normocephalic; atraumatic; no jaundice. NECK: Neck is supple, no JVD, no lymphadenopathy. CHEST: Chest is clear to auscultation and percussion. CARDIAC: Regular rate and rhythm with no murmur gallop or rubs. ABDOMEN: Soft, nondistended, nontender; no hepatosplenomegaly; bowel sounds are present in all four quadrants. EXTREMITIES: dressing to left foot, R AKA SKIN: Normal; no rash; no jaundice. MANAGER BUSINESS OPERATIONS: sleeping, difficult to arouse Assessment and Plan Plan - Poor PO intake, poor appetite in this patient with complicated medical history admitted on (07/15/16) for AMS, lethargy and hypoxemia- in need for nutrition, with severe vascular dz, recurrent ulcers and wounds. we have been consulted for PEG tube, however, she was started on Marinol recently and her children would like to wait and see how she does over the weekend before they decide. She is currently in the chair, asking for food, yelling and screaming. - C-diff on Vanco - Anemia hgb8.2- No bleeding reported, not clear when was the last time she has had colonoscopy, cea 1.7, Abdomen/Pelvis CT 1. Fat containing umbilical hernias. 2. Extensive atherosclerosis. 3. Indeterminate low-density lesion in the liver, incompletely characterized without contrast. 4. Basilar air space disease and atelectasis with small pericardial effusion. 5. Abnormal appearance of the uterus as described above. A pelvic ultrasound will be helpful for further assessment on a nonemergent outpatient basis. MRI ordered but pending - Liver lesion- CT as above, MRI pending - history of cellulitis of legs, severe PVD, She is s/p right AKA on 09/03/16. - diabetes and cardiomyopathy EF of 30% per attending - severe delirium.Neurology, hematology, ID, plastic surgery, vascular surgery, palliative care on the case. No etiology found for patient's declining status , she was declined by [facility] Plan: - Diabetic diet - Will reassess on Thursday for PEG tube and check with family - AFP - Await MRI - Cont. current measures - Cont. Marinol - Supportive care - Patient seen and examined by Dr. Gupta and myself and this note is written on his behalf Sharon Lemons Sep 07, 2016 15:38
--- NOTE | 2016-09-07 15:49 | HHI.PR ---
Subjective Remarks MRI was not able to be obtained earlier because the daughter was not available to accompany the patient. She did complain of some leg pain this morning. This morning the patient was alert however ate only 3 bites of food and then pushed the REWINDER's hand away. The rest of the days she has been sleeping. Will awaken briefly. No agitation. She has not received any morphine IM today. Objective Vitals Vital Signs Date Time Temp Pulse Resp B/P Pulse Ox O2 Delivery O2 Flow Rate FiO2 09/07/16 09:30 98.5 83 18 158/72 93 09/07/16 04:00 98.1 84 20 119/79 94 09/07/16 00:00 97.6 81 20 111/56 95 09/06/16 20:00 85 09/06/16 20:00 98.1 83 20 148/70 95 09/06/16 20:00 Room Air 09/06/16 16:15 99.1 87 17 130/62 95 I/O 09/06/16 09/06/16 09/06/16 09/07/16 09/07/16 09/07/16 07:00 15:00 23:00 07:00 15:00 23:00 Intake Total 578 ml 50 ml 790 ml 292 ml Output Total 75 ml 150 ml Balance 503 ml -100 ml 790 ml 292 ml Intake Oral 120 ml 50 ml 120 ml IV Total 458 ml 670 ml 292 ml Output Urine Total 75 ml 150 ml # Bowel Movements 0 0 Result Diagram: 09/07/1660409/07/16604 Objective Remarks GENERAL: Well-nourished, well-developed pleasant female patient. SKIN: Warm and dry. HEAD: Normocephalic. EYES: No scleral icterus. No injection or drainage. NECK: Supple, trachea midline. No JVD or lymphadenopathy. CARDIOVASCULAR: Regular rate and rhythm without murmurs, gallops, or rubs. RESPIRATORY: Breath sounds equal and clear to auscultation bilaterally. No accessory muscle use. GASTROINTESTINAL: Bowel sounds present. Abdomen soft, non-tender, nondistended. EXTREMITIES: Left lower extremity with large ischemic ulceration 20 cm, entire circumference of lower leg with necrotic tendon, depth 0.3 cm, several necrotic toes. right LE s/p AKA incision c/d/i well healing. Neuro: Sleeping. Opens eyes briefly but then closes them. Procedures 08/08/2016 PROCEDURE 1. Selective right lower extremity arteriogram. 2. Balloon angioplasty with a 4 mm x 2200 mm and then a 5 x 200 mm Medtronic angioplasty balloon of the right superficial femoral and proximal popliteal artery. 07/31/2016 Excision and debridement of both legs, extensive necrotic wounds approximately 30 x 25 cm area on each side, total 1000 to 1100 cm square, down to the subcutaneous tissue and tendon on the left side. 09/03/2016 Right [id number] amputation A/P Problem List: (1) Ischemic ulcer of right ankle ICD Code: L97.319 Status: Acute (2) Neuropathic pain ICD Code: M79.2 Status: Chronic (3) Delirium ICD Code: R41.0 Status: Acute (4) Chronic kidney disease (CKD) ICD Code: N18.9 Status: Chronic (5) Peripheral vascular occlusive disease ICD Code: I73.9 Status: Chronic (6) Anemia ICD Code: D64.9 Status: Chronic (7) Pain ICD Code: R52 Status: Chronic (8) PVD (peripheral vascular disease) ICD Code: I73.9 Status: Chronic (9) Cardiomyopathy ICD Code: I42.9 Status: Chronic (10) Diabetes mellitus with peripheral angiopathy with gangrene ICD Code: E11.52 Status: Acute (11) Hypoalbuminemia ICD Code: E88.09 Status: Acute (12) Anoxic encephalopathy ICD Code: G93.1 Status: Acute (13) DM type 2, uncontrolled, with neuropathy ICD Code: E11.40 Status: Chronic (14) CHF (congestive heart failure) ICD Code: I50.9 Status: Chronic (15) JAYLAN (acute kidney injury) ICD Code: N17.9 Status: Resolved (16) Severe protein-calorie malnutrition ICD Code: E43 Status: Acute (17) Hypertension ICD Code: I10 Status: Chronic (18) Anemia in chronic illness ICD Code: D63.8 Status: Acute Assessment and Plan Assessment and Plan Pt. is 61-year-old female, with multiple admissions, with history of cellulitis of legs, severe PVD, diabetes and cardiomyopathy EF of 30% was at the [facility] facility when she became more altered lethargic and hypoxic. Rapid response team was called and transferred patient to ICU. In the ICU patient remained confused and lethargic responsive to pain with a stable blood pressure and saturation of 100% on 40% face mask. Patient then improved and was transferred to regular medical/ surgical unit. During this hospitalization, plastic surgery, podiatry, vascular surgery followed this patient. Both podiatry and plastic surgery recommended hyperbaric treatments and future skin graft if wound beds are healed. Vascular surgery recommended against amputation and stated that her leg blood supply is adequate. Unfortunately, hyperbaric treatments can only be done in the outpatient setting if patient can go home. It cannot be done while in-patient or from SNF due to financial constraints. Our attempt to transfer patient to [facility] was not successful. Patient's daughter Blanche who is acting healthcare surrogate requests transfer to [facility] for evaluation of the patient's encephalopathy. If transfer unsuccessful she would like [facility]. -s/p right AKA for nonhealing ischemic wound. Stump well healing. management per Dr. Taylor. - Peripheral vascular disease with nonhealing left lower extremity wound with necrotic tendon, several necrotic toes-status post consultation with 3 vascular surgeons, plastic surgery, to network systems operator. Multiple opinions from podiatry and vascular surgeons that the leg is not salvageable, Dr. Aquino does not think that topical hyperbaric oxygen therapy will have a significant effect, patient is not a candidate for hyperbaric oxygen therapy due to the delirium. At this time family declining amputation. Cont asa, start Lipitor 80 mg at bedtime, ALT is elevated however not above 3 times limit of upper normal. Will repeat LFTs to ensure stability. Family requesting to pursue topical hyperbaric oxygen therapy. I discussed previously with Dr. Aquino, our hyperbaric oxygen specialist, he does not perform this service. We'll attempt to start topical hyperbaric oxygen therapy on Thursday after contacting the [employer] so our nurses can have an in-service on this. Patient's daughter Blanche is requesting wound therapy which is in disagreement with the wound care nurses recommendations. She declined a reconsult podiatry or plastic surgery. I recommended she talk with wound care nurse and she is agreeable to this. - Severe neuropathic pain - continue Neurontin. Morphine 2 mg intramuscular when necessary - she appears to be tolerating this. -Encephalopathy - Severe acute Delirium - likely combination of anoxic and metabolic encephalopathy and delirium - improving after pain medications decreased and Haldol DC'd. -exhaustive workup has been performed including negative LP, see previous notes -Daughter and healthcare surrogate Blanche is requesting that we proceed with MRI of brain with and without contrast, patient has a previous negative MRI brain. MRI brain was put on hold yesterday as the patient had improved and could not tolerate MRI without sedation, I had discussed this with the neurologist Dr. Rodriguez and since the patient was improving we did not want to sedate her and possibly worsen the delirium, diagnostic yield of the MRI and therapeutic yield is likely to be very low. Patient's daughter Blanche as well as her son are very insistent to proceed despite risk of worsening delirium with giving ativan with procedure. Will order MRI brain with 0.5 mg IV ativan before, see if family can accompany her down to keep her calm per their request. - Could consider transfer to tertiary care for neurology evaluation, consider high dose steroid trial, however rheumatologic workup here has not indicated autoimmune encephalitis. I counseled about side effects of steroids, Blanche wants to hold off on this for now. - Appreciate input from neurology, hematology, palliative care - EEG 09/04 -moderate encephalopathy. -family wants transfer to tertiary care center for evaluation of encephalopathy. [facility] has declined transfer. Currently awaiting word from [facility] on transfer. I counseled patient's daughter Blanche that outpatient workup can also be pursued if transfer is not successful. Also counseled that delirium may be worsened by a change in scene. Currently the patient is improving and I'm hopeful that she will continue to improve. Patient's family essentially feels unsatisfied with the diagnosis and wants an answer as to her mental status changes, even if it may not improve her prognosis. In my opinion, the pain from the ischemic leg is likely contributing to the delirium however family not willing to consider additional amputation at this time. - C. Diff colitis - All other abx discontinued and patient is currently on Vancomycin PO. - UTI - Microbiology grew ESBL -now treated. -Diabetes mellitus type II, currently with good Accu-Chek reads- Coverage with SSI. Monitor Accu-Cheks. Monitor for hypoglycemia. -Hypothyroidism - continue levothyroxine 150 g daily. Will repeat TSH. - Hypertension - Cardiomyopathy - EF 3540% -Continue carvedilol low dose. Start JOYCE inhibitor if blood pressure will tolerate and renal function remained stable. S/p cardiology eval. -Acute kidney injury, resolved. -Chronic kidney disease stage III. Improved, creatinine stable around 1 today. -Severe malnutrition - dietary consult noted. Hopefully patient's by mouth intake will improve as she improves mental status. Consulted GI for eval for possible PEG tube. Started Marinol to stimulate appetite. Daughter Blanche wants to give the patient several days for improvement prior to considering PEG tube. Continue ensure, add multivitamin. - Abnormal uterine appearance - seen on abdominal and pelvis CT -pelvic ultrasound showing prominent endometrium, tumor markers negative, no history of vaginal bleeding -Heme on consult was requested per oncology service. Consider endometrial biopsy as outpatient. Anemia of chronic illness - stable, monitor transfuse prn Hb<7. Full code. Heparin SQ. Discussed with at bedside. Discharge Planning Attempt transfer to [facility] per family request for evaluation of encephalopathy. If declined [facility] with topical hyperbaric oxygen therapy via [facility]. Problem Qualifiers (1) Ischemic ulcer of right ankle: Qualified Code: L97.313 - Ischemic ulcer of right ankle, with necrosis of muscle (2) Diabetes mellitus with peripheral angiopathy with gangrene: Qualified Code: E11.52 - Type 2 diabetes mellitus with diabetic peripheral angiopathy and gangrene, with long-term current use of insulin (3) CHF (congestive heart failure): Maeve Elliott MD Sep 07, 2016 15:49
[2016-09-07] MEDS ORDERED: LORazepam 2 MG/ML VIAL IV PUSH ONE (20:15)
[2016-09-07] MEDS ORDERED: GADODIAMIDE PF 287 MG/ML 20 ML VIAL (for RAD MRI) IV ONE (20:45)
[2016-09-07] MEDS: MELATONIN 5 MG TAB PO SCH (21:37)
[2016-09-07] MEDS: ATORVASTATIN 80 MG TAB PO SCH (21:38)
--- NOTE | 2016-09-07 22:22 | RADRPT ---
EXAM DATE/TIME: 09/07/2016 20:26 [facility] COMPARISON: MRI BRAIN W/O CONTRAST, August 25, 2016, 19:01. INDICATIONS : Altered mental status. CONTRAST: 16 cc Omniscan (gadodiamide) IV MEDICAL HISTORY : Hypertension. Hypercholesterolemia. Diabetes mellitus type 2. CHF SURGICAL HISTORY : Cholecystectomy. Umbilical hernia repair. Angioplasty. Right above knee amputation. ENCOUNTER: [facility] ACUITY: 2 months PAIN SCORE: 3/10 LOCATION: Right lower extremity. TECHNIQUE: Multiplanar, multisequence MRI of the brain was performed both prior to and following the administrat ion of paramagnetic contrast. FINDINGS: CEREBRUM: The ventricles are normal for age. No evidence of midline shift, mass lesion, hemorrhage or acute in farction. No extraaxial fluid collections are seen. The pituitary gland and suprasellar cistern are normal in configuration. WHITE MATTER: Mild signal abnormalities are seen in the white matter. POSTERIOR FOSSA: The cerebellum and brainstem are intact. The 4th ventricle is midline. The cerebellopontine angle is unremarkable. The cerebellar tonsils are normal in position. DIFFUSION IMAGING: No focal areas of restricted diffusion are seen. No evidence of acute infarction. EXTRACRANIAL: The visualized portions of the orbits and paranasal sinuses are unremarkable. POST-CONTRAST: No abnormal areas of parenchymal or dural enhancement. No evidence of blood-brain barrier breakdown. CONCLUSION: 1. No acute findings. No significant change from August 25, 2016. No abnormal enhancement post contrast . Mild chronic white matter ischemic changes. Rolando Sharif MD on September 07, 2016 at 22:18 Board Certified Radiologist. This report was verified electronically.
[2016-09-07] MEDS: POTASSIUM CHLORIDE INJ 20 MEQ in LACTATED RINGER'S 1000 ML INJ 1,000 ML IV SCH ×3 (22:53)
[2016-09-08] VITALS (9 sets, daily range): BP systolic 116–154; BP diastolic 63–72; PULSE 70–96; RESP 16–20; TEMP 98.2–99.4; O2SAT 94–99
[2016-09-08] MEDS: HYDROCORTISONE 1% CREAM 30 GM TOPICAL SCH ×3 (04:00→22:22)
[2016-09-08] MEDS: INSULIN ASPART SUPPLEMENTAL SCALE SQ SCH ×4 (05:47→21:00)
[2016-09-08] MEDS: LEVOTHYROXINE SODIUM 150 MCG TAB PO SCH (05:47)
[2016-09-08] MEDS: ASPIRIN EC 81 MG TABEC PO SCH (08:42)
[2016-09-08] MEDS: HEPARIN SODIUM - SQ 10,000 UNITS/ML VIAL SQ SCH ×2 (08:43→22:17)
[2016-09-08] MEDS: SODIUM CHLORIDE 0.9% FLUSH 5 ML FLUSH IV FLUSH SCH ×2 (08:50→22:22)
[2016-09-08] MEDS: VANCOMYCIN 500 MG VIAL (FOR ORAL USE ONLY) PO SCH ×4 (09:00→22:17)
[2016-09-08] MEDS: LIOTHYRONINE SODIUM 5 MCG TAB PO SCH (09:00)
[2016-09-08] MEDS: CARVEDILOL 3.125 MG TAB PO SCH ×2 (09:00→22:17)
[2016-09-08] MEDS: LACTOBACILLUS ACIDOPHILUS TAB PO SCH ×3 (09:00→18:00)
[2016-09-08] MEDS: MUPIROCIN 2% OINT 22 GM TUBE TOPICAL SCH ×2 (09:00→22:21)
[2016-09-08] MEDS: DRONABINOL 2.5 MG CAP PO SCH ×2 (11:00→16:00)
[2016-09-08] MEDS ORDERED: LORazepam 2 MG/ML VIAL IV PUSH ONE (13:00)
--- NOTE | 2016-09-08 13:13 | PD.VS.PN ---
Subjective Subjective/Hospital Course Pt sitting up in bed Daughter at the BS Pt appears to have clear speech this am without repetitive speech Daughter reported pt appears more agitated post Ativan administration (PM dose) Objective Vitals/I&O Date Time Temp Pulse Resp B/P Pulse Ox O2 Delivery O2 Flow Rate FiO2 09/08/16 08:02 98.4 80 20 154/72 99 09/08/16 03:20 98.2 76 16 137/63 99 09/08/16 03:13 70 09/07/16 23:32 97.8 71 16 143/66 100 09/07/16 21:20 98.4 84 16 135/61 97 09/07/16 20:00 Room Air 09/07/16 19:54 99 09/07/16 16:00 97.7 80 18 135/68 93 09/08/16 09/08/16 09/08/16 07:00 15:00 23:00 Intake Total 308 ml Output Total 125 ml Balance 183 ml Physical Exam GENERAL: Alert, agitated, follows commands SKIN: Warm and dry. Incision to Right AKA intact with staple closure, NO D/S/R noted NECK: Supple,No JVD MUSCULOSKELETAL: No cyanosis, or edema. Laboratory Laboratory Tests Test 09/08/16 06:36 Tumor Marker Alpha Fetoprotein 1.3 Imaging Last 48 hours Impressions Brain MRI 09/07/16 0000 Signed Impressions: Service Date/Time: Wednesday, September 07, 2016 20:26 - CONCLUSION: 1. No acute findings. No significant change from August 25, 2016. No abnormal enhancement post contrast. Mild chronic white matter ischemic changes. Rolando Sharif MD Assessment and Plan Plan Plan Pt doing well post operatively after her R AKA OOB to chair Spoke with data acquisition technician, Stocking to be placed this afternoon Continue to apply heel protector for LLE Nasrin Carl [facility] [phone] Nasrin Carl Sep 08, 2016 13:13
--- NOTE | 2016-09-08 13:25 | HHI.GIFU ---
Subjective Remarks Resting in bed, just got back from MRI- was not able to tolerate per daughter. Daughter at bedside. States she is starting to eat more- had Belvita crackers for breakfast- yesterday ate 1/4 of a fish sandwich. Drinking muscle milk. While I was in the room, she took a sip of the muscle milk and spit this back out. Daughter feels that she was improving, but had a set back after receiving ativan and would like to wait 2-3 days before making decision about PEG. ( Audra Bhakta) Objective Vitals I&O Vital Signs Date Time Temp Pulse Resp B/P Pulse Ox O2 Delivery O2 Flow Rate FiO2 09/08/16 08:02 98.4 80 20 154/72 99 09/08/16 03:20 98.2 76 16 137/63 99 09/08/16 03:13 70 09/07/16 23:32 97.8 71 16 143/66 100 09/07/16 21:20 98.4 84 16 135/61 97 09/07/16 20:00 Room Air 09/07/16 19:54 99 09/07/16 16:00 97.7 80 18 135/68 93 I/O 09/07/16 09/07/16 09/07/16 09/08/16 09/08/16 09/08/16 07:00 15:00 23:00 07:00 15:00 23:00 Intake Total 292 ml 350 ml 240 ml 308 ml Output Total 750 ml 50 ml 125 ml Balance 292 ml -400 ml 190 ml 183 ml Intake Oral 350 ml 240 ml 30 ml IV Total 292 ml 278 ml Output Urine Total 750 ml 50 ml 125 ml # Bowel Movements 0 0 0 Laboratory Laboratory Tests Test 09/08/16 06:36 Tumor Marker Alpha Fetoprotein 1.3 Imaging Last Impressions Brain MRI 09/07/16 0000 Signed Impressions: Service Date/Time: Wednesday, September 07, 2016 20:26 - CONCLUSION: 1. No acute findings. No significant change from August 25, 2016. No abnormal enhancement post contrast. Mild chronic white matter ischemic changes. Rolando Sharif MD Pelvis Ultrasound 09/05/16 0000 Signed Impressions: Service Date/Time: Monday, September 05, 2016 19:53 - CONCLUSION: Enlarged uterus with prominence of the endometrium. Alfredo Etienne MD Chest CT 09/05/16 0000 Signed Impressions: Service Date/Time: Monday, September 05, 2016 08:47 - CONCLUSION: 1. No worrisome masses. Please see above. 2. Dilatation of the aorta 4.3 cm. 3. Atherosclerosis. Addy Hillman MD Abdomen/Pelvis CT 09/05/16 0000 Signed Impressions: Service Date/Time: Monday, September 05, 2016 08:47 - CONCLUSION: 1. Fat containing umbilical hernias. 2. Extensive atherosclerosis. 3. Indeterminate low-density lesion in the liver, incompletely characterized without contrast. 4. Basilar air space disease and atelectasis with small pericardial effusion. 5. Abnormal appearance of the uterus as described above. A pelvic ultrasound will be helpful for further assessment on a nonemergent outpatient basis. Addy Hillman MD Lumbar Puncture Fluoroscopy 08/29/16 0000 Signed Impressions: Service Date/Time: Monday, August 29, 2016 16:39 - CONCLUSION: Uncomplicated fluoroscopically guided lumbar puncture with pressures as above. Alfredo Etienne MD Chest X-Ray 08/19/16 0000 Signed Impressions: Service Date/Time: Friday, August 19, 2016 18:46 - CONCLUSION: 1. Bibasilar streakiness consistent with atelectasis and/or infiltrates. 2. Cardiomegaly. 3. Poor inspiratory result. Shamar Banuelos MD Upper Extremity Ultrasound 07/28/16 0000 Signed Impressions: Service Date/Time: Thursday, July 28, 2016 14:34 - CONCLUSION: No DVT is identified within the right upper extremity. Alfredo Eng MD Head CT 07/19/16 0000 Signed Impressions: Service Date/Time: Tuesday, July 19, 2016 09:58 - CONCLUSION: No acute intracranial findings. João Otoole MD Foot X-Ray 07/16/16 0000 Signed Impressions: Service Date/Time: Saturday, July 16, 2016 17:34 - CONCLUSION: 1. Nonspecific soft tissue swelling. No acute bone destruction demonstrated. 2. Mild talonavicular and navicular/cuneiform degenerative changes. 3. Second through fifth hammertoe. 4. Moderate-sized heel spur. Alfredo Sneed MD Physical Exam HEENT: Normocephalic; atraumatic CHEST: CTA CARDIAC: RRR ABDOMEN: Soft, nondistended, nontender; no hepatosplenomegaly; bowel sounds are present in all four quadrants. EXTREMITIES: dressing to left foot, R AKA- incision line well approximated with che SKIN: Red spotted rash to left neck MORGUE ATTENDANT: Alert, confused (YonyAudra Hills GILLES) Assessment and Plan Plan ASSESSMENT: - Malnutrition/Poor PO intake/Decreased appetite. GI was consulted for PEG tube. Spoke with daughter and she feels that her mother was starting to improve as far as her eating and would like to wait 2-3 days while on Marinol to see if that makes a difference. She had Belvita crackers for breakfast- yesterday ate 1/4 of a fish sandwich and had muscle milk earlier. While I was in the room, she took a sip of the muscle milk and spit this back out. Daughter feels that she was improving, but had a set back after receiving ativan and would like to wait 2-3 days before making decision about PEG. - C-diff. No diarrhea at this time. Oral vanco, Lactinex. - Anemia. No bleeding reported, not clear when was the last time she has had colonoscopy, cea 1.7 - Liver lesion. Abdomen/Pelvis CT 1. Fat containing umbilical hernias. 2. Extensive atherosclerosis. 3. Indeterminate low-density lesion in the liver, incompletely characterized without contrast. 4. Basilar air space disease and atelectasis with small pericardial effusion. 5. Abnormal appearance of the uterus as described above. A pelvic ultrasound will be helpful for further assessment on a nonemergent outpatient basis. MRI pending. AFP 1.3. - History of cellulitis of legs, severe PVD, She is s/p right AKA on 09/03/16. - Diabetes and cardiomyopathy EF of 30% per attending - Severe delirium.Neurology, hematology, ID, plastic surgery, vascular surgery, palliative care on the case. No etiology found for patient's declining status , she was declined by [facility] Plan: - SAMANTA- not eating much of this, but daughter states she is eating more- usually stuff that is brought from outside the hospital - Photograph Enlarger consult for calorie count - Cont. Marinol - Await MRI abdomen - Supportive care - Daughter would like to wait 2-3 days before making a decision re: the PEG tube - Patient seen and examined by Dr. Mendoza and myself and this note is written on her behalf (Audra Bhakta) Physician Comments agree with above anemia, elevated lfts we will send additional work-up celiac panel, Zuri, Asma, ama , ceruloplasmin, alp isoenzymes , spring 1 antitrypsin (Sabrina Mendoza MD) Audra Bhakta Sep 08, 2016 13:25 Sabrina Mendoza MD Sep 14, 2016 10:23
--- NOTE | 2016-09-08 14:23 | PD.CONS ---
History of Present Illness Service THREAD CHECKER/ONC Consult Requested By Dr. Cee Reason for Consult thickened endometrial stripe Primary Care Physician Wisam Peterson Diagnoses: History of Present Illness is a 61 years old with multiple admissions over the past several months. She has a history of recurrent cellulitis of legs, severe PVD, diabetes and cardiomyopathy EF of 30%. Patient was recently admitted inpatient underwent evaluation by Vascular surgery. 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 It was determined with Vascular surgery that these were not actively infected and the areas of gangrene and eschar would be addressed when vascular supply better. Patient was discharged to rehab on antibiotics. Patient was at the rehabilitation facility when she became more altered and progressively lethargic and hypoxic. Rapid response team was called and transferred patient to ICU. She has had altered mental status for several months. She has had episodes of agitation and confusion. Mediation with sedative side effects seem to be amplified and causing her to be overly sedated. She is being followed by Palliative Care team and in hopes of trying to figure out what is causing the alteration in her mental status Dr. Cee was consulted for his opinion. CT of abd/pelvis was obtained that shown enlarged uterus...U/S was then obtained that shown thickened endometrial stripe of 11mm. During my visit today she is sedated and unable to give any response. I called her daughter Blanche who is also acting as her health care surrogate. She tells me it has been many years since her mother has had a burr machine operator exam and she is not sure if her mother has had post menopausal bleeding. I explained that I have reviewed her history and imaging and spoken with SUSAN Kim and although the enlarged uterus and thick endometrial stripe is abnormal finding in a post menopausal female, it is highly unlikely that this is contributing to her current altered mental status and vascular compromise. I explained to her that the imaging did not show any other abnormalities such as ascites, enlarged lymph nodes or pelvic masses. I expressed my concern of trying to do a D & C as she would have to be put under anesthesia and this could cause her further problems specifically with her mental status and vascular disease. Blanche, her daughter, agreed and understands that if her mother's condition improves and she regains normal mental status then she can follow up with burr machine operator/onc or reg burr machine operator for either endometrial bx or D & C. Blanche agrees and understands our concerns. 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 coli (urine) - 08/10/2016, 09/14/2016 Past Medical History PVD diabetes uncontrolled recurrent cellulitis hypertension cardiomyopathy obesity hypothyroid Sz (?) history of dermoid cyst Past Surgical History debridement both lower extremities 08/08 RLE arteriogram and balloon angioplasty 08/08 left oophorectomy cholecystectomy hernia repair right above the knee amputation 08/08 Reported Medications per EMR Active Ordered Medications Current Medications Sodium Chloride (NS 1000 ml Inj) 1,000 ml @ 84 mls/hr [id number] IV Last administered on 08/05/16 16:12; Start 07/15/16 at 19:42; Stop 08/18/16 at 15:34 ; Status DC IV Flush (NS Flush) 2 ml UNSCH PRN IV FLUSH FLUSH AFTER USING IV ACCESS Last administered on 08/12/16 05:30; Start 07/15/16 at 19:45 IV Flush (NS Flush) 2 ml BID IV FLUSH Last administered on 09/07/16 21:00; Start 07/15/16 at 21:00 Fentanyl Citrate (fentaNYL INJ) 50 mcg Q3H PRN IV PUSH Pain scale 7-10 &/or sedation Last administered on 07/15/16 21:44; Start 07/15/16 at 19:45; Stop at 11:51; Status DC Famotidine (Pepcid Inj) 20 mg Q12HR IV PUSH Last administered on 07/15/16 20: 19; Start 07/15/16 at 21:00; Stop 07/15/16 at 21:24; Status DC Ondansetron HCl (Zofran Inj) 4 mg Q6H PRN IV NAUSEA OR VOMITING Last administered on 07/31/16 13:23; Start 07/15/16 at 19:45; Stop 08/12/16 at 20:17 ; Status DC Metoclopramide HCl (Reglan Inj) 5 mg Q6H PRN IV NAUSEA OR VOMITING Last administered on 09/06/16 21:32; Start 07/15/16 at 19:45 Docusate Sodium (Colace) 100 mg BID PO Last administered on 08/07/16 21:00; Start 07/15/16 at 21:00; Stop 08/08/16 at 22:08; Status DC Albuterol/ Ipratropium (Duoneb Neb) 1 ampule Q2HR NEB PRN INH WHEEZING; Start 07/15/16 at 19:45 Heparin Sodium (Porcine) (Heparin Inj) 5,000 units Q8HR SQ Last administered on 08/28/16 12:46; Start 07/15/16 at 22:00; Stop 09/03/16 at 23:47; Status DC Miscellaneous Information 1 [id number] XX Last administered on 07/15/16 19:45; Start 07/15/16 at 19:45; Stop 09/04/16 at 03:06; Status DC Chlorhexidine Gluconate (Chlorhexidine 2% Cloth) Taper DAILY@04 TOP Last administered on 07/17/16 03:11; Start 07/16/16 at 04:00; Stop 09/04/16 at 03:06 ; Status DC Chlorhexidine Gluconate (Chlorhexidine 2% Cloth) 3 pack UNSCH PRN TOP HYGIENIC CARE; Start 07/15/16 at 19:45; Stop 09/04/16 at 03:06; Status DC Acetaminophen (Ofirmev Inj) 1,000 mg Q6H PRN IV PAIN SCALE 1 TO 6; Start at 20:00; Stop 07/18/16 at 11:51; Status DC Ketorolac Tromethamine (Toradol Inj) 30 mg Q6H PRN IM PAIN SCALE 1 TO 7; Start 07/15/16 at 20:00; Stop 07/15/16 at 20:10; Status DC Ketorolac Tromethamine (Toradol Inj) 30 mg Q6H PRN IV PUSH PAIN 1-6 Last administered on 07/15/16 20:34; Start 07/15/16 at 20:15; Stop 07/18/16 at 11:51 ; Status DC Carvedilol (Coreg) 25 mg BID PO Last administered on 08/17/16 10:24; Start at 21:00; Stop 08/17/16 at 16:06; Status DC Fluconazole (Diflucan) 75 mg DAILY@17 PO Last administered on 07/16/16 17:03; Start 07/16/16 at 17:00; Stop 07/17/16 at 08:09; Status DC Isosorbide Dinitrate (Isordil) 5 mg Q8HR PO Last administered on 09/02/16 05: 38; Start 07/15/16 at 22:00; Stop 09/03/16 at 23:47; Status DC Lactobacillus Acidophilus (Lactinex) 1 tab TID PO Last administered on 08:32; Start 07/16/16 at 09:00; Stop 08/25/16 at 08:59; Status DC Levofloxacin (Levaquin) 250 mg Q48H PO Last administered on 07/21/16 21:05; Start 07/15/16 at 22:00; Stop 07/23/16 at 16:37; Status DC Levothyroxine Sodium (Synthroid) 150 mcg DAILY@06 PO Last administered on 05:47; Start 07/16/16 at 06:00 Liothyronine Sodium (Cytomel) 5 mcg DAILY PO Last administered on 09/07/16 10: 43; Start 07/16/16 at 09:00 Non-Formulary Medication 325 mg DAILY PO ; Start 07/16/16 at 09:00; Status UNV Miscellaneous (Pill Splitter) 1 ea UNSCH PRN OTHER SEE LABEL COMMENTS; Start at 21:30 Famotidine (Pepcid Inj) 10 mg Q12HR IV PUSH Last administered on 07/17/16 07: 29; Start 07/16/16 at 09:00; Stop 07/18/16 at 10:59; Status DC Aspirin (Ecotrin Ec) 325 mg DAILY PO Last administered on 08/25/16 08:30; Start 07/16/16 at 09:00; Stop 08/25/16 at 16:10; Status DC Etomidate (Amidate Inj) 20 mg STK-MED ONCE .ROUTE ; Start 07/16/16 at 17:07; Stop 07/16/16 at 17:08; Status DC Famotidine (Pepcid Inj) 20 mg Q12HR IV PUSH Last administered on 08/12/16 09: 05; Start 07/18/16 at 21:00; Stop 08/12/16 at 20:17; Status DC Hydromorphone HCl (Dilaudid Pf Inj) 0.5 mg ONCE ONCE IV PUSH Last administered on 08/04/16 18:00; Start 07/18/16 at 11:45; Stop 07/18/16 at 11:46 ; Status DC Hydromorphone HCl (Dilaudid Pf Inj) 0.5 mg Q4H PRN IV PUSH breakthrough pain / dresing lori Last administered on 08/31/16 05:32; Start 07/18/16 at 11:45; Stop 09/03/16 at 23:47; Status DC Acetaminophen/ Hydrocodone Bitart (Radford 5-325 Mg) 1 tab Q6H PRN PO pain 2-10 Last administered on 08/12/16 09:04; Start 07/18/16 at 11:45; Stop 08/12/16 at 20:17; Status DC Diphenhydramine HCl 50 mg 50 mg STK-MED ONCE .ROUTE ; Start 07/19/16 at 11:20; Stop 07/19/16 at 11:21; Status DC Levetriacetam/ Sodium Chloride (Keppra Inj/NS Inj) 105 ml @ 420 mls/hr Q12HR IV Last administered on 07/20/16 08:19; Start 07/19/16 at 13:00; Stop at 16:25; Status DC Haloperidol Lactate (Haldol Inj) 2 mg Q6H PRN IM aggittation Last administered on 07/30/16 01:29; Start 07/19/16 at 12:30; Stop 09/03/16 at 23:47; Status DC Lorazepam 1 mg 1 mg Q6H PRN IV PUSH seizures/agiatation Last administered on 06:09; Start 07/19/16 at 12:30; Stop 09/03/16 at 23:47; Status DC Valproate Sodium 500 mg/Sodium Chloride 105 ml @ 105 mls/hr Q8H IV Last administered on 07/25/16 09:26; Start 07/20/16 at 18:00; Stop 07/25/16 at 09:54; Status DC Cefepime HCl/ Sodium Chloride (Maxipime Inj/NS Inj) 100 ml @ 200 mls/hr Q12H IV Last administered on 07/27/16 02:43; Start 07/21/16 at 15:00; Stop 07/27/16 at 09:00; Status DC Dextrose (D50w (Vial) Inj) 25 ml UNSCH PRN IV PUSH HYPOGLYCEMIA-SEE COMMENTS; Start 07/23/16 at 11:00 Glucagon (Glucagon Inj) 1 mg UNSCH PRN OTHER HYPOGLYCEMIA-SEE COMMENTS; Start 07/23/16 at 11:00 Insulin Aspart (NovoLOG SUPPLEMENTAL SCALE) 1 ACHS SLIDING SCALE SQ Last administered on 09/06/16 12:38; Start 07/23/16 at 11:00 Potassium Chloride (KCl) 40 meq ONCE ONCE PO Last administered on 07/24/16 13: 00; Start 07/24/16 at 13:00; Stop 07/24/16 at 13:01; Status DC Valproic Acid (Depakene) 500 mg Q8HR PO Last administered on 07/26/16 14:52; Start 07/25/16 at 15:00; Stop 07/26/16 at 17:39; Status DC Potassium Chloride (KCl) 30 meq ONCE ONCE PO Last administered on 07/26/16 19: 30; Start 07/26/16 at 16:30; Stop 07/26/16 at 16:36; Status DC Potassium Chloride (KCl) 30 meq ONCE ONCE PO Last administered on 07/26/16 22: 16; Start 07/26/16 at 20:00; Stop 07/26/16 at 20:01; Status DC Valproic Acid (Depakene) 250 mg Q12HR PO Last administered on 09/04/16 09:07; Start 07/27/16 at 09:00; Stop 09/04/16 at 16:16; Status DC Hydromorphone HCl (Dilaudid Pf Inj) 0.5 mg ONCE ONCE IV PUSH Last administered on 07/27/16 10:42; Start 07/27/16 at 10:45; Stop 07/27/16 at 10:46; Status DC Valsartan (Diovan) 80 mg HS PO Last administered on 08/19/16 21:58; Start 07/27 at 21:00; Stop 08/20/16 at 18:58; Status DC Enalaprilat (Vasotec Inj) 1.25 mg Q8H PRN IV PUSH SBP >180 OR DBP >100; Start 07/28/16 at 16:00 Fluconazole 100 mg 100 mg DAILY PO Last administered on 08/05/16 11:34; Start 07/30/16 at 09:45; Stop 08/05/16 at 16:53; Status DC Ceftriaxone Sodium/Sodium Chloride (Rocephin Inj/NS Inj) 100 ml @ 200 mls/hr Q24H IV Last administered on 08/01/16 09:45; Start 07/30/16 at 10:00; Stop 03/10 at 11:59; Status DC Potassium Chloride (KCl) 30 meq ONCE ONCE PO Last administered on 07/30/16 12: 12; Start 07/30/16 at 09:45; Stop 07/30/16 at 09:53; Status DC Potassium Chloride (KCl) 30 meq ONCE ONCE PO Last administered on 07/30/16 14: 00; Start 07/30/16 at 14:00; Stop 07/30/16 at 14:01; Status DC Insulin Detemir (Levemir Inj) 5 units HS SQ Last administered on 09/03/16 20: 17; Start 07/30/16 at 21:00; Status Hold Melatonin (Melatonin) 5 mg HS PO Last administered on 09/07/16 21:37; Start at 21:00 Bupivacaine HCl (Marcaine Pf 0.5% Inj) 30 ml STK-MED ONCE .ROUTE ; Start at 10:12; Stop 07/31/16 at 10:13; Status DC Bupivacaine HCl/ Epinephrine Bitart (Sensorcaine-Epi 0.5% 50 ml Inj) 50 ml STK- MED ONCE .ROUTE ; Start 07/31/16 at 10:12; Stop 07/31/16 at 10:13; Status DC Bacitracin (Baciguent Oint) 15 applic STK-MED ONCE .ROUTE ; Start 07/31/16 at 10: 12; Stop 07/31/16 at 10:13; Status DC Dexamethasone Sodium Phosphate (Decadron Inj) 4 mg STK-MED ONCE .ROUTE Last administered on 07/31/16 10:24; Start 07/31/16 at 10:22; Stop 07/31/16 at 10:23; Status DC Famotidine (Pepcid Inj) 20 mg STK-MED ONCE IV PUSH Last administered on 10:23; Start 07/31/16 at 10:23; Stop 07/31/16 at 10:27; Status DC Fentanyl Citrate 500 mcg 500 mcg STK-MED ONCE .ROUTE ; Start 07/31/16 at 12:13; Stop 07/31/16 at 12:14; Status DC Gentamicin Sulfate/Sodium Chloride (Gentamicin Inj/ NS Irr Btl) 1,005 ml @ 0 mls/hr UNSCH PRN IRRIGATION DRESSING CHANGES; Start 07/31/16 at 13:30 Miscellaneous Information ALL NURSING DEPARTME... UNSCH PRN XX SEE LABEL COMMENTS; Start 07/31/16 at 13:30; Stop 08/01/16 at 13:29; Status DC Propofol (Diprivan 200 Mg/20 ml Inj) 200 mg STK-MED ONCE IV ; Start 07/31/16 at 12:42; Stop 08/04/16 at 12:43; Status DC Ephedrine Sulfate (ePHEDrine/NS 25 MG/5 ML SYR) 25 mg STK-MED ONCE IV ; Start at 12:42; Stop 08/04/16 at 12:43; Status DC Phenylephrine HCl (Neosynephrine/ NS 1000 Mcg/10ml Syr) 1,000 mcg STK-MED ONCE IV ; Start 07/31/16 at 12:42; Stop 08/04/16 at 12:43; Status DC Ondansetron HCl (Zofran Inj) 4 mg STK-MED ONCE IV PUSH ; Start 07/31/16 at 12:42 ; Stop 08/04/16 at 12:43; Status DC Prednisone (Deltasone) 50 mg Q6H PO Last administered on 3/17/17at 04:00; Start 08/07/16 at 16:00; Stop 08/08/16 at 04:01; Status DC Diphenhydramine HCl (Benadryl Inj) 50 mg ONCE ONCE IV ; Start 08/07/16 at 16:00 ; Stop 08/07/16 at 16:01; Status DC Midazolam HCl (Versed Inj) 2 mg STK-MED ONCE .ROUTE ; Start 08/08/16 at 08:24; Stop 08/08/16 at 08:25; Status DC Diphenhydramine HCl (Benadryl Inj) 50 mg STK-MED ONCE .ROUTE ; Start 08/08/16 at 08:24; Stop 08/08/16 at 08:25; Status DC Hydrocortisone Sodium Succinate (SoluCORTEF INJ) 100 mg STK-MED ONCE .ROUTE Last administered on 08/08/16 08:52; Start 08/08/16 at 08:50; Stop 08/08/16 at 08:51; Status DC Ketamine HCl (Ketalar Inj) 500 mg STK-MED ONCE .ROUTE ; Start 08/08/16 at 08:59 ; Stop 08/08/16 at 09:00; Status DC Iohexol 100 ml 100 ml STK-MED ONCE OTHER Last administered on 08/08/16 08:50; Start 08/08/16 at 08:50; Stop 08/08/16 at 09:45; Status DC Nitroglycerin/ Dextrose (Nitroglycerin-Dextrose Inj) 250 ml @ As Directed STK- MED ONCE .ROUTE ; Start 08/08/16 at 09:57; Stop 08/08/16 at 09:58; Status DC Iohexol (Omnipaque 300 Inj) 50 ml STK-MED ONCE OTHER Last administered on 10:10; Start 08/08/16 at 10:10; Stop 08/08/16 at 10:31; Status DC Midazolam HCl (Versed Inj) 2 mg STK-MED ONCE .ROUTE ; Start 08/08/16 at 11:01; Stop 08/08/16 at 11:02; Status DC Fentanyl Citrate (fentaNYL INJ) 250 mcg STK-MED ONCE .ROUTE ; Start 08/08/16 at 11:02; Stop 08/08/16 at 11:03; Status DC Fentanyl Citrate (fentaNYL INJ) 100 mcg STK-MED ONCE .ROUTE ; Start 08/08/16 at 11:02; Stop 08/08/16 at 11:03; Status DC Morphine Sulfate (Morphine Inj) 4 mg STK-MED ONCE .ROUTE ; Start 08/08/16 at 11: 03; Stop 08/08/16 at 11:04; Status DC Morphine Sulfate (*morphine INJ PERIprocedure ONLY) 8 mg STK-MED ONCE .ROUTE Last administered on 08/08/16 11:17; Start 08/08/16 at 11:17; Stop 08/08/16 at 11:18; Status DC Miscellaneous Information ALL NURSING DEPARTME... UNSCH PRN XX SEE LABEL COMMENTS; Start 08/08/16 at 12:30; Stop 08/09/16 at 12:29; Status DC Lorazepam (Ativan) 0.25 mg Q12H PRN PO ANXIETY; Start 08/09/16 at 14:00; Stop 08/11/16 at 14:33; Status DC Propofol (Diprivan 200 Mg/20 ml Inj) 800 mg STK-MED ONCE IV ; Start 08/08/16 at 12:00; Stop 08/11/16 at 12:57; Status DC Heparin Sodium (Porcine) (Heparin Inj) 5,000 units STK-MED ONCE OTHER ; Start at 12:00; Stop 08/11/16 at 13:02; Status DC Potassium Chloride (KCl) 10 meq Q8HR PO Last administered on 08/16/16 06:08; Start 08/11/16 at 14:00; Stop 08/16/16 at 13:59; Status DC Clonazepam (KlonoPIN) 0.5 mg Q8HR PO Last administered on 08/12/16 05:29; Start 08/11/16 at 14:45; Stop 08/12/16 at 12:49; Status DC Diphenhydramine HCl (Benadryl) 25 mg ONCE ONCE PO Last administered on 17:50; Start 08/11/16 at 14:45; Stop 08/11/16 at 15:05; Status DC Clonazepam (KlonoPIN) 0.5 mg Q8H PRN PO ANXIETY Last administered on 08/30/16 22:50; Start 08/12/16 at 12:45; Stop 09/03/16 at 23:47; Status DC Gabapentin (Neurontin) 200 mg TID PO Last administered on 08/12/16 14:59; Start 08/12/16 at 13:00; Stop 08/14/16 at 16:07; Status DC Methadone HCl (Dolophine) 2.5 mg Q12HR PO Last administered on 09/01/16 21:49 ; Start 08/12/16 at 21:00; Stop 09/03/16 at 23:47; Status DC Doxycycline Hyclate (Vibratab) 100 mg Q12HR PO Last administered on 08/16/16 22:41; Start 08/12/16 at 22:45; Stop 08/17/16 at 08:21; Status DC Quetiapine Fumarate (SEROquel) 12.5 mg ONCE ONCE PO Last administered on 10:45; Start 08/13/16 at 10:45; Stop 08/13/16 at 10:50; Status DC Quetiapine Fumarate (SEROquel) 12.5 mg BID PO Last administered on 08/13/16 20 :32; Start 08/13/16 at 21:00; Stop 08/14/16 at 12:41; Status DC Gabapentin (Neurontin) 300 mg ONCE ONCE PO Last administered on 08/13/16 11: 00; Start 08/13/16 at 11:00; Stop 08/13/16 at 11:09; Status DC Acetaminophen (Tylenol) 500 mg Q6H PRN PO FEVER >100.4 Last administered on 08/29 00:12; Start 08/13/16 at 17:15 Quetiapine Fumarate (SEROquel) 6.25 mg HS PO Last administered on 09/01/16 21: 00; Start 08/14/16 at 21:00; Stop 09/03/16 at 23:47; Status DC Quetiapine Fumarate (SEROquel) 6.25 mg DAILY PRN PO agitated delirium Last administered on 09/01/16 12:37; Start 08/14/16 at 12:45; Stop 09/03/16 at 23:47 ; Status DC Gabapentin (Neurontin) 300 mg TID PO Last administered on 08/15/16 13:25; Start 08/15/16 at 09:00; Stop 08/15/16 at 14:20; Status DC Gabapentin (Neurontin) 400 mg ONCE ONCE PO ; Start 08/14/16 at 16:15; Stop at 16:15; Status DC Gabapentin (Neurontin) 200 mg ONCE ONCE PO Last administered on 08/14/16 17: 00; Start 08/14/16 at 16:30; Stop 08/14/16 at 16:33; Status DC Gabapentin (Neurontin) 400 mg TID PO Last administered on 08/18/16 12:34; Start 08/15/16 at 18:00; Stop 08/18/16 at 13:52; Status DC Mupirocin (Bactroban 2% Oint) 1 applic Q12HR TOPICAL Last administered on 21:00; Start 08/15/16 at 15:00 Hydrocortisone 1 applic 1 applic Q8H TOPICAL Last administered on 09/08/16 04: 00; Start 08/15/16 at 20:00 Levofloxacin/ Dextrose (Levaquin 750 Mg Premix Inj) 150 ml @ 100 mls/hr Q24H IV Last administered on 08/16/16 09:41; Start 08/16/16 at 08:00; Stop at 08:21; Status DC Lactobacillus Acidophilus 1 tab 1 tab TID PO Last administered on 09/07/16 18: 35; Start 08/16/16 at 09:00 Vancomycin HCl 1750 mg/Sodium Chloride 517.5 ml @ 258.75 mls/ hr ONCE ONCE IV Last administered on 08/17/16 10:21; Start 08/17/16 at 10:00; Stop 08/17/16 at 11:59; Status DC Pharmacy Profile Note 0 ml @ 0 mls/hr UNSCH OTHER ; Start 08/17/16 at 08:15; Stop 08/18/16 at 16:18; Status DC Piperacillin Sod/ Tazobactam Sod 50 ml @ 100 mls/hr Q6H IV Last administered on 08/18/16 09:15; Start 08/17/16 at 09:00; Stop 08/18/16 at 13:02; Status DC Sodium Chloride 1,000 ml @ 999 mls/hr BOLUS ONCE IV Last administered on 08/17 08:30; Start 08/17/16 at 08:30; Stop 08/17/16 at 09:30; Status DC Sodium Chloride 1,000 ml @ 200 mls/hr Q5H IV ; Start 08/17/16 at 09:00; Stop at 18:59; Status DC Vancomycin HCl/ Sodium Chloride (Vancomycin Inj/ NS 250 ml Inj) 250 ml @ 250 mls/hr Q12H IV Last administered on 08/18/16 12:33; Start 08/17/16 at 22:00; Stop 08/18/16 at 16:31; Status DC Miscellaneous Information SPECIFIC LAB TO BE [facility]... ONCE ONCE XX ; Start at 21:45; Stop 08/18/16 at 21:45; Status DC Olanzapine 10 mg 10 mg Q12H PRN IM acute agitation; Start 08/17/16 at 16:15; Stop 08/19/16 at 16:14; Status DC Levofloxacin/ Dextrose 150 ml @ 100 mls/hr Q24H IV ; Start 08/18/16 at 09:00; Stop 08/18/16 at 09:00; Status DC Levofloxacin/ Dextrose (Levaquin 750 Mg Premix Inj) 150 ml @ 100 mls/hr Q48H IV Last administered on 08/18/16 09:54; Start 08/18/16 at 09:00; Stop at 13:02; Status DC Miscellaneous Medication (ASP Crit: Doc ESBL, MDR A baumannii or P aer) 1 UNSCH X1 PRN XX PHARMACY DOCUMENTATION; Start 08/18/16 at 13:00; Stop 08/19/16 at 12: 59; Status DC Miscellaneous Medication 1 1 UNSCH X1 PRN XX PHARMACY DOCUMENTATION; Start at 13:00; Stop 08/19/16 at 12:59; Status DC Meropenem/Sodium Chloride (Merrem Inj/NS Inj) 100 ml @ 200 mls/hr Q8H IV Last administered on 08/21/16 06:14; Start 08/18/16 at 14:00; Stop 08/21/16 at 07:36 ; Status DC Gabapentin 600 mg 600 mg TID PO Last administered on 09/01/16 18:44; Start at 18:00; Stop 09/02/16 at 21:42; Status DC Sodium Chloride 1,000 ml @ 150 mls/hr Q6H40M IV Last administered on 17:44; Start 08/18/16 at 15:30; Stop 08/20/16 at 17:43; Status DC Sodium Chloride (NS 250 ml Inj) 250 ml @ 15 mls/hr ONCE ONCE IV Last administered on 08/19/16 06:34; Start 08/18/16 at 16:45; Stop 08/19/16 at 09:24 ; Status DC Acetaminophen (Tylenol) 650 mg Q4H PRN PO SEE LABEL COMMENTS; Start 08/18/16 at 16:45; Stop 08/18/16 at 20:46; Status DC Diphenhydramine HCl 25 mg 25 mg Q4H PRN PO SEE LABEL COMMENTS; Start 08/18/16 at 16:45; Stop 08/18/16 at 20:46; Status DC Linezolid (Zyvox 600 Mg Premix) 300 ml @ 300 mls/hr Q12H IV Last administered on 08/20/16 22:54; Start 08/19/16 at 08:00; Stop 08/21/16 at 07:36; Status DC Albumin Human (Albumin 25% Inj) 12.5 gm Q8H IV Last administered on 08/22/16 11:31; Start 08/20/16 at 20:00; Stop 08/22/16 at 13:51; Status DC Bumetanide (Bumex Inj) 1 mg Q8H IV PUSH Last administered on 08/22/16 12:44; Start 08/20/16 at 20:00; Stop 08/22/16 at 13:51; Status DC Metronidazole (Flagyl) 500 mg Q6HR PO ; Start 08/21/16 at 09:00; Stop 08/21/16 at 09:00; Status DC Vancomycin HCl (VANCOMYCIN for oral use only) 500 mg QID PO Last administered on 08/25/16 12:22; Start 08/21/16 at 09:00; Stop 08/25/16 at 13:53; Status DC Chlorothiazide Sodium (Diuril Inj) 250 mg ONCE ONCE IV Last administered on 21:03; Start 08/21/16 at 20:00; Stop 08/21/16 at 20:01; Status DC Potassium Phos/ Sodium Phos (K-Phos Neutral) 250 mg BID PO Last administered on 08/22/16 07:41; Start 08/21/16 at 21:00; Stop 08/22/16 at 20:59; Status DC Bumetanide (Bumetanide) 1 mg DAILY PO Last administered on 09/01/16 08:18; Start 08/23/16 at 09:00; Stop 09/03/16 at 23:47; Status DC Potassium Chloride (KCl) 20 meq ONCE ONCE PO Last administered on 08/22/16 14 :23; Start 08/22/16 at 14:00; Stop 08/22/16 at 14:01; Status DC Valsartan (Diovan) 40 mg DAILY PO Last administered on 09/01/16 08:18; Start 08/23/16 at 09:00; Stop 09/03/16 at 23:47; Status DC Vancomycin HCl (VANCOMYCIN for oral use only) 125 mg QID PO Last administered on 09/07/16 21:38; Start 08/25/16 at 18:00; Stop 09/09/16 at 17:59 Lorazepam (Ativan Inj) 0.5 mg UNSCH X1 IV Last administered on 08/25/16 18:32 ; Start 08/25/16 at 17:00; Stop 08/25/16 at 23:00; Status DC Diphenhydramine HCl (Benadryl) 25 mg ONCE ONCE PO Last administered on 22:15; Start 08/26/16 at 22:00; Stop 08/26/16 at 22:01; Status DC Lorazepam (Ativan Inj) 1 mg ONCE ONCE IV PUSH Last administered on 08/29/16 17 :10; Start 08/29/16 at 17:00; Stop 08/29/16 at 17:01; Status DC Hydromorphone HCl (Dilaudid Pf Inj) 0.5 mg ONCE ONCE IV PUSH Last administered on 08/29/16 17:11; Start 08/29/16 at 17:00; Stop 08/29/16 at 17:01; Status DC Olanzapine 5 mg 5 mg HS PO Last administered on 09/01/16 21:49; Start 08/30/16 at 21:15; Stop 09/03/16 at 23:47; Status DC Potassium Chloride/Lactated Ringer's (KCl Inj/Lr 1000 ml Inj) 1,010 ml @ 42 mls /hr Q24H IV Last administered on 09/07/16 22:53; Start 09/02/16 at 00:00 Vancomycin HCl (Vancomycin Inj) 1,000 mg STK-MED ONCE OTHER Last administered on 09/02/16 16:51; Start 09/02/16 at 16:51; Stop 09/02/16 at 16:59; Status DC Morphine Sulfate (Morphine Inj) 2 mg Q4HR PRN IM Pain 1-10 Last administered on 09/07/16 04:40; Start 09/03/16 at 16:15 Haloperidol Lactate (Haldol Inj) 1 mg Q6H PRN IM Psychosis, delirium Last administered on 09/04/16 09:17; Start 09/03/16 at 16:15; Status Hold Heparin Sodium (Porcine) (Heparin Inj) 5,000 units Q12HR SQ Last administered on 09/08/16 08:43; Start 09/04/16 at 09:00 Dronabinol (Marinol) 2.5 mg BID@11,16 PO Last administered on 09/07/16 17:15; Start 09/05/16 at 11:00 Dronabinol (Marinol) 2.5 mg ONCE ONCE PO Last administered on 09/04/16 21:51 ; Start 09/04/16 at 17:15; Stop 09/04/16 at 17:17; Status DC Aspirin (Ecotrin Ec) 81 mg DAILY PO Last administered on 09/08/16 08:42; Start 09/05/16 at 09:00; Status Hold Carvedilol (Coreg) 3.125 mg Q12HR PO Last administered on 09/08/16 09:00; Start 09/05/16 at 09:00 Lorazepam (Ativan Inj) 0.5 mg ADMISSION SPECIALIST ONCE IV PUSH ; Start 09/06/16 at 18:15; Stop 09/06/16 at 18:30; Status DC Atorvastatin Calcium (Lipitor) 80 mg HS PO Last administered on 09/07/16 21:38 ; Start 09/06/16 at 21:00 Lorazepam (Ativan Inj) 0.5 mg ADMISSION SPECIALIST ONCE IV PUSH Last administered on 20:08; Start 09/07/16 at 20:15; Stop 09/07/16 at 20:16; Status DC Gadodiamide (Omniscan Pf Inj) 16 ml STK-MED ONCE IV Last administered on 20:45; Start 09/07/16 at 20:45; Stop 09/07/16 at 20:46; Status DC Lorazepam (Ativan Inj) 0.5 mg ONCE ONCE IV PUSH ; Start 09/08/16 at 13:00; Stop 09/08/16 at 13:01; Status DC Family History per EMR Social History 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 sedated SKIN: No rashes, ecchymoses or lesions. Cool and dry. HEAD: Atraumatic. Normocephalic. No temporal or scalp tenderness. EYES: Pupils equal round and reactive. Extraocular motions intact. No scleral icterus. No injection or drainage. CARDIOVASCULAR: Regular rate and rhythm without murmurs, gallops, or rubs. RESPIRATORY: Clear to auscultation. Breath sounds equal bilaterally. No wheezes , rales, or rhonchi. MUSCULOSKELETAL: above knee amputation on right NEUROLOGICAL: sedated Laboratory Laboratory Tests Test 08/29/16 09/01/16 09/03/16 09/05/16 16:41 20:23 09:12 07:25 Miscellaneous Test Result Blood Type A POSITIVE Antibody Screen POSITIVE Direct Antiglobulin Test NEGATIVE (Nickolas) Crossmatch Leukocyte-Reduced Red Blood Cells Blood Bank Comment Antibody Identification Anti-Madeleine Routine Panel Pathologist Interp Serum Viscosity 1.6 Fibrinogen 389 mg/dL Triglycerides Level 217 MG/DL Cholesterol Level 146 MG/DL LDL Cholesterol 77 MG/DL HDL Cholesterol 25.2 MG/DL Cholesterol/HDL Ratio 5.79 RATIO Carcinoembryonic Antigen 1.7 NG/ML CA 125 Antigen 22.2 U/ML Test 09/06/16 09/07/16 09/08/16 10:28 06:05 06:36 Band Neutrophils % 4 % Prealbumin 7 MG/DL Thyroid Stimulating Hormone 23.400 uIU/ML 3rd Gen White Blood Count 10.5 TH/MM3 Red Blood Count 3.38 MIL/MM3 Hemoglobin 8.2 GM/DL Hematocrit 25.5 % Mean Corpuscular Volume 75.6 FL Mean Corpuscular Hemoglobin 24.4 PG Mean Corpuscular Hemoglobin 32.2 % Concent Red Cell Distribution Width 18.0 % Platelet Count 580 TH/MM3 Mean Platelet Volume 6.4 FL Neutrophils (%) (Auto) 71.1 % Lymphocytes (%) (Auto) 19.4 % Monocytes (%) (Auto) 6.8 % Eosinophils (%) (Auto) 2.3 % Basophils (%) (Auto) 0.4 % Neutrophils # (Auto) 7.5 TH/MM3 Lymphocytes # (Auto) 2.0 TH/MM3 Monocytes # (Auto) 0.7 TH/MM3 Eosinophils # (Auto) 0.2 TH/MM3 Basophils # (Auto) 0.0 TH/MM3 CBC Comment AUTO DIFF Differential Total Cells 100 Counted Neutrophils % (Manual) 77 % Lymphocytes % 11 % Monocytes % 4 % Eosinophils % 3 % Neutrophils # (Manual) 8.6 TH/MM3 Metamyelocytes 2 % Myelocytes 2 % Promyelocytes 1 % Differential Comment FINAL DIFF MANUAL Platelet Estimate HIGH Platelet Morphology Comment NORMAL Sodium Level 138 MEQ/L Potassium Level 3.7 MEQ/L Chloride Level 100 MEQ/L Carbon Dioxide Level 28.4 MEQ/L Anion Gap 10 MEQ/L Blood Urea Nitrogen 7 MG/DL Creatinine 0.57 MG/DL Estimat Glomerular Filtration 107 ML/MIN Rate Random Glucose 145 MG/DL Calcium Level 8.0 MG/DL Total Bilirubin 0.4 MG/DL Aspartate Amino Transf 96 U/L (AST/SGOT) Alanine Aminotransferase 44 U/L (ALT/SGPT) Alkaline Phosphatase 127 U/L Total Protein 5.8 GM/DL Albumin 1.4 GM/DL Tumor Marker Alpha Fetoprotein 1.3 NG/ML Laboratory Tests Test 09/08/16 06:36 Tumor Marker Alpha Fetoprotein 1.3 Result Diagram: 09/07/16 0609/07/16604 Imaging Last Impressions Brain MRI 09/07/16 0000 Signed Impressions: Service Date/Time: Wednesday, September 07, 2016 20:26 - CONCLUSION: 1. No acute findings. No significant change from August 25, 2016. No abnormal enhancement post contrast. Mild chronic white matter ischemic changes. Rolando Sharif MD Pelvis Ultrasound 09/05/16 0000 Signed Impressions: Service Date/Time: Monday, September 05, 2016 19:53 - CONCLUSION: Enlarged uterus with prominence of the endometrium. Alfredo Etienne MD Chest CT 09/05/16 0000 Signed Impressions: Service Date/Time: Monday, September 05, 2016 08:47 - CONCLUSION: 1. No worrisome masses. Please see above. 2. Dilatation of the aorta 4.3 cm. 3. Atherosclerosis. Addy Hillman MD Abdomen/Pelvis CT 09/05/16 0000 Signed Impressions: Service Date/Time: Monday, September 05, 2016 08:47 - CONCLUSION: 1. Fat containing umbilical hernias. 2. Extensive atherosclerosis. 3. Indeterminate low-density lesion in the liver, incompletely characterized without contrast. 4. Basilar air space disease and atelectasis with small pericardial effusion. 5. Abnormal appearance of the uterus as described above. A pelvic ultrasound will be helpful for further assessment on a nonemergent outpatient basis. Addy Hillman MD Lumbar Puncture Fluoroscopy 08/29/16 0000 Signed Impressions: Service Date/Time: Monday, August 29, 2016 16:39 - CONCLUSION: Uncomplicated fluoroscopically guided lumbar puncture with pressures as above. Alfredo Etienne MD Chest X-Ray 08/19/16 0000 Signed Impressions: Service Date/Time: Friday, August 19, 2016 18:46 - CONCLUSION: 1. Bibasilar streakiness consistent with atelectasis and/or infiltrates. 2. Cardiomegaly. 3. Poor inspiratory result. Shamar Banuelos MD Upper Extremity Ultrasound 07/28/16 0000 Signed Impressions: Service Date/Time: Thursday, July 28, 2016 14:34 - CONCLUSION: No DVT is identified within the right upper extremity. Alfredo Eng MD Head CT 07/19/16 0000 Signed Impressions: Service Date/Time: Tuesday, July 19, 2016 09:58 - CONCLUSION: No acute intracranial findings. João Otoole MD Foot X-Ray 07/16/16 0000 Signed Impressions: Service Date/Time: Saturday, July 16, 2016 17:34 - CONCLUSION: 1. Nonspecific soft tissue swelling. No acute bone destruction demonstrated. 2. Mild talonavicular and navicular/cuneiform degenerative changes. 3. Second through fifth hammertoe. 4. Moderate-sized heel spur. Alfredo Sneed MD Assessment and Plan Problem List: (1) Enlarged uterus Status: Acute (2) Endometrial thickening on ultra sound Status: Acute Plan: pt has order for MRI of abd/pelvis highly unlikely this is the cause of current mental status changes if pt recovers then consideration of D&C or office endometrial bx talked with daughter Blanche on the phone and she agrees that putting Mrs. 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 Valentin Arguello Sep 08, 2016 14:23
--- NOTE | 2016-09-08 19:19 | HHI.PR ---
Subjective Remarks Patient has been alert for most of the day however became extremely agitated when sent now to do an MRI of the abdomen. Daughter Blanche feels that the Ativan did sedate the patient and does not want the patient sedated so MRI was declined. Patient now resting calmly. Apparently she was able to participate with physical therapy and was able to stand on the other leg for which shares very excited. Daughter Blanche would like second neurology opinion however after that if nothing further can be offered she would like the patient to [facility] to [facility] that she can continue therapy. Objective Vitals Vital Signs Date Time Temp Pulse Resp B/P Pulse Ox O2 Delivery O2 Flow Rate FiO2 09/08/16 16:02 98.5 88 20 140/70 97 09/08/16 12:02 98.3 96 20 136/71 96 09/08/16 08:02 98.4 80 20 154/72 99 09/08/16 07:15 Room Air 3.00 50 09/08/16 07:15 74 09/08/16 03:20 98.2 76 16 137/63 99 09/08/16 03:13 70 09/07/16 23:32 97.8 71 16 143/66 100 09/07/16 21:20 98.4 84 16 135/61 97 09/07/16 20:00 Room Air 09/07/16 19:54 99 I/O 09/07/16 09/07/16 09/07/16 09/08/16 09/08/16 09/08/16 07:00 15:00 23:00 07:00 15:00 23:00 Intake Total 292 ml 350 ml 240 ml 308 ml 240 ml Output Total 750 ml 50 ml 125 ml 400 ml Balance 292 ml -400 ml 190 ml 183 ml -160 ml Intake Oral 350 ml 240 ml 30 ml 240 ml IV Total 292 ml 278 ml Output Urine Total 750 ml 50 ml 125 ml 400 ml # Bowel Movements 0 0 0 0 Result Diagram: 09/07/1660409/07/16604 Objective Remarks GENERAL: Well-nourished, well-developed pleasant female patient. SKIN: Warm and dry. HEAD: Normocephalic. EYES: No scleral icterus. No injection or drainage. NECK: Supple, trachea midline. No JVD or lymphadenopathy. CARDIOVASCULAR: Regular rate and rhythm without murmurs, gallops, or rubs. RESPIRATORY: Breath sounds equal and clear to auscultation bilaterally. No accessory muscle use. GASTROINTESTINAL: Bowel sounds present. Abdomen soft, non-tender, nondistended. EXTREMITIES: Left lower extremity with large ischemic ulceration 20 cm, entire circumference of lower leg with necrotic tendon, depth 0.3 cm, several necrotic toes. right LE s/p AKA incision c/d/i well healing. Neuro: Sleeping. Opens eyes briefly but then closes them. Procedures 08/08/2016 PROCEDURE 1. Selective right lower extremity arteriogram. 2. Balloon angioplasty with a 4 mm x 2200 mm and then a 5 x 200 mm Medtronic angioplasty balloon of the right superficial femoral and proximal popliteal artery. 07/31/2016 Excision and debridement of both legs, extensive necrotic wounds approximately 30 x 25 cm area on each side, total 1000 to 1100 cm square, down to the subcutaneous tissue and tendon on the left side. 09/03/2016 Right [id number] amputation A/P Problem List: (1) Ischemic ulcer of right ankle ICD Code: L97.319 Status: Acute (2) Neuropathic pain ICD Code: M79.2 Status: Chronic (3) Delirium ICD Code: R41.0 Status: Acute (4) Chronic kidney disease (CKD) ICD Code: N18.9 Status: Chronic (5) Peripheral vascular occlusive disease ICD Code: I73.9 Status: Chronic (6) Anemia ICD Code: D64.9 Status: Chronic (7) Pain ICD Code: R52 Status: Chronic (8) PVD (peripheral vascular disease) ICD Code: I73.9 Status: Chronic (9) Cardiomyopathy ICD Code: I42.9 Status: Chronic (10) Diabetes mellitus with peripheral angiopathy with gangrene ICD Code: E11.52 Status: Acute (11) Hypoalbuminemia ICD Code: E88.09 Status: Acute (12) Anoxic encephalopathy ICD Code: G93.1 Status: Acute (13) DM type 2, uncontrolled, with neuropathy ICD Code: E11.40 Status: Chronic (14) CHF (congestive heart failure) ICD Code: I50.9 Status: Chronic (15) JAYLAN (acute kidney injury) ICD Code: N17.9 Status: Resolved (16) Severe protein-calorie malnutrition ICD Code: E43 Status: Acute (17) Hypertension ICD Code: I10 Status: Chronic (18) Anemia in chronic illness ICD Code: D63.8 Status: Acute Assessment and Plan Assessment and Plan Pt. is 61-year-old female, with multiple admissions, with history of cellulitis of legs, severe PVD, diabetes and cardiomyopathy EF of 30% was at the [facility] for inpatient rehabilitation facility when she became more altered lethargic and hypoxic. Rapid response team was called and transferred patient to ICU. In the ICU patient remained confused and lethargic responsive to pain with a stable blood pressure and saturation of 100% on 40% face mask. Patient then improved and was transferred to regular medical/ surgical unit. During this hospitalization, plastic surgery, podiatry, vascular surgery followed this patient. Both podiatry and plastic surgery recommended hyperbaric treatments and future skin graft if wound beds are healed. Vascular surgery recommended against amputation and stated that her leg blood supply is adequate. Unfortunately, hyperbaric treatments can only be done in the outpatient setting if patient can go home. It cannot be done while in-patient or from SNF due to financial constraints. Attempts to transfer patient to [facility] and [place] for evaluation of encephalopathy were unsuccessful. Patient's daughter Blanche who is acting healthcare surrogate would like patient to be ultimately [facility] been [facility], after receiving second neurology opinion here at [facility]. -s/p right AKA for nonhealing ischemic wound. Stump well healing. management per Dr. Taylor. - Peripheral vascular disease with nonhealing left lower extremity wound with necrotic tendon, several necrotic toes-status post consultation with 3 vascular surgeons, plastic surgery, to balance wheel hand filer. Multiple opinions from podiatry and vascular surgeons that the leg is not salvageable, Dr. Aquino does not think that topical hyperbaric oxygen therapy will have a significant effect, patient is not a candidate for hyperbaric oxygen therapy due to the delirium. At this time family declining amputation. Cont asa, start Lipitor 80 mg at bedtime, ALT is elevated however not above 3 times limit of upper normal. Will repeat LFTs to ensure stability. Family requesting to pursue topical hyperbaric oxygen therapy. I discussed previously with Dr. Aquino, our hyperbaric oxygen specialist, he does not perform this service. Discussed with charge nurse Chloe; apparently the [employer] would be unable to setup an inservice to train our nurses on the numobag for another 7-10 days due to staffing issues at their company. Patient's daughter Blanche had requested wound therapy which was in disagreement with the wound care nurses recommendations. She declined a reconsult podiatry or plastic surgery. I recommended she talk with wound care nurse again today and she is agreeable. - Severe neuropathic pain - continue Neurontin. Morphine 2 mg intramuscular when necessary - she appears to be tolerating this. -Severe acute metabolic and possibly toxic Encephalopathy - Severe acute Delirium - now improving after pain medications decreased and Haldol DC'd. -exhaustive workup has been performed including initial LP which showed pleocytosis with lymphocyte predominance, see previous notes -Will request second neurology opinion per daughter's request, for opinion on possibly of encephalitis. Otherwise, patient may pursue neurology evaluation at [facility] or [place] as outpatient (transfer requests were declined from both institutions). Daughter Blanche at this point in time is pleased that her mother is improving. - Appreciate input from neurology, hematology, palliative care - EEG 09/04 -moderate encephalopathy. -MRI brain with and without contrast 09/07 negative -Will hold aspirin in case neurology recommends repeat LP. Unclear if patient would be able to participate in LP without sedation with ativan, which daughter would like to avoid. I counseled Blanche on weighing the potential benefit versus setback of deciding to proceed with any further testing for the etiology of the encephalopathy at this point in time, especially as the patient is improving. I.e if pretest probabillity is low, diagnostic yield likely to be low and potential of finding an effective treatment are likely to be low, then the risk of sedating with ativan and perhaps worsening the delirium are likely to outweigh the potential benefit, whatever the desire for a definitive answer may be as to why this previously high functioning patient developed such a severe encephalopathy. - C. Diff colitis - All other abx discontinued and patient is currently on Vancomycin PO. - UTI - Microbiology grew ESBL -now treated. -Diabetes mellitus type II, currently with good Accu-Chek reads- Coverage with SSI. Monitor Accu-Cheks. Monitor for hypoglycemia. -Hypothyroidism - repeat TSH today is 23, will check Free T3/T4. continue levothyroxine 150 g daily and will likely increase tomorrow. - Hypertension - Cardiomyopathy - EF 3540% -Continue carvedilol low dose. Start JOYCE inhibitor if blood pressure will tolerate and renal function remained stable. S/p cardiology eval. -Acute kidney injury, resolved. -Chronic kidney disease stage III. Improved, creatinine stable around 1 today. -Severe malnutrition - dietary consult noted. Prealbumin is 7. Hopefully patient's by mouth intake will improve as she improves mental status. Consulted GI for eval for possible PEG tube. Started Marinol to stimulate appetite. Daughter Blanche wants to give the patient several days for improvement prior to considering PEG tube. Continue ensure, add multivitamin. - Abnormal uterine appearance - seen on abdominal and pelvis CT -pelvic ultrasound showing prominent endometrium, tumor markers negative, no history of vaginal bleeding -Heme on consult was requested per oncology service. Consider endometrial biopsy as outpatient. MRI abdomen canceled. Anemia of chronic illness - stable, monitor transfuse prn Hb<7. Full code. Heparin SQ. I spent 35 minutes [id number] with the patient and patient's daughter on the espinal discussing the patient's disposition, prognosis, and plan of care with her caregivers. Over half the time spent was devoted to counseling the patient's caregiver Blanche. Discharge Planning [facility], when ready for DC. pending 2nd neurology opinion. Problem Qualifiers (1) Ischemic ulcer of right ankle: Qualified Code: L97.313 - Ischemic ulcer of right ankle, with necrosis of muscle (2) Diabetes mellitus with peripheral angiopathy with gangrene: Qualified Code: E11.52 - Type 2 diabetes mellitus with diabetic peripheral angiopathy and gangrene, with long-term current use of insulin (3) CHF (congestive heart failure): Maeve Elliott MD Sep 08, 2016 19:19 muscle (2) Diabetes mellitus with peripheral angiopathy with gangrene: Qualified Code: E11.52 - Type 2 diabetes mellitus with diabetic peripheral angiopathy and gangrene, with long-term current use of insulin (3) CHF (congestive heart failure): Maeve Elliott MD Sep 08, 2016 19:19
[2016-09-08] MEDS: ATORVASTATIN 80 MG TAB PO SCH (22:17)
--- NOTE | 2016-09-08 22:22 | HHI.HCPN ---
Reason for visit a. To assist with evaluation and management of symptoms including: weakness , decreased appetite, lethargy. b. To assist medical decision maker(s) with: better understanding of current medical conditions; weighing benefits/burdens of medical treatment options; making medical treatment decisions. . Subjective/Interval History Patient seen and examined in room at 4pm. Daughter, Tanisha at bedside. Patient slept through most of my visit. Awakens just before I left, speaking clearly, lethargic. Daughter reports patient had a great weekend stating patient was awake, speaking more clearly and recognizing family. Daughter reports patient even stood with max assist with PT. She is still eating small amounts, GI is following. Family wants to hold off on PEG tube placement for a few days to see if patient will be able to eat better now that she has been more alert. Calorie count ordered to start 09/09/16. I suspect patient may still benefit from PEG tube given general prolonged malnutrition and debility in addition to fluctuating mental status. Last albumin 1.4. Medical oncology/hematology, Dr. Cee was consulted for concern of possible underlying malignancy given rapidly progressive ischemia/ wounds of bilateral LEs. Dr. Cee felt elevated lambda light chain elevation was likely related to chronic inflammation. No evidence of malignancy. 09/05/16 CT abd/pelvis revealed fat containing umbilical hernias, extensive atherosclerosis, low density liver lesion, basilar atelectasis with small pericardial effusion, 11x7cm enlarged lobular uterus recommend pelvic ultrasound. CT chest dilatation of the aorta 4.3cm, atherosclerosis. Pelvic ultrasound enlarged uterus with prominence of the endometrium. Dr. Rivers, [employer] E[employer]ICIAN oncology has been consulted, plan for endometrial biopsy or D & C once clinical condition improves. Uterine abnormalities not likely contributing to her current health issues. Afebrile. Vital signs stable. LBM 09/05/16 recorded, daughter indicates patient had BM today, 09/06/16 TSH 23.400 - patient on Cytomel and Synthroid. 09/07/16 MRI brain with no acute findings, mild chronic white matter ischemic changes. Daughter feels lethargy today is secondary to Lorazepam prior to MRI. Daughter ( family) has requested neurology second opinion to make sure we aren't missing anything. I am told [employer] inservice pending and plans to start oxygen therapy today or tomorrow once inservice complete. . Family/friend interactions Long conversation with Tanisha (daughter) at bedside. She is feeling more optimistic now that delirium is improving. She remains hopeful patient will make a full recovery. She tells me she spoke with her brother about CODE Status and he "wants everything done." She is not sure she would be able to watch her mother on [facility]. Tanisha used to work in [employer] [place] [place] and hates the idea of her mother being "like that." I reiterated the medical team supports the family deicsions and if her conditions we will be there to help them through it. Offered support and encouragement. Tanisha has been a tremendous advocate and caregiver for her mother. She appreciated my recognizing her role. She is working to get an elder district attorney as she is also handling her mothers financial affairs. Questions answered to her satisfaction. Palliative care number previously provided. . Advance Directives Living Will: Never completed Health Care Surrogate: Never completed Durable Power of Bryologist: Completed, but not made available Advance Directive Specifics Date completed: Family reports there is a completed POA document -- not available to us at this time. Unknown date. . Health Care Surrogate(s): is reportedly the health care POA. Even if there is no documented designation of health care POA or surrogate, he would serve as proxy. Spoke with in person on 08/12/16. He tells me how he knows nothing about health care and is fine if patient's daughter Blanche serves as proxy. As does not want to serve, it would fall to both son and daughter. Patient 's son also opts out (as he is out of town often) therefore leaving decision- making to patient's daughter Blanche. . Documented care wishes: No documented wishes of patient's expressed health care goals/preferences. . Significant change in goals: FULL CODE. Family desires continued aggressive care. . Objective Vital Signs Date Time Temp Pulse Resp B/P Pulse Ox O2 Delivery O2 Flow Rate FiO2 09/08/16 21:12 94 21 09/08/16 20:02 99.4 87 20 116/65 94 09/08/16 16:02 98.5 88 20 140/70 97 09/08/16 12:02 98.3 96 20 136/71 96 09/08/16 08:02 98.4 80 20 154/72 99 09/08/16 07:15 Room Air 3.00 50 4/17/17 07:15 74 09/08/16 03:20 98.2 76 16 137/63 99 09/08/16 03:13 70 09/07/16 23:32 97.8 71 16 143/66 100 Intake & Output 09/08/16 09/08/16 07:00 19:00 Intake Total 548 ml 240 ml Output Total 175 ml 400 ml Balance 373 ml -160 ml Intake Oral 270 ml 240 ml IV Total 278 ml Output Urine Total 175 ml 400 ml # Bowel Movements 0 0 Physical Exam CONSTITUTIONAL/GENERAL: Lethargic. Appears relaxed. Speech is more clear when awakens. SKIN: No jaundice. Ecchymoses on upper extremities. Dressing LLE toes to calf, dry and intact. New right AKA with che intact, no drainage or erythema noted. Rash on the left side of the face and neck that seems to be healing. CARDIOVASCULAR: Regular rate and rhythm without gallops, or rubs. 2/6 systolic murmur heard. RESPIRATORY/CHEST: Symmetric, unlabored respirations. Clear to auscultation. GASTROINTESTINAL: Abdomen soft, nondistended. No guarding. Bowel sounds present. MUSCULOSKELETAL:Right AKA, Dressing LLE clean and dry. NEUROLOGICAL: Moves all extremities. Lethargic, awakens, speech more clear today. PSYCHIATRIC: lethargic. . . Diagnostic Tests Laboratory Laboratory Tests Test 09/06/16 09/07/16 09/08/16 10:28 06:05 06:36 White Blood Count 13.5 TH/MM3 10.5 TH/MM3 (4.0-11.0) (4.0-11.0) Red Blood Count 3.99 MIL/MM3 3.38 MIL/MM3 (4.00-5.30) (4.00-5.30) Hemoglobin 9.2 GM/DL 8.2 GM/DL (11.6-15.3) (11.6-15.3) Hematocrit 30.7 % 25.5 % (35.0-46.0) (35.0-46.0) Mean Corpuscular Volume 77.0 FL 75.6 FL (80.0-100.0) (80.0-100.0) Mean Corpuscular Hemoglobin 23.1 PG 24.4 PG (27.0-34.0) (27.0-34.0) Mean Corpuscular Hemoglobin 30.1 % 32.2 % Concent (32.0-36.0) (32.0-36.0) Red Cell Distribution Width 17.9 % 18.0 % (11.6-17.2) (11.6-17.2) Platelet Count 753 TH/MM3 580 TH/MM3 (150-450) (150-450) Mean Platelet Volume 6.4 FL 6.4 FL (7.0-11.0) (7.0-11.0) Neutrophils (%) (Auto) 77.8 % 71.1 % (16.0-70.0) (16.0-70.0) Lymphocytes (%) (Auto) 13.8 % 19.4 % (9.0-44.0) (9.0-44.0) Monocytes (%) (Auto) 5.3 % (0.0-8.0) 6.8 % (0.0-8.0) Eosinophils (%) (Auto) 1.8 % (0.0-4.0) 2.3 % (0.0-4.0) Basophils (%) (Auto) 1.3 % (0.0-2.0) 0.4 % (0.0-2.0) Neutrophils # (Auto) 10.5 TH/MM3 7.5 TH/MM3 (1.8-7.7) (1.8-7.7) Lymphocytes # (Auto) 1.9 TH/MM3 2.0 TH/MM3 (1.0-4.8) (1.0-4.8) Monocytes # (Auto) 0.7 TH/MM3 0.7 TH/MM3 (0-0.9) (0-0.9) Eosinophils # (Auto) 0.2 TH/MM3 0.2 TH/MM3 (0-0.4) (0-0.4) Basophils # (Auto) 0.2 TH/MM3 0.0 TH/MM3 (0-0.2) (0-0.2) CBC Comment AUTO DIFF AUTO DIFF Differential Total Cells 100 100 Counted Neutrophils % (Manual) 75 % (16-70) 77 % (16-70) Band Neutrophils % 4 % (0-6) Lymphocytes % 12 % (9-44) 11 % (9-44) Monocytes % 4 % (0-8) 4 % (0-8) Neutrophils # (Manual) 11.3 TH/MM3 8.6 TH/MM3 (1.8-7.7) (1.8-7.7) Metamyelocytes 2 % (0-1) 2 % (0-1) Myelocytes 3 % (0-0) 2 % (0-0) Differential Comment FINAL DIFF FINAL DIFF MANUAL MANUAL Platelet Estimate HIGH (NORMAL) HIGH (NORMAL) Platelet Morphology Comment NORMAL NORMAL (NORMAL) (NORMAL) Sodium Level 137 MEQ/L 138 MEQ/L (136-145) (136-145) Potassium Level 4.1 MEQ/L 3.7 MEQ/L (3.5-5.1) (3.5-5.1) Chloride Level 97 MEQ/L 100 MEQ/L (98-107) (98-107) Carbon Dioxide Level 28.9 MEQ/L 28.4 MEQ/L (21.0-32.0) (21.0-32.0) Anion Gap 11 MEQ/L (5-15) 10 MEQ/L (5-15) Blood Urea Nitrogen 9 MG/DL (7-18) 7 MG/DL (7-18) Creatinine 0.76 MG/DL 0.57 MG/DL (0.50-1.00) (0.50-1.00) Estimat Glomerular Filtration 77 ML/MIN (>89) 107 ML/MIN Rate (>89) Random Glucose 186 MG/DL 145 MG/DL (74-106) (74-106) Calcium Level 8.3 MG/DL 8.0 MG/DL (8.5-10.1) (8.5-10.1) Total Bilirubin 0.5 MG/DL 0.4 MG/DL (0.2-1.0) (0.2-1.0) Aspartate Amino Transf 99 U/L (15-37) 96 U/L (15-37) (AST/SGOT) Alanine Aminotransferase 40 U/L (10-53) 44 U/L (10-53) (ALT/SGPT) Alkaline Phosphatase 152 U/L 127 U/L (45-117) (45-117) Total Protein 6.8 GM/DL 5.8 GM/DL (6.4-8.2) (6.4-8.2) Albumin 1.6 GM/DL 1.4 GM/DL (3.4-5.0) (3.4-5.0) Prealbumin 7 MG/DL (20-40) Thyroid Stimulating Hormone 23.400 uIU/ML 3rd Gen (0.358-3.740) Eosinophils % 3 % (0-4) Promyelocytes 1 % (0-0) Tumor Marker Alpha Fetoprotein 1.3 NG/ML (0.5-8.0) Result Diagram: 09/07/1660409/07/16604 Imaging Last Impressions Brain MRI 09/07/16 0000 Signed Impressions: Service Date/Time: Wednesday, September 07, 2016 20:26 - CONCLUSION: 1. No acute findings. No significant change from August 25, 2016. No abnormal enhancement post contrast. Mild chronic white matter ischemic changes. Rolando Sharif MD Pelvis Ultrasound 09/05/16 0000 Signed Impressions: Service Date/Time: Monday, September 05, 2016 19:53 - CONCLUSION: Enlarged uterus with prominence of the endometrium. Alfredo Etienne MD Chest CT 09/05/16 0000 Signed Impressions: Service Date/Time: Monday, September 05, 2016 08:47 - CONCLUSION: 1. No worrisome masses. Please see above. 2. Dilatation of the aorta 4.3 cm. 3. Atherosclerosis. Addy Hillman MD Abdomen/Pelvis CT 09/05/16 0000 Signed Impressions: Service Date/Time: Monday, September 05, 2016 08:47 - CONCLUSION: 1. Fat containing umbilical hernias. 2. Extensive atherosclerosis. 3. Indeterminate low-density lesion in the liver, incompletely characterized without contrast. 4. Basilar air space disease and atelectasis with small pericardial effusion. 5. Abnormal appearance of the uterus as described above. A pelvic ultrasound will be helpful for further assessment on a nonemergent outpatient basis. Addy Hillman MD Lumbar Puncture Fluoroscopy 08/29/16 0000 Signed Impressions: Service Date/Time: Monday, August 29, 2016 16:39 - CONCLUSION: Uncomplicated fluoroscopically guided lumbar puncture with pressures as above. Alfredo Etienne MD Chest X-Ray 08/19/16 0000 Signed Impressions: Service Date/Time: Friday, August 19, 2016 18:46 - CONCLUSION: 1. Bibasilar streakiness consistent with atelectasis and/or infiltrates. 2. Cardiomegaly. 3. Poor inspiratory result. Shamar Banuelos MD Upper Extremity Ultrasound 07/28/16 0000 Signed Impressions: Service Date/Time: Thursday, July 28, 2016 14:34 - CONCLUSION: No DVT is identified within the right upper extremity. Alfredo Eng MD Head CT 07/19/16 0000 Signed Impressions: Service Date/Time: Tuesday, July 19, 2016 09:58 - CONCLUSION: No acute intracranial findings. João Otoole MD Foot X-Ray 07/16/16 0000 Signed Impressions: Service Date/Time: Saturday, July 16, 2016 17:34 - CONCLUSION: 1. Nonspecific soft tissue swelling. No acute bone destruction demonstrated. 2. Mild talonavicular and navicular/cuneiform degenerative changes. 3. Second through fifth hammertoe. 4. Moderate-sized heel spur. Alfredo Sneed MD . Procedures 07/31/2016 Excision and debridement of both legs, extensive necrotic wounds approximately 30 x 25 cm area on each side, total 1000 to 1100 cm square, down to the subcutaneous tissue and tendon on the left side. 08/08/2016 1. Selective right lower extremity arteriogram. 2. Balloon angioplasty with a 4 mm x 2200 mm and then a 5 x 200 mm Medtronic angioplasty balloon of the right superficial femoral and proximal popliteal artery. Note that patient had these additional procedures on prior admissions: * Bilateral lower extremity wound debridements 05/15/16 * Bilateral LE Debridements and Left SFA angioplasty on 06/23/16 Right AKA 09/02/16 . Assessment and Plan Disease Oriented Problem List: (1) complicated/infected/necrotic foot and leg wounds (2) PVD (peripheral vascular disease) Comment: With infected/nonhealing wounds and gangrene (3) DM (diabetes mellitus), type 2, uncontrolled, periph vascular complic (4) CHF (congestive heart failure) (5) Hypertension (6) Cellulitis of left lower extremity (7) Delirium due to another medical condition (8) VT (ventricular tachycardia) (9) Ulcer of heel and midfoot (10) Hypothyroidism (11) Anemia (12) Urinary tract infection Comment: Cx of 03/20/17 growing out E coli ESBL . 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 Symptom Scale: (1) Pain 0-10 Scale: 0 Comment: Unable to quantify/qualify pain -- too delirious agitated. Had AKA on 09/02/16 so likely has post-op pain. . . (2) Confusion 0-10 Scale: Unable to quantify Comment: Confusion is probably multifactorial. Patient apparently was cognitively sharp up until about 05/13/2016. Has had intermittent confusion since including hallucinations and disorientation. Now with severe agitated delirium. . . (3) Lethargy 0-10 Scale: Unable to quantify Comment: Was lethargic 09/02/16 and multiple sedating meds were stopped. Seems to cycle between extreme agitation and over-sedation. . (4) Delirium 0-10 Scale: Unable to quantify Comment: probably multifactorial, improving (5) Decreased appetite (6) Weakness Comment: continue PT/OT Pertinent Non-Medical Issues Psychosocial: Psychosocial support from and daughter (lives locally). Son in [place] is very involved, but is often working out of the country. Spiritual: Religious. Had been a member of [employer]. Legal: Family reports there is a completed POA for finance and health care. and patient's son are OK yielding decision making to patient's daughter. Ethical issues impacting care: Patient is currently incapacitated due to delirium. . Important Contacts * Blanche (daughter/ HC Proxy) [phone] * Alfredo Lemos (spouse) [phone] * Kalpesh (son) [phone] . Prognosis The patient has severe peripheral vascular disease and accompanying refractory lower extremity wounds. Wounds have worsened in spite of aggressive care beginning in March 2016. She has undergone re-vascularization procedures on both lower extremities since May. Wounds went on to involve tendon structures in the feet. She went to right sided AKA on 09/02/16. We have not been able to control her delirium which is having a profound effect on prognosis. She is either extremely agitated / confused or on a very small amount of medication becomes overly lethargic. Prognosis will depend also on whether or not she can heal well at the stump and whether or not the LLE wounds can be controlled. . . Code Status: Full Code Plan * Decision making: Patient is currently incapacitated to make her own health care decisions. She is confused and it is unclear if/when she will regain capacity. The patient's son and have opted out of decision making have both opted out of decision making leaving daughter -- Blanche -- as the proxy. Family is communicating well with each other. * FULL CODE - confirmed with daughter 09/08/16. * Goals of medical treatment: Currently desire ongoing aggressive care. Daughter requests 2nd neurology opinion. * Appreciate Medical oncology and AP[employer]ENTICE ELECTRICIAN oncology input. * Confusion: Her confusion/delirium appears to be improving, likely multifactorial, unable to find a cause. Efforts to control agitation with even small amounts of sedating medication appear to lead to oversedation. * Pain: Pain appears mostly secondary to ischemic pain and wound pain in the lower extremities and now post-op pain from amputation of 09/02/16. She may also have some lower extremity pain secondary to diabetic neuropathy (now off her gabapentin) . Patient is unable to quantify or qualify her pain adequately due to her cognitive challenges. She apparently had a negative reaction to fentanyl. She became too sedated on higher dose gabapentin. Very low dose methadone was stopped on 09/02/16 due to oversedation. PRN IV morphine order now in place. * No new medication recommendations at this time. Will need to monitor bowel function as constipation can contribute to delirium. Consider avoiding Lorazepam given daughters feeling of lethargy post use. * Palliative care has felt like a failure in regards to helping to manage symptoms in this very challenging and sad case. We either have the patient agitated/confused/miserable, OR, on relatively low doses of medications, have her lethargic. Our team cannot explain why her symptoms are so refractory. From a palliative care team perspective, we would support family's desire of transfer to a tertiary care center vs LTAC especially now in light of some cognitive improvement. * Palliative care will continue to follow the patient to assist with symptom management and to further clarify goals of medical treatment as the clinical course evolves. . Attestation To help prompt me to consider important information that might be impacting today's encounter and assessment, information from prior notes written by myself or my colleagues may have been "brought forward" into today's note. My signature on this note, however, is an attestation that I personally performed the exam, history, and/or decision-making noted today, and, unless otherwise indicated, the interactions with patient, family, and staff as well as the review of records all occurred today. I also attest that the listed assessment and stated plan reflect my best clinical judgment today based on the combination of historical information, prior notes, and today's exam/ interactions. When time spent is documented, it refers only to time spent today by the signer, or if indicated, combined time spent today by collaborating physician/nurse practitioner. CORTNEY ARCEO Sep 08, 2016 22:21
[2016-09-08] MEDS: MELATONIN 5 MG TAB PO SCH (22:47)
[2016-09-09] VITALS (8 sets, daily range): BP systolic 105–140; BP diastolic 60–80; PULSE 78–84; RESP 18–20; TEMP 98.2–100.2; O2SAT 95–100
[2016-09-09] MEDS: POTASSIUM CHLORIDE INJ 20 MEQ in LACTATED RINGER'S 1000 ML INJ 1,000 ML IV SCH (01:43)
[2016-09-09] MEDS: HYDROCORTISONE 1% CREAM 30 GM TOPICAL SCH ×3 (04:29→21:34)
[2016-09-09] MEDS: INSULIN ASPART SUPPLEMENTAL SCALE SQ SCH ×4 (05:44→21:00)
[2016-09-09] MEDS: LEVOTHYROXINE SODIUM 150 MCG TAB PO SCH (05:45)
--- NOTE | 2016-09-09 08:56 | PD.CONS ---
History of Present Illness Service Neurology Consult Requested By medical Reason for Consult confusion Primary Care Physician Wisam Peterson History of Present Illness 61-year-old female with a complicated medical hx consisting of cellulitis of legs, severe PVD, diabetes and cardiomyopathy EF of 30%, resp distress, sz activity, chronic pain who has had episodes of confusion over the past few months. pt poor hx, information obtained from medical chart review. apparently was functional prior to 04/2016 and subsequently has had confusion with moments of clarity. she has refused po meds at times. tsh has been elevated. due to lower extremity pain, she has required pain medications. eeg's have shown encephalopathy. mri brain w/wo contrast have not shown any acute lesion or leptomeningeal enhancement. csf studies showed a mild lymphocytic pleocytosis but normal protein. hsv pcr negative. hiv negative. maye negative. hepatitis abs negative. nh3 nml. elevated crp. cyclical thrombocytosis. abnormal spep- followed by heme-onc Review of Systems as above, admit hp Past Family Social History 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 Past Medical History Peripheral vascular disease Chronic recurrent wounds Recurrent cellulitis Hypertension Diabetes Cardiomyopathysustained after contrast-induced flash pulmonary edema- latest EF was 30% in March 2016. Obesity Hypothyroidism History of dermoid cyststatus post left oophorectomy 25 years ago . Past Surgical History Excision / debridement both lower extremities 07/31/16 RLE ateriogram and balloon angioplasty 08/08/16 Left oophorectomy for dermoid cyst removal about 25 years ago Cholecystectomy Hernia repair . Family History * Mother of colon cancer . Substance Use Tobacco: Quit tobacco Alcohol: No history of abuse Illicits: No known use of illicits . Review of Systems All other ROS: ROS reviewed as documented in chart Past Family Social History Allergies: Coded Allergies: Contrast Media (Verified Allergy, Severe, Flash pulmonary edema , 06/16/16) PEANUTS (Verified Allergy, Severe, rash, 07/03/16) swelling of the tongue Santyl (Verified Allergy, Intermediate, Irritation, 07/09/16) *MDRO Multi-Drug Resistant Organism (Verified Adverse Reaction, Unknown, ) MRSA (leg wound) - 07/31/2016 & 08/14/16 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/2016 ESBL E. coli (urine) - 08/10/2016 Active Ordered Medications Current Medications Medications (Trade) Dose Ordered Sig/Virgilio Route Start Time Stop Time Status Last Admin (NS Flush) 2 ml UNSCH PRN IV FLUSH 07/15/16 19:45 08/12/16 05:30 (NS Flush) 2 ml BID IV FLUSH 07/15/16 21:00 09/08/16 22:22 (Reglan Inj) 5 mg Q6H PRN IV 07/15/16 19:45 09/06/16 21:32 (Synthroid) 150 mcg DAILY@06 PO 07/16/16 06:00 09/08/16 05:47 (Cytomel) 5 mcg DAILY PO 07/16/16 09:00 09/07/16 10:43 (Pill Splitter) 1 ea UNSCH PRN OTHER 07/15/16 21:30 (D50w (Vial) Inj) 25 ml UNSCH PRN IV PUSH 07/23/16 11:00 (Glucagon Inj) 1 mg UNSCH PRN OTHER 07/23/16 11:00 (Vasotec Inj) 1.25 mg Q8H PRN IV PUSH 07/28/16 16:00 (Levemir Inj) 5 units HS SQ 07/30/16 21:00 Hold 09/03/16 20:17 Melatonin 5 mg 5 mg HS PO 07/30/16 21:00 09/08/16 22:47 (Gentamicin Inj/ NS Irr Btl) 1,005 ml @ 0 mls/hr UNSCH PRN IRRIGATION 07/31/16 13:30 (Tylenol) 500 mg Q6H PRN PO 08/13/16 17:15 08/29/16 00:12 (Bactroban 2% Oint) 1 applic Q12HR TOPICAL 08/15/16 15:00 09/08/16 22:21 (Hydrocortisone 1% Cream) 1 applic Q8H TOPICAL 08/15/16 20:00 09/09/16 04:29 (Lactinex) 1 tab TID PO 08/16/16 09:00 09/07/16 18:35 Vancomycin HCl 125 mg 125 mg QID PO 08/25/16 18:00 09/09/16 17:59 09/08/16 22:17 (KCl Inj/Lr 1000 ml Inj) 1,010 ml @ 42 mls/hr Q24H IV 09/02/16 00:00 09/09/16 01:43 (Morphine Inj) 2 mg Q4HR PRN IM 09/03/16 16:15 09/07/16 04:40 (Haldol Inj) 1 mg Q6H PRN IM 09/03/16 16:15 Hold 09/04/16 09:17 (Heparin Inj) 5,000 units Q12HR SQ 09/04/16 09:00 09/08/16 22:17 (Marinol) 2.5 mg BID@11,16 PO 09/05/16 11:00 09/07/16 17:15 (Ecotrin Ec) 81 mg DAILY PO 09/05/16 09:00 Hold 09/08/16 08:42 (Coreg) 3.125 mg Q12HR PO 09/05/16 09:00 09/08/16 22:17 (Lipitor) 80 mg HS PO 09/06/16 21:00 09/08/16 22:17 Exam I&O / VS 09/08/16 09/08/16 09/09/16 15:00 23:00 07:00 Intake Total 240 ml 0 ml 307 ml Output Total 400 ml 500 ml 500 ml Balance -160 ml -500 ml -193 ml Intake Oral 240 ml 0 ml 0 ml IV Total 307 ml Output Urine Total 400 ml 500 ml 500 ml # Bowel Movements 0 0 0 Vital Signs Date Time Temp Pulse Resp B/P Pulse Ox O2 Delivery O2 Flow Rate FiO2 09/09/16 08:00 98.9 82 18 129/63 100 09/09/16 04:00 99.3 79 18 139/66 100 09/09/16 00:00 99.1 82 18 132/65 98 09/08/16 21:12 94 21 09/08/16 21:00 Room Air 09/08/16 20:02 99.4 87 20 116/65 94 09/08/16 20:00 95 09/08/16 16:02 98.5 88 20 140/70 97 09/08/16 12:02 98.3 96 20 136/71 96 Respiratory: Lungs CTA, Non-labored respirations, Symmetrical expansion Cardiology: Normal rate, Regular Rhythm Musculoskeletal: ROM, Tenderness, Swelling Neurologic: Alert Psychiatric: Cooperative Exam Comments alert, ox 1-2, not to date, able to follow simple requests, eomi, vff grossly, ou 3-2mm, facial hypomimia, generalized bradykinesia, mild increased tone in soumya ue, no tremors, slow ffm, left le bandaged, rt aka, sensory not reliable, Review/Management Diagnosis/Plan: (1) Encephalopathy Plan: likely multifactorial: recurrent infection, medication effect, poor po intake,thyroid hormone fluctuations in the setting of underlying chf ef 30% is alert and follows but not entirely oriented. has mild parkinsonism on exam which may be related to to the above, bedridden status csf studies did show mild lymphocytic monocytosis. a viral encephalitis is less likely based on her fluctuating symptoms, absence of mri findings, afebrile state for the most part. alternate, rarer causes such as paraneoplastic/autoimmune non-oncologic neurologic syndromes are possible but lesser likely based on normal neuroimaging and alternate adequate explanations. however, based on slightly abnormal csf will purse testing recs maximize nutritional support repeat csf check paraneoplastic panel, wnv abs. if she does not improve in the next few weeks despite adequate nutrition, and above negative, i would check additional programmer analyst health it specific antibodies (nmda receptor/ lg-1, etc..) d/c planning after above if negative and outpatient f/u (2) DM (diabetes mellitus), type 2, uncontrolled w/neurologic complication (3) Hypothyroidism (4) CHF (congestive heart failure) Problem Qualifiers (1) DM (diabetes mellitus), type 2, uncontrolled w/neurologic complication: (2) Hypothyroidism: Qualified Code: E03.9 - Acquired hypothyroidism (3) CHF (congestive heart failure): Luis Angel Bauer MD Sep 09, 2016 08:56
[2016-09-09] MEDS: MUPIROCIN 2% OINT 22 GM TUBE TOPICAL SCH ×2 (09:00→21:00)
[2016-09-09] MEDS: SODIUM CHLORIDE 0.9% FLUSH 5 ML FLUSH IV FLUSH SCH ×2 (09:00→21:00)
[2016-09-09 09:03] LABS: FREE T3 0.72 PG/ML (2.18-3.98); FREE T4 1.21 NG/DL (0.76-1.46)
[2016-09-09] MEDS: DRONABINOL 2.5 MG CAP PO SCH ×2 (11:00→17:05)
[2016-09-09] MEDS: VANCOMYCIN 500 MG VIAL (FOR ORAL USE ONLY) PO SCH ×2 (12:29→13:00)
[2016-09-09] MEDS: THIAMINE INJ 100 MG in SODIUM CHLORIDE 0.9% INJ 100 ML IV SCH (12:29)
[2016-09-09] MEDS: LACTOBACILLUS ACIDOPHILUS TAB PO SCH ×3 (12:29→17:05)
[2016-09-09] MEDS: HEPARIN SODIUM - SQ 10,000 UNITS/ML VIAL SQ SCH ×2 (12:30→21:39)
[2016-09-09] MEDS: CARVEDILOL 3.125 MG TAB PO SCH ×2 (12:30→21:00)
[2016-09-09] MEDS: LIOTHYRONINE SODIUM 5 MCG TAB PO SCH (12:30)
[2016-09-09] MEDS: ACETAMINOPHEN 500 MG CPLT PO PRN (17:12)
--- NOTE | 2016-09-09 18:00 | HHI.PR ---
Subjective Remarks Patient continues to improve mentally, even joking with family and using sarcasm. remains very confused, eating little. when encouraged to eat more, she says "why wouldn't I?" Objective Vitals Vital Signs Date Time Temp Pulse Resp B/P Pulse Ox O2 Delivery O2 Flow Rate FiO2 09/09/16 16:00 100.2 84 18 121/80 99 09/09/16 12:00 99.2 80 20 140/67 95 09/09/16 10:13 100 21 09/09/16 09:00 78 09/09/16 08:00 98.9 82 18 129/63 100 09/09/16 08:00 Room Air 09/09/16 04:00 99.3 79 18 139/66 100 09/09/16 00:00 99.1 82 18 132/65 98 09/08/16 21:12 94 21 09/08/16 21:00 Room Air 09/08/16 20:02 99.4 87 20 116/65 94 09/08/16 20:00 95 I/O 09/08/16 09/08/16 09/08/16 09/09/16 09/09/16 09/09/16 07:00 15:00 23:00 07:00 15:00 23:00 Intake Total 308 ml 240 ml 0 ml 307 ml 60 ml Output Total 125 ml 400 ml 500 ml 500 ml 700 ml Balance 183 ml -160 ml -500 ml -193 ml -640 ml Intake Oral 30 ml 240 ml 0 ml 0 ml 60 ml IV Total 278 ml 307 ml Output Urine Total 125 ml 400 ml 500 ml 500 ml 700 ml # Bowel Movements 0 0 0 0 0 Result Diagram: 09/07/1660409/07/16604 Objective Remarks GENERAL: Well-nourished, well-developed pleasant female patient. SKIN: Warm and dry. HEAD: Normocephalic. EYES: No scleral icterus. No injection or drainage. NECK: Supple, trachea midline. No JVD or lymphadenopathy. CARDIOVASCULAR: Regular rate and rhythm without murmurs, gallops, or rubs. RESPIRATORY: Breath sounds equal and clear to auscultation bilaterally. No accessory muscle use. GASTROINTESTINAL: Bowel sounds present. Abdomen soft, non-tender, nondistended. EXTREMITIES: Left lower extremity with large ischemic ulceration 20 cm, entire circumference of lower leg with necrotic tendon, depth 0.3 cm, several necrotic toes. right LE s/p AKA incision c/d/i well healing. Neuro: Sleeping. Opens eyes briefly but then closes them. Procedures 08/08/2016 PROCEDURE 1. Selective right lower extremity arteriogram. 2. Balloon angioplasty with a 4 mm x 2200 mm and then a 5 x 200 mm Medtronic angioplasty balloon of the right superficial femoral and proximal popliteal artery. 07/31/2016 Excision and debridement of both legs, extensive necrotic wounds approximately 30 x 25 cm area on each side, total 1000 to 1100 cm square, down to the subcutaneous tissue and tendon on the left side. 09/03/2016 Right [id number] amputation A/P Problem List: (1) Ischemic ulcer of right ankle ICD Code: L97.319 Status: Acute (2) Neuropathic pain ICD Code: M79.2 Status: Chronic (3) Delirium ICD Code: R41.0 Status: Acute (4) Chronic kidney disease (CKD) ICD Code: N18.9 Status: Chronic (5) Peripheral vascular occlusive disease ICD Code: I73.9 Status: Chronic (6) Anemia ICD Code: D64.9 Status: Chronic (7) Pain ICD Code: R52 Status: Chronic (8) PVD (peripheral vascular disease) ICD Code: I73.9 Status: Chronic (9) Cardiomyopathy ICD Code: I42.9 Status: Chronic (10) Diabetes mellitus with peripheral angiopathy with gangrene ICD Code: E11.52 Status: Acute (11) Hypoalbuminemia ICD Code: E88.09 Status: Acute (12) Anoxic encephalopathy ICD Code: G93.1 Status: Acute (13) DM type 2, uncontrolled, with neuropathy ICD Code: E11.40 Status: Chronic (14) CHF (congestive heart failure) ICD Code: I50.9 Status: Chronic (15) JAYLAN (acute kidney injury) ICD Code: N17.9 Status: Resolved (16) Severe protein-calorie malnutrition ICD Code: E43 Status: Acute (17) Hypertension ICD Code: I10 Status: Chronic (18) Anemia in chronic illness ICD Code: D63.8 Status: Acute Assessment and Plan Assessment and Plan Pt. is 61-year-old female, with multiple admissions, with history of cellulitis of legs, severe PVD, diabetes and cardiomyopathy EF of 30% was at the [facility] when she became more altered lethargic and hypoxic. Rapid response team was called and transferred patient to ICU. In the ICU patient remained confused and lethargic responsive to pain with a stable blood pressure and saturation of 100% on 40% face mask. Patient then improved and was transferred to regular medical/ surgical unit. During this hospitalization, plastic surgery, podiatry, vascular surgery followed this patient. Both podiatry and plastic surgery recommended hyperbaric treatments and future skin graft if wound beds are healed. Vascular surgery recommended against amputation and stated that her leg blood supply is adequate. Unfortunately, hyperbaric treatments can only be done in the outpatient setting if patient can go home. It cannot be done while in-patient or from SNF due to financial constraints. Attempts to transfer patient to [facility] and [place] for evaluation of encephalopathy were unsuccessful. Patient's daughter Blanche who is acting healthcare surrogate would like [facility], after receiving second neurology opinion here at [place]. -s/p right AKA for nonhealing ischemic wound. Stump well healing. management per Dr. Taylor. - Peripheral vascular disease with nonhealing left lower extremity wound with necrotic tendon, several necrotic toes-status post consultation with 3 vascular surgeons, plastic surgery, to [place]. Multiple opinions from podiatry and vascular surgeons that the leg is not salvageable, Dr. Aquino does not think that topical hyperbaric oxygen therapy will have a significant effect, patient is not a candidate for hyperbaric oxygen therapy due to the delirium. At this time family declining amputation. Cont asa, start Lipitor 80 mg at bedtime, ALT is elevated however not above 3 times limit of upper normal. Will repeat LFTs to ensure stability. Family requesting to pursue topical hyperbaric oxygen therapy. I discussed previously with Dr. Aquino, our hyperbaric oxygen specialist, he does not perform this service. Discussed with charge nurse Chloe; apparently the [employer] would be unable to setup an inservice to train our nurses on the numobag for another 7-10 days due to staffing issues at their company. Patient's daughter Blanche had requested wound therapy which was in disagreement with the wound care nurses recommendations. She declined a reconsult podiatry or plastic surgery. I recommended she talk with wound care nurse again today and she is agreeable. - Severe neuropathic pain - continue Neurontin. Morphine 2 mg intramuscular when necessary - she appears to be tolerating this. -Severe acute metabolic and possibly toxic Encephalopathy - Severe acute Delirium - now improving after pain medications decreased and Haldol DC'd. -exhaustive workup has been performed including initial LP which showed pleocytosis with lymphocyte predominance, see previous notes -Will request second neurology opinion per daughter's request, for opinion on possibly of encephalitis. Otherwise, patient may pursue neurology evaluation at [facility] or [facility] as outpatient (transfer requests were declined from both institutions). Daughter Blanche at this point in time is pleased that her mother is improving. - Appreciate input from neurology, hematology, palliative care - EEG 09/04 -moderate encephalopathy. -MRI brain with and without contrast 09/07 negative -Will hold aspirin in case neurology recommends repeat LP. Unclear if patient would be able to participate in LP without sedation with ativan, which daughter would like to avoid. I counseled Blanche on weighing the potential benefit versus setback of deciding to proceed with any further testing for the etiology of the encephalopathy at this point in time, especially as the patient is improving. I.e if pretest probabillity is low, diagnostic yield likely to be low and potential of finding an effective treatment are likely to be low, then the risk of sedating with ativan and perhaps worsening the delirium are likely to outweigh the potential benefit, whatever the desire for a definitive answer may be as to why this previously high functioning patient developed such a severe encephalopathy. Consultation with Dr. Bauer pending. - C. Diff colitis -treated - last day oral vancomycin received today/per ID/Dr. Quispe. - UTI - Microbiology grew ESBL -now treated. -Diabetes mellitus type II, currently with good Accu-Chek reads- Coverage with SSI. Monitor Accu-Cheks. Monitor for hypoglycemia. -Hypothyroidism - TSH on 09/08 23, Free T3 low at 0.72, free T4 nml. increase levothyroxine 150 g ->175. repeat TSH in several weeks. - Hypertension - Cardiomyopathy - EF 3540% -Continue carvedilol low dose. Start JOYCE inhibitor if blood pressure will tolerate and renal function remained stable. currently normotensive. S/p cardiology eval. -Acute kidney injury, resolved. -Chronic kidney disease stage III. Improved, creatinine stable around 1. -Severe malnutrition - dietary consult noted. Prealbumin is 7. Hopefully patient's by mouth intake will improve as she improves mental status. Consulted GI for eval for possible PEG tube. Started Marinol to stimulate appetite. Daughter Blanche wants to give the patient several days for improvement prior to considering PEG tube. Continue ensure, add multivitamin. - Abnormal uterine appearance - seen on abdominal and pelvis CT -pelvic ultrasound showing prominent endometrium, tumor markers negative, no history of vaginal bleeding -Heme on consult was requested per oncology service. Consider endometrial biopsy as outpatient. MRI abdomen canceled. Anemia of chronic illness - stable, monitor transfuse prn Hb<7. Full code. Heparin SQ. I spent 35 minutes [id number] with the patient and patient's daughter on the espinal discussing the patient's disposition, prognosis, and plan of care with her caregivers, and coordinating care. Over half the time spent was devoted to counseling the patient's caregiver Blanche. D/w Dr. Bauer and case management. [facility]charge [facility] anticipate this Problem Qualifiers (1) Ischemic ulcer of right ankle: Qualified Code: L97.313 - Ischemic ulcer of right ankle, with necrosis of muscle (2) Diabetes mellitus with peripheral angiopathy with gangrene: Qualified Code: E11.52 - Type 2 diabetes mellitus with diabetic peripheral angiopathy and gangrene, with long-term current use of insulin (3) CHF (congestive heart failure): Maeve Elliott MD Sep 09, 2016 17:59
--- NOTE | 2016-09-09 19:03 | MB ---
cc: DANDRE TSANG KELLY L. MD WEISS, RICHARD Corrected Copy: 09/18/16 DATE OF CONSULTATION 09/09/[address] Georges Cee REASON FOR CONSULTATION Enlarged uterus, prominent endometrial stripe. This patient is seen. Her findings are reviewed by me and evaluated in conjunction with our nurse practitioner ( Valentin Arguello) I agree with her findings, assessment and plan of care. HISTORY OF THE PRESENT ILLNESS This is a 61-year-old female whose medical history, especially in recent months, is quite complex, mental status changes, peripheral vascular disease and manifestations thereof, cellulitis, diabetes, cardiomyopathy, reduced ejection fraction. She has been in the hospital now for many, many weeks and has had to have surgeries to remove gangrenous lower extremity. The cause for her mental status changes are unclear. She has had extensive evaluation workup to try to identify sources or explanations without clear-cut explanation. At times she will be completely obtunded, nonresponsive, however, one of close friends who is a nurse said that she actually was awake over the weekend and was quite coherent, answering questions and speaking clearly so that she does have periods where her mental status is his back close to baseline. We are asked to see her up by Dr. Georges Cee because a CT scan showed an enlarged uterus approximately 11 cm and the endometrial stripe was prominent at approximately 11 mm. The underlying question is whether not there would be an underlying malignancy and a rare paraneoplastic syndrome that could possibly explain some of her mental and physical changes. In review of CT scan imaging and review of her history, talking with nurses and family members, there had been no vaginal bleeding, spotting or blood-tinged discharge and the vast majority of endometrial cancers will manifest bleeding. Furthermore CT scan shows no changes to suggest metastatic disease, so the chance of an endometrial cancer being present, especially localized endometrial cancer with no evidence of metastatic disease that is responsible for a paraneoplastic syndrome would be extremely rare. 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 Furthermore, what would be done with that information is a subsequent question, because if a cancer were detected she is not a surgical operative candidate given all of her current ongoing problems. Valentin Arguello had a discussion with her daughter, Blanche and seemed to be in agreement with our discussion and we agree that should she ever show significant improvement and wish to pursue that from a diagnostic standpoint we could consider it, but as far as putting her through an invasive procedure for most unlikely contributor to any paraneoplastic syndrome, I think the morbidity exceeds benefit at this time. Thank you for the consultation. We will sign off from a DOCUMENTATION SUPERVISOR oncology standpoint, available if there are any additional questions. MD KESHA Pickard/KONG /4:09 PM /4:04 PM
[2016-09-09] MEDS: MELATONIN 5 MG TAB PO SCH (21:00)
[2016-09-09] MEDS: ATORVASTATIN 80 MG TAB PO SCH (21:00)
[2016-09-09] MEDS: MORPHINE SULFATE 4 MG/ML INJ IM PRN (21:41)
[2016-09-10] VITALS (9 sets, daily range): BP systolic 117–176; BP diastolic 58–87; PULSE 50–82; RESP 18; TEMP 97.7–98.4; O2SAT 94–97
[2016-09-10] MEDS: HYDROCORTISONE 1% CREAM 30 GM TOPICAL SCH ×3 (04:00→21:50)
[2016-09-10] MEDS ORDERED: LEVOTHYROXINE SODIUM 150 MCG TAB PO SCH (06:00)
[2016-09-10] MEDS: LEVOTHYROXINE SODIUM 25 MCG TAB PO SCH (06:00)
[2016-09-10] MEDS: LEVOTHYROXINE SODIUM 150 MCG TAB PO SCH (06:00)
[2016-09-10] MEDS: INSULIN ASPART SUPPLEMENTAL SCALE SQ SCH ×4 (06:55→21:48)
[2016-09-10] MEDS: POTASSIUM CHLORIDE INJ 20 MEQ in LACTATED RINGER'S 1000 ML INJ 1,000 ML IV SCH (07:14)
[2016-09-10 09:06] LABS: HEMATOCRIT 27.7 % (35.0-46.0); MEAN CELL VOLUME 76.3 FL (80.0-100.0); MEAN CORPUSCULAR HGB CONC 31.5 % (32.0-36.0); PLATELET COUNT 472 TH/MM3 (150-450); RED BLOOD COUNT 3.63 MIL/MM3 (4.00-5.30); RED CELL DISTRIBUTION WIDTH 18.5 % (11.6-17.2); WHITE BLOOD COUNT 9.1 TH/MM3 (4.0-11.0)
[2016-09-10 09:09] LABS: REVIEW FLAG FINAL
[2016-09-10 09:15] LABS: APTT (PATIENT) 29.3 SEC (24.3-30.1); INTERNATIONAL NORMALIZED RATIO 1.1 RATIO; PROTHROMBIN TIME - PATIENT 11.8 SEC (9.8-11.6)
[2016-09-10] MEDS: LIOTHYRONINE SODIUM 5 MCG TAB PO SCH (09:21)
[2016-09-10] MEDS: MUPIROCIN 2% OINT 22 GM TUBE TOPICAL SCH ×2 (09:21→21:51)
[2016-09-10] MEDS: THIAMINE INJ 100 MG in SODIUM CHLORIDE 0.9% INJ 100 ML IV SCH (09:21)
[2016-09-10] MEDS: CARVEDILOL 3.125 MG TAB PO SCH ×2 (09:21→21:49)
[2016-09-10] MEDS: LACTOBACILLUS ACIDOPHILUS TAB PO SCH ×4 (09:21→21:48)
[2016-09-10] MEDS: SODIUM CHLORIDE 0.9% FLUSH 5 ML FLUSH IV FLUSH SCH ×2 (09:22→21:50)
[2016-09-10] MEDS: MORPHINE SULFATE 4 MG/ML INJ IM PRN (10:28)
[2016-09-10] MEDS: DRONABINOL 2.5 MG CAP PO SCH ×2 (13:54→15:53)
--- NOTE | 2016-09-10 21:04 | HHI.PR ---
Subjective Remarks Continues to improve. Patient/family declined MRI. Do not want LP unless felt to have significant potential benefit. Otherwise wanting to [facility]. D/w Blanche at bedside. patient alert enough to ask me about her thyroid levels. pt c/o pain in left toe. also earlier was complaining of pain in right leg. understanding much improved, however still confused. Objective Vitals Vital Signs Date Time Temp Pulse Resp B/P Pulse Ox O2 Delivery O2 Flow Rate FiO2 09/10/16 17:38 95 21 09/10/16 16:00 98.0 62 18 176/81 96 09/10/16 12:00 98.4 50 18 176/87 97 09/10/16 10:23 95 Nasal Cannula 21 09/10/16 08:00 80 09/10/16 08:00 98.1 76 18 139/66 96 09/10/16 08:00 Room Air 09/10/16 04:00 97.7 82 18 158/74 95 09/10/16 00:00 98.4 64 18 118/60 94 09/09/16 21:30 21 I/O 09/09/16 09/09/16 09/09/16 09/10/16 09/10/16 09/10/16 07:00 15:00 23:00 07:00 15:00 23:00 Intake Total 307 ml 60 ml 320 ml 100 ml 0 ml Output Total 500 ml 700 ml 250 ml 50 ml 700 ml Balance -193 ml -640 ml 70 ml 50 ml -700 ml Intake Oral 0 ml 60 ml 320 ml 100 ml 0 ml IV Total 307 ml Output Urine Total 500 ml 700 ml 250 ml 50 ml 700 ml # Bowel Movements 0 0 0 0 0 Result Diagram: 09/10/16 0738 09/07/16 0605 Objective Remarks GENERAL: Well-nourished, well-developed pleasant female patient. SKIN: Warm and dry. HEAD: Normocephalic. EYES: No scleral icterus. No injection or drainage. NECK: Supple, trachea midline. No JVD or lymphadenopathy. CARDIOVASCULAR: Regular rate and rhythm without murmurs, gallops, or rubs. RESPIRATORY: Breath sounds equal and clear to auscultation bilaterally. No accessory muscle use. GASTROINTESTINAL: Bowel sounds present. Abdomen soft, non-tender, nondistended. EXTREMITIES: Left lower extremity with large ischemic ulceration 20 cm, entire circumference of lower leg with necrotic tendon, depth 0.3 cm, several necrotic toes. right LE s/p AKA incision c/d/i well healing. Neuro:alert, awake, oriented to self, hospital. still confused. Procedures 08/08/2016 PROCEDURE 1. Selective right lower extremity arteriogram. 2. Balloon angioplasty with a 4 mm x 2200 mm and then a 5 x 200 mm Medtronic angioplasty balloon of the right superficial femoral and proximal popliteal artery. 07/31/2016 Excision and debridement of both legs, extensive necrotic wounds approximately 30 x 25 cm area on each side, total 1000 to 1100 cm square, down to the subcutaneous tissue and tendon on the left side. 09/03/2016 Right [id number] amputation A/P Problem List: (1) Ischemic ulcer of right ankle ICD Code: L97.319 Status: Acute (2) Neuropathic pain ICD Code: M79.2 Status: Chronic (3) Delirium ICD Code: R41.0 Status: Acute (4) Chronic kidney disease (CKD) ICD Code: N18.9 Status: Chronic (5) Peripheral vascular occlusive disease ICD Code: I73.9 Status: Chronic (6) Anemia ICD Code: D64.9 Status: Chronic (7) Pain ICD Code: R52 Status: Chronic (8) PVD (peripheral vascular disease) ICD Code: I73.9 Status: Chronic (9) Cardiomyopathy ICD Code: I42.9 Status: Chronic (10) Diabetes mellitus with peripheral angiopathy with gangrene ICD Code: E11.52 Status: Acute (11) Hypoalbuminemia ICD Code: E88.09 Status: Acute (12) Anoxic encephalopathy ICD Code: G93.1 Status: Acute (13) DM type 2, uncontrolled, with neuropathy ICD Code: E11.40 Status: Chronic (14) CHF (congestive heart failure) ICD Code: I50.9 Status: Chronic (15) JAYLAN (acute kidney injury) ICD Code: N17.9 Status: Resolved (16) Severe protein-calorie malnutrition ICD Code: E43 Status: Acute (17) Hypertension ICD Code: I10 Status: Chronic (18) Anemia in chronic illness ICD Code: D63.8 Status: Acute Assessment and Plan Assessment and Plan Pt. is 61-year-old female, with multiple admissions, with history of cellulitis of legs, severe PVD, diabetes and cardiomyopathy EF of 30% was at the [facility] facility when she became more altered lethargic and hypoxic. Rapid response team was called and transferred patient to ICU. In the ICU patient remained confused and lethargic responsive to pain with a stable blood pressure and saturation of 100% on 40% face mask. Patient then improved and was transferred to regular medical/ surgical unit. During this hospitalization, plastic surgery, podiatry, vascular surgery followed this patient. Both podiatry and plastic surgery recommended hyperbaric treatments and future skin graft if wound beds are healed. Vascular surgery recommended against amputation and stated that her leg blood supply is adequate. Unfortunately, hyperbaric treatments can only be done in the outpatient setting if patient can go home. It cannot be done while in-patient or from SNF due to financial constraints. Attempts to transfer patient to [facility] and [facility] for evaluation of encephalopathy were unsuccessful. Patient's daughter Blanche who is acting healthcare surrogate would like patient to be ultimately [facility], after receiving second neurology opinion here at [facility]. -s/p right AKA for nonhealing ischemic wound. Stump well healing. management per Dr. Taylor. - Peripheral vascular disease with nonhealing left lower extremity wound with necrotic tendon, several necrotic toes-status post consultation with 3 vascular surgeons, plastic surgery, to neurology tech. Multiple opinions from podiatry and vascular surgeons that the leg is not salvageable, Dr. Aquino does not think that topical hyperbaric oxygen therapy will have a significant effect, patient is not a candidate for hyperbaric oxygen therapy due to the delirium. At this time family declining amputation. Cont asa, start Lipitor 80 mg at bedtime, ALT is elevated however not above 3 times limit of upper normal. Will repeat LFTs to ensure stability. Family requesting to pursue topical hyperbaric oxygen therapy. I discussed previously with Dr. Aquino, our hyperbaric oxygen specialist, he does not perform this service. Discussed with charge nurse Chloe; apparently the [employer] would be unable to setup an inservice to train our nurses on the numobag for another 7-10 days due to staffing issues at their company. Patient's daughter Blanche had requested wound therapy which was in disagreement with the wound care nurses recommendations. She declined a reconsult podiatry or plastic surgery. I recommended she talk with wound care nurse again today and she is agreeable. - Severe neuropathic pain - continue Neurontin. Morphine 2 mg intramuscular when necessary - she appears to be tolerating this. -Severe acute metabolic and possibly toxic Encephalopathy - Severe acute Delirium - now improving after pain medications decreased and Haldol DC'd. -exhaustive workup has been performed including initial LP which showed pleocytosis with lymphocyte predominance, see previous notes -Will request second neurology opinion per daughter's request, for opinion on possibly of encephalitis. Otherwise, patient may pursue neurology evaluation at [facility] or [place] as outpatient (transfer requests were declined from both institutions). Daughter Blanche at this point in time is pleased that her mother is improving. - Appreciate input from neurology, hematology, palliative care - EEG 09/04 -moderate encephalopathy. -MRI brain with and without contrast 09/07 negative -2nd neuro opinion appreciated - C. Diff colitis -treated - last day oral vancomycin received ID/Dr. Quispe. - UTI - Microbiology grew ESBL -now treated. -Diabetes mellitus type II, currently with good Accu-Chek reads- Coverage with SSI. Monitor Accu-Cheks. Monitor for hypoglycemia. -Hypothyroidism - TSH on 09/08 23, Free T3 low at 0.72, free T4 nml. increase levothyroxine 150 g ->175. repeat TSH in several weeks. - Hypertension - Cardiomyopathy - EF 3540% -Continue carvedilol low dose. Start JOYCE inhibitor if blood pressure will tolerate and renal function remained stable. currently normotensive. S/p cardiology eval. -Acute kidney injury, resolved. -Chronic kidney disease stage III. Improved, creatinine stable around 1. -Severe malnutrition - dietary consult noted. Prealbumin is 7. Hopefully patient's by mouth intake will improve as she improves mental status. Consulted GI for eval for possible PEG tube. Started Marinol to stimulate appetite. Daughter Blanche wants to give the patient several days for improvement prior to considering PEG tube. Continue ensure, add multivitamin. - Abnormal uterine appearance - seen on abdominal and pelvis CT -pelvic ultrasound showing prominent endometrium, tumor markers negative, no history of vaginal bleeding -Heme on consult was requested per oncology service. Consider endometrial biopsy as outpatient. MRI abdomen canceled. Anemia of chronic illness - stable, monitor transfuse prn Hb<7. Full code. Heparin SQ. Discharge Planning [facility] Problem Qualifiers (1) Ischemic ulcer of right ankle: Qualified Code: L97.313 - Ischemic ulcer of right ankle, with necrosis of muscle (2) Diabetes mellitus with peripheral angiopathy with gangrene: Qualified Code: E11.52 - Type 2 diabetes mellitus with diabetic peripheral angiopathy and gangrene, with long-term current use of insulin (3) CHF (congestive heart failure): Maeve Elliott MD Sep 10, 2016 21:04 caregivers, and coordinating care. Over half the time spent was devoted to counseling the patient's caregiver Blanche. D/w Dr. Bauer and case management. Discharge Planning [facility], anticipate this Problem Qualifiers (1) Ischemic ulcer of right ankle: Qualified Code: L97.313 - Ischemic ulcer of right ankle, with necrosis of muscle (2) Diabetes mellitus with peripheral angiopathy with gangrene: Qualified Code: E11.52 - Type 2 diabetes mellitus with diabetic peripheral angiopathy and gangrene, with long-term current use of insulin (3) CHF (congestive heart failure): Maeve Elliott MD Sep 10, 2016 21:04
[2016-09-10] MEDS: MELATONIN 5 MG TAB PO SCH (21:48)
[2016-09-10] MEDS: ATORVASTATIN 80 MG TAB PO SCH (21:48)
[2016-09-11] VITALS (8 sets, daily range): BP systolic 108–159; BP diastolic 58–75; PULSE 75–89; RESP 18–20; TEMP 97.3–98.6; O2SAT 94–97
[2016-09-11] MEDS: HYDROCORTISONE 1% CREAM 30 GM TOPICAL SCH ×3 (04:00→19:47)
[2016-09-11] MEDS: LEVOTHYROXINE SODIUM 150 MCG TAB PO SCH (04:58)
[2016-09-11] MEDS: LEVOTHYROXINE SODIUM 25 MCG TAB PO SCH (04:58)
[2016-09-11] MEDS: INSULIN ASPART SUPPLEMENTAL SCALE SQ SCH ×4 (06:40→20:39)
[2016-09-11] MEDS: LIOTHYRONINE SODIUM 5 MCG TAB PO SCH (10:22)
[2016-09-11] MEDS: SODIUM CHLORIDE 0.9% FLUSH 5 ML FLUSH IV FLUSH SCH ×2 (10:22→20:39)
[2016-09-11] MEDS: THIAMINE INJ 100 MG in SODIUM CHLORIDE 0.9% INJ 100 ML IV SCH (10:22)
[2016-09-11] MEDS: CARVEDILOL 3.125 MG TAB PO SCH ×2 (10:22→20:38)
[2016-09-11] MEDS: MUPIROCIN 2% OINT 22 GM TUBE TOPICAL SCH ×2 (10:23→20:39)
[2016-09-11] MEDS: DRONABINOL 2.5 MG CAP PO SCH ×2 (11:00→16:00)
[2016-09-11] MEDS: MORPHINE SULFATE 4 MG/ML INJ IM PRN (11:27)
--- NOTE | 2016-09-11 12:39 | HHI.GIFU ---
Subjective Remarks Pt resting in bed, watching TV. She said she is eating again and stated that she will not be getting a PEG tube b/c she is eating. She just does not think hospital food is itneresting. Denies n/v, abdominal pain. (Abiola Marie ) Objective Vitals I&O Vital Signs Date Time Temp Pulse Resp B/P Pulse Ox O2 Delivery O2 Flow Rate FiO2 09/11/16 08:00 98.6 79 18 159/75 94 09/11/16 04:00 97.9 80 18 114/58 97 09/11/16 00:00 97.9 77 18 126/58 95 09/10/16 20:55 77 09/10/16 20:55 Room Air 09/10/16 20:00 97.9 82 18 117/58 96 09/10/16 17:38 95 21 09/10/16 16:00 98.0 62 18 176/81 96 I/O 09/10/16 09/10/16 09/10/16 09/11/16 09/11/16 09/11/16 07:00 15:00 23:00 07:00 15:00 23:00 Intake Total 100 ml 0 ml 240 ml 120 ml Output Total 50 ml 700 ml 350 ml 650 ml Balance 50 ml -700 ml -110 ml -530 ml Intake Oral 100 ml 0 ml 240 ml 120 ml Output Urine Total 50 ml 700 ml 350 ml 650 ml # Bowel Movements 0 0 1 1 Imaging Last Impressions Brain MRI 09/07/16 0000 Signed Impressions: Service Date/Time: Wednesday, September 07, 2016 20:26 - CONCLUSION: 1. No acute findings. No significant change from August 25, 2016. No abnormal enhancement post contrast. Mild chronic white matter ischemic changes. Rolando Sharif MD Pelvis Ultrasound 09/05/16 0000 Signed Impressions: Service Date/Time: Monday, September 05, 2016 19:53 - CONCLUSION: Enlarged uterus with prominence of the endometrium. Alfredo Etienne MD Chest CT 09/05/16 0000 Signed Impressions: Service Date/Time: Monday, September 05, 2016 08:47 - CONCLUSION: 1. No worrisome masses. Please see above. 2. Dilatation of the aorta 4.3 cm. 3. Atherosclerosis. Addy Hillman MD Abdomen/Pelvis CT 09/05/16 0000 Signed Impressions: Service Date/Time: Monday, September 05, 2016 08:47 - CONCLUSION: 1. Fat containing umbilical hernias. 2. Extensive atherosclerosis. 3. Indeterminate low-density lesion in the liver, incompletely characterized without contrast. 4. Basilar air space disease and atelectasis with small pericardial effusion. 5. Abnormal appearance of the uterus as described above. A pelvic ultrasound will be helpful for further assessment on a nonemergent outpatient basis. Addy Hillman MD Lumbar Puncture Fluoroscopy 08/29/16 0000 Signed Impressions: Service Date/Time: Monday, August 29, 2016 16:39 - CONCLUSION: Uncomplicated fluoroscopically guided lumbar puncture with pressures as above. Alfredo Etienne MD Chest X-Ray 08/19/16 0000 Signed Impressions: Service Date/Time: Friday, August 19, 2016 18:46 - CONCLUSION: 1. Bibasilar streakiness consistent with atelectasis and/or infiltrates. 2. Cardiomegaly. 3. Poor inspiratory result. Shamar Banuelos MD Upper Extremity Ultrasound 07/28/16 0000 Signed Impressions: Service Date/Time: Thursday, July 28, 2016 14:34 - CONCLUSION: No DVT is identified within the right upper extremity. Alfredo Eng MD Head CT 07/19/16 0000 Signed Impressions: Service Date/Time: Tuesday, July 19, 2016 09:58 - CONCLUSION: No acute intracranial findings. João Otoole MD Foot X-Ray 07/16/16 0000 Signed Impressions: Service Date/Time: Saturday, July 16, 2016 17:34 - CONCLUSION: 1. Nonspecific soft tissue swelling. No acute bone destruction demonstrated. 2. Mild talonavicular and navicular/cuneiform degenerative changes. 3. Second through fifth hammertoe. 4. Moderate-sized heel spur. Alfredo Sneed MD Physical Exam HEENT: Normocephalic; atraumatic CHEST: CTA CARDIAC: RRR ABDOMEN: deferred due to presence of inflated sack around leg and obscuring access to abd EXTREMITIES: left leg with necrotic wounds, right AKA. SKIN: Red spotted rash to left neck [employer]: Alert, oriented (Abiola Marie) Assessment and Plan Plan ASSESSMENT: - Malnutrition/Poor PO intake/Decreased appetite. GI was consulted for PEG tube. Pt does not want PEG and says she is eating better and that her family brings her food, she doesn't think hospital food is interesting. - C-diff. No diarrhea at this time. Oral vanco, Lactinex. - Anemia. No bleeding reported, not clear when was the last time she has had colonoscopy, cea 1.7 - Liver lesion. Abdomen/Pelvis CT 1. Fat containing umbilical hernias. 2. Extensive atherosclerosis. 3. Indeterminate low-density lesion in the liver, incompletely characterized without contrast. 4. Basilar air space disease and atelectasis with small pericardial effusion. 5. Abnormal appearance of the uterus as described above. A pelvic ultrasound will be helpful for further assessment on a nonemergent outpatient basis. MRI declined. AFP 1.3. - History of cellulitis of legs, severe PVD, She is s/p right AKA on 09/03/16. - Diabetes and cardiomyopathy EF of 30% per attending - Severe delirium.Neurology, hematology, ID, plastic surgery, vascular surgery, palliative care on the case. No etiology found for patient's declining status , she was declined by [facility] Plan: - SAMANTA- not eating much of this, eats outside food - await calorie count - Cont. Marinol - Supportive care - GI will sign off. Please reconsult as needed. - Patient seen and examined by Dr. Mendoza and myself and this note is written on her behalf (Abiola Marie) Physician Comments reviewed her old records -has a history of adenomatous colon polyps, colonoscopy in 2005 and 2009-last colon done by dr yen was negative, fu colonoscopy in 5 yrs.No records of egd family not in agreement for any invasive procedures if any change in their wishes we will proceed with additional gi w-up call us as needed (Sabrina Mendoza MD) Abiola Marie Sep 11, 2016 12:39 Sabrina Mendoza MD Sep 14, 2016 10:18
--- NOTE | 2016-09-11 12:48 | PD.VS.PN ---
Subjective Subjective/Hospital Course Pt sitting up in bed comfortably with oxygen therapy to LLE Pt appears more alert and responding appropriately to questions Objective Vitals/I&O Date Time Temp Pulse Resp B/P Pulse Ox O2 Delivery O2 Flow Rate FiO2 09/11/16 08:00 98.6 79 18 159/75 94 09/11/16 04:00 97.9 80 18 114/58 97 09/11/16 00:00 97.9 77 18 126/58 95 09/10/16 20:55 77 09/10/16 20:55 Room Air 09/10/16 20:00 97.9 82 18 117/58 96 09/10/16 17:38 95 21 09/10/16 16:00 98.0 62 18 176/81 96 09/11/16 09/11/16 09/11/16 07:00 15:00 23:00 Intake Total 120 ml Output Total 650 ml Balance -530 ml Physical Exam GENERAL: Alert, resting comfortably SKIN: Warm and dry. [place] intact to R AKA, stocking in place C/D no redness/ drainage or swelling CARDIOVASCULAR: RRR, +S1,S2 RESPIRATORY: Breath sounds equal and clear bilaterally. No accessory muscle use. Assessment and Plan Plan Plan Pt doing well post operatively after her R AKA OOB to chair Will continue to follow Nasrin [facility] [phone] Nasrin Carl Sep 11, 2016 12:48
[2016-09-11] MEDS: LACTOBACILLUS ACIDOPHILUS TAB PO SCH ×2 (13:00→17:39)
--- NOTE | 2016-09-11 13:00 | HHI.DS ---
Discharge Summary Admission Date Jul 15, 2016 at 15:32 Discharge Date: Sep 11, 2016 Admitting Diagnosis Resp Failure (1) Ischemic ulcer of right ankle ICD Code: L97.319 (2) Neuropathic pain ICD Code: M79.2 (3) Delirium ICD Code: R41.0 (4) Chronic kidney disease (CKD) ICD Code: N18.9 (5) Peripheral vascular occlusive disease ICD Code: I73.9 (6) Anemia ICD Code: D64.9 (7) Pain ICD Code: R52 (8) PVD (peripheral vascular disease) ICD Code: I73.9 (9) Cardiomyopathy ICD Code: I42.9 (10) Diabetes mellitus with peripheral angiopathy with gangrene ICD Code: E11.52 (11) Hypoalbuminemia ICD Code: E88.09 (12) Anoxic encephalopathy ICD Code: G93.1 (13) DM type 2, uncontrolled, with neuropathy ICD Code: E11.40 (14) CHF (congestive heart failure) ICD Code: I50.9 (15) JAYLAN (acute kidney injury) ICD Code: N17.9 (16) Severe protein-calorie malnutrition ICD Code: E43 (17) Hypertension ICD Code: I10 (18) Anemia in chronic illness ICD Code: D63.8 Procedures 08/08/2016 PROCEDURE 1. Selective right lower extremity arteriogram. 2. Balloon angioplasty with a 4 mm x 2200 mm and then a 5 x 200 mm Medtronic angioplasty balloon of the right superficial femoral and proximal popliteal artery. 07/31/2016 Excision and debridement of both legs, extensive necrotic wounds approximately 30 x 25 cm area on each side, total 1000 to 1100 cm square, down to the subcutaneous tissue and tendon on the left side. 09/03/2016 Right [id number] amputation Brief History - From Admission 61-year-old female, with multiple admissions, with history of cellulitis of legs , severe PVD, diabetes and cardiomyopathy EF of 30% was at the rehabilitation facility when she became more altered today lethargic and hypoxic. Rapid response team was called and transferred patient to ICU. During my evaluation in the ICU patient remains confused and lethargic responsive to pain with a stable blood pressure and saturation of 100% on 40% face mask. Review of Systems CBC/BMP: 09/10/16 0738 09/07/16 0605 Significant Findings Laboratory Tests Test 09/09/16 09/10/16 07:42 07:38 Free Triiodothyronine (T3) 0.72 PG/ML pg/dL (2.18-3.98) Red Blood Count 3.63 MIL/MM3 (4.00-5.30) Hemoglobin 8.7 GM/DL (11.6-15.3) Hematocrit 27.7 % (35.0-46.0) Mean Corpuscular Volume 76.3 FL (80.0-100.0) Mean Corpuscular Hemoglobin 24.0 PG (27.0-34.0) Mean Corpuscular Hemoglobin 31.5 % Concent (32.0-36.0) Red Cell Distribution Width 18.5 % (11.6-17.2) Platelet Count 472 TH/MM3 (150-450) Mean Platelet Volume 6.4 FL (7.0-11.0) Erythrocyte Sedimentation Rate 65 mm/hr (0-30) Prothrombin Time 11.8 SEC (9.8-11.6) C-Reactive Protein 5.70 MG/DL (0.00-0.30) Vitamin B12 Level 1017 PG/ML (193-986) Imaging Last Impressions Brain MRI 09/07/16 0000 Signed Impressions: Service Date/Time: Wednesday, September 07, 2016 20:26 - CONCLUSION: 1. No acute findings. No significant change from August 25, 2016. No abnormal enhancement post contrast. Mild chronic white matter ischemic changes. Rolando Sharif MD Pelvis Ultrasound 09/05/16 0000 Signed Impressions: Service Date/Time: Monday, September 05, 2016 19:53 - CONCLUSION: Enlarged uterus with prominence of the endometrium. Alfredo Etienne MD Chest CT 09/05/16 0000 Signed Impressions: Service Date/Time: Monday, September 05, 2016 08:47 - CONCLUSION: 1. No worrisome masses. Please see above. 2. Dilatation of the aorta 4.3 cm. 3. Atherosclerosis. Addy Hillman MD Abdomen/Pelvis CT 09/05/16 0000 Signed Impressions: Service Date/Time: Monday, September 05, 2016 08:47 - CONCLUSION: 1. Fat containing umbilical hernias. 2. Extensive atherosclerosis. 3. Indeterminate low-density lesion in the liver, incompletely characterized without contrast. 4. Basilar air space disease and atelectasis with small pericardial effusion. 5. Abnormal appearance of the uterus as described above. A pelvic ultrasound will be helpful for further assessment on a nonemergent outpatient basis. Addy Hillman MD Lumbar Puncture Fluoroscopy 08/29/16 0000 Signed Impressions: Service Date/Time: Monday, August 29, 2016 16:39 - CONCLUSION: Uncomplicated fluoroscopically guided lumbar puncture with pressures as above. Alfredo Etienne MD Chest X-Ray 08/19/16 0000 Signed Impressions: Service Date/Time: Friday, August 19, 2016 18:46 - CONCLUSION: 1. Bibasilar streakiness consistent with atelectasis and/or infiltrates. 2. Cardiomegaly. 3. Poor inspiratory result. Shamar Banuelos MD Upper Extremity Ultrasound 07/28/16 0000 Signed Impressions: Service Date/Time: Thursday, July 28, 2016 14:34 - CONCLUSION: No DVT is identified within the right upper extremity. Alfredo Eng MD Head CT 07/19/16 0000 Signed Impressions: Service Date/Time: Tuesday, July 19, 2016 09:58 - CONCLUSION: No acute intracranial findings. João Otoole MD Foot X-Ray 07/16/16 0000 Signed Impressions: Service Date/Time: Saturday, July 16, 2016 17:34 - CONCLUSION: 1. Nonspecific soft tissue swelling. No acute bone destruction demonstrated. 2. Mild talonavicular and navicular/cuneiform degenerative changes. 3. Second through fifth hammertoe. 4. Moderate-sized heel spur. Alfredo Sneed MD PE at Discharge GENERAL: Well-nourished, well-developed pleasant female patient. SKIN: Warm and dry. HEAD: Normocephalic. EYES: No scleral icterus. No injection or drainage. NECK: Supple, trachea midline. No JVD or lymphadenopathy. CARDIOVASCULAR: Regular rate and rhythm without murmurs, gallops, or rubs. RESPIRATORY: Breath sounds equal and clear to auscultation bilaterally. No accessory muscle use. GASTROINTESTINAL: Bowel sounds present. Abdomen soft, non-tender, nondistended. EXTREMITIES: Left lower extremity with large ischemic ulceration 20 cm, entire circumference of lower leg with necrotic tendon, depth 0.3 cm, several necrotic toes. right LE s/p AKA incision c/d/i well healing. Neuro:alert, awake, oriented to self, hospital. still confused. Hospital Course Pt. is 61-year-old female, with multiple admissions, with history of cellulitis of legs, severe PVD, diabetes and cardiomyopathy EF of 30% was at the [facility] rehabilitation facility when she became more altered lethargic and hypoxic. Rapid response team was called and transferred patient to ICU. In the ICU patient remained confused and lethargic responsive to pain with a stable blood pressure and saturation of 100% on 40% face mask. Patient then improved and was transferred to regular medical/ surgical unit. During this hospitalization, plastic surgery, podiatry, vascular surgery followed this patient. Both podiatry and plastic surgery recommended hyperbaric treatments and future skin graft if wound beds are healed. Vascular surgery recommended against amputation and stated that her leg blood supply is adequate. Unfortunately, hyperbaric treatments can only be done in the outpatient setting if patient can go home. It cannot be done while in-patient or from SNF due to financial constraints. Attempts to transfer patient to [facility] and [facility] for evaluation of encephalopathy were unsuccessful. Patient's daughter Blanche who is acting healthcare surrogate would like patient to be ultimately [facility], after receiving second neurology opinion here at [facility]. -s/p right AKA for nonhealing ischemic wound. Stump well healing. management per Dr. Taylor. - Peripheral vascular disease with nonhealing left lower extremity wound with necrotic tendon, several necrotic toes-status post consultation with 3 vascular surgeons, plastic surgery, to technology engineer. Family has declined AKA to date. Topical oxygen therapy has been started today with numobag, which the family has paid for out of pocket. Cont aspirin, statin. - Severe neuropathic pain - continue Neurontin. Morphine 2 mg intramuscular when necessary - she appears to be tolerating this without sedation. -Severe acute metabolic and possibly toxic Encephalopathy - Severe acute Delirium - now improving after pain medications decreased and Haldol DC'd. -exhaustive workup has been performed including initial LP which showed pleocytosis with lymphocyte predominance, see previous notes -Will request second neurology opinion per daughter's request, for opinion on possibly of encephalitis. Otherwise, patient may pursue neurology evaluation at located within [facility] or [facility] as outpatient (transfer requests were declined from both institutions). Daughter Blanche at this point in time is pleased that her mother is improving. - Appreciate input from neurology, hematology, palliative care - EEG 09/04 -moderate encephalopathy. -MRI brain with and without contrast 09/07 negative -Will hold aspirin in case neurology recommends repeat LP. Unclear if patient would be able to participate in LP without sedation with ativan, which daughter would like to avoid. I counseled Blanche on weighing the potential benefit versus setback of deciding to proceed with any further testing for the etiology of the encephalopathy at this point in time, especially as the patient is improving. I.e if pretest probabillity is low, diagnostic yield likely to be low and potential of finding an effective treatment are likely to be low, then the risk of sedating with ativan and perhaps worsening the delirium are likely to outweigh the potential benefit, whatever the desire for a definitive answer may be as to why this previously high functioning patient developed such a severe encephalopathy. Consultation with Dr. Bauer discussed today. LP has low likelihodd probability of being positive, and low probability of being anything treatable. Family is declining LP as the patient is improving, they just want her to go to the next level of care. - C. Diff colitis -treated - last day oral vancomycin received 09/10 /per ID/Dr. Quispe. - UTI - Microbiology grew ESBL -now treated. -Diabetes mellitus type II, currently with good Accu-Chek reads- Coverage with SSI only. Monitor Accu-Cheks. Monitor for hypoglycemia. -Hypothyroidism - TSH on 09/08 23, Free T3 low at 0.72, free T4 nml. increased levothyroxine 150 g ->175. repeat TSH in several weeks. - Hypertension - Cardiomyopathy - EF 3540% -Continue carvedilol low dose. Resume her home losartan if blood pressure will tolerate and renal function remained stable however currently normotensive. S/p cardiology eval. -Acute kidney injury, resolved. -Chronic kidney disease stage III. Improved, creatinine stable around 1. -Severe malnutrition - dietary consult noted. Prealbumin is 7. Hopefully patient's by mouth intake will improve as she improves mental status. Consulted GI for eval for possible PEG tube. Started Marinol to stimulate appetite. Daughter Blanche wants to give the patient several days for improvement prior to considering PEG tube. Continue ensure, add multivitamin. Patient has continued to improve PO intake. - Abnormal uterine appearance - seen on abdominal and pelvis CT -pelvic ultrasound showing prominent endometrium, tumor markers negative, no history of vaginal bleeding -Heme on consult was requested per oncology service. Consider endometrial biopsy as outpatient. MRI abdomen canceled. Anemia of chronic illness - stable, monitor transfuse prn Hb<7. Unstagable small 0.8 cm x 2 cm sacral decubitus ulcer. I discussed with the wound care nurse today. The patient is allergic to Santyl. Thus we will need to do department with wet-to-dry dressings daily. She also has a right buttock deep tissue injury which is to be left open to air. Full code. Heparin SQ. AFTER ARRANGING DISCHARGE, I WAS INFORMED BY THE AUTOMATIC CAR WASH ATTENDANT THAT THE PATIENT WAS NOT YET ACCEPTED AT [facility]. THUS DISCHARGE WILL BE HELD. Pt Condition on Discharge: Stable Discharge Disposition: Discharge to SNF Discharge Time: > 30 minutes Discharge Instructions DIET: Follow Instructions for: Diabetic Diet Speech Therapy-Diet Recommends: Regular Activities you can perform: Regular-No Restrictions Follow up Referrals: PCP Follow-up - 3-5 Days Podiatry - 1 Week Pulmonology Vascular Surgery - 2 Weeks New Medications: Famotidine Liq (Famotidine Liq) 40 Mg/5 Ml Susp 10 MG PO BID GERD Days [address] (Aspirin EC) 81 Mg Tabdr 81 MG PO DAILY cad #30 TAB Atorvastatin (Atorvastatin) 80 Mg Tab 80 MG PO HS hyperlipidemia #30 TAB Carvedilol (Coreg) 3.125 Mg Tab 3.125 MG PO Q12HR Blood Pressure Management #60 TAB Dronabinol (Marinol) 2.5 Mg Cap 2.5 MG PO BID@11,16 nausea #60 CAP Hydrocortisone Topical (Hydrocortisone Topical) 1% Cream 1 APPLIC TOPICAL Q8H Rash #1 TUBE Lactobacillus Acidophilus (Acidophilus/l-Sporogenes) 1 Tab Tab 1 TAB PO TID bowel management #90 TAB Melatonin (Melatonin) 5 Mg Tab 5 MG PO HS sleep #30 TAB Morphine Sulfate (Morphine Sulfate) 4 Mg/Ml Inj 2 MG IM Q4HR PRN Pain 1-10 #30 INJECTION Continued Medications: Bupropion HCl ER 12 HR (Wellbutrin SR 12 HR) 150 Mg Tab 150 MG PO Q12HR #[address] (Duloxetine DR) 30 Mg Capdr 30 MG PO Q12HR #60 CAP Furosemide (Lasix) 20 Mg Tab 20 MG PO DAILY #30 Ref 0 TAB Gabapentin (Neurontin) 300 Mg Cap 300 MG PO BID neuropathy #60 CAP Heparin Sodium (Porcine) (Heparin Sodium) 10,000 Unit/Ml Inj 5000 UNITS SQ Q12HR Days 1 INJECTION Lactobacillus Acidophilus (Acidophilus/l-Sporogenes) 1 Tab Tab 1 TAB PO TID #90 TAB Levofloxacin (Levaquin) 250 Mg Tab 250 MG PO Q48H infection #5 TAB (This prescription has been renewed) Levothyroxine (Synthroid) 150 Mcg Tab 150 MCG PO DAILY@06 #30 TAB Levothyroxine (Levothyroxine) 25 Mcg Tab 25 MCG PO DAILY@06 #30 TAB Liothyronine (Cytomel) 5 Mcg Tab 5 MCG PO DAILY #30 TAB Multiple Vitamins W/ Minerals (Thera M Plus) 1 Tab 1 TAB PO DAILY #30 TAB Discontinued Medications: Bisacodyl Supp (Dulcolax Supp) 10 Mg Supp 10 MG RECTAL DAILY PRN IF NO BM 1 DAY AFTER MOM #12 Ref 0 SUPP Carvedilol (Coreg) 12.5 Mg Tab 25 MG PO BID #120 TAB Clonazepam (Clonazepam) 0.5 Mg Tab 0.5 MG PO Q8HR PRN ANXIETY #15 Ref 0 TAB Docusate Sodium (Dok) 100 Mg Cap 100 MG PO BID #60 CAP Fluconazole (Diflucan) 100 Mg Tab 75 MG PO DAILY@17 Days 1 TAB Glucagon (Rdna) Inj Kit (Glucagen Hypokit Inj Kit) 1 Mg Kit 1 MG IM ONCE PRN DM, IF BS <50 #1 Ref 0 KIT Insulin Detemir Inj (Levemir Inj) 1,000 unit/ 10 ML Vial 15 UNITS SQ HS Do not mix with any other Insulin. Blood Sugar Management Days 30 Ref 0 VIAL Insulin Detemir Inj (Levemir Inj) 1,000 unit/ 10 ML Vial 25 UNITS SQ HS Days 30 INJECTION Isosorbide Dinitrate (Isordil Titradose) 5 Mg Tab 5 MG PO Q8HR #90 TAB Losartan (Losartan) 100 Mg Tab 100 MG PO DAILY Blood Pressure Management #30 Ref 0 TAB Oxycodone-Acetaminophen (Oxycodone-Acetaminophen) 5-325 mg Tab 1 TAB PO Q4H PRN pain #15 Ref 0 TAB Quetiapine (Quetiapine) 25 Mg Tab 25 MG PO BID #60 TAB Sodium Chloride (Sodium Chloride) 1 Gm Tab 1 GM PO DAILY Electrolyte Replacement Ref 0 TAB ([Aspirin Ec]) 325 MG TABEC 325 MG PO DAILY #30 TAB.EC Maeve Elliott MD Sep 11, 2016 13:00
[2016-09-11] MEDS ORDERED: CARV3.125 PO (13:29)
[2016-09-11] MEDS ORDERED: DRON2.5 PO (13:29)
[2016-09-11] MEDS ORDERED: MELA1TAB22 PO (13:29)
[2016-09-11] MEDS ORDERED: HYDR1CRE TOPICAL (13:29)
[2016-09-11] MEDS ORDERED: LACT PO (13:29)
[2016-09-11] MEDS ORDERED: ATOR1TAB18 PO (13:29)
[2016-09-11] MEDS ORDERED: ASPI81TA11 PO (13:29)
[2016-09-11 19:52] LABS: THYROGLOB ABS LESS THAN 1 IU/mL (< OR = 1)
[2016-09-11] MEDS: ATORVASTATIN 80 MG TAB PO SCH (20:39)
[2016-09-11] MEDS: MELATONIN 5 MG TAB PO SCH (20:39)
[2016-09-11] MEDS: POTASSIUM CHLORIDE INJ 20 MEQ in LACTATED RINGER'S 1000 ML INJ 1,000 ML IV SCH ×3 (23:30)
[2016-09-12] VITALS (8 sets, daily range): BP systolic 103–148; BP diastolic 57–76; PULSE 71–88; RESP 18–20; TEMP 97.3–98.8; O2SAT 93–97
[2016-09-12] MEDS: HYDROCORTISONE 1% CREAM 30 GM TOPICAL SCH ×3 (03:01→19:29)
[2016-09-12] MEDS: LEVOTHYROXINE SODIUM 150 MCG TAB PO SCH (05:19)
[2016-09-12] MEDS: LEVOTHYROXINE SODIUM 25 MCG TAB PO SCH (05:19)
[2016-09-12] MEDS: INSULIN ASPART SUPPLEMENTAL SCALE SQ SCH ×4 (06:00→21:00)
[2016-09-12] MEDS: LACTOBACILLUS ACIDOPHILUS TAB PO SCH ×4 (09:00→17:10)
[2016-09-12] MEDS: SODIUM CHLORIDE 0.9% FLUSH 5 ML FLUSH IV FLUSH SCH ×2 (09:00→21:00)
[2016-09-12] MEDS: THIAMINE INJ 100 MG in SODIUM CHLORIDE 0.9% INJ 100 ML IV SCH (09:52)
[2016-09-12] MEDS: CARVEDILOL 3.125 MG TAB PO SCH ×2 (09:53→21:07)
[2016-09-12] MEDS: DRONABINOL 2.5 MG CAP PO SCH ×3 (09:53→16:00)
[2016-09-12] MEDS: MUPIROCIN 2% OINT 22 GM TUBE TOPICAL SCH ×2 (09:53→21:00)
[2016-09-12] MEDS: LIOTHYRONINE SODIUM 5 MCG TAB PO SCH (09:53)
--- NOTE | 2016-09-12 15:46 | HHI.HCPN ---
Reason for visit a. To assist with evaluation and management of symptoms including: weakness , decreased appetite. b. To assist medical decision maker(s) with: better understanding of current medical conditions; weighing benefits/burdens of medical treatment options; making medical treatment decisions. . Subjective/Interval History Patient seen and examined in room. No family at bedside. Patient is awake and alert. Numobag in place. She is eating better per her report. Afebrile. Vital signs stable. LBM 09/11/16. Patient is hopeful for continued recovery. She does not remember events over the past few months, she is thankful for her children. She denies any pain or anxiety. She reports an occasional "twinge" of pain in her right abdomen. She has not needed any PRN Morphine in the past 24 hours. No new labs or imaging. . Family/friend interactions No family at bedside. . Advance Directives Living Will: Never completed Health Care Surrogate: Never completed Durable Power of Payment Collector: Completed, but not made available Advance Directive Specifics Date completed: Family reports there is a completed POA document -- not available to us at this time. Unknown date. . Health Care Surrogate(s): is reportedly the health care POA. Even if there is no documented designation of health care POA or surrogate, he would serve as proxy. Spoke with in person on 08/12/16. He tells me how he knows nothing about health care and is fine if patient's daughter Blanche serves as proxy. As does not want to serve, it would fall to both son and daughter. Patient 's son also opts out (as he is out of town often) therefore leaving decision- making to patient's daughter Blanche. . Documented care wishes: No documented wishes of patient's expressed health care goals/preferences. . Significant change in goals: FULL CODE. Desires continued aggressive care, hopeful for continued recovery and rehab post hospitalization. . Objective Vital Signs Date Time Temp Pulse Resp B/P Pulse Ox O2 Delivery O2 Flow Rate FiO2 09/12/16 14:39 71 09/12/16 12:32 97.3 79 18 148/60 96 09/12/16 10:04 95 Room Air 09/12/16 08:33 95 09/12/16 08:01 97.6 83 18 137/67 95 09/12/16 04:00 97.7 88 20 103/57 93 09/12/16 00:00 98.8 85 18 127/76 94 09/11/16 21:43 97 Nasal Cannula 21 09/11/16 21:00 Room Air 09/11/16 20:00 98.2 88 20 108/59 97 09/11/16 20:00 89 09/11/16 18:25 97 Room Air 09/11/16 18:00 79 09/11/16 16:00 97.8 75 18 139/67 97 Intake & Output 09/12/16 09/12/16 07:00 19:00 Intake Total 275 ml Output Total 0 ml Balance 275 ml Intake Oral 0 ml IV Total 275 ml Output Urine Total 0 ml # Voids 0 # Bowel Movements 0 Physical Exam CONSTITUTIONAL/GENERAL: Awake and alert. Speech is clear. No distress noted. SKIN: No jaundice. Ecchymoses on upper extremities. Dressing LLE toes to calf, dry and intact. Right AKA, no drainage or erythema noted. Rash on the left side of the face and neck that seems to be healing. CARDIOVASCULAR: Regular rate and rhythm without gallops, or rubs. 2/6 systolic murmur heard. RESPIRATORY/CHEST: Symmetric, unlabored respirations. Clear to auscultation. GASTROINTESTINAL: Abdomen soft, nondistended. No guarding. Bowel sounds present. MUSCULOSKELETAL:Right AKA, Left LE with wounds noted toes, heel and below knee to ankle. Numobag in place. NEUROLOGICAL: Moves extremities. Speech is clear. PSYCHIATRIC: Awake and alert, calm. . . Diagnostic Tests Laboratory Laboratory Tests Test 09/10/16 07:38 White Blood Count 9.1 TH/MM3 (4.0-11.0) Red Blood Count 3.63 MIL/MM3 (4.00-5.30) Hemoglobin 8.7 GM/DL (11.6-15.3) Hematocrit 27.7 % (35.0-46.0) Mean Corpuscular Volume 76.3 FL (80.0-100.0) Mean Corpuscular Hemoglobin 24.0 PG (27.0-34.0) Mean Corpuscular Hemoglobin 31.5 % Concent (32.0-36.0) Red Cell Distribution Width 18.5 % (11.6-17.2) Platelet Count 472 TH/MM3 (150-450) Mean Platelet Volume 6.4 FL (7.0-11.0) Erythrocyte Sedimentation Rate 65 mm/hr (0-30) Prothrombin Time 11.8 SEC (9.8-11.6) Prothromb Time International 1.1 RATIO Ratio Activated Partial 29.3 SEC Thromboplast Time (24.3-30.1) C-Reactive Protein 5.70 MG/DL (0.00-0.30) Vitamin B12 Level 1017 PG/ML (193-986) Rapid Plasma Reagin NON-REACTIVE (NON-REACTVE) Thyroglobulin Antibody LESS THAN 1 IU/mL (< OR = 1) Thyroid Peroxidase Antibodies 21 IU/mL (<9) Thiamine Level 263 nmol/L (70-180) Result Diagram: 09/10/16 0738 Imaging Last Impressions Brain MRI 09/07/16 0000 Signed Impressions: Service Date/Time: Wednesday, September 07, 2016 20:26 - CONCLUSION: 1. No acute findings. No significant change from August 25, 2016. No abnormal enhancement post contrast. Mild chronic white matter ischemic changes. Rolando Sharif MD Pelvis Ultrasound 09/05/16 0000 Signed Impressions: Service Date/Time: Monday, September 05, 2016 19:53 - CONCLUSION: Enlarged uterus with prominence of the endometrium. Alfredo Etienne MD Chest CT 09/05/16 0000 Signed Impressions: Service Date/Time: Monday, September 05, 2016 08:47 - CONCLUSION: 1. No worrisome masses. Please see above. 2. Dilatation of the aorta 4.3 cm. 3. Atherosclerosis. Addy Hillman MD Abdomen/Pelvis CT 09/05/16 0000 Signed Impressions: Service Date/Time: Monday, September 05, 2016 08:47 - CONCLUSION: 1. Fat containing umbilical hernias. 2. Extensive atherosclerosis. 3. Indeterminate low-density lesion in the liver, incompletely characterized without contrast. 4. Basilar air space disease and atelectasis with small pericardial effusion. 5. Abnormal appearance of the uterus as described above. A pelvic ultrasound will be helpful for further assessment on a nonemergent outpatient basis. Addy Hillman MD Lumbar Puncture Fluoroscopy 08/29/16 0000 Signed Impressions: Service Date/Time: Monday, August 29, 2016 16:39 - CONCLUSION: Uncomplicated fluoroscopically guided lumbar puncture with pressures as above. Alfredo Etienne MD Chest X-Ray 08/19/16 0000 Signed Impressions: Service Date/Time: Friday, August 19, 2016 18:46 - CONCLUSION: 1. Bibasilar streakiness consistent with atelectasis and/or infiltrates. 2. Cardiomegaly. 3. Poor inspiratory result. Shamar Banuleos MD Upper Extremity Ultrasound 07/28/16 0000 Signed Impressions: Service Date/Time: Thursday, July 28, 2016 14:34 - CONCLUSION: No DVT is identified within the right upper extremity. Alfredo Eng MD Head CT 07/19/16 0000 Signed Impressions: Service Date/Time: Tuesday, July 19, 2016 09:58 - CONCLUSION: No acute intracranial findings. João Otoole MD Foot X-Ray 07/16/16 0000 Signed Impressions: Service Date/Time: Saturday, July 16, 2016 17:34 - CONCLUSION: 1. Nonspecific soft tissue swelling. No acute bone destruction demonstrated. 2. Mild talonavicular and navicular/cuneiform degenerative changes. 3. Second through fifth hammertoe. 4. Moderate-sized heel spur. Alfredo Sneed MD . Procedures 07/31/2016 Excision and debridement of both legs, extensive necrotic wounds approximately 30 x 25 cm area on each side, total 1000 to 1100 cm square, down to the subcutaneous tissue and tendon on the left side. 08/08/2016 1. Selective right lower extremity arteriogram. 2. Balloon angioplasty with a 4 mm x 2200 mm and then a 5 x 200 mm Medtronic angioplasty balloon of the right superficial femoral and proximal popliteal artery. Note that patient had these additional procedures on prior admissions: * Bilateral lower extremity wound debridements 05/15/16 * Bilateral LE Debridements and Left SFA angioplasty on 06/23/16 Right AKA 09/02/16 . Assessment and Plan Disease Oriented Problem List: (1) complicated/infected/necrotic foot and leg wounds (2) PVD (peripheral vascular disease) Comment: With infected/nonhealing wounds and gangrene (3) DM (diabetes mellitus), type 2, uncontrolled, periph vascular complic (4) CHF (congestive heart failure) (5) Hypertension (6) Cellulitis of left lower extremity (7) Ulcer of heel and midfoot (8) Hypothyroidism (9) Anemia (10) Urinary tract infection Comment: Cx of 08/11/16 growing out E coli ESBL . (11) Hypoalbuminemia (12) Uterine mass Comment: Abnormality of uncertain significance seen on CT of 09/05/16 . Symptom Scale: (1) Pain 0-10 Scale: 0 Comment: Unable to quantify/qualify pain -- too delirious agitated. Had AKA on 09/02/16 so likely has post-op pain. . . (2) Delirium 0-10 Scale: 0 Comment: probably multifactorial, improving (3) Decreased appetite 0-10 Scale: Unable to quantify Comment: improving. (4) Weakness 0-10 Scale: Unable to quantify Comment: continue PT/OT Pertinent Non-Medical Issues Psychosocial: Psychosocial support from and daughter (lives locally). Son in [place] is very involved, but is often working out of the country. Spiritual: [employer]ist. Had been a member of [employer]. Legal: Family reports there is a completed POA for finance and health care. and patient's son are OK yielding decision making to patient's daughter. Ethical issues impacting care: Patient is currently incapacitated due to delirium. . Important Contacts * Blanche (daughter/ HC Proxy) [phone] * Alfredo Lemos (spouse) [phone] * Kalpesh (son) [phone] . Prognosis The patient has severe peripheral vascular disease and accompanying refractory lower extremity wounds. Wounds have worsened in spite of aggressive care beginning in March 2016. She has undergone re-vascularization procedures on both lower extremities since May. Wounds went on to involve tendon structures in the feet. She went to right sided AKA on 09/02/16. We have not been able to control her delirium which is having a profound effect on prognosis. She is either extremely agitated / confused or on a very small amount of medication becomes overly lethargic. Prognosis will depend also on whether or not she can heal well at the stump and whether or not the LLE wounds can be controlled. . . Code Status: Full Code Plan * Decision making: Patient is currently capacitated to make her own health care decisions, at least with shared decision making with her family. Will attempt to have patient complete written advanced directives at next visit. * FULL CODE * Goals of medical treatment: Patient desires ongoing aggressive care. * Palliative care will attempt to complete written advanced directives with patient next visit. * Confusion: improved. * Pain: Pain related to ischemic pain and wound pain in the lower extremities and now post-op pain from amputation of 09/02/16. She may also have some lower extremity pain secondary to diabetic neuropathy. Patient denies pain today. No PRN Morphine in the past 24 hours. * No new medication recommendations at this time. * Palliative care will continue to follow the patient to assist with symptom management and to further clarify goals of medical treatment as the clinical course evolves. . Attestation To help prompt me to consider important information that might be impacting today's encounter and assessment, information from prior notes written by myself or my colleagues may have been "brought forward" into today's note. My signature on this note, however, is an attestation that I personally performed the exam, history, and/or decision-making noted today, and, unless otherwise indicated, the interactions with patient, family, and staff as well as the review of records all occurred today. I also attest that the listed assessment and stated plan reflect my best clinical judgment today based on the combination of historical information, prior notes, and today's exam/ interactions. When time spent is documented, it refers only to time spent today by the signer, or if indicated, combined time spent today by collaborating physician/nurse practitioner. CORTNEY ARCEO Sep 12, 2016 15:46
--- NOTE | 2016-09-12 20:40 | HHI.PR ---
Subjective Remarks D/w DIRECTOR DANCE. Patient has been calm, alert most of the day, PO intake improved, was bathed and wash by family. Objective Vitals Vital Signs Date Time Temp Pulse Resp B/P Pulse Ox O2 Delivery O2 Flow Rate FiO2 09/12/16 16:25 98.6 77 18 114/57 97 09/12/16 14:39 71 09/12/16 12:32 97.3 79 18 148/60 96 09/12/16 10:04 95 Room Air 09/12/16 08:33 95 09/12/16 08:01 97.6 83 18 137/67 95 09/12/16 04:00 97.7 88 20 103/57 93 09/12/16 00:00 98.8 85 18 127/76 94 09/11/16 21:43 97 Nasal Cannula 21 09/11/16 21:00 Room Air I/O 09/11/16 09/11/16 09/11/16 09/12/16 09/12/16 09/12/16 07:00 15:00 23:00 07:00 15:00 23:00 Intake Total 120 ml 1409 ml 0 ml 120 ml Output Total 650 ml 0 ml Balance -530 ml 1409 ml 0 ml 120 ml Intake Oral 120 ml 0 ml 0 ml 120 ml IV Total 1409 ml Output Urine Total 650 ml 0 ml Bladder Scan Volume Amount 520 ml 520 ml # Voids 0 1 # Bowel Movements 1 0 0 0 Result Diagram: 09/10/16 0738 Objective Remarks GENERAL: Well-nourished, well-developed female patient. SKIN: Warm and dry. HEAD: Normocephalic. EYES: No scleral icterus. No injection or drainage. NECK: Supple, trachea midline. No JVD or lymphadenopathy. CARDIOVASCULAR: Regular rate and rhythm without murmurs, gallops, or rubs. RESPIRATORY: Breath sounds equal and clear to auscultation bilaterally. No accessory muscle use. GASTROINTESTINAL: Bowel sounds present. Abdomen soft, non-tender, nondistended. EXTREMITIES: Left lower extremity not examined today. Neuro: currently sleeping. Procedures 08/08/2016 PROCEDURE 1. Selective right lower extremity arteriogram. 2. Balloon angioplasty with a 4 mm x 2200 mm and then a 5 x 200 mm Medtronic angioplasty balloon of the right superficial femoral and proximal popliteal artery. 07/31/2016 Excision and debridement of both legs, extensive necrotic wounds approximately 30 x 25 cm area on each side, total 1000 to 1100 cm square, down to the subcutaneous tissue and tendon on the left side. 09/03/2016 Right [id number] amputation A/P Problem List: (1) Ischemic ulcer of right ankle ICD Code: L97.319 Status: Acute (2) Neuropathic pain ICD Code: M79.2 Status: Chronic (3) Delirium ICD Code: R41.0 Status: Acute (4) Chronic kidney disease (CKD) ICD Code: N18.9 Status: Chronic (5) Peripheral vascular occlusive disease ICD Code: I73.9 Status: Chronic (6) Anemia ICD Code: D64.9 Status: Chronic (7) Pain ICD Code: R52 Status: Chronic (8) PVD (peripheral vascular disease) ICD Code: I73.9 Status: Chronic (9) Cardiomyopathy ICD Code: I42.9 Status: Chronic (10) Diabetes mellitus with peripheral angiopathy with gangrene ICD Code: E11.52 Status: Acute (11) Hypoalbuminemia ICD Code: E88.09 Status: Acute (12) Anoxic encephalopathy ICD Code: G93.1 Status: Acute (13) DM type 2, uncontrolled, with neuropathy ICD Code: E11.40 Status: Chronic (14) CHF (congestive heart failure) ICD Code: I50.9 Status: Chronic (15) JAYLAN (acute kidney injury) ICD Code: N17.9 Status: Resolved (16) Severe protein-calorie malnutrition ICD Code: E43 Status: Acute (17) Hypertension ICD Code: I10 Status: Chronic (18) Anemia in chronic illness ICD Code: D63.8 Status: Acute Assessment and Plan 61 yo f -s/p right AKA for nonhealing ischemic wound. Stump well healing. management per Dr. Taylor. - Peripheral vascular disease with nonhealing left lower extremity wound with necrotic tendon, several necrotic toes-status post consultation with 3 vascular surgeons, plastic surgery, to naval aircre[employer]. family declines amputation. topical hyperbaric oxygen therapy (numo bag) purchased by family. this therapy can be given in hospital or at home, but is not FDA approved. [facility] due to the family requesting numo bag, as well as the issue with wound healing. amputation has been recommended, however some conflicting opinions. - Severe neuropathic pain - continue Neurontin. Morphine 2 mg intramuscular when necessary - she appears to be tolerating this. -Severe acute metabolic encephalopathy- continues to improve -exhaustive workup has been performed including initial LP which showed pleocytosis with lymphocyte predominance, see previous notes - Appreciate input from neurology, hematology, palliative care - EEG 09/04 -moderate encephalopathy. -MRI brain with and without contrast 09/07 negative -2nd neuro opinion (requested per family) with Dr. Bauer appreciated, family declines repeat LP as patient improving - C. Diff colitis, s/p treatment with vancomycin. ID/Dr. Quispe. - UTI - Microbiology grew ESBL -now treated. -Diabetes mellitus type II, currently with good Accu-Chek reads- Coverage with SSI. Monitor Accu-Cheks. Monitor for hypoglycemia. -Hypothyroidism - TSH on 09/08 22, Free T3 low at 0.72, free T4 nml. increase levothyroxine 150 g ->175. repeat TSH in several weeks. - Hypertension - Cardiomyopathy - EF 3540% -Continue carvedilol low dose. Start JOYCE inhibitor if blood pressure will tolerate and renal function remained stable. currently normotensive. S/p cardiology eval. -Acute kidney injury, resolved. -Chronic kidney disease stage III. Improved, creatinine stable around 1. repeat labs in a.m. -Severe malnutrition - dietary consult noted. Prealbumin is 7. Hopefully patient's by mouth intake will improve as she improves mental status. Consulted GI for eval for possible PEG tube. Started Marinol to stimulate appetite. Daughter Blanche wants to give the patient several days for improvement prior to considering PEG tube. Continue ensure, add multivitamin. - Abnormal uterine appearance - seen on abdominal and pelvis CT -pelvic ultrasound showing prominent endometrium, tumor markers negative, no history of vaginal bleeding -Heme on consult was requested per oncology service. Consider endometrial biopsy as outpatient. MRI abdomen canceled per family (did not want her sedated) . Anemia of chronic illness - stable, monitor transfuse prn Hb<7. repeat CBC in a.m. Full code. Heparin SQ. Discharge Planning TBD Problem Qualifiers (1) Ischemic ulcer of right ankle: Qualified Code: L97.313 - Ischemic ulcer of right ankle, with necrosis of muscle (2) Diabetes mellitus with peripheral angiopathy with gangrene: Qualified Code: E11.52 - Type 2 diabetes mellitus with diabetic peripheral angiopathy and gangrene, with long-term current use of insulin (3) CHF (congestive heart failure): Maeve Elliott MD Sep 12, 2016 20:40
[2016-09-12] MEDS: MELATONIN 5 MG TAB PO SCH (21:00)
[2016-09-12] MEDS: ATORVASTATIN 80 MG TAB PO SCH (21:07)
[2016-09-13] VITALS (8 sets, daily range): BP systolic 116–126; BP diastolic 55–70; PULSE 80–94; RESP 17–19; TEMP 98–98.8; O2SAT 95–98
[2016-09-13] MEDS: HYDROCORTISONE 1% CREAM 30 GM TOPICAL SCH ×3 (03:03→21:37)
[2016-09-13] MEDS: INSULIN ASPART SUPPLEMENTAL SCALE SQ SCH ×4 (06:19→21:00)
[2016-09-13] MEDS: LEVOTHYROXINE SODIUM 150 MCG TAB PO SCH (06:19)
[2016-09-13] MEDS: LEVOTHYROXINE SODIUM 25 MCG TAB PO SCH (06:19)
[2016-09-13 07:22] LABS: AUTOMATED NEUTROPHIL # 6.9 TH/MM3 (1.8-7.7); BASOPHIL % 0.5 % (0.0-2.0); EOSINOPHIL # 0.3 TH/MM3 (0-0.4); EOSINOPHIL % 2.8 % (0.0-4.0); HEMATOCRIT 26.6 % (35.0-46.0); LYMPH % 21.2 % (9.0-44.0); LYMPHOCYTE # 2.2 TH/MM3 (1.0-4.8); MEAN CELL VOLUME 77.1 FL (80.0-100.0); MEAN CORPUSCULAR HEMOGLOBIN 24.3 PG (27.0-34.0); MEAN CORPUSCULAR HGB CONC 31.5 % (32.0-36.0); MONO % 8.5 % (0.0-8.0); PLATELET COUNT 394 TH/MM3 (150-450); RED BLOOD COUNT 3.45 MIL/MM3 (4.00-5.30); RED CELL DISTRIBUTION WIDTH 18.6 % (11.6-17.2); WHITE BLOOD COUNT 10.3 TH/MM3 (4.0-11.0)
[2016-09-13 07:26] LABS: HEMO FLAGS AUTO DIFF
[2016-09-13 08:14] LABS: ALKALINE PHOSPHATASE 150 U/L (45-117); ALT (GPT) 48 U/L (10-53); ANION GAP 8 MEQ/L (5-15); AST (GOT) 84 U/L (15-37); BICARBONATE 26.5 MEQ/L (21.0-32.0); BLOOD UREA NITROGEN 6 MG/DL (7-18); CHLORIDE 104 MEQ/L (98-107); GLOMERULAR FILTRATION RATE 105 ML/MIN (>89); POTASSIUM 3.6 MEQ/L (3.5-5.1); SODIUM (NA) 138 MEQ/L (136-145); TOTAL BILIRUBIN ADULT 0.4 MG/DL (0.2-1.0)
[2016-09-13 09:33] LABS: PLATELET ESTIMATE SMEAR NORMAL (NORMAL); PLATELET MORPHOLOGY NORMAL (NORMAL); SCAN/DIFF AUTO DIFF CONFIRMED
[2016-09-13] MEDS: THIAMINE INJ 100 MG in SODIUM CHLORIDE 0.9% INJ 100 ML IV SCH (09:59)
[2016-09-13] MEDS: SODIUM CHLORIDE 0.9% FLUSH 5 ML FLUSH IV FLUSH SCH ×2 (09:59→21:00)
[2016-09-13] MEDS: LACTOBACILLUS ACIDOPHILUS TAB PO SCH ×3 (10:00→16:32)
[2016-09-13] MEDS: LIOTHYRONINE SODIUM 5 MCG TAB PO SCH (10:00)
[2016-09-13] MEDS: ASPIRIN EC 81 MG TABEC PO SCH (10:00)
[2016-09-13] MEDS: CARVEDILOL 3.125 MG TAB PO SCH ×2 (10:00→21:31)
[2016-09-13] MEDS: MUPIROCIN 2% OINT 22 GM TUBE TOPICAL SCH ×2 (10:01→21:37)
--- NOTE | 2016-09-13 11:49 | HHI.PR ---
Subjective Remarks looks and feels comfortable. pain is controlled. no fever. son at the bedside. Objective Vitals Vital Signs Date Time Temp Pulse Resp B/P Pulse Ox O2 Delivery O2 Flow Rate FiO2 09/13/16 10:38 80 09/13/16 10:38 Room Air 09/13/16 08:02 98.6 86 19 123/59 97 09/13/16 04:00 98.8 84 19 126/57 95 09/13/16 00:00 98.6 89 17 116/55 95 09/12/16 20:00 Room Air 09/12/16 20:00 83 09/12/16 20:00 97.3 82 18 136/61 94 09/12/16 16:25 98.6 77 18 114/57 97 09/12/16 14:39 71 09/12/16 12:32 97.3 79 18 148/60 96 I/O 09/12/16 09/12/16 09/12/16 09/13/16 09/13/16 09/13/16 07:00 15:00 23:00 07:00 15:00 23:00 Intake Total 0 ml 120 ml 698 ml 120 ml Output Total 200 ml Balance 0 ml 120 ml 498 ml 120 ml Intake Oral 0 ml 120 ml 480 ml 120 ml IV Total 218 ml Output Urine Total 200 ml # Voids 0 1 1 # Bowel Movements 0 0 0 Result Diagram: 09/13/16 0632 09/13/16 0632 Imaging Last Impressions Brain MRI 09/07/16 0000 Signed Impressions: Service Date/Time: Wednesday, September 07, 2016 20:26 - CONCLUSION: 1. No acute findings. No significant change from August 25, 2016. No abnormal enhancement post contrast. Mild chronic white matter ischemic changes. Rolando Sharif MD Pelvis Ultrasound 09/05/16 0000 Signed Impressions: Service Date/Time: Monday, September 05, 2016 19:53 - CONCLUSION: Enlarged uterus with prominence of the endometrium. Alfredo Etienne MD Chest CT 09/05/16 0000 Signed Impressions: Service Date/Time: Monday, September 05, 2016 08:47 - CONCLUSION: 1. No worrisome masses. Please see above. 2. Dilatation of the aorta 4.3 cm. 3. Atherosclerosis. Addy Hillman MD Abdomen/Pelvis CT 09/05/16 0000 Signed Impressions: Service Date/Time: Monday, September 05, 2016 08:47 - CONCLUSION: 1. Fat containing umbilical hernias. 2. Extensive atherosclerosis. 3. Indeterminate low-density lesion in the liver, incompletely characterized without contrast. 4. Basilar air space disease and atelectasis with small pericardial effusion. 5. Abnormal appearance of the uterus as described above. A pelvic ultrasound will be helpful for further assessment on a nonemergent outpatient basis. Addy Hillman MD Lumbar Puncture Fluoroscopy 08/29/16 0000 Signed Impressions: Service Date/Time: Monday, August 29, 2016 16:39 - CONCLUSION: Uncomplicated fluoroscopically guided lumbar puncture with pressures as above. Alfredo Etienne MD Chest X-Ray 08/19/16 0000 Signed Impressions: Service Date/Time: Friday, August 19, 2016 18:46 - CONCLUSION: 1. Bibasilar streakiness consistent with atelectasis and/or infiltrates. 2. Cardiomegaly. 3. Poor inspiratory result. Shamar Banuelos MD Upper Extremity Ultrasound 07/28/16 0000 Signed Impressions: Service Date/Time: Thursday, July 28, 2016 14:34 - CONCLUSION: No DVT is identified within the right upper extremity. Alfredo Eng MD Head CT 07/19/16 0000 Signed Impressions: Service Date/Time: Tuesday, July 19, 2016 09:58 - CONCLUSION: No acute intracranial findings. João Otoole MD Foot X-Ray 07/16/16 0000 Signed Impressions: Service Date/Time: Saturday, July 16, 2016 17:34 - CONCLUSION: 1. Nonspecific soft tissue swelling. No acute bone destruction demonstrated. 2. Mild talonavicular and navicular/cuneiform degenerative changes. 3. Second through fifth hammertoe. 4. Moderate-sized heel spur. Alfredo Sneed MD Objective Remarks GENERAL: in no apparent distress. CARDIOVASCULAR: Regular rate and irregular rhythm without murmurs, gallops, or rubs. RESPIRATORY: Clear to auscultation. Breath sounds equal bilaterally. No wheezes , rales, or rhonchi. GASTROINTESTINAL: Abdomen soft, non-tender, nondistended. Normal, active bowel sounds MUSCULOSKELETAL: both legs covered with clean dressing. NEURO: awake and alert Procedures 08/08/2016 PROCEDURE 1. Selective right lower extremity arteriogram. 2. Balloon angioplasty with a 4 mm x 2200 mm and then a 5 x 200 mm [employer] angioplasty balloon of the right superficial femoral and proximal popliteal artery. 07/31/2016 Excision and debridement of both legs, extensive necrotic wounds approximately 30 x 25 cm area on each side, total 1000 to 1100 cm square, down to the subcutaneous tissue and tendon on the left side. 09/03/2016 Right [id number] amputation Medications and IVs Current Medications Sodium Chloride (NS 1000 ml Inj) 1,000 ml @ 84 mls/hr [id number] IV Last administered on 08/05/16 16:12; Start 07/15/16 at 19:42; Stop 08/18/16 at 15:34 ; Status DC IV Flush (NS Flush) 2 ml UNSCH PRN IV FLUSH FLUSH AFTER USING IV ACCESS Last administered on 08/12/16 05:30; Start 07/15/16 at 19:45 IV Flush (NS Flush) 2 ml BID IV FLUSH Last administered on 09/11/16 20:39; Start 07/15/16 at 21:00 Fentanyl Citrate (fentaNYL INJ) 50 mcg Q3H PRN IV PUSH Pain scale 7-10 &/or sedation Last administered on 07/15/16 21:44; Start 07/15/16 at 19:45; Stop at 11:51; Status DC Famotidine (Pepcid Inj) 20 mg Q12HR IV PUSH Last administered on 07/15/16 20: 19; Start 07/15/16 at 21:00; Stop 07/15/16 at 21:24; Status DC Ondansetron HCl (Zofran Inj) 4 mg Q6H PRN IV NAUSEA OR VOMITING Last administered on 07/31/16 13:23; Start 07/15/16 at 19:45; Stop 08/12/16 at 20:17 ; Status DC Metoclopramide HCl (Reglan Inj) 5 mg Q6H PRN IV NAUSEA OR VOMITING Last administered on 09/06/16 21:32; Start 07/15/16 at 19:45 Docusate Sodium (Colace) 100 mg BID PO Last administered on 08/07/16 21:00; Start 07/15/16 at 21:00; Stop 08/08/16 at 22:08; Status DC Albuterol/ Ipratropium (Duoneb Neb) 1 ampule Q2HR NEB PRN INH WHEEZING; Start 07/15/16 at 19:45 Heparin Sodium (Porcine) (Heparin Inj) 5,000 units Q8HR SQ Last administered on 08/28/16 12:46; Start 07/15/16 at 22:00; Stop 09/03/16 at 23:47; Status DC Miscellaneous Information 1 [id number] XX Last administered on 07/15/16 19:45; Start 07/15/16 at 19:45; Stop 09/04/16 at 03:06; Status DC Chlorhexidine Gluconate (Chlorhexidine 2% Cloth) Taper DAILY@04 TOP Last administered on 07/17/16 03:11; Start 07/16/16 at 04:00; Stop 09/04/16 at 03:06 ; Status DC Chlorhexidine Gluconate (Chlorhexidine 2% Cloth) 3 pack UNSCH PRN TOP HYGIENIC CARE; Start 07/15/16 at 19:45; Stop 09/04/16 at 03:06; Status DC Acetaminophen (Ofirmev Inj) 1,000 mg Q6H PRN IV PAIN SCALE 1 TO 6; Start at 20:00; Stop 07/18/16 at 11:51; Status DC Ketorolac Tromethamine (Toradol Inj) 30 mg Q6H PRN IM PAIN SCALE 1 TO 7; Start 07/15/16 at 20:00; Stop 07/15/16 at 20:10; Status DC Ketorolac Tromethamine (Toradol Inj) 30 mg Q6H PRN IV PUSH PAIN 1-6 Last administered on 07/15/16 20:34; Start 07/15/16 at 20:15; Stop 07/18/16 at 11:51 ; Status DC Carvedilol (Coreg) 25 mg BID PO Last administered on 08/17/16 10:24; Start at 21:00; Stop 08/17/16 at 16:06; Status DC Fluconazole (Diflucan) 75 mg DAILY@17 PO Last administered on 07/16/16 17:03; Start 07/16/16 at 17:00; Stop 07/17/16 at 08:09; Status DC Isosorbide Dinitrate (Isordil) 5 mg Q8HR PO Last administered on 09/02/16 05: 38; Start 07/15/16 at 22:00; Stop 09/03/16 at 23:47; Status DC Lactobacillus Acidophilus (Lactinex) 1 tab TID PO Last administered on 08:32; Start 07/16/16 at 09:00; Stop 08/25/16 at 08:59; Status DC Levofloxacin (Levaquin) 250 mg Q48H PO Last administered on 07/21/16 21:05; Start 07/15/16 at 22:00; Stop 07/23/16 at 16:37; Status DC Levothyroxine Sodium (Synthroid) 150 mcg DAILY@06 PO Last administered on 05:47; Start 07/16/16 at 06:00; Stop 09/09/16 at 17:57; Status DC Liothyronine Sodium (Cytomel) 5 mcg DAILY PO Last administered on 09/13/16 10: 00; Start 07/16/16 at 09:00 Non-Formulary Medication 325 mg DAILY PO ; Start 07/16/16 at 09:00; Status UNV Miscellaneous (Pill Splitter) 1 ea UNSCH PRN OTHER SEE LABEL COMMENTS; Start at 21:30 Famotidine (Pepcid Inj) 10 mg Q12HR IV PUSH Last administered on 07/17/16 07: 29; Start 07/16/16 at 09:00; Stop 07/18/16 at 10:59; Status DC Aspirin (Ecotrin Ec) 325 mg DAILY PO Last administered on 08/25/16 08:30; Start 07/16/16 at 09:00; Stop 08/25/16 at 16:10; Status DC Etomidate (Amidate Inj) 20 mg STK-MED ONCE .ROUTE ; Start 07/16/16 at 17:07; Stop 07/16/16 at 17:08; Status DC Famotidine (Pepcid Inj) 20 mg Q12HR IV PUSH Last administered on 08/12/16 09: 05; Start 07/18/16 at 21:00; Stop 08/12/16 at 20:17; Status DC Hydromorphone HCl (Dilaudid Pf Inj) 0.5 mg ONCE ONCE IV PUSH Last administered on 08/04/16 18:00; Start 07/18/16 at 11:45; Stop 07/18/16 at 11:46 ; Status DC Hydromorphone HCl (Dilaudid Pf Inj) 0.5 mg Q4H PRN IV PUSH breakthrough pain / dresing lori Last administered on 08/31/16 05:32; Start 07/18/16 at 11:45; Stop 09/03/16 at 23:47; Status DC Acetaminophen/ Hydrocodone Bitart (Elmer 5-325 Mg) 1 tab Q6H PRN PO pain 2-10 Last administered on 08/12/16 09:04; Start 07/18/16 at 11:45; Stop 08/12/16 at 20:17; Status DC Diphenhydramine HCl 50 mg 50 mg STK-MED ONCE .ROUTE ; Start 07/19/16 at 11:20; Stop 07/19/16 at 11:21; Status DC Levetriacetam/ Sodium Chloride (Keppra Inj/NS Inj) 105 ml @ 420 mls/hr Q12HR IV Last administered on 07/20/16 08:19; Start 07/19/16 at 13:00; Stop at 16:25; Status DC Haloperidol Lactate (Haldol Inj) 2 mg Q6H PRN IM aggittation Last administered on 07/30/16 01:29; Start 07/19/16 at 12:30; Stop 09/03/16 at 23:47; Status DC Lorazepam 1 mg 1 mg Q6H PRN IV PUSH seizures/agiatation Last administered on 06:09; Start 07/19/16 at 12:30; Stop 09/03/16 at 23:47; Status DC Valproate Sodium 500 mg/Sodium Chloride 105 ml @ 105 mls/hr Q8H IV Last administered on 07/25/16 09:26; Start 07/20/16 at 18:00; Stop 07/25/16 at 09:54; Status DC Cefepime HCl/ Sodium Chloride (Maxipime Inj/NS Inj) 100 ml @ 200 mls/hr Q12H IV Last administered on 07/27/16 02:43; Start 07/21/16 at 15:00; Stop 07/27/16 at 09:00; Status DC Dextrose (D50w (Vial) Inj) 25 ml UNSCH PRN IV PUSH HYPOGLYCEMIA-SEE COMMENTS; Start 07/23/16 at 11:00 Glucagon (Glucagon Inj) 1 mg UNSCH PRN OTHER HYPOGLYCEMIA-SEE COMMENTS; Start 07/23/16 at 11:00 Insulin Aspart (NovoLOG SUPPLEMENTAL SCALE) 1 ACHS SLIDING SCALE SQ Last administered on 09/10/16 21:48; Start 07/23/16 at 11:00 Potassium Chloride (KCl) 40 meq ONCE ONCE PO Last administered on 07/24/16 13: 00; Start 07/24/16 at 13:00; Stop 07/24/16 at 13:01; Status DC Valproic Acid (Depakene) 500 mg Q8HR PO Last administered on 07/26/16 14:52; Start 07/25/16 at 15:00; Stop 07/26/16 at 17:39; Status DC Potassium Chloride (KCl) 30 meq ONCE ONCE PO Last administered on 07/26/16 19: 30; Start 07/26/16 at 16:30; Stop 07/26/16 at 16:36; Status DC Potassium Chloride (KCl) 30 meq ONCE ONCE PO Last administered on 07/26/16 22: 16; Start 07/26/16 at 20:00; Stop 07/26/16 at 20:01; Status DC Valproic Acid (Depakene) 250 mg Q12HR PO Last administered on 09/04/16 09:07; Start 07/27/16 at 09:00; Stop 09/04/16 at 16:16; Status DC Hydromorphone HCl (Dilaudid Pf Inj) 0.5 mg ONCE ONCE IV PUSH Last administered on 07/27/16 10:42; Start 07/27/16 at 10:45; Stop 07/27/16 at 10:46; Status DC Valsartan (Diovan) 80 mg HS PO Last administered on 08/19/16 21:58; Start 07/27 at 21:00; Stop 08/20/16 at 18:58; Status DC Enalaprilat (Vasotec Inj) 1.25 mg Q8H PRN IV PUSH SBP >180 OR DBP >100; Start 07/28/16 at 16:00 Fluconazole 100 mg 100 mg DAILY PO Last administered on 08/05/16 11:34; Start 07/30/16 at 09:45; Stop 08/05/16 at 16:53; Status DC Ceftriaxone Sodium/Sodium Chloride (Rocephin Inj/NS Inj) 100 ml @ 200 mls/hr Q24H IV Last administered on 08/01/16 09:45; Start 07/30/16 at 10:00; Stop 03/10 at 11:59; Status DC Potassium Chloride (KCl) 30 meq ONCE ONCE PO Last administered on 07/30/16 12: 12; Start 07/30/16 at 09:45; Stop 07/30/16 at 09:53; Status DC Potassium Chloride (KCl) 30 meq ONCE ONCE PO Last administered on 07/30/16 14: 00; Start 07/30/16 at 14:00; Stop 07/30/16 at 14:01; Status DC Insulin Detemir (Levemir Inj) 5 units HS SQ Last administered on 09/03/16 20: 17; Start 07/30/16 at 21:00; Status Hold Melatonin (Melatonin) 5 mg HS PO Last administered on 09/11/16 20:39; Start at 21:00 Bupivacaine HCl (Marcaine Pf 0.5% Inj) 30 ml STK-MED ONCE .ROUTE ; Start at 10:12; Stop 07/31/16 at 10:13; Status DC Bupivacaine HCl/ Epinephrine Bitart (Sensorcaine-Epi 0.5% 50 ml Inj) 50 ml STK- MED ONCE .ROUTE ; Start 07/31/16 at 10:12; Stop 07/31/16 at 10:13; Status DC Bacitracin (Baciguent Oint) 15 applic STK-MED ONCE .ROUTE ; Start 07/31/16 at 10: 12; Stop 07/31/16 at 10:13; Status DC Dexamethasone Sodium Phosphate (Decadron Inj) 4 mg STK-MED ONCE .ROUTE Last administered on 07/31/16 10:24; Start 07/31/16 at 10:22; Stop 07/31/16 at 10:23; Status DC Famotidine (Pepcid Inj) 20 mg STK-MED ONCE IV PUSH Last administered on t 10:23; Start 07/31/16 at 10:23; Stop 07/31/16 at 10:27; Status DC Fentanyl Citrate 500 mcg 500 mcg STK-MED ONCE .ROUTE ; Start 07/31/16 at 12:13; Stop 07/31/16 at 12:14; Status DC Gentamicin Sulfate/Sodium Chloride (Gentamicin Inj/ NS Irr Btl) 1,005 ml @ 0 mls/hr UNSCH PRN IRRIGATION DRESSING CHANGES; Start 07/31/16 at 13:30 Miscellaneous Information ALL NURSING DEPARTME... UNSCH PRN XX SEE LABEL COMMENTS; Start 07/31/16 at 13:30; Stop 08/01/16 at 13:29; Status DC Propofol (Diprivan 200 Mg/20 ml Inj) 200 mg STK-MED ONCE IV ; Start 07/31/16 at 12:42; Stop 08/04/16 at 12:43; Status DC Ephedrine Sulfate (ePHEDrine/NS 25 MG/5 ML SYR) 25 mg STK-MED ONCE IV ; Start at 12:42; Stop 08/04/16 at 12:43; Status DC Phenylephrine HCl (Neosynephrine/ NS 1000 Mcg/10ml Syr) 1,000 mcg STK-MED ONCE IV ; Start 07/31/16 at 12:42; Stop 08/04/16 at 12:43; Status DC Ondansetron HCl (Zofran Inj) 4 mg STK-MED ONCE IV PUSH ; Start 07/31/16 at 12:42 ; Stop 08/04/16 at 12:43; Status DC Prednisone (Deltasone) 50 mg Q6H PO Last administered on 08/08/16 04:00; Start 08/07/16 at 16:00; Stop 08/08/16 at 04:01; Status DC Diphenhydramine HCl (Benadryl Inj) 50 mg ONCE ONCE IV ; Start 08/07/16 at 16:00 ; Stop 08/07/16 at 16:01; Status DC Midazolam HCl (Versed Inj) 2 mg STK-MED ONCE .ROUTE ; Start 08/08/16 at 08:24; Stop 08/08/16 at 08:25; Status DC Diphenhydramine HCl (Benadryl Inj) 50 mg STK-MED ONCE .ROUTE ; Start 08/08/16 at 08:24; Stop 08/08/16 at 08:25; Status DC Hydrocortisone Sodium Succinate (SoluCORTEF INJ) 100 mg STK-MED ONCE .ROUTE Last administered on 08/08/16 08:52; Start 08/08/16 at 08:50; Stop 08/08/16 at 08:51; Status DC Ketamine HCl (Ketalar Inj) 500 mg STK-MED ONCE .ROUTE ; Start 08/08/16 at 08:59 ; Stop 08/08/16 at 09:00; Status DC Iohexol 100 ml 100 ml STK-MED ONCE OTHER Last administered on 08/08/16 08:50; Start 08/08/16 at 08:50; Stop 08/08/16 at 09:45; Status DC Nitroglycerin/ Dextrose (Nitroglycerin-Dextrose Inj) 250 ml @ As Directed STK- MED ONCE .ROUTE ; Start 08/08/16 at 09:57; Stop 08/08/16 at 09:58; Status DC Iohexol (Omnipaque 300 Inj) 50 ml STK-MED ONCE OTHER Last administered on 10:10; Start 08/08/16 at 10:10; Stop 08/08/16 at 10:31; Status DC Midazolam HCl (Versed Inj) 2 mg STK-MED ONCE .ROUTE ; Start 08/08/16 at 11:01; Stop 08/08/16 at 11:02; Status DC Fentanyl Citrate (fentaNYL INJ) 250 mcg STK-MED ONCE .ROUTE ; Start 08/08/16 at 11:02; Stop 08/08/16 at 11:03; Status DC Fentanyl Citrate (fentaNYL INJ) 100 mcg STK-MED ONCE .ROUTE ; Start 08/08/16 at 11:02; Stop 08/08/16 at 11:03; Status DC Morphine Sulfate (Morphine Inj) 4 mg STK-MED ONCE .ROUTE ; Start 08/08/16 at 11: 03; Stop 08/08/16 at 11:04; Status DC Morphine Sulfate (*morphine INJ PERIprocedure ONLY) 8 mg STK-MED ONCE .ROUTE Last administered on 08/08/16 11:17; Start 08/08/16 at 11:17; Stop 08/08/16 at 11:18; Status DC Miscellaneous Information ALL NURSING DEPARTME... UNSCH PRN XX SEE LABEL COMMENTS; Start 08/08/16 at 12:30; Stop 08/09/16 at 12:29; Status DC Lorazepam (Ativan) 0.25 mg Q12H PRN PO ANXIETY; Start 08/09/16 at 14:00; Stop 08/11/16 at 14:33; Status DC Propofol (Diprivan 200 Mg/20 ml Inj) 800 mg STK-MED ONCE IV ; Start 08/08/16 at 12:00; Stop 08/11/16 at 12:57; Status DC Heparin Sodium (Porcine) (Heparin Inj) 5,000 units STK-MED ONCE OTHER ; Start at 12:00; Stop 08/11/16 at 13:02; Status DC Potassium Chloride (KCl) 10 meq Q8HR PO Last administered on 08/16/16 06:08; Start 08/11/16 at 14:00; Stop 08/16/16 at 13:59; Status DC Clonazepam (KlonoPIN) 0.5 mg Q8HR PO Last administered on 08/12/16 05:29; Start 08/11/16 at 14:45; Stop 08/12/16 at 12:49; Status DC Diphenhydramine HCl (Benadryl) 25 mg ONCE ONCE PO Last administered on 17:50; Start 08/11/16 at 14:45; Stop 08/11/16 at 15:05; Status DC Clonazepam (KlonoPIN) 0.5 mg Q8H PRN PO ANXIETY Last administered on 08/30/16 22:50; Start 08/12/16 at 12:45; Stop 09/03/16 at 23:47; Status DC Gabapentin (Neurontin) 200 mg TID PO Last administered on 08/12/16 14:59; Start 08/12/16 at 13:00; Stop 08/14/16 at 16:07; Status DC Methadone HCl (Dolophine) 2.5 mg Q12HR PO Last administered on 09/01/16 21:49 ; Start 08/12/16 at 21:00; Stop 09/03/16 at 23:47; Status DC Doxycycline Hyclate (Vibratab) 100 mg Q12HR PO Last administered on 08/16/16 22:41; Start 08/12/16 at 22:45; Stop 08/17/16 at 08:21; Status DC Quetiapine Fumarate (SEROquel) 12.5 mg ONCE ONCE PO Last administered on 10:45; Start 08/13/16 at 10:45; Stop 08/13/16 at 10:50; Status DC Quetiapine Fumarate (SEROquel) 12.5 mg BID PO Last administered on 08/13/16 20 :32; Start 08/13/16 at 21:00; Stop 08/14/16 at 12:41; Status DC Gabapentin (Neurontin) 300 mg ONCE ONCE PO Last administered on 08/13/16 11: 00; Start 08/13/16 at 11:00; Stop 08/13/16 at 11:09; Status DC Acetaminophen (Tylenol) 500 mg Q6H PRN PO FEVER >100.4 Last administered on 17:12; Start 08/13/16 at 17:15 Quetiapine Fumarate (SEROquel) 6.25 mg HS PO Last administered on 09/01/16 21: 00; Start 08/14/16 at 21:00; Stop 09/03/16 at 23:47; Status DC Quetiapine Fumarate (SEROquel) 6.25 mg DAILY PRN PO agitated delirium Last administered on 09/01/16 12:37; Start 08/14/16 at 12:45; Stop 09/03/16 at 23:47 ; Status DC Gabapentin (Neurontin) 300 mg TID PO Last administered on 08/15/16 13:25; Start 08/15/16 at 09:00; Stop 08/15/16 at 14:20; Status DC Gabapentin (Neurontin) 400 mg ONCE ONCE PO ; Start 08/14/16 at 16:15; Stop at 16:15; Status DC Gabapentin (Neurontin) 200 mg ONCE ONCE PO Last administered on 08/14/16 17: 00; Start 08/14/16 at 16:30; Stop 08/14/16 at 16:33; Status DC Gabapentin (Neurontin) 400 mg TID PO Last administered on 08/18/16 12:34; Start 08/15/16 at 18:00; Stop 08/18/16 at 13:52; Status DC Mupirocin (Bactroban 2% Oint) 1 applic Q12HR TOPICAL Last administered on 21:00; Start 08/15/16 at 15:00 Hydrocortisone 1 applic 1 applic Q8H TOPICAL Last administered on 09/13/16 03: 03; Start 08/15/16 at 20:00 Levofloxacin/ Dextrose (Levaquin 750 Mg Premix Inj) 150 ml @ 100 mls/hr Q24H IV Last administered on 08/16/16 09:41; Start 08/16/16 at 08:00; Stop at 08:21; Status DC Lactobacillus Acidophilus 1 tab 1 tab TID PO Last administered on 09/11/16 17: 39; Start 08/16/16 at 09:00 Vancomycin HCl 1750 mg/Sodium Chloride 517.5 ml @ 258.75 mls/ hr ONCE ONCE IV Last administered on 08/17/16 10:21; Start 08/17/16 at 10:00; Stop 08/17/16 at 11:59; Status DC Pharmacy Profile Note 0 ml @ 0 mls/hr UNSCH OTHER ; Start 08/17/16 at 08:15; Stop 08/18/16 at 16:18; Status DC Piperacillin Sod/ Tazobactam Sod 50 ml @ 100 mls/hr Q6H IV Last administered on 08/18/16 09:15; Start 08/17/16 at 09:00; Stop 08/18/16 at 13:02; Status DC Sodium Chloride 1,000 ml @ 999 mls/hr BOLUS ONCE IV Last administered on 08/17 08:30; Start 08/17/16 at 08:30; Stop 08/17/16 at 09:30; Status DC Sodium Chloride 1,000 ml @ 200 mls/hr Q5H IV ; Start 08/17/16 at 09:00; Stop at 18:59; Status DC Vancomycin HCl/ Sodium Chloride (Vancomycin Inj/ NS 250 ml Inj) 250 ml @ 250 mls/hr Q12H IV Last administered on 08/18/16 12:33; Start 08/17/16 at 22:00; Stop 08/18/16 at 16:31; Status DC Miscellaneous Information SPECIFIC LAB TO BE ... ONCE ONCE XX ; Start at 21:45; Stop 08/18/16 at 21:45; Status DC Olanzapine 10 mg 10 mg Q12H PRN IM acute agitation; Start 08/17/16 at 16:15; Stop 08/19/16 at 16:14; Status DC Levofloxacin/ Dextrose 150 ml @ 100 mls/hr Q24H IV ; Start 08/18/16 at 09:00; Stop 08/18/16 at 09:00; Status DC Levofloxacin/ Dextrose (Levaquin 750 Mg Premix Inj) 150 ml @ 100 mls/hr Q48H IV Last administered on 08/18/16 09:54; Start 08/18/16 at 09:00; Stop at 13:02; Status DC Miscellaneous Medication (ASP Crit: Doc ESBL, MDR A baumannii or P aer) 1 UNSCH X1 PRN XX PHARMACY DOCUMENTATION; Start 08/18/16 at 13:00; Stop 08/19/16 at 12: 59; Status DC Miscellaneous Medication 1 1 UNSCH X1 PRN XX PHARMACY DOCUMENTATION; Start at 13:00; Stop 08/19/16 at 12:59; Status DC Meropenem/Sodium Chloride (Merrem Inj/NS Inj) 100 ml @ 200 mls/hr Q8H IV Last administered on 08/21/16 06:14; Start 08/18/16 at 14:00; Stop 08/21/16 at 07:36 ; Status DC Gabapentin 600 mg 600 mg TID PO Last administered on 09/01/16 18:44; Start at 18:00; Stop 09/02/16 at 21:42; Status DC Sodium Chloride 1,000 ml @ 150 mls/hr Q6H40M IV Last administered on 17:44; Start 08/18/16 at 15:30; Stop 08/20/16 at 17:43; Status DC Sodium Chloride (NS 250 ml Inj) 250 ml @ 15 mls/hr ONCE ONCE IV Last administered on 08/19/16 06:34; Start 08/18/16 at 16:45; Stop 08/19/16 at 09:24 ; Status DC Acetaminophen (Tylenol) 650 mg Q4H PRN PO SEE LABEL COMMENTS; Start 08/18/16 at 16:45; Stop 08/18/16 at 20:46; Status DC Diphenhydramine HCl 25 mg 25 mg Q4H PRN PO SEE LABEL COMMENTS; Start 08/18/16 at 16:45; Stop 08/18/16 at 20:46; Status DC Linezolid (Zyvox 600 Mg Premix) 300 ml @ 300 mls/hr Q12H IV Last administered on 08/20/16 22:54; Start 08/19/16 at 08:00; Stop 08/21/16 at 07:36; Status DC Albumin Human (Albumin 25% Inj) 12.5 gm Q8H IV Last administered on 08/22/16 11:31; Start 08/20/16 at 20:00; Stop 08/22/16 at 13:51; Status DC Bumetanide (Bumex Inj) 1 mg Q8H IV PUSH Last administered on 08/22/16 12:44; Start 08/20/16 at 20:00; Stop 08/22/16 at 13:51; Status DC Metronidazole (Flagyl) 500 mg Q6HR PO ; Start 08/21/16 at 09:00; Stop 08/21/16 at 09:00; Status DC Vancomycin HCl (VANCOMYCIN for oral use only) 500 mg QID PO Last administered on 08/25/16 12:22; Start 08/21/16 at 09:00; Stop 08/25/16 at 13:53; Status DC Chlorothiazide Sodium (Diuril Inj) 250 mg ONCE ONCE IV Last administered on 21:03; Start 08/21/16 at 20:00; Stop 08/21/16 at 20:01; Status DC Potassium Phos/ Sodium Phos (K-Phos Neutral) 250 mg BID PO Last administered on 08/22/16 07:41; Start 08/21/16 at 21:00; Stop 08/22/16 at 20:59; Status DC Bumetanide (Bumetanide) 1 mg DAILY PO Last administered on 09/01/16 08:18; Start 08/23/16 at 09:00; Stop 09/03/16 at 23:47; Status DC Potassium Chloride (KCl) 20 meq ONCE ONCE PO Last administered on 08/22/16 14 :23; Start 08/22/16 at 14:00; Stop 08/22/16 at 14:01; Status DC Valsartan (Diovan) 40 mg DAILY PO Last administered on 09/01/16 08:18; Start 08/23/16 at 09:00; Stop 09/03/16 at 23:47; Status DC Vancomycin HCl (VANCOMYCIN for oral use only) 125 mg QID PO Last administered on 09/09/16 12:29; Start 08/25/16 at 18:00; Stop 09/09/16 at 17:59; Status DC Lorazepam (Ativan Inj) 0.5 mg UNSCH X1 IV Last administered on 08/25/16 18:32 ; Start 08/25/16 at 17:00; Stop 08/25/16 at 23:00; Status DC Diphenhydramine HCl (Benadryl) 25 mg ONCE ONCE PO Last administered on 22:15; Start 08/26/16 at 22:00; Stop 08/26/16 at 22:01; Status DC Lorazepam (Ativan Inj) 1 mg ONCE ONCE IV PUSH Last administered on 08/29/16 17 :10; Start 08/29/16 at 17:00; Stop 08/29/16 at 17:01; Status DC Hydromorphone HCl (Dilaudid Pf Inj) 0.5 mg ONCE ONCE IV PUSH Last administered on 08/29/16 17:11; Start 08/29/16 at 17:00; Stop 08/29/16 at 17:01; Status DC Olanzapine 5 mg 5 mg HS PO Last administered on 09/01/16 21:49; Start 08/30/16 at 21:15; Stop 09/03/16 at 23:47; Status DC Potassium Chloride/Lactated Ringer's (KCl Inj/Lr 1000 ml Inj) 1,010 ml @ 42 mls /hr Q24H IV Last administered on 09/10/16 07:14; Start 09/02/16 at 00:00; Stop 09/12/16 at 20:35; Status DC Vancomycin HCl (Vancomycin Inj) 1,000 mg STK-MED ONCE OTHER Last administered on 09/02/16 16:51; Start 09/02/16 at 16:51; Stop 09/02/16 at 16:59; Status DC Morphine Sulfate (Morphine Inj) 2 mg Q4HR PRN IM Pain 1-10 Last administered on 09/11/16 11:27; Start 09/03/16 at 16:15 Haloperidol Lactate (Haldol Inj) 1 mg Q6H PRN IM Psychosis, delirium Last administered on 09/04/16 09:17; Start 09/03/16 at 16:15; Status Hold Heparin Sodium (Porcine) (Heparin Inj) 5,000 units Q12HR SQ Last administered on 09/09/16 21:39; Start 09/04/16 at 09:00; Stop 09/10/16 at 07:38; Status DC Dronabinol (Marinol) 2.5 mg BID@11,16 PO Last administered on 09/10/16 13:54; Start 09/05/16 at 11:00 Dronabinol (Marinol) 2.5 mg ONCE ONCE PO Last administered on 09/04/16 21:51 ; Start 09/04/16 at 17:15; Stop 09/04/16 at 17:17; Status DC Aspirin (Ecotrin Ec) 81 mg DAILY PO Last administered on 09/13/16 10:00; Start 09/05/16 at 09:00 Carvedilol (Coreg) 3.125 mg Q12HR PO Last administered on 09/13/16 10:00; Start 09/05/16 at 09:00 Lorazepam (Ativan Inj) 0.5 mg [employer] ONCE IV PUSH ; Start 09/06/16 at 18:15; Stop 09/06/16 at 18:30; Status DC Atorvastatin Calcium (Lipitor) 80 mg HS PO Last administered on 09/12/16 21:07 ; Start 09/06/16 at 21:00 Lorazepam (Ativan Inj) 0.5 mg [employer] ONCE IV PUSH Last administered on 20:08; Start 09/07/16 at 20:15; Stop 09/07/16 at 20:16; Status DC Gadodiamide (Omniscan Pf Inj) 16 ml STK-MED ONCE IV Last administered on 20:45; Start 09/07/16 at 20:45; Stop 09/07/16 at 20:46; Status DC Lorazepam 0.5 mg 0.5 mg ONCE ONCE IV PUSH ; Start 09/08/16 at 13:00; Stop 09/08 at 13:01; Status DC Thiamine HCl/ Sodium Chloride (Thiamine Inj/NS Inj) 101 ml @ 101 mls/hr DAILY IV Last administered on 09/13/16 09:59; Start 09/09/16 at 10:00 Propofol (Diprivan 200 Mg/20 ml Inj) 200 mg STK-MED ONCE IV ; Start 09/02/16 at 12:00; Stop 09/09/16 at 13:30; Status DC Ephedrine Sulfate (ePHEDrine/NS 25 MG/5 ML SYR) 25 mg STK-MED ONCE IV ; Start at 12:00; Stop 09/09/16 at 13:30; Status DC Phenylephrine HCl (Neosynephrine/ NS 1000 Mcg/10ml Syr) 1,000 mcg STK-MED ONCE IV ; Start 09/02/16 at 12:00; Stop 09/09/16 at 13:30; Status DC Ondansetron HCl 4 mg 4 mg STK-MED ONCE IV PUSH ; Start 09/02/16 at 12:00; Stop 09/09/16 at 13:30; Status DC Sodium Chloride 250 ml @ As Directed STK-MED ONCE IV ; Start 09/02/16 at 12:00 ; Stop 09/09/16 at 13:30; Status DC Parenteral Electrolytes (Normosol R Inj) 1,000 ml @ As Directed STK-MED ONCE IV ; Start 09/02/16 at 12:00; Stop 09/09/16 at 13:30; Status DC Levothyroxine Sodium (Synthroid) 175 mcg DAILY@06 PO ; Start 09/10/16 at 06:00; Status UNV Levothyroxine Sodium (Synthroid) 150 mcg DAILY@06 PO Last administered on 06:19; Start 09/10/16 at 06:00 Levothyroxine Sodium (Synthroid) 25 mcg DAILY@06 PO Last administered on 06:19; Start 09/10/16 at 06:00 Fentanyl Citrate (fentaNYL INJ) 100 mcg STK-MED ONCE IV ; Start 09/02/16 at 12: 00; Stop 09/10/16 at 12:44; Status DC A/P Assessment and Plan A/P -s/p right AKA for nonhealing ischemic wound. Stump well healing. management per Dr. Taylor. - Peripheral vascular disease with nonhealing left lower extremity wound with necrotic tendon, several necrotic toes-status post consultation with 3 vascular surgeons, plastic surgery, to electroencephalogram technologist. family declines amputation. topical hyperbaric oxygen therapy (numo bag) purchased by family. this therapy can be given in hospital or at home, but is not FDA approved. [facility] is currently not accepting the patient due to the family requesting numo bag, as well as the issue with wound healing. amputation has been recommended, however some conflicting opinions. - Severe neuropathic pain - continue Neurontin. Morphine 2 mg intramuscular when necessary - she appears to be tolerating this. -Severe acute metabolic encephalopathy- continues to improve -exhaustive workup has been performed including initial LP which showed pleocytosis with lymphocyte predominance, see previous notes - Appreciate input from neurology, hematology, palliative care - EEG 09/04 -moderate encephalopathy. -MRI brain with and without contrast 09/07 negative -2nd neuro opinion (requested per family) with Dr. Bauer appreciated, family declines repeat LP as patient improving - C. Diff colitis, s/p treatment with vancomycin. ID/Dr. Quispe. - UTI - Microbiology grew ESBL -now treated. -Diabetes mellitus type II, currently with good Accu-Chek reads- Coverage with SSI. Monitor Accu-Cheks. Monitor for hypoglycemia. -Hypothyroidism - TSH on 09/08 23, Free T3 low at 0.72, free T4 nml. increased levothyroxine 150 g ->175. repeat TSH in several weeks. - Hypertension - Cardiomyopathy - EF 3540% -Continue carvedilol low dose. Start JOYCE inhibitor if blood pressure will tolerate and renal function remained stable. currently normotensive. S/p cardiology eval. -Acute kidney injury, resolved. -Chronic kidney disease stage III. Improved, creatinine stable around 1. repeat labs in a.m. -Severe malnutrition - dietary consult noted. Prealbumin is 7. Hopefully patient's by mouth intake will improve as she improves mental status. Consulted GI for eval for possible PEG tube. Started Marinol to stimulate appetite. Daughter Blanche wants to give the patient several days for improvement prior to considering PEG tube. Continue ensure, add multivitamin. - Abnormal uterine appearance - seen on abdominal and pelvis CT -pelvic ultrasound showing prominent endometrium, tumor markers negative, no history of vaginal bleeding -Heme on consult was requested per oncology service. Consider endometrial biopsy as outpatient. MRI abdomen canceled per family (did not want her sedated) . Anemia of chronic illness - stable, monitor transfuse prn Hb<7. repeat CBC in a.m. Full code. Heparin SQ. Discharge Planning d/w the case management today. [facility] is considering [facility] case [facility]- awaiting the final outcome- Conrad Clancy MD Sep 13, 2016 11:49
[2016-09-13] MEDS: DRONABINOL 2.5 MG CAP PO SCH ×2 (13:20→16:31)
[2016-09-13] MEDS: MELATONIN 5 MG TAB PO SCH ×2 (21:00→21:31)
[2016-09-13] MEDS: ATORVASTATIN 80 MG TAB PO SCH (21:31)
[2016-09-14] VITALS (7 sets, daily range): BP systolic 104–121; BP diastolic 54–59; PULSE 80–87; RESP 18–19; TEMP 97.4–98.4; O2SAT 92–96
[2016-09-14] MEDS: HYDROCORTISONE 1% CREAM 30 GM TOPICAL SCH ×3 (03:21→20:00)
[2016-09-14 03:50] LABS: HU (NEURONAL NUCLEAR) WESTBLOT NEGATIVE (NEGATIVE); NEURONAL NUCLEAR(Ri) AB SCREEN FLUORESCENCE NOTED (NEGATIVE); PURKINJE CELL (YO) AB FLUORESCENCE NOTED (NEGATIVE); PURKINJE CELL(YO)IGG AB TITER ND titer (<1:40); YO WESTBLOT NEGATIVE (NEGATIVE)
[2016-09-14] MEDS: LEVOTHYROXINE SODIUM 150 MCG TAB PO SCH (06:03)
[2016-09-14] MEDS: LEVOTHYROXINE SODIUM 25 MCG TAB PO SCH (06:03)
[2016-09-14] MEDS: INSULIN ASPART SUPPLEMENTAL SCALE SQ SCH ×4 (06:03→21:00)
[2016-09-14] MEDS: CARVEDILOL 3.125 MG TAB PO SCH ×2 (09:48→20:57)
[2016-09-14] MEDS: THIAMINE INJ 100 MG in SODIUM CHLORIDE 0.9% INJ 100 ML IV SCH (09:48)
[2016-09-14] MEDS: SODIUM CHLORIDE 0.9% FLUSH 5 ML FLUSH IV FLUSH SCH ×2 (09:48→20:59)
[2016-09-14] MEDS: LIOTHYRONINE SODIUM 5 MCG TAB PO SCH (09:48)
[2016-09-14] MEDS: LACTOBACILLUS ACIDOPHILUS TAB PO SCH ×3 (09:48→16:23)
[2016-09-14] MEDS: MUPIROCIN 2% OINT 22 GM TUBE TOPICAL SCH ×2 (09:49→21:00)
[2016-09-14] MEDS: ASPIRIN EC 81 MG TABEC PO SCH (09:51)
--- NOTE | 2016-09-14 10:41 | HHI.PR ---
Subjective Remarks in no acute distress. no fever. pain is controlled. son at the bedside. d/w the RN. Objective Vitals Vital Signs Date Time Temp Pulse Resp B/P Pulse Ox O2 Delivery O2 Flow Rate FiO2 09/14/16 08:02 98.1 87 19 115/59 96 09/14/16 04:00 97.4 82 18 114/54 96 09/14/16 00:00 97.5 87 18 104/58 95 09/13/16 21:43 Room Air 09/13/16 20:09 82 09/13/16 20:00 98.0 85 18 120/56 98 09/13/16 16:01 98.3 88 19 124/68 97 09/13/16 12:02 98.0 94 19 123/70 96 I/O 09/13/16 09/13/16 09/13/16 09/14/16 09/14/16 09/14/16 07:00 15:00 23:00 07:00 15:00 23:00 Intake Total 120 ml 240 ml 1202 ml 100 ml Output Total 550 ml Balance 120 ml 240 ml 1202 ml -450 ml Intake Oral 120 ml 240 ml 240 ml 100 ml IV Total 962 ml Output Urine Total 550 ml # Voids 1 2 0 # Bowel Movements 1 0 0 Result Diagram: 09/13/16 0632 09/13/16 0632 Imaging Last Impressions Brain MRI 09/07/16 0000 Signed Impressions: Service Date/Time: Wednesday, September 07, 2016 20:26 - CONCLUSION: 1. No acute findings. No significant change from August 25, 2016. No abnormal enhancement post contrast. Mild chronic white matter ischemic changes. Rolando Sharif MD Pelvis Ultrasound 09/05/16 0000 Signed Impressions: Service Date/Time: Monday, September 05, 2016 19:53 - CONCLUSION: Enlarged uterus with prominence of the endometrium. Alfredo Etienne MD Chest CT 09/05/16 0000 Signed Impressions: Service Date/Time: Monday, September 05, 2016 08:47 - CONCLUSION: 1. No worrisome masses. Please see above. 2. Dilatation of the aorta 4.3 cm. 3. Atherosclerosis. Addy Hillman MD Abdomen/Pelvis CT 09/05/16 0000 Signed Impressions: Service Date/Time: Monday, September 05, 2016 08:47 - CONCLUSION: 1. Fat containing umbilical hernias. 2. Extensive atherosclerosis. 3. Indeterminate low-density lesion in the liver, incompletely characterized without contrast. 4. Basilar air space disease and atelectasis with small pericardial effusion. 5. Abnormal appearance of the uterus as described above. A pelvic ultrasound will be helpful for further assessment on a nonemergent outpatient basis. Addy Hillman MD Lumbar Puncture Fluoroscopy 08/29/16 0000 Signed Impressions: Service Date/Time: Monday, August 29, 2016 16:39 - CONCLUSION: Uncomplicated fluoroscopically guided lumbar puncture with pressures as above. Alfredo Etienne MD Chest X-Ray 08/19/16 0000 Signed Impressions: Service Date/Time: Friday, August 19, 2016 18:46 - CONCLUSION: 1. Bibasilar streakiness consistent with atelectasis and/or infiltrates. 2. Cardiomegaly. 3. Poor inspiratory result. Shamar Banuelos MD Upper Extremity Ultrasound 07/28/16 0000 Signed Impressions: Service Date/Time: Thursday, July 28, 2016 14:34 - CONCLUSION: No DVT is identified within the right upper extremity. Alfredo Eng MD Head CT 07/19/16 0000 Signed Impressions: Service Date/Time: Tuesday, July 19, 2016 09:58 - CONCLUSION: No acute intracranial findings. João Otoole MD Foot X-Ray 07/16/16 0000 Signed Impressions: Service Date/Time: Saturday, July 16, 2016 17:34 - CONCLUSION: 1. Nonspecific soft tissue swelling. No acute bone destruction demonstrated. 2. Mild talonavicular and navicular/cuneiform degenerative changes. 3. Second through fifth hammertoe. 4. Moderate-sized heel spur. Alfredo Sneed MD Objective Remarks GENERAL: in no apparent distress. CARDIOVASCULAR: Regular rate and irregular rhythm without murmurs, gallops, or rubs. RESPIRATORY: Clear to auscultation. Breath sounds equal bilaterally. No wheezes , rales, or rhonchi. GASTROINTESTINAL: Abdomen soft, non-tender, nondistended. Normal, active bowel sounds MUSCULOSKELETAL: both legs covered with clean dressing. NEURO: awake and alert Procedures 08/08/2016 PROCEDURE 1. Selective right lower extremity arteriogram. 2. Balloon angioplasty with a 4 mm x 2200 mm and then a 5 x 200 mm [employer] angioplasty balloon of the right superficial femoral and proximal popliteal artery. 07/31/2016 Excision and debridement of both legs, extensive necrotic wounds approximately 30 x 25 cm area on each side, total 1000 to 1100 cm square, down to the subcutaneous tissue and tendon on the left side. 09/03/2016 Right [id number] amputation Medications and IVs Current Medications Sodium Chloride (NS 1000 ml Inj) 1,000 ml @ 84 mls/hr [id number] IV Last administered on 08/05/16 16:12; Start 07/15/16 at 19:42; Stop 08/18/16 at 15:34 ; Status DC IV Flush (NS Flush) 2 ml UNSCH PRN IV FLUSH FLUSH AFTER USING IV ACCESS Last administered on 08/12/16 05:30; Start 07/15/16 at 19:45 IV Flush (NS Flush) 2 ml BID IV FLUSH Last administered on 09/14/16 09:48; Start 07/15/16 at 21:00 Fentanyl Citrate (fentaNYL INJ) 50 mcg Q3H PRN IV PUSH Pain scale 7-10 &/or sedation Last administered on 07/15/16 21:44; Start 07/15/16 at 19:45; Stop at 11:51; Status DC Famotidine (Pepcid Inj) 20 mg Q12HR IV PUSH Last administered on 07/15/16 20: 19; Start 07/15/16 at 21:00; Stop 07/15/16 at 21:24; Status DC Ondansetron HCl (Zofran Inj) 4 mg Q6H PRN IV NAUSEA OR VOMITING Last administered on 07/31/16 13:23; Start 07/15/16 at 19:45; Stop 08/12/16 at 20:17 ; Status DC Metoclopramide HCl (Reglan Inj) 5 mg Q6H PRN IV NAUSEA OR VOMITING Last administered on 09/06/16 21:32; Start 07/15/16 at 19:45 Docusate Sodium (Colace) 100 mg BID PO Last administered on 08/07/16 21:00; Start 07/15/16 at 21:00; Stop 08/08/16 at 22:08; Status DC Albuterol/ Ipratropium (Duoneb Neb) 1 ampule Q2HR NEB PRN INH WHEEZING; Start 07/15/16 at 19:45 Heparin Sodium (Porcine) (Heparin Inj) 5,000 units Q8HR SQ Last administered on 08/28/16 12:46; Start 07/15/16 at 22:00; Stop 09/03/16 at 23:47; Status DC Miscellaneous Information 1 [id number] Last administered on 07/15/16 19:45; Start 07/15/16 at 19:45; Stop 09/04/16 at 03:06; Status DC Chlorhexidine Gluconate (Chlorhexidine 2% Cloth) Taper DAILY@04 TOP Last administered on 07/17/16 03:11; Start 07/16/16 at 04:00; Stop 09/04/16 at 03:06 ; Status DC Chlorhexidine Gluconate (Chlorhexidine 2% Cloth) 3 pack UNSCH PRN TOP HYGIENIC CARE; Start 07/15/16 at 19:45; Stop 09/04/16 at 03:06; Status DC Acetaminophen (Ofirmev Inj) 1,000 mg Q6H PRN IV PAIN SCALE 1 TO 6; Start at 20:00; Stop 07/18/16 at 11:51; Status DC Ketorolac Tromethamine (Toradol Inj) 30 mg Q6H PRN IM PAIN SCALE 1 TO 7; Start 07/15/16 at 20:00; Stop 07/15/16 at 20:10; Status DC Ketorolac Tromethamine (Toradol Inj) 30 mg Q6H PRN IV PUSH PAIN 1-6 Last administered on 07/15/16 20:34; Start 07/15/16 at 20:15; Stop 07/18/16 at 11:51 ; Status DC Carvedilol (Coreg) 25 mg BID PO Last administered on 08/17/16 10:24; Start at 21:00; Stop 08/17/16 at 16:06; Status DC Fluconazole (Diflucan) 75 mg DAILY@17 PO Last administered on 07/16/16 17:03; Start 07/16/16 at 17:00; Stop 07/17/16 at 08:09; Status DC Isosorbide Dinitrate (Isordil) 5 mg Q8HR PO Last administered on 09/02/16 05: 38; Start 07/15/16 at 22:00; Stop 09/03/16 at 23:47; Status DC Lactobacillus Acidophilus (Lactinex) 1 tab TID PO Last administered on 08:32; Start 07/16/16 at 09:00; Stop 08/25/16 at 08:59; Status DC Levofloxacin (Levaquin) 250 mg Q48H PO Last administered on 07/21/16 21:05; Start 07/15/16 at 22:00; Stop 07/23/16 at 16:37; Status DC Levothyroxine Sodium (Synthroid) 150 mcg DAILY@06 PO Last administered on 05:47; Start 07/16/16 at 06:00; Stop 09/09/16 at 17:57; Status DC Liothyronine Sodium (Cytomel) 5 mcg DAILY PO Last administered on 09/14/16 09: 48; Start 07/16/16 at 09:00 Non-Formulary Medication 325 mg DAILY PO ; Start 07/16/16 at 09:00; Status UNV Miscellaneous (Pill Splitter) 1 ea UNSCH PRN OTHER SEE LABEL COMMENTS; Start at 21:30 Famotidine (Pepcid Inj) 10 mg Q12HR IV PUSH Last administered on 07/17/16 07: 29; Start 07/16/16 at 09:00; Stop 07/18/16 at 10:59; Status DC Aspirin (Ecotrin Ec) 325 mg DAILY PO Last administered on 08/25/16 08:30; Start 07/16/16 at 09:00; Stop 08/25/16 at 16:10; Status DC Etomidate (Amidate Inj) 20 mg STK-MED ONCE .ROUTE ; Start 07/16/16 at 17:07; Stop 07/16/16 at 17:08; Status DC Famotidine (Pepcid Inj) 20 mg Q12HR IV PUSH Last administered on 08/12/16 09: 05; Start 07/18/16 at 21:00; Stop 08/12/16 at 20:17; Status DC Hydromorphone HCl (Dilaudid Pf Inj) 0.5 mg ONCE ONCE IV PUSH Last administered on 08/04/16 18:00; Start 07/18/16 at 11:45; Stop 07/18/16 at 11:46 ; Status DC Hydromorphone HCl (Dilaudid Pf Inj) 0.5 mg Q4H PRN IV PUSH breakthrough pain / dresing lori Last administered on 08/31/16 05:32; Start 07/18/16 at 11:45; Stop 09/03/16 at 23:47; Status DC Acetaminophen/ Hydrocodone Bitart ([place] 5-325 Mg) 1 tab Q6H PRN PO pain 2-10 Last administered on 08/12/16 09:04; Start 07/18/16 at 11:45; Stop 08/12/16 at 20:17; Status DC Diphenhydramine HCl 50 mg 50 mg STK-MED ONCE .ROUTE ; Start 07/19/16 at 11:20; Stop 07/19/16 at 11:21; Status DC Levetriacetam/ Sodium Chloride (Keppra Inj/NS Inj) 105 ml @ 420 mls/hr Q12HR IV Last administered on 07/20/16 08:19; Start 07/19/16 at 13:00; Stop at 16:25; Status DC Haloperidol Lactate (Haldol Inj) 2 mg Q6H PRN IM aggittation Last administered on 07/30/16 01:29; Start 07/19/16 at 12:30; Stop 09/03/16 at 23:47; Status DC Lorazepam 1 mg 1 mg Q6H PRN IV PUSH seizures/agiatation Last administered on 06:09; Start 07/19/16 at 12:30; Stop 09/03/16 at 23:47; Status DC Valproate Sodium 500 mg/Sodium Chloride 105 ml @ 105 mls/hr Q8H IV Last administered on 07/25/16 09:26; Start 07/20/16 at 18:00; Stop 07/25/16 at 09:54; Status DC Cefepime HCl/ Sodium Chloride (Maxipime Inj/NS Inj) 100 ml @ 200 mls/hr Q12H IV Last administered on 07/27/16 02:43; Start 07/21/16 at 15:00; Stop 07/27/16 at 09:00; Status DC Dextrose (D50w (Vial) Inj) 25 ml UNSCH PRN IV PUSH HYPOGLYCEMIA-SEE COMMENTS; Start 07/23/16 at 11:00 Glucagon (Glucagon Inj) 1 mg UNSCH PRN OTHER HYPOGLYCEMIA-SEE COMMENTS; Start 07/23/16 at 11:00 Insulin Aspart (NovoLOG SUPPLEMENTAL SCALE) 1 ACHS SLIDING SCALE SQ Last administered on 09/10/16 21:48; Start 07/23/16 at 11:00 Potassium Chloride (KCl) 40 meq ONCE ONCE PO Last administered on 07/24/16 13: 00; Start 07/24/16 at 13:00; Stop 07/24/16 at 13:01; Status DC Valproic Acid (Depakene) 500 mg Q8HR PO Last administered on 07/26/16 14:52; Start 07/25/16 at 15:00; Stop 07/26/16 at 17:39; Status DC Potassium Chloride (KCl) 30 meq ONCE ONCE PO Last administered on 07/26/16 19: 30; Start 07/26/16 at 16:30; Stop 07/26/16 at 16:36; Status DC Potassium Chloride (KCl) 30 meq ONCE ONCE PO Last administered on 07/26/16 22: 16; Start 07/26/16 at 20:00; Stop 07/26/16 at 20:01; Status DC Valproic Acid (Depakene) 250 mg Q12HR PO Last administered on 09/04/16 09:07; Start 07/27/16 at 09:00; Stop 09/04/16 at 16:16; Status DC Hydromorphone HCl (Dilaudid Pf Inj) 0.5 mg ONCE ONCE IV PUSH Last administered on 07/27/16 10:42; Start 07/27/16 at 10:45; Stop 07/27/16 at 10:46; Status DC Valsartan (Diovan) 80 mg HS PO Last administered on 08/19/16 21:58; Start 07/27 at 21:00; Stop 08/20/16 at 18:58; Status DC Enalaprilat (Vasotec Inj) 1.25 mg Q8H PRN IV PUSH SBP >180 OR DBP >100; Start 07/28/16 at 16:00 Fluconazole 100 mg 100 mg DAILY PO Last administered on 08/05/16 11:34; Start 07/30/16 at 09:45; Stop 08/05/16 at 16:53; Status DC Ceftriaxone Sodium/Sodium Chloride (Rocephin Inj/NS Inj) 100 ml @ 200 mls/hr Q24H IV Last administered on 08/01/16 09:45; Start 07/30/16 at 10:00; Stop 03/10 at 11:59; Status DC Potassium Chloride (KCl) 30 meq ONCE ONCE PO Last administered on 07/30/16 12: 12; Start 07/30/16 at 09:45; Stop 07/30/16 at 09:53; Status DC Potassium Chloride (KCl) 30 meq ONCE ONCE PO Last administered on 07/30/16 14: 00; Start 07/30/16 at 14:00; Stop 07/30/16 at 14:01; Status DC Insulin Detemir (Levemir Inj) 5 units HS SQ Last administered on 09/03/16 20: 17; Start 07/30/16 at 21:00; Status Hold Melatonin (Melatonin) 5 mg HS PO Last administered on 09/11/16 20:39; Start at 21:00 Bupivacaine HCl (Marcaine Pf 0.5% Inj) 30 ml STK-MED ONCE .ROUTE ; Start at 10:12; Stop 07/31/16 at 10:13; Status DC Bupivacaine HCl/ Epinephrine Bitart (Sensorcaine-Epi 0.5% 50 ml Inj) 50 ml STK- MED ONCE .ROUTE ; Start 07/31/16 at 10:12; Stop 07/31/16 at 10:13; Status DC Bacitracin (Baciguent Oint) 15 applic STK-MED ONCE .ROUTE ; Start 07/31/16 at 10: 12; Stop 07/31/16 at 10:13; Status DC Dexamethasone Sodium Phosphate (Decadron Inj) 4 mg STK-MED ONCE .ROUTE Last administered on 07/31/16 10:24; Start 07/31/16 at 10:22; Stop 07/31/16 at 10:23; Status DC Famotidine (Pepcid Inj) 20 mg STK-MED ONCE IV PUSH Last administered on 10:23; Start 07/31/16 at 10:23; Stop 07/31/16 at 10:27; Status DC Fentanyl Citrate 500 mcg 500 mcg STK-MED ONCE .ROUTE ; Start 07/31/16 at 12:13; Stop 07/31/16 at 12:14; Status DC Gentamicin Sulfate/Sodium Chloride (Gentamicin Inj/ NS Irr Btl) 1,005 ml @ 0 mls/hr UNSCH PRN IRRIGATION DRESSING CHANGES; Start 07/31/16 at 13:30 Miscellaneous Information ALL NURSING DEPARTME... UNSCH PRN XX SEE LABEL COMMENTS; Start 07/31/16 at 13:30; Stop 08/01/16 at 13:29; Status DC Propofol (Diprivan 200 Mg/20 ml Inj) 200 mg STK-MED ONCE IV ; Start 07/31/16 at 12:42; Stop 08/04/16 at 12:43; Status DC Ephedrine Sulfate (ePHEDrine/NS 25 MG/5 ML SYR) 25 mg STK-MED ONCE IV ; Start at 12:42; Stop 08/04/16 at 12:43; Status DC Phenylephrine HCl (Neosynephrine/ NS 1000 Mcg/10ml Syr) 1,000 mcg STK-MED ONCE IV ; Start 07/31/16 at 12:42; Stop 08/04/16 at 12:43; Status DC Ondansetron HCl (Zofran Inj) 4 mg STK-MED ONCE IV PUSH ; Start 07/31/16 at 12:42 ; Stop 08/04/16 at 12:43; Status DC Prednisone (Deltasone) 50 mg Q6H PO Last administered on 08/08/16t 04:00; Start 08/07/16 at 16:00; Stop 08/08/16 at 04:01; Status DC Diphenhydramine HCl (Benadryl Inj) 50 mg ONCE ONCE IV ; Start 08/07/16 at 16:00 ; Stop 08/07/16 at 16:01; Status DC Midazolam HCl (Versed Inj) 2 mg STK-MED ONCE .ROUTE ; Start 08/08/16 at 08:24; Stop 08/08/16 at 08:25; Status DC Diphenhydramine HCl (Benadryl Inj) 50 mg STK-MED ONCE .ROUTE ; Start 08/08/16 at 08:24; Stop 08/08/16 at 08:25; Status DC Hydrocortisone Sodium Succinate (SoluCORTEF INJ) 100 mg STK-MED ONCE .ROUTE Last administered on 08/08/16 08:52; Start 08/08/16 at 08:50; Stop 08/08/16 at 08:51; Status DC Ketamine HCl (Ketalar Inj) 500 mg STK-MED ONCE .ROUTE ; Start 08/08/16 at 08:59 ; Stop 08/08/16 at 09:00; Status DC Iohexol 100 ml 100 ml STK-MED ONCE OTHER Last administered on 08/08/16 08:50; Start 08/08/16 at 08:50; Stop 08/08/16 at 09:45; Status DC Nitroglycerin/ Dextrose (Nitroglycerin-Dextrose Inj) 250 ml @ As Directed STK- MED ONCE .ROUTE ; Start 08/08/16 at 09:57; Stop 08/08/16 at 09:58; Status DC Iohexol (Omnipaque 300 Inj) 50 ml STK-MED ONCE OTHER Last administered on 10:10; Start 08/08/16 at 10:10; Stop 08/08/16 at 10:31; Status DC Midazolam HCl (Versed Inj) 2 mg STK-MED ONCE .ROUTE ; Start 08/08/16 at 11:01; Stop 08/08/16 at 11:02; Status DC Fentanyl Citrate (fentaNYL INJ) 250 mcg STK-MED ONCE .ROUTE ; Start 08/08/16 at 11:02; Stop 08/08/16 at 11:03; Status DC Fentanyl Citrate (fentaNYL INJ) 100 mcg STK-MED ONCE .ROUTE ; Start 08/08/16 at 11:02; Stop 08/08/16 at 11:03; Status DC Morphine Sulfate (Morphine Inj) 4 mg STK-MED ONCE .ROUTE ; Start 08/08/16 at 11: 03; Stop 08/08/16 at 11:04; Status DC Morphine Sulfate (*morphine INJ PERIprocedure ONLY) 8 mg STK-MED ONCE .ROUTE Last administered on 08/08/16 11:17; Start 08/08/16 at 11:17; Stop 08/08/16 at 11:18; Status DC Miscellaneous Information ALL NURSING DEPARTME... UNSCH PRN XX SEE LABEL COMMENTS; Start 08/08/16 at 12:30; Stop 08/09/16 at 12:29; Status DC Lorazepam (Ativan) 0.25 mg Q12H PRN PO ANXIETY; Start 08/09/16 at 14:00; Stop 08/11/16 at 14:33; Status DC Propofol (Diprivan 200 Mg/20 ml Inj) 800 mg STK-MED ONCE IV ; Start 08/08/16 at 12:00; Stop 08/11/16 at 12:57; Status DC Heparin Sodium (Porcine) (Heparin Inj) 5,000 units STK-MED ONCE OTHER ; Start at 12:00; Stop 08/11/16 at 13:02; Status DC Potassium Chloride (KCl) 10 meq Q8HR PO Last administered on 08/16/16 06:08; Start 08/11/16 at 14:00; Stop 08/16/16 at 13:59; Status DC Clonazepam (KlonoPIN) 0.5 mg Q8HR PO Last administered on 08/12/16 05:29; Start 08/11/16 at 14:45; Stop 08/12/16 at 12:49; Status DC Diphenhydramine HCl (Benadryl) 25 mg ONCE ONCE PO Last administered on 17:50; Start 08/11/16 at 14:45; Stop 08/11/16 at 15:05; Status DC Clonazepam (KlonoPIN) 0.5 mg Q8H PRN PO ANXIETY Last administered on 08/30/16 22:50; Start 08/12/16 at 12:45; Stop 09/03/16 at 23:47; Status DC Gabapentin (Neurontin) 200 mg TID PO Last administered on 08/12/16 14:59; Start 08/12/16 at 13:00; Stop 08/14/16 at 16:07; Status DC Methadone HCl (Dolophine) 2.5 mg Q12HR PO Last administered on 09/01/16 21:49 ; Start 08/12/16 at 21:00; Stop 09/03/16 at 23:47; Status DC Doxycycline Hyclate (Vibratab) 100 mg Q12HR PO Last administered on 08/16/16 22:41; Start 08/12/16 at 22:45; Stop 08/17/16 at 08:21; Status DC Quetiapine Fumarate (SEROquel) 12.5 mg ONCE ONCE PO Last administered on 10:45; Start 08/13/16 at 10:45; Stop 08/13/16 at 10:50; Status DC Quetiapine Fumarate (SEROquel) 12.5 mg BID PO Last administered on 08/13/16 20 :32; Start 08/13/16 at 21:00; Stop 08/14/16 at 12:41; Status DC Gabapentin (Neurontin) 300 mg ONCE ONCE PO Last administered on 08/13/16 11: 00; Start 08/13/16 at 11:00; Stop 08/13/16 at 11:09; Status DC Acetaminophen (Tylenol) 500 mg Q6H PRN PO FEVER >100.4 Last administered on 17:12; Start 08/13/16 at 17:15 Quetiapine Fumarate (SEROquel) 6.25 mg HS PO Last administered on 09/01/16 21: 00; Start 08/14/16 at 21:00; Stop 09/03/16 at 23:47; Status DC Quetiapine Fumarate (SEROquel) 6.25 mg DAILY PRN PO agitated delirium Last administered on 09/01/16 12:37; Start 08/14/16 at 12:45; Stop 09/03/16 at 23:47 ; Status DC Gabapentin (Neurontin) 300 mg TID PO Last administered on 08/15/16 13:25; Start 08/15/16 at 09:00; Stop 08/15/16 at 14:20; Status DC Gabapentin (Neurontin) 400 mg ONCE ONCE PO ; Start 08/14/16 at 16:15; Stop at 16:15; Status DC Gabapentin (Neurontin) 200 mg ONCE ONCE PO Last administered on 08/14/16 17: 00; Start 08/14/16 at 16:30; Stop 08/14/16 at 16:33; Status DC Gabapentin (Neurontin) 400 mg TID PO Last administered on 08/18/16 12:34; Start 08/15/16 at 18:00; Stop 08/18/16 at 13:52; Status DC Mupirocin (Bactroban 2% Oint) 1 applic Q12HR TOPICAL Last administered on 09:49; Start 08/15/16 at 15:00 Hydrocortisone 1 applic 1 applic Q8H TOPICAL Last administered on 09/14/16 03: 21; Start 08/15/16 at 20:00 Levofloxacin/ Dextrose (Levaquin 750 Mg Premix Inj) 150 ml @ 100 mls/hr Q24H IV Last administered on 08/16/16 09:41; Start 08/16/16 at 08:00; Stop at 08:21; Status DC Lactobacillus Acidophilus 1 tab 1 tab TID PO Last administered on 09/11/16 17: 39; Start 08/16/16 at 09:00 Vancomycin HCl 1750 mg/Sodium Chloride 517.5 ml @ 258.75 mls/ hr ONCE ONCE IV Last administered on 08/17/16 10:21; Start 08/17/16 at 10:00; Stop 08/17/16 at 11:59; Status DC Pharmacy Profile Note 0 ml @ 0 mls/hr UNSCH OTHER ; Start 08/17/16 at 08:15; Stop 08/18/16 at 16:18; Status DC Piperacillin Sod/ Tazobactam Sod 50 ml @ 100 mls/hr Q6H IV Last administered on 08/18/16 09:15; Start 08/17/16 at 09:00; Stop 08/18/16 at 13:02; Status DC Sodium Chloride 1,000 ml @ 999 mls/hr BOLUS ONCE IV Last administered on 08/17 08:30; Start 08/17/16 at 08:30; Stop 08/17/16 at 09:30; Status DC Sodium Chloride 1,000 ml @ 200 mls/hr Q5H IV ; Start 08/17/16 at 09:00; Stop at 18:59; Status DC Vancomycin HCl/ Sodium Chloride (Vancomycin Inj/ NS 250 ml Inj) 250 ml @ 250 mls/hr Q12H IV Last administered on 08/18/16 12:33; Start 08/17/16 at 22:00; Stop 08/18/16 at 16:31; Status DC Miscellaneous Information SPECIFIC LAB TO BE [facility]... ONCE ONCE XX ; Start at 21:45; Stop 08/18/16 at 21:45; Status DC Olanzapine 10 mg 10 mg Q12H PRN IM acute agitation; Start 08/17/16 at 16:15; Stop 08/19/16 at 16:14; Status DC Levofloxacin/ Dextrose 150 ml @ 100 mls/hr Q24H IV ; Start 08/18/16 at 09:00; Stop 08/18/16 at 09:00; Status DC Levofloxacin/ Dextrose (Levaquin 750 Mg Premix Inj) 150 ml @ 100 mls/hr Q48H IV Last administered on 08/18/16 09:54; Start 08/18/16 at 09:00; Stop at 13:02; Status DC Miscellaneous Medication (ASP Crit: Doc ESBL, MDR A baumannii or P aer) 1 UNSCH X1 PRN XX PHARMACY DOCUMENTATION; Start 08/18/16 at 13:00; Stop 08/19/16 at 12: 59; Status DC Miscellaneous Medication 1 1 UNSCH X1 PRN XX PHARMACY DOCUMENTATION; Start at 13:00; Stop 08/19/16 at 12:59; Status DC Meropenem/Sodium Chloride (Merrem Inj/NS Inj) 100 ml @ 200 mls/hr Q8H IV Last administered on 08/21/16 06:14; Start 08/18/16 at 14:00; Stop 08/21/16 at 07:36 ; Status DC Gabapentin 600 mg 600 mg TID PO Last administered on 09/01/16 18:44; Start at 18:00; Stop 09/02/16 at 21:42; Status DC Sodium Chloride 1,000 ml @ 150 mls/hr Q6H40M IV Last administered on 17:44; Start 08/18/16 at 15:30; Stop 08/20/16 at 17:43; Status DC Sodium Chloride (NS 250 ml Inj) 250 ml @ 15 mls/hr ONCE ONCE IV Last administered on 08/19/16 06:34; Start 08/18/16 at 16:45; Stop 08/19/16 at 09:24 ; Status DC Acetaminophen (Tylenol) 650 mg Q4H PRN PO SEE LABEL COMMENTS; Start 08/18/16 at 16:45; Stop 08/18/16 at 20:46; Status DC Diphenhydramine HCl 25 mg 25 mg Q4H PRN PO SEE LABEL COMMENTS; Start 08/18/16 at 16:45; Stop 08/18/16 at 20:46; Status DC Linezolid (Zyvox 600 Mg Premix) 300 ml @ 300 mls/hr Q12H IV Last administered on 08/20/16 22:54; Start 08/19/16 at 08:00; Stop 08/21/16 at 07:36; Status DC Albumin Human (Albumin 25% Inj) 12.5 gm Q8H IV Last administered on 08/22/16 11:31; Start 08/20/16 at 20:00; Stop 08/22/16 at 13:51; Status DC Bumetanide (Bumex Inj) 1 mg Q8H IV PUSH Last administered on 08/22/16 12:44; Start 08/20/16 at 20:00; Stop 08/22/16 at 13:51; Status DC Metronidazole (Flagyl) 500 mg Q6HR PO ; Start 08/21/16 at 09:00; Stop 08/21/16 at 09:00; Status DC Vancomycin HCl (VANCOMYCIN for oral use only) 500 mg QID PO Last administered on 08/25/16 12:22; Start 08/21/16 at 09:00; Stop 08/25/16 at 13:53; Status DC Chlorothiazide Sodium (Diuril Inj) 250 mg ONCE ONCE IV Last administered on 21:03; Start 08/21/16 at 20:00; Stop 08/21/16 at 20:01; Status DC Potassium Phos/ Sodium Phos (K-Phos Neutral) 250 mg BID PO Last administered on 08/22/16 07:41; Start 08/21/16 at 21:00; Stop 08/22/16 at 20:59; Status DC Bumetanide (Bumetanide) 1 mg DAILY PO Last administered on 09/01/16 08:18; Start 08/23/16 at 09:00; Stop 09/03/16 at 23:47; Status DC Potassium Chloride (KCl) 20 meq ONCE ONCE PO Last administered on 08/22/16 14 :23; Start 08/22/16 at 14:00; Stop 08/22/16 at 14:01; Status DC Valsartan (Diovan) 40 mg DAILY PO Last administered on 09/01/16 08:18; Start 08/23/16 at 09:00; Stop 09/03/16 at 23:47; Status DC Vancomycin HCl (VANCOMYCIN for oral use only) 125 mg QID PO Last administered on 09/09/16 12:29; Start 08/25/16 at 18:00; Stop 09/09/16 at 17:59; Status DC Lorazepam (Ativan Inj) 0.5 mg UNSCH X1 IV Last administered on 08/25/16 18:32 ; Start 08/25/16 at 17:00; Stop 08/25/16 at 23:00; Status DC Diphenhydramine HCl (Benadryl) 25 mg ONCE ONCE PO Last administered on 22:15; Start 08/26/16 at 22:00; Stop 08/26/16 at 22:01; Status DC Lorazepam (Ativan Inj) 1 mg ONCE ONCE IV PUSH Last administered on 08/29/16 17 :10; Start 08/29/16 at 17:00; Stop 08/29/16 at 17:01; Status DC Hydromorphone HCl (Dilaudid Pf Inj) 0.5 mg ONCE ONCE IV PUSH Last administered on 08/29/16 17:11; Start 08/29/16 at 17:00; Stop 08/29/16 at 17:01; Status DC Olanzapine 5 mg 5 mg HS PO Last administered on 09/01/16 21:49; Start 08/30/16 at 21:15; Stop 09/03/16 at 23:47; Status DC Potassium Chloride/Lactated Ringer's (KCl Inj/Lr 1000 ml Inj) 1,010 ml @ 42 mls /hr Q24H IV Last administered on 09/10/16 07:14; Start 09/02/16 at 00:00; Stop 09/12/16 at 20:35; Status DC Vancomycin HCl (Vancomycin Inj) 1,000 mg STK-MED ONCE OTHER Last administered on 09/02/16 16:51; Start 09/02/16 at 16:51; Stop 09/02/16 at 16:59; Status DC Morphine Sulfate (Morphine Inj) 2 mg Q4HR PRN IM Pain 1-10 Last administered on 09/11/16 11:27; Start 09/03/16 at 16:15 Haloperidol Lactate (Haldol Inj) 1 mg Q6H PRN IM Psychosis, delirium Last administered on 09/04/16 09:17; Start 09/03/16 at 16:15; Status Hold Heparin Sodium (Porcine) (Heparin Inj) 5,000 units Q12HR SQ Last administered on 09/09/16 21:39; Start 09/04/16 at 09:00; Stop 09/10/16 at 07:38; Status DC Dronabinol (Marinol) 2.5 mg BID@11,16 PO Last administered on 09/10/16 13:54; Start 09/05/16 at 11:00 Dronabinol (Marinol) 2.5 mg ONCE ONCE PO Last administered on 09/04/16 21:51 ; Start 09/04/16 at 17:15; Stop 09/04/16 at 17:17; Status DC Aspirin (Ecotrin Ec) 81 mg DAILY PO Last administered on 09/13/16 10:00; Start 09/05/16 at 09:00 Carvedilol (Coreg) 3.125 mg Q12HR PO Last administered on 09/14/16 09:48; Start 09/05/16 at 09:00 Lorazepam (Ativan Inj) 0.5 mg HAND STRAIGHTENER ONCE IV PUSH ; Start 09/06/16 at 18:15; Stop 09/06/16 at 18:30; Status DC Atorvastatin Calcium (Lipitor) 80 mg HS PO Last administered on 09/13/16 21:31 ; Start 09/06/16 at 21:00 Lorazepam (Ativan Inj) 0.5 mg HAND STRAIGHTENER ONCE IV PUSH Last administered on 20:08; Start 09/07/16 at 20:15; Stop 09/07/16 at 20:16; Status DC Gadodiamide (Omniscan Pf Inj) 16 ml STK-MED ONCE IV Last administered on 20:45; Start 09/07/16 at 20:45; Stop 09/07/16 at 20:46; Status DC Lorazepam 0.5 mg 0.5 mg ONCE ONCE IV PUSH ; Start 09/08/16 at 13:00; Stop 09/08 at 13:01; Status DC Thiamine HCl/ Sodium Chloride (Thiamine Inj/NS Inj) 101 ml @ 101 mls/hr DAILY IV Last administered on 09/14/16 09:48; Start 09/09/16 at 10:00 Propofol (Diprivan 200 Mg/20 ml Inj) 200 mg STK-MED ONCE IV ; Start 09/02/16 at 12:00; Stop 09/09/16 at 13:30; Status DC Ephedrine Sulfate (ePHEDrine/NS 25 MG/5 ML SYR) 25 mg STK-MED ONCE IV ; Start at 12:00; Stop 09/09/16 at 13:30; Status DC Phenylephrine HCl (Neosynephrine/ NS 1000 Mcg/10ml Syr) 1,000 mcg STK-MED ONCE IV ; Start 09/02/16 at 12:00; Stop 09/09/16 at 13:30; Status DC Ondansetron HCl 4 mg 4 mg STK-MED ONCE IV PUSH ; Start 09/02/16 at 12:00; Stop 09/09/16 at 13:30; Status DC Sodium Chloride 250 ml @ As Directed STK-MED ONCE IV ; Start 09/02/16 at 12:00 ; Stop 09/09/16 at 13:30; Status DC Parenteral Electrolytes (Normosol R Inj) 1,000 ml @ As Directed STK-MED ONCE IV ; Start 09/02/16 at 12:00; Stop 09/09/16 at 13:30; Status DC Levothyroxine Sodium (Synthroid) 175 mcg DAILY@06 PO ; Start 09/10/16 at 06:00; Status UNV Levothyroxine Sodium (Synthroid) 150 mcg DAILY@06 PO Last administered on 06:03; Start 09/10/16 at 06:00 Levothyroxine Sodium (Synthroid) 25 mcg DAILY@06 PO Last administered on 06:03; Start 09/10/16 at 06:00 Fentanyl Citrate (fentaNYL INJ) 100 mcg STK-MED ONCE IV ; Start 09/02/16 at 12: 00; Stop 09/10/16 at 12:44; Status DC A/P Assessment and Plan A/P -s/p right AKA for nonhealing ischemic wound. Stump well healing. management per Dr. Taylor. - Peripheral vascular disease with nonhealing left lower extremity wound with necrotic tendon, several necrotic toes-status post consultation with 3 vascular surgeons, plastic surgery, to mine surveyor. family declines amputation. topical hyperbaric oxygen therapy (numo bag) purchased by family. this therapy can be given in hospital or at home, but is not FDA approved. [facility] is currently not accepting the patient due to the family requesting numo bag, as well as the issue with wound healing. amputation has been recommended, however some conflicting opinions. - Severe neuropathic pain - continue Neurontin. Morphine 2 mg intramuscular when necessary - she appears to be tolerating this. -Severe acute metabolic encephalopathy- continues to improve -exhaustive workup has been performed including initial LP which showed pleocytosis with lymphocyte predominance, see previous notes - Appreciate input from neurology, hematology, palliative care - EEG 09/04 -moderate encephalopathy. -MRI brain with and without contrast 09/07 negative -2nd neuro opinion (requested per family) with Dr. Bauer appreciated, family declines repeat LP as patient improving - C. Diff colitis, s/p treatment with vancomycin. ID/Dr. Quispe. - UTI - Microbiology grew ESBL -now treated. -Diabetes mellitus type II, currently with good Accu-Chek reads- Coverage with SSI. Monitor Accu-Cheks. Monitor for hypoglycemia. -Hypothyroidism - TSH on 09/08 23, Free T3 low at 0.72, free T4 nml. increased levothyroxine 150 g ->175. repeat TSH in several weeks. - Hypertension - Cardiomyopathy - EF 3540% -Continue carvedilol low dose. will consider JOYCE inhibitor if blood pressure will tolerate and renal function remained stable. currently normotensive. S/p cardiology eval. -Acute kidney injury, resolved. -Chronic kidney disease stage III. Improved, creatinine stable around 1. repeat labs in a.m. -Severe malnutrition - dietary consult noted. Prealbumin is 7. Hopefully patient's by mouth intake will improve as she improves mental status. Consulted GI for eval for possible PEG tube. Started Marinol to stimulate appetite. Daughter Blanche wants to give the patient several days for improvement prior to considering PEG tube. Continue ensure, add multivitamin. - Abnormal uterine appearance - seen on abdominal and pelvis CT -pelvic ultrasound showing prominent endometrium, tumor markers negative, no history of vaginal bleeding -Heme on consult was requested per oncology service. Consider endometrial biopsy as outpatient. MRI abdomen canceled per family (did not want her sedated) . Anemia of chronic illness - stable, monitor transfuse prn Hb<7. Full code. Heparin SQ. Discharge Planning select is considering the case again- awaiting the final outcome- Conrad Clancy MD Sep 14, 2016 10:41
[2016-09-14] MEDS: DRONABINOL 2.5 MG CAP PO SCH ×2 (11:49→16:21)
[2016-09-14 13:31] LABS: BACTERIA, URINE MANY /hpf; BLOOD, URINE MOD (NEG); GLUCOSE,URINE NEG (NEG); KETONE, URINE NEG (NEG); MUCUS URINE FEW /lpf (OCC); NITRITE,URINE NEG (NEG); SQUAMOUS EPITHELIAL CELL URINE 7 /hpf (0-5); TRANSITIONAL EPI CELLS, URINE <1 /hpf; URINE COLOR YELLOW (YELLW/STRAW)
[2016-09-14 13:32] LABS: COMMENT (UR) CULTURE INDICATED; CULTURE IF INDICATED CULTURE INDICATED
[2016-09-14] MEDS ORDERED: diphenhydrAMINE HCL 2%/ZINC ACETATE 0.1% CREAM 30 APPLIC/30 GM TUBE TOPICAL PRN (14:00)
[2016-09-14] MEDS: ATORVASTATIN 80 MG TAB PO SCH (20:57)
[2016-09-14] MEDS: MELATONIN 5 MG TAB PO SCH (21:00)
[2016-09-15] VITALS: BP 129/60; PULSE 85; RESP 16; TEMP 98.2; O2SAT 97
[2016-09-15] MEDS: HYDROCORTISONE 1% CREAM 30 GM TOPICAL SCH ×3 (03:46→20:00)
[2016-09-15 04:00] VITALS: BP 141/69; PULSE 76; RESP 18; TEMP 97.8; O2SAT 97
[2016-09-15] MEDS: LEVOTHYROXINE SODIUM 25 MCG TAB PO SCH (06:38)
[2016-09-15] MEDS: LEVOTHYROXINE SODIUM 150 MCG TAB PO SCH (06:38)
[2016-09-15] MEDS: INSULIN ASPART SUPPLEMENTAL SCALE SQ SCH ×4 (06:38→21:00)
[2016-09-15 08:00] VITALS: BP 122/60; PULSE 80; RESP 16; TEMP 97; O2SAT 98
[2016-09-15] MEDS: ASPIRIN EC 81 MG TABEC PO SCH (08:01)
[2016-09-15] MEDS: CARVEDILOL 3.125 MG TAB PO SCH ×2 (08:01→21:04)
[2016-09-15] MEDS: LACTOBACILLUS ACIDOPHILUS TAB PO SCH ×3 (08:01→17:05)
[2016-09-15] MEDS: LIOTHYRONINE SODIUM 5 MCG TAB PO SCH (08:01)
[2016-09-15] MEDS: SODIUM CHLORIDE 0.9% FLUSH 5 ML FLUSH IV FLUSH SCH ×2 (09:00→21:00)
[2016-09-15] MEDS: THIAMINE INJ 100 MG in SODIUM CHLORIDE 0.9% INJ 100 ML IV SCH (09:17)
[2016-09-15] MEDS: MORPHINE SULFATE 4 MG/ML INJ IM PRN (09:18)
[2016-09-15] MEDS: DRONABINOL 2.5 MG CAP PO SCH ×2 (11:00→15:51)
--- NOTE | 2016-09-15 11:48 | HHI.PR ---
Subjective Remarks resting comfortably with no distress. no fever. Objective Vitals Vital Signs Date Time Temp Pulse Resp B/P Pulse Ox O2 Delivery O2 Flow Rate FiO2 09/15/16 09:50 Room Air 09/15/16 08:00 97.0 80 16 122/60 98 09/15/16 04:00 97.8 76 18 141/69 97 09/15/16 00:00 98.2 85 16 129/60 97 09/14/16 21:13 Room Air 09/14/16 20:00 97.8 80 18 117/57 92 09/14/16 16:02 98.4 83 19 106/58 95 09/14/16 12:02 98.2 86 19 121/56 96 I/O 09/14/16 09/14/16 09/14/16 09/15/16 09/15/16 09/15/16 07:00 15:00 23:00 07:00 15:00 23:00 Intake Total 100 ml 240 ml 0 ml Output Total 550 ml Balance -450 ml 240 ml 0 ml Intake Oral 100 ml 240 ml 0 ml Output Urine Total 550 ml # Voids 2 0 1 # Bowel Movements 0 0 1 2 Result Diagram: 09/13/16 0632 09/13/16 0632 Imaging Last Impressions Brain MRI 09/07/16 0000 Signed Impressions: Service Date/Time: Wednesday, September 07, 2016 20:26 - CONCLUSION: 1. No acute findings. No significant change from August 25, 2016. No abnormal enhancement post contrast. Mild chronic white matter ischemic changes. Rolando Sharif MD Pelvis Ultrasound 09/05/16 0000 Signed Impressions: Service Date/Time: Monday, September 05, 2016 19:53 - CONCLUSION: Enlarged uterus with prominence of the endometrium. Alfredo Etienne MD Chest CT 09/05/16 0000 Signed Impressions: Service Date/Time: Monday, September 05, 2016 08:47 - CONCLUSION: 1. No worrisome masses. Please see above. 2. Dilatation of the aorta 4.3 cm. 3. Atherosclerosis. Addy Hillman MD Abdomen/Pelvis CT 09/05/16 0000 Signed Impressions: Service Date/Time: Monday, September 05, 2016 08:47 - CONCLUSION: 1. Fat containing umbilical hernias. 2. Extensive atherosclerosis. 3. Indeterminate low-density lesion in the liver, incompletely characterized without contrast. 4. Basilar air space disease and atelectasis with small pericardial effusion. 5. Abnormal appearance of the uterus as described above. A pelvic ultrasound will be helpful for further assessment on a nonemergent outpatient basis. Addy Hillman MD Lumbar Puncture Fluoroscopy 08/29/16 0000 Signed Impressions: Service Date/Time: Monday, August 29, 2016 16:39 - CONCLUSION: Uncomplicated fluoroscopically guided lumbar puncture with pressures as above. Alfredo Etienne MD Chest X-Ray 08/19/16 0000 Signed Impressions: Service Date/Time: Friday, August 19, 2016 18:46 - CONCLUSION: 1. Bibasilar streakiness consistent with atelectasis and/or infiltrates. 2. Cardiomegaly. 3. Poor inspiratory result. Shamar Banuelos MD Upper Extremity Ultrasound 07/28/16 0000 Signed Impressions: Service Date/Time: Thursday, July 28, 2016 14:34 - CONCLUSION: No DVT is identified within the right upper extremity. Alfredo Eng MD Head CT 07/19/16 0000 Signed Impressions: Service Date/Time: Tuesday, July 19, 2016 09:58 - CONCLUSION: No acute intracranial findings. João Otoole MD Foot X-Ray 07/16/16 0000 Signed Impressions: Service Date/Time: Saturday, July 16, 2016 17:34 - CONCLUSION: 1. Nonspecific soft tissue swelling. No acute bone destruction demonstrated. 2. Mild talonavicular and navicular/cuneiform degenerative changes. 3. Second through fifth hammertoe. 4. Moderate-sized heel spur. Alfredo Sneed MD Objective Remarks GENERAL: in no apparent distress. CARDIOVASCULAR: Regular rate and irregular rhythm without murmurs, gallops, or rubs. RESPIRATORY: Clear to auscultation. Breath sounds equal bilaterally. No wheezes , rales, or rhonchi. GASTROINTESTINAL: Abdomen soft, non-tender, nondistended. 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 NEURO: awake and alert Procedures 08/08/2016 PROCEDURE 1. Selective right lower extremity arteriogram. 2. Balloon angioplasty with a 4 mm x 2200 mm and then a 5 x 200 mm [employer] angioplasty balloon of the right superficial femoral and proximal popliteal artery. 07/31/2016 Excision and debridement of both legs, extensive necrotic wounds approximately 30 x 25 cm area on each side, total 1000 to 1100 cm square, down to the subcutaneous tissue and tendon on the left side. 09/03/2016 Right [id number] amputation Medications and IVs Current Medications Sodium Chloride (NS 1000 ml Inj) 1,000 ml @ 84 mls/hr [id number] IV Last administered on 08/05/16 16:12; Start 07/15/16 at 19:42; Stop 08/18/16 at 15:34 ; Status DC IV Flush (NS Flush) 2 ml UNSCH PRN IV FLUSH FLUSH AFTER USING IV ACCESS Last administered on 08/12/16 05:30; Start 07/15/16 at 19:45 IV Flush (NS Flush) 2 ml BID IV FLUSH Last administered on 09/14/16 20:59; Start 07/15/16 at 21:00 Fentanyl Citrate (fentaNYL INJ) 50 mcg Q3H PRN IV PUSH Pain scale 7-10 &/or sedation Last administered on 07/15/16 21:44; Start 07/15/16 at 19:45; Stop at 11:51; Status DC Famotidine (Pepcid Inj) 20 mg Q12HR IV PUSH Last administered on 07/15/16 20: 19; Start 07/15/16 at 21:00; Stop 07/15/16 at 21:24; Status DC Ondansetron HCl (Zofran Inj) 4 mg Q6H PRN IV NAUSEA OR VOMITING Last administered on 07/31/16 13:23; Start 07/15/16 at 19:45; Stop 08/12/16 at 20:17 ; Status DC Metoclopramide HCl (Reglan Inj) 5 mg Q6H PRN IV NAUSEA OR VOMITING Last administered on 09/06/16 21:32; Start 07/15/16 at 19:45 Docusate Sodium (Colace) 100 mg BID PO Last administered on 08/07/16 21:00; Start 07/15/16 at 21:00; Stop 08/08/16 at 22:08; Status DC Albuterol/ Ipratropium (Duoneb Neb) 1 ampule Q2HR NEB PRN INH WHEEZING; Start 07/15/16 at 19:45 Heparin Sodium (Porcine) (Heparin Inj) 5,000 units Q8HR SQ Last administered on 08/28/16 12:46; Start 07/15/16 at 22:00; Stop 09/03/16 at 23:47; Status DC Miscellaneous Information 1 [id number] Last administered on 07/15/16 19:45; Start 07/15/16 at 19:45; Stop 09/04/16 at 03:06; Status DC Chlorhexidine Gluconate (Chlorhexidine 2% Cloth) Taper DAILY@04 TOP Last administered on 07/17/16 03:11; Start 07/16/16 at 04:00; Stop 09/04/16 at 03:06 ; Status DC Chlorhexidine Gluconate (Chlorhexidine 2% Cloth) 3 pack UNSCH PRN TOP HYGIENIC CARE; Start 07/15/16 at 19:45; Stop 09/04/16 at 03:06; Status DC Acetaminophen (Ofirmev Inj) 1,000 mg Q6H PRN IV PAIN SCALE 1 TO 6; Start at 20:00; Stop 07/18/16 at 11:51; Status DC Ketorolac Tromethamine (Toradol Inj) 30 mg Q6H PRN IM PAIN SCALE 1 TO 7; Start 07/15/16 at 20:00; Stop 07/15/16 at 20:10; Status DC Ketorolac Tromethamine (Toradol Inj) 30 mg Q6H PRN IV PUSH PAIN 1-6 Last administered on 07/15/16 20:34; Start 07/15/16 at 20:15; Stop 07/18/16 at 11:51 ; Status DC Carvedilol (Coreg) 25 mg BID PO Last administered on 08/17/16 10:24; Start at 21:00; Stop 08/17/16 at 16:06; Status DC Fluconazole (Diflucan) 75 mg DAILY@17 PO Last administered on 07/16/16 17:03; Start 07/16/16 at 17:00; Stop 07/17/16 at 08:09; Status DC Isosorbide Dinitrate (Isordil) 5 mg Q8HR PO Last administered on 09/02/16 05: 38; Start 07/15/16 at 22:00; Stop 09/03/16 at 23:47; Status DC Lactobacillus Acidophilus (Lactinex) 1 tab TID PO Last administered on 08:32; Start 07/16/16 at 09:00; Stop 08/25/16 at 08:59; Status DC Levofloxacin (Levaquin) 250 mg Q48H PO Last administered on 07/21/16 21:05; Start 07/15/16 at 22:00; Stop 07/23/16 at 16:37; Status DC Levothyroxine Sodium (Synthroid) 150 mcg DAILY@06 PO Last administered on 05:47; Start 07/16/16 at 06:00; Stop 09/09/16 at 17:57; Status DC Liothyronine Sodium (Cytomel) 5 mcg DAILY PO Last administered on 09/15/16 08: 01; Start 07/16/16 at 09:00 Non-Formulary Medication 325 mg DAILY PO ; Start 07/16/16 at 09:00; Status UNV Miscellaneous (Pill Splitter) 1 ea UNSCH PRN OTHER SEE LABEL COMMENTS; Start at 21:30 Famotidine (Pepcid Inj) 10 mg Q12HR IV PUSH Last administered on 07/17/16 07: 29; Start 07/16/16 at 09:00; Stop 07/18/16 at 10:59; Status DC Aspirin (Ecotrin Ec) 325 mg DAILY PO Last administered on 08/25/16 08:30; Start 07/16/16 at 09:00; Stop 08/25/16 at 16:10; Status DC Etomidate (Amidate Inj) 20 mg STK-MED ONCE .ROUTE ; Start 07/16/16 at 17:07; Stop 07/16/16 at 17:08; Status DC Famotidine (Pepcid Inj) 20 mg Q12HR IV PUSH Last administered on 08/12/16 09: 05; Start 07/18/16 at 21:00; Stop 08/12/16 at 20:17; Status DC Hydromorphone HCl (Dilaudid Pf Inj) 0.5 mg ONCE ONCE IV PUSH Last administered on 08/04/16 18:00; Start 07/18/16 at 11:45; Stop 07/18/16 at 11:46 ; Status DC Hydromorphone HCl (Dilaudid Pf Inj) 0.5 mg Q4H PRN IV PUSH breakthrough pain / dresing lori Last administered on 08/31/16 05:32; Start 07/18/16 at 11:45; Stop 09/03/16 at 23:47; Status DC Acetaminophen/ Hydrocodone Bitart ([place] 5-325 Mg) 1 tab Q6H PRN PO pain 2-10 Last administered on 08/12/16 09:04; Start 07/18/16 at 11:45; Stop 08/12/16 at 20:17; Status DC Diphenhydramine HCl 50 mg 50 mg STK-MED ONCE .ROUTE ; Start 07/19/16 at 11:20; Stop 07/19/16 at 11:21; Status DC Levetriacetam/ Sodium Chloride (Keppra Inj/NS Inj) 105 ml @ 420 mls/hr Q12HR IV Last administered on 07/20/16 08:19; Start 07/19/16 at 13:00; Stop at 16:25; Status DC Haloperidol Lactate (Haldol Inj) 2 mg Q6H PRN IM aggittation Last administered on 07/30/16 01:29; Start 07/19/16 at 12:30; Stop 09/03/16 at 23:47; Status DC Lorazepam 1 mg 1 mg Q6H PRN IV PUSH seizures/agiatation Last administered on 06:09; Start 07/19/16 at 12:30; Stop 09/03/16 at 23:47; Status DC Valproate Sodium 500 mg/Sodium Chloride 105 ml @ 105 mls/hr Q8H IV Last administered on 07/25/16 09:26; Start 07/20/16 at 18:00; Stop 07/25/16 at 09:54; Status DC Cefepime HCl/ Sodium Chloride (Maxipime Inj/NS Inj) 100 ml @ 200 mls/hr Q12H IV Last administered on 07/27/16 02:43; Start 07/21/16 at 15:00; Stop 07/27/16 at 09:00; Status DC Dextrose (D50w (Vial) Inj) 25 ml UNSCH PRN IV PUSH HYPOGLYCEMIA-SEE COMMENTS; Start 07/23/16 at 11:00 Glucagon (Glucagon Inj) 1 mg UNSCH PRN OTHER HYPOGLYCEMIA-SEE COMMENTS; Start 07/23/16 at 11:00 Insulin Aspart (NovoLOG SUPPLEMENTAL SCALE) 1 ACHS SLIDING SCALE SQ Last administered on 09/10/16 21:48; Start 07/23/16 at 11:00 Potassium Chloride (KCl) 40 meq ONCE ONCE PO Last administered on 07/24/16 13: 00; Start 07/24/16 at 13:00; Stop 07/24/16 at 13:01; Status DC Valproic Acid (Depakene) 500 mg Q8HR PO Last administered on 07/26/16 14:52; Start 07/25/16 at 15:00; Stop 07/26/16 at 17:39; Status DC Potassium Chloride (KCl) 30 meq ONCE ONCE PO Last administered on 07/26/16 19: 30; Start 07/26/16 at 16:30; Stop 07/26/16 at 16:36; Status DC Potassium Chloride (KCl) 30 meq ONCE ONCE PO Last administered on 07/26/16 22: 16; Start 07/26/16 at 20:00; Stop 07/26/16 at 20:01; Status DC Valproic Acid (Depakene) 250 mg Q12HR PO Last administered on 09/04/16 09:07; Start 07/27/16 at 09:00; Stop 09/04/16 at 16:16; Status DC Hydromorphone HCl (Dilaudid Pf Inj) 0.5 mg ONCE ONCE IV PUSH Last administered on 07/27/16 10:42; Start 07/27/16 at 10:45; Stop 07/27/16 at 10:46; Status DC Valsartan (Diovan) 80 mg HS PO Last administered on 08/19/16 21:58; Start 07/27 at 21:00; Stop 08/20/16 at 18:58; Status DC Enalaprilat (Vasotec Inj) 1.25 mg Q8H PRN IV PUSH SBP >180 OR DBP >100; Start 07/28/16 at 16:00 Fluconazole 100 mg 100 mg DAILY PO Last administered on 08/05/16 11:34; Start 07/30/16 at 09:45; Stop 08/05/16 at 16:53; Status DC Ceftriaxone Sodium/Sodium Chloride (Rocephin Inj/NS Inj) 100 ml @ 200 mls/hr Q24H IV Last administered on 08/01/16 09:45; Start 07/30/16 at 10:00; Stop 03/10 at 11:59; Status DC Potassium Chloride (KCl) 30 meq ONCE ONCE PO Last administered on 07/30/16 12: 12; Start 07/30/16 at 09:45; Stop 07/30/16 at 09:53; Status DC Potassium Chloride (KCl) 30 meq ONCE ONCE PO Last administered on 07/30/16 14: 00; Start 07/30/16 at 14:00; Stop 07/30/16 at 14:01; Status DC Insulin Detemir (Levemir Inj) 5 units HS SQ Last administered on 09/03/16 20: 17; Start 07/30/16 at 21:00; Status Hold Melatonin (Melatonin) 5 mg HS PO Last administered on 09/11/16 20:39; Start at 21:00 Bupivacaine HCl (Marcaine Pf 0.5% Inj) 30 ml STK-MED ONCE .ROUTE ; Start at 10:12; Stop 07/31/16 at 10:13; Status DC Bupivacaine HCl/ Epinephrine Bitart (Sensorcaine-Epi 0.5% 50 ml Inj) 50 ml STK- MED ONCE .ROUTE ; Start 07/31/16 at 10:12; Stop 07/31/16 at 10:13; Status DC Bacitracin (Baciguent Oint) 15 applic STK-MED ONCE .ROUTE ; Start 07/31/16 at 10: 12; Stop 07/31/16 at 10:13; Status DC Dexamethasone Sodium Phosphate (Decadron Inj) 4 mg STK-MED ONCE .ROUTE Last administered on 07/31/16 10:24; Start 07/31/16 at 10:22; Stop 07/31/16 at 10:23; Status DC Famotidine (Pepcid Inj) 20 mg STK-MED ONCE IV PUSH Last administered on 10:23; Start 07/31/16 at 10:23; Stop 07/31/16 at 10:27; Status DC Fentanyl Citrate 500 mcg 500 mcg STK-MED ONCE .ROUTE ; Start 07/31/16 at 12:13; Stop 07/31/16 at 12:14; Status DC Gentamicin Sulfate/Sodium Chloride (Gentamicin Inj/ NS Irr Btl) 1,005 ml @ 0 mls/hr UNSCH PRN IRRIGATION DRESSING CHANGES; Start 07/31/16 at 13:30 Miscellaneous Information ALL NURSING DEPARTME... UNSCH PRN XX SEE LABEL COMMENTS; Start 07/31/16 at 13:30; Stop 08/01/16 at 13:29; Status DC Propofol (Diprivan 200 Mg/20 ml Inj) 200 mg STK-MED ONCE IV ; Start 07/31/16 at 12:42; Stop 08/04/16 at 12:43; Status DC Ephedrine Sulfate (ePHEDrine/NS 25 MG/5 ML SYR) 25 mg STK-MED ONCE IV ; Start at 12:42; Stop 08/04/16 at 12:43; Status DC Phenylephrine HCl (Neosynephrine/ NS 1000 Mcg/10ml Syr) 1,000 mcg STK-MED ONCE IV ; Start 07/31/16 at 12:42; Stop 08/04/16 at 12:43; Status DC Ondansetron HCl (Zofran Inj) 4 mg STK-MED ONCE IV PUSH ; Start 07/31/16 at 12:42 ; Stop 08/04/16 at 12:43; Status DC Prednisone (Deltasone) 50 mg Q6H PO Last administered on 08/08/16t 04:00; Start 08/07/16 at 16:00; Stop 08/08/16 at 04:01; Status DC Diphenhydramine HCl (Benadryl Inj) 50 mg ONCE ONCE IV ; Start 08/07/16 at 16:00 ; Stop 08/07/16 at 16:01; Status DC Midazolam HCl (Versed Inj) 2 mg STK-MED ONCE .ROUTE ; Start 08/08/16 at 08:24; Stop 08/08/16 at 08:25; Status DC Diphenhydramine HCl (Benadryl Inj) 50 mg STK-MED ONCE .ROUTE ; Start 08/08/16 at 08:24; Stop 08/08/16 at 08:25; Status DC Hydrocortisone Sodium Succinate (SoluCORTEF INJ) 100 mg STK-MED ONCE .ROUTE Last administered on 08/08/16 08:52; Start 08/08/16 at 08:50; Stop 08/08/16 at 08:51; Status DC Ketamine HCl (Ketalar Inj) 500 mg STK-MED ONCE .ROUTE ; Start 08/08/16 at 08:59 ; Stop 08/08/16 at 09:00; Status DC Iohexol 100 ml 100 ml STK-MED ONCE OTHER Last administered on 08/08/16 08:50; Start 08/08/16 at 08:50; Stop 08/08/16 at 09:45; Status DC Nitroglycerin/ Dextrose (Nitroglycerin-Dextrose Inj) 250 ml @ As Directed STK- MED ONCE .ROUTE ; Start 08/08/16 at 09:57; Stop 08/08/16 at 09:58; Status DC Iohexol (Omnipaque 300 Inj) 50 ml STK-MED ONCE OTHER Last administered on 10:10; Start 08/08/16 at 10:10; Stop 08/08/16 at 10:31; Status DC Midazolam HCl (Versed Inj) 2 mg STK-MED ONCE .ROUTE ; Start 08/08/16 at 11:01; Stop 08/08/16 at 11:02; Status DC Fentanyl Citrate (fentaNYL INJ) 250 mcg STK-MED ONCE .ROUTE ; Start 08/08/16 at 11:02; Stop 08/08/16 at 11:03; Status DC Fentanyl Citrate (fentaNYL INJ) 100 mcg STK-MED ONCE .ROUTE ; Start 08/08/16 at 11:02; Stop 08/08/16 at 11:03; Status DC Morphine Sulfate (Morphine Inj) 4 mg STK-MED ONCE .ROUTE ; Start 08/08/16 at 11: 03; Stop 08/08/16 at 11:04; Status DC Morphine Sulfate (*morphine INJ PERIprocedure ONLY) 8 mg STK-MED ONCE .ROUTE Last administered on 08/08/16 11:17; Start 08/08/16 at 11:17; Stop 08/08/16 at 11:18; Status DC Miscellaneous Information ALL NURSING DEPARTME... UNSCH PRN XX SEE LABEL COMMENTS; Start 08/08/16 at 12:30; Stop 08/09/16 at 12:29; Status DC Lorazepam (Ativan) 0.25 mg Q12H PRN PO ANXIETY; Start 08/09/16 at 14:00; Stop 08/11/16 at 14:33; Status DC Propofol (Diprivan 200 Mg/20 ml Inj) 800 mg STK-MED ONCE IV ; Start 08/08/16 at 12:00; Stop 08/11/16 at 12:57; Status DC Heparin Sodium (Porcine) (Heparin Inj) 5,000 units STK-MED ONCE OTHER ; Start at 12:00; Stop 08/11/16 at 13:02; Status DC Potassium Chloride (KCl) 10 meq Q8HR PO Last administered on 08/16/16 06:08; Start 08/11/16 at 14:00; Stop 08/16/16 at 13:59; Status DC Clonazepam (KlonoPIN) 0.5 mg Q8HR PO Last administered on 08/12/16 05:29; Start 08/11/16 at 14:45; Stop 08/12/16 at 12:49; Status DC Diphenhydramine HCl (Benadryl) 25 mg ONCE ONCE PO Last administered on 17:50; Start 08/11/16 at 14:45; Stop 08/11/16 at 15:05; Status DC Clonazepam (KlonoPIN) 0.5 mg Q8H PRN PO ANXIETY Last administered on 08/30/16 22:50; Start 08/12/16 at 12:45; Stop 09/03/16 at 23:47; Status DC Gabapentin (Neurontin) 200 mg TID PO Last administered on 08/12/16 14:59; Start 08/12/16 at 13:00; Stop 08/14/16 at 16:07; Status DC Methadone HCl (Dolophine) 2.5 mg Q12HR PO Last administered on 09/01/16 21:49 ; Start 08/12/16 at 21:00; Stop 09/03/16 at 23:47; Status DC Doxycycline Hyclate (Vibratab) 100 mg Q12HR PO Last administered on 08/16/16 22:41; Start 08/12/16 at 22:45; Stop 08/17/16 at 08:21; Status DC Quetiapine Fumarate (SEROquel) 12.5 mg ONCE ONCE PO Last administered on 10:45; Start 08/13/16 at 10:45; Stop 08/13/16 at 10:50; Status DC Quetiapine Fumarate (SEROquel) 12.5 mg BID PO Last administered on 08/13/16 20 :32; Start 08/13/16 at 21:00; Stop 08/14/16 at 12:41; Status DC Gabapentin (Neurontin) 300 mg ONCE ONCE PO Last administered on 08/13/16 11: 00; Start 08/13/16 at 11:00; Stop 08/13/16 at 11:09; Status DC Acetaminophen (Tylenol) 500 mg Q6H PRN PO FEVER >100.4 Last administered on 17:12; Start 08/13/16 at 17:15 Quetiapine Fumarate (SEROquel) 6.25 mg HS PO Last administered on 09/01/16 21: 00; Start 08/14/16 at 21:00; Stop 09/03/16 at 23:47; Status DC Quetiapine Fumarate (SEROquel) 6.25 mg DAILY PRN PO agitated delirium Last administered on 09/01/16 12:37; Start 08/14/16 at 12:45; Stop 09/03/16 at 23:47 ; Status DC Gabapentin (Neurontin) 300 mg TID PO Last administered on 08/15/16 13:25; Start 08/15/16 at 09:00; Stop 08/15/16 at 14:20; Status DC Gabapentin (Neurontin) 400 mg ONCE ONCE PO ; Start 08/14/16 at 16:15; Stop at 16:15; Status DC Gabapentin (Neurontin) 200 mg ONCE ONCE PO Last administered on 08/14/16 17: 00; Start 08/14/16 at 16:30; Stop 08/14/16 at 16:33; Status DC Gabapentin (Neurontin) 400 mg TID PO Last administered on 08/18/16 12:34; Start 08/15/16 at 18:00; Stop 08/18/16 at 13:52; Status DC Mupirocin (Bactroban 2% Oint) 1 applic Q12HR TOPICAL Last administered on 21:00; Start 08/15/16 at 15:00 Hydrocortisone 1 applic 1 applic Q8H TOPICAL Last administered on 09/15/16 03: 46; Start 08/15/16 at 20:00 Levofloxacin/ Dextrose (Levaquin 750 Mg Premix Inj) 150 ml @ 100 mls/hr Q24H IV Last administered on 08/16/16 09:41; Start 08/16/16 at 08:00; Stop at 08:21; Status DC Lactobacillus Acidophilus 1 tab 1 tab TID PO Last administered on 09/15/16 08: 01; Start 08/16/16 at 09:00 Vancomycin HCl 1750 mg/Sodium Chloride 517.5 ml @ 258.75 mls/ hr ONCE ONCE IV Last administered on 08/17/16 10:21; Start 08/17/16 at 10:00; Stop 08/17/16 at 11:59; Status DC Pharmacy Profile Note 0 ml @ 0 mls/hr UNSCH OTHER ; Start 08/17/16 at 08:15; Stop 08/18/16 at 16:18; Status DC Piperacillin Sod/ Tazobactam Sod 50 ml @ 100 mls/hr Q6H IV Last administered on 08/18/16 09:15; Start 08/17/16 at 09:00; Stop 08/18/16 at 13:02; Status DC Sodium Chloride 1,000 ml @ 999 mls/hr BOLUS ONCE IV Last administered on 08/17 08:30; Start 08/17/16 at 08:30; Stop 08/17/16 at 09:30; Status DC Sodium Chloride 1,000 ml @ 200 mls/hr Q5H IV ; Start 08/17/16 at 09:00; Stop at 18:59; Status DC Vancomycin HCl/ Sodium Chloride (Vancomycin Inj/ NS 250 ml Inj) 250 ml @ 250 mls/hr Q12H IV Last administered on 08/18/16 12:33; Start 08/17/16 at 22:00; Stop 08/18/16 at 16:31; Status DC Miscellaneous Information SPECIFIC LAB TO BE ... ONCE ONCE XX ; Start at 21:45; Stop 08/18/16 at 21:45; Status DC Olanzapine 10 mg 10 mg Q12H PRN IM acute agitation; Start 08/17/16 at 16:15; Stop 08/19/16 at 16:14; Status DC Levofloxacin/ Dextrose 150 ml @ 100 mls/hr Q24H IV ; Start 08/18/16 at 09:00; Stop 08/18/16 at 09:00; Status DC Levofloxacin/ Dextrose (Levaquin 750 Mg Premix Inj) 150 ml @ 100 mls/hr Q48H IV Last administered on 08/18/16 09:54; Start 08/18/16 at 09:00; Stop at 13:02; Status DC Miscellaneous Medication (ASP Crit: Doc ESBL, MDR A baumannii or P aer) 1 UNSCH X1 PRN XX PHARMACY DOCUMENTATION; Start 08/18/16 at 13:00; Stop 08/19/16 at 12: 59; Status DC Miscellaneous Medication 1 1 UNSCH X1 PRN XX PHARMACY DOCUMENTATION; Start at 13:00; Stop 08/19/16 at 12:59; Status DC Meropenem/Sodium Chloride (Merrem Inj/NS Inj) 100 ml @ 200 mls/hr Q8H IV Last administered on 08/21/16 06:14; Start 08/18/16 at 14:00; Stop 08/21/16 at 07:36 ; Status DC Gabapentin 600 mg 600 mg TID PO Last administered on 09/01/16 18:44; Start at 18:00; Stop 09/02/16 at 21:42; Status DC Sodium Chloride 1,000 ml @ 150 mls/hr Q6H40M IV Last administered on 17:44; Start 08/18/16 at 15:30; Stop 08/20/16 at 17:43; Status DC Sodium Chloride (NS 250 ml Inj) 250 ml @ 15 mls/hr ONCE ONCE IV Last administered on 08/19/16 06:34; Start 08/18/16 at 16:45; Stop 08/19/16 at 09:24 ; Status DC Acetaminophen (Tylenol) 650 mg Q4H PRN PO SEE LABEL COMMENTS; Start 08/18/16 at 16:45; Stop 08/18/16 at 20:46; Status DC Diphenhydramine HCl 25 mg 25 mg Q4H PRN PO SEE LABEL COMMENTS; Start 08/18/16 at 16:45; Stop 08/18/16 at 20:46; Status DC Linezolid (Zyvox 600 Mg Premix) 300 ml @ 300 mls/hr Q12H IV Last administered on 08/20/16 22:54; Start 08/19/16 at 08:00; Stop 08/21/16 at 07:36; Status DC Albumin Human (Albumin 25% Inj) 12.5 gm Q8H IV Last administered on 08/22/16 11:31; Start 08/20/16 at 20:00; Stop 08/22/16 at 13:51; Status DC Bumetanide (Bumex Inj) 1 mg Q8H IV PUSH Last administered on 08/22/16 12:44; Start 08/20/16 at 20:00; Stop 08/22/16 at 13:51; Status DC Metronidazole (Flagyl) 500 mg Q6HR PO ; Start 08/21/16 at 09:00; Stop 08/21/16 at 09:00; Status DC Vancomycin HCl (VANCOMYCIN for oral use only) 500 mg QID PO Last administered on 08/25/16 12:22; Start 08/21/16 at 09:00; Stop 08/25/16 at 13:53; Status DC Chlorothiazide Sodium (Diuril Inj) 250 mg ONCE ONCE IV Last administered on 21:03; Start 08/21/16 at 20:00; Stop 08/21/16 at 20:01; Status DC Potassium Phos/ Sodium Phos (K-Phos Neutral) 250 mg BID PO Last administered on 08/22/16 07:41; Start 08/21/16 at 21:00; Stop 08/22/16 at 20:59; Status DC Bumetanide (Bumetanide) 1 mg DAILY PO Last administered on 09/01/16 08:18; Start 08/23/16 at 09:00; Stop 09/03/16 at 23:47; Status DC Potassium Chloride (KCl) 20 meq ONCE ONCE PO Last administered on 08/22/16 14 :23; Start 08/22/16 at 14:00; Stop 08/22/16 at 14:01; Status DC Valsartan (Diovan) 40 mg DAILY PO Last administered on 09/01/16 08:18; Start 08/23/16 at 09:00; Stop 09/03/16 at 23:47; Status DC Vancomycin HCl (VANCOMYCIN for oral use only) 125 mg QID PO Last administered on 09/09/16 12:29; Start 08/25/16 at 18:00; Stop 09/09/16 at 17:59; Status DC Lorazepam (Ativan Inj) 0.5 mg UNSCH X1 IV Last administered on 08/25/16 18:32 ; Start 08/25/16 at 17:00; Stop 08/25/16 at 23:00; Status DC Diphenhydramine HCl (Benadryl) 25 mg ONCE ONCE PO Last administered on 22:15; Start 08/26/16 at 22:00; Stop 08/26/16 at 22:01; Status DC Lorazepam (Ativan Inj) 1 mg ONCE ONCE IV PUSH Last administered on 08/29/16 17 :10; Start 08/29/16 at 17:00; Stop 08/29/16 at 17:01; Status DC Hydromorphone HCl (Dilaudid Pf Inj) 0.5 mg ONCE ONCE IV PUSH Last administered on 08/29/16 17:11; Start 08/29/16 at 17:00; Stop 08/29/16 at 17:01; Status DC Olanzapine 5 mg 5 mg HS PO Last administered on 09/01/16 21:49; Start 08/30/16 at 21:15; Stop 09/03/16 at 23:47; Status DC Potassium Chloride/Lactated Ringer's (KCl Inj/Lr 1000 ml Inj) 1,010 ml @ 42 mls /hr Q24H IV Last administered on 09/10/16 07:14; Start 09/02/16 at 00:00; Stop 09/12/16 at 20:35; Status DC Vancomycin HCl (Vancomycin Inj) 1,000 mg STK-MED ONCE OTHER Last administered on 09/02/16 16:51; Start 09/02/16 at 16:51; Stop 09/02/16 at 16:59; Status DC Morphine Sulfate (Morphine Inj) 2 mg Q4HR PRN IM Pain 1-10 Last administered on 09/11/16 11:27; Start 09/03/16 at 16:15 Haloperidol Lactate (Haldol Inj) 1 mg Q6H PRN IM Psychosis, delirium Last administered on 09/04/16 09:17; Start 09/03/16 at 16:15; Status Hold Heparin Sodium (Porcine) (Heparin Inj) 5,000 units Q12HR SQ Last administered on 09/09/16 21:39; Start 09/04/16 at 09:00; Stop 09/10/16 at 07:38; Status DC Dronabinol (Marinol) 2.5 mg BID@11,16 PO Last administered on 09/10/16 13:54; Start 09/05/16 at 11:00 Dronabinol (Marinol) 2.5 mg ONCE ONCE PO Last administered on 09/04/16 21:51 ; Start 09/04/16 at 17:15; Stop 09/04/16 at 17:17; Status DC Aspirin (Ecotrin Ec) 81 mg DAILY PO Last administered on 09/15/16 08:01; Start 09/05/16 at 09:00 Carvedilol (Coreg) 3.125 mg Q12HR PO Last administered on 09/15/16 08:01; Start 09/05/16 at 09:00 Lorazepam (Ativan Inj) 0.5 mg DIRECTOR RECREATION ONCE IV PUSH ; Start 09/06/16 at 18:15; Stop 09/06/16 at 18:30; Status DC Atorvastatin Calcium (Lipitor) 80 mg HS PO Last administered on 09/14/16 20:57 ; Start 09/06/16 at 21:00 Lorazepam (Ativan Inj) 0.5 mg DIRECTOR RECREATION ONCE IV PUSH Last administered on 20:08; Start 09/07/16 at 20:15; Stop 09/07/16 at 20:16; Status DC Gadodiamide (Omniscan Pf Inj) 16 ml STK-MED ONCE IV Last administered on 20:45; Start 09/07/16 at 20:45; Stop 09/07/16 at 20:46; Status DC Lorazepam 0.5 mg 0.5 mg ONCE ONCE IV PUSH ; Start 09/08/16 at 13:00; Stop 09/08 at 13:01; Status DC Thiamine HCl/ Sodium Chloride (Thiamine Inj/NS Inj) 101 ml @ 101 mls/hr DAILY IV Last administered on 09/15/16 09:17; Start 09/09/16 at 10:00 Propofol (Diprivan 200 Mg/20 ml Inj) 200 mg STK-MED ONCE IV ; Start 09/02/16 at 12:00; Stop 09/09/16 at 13:30; Status DC Ephedrine Sulfate (ePHEDrine/NS 25 MG/5 ML SYR) 25 mg STK-MED ONCE IV ; Start at 12:00; Stop 09/09/16 at 13:30; Status DC Phenylephrine HCl (Neosynephrine/ NS 1000 Mcg/10ml Syr) 1,000 mcg STK-MED ONCE IV ; Start 09/02/16 at 12:00; Stop 09/09/16 at 13:30; Status DC Ondansetron HCl 4 mg 4 mg STK-MED ONCE IV PUSH ; Start 09/02/16 at 12:00; Stop 09/09/16 at 13:30; Status DC Sodium Chloride 250 ml @ As Directed STK-MED ONCE IV ; Start 09/02/16 at 12:00 ; Stop 09/09/16 at 13:30; Status DC Parenteral Electrolytes (Normosol R Inj) 1,000 ml @ As Directed STK-MED ONCE IV ; Start 09/02/16 at 12:00; Stop 09/09/16 at 13:30; Status DC Levothyroxine Sodium (Synthroid) 175 mcg DAILY@06 PO ; Start 09/10/16 at 06:00; Status UNV Levothyroxine Sodium (Synthroid) 150 mcg DAILY@06 PO Last administered on 06:38; Start 09/10/16 at 06:00 Levothyroxine Sodium (Synthroid) 25 mcg DAILY@06 PO Last administered on 06:38; Start 09/10/16 at 06:00 Fentanyl Citrate (fentaNYL INJ) 100 mcg STK-MED ONCE IV ; Start 09/02/16 at 12: 00; Stop 09/10/16 at 12:44; Status DC Diphenhydramine HCl (Benadryl 2% Cream) 1 applic TID PRN TOPICAL ITCHING; Start 09/14/16 at 14:00 A/P Assessment and Plan A/P -s/p right AKA for nonhealing ischemic wound. Stump well healing. management per Dr. Taylor. - Peripheral vascular disease with nonhealing left lower extremity wound with necrotic tendon, several necrotic toes-status post consultation with 3 vascular surgeons, plastic surgery, volunteer services assistant. family declines amputation. topical hyperbaric oxygen therapy (numo bag) purchased by family. this therapy can be given in hospital or at home, but is not FDA approved. [facility] is currently not accepting the patient due to the family requesting numo bag, as well as the issue with wound healing. - Severe neuropathic pain - continue Neurontin. -Severe acute metabolic encephalopathy- continues to improve -exhaustive workup has been performed including initial LP which showed pleocytosis with lymphocyte predominance, see previous notes - Appreciate input from neurology, hematology, palliative care - EEG 09/04 -moderate encephalopathy. -MRI brain with and without contrast 09/07 negative -2nd neuro opinion (requested per family) with Dr. Bauer appreciated, family declines repeat LP as patient improving - C. Diff colitis, s/p treatment with vancomycin. ID/Dr. Quispe. - UTI - Microbiology grew ESBL -now treated. -Diabetes mellitus type II, currently with good Accu-Chek reads- Coverage with SSI. Monitor Accu-Cheks. Monitor for hypoglycemia. -Hypothyroidism - TSH on 09/08 22, Free T3 low at 0.72, free T4 nml. increased levothyroxine 150 g ->175. repeat TSH in several weeks. - Hypertension - Cardiomyopathy - EF 3540% -Continue carvedilol low dose. will consider JOYCE inhibitor if blood pressure will tolerate and renal function remained stable. currently normotensive. S/p cardiology eval. -Acute kidney injury, resolved. -Chronic kidney disease stage III. Improved, creatinine stable around 1. repeat labs in a.m. -Severe malnutrition - dietary consult noted. Prealbumin is 7. Hopefully patient's by mouth intake will improve as she improves mental status. Consulted GI for eval for possible PEG tube. Started Marinol to stimulate appetite. Daughter Blanche wants to give the patient several days for improvement prior to considering PEG tube. Continue ensure, add multivitamin. - Abnormal uterine appearance - seen on abdominal and pelvis CT -pelvic ultrasound showing prominent endometrium, tumor markers negative, no history of vaginal bleeding -Heme on consult was requested per oncology service. Consider endometrial biopsy as outpatient. MRI abdomen canceled per family (did not want her sedated) . Anemia of chronic illness - stable, monitor transfuse prn Hb<7. Full code. Heparin SQ. Discharge Planning difficult discharge. d/w the case management today; [facility] is not accepting the patient since there will be no vascular surgery available. no accepting facility yet. called the daughter and gave her an update. Conrad Clancy MD Sep 15, 2016 11:48
[2016-09-15 12:00] VITALS: BP 136/63; PULSE 81; RESP 16; TEMP 97.3; O2SAT 100
[2016-09-15] MEDS: MUPIROCIN 2% OINT 22 GM TUBE TOPICAL SCH ×2 (12:33→21:00)
--- NOTE | 2016-09-15 14:38 | HHI.HCPN ---
Met with Bailee Ghoshrichelle. She is alert, oriented, and able to make her needs known. Remains pleasant throughout conversation. Reports she is feeling well but verbalizes some confusion remembering past events in recent days. Reports she had a good weekend. Requesting to be evaluated and work with occupational therapy (main concern is change in handwriting). Discussed health care surrogate and living will. She opted to complete health care surrogate today but did not wish to complete a living will. Health care surrogate appointed is her daughter Tanisha Card [phone]. She did not wish to add additional instructions or appoint alternate surrogate. Encouraged her to speak with daughter regarding her wishes and review living will as resource for discussions. Will be available to assist as needed. Palliative care will continue to follow throughout hospitalization. Radha Holcomb, TELEPHONE INTERCEPTOR OPERATOR Sep 15, 2016 14:38
[2016-09-15 16:00] VITALS: BP 124/58; PULSE 78; RESP 16; TEMP 98; O2SAT 100
[2016-09-15 20:00] VITALS: BP 125/59; PULSE 85; RESP 18; TEMP 97.5; O2SAT 96
[2016-09-15] MEDS: ATORVASTATIN 80 MG TAB PO SCH (21:00)
[2016-09-15] MEDS: MELATONIN 5 MG TAB PO SCH (21:03)
[2016-09-16] VITALS (7 sets, daily range): BP systolic 111–131; BP diastolic 53–62; PULSE 74–85; RESP 18–20; TEMP 97.6–98.3; O2SAT 95–97
[2016-09-16] MEDS: HYDROCORTISONE 1% CREAM 30 GM TOPICAL SCH ×3 (04:00→20:00)
[2016-09-16] MEDS: INSULIN ASPART SUPPLEMENTAL SCALE SQ SCH ×4 (05:38→21:00)
[2016-09-16] MEDS: LEVOTHYROXINE SODIUM 150 MCG TAB PO SCH (05:38)
[2016-09-16] MEDS: LEVOTHYROXINE SODIUM 25 MCG TAB PO SCH (05:38)
[2016-09-16] MEDS: LIOTHYRONINE SODIUM 5 MCG TAB PO SCH (08:34)
[2016-09-16] MEDS: ASPIRIN EC 81 MG TABEC PO SCH (08:35)
[2016-09-16] MEDS: CARVEDILOL 3.125 MG TAB PO SCH ×2 (08:35→21:03)
[2016-09-16] MEDS: THIAMINE INJ 100 MG in SODIUM CHLORIDE 0.9% INJ 100 ML IV SCH (08:39)
[2016-09-16] MEDS: SODIUM CHLORIDE 0.9% FLUSH 5 ML FLUSH IV FLUSH SCH ×2 (08:45→21:00)
[2016-09-16] MEDS: MUPIROCIN 2% OINT 22 GM TUBE TOPICAL SCH ×2 (09:00→21:00)
[2016-09-16] MEDS: LACTOBACILLUS ACIDOPHILUS TAB PO SCH ×3 (09:00→17:10)
--- NOTE | 2016-09-16 09:36 | HHI.PR ---
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 has some pain to the right stump. no fever. has some itching on the rash on the right neck. no other new complaints. Objective Vitals Vital Signs Date Time Temp Pulse Resp B/P Pulse Ox O2 Delivery O2 Flow Rate FiO2 09/16/16 04:00 98.0 74 18 116/54 96 09/16/16 00:00 98.2 81 18 111/53 95 09/15/16 20:00 97.5 85 18 125/59 96 09/15/16 20:00 Room Air 09/15/16 20:00 85 09/15/16 16:00 98.0 78 16 124/58 100 09/15/16 12:00 97.3 81 16 136/63 100 09/15/16 09:50 Room Air I/O 09/15/16 09/15/16 09/15/16 09/16/16 09/16/16 09/16/16 07:00 15:00 23:00 07:00 15:00 23:00 Intake Total 0 ml 240 ml 240 ml 240 ml Output Total 450 ml Balance 0 ml -210 ml 240 ml 240 ml Intake Oral 0 ml 240 ml 240 ml 240 ml Output Urine Total 450 ml # Voids 1 1 0 # Bowel Movements 2 1 0 0 Result Diagram: 09/13/16 0632 09/13/16 0632 Imaging Last Impressions Brain MRI 09/07/16 0000 Signed Impressions: Service Date/Time: Wednesday, September 07, 2016 20:26 - CONCLUSION: 1. No acute findings. No significant change from August 25, 2016. No abnormal enhancement post contrast. Mild chronic white matter ischemic changes. Rolando Sharif MD Pelvis Ultrasound 09/05/16 0000 Signed Impressions: Service Date/Time: Monday, September 05, 2016 19:53 - CONCLUSION: Enlarged uterus with prominence of the endometrium. Alfredo Etienne MD Chest CT 09/05/16 0000 Signed Impressions: Service Date/Time: Monday, September 05, 2016 08:47 - CONCLUSION: 1. No worrisome masses. Please see above. 2. Dilatation of the aorta 4.3 cm. 3. Atherosclerosis. Addy Hillman MD Abdomen/Pelvis CT 09/05/16 0000 Signed Impressions: Service Date/Time: Monday, September 05, 2016 08:47 - CONCLUSION: 1. Fat containing umbilical hernias. 2. Extensive atherosclerosis. 3. Indeterminate low-density lesion in the liver, incompletely characterized without contrast. 4. Basilar air space disease and atelectasis with small pericardial effusion. 5. Abnormal appearance of the uterus as described above. A pelvic ultrasound will be helpful for further assessment on a nonemergent outpatient basis. Addy Hillman MD Lumbar Puncture Fluoroscopy 08/29/16 0000 Signed Impressions: Service Date/Time: Monday, August 29, 2016 16:39 - CONCLUSION: Uncomplicated fluoroscopically guided lumbar puncture with pressures as above. Alfredo Etienne MD Chest X-Ray 08/19/16 0000 Signed Impressions: Service Date/Time: Friday, August 19, 2016 18:46 - CONCLUSION: 1. Bibasilar streakiness consistent with atelectasis and/or infiltrates. 2. Cardiomegaly. 3. Poor inspiratory result. Shamar Banuelos MD Upper Extremity Ultrasound 07/28/16 0000 Signed Impressions: Service Date/Time: Thursday, July 28, 2016 14:34 - CONCLUSION: No DVT is identified within the right upper extremity. Alfredo Eng MD Head CT 07/19/16 0000 Signed Impressions: Service Date/Time: Tuesday, July 19, 2016 09:58 - CONCLUSION: No acute intracranial findings. João Otoole MD Foot X-Ray 07/16/16 0000 Signed Impressions: Service Date/Time: Saturday, July 16, 2016 17:34 - CONCLUSION: 1. Nonspecific soft tissue swelling. No acute bone destruction demonstrated. 2. Mild talonavicular and navicular/cuneiform degenerative changes. 3. Second through fifth hammertoe. 4. Moderate-sized heel spur. Alfredo Sneed MD Objective Remarks GENERAL: in no apparent distress. CARDIOVASCULAR: Regular rate and irregular rhythm without murmurs, gallops, or rubs. RESPIRATORY: Clear to auscultation. Breath sounds equal bilaterally. No wheezes , rales, or rhonchi. GASTROINTESTINAL: Abdomen soft, non-tender, nondistended. 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 NEURO: awake and alert Procedures 08/08/2016 PROCEDURE 1. Selective right lower extremity arteriogram. 2. Balloon angioplasty with a 4 mm x 2200 mm and then a 5 x 200 mm [employer] angioplasty balloon of the right superficial femoral and proximal popliteal artery. 07/31/2016 Excision and debridement of both legs, extensive necrotic wounds approximately 30 x 25 cm area on each side, total 1000 to 1100 cm square, down to the subcutaneous tissue and tendon on the left side. 09/03/2016 Right [id number] amputation Medications and IVs Current Medications Sodium Chloride (NS 1000 ml Inj) 1,000 ml @ 84 mls/hr [id number] IV Last administered on 08/05/16 16:12; Start 07/15/16 at 19:42; Stop 08/18/16 at 15:34 ; Status DC IV Flush (NS Flush) 2 ml UNSCH PRN IV FLUSH FLUSH AFTER USING IV ACCESS Last administered on 08/12/16 05:30; Start 07/15/16 at 19:45 IV Flush (NS Flush) 2 ml BID IV FLUSH Last administered on 09/16/16 08:45; Start 07/15/16 at 21:00 Fentanyl Citrate (fentaNYL INJ) 50 mcg Q3H PRN IV PUSH Pain scale 7-10 &/or sedation Last administered on 07/15/16 21:44; Start 07/15/16 at 19:45; Stop at 11:51; Status DC Famotidine (Pepcid Inj) 20 mg Q12HR IV PUSH Last administered on 07/15/16 20: 19; Start 07/15/16 at 21:00; Stop 07/15/16 at 21:24; Status DC Ondansetron HCl (Zofran Inj) 4 mg Q6H PRN IV NAUSEA OR VOMITING Last administered on 07/31/16 13:23; Start 07/15/16 at 19:45; Stop 08/12/16 at 20:17 ; Status DC Metoclopramide HCl (Reglan Inj) 5 mg Q6H PRN IV NAUSEA OR VOMITING Last administered on 09/06/16 21:32; Start 07/15/16 at 19:45 Docusate Sodium (Colace) 100 mg BID PO Last administered on 08/07/16 21:00; Start 07/15/16 at 21:00; Stop 08/08/16 at 22:08; Status DC Albuterol/ Ipratropium (Duoneb Neb) 1 ampule Q2HR NEB PRN INH WHEEZING; Start 07/15/16 at 19:45 Heparin Sodium (Porcine) (Heparin Inj) 5,000 units Q8HR SQ Last administered on 08/28/16 12:46; Start 07/15/16 at 22:00; Stop 09/03/16 at 23:47; Status DC Miscellaneous Information 1 [id number] Last administered on 07/15/16 19:45; Start 07/15/16 at 19:45; Stop 09/04/16 at 03:06; Status DC Chlorhexidine Gluconate (Chlorhexidine 2% Cloth) Taper DAILY@04 TOP Last administered on 07/17/16 03:11; Start 07/16/16 at 04:00; Stop 09/04/16 at 03:06 ; Status DC Chlorhexidine Gluconate (Chlorhexidine 2% Cloth) 3 pack UNSCH PRN TOP HYGIENIC CARE; Start 07/15/16 at 19:45; Stop 09/04/16 at 03:06; Status DC Acetaminophen (Ofirmev Inj) 1,000 mg Q6H PRN IV PAIN SCALE 1 TO 6; Start at 20:00; Stop 07/18/16 at 11:51; Status DC Ketorolac Tromethamine (Toradol Inj) 30 mg Q6H PRN IM PAIN SCALE 1 TO 7; Start 07/15/16 at 20:00; Stop 07/15/16 at 20:10; Status DC Ketorolac Tromethamine (Toradol Inj) 30 mg Q6H PRN IV PUSH PAIN 1-6 Last administered on 07/15/16 20:34; Start 07/15/16 at 20:15; Stop 07/18/16 at 11:51 ; Status DC Carvedilol (Coreg) 25 mg BID PO Last administered on 08/17/16 10:24; Start at 21:00; Stop 08/17/16 at 16:06; Status DC Fluconazole (Diflucan) 75 mg DAILY@17 PO Last administered on 07/16/16 17:03; Start 07/16/16 at 17:00; Stop 07/17/16 at 08:09; Status DC Isosorbide Dinitrate (Isordil) 5 mg Q8HR PO Last administered on 09/02/16 05: 38; Start 07/15/16 at 22:00; Stop 09/03/16 at 23:47; Status DC Lactobacillus Acidophilus (Lactinex) 1 tab TID PO Last administered on 08:32; Start 07/16/16 at 09:00; Stop 08/25/16 at 08:59; Status DC Levofloxacin (Levaquin) 250 mg Q48H PO Last administered on 07/21/16 21:05; Start 07/15/16 at 22:00; Stop 07/23/16 at 16:37; Status DC Levothyroxine Sodium (Synthroid) 150 mcg DAILY@06 PO Last administered on 05:47; Start 07/16/16 at 06:00; Stop 09/09/16 at 17:57; Status DC Liothyronine Sodium (Cytomel) 5 mcg DAILY PO Last administered on 09/16/16 08: 34; Start 07/16/16 at 09:00 Non-Formulary Medication 325 mg DAILY PO ; Start 07/16/16 at 09:00; Status UNV Miscellaneous (Pill Splitter) 1 ea UNSCH PRN OTHER SEE LABEL COMMENTS; Start at 21:30 Famotidine (Pepcid Inj) 10 mg Q12HR IV PUSH Last administered on 07/17/16 07: 29; Start 07/16/16 at 09:00; Stop 07/18/16 at 10:59; Status DC Aspirin (Ecotrin Ec) 325 mg DAILY PO Last administered on 08/25/16 08:30; Start 07/16/16 at 09:00; Stop 08/25/16 at 16:10; Status DC Etomidate (Amidate Inj) 20 mg STK-MED ONCE .ROUTE ; Start 07/16/16 at 17:07; Stop 07/16/16 at 17:08; Status DC Famotidine (Pepcid Inj) 20 mg Q12HR IV PUSH Last administered on 08/12/16 09: 05; Start 07/18/16 at 21:00; Stop 08/12/16 at 20:17; Status DC Hydromorphone HCl (Dilaudid Pf Inj) 0.5 mg ONCE ONCE IV PUSH Last administered on 08/04/16 18:00; Start 07/18/16 at 11:45; Stop 07/18/16 at 11:46 ; Status DC Hydromorphone HCl (Dilaudid Pf Inj) 0.5 mg Q4H PRN IV PUSH breakthrough pain / dresing lori Last administered on 08/31/16 05:32; Start 07/18/16 at 11:45; Stop 09/03/16 at 23:47; Status DC Acetaminophen/ Hydrocodone Bitart ([place] 5-325 Mg) 1 tab Q6H PRN PO pain 2-10 Last administered on 08/12/16 09:04; Start 07/18/16 at 11:45; Stop 08/12/16 at 20:17; Status DC Diphenhydramine HCl 50 mg 50 mg STK-MED ONCE .ROUTE ; Start 07/19/16 at 11:20; Stop 07/19/16 at 11:21; Status DC Levetriacetam/ Sodium Chloride (Keppra Inj/NS Inj) 105 ml @ 420 mls/hr Q12HR IV Last administered on 07/20/16 08:19; Start 07/19/16 at 13:00; Stop at 16:25; Status DC Haloperidol Lactate (Haldol Inj) 2 mg Q6H PRN IM aggittation Last administered on 07/30/16 01:29; Start 07/19/16 at 12:30; Stop 09/03/16 at 23:47; Status DC Lorazepam 1 mg 1 mg Q6H PRN IV PUSH seizures/agiatation Last administered on 06:09; Start 07/19/16 at 12:30; Stop 09/03/16 at 23:47; Status DC Valproate Sodium 500 mg/Sodium Chloride 105 ml @ 105 mls/hr Q8H IV Last administered on 07/25/16 09:26; Start 07/20/16 at 18:00; Stop 07/25/16 at 09:54; Status DC Cefepime HCl/ Sodium Chloride (Maxipime Inj/NS Inj) 100 ml @ 200 mls/hr Q12H IV Last administered on 07/27/16 02:43; Start 07/21/16 at 15:00; Stop 07/27/16 at 09:00; Status DC Dextrose (D50w (Vial) Inj) 25 ml UNSCH PRN IV PUSH HYPOGLYCEMIA-SEE COMMENTS; Start 07/23/16 at 11:00 Glucagon (Glucagon Inj) 1 mg UNSCH PRN OTHER HYPOGLYCEMIA-SEE COMMENTS; Start 07/23/16 at 11:00 Insulin Aspart (NovoLOG SUPPLEMENTAL SCALE) 1 ACHS SLIDING SCALE SQ Last administered on 09/10/16 21:48; Start 07/23/16 at 11:00 Potassium Chloride (KCl) 40 meq ONCE ONCE PO Last administered on 07/24/16 13: 00; Start 07/24/16 at 13:00; Stop 07/24/16 at 13:01; Status DC Valproic Acid (Depakene) 500 mg Q8HR PO Last administered on 07/26/16 14:52; Start 07/25/16 at 15:00; Stop 07/26/16 at 17:39; Status DC Potassium Chloride (KCl) 30 meq ONCE ONCE PO Last administered on 07/26/16 19: 30; Start 07/26/16 at 16:30; Stop 07/26/16 at 16:36; Status DC Potassium Chloride (KCl) 30 meq ONCE ONCE PO Last administered on 07/26/16 22: 16; Start 07/26/16 at 20:00; Stop 07/26/16 at 20:01; Status DC Valproic Acid (Depakene) 250 mg Q12HR PO Last administered on 09/04/16 09:07; Start 07/27/16 at 09:00; Stop 09/04/16 at 16:16; Status DC Hydromorphone HCl (Dilaudid Pf Inj) 0.5 mg ONCE ONCE IV PUSH Last administered on 07/27/16 10:42; Start 07/27/16 at 10:45; Stop 07/27/16 at 10:46; Status DC Valsartan (Diovan) 80 mg HS PO Last administered on 08/19/16 21:58; Start 07/27 at 21:00; Stop 08/20/16 at 18:58; Status DC Enalaprilat (Vasotec Inj) 1.25 mg Q8H PRN IV PUSH SBP >180 OR DBP >100; Start 07/28/16 at 16:00 Fluconazole 100 mg 100 mg DAILY PO Last administered on 08/05/16 11:34; Start 07/30/16 at 09:45; Stop 08/05/16 at 16:53; Status DC Ceftriaxone Sodium/Sodium Chloride (Rocephin Inj/NS Inj) 100 ml @ 200 mls/hr Q24H IV Last administered on 08/01/16 09:45; Start 07/30/16 at 10:00; Stop 03/10 at 11:59; Status DC Potassium Chloride (KCl) 30 meq ONCE ONCE PO Last administered on 07/30/16 12: 12; Start 07/30/16 at 09:45; Stop 07/30/16 at 09:53; Status DC Potassium Chloride (KCl) 30 meq ONCE ONCE PO Last administered on 07/30/16 14: 00; Start 07/30/16 at 14:00; Stop 07/30/16 at 14:01; Status DC Insulin Detemir (Levemir Inj) 5 units HS SQ Last administered on 09/03/16 20: 17; Start 07/30/16 at 21:00; Status Hold Melatonin (Melatonin) 5 mg HS PO Last administered on 09/15/16 21:03; Start at 21:00 Bupivacaine HCl (Marcaine Pf 0.5% Inj) 30 ml STK-MED ONCE .ROUTE ; Start at 10:12; Stop 07/31/16 at 10:13; Status DC Bupivacaine HCl/ Epinephrine Bitart (Sensorcaine-Epi 0.5% 50 ml Inj) 50 ml STK- MED ONCE .ROUTE ; Start 07/31/16 at 10:12; Stop 07/31/16 at 10:13; Status DC Bacitracin (Baciguent Oint) 15 applic STK-MED ONCE .ROUTE ; Start 07/31/16 at 10: 12; Stop 07/31/16 at 10:13; Status DC Dexamethasone Sodium Phosphate (Decadron Inj) 4 mg STK-MED ONCE .ROUTE Last administered on 07/31/16 10:24; Start 07/31/16 at 10:22; Stop 07/31/16 at 10:23; Status DC Famotidine (Pepcid Inj) 20 mg STK-MED ONCE IV PUSH Last administered on 3/9/ 17at 10:23; Start 07/31/16 at 10:23; Stop 07/31/16 at 10:27; Status DC Fentanyl Citrate 500 mcg 500 mcg STK-MED ONCE .ROUTE ; Start 07/31/16 at 12:13; Stop 07/31/16 at 12:14; Status DC Gentamicin Sulfate/Sodium Chloride (Gentamicin Inj/ NS Irr Btl) 1,005 ml @ 0 mls/hr UNSCH PRN IRRIGATION DRESSING CHANGES; Start 07/31/16 at 13:30 Miscellaneous Information ALL NURSING DEPARTME... UNSCH PRN XX SEE LABEL COMMENTS; Start 07/31/16 at 13:30; Stop 08/01/16 at 13:29; Status DC Propofol (Diprivan 200 Mg/20 ml Inj) 200 mg STK-MED ONCE IV ; Start 07/31/16 at 12:42; Stop 08/04/16 at 12:43; Status DC Ephedrine Sulfate (ePHEDrine/NS 25 MG/5 ML SYR) 25 mg STK-MED ONCE IV ; Start at 12:42; Stop 08/04/16 at 12:43; Status DC Phenylephrine HCl (Neosynephrine/ NS 1000 Mcg/10ml Syr) 1,000 mcg STK-MED ONCE IV ; Start 07/31/16 at 12:42; Stop 08/04/16 at 12:43; Status DC Ondansetron HCl (Zofran Inj) 4 mg STK-MED ONCE IV PUSH ; Start 07/31/16 at 12:42 ; Stop 08/04/16 at 12:43; Status DC Prednisone (Deltasone) 50 mg Q6H PO Last administered on 08/08/16t 04:00; Start 08/07/16 at 16:00; Stop 08/08/16 at 04:01; Status DC Diphenhydramine HCl (Benadryl Inj) 50 mg ONCE ONCE IV ; Start 08/07/16 at 16:00 ; Stop 08/07/16 at 16:01; Status DC Midazolam HCl (Versed Inj) 2 mg STK-MED ONCE .ROUTE ; Start 08/08/16 at 08:24; Stop 08/08/16 at 08:25; Status DC Diphenhydramine HCl (Benadryl Inj) 50 mg STK-MED ONCE .ROUTE ; Start 08/08/16 at 08:24; Stop 08/08/16 at 08:25; Status DC Hydrocortisone Sodium Succinate (SoluCORTEF INJ) 100 mg STK-MED ONCE .ROUTE Last administered on 08/08/16 08:52; Start 08/08/16 at 08:50; Stop 08/08/16 at 08:51; Status DC Ketamine HCl (Ketalar Inj) 500 mg STK-MED ONCE .ROUTE ; Start 08/08/16 at 08:59 ; Stop 08/08/16 at 09:00; Status DC Iohexol 100 ml 100 ml STK-MED ONCE OTHER Last administered on 08/08/16 08:50; Start 08/08/16 at 08:50; Stop 08/08/16 at 09:45; Status DC Nitroglycerin/ Dextrose (Nitroglycerin-Dextrose Inj) 250 ml @ As Directed STK- MED ONCE .ROUTE ; Start 08/08/16 at 09:57; Stop 08/08/16 at 09:58; Status DC Iohexol (Omnipaque 300 Inj) 50 ml STK-MED ONCE OTHER Last administered on t 10:10; Start 08/08/16 at 10:10; Stop 08/08/16 at 10:31; Status DC Midazolam HCl (Versed Inj) 2 mg STK-MED ONCE .ROUTE ; Start 08/08/16 at 11:01; Stop 08/08/16 at 11:02; Status DC Fentanyl Citrate (fentaNYL INJ) 250 mcg STK-MED ONCE .ROUTE ; Start 08/08/16 at 11:02; Stop 08/08/16 at 11:03; Status DC Fentanyl Citrate (fentaNYL INJ) 100 mcg STK-MED ONCE .ROUTE ; Start 08/08/16 at 11:02; Stop 08/08/16 at 11:03; Status DC Morphine Sulfate (Morphine Inj) 4 mg STK-MED ONCE .ROUTE ; Start 08/08/16 at 11: 03; Stop 08/08/16 at 11:04; Status DC Morphine Sulfate (*morphine INJ PERIprocedure ONLY) 8 mg STK-MED ONCE .ROUTE Last administered on 08/08/16 11:17; Start 08/08/16 at 11:17; Stop 08/08/16 at 11:18; Status DC Miscellaneous Information ALL NURSING DEPARTME... UNSCH PRN XX SEE LABEL COMMENTS; Start 08/08/16 at 12:30; Stop 08/09/16 at 12:29; Status DC Lorazepam (Ativan) 0.25 mg Q12H PRN PO ANXIETY; Start 08/09/16 at 14:00; Stop 08/11/16 at 14:33; Status DC Propofol (Diprivan 200 Mg/20 ml Inj) 800 mg STK-MED ONCE IV ; Start 08/08/16 at 12:00; Stop 08/11/16 at 12:57; Status DC Heparin Sodium (Porcine) (Heparin Inj) 5,000 units STK-MED ONCE OTHER ; Start at 12:00; Stop 08/11/16 at 13:02; Status DC Potassium Chloride (KCl) 10 meq Q8HR PO Last administered on 08/16/16 06:08; Start 08/11/16 at 14:00; Stop 08/16/16 at 13:59; Status DC Clonazepam (KlonoPIN) 0.5 mg Q8HR PO Last administered on 08/12/16 05:29; Start 08/11/16 at 14:45; Stop 08/12/16 at 12:49; Status DC Diphenhydramine HCl (Benadryl) 25 mg ONCE ONCE PO Last administered on 17:50; Start 08/11/16 at 14:45; Stop 08/11/16 at 15:05; Status DC Clonazepam (KlonoPIN) 0.5 mg Q8H PRN PO ANXIETY Last administered on 08/30/16 22:50; Start 08/12/16 at 12:45; Stop 09/03/16 at 23:47; Status DC Gabapentin (Neurontin) 200 mg TID PO Last administered on 08/12/16 14:59; Start 08/12/16 at 13:00; Stop 08/14/16 at 16:07; Status DC Methadone HCl (Dolophine) 2.5 mg Q12HR PO Last administered on 09/01/16 21:49 ; Start 08/12/16 at 21:00; Stop 09/03/16 at 23:47; Status DC Doxycycline Hyclate (Vibratab) 100 mg Q12HR PO Last administered on 08/16/16 22:41; Start 08/12/16 at 22:45; Stop 08/17/16 at 08:21; Status DC Quetiapine Fumarate (SEROquel) 12.5 mg ONCE ONCE PO Last administered on 10:45; Start 08/13/16 at 10:45; Stop 08/13/16 at 10:50; Status DC Quetiapine Fumarate (SEROquel) 12.5 mg BID PO Last administered on 08/13/16 20 :32; Start 08/13/16 at 21:00; Stop 08/14/16 at 12:41; Status DC Gabapentin (Neurontin) 300 mg ONCE ONCE PO Last administered on 08/13/16 11: 00; Start 08/13/16 at 11:00; Stop 08/13/16 at 11:09; Status DC Acetaminophen (Tylenol) 500 mg Q6H PRN PO FEVER >100.4 Last administered on 17:12; Start 08/13/16 at 17:15 Quetiapine Fumarate (SEROquel) 6.25 mg HS PO Last administered on 09/01/16 21: 00; Start 08/14/16 at 21:00; Stop 09/03/16 at 23:47; Status DC Quetiapine Fumarate (SEROquel) 6.25 mg DAILY PRN PO agitated delirium Last administered on 09/01/16 12:37; Start 08/14/16 at 12:45; Stop 09/03/16 at 23:47 ; Status DC Gabapentin (Neurontin) 300 mg TID PO Last administered on 08/15/16 13:25; Start 08/15/16 at 09:00; Stop 08/15/16 at 14:20; Status DC Gabapentin (Neurontin) 400 mg ONCE ONCE PO ; Start 08/14/16 at 16:15; Stop at 16:15; Status DC Gabapentin (Neurontin) 200 mg ONCE ONCE PO Last administered on 08/14/16 17: 00; Start 08/14/16 at 16:30; Stop 08/14/16 at 16:33; Status DC Gabapentin (Neurontin) 400 mg TID PO Last administered on 08/18/16 12:34; Start 08/15/16 at 18:00; Stop 08/18/16 at 13:52; Status DC Mupirocin (Bactroban 2% Oint) 1 applic Q12HR TOPICAL Last administered on 21:00; Start 08/15/16 at 15:00 Hydrocortisone 1 applic 1 applic Q8H TOPICAL Last administered on 09/16/16 04: 00; Start 08/15/16 at 20:00 Levofloxacin/ Dextrose (Levaquin 750 Mg Premix Inj) 150 ml @ 100 mls/hr Q24H IV Last administered on 08/16/16 09:41; Start 08/16/16 at 08:00; Stop at 08:21; Status DC Lactobacillus Acidophilus 1 tab 1 tab TID PO Last administered on 09/15/16 12: 33; Start 08/16/16 at 09:00 Vancomycin HCl 1750 mg/Sodium Chloride 517.5 ml @ 258.75 mls/ hr ONCE ONCE IV Last administered on 08/17/16 10:21; Start 08/17/16 at 10:00; Stop 08/17/16 at 11:59; Status DC Pharmacy Profile Note 0 ml @ 0 mls/hr UNSCH OTHER ; Start 08/17/16 at 08:15; Stop 08/18/16 at 16:18; Status DC Piperacillin Sod/ Tazobactam Sod 50 ml @ 100 mls/hr Q6H IV Last administered on 08/18/16 09:15; Start 08/17/16 at 09:00; Stop 08/18/16 at 13:02; Status DC Sodium Chloride 1,000 ml @ 999 mls/hr BOLUS ONCE IV Last administered on 08/17 08:30; Start 08/17/16 at 08:30; Stop 08/17/16 at 09:30; Status DC Sodium Chloride 1,000 ml @ 200 mls/hr Q5H IV ; Start 08/17/16 at 09:00; Stop at 18:59; Status DC Vancomycin HCl/ Sodium Chloride (Vancomycin Inj/ NS 250 ml Inj) 250 ml @ 250 mls/hr Q12H IV Last administered on 08/18/16 12:33; Start 08/17/16 at 22:00; Stop 08/18/16 at 16:31; Status DC Miscellaneous Information SPECIFIC LAB TO BE . ONCE ONCE XX ; Start at 21:45; Stop 08/18/16 at 21:45; Status DC Olanzapine 10 mg 10 mg Q12H PRN IM acute agitation; Start 08/17/16 at 16:15; Stop 08/19/16 at 16:14; Status DC Levofloxacin/ Dextrose 150 ml @ 100 mls/hr Q24H IV ; Start 08/18/16 at 09:00; Stop 08/18/16 at 09:00; Status DC Levofloxacin/ Dextrose (Levaquin 750 Mg Premix Inj) 150 ml @ 100 mls/hr Q48H IV Last administered on 08/18/16 09:54; Start 08/18/16 at 09:00; Stop at 13:02; Status DC Miscellaneous Medication (ASP Crit: Doc ESBL, MDR A baumannii or P aer) 1 UNSCH X1 PRN XX PHARMACY DOCUMENTATION; Start 08/18/16 at 13:00; Stop 08/19/16 at 12: 59; Status DC Miscellaneous Medication 1 1 UNSCH X1 PRN XX PHARMACY DOCUMENTATION; Start at 13:00; Stop 08/19/16 at 12:59; Status DC Meropenem/Sodium Chloride (Merrem Inj/NS Inj) 100 ml @ 200 mls/hr Q8H IV Last administered on 08/21/16 06:14; Start 08/18/16 at 14:00; Stop 08/21/16 at 07:36 ; Status DC Gabapentin 600 mg 600 mg TID PO Last administered on 09/01/16 18:44; Start at 18:00; Stop 09/02/16 at 21:42; Status DC Sodium Chloride 1,000 ml @ 150 mls/hr Q6H40M IV Last administered on 17:44; Start 08/18/16 at 15:30; Stop 08/20/16 at 17:43; Status DC Sodium Chloride (NS 250 ml Inj) 250 ml @ 15 mls/hr ONCE ONCE IV Last administered on 08/19/16 06:34; Start 08/18/16 at 16:45; Stop 08/19/16 at 09:24 ; Status DC Acetaminophen (Tylenol) 650 mg Q4H PRN PO SEE LABEL COMMENTS; Start 08/18/16 at 16:45; Stop 08/18/16 at 20:46; Status DC Diphenhydramine HCl 25 mg 25 mg Q4H PRN PO SEE LABEL COMMENTS; Start 08/18/16 at 16:45; Stop 08/18/16 at 20:46; Status DC Linezolid (Zyvox 600 Mg Premix) 300 ml @ 300 mls/hr Q12H IV Last administered on 08/20/16 22:54; Start 08/19/16 at 08:00; Stop 08/21/16 at 07:36; Status DC Albumin Human (Albumin 25% Inj) 12.5 gm Q8H IV Last administered on 08/22/16 11:31; Start 08/20/16 at 20:00; Stop 08/22/16 at 13:51; Status DC Bumetanide (Bumex Inj) 1 mg Q8H IV PUSH Last administered on 08/22/16 12:44; Start 08/20/16 at 20:00; Stop 08/22/16 at 13:51; Status DC Metronidazole (Flagyl) 500 mg Q6HR PO ; Start 08/21/16 at 09:00; Stop 08/21/16 at 09:00; Status DC Vancomycin HCl (VANCOMYCIN for oral use only) 500 mg QID PO Last administered on 08/25/16 12:22; Start 08/21/16 at 09:00; Stop 08/25/16 at 13:53; Status DC Chlorothiazide Sodium (Diuril Inj) 250 mg ONCE ONCE IV Last administered on 21:03; Start 08/21/16 at 20:00; Stop 08/21/16 at 20:01; Status DC Potassium Phos/ Sodium Phos (K-Phos Neutral) 250 mg BID PO Last administered on 08/22/16 07:41; Start 08/21/16 at 21:00; Stop 08/22/16 at 20:59; Status DC Bumetanide (Bumetanide) 1 mg DAILY PO Last administered on 09/01/16 08:18; Start 08/23/16 at 09:00; Stop 09/03/16 at 23:47; Status DC Potassium Chloride (KCl) 20 meq ONCE ONCE PO Last administered on 08/22/16 14 :23; Start 08/22/16 at 14:00; Stop 08/22/16 at 14:01; Status DC Valsartan (Diovan) 40 mg DAILY PO Last administered on 09/01/16 08:18; Start 08/23/16 at 09:00; Stop 09/03/16 at 23:47; Status DC Vancomycin HCl (VANCOMYCIN for oral use only) 125 mg QID PO Last administered on 09/09/16 12:29; Start 08/25/16 at 18:00; Stop 09/09/16 at 17:59; Status DC Lorazepam (Ativan Inj) 0.5 mg UNSCH X1 IV Last administered on 08/25/16 18:32 ; Start 08/25/16 at 17:00; Stop 08/25/16 at 23:00; Status DC Diphenhydramine HCl (Benadryl) 25 mg ONCE ONCE PO Last administered on 22:15; Start 08/26/16 at 22:00; Stop 08/26/16 at 22:01; Status DC Lorazepam (Ativan Inj) 1 mg ONCE ONCE IV PUSH Last administered on 08/29/16 17 :10; Start 08/29/16 at 17:00; Stop 08/29/16 at 17:01; Status DC Hydromorphone HCl (Dilaudid Pf Inj) 0.5 mg ONCE ONCE IV PUSH Last administered on 08/29/16 17:11; Start 08/29/16 at 17:00; Stop 08/29/16 at 17:01; Status DC Olanzapine 5 mg 5 mg HS PO Last administered on 09/01/16 21:49; Start 08/30/16 at 21:15; Stop 09/03/16 at 23:47; Status DC Potassium Chloride/Lactated Ringer's (KCl Inj/Lr 1000 ml Inj) 1,010 ml @ 42 mls /hr Q24H IV Last administered on 09/10/16 07:14; Start 09/02/16 at 00:00; Stop 09/12/16 at 20:35; Status DC Vancomycin HCl (Vancomycin Inj) 1,000 mg STK-MED ONCE OTHER Last administered on 09/02/16 16:51; Start 09/02/16 at 16:51; Stop 09/02/16 at 16:59; Status DC Morphine Sulfate (Morphine Inj) 2 mg Q4HR PRN IM Pain 1-10 Last administered on 09/11/16 11:27; Start 09/03/16 at 16:15 Haloperidol Lactate (Haldol Inj) 1 mg Q6H PRN IM Psychosis, delirium Last administered on 09/04/16 09:17; Start 09/03/16 at 16:15; Status Hold Heparin Sodium (Porcine) (Heparin Inj) 5,000 units Q12HR SQ Last administered on 09/09/16 21:39; Start 09/04/16 at 09:00; Stop 09/10/16 at 07:38; Status DC Dronabinol (Marinol) 2.5 mg BID@11,16 PO Last administered on 09/10/16 13:54; Start 09/05/16 at 11:00 Dronabinol (Marinol) 2.5 mg ONCE ONCE PO Last administered on 09/04/16 21:51 ; Start 09/04/16 at 17:15; Stop 09/04/16 at 17:17; Status DC Aspirin (Ecotrin Ec) 81 mg DAILY PO Last administered on 09/16/16 08:35; Start 09/05/16 at 09:00 Carvedilol (Coreg) 3.125 mg Q12HR PO Last administered on 09/16/16 08:35; Start 09/05/16 at 09:00 Lorazepam (Ativan Inj) 0.5 mg SWITCHBOARD TROUBLESHOOTER ONCE IV PUSH ; Start 09/06/16 at 18:15; Stop 09/06/16 at 18:30; Status DC Atorvastatin Calcium (Lipitor) 80 mg HS PO Last administered on 09/14/16 20:57 ; Start 09/06/16 at 21:00 Lorazepam (Ativan Inj) 0.5 mg SWITCHBOARD TROUBLESHOOTER ONCE IV PUSH Last administered on 20:08; Start 09/07/16 at 20:15; Stop 09/07/16 at 20:16; Status DC Gadodiamide (Omniscan Pf Inj) 16 ml STK-MED ONCE IV Last administered on 20:45; Start 09/07/16 at 20:45; Stop 09/07/16 at 20:46; Status DC Lorazepam 0.5 mg 0.5 mg ONCE ONCE IV PUSH ; Start 09/08/16 at 13:00; Stop 09/08 at 13:01; Status DC Thiamine HCl/ Sodium Chloride (Thiamine Inj/NS Inj) 101 ml @ 101 mls/hr DAILY IV Last administered on 09/16/16 08:39; Start 09/09/16 at 10:00 Propofol (Diprivan 200 Mg/20 ml Inj) 200 mg STK-MED ONCE IV ; Start 09/02/16 at 12:00; Stop 09/09/16 at 13:30; Status DC Ephedrine Sulfate (ePHEDrine/NS 25 MG/5 ML SYR) 25 mg STK-MED ONCE IV ; Start at 12:00; Stop 09/09/16 at 13:30; Status DC Phenylephrine HCl (Neosynephrine/ NS 1000 Mcg/10ml Syr) 1,000 mcg STK-MED ONCE IV ; Start 09/02/16 at 12:00; Stop 09/09/16 at 13:30; Status DC Ondansetron HCl 4 mg 4 mg STK-MED ONCE IV PUSH ; Start 09/02/16 at 12:00; Stop 09/09/16 at 13:30; Status DC Sodium Chloride 250 ml @ As Directed STK-MED ONCE IV ; Start 09/02/16 at 12:00 ; Stop 09/09/16 at 13:30; Status DC Parenteral Electrolytes (Normosol R Inj) 1,000 ml @ As Directed STK-MED ONCE IV ; Start 09/02/16 at 12:00; Stop 09/09/16 at 13:30; Status DC Levothyroxine Sodium (Synthroid) 175 mcg DAILY@06 PO ; Start 09/10/16 at 06:00; Status UNV Levothyroxine Sodium (Synthroid) 150 mcg DAILY@06 PO Last administered on 05:38; Start 09/10/16 at 06:00 Levothyroxine Sodium (Synthroid) 25 mcg DAILY@06 PO Last administered on 05:38; Start 09/10/16 at 06:00 Fentanyl Citrate (fentaNYL INJ) 100 mcg STK-MED ONCE IV ; Start 09/02/16 at 12: 00; Stop 09/10/16 at 12:44; Status DC Diphenhydramine HCl (Benadryl 2% Cream) 1 applic TID PRN TOPICAL ITCHING; Start 09/14/16 at 14:00 A/P Assessment and Plan A/P -s/p right AKA for nonhealing ischemic wound. Stump well healing. management per Dr. Taylor. - Peripheral vascular disease with nonhealing left lower extremity wound with necrotic tendon, several necrotic toes-status post consultation with 3 vascular surgeons, plastic surgery, textile machinery instructor. family declines amputation. topical hyperbaric oxygen therapy (numo bag) purchased by family. this therapy can be given in hospital or at home, but is not FDA approved. [facility] currently not [facility] patient due to the family requesting numo bag, as well as the issue with wound healing. - Severe neuropathic pain - continue Neurontin. -Severe acute metabolic encephalopathy- continues to improve -exhaustive workup has been performed including initial LP which showed pleocytosis with lymphocyte predominance, see previous notes - Appreciate input from neurology, hematology, palliative care - EEG 09/04 -moderate encephalopathy. -MRI brain with and without contrast 09/07 negative -2nd neuro opinion (requested per family) with Dr. Bauer appreciated, family declines repeat LP as patient improving - C. Diff colitis, s/p treatment with vancomycin. ID/Dr. Quispe. - UTI - Microbiology grew ESBL ( 09/14/16) -d/w today; no need to treat at this time. -Diabetes mellitus type II, currently with good Accu-Chek reads- Coverage with SSI. Monitor Accu-Cheks. Monitor for hypoglycemia. -Hypothyroidism - TSH on 09/08 22, Free T3 low at 0.72, free T4 nml. increased levothyroxine 150 g ->175. repeat TSH in several weeks. - Hypertension - Cardiomyopathy - EF 3540% -Continue carvedilol low dose. will consider JOYCE inhibitor if blood pressure will tolerate and renal function remained stable. currently normotensive. S/p cardiology eval. -Acute kidney injury, resolved. -Chronic kidney disease stage III. Improved, creatinine stable around 1. repeat labs in a.m. -Severe malnutrition - dietary consult noted. Prealbumin is 7. Hopefully patient's by mouth intake will improve as she improves mental status. Consulted GI for eval for possible PEG tube. Started Marinol to stimulate appetite. Daughter Blanche wants to give the patient several days for improvement prior to considering PEG tube. Continue ensure, add multivitamin. - Abnormal uterine appearance - seen on abdominal and pelvis CT -pelvic ultrasound showing prominent endometrium, tumor markers negative, no history of vaginal bleeding -Heme on consult was requested per oncology service. Consider endometrial biopsy as outpatient. MRI abdomen canceled per family (did not want her sedated) . Anemia of chronic illness - stable, monitor transfuse prn Hb<7. decubitus ulcer- is being followed-up by wound care; d/w the assistant department manager; recommended plastic surgery evaluation. Full code. Heparin SQ. Discharge Planning difficult discharge. d/w the case management today; [facility] is not accepting the patient since there will be no vascular surgery available. no accepting facility yet. called the daughter and gave her an update. Conrad Clancy MD Sep 16, 2016 09:36
[2016-09-16] MEDS: DRONABINOL 2.5 MG CAP PO SCH ×2 (10:55→15:51)
--- NOTE | 2016-09-16 11:47 | PD.VS.PN ---
Subjective Subjective/Hospital Course Pt sitting up in bed comfortably with oxygen therapy treatment to LLE Pt alert and conversing appropriately Pt appears in good spirits Stocking to R AKA I/C/D Objective Vitals/I&O Date Time Temp Pulse Resp B/P Pulse Ox O2 Delivery O2 Flow Rate FiO2 09/16/16 09:59 Room Air 09/16/16 08:00 97.8 82 18 126/61 97 09/16/16 07:45 85 09/16/16 04:00 98.0 74 18 116/54 96 09/16/16 00:00 98.2 81 18 111/53 95 09/15/16 20:00 97.5 85 18 125/59 96 09/15/16 20:00 Room Air 09/15/16 20:00 85 09/15/16 16:00 98.0 78 16 124/58 100 09/15/16 12:00 97.3 81 16 136/63 100 09/16/16 09/16/16 09/16/16 07:00 15:00 23:00 Intake Total 240 ml Balance 240 ml Physical Exam GENERAL: alert in nad SKIN: Warm and dry. LLE appears to have new tissue growth since previous assessment, R AKA with stump stocking placed C/D, pt with oxygen therapy to BLE , improved rash to left neck and face NECK: Supple, No JVD CARDIOVASCULAR: RRR, +S1,S2 without M/G/R RESPIRATORY: BS Equal and Clear Bilaterally GASTROINTESTINAL: Abdomen soft, non-tender, nondistended. MUSCULOSKELETAL: No cyanosis, or edema. R AKA with no S/R/D Laboratory Date/Time Procedure Status Source Growth 09/14/16 12:51 Urine Culture - Preliminary Resulted Urine Clean Catch Escherichia Coli Esbl Positive Assessment and Plan Plan Plan Pt doing well post operatively after her R AKA OOB to chair Will continue to follow Nasrin CAMPOVERDE Zmanda[employer] [phone] Discharge Planning From a Vascular standpoint pt OK to d/c to a SNF or Rehab facility Nasrin Carl Sep 16, 2016 11:47
[2016-09-16] MEDS: MELATONIN 5 MG TAB PO SCH (21:00)
[2016-09-16] MEDS: ATORVASTATIN 80 MG TAB PO SCH (21:03)
[2016-09-17] VITALS: BP 118/56; PULSE 69; RESP 16; TEMP 99.8; O2SAT 94
[2016-09-17] MEDS: HYDROCORTISONE 1% CREAM 30 GM TOPICAL SCH ×3 (03:24→19:42)
[2016-09-17 03:50] LABS: IGA SERUM 499 mg/dL (81-463); TISSUE TRANSGLUTAMINASE AB IGG ND U/mL (())
[2016-09-17 04:00] VITALS: BP 124/58; PULSE 72; RESP 18; TEMP 98.9; O2SAT 94
[2016-09-17] MEDS: LEVOTHYROXINE SODIUM 150 MCG TAB PO SCH (05:53)
[2016-09-17] MEDS: LEVOTHYROXINE SODIUM 25 MCG TAB PO SCH (05:53)
[2016-09-17] MEDS: INSULIN ASPART SUPPLEMENTAL SCALE SQ SCH ×4 (06:35→20:37)
[2016-09-17 08:00] VITALS: BP 138/67; PULSE 77; RESP 18; TEMP 97.7; O2SAT 95
[2016-09-17] MEDS: LACTOBACILLUS ACIDOPHILUS TAB PO SCH ×3 (08:59→12:06)
[2016-09-17] MEDS: MUPIROCIN 2% OINT 22 GM TUBE TOPICAL SCH ×2 (09:00→20:37)
[2016-09-17] MEDS: LIOTHYRONINE SODIUM 5 MCG TAB PO SCH (09:00)
[2016-09-17] MEDS: SODIUM CHLORIDE 0.9% FLUSH 5 ML FLUSH IV FLUSH SCH ×2 (09:00→20:37)
[2016-09-17] MEDS: CARVEDILOL 3.125 MG TAB PO SCH ×2 (09:00→20:36)
[2016-09-17] MEDS: ASPIRIN EC 81 MG TABEC PO SCH (09:01)
[2016-09-17] MEDS: THIAMINE INJ 100 MG in SODIUM CHLORIDE 0.9% INJ 100 ML IV SCH (09:01)
[2016-09-17] MEDS: DRONABINOL 2.5 MG CAP PO SCH ×2 (10:52→12:06)
--- NOTE | 2016-09-17 11:30 | HHI.PR ---
Subjective Remarks resting comfortably with no distress. no fever. pain is controlled. Objective Vitals Vital Signs Date Time Temp Pulse Resp B/P Pulse Ox O2 Delivery O2 Flow Rate FiO2 09/17/16 08:50 Room Air 09/17/16 08:00 97.7 77 18 138/67 95 09/17/16 04:00 98.9 72 18 124/58 94 09/17/16 00:00 99.8 69 16 118/56 94 09/16/16 21:00 Room Air 09/16/16 20:00 98.3 74 18 116/56 96 09/16/16 20:00 81 09/16/16 16:00 98.0 79 20 131/62 95 09/16/16 12:00 97.6 79 20 131/60 96 I/O 09/16/16 09/16/16 09/16/16 09/17/16 09/17/16 09/17/16 07:00 15:00 23:00 07:00 15:00 23:00 Intake Total 240 ml 720 ml 240 ml 240 ml Balance 240 ml 720 ml 240 ml 240 ml Intake Oral 240 ml 720 ml 240 ml 240 ml # Voids 0 1 0 0 # Bowel Movements 0 3 0 1 Result Diagram: 09/13/16 0632 09/13/16 0632 Imaging Last Impressions Brain MRI 09/07/16 0000 Signed Impressions: Service Date/Time: Wednesday, September 07, 2016 20:26 - CONCLUSION: 1. No acute findings. No significant change from August 25, 2016. No abnormal enhancement post contrast. Mild chronic white matter ischemic changes. Rolando Sharif MD Pelvis Ultrasound 09/05/16 0000 Signed Impressions: Service Date/Time: Monday, September 05, 2016 19:53 - CONCLUSION: Enlarged uterus with prominence of the endometrium. Alfredo Etienne MD Chest CT 09/05/16 0000 Signed Impressions: Service Date/Time: Monday, September 05, 2016 08:47 - CONCLUSION: 1. No worrisome masses. Please see above. 2. Dilatation of the aorta 4.3 cm. 3. Atherosclerosis. Addy Hillman MD Abdomen/Pelvis CT 09/05/16 0000 Signed Impressions: Service Date/Time: Monday, September 05, 2016 08:47 - CONCLUSION: 1. Fat containing umbilical hernias. 2. Extensive atherosclerosis. 3. Indeterminate low-density lesion in the liver, incompletely characterized without contrast. 4. Basilar air space disease and atelectasis with small pericardial effusion. 5. Abnormal appearance of the uterus as described above. A pelvic ultrasound will be helpful for further assessment on a nonemergent outpatient basis. Addy Hillman MD Lumbar Puncture Fluoroscopy 08/29/16 0000 Signed Impressions: Service Date/Time: Monday, August 29, 2016 16:39 - CONCLUSION: Uncomplicated fluoroscopically guided lumbar puncture with pressures as above. Alfredo Etienne MD Chest X-Ray 08/19/16 0000 Signed Impressions: Service Date/Time: Friday, August 19, 2016 18:46 - CONCLUSION: 1. Bibasilar streakiness consistent with atelectasis and/or infiltrates. 2. Cardiomegaly. 3. Poor inspiratory result. Shamar Banuelos MD Upper Extremity Ultrasound 07/28/16 0000 Signed Impressions: Service Date/Time: Thursday, July 28, 2016 14:34 - CONCLUSION: No DVT is identified within the right upper extremity. Alfredo Eng MD Head CT 07/19/16 0000 Signed Impressions: Service Date/Time: Tuesday, July 19, 2016 09:58 - CONCLUSION: No acute intracranial findings. João Otoole MD Foot X-Ray 07/16/16 0000 Signed Impressions: Service Date/Time: Saturday, July 16, 2016 17:34 - CONCLUSION: 1. Nonspecific soft tissue swelling. No acute bone destruction demonstrated. 2. Mild talonavicular and navicular/cuneiform degenerative changes. 3. Second through fifth hammertoe. 4. Moderate-sized heel spur. Alfredo Sneed MD Objective Remarks GENERAL: in no apparent distress. CARDIOVASCULAR: Regular rate and irregular rhythm without murmurs, gallops, or rubs. RESPIRATORY: Clear to auscultation. Breath sounds equal bilaterally. No wheezes , rales, or rhonchi. GASTROINTESTINAL: Abdomen soft, non-tender, nondistended. 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 NEURO: awake and alert Procedures 08/08/2016 PROCEDURE 1. Selective right lower extremity arteriogram. 2. Balloon angioplasty with a 4 mm x 2200 mm and then a 5 x 200 mm Med[employer] angioplasty balloon of the right superficial femoral and proximal popliteal artery. 07/31/2016 Excision and debridement of both legs, extensive necrotic wounds approximately 30 x 25 cm area on each side, total 1000 to 1100 cm square, down to the subcutaneous tissue and tendon on the left side. 09/03/2016 Right [id number] amputation Medications and IVs Current Medications Sodium Chloride (NS 1000 ml Inj) 1,000 ml @ 84 mls/hr [id number] IV Last administered on 08/05/16 16:12; Start 07/15/16 at 19:42; Stop 08/18/16 at 15:34 ; Status DC IV Flush (NS Flush) 2 ml UNSCH PRN IV FLUSH FLUSH AFTER USING IV ACCESS Last administered on 08/12/16 05:30; Start 07/15/16 at 19:45 IV Flush (NS Flush) 2 ml BID IV FLUSH Last administered on 09/17/16 09:00; Start 07/15/16 at 21:00 Fentanyl Citrate (fentaNYL INJ) 50 mcg Q3H PRN IV PUSH Pain scale 7-10 &/or sedation Last administered on 07/15/16 21:44; Start 07/15/16 at 19:45; Stop at 11:51; Status DC Famotidine (Pepcid Inj) 20 mg Q12HR IV PUSH Last administered on 07/15/16 20: 19; Start 07/15/16 at 21:00; Stop 07/15/16 at 21:24; Status DC Ondansetron HCl (Zofran Inj) 4 mg Q6H PRN IV NAUSEA OR VOMITING Last administered on 07/31/16 13:23; Start 07/15/16 at 19:45; Stop 08/12/16 at 20:17 ; Status DC Metoclopramide HCl (Reglan Inj) 5 mg Q6H PRN IV NAUSEA OR VOMITING Last administered on 09/06/16 21:32; Start 07/15/16 at 19:45 Docusate Sodium (Colace) 100 mg BID PO Last administered on 08/07/16 21:00; Start 07/15/16 at 21:00; Stop 08/08/16 at 22:08; Status DC Albuterol/ Ipratropium (Duoneb Neb) 1 ampule Q2HR NEB PRN INH WHEEZING; Start 07/15/16 at 19:45 Heparin Sodium (Porcine) (Heparin Inj) 5,000 units Q8HR SQ Last administered on 08/28/16 12:46; Start 07/15/16 at 22:00; Stop 09/03/16 at 23:47; Status DC Miscellaneous Information 1 [id number] Last administered on 07/15/16 19:45; Start 07/15/16 at 19:45; Stop 09/04/16 at 03:06; Status DC Chlorhexidine Gluconate (Chlorhexidine 2% Cloth) Taper DAILY@04 TOP Last administered on 07/17/16 03:11; Start 07/16/16 at 04:00; Stop 09/04/16 at 03:06 ; Status DC Chlorhexidine Gluconate (Chlorhexidine 2% Cloth) 3 pack UNSCH PRN TOP HYGIENIC CARE; Start 07/15/16 at 19:45; Stop 09/04/16 at 03:06; Status DC Acetaminophen (Ofirmev Inj) 1,000 mg Q6H PRN IV PAIN SCALE 1 TO 6; Start at 20:00; Stop 07/18/16 at 11:51; Status DC Ketorolac Tromethamine (Toradol Inj) 30 mg Q6H PRN IM PAIN SCALE 1 TO 7; Start 07/15/16 at 20:00; Stop 07/15/16 at 20:10; Status DC Ketorolac Tromethamine (Toradol Inj) 30 mg Q6H PRN IV PUSH PAIN 1-6 Last administered on 07/15/16 20:34; Start 07/15/16 at 20:15; Stop 07/18/16 at 11:51 ; Status DC Carvedilol (Coreg) 25 mg BID PO Last administered on 08/17/16 10:24; Start at 21:00; Stop 08/17/16 at 16:06; Status DC Fluconazole (Diflucan) 75 mg DAILY@17 PO Last administered on 07/16/16 17:03; Start 07/16/16 at 17:00; Stop 07/17/16 at 08:09; Status DC Isosorbide Dinitrate (Isordil) 5 mg Q8HR PO Last administered on 09/02/16 05: 38; Start 07/15/16 at 22:00; Stop 09/03/16 at 23:47; Status DC Lactobacillus Acidophilus (Lactinex) 1 tab TID PO Last administered on 08:32; Start 07/16/16 at 09:00; Stop 08/25/16 at 08:59; Status DC Levofloxacin (Levaquin) 250 mg Q48H PO Last administered on 07/21/16 21:05; Start 07/15/16 at 22:00; Stop 07/23/16 at 16:37; Status DC Levothyroxine Sodium (Synthroid) 150 mcg DAILY@06 PO Last administered on 05:47; Start 07/16/16 at 06:00; Stop 09/09/16 at 17:57; Status DC Liothyronine Sodium (Cytomel) 5 mcg DAILY PO Last administered on 09/17/16 09: 00; Start 07/16/16 at 09:00 Non-Formulary Medication 325 mg DAILY PO ; Start 07/16/16 at 09:00; Status UNV Miscellaneous (Pill Splitter) 1 ea UNSCH PRN OTHER SEE LABEL COMMENTS; Start at 21:30 Famotidine (Pepcid Inj) 10 mg Q12HR IV PUSH Last administered on 07/17/16 07: 29; Start 07/16/16 at 09:00; Stop 07/18/16 at 10:59; Status DC Aspirin (Ecotrin Ec) 325 mg DAILY PO Last administered on 08/25/16 08:30; Start 07/16/16 at 09:00; Stop 08/25/16 at 16:10; Status DC Etomidate (Amidate Inj) 20 mg STK-MED ONCE .ROUTE ; Start 07/16/16 at 17:07; Stop 07/16/16 at 17:08; Status DC Famotidine (Pepcid Inj) 20 mg Q12HR IV PUSH Last administered on 08/12/16 09: 05; Start 07/18/16 at 21:00; Stop 08/12/16 at 20:17; Status DC Hydromorphone HCl (Dilaudid Pf Inj) 0.5 mg ONCE ONCE IV PUSH Last administered on 08/04/16 18:00; Start 07/18/16 at 11:45; Stop 07/18/16 at 11:46 ; Status DC Hydromorphone HCl (Dilaudid Pf Inj) 0.5 mg Q4H PRN IV PUSH breakthrough pain / dresing lori Last administered on 08/31/16 05:32; Start 07/18/16 at 11:45; Stop 09/03/16 at 23:47; Status DC Acetaminophen/ Hydrocodone Bitart ([place] 5-325 Mg) 1 tab Q6H PRN PO pain 2-10 Last administered on 08/12/16 09:04; Start 07/18/16 at 11:45; Stop 08/12/16 at 20:17; Status DC Diphenhydramine HCl 50 mg 50 mg STK-MED ONCE .ROUTE ; Start 07/19/16 at 11:20; Stop 07/19/16 at 11:21; Status DC Levetriacetam/ Sodium Chloride (Keppra Inj/NS Inj) 105 ml @ 420 mls/hr Q12HR IV Last administered on 07/20/16 08:19; Start 07/19/16 at 13:00; Stop at 16:25; Status DC Haloperidol Lactate (Haldol Inj) 2 mg Q6H PRN IM aggittation Last administered on 07/30/16 01:29; Start 07/19/16 at 12:30; Stop 09/03/16 at 23:47; Status DC Lorazepam 1 mg 1 mg Q6H PRN IV PUSH seizures/agiatation Last administered on 06:09; Start 07/19/16 at 12:30; Stop 09/03/16 at 23:47; Status DC Valproate Sodium 500 mg/Sodium Chloride 105 ml @ 105 mls/hr Q8H IV Last administered on 07/25/16 09:26; Start 07/20/16 at 18:00; Stop 07/25/16 at 09:54; Status DC Cefepime HCl/ Sodium Chloride (Maxipime Inj/NS Inj) 100 ml @ 200 mls/hr Q12H IV Last administered on 07/27/16 02:43; Start 07/21/16 at 15:00; Stop 07/27/16 at 09:00; Status DC Dextrose (D50w (Vial) Inj) 25 ml UNSCH PRN IV PUSH HYPOGLYCEMIA-SEE COMMENTS; Start 07/23/16 at 11:00 Glucagon (Glucagon Inj) 1 mg UNSCH PRN OTHER HYPOGLYCEMIA-SEE COMMENTS; Start 07/23/16 at 11:00 Insulin Aspart (NovoLOG SUPPLEMENTAL SCALE) 1 ACHS SLIDING SCALE SQ Last administered on 09/16/16 11:02; Start 07/23/16 at 11:00 Potassium Chloride (KCl) 40 meq ONCE ONCE PO Last administered on 07/24/16 13: 00; Start 07/24/16 at 13:00; Stop 07/24/16 at 13:01; Status DC Valproic Acid (Depakene) 500 mg Q8HR PO Last administered on 07/26/16 14:52; Start 07/25/16 at 15:00; Stop 07/26/16 at 17:39; Status DC Potassium Chloride (KCl) 30 meq ONCE ONCE PO Last administered on 07/26/16 19: 30; Start 07/26/16 at 16:30; Stop 07/26/16 at 16:36; Status DC Potassium Chloride (KCl) 30 meq ONCE ONCE PO Last administered on 07/26/16 22: 16; Start 07/26/16 at 20:00; Stop 07/26/16 at 20:01; Status DC Valproic Acid (Depakene) 250 mg Q12HR PO Last administered on 09/04/16 09:07; Start 07/27/16 at 09:00; Stop 09/04/16 at 16:16; Status DC Hydromorphone HCl (Dilaudid Pf Inj) 0.5 mg ONCE ONCE IV PUSH Last administered on 07/27/16 10:42; Start 07/27/16 at 10:45; Stop 07/27/16 at 10:46; Status DC Valsartan (Diovan) 80 mg HS PO Last administered on 08/19/16 21:58; Start 07/27 at 21:00; Stop 08/20/16 at 18:58; Status DC Enalaprilat (Vasotec Inj) 1.25 mg Q8H PRN IV PUSH SBP >180 OR DBP >100; Start 07/28/16 at 16:00 Fluconazole 100 mg 100 mg DAILY PO Last administered on 08/05/16 11:34; Start 07/30/16 at 09:45; Stop 08/05/16 at 16:53; Status DC Ceftriaxone Sodium/Sodium Chloride (Rocephin Inj/NS Inj) 100 ml @ 200 mls/hr Q24H IV Last administered on 08/01/16 09:45; Start 07/30/16 at 10:00; Stop 03/10 at 11:59; Status DC Potassium Chloride (KCl) 30 meq ONCE ONCE PO Last administered on 07/30/16 12: 12; Start 07/30/16 at 09:45; Stop 07/30/16 at 09:53; Status DC Potassium Chloride (KCl) 30 meq ONCE ONCE PO Last administered on 07/30/16 14: 00; Start 07/30/16 at 14:00; Stop 07/30/16 at 14:01; Status DC Insulin Detemir (Levemir Inj) 5 units HS SQ Last administered on 09/03/16 20: 17; Start 07/30/16 at 21:00; Status Hold Melatonin (Melatonin) 5 mg HS PO Last administered on 09/15/16 21:03; Start at 21:00 Bupivacaine HCl (Marcaine Pf 0.5% Inj) 30 ml STK-MED ONCE .ROUTE ; Start at 10:12; Stop 07/31/16 at 10:13; Status DC Bupivacaine HCl/ Epinephrine Bitart (Sensorcaine-Epi 0.5% 50 ml Inj) 50 ml STK- MED ONCE .ROUTE ; Start 07/31/16 at 10:12; Stop 07/31/16 at 10:13; Status DC Bacitracin (Baciguent Oint) 15 applic STK-MED ONCE .ROUTE ; Start 07/31/16 at 10: 12; Stop 07/31/16 at 10:13; Status DC Dexamethasone Sodium Phosphate (Decadron Inj) 4 mg STK-MED ONCE .ROUTE Last administered on 07/31/16 10:24; Start 07/31/16 at 10:22; Stop 07/31/16 at 10:23; Status DC Famotidine (Pepcid Inj) 20 mg STK-MED ONCE IV PUSH Last administered on 10:23; Start 07/31/16 at 10:23; Stop 07/31/16 at 10:27; Status DC Fentanyl Citrate 500 mcg 500 mcg STK-MED ONCE .ROUTE ; Start 07/31/16 at 12:13; Stop 07/31/16 at 12:14; Status DC Gentamicin Sulfate/Sodium Chloride (Gentamicin Inj/ NS Irr Btl) 1,005 ml @ 0 mls/hr UNSCH PRN IRRIGATION DRESSING CHANGES; Start 07/31/16 at 13:30 Miscellaneous Information ALL NURSING DEPARTME... UNSCH PRN XX SEE LABEL COMMENTS; Start 07/31/16 at 13:30; Stop 08/01/16 at 13:29; Status DC Propofol (Diprivan 200 Mg/20 ml Inj) 200 mg STK-MED ONCE IV ; Start 07/31/16 at 12:42; Stop 08/04/16 at 12:43; Status DC Ephedrine Sulfate (ePHEDrine/NS 25 MG/5 ML SYR) 25 mg STK-MED ONCE IV ; Start at 12:42; Stop 08/04/16 at 12:43; Status DC Phenylephrine HCl (Neosynephrine/ NS 1000 Mcg/10ml Syr) 1,000 mcg STK-MED ONCE IV ; Start 07/31/16 at 12:42; Stop 08/04/16 at 12:43; Status DC Ondansetron HCl (Zofran Inj) 4 mg STK-MED ONCE IV PUSH ; Start 07/31/16 at 12:42 ; Stop 08/04/16 at 12:43; Status DC Prednisone (Deltasone) 50 mg Q6H PO Last administered on 08/08/16t 04:00; Start 08/07/16 at 16:00; Stop 08/08/16 at 04:01; Status DC Diphenhydramine HCl (Benadryl Inj) 50 mg ONCE ONCE IV ; Start 08/07/16 at 16:00 ; Stop 08/07/16 at 16:01; Status DC Midazolam HCl (Versed Inj) 2 mg STK-MED ONCE .ROUTE ; Start 08/08/16 at 08:24; Stop 08/08/16 at 08:25; Status DC Diphenhydramine HCl (Benadryl Inj) 50 mg STK-MED ONCE .ROUTE ; Start 08/08/16 at 08:24; Stop 08/08/16 at 08:25; Status DC Hydrocortisone Sodium Succinate (SoluCORTEF INJ) 100 mg STK-MED ONCE .ROUTE Last administered on 08/08/16 08:52; Start 08/08/16 at 08:50; Stop 08/08/16 at 08:51; Status DC Ketamine HCl (Ketalar Inj) 500 mg STK-MED ONCE .ROUTE ; Start 08/08/16 at 08:59 ; Stop 08/08/16 at 09:00; Status DC Iohexol 100 ml 100 ml STK-MED ONCE OTHER Last administered on 08/08/16t 08:50; Start 08/08/16 at 08:50; Stop 08/08/16 at 09:45; Status DC Nitroglycerin/ Dextrose (Nitroglycerin-Dextrose Inj) 250 ml @ As Directed STK- MED ONCE .ROUTE ; Start 08/08/16 at 09:57; Stop 08/08/16 at 09:58; Status DC Iohexol (Omnipaque 300 Inj) 50 ml STK-MED ONCE OTHER Last administered on t 10:10; Start 08/08/16 at 10:10; Stop 08/08/16 at 10:31; Status DC Midazolam HCl (Versed Inj) 2 mg STK-MED ONCE .ROUTE ; Start 08/08/16 at 11:01; Stop 08/08/16 at 11:02; Status DC Fentanyl Citrate (fentaNYL INJ) 250 mcg STK-MED ONCE .ROUTE ; Start 08/08/16 at 11:02; Stop 08/08/16 at 11:03; Status DC Fentanyl Citrate (fentaNYL INJ) 100 mcg STK-MED ONCE .ROUTE ; Start 08/08/16 at 11:02; Stop 08/08/16 at 11:03; Status DC Morphine Sulfate (Morphine Inj) 4 mg STK-MED ONCE .ROUTE ; Start 08/08/16 at 11: 03; Stop 08/08/16 at 11:04; Status DC Morphine Sulfate (*morphine INJ PERIprocedure ONLY) 8 mg STK-MED ONCE .ROUTE Last administered on 08/08/16 11:17; Start 08/08/16 at 11:17; Stop 08/08/16 at 11:18; Status DC Miscellaneous Information ALL NURSING DEPARTME... UNSCH PRN XX SEE LABEL COMMENTS; Start 08/08/16 at 12:30; Stop 08/09/16 at 12:29; Status DC Lorazepam (Ativan) 0.25 mg Q12H PRN PO ANXIETY; Start 08/09/16 at 14:00; Stop 08/11/16 at 14:33; Status DC Propofol (Diprivan 200 Mg/20 ml Inj) 800 mg STK-MED ONCE IV ; Start 08/08/16 at 12:00; Stop 08/11/16 at 12:57; Status DC Heparin Sodium (Porcine) (Heparin Inj) 5,000 units STK-MED ONCE OTHER ; Start at 12:00; Stop 08/11/16 at 13:02; Status DC Potassium Chloride (KCl) 10 meq Q8HR PO Last administered on 08/16/16 06:08; Start 08/11/16 at 14:00; Stop 08/16/16 at 13:59; Status DC Clonazepam (KlonoPIN) 0.5 mg Q8HR PO Last administered on 08/12/16 05:29; Start 08/11/16 at 14:45; Stop 08/12/16 at 12:49; Status DC Diphenhydramine HCl (Benadryl) 25 mg ONCE ONCE PO Last administered on 17:50; Start 08/11/16 at 14:45; Stop 08/11/16 at 15:05; Status DC Clonazepam (KlonoPIN) 0.5 mg Q8H PRN PO ANXIETY Last administered on 08/30/16 22:50; Start 08/12/16 at 12:45; Stop 09/03/16 at 23:47; Status DC Gabapentin (Neurontin) 200 mg TID PO Last administered on 08/12/16 14:59; Start 08/12/16 at 13:00; Stop 08/14/16 at 16:07; Status DC Methadone HCl (Dolophine) 2.5 mg Q12HR PO Last administered on 09/01/16 21:49 ; Start 08/12/16 at 21:00; Stop 09/03/16 at 23:47; Status DC Doxycycline Hyclate (Vibratab) 100 mg Q12HR PO Last administered on 08/16/16 22:41; Start 08/12/16 at 22:45; Stop 08/17/16 at 08:21; Status DC Quetiapine Fumarate (SEROquel) 12.5 mg ONCE ONCE PO Last administered on 10:45; Start 08/13/16 at 10:45; Stop 08/13/16 at 10:50; Status DC Quetiapine Fumarate (SEROquel) 12.5 mg BID PO Last administered on 08/13/16 20 :32; Start 08/13/16 at 21:00; Stop 08/14/16 at 12:41; Status DC Gabapentin (Neurontin) 300 mg ONCE ONCE PO Last administered on 08/13/16 11: 00; Start 08/13/16 at 11:00; Stop 08/13/16 at 11:09; Status DC Acetaminophen (Tylenol) 500 mg Q6H PRN PO FEVER >100.4 Last administered on 17:12; Start 08/13/16 at 17:15 Quetiapine Fumarate (SEROquel) 6.25 mg HS PO Last administered on 09/01/16 21: 00; Start 08/14/16 at 21:00; Stop 09/03/16 at 23:47; Status DC Quetiapine Fumarate (SEROquel) 6.25 mg DAILY PRN PO agitated delirium Last administered on 09/01/16 12:37; Start 08/14/16 at 12:45; Stop 09/03/16 at 23:47 ; Status DC Gabapentin (Neurontin) 300 mg TID PO Last administered on 08/15/16 13:25; Start 08/15/16 at 09:00; Stop 08/15/16 at 14:20; Status DC Gabapentin (Neurontin) 400 mg ONCE ONCE PO ; Start 08/14/16 at 16:15; Stop at 16:15; Status DC Gabapentin (Neurontin) 200 mg ONCE ONCE PO Last administered on 08/14/16 17: 00; Start 08/14/16 at 16:30; Stop 08/14/16 at 16:33; Status DC Gabapentin (Neurontin) 400 mg TID PO Last administered on 08/18/16 12:34; Start 08/15/16 at 18:00; Stop 08/18/16 at 13:52; Status DC Mupirocin (Bactroban 2% Oint) 1 applic Q12HR TOPICAL Last administered on 09:00; Start 08/15/16 at 15:00 Hydrocortisone 1 applic 1 applic Q8H TOPICAL Last administered on 09/16/16 20: 00; Start 08/15/16 at 20:00 Levofloxacin/ Dextrose (Levaquin 750 Mg Premix Inj) 150 ml @ 100 mls/hr Q24H IV Last administered on 08/16/16 09:41; Start 08/16/16 at 08:00; Stop at 08:21; Status DC Lactobacillus Acidophilus 1 tab 1 tab TID PO Last administered on 09/15/16 12: 33; Start 08/16/16 at 09:00 Vancomycin HCl 1750 mg/Sodium Chloride 517.5 ml @ 258.75 mls/ hr ONCE ONCE IV Last administered on 08/17/16 10:21; Start 08/17/16 at 10:00; Stop 08/17/16 at 11:59; Status DC Pharmacy Profile Note 0 ml @ 0 mls/hr UNSCH OTHER ; Start 08/17/16 at 08:15; Stop 08/18/16 at 16:18; Status DC Piperacillin Sod/ Tazobactam Sod 50 ml @ 100 mls/hr Q6H IV Last administered on 08/18/16 09:15; Start 08/17/16 at 09:00; Stop 08/18/16 at 13:02; Status DC Sodium Chloride 1,000 ml @ 999 mls/hr BOLUS ONCE IV Last administered on 08/17 08:30; Start 08/17/16 at 08:30; Stop 08/17/16 at 09:30; Status DC Sodium Chloride 1,000 ml @ 200 mls/hr Q5H IV ; Start 08/17/16 at 09:00; Stop at 18:59; Status DC Vancomycin HCl/ Sodium Chloride (Vancomycin Inj/ NS 250 ml Inj) 250 ml @ 250 mls/hr Q12H IV Last administered on 08/18/16 12:33; Start 08/17/16 at 22:00; Stop 08/18/16 at 16:31; Status DC Miscellaneous Information SPECIFIC LAB TO BE [facility]... ONCE ONCE XX ; Start at 21:45; Stop 08/18/16 at 21:45; Status DC Olanzapine 10 mg 10 mg Q12H PRN IM acute agitation; Start 08/17/16 at 16:15; Stop 08/19/16 at 16:14; Status DC Levofloxacin/ Dextrose 150 ml @ 100 mls/hr Q24H IV ; Start 08/18/16 at 09:00; Stop 08/18/16 at 09:00; Status DC Levofloxacin/ Dextrose (Levaquin 750 Mg Premix Inj) 150 ml @ 100 mls/hr Q48H IV Last administered on 08/18/16 09:54; Start 08/18/16 at 09:00; Stop at 13:02; Status DC Miscellaneous Medication (ASP Crit: Doc ESBL, MDR A baumannii or P aer) 1 UNSCH X1 PRN XX PHARMACY DOCUMENTATION; Start 08/18/16 at 13:00; Stop 08/19/16 at 12: 59; Status DC Miscellaneous Medication 1 1 UNSCH X1 PRN XX PHARMACY DOCUMENTATION; Start at 13:00; Stop 08/19/16 at 12:59; Status DC Meropenem/Sodium Chloride (Merrem Inj/NS Inj) 100 ml @ 200 mls/hr Q8H IV Last administered on 08/21/16 06:14; Start 08/18/16 at 14:00; Stop 08/21/16 at 07:36 ; Status DC Gabapentin 600 mg 600 mg TID PO Last administered on 09/01/16 18:44; Start at 18:00; Stop 09/02/16 at 21:42; Status DC Sodium Chloride 1,000 ml @ 150 mls/hr Q6H40M IV Last administered on 17:44; Start 08/18/16 at 15:30; Stop 08/20/16 at 17:43; Status DC Sodium Chloride (NS 250 ml Inj) 250 ml @ 15 mls/hr ONCE ONCE IV Last administered on 08/19/16 06:34; Start 08/18/16 at 16:45; Stop 08/19/16 at 09:24 ; Status DC Acetaminophen (Tylenol) 650 mg Q4H PRN PO SEE LABEL COMMENTS; Start 08/18/16 at 16:45; Stop 08/18/16 at 20:46; Status DC Diphenhydramine HCl 25 mg 25 mg Q4H PRN PO SEE LABEL COMMENTS; Start 08/18/16 at 16:45; Stop 08/18/16 at 20:46; Status DC Linezolid (Zyvox 600 Mg Premix) 300 ml @ 300 mls/hr Q12H IV Last administered on 08/20/16 22:54; Start 08/19/16 at 08:00; Stop 08/21/16 at 07:36; Status DC Albumin Human (Albumin 25% Inj) 12.5 gm Q8H IV Last administered on 08/22/16 11:31; Start 08/20/16 at 20:00; Stop 08/22/16 at 13:51; Status DC Bumetanide (Bumex Inj) 1 mg Q8H IV PUSH Last administered on 08/22/16 12:44; Start 08/20/16 at 20:00; Stop 08/22/16 at 13:51; Status DC Metronidazole (Flagyl) 500 mg Q6HR PO ; Start 08/21/16 at 09:00; Stop 08/21/16 at 09:00; Status DC Vancomycin HCl (VANCOMYCIN for oral use only) 500 mg QID PO Last administered on 08/25/16 12:22; Start 08/21/16 at 09:00; Stop 08/25/16 at 13:53; Status DC Chlorothiazide Sodium (Diuril Inj) 250 mg ONCE ONCE IV Last administered on 21:03; Start 08/21/16 at 20:00; Stop 08/21/16 at 20:01; Status DC Potassium Phos/ Sodium Phos (K-Phos Neutral) 250 mg BID PO Last administered on 08/22/16 07:41; Start 08/21/16 at 21:00; Stop 08/22/16 at 20:59; Status DC Bumetanide (Bumetanide) 1 mg DAILY PO Last administered on 09/01/16 08:18; Start 08/23/16 at 09:00; Stop 09/03/16 at 23:47; Status DC Potassium Chloride (KCl) 20 meq ONCE ONCE PO Last administered on 08/22/16 14 :23; Start 08/22/16 at 14:00; Stop 08/22/16 at 14:01; Status DC Valsartan (Diovan) 40 mg DAILY PO Last administered on 09/01/16 08:18; Start 08/23/16 at 09:00; Stop 09/03/16 at 23:47; Status DC Vancomycin HCl (VANCOMYCIN for oral use only) 125 mg QID PO Last administered on 09/09/16 12:29; Start 08/25/16 at 18:00; Stop 09/09/16 at 17:59; Status DC Lorazepam (Ativan Inj) 0.5 mg UNSCH X1 IV Last administered on 08/25/16 18:32 ; Start 08/25/16 at 17:00; Stop 08/25/16 at 23:00; Status DC Diphenhydramine HCl (Benadryl) 25 mg ONCE ONCE PO Last administered on 22:15; Start 08/26/16 at 22:00; Stop 08/26/16 at 22:01; Status DC Lorazepam (Ativan Inj) 1 mg ONCE ONCE IV PUSH Last administered on 08/29/16 17 :10; Start 08/29/16 at 17:00; Stop 08/29/16 at 17:01; Status DC Hydromorphone HCl (Dilaudid Pf Inj) 0.5 mg ONCE ONCE IV PUSH Last administered on 08/29/16 17:11; Start 08/29/16 at 17:00; Stop 08/29/16 at 17:01; Status DC Olanzapine 5 mg 5 mg HS PO Last administered on 09/01/16 21:49; Start 08/30/16 at 21:15; Stop 09/03/16 at 23:47; Status DC Potassium Chloride/Lactated Ringer's (KCl Inj/Lr 1000 ml Inj) 1,010 ml @ 42 mls /hr Q24H IV Last administered on 09/10/16 07:14; Start 09/02/16 at 00:00; Stop 09/12/16 at 20:35; Status DC Vancomycin HCl (Vancomycin Inj) 1,000 mg STK-MED ONCE OTHER Last administered on 09/02/16 16:51; Start 09/02/16 at 16:51; Stop 09/02/16 at 16:59; Status DC Morphine Sulfate (Morphine Inj) 2 mg Q4HR PRN IM Pain 1-10 Last administered on 09/11/16 11:27; Start 09/03/16 at 16:15 Haloperidol Lactate (Haldol Inj) 1 mg Q6H PRN IM Psychosis, delirium Last administered on 09/04/16 09:17; Start 09/03/16 at 16:15; Status Hold Heparin Sodium (Porcine) (Heparin Inj) 5,000 units Q12HR SQ Last administered on 09/09/16 21:39; Start 09/04/16 at 09:00; Stop 09/10/16 at 07:38; Status DC Dronabinol (Marinol) 2.5 mg BID@11,16 PO Last administered on 09/10/16 13:54; Start 09/05/16 at 11:00 Dronabinol (Marinol) 2.5 mg ONCE ONCE PO Last administered on 09/04/16 21:51 ; Start 09/04/16 at 17:15; Stop 09/04/16 at 17:17; Status DC Aspirin (Ecotrin Ec) 81 mg DAILY PO Last administered on 09/17/16 09:01; Start 09/05/16 at 09:00 Carvedilol (Coreg) 3.125 mg Q12HR PO Last administered on 09/17/16 09:00; Start 09/05/16 at 09:00 Lorazepam (Ativan Inj) 0.5 mg COMPUTER REPAIR ENGINEER ONCE IV PUSH ; Start 09/06/16 at 18:15; Stop 09/06/16 at 18:30; Status DC Atorvastatin Calcium (Lipitor) 80 mg HS PO Last administered on 09/16/16 21:03 ; Start 09/06/16 at 21:00 Lorazepam (Ativan Inj) 0.5 mg COMPUTER REPAIR ENGINEER ONCE IV PUSH Last administered on 20:08; Start 09/07/16 at 20:15; Stop 09/07/16 at 20:16; Status DC Gadodiamide (Omniscan Pf Inj) 16 ml STK-MED ONCE IV Last administered on 20:45; Start 09/07/16 at 20:45; Stop 09/07/16 at 20:46; Status DC Lorazepam 0.5 mg 0.5 mg ONCE ONCE IV PUSH ; Start 09/08/16 at 13:00; Stop 09/08 at 13:01; Status DC Thiamine HCl/ Sodium Chloride (Thiamine Inj/NS Inj) 101 ml @ 101 mls/hr DAILY IV Last administered on 09/17/16 09:01; Start 09/09/16 at 10:00 Propofol (Diprivan 200 Mg/20 ml Inj) 200 mg STK-MED ONCE IV ; Start 09/02/16 at 12:00; Stop 09/09/16 at 13:30; Status DC Ephedrine Sulfate (ePHEDrine/NS 25 MG/5 ML SYR) 25 mg STK-MED ONCE IV ; Start at 12:00; Stop 09/09/16 at 13:30; Status DC Phenylephrine HCl (Neosynephrine/ NS 1000 Mcg/10ml Syr) 1,000 mcg STK-MED ONCE IV ; Start 09/02/16 at 12:00; Stop 09/09/16 at 13:30; Status DC Ondansetron HCl 4 mg 4 mg STK-MED ONCE IV PUSH ; Start 09/02/16 at 12:00; Stop 09/09/16 at 13:30; Status DC Sodium Chloride 250 ml @ As Directed STK-MED ONCE IV ; Start 09/02/16 at 12:00 ; Stop 09/09/16 at 13:30; Status DC Parenteral Electrolytes (Normosol R Inj) 1,000 ml @ As Directed STK-MED ONCE IV ; Start 09/02/16 at 12:00; Stop 09/09/16 at 13:30; Status DC Levothyroxine Sodium (Synthroid) 175 mcg DAILY@06 PO ; Start 09/10/16 at 06:00; Status UNV Levothyroxine Sodium (Synthroid) 150 mcg DAILY@06 PO Last administered on 05:53; Start 09/10/16 at 06:00 Levothyroxine Sodium (Synthroid) 25 mcg DAILY@06 PO Last administered on 05:53; Start 09/10/16 at 06:00 Fentanyl Citrate (fentaNYL INJ) 100 mcg STK-MED ONCE IV ; Start 09/02/16 at 12: 00; Stop 09/10/16 at 12:44; Status DC Diphenhydramine HCl (Benadryl 2% Cream) 1 applic TID PRN TOPICAL ITCHING; Start 09/14/16 at 14:00 A/P Assessment and Plan A/P -s/p right AKA for nonhealing ischemic wound. Stump well healing. management per Dr. Taylor. - Peripheral vascular disease with nonhealing left lower extremity wound with necrotic tendon, several necrotic toes-status post consultation with 3 vascular surgeons, plastic surgery, flight test shop mechanic. family declines amputation. topical hyperbaric oxygen therapy (numo bag) purchased by family. this therapy can be given in hospital or at home, but is not FDA approved. [facility] is currently not accepting the patient due to the family requesting numo bag, as well as the issue with wound healing. - Severe neuropathic pain - continue Neurontin. -Severe acute metabolic encephalopathy- continues to improve -exhaustive workup has been performed including initial LP which showed pleocytosis with lymphocyte predominance, see previous notes - Appreciate input from neurology, hematology, palliative care - EEG 09/04 -moderate encephalopathy. -MRI brain with and without contrast 09/07 negative -2nd neuro opinion (requested per family) with Dr. Bauer appreciated, family declines repeat LP as patient improving - C. Diff colitis, s/p treatment with vancomycin. ID/Dr. Quispe. - UTI - Microbiology grew ESBL ( 09/14/16) -d/w today; no need to treat at this time. -Diabetes mellitus type II, currently with good Accu-Chek reads- Coverage with SSI. Monitor Accu-Cheks. Monitor for hypoglycemia. -Hypothyroidism - TSH on 09/08 22, Free T3 low at 0.72, free T4 nml. increased levothyroxine 150 g ->175. repeat TSH in several weeks. - Hypertension - Cardiomyopathy - EF 3540% -Continue carvedilol low dose. will consider JOYCE inhibitor if blood pressure will tolerate and renal function remained stable. currently normotensive. S/p cardiology eval. -Acute kidney injury, resolved. -Chronic kidney disease stage III. Improved, creatinine stable around 1. repeat labs in a.m. -Severe malnutrition - dietary consult noted. Prealbumin is 7. Hopefully patient's by mouth intake will improve as she improves mental status. Consulted GI for eval for possible PEG tube. Started Marinol to stimulate appetite. Daughter Blanche wants to give the patient several days for improvement prior to considering PEG tube. Continue ensure, add multivitamin. - Abnormal uterine appearance - seen on abdominal and pelvis CT -pelvic ultrasound showing prominent endometrium, tumor markers negative, no history of vaginal bleeding -Heme on consult was requested per oncology service. Consider endometrial biopsy as outpatient. MRI abdomen canceled per family (did not want her sedated) . Anemia of chronic illness - stable, monitor transfuse prn Hb<7. decubitus ulcer- is being followed-up by wound care;previously d/w the comptroller; plastic surgery reconsulted. Full code. Heparin SQ. Discharge Planning difficult discharge. d/w the case management today; [facility] is not accepting the patient since there will be no vascular surgery available. no accepting facility yet. called the daughter and gave her an update. Conrad Clancy MD Sep 17, 2016 11:30
[2016-09-17 12:00] VITALS: BP 140/68; PULSE 72; RESP 18; TEMP 98.2; O2SAT 97
[2016-09-17 16:00] VITALS: BP 125/60; PULSE 78; RESP 18; TEMP 98.1; O2SAT 90
[2016-09-17 20:00] VITALS: BP 126/60; PULSE 85; RESP 18; TEMP 98.4; O2SAT 96
[2016-09-17] MEDS: ATORVASTATIN 80 MG TAB PO SCH (20:36)
[2016-09-17] MEDS: MELATONIN 5 MG TAB PO SCH (20:37)
[2016-09-18] VITALS: BP 101/53; PULSE 83; RESP 18; TEMP 99.2; O2SAT 97
[2016-09-18] MEDS: HYDROCORTISONE 1% CREAM 30 GM TOPICAL SCH ×3 (03:50→22:08)
[2016-09-18 04:00] VITALS: BP 133/63; PULSE 86; RESP 18; TEMP 97.2; O2SAT 95
[2016-09-18] MEDS: LEVOTHYROXINE SODIUM 25 MCG TAB PO SCH (05:58)
[2016-09-18] MEDS: LEVOTHYROXINE SODIUM 150 MCG TAB PO SCH (05:58)
[2016-09-18] MEDS: INSULIN ASPART SUPPLEMENTAL SCALE SQ SCH ×4 (05:59→21:00)
[2016-09-18 08:00] VITALS: BP 111/56; PULSE 82; RESP 20; TEMP 98.9; O2SAT 98
[2016-09-18] MEDS: LACTOBACILLUS ACIDOPHILUS TAB PO SCH ×4 (09:00→17:40)
[2016-09-18] MEDS: THIAMINE INJ 100 MG in SODIUM CHLORIDE 0.9% INJ 100 ML IV SCH (09:00)
--- NOTE | 2016-09-18 09:02 | HHI.PR ---
Subjective Remarks fairly comfortable with no new complaints. pain is controlled. no fever. Objective Vitals Vital Signs Date Time Temp Pulse Resp B/P Pulse Ox O2 Delivery O2 Flow Rate FiO2 09/18/16 08:00 98.9 82 20 111/56 98 09/18/16 04:00 97.2 86 18 133/63 95 09/18/16 00:00 99.2 83 18 101/53 97 09/17/16 21:00 Room Air 09/17/16 20:00 98.4 85 18 126/60 96 09/17/16 16:00 98.1 78 18 125/60 90 09/17/16 12:00 98.2 72 18 140/68 97 I/O 09/17/16 09/17/16 09/17/16 09/18/16 09/18/16 09/18/16 07:00 15:00 23:00 07:00 15:00 23:00 Intake Total 240 ml 720 ml 240 ml 100 ml Balance 240 ml 720 ml 240 ml 100 ml Intake Oral 240 ml 720 ml 240 ml 100 ml # Voids 0 0 0 # Bowel Movements 1 1 0 0 Imaging Last Impressions Brain MRI 09/07/16 0000 Signed Impressions: Service Date/Time: Wednesday, September 07, 2016 20:26 - CONCLUSION: 1. No acute findings. No significant change from August 25, 2016. No abnormal enhancement post contrast. Mild chronic white matter ischemic changes. Rolando Sharif MD Pelvis Ultrasound 09/05/16 0000 Signed Impressions: Service Date/Time: Monday, September 05, 2016 19:53 - CONCLUSION: Enlarged uterus with prominence of the endometrium. Alfredo Etienne MD Chest CT 09/05/16 0000 Signed Impressions: Service Date/Time: Monday, September 05, 2016 08:47 - CONCLUSION: 1. No worrisome masses. Please see above. 2. Dilatation of the aorta 4.3 cm. 3. Atherosclerosis. Addy Hillman MD Abdomen/Pelvis CT 09/05/16 0000 Signed Impressions: Service Date/Time: Monday, September 05, 2016 08:47 - CONCLUSION: 1. Fat containing umbilical hernias. 2. Extensive atherosclerosis. 3. Indeterminate low-density lesion in the liver, incompletely characterized without contrast. 4. Basilar air space disease and atelectasis with small pericardial effusion. 5. Abnormal appearance of the uterus as described above. A pelvic ultrasound will be helpful for further assessment on a nonemergent outpatient basis. Addy Hillman MD Lumbar Puncture Fluoroscopy 08/29/16 0000 Signed Impressions: Service Date/Time: Monday, August 29, 2016 16:39 - CONCLUSION: Uncomplicated fluoroscopically guided lumbar puncture with pressures as above. Alfredo Etienne MD Chest X-Ray 08/19/16 0000 Signed Impressions: Service Date/Time: Friday, August 19, 2016 18:46 - CONCLUSION: 1. Bibasilar streakiness consistent with atelectasis and/or infiltrates. 2. Cardiomegaly. 3. Poor inspiratory result. Shamar Banuelos MD Upper Extremity Ultrasound 07/28/16 0000 Signed Impressions: Service Date/Time: Thursday, July 28, 2016 14:34 - CONCLUSION: No DVT is identified within the right upper extremity. Alfredo Eng MD Head CT 07/19/16 0000 Signed Impressions: Service Date/Time: Tuesday, July 19, 2016 09:58 - CONCLUSION: No acute intracranial findings. João Otoole MD Foot X-Ray 07/16/16 0000 Signed Impressions: Service Date/Time: Saturday, July 16, 2016 17:34 - CONCLUSION: 1. Nonspecific soft tissue swelling. No acute bone destruction demonstrated. 2. Mild talonavicular and navicular/cuneiform degenerative changes. 3. Second through fifth hammertoe. 4. Moderate-sized heel spur. Alfredo Sneed MD Objective Remarks GENERAL: in no apparent distress. CARDIOVASCULAR: Regular rate and irregular rhythm without murmurs, gallops, or rubs. RESPIRATORY: Clear to auscultation. Breath sounds equal bilaterally. No wheezes , rales, or rhonchi. GASTROINTESTINAL: Abdomen soft, non-tender, nondistended. 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 NEURO: awake and alert Procedures 08/08/2016 PROCEDURE 1. Selective right lower extremity arteriogram. 2. Balloon angioplasty with a 4 mm x 2200 mm and then a 5 x 200 mm [employer] angioplasty balloon of the right superficial femoral and proximal popliteal artery. 07/31/2016 Excision and debridement of both legs, extensive necrotic wounds approximately 30 x 25 cm area on each side, total 1000 to 1100 cm square, down to the subcutaneous tissue and tendon on the left side. 09/03/2016 Right [id number] amputation Medications and IVs Current Medications Sodium Chloride (NS 1000 ml Inj) 1,000 ml @ 84 mls/hr [id number] IV Last administered on 08/05/16 16:12; Start 07/15/16 at 19:42; Stop 08/18/16 at 15:34 ; Status DC IV Flush (NS Flush) 2 ml UNSCH PRN IV FLUSH FLUSH AFTER USING IV ACCESS Last administered on 08/12/16 05:30; Start 07/15/16 at 19:45 IV Flush (NS Flush) 2 ml BID IV FLUSH Last administered on 09/17/16 20:37; Start 07/15/16 at 21:00 Fentanyl Citrate (fentaNYL INJ) 50 mcg Q3H PRN IV PUSH Pain scale 7-10 &/or sedation Last administered on 07/15/16 21:44; Start 07/15/16 at 19:45; Stop at 11:51; Status DC Famotidine (Pepcid Inj) 20 mg Q12HR IV PUSH Last administered on 07/15/16 20: 19; Start 07/15/16 at 21:00; Stop 07/15/16 at 21:24; Status DC Ondansetron HCl (Zofran Inj) 4 mg Q6H PRN IV NAUSEA OR VOMITING Last administered on 07/31/16 13:23; Start 07/15/16 at 19:45; Stop 08/12/16 at 20:17 ; Status DC Metoclopramide HCl (Reglan Inj) 5 mg Q6H PRN IV NAUSEA OR VOMITING Last administered on 09/06/16 21:32; Start 07/15/16 at 19:45 Docusate Sodium (Colace) 100 mg BID PO Last administered on 08/07/16 21:00; Start 07/15/16 at 21:00; Stop 08/08/16 at 22:08; Status DC Albuterol/ Ipratropium (Duoneb Neb) 1 ampule Q2HR NEB PRN INH WHEEZING; Start 07/15/16 at 19:45 Heparin Sodium (Porcine) (Heparin Inj) 5,000 units Q8HR SQ Last administered on 08/28/16 12:46; Start 07/15/16 at 22:00; Stop 09/03/16 at 23:47; Status DC Miscellaneous Information 1 [id number] Last administered on 07/15/16 19:45; Start 07/15/16 at 19:45; Stop 09/04/16 at 03:06; Status DC Chlorhexidine Gluconate (Chlorhexidine 2% Cloth) Taper DAILY@04 TOP Last administered on 07/17/16 03:11; Start 07/16/16 at 04:00; Stop 09/04/16 at 03:06 ; Status DC Chlorhexidine Gluconate (Chlorhexidine 2% Cloth) 3 pack UNSCH PRN TOP HYGIENIC CARE; Start 07/15/16 at 19:45; Stop 09/04/16 at 03:06; Status DC Acetaminophen (Ofirmev Inj) 1,000 mg Q6H PRN IV PAIN SCALE 1 TO 6; Start at 20:00; Stop 07/18/16 at 11:51; Status DC Ketorolac Tromethamine (Toradol Inj) 30 mg Q6H PRN IM PAIN SCALE 1 TO 7; Start 07/15/16 at 20:00; Stop 07/15/16 at 20:10; Status DC Ketorolac Tromethamine (Toradol Inj) 30 mg Q6H PRN IV PUSH PAIN 1-6 Last administered on 07/15/16 20:34; Start 07/15/16 at 20:15; Stop 07/18/16 at 11:51 ; Status DC Carvedilol (Coreg) 25 mg BID PO Last administered on 08/17/16 10:24; Start at 21:00; Stop 08/17/16 at 16:06; Status DC Fluconazole (Diflucan) 75 mg DAILY@17 PO Last administered on 07/16/16 17:03; Start 07/16/16 at 17:00; Stop 07/17/16 at 08:09; Status DC Isosorbide Dinitrate (Isordil) 5 mg Q8HR PO Last administered on 09/02/16 05: 38; Start 07/15/16 at 22:00; Stop 09/03/16 at 23:47; Status DC Lactobacillus Acidophilus (Lactinex) 1 tab TID PO Last administered on 08:32; Start 07/16/16 at 09:00; Stop 08/25/16 at 08:59; Status DC Levofloxacin (Levaquin) 250 mg Q48H PO Last administered on 07/21/16 21:05; Start 07/15/16 at 22:00; Stop 07/23/16 at 16:37; Status DC Levothyroxine Sodium (Synthroid) 150 mcg DAILY@06 PO Last administered on 05:47; Start 07/16/16 at 06:00; Stop 09/09/16 at 17:57; Status DC Liothyronine Sodium (Cytomel) 5 mcg DAILY PO Last administered on 09/17/16 09: 00; Start 07/16/16 at 09:00 Non-Formulary Medication 325 mg DAILY PO ; Start 07/16/16 at 09:00; Status UNV Miscellaneous (Pill Splitter) 1 ea UNSCH PRN OTHER SEE LABEL COMMENTS; Start at 21:30 Famotidine (Pepcid Inj) 10 mg Q12HR IV PUSH Last administered on 07/17/16 07: 29; Start 07/16/16 at 09:00; Stop 07/18/16 at 10:59; Status DC Aspirin (Ecotrin Ec) 325 mg DAILY PO Last administered on 08/25/16 08:30; Start 07/16/16 at 09:00; Stop 08/25/16 at 16:10; Status DC Etomidate (Amidate Inj) 20 mg STK-MED ONCE .ROUTE ; Start 07/16/16 at 17:07; Stop 07/16/16 at 17:08; Status DC Famotidine (Pepcid Inj) 20 mg Q12HR IV PUSH Last administered on 08/12/16 09: 05; Start 07/18/16 at 21:00; Stop 08/12/16 at 20:17; Status DC Hydromorphone HCl (Dilaudid Pf Inj) 0.5 mg ONCE ONCE IV PUSH Last administered on 08/04/16 18:00; Start 07/18/16 at 11:45; Stop 07/18/16 at 11:46 ; Status DC Hydromorphone HCl (Dilaudid Pf Inj) 0.5 mg Q4H PRN IV PUSH breakthrough pain / dresing lori Last administered on 08/31/16 05:32; Start 07/18/16 at 11:45; Stop 09/03/16 at 23:47; Status DC Acetaminophen/ Hydrocodone Bitart ([place] 5-325 Mg) 1 tab Q6H PRN PO pain 2-10 Last administered on 08/12/16 09:04; Start 07/18/16 at 11:45; Stop 08/12/16 at 20:17; Status DC Diphenhydramine HCl 50 mg 50 mg STK-MED ONCE .ROUTE ; Start 07/19/16 at 11:20; Stop 07/19/16 at 11:21; Status DC Levetriacetam/ Sodium Chloride (Keppra Inj/NS Inj) 105 ml @ 420 mls/hr Q12HR IV Last administered on 07/20/16 08:19; Start 07/19/16 at 13:00; Stop at 16:25; Status DC Haloperidol Lactate (Haldol Inj) 2 mg Q6H PRN IM aggittation Last administered on 07/30/16 01:29; Start 07/19/16 at 12:30; Stop 09/03/16 at 23:47; Status DC Lorazepam 1 mg 1 mg Q6H PRN IV PUSH seizures/agiatation Last administered on 06:09; Start 07/19/16 at 12:30; Stop 09/03/16 at 23:47; Status DC Valproate Sodium 500 mg/Sodium Chloride 105 ml @ 105 mls/hr Q8H IV Last administered on 07/25/16 09:26; Start 07/20/16 at 18:00; Stop 07/25/16 at 09:54; Status DC Cefepime HCl/ Sodium Chloride (Maxipime Inj/NS Inj) 100 ml @ 200 mls/hr Q12H IV Last administered on 07/27/16 02:43; Start 07/21/16 at 15:00; Stop 07/27/16 at 09:00; Status DC Dextrose (D50w (Vial) Inj) 25 ml UNSCH PRN IV PUSH HYPOGLYCEMIA-SEE COMMENTS; Start 07/23/16 at 11:00 Glucagon (Glucagon Inj) 1 mg UNSCH PRN OTHER HYPOGLYCEMIA-SEE COMMENTS; Start 07/23/16 at 11:00 Insulin Aspart (NovoLOG SUPPLEMENTAL SCALE) 1 ACHS SLIDING SCALE SQ Last administered on 09/18/16 05:59; Start 07/23/16 at 11:00 Potassium Chloride (KCl) 40 meq ONCE ONCE PO Last administered on 07/24/16 13: 00; Start 07/24/16 at 13:00; Stop 07/24/16 at 13:01; Status DC Valproic Acid (Depakene) 500 mg Q8HR PO Last administered on 07/26/16 14:52; Start 07/25/16 at 15:00; Stop 07/26/16 at 17:39; Status DC Potassium Chloride (KCl) 30 meq ONCE ONCE PO Last administered on 07/26/16 19: 30; Start 07/26/16 at 16:30; Stop 07/26/16 at 16:36; Status DC Potassium Chloride (KCl) 30 meq ONCE ONCE PO Last administered on 07/26/16 22: 16; Start 07/26/16 at 20:00; Stop 07/26/16 at 20:01; Status DC Valproic Acid (Depakene) 250 mg Q12HR PO Last administered on 09/04/16 09:07; Start 07/27/16 at 09:00; Stop 09/04/16 at 16:16; Status DC Hydromorphone HCl (Dilaudid Pf Inj) 0.5 mg ONCE ONCE IV PUSH Last administered on 07/27/16 10:42; Start 07/27/16 at 10:45; Stop 07/27/16 at 10:46; Status DC Valsartan (Diovan) 80 mg HS PO Last administered on 08/19/16 21:58; Start 07/27 at 21:00; Stop 08/20/16 at 18:58; Status DC Enalaprilat (Vasotec Inj) 1.25 mg Q8H PRN IV PUSH SBP >180 OR DBP >100; Start 07/28/16 at 16:00 Fluconazole 100 mg 100 mg DAILY PO Last administered on 08/05/16 11:34; Start 07/30/16 at 09:45; Stop 08/05/16 at 16:53; Status DC Ceftriaxone Sodium/Sodium Chloride (Rocephin Inj/NS Inj) 100 ml @ 200 mls/hr Q24H IV Last administered on 08/01/16 09:45; Start 07/30/16 at 10:00; Stop 03/10 at 11:59; Status DC Potassium Chloride (KCl) 30 meq ONCE ONCE PO Last administered on 07/30/16 12: 12; Start 07/30/16 at 09:45; Stop 07/30/16 at 09:53; Status DC Potassium Chloride (KCl) 30 meq ONCE ONCE PO Last administered on 07/30/16 14: 00; Start 07/30/16 at 14:00; Stop 07/30/16 at 14:01; Status DC Insulin Detemir (Levemir Inj) 5 units HS SQ Last administered on 09/03/16 20: 17; Start 07/30/16 at 21:00; Status Hold Melatonin (Melatonin) 5 mg HS PO Last administered on 09/15/16 21:03; Start at 21:00 Bupivacaine HCl (Marcaine Pf 0.5% Inj) 30 ml STK-MED ONCE .ROUTE ; Start at 10:12; Stop 07/31/16 at 10:13; Status DC Bupivacaine HCl/ Epinephrine Bitart (Sensorcaine-Epi 0.5% 50 ml Inj) 50 ml STK- MED ONCE .ROUTE ; Start 07/31/16 at 10:12; Stop 07/31/16 at 10:13; Status DC Bacitracin (Baciguent Oint) 15 applic STK-MED ONCE .ROUTE ; Start 07/31/16 at 10: 12; Stop 07/31/16 at 10:13; Status DC Dexamethasone Sodium Phosphate (Decadron Inj) 4 mg STK-MED ONCE .ROUTE Last administered on 07/31/16 10:24; Start 07/31/16 at 10:22; Stop 07/31/16 at 10:23; Status DC Famotidine (Pepcid Inj) 20 mg STK-MED ONCE IV PUSH Last administered on 10:23; Start 07/31/16 at 10:23; Stop 07/31/16 at 10:27; Status DC Fentanyl Citrate 500 mcg 500 mcg STK-MED ONCE .ROUTE ; Start 07/31/16 at 12:13; Stop 07/31/16 at 12:14; Status DC Gentamicin Sulfate/Sodium Chloride (Gentamicin Inj/ NS Irr Btl) 1,005 ml @ 0 mls/hr UNSCH PRN IRRIGATION DRESSING CHANGES; Start 07/31/16 at 13:30 Miscellaneous Information ALL NURSING DEPARTME... UNSCH PRN XX SEE LABEL COMMENTS; Start 07/31/16 at 13:30; Stop 08/01/16 at 13:29; Status DC Propofol (Diprivan 200 Mg/20 ml Inj) 200 mg STK-MED ONCE IV ; Start 07/31/16 at 12:42; Stop 08/04/16 at 12:43; Status DC Ephedrine Sulfate (ePHEDrine/NS 25 MG/5 ML SYR) 25 mg STK-MED ONCE IV ; Start at 12:42; Stop 08/04/16 at 12:43; Status DC Phenylephrine HCl (Neosynephrine/ NS 1000 Mcg/10ml Syr) 1,000 mcg STK-MED ONCE IV ; Start 07/31/16 at 12:42; Stop 08/04/16 at 12:43; Status DC Ondansetron HCl (Zofran Inj) 4 mg STK-MED ONCE IV PUSH ; Start 07/31/16 at 12:42 ; Stop 08/04/16 at 12:43; Status DC Prednisone (Deltasone) 50 mg Q6H PO Last administered on 08/08/16 04:00; Start 08/07/16 at 16:00; Stop 08/08/16 at 04:01; Status DC Diphenhydramine HCl (Benadryl Inj) 50 mg ONCE ONCE IV ; Start 08/07/16 at 16:00 ; Stop 08/07/16 at 16:01; Status DC Midazolam HCl (Versed Inj) 2 mg STK-MED ONCE .ROUTE ; Start 08/08/16 at 08:24; Stop 08/08/16 at 08:25; Status DC Diphenhydramine HCl (Benadryl Inj) 50 mg STK-MED ONCE .ROUTE ; Start 08/08/16 at 08:24; Stop 08/08/16 at 08:25; Status DC Hydrocortisone Sodium Succinate (SoluCORTEF INJ) 100 mg STK-MED ONCE .ROUTE Last administered on 3/17/17at 08:52; Start 08/08/16 at 08:50; Stop 08/08/16 at 08:51; Status DC Ketamine HCl (Ketalar Inj) 500 mg STK-MED ONCE .ROUTE ; Start 08/08/16 at 08:59 ; Stop 08/08/16 at 09:00; Status DC Iohexol 100 ml 100 ml STK-MED ONCE OTHER Last administered on 08/08/16t 08:50; Start 08/08/16 at 08:50; Stop 08/08/16 at 09:45; Status DC Nitroglycerin/ Dextrose (Nitroglycerin-Dextrose Inj) 250 ml @ As Directed STK- MED ONCE .ROUTE ; Start 08/08/16 at 09:57; Stop 08/08/16 at 09:58; Status DC Iohexol (Omnipaque 300 Inj) 50 ml STK-MED ONCE OTHER Last administered on t 10:10; Start 08/08/16 at 10:10; Stop 08/08/16 at 10:31; Status DC Midazolam HCl (Versed Inj) 2 mg STK-MED ONCE .ROUTE ; Start 08/08/16 at 11:01; Stop 08/08/16 at 11:02; Status DC Fentanyl Citrate (fentaNYL INJ) 250 mcg STK-MED ONCE .ROUTE ; Start 08/08/16 at 11:02; Stop 08/08/16 at 11:03; Status DC Fentanyl Citrate (fentaNYL INJ) 100 mcg STK-MED ONCE .ROUTE ; Start 08/08/16 at 11:02; Stop 08/08/16 at 11:03; Status DC Morphine Sulfate (Morphine Inj) 4 mg STK-MED ONCE .ROUTE ; Start 08/08/16 at 11: 03; Stop 08/08/16 at 11:04; Status DC Morphine Sulfate (*morphine INJ PERIprocedure ONLY) 8 mg STK-MED ONCE .ROUTE Last administered on 08/08/16t 11:17; Start 08/08/16 at 11:17; Stop 08/08/16 at 11:18; Status DC Miscellaneous Information ALL NURSING DEPARTME... UNSCH PRN XX SEE LABEL COMMENTS; Start 08/08/16 at 12:30; Stop 08/09/16 at 12:29; Status DC Lorazepam (Ativan) 0.25 mg Q12H PRN PO ANXIETY; Start 08/09/16 at 14:00; Stop 08/11/16 at 14:33; Status DC Propofol (Diprivan 200 Mg/20 ml Inj) 800 mg STK-MED ONCE IV ; Start 08/08/16 at 12:00; Stop 08/11/16 at 12:57; Status DC Heparin Sodium (Porcine) (Heparin Inj) 5,000 units STK-MED ONCE OTHER ; Start at 12:00; Stop 08/11/16 at 13:02; Status DC Potassium Chloride (KCl) 10 meq Q8HR PO Last administered on 08/16/16 06:08; Start 08/11/16 at 14:00; Stop 08/16/16 at 13:59; Status DC Clonazepam (KlonoPIN) 0.5 mg Q8HR PO Last administered on 08/12/16 05:29; Start 08/11/16 at 14:45; Stop 08/12/16 at 12:49; Status DC Diphenhydramine HCl (Benadryl) 25 mg ONCE ONCE PO Last administered on 17:50; Start 08/11/16 at 14:45; Stop 08/11/16 at 15:05; Status DC Clonazepam (KlonoPIN) 0.5 mg Q8H PRN PO ANXIETY Last administered on 08/30/16 22:50; Start 08/12/16 at 12:45; Stop 09/03/16 at 23:47; Status DC Gabapentin (Neurontin) 200 mg TID PO Last administered on 08/12/16 14:59; Start 08/12/16 at 13:00; Stop 08/14/16 at 16:07; Status DC Methadone HCl (Dolophine) 2.5 mg Q12HR PO Last administered on 09/01/16 21:49 ; Start 08/12/16 at 21:00; Stop 09/03/16 at 23:47; Status DC Doxycycline Hyclate (Vibratab) 100 mg Q12HR PO Last administered on 08/16/16 22:41; Start 08/12/16 at 22:45; Stop 08/17/16 at 08:21; Status DC Quetiapine Fumarate (SEROquel) 12.5 mg ONCE ONCE PO Last administered on 10:45; Start 08/13/16 at 10:45; Stop 08/13/16 at 10:50; Status DC Quetiapine Fumarate (SEROquel) 12.5 mg BID PO Last administered on 08/13/16 20 :32; Start 08/13/16 at 21:00; Stop 08/14/16 at 12:41; Status DC Gabapentin (Neurontin) 300 mg ONCE ONCE PO Last administered on 08/13/16 11: 00; Start 08/13/16 at 11:00; Stop 08/13/16 at 11:09; Status DC Acetaminophen (Tylenol) 500 mg Q6H PRN PO FEVER >100.4 Last administered on 17:12; Start 08/13/16 at 17:15 Quetiapine Fumarate (SEROquel) 6.25 mg HS PO Last administered on 09/01/16 21: 00; Start 08/14/16 at 21:00; Stop 09/03/16 at 23:47; Status DC Quetiapine Fumarate (SEROquel) 6.25 mg DAILY PRN PO agitated delirium Last administered on 09/01/16 12:37; Start 08/14/16 at 12:45; Stop 09/03/16 at 23:47 ; Status DC Gabapentin (Neurontin) 300 mg TID PO Last administered on 08/15/16 13:25; Start 08/15/16 at 09:00; Stop 08/15/16 at 14:20; Status DC Gabapentin (Neurontin) 400 mg ONCE ONCE PO ; Start 08/14/16 at 16:15; Stop at 16:15; Status DC Gabapentin (Neurontin) 200 mg ONCE ONCE PO Last administered on 08/14/16 17: 00; Start 08/14/16 at 16:30; Stop 08/14/16 at 16:33; Status DC Gabapentin (Neurontin) 400 mg TID PO Last administered on 08/18/16 12:34; Start 08/15/16 at 18:00; Stop 08/18/16 at 13:52; Status DC Mupirocin (Bactroban 2% Oint) 1 applic Q12HR TOPICAL Last administered on 20:37; Start 08/15/16 at 15:00 Hydrocortisone 1 applic 1 applic Q8H TOPICAL Last administered on 09/18/16 03: 50; Start 08/15/16 at 20:00 Levofloxacin/ Dextrose (Levaquin 750 Mg Premix Inj) 150 ml @ 100 mls/hr Q24H IV Last administered on 08/16/16 09:41; Start 08/16/16 at 08:00; Stop at 08:21; Status DC Lactobacillus Acidophilus 1 tab 1 tab TID PO Last administered on 09/15/16 12: 33; Start 08/16/16 at 09:00 Vancomycin HCl 1750 mg/Sodium Chloride 517.5 ml @ 258.75 mls/ hr ONCE ONCE IV Last administered on 08/17/16 10:21; Start 08/17/16 at 10:00; Stop 08/17/16 at 11:59; Status DC Pharmacy Profile Note 0 ml @ 0 mls/hr UNSCH OTHER ; Start 08/17/16 at 08:15; Stop 08/18/16 at 16:18; Status DC Piperacillin Sod/ Tazobactam Sod 50 ml @ 100 mls/hr Q6H IV Last administered on 08/18/16 09:15; Start 08/17/16 at 09:00; Stop 08/18/16 at 13:02; Status DC Sodium Chloride 1,000 ml @ 999 mls/hr BOLUS ONCE IV Last administered on 08/17 08:30; Start 08/17/16 at 08:30; Stop 08/17/16 at 09:30; Status DC Sodium Chloride 1,000 ml @ 200 mls/hr Q5H IV ; Start 08/17/16 at 09:00; Stop at 18:59; Status DC Vancomycin HCl/ Sodium Chloride (Vancomycin Inj/ NS 250 ml Inj) 250 ml @ 250 mls/hr Q12H IV Last administered on 08/18/16 12:33; Start 08/17/16 at 22:00; Stop 08/18/16 at 16:31; Status DC Miscellaneous Information SPECIFIC LAB TO BE ... ONCE ONCE XX ; Start at 21:45; Stop 08/18/16 at 21:45; Status DC Olanzapine 10 mg 10 mg Q12H PRN IM acute agitation; Start 08/17/16 at 16:15; Stop 08/19/16 at 16:14; Status DC Levofloxacin/ Dextrose 150 ml @ 100 mls/hr Q24H IV ; Start 08/18/16 at 09:00; Stop 08/18/16 at 09:00; Status DC Levofloxacin/ Dextrose (Levaquin 750 Mg Premix Inj) 150 ml @ 100 mls/hr Q48H IV Last administered on 08/18/16 09:54; Start 08/18/16 at 09:00; Stop at 13:02; Status DC Miscellaneous Medication (ASP Crit: Doc ESBL, MDR A baumannii or P aer) 1 UNSCH X1 PRN XX PHARMACY DOCUMENTATION; Start 08/18/16 at 13:00; Stop 08/19/16 at 12: 59; Status DC Miscellaneous Medication 1 1 UNSCH X1 PRN XX PHARMACY DOCUMENTATION; Start at 13:00; Stop 08/19/16 at 12:59; Status DC Meropenem/Sodium Chloride (Merrem Inj/NS Inj) 100 ml @ 200 mls/hr Q8H IV Last administered on 08/21/16 06:14; Start 08/18/16 at 14:00; Stop 08/21/16 at 07:36 ; Status DC Gabapentin 600 mg 600 mg TID PO Last administered on 09/01/16 18:44; Start at 18:00; Stop 09/02/16 at 21:42; Status DC Sodium Chloride 1,000 ml @ 150 mls/hr Q6H40M IV Last administered on 17:44; Start 08/18/16 at 15:30; Stop 08/20/16 at 17:43; Status DC Sodium Chloride (NS 250 ml Inj) 250 ml @ 15 mls/hr ONCE ONCE IV Last administered on 08/19/16 06:34; Start 08/18/16 at 16:45; Stop 08/19/16 at 09:24 ; Status DC Acetaminophen (Tylenol) 650 mg Q4H PRN PO SEE LABEL COMMENTS; Start 08/18/16 at 16:45; Stop 08/18/16 at 20:46; Status DC Diphenhydramine HCl 25 mg 25 mg Q4H PRN PO SEE LABEL COMMENTS; Start 08/18/16 at 16:45; Stop 08/18/16 at 20:46; Status DC Linezolid (Zyvox 600 Mg Premix) 300 ml @ 300 mls/hr Q12H IV Last administered on 08/20/16 22:54; Start 08/19/16 at 08:00; Stop 08/21/16 at 07:36; Status DC Albumin Human (Albumin 25% Inj) 12.5 gm Q8H IV Last administered on 08/22/16 11:31; Start 08/20/16 at 20:00; Stop 08/22/16 at 13:51; Status DC Bumetanide (Bumex Inj) 1 mg Q8H IV PUSH Last administered on 08/22/16 12:44; Start 08/20/16 at 20:00; Stop 08/22/16 at 13:51; Status DC Metronidazole (Flagyl) 500 mg Q6HR PO ; Start 08/21/16 at 09:00; Stop 08/21/16 at 09:00; Status DC Vancomycin HCl (VANCOMYCIN for oral use only) 500 mg QID PO Last administered on 08/25/16 12:22; Start 08/21/16 at 09:00; Stop 08/25/16 at 13:53; Status DC Chlorothiazide Sodium (Diuril Inj) 250 mg ONCE ONCE IV Last administered on 21:03; Start 08/21/16 at 20:00; Stop 08/21/16 at 20:01; Status DC Potassium Phos/ Sodium Phos (K-Phos Neutral) 250 mg BID PO Last administered on 08/22/16 07:41; Start 08/21/16 at 21:00; Stop 08/22/16 at 20:59; Status DC Bumetanide (Bumetanide) 1 mg DAILY PO Last administered on 09/01/16 08:18; Start 08/23/16 at 09:00; Stop 09/03/16 at 23:47; Status DC Potassium Chloride (KCl) 20 meq ONCE ONCE PO Last administered on 08/22/16 14 :23; Start 08/22/16 at 14:00; Stop 08/22/16 at 14:01; Status DC Valsartan (Diovan) 40 mg DAILY PO Last administered on 09/01/16 08:18; Start 08/23/16 at 09:00; Stop 09/03/16 at 23:47; Status DC Vancomycin HCl (VANCOMYCIN for oral use only) 125 mg QID PO Last administered on 09/09/16 12:29; Start 08/25/16 at 18:00; Stop 09/09/16 at 17:59; Status DC Lorazepam (Ativan Inj) 0.5 mg UNSCH X1 IV Last administered on 08/25/16 18:32 ; Start 08/25/16 at 17:00; Stop 08/25/16 at 23:00; Status DC Diphenhydramine HCl (Benadryl) 25 mg ONCE ONCE PO Last administered on 22:15; Start 08/26/16 at 22:00; Stop 08/26/16 at 22:01; Status DC Lorazepam (Ativan Inj) 1 mg ONCE ONCE IV PUSH Last administered on 08/29/16 17 :10; Start 08/29/16 at 17:00; Stop 08/29/16 at 17:01; Status DC Hydromorphone HCl (Dilaudid Pf Inj) 0.5 mg ONCE ONCE IV PUSH Last administered on 08/29/16 17:11; Start 08/29/16 at 17:00; Stop 08/29/16 at 17:01; Status DC Olanzapine 5 mg 5 mg HS PO Last administered on 09/01/16 21:49; Start 08/30/16 at 21:15; Stop 09/03/16 at 23:47; Status DC Potassium Chloride/Lactated Ringer's (KCl Inj/Lr 1000 ml Inj) 1,010 ml @ 42 mls /hr Q24H IV Last administered on 09/10/16 07:14; Start 09/02/16 at 00:00; Stop 09/12/16 at 20:35; Status DC Vancomycin HCl (Vancomycin Inj) 1,000 mg STK-MED ONCE OTHER Last administered on 09/02/16 16:51; Start 09/02/16 at 16:51; Stop 09/02/16 at 16:59; Status DC Morphine Sulfate (Morphine Inj) 2 mg Q4HR PRN IM Pain 1-10 Last administered on 09/11/16 11:27; Start 09/03/16 at 16:15 Haloperidol Lactate (Haldol Inj) 1 mg Q6H PRN IM Psychosis, delirium Last administered on 09/04/16 09:17; Start 09/03/16 at 16:15; Status Hold Heparin Sodium (Porcine) (Heparin Inj) 5,000 units Q12HR SQ Last administered on 09/09/16 21:39; Start 09/04/16 at 09:00; Stop 09/10/16 at 07:38; Status DC Dronabinol (Marinol) 2.5 mg BID@11,16 PO Last administered on 09/10/16 13:54; Start 09/05/16 at 11:00 Dronabinol (Marinol) 2.5 mg ONCE ONCE PO Last administered on 09/04/16 21:51 ; Start 09/04/16 at 17:15; Stop 09/04/16 at 17:17; Status DC Aspirin (Ecotrin Ec) 81 mg DAILY PO Last administered on 09/17/16 09:01; Start 09/05/16 at 09:00 Carvedilol (Coreg) 3.125 mg Q12HR PO Last administered on 09/17/16 20:36; Start 09/05/16 at 09:00 Lorazepam (Ativan Inj) 0.5 mg HYDRO TECHNICIAN ONCE IV PUSH ; Start 09/06/16 at 18:15; Stop 09/06/16 at 18:30; Status DC Atorvastatin Calcium (Lipitor) 80 mg HS PO Last administered on 09/17/16 20:36 ; Start 09/06/16 at 21:00 Lorazepam (Ativan Inj) 0.5 mg HYDRO TECHNICIAN ONCE IV PUSH Last administered on 20:08; Start 09/07/16 at 20:15; Stop 09/07/16 at 20:16; Status DC Gadodiamide (Omniscan Pf Inj) 16 ml STK-MED ONCE IV Last administered on 20:45; Start 09/07/16 at 20:45; Stop 09/07/16 at 20:46; Status DC Lorazepam 0.5 mg 0.5 mg ONCE ONCE IV PUSH ; Start 09/08/16 at 13:00; Stop 09/08 at 13:01; Status DC Thiamine HCl/ Sodium Chloride (Thiamine Inj/NS Inj) 101 ml @ 101 mls/hr DAILY IV Last administered on 09/17/16 09:01; Start 09/09/16 at 10:00 Propofol (Diprivan 200 Mg/20 ml Inj) 200 mg STK-MED ONCE IV ; Start 09/02/16 at 12:00; Stop 09/09/16 at 13:30; Status DC Ephedrine Sulfate (ePHEDrine/NS 25 MG/5 ML SYR) 25 mg STK-MED ONCE IV ; Start at 12:00; Stop 09/09/16 at 13:30; Status DC Phenylephrine HCl (Neosynephrine/ NS 1000 Mcg/10ml Syr) 1,000 mcg STK-MED ONCE IV ; Start 09/02/16 at 12:00; Stop 09/09/16 at 13:30; Status DC Ondansetron HCl 4 mg 4 mg STK-MED ONCE IV PUSH ; Start 09/02/16 at 12:00; Stop 09/09/16 at 13:30; Status DC Sodium Chloride 250 ml @ As Directed STK-MED ONCE IV ; Start 09/02/16 at 12:00 ; Stop 09/09/16 at 13:30; Status DC Parenteral Electrolytes (Normosol R Inj) 1,000 ml @ As Directed STK-MED ONCE IV ; Start 09/02/16 at 12:00; Stop 09/09/16 at 13:30; Status DC Levothyroxine Sodium (Synthroid) 175 mcg DAILY@06 PO ; Start 09/10/16 at 06:00; Status UNV Levothyroxine Sodium (Synthroid) 150 mcg DAILY@06 PO Last administered on 05:58; Start 09/10/16 at 06:00 Levothyroxine Sodium (Synthroid) 25 mcg DAILY@06 PO Last administered on 05:58; Start 09/10/16 at 06:00 Fentanyl Citrate (fentaNYL INJ) 100 mcg STK-MED ONCE IV ; Start 09/02/16 at 12: 00; Stop 09/10/16 at 12:44; Status DC Diphenhydramine HCl (Benadryl 2% Cream) 1 applic TID PRN TOPICAL ITCHING; Start 09/14/16 at 14:00 A/P Assessment and Plan A/P -s/p right AKA for nonhealing ischemic wound. Stump well healing. management per Dr. Taylor. - Peripheral vascular disease with nonhealing left lower extremity wound with necrotic tendon, several necrotic toes-status post consultation with 3 vascular surgeons, plastic surgery, scallop dredger. family declines amputation. topical hyperbaric oxygen therapy (numo bag) purchased by family. this therapy can be given in hospital or at home, but is not FDA approved. [facility] is currently not accepting the patient due to the family requesting numo bag, as well as the issue with wound healing. - Severe neuropathic pain - continue Neurontin. -Severe acute metabolic encephalopathy- continues to improve -exhaustive workup has been performed including initial LP which showed pleocytosis with lymphocyte predominance, see previous notes - Appreciate input from neurology, hematology, palliative care - EEG 09/04 -moderate encephalopathy. -MRI brain with and without contrast 09/07 negative -2nd neuro opinion (requested per family) with Dr. Bauer appreciated, family declines repeat LP as patient improving - C. Diff colitis, s/p treatment with vancomycin. ID/Dr. Quispe. - UTI - Microbiology grew ESBL ( 09/14/16) -d/w today; no need to treat at this time. -Diabetes mellitus type II, currently with good Accu-Chek reads- Coverage with SSI. Monitor Accu-Cheks. Monitor for hypoglycemia. -Hypothyroidism - TSH on 09/08 22, Free T3 low at 0.72, free T4 nml. increased levothyroxine 150 g ->175. repeat TSH in several weeks. - Hypertension - Cardiomyopathy - EF 3540% -Continue carvedilol low dose. will consider JOYCE inhibitor if blood pressure will tolerate and renal function remained stable. currently normotensive. S/p cardiology eval. -Acute kidney injury, resolved. -Chronic kidney disease stage III. Improved, creatinine stable around 1. repeat labs in a.m. -Severe malnutrition - dietary consult noted. Prealbumin is 7. Hopefully patient's by mouth intake will improve as she improves mental status. Consulted GI for eval for possible PEG tube. Started Marinol to stimulate appetite. Daughter Blanche wants to give the patient several days for improvement prior to considering PEG tube. Continue ensure, add multivitamin. - Abnormal uterine appearance - seen on abdominal and pelvis CT -pelvic ultrasound showing prominent endometrium, tumor markers negative, no history of vaginal bleeding -Heme on consult was requested per oncology service. Consider endometrial biopsy as outpatient. MRI abdomen canceled per family (did not want her sedated) . Anemia of chronic illness - stable, monitor transfuse prn Hb<7. decubitus ulcer- is being followed-up by wound care;previously d/w the clinical phlebotomist; plastic surgery reconsulted. Full code. Heparin SQ. Discharge Planning d/w case management today. dc planning to acute rehab is in process. Conrad Clancy MD Sep 18, 2016 09:02 Conrad Clancy MD Sep 18, 2016 09:02
[2016-09-18] MEDS: ASPIRIN EC 81 MG TABEC PO SCH (09:10)
[2016-09-18] MEDS: LIOTHYRONINE SODIUM 5 MCG TAB PO SCH (09:10)
[2016-09-18] MEDS: CARVEDILOL 3.125 MG TAB PO SCH ×2 (09:10→22:07)
[2016-09-18] MEDS: SODIUM CHLORIDE 0.9% FLUSH 5 ML FLUSH IV FLUSH SCH ×2 (09:11→21:00)
[2016-09-18] MEDS: MUPIROCIN 2% OINT 22 GM TUBE TOPICAL SCH ×2 (09:20→21:00)
[2016-09-18] MEDS: DRONABINOL 2.5 MG CAP PO SCH ×2 (11:00→16:00)
[2016-09-18 12:00] VITALS: BP 112/57; PULSE 78; RESP 18; TEMP 97.7; O2SAT 99
[2016-09-18 13:52] LABS: ENDOMYSIAL AB TITER ND (<1:5); TISSUE TRANSGLUTAMINASE AB LESS THAN 1 U/mL (())
[2016-09-18 16:00] VITALS: BP 139/67; PULSE 68; RESP 18; TEMP 98.1; O2SAT 100
[2016-09-18 20:00] VITALS: BP 108/53; PULSE 84; RESP 20; TEMP 98.3; O2SAT 98
[2016-09-18] MEDS: MELATONIN 5 MG TAB PO SCH (21:00)
[2016-09-18] MEDS: ATORVASTATIN 80 MG TAB PO SCH (22:06)
[2016-09-19] VITALS (7 sets, daily range): BP systolic 107–157; BP diastolic 55–69; PULSE 79–91; RESP 16–20; TEMP 97.2–98.7; O2SAT 96–99
[2016-09-19] MEDS: HYDROCORTISONE 1% CREAM 30 GM TOPICAL SCH ×3 (04:00→20:00)
[2016-09-19] MEDS: LEVOTHYROXINE SODIUM 150 MCG TAB PO SCH (06:47)
[2016-09-19] MEDS: LEVOTHYROXINE SODIUM 25 MCG TAB PO SCH (06:47)
[2016-09-19] MEDS: INSULIN ASPART SUPPLEMENTAL SCALE SQ SCH ×4 (06:47→23:02)
--- NOTE | 2016-09-19 08:54 | HHI.PR ---
Subjective Remarks resting comfortably with no distress. afebrile. Objective Vitals Vital Signs Date Time Temp Pulse Resp B/P Pulse Ox O2 Delivery O2 Flow Rate FiO2 09/19/16 04:00 Room Air 09/19/16 04:00 97.7 85 20 119/56 96 09/19/16 00:16 Room Air 09/19/16 00:16 97.9 91 20 157/69 99 09/18/16 20:00 Room Air 09/18/16 20:00 98.3 84 20 108/53 98 09/18/16 16:00 98.1 68 18 139/67 100 09/18/16 12:00 97.7 78 18 112/57 99 I/O 09/18/16 09/18/16 09/18/16 09/19/16 09/19/16 09/19/16 07:00 15:00 23:00 07:00 15:00 23:00 Intake Total 100 ml 720 ml 480 ml 440 ml Output Total 175 ml Balance 100 ml 720 ml 480 ml 265 ml Intake Oral 100 ml 720 ml 480 ml 440 ml Output Urine Total 175 ml # Voids 0 1 # Bowel Movements 0 0 0 0 Imaging Last Impressions Brain MRI 09/07/16 0000 Signed Impressions: Service Date/Time: Wednesday, September 07, 2016 20:26 - CONCLUSION: 1. No acute findings. No significant change from August 25, 2016. No abnormal enhancement post contrast. Mild chronic white matter ischemic changes. Rolando Sharif MD Pelvis Ultrasound 09/05/16 0000 Signed Impressions: Service Date/Time: Monday, September 05, 2016 19:53 - CONCLUSION: Enlarged uterus with prominence of the endometrium. Alfredo Etienne MD Chest CT 09/05/16 0000 Signed Impressions: Service Date/Time: Monday, September 05, 2016 08:47 - CONCLUSION: 1. No worrisome masses. Please see above. 2. Dilatation of the aorta 4.3 cm. 3. Atherosclerosis. Addy Hillman MD Abdomen/Pelvis CT 09/05/16 0000 Signed Impressions: Service Date/Time: Monday, September 05, 2016 08:47 - CONCLUSION: 1. Fat containing umbilical hernias. 2. Extensive atherosclerosis. 3. Indeterminate low-density lesion in the liver, incompletely characterized without contrast. 4. Basilar air space disease and atelectasis with small pericardial effusion. 5. Abnormal appearance of the uterus as described above. A pelvic ultrasound will be helpful for further assessment on a nonemergent outpatient basis. Addy Hillman MD Lumbar Puncture Fluoroscopy 08/29/16 0000 Signed Impressions: Service Date/Time: Monday, August 29, 2016 16:39 - CONCLUSION: Uncomplicated fluoroscopically guided lumbar puncture with pressures as above. Alfredo Etienne MD Chest X-Ray 08/19/16 0000 Signed Impressions: Service Date/Time: Friday, August 19, 2016 18:46 - CONCLUSION: 1. Bibasilar streakiness consistent with atelectasis and/or infiltrates. 2. Cardiomegaly. 3. Poor inspiratory result. Shamar Banuelos MD Upper Extremity Ultrasound 07/28/16 0000 Signed Impressions: Service Date/Time: Thursday, July 28, 2016 14:34 - CONCLUSION: No DVT is identified within the right upper extremity. Alfredo Eng MD Head CT 07/19/16 0000 Signed Impressions: Service Date/Time: Tuesday, July 19, 2016 09:58 - CONCLUSION: No acute intracranial findings. João Otoole MD Foot X-Ray 07/16/16 0000 Signed Impressions: Service Date/Time: Saturday, July 16, 2016 17:34 - CONCLUSION: 1. Nonspecific soft tissue swelling. No acute bone destruction demonstrated. 2. Mild talonavicular and navicular/cuneiform degenerative changes. 3. Second through fifth hammertoe. 4. Moderate-sized heel spur. Alfredo Sneed MD Objective Remarks GENERAL: in no apparent distress. CARDIOVASCULAR: Regular rate and irregular rhythm without murmurs, gallops, or rubs. RESPIRATORY: Clear to auscultation. Breath sounds equal bilaterally. No wheezes , rales, or rhonchi. GASTROINTESTINAL: Abdomen soft, non-tender, nondistended. 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 NEURO: awake and alert Procedures 08/08/2016 PROCEDURE 1. Selective right lower extremity arteriogram. 2. Balloon angioplasty with a 4 mm x 2200 mm and then a 5 x 200 mm [employer] angioplasty balloon of the right superficial femoral and proximal popliteal artery. 07/31/2016 Excision and debridement of both legs, extensive necrotic wounds approximately 30 x 25 cm area on each side, total 1000 to 1100 cm square, down to the subcutaneous tissue and tendon on the left side. 09/03/2016 Right [id number] amputation Medications and IVs Current Medications Sodium Chloride (NS 1000 ml Inj) 1,000 ml @ 84 mls/hr [id number] IV Last administered on 08/05/16 16:12; Start 07/15/16 at 19:42; Stop 08/18/16 at 15:34 ; Status DC IV Flush (NS Flush) 2 ml UNSCH PRN IV FLUSH FLUSH AFTER USING IV ACCESS Last administered on 08/12/16 05:30; Start 07/15/16 at 19:45 IV Flush (NS Flush) 2 ml BID IV FLUSH Last administered on 09/18/16 09:11; Start 07/15/16 at 21:00 Fentanyl Citrate (fentaNYL INJ) 50 mcg Q3H PRN IV PUSH Pain scale 7-10 &/or sedation Last administered on 07/15/16 21:44; Start 07/15/16 at 19:45; Stop at 11:51; Status DC Famotidine (Pepcid Inj) 20 mg Q12HR IV PUSH Last administered on 07/15/16 20: 19; Start 07/15/16 at 21:00; Stop 07/15/16 at 21:24; Status DC Ondansetron HCl (Zofran Inj) 4 mg Q6H PRN IV NAUSEA OR VOMITING Last administered on 07/31/16 13:23; Start 07/15/16 at 19:45; Stop 08/12/16 at 20:17 ; Status DC Metoclopramide HCl (Reglan Inj) 5 mg Q6H PRN IV NAUSEA OR VOMITING Last administered on 09/06/16 21:32; Start 07/15/16 at 19:45 Docusate Sodium (Colace) 100 mg BID PO Last administered on 08/07/16 21:00; Start 07/15/16 at 21:00; Stop 08/08/16 at 22:08; Status DC Albuterol/ Ipratropium (Duoneb Neb) 1 ampule Q2HR NEB PRN INH WHEEZING; Start 07/15/16 at 19:45 Heparin Sodium (Porcine) (Heparin Inj) 5,000 units Q8HR SQ Last administered on 08/28/16 12:46; Start 07/15/16 at 22:00; Stop 09/03/16 at 23:47; Status DC Miscellaneous Information 1 [id number] Last administered on 07/15/16 19:45; Start 07/15/16 at 19:45; Stop 09/04/16 at 03:06; Status DC Chlorhexidine Gluconate (Chlorhexidine 2% Cloth) Taper DAILY@04 TOP Last administered on 07/17/16 03:11; Start 07/16/16 at 04:00; Stop 09/04/16 at 03:06 ; Status DC Chlorhexidine Gluconate (Chlorhexidine 2% Cloth) 3 pack UNSCH PRN TOP HYGIENIC CARE; Start 07/15/16 at 19:45; Stop 09/04/16 at 03:06; Status DC Acetaminophen (Ofirmev Inj) 1,000 mg Q6H PRN IV PAIN SCALE 1 TO 6; Start at 20:00; Stop 07/18/16 at 11:51; Status DC Ketorolac Tromethamine (Toradol Inj) 30 mg Q6H PRN IM PAIN SCALE 1 TO 7; Start 07/15/16 at 20:00; Stop 07/15/16 at 20:10; Status DC Ketorolac Tromethamine (Toradol Inj) 30 mg Q6H PRN IV PUSH PAIN 1-6 Last administered on 07/15/16 20:34; Start 07/15/16 at 20:15; Stop 07/18/16 at 11:51 ; Status DC Carvedilol (Coreg) 25 mg BID PO Last administered on 08/17/16 10:24; Start at 21:00; Stop 08/17/16 at 16:06; Status DC Fluconazole (Diflucan) 75 mg DAILY@17 PO Last administered on 07/16/16 17:03; Start 07/16/16 at 17:00; Stop 07/17/16 at 08:09; Status DC Isosorbide Dinitrate (Isordil) 5 mg Q8HR PO Last administered on 09/02/16 05: 38; Start 07/15/16 at 22:00; Stop 09/03/16 at 23:47; Status DC Lactobacillus Acidophilus (Lactinex) 1 tab TID PO Last administered on 08:32; Start 07/16/16 at 09:00; Stop 08/25/16 at 08:59; Status DC Levofloxacin (Levaquin) 250 mg Q48H PO Last administered on 07/21/16 21:05; Start 07/15/16 at 22:00; Stop 07/23/16 at 16:37; Status DC Levothyroxine Sodium (Synthroid) 150 mcg DAILY@06 PO Last administered on 05:47; Start 07/16/16 at 06:00; Stop 09/09/16 at 17:57; Status DC Liothyronine Sodium (Cytomel) 5 mcg DAILY PO Last administered on 09/18/16 09: 10; Start 07/16/16 at 09:00 Non-Formulary Medication 325 mg DAILY PO ; Start 07/16/16 at 09:00; Status UNV Miscellaneous (Pill Splitter) 1 ea UNSCH PRN OTHER SEE LABEL COMMENTS; Start at 21:30 Famotidine (Pepcid Inj) 10 mg Q12HR IV PUSH Last administered on 07/17/16 07: 29; Start 07/16/16 at 09:00; Stop 07/18/16 at 10:59; Status DC Aspirin (Ecotrin Ec) 325 mg DAILY PO Last administered on 08/25/16 08:30; Start 07/16/16 at 09:00; Stop 08/25/16 at 16:10; Status DC Etomidate (Amidate Inj) 20 mg STK-MED ONCE .ROUTE ; Start 07/16/16 at 17:07; Stop 07/16/16 at 17:08; Status DC Famotidine (Pepcid Inj) 20 mg Q12HR IV PUSH Last administered on 08/12/16 09: 05; Start 07/18/16 at 21:00; Stop 08/12/16 at 20:17; Status DC Hydromorphone HCl (Dilaudid Pf Inj) 0.5 mg ONCE ONCE IV PUSH Last administered on 08/04/16 18:00; Start 07/18/16 at 11:45; Stop 07/18/16 at 11:46 ; Status DC Hydromorphone HCl (Dilaudid Pf Inj) 0.5 mg Q4H PRN IV PUSH breakthrough pain / dresing lori Last administered on 08/31/16 05:32; Start 07/18/16 at 11:45; Stop 09/03/16 at 23:47; Status DC Acetaminophen/ Hydrocodone Bitart ([place] 5-325 Mg) 1 tab Q6H PRN PO pain 2-10 Last administered on 08/12/16 09:04; Start 07/18/16 at 11:45; Stop 08/12/16 at 20:17; Status DC Diphenhydramine HCl 50 mg 50 mg STK-MED ONCE .ROUTE ; Start 07/19/16 at 11:20; Stop 07/19/16 at 11:21; Status DC Levetriacetam/ Sodium Chloride (Keppra Inj/NS Inj) 105 ml @ 420 mls/hr Q12HR IV Last administered on 07/20/16 08:19; Start 07/19/16 at 13:00; Stop at 16:25; Status DC Haloperidol Lactate (Haldol Inj) 2 mg Q6H PRN IM aggittation Last administered on 07/30/16 01:29; Start 07/19/16 at 12:30; Stop 09/03/16 at 23:47; Status DC Lorazepam 1 mg 1 mg Q6H PRN IV PUSH seizures/agiatation Last administered on 06:09; Start 07/19/16 at 12:30; Stop 09/03/16 at 23:47; Status DC Valproate Sodium 500 mg/Sodium Chloride 105 ml @ 105 mls/hr Q8H IV Last administered on 07/25/16 09:26; Start 07/20/16 at 18:00; Stop 07/25/16 at 09:54; Status DC Cefepime HCl/ Sodium Chloride (Maxipime Inj/NS Inj) 100 ml @ 200 mls/hr Q12H IV Last administered on 07/27/16 02:43; Start 07/21/16 at 15:00; Stop 07/27/16 at 09:00; Status DC Dextrose (D50w (Vial) Inj) 25 ml UNSCH PRN IV PUSH HYPOGLYCEMIA-SEE COMMENTS; Start 07/23/16 at 11:00 Glucagon (Glucagon Inj) 1 mg UNSCH PRN OTHER HYPOGLYCEMIA-SEE COMMENTS; Start 07/23/16 at 11:00 Insulin Aspart (NovoLOG SUPPLEMENTAL SCALE) 1 ACHS SLIDING SCALE SQ Last administered on 09/19/16 06:47; Start 07/23/16 at 11:00 Potassium Chloride (KCl) 40 meq ONCE ONCE PO Last administered on 07/24/16 13: 00; Start 07/24/16 at 13:00; Stop 07/24/16 at 13:01; Status DC Valproic Acid (Depakene) 500 mg Q8HR PO Last administered on 07/26/16 14:52; Start 07/25/16 at 15:00; Stop 07/26/16 at 17:39; Status DC Potassium Chloride (KCl) 30 meq ONCE ONCE PO Last administered on 07/26/16 19: 30; Start 07/26/16 at 16:30; Stop 07/26/16 at 16:36; Status DC Potassium Chloride (KCl) 30 meq ONCE ONCE PO Last administered on 07/26/16 22: 16; Start 07/26/16 at 20:00; Stop 07/26/16 at 20:01; Status DC Valproic Acid (Depakene) 250 mg Q12HR PO Last administered on 09/04/16 09:07; Start 07/27/16 at 09:00; Stop 09/04/16 at 16:16; Status DC Hydromorphone HCl (Dilaudid Pf Inj) 0.5 mg ONCE ONCE IV PUSH Last administered on 07/27/16 10:42; Start 07/27/16 at 10:45; Stop 07/27/16 at 10:46; Status DC Valsartan (Diovan) 80 mg HS PO Last administered on 08/19/16 21:58; Start 07/27 at 21:00; Stop 08/20/16 at 18:58; Status DC Enalaprilat (Vasotec Inj) 1.25 mg Q8H PRN IV PUSH SBP >180 OR DBP >100; Start 07/28/16 at 16:00 Fluconazole 100 mg 100 mg DAILY PO Last administered on 08/05/16 11:34; Start 07/30/16 at 09:45; Stop 08/05/16 at 16:53; Status DC Ceftriaxone Sodium/Sodium Chloride (Rocephin Inj/NS Inj) 100 ml @ 200 mls/hr Q24H IV Last administered on 08/01/16 09:45; Start 07/30/16 at 10:00; Stop 03/10 at 11:59; Status DC Potassium Chloride (KCl) 30 meq ONCE ONCE PO Last administered on 07/30/16 12: 12; Start 07/30/16 at 09:45; Stop 07/30/16 at 09:53; Status DC Potassium Chloride (KCl) 30 meq ONCE ONCE PO Last administered on 07/30/16 14: 00; Start 07/30/16 at 14:00; Stop 07/30/16 at 14:01; Status DC Insulin Detemir (Levemir Inj) 5 units HS SQ Last administered on 09/03/16 20: 17; Start 07/30/16 at 21:00; Status Hold Melatonin (Melatonin) 5 mg HS PO Last administered on 09/15/16 21:03; Start at 21:00 Bupivacaine HCl (Marcaine Pf 0.5% Inj) 30 ml STK-MED ONCE .ROUTE ; Start at 10:12; Stop 07/31/16 at 10:13; Status DC Bupivacaine HCl/ Epinephrine Bitart (Sensorcaine-Epi 0.5% 50 ml Inj) 50 ml STK- MED ONCE .ROUTE ; Start 07/31/16 at 10:12; Stop 07/31/16 at 10:13; Status DC Bacitracin (Baciguent Oint) 15 applic STK-MED ONCE .ROUTE ; Start 07/31/16 at 10: 12; Stop 07/31/16 at 10:13; Status DC Dexamethasone Sodium Phosphate (Decadron Inj) 4 mg STK-MED ONCE .ROUTE Last administered on 07/31/16 10:24; Start 07/31/16 at 10:22; Stop 07/31/16 at 10:23; Status DC Famotidine (Pepcid Inj) 20 mg STK-MED ONCE IV PUSH Last administered on 10:23; Start 07/31/16 at 10:23; Stop 07/31/16 at 10:27; Status DC Fentanyl Citrate 500 mcg 500 mcg STK-MED ONCE .ROUTE ; Start 07/31/16 at 12:13; Stop 07/31/16 at 12:14; Status DC Gentamicin Sulfate/Sodium Chloride (Gentamicin Inj/ NS Irr Btl) 1,005 ml @ 0 mls/hr UNSCH PRN IRRIGATION DRESSING CHANGES; Start 07/31/16 at 13:30 Miscellaneous Information ALL NURSING DEPARTME... UNSCH PRN XX SEE LABEL COMMENTS; Start 07/31/16 at 13:30; Stop 08/01/16 at 13:29; Status DC Propofol (Diprivan 200 Mg/20 ml Inj) 200 mg STK-MED ONCE IV ; Start 07/31/16 at 12:42; Stop 08/04/16 at 12:43; Status DC Ephedrine Sulfate (ePHEDrine/NS 25 MG/5 ML SYR) 25 mg STK-MED ONCE IV ; Start at 12:42; Stop 08/04/16 at 12:43; Status DC Phenylephrine HCl (Neosynephrine/ NS 1000 Mcg/10ml Syr) 1,000 mcg STK-MED ONCE IV ; Start 07/31/16 at 12:42; Stop 08/04/16 at 12:43; Status DC Ondansetron HCl (Zofran Inj) 4 mg STK-MED ONCE IV PUSH ; Start 07/31/16 at 12:42 ; Stop 08/04/16 at 12:43; Status DC Prednisone (Deltasone) 50 mg Q6H PO Last administered on 08/08/16 04:00; Start 08/07/16 at 16:00; Stop 08/08/16 at 04:01; Status DC Diphenhydramine HCl (Benadryl Inj) 50 mg ONCE ONCE IV ; Start 08/07/16 at 16:00 ; Stop 08/07/16 at 16:01; Status DC Midazolam HCl (Versed Inj) 2 mg STK-MED ONCE .ROUTE ; Start 08/08/16 at 08:24; Stop 08/08/16 at 08:25; Status DC Diphenhydramine HCl (Benadryl Inj) 50 mg STK-MED ONCE .ROUTE ; Start 08/08/16 at 08:24; Stop 08/08/16 at 08:25; Status DC Hydrocortisone Sodium Succinate (SoluCORTEF INJ) 100 mg STK-MED ONCE .ROUTE Last administered on 08/08/16 08:52; Start 08/08/16 at 08:50; Stop 08/08/16 at 08:51; Status DC Ketamine HCl (Ketalar Inj) 500 mg STK-MED ONCE .ROUTE ; Start 08/08/16 at 08:59 ; Stop 08/08/16 at 09:00; Status DC Iohexol 100 ml 100 ml STK-MED ONCE OTHER Last administered on 08/08/16 08:50; Start 08/08/16 at 08:50; Stop 08/08/16 at 09:45; Status DC Nitroglycerin/ Dextrose (Nitroglycerin-Dextrose Inj) 250 ml @ As Directed STK- MED ONCE .ROUTE ; Start 08/08/16 at 09:57; Stop 08/08/16 at 09:58; Status DC Iohexol (Omnipaque 300 Inj) 50 ml STK-MED ONCE OTHER Last administered on 10:10; Start 08/08/16 at 10:10; Stop 08/08/16 at 10:31; Status DC Midazolam HCl (Versed Inj) 2 mg STK-MED ONCE .ROUTE ; Start 08/08/16 at 11:01; Stop 08/08/16 at 11:02; Status DC Fentanyl Citrate (fentaNYL INJ) 250 mcg STK-MED ONCE .ROUTE ; Start 08/08/16 at 11:02; Stop 08/08/16 at 11:03; Status DC Fentanyl Citrate (fentaNYL INJ) 100 mcg STK-MED ONCE .ROUTE ; Start 08/08/16 at 11:02; Stop 08/08/16 at 11:03; Status DC Morphine Sulfate (Morphine Inj) 4 mg STK-MED ONCE .ROUTE ; Start 08/08/16 at 11: 03; Stop 08/08/16 at 11:04; Status DC Morphine Sulfate (*morphine INJ PERIprocedure ONLY) 8 mg STK-MED ONCE .ROUTE Last administered on 08/08/16 11:17; Start 08/08/16 at 11:17; Stop 08/08/16 at 11:18; Status DC Miscellaneous Information ALL NURSING DEPARTME... UNSCH PRN XX SEE LABEL COMMENTS; Start 08/08/16 at 12:30; Stop 08/09/16 at 12:29; Status DC Lorazepam (Ativan) 0.25 mg Q12H PRN PO ANXIETY; Start 08/09/16 at 14:00; Stop 08/11/16 at 14:33; Status DC Propofol (Diprivan 200 Mg/20 ml Inj) 800 mg STK-MED ONCE IV ; Start 08/08/16 at 12:00; Stop 08/11/16 at 12:57; Status DC Heparin Sodium (Porcine) (Heparin Inj) 5,000 units STK-MED ONCE OTHER ; Start at 12:00; Stop 08/11/16 at 13:02; Status DC Potassium Chloride (KCl) 10 meq Q8HR PO Last administered on 08/16/16 06:08; Start 08/11/16 at 14:00; Stop 08/16/16 at 13:59; Status DC Clonazepam (KlonoPIN) 0.5 mg Q8HR PO Last administered on 08/12/16 05:29; Start 08/11/16 at 14:45; Stop 08/12/16 at 12:49; Status DC Diphenhydramine HCl (Benadryl) 25 mg ONCE ONCE PO Last administered on 17:50; Start 08/11/16 at 14:45; Stop 08/11/16 at 15:05; Status DC Clonazepam (KlonoPIN) 0.5 mg Q8H PRN PO ANXIETY Last administered on 08/30/16 22:50; Start 08/12/16 at 12:45; Stop 09/03/16 at 23:47; Status DC Gabapentin (Neurontin) 200 mg TID PO Last administered on 08/12/16 14:59; Start 08/12/16 at 13:00; Stop 08/14/16 at 16:07; Status DC Methadone HCl (Dolophine) 2.5 mg Q12HR PO Last administered on 09/01/16 21:49 ; Start 08/12/16 at 21:00; Stop 09/03/16 at 23:47; Status DC Doxycycline Hyclate (Vibratab) 100 mg Q12HR PO Last administered on 08/16/16 22:41; Start 08/12/16 at 22:45; Stop 08/17/16 at 08:21; Status DC Quetiapine Fumarate (SEROquel) 12.5 mg ONCE ONCE PO Last administered on 10:45; Start 08/13/16 at 10:45; Stop 08/13/16 at 10:50; Status DC Quetiapine Fumarate (SEROquel) 12.5 mg BID PO Last administered on 08/13/16 20 :32; Start 08/13/16 at 21:00; Stop 08/14/16 at 12:41; Status DC Gabapentin (Neurontin) 300 mg ONCE ONCE PO Last administered on 08/13/16 11: 00; Start 08/13/16 at 11:00; Stop 08/13/16 at 11:09; Status DC Acetaminophen (Tylenol) 500 mg Q6H PRN PO FEVER >100.4 Last administered on 17:12; Start 08/13/16 at 17:15 Quetiapine Fumarate (SEROquel) 6.25 mg HS PO Last administered on 09/01/16 21: 00; Start 08/14/16 at 21:00; Stop 09/03/16 at 23:47; Status DC Quetiapine Fumarate (SEROquel) 6.25 mg DAILY PRN PO agitated delirium Last administered on 09/01/16 12:37; Start 08/14/16 at 12:45; Stop 09/03/16 at 23:47 ; Status DC Gabapentin (Neurontin) 300 mg TID PO Last administered on 08/15/16 13:25; Start 08/15/16 at 09:00; Stop 08/15/16 at 14:20; Status DC Gabapentin (Neurontin) 400 mg ONCE ONCE PO ; Start 08/14/16 at 16:15; Stop at 16:15; Status DC Gabapentin (Neurontin) 200 mg ONCE ONCE PO Last administered on 08/14/16 17: 00; Start 08/14/16 at 16:30; Stop 08/14/16 at 16:33; Status DC Gabapentin (Neurontin) 400 mg TID PO Last administered on 08/18/16 12:34; Start 08/15/16 at 18:00; Stop 08/18/16 at 13:52; Status DC Mupirocin (Bactroban 2% Oint) 1 applic Q12HR TOPICAL Last administered on 21:00; Start 08/15/16 at 15:00 Hydrocortisone 1 applic 1 applic Q8H TOPICAL Last administered on 09/19/16 04: 00; Start 08/15/16 at 20:00 Levofloxacin/ Dextrose (Levaquin 750 Mg Premix Inj) 150 ml @ 100 mls/hr Q24H IV Last administered on 08/16/16 09:41; Start 08/16/16 at 08:00; Stop at 08:21; Status DC Lactobacillus Acidophilus 1 tab 1 tab TID PO Last administered on 09/15/16 12: 33; Start 08/16/16 at 09:00 Vancomycin HCl 1750 mg/Sodium Chloride 517.5 ml @ 258.75 mls/ hr ONCE ONCE IV Last administered on 08/17/16 10:21; Start 08/17/16 at 10:00; Stop 08/17/16 at 11:59; Status DC Pharmacy Profile Note 0 ml @ 0 mls/hr UNSCH OTHER ; Start 08/17/16 at 08:15; Stop 08/18/16 at 16:18; Status DC Piperacillin Sod/ Tazobactam Sod 50 ml @ 100 mls/hr Q6H IV Last administered on 08/18/16 09:15; Start 08/17/16 at 09:00; Stop 08/18/16 at 13:02; Status DC Sodium Chloride 1,000 ml @ 999 mls/hr BOLUS ONCE IV Last administered on 08/17 08:30; Start 08/17/16 at 08:30; Stop 08/17/16 at 09:30; Status DC Sodium Chloride 1,000 ml @ 200 mls/hr Q5H IV ; Start 08/17/16 at 09:00; Stop at 18:59; Status DC Vancomycin HCl/ Sodium Chloride (Vancomycin Inj/ NS 250 ml Inj) 250 ml @ 250 mls/hr Q12H IV Last administered on 08/18/16 12:33; Start 08/17/16 at 22:00; Stop 08/18/16 at 16:31; Status DC Miscellaneous Information SPECIFIC LAB TO BE [facility]... ONCE ONCE XX ; Start at 21:45; Stop 08/18/16 at 21:45; Status DC Olanzapine 10 mg 10 mg Q12H PRN IM acute agitation; Start 08/17/16 at 16:15; Stop 08/19/16 at 16:14; Status DC Levofloxacin/ Dextrose 150 ml @ 100 mls/hr Q24H IV ; Start 08/18/16 at 09:00; Stop 08/18/16 at 09:00; Status DC Levofloxacin/ Dextrose (Levaquin 750 Mg Premix Inj) 150 ml @ 100 mls/hr Q48H IV Last administered on 08/18/16 09:54; Start 08/18/16 at 09:00; Stop at 13:02; Status DC Miscellaneous Medication (ASP Crit: Doc ESBL, MDR A baumannii or P aer) 1 UNSCH X1 PRN XX PHARMACY DOCUMENTATION; Start 08/18/16 at 13:00; Stop 08/19/16 at 12: 59; Status DC Miscellaneous Medication 1 1 UNSCH X1 PRN XX PHARMACY DOCUMENTATION; Start at 13:00; Stop 08/19/16 at 12:59; Status DC Meropenem/Sodium Chloride (Merrem Inj/NS Inj) 100 ml @ 200 mls/hr Q8H IV Last administered on 08/21/16 06:14; Start 08/18/16 at 14:00; Stop 08/21/16 at 07:36 ; Status DC Gabapentin 600 mg 600 mg TID PO Last administered on 09/01/16 18:44; Start at 18:00; Stop 09/02/16 at 21:42; Status DC Sodium Chloride 1,000 ml @ 150 mls/hr Q6H40M IV Last administered on 17:44; Start 08/18/16 at 15:30; Stop 08/20/16 at 17:43; Status DC Sodium Chloride (NS 250 ml Inj) 250 ml @ 15 mls/hr ONCE ONCE IV Last administered on 08/19/16 06:34; Start 08/18/16 at 16:45; Stop 08/19/16 at 09:24 ; Status DC Acetaminophen (Tylenol) 650 mg Q4H PRN PO SEE LABEL COMMENTS; Start 08/18/16 at 16:45; Stop 08/18/16 at 20:46; Status DC Diphenhydramine HCl 25 mg 25 mg Q4H PRN PO SEE LABEL COMMENTS; Start 08/18/16 at 16:45; Stop 08/18/16 at 20:46; Status DC Linezolid (Zyvox 600 Mg Premix) 300 ml @ 300 mls/hr Q12H IV Last administered on 08/20/16 22:54; Start 08/19/16 at 08:00; Stop 08/21/16 at 07:36; Status DC Albumin Human (Albumin 25% Inj) 12.5 gm Q8H IV Last administered on 08/22/16 11:31; Start 08/20/16 at 20:00; Stop 08/22/16 at 13:51; Status DC Bumetanide (Bumex Inj) 1 mg Q8H IV PUSH Last administered on 08/22/16 12:44; Start 08/20/16 at 20:00; Stop 08/22/16 at 13:51; Status DC Metronidazole (Flagyl) 500 mg Q6HR PO ; Start 08/21/16 at 09:00; Stop 08/21/16 at 09:00; Status DC Vancomycin HCl (VANCOMYCIN for oral use only) 500 mg QID PO Last administered on 08/25/16 12:22; Start 08/21/16 at 09:00; Stop 08/25/16 at 13:53; Status DC Chlorothiazide Sodium (Diuril Inj) 250 mg ONCE ONCE IV Last administered on 21:03; Start 08/21/16 at 20:00; Stop 08/21/16 at 20:01; Status DC Potassium Phos/ Sodium Phos (K-Phos Neutral) 250 mg BID PO Last administered on 08/22/16 07:41; Start 08/21/16 at 21:00; Stop 08/22/16 at 20:59; Status DC Bumetanide (Bumetanide) 1 mg DAILY PO Last administered on 09/01/16 08:18; Start 08/23/16 at 09:00; Stop 09/03/16 at 23:47; Status DC Potassium Chloride (KCl) 20 meq ONCE ONCE PO Last administered on 08/22/16 14 :23; Start 08/22/16 at 14:00; Stop 08/22/16 at 14:01; Status DC Valsartan (Diovan) 40 mg DAILY PO Last administered on 09/01/16 08:18; Start 08/23/16 at 09:00; Stop 09/03/16 at 23:47; Status DC Vancomycin HCl (VANCOMYCIN for oral use only) 125 mg QID PO Last administered on 09/09/16 12:29; Start 08/25/16 at 18:00; Stop 09/09/16 at 17:59; Status DC Lorazepam (Ativan Inj) 0.5 mg UNSCH X1 IV Last administered on 08/25/16 18:32 ; Start 08/25/16 at 17:00; Stop 08/25/16 at 23:00; Status DC Diphenhydramine HCl (Benadryl) 25 mg ONCE ONCE PO Last administered on 22:15; Start 08/26/16 at 22:00; Stop 08/26/16 at 22:01; Status DC Lorazepam (Ativan Inj) 1 mg ONCE ONCE IV PUSH Last administered on 08/29/16 17 :10; Start 08/29/16 at 17:00; Stop 08/29/16 at 17:01; Status DC Hydromorphone HCl (Dilaudid Pf Inj) 0.5 mg ONCE ONCE IV PUSH Last administered on 08/29/16 17:11; Start 08/29/16 at 17:00; Stop 08/29/16 at 17:01; Status DC Olanzapine 5 mg 5 mg HS PO Last administered on 09/01/16 21:49; Start 08/30/16 at 21:15; Stop 09/03/16 at 23:47; Status DC Potassium Chloride/Lactated Ringer's (KCl Inj/Lr 1000 ml Inj) 1,010 ml @ 42 mls /hr Q24H IV Last administered on 09/10/16 07:14; Start 09/02/16 at 00:00; Stop 09/12/16 at 20:35; Status DC Vancomycin HCl (Vancomycin Inj) 1,000 mg STK-MED ONCE OTHER Last administered on 09/02/16 16:51; Start 09/02/16 at 16:51; Stop 09/02/16 at 16:59; Status DC Morphine Sulfate (Morphine Inj) 2 mg Q4HR PRN IM Pain 1-10 Last administered on 09/11/16 11:27; Start 09/03/16 at 16:15 Haloperidol Lactate (Haldol Inj) 1 mg Q6H PRN IM Psychosis, delirium Last administered on 09/04/16 09:17; Start 09/03/16 at 16:15; Status Hold Heparin Sodium (Porcine) (Heparin Inj) 5,000 units Q12HR SQ Last administered on 09/09/16 21:39; Start 09/04/16 at 09:00; Stop 09/10/16 at 07:38; Status DC Dronabinol (Marinol) 2.5 mg BID@11,16 PO Last administered on 09/10/16 13:54; Start 09/05/16 at 11:00 Dronabinol (Marinol) 2.5 mg ONCE ONCE PO Last administered on 09/04/16 21:51 ; Start 09/04/16 at 17:15; Stop 09/04/16 at 17:17; Status DC Aspirin (Ecotrin Ec) 81 mg DAILY PO Last administered on 09/18/16 09:10; Start 09/05/16 at 09:00 Carvedilol (Coreg) 3.125 mg Q12HR PO Last administered on 09/18/16 22:07; Start 09/05/16 at 09:00 Lorazepam (Ativan Inj) 0.5 mg DESIGN COORDINATOR ONCE IV PUSH ; Start 09/06/16 at 18:15; Stop 09/06/16 at 18:30; Status DC Atorvastatin Calcium (Lipitor) 80 mg HS PO Last administered on 09/18/16 22:06 ; Start 09/06/16 at 21:00 Lorazepam (Ativan Inj) 0.5 mg DESIGN COORDINATOR ONCE IV PUSH Last administered on 20:08; Start 09/07/16 at 20:15; Stop 09/07/16 at 20:16; Status DC Gadodiamide (Omniscan Pf Inj) 16 ml STK-MED ONCE IV Last administered on 20:45; Start 09/07/16 at 20:45; Stop 09/07/16 at 20:46; Status DC Lorazepam 0.5 mg 0.5 mg ONCE ONCE IV PUSH ; Start 09/08/16 at 13:00; Stop 09/08 at 13:01; Status DC Thiamine HCl/ Sodium Chloride (Thiamine Inj/NS Inj) 101 ml @ 101 mls/hr DAILY IV Last administered on 09/17/16 09:01; Start 09/09/16 at 10:00; Stop at 13:29; Status DC Propofol (Diprivan 200 Mg/20 ml Inj) 200 mg STK-MED ONCE IV ; Start 09/02/16 at 12:00; Stop 09/09/16 at 13:30; Status DC Ephedrine Sulfate (ePHEDrine/NS 25 MG/5 ML SYR) 25 mg STK-MED ONCE IV ; Start at 12:00; Stop 09/09/16 at 13:30; Status DC Phenylephrine HCl (Neosynephrine/ NS 1000 Mcg/10ml Syr) 1,000 mcg STK-MED ONCE IV ; Start 09/02/16 at 12:00; Stop 09/09/16 at 13:30; Status DC Ondansetron HCl 4 mg 4 mg STK-MED ONCE IV PUSH ; Start 09/02/16 at 12:00; Stop 09/09/16 at 13:30; Status DC Sodium Chloride 250 ml @ As Directed STK-MED ONCE IV ; Start 09/02/16 at 12:00 ; Stop 09/09/16 at 13:30; Status DC Parenteral Electrolytes (Normosol R Inj) 1,000 ml @ As Directed STK-MED ONCE IV ; Start 09/02/16 at 12:00; Stop 09/09/16 at 13:30; Status DC Levothyroxine Sodium (Synthroid) 175 mcg DAILY@06 PO ; Start 09/10/16 at 06:00; Status UNV Levothyroxine Sodium (Synthroid) 150 mcg DAILY@06 PO Last administered on 06:47; Start 09/10/16 at 06:00 Levothyroxine Sodium (Synthroid) 25 mcg DAILY@06 PO Last administered on 06:47; Start 09/10/16 at 06:00 Fentanyl Citrate (fentaNYL INJ) 100 mcg STK-MED ONCE IV ; Start 09/02/16 at 12: 00; Stop 09/10/16 at 12:44; Status DC Diphenhydramine HCl (Benadryl 2% Cream) 1 applic TID PRN TOPICAL ITCHING; Start 09/14/16 at 14:00 Thiamine HCl (Vitamin B1) 100 mg DAILY PO ; Start 09/19/16 at 09:00 A/P Assessment and Plan A/P -s/p right AKA for nonhealing ischemic wound. Stump well healing. cleared by vascular surgery for discharge. - Peripheral vascular disease with nonhealing left lower extremity wound with necrotic tendon, several necrotic toes-status post consultation with 3 vascular surgeons, plastic surgery, cna hospice. family declines amputation. topical hyperbaric oxygen therapy (numo bag) purchased by family. this therapy can be given in hospital or at home, but is not FDA approved. - Severe neuropathic pain - continue Neurontin. -Severe acute metabolic encephalopathy- continues to improve -exhaustive workup has been performed including initial LP which showed pleocytosis with lymphocyte predominance, see previous notes - Appreciate input from neurology, hematology, palliative care - EEG 09/04 -moderate encephalopathy. -MRI brain with and without contrast 09/07 negative -2nd neuro opinion (requested per family) with Dr. Bauer appreciated, family declines repeat LP as patient improving - C. Diff colitis, s/p treatment with vancomycin. ID/Dr. Quispe. - UTI - Microbiology grew ESBL ( 09/14/16) -d/w today; no need to treat at this time. -Diabetes mellitus type II, currently with good Accu-Chek reads- Coverage with SSI. Monitor Accu-Cheks. Monitor for hypoglycemia. -Hypothyroidism - TSH on 09/08 22, Free T3 low at 0.72, free T4 nml. increased levothyroxine 150 g ->175. repeat TSH in several weeks. - Hypertension - Cardiomyopathy - EF 3540% -Continue carvedilol low dose. will consider JOYCE inhibitor if blood pressure will tolerate and renal function remained stable. currently normotensive. S/p cardiology eval. -Acute kidney injury, resolved. -Chronic kidney disease stage III. Improved, creatinine stable around 1. repeat labs in a.m. -Severe malnutrition - dietary consult noted. Prealbumin is 7. Hopefully patient's by mouth intake will improve as she improves mental status. Consulted GI for eval for possible PEG tube. Started Marinol to stimulate appetite. Daughter Blanche wants to give the patient some time for improvement prior to considering PEG tube. Continue ensure, add multivitamin. - Abnormal uterine appearance - seen on abdominal and pelvis CT -pelvic ultrasound showing prominent endometrium, tumor markers negative, no history of vaginal bleeding -Heme on consult was requested per oncology service. Consider endometrial biopsy as outpatient. MRI abdomen canceled per family (did not want her sedated) . Anemia of chronic illness - stable, monitor transfuse prn Hb<7. decubitus ulcer- is being followed-up by wound care;previously d/w the will call clerk; plastic surgery reconsulted ( consult was replaced today). Full code. Heparin SQ. Discharge Planning d/w case management today. has been conditionally accepted by [facility]. hopefully will be accepted by rehab early next week. Conrad Clancy MD Sep 19, 2016 08:54
[2016-09-19] MEDS: ASPIRIN EC 81 MG TABEC PO SCH (09:11)
[2016-09-19] MEDS: CARVEDILOL 3.125 MG TAB PO SCH ×2 (09:11→22:59)
[2016-09-19] MEDS: SODIUM CHLORIDE 0.9% FLUSH 5 ML FLUSH IV FLUSH SCH ×2 (09:11→21:00)
[2016-09-19] MEDS: LACTOBACILLUS ACIDOPHILUS TAB PO SCH ×3 (09:11→16:51)
[2016-09-19] MEDS: LIOTHYRONINE SODIUM 5 MCG TAB PO SCH (09:11)
[2016-09-19] MEDS: MUPIROCIN 2% OINT 22 GM TUBE TOPICAL SCH ×2 (09:13→21:00)
[2016-09-19] MEDS: THIAMINE HCL 100 MG TAB PO SCH (09:14)
[2016-09-19] MEDS: DRONABINOL 2.5 MG CAP PO SCH ×2 (11:25→16:50)
[2016-09-19] MEDS: MELATONIN 5 MG TAB PO SCH (21:00)
[2016-09-19] MEDS: ATORVASTATIN 80 MG TAB PO SCH (22:59)
[2016-09-20] MEDS: HYDROCORTISONE 1% CREAM 30 GM TOPICAL SCH ×3 (04:00→21:52)
[2016-09-20 04:05] VITALS: BP 142/65; PULSE 69; RESP 16; TEMP 98.3; O2SAT 98
[2016-09-20] MEDS: LEVOTHYROXINE SODIUM 150 MCG TAB PO SCH (07:32)
[2016-09-20] MEDS: LEVOTHYROXINE SODIUM 25 MCG TAB PO SCH (07:32)
[2016-09-20] MEDS: INSULIN ASPART SUPPLEMENTAL SCALE SQ SCH ×4 (07:32→21:51)
[2016-09-20 08:24] VITALS: BP 124/78; PULSE 77; RESP 18; TEMP 98; O2SAT 98
[2016-09-20] MEDS: MUPIROCIN 2% OINT 22 GM TUBE TOPICAL SCH ×2 (09:00→21:53)
[2016-09-20] MEDS: SODIUM CHLORIDE 0.9% FLUSH 5 ML FLUSH IV FLUSH SCH ×2 (09:00→21:52)
[2016-09-20] MEDS: LACTOBACILLUS ACIDOPHILUS TAB PO SCH ×3 (09:00→16:02)
[2016-09-20] MEDS: THIAMINE HCL 100 MG TAB PO SCH (09:00)
--- NOTE | 2016-09-20 09:10 | HHI.PR ---
Subjective Remarks Resting comfortably with no distress. Sleeping. When asking questions, patient states "let me sleep" Afebrile. Objective Vital Signs Date Time Temp Pulse Resp B/P Pulse Ox O2 Delivery O2 Flow Rate FiO2 09/20/16 08:24 98.0 77 18 124/78 98 09/20/16 04:05 Room Air 09/20/16 04:05 98.3 69 16 142/65 98 09/19/16 23:25 98.5 87 16 115/56 97 09/19/16 23:25 Room Air 09/19/16 19:46 Room Air 09/19/16 19:46 98.1 81 16 135/60 98 09/19/16 16:02 98.7 79 19 126/61 98 09/19/16 12:02 98.3 82 20 107/55 98 09/19/16 09:19 Room Air I/O 09/19/16 09/19/16 09/19/16 09/20/16 09/20/16 09/20/16 07:00 15:00 23:00 07:00 15:00 23:00 Intake Total 440 ml 60 ml 200 ml Output Total 175 ml 450 ml Balance 265 ml 60 ml -250 ml Intake Oral 440 ml 60 ml 200 ml Output Urine Total 175 ml 450 ml # Voids 1 # Bowel Movements 0 1 0 Imaging Last Impressions Brain MRI 09/07/16 0000 Signed Impressions: Service Date/Time: Wednesday, September 07, 2016 20:26 - CONCLUSION: 1. No acute findings. No significant change from August 25, 2016. No abnormal enhancement post contrast. Mild chronic white matter ischemic changes. Rolando Sharif MD Pelvis Ultrasound 09/05/16 0000 Signed Impressions: Service Date/Time: Monday, September 05, 2016 19:53 - CONCLUSION: Enlarged uterus with prominence of the endometrium. Alfredo Etienne MD Chest CT 09/05/16 0000 Signed Impressions: Service Date/Time: Monday, September 05, 2016 08:47 - CONCLUSION: 1. No worrisome masses. Please see above. 2. Dilatation of the aorta 4.3 cm. 3. Atherosclerosis. Addy Hillman MD Abdomen/Pelvis CT 09/05/16 0000 Signed Impressions: Service Date/Time: Monday, September 05, 2016 08:47 - CONCLUSION: 1. Fat containing umbilical hernias. 2. Extensive atherosclerosis. 3. Indeterminate low-density lesion in the liver, incompletely characterized without contrast. 4. Basilar air space disease and atelectasis with small pericardial effusion. 5. Abnormal appearance of the uterus as described above. A pelvic ultrasound will be helpful for further assessment on a nonemergent outpatient basis. Addy Hillman MD Lumbar Puncture Fluoroscopy 08/29/16 0000 Signed Impressions: Service Date/Time: Monday, August 29, 2016 16:39 - CONCLUSION: Uncomplicated fluoroscopically guided lumbar puncture with pressures as above. Alfredo Etienne MD Chest X-Ray 08/19/16 0000 Signed Impressions: Service Date/Time: Friday, August 19, 2016 18:46 - CONCLUSION: 1. Bibasilar streakiness consistent with atelectasis and/or infiltrates. 2. Cardiomegaly. 3. Poor inspiratory result. Shamar Banuelos MD Upper Extremity Ultrasound 07/28/16 0000 Signed Impressions: Service Date/Time: Thursday, July 28, 2016 14:34 - CONCLUSION: No DVT is identified within the right upper extremity. Alfredo Eng MD Head CT 07/19/16 0000 Signed Impressions: Service Date/Time: Tuesday, July 19, 2016 09:58 - CONCLUSION: No acute intracranial findings. João Otoole MD Foot X-Ray 07/16/16 0000 Signed Impressions: Service Date/Time: Saturday, July 16, 2016 17:34 - CONCLUSION: 1. Nonspecific soft tissue swelling. No acute bone destruction demonstrated. 2. Mild talonavicular and navicular/cuneiform degenerative changes. 3. Second through fifth hammertoe. 4. Moderate-sized heel spur. Alfredo Sneed MD Procedures 08/08/2016 PROCEDURE 1. Selective right lower extremity arteriogram. 2. Balloon angioplasty with a 4 mm x 2200 mm and then a 5 x 200 mm [employer] angioplasty balloon of the right superficial femoral and proximal popliteal artery. 07/31/2016 Excision and debridement of both legs, extensive necrotic wounds approximately 30 x 25 cm area on each side, total 1000 to 1100 cm square, down to the subcutaneous tissue and tendon on the left side. 09/03/2016 Right [id number] amputation Objective Remarks GENERAL: in no apparent distress. Sleeping, awakens for exam CARDIOVASCULAR: Regular rate and irregular rhythm without murmurs, gallops, or rubs. RESPIRATORY: Clear to auscultation. Breath sounds equal bilaterally. No wheezes , rales, or rhonchi. GASTROINTESTINAL: Abdomen soft, non-tender, nondistended. Normal, active bowel sounds MUSCULOSKELETAL: s/p right AKA NEURO: awake and alert A/P Problem List: (1) PVD (peripheral vascular disease) ICD Code: I73.9 (2) Obesity (BMI 30-39.9) ICD Code: E66.9 (3) Cardiomyopathy ICD Code: I42.9 (4) Impaired mobility and activities of daily living ICD Code: Z74.09 (5) Delirium due to another medical condition ICD Code: F05 (6) Acute kidney failure, unspecified ICD Code: N17.9 (7) Apnea ICD Code: R06.81 (8) VT (ventricular tachycardia) ICD Code: I47.2 (9) Peripheral vascular occlusive disease ICD Code: I73.9 (10) Cellulitis and abscess of lower extremity ICD Code: L02.419 (11) Confusion ICD Code: R41.0 (12) Urinary tract infection ICD Code: N39.0 (13) complicated/infected/necrotic foot and leg wounds (14) Lethargy ICD Code: R53.83 (15) Delirium ICD Code: R41.0 (16) Diabetes mellitus with peripheral angiopathy with gangrene ICD Code: E11.52 (17) Impaired cognition ICD Code: R41.89 (18) Minor neurocognitive disorder ICD Code: G31.84 (19) [place]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 (20) Hypoalbuminemia ICD Code: E88.09 (21) Uterine mass ICD Code: N85.9 (22) Cellulitis of left lower extremity ICD Code: L03.116 (23) Anemia ICD Code: D64.9 (24) Anoxic encephalopathy ICD Code: G93.1 (25) Chronic kidney disease (CKD) ICD Code: N18.9 (26) Ischemic ulcer of right ankle ICD Code: L97.319 (27) Pain ICD Code: R52 (28) Anemia in chronic illness ICD Code: D63.8 (29) JAYLAN (acute kidney injury) ICD Code: N17.9 (30) Enlarged uterus ICD Code: N85.2 (31) Endometrial thickening on ultra sound ICD Code: R93.8 (32) Weakness ICD Code: R53.1 (33) Encephalopathy ICD Code: G93.40 (34) Diabetes ICD Code: E11.9 (35) Hypothyroidism ICD Code: E03.9 (36) CHF (congestive heart failure) ICD Code: I50.9 (37) Hypertension ICD Code: I10 (38) DM (diabetes mellitus), type 2, uncontrolled w/neurologic complication ICD Code: E11.49 (39) Hx of AKA (above knee amputation) ICD Code: Z89.619 (40) UTI (urinary tract infection) ICD Code: N39.0 (41) Neuropathic pain ICD Code: M79.2 (42) Severe protein-calorie malnutrition ICD Code: E43 (43) Decreased appetite ICD Code: R63.0 (44) Decubitus ulcer ICD Code: L89.90 Assessment and Plan A/P -s/p right AKA for nonhealing ischemic wound. Stump well healing. cleared by vascular surgery for discharge. - Peripheral vascular disease with nonhealing left lower extremity wound with necrotic tendon, several necrotic toes-status post consultation with 3 vascular surgeons, plastic surgery, fiscal specialist. family declines amputation. topical hyperbaric oxygen therapy (numo bag) purchased by family. this therapy can be given in hospital or at home, but is not FDA approved. - Severe neuropathic pain - continue Neurontin. -Severe acute metabolic encephalopathy- continues to improve -exhaustive workup has been performed including initial LP which showed pleocytosis with lymphocyte predominance, see previous notes - Appreciate input from neurology, hematology, palliative care - EEG 09/04 -moderate encephalopathy. -MRI brain with and without contrast 09/07 negative -2nd neuro opinion (requested per family) with Dr. Bauer appreciated, family declines repeat LP as patient improving - C. Diff colitis, s/p treatment with vancomycin. ID/Dr. Quispe. - UTI - Microbiology grew ESBL ( 09/14/16) -d/w today; no need to treat at this time. -Diabetes mellitus type II, currently with good Accu-Chek reads- Coverage with SSI. Monitor Accu-Cheks. Monitor for hypoglycemia. -Hypothyroidism - TSH on 09/08 22, Free T3 low at 0.72, free T4 nml. increased levothyroxine 150 g ->175. repeat TSH in several weeks. - Hypertension - Cardiomyopathy - EF 3540% -Continue carvedilol low dose. will consider JOYCE inhibitor if blood pressure will tolerate and renal function remained stable. currently normotensive. S/p cardiology eval. -Acute kidney injury, resolved. -Chronic kidney disease stage III. Improved, creatinine stable around 1. repeat labs in a.m. -Severe malnutrition - dietary consult noted. Prealbumin is 7. Hopefully patient's by mouth intake will improve as she improves mental status. Consulted GI for eval for possible PEG tube. Started Marinol to stimulate appetite. Daughter Blanche wants to give the patient some time for improvement prior to considering PEG tube. Continue ensure, added multivitamin. - Abnormal uterine appearance - seen on abdominal and pelvis CT -pelvic ultrasound showing prominent endometrium, tumor markers negative, no history of vaginal bleeding -Heme on consult was requested per oncology service. Consider endometrial biopsy as outpatient. MRI abdomen canceled per family (did not want her sedated) . Anemia of chronic illness - stable, monitor transfuse prn Hb<7. decubitus ulcer- Seen by wound care 09/16 with instructions; Added wound care nursing instructions today. Plastic surgery reconsulted 09/19, has not yet seen patient. Full code. Heparin SQ. d/w nurse Discharge Planning has been conditionally accepted by [facility]. hopefully will be accepted by rehab early this week. Problem Qualifiers (1) Diabetes mellitus with peripheral angiopathy with gangrene: Qualified Code: E11.52 - Type 2 diabetes mellitus with diabetic peripheral angiopathy and gangrene, with long-term current use of insulin (2) Ischemic ulcer of right ankle: Qualified Code: L97.313 - Ischemic ulcer of right ankle, with necrosis of muscle (3) Hypothyroidism: Qualified Code: E03.9 - Acquired hypothyroidism (4) CHF (congestive heart failure): (5) DM (diabetes mellitus), type 2, uncontrolled w/neurologic complication: Estrella Choudhary MD Sep 20, 2016 09:10
[2016-09-20] MEDS: LIOTHYRONINE SODIUM 5 MCG TAB PO SCH (09:21)
[2016-09-20] MEDS: CARVEDILOL 3.125 MG TAB PO SCH ×2 (09:22→21:50)
[2016-09-20] MEDS: ASPIRIN EC 81 MG TABEC PO SCH (09:22)
[2016-09-20 10:12] LABS: AUTOMATED NEUTROPHIL # 6.8 TH/MM3 (1.8-7.7); BASOPHIL % 0.5 % (0.0-2.0); EOSINOPHIL # 0.3 TH/MM3 (0-0.4); HEMATOCRIT 25.9 % (35.0-46.0); HEMO FLAGS DIFF FINAL; LYMPH % 15.3 % (9.0-44.0); LYMPHOCYTE # 1.4 TH/MM3 (1.0-4.8); MEAN CELL VOLUME 78.6 FL (80.0-100.0); MEAN CORPUSCULAR HEMOGLOBIN 25.1 PG (27.0-34.0); MEAN CORPUSCULAR HGB CONC 31.9 % (32.0-36.0); MONO % 6.6 % (0.0-8.0); NEUT % 74.6 % (16.0-70.0); PLATELET COUNT 283 TH/MM3 (150-450); RED BLOOD COUNT 3.29 MIL/MM3 (4.00-5.30); RED CELL DISTRIBUTION WIDTH 19.8 % (11.6-17.2); WHITE BLOOD COUNT 9.1 TH/MM3 (4.0-11.0)
[2016-09-20 10:58] LABS: BICARBONATE 25.2 MEQ/L (21.0-32.0)
[2016-09-20] MEDS: DRONABINOL 2.5 MG CAP PO SCH ×2 (11:00→16:00)
[2016-09-20 11:03] LABS: POTASSIUM 2.9 MEQ/L (3.5-5.1)
[2016-09-20] MEDS ORDERED: POTASSIUM CHLORIDE 20 MEQ CONTROLLED RELEASE TAB PO ONE ×2 (11:45→16:00)
[2016-09-20 12:21] VITALS: BP 119/52; PULSE 76; RESP 18; TEMP 98.2; O2SAT 98
[2016-09-20 16:00] VITALS: BP 135/90; PULSE 80; RESP 18; TEMP 97.7; O2SAT 97
[2016-09-20 20:00] VITALS: BP 107/56; PULSE 77; RESP 18; TEMP 97.8; O2SAT 98
[2016-09-20] MEDS: MELATONIN 5 MG TAB PO SCH (21:00)
[2016-09-20] MEDS: ATORVASTATIN 80 MG TAB PO SCH (21:50)
[2016-09-21] MEDS: HYDROCORTISONE 1% CREAM 30 GM TOPICAL SCH ×3 (03:07→22:02)
[2016-09-21 04:00] VITALS: BP 119/57; PULSE 75; RESP 20; TEMP 97; O2SAT 94
[2016-09-21] MEDS: LEVOTHYROXINE SODIUM 25 MCG TAB PO SCH (05:30)
[2016-09-21] MEDS: LEVOTHYROXINE SODIUM 150 MCG TAB PO SCH (05:30)
[2016-09-21] MEDS: INSULIN ASPART SUPPLEMENTAL SCALE SQ SCH ×4 (05:31→22:06)
--- NOTE | 2016-09-21 07:45 | HHI.PR ---
Subjective Remarks Resting comfortably with no distress. Asking for cream for ear, which is dry scaly skin with itching. Afebrile. Denies CP, SOB, N/V/D/C. D/W nursing Objective Vital Signs Date Time Temp Pulse Resp B/P Pulse Ox O2 Delivery O2 Flow Rate FiO2 09/21/16 04:00 97.0 75 20 119/57 94 09/21/16 00:00 09/20/16 21:10 Room Air 09/20/16 20:00 97.8 77 18 107/56 98 09/20/16 16:00 97.7 80 18 135/90 97 09/20/16 12:21 98.2 76 18 119/52 98 09/20/16 08:24 98.0 77 18 124/78 98 09/20/16 08:10 Room Air I/O 09/20/16 09/20/16 09/20/16 09/21/16 09/21/16 09/21/16 07:00 15:00 23:00 07:00 15:00 23:00 Intake Total 200 ml 600 ml 600 ml 780 ml Output Total 450 ml 800 ml 400 ml 150 ml Balance -250 ml -200 ml 200 ml 630 ml Intake Oral 200 ml 600 ml 600 ml 780 ml Output Urine Total 450 ml 800 ml 400 ml 150 ml # Bowel Movements 0 1 1 Result Diagram: 09/20/1690409/20/16904 Imaging Last Impressions Brain MRI 09/07/16 0000 Signed Impressions: Service Date/Time: Wednesday, September 07, 2016 20:26 - CONCLUSION: 1. No acute findings. No significant change from August 25, 2016. No abnormal enhancement post contrast. Mild chronic white matter ischemic changes. Rolando Sharif MD Pelvis Ultrasound 09/05/16 0000 Signed Impressions: Service Date/Time: Monday, September 05, 2016 19:53 - CONCLUSION: Enlarged uterus with prominence of the endometrium. Alfredo Etienne MD Chest CT 09/05/16 0000 Signed Impressions: Service Date/Time: Monday, September 05, 2016 08:47 - CONCLUSION: 1. No worrisome masses. Please see above. 2. Dilatation of the aorta 4.3 cm. 3. Atherosclerosis. Addy Hillman MD Abdomen/Pelvis CT 09/05/16 0000 Signed Impressions: Service Date/Time: Monday, September 05, 2016 08:47 - CONCLUSION: 1. Fat containing umbilical hernias. 2. Extensive atherosclerosis. 3. Indeterminate low-density lesion in the liver, incompletely characterized without contrast. 4. Basilar air space disease and atelectasis with small pericardial effusion. 5. Abnormal appearance of the uterus as described above. A pelvic ultrasound will be helpful for further assessment on a nonemergent outpatient basis. Addy Hillman MD Lumbar Puncture Fluoroscopy 08/29/16 0000 Signed Impressions: Service Date/Time: Monday, August 29, 2016 16:39 - CONCLUSION: Uncomplicated fluoroscopically guided lumbar puncture with pressures as above. Alferdo Etienne MD Chest X-Ray 08/19/16 0000 Signed Impressions: Service Date/Time: Friday, August 19, 2016 18:46 - CONCLUSION: 1. Bibasilar streakiness consistent with atelectasis and/or infiltrates. 2. Cardiomegaly. 3. Poor inspiratory result. Shamar Banuelos MD Upper Extremity Ultrasound 07/28/16 0000 Signed Impressions: Service Date/Time: Thursday, July 28, 2016 14:34 - CONCLUSION: No DVT is identified within the right upper extremity. Alfredo Eng MD Head CT 07/19/16 0000 Signed Impressions: Service Date/Time: Tuesday, July 19, 2016 09:58 - CONCLUSION: No acute intracranial findings. João Otoole MD Foot X-Ray 07/16/16 0000 Signed Impressions: Service Date/Time: Saturday, July 16, 2016 17:34 - CONCLUSION: 1. Nonspecific soft tissue swelling. No acute bone destruction demonstrated. 2. Mild talonavicular and navicular/cuneiform degenerative changes. 3. Second through fifth hammertoe. 4. Moderate-sized heel spur. Alfredo Sneed MD Procedures 08/08/2016 PROCEDURE 1. Selective right lower extremity arteriogram. 2. Balloon angioplasty with a 4 mm x 2200 mm and then a 5 x 200 mm [employer] angioplasty balloon of the right superficial femoral and proximal popliteal artery. 07/31/2016 Excision and debridement of both legs, extensive necrotic wounds approximately 30 x 25 cm area on each side, total 1000 to 1100 cm square, down to the subcutaneous tissue and tendon on the left side. 09/03/2016 Right [id number] amputation Objective Remarks GENERAL: in no apparent distress. Sleeping, awakens for exam SKIN: Dry peeling skin over left posterior ear and upper neck skin. CARDIOVASCULAR: Regular rate and irregular rhythm without murmurs, gallops, or rubs. RESPIRATORY: Clear to auscultation. Breath sounds equal bilaterally. No wheezes , rales, or rhonchi. GASTROINTESTINAL: Abdomen soft, non-tender, nondistended. Normal, active bowel sounds MUSCULOSKELETAL: s/p right AKA NEURO: awake and alert A/P Problem List: (1) PVD (peripheral vascular disease) ICD Code: I73.9 (2) Obesity (BMI 30-39.9) ICD Code: E66.9 (3) Cardiomyopathy ICD Code: I42.9 (4) Impaired mobility and activities of daily living ICD Code: Z74.09 (5) Delirium due to another medical condition ICD Code: F05 (6) Acute kidney failure, unspecified ICD Code: N17.9 (7) Apnea ICD Code: R06.81 (8) VT (ventricular tachycardia) ICD Code: I47.2 (9) Peripheral vascular occlusive disease ICD Code: I73.9 (10) Cellulitis and abscess of lower extremity ICD Code: L02.419 (11) Confusion ICD Code: R41.0 (12) Urinary tract infection ICD Code: N39.0 (13) complicated/infected/necrotic foot and leg wounds (14) Lethargy ICD Code: R53.83 (15) Delirium ICD Code: R41.0 (16) Diabetes mellitus with peripheral angiopathy with gangrene ICD Code: E11.52 (17) Impaired cognition ICD Code: R41.89 (18) Minor neurocognitive disorder ICD Code: G31.84 (19) 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 (20) Hypoalbuminemia ICD Code: E88.09 (21) Uterine mass ICD Code: N85.9 (22) Cellulitis of left lower extremity ICD Code: L03.116 (23) Anemia ICD Code: D64.9 (24) Anoxic encephalopathy ICD Code: G93.1 (25) Chronic kidney disease (CKD) ICD Code: N18.9 (26) Ischemic ulcer of right ankle ICD Code: L97.319 (27) Pain ICD Code: R52 (28) Anemia in chronic illness ICD Code: D63.8 (29) JAYLAN (acute kidney injury) ICD Code: N17.9 (30) Enlarged uterus ICD Code: N85.2 (31) Endometrial thickening on ultra sound ICD Code: R93.8 (32) Weakness ICD Code: R53.1 (33) Encephalopathy ICD Code: G93.40 (34) Diabetes ICD Code: E11.9 (35) Hypothyroidism ICD Code: E03.9 (36) CHF (congestive heart failure) ICD Code: I50.9 (37) Hypertension ICD Code: I10 (38) DM (diabetes mellitus), type 2, uncontrolled w/neurologic complication ICD Code: E11.49 (39) Hx of AKA (above knee amputation) ICD Code: Z89.619 (40) UTI (urinary tract infection) ICD Code: N39.0 (41) Neuropathic pain ICD Code: M79.2 (42) Severe protein-calorie malnutrition ICD Code: E43 (43) Decreased appetite ICD Code: R63.0 (44) Decubitus ulcer ICD Code: L89.90 Assessment and Plan A/P -s/p right AKA for nonhealing ischemic wound. Stump well healing. cleared by vascular surgery for discharge. - Peripheral vascular disease with nonhealing left lower extremity wound with necrotic tendon, several necrotic toes-status post consultation with 3 vascular surgeons, plastic surgery, financial service rep. family declines amputation. topical hyperbaric oxygen therapy (numo bag) purchased by family. this therapy can be given in hospital or at home, but is not FDA approved. -Skin irritation Left ear: Triamcinolone cream 1% top q6hr PRN - Severe neuropathic pain - continue Neurontin. -Severe acute metabolic encephalopathy- continues to improve -exhaustive workup has been performed including initial LP which showed pleocytosis with lymphocyte predominance, see previous notes - Appreciate input from neurology, hematology, palliative care - EEG 09/04 -moderate encephalopathy. -MRI brain with and without contrast 09/07 negative -2nd neuro opinion (requested per family) with Dr. Bauer appreciated, family declines repeat LP as patient improving - C. Diff colitis, s/p treatment with vancomycin. ID/Dr. Quispe. - UTI - Microbiology grew ESBL ( 09/14/16) -previously was d/w ; no need to treat at this time. -Diabetes mellitus type II, currently with good Accu-Chek reads- Coverage with SSI. Monitor Accu-Cheks. Monitor for hypoglycemia. -Hypothyroidism - TSH on 09/08 23, Free T3 low at 0.72, free T4 nml. increased levothyroxine 150 g ->175. repeat TSH in several weeks. - Hypertension - Cardiomyopathy - EF 3540% -Continue carvedilol low dose. will consider JOYCE inhibitor if blood pressure will tolerate and renal function remained stable. currently normotensive. S/p cardiology eval. -Acute kidney injury, resolved. -Chronic kidney disease stage III. Improved, creatinine stable around 1. repeat labs in a.m. BMP pending -Severe malnutrition - dietary consult noted. Prealbumin is 7. Hopefully patient's by mouth intake will improve as she improves mental status. Consulted GI for eval for possible PEG tube. Started Marinol to stimulate appetite. Daughter Blanche wants to give the patient some time for improvement prior to considering PEG tube. Continue ensure, added multivitamin. - Abnormal uterine appearance - seen on abdominal and pelvis CT -pelvic ultrasound showing prominent endometrium, tumor markers negative, no history of vaginal bleeding -Heme on consult was requested per oncology service. Consider endometrial biopsy as outpatient. MRI abdomen canceled per family (did not want her sedated) . Anemia of chronic illness - stable, monitor transfuse prn Hb<7. decubitus ulcer- Seen by wound care 09/16 with instructions; Added wound care nursing instructions today. Plastic surgery reconsulted 09/19, has not yet seen patient. Hypokalemia- 2.9 yesterday s/p 60meq replacement. BMP this am pending Full code. Heparin SQ. d/w nurse Discharge Planning has been conditionally accepted by [facility]. hopefully will be accepted by rehab early this week Problem Qualifiers (1) Diabetes mellitus with peripheral angiopathy with gangrene: Qualified Code: E11.52 - Type 2 diabetes mellitus with diabetic peripheral angiopathy and gangrene, with long-term current use of insulin (2) Ischemic ulcer of right ankle: Qualified Code: L97.313 - Ischemic ulcer of right ankle, with necrosis of muscle (3) Hypothyroidism: Qualified Code: E03.9 - Acquired hypothyroidism (4) CHF (congestive heart failure): (5) DM (diabetes mellitus), type 2, uncontrolled w/neurologic complication: Estrella Choudhary MD Sep 21, 2016 07:44
[2016-09-21 08:17] VITALS: BP 120/58; PULSE 75; RESP 18; TEMP 97.5; O2SAT 99
[2016-09-21] MEDS: ASPIRIN EC 81 MG TABEC PO SCH (09:00)
[2016-09-21] MEDS: THIAMINE HCL 100 MG TAB PO SCH (09:00)
[2016-09-21] MEDS: MUPIROCIN 2% OINT 22 GM TUBE TOPICAL SCH ×2 (09:00→21:00)
[2016-09-21] MEDS: CARVEDILOL 3.125 MG TAB PO SCH ×2 (09:00→22:00)
[2016-09-21] MEDS: LIOTHYRONINE SODIUM 5 MCG TAB PO SCH (09:00)
[2016-09-21] MEDS: LACTOBACILLUS ACIDOPHILUS TAB PO SCH ×3 (09:00→15:49)
[2016-09-21 10:50] LABS: AUTOMATED NEUTROPHIL # 4.4 TH/MM3 (1.8-7.7); BASOPHIL # 0.1 TH/MM3 (0-0.2); BASOPHIL % 0.9 % (0.0-2.0); EOSINOPHIL # 0.2 TH/MM3 (0-0.4); EOSINOPHIL % 3.4 % (0.0-4.0); LYMPH % 21.6 % (9.0-44.0); LYMPHOCYTE # 1.4 TH/MM3 (1.0-4.8); MEAN CELL VOLUME 77.7 FL (80.0-100.0); MEAN CORPUSCULAR HEMOGLOBIN 24.5 PG (27.0-34.0); MEAN CORPUSCULAR HGB CONC 31.5 % (32.0-36.0); MONO % 6.7 % (0.0-8.0); NEUT % 67.4 % (16.0-70.0); PLATELET COUNT 260 TH/MM3 (150-450); RED BLOOD COUNT 3.35 MIL/MM3 (4.00-5.30); WHITE BLOOD COUNT 6.5 TH/MM3 (4.0-11.0)
[2016-09-21 10:54] LABS: HEMO FLAGS AUTO DIFF
[2016-09-21 10:57] LABS: BICARBONATE 25.2 MEQ/L (21.0-32.0); POTASSIUM 3.3 MEQ/L (3.5-5.1)
[2016-09-21] MEDS: DRONABINOL 2.5 MG CAP PO SCH ×2 (11:00→15:35)
[2016-09-21] MEDS: TRIAMCINOLONE ACETONIDE 0.1% CREAM 15 GM TOPICAL SCH ×3 (11:10→22:02)
[2016-09-21] MEDS ORDERED: POTASSIUM CHLORIDE 20 MEQ CONTROLLED RELEASE TAB PO ONE (11:45)
[2016-09-21 12:16] VITALS: BP 117/58; PULSE 72; RESP 18; TEMP 97.9; O2SAT 99
[2016-09-21 13:56] LABS: SCAN/DIFF AUTO DIFF CONFIRMED
[2016-09-21 16:37] VITALS: BP 136/65; PULSE 74; RESP 20; TEMP 98.3; O2SAT 100
[2016-09-21 20:00] VITALS: BP 125/61; PULSE 76; RESP 18; TEMP 99.9; O2SAT 97
[2016-09-21] MEDS: SODIUM CHLORIDE 0.9% FLUSH 5 ML FLUSH IV FLUSH SCH (21:00)
[2016-09-21] MEDS: MELATONIN 5 MG TAB PO SCH (21:00)
[2016-09-21] MEDS: ATORVASTATIN 80 MG TAB PO SCH (22:00)
[2016-09-22] VITALS: BP 114/70; PULSE 72; RESP 16; TEMP 99.6; O2SAT 96
[2016-09-22 04:00] VITALS: BP 113/56; PULSE 85; RESP 20; TEMP 98.5; O2SAT 97
[2016-09-22] MEDS: LEVOTHYROXINE SODIUM 25 MCG TAB PO SCH ×2 (05:14→06:00)
[2016-09-22] MEDS: LEVOTHYROXINE SODIUM 150 MCG TAB PO SCH ×2 (05:14→06:00)
[2016-09-22] MEDS: TRIAMCINOLONE ACETONIDE 0.1% CREAM 15 GM TOPICAL SCH ×4 (05:15→23:22)
[2016-09-22] MEDS: HYDROCORTISONE 1% CREAM 30 GM TOPICAL SCH ×3 (05:15→20:00)
[2016-09-22] MEDS: INSULIN ASPART SUPPLEMENTAL SCALE SQ SCH ×4 (06:33→23:16)
[2016-09-22 08:00] VITALS: BP 137/63; PULSE 73; RESP 20; TEMP 98.6; O2SAT 97
[2016-09-22 08:50] LABS: AUTOMATED NEUTROPHIL # 3.4 TH/MM3 (1.8-7.7); BASOPHIL % 0.7 % (0.0-2.0); EOSINOPHIL # 0.3 TH/MM3 (0-0.4); EOSINOPHIL % 4.4 % (0.0-4.0); HEMATOCRIT 25.8 % (35.0-46.0); LYMPH % 28.2 % (9.0-44.0); LYMPHOCYTE # 1.6 TH/MM3 (1.0-4.8); MEAN CORPUSCULAR HEMOGLOBIN 24.1 PG (27.0-34.0); MEAN CORPUSCULAR HGB CONC 31.3 % (32.0-36.0); NEUT % 58.7 % (16.0-70.0); PLATELET COUNT 235 TH/MM3 (150-450); RED BLOOD COUNT 3.35 MIL/MM3 (4.00-5.30); RED CELL DISTRIBUTION WIDTH 19.4 % (11.6-17.2); WHITE BLOOD COUNT 5.7 TH/MM3 (4.0-11.0)
[2016-09-22 08:58] LABS: HEMO FLAGS AUTO DIFF
[2016-09-22] MEDS: LACTOBACILLUS ACIDOPHILUS TAB PO SCH ×3 (09:00→17:03)
[2016-09-22] MEDS: SODIUM CHLORIDE 0.9% FLUSH 5 ML FLUSH IV FLUSH SCH ×2 (09:00→21:00)
[2016-09-22] MEDS: POTASSIUM CHLORIDE 20 MEQ CONTROLLED RELEASE TAB PO SCH (09:00)
[2016-09-22] MEDS: MUPIROCIN 2% OINT 22 GM TUBE TOPICAL SCH ×2 (09:00→21:00)
[2016-09-22 09:13] LABS: BICARBONATE 24.5 MEQ/L (21.0-32.0); POTASSIUM 3.6 MEQ/L (3.5-5.1)
[2016-09-22] MEDS: ASPIRIN EC 81 MG TABEC PO SCH (09:37)
[2016-09-22] MEDS: THIAMINE HCL 100 MG TAB PO SCH (09:37)
[2016-09-22] MEDS: LIOTHYRONINE SODIUM 5 MCG TAB PO SCH (09:38)
[2016-09-22] MEDS: CARVEDILOL 3.125 MG TAB PO SCH ×2 (09:38→23:16)
[2016-09-22 09:41] LABS: SCAN/DIFF AUTO DIFF CONFIRMED
[2016-09-22] MEDS: DRONABINOL 2.5 MG CAP PO SCH ×2 (11:00→16:00)
--- NOTE | 2016-09-22 11:04 | HHI.PR ---
Subjective Remarks is comfortable with no distress. anxious to leave the hospital. no new complaints. Objective Vitals Vital Signs Date Time Temp Pulse Resp B/P Pulse Ox O2 Delivery O2 Flow Rate FiO2 09/22/16 08:00 98.6 73 20 137/63 97 09/22/16 04:00 98.5 85 20 113/56 97 09/22/16 00:00 99.6 72 16 114/70 96 09/21/16 21:00 Room Air 09/21/16 20:00 99.9 76 18 125/61 97 09/21/16 16:37 98.3 74 20 136/65 100 09/21/16 12:16 97.9 72 18 117/58 99 I/O 09/21/16 09/21/16 09/21/16 09/22/16 09/22/16 09/22/16 07:00 15:00 23:00 07:00 15:00 23:00 Intake Total 780 ml 480 ml 240 ml 240 ml Output Total 150 ml Balance 630 ml 480 ml 240 ml 240 ml Intake Oral 780 ml 480 ml 240 ml 240 ml Output Urine Total 150 ml # Voids 1 0 1 # Bowel Movements 1 1 1 1 Result Diagram: 09/22/16 0825 09/22/16 0825 Imaging Last Impressions Brain MRI 09/07/16 0000 Signed Impressions: Service Date/Time: Wednesday, September 07, 2016 20:26 - CONCLUSION: 1. No acute findings. No significant change from August 25, 2016. No abnormal enhancement post contrast. Mild chronic white matter ischemic changes. Rolando Sharif MD Pelvis Ultrasound 09/05/16 0000 Signed Impressions: Service Date/Time: Monday, September 05, 2016 19:53 - CONCLUSION: Enlarged uterus with prominence of the endometrium. Alfredo Etienne MD Chest CT 09/05/16 0000 Signed Impressions: Service Date/Time: Monday, September 05, 2016 08:47 - CONCLUSION: 1. No worrisome masses. Please see above. 2. Dilatation of the aorta 4.3 cm. 3. Atherosclerosis. Addy Hillman MD Abdomen/Pelvis CT 09/05/16 0000 Signed Impressions: Service Date/Time: Monday, September 05, 2016 08:47 - CONCLUSION: 1. Fat containing umbilical hernias. 2. Extensive atherosclerosis. 3. Indeterminate low-density lesion in the liver, incompletely characterized without contrast. 4. Basilar air space disease and atelectasis with small pericardial effusion. 5. Abnormal appearance of the uterus as described above. A pelvic ultrasound will be helpful for further assessment on a nonemergent outpatient basis. Addy Hillman MD Lumbar Puncture Fluoroscopy 08/29/16 0000 Signed Impressions: Service Date/Time: Monday, August 29, 2016 16:39 - CONCLUSION: Uncomplicated fluoroscopically guided lumbar puncture with pressures as above. Alfredo Etienne MD Chest X-Ray 08/19/16 0000 Signed Impressions: Service Date/Time: Friday, August 19, 2016 18:46 - CONCLUSION: 1. Bibasilar streakiness consistent with atelectasis and/or infiltrates. 2. Cardiomegaly. 3. Poor inspiratory result. Shamar Banuelos MD Upper Extremity Ultrasound 07/28/16 0000 Signed Impressions: Service Date/Time: Thursday, July 28, 2016 14:34 - CONCLUSION: No DVT is identified within the right upper extremity. Alfredo Eng MD Head CT 07/19/16 0000 Signed Impressions: Service Date/Time: Tuesday, July 19, 2016 09:58 - CONCLUSION: No acute intracranial findings. João Otoole MD Foot X-Ray 07/16/16 0000 Signed Impressions: Service Date/Time: Saturday, July 16, 2016 17:34 - CONCLUSION: 1. Nonspecific soft tissue swelling. No acute bone destruction demonstrated. 2. Mild talonavicular and navicular/cuneiform degenerative changes. 3. Second through fifth hammertoe. 4. Moderate-sized heel spur. Alfredo Sneed MD Objective Remarks GENERAL: in no apparent distress. CARDIOVASCULAR: Regular rate and irregular rhythm without murmurs, gallops, or rubs. RESPIRATORY: Clear to auscultation. Breath sounds equal bilaterally. No wheezes , rales, or rhonchi. GASTROINTESTINAL: Abdomen soft, non-tender, nondistended. 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 NEURO: awake and alert Procedures 08/08/2016 PROCEDURE 1. Selective right lower extremity arteriogram. 2. Balloon angioplasty with a 4 mm x 2200 mm and then a 5 x 200 mm Med[employer] angioplasty balloon of the right superficial femoral and proximal popliteal artery. 07/31/2016 Excision and debridement of both legs, extensive necrotic wounds approximately 30 x 25 cm area on each side, total 1000 to 1100 cm square, down to the subcutaneous tissue and tendon on the left side. 09/03/2016 Right [id number] amputation Medications and IVs Current Medications Sodium Chloride (NS 1000 ml Inj) 1,000 ml @ 84 mls/hr [id number] IV Last administered on 08/05/16 16:12; Start 07/15/16 at 19:42; Stop 08/18/16 at 15:34 ; Status DC IV Flush (NS Flush) 2 ml UNSCH PRN IV FLUSH FLUSH AFTER USING IV ACCESS Last administered on 08/12/16 05:30; Start 07/15/16 at 19:45 IV Flush (NS Flush) 2 ml BID IV FLUSH Last administered on 09/20/16 21:52; Start 07/15/16 at 21:00 Fentanyl Citrate (fentaNYL INJ) 50 mcg Q3H PRN IV PUSH Pain scale 7-10 &/or sedation Last administered on 07/15/16 21:44; Start 07/15/16 at 19:45; Stop at 11:51; Status DC Famotidine (Pepcid Inj) 20 mg Q12HR IV PUSH Last administered on 07/15/16 20: 19; Start 07/15/16 at 21:00; Stop 07/15/16 at 21:24; Status DC Ondansetron HCl (Zofran Inj) 4 mg Q6H PRN IV NAUSEA OR VOMITING Last administered on 07/31/16 13:23; Start 07/15/16 at 19:45; Stop 08/12/16 at 20:17 ; Status DC Metoclopramide HCl (Reglan Inj) 5 mg Q6H PRN IV NAUSEA OR VOMITING Last administered on 09/06/16 21:32; Start 07/15/16 at 19:45 Docusate Sodium (Colace) 100 mg BID PO Last administered on 08/07/16 21:00; Start 07/15/16 at 21:00; Stop 08/08/16 at 22:08; Status DC Albuterol/ Ipratropium (Duoneb Neb) 1 ampule Q2HR NEB PRN INH WHEEZING; Start 07/15/16 at 19:45 Heparin Sodium (Porcine) (Heparin Inj) 5,000 units Q8HR SQ Last administered on 08/28/16 12:46; Start 07/15/16 at 22:00; Stop 09/03/16 at 23:47; Status DC Miscellaneous Information 1 [id number] Last administered on 07/15/16 19:45; Start 07/15/16 at 19:45; Stop 09/04/16 at 03:06; Status DC Chlorhexidine Gluconate (Chlorhexidine 2% Cloth) Taper DAILY@04 TOP Last administered on 07/17/16 03:11; Start 07/16/16 at 04:00; Stop 09/04/16 at 03:06 ; Status DC Chlorhexidine Gluconate (Chlorhexidine 2% Cloth) 3 pack UNSCH PRN TOP HYGIENIC CARE; Start 07/15/16 at 19:45; Stop 09/04/16 at 03:06; Status DC Acetaminophen (Ofirmev Inj) 1,000 mg Q6H PRN IV PAIN SCALE 1 TO 6; Start at 20:00; Stop 07/18/16 at 11:51; Status DC Ketorolac Tromethamine (Toradol Inj) 30 mg Q6H PRN IM PAIN SCALE 1 TO 7; Start 07/15/16 at 20:00; Stop 07/15/16 at 20:10; Status DC Ketorolac Tromethamine (Toradol Inj) 30 mg Q6H PRN IV PUSH PAIN 1-6 Last administered on 07/15/16 20:34; Start 07/15/16 at 20:15; Stop 07/18/16 at 11:51 ; Status DC Carvedilol (Coreg) 25 mg BID PO Last administered on 08/17/16 10:24; Start at 21:00; Stop 08/17/16 at 16:06; Status DC Fluconazole (Diflucan) 75 mg DAILY@17 PO Last administered on 07/16/16 17:03; Start 07/16/16 at 17:00; Stop 07/17/16 at 08:09; Status DC Isosorbide Dinitrate (Isordil) 5 mg Q8HR PO Last administered on 09/02/16 05: 38; Start 07/15/16 at 22:00; Stop 09/03/16 at 23:47; Status DC Lactobacillus Acidophilus (Lactinex) 1 tab TID PO Last administered on 08:32; Start 07/16/16 at 09:00; Stop 08/25/16 at 08:59; Status DC Levofloxacin (Levaquin) 250 mg Q48H PO Last administered on 07/21/16 21:05; Start 07/15/16 at 22:00; Stop 07/23/16 at 16:37; Status DC Levothyroxine Sodium (Synthroid) 150 mcg DAILY@06 PO Last administered on 05:47; Start 07/16/16 at 06:00; Stop 09/09/16 at 17:57; Status DC Liothyronine Sodium (Cytomel) 5 mcg DAILY PO Last administered on 09/22/16 09: 38; Start 07/16/16 at 09:00 Non-Formulary Medication 325 mg DAILY PO ; Start 07/16/16 at 09:00; Status UNV Miscellaneous (Pill Splitter) 1 ea UNSCH PRN OTHER SEE LABEL COMMENTS; Start at 21:30 Famotidine (Pepcid Inj) 10 mg Q12HR IV PUSH Last administered on 07/17/16 07: 29; Start 07/16/16 at 09:00; Stop 07/18/16 at 10:59; Status DC Aspirin (Ecotrin Ec) 325 mg DAILY PO Last administered on 08/25/16 08:30; Start 07/16/16 at 09:00; Stop 08/25/16 at 16:10; Status DC Etomidate (Amidate Inj) 20 mg STK-MED ONCE .ROUTE ; Start 07/16/16 at 17:07; Stop 07/16/16 at 17:08; Status DC Famotidine (Pepcid Inj) 20 mg Q12HR IV PUSH Last administered on 08/12/16 09: 05; Start 07/18/16 at 21:00; Stop 08/12/16 at 20:17; Status DC Hydromorphone HCl (Dilaudid Pf Inj) 0.5 mg ONCE ONCE IV PUSH Last administered on 08/04/16 18:00; Start 07/18/16 at 11:45; Stop 07/18/16 at 11:46 ; Status DC Hydromorphone HCl (Dilaudid Pf Inj) 0.5 mg Q4H PRN IV PUSH breakthrough pain / dresing lori Last administered on 08/31/16 05:32; Start 07/18/16 at 11:45; Stop 09/03/16 at 23:47; Status DC Acetaminophen/ Hydrocodone Bitart (Dowell 5-325 Mg) 1 tab Q6H PRN PO pain 2-10 Last administered on 08/12/16 09:04; Start 07/18/16 at 11:45; Stop 08/12/16 at 20:17; Status DC Diphenhydramine HCl 50 mg 50 mg STK-MED ONCE .ROUTE ; Start 07/19/16 at 11:20; Stop 07/19/16 at 11:21; Status DC Levetriacetam/ Sodium Chloride (Keppra Inj/NS Inj) 105 ml @ 420 mls/hr Q12HR IV Last administered on 07/20/16 08:19; Start 07/19/16 at 13:00; Stop at 16:25; Status DC Haloperidol Lactate (Haldol Inj) 2 mg Q6H PRN IM aggittation Last administered on 07/30/16 01:29; Start 07/19/16 at 12:30; Stop 09/03/16 at 23:47; Status DC Lorazepam 1 mg 1 mg Q6H PRN IV PUSH seizures/agiatation Last administered on 06:09; Start 07/19/16 at 12:30; Stop 09/03/16 at 23:47; Status DC Valproate Sodium 500 mg/Sodium Chloride 105 ml @ 105 mls/hr Q8H IV Last administered on 07/25/16 09:26; Start 07/20/16 at 18:00; Stop 07/25/16 at 09:54; Status DC Cefepime HCl/ Sodium Chloride (Maxipime Inj/NS Inj) 100 ml @ 200 mls/hr Q12H IV Last administered on 07/27/16 02:43; Start 07/21/16 at 15:00; Stop 07/27/16 at 09:00; Status DC Dextrose (D50w (Vial) Inj) 25 ml UNSCH PRN IV PUSH HYPOGLYCEMIA-SEE COMMENTS; Start 07/23/16 at 11:00 Glucagon (Glucagon Inj) 1 mg UNSCH PRN OTHER HYPOGLYCEMIA-SEE COMMENTS; Start 07/23/16 at 11:00 Insulin Aspart (NovoLOG SUPPLEMENTAL SCALE) 1 ACHS SLIDING SCALE SQ Last administered on 09/22/16 06:33; Start 07/23/16 at 11:00 Potassium Chloride (KCl) 40 meq ONCE ONCE PO Last administered on 07/24/16 13: 00; Start 07/24/16 at 13:00; Stop 07/24/16 at 13:01; Status DC Valproic Acid (Depakene) 500 mg Q8HR PO Last administered on 07/26/16 14:52; Start 07/25/16 at 15:00; Stop 07/26/16 at 17:39; Status DC Potassium Chloride (KCl) 30 meq ONCE ONCE PO Last administered on 07/26/16 19: 30; Start 07/26/16 at 16:30; Stop 07/26/16 at 16:36; Status DC Potassium Chloride (KCl) 30 meq ONCE ONCE PO Last administered on 07/26/16 22: 16; Start 07/26/16 at 20:00; Stop 07/26/16 at 20:01; Status DC Valproic Acid (Depakene) 250 mg Q12HR PO Last administered on 09/04/16 09:07; Start 07/27/16 at 09:00; Stop 09/04/16 at 16:16; Status DC Hydromorphone HCl (Dilaudid Pf Inj) 0.5 mg ONCE ONCE IV PUSH Last administered on 07/27/16 10:42; Start 07/27/16 at 10:45; Stop 07/27/16 at 10:46; Status DC Valsartan (Diovan) 80 mg HS PO Last administered on 08/19/16 21:58; Start 07/27 at 21:00; Stop 08/20/16 at 18:58; Status DC Enalaprilat (Vasotec Inj) 1.25 mg Q8H PRN IV PUSH SBP >180 OR DBP >100; Start 07/28/16 at 16:00 Fluconazole 100 mg 100 mg DAILY PO Last administered on 08/05/16 11:34; Start 07/30/16 at 09:45; Stop 08/05/16 at 16:53; Status DC Ceftriaxone Sodium/Sodium Chloride (Rocephin Inj/NS Inj) 100 ml @ 200 mls/hr Q24H IV Last administered on 08/01/16 09:45; Start 07/30/16 at 10:00; Stop 03/10 at 11:59; Status DC Potassium Chloride (KCl) 30 meq ONCE ONCE PO Last administered on 07/30/16 12: 12; Start 07/30/16 at 09:45; Stop 07/30/16 at 09:53; Status DC Potassium Chloride (KCl) 30 meq ONCE ONCE PO Last administered on 07/30/16 14: 00; Start 07/30/16 at 14:00; Stop 07/30/16 at 14:01; Status DC Insulin Detemir (Levemir Inj) 5 units HS SQ Last administered on 09/03/16 20: 17; Start 07/30/16 at 21:00; Status Hold Melatonin (Melatonin) 5 mg HS PO Last administered on 09/15/16 21:03; Start at 21:00 Bupivacaine HCl (Marcaine Pf 0.5% Inj) 30 ml STK-MED ONCE .ROUTE ; Start at 10:12; Stop 07/31/16 at 10:13; Status DC Bupivacaine HCl/ Epinephrine Bitart (Sensorcaine-Epi 0.5% 50 ml Inj) 50 ml STK- MED ONCE .ROUTE ; Start 07/31/16 at 10:12; Stop 07/31/16 at 10:13; Status DC Bacitracin (Baciguent Oint) 15 applic STK-MED ONCE .ROUTE ; Start 07/31/16 at 10: 12; Stop 07/31/16 at 10:13; Status DC Dexamethasone Sodium Phosphate (Decadron Inj) 4 mg STK-MED ONCE .ROUTE Last administered on 07/31/16 10:24; Start 07/31/16 at 10:22; Stop 07/31/16 at 10:23; Status DC Famotidine (Pepcid Inj) 20 mg STK-MED ONCE IV PUSH Last administered on 10:23; Start 07/31/16 at 10:23; Stop 07/31/16 at 10:27; Status DC Fentanyl Citrate 500 mcg 500 mcg STK-MED ONCE .ROUTE ; Start 07/31/16 at 12:13; Stop 07/31/16 at 12:14; Status DC Gentamicin Sulfate/Sodium Chloride (Gentamicin Inj/ NS Irr Btl) 1,005 ml @ 0 mls/hr UNSCH PRN IRRIGATION DRESSING CHANGES; Start 07/31/16 at 13:30 Miscellaneous Information ALL NURSING DEPARTME... UNSCH PRN XX SEE LABEL COMMENTS; Start 07/31/16 at 13:30; Stop 08/01/16 at 13:29; Status DC Propofol (Diprivan 200 Mg/20 ml Inj) 200 mg STK-MED ONCE IV ; Start 07/31/16 at 12:42; Stop 08/04/16 at 12:43; Status DC Ephedrine Sulfate (ePHEDrine/NS 25 MG/5 ML SYR) 25 mg STK-MED ONCE IV ; Start at 12:42; Stop 08/04/16 at 12:43; Status DC Phenylephrine HCl (Neosynephrine/ NS 1000 Mcg/10ml Syr) 1,000 mcg STK-MED ONCE IV ; Start 07/31/16 at 12:42; Stop 08/04/16 at 12:43; Status DC Ondansetron HCl (Zofran Inj) 4 mg STK-MED ONCE IV PUSH ; Start 07/31/16 at 12:42 ; Stop 08/04/16 at 12:43; Status DC Prednisone (Deltasone) 50 mg Q6H PO Last administered on 08/08/16t 04:00; Start 08/07/16 at 16:00; Stop 08/08/16 at 04:01; Status DC Diphenhydramine HCl (Benadryl Inj) 50 mg ONCE ONCE IV ; Start 08/07/16 at 16:00 ; Stop 08/07/16 at 16:01; Status DC Midazolam HCl (Versed Inj) 2 mg STK-MED ONCE .ROUTE ; Start 08/08/16 at 08:24; Stop 08/08/16 at 08:25; Status DC Diphenhydramine HCl (Benadryl Inj) 50 mg STK-MED ONCE .ROUTE ; Start 08/08/16 at 08:24; Stop 08/08/16 at 08:25; Status DC Hydrocortisone Sodium Succinate (SoluCORTEF INJ) 100 mg STK-MED ONCE .ROUTE Last administered on 08/08/16 08:52; Start 08/08/16 at 08:50; Stop 08/08/16 at 08:51; Status DC Ketamine HCl (Ketalar Inj) 500 mg STK-MED ONCE .ROUTE ; Start 08/08/16 at 08:59 ; Stop 08/08/16 at 09:00; Status DC Iohexol 100 ml 100 ml STK-MED ONCE OTHER Last administered on 08/08/16 08:50; Start 08/08/16 at 08:50; Stop 08/08/16 at 09:45; Status DC Nitroglycerin/ Dextrose (Nitroglycerin-Dextrose Inj) 250 ml @ As Directed STK- MED ONCE .ROUTE ; Start 08/08/16 at 09:57; Stop 08/08/16 at 09:58; Status DC Iohexol (Omnipaque 300 Inj) 50 ml STK-MED ONCE OTHER Last administered on 10:10; Start 08/08/16 at 10:10; Stop 08/08/16 at 10:31; Status DC Midazolam HCl (Versed Inj) 2 mg STK-MED ONCE .ROUTE ; Start 08/08/16 at 11:01; Stop 08/08/16 at 11:02; Status DC Fentanyl Citrate (fentaNYL INJ) 250 mcg STK-MED ONCE .ROUTE ; Start 08/08/16 at 11:02; Stop 08/08/16 at 11:03; Status DC Fentanyl Citrate (fentaNYL INJ) 100 mcg STK-MED ONCE .ROUTE ; Start 08/08/16 at 11:02; Stop 08/08/16 at 11:03; Status DC Morphine Sulfate (Morphine Inj) 4 mg STK-MED ONCE .ROUTE ; Start 08/08/16 at 11: 03; Stop 08/08/16 at 11:04; Status DC Morphine Sulfate (*morphine INJ PERIprocedure ONLY) 8 mg STK-MED ONCE .ROUTE Last administered on 08/08/16 11:17; Start 08/08/16 at 11:17; Stop 08/08/16 at 11:18; Status DC Miscellaneous Information ALL NURSING DEPARTME... UNSCH PRN XX SEE LABEL COMMENTS; Start 08/08/16 at 12:30; Stop 08/09/16 at 12:29; Status DC Lorazepam (Ativan) 0.25 mg Q12H PRN PO ANXIETY; Start 08/09/16 at 14:00; Stop 08/11/16 at 14:33; Status DC Propofol (Diprivan 200 Mg/20 ml Inj) 800 mg STK-MED ONCE IV ; Start 08/08/16 at 12:00; Stop 08/11/16 at 12:57; Status DC Heparin Sodium (Porcine) (Heparin Inj) 5,000 units STK-MED ONCE OTHER ; Start at 12:00; Stop 08/11/16 at 13:02; Status DC Potassium Chloride (KCl) 10 meq Q8HR PO Last administered on 08/16/16 06:08; Start 08/11/16 at 14:00; Stop 08/16/16 at 13:59; Status DC Clonazepam (KlonoPIN) 0.5 mg Q8HR PO Last administered on 08/12/16 05:29; Start 08/11/16 at 14:45; Stop 08/12/16 at 12:49; Status DC Diphenhydramine HCl (Benadryl) 25 mg ONCE ONCE PO Last administered on 17:50; Start 08/11/16 at 14:45; Stop 08/11/16 at 15:05; Status DC Clonazepam (KlonoPIN) 0.5 mg Q8H PRN PO ANXIETY Last administered on 08/30/16 22:50; Start 08/12/16 at 12:45; Stop 09/03/16 at 23:47; Status DC Gabapentin (Neurontin) 200 mg TID PO Last administered on 08/12/16 14:59; Start 08/12/16 at 13:00; Stop 08/14/16 at 16:07; Status DC Methadone HCl (Dolophine) 2.5 mg Q12HR PO Last administered on 09/01/16 21:49 ; Start 08/12/16 at 21:00; Stop 09/03/16 at 23:47; Status DC Doxycycline Hyclate (Vibratab) 100 mg Q12HR PO Last administered on 08/16/16 22:41; Start 08/12/16 at 22:45; Stop 08/17/16 at 08:21; Status DC Quetiapine Fumarate (SEROquel) 12.5 mg ONCE ONCE PO Last administered on 10:45; Start 08/13/16 at 10:45; Stop 08/13/16 at 10:50; Status DC Quetiapine Fumarate (SEROquel) 12.5 mg BID PO Last administered on 08/13/16 20 :32; Start 08/13/16 at 21:00; Stop 08/14/16 at 12:41; Status DC Gabapentin (Neurontin) 300 mg ONCE ONCE PO Last administered on 08/13/16 11: 00; Start 08/13/16 at 11:00; Stop 08/13/16 at 11:09; Status DC Acetaminophen (Tylenol) 500 mg Q6H PRN PO FEVER >100.4 Last administered on 17:12; Start 08/13/16 at 17:15 Quetiapine Fumarate (SEROquel) 6.25 mg HS PO Last administered on 09/01/16 21: 00; Start 08/14/16 at 21:00; Stop 09/03/16 at 23:47; Status DC Quetiapine Fumarate (SEROquel) 6.25 mg DAILY PRN PO agitated delirium Last administered on 09/01/16 12:37; Start 08/14/16 at 12:45; Stop 09/03/16 at 23:47 ; Status DC Gabapentin (Neurontin) 300 mg TID PO Last administered on 08/15/16 13:25; Start 08/15/16 at 09:00; Stop 08/15/16 at 14:20; Status DC Gabapentin (Neurontin) 400 mg ONCE ONCE PO ; Start 08/14/16 at 16:15; Stop at 16:15; Status DC Gabapentin (Neurontin) 200 mg ONCE ONCE PO Last administered on 08/14/16 17: 00; Start 08/14/16 at 16:30; Stop 08/14/16 at 16:33; Status DC Gabapentin (Neurontin) 400 mg TID PO Last administered on 08/18/16 12:34; Start 08/15/16 at 18:00; Stop 08/18/16 at 13:52; Status DC Mupirocin (Bactroban 2% Oint) 1 applic Q12HR TOPICAL Last administered on 09:00; Start 08/15/16 at 15:00 Hydrocortisone 1 applic 1 applic Q8H TOPICAL Last administered on 09/22/16 05: 15; Start 08/15/16 at 20:00 Levofloxacin/ Dextrose (Levaquin 750 Mg Premix Inj) 150 ml @ 100 mls/hr Q24H IV Last administered on 08/16/16 09:41; Start 08/16/16 at 08:00; Stop at 08:21; Status DC Lactobacillus Acidophilus 1 tab 1 tab TID PO Last administered on 09/22/16 09: 00; Start 08/16/16 at 09:00 Vancomycin HCl 1750 mg/Sodium Chloride 517.5 ml @ 258.75 mls/ hr ONCE ONCE IV Last administered on 08/17/16 10:21; Start 08/17/16 at 10:00; Stop 08/17/16 at 11:59; Status DC Pharmacy Profile Note 0 ml @ 0 mls/hr UNSCH OTHER ; Start 08/17/16 at 08:15; Stop 08/18/16 at 16:18; Status DC Piperacillin Sod/ Tazobactam Sod 50 ml @ 100 mls/hr Q6H IV Last administered on 08/18/16 09:15; Start 08/17/16 at 09:00; Stop 08/18/16 at 13:02; Status DC Sodium Chloride 1,000 ml @ 999 mls/hr BOLUS ONCE IV Last administered on 08/17 08:30; Start 08/17/16 at 08:30; Stop 08/17/16 at 09:30; Status DC Sodium Chloride 1,000 ml @ 200 mls/hr Q5H IV ; Start 08/17/16 at 09:00; Stop at 18:59; Status DC Vancomycin HCl/ Sodium Chloride (Vancomycin Inj/ NS 250 ml Inj) 250 ml @ 250 mls/hr Q12H IV Last administered on 08/18/16 12:33; Start 08/17/16 at 22:00; Stop 08/18/16 at 16:31; Status DC Miscellaneous Information SPECIFIC LAB TO BE [facility]... ONCE ONCE XX ; Start at 21:45; Stop 08/18/16 at 21:45; Status DC Olanzapine 10 mg 10 mg Q12H PRN IM acute agitation; Start 08/17/16 at 16:15; Stop 08/19/16 at 16:14; Status DC Levofloxacin/ Dextrose 150 ml @ 100 mls/hr Q24H IV ; Start 08/18/16 at 09:00; Stop 08/18/16 at 09:00; Status DC Levofloxacin/ Dextrose (Levaquin 750 Mg Premix Inj) 150 ml @ 100 mls/hr Q48H IV Last administered on 08/18/16 09:54; Start 08/18/16 at 09:00; Stop at 13:02; Status DC Miscellaneous Medication (ASP Crit: Doc ESBL, MDR A baumannii or P aer) 1 UNSCH X1 PRN XX PHARMACY DOCUMENTATION; Start 08/18/16 at 13:00; Stop 08/19/16 at 12: 59; Status DC Miscellaneous Medication 1 1 UNSCH X1 PRN XX PHARMACY DOCUMENTATION; Start at 13:00; Stop 08/19/16 at 12:59; Status DC Meropenem/Sodium Chloride (Merrem Inj/NS Inj) 100 ml @ 200 mls/hr Q8H IV Last administered on 08/21/16 06:14; Start 08/18/16 at 14:00; Stop 08/21/16 at 07:36 ; Status DC Gabapentin 600 mg 600 mg TID PO Last administered on 09/01/16 18:44; Start at 18:00; Stop 09/02/16 at 21:42; Status DC Sodium Chloride 1,000 ml @ 150 mls/hr Q6H40M IV Last administered on 17:44; Start 08/18/16 at 15:30; Stop 08/20/16 at 17:43; Status DC Sodium Chloride (NS 250 ml Inj) 250 ml @ 15 mls/hr ONCE ONCE IV Last administered on 08/19/16 06:34; Start 08/18/16 at 16:45; Stop 08/19/16 at 09:24 ; Status DC Acetaminophen (Tylenol) 650 mg Q4H PRN PO SEE LABEL COMMENTS; Start 08/18/16 at 16:45; Stop 08/18/16 at 20:46; Status DC Diphenhydramine HCl 25 mg 25 mg Q4H PRN PO SEE LABEL COMMENTS; Start 08/18/16 at 16:45; Stop 08/18/16 at 20:46; Status DC Linezolid (Zyvox 600 Mg Premix) 300 ml @ 300 mls/hr Q12H IV Last administered on 08/20/16 22:54; Start 08/19/16 at 08:00; Stop 08/21/16 at 07:36; Status DC Albumin Human (Albumin 25% Inj) 12.5 gm Q8H IV Last administered on 08/22/16 11:31; Start 08/20/16 at 20:00; Stop 08/22/16 at 13:51; Status DC Bumetanide (Bumex Inj) 1 mg Q8H IV PUSH Last administered on 08/22/16 12:44; Start 08/20/16 at 20:00; Stop 08/22/16 at 13:51; Status DC Metronidazole (Flagyl) 500 mg Q6HR PO ; Start 08/21/16 at 09:00; Stop 08/21/16 at 09:00; Status DC Vancomycin HCl (VANCOMYCIN for oral use only) 500 mg QID PO Last administered on 08/25/16 12:22; Start 08/21/16 at 09:00; Stop 08/25/16 at 13:53; Status DC Chlorothiazide Sodium (Diuril Inj) 250 mg ONCE ONCE IV Last administered on 21:03; Start 08/21/16 at 20:00; Stop 08/21/16 at 20:01; Status DC Potassium Phos/ Sodium Phos (K-Phos Neutral) 250 mg BID PO Last administered on 08/22/16 07:41; Start 08/21/16 at 21:00; Stop 08/22/16 at 20:59; Status DC Bumetanide (Bumetanide) 1 mg DAILY PO Last administered on 09/01/16 08:18; Start 08/23/16 at 09:00; Stop 09/03/16 at 23:47; Status DC Potassium Chloride (KCl) 20 meq ONCE ONCE PO Last administered on 08/22/16 14 :23; Start 08/22/16 at 14:00; Stop 08/22/16 at 14:01; Status DC Valsartan (Diovan) 40 mg DAILY PO Last administered on 09/01/16 08:18; Start 08/23/16 at 09:00; Stop 09/03/16 at 23:47; Status DC Vancomycin HCl (VANCOMYCIN for oral use only) 125 mg QID PO Last administered on 09/09/16 12:29; Start 08/25/16 at 18:00; Stop 09/09/16 at 17:59; Status DC Lorazepam (Ativan Inj) 0.5 mg UNSCH X1 IV Last administered on 08/25/16 18:32 ; Start 08/25/16 at 17:00; Stop 08/25/16 at 23:00; Status DC Diphenhydramine HCl (Benadryl) 25 mg ONCE ONCE PO Last administered on 22:15; Start 08/26/16 at 22:00; Stop 08/26/16 at 22:01; Status DC Lorazepam (Ativan Inj) 1 mg ONCE ONCE IV PUSH Last administered on 08/29/16 17 :10; Start 08/29/16 at 17:00; Stop 08/29/16 at 17:01; Status DC Hydromorphone HCl (Dilaudid Pf Inj) 0.5 mg ONCE ONCE IV PUSH Last administered on 08/29/16 17:11; Start 08/29/16 at 17:00; Stop 08/29/16 at 17:01; Status DC Olanzapine 5 mg 5 mg HS PO Last administered on 09/01/16 21:49; Start 08/30/16 at 21:15; Stop 09/03/16 at 23:47; Status DC Potassium Chloride/Lactated Ringer's (KCl Inj/Lr 1000 ml Inj) 1,010 ml @ 42 mls /hr Q24H IV Last administered on 09/10/16 07:14; Start 09/02/16 at 00:00; Stop 09/12/16 at 20:35; Status DC Vancomycin HCl (Vancomycin Inj) 1,000 mg STK-MED ONCE OTHER Last administered on 09/02/16 16:51; Start 09/02/16 at 16:51; Stop 09/02/16 at 16:59; Status DC Morphine Sulfate (Morphine Inj) 2 mg Q4HR PRN IM Pain 1-10 Last administered on 09/11/16 11:27; Start 09/03/16 at 16:15 Haloperidol Lactate (Haldol Inj) 1 mg Q6H PRN IM Psychosis, delirium Last administered on 09/04/16 09:17; Start 09/03/16 at 16:15; Status Hold Heparin Sodium (Porcine) (Heparin Inj) 5,000 units Q12HR SQ Last administered on 09/09/16 21:39; Start 09/04/16 at 09:00; Stop 09/10/16 at 07:38; Status DC Dronabinol (Marinol) 2.5 mg BID@11,16 PO Last administered on 09/10/16 13:54; Start 09/05/16 at 11:00 Dronabinol (Marinol) 2.5 mg ONCE ONCE PO Last administered on 09/04/16 21:51 ; Start 09/04/16 at 17:15; Stop 09/04/16 at 17:17; Status DC Aspirin (Ecotrin Ec) 81 mg DAILY PO Last administered on 09/22/16 09:37; Start 09/05/16 at 09:00 Carvedilol (Coreg) 3.125 mg Q12HR PO Last administered on 09/22/16 09:38; Start 09/05/16 at 09:00 Lorazepam (Ativan Inj) 0.5 mg HOUSEKEEPING LEAD ONCE IV PUSH ; Start 09/06/16 at 18:15; Stop 09/06/16 at 18:30; Status DC Atorvastatin Calcium (Lipitor) 80 mg HS PO Last administered on 09/21/16 22:00 ; Start 09/06/16 at 21:00 Lorazepam (Ativan Inj) 0.5 mg HOUSEKEEPING LEAD ONCE IV PUSH Last administered on 20:08; Start 09/07/16 at 20:15; Stop 09/07/16 at 20:16; Status DC Gadodiamide (Omniscan Pf Inj) 16 ml STK-MED ONCE IV Last administered on 20:45; Start 09/07/16 at 20:45; Stop 09/07/16 at 20:46; Status DC Lorazepam 0.5 mg 0.5 mg ONCE ONCE IV PUSH ; Start 09/08/16 at 13:00; Stop 09/08 at 13:01; Status DC Thiamine HCl/ Sodium Chloride (Thiamine Inj/NS Inj) 101 ml @ 101 mls/hr DAILY IV Last administered on 09/17/16 09:01; Start 09/09/16 at 10:00; Stop at 13:29; Status DC Propofol (Diprivan 200 Mg/20 ml Inj) 200 mg STK-MED ONCE IV ; Start 09/02/16 at 12:00; Stop 09/09/16 at 13:30; Status DC Ephedrine Sulfate (ePHEDrine/NS 25 MG/5 ML SYR) 25 mg STK-MED ONCE IV ; Start at 12:00; Stop 09/09/16 at 13:30; Status DC Phenylephrine HCl (Neosynephrine/ NS 1000 Mcg/10ml Syr) 1,000 mcg STK-MED ONCE IV ; Start 09/02/16 at 12:00; Stop 09/09/16 at 13:30; Status DC Ondansetron HCl 4 mg 4 mg STK-MED ONCE IV PUSH ; Start 09/02/16 at 12:00; Stop 09/09/16 at 13:30; Status DC Sodium Chloride 250 ml @ As Directed STK-MED ONCE IV ; Start 09/02/16 at 12:00 ; Stop 09/09/16 at 13:30; Status DC Parenteral Electrolytes (Normosol R Inj) 1,000 ml @ As Directed STK-MED ONCE IV ; Start 09/02/16 at 12:00; Stop 09/09/16 at 13:30; Status DC Levothyroxine Sodium (Synthroid) 175 mcg DAILY@06 PO ; Start 09/10/16 at 06:00; Status UNV Levothyroxine Sodium (Synthroid) 150 mcg DAILY@06 PO Last administered on 05:30; Start 09/10/16 at 06:00 Levothyroxine Sodium (Synthroid) 25 mcg DAILY@06 PO Last administered on 05:30; Start 09/10/16 at 06:00 Fentanyl Citrate (fentaNYL INJ) 100 mcg STK-MED ONCE IV ; Start 09/02/16 at 12: 00; Stop 09/10/16 at 12:44; Status DC Diphenhydramine HCl (Benadryl 2% Cream) 1 applic TID PRN TOPICAL ITCHING Last administered on 09/20/16 21:52; Start 09/14/16 at 14:00 Thiamine HCl (Vitamin B1) 100 mg DAILY PO Last administered on 09/22/16 09:37; Start 09/19/16 at 09:00 Potassium Chloride (KCl) 40 meq ONCE ONCE PO Last administered on 09/20/16 11 :53; Start 09/20/16 at 11:45; Stop 09/20/16 at 11:46; Status DC Potassium Chloride (KCl) 20 meq ONCE ONCE PO Last administered on 09/20/16 16 :14; Start 09/20/16 at 16:00; Stop 09/20/16 at 16:01; Status DC Triamcinolone Acetonide (Aristocort 0.1% Cream) 1 applic Q6HR TOPICAL Last administered on 09/22/16 05:15; Start 09/21/16 at 12:00 Potassium Chloride (KCl) 40 meq ONCE ONCE PO Last administered on 09/21/16 15 :54; Start 09/21/16 at 11:45; Stop 09/21/16 at 11:46; Status DC Potassium Chloride (KCl) 20 meq DAILY PO ; Start 09/22/16 at 09:00 A/P Assessment and Plan A/P -s/p right AKA for nonhealing ischemic wound. Stump well healing. cleared by vascular surgery for discharge. - Peripheral vascular disease with nonhealing left lower extremity wound with necrotic tendon, several necrotic toes-status post consultation with 3 vascular surgeons, plastic surgery, home security professional. family declines amputation. topical hyperbaric oxygen therapy (numo bag) purchased by family. this therapy can be given in hospital or at home, but is not FDA approved. - Severe neuropathic pain - continue Neurontin. -Severe acute metabolic encephalopathy- continues to improve -exhaustive workup has been performed including initial LP which showed pleocytosis with lymphocyte predominance, see previous notes - Appreciate input from neurology, hematology, palliative care - EEG 09/04 -moderate encephalopathy. -MRI brain with and without contrast 09/07 negative -2nd neuro opinion (requested per family) with Dr. Bauer appreciated, family declines repeat LP as patient improving - C. Diff colitis, s/p treatment with vancomycin. ID/Dr. Dimayuga. - UTI - Microbiology grew ESBL ( 09/14/16) -d/w today; no need to treat at this time. -Diabetes mellitus type II, currently with good Accu-Chek reads- Coverage with SSI. Monitor Accu-Cheks. Monitor for hypoglycemia. -Hypothyroidism - TSH on 09/08 22, Free T3 low at 0.72, free T4 nml. increased levothyroxine 150 g ->175. repeat TSH in several weeks. - Hypertension - Cardiomyopathy - EF 3540% -Continue carvedilol low dose. will consider JOYCE inhibitor if blood pressure will tolerate and renal function remained stable. currently normotensive. S/p cardiology eval. -Acute kidney injury, resolved. -Chronic kidney disease stage III. creatinine stable around 1. -Severe malnutrition - dietary consult noted. Prealbumin is 7. Hopefully patient's by mouth intake will improve as she improves mental status. Consulted GI for eval for possible PEG tube. Started Marinol to stimulate appetite. Daughter Blanche wants to give the patient some time for improvement prior to considering PEG tube. Continue ensure, add multivitamin. - Abnormal uterine appearance - seen on abdominal and pelvis CT -pelvic ultrasound showing prominent endometrium, tumor markers negative, no history of vaginal bleeding -Heme on consult was requested per oncology service. Consider endometrial biopsy as outpatient. MRI abdomen canceled per family (did not want her sedated) . Anemia of chronic illness - stable, monitor transfuse prn Hb<7. decubitus ulcer- is being followed-up by wound care;previously d/w the warp doffer; plastic surgery reconsulted . Full code. Heparin SQ. Discharge Planning d/w case management today. has been conditionally accepted by [facility]. hopefully will be accepted by rehab this week. Conrad Clancy MD September 22, 2016 11:04
[2016-09-22 12:00] VITALS: BP 125/56; PULSE 76; RESP 20; TEMP 98.2; O2SAT 97
--- NOTE | 2016-09-22 13:17 | PD.VS.PN ---
Subjective Subjective/Hospital Course Pt alert and conversing appropriately Pt appears in good spirits NAD noted Pt w/o complaints Objective Vitals/I&O Date Time Temp Pulse Resp B/P Pulse Ox O2 Delivery O2 Flow Rate FiO2 09/22/16 08:00 98.6 73 20 137/63 97 09/22/16 04:00 98.5 85 20 113/56 97 09/22/16 00:00 99.6 72 16 114/70 96 09/21/16 21:00 Room Air 09/21/16 20:00 99.9 76 18 125/61 97 09/21/16 16:37 98.3 74 20 136/65 100 09/22/16 09/22/16 09/22/16 07:00 15:00 23:00 Intake Total 240 ml Balance 240 ml Physical Exam GENERAL: Alert in NAD SKIN: Warm and dry. R AKA surgical incision intact No R/D/S CARDIOVASCULAR: +S1,S2 RRR RESPIRATORY: BS CTA Bilat GASTROINTESTINAL: Abdomen soft, non-tender, nondistended. Laboratory Laboratory Tests Test 09/22/16 08:25 White Blood Count 5.7 Red Blood Count 3.35 Hemoglobin 8.1 Hematocrit 25.8 Mean Corpuscular Volume 77.0 Mean Corpuscular Hemoglobin 24.1 Mean Corpuscular Hemoglobin 31.3 Concent Red Cell Distribution Width 19.4 Platelet Count 235 Mean Platelet Volume 7.1 Neutrophils (%) (Auto) 58.7 Lymphocytes (%) (Auto) 28.2 Monocytes (%) (Auto) 8.0 Eosinophils (%) (Auto) 4.4 Basophils (%) (Auto) 0.7 Neutrophils # (Auto) 3.4 Lymphocytes # (Auto) 1.6 Monocytes # (Auto) 0.5 Eosinophils # (Auto) 0.3 Basophils # (Auto) 0.0 CBC Comment AUTO DIFF Differential Comment AUTO DIFF CONFIRMED Sodium Level 138 Potassium Level 3.6 Chloride Level 104 Carbon Dioxide Level 24.5 Anion Gap 10 Blood Urea Nitrogen 10 Creatinine 0.44 Estimat Glomerular Filtration 145 Rate Random Glucose 162 Calcium Level 7.7 Assessment and Plan Plan Plan Pt doing well post operatively after her R AKA Pt awaits SNF placement Oleg to be removed from R AKA incision site in 2-3 weeks Will continue to follow Nasrin CAMPOVERDE [facility] [phone] Discharge Planning From a Vascular standpoint pt OK to d/c to a SNF or Rehab facility Nasrin Carl September 22, 2016 13:16
[2016-09-22 16:00] VITALS: BP 140/64; PULSE 73; RESP 20; TEMP 97.6; O2SAT 100
[2016-09-22 20:00] VITALS: BP 131/60; PULSE 76; RESP 18; TEMP 98.7; O2SAT 96
[2016-09-22] MEDS: MELATONIN 5 MG TAB PO SCH (21:00)
[2016-09-22] MEDS: ATORVASTATIN 80 MG TAB PO SCH (23:15)
[2016-09-23] VITALS (7 sets, daily range): BP systolic 100–131; BP diastolic 54–68; PULSE 75–90; RESP 16–20; TEMP 98.1–99.5; O2SAT 96–97
[2016-09-23] MEDS: HYDROCORTISONE 1% CREAM 30 GM TOPICAL SCH ×3 (04:00→20:00)
[2016-09-23] MEDS: LEVOTHYROXINE SODIUM 150 MCG TAB PO SCH (06:14)
[2016-09-23] MEDS: LEVOTHYROXINE SODIUM 25 MCG TAB PO SCH (06:14)
[2016-09-23] MEDS: TRIAMCINOLONE ACETONIDE 0.1% CREAM 15 GM TOPICAL SCH ×3 (06:14→17:06)
[2016-09-23] MEDS: INSULIN ASPART SUPPLEMENTAL SCALE SQ SCH ×4 (06:20→21:53)
[2016-09-23] MEDS: THIAMINE HCL 100 MG TAB PO SCH (08:21)
[2016-09-23] MEDS: LACTOBACILLUS ACIDOPHILUS TAB PO SCH ×3 (08:21→17:05)
[2016-09-23] MEDS: CARVEDILOL 3.125 MG TAB PO SCH ×2 (08:21→21:51)
[2016-09-23] MEDS: LIOTHYRONINE SODIUM 5 MCG TAB PO SCH (08:22)
[2016-09-23] MEDS: MUPIROCIN 2% OINT 22 GM TUBE TOPICAL SCH ×2 (08:22→21:00)
[2016-09-23] MEDS: POTASSIUM CHLORIDE 20 MEQ CONTROLLED RELEASE TAB PO SCH (08:22)
[2016-09-23] MEDS: ASPIRIN EC 81 MG TABEC PO SCH (08:22)
[2016-09-23] MEDS: SODIUM CHLORIDE 0.9% FLUSH 5 ML FLUSH IV FLUSH SCH ×2 (08:22→21:00)
--- NOTE | 2016-09-23 10:12 | HHI.PR ---
Subjective Remarks resting comfortably with no distress. pain seems to be controlled. says that she's tired. no other complaints. Objective Vitals Vital Signs Date Time Temp Pulse Resp B/P Pulse Ox O2 Delivery O2 Flow Rate FiO2 09/23/16 09:30 Room Air 21 09/23/16 08:00 98.2 78 20 126/68 97 09/23/16 04:00 98.1 85 18 117/56 96 09/23/16 00:00 99.5 90 18 110/54 96 09/22/16 21:00 Room Air 09/22/16 20:00 98.7 76 18 131/60 96 09/22/16 16:00 97.6 73 20 140/64 100 09/22/16 12:00 98.2 76 20 125/56 97 I/O 09/22/16 09/22/16 09/22/16 09/23/16 09/23/16 09/23/16 07:00 15:00 23:00 07:00 15:00 23:00 Intake Total 240 ml 360 ml 420 ml 480 ml Output Total 0 ml Balance 240 ml 360 ml 420 ml 480 ml Intake Oral 240 ml 360 ml 420 ml 480 ml Output Urine Total 0 ml # Voids 1 1 # Bowel Movements 1 1 1 2 Result Diagram: 09/22/16 0825 09/22/16 0825 Imaging Last Impressions Brain MRI 09/07/16 0000 Signed Impressions: Service Date/Time: Wednesday, September 07, 2016 20:26 - CONCLUSION: 1. No acute findings. No significant change from August 25, 2016. No abnormal enhancement post contrast. Mild chronic white matter ischemic changes. Rolando Sharif MD Pelvis Ultrasound 09/05/16 0000 Signed Impressions: Service Date/Time: Monday, September 05, 2016 19:53 - CONCLUSION: Enlarged uterus with prominence of the endometrium. Alfredo Etienne MD Chest CT 09/05/16 0000 Signed Impressions: Service Date/Time: Monday, September 05, 2016 08:47 - CONCLUSION: 1. No worrisome masses. Please see above. 2. Dilatation of the aorta 4.3 cm. 3. Atherosclerosis. Addy Hillman MD Abdomen/Pelvis CT 09/05/16 0000 Signed Impressions: Service Date/Time: Monday, September 05, 2016 08:47 - CONCLUSION: 1. Fat containing umbilical hernias. 2. Extensive atherosclerosis. 3. Indeterminate low-density lesion in the liver, incompletely characterized without contrast. 4. Basilar air space disease and atelectasis with small pericardial effusion. 5. Abnormal appearance of the uterus as described above. A pelvic ultrasound will be helpful for further assessment on a nonemergent outpatient basis. Addy Hillman MD Lumbar Puncture Fluoroscopy 08/29/16 0000 Signed Impressions: Service Date/Time: Monday, August 29, 2016 16:39 - CONCLUSION: Uncomplicated fluoroscopically guided lumbar puncture with pressures as above. Alfredo Etienne MD Chest X-Ray 08/19/16 0000 Signed Impressions: Service Date/Time: Friday, August 19, 2016 18:46 - CONCLUSION: 1. Bibasilar streakiness consistent with atelectasis and/or infiltrates. 2. Cardiomegaly. 3. Poor inspiratory result. Shamar Banuelos MD Upper Extremity Ultrasound 07/28/16 0000 Signed Impressions: Service Date/Time: Thursday, July 28, 2016 14:34 - CONCLUSION: No DVT is identified within the right upper extremity. Alfredo Eng MD Head CT 07/19/16 0000 Signed Impressions: Service Date/Time: Tuesday, July 19, 2016 09:58 - CONCLUSION: No acute intracranial findings. João Otoole MD Foot X-Ray 07/16/16 0000 Signed Impressions: Service Date/Time: Saturday, July 16, 2016 17:34 - CONCLUSION: 1. Nonspecific soft tissue swelling. No acute bone destruction demonstrated. 2. Mild talonavicular and navicular/cuneiform degenerative changes. 3. Second through fifth hammertoe. 4. Moderate-sized heel spur. Alfredo Sneed MD Objective Remarks GENERAL: in no apparent distress. CARDIOVASCULAR: Regular rate and irregular rhythm without murmurs, gallops, or rubs. RESPIRATORY: Clear to auscultation. Breath sounds equal bilaterally. No wheezes , rales, or rhonchi. GASTROINTESTINAL: Abdomen soft, non-tender, nondistended. 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 NEURO: awake and alert Procedures 08/08/2016 PROCEDURE 1. Selective right lower extremity arteriogram. 2. Balloon angioplasty with a 4 mm x 2200 mm and then a 5 x 200 mm [employer] angioplasty balloon of the right superficial femoral and proximal popliteal artery. 07/31/2016 Excision and debridement of both legs, extensive necrotic wounds approximately 30 x 25 cm area on each side, total 1000 to 1100 cm square, down to the subcutaneous tissue and tendon on the left side. 09/03/2016 Right [id number] amputation Medications and IVs Current Medications Sodium Chloride (NS 1000 ml Inj) 1,000 ml @ 84 mls/hr [id number] IV Last administered on 08/05/16 16:12; Start 07/15/16 at 19:42; Stop 08/18/16 at 15:34 ; Status DC IV Flush (NS Flush) 2 ml UNSCH PRN IV FLUSH FLUSH AFTER USING IV ACCESS Last administered on 08/12/16 05:30; Start 07/15/16 at 19:45 IV Flush (NS Flush) 2 ml BID IV FLUSH Last administered on 09/23/16 08:22; Start 07/15/16 at 21:00 Fentanyl Citrate (fentaNYL INJ) 50 mcg Q3H PRN IV PUSH Pain scale 7-10 &/or sedation Last administered on 07/15/16 21:44; Start 07/15/16 at 19:45; Stop at 11:51; Status DC Famotidine (Pepcid Inj) 20 mg Q12HR IV PUSH Last administered on 07/15/16 20: 19; Start 07/15/16 at 21:00; Stop 07/15/16 at 21:24; Status DC Ondansetron HCl (Zofran Inj) 4 mg Q6H PRN IV NAUSEA OR VOMITING Last administered on 07/31/16 13:23; Start 07/15/16 at 19:45; Stop 08/12/16 at 20:17 ; Status DC Metoclopramide HCl (Reglan Inj) 5 mg Q6H PRN IV NAUSEA OR VOMITING Last administered on 09/06/16 21:32; Start 07/15/16 at 19:45 Docusate Sodium (Colace) 100 mg BID PO Last administered on 08/07/16 21:00; Start 07/15/16 at 21:00; Stop 08/08/16 at 22:08; Status DC Albuterol/ Ipratropium (Duoneb Neb) 1 ampule Q2HR NEB PRN INH WHEEZING; Start 07/15/16 at 19:45 Heparin Sodium (Porcine) (Heparin Inj) 5,000 units Q8HR SQ Last administered on 08/28/16 12:46; Start 07/15/16 at 22:00; Stop 09/03/16 at 23:47; Status DC Miscellaneous Information 1 [id number] Last administered on 07/15/16 19:45; Start 07/15/16 at 19:45; Stop 09/04/16 at 03:06; Status DC Chlorhexidine Gluconate (Chlorhexidine 2% Cloth) Taper DAILY@04 TOP Last administered on 07/17/16 03:11; Start 07/16/16 at 04:00; Stop 09/04/16 at 03:06 ; Status DC Chlorhexidine Gluconate (Chlorhexidine 2% Cloth) 3 pack UNSCH PRN TOP HYGIENIC CARE; Start 07/15/16 at 19:45; Stop 09/04/16 at 03:06; Status DC Acetaminophen (Ofirmev Inj) 1,000 mg Q6H PRN IV PAIN SCALE 1 TO 6; Start at 20:00; Stop 07/18/16 at 11:51; Status DC Ketorolac Tromethamine (Toradol Inj) 30 mg Q6H PRN IM PAIN SCALE 1 TO 7; Start 07/15/16 at 20:00; Stop 07/15/16 at 20:10; Status DC Ketorolac Tromethamine (Toradol Inj) 30 mg Q6H PRN IV PUSH PAIN 1-6 Last administered on 07/15/16 20:34; Start 07/15/16 at 20:15; Stop 07/18/16 at 11:51 ; Status DC Carvedilol (Coreg) 25 mg BID PO Last administered on 08/17/16 10:24; Start at 21:00; Stop 08/17/16 at 16:06; Status DC Fluconazole (Diflucan) 75 mg DAILY@17 PO Last administered on 07/16/16 17:03; Start 07/16/16 at 17:00; Stop 07/17/16 at 08:09; Status DC Isosorbide Dinitrate (Isordil) 5 mg Q8HR PO Last administered on 09/02/16 05: 38; Start 07/15/16 at 22:00; Stop 09/03/16 at 23:47; Status DC Lactobacillus Acidophilus (Lactinex) 1 tab TID PO Last administered on 08:32; Start 07/16/16 at 09:00; Stop 08/25/16 at 08:59; Status DC Levofloxacin (Levaquin) 250 mg Q48H PO Last administered on 07/21/16 21:05; Start 07/15/16 at 22:00; Stop 07/23/16 at 16:37; Status DC Levothyroxine Sodium (Synthroid) 150 mcg DAILY@06 PO Last administered on 05:47; Start 07/16/16 at 06:00; Stop 09/09/16 at 17:57; Status DC Liothyronine Sodium (Cytomel) 5 mcg DAILY PO Last administered on 09/23/16 08: 22; Start 07/16/16 at 09:00 Non-Formulary Medication 325 mg DAILY PO ; Start 07/16/16 at 09:00; Status UNV Miscellaneous (Pill Splitter) 1 ea UNSCH PRN OTHER SEE LABEL COMMENTS; Start at 21:30 Famotidine (Pepcid Inj) 10 mg Q12HR IV PUSH Last administered on 07/17/16 07: 29; Start 07/16/16 at 09:00; Stop 07/18/16 at 10:59; Status DC Aspirin (Ecotrin Ec) 325 mg DAILY PO Last administered on 08/25/16 08:30; Start 07/16/16 at 09:00; Stop 08/25/16 at 16:10; Status DC Etomidate (Amidate Inj) 20 mg STK-MED ONCE .ROUTE ; Start 07/16/16 at 17:07; Stop 07/16/16 at 17:08; Status DC Famotidine (Pepcid Inj) 20 mg Q12HR IV PUSH Last administered on 08/12/16 09: 05; Start 07/18/16 at 21:00; Stop 08/12/16 at 20:17; Status DC Hydromorphone HCl (Dilaudid Pf Inj) 0.5 mg ONCE ONCE IV PUSH Last administered on 08/04/16 18:00; Start 07/18/16 at 11:45; Stop 07/18/16 at 11:46 ; Status DC Hydromorphone HCl (Dilaudid Pf Inj) 0.5 mg Q4H PRN IV PUSH breakthrough pain / dresing lori Last administered on 08/31/16 05:32; Start 07/18/16 at 11:45; Stop 09/03/16 at 23:47; Status DC Acetaminophen/ Hydrocodone Bitart (Charlotte 5-325 Mg) 1 tab Q6H PRN PO pain 2-10 Last administered on 08/12/16 09:04; Start 07/18/16 at 11:45; Stop 08/12/16 at 20:17; Status DC Diphenhydramine HCl 50 mg 50 mg STK-MED ONCE .ROUTE ; Start 07/19/16 at 11:20; Stop 07/19/16 at 11:21; Status DC Levetriacetam/ Sodium Chloride (Keppra Inj/NS Inj) 105 ml @ 420 mls/hr Q12HR IV Last administered on 07/20/16 08:19; Start 07/19/16 at 13:00; Stop at 16:25; Status DC Haloperidol Lactate (Haldol Inj) 2 mg Q6H PRN IM aggittation Last administered on 07/30/16 01:29; Start 07/19/16 at 12:30; Stop 09/03/16 at 23:47; Status DC Lorazepam 1 mg 1 mg Q6H PRN IV PUSH seizures/agiatation Last administered on 06:09; Start 07/19/16 at 12:30; Stop 09/03/16 at 23:47; Status DC Valproate Sodium 500 mg/Sodium Chloride 105 ml @ 105 mls/hr Q8H IV Last administered on 07/25/16 09:26; Start 07/20/16 at 18:00; Stop 07/25/16 at 09:54; Status DC Cefepime HCl/ Sodium Chloride (Maxipime Inj/NS Inj) 100 ml @ 200 mls/hr Q12H IV Last administered on 07/27/16 02:43; Start 07/21/16 at 15:00; Stop 07/27/16 at 09:00; Status DC Dextrose (D50w (Vial) Inj) 25 ml UNSCH PRN IV PUSH HYPOGLYCEMIA-SEE COMMENTS; Start 07/23/16 at 11:00 Glucagon (Glucagon Inj) 1 mg UNSCH PRN OTHER HYPOGLYCEMIA-SEE COMMENTS; Start 07/23/16 at 11:00 Insulin Aspart (NovoLOG SUPPLEMENTAL SCALE) 1 ACHS SLIDING SCALE SQ Last administered on 09/23/16 06:20; Start 07/23/16 at 11:00 Potassium Chloride (KCl) 40 meq ONCE ONCE PO Last administered on 07/24/16 13: 00; Start 07/24/16 at 13:00; Stop 07/24/16 at 13:01; Status DC Valproic Acid (Depakene) 500 mg Q8HR PO Last administered on 07/26/16 14:52; Start 07/25/16 at 15:00; Stop 07/26/16 at 17:39; Status DC Potassium Chloride (KCl) 30 meq ONCE ONCE PO Last administered on 07/26/16 19: 30; Start 07/26/16 at 16:30; Stop 07/26/16 at 16:36; Status DC Potassium Chloride (KCl) 30 meq ONCE ONCE PO Last administered on 07/26/16 22: 16; Start 07/26/16 at 20:00; Stop 07/26/16 at 20:01; Status DC Valproic Acid (Depakene) 250 mg Q12HR PO Last administered on 09/04/16 09:07; Start 07/27/16 at 09:00; Stop 09/04/16 at 16:16; Status DC Hydromorphone HCl (Dilaudid Pf Inj) 0.5 mg ONCE ONCE IV PUSH Last administered on 07/27/16 10:42; Start 07/27/16 at 10:45; Stop 07/27/16 at 10:46; Status DC Valsartan (Diovan) 80 mg HS PO Last administered on 08/19/16 21:58; Start 07/27 at 21:00; Stop 08/20/16 at 18:58; Status DC Enalaprilat (Vasotec Inj) 1.25 mg Q8H PRN IV PUSH SBP >180 OR DBP >100; Start 07/28/16 at 16:00 Fluconazole 100 mg 100 mg DAILY PO Last administered on 08/05/16 11:34; Start 07/30/16 at 09:45; Stop 08/05/16 at 16:53; Status DC Ceftriaxone Sodium/Sodium Chloride (Rocephin Inj/NS Inj) 100 ml @ 200 mls/hr Q24H IV Last administered on 08/01/16 09:45; Start 07/30/16 at 10:00; Stop 03/10 at 11:59; Status DC Potassium Chloride (KCl) 30 meq ONCE ONCE PO Last administered on 07/30/16 12: 12; Start 07/30/16 at 09:45; Stop 07/30/16 at 09:53; Status DC Potassium Chloride (KCl) 30 meq ONCE ONCE PO Last administered on 07/30/16 14: 00; Start 07/30/16 at 14:00; Stop 07/30/16 at 14:01; Status DC Insulin Detemir (Levemir Inj) 5 units HS SQ Last administered on 09/03/16 20: 17; Start 07/30/16 at 21:00; Status Hold Melatonin (Melatonin) 5 mg HS PO Last administered on 09/15/16 21:03; Start at 21:00 Bupivacaine HCl (Marcaine Pf 0.5% Inj) 30 ml STK-MED ONCE .ROUTE ; Start at 10:12; Stop 07/31/16 at 10:13; Status DC Bupivacaine HCl/ Epinephrine Bitart (Sensorcaine-Epi 0.5% 50 ml Inj) 50 ml STK- MED ONCE .ROUTE ; Start 07/31/16 at 10:12; Stop 07/31/16 at 10:13; Status DC Bacitracin (Baciguent Oint) 15 applic STK-MED ONCE .ROUTE ; Start 07/31/16 at 10: 12; Stop 07/31/16 at 10:13; Status DC Dexamethasone Sodium Phosphate (Decadron Inj) 4 mg STK-MED ONCE .ROUTE Last administered on 07/31/16 10:24; Start 07/31/16 at 10:22; Stop 07/31/16 at 10:23; Status DC Famotidine (Pepcid Inj) 20 mg STK-MED ONCE IV PUSH Last administered on 10:23; Start 07/31/16 at 10:23; Stop 07/31/16 at 10:27; Status DC Fentanyl Citrate 500 mcg 500 mcg STK-MED ONCE .ROUTE ; Start 07/31/16 at 12:13; Stop 07/31/16 at 12:14; Status DC Gentamicin Sulfate/Sodium Chloride (Gentamicin Inj/ NS Irr Btl) 1,005 ml @ 0 mls/hr UNSCH PRN IRRIGATION DRESSING CHANGES; Start 07/31/16 at 13:30 Miscellaneous Information ALL NURSING DEPARTME... UNSCH PRN XX SEE LABEL COMMENTS; Start 07/31/16 at 13:30; Stop 08/01/16 at 13:29; Status DC Propofol (Diprivan 200 Mg/20 ml Inj) 200 mg STK-MED ONCE IV ; Start 07/31/16 at 12:42; Stop 08/04/16 at 12:43; Status DC Ephedrine Sulfate (ePHEDrine/NS 25 MG/5 ML SYR) 25 mg STK-MED ONCE IV ; Start at 12:42; Stop 08/04/16 at 12:43; Status DC Phenylephrine HCl (Neosynephrine/ NS 1000 Mcg/10ml Syr) 1,000 mcg STK-MED ONCE IV ; Start 07/31/16 at 12:42; Stop 08/04/16 at 12:43; Status DC Ondansetron HCl (Zofran Inj) 4 mg STK-MED ONCE IV PUSH ; Start 07/31/16 at 12:42 ; Stop 08/04/16 at 12:43; Status DC Prednisone (Deltasone) 50 mg Q6H PO Last administered on 08/08/16t 04:00; Start 08/07/16 at 16:00; Stop 08/08/16 at 04:01; Status DC Diphenhydramine HCl (Benadryl Inj) 50 mg ONCE ONCE IV ; Start 08/07/16 at 16:00 ; Stop 08/07/16 at 16:01; Status DC Midazolam HCl (Versed Inj) 2 mg STK-MED ONCE .ROUTE ; Start 08/08/16 at 08:24; Stop 08/08/16 at 08:25; Status DC Diphenhydramine HCl (Benadryl Inj) 50 mg STK-MED ONCE .ROUTE ; Start 08/08/16 at 08:24; Stop 08/08/16 at 08:25; Status DC Hydrocortisone Sodium Succinate (SoluCORTEF INJ) 100 mg STK-MED ONCE .ROUTE Last administered on 08/08/16 08:52; Start 08/08/16 at 08:50; Stop 08/08/16 at 08:51; Status DC Ketamine HCl (Ketalar Inj) 500 mg STK-MED ONCE .ROUTE ; Start 08/08/16 at 08:59 ; Stop 08/08/16 at 09:00; Status DC Iohexol 100 ml 100 ml STK-MED ONCE OTHER Last administered on 08/08/16 08:50; Start 08/08/16 at 08:50; Stop 08/08/16 at 09:45; Status DC Nitroglycerin/ Dextrose (Nitroglycerin-Dextrose Inj) 250 ml @ As Directed STK- MED ONCE .ROUTE ; Start 08/08/16 at 09:57; Stop 08/08/16 at 09:58; Status DC Iohexol (Omnipaque 300 Inj) 50 ml STK-MED ONCE OTHER Last administered on 10:10; Start 08/08/16 at 10:10; Stop 08/08/16 at 10:31; Status DC Midazolam HCl (Versed Inj) 2 mg STK-MED ONCE .ROUTE ; Start 08/08/16 at 11:01; Stop 08/08/16 at 11:02; Status DC Fentanyl Citrate (fentaNYL INJ) 250 mcg STK-MED ONCE .ROUTE ; Start 08/08/16 at 11:02; Stop 08/08/16 at 11:03; Status DC Fentanyl Citrate (fentaNYL INJ) 100 mcg STK-MED ONCE .ROUTE ; Start 08/08/16 at 11:02; Stop 08/08/16 at 11:03; Status DC Morphine Sulfate (Morphine Inj) 4 mg STK-MED ONCE .ROUTE ; Start 08/08/16 at 11: 03; Stop 08/08/16 at 11:04; Status DC Morphine Sulfate (*morphine INJ PERIprocedure ONLY) 8 mg STK-MED ONCE .ROUTE Last administered on 08/08/16 11:17; Start 08/08/16 at 11:17; Stop 08/08/16 at 11:18; Status DC Miscellaneous Information ALL NURSING DEPARTME... UNSCH PRN XX SEE LABEL COMMENTS; Start 08/08/16 at 12:30; Stop 08/09/16 at 12:29; Status DC Lorazepam (Ativan) 0.25 mg Q12H PRN PO ANXIETY; Start 08/09/16 at 14:00; Stop 08/11/16 at 14:33; Status DC Propofol (Diprivan 200 Mg/20 ml Inj) 800 mg STK-MED ONCE IV ; Start 08/08/16 at 12:00; Stop 08/11/16 at 12:57; Status DC Heparin Sodium (Porcine) (Heparin Inj) 5,000 units STK-MED ONCE OTHER ; Start at 12:00; Stop 08/11/16 at 13:02; Status DC Potassium Chloride (KCl) 10 meq Q8HR PO Last administered on 08/16/16 06:08; Start 08/11/16 at 14:00; Stop 08/16/16 at 13:59; Status DC Clonazepam (KlonoPIN) 0.5 mg Q8HR PO Last administered on 08/12/16 05:29; Start 08/11/16 at 14:45; Stop 08/12/16 at 12:49; Status DC Diphenhydramine HCl (Benadryl) 25 mg ONCE ONCE PO Last administered on 17:50; Start 08/11/16 at 14:45; Stop 08/11/16 at 15:05; Status DC Clonazepam (KlonoPIN) 0.5 mg Q8H PRN PO ANXIETY Last administered on 08/30/16 22:50; Start 08/12/16 at 12:45; Stop 09/03/16 at 23:47; Status DC Gabapentin (Neurontin) 200 mg TID PO Last administered on 08/12/16 14:59; Start 08/12/16 at 13:00; Stop 08/14/16 at 16:07; Status DC Methadone HCl (Dolophine) 2.5 mg Q12HR PO Last administered on 09/01/16 21:49 ; Start 08/12/16 at 21:00; Stop 09/03/16 at 23:47; Status DC Doxycycline Hyclate (Vibratab) 100 mg Q12HR PO Last administered on 08/16/16 22:41; Start 08/12/16 at 22:45; Stop 08/17/16 at 08:21; Status DC Quetiapine Fumarate (SEROquel) 12.5 mg ONCE ONCE PO Last administered on 10:45; Start 08/13/16 at 10:45; Stop 08/13/16 at 10:50; Status DC Quetiapine Fumarate (SEROquel) 12.5 mg BID PO Last administered on 08/13/16 20 :32; Start 08/13/16 at 21:00; Stop 08/14/16 at 12:41; Status DC Gabapentin (Neurontin) 300 mg ONCE ONCE PO Last administered on 08/13/16 11: 00; Start 08/13/16 at 11:00; Stop 08/13/16 at 11:09; Status DC Acetaminophen (Tylenol) 500 mg Q6H PRN PO FEVER >100.4 Last administered on 17:12; Start 08/13/16 at 17:15 Quetiapine Fumarate (SEROquel) 6.25 mg HS PO Last administered on 09/01/16 21: 00; Start 08/14/16 at 21:00; Stop 09/03/16 at 23:47; Status DC Quetiapine Fumarate (SEROquel) 6.25 mg DAILY PRN PO agitated delirium Last administered on 09/01/16 12:37; Start 08/14/16 at 12:45; Stop 09/03/16 at 23:47 ; Status DC Gabapentin (Neurontin) 300 mg TID PO Last administered on 08/15/16 13:25; Start 08/15/16 at 09:00; Stop 08/15/16 at 14:20; Status DC Gabapentin (Neurontin) 400 mg ONCE ONCE PO ; Start 08/14/16 at 16:15; Stop at 16:15; Status DC Gabapentin (Neurontin) 200 mg ONCE ONCE PO Last administered on 08/14/16 17: 00; Start 08/14/16 at 16:30; Stop 08/14/16 at 16:33; Status DC Gabapentin (Neurontin) 400 mg TID PO Last administered on 08/18/16 12:34; Start 08/15/16 at 18:00; Stop 08/18/16 at 13:52; Status DC Mupirocin (Bactroban 2% Oint) 1 applic Q12HR TOPICAL Last administered on 08:22; Start 08/15/16 at 15:00 Hydrocortisone 1 applic 1 applic Q8H TOPICAL Last administered on 09/23/16 08: 22; Start 08/15/16 at 20:00 Levofloxacin/ Dextrose (Levaquin 750 Mg Premix Inj) 150 ml @ 100 mls/hr Q24H IV Last administered on 08/16/16 09:41; Start 08/16/16 at 08:00; Stop at 08:21; Status DC Lactobacillus Acidophilus 1 tab 1 tab TID PO Last administered on 09/23/16 08: 21; Start 08/16/16 at 09:00 Vancomycin HCl 1750 mg/Sodium Chloride 517.5 ml @ 258.75 mls/ hr ONCE ONCE IV Last administered on 08/17/16 10:21; Start 08/17/16 at 10:00; Stop 08/17/16 at 11:59; Status DC Pharmacy Profile Note 0 ml @ 0 mls/hr UNSCH OTHER ; Start 08/17/16 at 08:15; Stop 08/18/16 at 16:18; Status DC Piperacillin Sod/ Tazobactam Sod 50 ml @ 100 mls/hr Q6H IV Last administered on 08/18/16 09:15; Start 08/17/16 at 09:00; Stop 08/18/16 at 13:02; Status DC Sodium Chloride 1,000 ml @ 999 mls/hr BOLUS ONCE IV Last administered on 08/17 08:30; Start 08/17/16 at 08:30; Stop 08/17/16 at 09:30; Status DC Sodium Chloride 1,000 ml @ 200 mls/hr Q5H IV ; Start 08/17/16 at 09:00; Stop at 18:59; Status DC Vancomycin HCl/ Sodium Chloride (Vancomycin Inj/ NS 250 ml Inj) 250 ml @ 250 mls/hr Q12H IV Last administered on 08/18/16 12:33; Start 08/17/16 at 22:00; Stop 08/18/16 at 16:31; Status DC Miscellaneous Information SPECIFIC LAB TO BE [facility]... ONCE ONCE XX ; Start at 21:45; Stop 08/18/16 at 21:45; Status DC Olanzapine 10 mg 10 mg Q12H PRN IM acute agitation; Start 08/17/16 at 16:15; Stop 08/19/16 at 16:14; Status DC Levofloxacin/ Dextrose 150 ml @ 100 mls/hr Q24H IV ; Start 08/18/16 at 09:00; Stop 08/18/16 at 09:00; Status DC Levofloxacin/ Dextrose (Levaquin 750 Mg Premix Inj) 150 ml @ 100 mls/hr Q48H IV Last administered on 08/18/16 09:54; Start 08/18/16 at 09:00; Stop at 13:02; Status DC Miscellaneous Medication (ASP Crit: Doc ESBL, MDR A baumannii or P aer) 1 UNSCH X1 PRN XX PHARMACY DOCUMENTATION; Start 08/18/16 at 13:00; Stop 08/19/16 at 12: 59; Status DC Miscellaneous Medication 1 1 UNSCH X1 PRN XX PHARMACY DOCUMENTATION; Start at 13:00; Stop 08/19/16 at 12:59; Status DC Meropenem/Sodium Chloride (Merrem Inj/NS Inj) 100 ml @ 200 mls/hr Q8H IV Last administered on 08/21/16 06:14; Start 08/18/16 at 14:00; Stop 08/21/16 at 07:36 ; Status DC Gabapentin 600 mg 600 mg TID PO Last administered on 09/01/16 18:44; Start at 18:00; Stop 09/02/16 at 21:42; Status DC Sodium Chloride 1,000 ml @ 150 mls/hr Q6H40M IV Last administered on 17:44; Start 08/18/16 at 15:30; Stop 08/20/16 at 17:43; Status DC Sodium Chloride (NS 250 ml Inj) 250 ml @ 15 mls/hr ONCE ONCE IV Last administered on 08/19/16 06:34; Start 08/18/16 at 16:45; Stop 08/19/16 at 09:24 ; Status DC Acetaminophen (Tylenol) 650 mg Q4H PRN PO SEE LABEL COMMENTS; Start 08/18/16 at 16:45; Stop 08/18/16 at 20:46; Status DC Diphenhydramine HCl 25 mg 25 mg Q4H PRN PO SEE LABEL COMMENTS; Start 08/18/16 at 16:45; Stop 08/18/16 at 20:46; Status DC Linezolid (Zyvox 600 Mg Premix) 300 ml @ 300 mls/hr Q12H IV Last administered on 08/20/16 22:54; Start 08/19/16 at 08:00; Stop 08/21/16 at 07:36; Status DC Albumin Human (Albumin 25% Inj) 12.5 gm Q8H IV Last administered on 08/22/16 11:31; Start 08/20/16 at 20:00; Stop 08/22/16 at 13:51; Status DC Bumetanide (Bumex Inj) 1 mg Q8H IV PUSH Last administered on 08/22/16 12:44; Start 08/20/16 at 20:00; Stop 08/22/16 at 13:51; Status DC Metronidazole (Flagyl) 500 mg Q6HR PO ; Start 08/21/16 at 09:00; Stop 08/21/16 at 09:00; Status DC Vancomycin HCl (VANCOMYCIN for oral use only) 500 mg QID PO Last administered on 08/25/16 12:22; Start 08/21/16 at 09:00; Stop 08/25/16 at 13:53; Status DC Chlorothiazide Sodium (Diuril Inj) 250 mg ONCE ONCE IV Last administered on 21:03; Start 08/21/16 at 20:00; Stop 08/21/16 at 20:01; Status DC Potassium Phos/ Sodium Phos (K-Phos Neutral) 250 mg BID PO Last administered on 08/22/16 07:41; Start 08/21/16 at 21:00; Stop 08/22/16 at 20:59; Status DC Bumetanide (Bumetanide) 1 mg DAILY PO Last administered on 09/01/16 08:18; Start 08/23/16 at 09:00; Stop 09/03/16 at 23:47; Status DC Potassium Chloride (KCl) 20 meq ONCE ONCE PO Last administered on 08/22/16 14 :23; Start 08/22/16 at 14:00; Stop 08/22/16 at 14:01; Status DC Valsartan (Diovan) 40 mg DAILY PO Last administered on 09/01/16 08:18; Start 08/23/16 at 09:00; Stop 09/03/16 at 23:47; Status DC Vancomycin HCl (VANCOMYCIN for oral use only) 125 mg QID PO Last administered on 09/09/16 12:29; Start 08/25/16 at 18:00; Stop 09/09/16 at 17:59; Status DC Lorazepam (Ativan Inj) 0.5 mg UNSCH X1 IV Last administered on 08/25/16 18:32 ; Start 08/25/16 at 17:00; Stop 08/25/16 at 23:00; Status DC Diphenhydramine HCl (Benadryl) 25 mg ONCE ONCE PO Last administered on 22:15; Start 08/26/16 at 22:00; Stop 08/26/16 at 22:01; Status DC Lorazepam (Ativan Inj) 1 mg ONCE ONCE IV PUSH Last administered on 08/29/16 17 :10; Start 08/29/16 at 17:00; Stop 08/29/16 at 17:01; Status DC Hydromorphone HCl (Dilaudid Pf Inj) 0.5 mg ONCE ONCE IV PUSH Last administered on 08/29/16 17:11; Start 08/29/16 at 17:00; Stop 08/29/16 at 17:01; Status DC Olanzapine 5 mg 5 mg HS PO Last administered on 09/01/16 21:49; Start 08/30/16 at 21:15; Stop 09/03/16 at 23:47; Status DC Potassium Chloride/Lactated Ringer's (KCl Inj/Lr 1000 ml Inj) 1,010 ml @ 42 mls /hr Q24H IV Last administered on 09/10/16 07:14; Start 09/02/16 at 00:00; Stop 09/12/16 at 20:35; Status DC Vancomycin HCl (Vancomycin Inj) 1,000 mg STK-MED ONCE OTHER Last administered on 09/02/16 16:51; Start 09/02/16 at 16:51; Stop 09/02/16 at 16:59; Status DC Morphine Sulfate (Morphine Inj) 2 mg Q4HR PRN IM Pain 1-10 Last administered on 09/11/16 11:27; Start 09/03/16 at 16:15 Haloperidol Lactate (Haldol Inj) 1 mg Q6H PRN IM Psychosis, delirium Last administered on 09/04/16 09:17; Start 09/03/16 at 16:15; Status Hold Heparin Sodium (Porcine) (Heparin Inj) 5,000 units Q12HR SQ Last administered on 09/09/16 21:39; Start 09/04/16 at 09:00; Stop 09/10/16 at 07:38; Status DC Dronabinol (Marinol) 2.5 mg BID@11,16 PO Last administered on 09/10/16 13:54; Start 09/05/16 at 11:00 Dronabinol (Marinol) 2.5 mg ONCE ONCE PO Last administered on 09/04/16 21:51 ; Start 09/04/16 at 17:15; Stop 09/04/16 at 17:17; Status DC Aspirin (Ecotrin Ec) 81 mg DAILY PO Last administered on 09/23/16 08:22; Start 09/05/16 at 09:00 Carvedilol (Coreg) 3.125 mg Q12HR PO Last administered on 09/23/16 08:21; Start 09/05/16 at 09:00 Lorazepam (Ativan Inj) 0.5 mg FILTER WASHER AND PRESSER ONCE IV PUSH ; Start 09/06/16 at 18:15; Stop 09/06/16 at 18:30; Status DC Atorvastatin Calcium (Lipitor) 80 mg HS PO Last administered on 09/22/16 23:15 ; Start 09/06/16 at 21:00 Lorazepam (Ativan Inj) 0.5 mg FILTER WASHER [employer] PRESSER ONCE IV PUSH Last administered on 20:08; Start 09/07/16 at 20:15; Stop 09/07/16 at 20:16; Status DC Gadodiamide (Omniscan Pf Inj) 16 ml STK-MED ONCE IV Last administered on 20:45; Start 09/07/16 at 20:45; Stop 09/07/16 at 20:46; Status DC Lorazepam 0.5 mg 0.5 mg ONCE ONCE IV PUSH ; Start 09/08/16 at 13:00; Stop 09/08 at 13:01; Status DC Thiamine HCl/ Sodium Chloride (Thiamine Inj/NS Inj) 101 ml @ 101 mls/hr DAILY IV Last administered on 09/17/16 09:01; Start 09/09/16 at 10:00; Stop at 13:29; Status DC Propofol (Diprivan 200 Mg/20 ml Inj) 200 mg STK-MED ONCE IV ; Start 09/02/16 at 12:00; Stop 09/09/16 at 13:30; Status DC Ephedrine Sulfate (ePHEDrine/NS 25 MG/5 ML SYR) 25 mg STK-MED ONCE IV ; Start at 12:00; Stop 09/09/16 at 13:30; Status DC Phenylephrine HCl (Neosynephrine/ NS 1000 Mcg/10ml Syr) 1,000 mcg STK-MED ONCE IV ; Start 09/02/16 at 12:00; Stop 09/09/16 at 13:30; Status DC Ondansetron HCl 4 mg 4 mg STK-MED ONCE IV PUSH ; Start 09/02/16 at 12:00; Stop 09/09/16 at 13:30; Status DC Sodium Chloride 250 ml @ As Directed STK-MED ONCE IV ; Start 09/02/16 at 12:00 ; Stop 09/09/16 at 13:30; Status DC Parenteral Electrolytes (Normosol R Inj) 1,000 ml @ As Directed STK-MED ONCE IV ; Start 09/02/16 at 12:00; Stop 09/09/16 at 13:30; Status DC Levothyroxine Sodium (Synthroid) 175 mcg DAILY@06 PO ; Start 09/10/16 at 06:00; Status UNV Levothyroxine Sodium (Synthroid) 150 mcg DAILY@06 PO Last administered on 06:14; Start 09/10/16 at 06:00 Levothyroxine Sodium (Synthroid) 25 mcg DAILY@06 PO Last administered on 06:14; Start 09/10/16 at 06:00 Fentanyl Citrate (fentaNYL INJ) 100 mcg STK-MED ONCE IV ; Start 09/02/16 at 12: 00; Stop 09/10/16 at 12:44; Status DC Diphenhydramine HCl (Benadryl 2% Cream) 1 applic TID PRN TOPICAL ITCHING Last administered on 09/20/16 21:52; Start 09/14/16 at 14:00 Thiamine HCl (Vitamin B1) 100 mg DAILY PO Last administered on 09/23/16 08:21; Start 09/19/16 at 09:00 Potassium Chloride (KCl) 40 meq ONCE ONCE PO Last administered on 09/20/16 11 :53; Start 09/20/16 at 11:45; Stop 09/20/16 at 11:46; Status DC Potassium Chloride (KCl) 20 meq ONCE ONCE PO Last administered on 09/20/16 16 :14; Start 09/20/16 at 16:00; Stop 09/20/16 at 16:01; Status DC Triamcinolone Acetonide (Aristocort 0.1% Cream) 1 applic Q6HR TOPICAL Last administered on 09/23/16 08:22; Start 09/21/16 at 12:00 Potassium Chloride (KCl) 40 meq ONCE ONCE PO Last administered on 09/21/16 15 :54; Start 09/21/16 at 11:45; Stop 09/21/16 at 11:46; Status DC Potassium Chloride (KCl) 20 meq DAILY PO Last administered on 09/23/16 08:22; Start 09/22/16 at 09:00 A/P Assessment and Plan A/P -s/p right AKA for nonhealing ischemic wound. Stump well healing. cleared by vascular surgery for discharge. - Peripheral vascular disease with nonhealing left lower extremity wound with necrotic tendon, several necrotic toes-status post consultation with 3 vascular surgeons, plastic surgery, heating and refrigeration inspector. family declines amputation. topical hyperbaric oxygen therapy (numo bag) purchased by family. this therapy can be given in hospital or at home, but is not FDA approved. - Severe neuropathic pain - continue Neurontin. -Severe acute metabolic encephalopathy- continues to improve -exhaustive workup has been performed including initial LP which showed pleocytosis with lymphocyte predominance, see previous notes - Appreciate input from neurology, hematology, palliative care - EEG 09/04 -moderate encephalopathy. -MRI brain with and without contrast 09/07 negative -2nd neuro opinion (requested per family) with Dr. Bauer appreciated, family declines repeat LP as patient improving - C. Diff colitis, s/p treatment with vancomycin. ID/Dr. Quispe. - UTI - Microbiology grew ESBL ( 09/14/16) -d/w today; no need to treat at this time. -Diabetes mellitus type II, currently with good Accu-Chek reads- Coverage with SSI. Monitor Accu-Cheks. Monitor for hypoglycemia. -Hypothyroidism - TSH on 09/08 22, Free T3 low at 0.72, free T4 nml. increased levothyroxine 150 g ->175. repeat TSH in several weeks. - Hypertension - Cardiomyopathy - EF 3540% -Continue carvedilol low dose. will consider JOYCE inhibitor if blood pressure will tolerate and renal function remained stable. currently normotensive. S/p cardiology eval. will defer to pcp to add JOYCE-I as outpatient if BP allows. -Acute kidney injury, resolved. -Chronic kidney disease stage III. creatinine stable around 1. -Severe malnutrition - dietary consult noted. Prealbumin is 7. Hopefully patient's by mouth intake will improve as she improves mental status. Consulted GI for eval for possible PEG tube. Started Marinol to stimulate appetite. Daughter Blanche wants to give the patient some time for improvement prior to considering PEG tube. Continue ensure, add multivitamin. - Abnormal uterine appearance - seen on abdominal and pelvis CT -pelvic ultrasound showing prominent endometrium, tumor markers negative, no history of vaginal bleeding -Heme on consult was requested per oncology service. Consider endometrial biopsy as outpatient. MRI abdomen canceled per family (did not want her sedated) . Anemia of chronic illness - stable, monitor transfuse prn Hb<7. decubitus ulcer- is being followed-up by wound care;previously d/w the armature varnisher. Full code. Heparin SQ. Discharge Planning case management notes reviewed. has been conditionally accepted by [facility]. hopefully will be discharged to rehab this week. Conrad Clancy MD September 23, 2016 10:12
--- NOTE | 2016-09-23 10:43 | HHI.DS ---
Discharge Summary Admission Date Jul 15, 2016 at 15:32 Discharge Date: September 23, 2016 Admitting Diagnosis Resp Failure (1) Ischemic ulcer of right ankle ICD Code: L97.319 Diagnosis: Principal (2) Neuropathic pain ICD Code: M79.2 Diagnosis: Secondary (3) Delirium ICD Code: R41.0 Diagnosis: Secondary (4) Chronic kidney disease (CKD) ICD Code: N18.9 Diagnosis: Secondary (5) Peripheral vascular occlusive disease ICD Code: I73.9 Diagnosis: Principal (6) Anemia ICD Code: D64.9 Diagnosis: Secondary (7) Pain ICD Code: R52 Diagnosis: Secondary (8) PVD (peripheral vascular disease) ICD Code: I73.9 Diagnosis: Principal (9) Cardiomyopathy ICD Code: I42.9 Diagnosis: Secondary (10) Diabetes mellitus with peripheral angiopathy with gangrene ICD Code: E11.52 Diagnosis: Secondary (11) Hypoalbuminemia ICD Code: E88.09 Diagnosis: Secondary (12) Anoxic encephalopathy ICD Code: G93.1 Diagnosis: Secondary (13) DM type 2, uncontrolled, with neuropathy ICD Code: E11.40 Diagnosis: Secondary (14) CHF (congestive heart failure) ICD Code: I50.9 Diagnosis: Secondary (15) JAYLAN (acute kidney injury) ICD Code: N17.9 Diagnosis: Secondary (16) Severe protein-calorie malnutrition ICD Code: E43 Diagnosis: Secondary (17) Hypertension ICD Code: I10 Diagnosis: Secondary (18) Anemia in chronic illness ICD Code: D63.8 Diagnosis: Secondary Procedures 08/08/2016 PROCEDURE 1. Selective right lower extremity arteriogram. 2. Balloon angioplasty with a 4 mm x 2200 mm and then a 5 x 200 mm Medtronic angioplasty balloon of the right superficial femoral and proximal popliteal artery. 07/31/2016 Excision and debridement of both legs, extensive necrotic wounds approximately 30 x 25 cm area on each side, total 1000 to 1100 cm square, down to the subcutaneous tissue and tendon on the left side. 09/03/2016 Right [id number] amputation Brief History - From Admission 61-year-old female, with multiple admissions, with history of cellulitis of legs , severe PVD, diabetes and cardiomyopathy EF of 30% was at the rehabilitation facility when she became more altered today lethargic and hypoxic. Rapid response team was called and transferred patient to ICU. During my evaluation in the ICU patient remains confused and lethargic responsive to pain with a stable blood pressure and saturation of 100% on 40% face mask. Review of Systems CBC/BMP: 09/22/16 0825 09/22/16 0825 Significant Findings Laboratory Tests Test 09/21/16 09/22/16 10:21 08:25 Red Blood Count 3.35 MIL/MM3 3.35 MIL/MM3 (4.00-5.30) (4.00-5.30) Hemoglobin 8.2 GM/DL 8.1 GM/DL (11.6-15.3) (11.6-15.3) Hematocrit 26.0 % 25.8 % (35.0-46.0) (35.0-46.0) Mean Corpuscular Volume 77.7 FL 77.0 FL (80.0-100.0) (80.0-100.0) Mean Corpuscular Hemoglobin 24.5 PG 24.1 PG (27.0-34.0) (27.0-34.0) Mean Corpuscular Hemoglobin 31.5 % 31.3 % Concent (32.0-36.0) (32.0-36.0) Red Cell Distribution Width 19.0 % 19.4 % (11.6-17.2) (11.6-17.2) Potassium Level 3.3 MEQ/L (3.5-5.1) Creatinine 0.43 MG/DL 0.44 MG/DL (0.50-1.00) (0.50-1.00) Random Glucose 163 MG/DL 162 MG/DL (74-106) (74-106) Calcium Level 7.6 MG/DL 7.7 MG/DL (8.5-10.1) (8.5-10.1) Eosinophils (%) (Auto) 4.4 % (0.0-4.0) Imaging Last Impressions Brain MRI 09/07/16 0000 Signed Impressions: Service Date/Time: Wednesday, September 07, 2016 20:26 - CONCLUSION: 1. No acute findings. No significant change from August 25, 2016. No abnormal enhancement post contrast. Mild chronic white matter ischemic changes. Rolando Sharif MD Pelvis Ultrasound 09/05/16 0000 Signed Impressions: Service Date/Time: Monday, September 05, 2016 19:53 - CONCLUSION: Enlarged uterus with prominence of the endometrium. Alfredo Etienne MD Chest CT 09/05/16 0000 Signed Impressions: Service Date/Time: Monday, September 05, 2016 08:47 - CONCLUSION: 1. No worrisome masses. Please see above. 2. Dilatation of the aorta 4.3 cm. 3. Atherosclerosis. Addy Hillman MD Abdomen/Pelvis CT 09/05/16 0000 Signed Impressions: Service Date/Time: Monday, September 05, 2016 08:47 - CONCLUSION: 1. Fat containing umbilical hernias. 2. Extensive atherosclerosis. 3. Indeterminate low-density lesion in the liver, incompletely characterized without contrast. 4. Basilar air space disease and atelectasis with small pericardial effusion. 5. Abnormal appearance of the uterus as described above. A pelvic ultrasound will be helpful for further assessment on a nonemergent outpatient basis. Addy Hillman MD Lumbar Puncture Fluoroscopy 08/29/16 0000 Signed Impressions: Service Date/Time: Monday, August 29, 2016 16:39 - CONCLUSION: Uncomplicated fluoroscopically guided lumbar puncture with pressures as above. Alfredo Etienne MD Chest X-Ray 08/19/16 0000 Signed Impressions: Service Date/Time: Friday, August 19, 2016 18:46 - CONCLUSION: 1. Bibasilar streakiness consistent with atelectasis and/or infiltrates. 2. Cardiomegaly. 3. Poor inspiratory result. Shamar Banuelos MD Upper Extremity Ultrasound 07/28/16 0000 Signed Impressions: Service Date/Time: Thursday, July 28, 2016 14:34 - CONCLUSION: No DVT is identified within the right upper extremity. Alfredo Eng MD Head CT 07/19/16 0000 Signed Impressions: Service Date/Time: Tuesday, July 19, 2016 09:58 - CONCLUSION: No acute intracranial findings. João Otoole MD Foot X-Ray 07/16/16 0000 Signed Impressions: Service Date/Time: Saturday, July 16, 2016 17:34 - CONCLUSION: 1. Nonspecific soft tissue swelling. No acute bone destruction demonstrated. 2. Mild talonavicular and navicular/cuneiform degenerative changes. 3. Second through fifth hammertoe. 4. Moderate-sized heel spur. Alfredo Sneed MD PE at Discharge GENERAL: in no apparent distress. CARDIOVASCULAR: Regular rate and irregular rhythm without murmurs, gallops, or rubs. RESPIRATORY: Clear to auscultation. Breath sounds equal bilaterally. No wheezes , rales, or rhonchi. GASTROINTESTINAL: Abdomen soft, non-tender, nondistended. 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 NEURO: awake and alert Hospital Course -s/p right AKA for nonhealing ischemic wound. Stump well healing. cleared by vascular surgery for discharge. - Peripheral vascular disease with nonhealing left lower extremity wound with necrotic tendon, several necrotic toes-status post consultation with 3 vascular surgeons, plastic surgery, sueding and buffing machine operator. family declines amputation. topical hyperbaric oxygen therapy (numo bag) purchased by family. this therapy can be given in hospital or at home, but is not FDA approved. - Severe neuropathic pain - continue Neurontin. -Severe acute metabolic encephalopathy- continues to improve -exhaustive workup has been performed including initial LP which showed pleocytosis with lymphocyte predominance, see previous notes - Appreciate input from neurology, hematology, palliative care - EEG 09/04 -moderate encephalopathy. -MRI brain with and without contrast 09/07 negative -2nd neuro opinion (requested per family) with Dr. Bauer appreciated, family declines repeat LP as patient improving - C. Diff colitis, s/p treatment with vancomycin. ID/Dr. Quispe. - UTI - Microbiology grew ESBL ( 09/14/16) -d/w today; no need to treat at this time. -Diabetes mellitus type II, currently with good Accu-Chek reads- Coverage with SSI. Monitor Accu-Cheks. Monitor for hypoglycemia. -Hypothyroidism - TSH on 09/08 22, Free T3 low at 0.72, free T4 nml. increased levothyroxine 150 g ->175. repeat TSH in several weeks. - Hypertension - Cardiomyopathy - EF 3540% -Continue carvedilol low dose. will consider JOYCE inhibitor if blood pressure will tolerate and renal function remained stable. currently normotensive. S/p cardiology eval. - will defer to pcp to add JOYCE-I as outpatient if BP allows. -Acute kidney injury, resolved. -Chronic kidney disease stage III. creatinine stable around 1. -Severe malnutrition - dietary consult noted. Prealbumin is 7. Hopefully patient's by mouth intake will improve as she improves mental status. Consulted GI for eval for possible PEG tube. Started Marinol to stimulate appetite. Daughter Blanche wants to give the patient some time for improvement prior to considering PEG tube. Continue ensure, add multivitamin. - Abnormal uterine appearance - seen on abdominal and pelvis CT -pelvic ultrasound showing prominent endometrium, tumor markers negative, no history of vaginal bleeding -Heme on consult was requested per oncology service. Consider endometrial biopsy as outpatient. MRI abdomen canceled per family (did not want her sedated) . Anemia of chronic illness - stable, monitor transfuse prn Hb<7. decubitus ulcer- is being followed-up by wound care;previously d/w the polysomnographic technician. Full code. Heparin SQ. Pt Condition on Discharge: Fair Discharge Disposition: Discharge to SNF Discharge Time: > 30 minutes Discharge Instructions DIET: Follow Instructions for: Heart Healthy Diet, Diabetic Diet Speech Therapy-Diet Recommends: Regular Activities you can perform: Regular-No Restrictions Follow up Referrals: PCP Follow-up - 3-5 Days Podiatry - 1 Week Pulmonology Vascular Surgery - 2 Weeks New Medications: Famotidine Liq (Famotidine Liq) 40 Mg/5 Ml Susp 10 MG PO BID GERD Days [address] (Aspirin EC) 81 Mg Tabdr 81 MG PO DAILY cad #30 TAB Atorvastatin (Atorvastatin) 80 Mg Tab 80 MG PO HS hyperlipidemia #30 TAB Carvedilol (Coreg) 3.125 Mg Tab 3.125 MG PO Q12HR Blood Pressure Management #60 TAB Dronabinol (Marinol) 2.5 Mg Cap 2.5 MG PO BID@11,16 nausea #60 CAP Hydrocortisone Topical (Hydrocortisone Topical) 1% Cream 1 APPLIC TOPICAL Q8H Rash #1 TUBE Lactobacillus Acidophilus (Acidophilus/l-Sporogenes) 1 Tab Tab 1 TAB PO TID bowel management #90 TAB Melatonin (Melatonin) 5 Mg Tab 5 MG PO HS sleep #30 TAB Continued Medications: Lactobacillus Acidophilus (Acidophilus/l-Sporogenes) 1 Tab Tab 1 TAB PO TID #90 TAB Levothyroxine (Synthroid) 150 Mcg Tab 150 MCG PO DAILY@06 #30 TAB Levothyroxine (Levothyroxine) 25 Mcg Tab 25 MCG PO DAILY@06 #30 TAB Liothyronine (Cytomel) 5 Mcg Tab 5 MCG PO DAILY #30 TAB Multiple Vitamins W/ Minerals (Thera M Plus) 1 Tab 1 TAB PO DAILY #30 TAB Discontinued Medications: Bisacodyl Supp (Dulcolax Supp) 10 Mg Supp 10 MG RECTAL DAILY PRN IF NO BM 1 DAY AFTER MOM #12 Ref 0 SUPP Bupropion HCl ER 12 HR (Wellbutrin SR 12 HR) 150 Mg Tab 150 MG PO Q12HR #60 TAB Carvedilol (Coreg) 12.5 Mg Tab 25 MG PO BID #120 TAB Clonazepam (Clonazepam) 0.5 Mg Tab 0.5 MG PO Q8HR PRN ANXIETY #15 Ref 0 TAB Docusate Sodium (Dok) 100 Mg Cap 100 MG PO BID #[address] (Duloxetine DR) 30 Mg Capdr 30 MG PO Q12HR #60 CAP Fluconazole (Diflucan) 100 Mg Tab 75 MG PO DAILY@17 Days 1 TAB Furosemide (Lasix) 20 Mg Tab 20 MG PO DAILY #30 Ref 0 TAB Gabapentin (Neurontin) 300 Mg Cap 300 MG PO BID neuropathy #60 CAP Glucagon (Rdna) Inj Kit (Glucagen Hypokit Inj Kit) 1 Mg Kit 1 MG IM ONCE PRN DM, IF BS <50 #1 Ref 0 KIT Heparin Sodium (Porcine) (Heparin Sodium) 10,000 Unit/Ml Inj 5000 UNITS SQ Q12HR Days 1 INJECTION Insulin Detemir Inj (Levemir Inj) 1,000 unit/ 10 ML Vial 15 UNITS SQ HS Do not mix with any other Insulin. Blood Sugar Management Days 30 Ref 0 VIAL Insulin Detemir Inj (Levemir Inj) 1,000 unit/ 10 ML Vial 25 UNITS SQ HS Days 30 INJECTION Isosorbide Dinitrate (Isordil Titradose) 5 Mg Tab 5 MG PO Q8HR #90 TAB Levofloxacin (Levaquin) 250 Mg Tab 250 MG PO Q48H Days 1 TAB Losartan (Losartan) 100 Mg Tab 100 MG PO DAILY Blood Pressure Management #30 Ref 0 TAB Oxycodone-Acetaminophen (Oxycodone-Acetaminophen) 5-325 mg Tab 1 TAB PO Q4H PRN pain #15 Ref 0 TAB Quetiapine (Quetiapine) 25 Mg Tab 25 MG PO BID #60 TAB Sodium Chloride (Sodium Chloride) 1 Gm Tab 1 GM PO DAILY Electrolyte Replacement Ref 0 TAB ([Aspirin Ec]) 325 MG TABEC 325 MG PO DAILY #30 TAB.EC Conrad Clancy MD September 23, 2016 10:43
[2016-09-23] MEDS: DRONABINOL 2.5 MG CAP PO SCH ×2 (11:25→16:00)
[2016-09-23] MEDS: MELATONIN 5 MG TAB PO SCH (21:00)
[2016-09-23] MEDS: ATORVASTATIN 80 MG TAB PO SCH (21:51)
[2016-09-24] MEDS: HYDROCORTISONE 1% CREAM 30 GM TOPICAL SCH ×2 (04:00→08:31)
[2016-09-24 05:02] VITALS: BP 135/63; PULSE 85; RESP 16; TEMP 97.5; O2SAT 99
[2016-09-24] MEDS: TRIAMCINOLONE ACETONIDE 0.1% CREAM 15 GM TOPICAL SCH ×3 (05:57→08:31)
[2016-09-24] MEDS: LEVOTHYROXINE SODIUM 25 MCG TAB PO SCH (05:58)
[2016-09-24] MEDS: LEVOTHYROXINE SODIUM 150 MCG TAB PO SCH (05:58)
[2016-09-24] MEDS: INSULIN ASPART SUPPLEMENTAL SCALE SQ SCH ×2 (06:03→11:17)
[2016-09-24 08:00] VITALS: BP 126/61; PULSE 80; RESP 18; TEMP 98.1; O2SAT 94
[2016-09-24] MEDS: MUPIROCIN 2% OINT 22 GM TUBE TOPICAL SCH (08:31)
[2016-09-24] MEDS: LACTOBACILLUS ACIDOPHILUS TAB PO SCH ×2 (08:31→12:19)
[2016-09-24] MEDS: CARVEDILOL 3.125 MG TAB PO SCH (08:31)
[2016-09-24] MEDS: THIAMINE HCL 100 MG TAB PO SCH (08:31)
[2016-09-24] MEDS: POTASSIUM CHLORIDE 20 MEQ CONTROLLED RELEASE TAB PO SCH (08:31)
[2016-09-24] MEDS: ASPIRIN EC 81 MG TABEC PO SCH (08:31)
[2016-09-24] MEDS: SODIUM CHLORIDE 0.9% FLUSH 5 ML FLUSH IV FLUSH SCH (08:31)
[2016-09-24] MEDS: LIOTHYRONINE SODIUM 5 MCG TAB PO SCH (08:31)
--- NOTE | 2016-09-24 09:28 | HHI.PR ---
Subjective Remarks resting comfortably with no distress. pain is controlled. no fever. Objective Vitals Vital Signs Date Time Temp Pulse Resp B/P Pulse Ox O2 Delivery O2 Flow Rate FiO2 09/24/16 08:00 98.1 80 18 126/61 94 09/24/16 05:02 97.5 85 16 135/63 99 09/23/16 23:03 98.9 84 16 100/55 97 09/23/16 20:30 Room Air 09/23/16 19:59 98.1 75 16 125/58 96 09/23/16 16:00 98.7 81 18 131/61 97 09/23/16 11:55 98.1 75 20 107/54 96 09/23/16 09:30 Room Air 21 I/O 09/23/16 09/23/16 09/23/16 09/24/16 09/24/16 09/24/16 07:00 15:00 23:00 07:00 15:00 23:00 Intake Total 480 ml 480 ml 480 ml 240 ml Output Total 550 ml 0 ml Balance 480 ml 480 ml -70 ml 240 ml Intake Oral 480 ml 480 ml 480 ml 240 ml Output Urine Total 550 ml 0 ml # Voids 1 2 # Bowel Movements 2 1 0 0 Result Diagram: 09/22/16 0825 09/22/16 0825 Imaging Last Impressions Brain MRI 09/07/16 0000 Signed Impressions: Service Date/Time: Wednesday, September 07, 2016 20:26 - CONCLUSION: 1. No acute findings. No significant change from August 25, 2016. No abnormal enhancement post contrast. Mild chronic white matter ischemic changes. Rolando Sharif MD Pelvis Ultrasound 09/05/16 0000 Signed Impressions: Service Date/Time: Monday, September 05, 2016 19:53 - CONCLUSION: Enlarged uterus with prominence of the endometrium. Alfredo Etienne MD Chest CT 09/05/16 0000 Signed Impressions: Service Date/Time: Monday, September 05, 2016 08:47 - CONCLUSION: 1. No worrisome masses. Please see above. 2. Dilatation of the aorta 4.3 cm. 3. Atherosclerosis. Addy Hillman MD Abdomen/Pelvis CT 09/05/16 0000 Signed Impressions: Service Date/Time: Monday, September 05, 2016 08:47 - CONCLUSION: 1. Fat containing umbilical hernias. 2. Extensive atherosclerosis. 3. Indeterminate low-density lesion in the liver, incompletely characterized without contrast. 4. Basilar air space disease and atelectasis with small pericardial effusion. 5. Abnormal appearance of the uterus as described above. A pelvic ultrasound will be helpful for further assessment on a nonemergent outpatient basis. Addy Hillman MD Lumbar Puncture Fluoroscopy 08/29/16 0000 Signed Impressions: Service Date/Time: Monday, August 29, 2016 16:39 - CONCLUSION: Uncomplicated fluoroscopically guided lumbar puncture with pressures as above. Alfredo Etienne MD Chest X-Ray 08/19/16 0000 Signed Impressions: Service Date/Time: Friday, August 19, 2016 18:46 - CONCLUSION: 1. Bibasilar streakiness consistent with atelectasis and/or infiltrates. 2. Cardiomegaly. 3. Poor inspiratory result. Shamar Banuelos MD Upper Extremity Ultrasound 07/28/16 0000 Signed Impressions: Service Date/Time: Thursday, July 28, 2016 14:34 - CONCLUSION: No DVT is identified within the right upper extremity. Alfredo Eng MD Head CT 07/19/16 0000 Signed Impressions: Service Date/Time: Tuesday, July 19, 2016 09:58 - CONCLUSION: No acute intracranial findings. João Otoole MD Foot X-Ray 07/16/16 0000 Signed Impressions: Service Date/Time: Saturday, July 16, 2016 17:34 - CONCLUSION: 1. Nonspecific soft tissue swelling. No acute bone destruction demonstrated. 2. Mild talonavicular and navicular/cuneiform degenerative changes. 3. Second through fifth hammertoe. 4. Moderate-sized heel spur. Alfredo Sneed MD Objective Remarks GENERAL: in no apparent distress. CARDIOVASCULAR: Regular rate and irregular rhythm without murmurs, gallops, or rubs. RESPIRATORY: Clear to auscultation. Breath sounds equal bilaterally. No wheezes , rales, or rhonchi. GASTROINTESTINAL: Abdomen soft, non-tender, nondistended. 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 NEURO: awake and alert Procedures 08/08/2016 PROCEDURE 1. Selective right lower extremity arteriogram. 2. Balloon angioplasty with a 4 mm x 2200 mm and then a 5 x 200 mm [employer] angioplasty balloon of the right superficial femoral and proximal popliteal artery. 07/31/2016 Excision and debridement of both legs, extensive necrotic wounds approximately 30 x 25 cm area on each side, total 1000 to 1100 cm square, down to the subcutaneous tissue and tendon on the left side. 09/03/2016 Right [id number] amputation Medications and IVs Current Medications Sodium Chloride (NS 1000 ml Inj) 1,000 ml @ 84 mls/hr [id number] IV Last administered on 08/05/16 16:12; Start 07/15/16 at 19:42; Stop 08/18/16 at 15:34 ; Status DC IV Flush (NS Flush) 2 ml UNSCH PRN IV FLUSH FLUSH AFTER USING IV ACCESS Last administered on 08/12/16 05:30; Start 07/15/16 at 19:45 IV Flush (NS Flush) 2 ml BID IV FLUSH Last administered on 09/24/16 08:31; Start 07/15/16 at 21:00 Fentanyl Citrate (fentaNYL INJ) 50 mcg Q3H PRN IV PUSH Pain scale 7-10 &/or sedation Last administered on 07/15/16 21:44; Start 07/15/16 at 19:45; Stop at 11:51; Status DC Famotidine (Pepcid Inj) 20 mg Q12HR IV PUSH Last administered on 07/15/16 20: 19; Start 07/15/16 at 21:00; Stop 07/15/16 at 21:24; Status DC Ondansetron HCl (Zofran Inj) 4 mg Q6H PRN IV NAUSEA OR VOMITING Last administered on 07/31/16 13:23; Start 07/15/16 at 19:45; Stop 08/12/16 at 20:17 ; Status DC Metoclopramide HCl (Reglan Inj) 5 mg Q6H PRN IV NAUSEA OR VOMITING Last administered on 09/06/16 21:32; Start 07/15/16 at 19:45 Docusate Sodium (Colace) 100 mg BID PO Last administered on 08/07/16 21:00; Start 07/15/16 at 21:00; Stop 08/08/16 at 22:08; Status DC Albuterol/ Ipratropium (Duoneb Neb) 1 ampule Q2HR NEB PRN INH WHEEZING; Start 07/15/16 at 19:45 Heparin Sodium (Porcine) (Heparin Inj) 5,000 units Q8HR SQ Last administered on 08/28/16 12:46; Start 07/15/16 at 22:00; Stop 09/03/16 at 23:47; Status DC Miscellaneous Information 1 [id number] Last administered on 07/15/16 19:45; Start 07/15/16 at 19:45; Stop 09/04/16 at 03:06; Status DC Chlorhexidine Gluconate (Chlorhexidine 2% Cloth) Taper DAILY@04 TOP Last administered on 07/17/16 03:11; Start 07/16/16 at 04:00; Stop 09/04/16 at 03:06 ; Status DC Chlorhexidine Gluconate (Chlorhexidine 2% Cloth) 3 pack UNSCH PRN TOP HYGIENIC CARE; Start 07/15/16 at 19:45; Stop 09/04/16 at 03:06; Status DC Acetaminophen (Ofirmev Inj) 1,000 mg Q6H PRN IV PAIN SCALE 1 TO 6; Start at 20:00; Stop 07/18/16 at 11:51; Status DC Ketorolac Tromethamine (Toradol Inj) 30 mg Q6H PRN IM PAIN SCALE 1 TO 7; Start 07/15/16 at 20:00; Stop 07/15/16 at 20:10; Status DC Ketorolac Tromethamine (Toradol Inj) 30 mg Q6H PRN IV PUSH PAIN 1-6 Last administered on 07/15/16 20:34; Start 07/15/16 at 20:15; Stop 07/18/16 at 11:51 ; Status DC Carvedilol (Coreg) 25 mg BID PO Last administered on 08/17/16 10:24; Start at 21:00; Stop 08/17/16 at 16:06; Status DC Fluconazole (Diflucan) 75 mg DAILY@17 PO Last administered on 07/16/16 17:03; Start 07/16/16 at 17:00; Stop 07/17/16 at 08:09; Status DC Isosorbide Dinitrate (Isordil) 5 mg Q8HR PO Last administered on 09/02/16 05: 38; Start 07/15/16 at 22:00; Stop 09/03/16 at 23:47; Status DC Lactobacillus Acidophilus (Lactinex) 1 tab TID PO Last administered on 08:32; Start 07/16/16 at 09:00; Stop 08/25/16 at 08:59; Status DC Levofloxacin (Levaquin) 250 mg Q48H PO Last administered on 07/21/16 21:05; Start 07/15/16 at 22:00; Stop 07/23/16 at 16:37; Status DC Levothyroxine Sodium (Synthroid) 150 mcg DAILY@06 PO Last administered on 05:47; Start 07/16/16 at 06:00; Stop 09/09/16 at 17:57; Status DC Liothyronine Sodium (Cytomel) 5 mcg DAILY PO Last administered on 09/24/16 08: 31; Start 07/16/16 at 09:00 Non-Formulary Medication 325 mg DAILY PO ; Start 07/16/16 at 09:00; Status UNV Miscellaneous (Pill Splitter) 1 ea UNSCH PRN OTHER SEE LABEL COMMENTS; Start at 21:30 Famotidine (Pepcid Inj) 10 mg Q12HR IV PUSH Last administered on 07/17/16 07: 29; Start 07/16/16 at 09:00; Stop 07/18/16 at 10:59; Status DC Aspirin (Ecotrin Ec) 325 mg DAILY PO Last administered on 08/25/16 08:30; Start 07/16/16 at 09:00; Stop 08/25/16 at 16:10; Status DC Etomidate (Amidate Inj) 20 mg STK-MED ONCE .ROUTE ; Start 07/16/16 at 17:07; Stop 07/16/16 at 17:08; Status DC Famotidine (Pepcid Inj) 20 mg Q12HR IV PUSH Last administered on 08/12/16 09: 05; Start 07/18/16 at 21:00; Stop 08/12/16 at 20:17; Status DC Hydromorphone HCl (Dilaudid Pf Inj) 0.5 mg ONCE ONCE IV PUSH Last administered on 08/04/16 18:00; Start 07/18/16 at 11:45; Stop 07/18/16 at 11:46 ; Status DC Hydromorphone HCl (Dilaudid Pf Inj) 0.5 mg Q4H PRN IV PUSH breakthrough pain / dresing lori Last administered on 08/31/16 05:32; Start 07/18/16 at 11:45; Stop 09/03/16 at 23:47; Status DC Acetaminophen/ Hydrocodone Bitart ([place] 5-325 Mg) 1 tab Q6H PRN PO pain 2-10 Last administered on 08/12/16 09:04; Start 07/18/16 at 11:45; Stop 08/12/16 at 20:17; Status DC Diphenhydramine HCl 50 mg 50 mg STK-MED ONCE .ROUTE ; Start 07/19/16 at 11:20; Stop 07/19/16 at 11:21; Status DC Levetriacetam/ Sodium Chloride (Keppra Inj/NS Inj) 105 ml @ 420 mls/hr Q12HR IV Last administered on 07/20/16 08:19; Start 07/19/16 at 13:00; Stop at 16:25; Status DC Haloperidol Lactate (Haldol Inj) 2 mg Q6H PRN IM aggittation Last administered on 07/30/16 01:29; Start 07/19/16 at 12:30; Stop 09/03/16 at 23:47; Status DC Lorazepam 1 mg 1 mg Q6H PRN IV PUSH seizures/agiatation Last administered on 06:09; Start 07/19/16 at 12:30; Stop 09/03/16 at 23:47; Status DC Valproate Sodium 500 mg/Sodium Chloride 105 ml @ 105 mls/hr Q8H IV Last administered on 07/25/16 09:26; Start 07/20/16 at 18:00; Stop 07/25/16 at 09:54; Status DC Cefepime HCl/ Sodium Chloride (Maxipime Inj/NS Inj) 100 ml @ 200 mls/hr Q12H IV Last administered on 07/27/16 02:43; Start 07/21/16 at 15:00; Stop 07/27/16 at 09:00; Status DC Dextrose (D50w (Vial) Inj) 25 ml UNSCH PRN IV PUSH HYPOGLYCEMIA-SEE COMMENTS; Start 07/23/16 at 11:00 Glucagon (Glucagon Inj) 1 mg UNSCH PRN OTHER HYPOGLYCEMIA-SEE COMMENTS; Start 07/23/16 at 11:00 Insulin Aspart (NovoLOG SUPPLEMENTAL SCALE) 1 ACHS SLIDING SCALE SQ Last administered on 09/24/16 06:03; Start 07/23/16 at 11:00 Potassium Chloride (KCl) 40 meq ONCE ONCE PO Last administered on 07/24/16 13: 00; Start 07/24/16 at 13:00; Stop 07/24/16 at 13:01; Status DC Valproic Acid (Depakene) 500 mg Q8HR PO Last administered on 07/26/16 14:52; Start 07/25/16 at 15:00; Stop 07/26/16 at 17:39; Status DC Potassium Chloride (KCl) 30 meq ONCE ONCE PO Last administered on 07/26/16 19: 30; Start 07/26/16 at 16:30; Stop 07/26/16 at 16:36; Status DC Potassium Chloride (KCl) 30 meq ONCE ONCE PO Last administered on 07/26/16 22: 16; Start 07/26/16 at 20:00; Stop 07/26/16 at 20:01; Status DC Valproic Acid (Depakene) 250 mg Q12HR PO Last administered on 09/04/16 09:07; Start 07/27/16 at 09:00; Stop 09/04/16 at 16:16; Status DC Hydromorphone HCl (Dilaudid Pf Inj) 0.5 mg ONCE ONCE IV PUSH Last administered on 07/27/16 10:42; Start 07/27/16 at 10:45; Stop 07/27/16 at 10:46; Status DC Valsartan (Diovan) 80 mg HS PO Last administered on 08/19/16 21:58; Start 07/27 at 21:00; Stop 08/20/16 at 18:58; Status DC Enalaprilat (Vasotec Inj) 1.25 mg Q8H PRN IV PUSH SBP >180 OR DBP >100; Start 07/28/16 at 16:00 Fluconazole 100 mg 100 mg DAILY PO Last administered on 08/05/16 11:34; Start 07/30/16 at 09:45; Stop 08/05/16 at 16:53; Status DC Ceftriaxone Sodium/Sodium Chloride (Rocephin Inj/NS Inj) 100 ml @ 200 mls/hr Q24H IV Last administered on 08/01/16 09:45; Start 07/30/16 at 10:00; Stop 03/10 at 11:59; Status DC Potassium Chloride (KCl) 30 meq ONCE ONCE PO Last administered on 07/30/16 12: 12; Start 07/30/16 at 09:45; Stop 07/30/16 at 09:53; Status DC Potassium Chloride (KCl) 30 meq ONCE ONCE PO Last administered on 07/30/16 14: 00; Start 07/30/16 at 14:00; Stop 07/30/16 at 14:01; Status DC Insulin Detemir (Levemir Inj) 5 units HS SQ Last administered on 09/03/16 20: 17; Start 07/30/16 at 21:00; Status Hold Melatonin (Melatonin) 5 mg HS PO Last administered on 09/15/16 21:03; Start at 21:00 Bupivacaine HCl (Marcaine Pf 0.5% Inj) 30 ml STK-MED ONCE .ROUTE ; Start at 10:12; Stop 07/31/16 at 10:13; Status DC Bupivacaine HCl/ Epinephrine Bitart (Sensorcaine-Epi 0.5% 50 ml Inj) 50 ml STK- MED ONCE .ROUTE ; Start 07/31/16 at 10:12; Stop 07/31/16 at 10:13; Status DC Bacitracin (Baciguent Oint) 15 applic STK-MED ONCE .ROUTE ; Start 07/31/16 at 10: 12; Stop 07/31/16 at 10:13; Status DC Dexamethasone Sodium Phosphate (Decadron Inj) 4 mg STK-MED ONCE .ROUTE Last administered on 07/31/16 10:24; Start 07/31/16 at 10:22; Stop 07/31/16 at 10:23; Status DC Famotidine (Pepcid Inj) 20 mg STK-MED ONCE IV PUSH Last administered on 10:23; Start 07/31/16 at 10:23; Stop 07/31/16 at 10:27; Status DC Fentanyl Citrate 500 mcg 500 mcg STK-MED ONCE .ROUTE ; Start 07/31/16 at 12:13; Stop 07/31/16 at 12:14; Status DC Gentamicin Sulfate/Sodium Chloride (Gentamicin Inj/ NS Irr Btl) 1,005 ml @ 0 mls/hr UNSCH PRN IRRIGATION DRESSING CHANGES; Start 07/31/16 at 13:30 Miscellaneous Information ALL NURSING DEPARTME... UNSCH PRN XX SEE LABEL COMMENTS; Start 07/31/16 at 13:30; Stop 08/01/16 at 13:29; Status DC Propofol (Diprivan 200 Mg/20 ml Inj) 200 mg STK-MED ONCE IV ; Start 07/31/16 at 12:42; Stop 08/04/16 at 12:43; Status DC Ephedrine Sulfate (ePHEDrine/NS 25 MG/5 ML SYR) 25 mg STK-MED ONCE IV ; Start at 12:42; Stop 08/04/16 at 12:43; Status DC Phenylephrine HCl (Neosynephrine/ NS 1000 Mcg/10ml Syr) 1,000 mcg STK-MED ONCE IV ; Start 07/31/16 at 12:42; Stop 08/04/16 at 12:43; Status DC Ondansetron HCl (Zofran Inj) 4 mg STK-MED ONCE IV PUSH ; Start 07/31/16 at 12:42 ; Stop 08/04/16 at 12:43; Status DC Prednisone (Deltasone) 50 mg Q6H PO Last administered on 08/08/16t 04:00; Start 08/07/16 at 16:00; Stop 08/08/16 at 04:01; Status DC Diphenhydramine HCl (Benadryl Inj) 50 mg ONCE ONCE IV ; Start 08/07/16 at 16:00 ; Stop 08/07/16 at 16:01; Status DC Midazolam HCl (Versed Inj) 2 mg STK-MED ONCE .ROUTE ; Start 08/08/16 at 08:24; Stop 08/08/16 at 08:25; Status DC Diphenhydramine HCl (Benadryl Inj) 50 mg STK-MED ONCE .ROUTE ; Start 08/08/16 at 08:24; Stop 08/08/16 at 08:25; Status DC Hydrocortisone Sodium Succinate (SoluCORTEF INJ) 100 mg STK-MED ONCE .ROUTE Last administered on 08/08/16 08:52; Start 08/08/16 at 08:50; Stop 08/08/16 at 08:51; Status DC Ketamine HCl (Ketalar Inj) 500 mg STK-MED ONCE .ROUTE ; Start 08/08/16 at 08:59 ; Stop 08/08/16 at 09:00; Status DC Iohexol 100 ml 100 ml STK-MED ONCE OTHER Last administered on 08/08/16 08:50; Start 08/08/16 at 08:50; Stop 08/08/16 at 09:45; Status DC Nitroglycerin/ Dextrose (Nitroglycerin-Dextrose Inj) 250 ml @ As Directed STK- MED ONCE .ROUTE ; Start 08/08/16 at 09:57; Stop 08/08/16 at 09:58; Status DC Iohexol (Omnipaque 300 Inj) 50 ml STK-MED ONCE OTHER Last administered on 10:10; Start 08/08/16 at 10:10; Stop 08/08/16 at 10:31; Status DC Midazolam HCl (Versed Inj) 2 mg STK-MED ONCE .ROUTE ; Start 08/08/16 at 11:01; Stop 08/08/16 at 11:02; Status DC Fentanyl Citrate (fentaNYL INJ) 250 mcg STK-MED ONCE .ROUTE ; Start 08/08/16 at 11:02; Stop 08/08/16 at 11:03; Status DC Fentanyl Citrate (fentaNYL INJ) 100 mcg STK-MED ONCE .ROUTE ; Start 08/08/16 at 11:02; Stop 08/08/16 at 11:03; Status DC Morphine Sulfate (Morphine Inj) 4 mg STK-MED ONCE .ROUTE ; Start 08/08/16 at 11: 03; Stop 08/08/16 at 11:04; Status DC Morphine Sulfate (*morphine INJ PERIprocedure ONLY) 8 mg STK-MED ONCE .ROUTE Last administered on 08/08/16 11:17; Start 08/08/16 at 11:17; Stop 08/08/16 at 11:18; Status DC Miscellaneous Information ALL NURSING DEPARTME... UNSCH PRN XX SEE LABEL COMMENTS; Start 08/08/16 at 12:30; Stop 08/09/16 at 12:29; Status DC Lorazepam (Ativan) 0.25 mg Q12H PRN PO ANXIETY; Start 08/09/16 at 14:00; Stop 08/11/16 at 14:33; Status DC Propofol (Diprivan 200 Mg/20 ml Inj) 800 mg STK-MED ONCE IV ; Start 08/08/16 at 12:00; Stop 08/11/16 at 12:57; Status DC Heparin Sodium (Porcine) (Heparin Inj) 5,000 units STK-MED ONCE OTHER ; Start at 12:00; Stop 08/11/16 at 13:02; Status DC Potassium Chloride (KCl) 10 meq Q8HR PO Last administered on 08/16/16 06:08; Start 08/11/16 at 14:00; Stop 08/16/16 at 13:59; Status DC Clonazepam (KlonoPIN) 0.5 mg Q8HR PO Last administered on 08/12/16 05:29; Start 08/11/16 at 14:45; Stop 08/12/16 at 12:49; Status DC Diphenhydramine HCl (Benadryl) 25 mg ONCE ONCE PO Last administered on 17:50; Start 08/11/16 at 14:45; Stop 08/11/16 at 15:05; Status DC Clonazepam (KlonoPIN) 0.5 mg Q8H PRN PO ANXIETY Last administered on 08/30/16 22:50; Start 08/12/16 at 12:45; Stop 09/03/16 at 23:47; Status DC Gabapentin (Neurontin) 200 mg TID PO Last administered on 08/12/16 14:59; Start 08/12/16 at 13:00; Stop 08/14/16 at 16:07; Status DC Methadone HCl (Dolophine) 2.5 mg Q12HR PO Last administered on 09/01/16 21:49 ; Start 08/12/16 at 21:00; Stop 09/03/16 at 23:47; Status DC Doxycycline Hyclate (Vibratab) 100 mg Q12HR PO Last administered on 08/16/16 22:41; Start 08/12/16 at 22:45; Stop 08/17/16 at 08:21; Status DC Quetiapine Fumarate (SEROquel) 12.5 mg ONCE ONCE PO Last administered on 10:45; Start 08/13/16 at 10:45; Stop 08/13/16 at 10:50; Status DC Quetiapine Fumarate (SEROquel) 12.5 mg BID PO Last administered on 08/13/16 20 :32; Start 08/13/16 at 21:00; Stop 08/14/16 at 12:41; Status DC Gabapentin (Neurontin) 300 mg ONCE ONCE PO Last administered on 08/13/16 11: 00; Start 08/13/16 at 11:00; Stop 08/13/16 at 11:09; Status DC Acetaminophen (Tylenol) 500 mg Q6H PRN PO FEVER >100.4 Last administered on 17:12; Start 08/13/16 at 17:15 Quetiapine Fumarate (SEROquel) 6.25 mg HS PO Last administered on 09/01/16 21: 00; Start 08/14/16 at 21:00; Stop 09/03/16 at 23:47; Status DC Quetiapine Fumarate (SEROquel) 6.25 mg DAILY PRN PO agitated delirium Last administered on 09/01/16 12:37; Start 08/14/16 at 12:45; Stop 09/03/16 at 23:47 ; Status DC Gabapentin (Neurontin) 300 mg TID PO Last administered on 08/15/16 13:25; Start 08/15/16 at 09:00; Stop 08/15/16 at 14:20; Status DC Gabapentin (Neurontin) 400 mg ONCE ONCE PO ; Start 08/14/16 at 16:15; Stop at 16:15; Status DC Gabapentin (Neurontin) 200 mg ONCE ONCE PO Last administered on 08/14/16 17: 00; Start 08/14/16 at 16:30; Stop 08/14/16 at 16:33; Status DC Gabapentin (Neurontin) 400 mg TID PO Last administered on 08/18/16 12:34; Start 08/15/16 at 18:00; Stop 08/18/16 at 13:52; Status DC Mupirocin (Bactroban 2% Oint) 1 applic Q12HR TOPICAL Last administered on 08:31; Start 08/15/16 at 15:00 Hydrocortisone 1 applic 1 applic Q8H TOPICAL Last administered on 09/24/16 08: 31; Start 08/15/16 at 20:00 Levofloxacin/ Dextrose (Levaquin 750 Mg Premix Inj) 150 ml @ 100 mls/hr Q24H IV Last administered on 08/16/16 09:41; Start 08/16/16 at 08:00; Stop at 08:21; Status DC Lactobacillus Acidophilus 1 tab 1 tab TID PO Last administered on 09/23/16 08: 21; Start 08/16/16 at 09:00 Vancomycin HCl 1750 mg/Sodium Chloride 517.5 ml @ 258.75 mls/ hr ONCE ONCE IV Last administered on 08/17/16 10:21; Start 08/17/16 at 10:00; Stop 08/17/16 at 11:59; Status DC Pharmacy Profile Note 0 ml @ 0 mls/hr UNSCH OTHER ; Start 08/17/16 at 08:15; Stop 08/18/16 at 16:18; Status DC Piperacillin Sod/ Tazobactam Sod 50 ml @ 100 mls/hr Q6H IV Last administered on 08/18/16 09:15; Start 08/17/16 at 09:00; Stop 08/18/16 at 13:02; Status DC Sodium Chloride 1,000 ml @ 999 mls/hr BOLUS ONCE IV Last administered on 08/17 08:30; Start 08/17/16 at 08:30; Stop 08/17/16 at 09:30; Status DC Sodium Chloride 1,000 ml @ 200 mls/hr Q5H IV ; Start 08/17/16 at 09:00; Stop at 18:59; Status DC Vancomycin HCl/ Sodium Chloride (Vancomycin Inj/ NS 250 ml Inj) 250 ml @ 250 mls/hr Q12H IV Last administered on 08/18/16 12:33; Start 08/17/16 at 22:00; Stop 08/18/16 at 16:31; Status DC Miscellaneous Information SPECIFIC LAB TO BE ... ONCE ONCE XX ; Start at 21:45; Stop 08/18/16 at 21:45; Status DC Olanzapine 10 mg 10 mg Q12H PRN IM acute agitation; Start 08/17/16 at 16:15; Stop 08/19/16 at 16:14; Status DC Levofloxacin/ Dextrose 150 ml @ 100 mls/hr Q24H IV ; Start 08/18/16 at 09:00; Stop 08/18/16 at 09:00; Status DC Levofloxacin/ Dextrose (Levaquin 750 Mg Premix Inj) 150 ml @ 100 mls/hr Q48H IV Last administered on 08/18/16 09:54; Start 08/18/16 at 09:00; Stop at 13:02; Status DC Miscellaneous Medication (ASP Crit: Doc ESBL, MDR A baumannii or P aer) 1 UNSCH X1 PRN XX PHARMACY DOCUMENTATION; Start 08/18/16 at 13:00; Stop 08/19/16 at 12: 59; Status DC Miscellaneous Medication 1 1 UNSCH X1 PRN XX PHARMACY DOCUMENTATION; Start at 13:00; Stop 08/19/16 at 12:59; Status DC Meropenem/Sodium Chloride (Merrem Inj/NS Inj) 100 ml @ 200 mls/hr Q8H IV Last administered on 08/21/16 06:14; Start 08/18/16 at 14:00; Stop 08/21/16 at 07:36 ; Status DC Gabapentin 600 mg 600 mg TID PO Last administered on 09/01/16 18:44; Start at 18:00; Stop 09/02/16 at 21:42; Status DC Sodium Chloride 1,000 ml @ 150 mls/hr Q6H40M IV Last administered on 17:44; Start 08/18/16 at 15:30; Stop 08/20/16 at 17:43; Status DC Sodium Chloride (NS 250 ml Inj) 250 ml @ 15 mls/hr ONCE ONCE IV Last administered on 08/19/16 06:34; Start 08/18/16 at 16:45; Stop 08/19/16 at 09:24 ; Status DC Acetaminophen (Tylenol) 650 mg Q4H PRN PO SEE LABEL COMMENTS; Start 08/18/16 at 16:45; Stop 08/18/16 at 20:46; Status DC Diphenhydramine HCl 25 mg 25 mg Q4H PRN PO SEE LABEL COMMENTS; Start 08/18/16 at 16:45; Stop 08/18/16 at 20:46; Status DC Linezolid (Zyvox 600 Mg Premix) 300 ml @ 300 mls/hr Q12H IV Last administered on 08/20/16 22:54; Start 08/19/16 at 08:00; Stop 08/21/16 at 07:36; Status DC Albumin Human (Albumin 25% Inj) 12.5 gm Q8H IV Last administered on 08/22/16 11:31; Start 08/20/16 at 20:00; Stop 08/22/16 at 13:51; Status DC Bumetanide (Bumex Inj) 1 mg Q8H IV PUSH Last administered on 08/22/16 12:44; Start 08/20/16 at 20:00; Stop 08/22/16 at 13:51; Status DC Metronidazole (Flagyl) 500 mg Q6HR PO ; Start 08/21/16 at 09:00; Stop 08/21/16 at 09:00; Status DC Vancomycin HCl (VANCOMYCIN for oral use only) 500 mg QID PO Last administered on 08/25/16 12:22; Start 08/21/16 at 09:00; Stop 08/25/16 at 13:53; Status DC Chlorothiazide Sodium (Diuril Inj) 250 mg ONCE ONCE IV Last administered on 21:03; Start 08/21/16 at 20:00; Stop 08/21/16 at 20:01; Status DC Potassium Phos/ Sodium Phos (K-Phos Neutral) 250 mg BID PO Last administered on 08/22/16 07:41; Start 08/21/16 at 21:00; Stop 08/22/16 at 20:59; Status DC Bumetanide (Bumetanide) 1 mg DAILY PO Last administered on 09/01/16 08:18; Start 08/23/16 at 09:00; Stop 09/03/16 at 23:47; Status DC Potassium Chloride (KCl) 20 meq ONCE ONCE PO Last administered on 08/22/16 14 :23; Start 08/22/16 at 14:00; Stop 08/22/16 at 14:01; Status DC Valsartan (Diovan) 40 mg DAILY PO Last administered on 09/01/16 08:18; Start 08/23/16 at 09:00; Stop 09/03/16 at 23:47; Status DC Vancomycin HCl (VANCOMYCIN for oral use only) 125 mg QID PO Last administered on 09/09/16 12:29; Start 08/25/16 at 18:00; Stop 09/09/16 at 17:59; Status DC Lorazepam (Ativan Inj) 0.5 mg UNSCH X1 IV Last administered on 08/25/16 18:32 ; Start 08/25/16 at 17:00; Stop 08/25/16 at 23:00; Status DC Diphenhydramine HCl (Benadryl) 25 mg ONCE ONCE PO Last administered on 22:15; Start 08/26/16 at 22:00; Stop 08/26/16 at 22:01; Status DC Lorazepam (Ativan Inj) 1 mg ONCE ONCE IV PUSH Last administered on 08/29/16 17 :10; Start 08/29/16 at 17:00; Stop 08/29/16 at 17:01; Status DC Hydromorphone HCl (Dilaudid Pf Inj) 0.5 mg ONCE ONCE IV PUSH Last administered on 08/29/16 17:11; Start 08/29/16 at 17:00; Stop 08/29/16 at 17:01; Status DC Olanzapine 5 mg 5 mg HS PO Last administered on 09/01/16 21:49; Start 08/30/16 at 21:15; Stop 09/03/16 at 23:47; Status DC Potassium Chloride/Lactated Ringer's (KCl Inj/Lr 1000 ml Inj) 1,010 ml @ 42 mls /hr Q24H IV Last administered on 09/10/16 07:14; Start 09/02/16 at 00:00; Stop 09/12/16 at 20:35; Status DC Vancomycin HCl (Vancomycin Inj) 1,000 mg STK-MED ONCE OTHER Last administered on 09/02/16 16:51; Start 09/02/16 at 16:51; Stop 09/02/16 at 16:59; Status DC Morphine Sulfate (Morphine Inj) 2 mg Q4HR PRN IM Pain 1-10 Last administered on 09/11/16 11:27; Start 09/03/16 at 16:15 Haloperidol Lactate (Haldol Inj) 1 mg Q6H PRN IM Psychosis, delirium Last administered on 09/04/16 09:17; Start 09/03/16 at 16:15; Status Hold Heparin Sodium (Porcine) (Heparin Inj) 5,000 units Q12HR SQ Last administered on 09/09/16 21:39; Start 09/04/16 at 09:00; Stop 09/10/16 at 07:38; Status DC Dronabinol (Marinol) 2.5 mg BID@11,16 PO Last administered on 09/23/16 11:25; Start 09/05/16 at 11:00 Dronabinol (Marinol) 2.5 mg ONCE ONCE PO Last administered on 09/04/16 21:51 ; Start 09/04/16 at 17:15; Stop 09/04/16 at 17:17; Status DC Aspirin (Ecotrin Ec) 81 mg DAILY PO Last administered on 09/24/16 08:31; Start 09/05/16 at 09:00 Carvedilol (Coreg) 3.125 mg Q12HR PO Last administered on 09/24/16 08:31; Start 09/05/16 at 09:00 Lorazepam (Ativan Inj) 0.5 mg COATING MACHINE HELPER ONCE IV PUSH ; Start 09/06/16 at 18:15; Stop 09/06/16 at 18:30; Status DC Atorvastatin Calcium (Lipitor) 80 mg HS PO Last administered on 09/23/16 21:51 ; Start 09/06/16 at 21:00 Lorazepam (Ativan Inj) 0.5 mg COATING MACHINE HELPER ONCE IV PUSH Last administered on 20:08; Start 09/07/16 at 20:15; Stop 09/07/16 at 20:16; Status DC Gadodiamide (Omniscan Pf Inj) 16 ml STK-MED ONCE IV Last administered on 20:45; Start 09/07/16 at 20:45; Stop 09/07/16 at 20:46; Status DC Lorazepam 0.5 mg 0.5 mg ONCE ONCE IV PUSH ; Start 09/08/16 at 13:00; Stop 09/08 at 13:01; Status DC Thiamine HCl/ Sodium Chloride (Thiamine Inj/NS Inj) 101 ml @ 101 mls/hr DAILY IV Last administered on 09/17/16 09:01; Start 09/09/16 at 10:00; Stop at 13:29; Status DC Propofol (Diprivan 200 Mg/20 ml Inj) 200 mg STK-MED ONCE IV ; Start 09/02/16 at 12:00; Stop 09/09/16 at 13:30; Status DC Ephedrine Sulfate (ePHEDrine/NS 25 MG/5 ML SYR) 25 mg STK-MED ONCE IV ; Start at 12:00; Stop 09/09/16 at 13:30; Status DC Phenylephrine HCl (Neosynephrine/ NS 1000 Mcg/10ml Syr) 1,000 mcg STK-MED ONCE IV ; Start 09/02/16 at 12:00; Stop 09/09/16 at 13:30; Status DC Ondansetron HCl 4 mg 4 mg STK-MED ONCE IV PUSH ; Start 09/02/16 at 12:00; Stop 09/09/16 at 13:30; Status DC Sodium Chloride 250 ml @ As Directed STK-MED ONCE IV ; Start 09/02/16 at 12:00 ; Stop 09/09/16 at 13:30; Status DC Parenteral Electrolytes (Normosol R Inj) 1,000 ml @ As Directed STK-MED ONCE IV ; Start 09/02/16 at 12:00; Stop 09/09/16 at 13:30; Status DC Levothyroxine Sodium (Synthroid) 175 mcg DAILY@06 PO ; Start 09/10/16 at 06:00; Status UNV Levothyroxine Sodium (Synthroid) 150 mcg DAILY@06 PO Last administered on 05:58; Start 09/10/16 at 06:00 Levothyroxine Sodium (Synthroid) 25 mcg DAILY@06 PO Last administered on 05:58; Start 09/10/16 at 06:00 Fentanyl Citrate (fentaNYL INJ) 100 mcg STK-MED ONCE IV ; Start 09/02/16 at 12: 00; Stop 09/10/16 at 12:44; Status DC Diphenhydramine HCl (Benadryl 2% Cream) 1 applic TID PRN TOPICAL ITCHING Last administered on 09/20/16 21:52; Start 09/14/16 at 14:00 Thiamine HCl (Vitamin B1) 100 mg DAILY PO Last administered on 09/24/16 08:31; Start 09/19/16 at 09:00 Potassium Chloride (KCl) 40 meq ONCE ONCE PO Last administered on 09/20/16 11 :53; Start 09/20/16 at 11:45; Stop 09/20/16 at 11:46; Status DC Potassium Chloride (KCl) 20 meq ONCE ONCE PO Last administered on 09/20/16 16 :14; Start 09/20/16 at 16:00; Stop 09/20/16 at 16:01; Status DC Triamcinolone Acetonide (Aristocort 0.1% Cream) 1 applic Q6HR TOPICAL Last administered on 09/24/16 08:31; Start 09/21/16 at 12:00 Potassium Chloride (KCl) 40 meq ONCE ONCE PO Last administered on 09/21/16 15 :54; Start 09/21/16 at 11:45; Stop 09/21/16 at 11:46; Status DC Potassium Chloride (KCl) 20 meq DAILY PO Last administered on 09/24/16 08:31; Start 09/22/16 at 09:00 A/P Assessment and Plan A/P -s/p right AKA for nonhealing ischemic wound. Stump well healing. cleared by vascular surgery for discharge. - Peripheral vascular disease with nonhealing left lower extremity wound with necrotic tendon, several necrotic toes-status post consultation with 3 vascular surgeons, plastic surgery, furnace room supervisor. family declines amputation. topical hyperbaric oxygen therapy (numo bag) purchased by family. this therapy can be given in hospital or at home, but is not FDA approved. - Severe neuropathic pain - continue Neurontin. -Severe acute metabolic encephalopathy- continues to improve -exhaustive workup has been performed including initial LP which showed pleocytosis with lymphocyte predominance, see previous notes - Appreciate input from neurology, hematology, palliative care - EEG 09/04 -moderate encephalopathy. -MRI brain with and without contrast 09/07 negative -2nd neuro opinion (requested per family) with Dr. Bauer appreciated, family declines repeat LP as patient improving - C. Diff colitis, s/p treatment with vancomycin. ID/Dr. Quispe. - UTI - Microbiology grew ESBL ( 09/14/16) -d/w today; no need to treat at this time. -Diabetes mellitus type II, currently with good Accu-Chek reads- Coverage with SSI. Monitor Accu-Cheks. Monitor for hypoglycemia. -Hypothyroidism - TSH on 09/08 22, Free T3 low at 0.72, free T4 nml. increased levothyroxine 150 g ->175. repeat TSH in several weeks. - Hypertension - Cardiomyopathy - EF 3540% -Continue carvedilol low dose. will consider JOYCE inhibitor if blood pressure will tolerate and renal function remained stable. currently normotensive. S/p cardiology eval. will defer to pcp to add JOYCE-I as outpatient if BP allows. -Acute kidney injury, resolved. -Chronic kidney disease stage III. creatinine stable around 1. -Severe malnutrition - dietary consult noted. Prealbumin is 7. Hopefully patient's by mouth intake will improve as she improves mental status. Consulted GI for eval for possible PEG tube. Started Marinol to stimulate appetite. Daughter Blanche wants to give the patient some time for improvement prior to considering PEG tube. Continue ensure, add multivitamin. - Abnormal uterine appearance - seen on abdominal and pelvis CT -pelvic ultrasound showing prominent endometrium, tumor markers negative, no history of vaginal bleeding -Heme on consult was requested per oncology service. Consider endometrial biopsy as outpatient. MRI abdomen canceled per family (did not want her sedated) . Anemia of chronic illness - stable, monitor transfuse prn Hb<7. decubitus ulcer- is being followed-up by wound care;previously d/w the lime kiln worker. Full code. Heparin SQ. Discharge Planning d/w the case management. awaiting discharge to rehab- hopefully soon. see med list. f/u with pcp, vascular surgery and wound care upon discharge. d/w the case management. previously d/w the vascular surgery. time spent 36 min. Conrad Clancy MD September 24, 2016 09:27
[2016-09-24] MEDS ORDERED: NOVOLOGSS SQ (09:35)
[2016-09-24] MEDS: DRONABINOL 2.5 MG CAP PO SCH (11:00)
[2016-09-24 12:00] VITALS: BP 126/60; PULSE 75; RESP 18; TEMP 98.8; O2SAT 97
== END 2016-09-24 14:08 | DRG 239 ==
LOC: N03B 15:32 → N04A 07-17 11:51 → N04B 07-20 19:58
PROVIDERS: ADMIT Internal Medicine; ATTEND Internal Medicine
PROC: 0HBLXZZ Excision of Left Lower Leg Skin, External Approach (ICD-10-PCS; 2016-07-31)
PROC: 0HBMXZZ Excision of Right Foot Skin, External Approach (ICD-10-PCS; 2016-07-31)
PROC: 0HBNXZZ Excision of Left Foot Skin, External Approach (ICD-10-PCS; principal; 2016-07-31 10:26)
PROC: 047K3ZZ Dilation of Right Femoral Artery, Percutaneous Approach (ICD-10-PCS; 2016-08-08)
PROC: 047M3ZZ Dilation of Right Popliteal Artery, Percutaneous Approach (ICD-10-PCS; 2016-08-08)
PROC: 30233N1 Transfusion of Nonautologous Red Blood Cells into Peripheral Vein, Percutaneous Approach (ICD-10-PCS; 2016-08-18)
PROC: 009U3ZX Drainage of Spinal Canal, Percutaneous Approach, Diagnostic (ICD-10-PCS; 2016-08-29)
PROC: 0Y6C0Z3 Detachment at Right Upper Leg, Low, Open Approach (ICD-10-PCS; 2016-09-02)
DX: E11.52 Type 2 diabetes mellitus with diabetic peripheral angiopathy with gangrene (principal); G92 Toxic encephalopathy; N17.0 Acute kidney failure with tubular necrosis; J96.91 Respiratory failure, unspecified with hypoxia; J69.0 Pneumonitis due to inhalation of food and vomit; E43 Unspecified severe protein-calorie malnutrition; I47.2 Ventricular tachycardia; A04.7 Enterocolitis due to Clostridium difficile; G93.1 Anoxic brain damage, not elsewhere classified; L03.116 Cellulitis of left lower limb; F05 Delirium due to known physiological condition; I42.0 Dilated cardiomyopathy; L97.319 Non-pressure chronic ulcer of right ankle with unspecified severity; N39.0 Urinary tract infection, site not specified; E87.1 Hypo-osmolality and hyponatremia; L03.115 Cellulitis of right lower limb; J98.11 Atelectasis; L03.221 Cellulitis of neck; F23 Brief psychotic disorder; C90.00 Multiple myeloma not having achieved remission; I31.3 Pericardial effusion (noninflammatory); R47.01 Aphasia; N18.3 Chronic kidney disease, stage 3 (moderate); L89.150 Pressure ulcer of sacral region, unstageable; I50.9 Heart failure, unspecified; I73.9 Peripheral vascular disease, unspecified; E03.9 Hypothyroidism, unspecified; L97.529 Non-pressure chronic ulcer of other part of left foot with unspecified severity; Z88.8 Allergy status to other drugs, medicaments and biological substances; Z91.041 Radiographic dye allergy status; Z91.010 Allergy to peanuts; R26.9 Unspecified abnormalities of gait and mobility; E11.649 Type 2 diabetes mellitus with hypoglycemia without coma; Z87.891 Personal history of nicotine dependence; I12.9 Hypertensive chronic kidney disease with stage 1 through stage 4 chronic kidney disease, or unspecified chronic kidney disease; E11.22 Type 2 diabetes mellitus with diabetic chronic kidney disease; E11.622 Type 2 diabetes mellitus with other skin ulcer; E11.621 Type 2 diabetes mellitus with foot ulcer; I25.9 Chronic ischemic heart disease, unspecified; E86.0 Dehydration; E66.9 Obesity, unspecified; Z79.891 Long term (current) use of opiate analgesic; F32.9 Major depressive disorder, single episode, unspecified; F41.9 Anxiety disorder, unspecified; Z78.1 Physical restraint status; Z86.718 Personal history of other venous thrombosis and embolism; Z80.0 Family history of malignant neoplasm of digestive organs; Z83.3 Family history of diabetes mellitus; E11.65 Type 2 diabetes mellitus with hyperglycemia; I95.9 Hypotension, unspecified; Z51.5 Encounter for palliative care; E11.49 Type 2 diabetes mellitus with other diabetic neurological complication; G47.33 Obstructive sleep apnea (adult) (pediatric); E87.6 Hypokalemia; D63.8 Anemia in other chronic diseases classified elsewhere; Z86.19 Personal history of other infectious and parasitic diseases; R56.9 Unspecified convulsions; R21 Rash and other nonspecific skin eruption; B96.20 Unspecified Escherichia coli [E. coli] as the cause of diseases classified elsewhere; E83.39 Other disorders of phosphorus metabolism; K42.9 Umbilical hernia without obstruction or gangrene; K76.9 Liver disease, unspecified; N85.2 Hypertrophy of uterus; D75.89 Other specified diseases of blood and blood-forming organs
CPT/HCPCS: 36430; 36600; 62270; 70450; 70551; 70553; 71010; 71250; 73630; 74176; 75710; 76856; 76937; 77003; 80048; 80053; 80061; 80069; 80074; 80076; 80164; 81001; 82105; 82140; 82272; 82306; 82378; 82550; 82552; 82595; 82607; 82728; 82784; 82805; 82945; 82948; 83516; 83520; 83540; 83550; 83605; 83735; 83880; 83883; 83970; 84100; 84132; 84134; 84145; 84155; 84157; 84165; 84181; 84425; 84439; 84443; 84481; 84484; 85007; 85014; 85018; 85025; 85027; 85384; 85597; 85598; 85610; 85613; 85652; 85730; 85810; 86021; 86038; 86077; 86140; 86147; 86160; 86255; 86256; 86304; 86334; 86376; 86403; 86430; 86592; 86618; 86703; 86788; 86800; 86850; 86870; 86880; 86900; 86901; 86920; 86922; 87015; 87040; 87070; 87077; 87086; 87102; 87116; 87147; 87186; 87205; 87206; 87493; 87529; 87641; 88307; 88311; 89051; 93005; 93306; 93922; 93971; 94060; 95819; A9579; C1725; C1769; J0692; J0696; J1100; J1170; J1200; J1205; J1580; J1630; J1644; J1720; J1815; J1885; J1953; J1956; J2020; J2060; J2185; J2250; J2270; J2370; J2405; J2543; J2765; J3010; J3370; J3411; J3480; J7030; J7040; J7050; J7120; J7512; P9016; P9047; Q0167; Q9967